=== PATIENT | male | born 1940 | race Caucasian/White ===

== ENCOUNTER 2016-05-12 16:08 | Inpatient (IN) | payer MEDICARE ==
[2016-05-12] MEDS ORDERED: NS 0.9% 1000 ML* 1,000 ML IV ONE (16:30)
--- NOTE | 2016-05-12 17:03 | RAD ---
INDICATION: Head injury. COMPARISON: Comparison is made with a prior CT of the brain from August 29, 2015. TECHNIQUE: Contiguous axial sections of the brain were obtained from the skull base to the vertex without contrast. FINDINGS: The ventricles, cisterns and sulci are enlarged consistent with age-related atrophy. No significant focal abnormality or mass effect is seen. There is no evidence for hemorrhage. No fracture is seen. There is mild mucosal thickening within the left maxillary sinus. The visualized portion of the paranasal sinuses and mastoid air cells otherwise appear clear. IMPRESSION: NO EVIDENCE FOR ACUTE INTRACRANIAL ABNORMALITY.
--- NOTE | 2016-05-12 17:20 | RAD ---
INDICATION: Weakness. COMPARISON: Comparison is made with prior chest x-ray study from August 29, 2015. TECHNIQUE: AP and lateral views of the chest were obtained. FINDINGS: Cardiac and mediastinal contours appear to be within normal limits. The lungs are underinflated. There is a small infiltrate at the right lung base. The lungs are otherwise clear. There is flattening of the diaphragms consistent with chronic obstructive pulmonary disease. No pleural effusion is present. IMPRESSION: 1. EXPIRATORY EXAM, SMALL RIGHT BASILAR FILTRATE. 2. COPD.
[2016-05-12 17:31] LABS: Hematocrit 37 % (42-52); Hemoglobin 12.3 g/dl (14.0-18.0); Mean Corpuscular HGB Conc 33 g/dl (31-36); Mean Corpuscular Hemoglobin 29 pg (27-31); Mean Corpuscular Volume 88 fL (80-94); Mean Platelet Volume 7 um3 (7.4-10.4); Red Cell Distribution Width 14 % (10.5-15); White Blood Count 9.6 10^3/ul (3.5-10.8)
[2016-05-12] MEDS ORDERED: Levofloxacin 750 MG IVPREMIX(* 750 MG/150 ML BAG IVPB ONE (17:37)
[2016-05-12 17:46] LABS: Albumin 3.8 g/dL (3.2-5.2); BUN/Creatinine Ratio 12.5 (8-20); Calcium 9.5 mg/dL (8.6-10.3); EGFR African American 48.9 (>60); Globulin 2.6 g/dL (2-4); Magnesium 1.9 mg/dL (1.9-2.7); Potassium 4.6 mmol/L (3.5-5.0); Total Bilirubin 0.4 mg/dL (0.2-1.0); Total Protein 6.4 g/dL (6.4-8.9)
[2016-05-12 18:13] LABS: TSH (Thyroid Stimulating Horm) 1.35 mcIU/mL (0.34-5.60)
--- NOTE | 2016-05-12 18:24 | RAD ---
INDICATION: Bilateral ankle injury. TECHNIQUE: 3 views of both ankles were obtained. FINDINGS: Right ankle: There is mild lateral soft tissue swelling. The bones are in normal alignment. No fracture is seen. Left ankle: There is a nondisplaced fracture of the posterior malleolus. There is widening of the medial ankle mortise. IMPRESSION: THERE IS A NONDISPLACED FRACTURE OF THE POSTERIOR MALLEOLUS OF THE LEFT ANKLE. THERE IS ALSO WIDENING OF THE MEDIAL ANKLE MORTISE OF THE LEFT ANKLE.
[2016-05-12] MEDS ORDERED: oxyCODONE TAB* 5 MG TAB PO ONE (18:27)
--- NOTE | 2016-05-12 19:40 | RAD ---
INDICATION: Left hip pain. COMPARISON: Comparison is made with a prior x-ray study of the left hip from April 21, 2016. TECHNIQUE: An AP view of the pelvis and frontal and lateral views of the left hip were obtained. FINDINGS: The patient is status post total left hip replacement surgery. The bones and prostheses are in normal alignment. No fracture is seen. There is moderate osteoarthritic change in the right hip. IMPRESSION: STATUS POST TOTAL LEFT HIP REPLACEMENT SURGERY, NO EVIDENCE FOR ACUTE FINDING.
[2016-05-12] MEDS ORDERED: Tetan/Diph/Pertus SYR(Tdap)* 0.5 ML SYR(BOOSTRIX) use SYR IM ONE (19:46)
[2016-05-12] MEDS ORDERED: Cyclobenzaprine TAB* 10 MG PO PRN (19:49)
[2016-05-12] MEDS ORDERED: Acetaminophen TAB* 325 MG PO PRN (19:53)
[2016-05-12] MEDS ORDERED: Albuterol HFA INHALER* 8 gm MDI INH PRN (19:53)
[2016-05-12] MEDS ORDERED: Docusate CAP* 100 MG PO SCH (21:00)
--- NOTE | 2016-05-12 21:20 | ED ---
Ke Berry Billy, scribed for Sean Pineda MD on 05/12/16 at 1633 . Head Injury - HPI Summary HPI Summary: Patient is a 75 year-old male coming to [facility] with a head injury following a mechanical fall half an hour [employer]. He states that he was in Dr. Alejandra's office ( urology) for a follow-up appointment when he tried to stand and then had a sudden onset of LLE weakness. He states that he has had generalized weakness, unsteady gait, and an inability to ambulate well in the last several weeks. He denies any CP, SOB, abd pain, or fevers/chills. He recently saw Dr. Benjamin in the wound clinic for a chronic wound on the RLE. Positive anticoag use. - History Of Current Complaint Chief Complaint: EDHeadInjury Stated Complaint: FALL/HEAD INJURY Time Seen by Provider: 05/12/16 16:15 Hx Obtained From: Patient Onset/Duration: Started Minutes Ago Onset of Pain: Immediate Severity Currently: Moderate Severity Initially: Moderate Pain Intensity: 4 Pain Scale Used: 0-10 Numeric Aggravating Factor(s): Other: - none Alleviating Factor(s): Other: - none Associated Signs And Symptoms: Other: - weakness, unsteady gait, difficult ambulating - Allergies/Home Medications Allergies/Adverse Reactions: Allergies Allergy/AdvReac Type Severity Reaction Status Date / Time Cephalexin [From Keflex] Allergy Intermediate GI Upset Verified 05/12/16 16:29 BANANAS Allergy Mild See Comment Uncoded 05/12/16 16:29 WALNUTS Allergy Mild See Comment Uncoded 05/12/16 16:29 Home Medications: Home Medications Acetaminophen [Tylenol] 650 mg PO Q6H PRN 05/12/16 [History Confirmed 05/12/16] Aspirin Low Dose CHEW TAB* [Aspirin Low Dose TAB*] 81 mg PO BEDTIME 05/12/16 [ History Confirmed 05/12/16] Carboxymethylcellulose-Glyceri [Refresh Optive 0.5-0.9 %] 1 drop BOTH EYES DAILY PRN 05/12/16 [History Confirmed 05/12/16] Cyclobenzaprine TAB* [Flexeril TAB*] 10 mg PO TID PRN 05/12/16 [History Confirmed 05/12/16] Cyclosporine 0.05% OPHTH (NF) [Restasis 0.05% OPHTH] 1 drop BOTH EYES BID [History Confirmed 05/12/16] Ferrous Sulfate TAB* 325 mg PO BEDTIME 05/12/16 [History Confirmed 05/12/16] Mometasone Furoate 1 apply TOPICAL DAILY 05/12/16 [History Confirmed 05/12/16] Nystatin (Topical) [Nystatin] 1 apply TOPICAL TID 05/12/16 [History Confirmed ] Cmoee-2-Zrtv Ethyl Esters (NF) [Lovaza (NF)] 1 cap PO BID 05/12/16 [History Confirmed 05/12/16] Pentoxifylline CR TAB* [TRENtal CR TAB*] 400 mg PO TID 05/12/16 [History Confirmed 05/12/16] Sennosides-Docusate Sodium [Senna-S 8.6-50 mg] 2 tab PO BEDTIME 05/12/16 [ History Confirmed 05/12/16] Silodosin(NF) [Rapaflo(NF)] 8 mg PO BEDTIME 05/12/16 [History Confirmed 05/12/16 ] Sulfamethox/Trimethoprim DS* [Bactrim DS 800/160 TAB*] 1 tab PO BID 05/12/16 [ History Confirmed 05/12/16] PMH/Surg Hx/FS Hx/Imm Hx Endocrine/Hematology History: Reports: Hx Diabetes, Hx Thyroid Disease Cardiovascular History: Reports: Hx Angina, Hx Angioplasty, Hx Coronary Artery Disease, Hx Hypercholesterolemia, Hx Hypertension, Other Cardiovascular Problems /Disorders - HISTORY OF ATRIAL FIBRILLARION Denies: Hx Congestive Heart Failure, Hx Myocardial Infarction, Hx Valvular Heart Disease Respiratory History: Reports: Hx Chronic Obstructive Pulmonary Disease (COPD), Hx Sleep Apnea Denies: Hx Asthma GI History: Reports: Hx Gall Bladder Disease - removed, Hx Gastroesophageal Reflux Disease, Hx Hiatal Hernia, Hx Ulcer, Other GI Disorders - Barretts esophagus History: Denies: Hx Renal Disease Musculoskeletal History: Reports: Hx Arthritis - ARHTHRITIS, Hx Rheumatoid Arthritis, Hx Osteoporosis Sensory History: Reports: Hx Cataracts - RIGHT EYE, Hx Contacts or Glasses Denies: Hx Hearing Aid Opthamlomology History: Reports: Hx Cataracts - RIGHT EYE, Hx Contacts or Glasses Neurological History: Reports: Other Neuro Impairments/Disorders - diabetic neuropathy (feet) - Cancer History Cancer Type, 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 - Surgical History Surgery Procedure, Year, and Place: 10 CARDIAC STENTS, CHOLECYSTECTOMY, APPENDECTOMY, left hip replacement, ESOPHAGEAL CA TUMOR REMOVED 2015 Hx Anesthesia Reactions: No - Immunization History Date of Tetanus Vaccine: ukwn Infectious Disease History: Yes Infectious Disease History: Reports: Hx Hepatitis - CURED Denies: Hx Clostridium Difficile, Hx Human Immunodeficiency Virus (HIV), Hx of Known/Suspected MRSA, Hx Shingles, Hx Tuberculosis, Hx Known/Suspected VRE, Hx Known/Suspected VRSA, History Other Infectious Disease, Traveled Outside the [place] in Last 30 Days - Family History Known Family History: Positive: None - Social History Alcohol Use: Rare Substance Use Type: Reports: None Smoking Status (MU): Former Smoker Type: Cigarettes Amount Used/How Often: 1.5ppd Length of Time of Smoking/Using Tobacco: 50 years Have You Smoked in the Last Year: No Review of Systems Negative: Fever, Chills Negative: Chest Pain Negative: Shortness Of Breath Negative: Abdominal Pain Neurological: Other - unsteady gait, difficulty ambulating Positive: Weakness All Other Systems Reviewed And Are Negative: Yes Physical Exam - Summary Physical Exam Summary: VITAL SIGNS: Reviewed. GENERAL: Patient is a well developed and nourished pale male who is lying comfortable in the stretcher. Patient is not in any acute respiratory distress. HEAD AND FACE: Positive l cm superficial laceration in the occipital area. No ecchymosis, hematomas or skull depressions. EYES: PERRLA, EOMI x 2, No injected conjunctiva, no nystagmus. EARS: Hearing grossly intact. Ear canals and tympanic membranes are within normal limits. MOUTH: Oropharynx within normal limits. NECK: Supple, trachea is midline, no adenopathy, no JVD, no carotid bruit, no c- spine tenderness, neck with full ROM. CHEST: Symmetric, no tenderness at palpation LUNGS: Clear to auscultation bilaterally. No wheezing or crackles. CVS: Regular rate and rhythm, S1 and S2 present, no murmurs or gallops appreciated. ABDOMEN: Soft, non-tender. No rebound no guarding, and no masses palpated. Bowel sounds are normal. EXTREMITIES: right LE with a diabetic ulcer and its C/D/I. left ankle with decrease ROM secondary to pain. NEURO: Alert and oriented x 3. No acute neurological deficits. Speech is normal and follows commands. SKIN: Dry and warm Triage Information Reviewed: Yes Vital Signs On Initial Exam: Initial Vitals Temp Pulse Resp BP Pulse Ox 97.5 F 75 16 116/60 95 05/12/16 16:22 05/12/16 16:22 05/12/16 16:22 05/12/16 16:22 05/12/16 16:22 Vital Signs Reviewed: Yes Procedures - Procedure Summary Procedure Summary: Left ankle splint. After the splint, NV intact. Also: 4 jenn in the laceration in the skull. Diagnostics - Vital Signs Vital Signs Temp Pulse Resp BP Pulse Ox 05/12/16 16:22 97.5 F 75 16 116/60 95 - Laboratory Lab Results: Lab Results 05/12/16 05/12/16 05/12/16 Range/Units 17:15 17:15 17:15 WBC 9.6 (3.5-10.8) 10^3/ul RBC 4.20 (4.0-5.4) 10^6/ul Hgb 12.3 L (14.0-18.0) g/dl Hct 37 L (42-52) % MCV 88 (80-94) fL MCH 29 (27-31) pg MCHC 33 (31-36) g/dl RDW 14 (10.5-15) % Plt Count 233 (150-450) 10^3/ul MPV 7 L (7.4-10.4) um3 Neut % (Auto) 81.9 (38-83) % Lymph % (Auto) 9.4 L (25-47) % [place] % (Auto) 6.3 (1-9) % Eos % (Auto) 1.6 (0-6) % Baso % (Auto) 0.8 (0-2) % Absolute Neuts (auto) 7.9 H (1.5-7.7) 10^3/ul Absolute Lymphs (auto) 0.9 L (1.0-4.8) 10^3/ul Absolute Monos (auto) 0.6 (0-0.8) 10^3/ul Absolute Eos (auto) 0.2 (0-0.6) 10^3/ul Absolute Basos (auto) 0.1 (0-0.2) 10^3/ul Absolute Nucleated RBC 0.01 10^3/ul Nucleated RBC % 0.1 INR (Anticoag Therapy) (0.89-1.11) Sodium 132 L (133-145) mmol/L Potassium 4.6 (3.5-5.0) mmol/L Chloride 102 (101-111) mmol/L Carbon Dioxide 24 (22-32) mmol/L Anion Gap 6 (2-11) mmol/L BUN 22 (6-24) mg/dL Creatinine 1.76 H (0.67-1.17) mg/dL Est GFR ( Amer) 48.9 (>60) Est GFR (Non-Af Amer) 38.0 (>60) BUN/Creatinine Ratio 12.5 (8-20) Glucose 156 H (70-100) mg/dL Lactic Acid 1.5 (0.5-2.0) mmol/L Calcium 9.5 (8.6-10.3) mg/dL Magnesium 1.9 (1.9-2.7) mg/dL Total Bilirubin 0.40 (0.2-1.0) mg/dL AST 18 (13-39) U/L ALT 23 (7-52) U/L Alkaline Phosphatase 55 (34-104) U/L Troponin I 0.00 (<0.04) ng/mL B-Natriuretic Peptide ( - 100) pg/mL Total Protein 6.4 (6.4-8.9) g/dL Albumin 3.8 (3.2-5.2) g/dL Globulin 2.6 (2-4) g/dL Albumin/Globulin Ratio 1.5 (1-3) TSH 1.35 (0.34-5.60) mcIU/mL 05/12/16 05/12/16 Range/Units 17:15 17:15 WBC (3.5-10.8) 10^3/ul RBC (4.0-5.4) 10^6/ul Hgb (14.0-18.0) g/dl Hct (42-52) % MCV (80-94) fL MCH (27-31) pg MCHC (31-36) g/dl RDW (10.5-15) % Plt Count (150-450) 10^3/ul MPV (7.4-10.4) um3 Neut % (Auto) (38-83) % Lymph % (Auto) (25-47) % [place] % (Auto) (1-9) % Eos % (Auto) (0-6) % Baso % (Auto) (0-2) % Absolute Neuts (auto) (1.5-7.7) 10^3/ul Absolute Lymphs (auto) (1.0-4.8) 10^3/ul Absolute Monos (auto) (0-0.8) 10^3/ul Absolute Eos (auto) (0-0.6) 10^3/ul Absolute Basos (auto) (0-0.2) 10^3/ul Absolute Nucleated RBC 10^3/ul Nucleated RBC % INR (Anticoag Therapy) 2.49 H (0.89-1.11) Sodium (133-145) mmol/L Potassium (3.5-5.0) mmol/L Chloride (101-111) mmol/L Carbon Dioxide (22-32) mmol/L Anion Gap (2-11) mmol/L BUN (6-24) mg/dL Creatinine (0.67-1.17) mg/dL Est GFR ( Amer) (>60) Est GFR (Non-Af Amer) (>60) BUN/Creatinine Ratio (8-20) Glucose (70-100) mg/dL Lactic Acid (0.5-2.0) mmol/L Calcium (8.6-10.3) mg/dL Magnesium (1.9-2.7) mg/dL Total Bilirubin (0.2-1.0) mg/dL AST (13-39) U/L ALT (7-52) U/L Alkaline Phosphatase (34-104) U/L Troponin I (<0.04) ng/mL B-Natriuretic Peptide 45 ( - 100) pg/mL Total Protein (6.4-8.9) g/dL Albumin (3.2-5.2) g/dL Globulin (2-4) g/dL Albumin/Globulin Ratio (1-3) TSH (0.34-5.60) mcIU/mL Result Diagrams: 05/12/16 17:15 05/12/16 17:15 Lab Statement: Any lab studies that have been ordered have been reviewed, and results considered in the medical decision making process. - Radiology CXR Radiology Interpretation Completed By: Radiologist - 1. EXPIRATORY EXAM, SMALL RIGHT BASILAR FILTRATE. 2. COPD. ankle xray Radiology Interpretation Completed By: Radiologist - THERE IS A NONDISPLACED FRACTURE OF THE POSTERIOR MALLEOLUS OF THE LEFT ANKLE. THERE IS ALSO WIDENING OF THE MEDIAL ANKLE MORTISE OF THE LEFT ANKLE. hip xray Radiology Interpretation Completed By: Radiologist - STATUS POST TOTAL LEFT HIP REPLACEMENT SURGERY, NO EVIDENCE FOR ACUTE FINDING. - CT brain CT Interpretation: No Acute Changes CT Interpretation Completed By: Radiologist - EKG 1655 EKG Interpretation: NSR 71 bpm, no ST elevation, diffuse ST abnormalities. Re-Evaluation - Re-Evaluation First Eval Re-Evaluation Time: 18:48 Comment: See procedure note for more details. Patient is now c/o left hip/ pelvic pain. Head Injury Course/Dx Assessment/Plan: Patient is a 75 year-old male coming to [facility] with a head injury following a mechanical fall half an hour [employer]. He states that he was in Dr. Alejandra's office (urology) for a follow-up appointment when he tried to stand and then had a sudden onset of LLE weakness. He states that he has had generalized weakness, unsteady gait, and an inability to ambulate well in the last several weeks. He denies any CP, SOB, abd pain, or fevers/chills. He recently saw Dr. Benjamin in the wound clinic for a chronic wound on the RLE. Positive anticoag use. Bloodwork WNL except for decresaed H&H of 12.3/37. INR is 2.49. Sodium of 132, creatinine 1.76, glucose 156. CT brain shows no acute intracranial pathology. CXR shows right lower lobe infiltrate consistent with pneumonia. Ankle x-ray shows nondisplaced fx of the posterior malleolus with a widening mortise. Pelvic/hip x-ray shows no acute findings. In the ER course, the patient was given IV fluids, the patient was given oxycodone for pain. I placed 4x jenn in the laceration of approximately 1cm in the occipital area. I placed a posterior splint in the LLE since the patient had an ankle fracture. After the splint, I checked the extremity, which was NV intact. The patient has a basleine decreased capillary fill, secondary to peripheral vascular disease. The patient was also complaining of left hip and pelvis pain afterwards, therefore I ordered an x-ray of the hip and pelvis, which showed no acute fractures or dislocations. The patient was also given levaquin for pneumonia. He was also given boostrix for tetanus booster. At this point, I discussed the case with Dr. Mullins (hospitalist) who accepted the patient for admission and further workup and management. He is hemodynamically stable, A&Ox3. - Diagnoses Differential Diagnosis/HQI/PQRI: Cerebral Contusion, Contusion, Hematoma, Intracranial Bleed, Laceration Provider Diagnoses: Accidental fall, Pneumonia, Ankle fracture, Weakness - Physician Notifications Discussed Care Of Patient With: Dr. Mullins (hospitalist) @ 1830: accepts admission. Dr. Hua (orthopedics) @ 195: informed of the patient's presentation, agrees to consult. Discharge - Discharge Plan Condition: Stable Disposition: ADMITTED TO [facility] The documentation as recorded by the Ke candelario Billy accurately reflects the service I personally performed and the decisions made by me, Sean Pineda MD.
[2016-05-12] MEDS: Amiodarone TAB* 200 MG PO SCH (21:33)
[2016-05-12] MEDS: Sulfamethox/Trimethoprim DS 800/160* TAB PO SCH (21:33)
[2016-05-12] MEDS: Finasteride TAB* 5 MG PO SCH (21:33)
[2016-05-12] MEDS: Furosemide TAB* 20 MG PO SCH (21:33)
[2016-05-12] MEDS: Omeprazole CAP* 20 MG PO SCH (21:34)
[2016-05-12] MEDS: LORazepam TAB(*) 1 MG PO SCH (21:34)
[2016-05-12] MEDS: Senna TAB PO SCH (21:34)
[2016-05-12] MEDS: Aspirin Low Dose CHEW TAB* 81 MG PO SCH (21:34)
[2016-05-12] MEDS: Ferrous Sulfate TAB* 325 MG PO SCH (21:34)
[2016-05-12] MEDS: Potassium Chloride LIQUID* 20 MEQ PACKET PO SCH (21:35)
[2016-05-12] MEDS: oxyCODONE TAB* 5 MG TAB PO PRN (21:38)
[2016-05-12] MEDS: Insulin GLARGINE(*) 1 UNITS UNIT SUBCUT SCH (21:57)
[2016-05-12] MEDS: Gemfibrozil TAB* 600 MG PO SCH (21:58)
[2016-05-12] MEDS: Nystatin TOP POWDER* 15 GM BTL TOPICAL SCH (22:00)
[2016-05-12] MEDS: Pentoxifylline CR TAB* 400 MG PO SCH (22:07)
--- NOTE | 2016-05-12 22:32 | HP ---
HISTORY AND PHYSICAL: DATE OF ADMISSION: 05/12/16 PCP: Dr. Cha. CHIEF COMPLAINT: Fall. HISTORY OF PRESENT ILLNESS: Mr. Bryant is a 75-year-old man with a past medical history of AFib, on Coumadin, CAD, status post multiple stents, IBS, esophageal cancer, diabetes, anxiety, COPD, chronic pain, who presents to the hospital after a fall at Dr. Alejandra's clinic. The patient was at a routine followup with Dr. Alejandra today. He stated he was walking across the room to go to sit down when he felt his left leg go out from underneath him. He fell down to the ground striking his head on a cabin on the way down and sustaining a scalp laceration. The patient denied any preceding lightheadedness, dizziness, chest pain, shortness of breath, or palpitations. He had no loss of consciousness. He states he did not have any significant pain initially; however, when EMS was called and they tried to get him into the ambulance, he had significant bilateral lower extremity pain and subsequently more localized to the left ankle and left hip. The patient reports that he was hospitalized in [facility] earlier this year after he had what he calls a left femur fracture as well as subsequently torn his right quadriceps. Since then, he has been mostly house bound and has had fairly significant difficulties ambulating. He has been using a walker, although he states he is still able to get up and down the stairs at home. He reports a mild cough over the last 3 days that has been mostly dry, although he feels like it could be productive if he was able to bring up the phlegm. He has had no recent fever, chills, nausea, vomiting, abdominal pain and has been reporting good p.o. intake. No dysuria. No bright red blood per rectum or melena. In the emergency department, he was found to have a posterior malleolus fracture of the ankle. Remainder of the imaging was negative. PAST MEDICAL HISTORY: CAD, status post multiple stents; AFib, on Coumadin; IBS ; esophageal cancer; diabetes; anxiety; COPD; chronic pain. PAST SURGICAL HISTORY: Left total hip arthroplasty, appendectomy, tonsillectomy , TURP. HOME MEDICATIONS: 1. Aspirin 81 mg by mouth at bedtime. 2. Tylenol 650 mg by mouth every 6 hours as needed for pain. 3. Ferrous sulfate 325 mg by mouth at bedtime. 4. Refresh 1 drop in both eyes daily as needed for dry eyes. 5. Senna 2 tablets by mouth at bedtime. 6. Mometasone 1 application topical daily. 7. Oxycodone 5 to 10 mg by mouth every 4 to 6 hours as needed for pain. 8. Potassium chloride 20 mEq by mouth 2 times daily. 9. Ativan 1 mg by mouth 3 times daily. 10. Pentoxifylline 400 mg by mouth 3 times daily. 11. Flexeril 10 mg by mouth 3 times daily. 12. Restasis 1 drop in both eyes 2 times daily. 13. Nystatin 1 application topical daily. 14. Bactrim 1 tablet by mouth 2 times daily. 15. Lovaza 1 capsule by mouth 2 times daily. 16. Combivent 1 puff inhaled every 6 hours as needed for shortness of breath or wheezing. 17. Finasteride 5 mg by mouth daily. 18. Amiodarone 200 mg by mouth 2 times daily. 19. Lasix 20 mg by mouth 2 times daily. 20. Folate 1 mg by mouth daily. 21. Fluorometholone 0.1% one drop in the left eye 2 times daily. 22. Gemfibrozil 600 mg by mouth 2 times daily. 23. Synthroid 187.5 mcg by mouth daily. 24. Afrin 1 spray nasal as needed for congestion. 25. Nitroglycerin 0.4 mg sublingual as needed for chest pain. 26. Crestor 40 mg by mouth nightly. 27. Protonix 40 mg by mouth 3 times daily. 28. Rapaflo 8 mg by mouth at bedtime. 29. Glipizide 5 mg by mouth 2 times daily. 30. Celecoxib 200 mg by mouth daily. 31. Warfarin, 3-day sequence of 2.5 mg followed by 1.25 mg, then another 1.25 mg. 32. Metanx 25 mg by mouth nightly. 33. Lantus 34 units subcutaneous nightly. ALLERGIES: The patient reports allergy to KEFLEX, causes nausea and vomiting. FAMILY HISTORY: Significant for mother with diabetes and Alzheimer's who at 90. Father with colon cancer. SOCIAL HISTORY: He was a smoker for 40 years about a pack and half per day. Denies any alcohol or illicit drug use. REVIEW OF SYSTEMS: Twelve point review of systems is negative except for that as noted in the HPI. PHYSICAL EXAMINATION GENERAL: The patient is an elderly man, lying in bed, in no apparent distress. VITAL SIGNS: On admission temperature 97.5, heart rate 75, respiratory rate 16 , O2 saturation 95% on room air, blood pressure 116/60. HEENT: Pupils are constricted, slightly reactive to light. Anicteric sclerae. Dry mucous membranes. No cervical adenopathy. LUNGS: Some mild rales in the left base, otherwise clear. CARDIOVASCULAR: Regular rate and rhythm. S1, S2 present. No murmurs, gallops , or rubs. ABDOMEN: Soft, nontender, nondistended. Bowel sounds positive. EXTREMITIES: Bilateral lower extremity edema. Right lower extremity is in a compression stocking. Left lower extremity with Christian wrap and splint in place. SKIN: Warm, dry, well perfused. Did not assess right lower extremity wound. The patient has a scalp laceration, which has been stapled with a small amount of blood oozing. NEUROLOGIC: The patient is alert and oriented x3. No focal neurological deficits. DIAGNOSTIC STUDIES/LAB DATA: White blood cell count of 9.6, hematocrit of 37, platelets of 233. INR of 2.49. Sodium 132, potassium 4.6, chloride 102, carbon dioxide 24, BUN 22, creatinine 1.76, glucose 156. Lactic acid 1.5. Troponin 0.00. LFTs within normal limits. B-natriuretic peptide 45. TSH 1.35. EKG shows normal sinus rhythm with first-degree AV block, no ST changes. CT of the head shows no acute changes. Chest x-ray personally reviewed shows possible right basilar infiltrate. Ankle x-ray shows posterior malleolus nondisplaced fracture. Hip x-ray shows no fracture. ASSESSMENT AND PLAN: Mechanical fall with posterior malleolus fracture and mild acute kidney injury and chronic kidney disease in a 75-year-old male with a past medical history of atrial fibrillation, on Coumadin, coronary artery disease, status post multiple stents, irritable bowel syndrome, esophageal cancer, diabetes, chronic obstructive pulmonary disease, anxiety, and recently diagnosed right lower extremity wound. 1. Ankle fracture. Dr. Pineda contacted Orthopedics. No surgical intervention is necessary at this time. Dr. Pineda splinted the patient in the emergency department, analgesia, PT evaluation. 2. Right lower extremity wound. We will try to obtain wound care dressing recommendations from the wound clinic. The patient was just placed on Bactrim for presumed cellulitis. We will continue this for now. This may be contributing to his elevated creatinine. 3. Questionable pneumonia. The patient's symptoms and labs seem not entirely consistent with pneumonia. He received 1 dose of Levaquin in the emergency department. We will hold on additional antibiotics for now. We will check a procalcitonin. 4. Atrial fibrillation. Continue home Coumadin and amiodarone. 5. History of coronary artery disease. Continue aspirin. We will place the patient on atorvastatin while hospitalized. 6. Benign prostatic hypertrophy. Continue finasteride and Rapaflo. 7. Diabetes. Continue glipizide and home Lantus 34 units subcu nightly. 8. Chronic obstructive pulmonary disease. Continue pentoxifylline and albuterol in place of home Combivent. 9. DVT prophylaxis, Coumadin. 10. Code status. The patient is a full code. Reports that his healthcare proxy is his , Shoaib Bryant, who cab be reached at [phone]. TIME SPENT: Total time spent on this admission was 55 minutes with over half the time spent [id number] with the patient counseling and coordinating care. CC: Dr. Cha * [id number]/CPS #: [id number] [facility]OSPITALAdam
[2016-05-12 23:33] LABS: Urine Bilirubin Negative (Negative); Urine Glucose Negative (Negative); Urine Nitrite Negative (Negative)
[2016-05-13] MEDS: Silodosin(NF) 8 MG CAP PO SCH ×2 (01:49→21:09)
[2016-05-13] MEDS: oxyCODONE TAB* 5 MG TAB PO PRN ×2 (04:51→21:00)
[2016-05-13] MEDS ORDERED: LORazepam TAB(*) 1 MG PO ONE (05:00)
[2016-05-13] MEDS: Levothyroxine TAB* 75 MCG TAB PO SCH (06:00)
[2016-05-13 06:36] LABS: BUN/Creatinine Ratio 10.6 (8-20); Calcium 9.1 mg/dL (8.6-10.3); EGFR African American 45.3 (>60); EGFR Non-African American 35.3 (>60); Potassium 4.2 mmol/L (3.5-5.0)
[2016-05-13] MEDS: Potassium Chloride LIQUID* 20 MEQ PACKET PO SCH ×2 (08:11→20:52)
[2016-05-13] MEDS: Pentoxifylline CR TAB* 400 MG PO SCH ×3 (08:11→21:10)
[2016-05-13] MEDS: celeCOXIB CAP* 200 MG PO SCH (08:12)
[2016-05-13] MEDS: LORazepam TAB(*) 1 MG PO SCH ×3 (08:12→20:48)
[2016-05-13] MEDS: Furosemide TAB* 20 MG PO SCH ×2 (08:12→20:47)
[2016-05-13] MEDS: Sulfamethox/Trimethoprim DS 800/160* TAB PO SCH ×2 (08:12→20:47)
[2016-05-13] MEDS: Omeprazole CAP* 20 MG PO SCH ×2 (08:12→20:47)
[2016-05-13] MEDS: Gemfibrozil TAB* 600 MG PO SCH ×2 (08:12→21:10)
[2016-05-13] MEDS: Folic Acid TAB* 1 MG PO SCH (08:12)
[2016-05-13] MEDS: glipiZIDE TAB.XL* 5 MG PO SCH ×2 (08:13→17:25)
[2016-05-13] MEDS: Amiodarone TAB* 200 MG PO SCH ×2 (08:14→20:47)
[2016-05-13] MEDS: Nystatin TOP POWDER* 15 GM BTL TOPICAL SCH ×3 (08:14→21:10)
--- NOTE | 2016-05-13 08:15 | RAD ---
HISTORY: Left fibular fracture COMPARISONS: Left ankle performed May 12, 2016 VIEWS: 4, Frontal and lateral views of the left ankle FINDINGS: BONE DENSITY: Normal. BONES: There is nondisplaced fracture of the medial malleolus. There is a nondisplaced fracture of the posterior tibia. There is a nondisplaced oblique fracture of the proximal fibula. The patient is status post internal fixation of the first metatarsal JOINTS: There is no arthropathy. ALIGNMENT: There is no dislocation. SOFT TISSUES: There is peripheral arterial calcification OTHER FINDINGS: None. IMPRESSION: NONDISPLACED FRACTURES OF THE PROXIMAL LEFT FIBULA AND THE DISTAL LEFT TIBIA
--- NOTE | 2016-05-13 10:28 | PN ---
Subjective Date of Service: 05/13/16 Interval History: Patient seen this morning. Did not sleep well but otherwise no complaints. No fever or chills. Understands he has additional fractures noted on this mornings imaging that may need surgical intervention but this needs to be clarified with Dr. Hua. Family History: Unchanged from Admission Social History: Unchanged from Admission Past Medical History: Unchanged from Admission Objective Active Medications: Acetaminophen (Tylenol Tab*) 650 mg PO Q6H PRN Albuterol (Ventolin Hfa Inhaler*) 2 puff INH Q4H PRN Amiodarone HCl (Cordarone Tab*) 200 mg PO BID MARK Aspirin (Aspirin Low Dose Tab*) 81 mg PO BEDTIME MARK Atorvastatin Calcium (Lipitor*) 80 mg PO QPM MARK Celecoxib (Celebrex Cap*) 200 mg PO QAM MARK Cyclobenzaprine HCl (Flexeril Tab*) 10 mg PO TID PRN Docusate Sodium (Colace Cap*) 109 mg PO BEDTIME MARK Ferrous Sulfate (Ferrous Sulfate Tab*) 325 mg PO BEDTIME MARK Finasteride (Proscar Tab*) 5 mg PO QPM MARK Folic Acid (Folvite Tab*) 1 mg PO QAM MARK Furosemide (Lasix Tab*) 20 mg PO BID MARK Gemfibrozil (Lopid Tab*) 600 mg PO BID MARK Glipizide (Glucotrol Xl*) 5 mg PO BID WITH MEALS MARK Insulin Glargine (Lantus(*)) 34 units SUBCUT 1700 MARK Levothyroxine Sodium (Synthroid Tab*) 187.5 mcg PO 0600 MARK Lorazepam (Ativan Tab(*)) 1 mg PO TID MARK Nystatin (Nystatin Top Powder*) 1 applic TOPICAL TID MARK Omeprazole (Prilosec Cap*) 20 mg PO BID MARK Oxycodone HCl (Roxycodone Tab*) 5 mg PO Q6H PRN Pentoxifylline (Trental Cr Tab*) 400 mg PO TID MARK Potassium Chloride (Klor-Con Liquid*) 20 meq PO BID MARK Senna (Senokot Tab*) 2 tab PO BEDTIME MARK Silodosin (Rapaflo(Nf)) 8 mg PO BEDTIME MARK Trimethoprim/Sulfamethoxazole (Bactrim Ds 800/160 Tab*) 1 tab PO BID MARK Warfarin Sodium (Coumadin Tab(*)) 1.25 mg PO DAILY MARK Vital Signs 05/12/16 05/12/16 05/12/16 18:49 19:00 20:00 Temperature Pulse Rate 72 71 68 Respiratory 21 22 24 Rate Blood Pressure 131/71 93/79 (mmHg) O2 Sat by Pulse 94 92 91 Oximetry 05/12/16 05/12/16 05/12/16 21:00 21:34 21:38 Temperature 97.6 F Pulse Rate 70 Respiratory 18 18 18 Rate Blood Pressure 127/71 (mmHg) O2 Sat by Pulse 96 Oximetry 05/12/16 05/12/16 05/13/16 23:23 23:34 00:12 Temperature 97.7 F Pulse Rate 68 Respiratory 20 20 20 Rate Blood Pressure 123/66 (mmHg) O2 Sat by Pulse 94 Oximetry Oxygen Devices in Use Now: None Appearance: Elderly, M, laying in bed in NAD Eyes: No Scleral Icterus Ears/Nose/Mouth/Throat: Mucous Membranes Moist Neck: NL Appearance and Movements; NL JVP Respiratory: Symmetrical Chest Expansion and Respiratory Effort, - - Mild LLL rales, otherwise clear Cardiovascular: NL Sounds; No Murmurs; No JVD, RRR Abdominal: - - Mild distension, non-tender, BS+ Lymphatic: No Cervical Adenopathy Extremities: - - Mild B/L LE edema, LLE in ALE wrap/sling, RLE in compression stocking Skin: - - Did not assess RLE wound Neurological: Alert and Oriented x 3 Result Diagrams: 05/12/16 17:15 05/13/16 06:07 Additional Lab and Data: Microbiology and Other Data: Microbiology 05/12/16 19:54 Nasal Screen MRSA (PCR)(VERONICA) - Final Nasal Mrsa Negative Assess/Plan/Problems-Billing Assessment: Mechanical fall with multiple LLE fractures (fibula, tibia, posterior malleolus ) in a 75 yo M with hx of AFib on coumadin, CAD s/p multiple stents, esophageal cancer, COPD, IBS, anxiety, CKD and recently diagnosed RLE wound - Patient Problems (1) Closed fracture of left lower extremity Current Visit: Yes Comment: Initial imaging showed posterior malleolus fracture, patient evaluated by Dr. Hua and LLE x-ray showed distal fibula and tibia fx as well. Will touch base with Dr. Hua to see if patient needs operative intervention. NWB for now. Continue analgesia. (2) Wound of right lower extremity Current Visit: Yes Comment: Dressing as per wound clinic, will evaluate at next dressing change. Continue outpatient Bactrim for now. (3) Atrial fibrillation Current Visit: No Comment: Continue Amiodarone. INR supratherapeutic, will hold Coumadin for now (4) CAD (coronary artery disease) Current Visit: No Comment: Continue ASA, statin (5) CKD (chronic kidney disease) Current Visit: Yes Comment: Suspect creatinine is elevated due to Bactrim. Continue to monitor (6) BPH (benign prostatic hyperplasia) Current Visit: Yes Comment: Continue finasteride and rapaflo (7) Diabetes mellitus Current Visit: No Comment: Continue Lantus and Glipizide (8) COPD (chronic obstructive pulmonary disease) Current Visit: Yes Comment: Continue albuterol, pentoxyfilline (9) DVT prophylaxis Current Visit: No Comment: Coumadin
[2016-05-13] MEDS ORDERED: Warfarin TAB(*) 2.5 MG PO SCH (17:00)
[2016-05-13] MEDS: Insulin GLARGINE(*) 1 UNITS UNIT SUBCUT SCH (17:24)
[2016-05-13] MEDS: Atorvastatin* 80 MG TAB PO SCH (17:25)
[2016-05-13] MEDS: Finasteride TAB* 5 MG PO SCH (17:25)
[2016-05-13] MEDS: Senna TAB PO SCH (20:46)
[2016-05-13] MEDS: Ferrous Sulfate TAB* 325 MG PO SCH (20:47)
[2016-05-13] MEDS: Docusate CAP* 100 MG PO SCH (20:47)
[2016-05-13] MEDS: Aspirin Low Dose CHEW TAB* 81 MG PO SCH (20:48)
[2016-05-14] MEDS: Levothyroxine TAB* 75 MCG TAB PO SCH (06:10)
[2016-05-14 06:45] LABS: BUN/Creatinine Ratio 10.1 (8-20); Calcium 9.5 mg/dL (8.6-10.3); EGFR African American 42.5 (>60)
[2016-05-14] MEDS: LORazepam TAB(*) 1 MG PO SCH ×4 (07:18→21:09)
[2016-05-14] MEDS: Potassium Chloride LIQUID* 20 MEQ PACKET PO SCH ×2 (08:45→21:10)
[2016-05-14] MEDS ORDERED: Polyethylene Glycol 3350* 17 GM PACKET PO PRN (08:45)
[2016-05-14] MEDS ORDERED: Magnesium Hydroxide LIQ* 30 ML UDC PO PRN (08:45)
[2016-05-14] MEDS: Furosemide TAB* 20 MG PO SCH (08:46)
[2016-05-14] MEDS: Gemfibrozil TAB* 600 MG PO SCH ×2 (08:46→21:08)
[2016-05-14] MEDS: Amiodarone TAB* 200 MG PO SCH ×2 (08:46→21:08)
[2016-05-14] MEDS: glipiZIDE TAB.XL* 5 MG PO SCH ×2 (08:46→17:10)
[2016-05-14] MEDS: celeCOXIB CAP* 200 MG PO SCH (08:46)
[2016-05-14] MEDS: Omeprazole CAP* 20 MG PO SCH ×2 (08:46→21:08)
[2016-05-14] MEDS: Sulfamethox/Trimethoprim DS 800/160* TAB PO SCH (08:47)
[2016-05-14] MEDS: Pentoxifylline CR TAB* 400 MG PO SCH ×3 (08:47→21:09)
[2016-05-14] MEDS: Folic Acid TAB* 1 MG PO SCH (08:47)
[2016-05-14] MEDS: Nystatin TOP POWDER* 15 GM BTL TOPICAL SCH ×3 (08:47→21:10)
--- NOTE | 2016-05-14 10:52 | RAD ---
Indication: Evaluate for hydronephrosis, renal failure. Real-time sonography of the kidneys was performed. The right kidney measures 12.0 x 5.5 x 5.3 cm. There is a inferior medial cyst in the right kidney measuring up to 23 mm. No hydronephrosis is noted. Left kidney measures 11.6 x 5.8 x 6.2 cm with no hydronephrosis. The urinary bladder demonstrates a prevoid volume of 1019 mL. Of post void residual could not be obtained as the patient could not void. Bladder wall measures 4 mm. Diverticula is noted in the left urinary bladder measuring 2.8 x 3.0 x 2.2 cm. Patient has a history of TURP. IMPRESSION: Patient could not void and there is urinary retention with 1019 mL of fluid in the urinary bladder. No hydronephrosis of either kidney is noted.
[2016-05-14 12:21] LABS: Renal Sodium Excretion 1.75 %
[2016-05-14] MEDS ORDERED: Bisacodyl EC TAB* 5 MG PO ONE (12:32)
[2016-05-14] MEDS: Tamsulosin CAP* 0.4 MG PO SCH (13:13)
--- NOTE | 2016-05-14 14:23 | PN ---
Subjective Date of Service: 05/14/16 Interval History: Patient seen this afternoon with present. He is concerned that he has not moved his bowels in a few days now and is feeling constipated. Otherwise denies SOB, chest pain. Ankle is not bothering him. Was retaining urine on US this AM and again when bladder scanned. Has not been getting Rapaflo here. Family History: Unchanged from Admission Social History: Unchanged from Admission Past Medical History: Unchanged from Admission Objective Active Medications: Acetaminophen (Tylenol Tab*) 650 mg PO Q6H PRN Albuterol (Ventolin Hfa Inhaler*) 2 puff INH Q4H PRN Amiodarone HCl (Cordarone Tab*) 200 mg PO BID MARK Aspirin (Aspirin Low Dose Tab*) 81 mg PO BEDTIME MARK Atorvastatin Calcium (Lipitor*) 80 mg PO QPM MARK Celecoxib (Celebrex Cap*) 200 mg PO QAM MARK Cyclobenzaprine HCl (Flexeril Tab*) 10 mg PO TID PRN Docusate Sodium (Colace Cap*) 100 mg PO BEDTIME MARK Doxycycline Hyclate (Vibramycin Cap(*)) 100 mg PO BID MARK Ferrous Sulfate (Ferrous Sulfate Tab*) 325 mg PO BEDTIME MARK Finasteride (Proscar Tab*) 5 mg PO QPM MARK Folic Acid (Folvite Tab*) 1 mg PO QAM MARK Furosemide (Lasix Tab*) 20 mg PO BID MARK Gemfibrozil (Lopid Tab*) 600 mg PO BID MARK Glipizide (Glucotrol Xl*) 5 mg PO BID WITH MEALS MARK Insulin Glargine (Lantus(*)) 34 units SUBCUT 1700 MARK Levothyroxine Sodium (Synthroid Tab*) 187.5 mcg PO 0600 MARK Lorazepam (Ativan Tab(*)) 1 mg PO QID MARK Magnesium Hydroxide (Milk Of Magnesia Liq*) 30 ml PO Q6H PRN Nystatin (Nystatin Top Powder*) 1 applic TOPICAL TID MARK Omeprazole (Prilosec Cap*) 20 mg PO BID MARK Oxycodone HCl (Roxycodone Tab*) 5 mg PO Q6H PRN Pentoxifylline (Trental Cr Tab*) 400 mg PO TID MARK Polyethylene Glycol/Electrolytes (Miralax*) 17 gm PO DAILY PRN Potassium Chloride (Klor-Con Liquid*) 20 meq PO BID MARK Senna (Senokot Tab*) 2 tab PO BEDTIME MARK Tamsulosin HCl (Flomax Cap*) 0.4 mg PO DAILY [facility] Vital Signs 05/13/16 05/13/16 05/13/16 15:01 16:46 20:00 Temperature Pulse Rate 68 Respiratory 18 18 Rate Blood Pressure 119/57 (mmHg) O2 Sat by Pulse 93 Oximetry 05/13/16 05/13/16 05/13/16 20:48 21:00 22:48 Temperature Pulse Rate Respiratory 17 18 18 Rate Blood Pressure (mmHg) O2 Sat by Pulse Oximetry 05/13/16 05/14/16 05/14/16 23:00 03:57 07:18 Temperature 97.3 F Pulse Rate 72 Respiratory 18 18 18 Rate Blood Pressure 141/66 (mmHg) O2 Sat by Pulse 94 Oximetry 05/14/16 05/14/16 05/14/16 08:00 09:18 09:27 Temperature Pulse Rate 70 Respiratory 18 18 14 Rate Blood Pressure (mmHg) O2 Sat by Pulse 92 Oximetry 05/14/16 13:04 Temperature Pulse Rate Respiratory 20 Rate Blood Pressure (mmHg) O2 Sat by Pulse Oximetry Oxygen Devices in Use Now: None Appearance: Elderly, M, laying in bed in NAD Eyes: No Scleral Icterus Ears/Nose/Mouth/Throat: Mucous Membranes Moist Neck: NL Appearance and Movements; NL JVP Respiratory: Symmetrical Chest Expansion and Respiratory Effort, Clear to Auscultation Cardiovascular: NL Sounds; No Murmurs; No JVD, RRR Abdominal: - - Soft, distended, non-tender, BS+ Lymphatic: No Cervical Adenopathy Extremities: - - Minimal LE edema Skin: - - RLE with 2-3 shallow ulcerations over lateral and posterior calf, some mild purulence, minimal erythema Neurological: Alert and Oriented x 3 Result Diagrams: 05/12/16 17:15 05/14/16 08:43 Additional Lab and Data: Microbiology and Other Data: Assess/Plan/Problems-Billing Assessment: Mechanical fall with multiple LLE fractures (fibula, tibia, posterior malleolus ) in a 75 yo M with hx of AFib on coumadin, CAD s/p multiple stents, esophageal cancer, COPD, IBS, anxiety, CKD and recently diagnosed RLE wound - Patient Problems (1) Closed fracture of left lower extremity Current Visit: Yes Comment: Initial imaging showed posterior malleolus fracture, patient evaluated by Dr. Hua and LLE x-ray showed distal fibula and tibia fx as well. Spoke with Dr. Hua who states patient does not need surgery, continue splint/NWB for now and Dr. Hua will cast the patient prior to discharge. Continue analgesia. PT recommending leno for now, will need rehab. (2) CKD (chronic kidney disease) Current Visit: Yes Comment: Creatinine elevated. ?due to Bactrim, urinary retention. Will change Bactrim to Doxy. Hold Lasix. FeNa >1% in setting of Lasix so not neccesarily reliable. Will straight cath now and check bladder scan q8h (3) Wound of right lower extremity Current Visit: Yes Comment: Still with some signs of possible infection, spoke with Dr. Benjamin who is agreeable to change to Doxy in setting of elevated creatinine. Dressing as per wound clinic (4) Atrial fibrillation Current Visit: No Comment: Continue Amiodarone. INR supratherapeutic, will hold Coumadin for now (5) CAD (coronary artery disease) Current Visit: No Comment: Continue ASA, statin (6) BPH (benign prostatic hyperplasia) Current Visit: Yes Comment: Continue finasteride and tamsulosin (7) Diabetes mellitus Current Visit: No Comment: Continue Lantus and Glipizide (8) COPD (chronic obstructive pulmonary disease) Current Visit: Yes Comment: Continue albuterol, pentoxyfilline (9) DVT prophylaxis Current Visit: No Comment: Coumadin Status and Disposition: Will need rehab
[2016-05-14] MEDS: oxyCODONE TAB* 5 MG TAB PO PRN (15:45)
[2016-05-14] MEDS: Atorvastatin* 80 MG TAB PO SCH (17:09)
[2016-05-14] MEDS: Insulin GLARGINE(*) 1 UNITS UNIT SUBCUT SCH (17:10)
[2016-05-14] MEDS: Finasteride TAB* 5 MG PO SCH (17:10)
[2016-05-14] MEDS: Docusate CAP* 100 MG PO SCH (21:08)
[2016-05-14] MEDS: Ferrous Sulfate TAB* 325 MG PO SCH (21:08)
[2016-05-14] MEDS: Aspirin Low Dose CHEW TAB* 81 MG PO SCH (21:08)
[2016-05-14] MEDS: Senna TAB PO SCH (21:09)
[2016-05-14] MEDS: DOXYcycline CAP(*) 100 MG PO SCH (21:09)
[2016-05-15] MEDS: oxyCODONE TAB* 5 MG TAB PO PRN (00:23)
[2016-05-15] MEDS ORDERED: LORazepam TAB(*) 1 MG PO ONE (02:00)
[2016-05-15] MEDS: Levothyroxine TAB* 75 MCG TAB PO SCH (05:49)
[2016-05-15 06:14] LABS: BUN/Creatinine Ratio 10.7 (8-20); Calcium 9.3 mg/dL (8.6-10.3); EGFR African American 43.2 (>60); EGFR Non-African American 33.6 (>60); Potassium 4.2 mmol/L (3.5-5.0)
[2016-05-15] MEDS: DOXYcycline CAP(*) 100 MG PO SCH ×2 (08:40→20:39)
[2016-05-15] MEDS: Potassium Chloride LIQUID* 20 MEQ PACKET PO SCH ×2 (08:40→20:38)
[2016-05-15] MEDS: Tamsulosin CAP* 0.4 MG PO SCH (08:41)
[2016-05-15] MEDS: Folic Acid TAB* 1 MG PO SCH (08:41)
[2016-05-15] MEDS: Gemfibrozil TAB* 600 MG PO SCH ×2 (08:41→20:38)
[2016-05-15] MEDS: Pentoxifylline CR TAB* 400 MG PO SCH ×3 (08:41→20:38)
[2016-05-15] MEDS: Omeprazole CAP* 20 MG PO SCH ×2 (08:41→20:38)
[2016-05-15] MEDS: celeCOXIB CAP* 200 MG PO SCH (08:41)
[2016-05-15] MEDS: Amiodarone TAB* 200 MG PO SCH ×2 (08:41→20:38)
[2016-05-15] MEDS: LORazepam TAB(*) 1 MG PO SCH ×4 (08:41→20:39)
[2016-05-15] MEDS: glipiZIDE TAB.XL* 5 MG PO SCH ×2 (08:42→17:38)
[2016-05-15] MEDS: Nystatin TOP POWDER* 15 GM BTL TOPICAL SCH ×3 (08:42→20:43)
--- NOTE | 2016-05-15 11:26 | PN ---
Subjective Date of Service: 05/15/16 Interval History: Ate breakfast, no pain, no N/V, CP/SOB Says he feels "like people are out to get me, rather it's strange I don't feel like people are out to get me." Has difficulty clarifying what this means but I think he is referring to the series of falls and set backs he has had over the last 7 months. No other complaints Family History: Unchanged from Admission Social History: Unchanged from Admission Past Medical History: Unchanged from Admission Objective Active Medications: Acetaminophen (Tylenol Tab*) 650 mg PO Q6H PRN PRN Reason: PAIN Albuterol (Ventolin Hfa Inhaler*) 2 puff INH Q4H PRN PRN Reason: SOB/WHEEZING Amiodarone HCl (Cordarone Tab*) 200 mg PO BID [facility] Last Admin: 05/15/16 08:41 Dose: 200 mg Aspirin (Aspirin Low Dose Tab*) 81 mg PO BEDTIME [facility] Last Admin: 05/14/16 21:08 Dose: 81 mg Atorvastatin Calcium (Lipitor*) 80 mg PO QPM [facility] Last Admin: 05/14/16 17:09 Dose: 80 mg Celecoxib (Celebrex Cap*) 200 mg PO QAM [facility] Last Admin: 05/15/16 08:41 Dose: 200 mg Cyclobenzaprine HCl (Flexeril Tab*) 10 mg PO TID PRN PRN Reason: SPASMS Docusate Sodium (Colace Cap*) 100 mg PO BEDTIME [facility] Last Admin: 05/14/16 21:08 Dose: 100 mg Doxycycline Hyclate (Vibramycin Cap(*)) 100 mg PO BID [facility] Last Admin: 05/15/16 08:40 Dose: 100 mg Ferrous Sulfate (Ferrous Sulfate Tab*) 325 mg PO BEDTIME [facility] Last Admin: 05/14/16 21:08 Dose: 325 mg Finasteride (Proscar Tab*) 5 mg PO QPM [facility] Last Admin: 05/14/16 17:10 Dose: 5 mg Folic Acid (Folvite Tab*) 1 mg PO QAM [facility] Last Admin: 05/15/16 08:41 Dose: 1 mg Gemfibrozil (Lopid Tab*) 600 mg PO BID [facility] Last Admin: 05/15/16 08:41 Dose: 600 mg Glipizide (Glucotrol Xl*) 5 mg PO BID WITH MEALS [facility] Last Admin: 05/15/16 08:42 Dose: 5 mg Insulin Glargine (Lantus(*)) 34 units SUBCUT 1700 [facility] Last Admin: 05/14/16 17:10 Dose: 34 units Levothyroxine Sodium (Synthroid Tab*) 187.5 mcg PO 0600 [facility] Last Admin: 05/15/16 05:49 Dose: 187.5 mcg Lorazepam (Ativan Tab(*)) 1 mg PO QID [facility] Last Admin: 05/15/16 08:41 Dose: 1 mg Magnesium Hydroxide (Milk Of Magnesia Liq*) 30 ml PO Q6H PRN PRN Reason: CONSTIPATION Last Admin: 05/14/16 10:34 Dose: 30 ml Nystatin (Nystatin Top Powder*) 1 applic TOPICAL TID [facility] Last Admin: 05/15/16 08:42 Dose: 1 applic Omeprazole (Prilosec Cap*) 20 mg PO BID [facility] Last Admin: 05/15/16 08:41 Dose: 20 mg Oxycodone HCl (Roxycodone Tab*) 5 mg PO Q6H PRN PRN Reason: PAIN Last Admin: 05/15/16 00:23 Dose: 5 mg Pentoxifylline (Trental Cr Tab*) 400 mg PO TID [facility] Last Admin: 05/15/16 08:41 Dose: 400 mg Polyethylene Glycol/Electrolytes (Miralax*) 17 gm PO DAILY PRN PRN Reason: CONSTIPATION Potassium Chloride (Klor-Con Liquid*) 20 meq PO BID [facility] Last Admin: 05/15/16 08:40 Dose: 20 meq Senna (Senokot Tab*) 2 tab PO BEDTIME [facility] Last Admin: 05/14/16 21:09 Dose: 2 tab Tamsulosin HCl (Flomax Cap*) 0.4 mg PO DAILY [facility] Last Admin: 05/15/16 08:41 Dose: 0.4 mg Warfarin Sodium (Coumadin Tab(*)) 1 mg PO DAILY@1700 [facility] PRN Reason: Protocol Vital Signs 05/14/16 05/14/16 05/14/16 12:42 13:04 15:04 Temperature 97.7 F Pulse Rate 75 Respiratory 16 20 18 Rate Blood Pressure 155/61 (mmHg) O2 Sat by Pulse 93 Oximetry 05/14/16 05/14/16 05/14/16 15:45 16:07 17:10 Temperature 98.0 F Pulse Rate 75 Respiratory 16 20 18 Rate Blood Pressure 122/58 (mmHg) O2 Sat by Pulse 91 Oximetry 05/14/16 05/14/16 05/14/16 17:43 19:10 20:00 Temperature Pulse Rate 71 Respiratory 18 18 20 Rate Blood Pressure (mmHg) O2 Sat by Pulse 95 Oximetry 05/14/16 05/14/16 05/14/16 21:09 23:09 23:36 Temperature 97.6 F Pulse Rate 71 Respiratory 20 20 16 Rate Blood Pressure 133/60 (mmHg) O2 Sat by Pulse 95 Oximetry 05/15/16 05/15/16 05/15/16 00:23 01:23 02:23 Temperature Pulse Rate Respiratory 20 18 20 Rate Blood Pressure (mmHg) O2 Sat by Pulse Oximetry 05/15/16 05/15/16 05/15/16 03:23 08:20 08:41 Temperature Pulse Rate Respiratory 20 16 16 Rate Blood Pressure (mmHg) O2 Sat by Pulse Oximetry 05/15/16 10:09 Temperature 98.1 F Pulse Rate 76 Respiratory 16 Rate Blood Pressure 126/52 (mmHg) O2 Sat by Pulse 93 Oximetry Oxygen Devices in Use Now: None Appearance: sitting up in bed, NAD Eyes: No Scleral Icterus, PERRLA Ears/Nose/Mouth/Throat: Clear Oropharnyx, Mucous Membranes Moist Neck: NL Appearance and Movements; NL JVP, Trachea Midline Respiratory: Symmetrical Chest Expansion and Respiratory Effort, - - rales left base Cardiovascular: NL Sounds; No Murmurs; No JVD, RRR Abdominal: NL Sounds; No Tenderness; No Distention, No Hepatosplenomegaly Lymphatic: No Cervical Adenopathy Extremities: - - left leg wrapped, nv intact Skin: - - two small 1cm ulcers on right lateral tibia, no associated erythema Neurological: Alert and Oriented x 3 Result Diagrams: 05/12/16 17:15 05/15/16 05:40 Additional Lab and Data: Microbiology and Other Data: Assess/Plan/Problems-Billing Assessment: Mechanical fall with multiple LLE fractures (fibula, tibia, posterior malleolus ) in a 75 yo M with hx of AFib on coumadin, CAD s/p multiple stents, esophageal cancer, COPD, IBS, anxiety, CKD and recently diagnosed RLE wound - Patient Problems (1) Closed fracture of left lower extremity Comment: Initial imaging showed posterior malleolus fracture, patient evaluated by Dr. Hua and LLE x-ray showed distal fibula and tibia fx as well. per Dr. Hua patient does not need surgery Continue splint/NWB Dr. Hua will cast the patient prior to discharge. Continue analgesia. PT recommending leno for now, will need rehab. (2) CKD (chronic kidney disease) Comment: Creatinine elevated. Possibly due to Bactrim or urinary retention. bactrim discontinued and now on Doxy for LE ulcers Holding Lasix. Was retaining urine 2/3 s/p straight cath without retention on follow up bladder scans. Creatinine unimproved so far (3) Wound of right lower extremity Comment: c.w doxycycline Dressing as per wound clinic. Change daily (4) Atrial fibrillation Comment: Continue Amiodarone. restart coumadin and check INR (5) CAD (coronary artery disease) Comment: Continue ASA, statin (6) BPH (benign prostatic hyperplasia) Current Visit: Yes Comment: Continue finasteride and tamsulosin (7) Diabetes mellitus Comment: Continue Lantus and Glipizide (8) COPD (chronic obstructive pulmonary disease) Comment: Continue albuterol, pentoxyfilline (9) DVT prophylaxis Comment: Coumadin Status and Disposition: Will need rehab
[2016-05-15] MEDS ORDERED: Warfarin TAB(*) 1 MG PO SCH (17:00)
[2016-05-15] MEDS: Insulin GLARGINE(*) 1 UNITS UNIT SUBCUT SCH (17:38)
[2016-05-15] MEDS: Atorvastatin* 80 MG TAB PO SCH (17:38)
[2016-05-15] MEDS: Finasteride TAB* 5 MG PO SCH (17:38)
[2016-05-15] MEDS: Senna TAB PO SCH (20:38)
[2016-05-15] MEDS: Docusate CAP* 100 MG PO SCH (20:38)
[2016-05-15] MEDS: Ferrous Sulfate TAB* 325 MG PO SCH (20:38)
[2016-05-15] MEDS: Aspirin Low Dose CHEW TAB* 81 MG PO SCH (20:39)
[2016-05-16] MEDS: LORazepam TAB(*) 1 MG PO SCH ×5 (04:45→20:56)
[2016-05-16] MEDS: Levothyroxine TAB* 75 MCG TAB PO SCH (05:04)
[2016-05-16 06:21] LABS: BUN/Creatinine Ratio 13.1 (8-20); Calcium 9.1 mg/dL (8.6-10.3); EGFR African American 48.9 (>60); Potassium 4.4 mmol/L (3.5-5.0)
[2016-05-16] MEDS: Potassium Chloride LIQUID* 20 MEQ PACKET PO SCH ×2 (07:53→23:47)
[2016-05-16] MEDS: Omeprazole CAP* 20 MG PO SCH ×2 (07:54→23:41)
[2016-05-16] MEDS: Tamsulosin CAP* 0.4 MG PO SCH (07:55)
[2016-05-16] MEDS: Amiodarone TAB* 200 MG PO SCH ×2 (07:55→20:58)
[2016-05-16] MEDS: glipiZIDE TAB.XL* 5 MG PO SCH ×2 (07:55→17:52)
[2016-05-16] MEDS: oxyCODONE TAB* 5 MG TAB PO PRN ×3 (07:55→20:54)
[2016-05-16] MEDS: Folic Acid TAB* 1 MG PO SCH (07:55)
[2016-05-16] MEDS: DOXYcycline CAP(*) 100 MG PO SCH ×2 (07:55→20:57)
[2016-05-16] MEDS: celeCOXIB CAP* 200 MG PO SCH (09:34)
[2016-05-16] MEDS: Pentoxifylline CR TAB* 400 MG PO SCH ×3 (09:34→23:45)
[2016-05-16] MEDS: Gemfibrozil TAB* 600 MG PO SCH ×2 (09:35→23:44)
[2016-05-16] MEDS: Nystatin TOP POWDER* 15 GM BTL TOPICAL SCH ×3 (09:36→23:41)
--- NOTE | 2016-05-16 16:22 | PN ---
Subjective Date of Service: 05/16/16 Interval History: No complaints Pain well controlled Anxious for discharge disposition Family History: Unchanged from Admission Social History: Unchanged from Admission Past Medical History: Unchanged from Admission Objective Active Medications: Acetaminophen (Tylenol Tab*) 650 mg PO Q6H PRN PRN Reason: PAIN Albuterol (Ventolin Hfa Inhaler*) 2 puff INH Q4H PRN PRN Reason: SOB/WHEEZING Amiodarone HCl (Cordarone Tab*) 200 mg PO BID [facility] Last Admin: 05/16/16 07:55 Dose: 200 mg Aspirin (Aspirin Low Dose Tab*) 81 mg PO BEDTIME [facility] Last Admin: 05/15/16 20:39 Dose: 81 mg Atorvastatin Calcium (Lipitor*) 80 mg PO QPM [facility] Last Admin: 05/15/16 17:38 Dose: 80 mg Celecoxib (Celebrex Cap*) 200 mg PO QAM [facility] Last Admin: 05/16/16 09:34 Dose: 200 mg Cyclobenzaprine HCl (Flexeril Tab*) 10 mg PO TID PRN PRN Reason: SPASMS Docusate Sodium (Colace Cap*) 100 mg PO BEDTIME [facility] Last Admin: 05/15/16 20:38 Dose: 100 mg Doxycycline Hyclate (Vibramycin Cap(*)) 100 mg PO BID [facility] Last Admin: 05/16/16 07:55 Dose: 100 mg Ferrous Sulfate (Ferrous Sulfate Tab*) 325 mg PO BEDTIME [facility] Last Admin: 05/15/16 20:38 Dose: 325 mg Finasteride (Proscar Tab*) 5 mg PO QPM [facility] Last Admin: 05/15/16 17:38 Dose: 5 mg Folic Acid (Folvite Tab*) 1 mg PO QAM [facility] Last Admin: 05/16/16 07:55 Dose: 1 mg Gemfibrozil (Lopid Tab*) 600 mg PO BID [facility] Last Admin: 05/16/16 09:35 Dose: 600 mg Glipizide (Glucotrol Xl*) 5 mg PO BID WITH MEALS [facility] Last Admin: 05/16/16 07:55 Dose: 5 mg Insulin Glargine (Lantus(*)) 34 units SUBCUT 1700 [facility] Last Admin: 05/15/16 17:38 Dose: 34 units Levothyroxine Sodium (Synthroid Tab*) 187.5 mcg PO 0600 [facility] Last Admin: 05/16/16 05:04 Dose: 187.5 mcg Lorazepam (Ativan Tab(*)) 1 mg PO Q4H [facility] Last Admin: 05/16/16 13:32 Dose: 1 mg Magnesium Hydroxide (Milk Of Magnesia Liq*) 30 ml PO Q6H PRN PRN Reason: CONSTIPATION Last Admin: 05/14/16 10:34 Dose: 30 ml Nystatin (Nystatin Top Powder*) 1 applic TOPICAL TID [facility] Last Admin: 05/16/16 13:32 Dose: Not Given Omeprazole (Prilosec Cap*) 20 mg PO BID [facility] Last Admin: 05/16/16 07:54 Dose: 20 mg Oxycodone HCl (Roxycodone Tab*) 5 mg PO Q6H PRN PRN Reason: PAIN Last Admin: 05/16/16 14:46 Dose: 5 mg Pentoxifylline (Trental Cr Tab*) 400 mg PO TID [facility] Last Admin: 05/16/16 13:32 Dose: 400 mg Polyethylene Glycol/Electrolytes (Miralax*) 17 gm PO DAILY PRN PRN Reason: CONSTIPATION Potassium Chloride (Klor-Con Liquid*) 20 meq PO BID [facility] Last Admin: 05/16/16 07:53 Dose: 20 meq Senna (Senokot Tab*) 2 tab PO BEDTIME [facility] Last Admin: 05/15/16 20:38 Dose: 2 tab Tamsulosin HCl (Flomax Cap*) 0.4 mg PO DAILY [facility] Last Admin: 05/16/16 07:55 Dose: 0.4 mg Warfarin Sodium (Coumadin Tab(*)) 1 mg PO DAILY@1700 [facility] PRN Reason: Protocol Last Admin: 05/15/16 17:38 Dose: 1 mg Vital Signs 05/15/16 05/15/16 05/15/16 17:38 19:38 20:00 Temperature Pulse Rate 75 Respiratory 18 18 17 Rate Blood Pressure (mmHg) O2 Sat by Pulse 92 Oximetry 05/15/16 05/15/16 05/15/16 20:39 22:39 23:23 Temperature 97.3 F Pulse Rate 68 Respiratory 18 17 16 Rate Blood Pressure 134/47 (mmHg) O2 Sat by Pulse 99 Oximetry 05/16/16 05/16/16 05/16/16 04:45 06:45 07:55 Temperature Pulse Rate Respiratory 17 20 20 Rate Blood Pressure (mmHg) O2 Sat by Pulse Oximetry 05/16/16 05/16/16 05/16/16 08:00 09:34 09:55 Temperature Pulse Rate Respiratory 20 18 18 Rate Blood Pressure (mmHg) O2 Sat by Pulse Oximetry 05/16/16 05/16/16 05/16/16 11:32 13:32 14:46 Temperature Pulse Rate Respiratory 18 20 18 Rate Blood Pressure (mmHg) O2 Sat by Pulse Oximetry 05/16/16 05/16/16 15:32 15:46 Temperature 97.9 F Pulse Rate 72 Respiratory 18 20 Rate Blood Pressure 122/43 (mmHg) O2 Sat by Pulse 92 Oximetry Oxygen Devices in Use Now: None Appearance: NAD Eyes: No Scleral Icterus, PERRLA Ears/Nose/Mouth/Throat: NL Teeth, Lips, Gums, Clear Oropharnyx Neck: NL Appearance and Movements; NL JVP, Trachea Midline Respiratory: Symmetrical Chest Expansion and Respiratory Effort, Clear to Auscultation Cardiovascular: RRR Abdominal: NL Sounds; No Tenderness; No Distention, No Hepatosplenomegaly Lymphatic: No Cervical Adenopathy Extremities: No Edema, - - n/v intact LE Skin: - - 2 small ulcers on right leg Neurological: Alert and Oriented x 3 Result Diagrams: 05/12/16 17:15 05/16/16 05:54 Additional Lab and Data: Microbiology and Other Data: Assess/Plan/Problems-Billing Assessment: Mechanical fall with multiple LLE fractures (fibula, tibia, posterior malleolus ) in a 75 yo M with hx of AFib on coumadin, CAD s/p multiple stents, esophageal cancer, COPD, IBS, anxiety, CKD and recently diagnosed RLE wound - Patient Problems (1) Closed fracture of left lower extremity Comment: Initial imaging showed posterior malleolus fracture, patient evaluated by Dr. Hua and LLE x-ray showed distal fibula and tibia fx as well. per Dr. Hua patient does not need surgery Continue splint/NWB Dr. Hua will cast the patient prior to discharge. Continue analgesia. PT recommending leno for now, will need rehab. (2) CKD (chronic kidney disease) Comment: Creatinine elevated. Slight improvement over last 48 hrs Possibly due to Bactrim or urinary retention. bactrim discontinued and now on Doxy for LE ulcers Holding Lasix. Was retaining urine 2/3 s/p straight cath without retention on follow up bladder scans. (3) Wound of right lower extremity Comment: c/w doxycycline Dressing as per wound clinic. Change daily (4) Atrial fibrillation Comment: Continue Amiodarone. INR subtherapeutic increase coumadin from 1 to 1.25mg (5) CAD (coronary artery disease) Comment: Continue ASA, statin (6) BPH (benign prostatic hyperplasia) Current Visit: Yes Comment: Continue finasteride and tamsulosin (7) Diabetes mellitus Comment: Continue Lantus and Glipizide (8) COPD (chronic obstructive pulmonary disease) Comment: Continue albuterol, pentoxyfilline (9) DVT prophylaxis Comment: Coumadin Status and Disposition: Will need rehab
[2016-05-16] MEDS ORDERED: Warfarin TAB(*) 2.5 MG PO SCH (17:00)
[2016-05-16] MEDS: Insulin GLARGINE(*) 1 UNITS UNIT SUBCUT SCH (17:50)
[2016-05-16] MEDS: Finasteride TAB* 5 MG PO SCH (17:51)
[2016-05-16] MEDS: Atorvastatin* 80 MG TAB PO SCH (17:52)
[2016-05-16] MEDS: Docusate CAP* 100 MG PO SCH (20:57)
[2016-05-16] MEDS: Aspirin Low Dose CHEW TAB* 81 MG PO SCH (20:57)
[2016-05-16] MEDS: Ferrous Sulfate TAB* 325 MG PO SCH (20:58)
[2016-05-16] MEDS ORDERED: oxyCODONE TAB* 5 MG TAB PO ONE (21:33)
[2016-05-16] MEDS: Senna TAB PO SCH (23:45)
[2016-05-17] MEDS: LORazepam TAB(*) 1 MG PO SCH ×4 (04:03→14:31)
[2016-05-17] MEDS: oxyCODONE TAB* 5 MG TAB PO PRN ×2 (04:37→14:32)
[2016-05-17] MEDS: Levothyroxine TAB* 75 MCG TAB PO SCH (05:08)
[2016-05-17 09:03] VITALS: BP 122/65
[2016-05-17] MEDS: Pentoxifylline CR TAB* 400 MG PO SCH ×2 (10:26→14:32)
[2016-05-17] MEDS: Omeprazole CAP* 20 MG PO SCH (10:26)
[2016-05-17] MEDS: Tamsulosin CAP* 0.4 MG PO SCH (10:26)
[2016-05-17] MEDS: Gemfibrozil TAB* 600 MG PO SCH (10:26)
[2016-05-17] MEDS: Folic Acid TAB* 1 MG PO SCH (10:26)
[2016-05-17] MEDS: DOXYcycline CAP(*) 100 MG PO SCH (10:26)
[2016-05-17] MEDS: celeCOXIB CAP* 200 MG PO SCH (10:26)
[2016-05-17] MEDS: glipiZIDE TAB.XL* 5 MG PO SCH (10:27)
[2016-05-17] MEDS: Potassium Chloride LIQUID* 20 MEQ PACKET PO SCH (10:29)
[2016-05-17] MEDS: Amiodarone TAB* 200 MG PO SCH (10:30)
[2016-05-17] MEDS: Nystatin TOP POWDER* 15 GM BTL TOPICAL SCH ×2 (10:30→14:32)
--- NOTE | 2016-05-17 14:55 | DS ---
DATE OF ADMISSION: 05/12/2016. DATE OF DISCHARGE: 05/17/2016. PRIMARY CARE PHYSICIAN: Dr. Cha. ORTHOPEDIC SURGEON: Dr. Karan Hua. PRIMARY DIAGNOSIS: Closed fractures of the left lower extremity, including posterior malleolus, fibula, and tibia. SECONDARY DIAGNOSES: Acute on chronic kidney injury, chronic right lower extremity wounds, atrial fibrillation, coronary artery disease, benign prostatic hypertrophy, urinary retention, type 2 diabetes, COPD. MEDICATIONS ON DISCHARGE: 1. Aspirin 81 mg at bedtime. 2. Acetaminophen 650 mg every 6 hours as needed for pain. 3. Ferrous sulfate 325 mg at bedtime. 4. Refresh eye drops one drop both eyes daily as needed. 5. Senna/Docusate two tabs at bedtime. 6. Mometasone Furoate one application topically daily. 7. Oxycodone 5 to 10 mg every 6 hours as needed for pain. 8. Potassium chloride 20 mEq twice daily. 9. Lorazepam 1 mg three times a day as needed for anxiety. 10. Pentoxifylline 400 mg three times daily. 11. Flexeril 10 mg three times a day as needed for pain for spasm. 12. Restasis ophthalmic drops one drop both eyes twice daily. 13. Nystatin one application 3 times a day. 14. Lovaza one cap twice daily. 15. Combivent one puff every 4 hours as needed. 16. Finasteride 5 mg in evening. 17. Amiodarone 200 mg twice daily. 18. Folic acid one cap daily. 19. Fluorometholone one percent ophthalmic solution one drop left eye twice daily. 20. Gemfibrozil 600 mg twice daily. 21. Synthroid 187.5 mcg daily. 22. Afrin one spray nasally as needed for nasal congestion. 23. Nitroglycerin 0.4 mg sublingual for chest pain and every 5 minutes up to 3 times. 24. Crestor 40 mg in the evening. 25. Protonix 40 mg twice daily. 26. Glipizide 5 mg twice daily. 27. Coumadin 1.25 mg please now receive 2.5 mg day of discharge. 28. Metanx 25 mg in the evening. 29. Insulin Lantus 34 units in the evening. 30. Flomax 0.4 mg daily. 31. Doxycycline 100 mg twice daily. PERTINENT LABORATORY DATA: 1. INR is supratherapeutic at 3.1 on 05/13/2016, decreased to 1.48 on the day of discharge, received bolus dose 2.5 mg of Coumadin on the day of discharge, repeat in two days after discharge. 2. Creatinine peaked during hospital stay at 1.99, decreased to 1.76 on discharge. HISTORY OF PRESENT ILLNESS AND HOSPITAL COURSE: This is a pleasant, 75-year- old man with a past medical history as outlined in the history of present illness on the day of admission presented to the hospital after a mechanical fall, found with several left lower extremity fractures, including posterior malleolus, tibia and fibula. He was admitted to the Hospitalist service. Pain was managed as well as treated with fluid for acute on chronic renal failure. It was thought that his renal failure was possibly in the setting of Lasix and/ or his continued Bactrim use for his right lower extremity wounds. He was seen by Wound Care with care for wound to be continued with Silver collagen applied onto the wound with layers of Medigrip covered for stability or compression stocking and then rolling gauze over collagen and Medigrip if it was used. His Bactrim was changed to Doxycycline. He was noted to have an episode of urinary retention, required straight catheterization and had no additional episodes of retention after that. He was started on Flomax and Finasteride. His left leg was placed in a cast by Dr. Hua on the day of discharge with instructions of partial weightbearing as tolerated on the left leg. He will be discharged to [facility] to continue physical therapy. There were no other complications during the patient's hospital stay. In addition to the INR that needs to be followed in two days from now, there are no other additional labs or vitals that need following. On the day of discharge, the patient was interactive, pleasant, in no apparent distress, has no complaints. He is neurovascularly intact in the lower extremity. He has two open wounds of his right lower extremity, which are currently covered. No surrounding erythema or evidence of infection. AT FOLLOW-UP, PLEASE: 1. Ensure INR follow-up as indicated above. 2. Follow-up with Dr. Hua as indicated above. 3. Ensure follow-up with Dr. Cha as indicated above. REASONS TO RETURN TO THE HOSPITAL: Including, but not limited to worsening of symptoms, chest pain, shortness of breath, nausea, vomiting, lightheadedness, loss of consciousness, bleeding from any source, and inability to obtain or tolerate medications were discussed with the patient. He acknowledged understanding. Greater than 45 minutes were spent on the discharge of this patient with greater than half spent [id number] with the patient. CC: Dr. Cha; Dr. Karan Hua * [id number]/CPS #: [id number] MTDD
[2016-05-17] MEDS ORDERED: Warfarin TAB(*) 2.5 MG PO ONE (17:00)
== END 2016-05-17 15:45 | DRG 501 ==
LOC: ED 16:08 → MED 18:40
PROVIDERS: ADMIT Hospitalist; ATTEND Internal Medicine
PROC: 0JQ03ZZ Repair Scalp Subcutaneous Tissue and Fascia, Percutaneous Approach (ICD-10-PCS; principal; 2016-05-12)
PROC: 2W3MX2Z Immobilization of Left Lower Extremity using Cast (ICD-10-PCS; 2016-05-17)
DX: S82.55XA Nondisplaced fracture of medial malleolus of left tibia, initial encounter for closed fracture (principal); N17.9 Acute kidney failure, unspecified; C15.9 Malignant neoplasm of esophagus, unspecified; E11.22 Type 2 diabetes mellitus with diabetic chronic kidney disease; L03.115 Cellulitis of right lower limb; S82.832A Other fracture of upper and lower end of left fibula, initial encounter for closed fracture; W18.30XA Fall on same level, unspecified, initial encounter; I13.10 Hypertensive heart and chronic kidney disease without heart failure, with stage 1 through stage 4 chronic kidney disease, or unspecified chronic kidney disease; I25.10 Atherosclerotic heart disease of native coronary artery without angina pectoris; I48.91 Unspecified atrial fibrillation; K58.9 Irritable bowel syndrome, unspecified; F17.210 Nicotine dependence, cigarettes, uncomplicated; I44.0 Atrioventricular block, first degree; N18.9 Chronic kidney disease, unspecified; S01.01XA Laceration without foreign body of scalp, initial encounter; J44.9 Chronic obstructive pulmonary disease, unspecified; G89.29 Other chronic pain; F41.9 Anxiety disorder, unspecified; Z96.642 Presence of left artificial hip joint; Z95.5 Presence of coronary angioplasty implant and graft; Z79.01 Long term (current) use of anticoagulants; Y92.59 Other trade areas as the place of occurrence of the external cause; Z79.82 Long term (current) use of aspirin; Z79.1 Long term (current) use of non-steroidal anti-inflammatories (NSAID); Z79.84 Long term (current) use of oral hypoglycemic drugs; Z79.891 Long term (current) use of opiate analgesic; Z79.899 Other long term (current) drug therapy; Z88.1 Allergy status to other antibiotic agents; Z83.3 Family history of diabetes mellitus; Z80.0 Family history of malignant neoplasm of digestive organs; Z84.89 Family history of other specified conditions
CPT/HCPCS: 36415; 70450; 71020; 76770; 80048; 80053; 81003; 82570; 83605; 83735; 83880; 84145; 84300; 84443; 84484; 85025; 85610; 87040; 87641; 90715; 93005; 97597; 99213; A9270-GY; G0463

== ENCOUNTER 2016-09-21 12:24 | Emergency (ER) | payer MEDICARE ==
--- NOTE | 2016-09-21 13:33 | RAD ---
INDICATION: Left knee injury. TECHNIQUE: 4 views of the left knee were obtained. FINDINGS: There is a moderate joint effusion present. There is irregularity of the articular surface of the medial tibial Plateau possibly representing a fracture. No other fractures are seen. There is mild osteoarthritic change in all 3 compartments. IMPRESSION: LARGE JOINT EFFUSION, PROBABLE MEDIAL TIBIAL PLATEAU FRACTURE. RECOMMEND A CT OF THE KNEE FOR FURTHER EVALUATION.
--- NOTE | 2016-09-21 14:28 | ED ---
Lower Extremity - HPI Summary HPI Summary: 76 male presents with complaints of left knee pain after sustaining a fall 2 days ago. Patient states he missed the last step while walking down the stairs and bumped it into the wall, slid down and it was hyper-flexed. Patient states the pain and swelling has worsened over the past couple of days. He can only bear weight when his left lower extremity is completely straight. States pain is sharp and mostly in the back of his knee. 7/10. Pain increases with movement and walking. Has been taking oxycotten for previous surgical injuries with last one this morning. He is currently comfortable with minimal pain while laying in stretcher. He applied ice at time of incident but has not since. Is currently on Xarelto. Denies numbness/tingling. No open wounds or signs of infection. Patient does have diabetes and cardiac issues. Did not hit head, no LOC and no other injuries or complaints at this time. - History of Current Complaint Chief Complaint: EDExtremityLower Stated Complaint: KNEE PAIN Time Seen by Provider: 09/21/16 13:18 Hx Obtained From: Patient Mechanism Of Injury: Blunt Trauma, Twisted Onset of Pain: Immediate Onset/Duration: Days - 2 Severity Initially: Moderate Severity Currently: Severe Pain Intensity: 7 Pain Scale Used: 0-10 Numeric Timing: Intermittent - with movement/ certain position Location: Is Discrete @ - left anterior and posterior knee Character Of Pain: Sharp, Aching Associated Signs And Symptoms: Positive: Knee Pain - left Aggravating Factor(s): Standing, Ambulation, Weight Bearing, Stairs Alleviating Factor(s): Rest Able to Bear Weight: Yes - with pain and only with leg completely straight - Allergies/Home Medications Allergies/Adverse Reactions: Allergies Allergy/AdvReac Type Severity Reaction Status Date / Time Cephalexin [From Keflex] Allergy Intermediate GI Upset Verified 05/12/16 16:29 BANANAS Allergy Mild See Comment Uncoded 05/12/16 16:29 WALNUTS Allergy Mild See Comment Uncoded 05/12/16 16:29 PMH/Surg Hx/FS Hx/Imm Hx Endocrine/Hematology History: Reports: Hx Diabetes, Hx Thyroid Disease Cardiovascular History: Reports: Hx Angina, Hx Angioplasty, Hx Coronary Artery Disease, Hx Hypercholesterolemia, Hx Hypertension, Other Cardiovascular Problems /Disorders - HISTORY OF ATRIAL FIBRILLARION Denies: Hx Congestive Heart Failure, Hx Myocardial Infarction, Hx Valvular Heart Disease Respiratory History: Reports: Hx Chronic Obstructive Pulmonary Disease (COPD), Hx Sleep Apnea Denies: Hx Asthma GI History: Reports: Hx Gall Bladder Disease - removed, Hx Gastroesophageal Reflux Disease, Hx Hiatal Hernia, Hx Ulcer, Other GI Disorders - Barretts esophagus History: Denies: Hx Renal Disease Musculoskeletal History: Reports: Hx Arthritis - ARTHRITIS, Hx Rheumatoid Arthritis, Hx Osteoporosis Sensory History: Reports: Hx Cataracts - RIGHT EYE, Hx Contacts or Glasses - does not have them now Denies: Hx Hearing Aid Opthamlomology History: Reports: Hx Cataracts - RIGHT EYE, Hx Contacts or Glasses - does not have them now Neurological History: Reports: Other Neuro Impairments/Disorders - diabetic neuropathy (feet) Psychiatric History: Reports: Hx Anxiety - Cancer History Cancer Type, 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 - Surgical History Surgery Procedure, Year, and Place: 10 CARDIAC STENTS, CHOLECYSTECTOMY, APPENDECTOMY, left hip replacement, ESOPHAGEAL CA TUMOR REMOVED 2014 Hx Anesthesia Reactions: No - Immunization History Date of Tetanus Vaccine: Infectious Disease History: No Infectious Disease History: Reports: Hx Hepatitis - CURED Denies: Hx Clostridium Difficile, Hx Human Immunodeficiency Virus (HIV), Hx of Known/Suspected MRSA, Hx Shingles, Hx Tuberculosis, Hx Known/Suspected VRE, Hx Known/Suspected VRSA, History Other Infectious Disease, Traveled Outside the [place] in Last 30 Days - Family History Known Family History: Positive: None - Social History Alcohol Use: Rare Substance Use Type: Reports: None Smoking Status (MU): Former Smoker Type: Cigarettes Amount Used/How Often: 1.5ppd Length of Time of Smoking/Using Tobacco: 50 years Have You Smoked in the Last Year: No Review of Systems Constitutional: Negative Cardiovascular: Negative Respiratory: Negative Positive: Arthralgia, Myalgia, Decreased ROM, Edema - left knee Skin: Negative Neurological: Negative All Other Systems Reviewed And Are Negative: Yes Physical Exam Triage Information Reviewed: Yes Vital Signs On Initial Exam: Initial Vitals Temp Pulse Resp BP Pulse Ox 97.4 F 65 18 134/68 97 09/21/16 12:29 09/21/16 12:29 09/21/16 12:29 09/21/16 12:29 09/21/16 12:29 Vital Signs Reviewed: Yes Appearance: Positive: Well-Appearing, Well-Nourished, Pain Distress - mild holding left abdomen and wincing Skin: Positive: Warm, Skin Color Reflects Adequate Perfusion, Dry, Other - discolored skin of lower legs b/l , chronic. Negative: Cold, Numb Head/Face: Positive: Normal Head/Face Inspection Eyes: Positive: Normal, Conjunctiva Clear ENT: Positive: Normal ENT inspection, Hearing grossly normal, Pharynx normal, TMs normal Dental: Negative: Cervical Lymphadenopathy Neck: Positive: Supple, Nontender, No Lymphadenopathy Respiratory/Lung Sounds: Positive: Clear to Auscultation, Breath Sounds Present. Negative: Decreased Breath Sounds, Rales, Rhonchi, Stridor, Wheezes Cardiovascular: Positive: Normal, RRR, Pulses are Symmetrical in both Upper and Lower Extremities - 2+ pedal b/l. Negative: Murmur, Rub Abdomen Description: Positive: No Organomegaly, Soft Bowel Sounds: Positive: Present Musculoskeletal: Positive: Normal, Limited @ - left knee with flexion. strength limited left knee due to pain, Pain @ - on palpation of anterior left knee and proximal tibia, also on palpation of posterior left knee, Edema Left - significant effusion of left knee 48.5cm compared to right knee of 46cm however patient has chronic edema of right knee due to previous surgery., Other - no ecchymosis noted, no crepitus or step off noted. platella appears intact. difficult to examine due to edema. no obvious deformity appeciated. Negative: Interruption @ Neurological: Positive: Normal, Sensory/Motor Intact, Alert, Oriented to Person Place, Time, CN Intact II-III, Reflexes Intact - not assess on left platella, NV Bundle Intact Distally - sensation intact, Unable to Assess Gait Psychiatric: Positive: Normal AVPU Assessment: Alert Diagnostics - Vital Signs Vital Signs Temp Pulse Resp BP Pulse Ox 09/21/16 12:29 97.4 F 65 18 134/68 97 - Laboratory Lab Statement: Any lab studies that have been ordered have been reviewed, and results considered in the medical decision making process. - Radiology left knee Xray Interpretation: Positive (See Comments) - LARGE JOINT EFFUSION, PROBABLE MEDIAL TIBIAL PLATEAU FRACTURE. RECOMMEND A CT OF THE KNEE FOR FURTHER EVALUATION. Radiology Interpretation Completed By: Radiologist - CT left knee CT Interpretation: Positive (See Comments) - 1. NO FRACTURE IS SEEN. 2. JOINT EFFUSION. CT Interpretation Completed By: Radiologist Lower Extremity Course/Dx - Course Course Of Treatment: patient denies pain medication at this time as he already took some this morning and is comfortable. on xarelto, effusion may be caused by injury and bleeding. x-ray obtained and showed probable tibial plateau fracture. CT ordered for better visualization and negative for fracture. Ice applied. neno bandage applied. ran by Dr Mullins who will follow up in office. Patient is aware of worsening signs and symptoms to watch out for as this may worsen. Told to use immoibilizer that he has at home for extra support. Follow up Dr Mullins. - Diagnoses Differential Diagnosis/HQI/PQRI: Positive: Contusion, Dislocation, Fracture ( Closed), Sprain, Strain, Other Provider Diagnoses: Effusion of knee joint, left - Physician Notifications Discussed Care Of Patient With: Dr Mullins Time Discussed With Above Provider: 15:55 Instructed by Provider To: Have Pt Call For Appt. Discharge - Discharge Plan Condition: Stable Disposition: HOME Patient Education Materials: Swollen Knee Joint (ED) Referrals: Jamie Cha MD [Primary Care Provider] - Additional Instructions: Ice multiple times daily to help decrease swelling. Keep neno bandage applied for extra compression. Elevate and rest. Continue pain medication as prescribed to you. Use knee immobilizer for support with walking. If symptoms worsen please return promptly. Make an appointment with orthopedics within the next 3 days.
--- NOTE | 2016-09-21 14:49 | RAD ---
INDICATION: Left knee trauma. COMPARISON: Correlation is made with a prior x-ray study of the left knee of the same day. TECHNIQUE: Contiguous axial sections were obtained of the left knee. Images were reconstructed in the sagittal and coronal planes. FINDINGS: There is a moderate joint effusion present. The bones appear osteoporotic and are normal alignment. No fracture is seen. There is mild osteoarthritic change in the patellofemoral, medial and lateral compartments. IMPRESSION: 1. NO FRACTURE IS SEEN. 2. JOINT EFFUSION.
[2016-09-21 16:59] VITALS: BP 131/67
== END 2016-09-21 16:58 | disposition home or self-care (01) ==
LOC: ED 12:24
DX: M25.462 Effusion, left knee (principal); M25.562 Pain in left knee; Z87.891 Personal history of nicotine dependence
CPT/HCPCS: 99282

== ENCOUNTER 2016-10-01 13:04 | Inpatient (IN) | payer MEDICARE ==
--- NOTE | 2016-10-01 14:01 | RAD ---
Indication: LEFT knee pain. Rheumatoid arthritis. Osteoporosis. Comparison: September 21, 2016 CT and radiographs. Technique: LEFT knee: AP, tunnel, crosstable lateral, sunrise views. Report: Bone density appears decreased throughout. Negative for fracture or malalignment. Only minimal osteophytosis. Mild medial joint compartment space narrowing. Small suprapatellar effusion similar to the prior exam. Extensive femoral popliteal calcifications. Unremarkable soft tissue contours. IMPRESSION: The constellation of findings given the provided history is consistent with rheumatoid arthritis. Small joint effusion. Negative for fracture or malalignment.
[2016-10-01 14:33] LABS: Hematocrit 41 % (42-52); Mean Corpuscular HGB Conc 32 g/dl (31-36); Mean Corpuscular Hemoglobin 28 pg (27-31); Mean Corpuscular Volume 86 fL (80-94); Mean Platelet Volume 8 um3 (7.4-10.4); Red Blood Count 4.71 10^6/ul (4.0-5.4); Red Cell Distribution Width 15 % (10.5-15); White Blood Count 9.7 10^3/ul (3.5-10.8)
[2016-10-01 14:47] LABS: ALT 23 U/L (7-52); Albumin 3.9 g/dL (3.2-5.2); Alkaline Phosphatase 60 U/L (34-104); BUN/Creatinine Ratio 17.8 (8-20); Blood Urea Nitrogen 32 mg/dL (6-24); C Reactive Protein 255.89 mg/L (< 5.00); CO2 Carbon Dioxide 23 mmol/L (22-32); Calcium 9.9 mg/dL (8.6-10.3); Chloride 98 mmol/L (101-111); EGFR African American 47.5 (>60); Globulin 3.3 g/dL (2-4); Glucose 240 mg/dL (70-100); Sodium 130 mmol/L (133-145); Total Protein 7.2 g/dL (6.4-8.9)
[2016-10-01 15:19] LABS: Anion Gap 9 mmol/L (2-11)
[2016-10-01] MEDS ORDERED: NS 0.9% 1000 ML* 1,000 ML IV ONE (15:41)
[2016-10-01] MEDS ORDERED: oxyCODONE/Acetamin 5/325 MG* TAB PO ONE (16:03)
--- NOTE | 2016-10-01 20:28 | HP ---
H&P (Free Text) History and Physical: PCP: Leoncio Cha MD Date/Time of Evaluation: 10/01/20162014 CC: diarrhea HPI: Mr Bryant is a 76YO male HX C-diff colitis ~6 weeks ago who began having diarrhea again ~2days ago progressing to more frequent and with fecal incontinence. He denies F/C, N/V, decreased appetite, sweats, black/bloody stool , chest pain, SOB, palpitations, or other issues. He was tested for C-diff which was negative. He uses a walker 2nd chronic LE pain from torn quadriceps & fracture and is unable to get to the restroom on time resulting in fecal incontinence. PMedHx CAD/stents AFIB on warfarin IBS esophageal CA DM2 HLD, mixed rheumatoid arthritis COPD hypothyroidism GERD BPH chronic pain anxiety Ambulatory Orders Nursing to reconcile. Allergies Cephalexin [From Keflex] Adverse Reaction (Mild, Verified 10/01/16 19:53) GI Upset BANANAS Allergy (Mild, Uncoded 05/12/16 16:29) See Comment Mouth Tingling WALNUTS Allergy (Mild, Uncoded 05/12/16 16:29) See Comment Mouth Tingling PSurgHx tonsillectomy appendectomy TURP L PATRICIA SocHx: former smoker w/ >50 PYHX, no alcohol or recreational drugs; lives with his ; full code status FamHx: positive for DM2, HTN, Alzheimer's, HLD, CAD, & colon CA ROS: as above, otherwise reviewed and all were negative Constitutional: NAD, normally developed, obese elderly white male vitals: Vital Signs Temp 37.6 C 10/01/16 13:15 Pulse 67 10/01/16 19:30 Resp 16 10/01/16 19:30 BP 128/69 10/01/16 19:30 Pulse Ox 98 10/01/16 19:30 Intake & Output 09/30/16 10/01/16 10/01/16 23:59 11:59 23:59 Weight 112.037 kg HEENM: atraumatic; sclera/conjunctiva: non-icteric/clear; hearing: clinically intact; oropharynx: clear, mucosa dry, voice hoarse Neck: soft tissue: non-tender; thyroid: normal Pulmonary: clear to auscultation bilaterally, good to fair aeration, no accessory muscle use CV: RR/RR, normal S1S2, no carotid bruit, no jugular venous distention, 2+ B DP/ PT, no edema Abdominal: soft, non-distended, non-tender, no rebound/guarding/rigidity, normoactive bowel sounds, no hepatosplenomegaly or masses, no costovertebral angle tenderness Integumental: dry, crusted lips Psychiatric orientation: AA&O to PPS affect: calm mood: cooperative eye contact: good to fair content: reliable responses: timely insight: fair Testing: Lab Results 10/01/16 10/01/16 10/01/16 Range/Units 14:20 14:20 15:32 WBC 9.7 (3.5-10.8) 10^3/ul RBC 4.71 (4.0-5.4) 10^6/ul Hgb 13.0 L (14.0-18.0) g/dl Hct 41 L (42-52) % MCV 86 (80-94) fL MCH 28 (27-31) pg MCHC 32 (31-36) g/dl RDW 15 (10.5-15) % Plt Count 228 (150-450) 10^3/ul MPV 8 (7.4-10.4) um3 Neut % (Auto) 81.4 (38-83) % Lymph % (Auto) 8.1 L (25-47) % Boyd % (Auto) 9.0 (1-9) % Eos % (Auto) 1.0 (0-6) % Baso % (Auto) 0.5 (0-2) % Absolute Neuts (auto) 7.9 H (1.5-7.7) 10^3/ul Absolute Lymphs (auto) 0.8 L (1.0-4.8) 10^3/ul Absolute Monos (auto) 0.9 H (0-0.8) 10^3/ul Absolute Eos (auto) 0.1 (0-0.6) 10^3/ul Absolute Basos (auto) 0.1 (0-0.2) 10^3/ul Absolute Nucleated RBC 0 10^3/ul Nucleated RBC % 0 Sodium 130 L (133-145) mmol/L Potassium TNP 4.2 Chloride 98 L (101-111) mmol/L Carbon Dioxide 23 (22-32) mmol/L Anion Gap 9 (2-11) mmol/L BUN 32 H (6-24) mg/dL Creatinine 1.80 H (0.67-1.17) mg/dL Est GFR ( Amer) 47.5 (>60) Est GFR (Non-Af Amer) 37.0 (>60) BUN/Creatinine Ratio 17.8 (8-20) Glucose 240 H (70-100) mg/dL Calcium 9.9 (8.6-10.3) mg/dL Total Bilirubin 0.90 (0.2-1.0) mg/dL AST TNP 25 ALT 23 (7-52) U/L Alkaline Phosphatase 60 (34-104) U/L C-Reactive Protein 255.89 H (< 5.00) mg/L Total Protein 7.2 (6.4-8.9) g/dL Albumin 3.9 (3.2-5.2) g/dL Globulin 3.3 (2-4) g/dL Albumin/Globulin Ratio 1.2 (1-3) XRY knee, personally reviewed: IMPRESSION: The constellation of findings given the provided history is consistent with rheumatoid arthritis. Small joint effusion. Negative for fracture or malalignment. Impression: 76M presenting with 3 days of diarrhea, treatment for C-diff ~ 6weeks ago but a negative C-diff test 09/30/2016, & HX IBS clinically appearing dehydrated with generalized weakness DIAGNOSIS & PLAN Primary dehydration 2nd diarrhea 2nd suspect viral gastroenteritis vs flare of IBS : no indication for ABX at this time : negative C-diff test dated 09/30/2016, recheck : IVFs : anti-diarrheals : supportive care generalized weakness 2nd above : IVF rehydration : PT/OT evaluations Secondary CAD/stents : review meds once reconciled AFIB : review meds once reconciled esophageal CA : no acute issues DM2 : review meds once reconciled HLD, mixed : review meds once reconciled COPD, no in exacerbation : albuterol nebs PRN : mometasone/formoterol : tiotropium hypothyroidism : review meds once reconciled rheumatoid arthritis : pain control GERD : omeprazole BPH : review meds once reconciled chronic pain : review meds once reconciled anxiety : review meds once reconciled Admission Rational: observation for dehydration 2nd gastroenteritis vs IBS DVTp: warfarin once reconciled Code Status: full HCP:
[2016-10-01] MEDS ORDERED: Melatonin (NF) 3 MG TAB PO PRN (20:59)
[2016-10-01] MEDS ORDERED: traMADol TAB* 50 MG PO PRN (20:59)
[2016-10-01] MEDS ORDERED: Acetaminophen TAB* 325 MG PO PRN (20:59)
[2016-10-01] MEDS ORDERED: Albuterol 2.5 MG/3 ML NEB.SOL* (0.083%) INH PRN (20:59)
[2016-10-01] MEDS ORDERED: Ondansetron INJ* 2 MG/ML VIAL IV PRN (20:59)
[2016-10-01] MEDS ORDERED: Diphenoxylat/Atrop 2.5-0.025M* 1 TAB PO PRN (21:00)
[2016-10-01] MEDS ORDERED: NS 0.9% 1000 ML* 1,000 ML IV SCH (21:00)
[2016-10-01] MEDS ORDERED: Diphenoxylat/Atrop 2.5-0.025M* 1 TAB PO ONE (21:00)
[2016-10-01] MEDS: Mometasone/Formoter 200/5 MDI INH SCH (22:48)
[2016-10-02] MEDS ORDERED: LORazepam TAB(*) 1 MG PO PRN (01:53)
[2016-10-02] MEDS: oxyCODONE TAB* 5 MG TAB PO PRN ×4 (03:08→22:23)
[2016-10-02] MEDS ORDERED: Omeprazole CAP* 20 MG PO SCH (06:00)
[2016-10-02] MEDS: Levothyroxine TAB* 125 MCG TAB PO SCH (06:12)
[2016-10-02 06:48] LABS: BUN/Creatinine Ratio 16.9 (8-20); Calcium 8.9 mg/dL (8.6-10.3); EGFR African American 56.9 (>60); EGFR Non-African American 44.3 (>60); Potassium 3.7 mmol/L (3.5-5.0)
[2016-10-02] MEDS: Mometasone/Formoter 200/5 MDI INH SCH ×2 (07:34→20:13)
[2016-10-02] MEDS: Tiotropium CAP.INH* CAP.INH/18 MCG INH SCH (07:34)
[2016-10-02] MEDS: Omeprazole CAP* 20 MG PO SCH ×2 (08:06→22:27)
[2016-10-02] MEDS: Gabapentin CAP(*) 400 MG PO SCH ×3 (08:06→22:25)
[2016-10-02] MEDS: glipiZIDE TAB.XL* 5 MG PO SCH ×2 (08:06→22:36)
--- NOTE | 2016-10-02 08:06 | DCNOTE ---
Subjective Date of Service: 10/02/16 Interval History: No BM since admission. Good appetite. L knee painful. He fell and stressed his L knee about a month ago. He saw Dr. Contreras who said he had arthritis. His L knee got worse when he had to run to the BR many times in the lst 2-3 days due to his diarrhea. The pain is relieved by oxycodone which he has at home. Objective Active Medications: Acetaminophen (Tylenol Tab*) 650 mg PO Q6H PRN PRN Reason: FEVER/PAIN Albuterol (Ventolin 2.5 Mg/3 Ml Neb.[place]islinn*) 2.5 mg INH Q2H PRN PRN Reason: SOB/WHEEZING Amiodarone HCl (Cordarone Tab*) 200 mg PO BID [facility] Aspirin (Aspirin Low Dose Tab*) 81 mg PO BEDTIME MARK Atorvastatin Calcium (Lipitor*) 80 mg PO QPM [facility] Cyclobenzaprine HCl (Flexeril Tab*) 10 mg PO QPM [facility] Device (Tiotropium Inhaler Device*) 1 each INH 0900 ONE Stop: 10/02/16 09:01 Last Admin: 10/02/16 07:33 Dose: 1 each Diphenoxylate HCl/Atropine (Lomotil Tab*) 1 tab PO BID PRN PRN Reason: DIARRHEA Fenofibrate (Tricor(Nf)) 145 mg PO QAM [facility] PRN Reason: Protocol Finasteride (Proscar Tab*) 5 mg PO QPM [facility] Gabapentin (Neurontin Cap(*)) 400 mg PO TID [facility] Gabapentin (Neurontin Cap(*)) 100 mg PO TID [facility] Glipizide (Glucotrol Xl*) 5 mg PO BID [facility] Glipizide (Glucotrol Tab*) 5 mg PO 0800,1700 [facility] Sodium Chloride (Ns 0.9% 1000 Ml*) 1,000 mls @ 125 mls/hr IV PER RATE [facility] Last Admin: 10/01/16 22:47 Dose: 125 mls/hr Insulin Glargine (Lantus(*)) 38 units SUBCUT 1700 [facility] Levothyroxine Sodium (Synthroid Tab*) 187.5 mcg PO 0600 [facility] Last Admin: 10/02/16 06:12 Dose: 187.5 mcg Lorazepam (Ativan Tab(*)) 1 mg PO TID PRN PRN Reason: ANXIETY Melatonin (Melatonin (Nf)) 3 mg PO BEDTIME PRN; Protocol PRN Reason: Sleep Mometasone Furoate/Formoterol Fumar (Dulera 200/5 Mdi*) 2 puff INH BID [facility] Last Admin: 10/02/16 07:34 Dose: 2 puff Morphine Sulfate (Ms Contin(*)) 15 mg PO 0700,1900 [facility] Omeprazole (Prilosec Cap*) 20 mg PO BID [facility] Ondansetron HCl (Zofran Inj*) 4 mg IV Q6H PRN PRN Reason: NAUSEA Oxycodone HCl (Roxycodone Tab*) 10 mg PO Q6H PRN PRN Reason: PAIN Last Admin: 10/02/16 03:08 Dose: 10 mg Pentoxifylline (Trental Cr Tab*) 400 mg PO TID [facility] Rivaroxaban (Xarelto (*)) 20 mg PO QPM [facility] Silodosin (Rapaflo(Nf)) 8 mg PO QPM [facility] Tiotropium [place] (Spiriva Cap.Inh*) 1 cap INH DAILY [facility] Last Admin: 10/02/16 07:34 Dose: 1 cap Tramadol HCl (Ultram*) 50 mg PO Q6H PRN PRN Reason: PAIN Last Admin: 10/01/16 21:52 Dose: 50 mg Vital Signs 10/01/16 10/01/16 10/01/16 22:00 22:35 23:15 Temperature 97.7 F Pulse Rate 67 67 Respiratory 16 16 Rate Blood Pressure 91/62 126/55 (mmHg) O2 Sat by Pulse 98 95 Oximetry 10/02/16 10/02/16 10/02/16 03:08 03:35 07:30 Temperature 97.6 F Pulse Rate 66 66 Respiratory 16 16 17 Rate Blood Pressure 126/56 (mmHg) O2 Sat by Pulse 90 90 Oximetry 10/02/16 07:38 Temperature Pulse Rate 66 Respiratory 18 Rate Blood Pressure (mmHg) O2 Sat by Pulse 93 Oximetry Oxygen Devices in Use Now: None Appearance: Alert, partly up in bed. In air spirits. Looks comfortable. Eyes: No Scleral Icterus Neck: NL Appearance and Movements; NL JVP, No Thyroid Enlargement, Masses Respiratory: Symmetrical Chest Expansion and Respiratory Effort, Clear to Auscultation, Clear to Percussion Cardiovascular: NL Sounds; No Murmurs; No JVD, RRR, No Edema, - Extremities: No Clubbing, Cyanosis, - - L knee mild-mod swelling. warmer than R. Skin: No Rash or Ulcers, No Nodules or Sclerosis, - Neurological: Alert and Oriented x 3, NL Sensation Result Diagrams: 10/01/16 14:20 10/02/16 06:11 Assess/Plan/Problems-Billing Assessment: - Patient Problems (1) Gastroenteritis Current Visit: Yes Status: Acute Code(s): K52.9 - NONINFECTIVE GASTROENTERITIS AND COLITIS, UNSPECIFIED SNOMED Code(s): 46978290 Comment: Resolved. Stop IV fluids, (2) CKD (chronic kidney disease) Current Visit: No Status: Acute Code(s): N18.9 - CHRONIC KIDNEY DISEASE, UNSPECIFIED SNOMED Code(s): 652619685 Comment: Now at his baseline. (3) Atrial fibrillation Current Visit: No Status: Chronic Code(s): I48.91 - UNSPECIFIED ATRIAL FIBRILLATION SNOMED Code(s): 89392741 Comment: Continue Amiodarone, rivaroxaban. (4) Arthritis Current Visit: Yes Status: Acute Code(s): M19.90 - UNSPECIFIED OSTEOARTHRITIS, UNSPECIFIED SITE SNOMED Code(s): 3077228 Comment: Fup with Dr. Contreras. PRN oxycodone give. Pt to see how well he ambulates with a walker before discharge. (5) Diabetes mellitus Current Visit: No Status: Chronic Code(s): E11.9 - TYPE 2 DIABETES MELLITUS WITHOUT COMPLICATIONS SNOMED Code(s): 51039616 Comment: Resume Lantus and Glipizide at home doses. (6) COPD (chronic obstructive pulmonary disease) Current Visit: No Status: Acute Code(s): J44.9 - CHRONIC OBSTRUCTIVE PULMONARY DISEASE, UNSPECIFIED SNOMED Code(s): 26672436 Comment: Continue albuterol, tiotropium. (7) Barretts esophagus Current Visit: No Status: Chronic Code(s): K22.70 - ESPINOZA'S ESOPHAGUS WITHOUT DYSPLASIA SNOMED Code(s): 216365656 Comment: Continue omeprazole. Status and Disposition: Discharge now. Fup Ben De Luna
[2016-10-02] MEDS: Gabapentin CAP(*) 100 MG PO SCH ×3 (08:07→22:26)
[2016-10-02] MEDS: Pentoxifylline CR TAB* 400 MG PO SCH ×3 (08:09→22:36)
[2016-10-02] MEDS: Amiodarone TAB* 200 MG PO SCH ×2 (08:09→22:27)
[2016-10-02] MEDS: Morphine TAB Extended Release (*) 15 MG TAB.ER PO SCH ×2 (08:09→19:45)
[2016-10-02] MEDS: glipiZIDE TAB* 5 MG PO SCH ×2 (08:18→18:33)
[2016-10-02] MEDS: FENOFIBRATE 145 MG PO SCH (08:29)
[2016-10-02] MEDS ORDERED: GABAPENTIN 500 MG PO SCH (09:00)
[2016-10-02] MEDS ORDERED: Spiriva Inhaler DEVICE* 1 EACH DEVICE INH ONE (09:00)
[2016-10-02 11:47] LABS: Hematocrit 36 % (42-52); Hemoglobin 11.5 g/dl (14.0-18.0); Mean Corpuscular HGB Conc 32 g/dl (31-36); Mean Corpuscular Hemoglobin 28 pg (27-31); Mean Corpuscular Volume 86 fL (80-94); Mean Platelet Volume 8 um3 (7.4-10.4); Red Blood Count 4.17 10^6/ul (4.0-5.4); Red Cell Distribution Width 15 % (10.5-15); White Blood Count 7.5 10^3/ul (3.5-10.8)
[2016-10-02 12:37] LABS: Body Fluid WBC 70146 /mcL
--- NOTE | 2016-10-02 12:41 | PN ---
Progress Note - Progress Note Date of Service: 10/02/16 Note: [phone] Morena (daughter)
[2016-10-02 12:50] LABS: Body Fluid Appearance Bloody; Body Fluid Total Cells Counted 100
--- NOTE | 2016-10-02 12:55 | RAD ---
INDICATION: Left hip pain. COMPARISON: Comparison is made with a prior x-ray study of the left hip from May 12, 2016. TECHNIQUE: An AP view of the pelvis and frontal and lateral views of the left hip were obtained. FINDINGS: The patient is status post total left hip replacement surgery. The bones and prostheses are in normal alignment. There is a small focal area of decreased density in the bone just inferior to the acetabular prostheses. Incidental note is made of mild to moderate osteoarthritic change in the right hip. IMPRESSION: STATUS POST TOTAL LEFT HIP REPLACEMENT SURGERY. THERE IS A MILD AREA OF DECREASED DENSITY PRESENT IN THE BONE ALONG THE INFERIOR ASPECT OF THE ACETABULAR PROSTHESES. CONSIDER CT IMAGING OF THE LEFT HIP WITHOUT CONTRAST FOR FURTHER EVALUATION.
[2016-10-02 13:31] LABS: Erythrocyte Sed Rate 78 mm/Hr (0-40)
--- NOTE | 2016-10-02 13:58 | PN ---
Progress Note - Progress Note Date of Service: 10/02/16 Note: Results from gram stain and fluid demonstrate no organism but 4+ neutrophils with 70k+ WBC in fluid. Pt also has increased hip pain over the last 24-36 hours in the setting of a previous hip replacement. Concerned about possible infection in both joints. Discussed with patient and Dr Lopez that because the patient has hip replacement and increased pain would consider aspiration if effusion is present. In the meantime, we will order STAT imaging studies and if an effusion is present aspirate. We will not start any antibiotics at this time. With regards to the knee, discussed with the patient that no organism is present although his fluid results and elevated CRP and ESR are concerning. He is recovering from c-diff however. Pt did report some relief of the knee pain after the aspiration. PE: NAD. left knee still warm, no erythema, effusion improved. ROM 4-110 degrees. calf soft and nontender. examination of left hip demonstrates skin intact. no erythema and difficult to discern warmth. no pain on log roll. discomfort with flexion to 90 and internal/ext rotation but mild pain. A/P left knee possible septic joint. will await cultures. please do not start abx left hip discussed with Dr Kruse about imaging. will order stat CT to look for effusion and if suspicious he will do usg guided aspiration. also discussed case with Dr Contreras with whom the patient has established care. Will continue to follow.
--- NOTE | 2016-10-02 15:02 | RAD ---
INDICATION: Left hip pain. COMPARISON: Comparison is made with a prior x-ray study of the left hip from October 02, 2016. TECHNIQUE: Contiguous axial sections were obtained of the pelvis and left hip. Images were reconstructed in the sagittal and coronal planes. FINDINGS: The patient is status post total left hip replacement surgery. The bones and prostheses are in normal alignment. There is no gross evidence for loosening. No focal abnormality is seen to correspond with the area of decreased density adjacent to the acetabular prostheses on the prior x-ray study and therefore that finding is likely artifactual. The exam is slightly limited due to metallic artifact. No joint effusion is seen. There is mild to moderate osteoarthritic change in the right hip. The visualized small large bowel appear nondistended. No enlarged pelvic or inguinal lymph nodes are seen. There is a fluid collection along the anterior left lateral aspect of the urinary bladder measuring 2.8 x 2.0 cm in size most consistent with a bladder diverticulum. IMPRESSION: STATUS POST TOTAL LEFT HIP REPLACEMENT. NO GROSS EVIDENCE FOR LOOSENING OR SIGNIFICANT FOCAL OSSEOUS ABNORMALITY.
--- NOTE | 2016-10-02 15:12 | RAD ---
INDICATION: Left hip pain evaluate for effusion. COMPARISON: Correlation is made with a prior x-ray and CT of the left hip of the same date. TECHNIQUE: Multiple real-time images of the left hip were obtained. FINDINGS: The patient is status post total left hip replacement surgery. There is a small amount of fluid present along the anterior aspect of the hip prosthesis most consistent with a small joint effusion. IMPRESSION: SMALL LEFT HIP JOINT EFFUSION.
--- NOTE | 2016-10-02 16:15 | CONS ---
CONSULTATION REPORT: DATE OF CONSULTATION: 10/02/16 ATTENDING PHYSICIAN: Crystal Cardenas MD CHIEF COMPLAINT: Left knee pain. HISTORY OF PRESENT ILLNESS: Briefly, Mr. Bryant is a 76-year-old male with C. diff colitis that has been diagnosed 6 weeks ago. He was re-admitted last evening for recent 2 to 3-day history of more fecal incontinence. He was denying any fevers or chills, nausea, vomiting, or decreased appetite. He did in the last month notice an increase in his left knee pain. He does have a history about a year ago, where he had a traumatic injury while he was in [place] and sustained an injury to his left hip as well as a quad tendon rupture on the right side. He said his knee on the left side never quite recovered, but in the last month, he has noticed more pain and swelling. He saw my partner, Dr. Contreras, reportedly who gave him an injection within the last few weeks, the injection did not help him very much. Lately, in the last day or so, he has noticed increased pain, swelling, this has gradually been increasing in the last week. He has lost range of motion. Again, no fevers or chills, but he has some pain with weightbearing. I was consulted to rule out a septic joint. PAST MEDICAL HISTORY: Significant for coronary artery disease, AFib, IBS, esophageal cancer, diabetes, hyperlipidemia, rheumatoid arthritis, COPD, hypothyroidism, GERD, BPH, chronic pain, anxiety. SURGICAL HISTORY: Significant for stent, tonsillectomy, appendectomy, TURP, left total hip arthroplasty, right quadrant tendon repair a year ago. MEDICATIONS: 1. Tylenol. 2. Albuterol. 3. Amiodarone. 4. Aspirin. 5. Atorvastatin. 6. Cyclobenzaprine. 7. Atropine. 8. Fenofibrate. 9. Finasteride. 10. Gabapentin. 11. Glipizide. 12. Insulin. 13. Levothyroxine. 14. Lorazepam. 15. Melatonin. 16. Mometasone. 17. Morphine. 18. Omeprazole. 19. Ondansetron. 20. Oxycodone. 21. Pentoxifylline. 22. Xarelto. 23. Silodosin. 24. Tiotropium bromide. 25. Tramadol. FAMILY HISTORY: Significant for diabetes, hypertension, Alzheimer's, hyperlipidemia, coronary artery disease, and colon cancer. SOCIAL HISTORY: He is a former smoker with a greater than 28-[id number] history. No alcohol or recreational drugs. He lives with his . REVIEW OF SYSTEMS: Significant for fecal incontinence, malaise, left knee pain and swelling, difficulty weightbearing on the left knee, irritation in his buttocks. Otherwise, remainder of systems is negative. PHYSICAL EXAM: He is in no acute distress. He is well developed, well nourished. He is alert and oriented x3. He has pleasant mood and normal affect. EOMI. Chest: Clear to auscultation. Heart: Regular rate and rhythm. Abdomen: Soft and nondistended. Examination of the left knee demonstrates the skin is intact. He does have a marked effusion. There is some warmth too, but there is no obvious redness. He does have an evidence of a small hematoma where an injection was given with a small amount of a hematoma. Range of motion is about 7 degrees to about 70 degrees with a decent amount of pain. His calf is soft and nontender. He is densely neuropathic distally in the first dorsal webspace; medial, lateral, dorsal and plantar foot. He has a 2+ PT pulse. He has pain with range of motion of his hip as well. DIAGNOSTIC STUDIES/LAB DATA: X-rays of the left knee were reviewed that were nonweightbearing films that demonstrated osteoarthritis, but no fractures. Labs: Recent white count on 10/01/16 was 9.7, hematocrit 41. INR 1.06. CRP of 255.89. ESR is pending. Chemistry dated 10/02/16 demonstrate sodium of 133 , potassium 3.7, chloride 103, carbon dioxide 23, BUN 26, creatinine 1.54, glucose 162. ASSESSMENT AND PLAN: He has left knee swelling with increased pain. He has difficulty with weightbearing, he says it is potentially because he has been running back and forth to the bathroom. He did have a recent steroid injection , which he attained no relief. I think at this point, it is appropriate to proceed with aspiration of the knee to check to see if there is any potential infection. The aspiration itself may bring him some relief. He is on Xarelto, so the fluid may reaccumulate, otherwise, I will do ice compression. We will follow up on the Gram stain after that. I also ordered a new CBC and ESR. After a discussion with the patient, he has elected to proceed with the aspiration. The left knee was prepped and draped in the usual sterile fashion with ChloraPrep. The 18-gauge needle was used to aspirate from the superolateral portal, approximately 40 cc of bloody fluid, 30 cc were then given by hand to the labs for stat labs. We will await the labs and follow up. I will order x- rays of his left hip as well because he is describing some left hip pain and we will keep him n.p.o. until we know for sure if it is infected or not. [id number]/CPS #: [id number] KIMBERLY
[2016-10-02] MEDS ORDERED: Insulin GLARGINE(*) 1 UNITS UNIT SUBCUT SCH (17:00)
[2016-10-02] MEDS ORDERED: Rivaroxaban TAB(*) 20 MG TAB PO SCH (18:00)
--- NOTE | 2016-10-02 18:21 | ED ---
Shaji Berry Auryana, scribed for Dawson Samaniego MD on 10/01/16 at 1337 . GI/ HPI - HPI Summary HPI Summary: 76 year old male presents with diarrhea starting 2 days ago. Patient reports 1 episode this morning and is characterized as watery diarrhea. He denies any abdominal pain or nausea. [facility] and tested negative for C. Diff. He also complains of left knee pain with bending or weight bearing - reports that he twisted his knee. Dr. Contreras is his orthopedic doctor. He denies any pain otherwise. PMHx is significant for C. Diff and fractures of both LE. His PCP is Dr. Cha - currently out of town. - History of Current Complaint Chief Complaint: EDAbdPain Time Seen by Provider: 10/01/16 13:16 Stated Complaint: DIARRHEA FOR 3 DAYS Hx Obtained From: Patient Onset/Duration: Started Days Ago - 3, Still Present Timing: Constant Severity: Mild Current Severity: Mild Pain Intensity: 0 - no pain other then left knee Associated Signs and Symptoms: Positive: Diarrhea, Other: - left knee pain. Negative: Nausea, Vomiting Aggravating Factor(s): Walking/Exertion - weight bearing and bending of left knee - Additional Pertinent History Primary Care Physician: [id number] - Allergy/Home Medications Allergies/Adverse Reactions: Allergies Allergy/AdvReac Type Severity Reaction Status Date / Time Cephalexin [From Keflex] AdvReac Mild GI Upset Verified 10/01/16 19:53 BANANAS Allergy Mild See Comment Uncoded 05/12/16 16:29 WALNUTS Allergy Mild See Comment Uncoded 05/12/16 16:29 PMH/Surg Hx/FS Hx/Imm Hx Endocrine/Hematology History: Reports: Hx Diabetes, Hx Thyroid Disease Cardiovascular History: Reports: Hx Angina, Hx Angioplasty, Hx Coronary Artery Disease, Hx Hypercholesterolemia, Hx Hypertension, Other Cardiovascular Problems /Disorders - HISTORY OF ATRIAL FIBRILLARION Denies: Hx Congestive Heart Failure, Hx Myocardial Infarction, Hx Valvular Heart Disease Respiratory History: Reports: Hx Chronic Obstructive Pulmonary Disease (COPD), Hx Sleep Apnea Denies: Hx Asthma GI History: Reports: Hx Gall Bladder Disease - removed, Hx Gastroesophageal Reflux Disease, Hx Hiatal Hernia, Hx Ulcer, Other GI Disorders - Barretts esophagus History: Denies: Hx Renal Disease Musculoskeletal History: Reports: Hx Arthritis - ARTHRITIS, Hx Rheumatoid Arthritis, Hx Osteoporosis Sensory History: Reports: Hx Cataracts - RIGHT EYE, Hx Contacts or Glasses - does not have them now Denies: Hx Hearing Aid Opthamlomology History: Reports: Hx Cataracts - RIGHT EYE, Hx Contacts or Glasses - does not have them now Neurological History: Reports: Other Neuro Impairments/Disorders - diabetic neuropathy (feet) Psychiatric History: Reports: Hx Anxiety - Cancer History Cancer Type, 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 - Surgical History Surgery Procedure, Year, and Place: 10 CARDIAC STENTS, CHOLECYSTECTOMY, APPENDECTOMY, left hip replacement, ESOPHAGEAL CA TUMOR REMOVED 2015 Hx Anesthesia Reactions: No - Immunization History Date of Tetanus Vaccine: [facility] Infectious Disease History: Reports: Hx Hepatitis - CURED Denies: Hx Clostridium Difficile, Hx Human Immunodeficiency Virus (HIV), Hx of Known/Suspected MRSA, Hx Shingles, Hx Tuberculosis, Hx Known/Suspected VRE, Hx Known/Suspected VRSA, History Other Infectious Disease, Traveled Outside the [place] in Last 30 Days - Family History Known Family History: Positive: Diabetes, Other - alzheimer's and colon CA - Social History Occupation: Employed Full-time Lives: With Family Alcohol Use: Rare Hx Substance Use: No Substance Use Type: Reports: None Hx Tobacco Use: No Smoking Status (MU): Former Smoker Type: Cigarettes Amount Used/How Often: 1.5ppd Length of Time of Smoking/Using Tobacco: 50 years Have You Smoked in the Last Year: No Review of Systems Constitutional: Negative Negative: Fever Eyes: Negative ENT: Negative Cardiovascular: Negative Respiratory: Negative Positive: Diarrhea. Negative: Abdominal Pain, Nausea Genitourinary: Negative Positive: Arthralgia - left knee pain Skin: Negative Neurological: Negative Psychological: Normal All Other Systems Reviewed And Are Negative: Yes Physical Exam Triage Information Reviewed: Yes Vital Signs On Initial Exam: Initial Vitals Temp Pulse Resp BP Pulse Ox 99.6 F 69 20 120/63 94 10/01/16 13:15 10/01/16 13:15 10/01/16 13:15 10/01/16 13:15 10/01/16 13:15 Vital Signs Reviewed: Yes Appearance: Positive: Well-Appearing, No Pain Distress, Well-Nourished Skin: Positive: Warm, Skin Color Reflects Adequate Perfusion, Dry, Other - left knee mildly warm to touch Head/Face: Positive: Normal Head/Face Inspection Eyes: Positive: Normal ENT: Positive: Normal ENT inspection Neck: Positive: Supple, Nontender Respiratory/Lung Sounds: Positive: Clear to Auscultation, Breath Sounds Present Cardiovascular: Positive: Normal, RRR, Pulses are Symmetrical in both Upper and Lower Extremities Abdomen Description: Positive: Nontender, Soft Bowel Sounds: Positive: Present Musculoskeletal: Positive: Normal, Strength/ROM Intact, Edema Left - left knee Neurological: Positive: Normal, Sensory/Motor Intact Psychiatric: Positive: Normal, Affect/Mood Appropriate - Manson Coma Scale Coma Scale Total: 15 Diagnostics - Vital Signs Vital Signs Temp Pulse Resp BP Pulse Ox 10/01/16 13:15 99.6 F 69 20 120/63 94 - Laboratory Lab Results: Lab Results 10/01/16 10/01/16 10/01/16 Range/Units 14:20 14:20 15:32 WBC 9.7 (3.5-10.8) 10^3/ul RBC 4.71 (4.0-5.4) 10^6/ul Hgb 13.0 L (14.0-18.0) g/dl Hct 41 L (42-52) % MCV 86 (80-94) fL MCH 28 (27-31) pg MCHC 32 (31-36) g/dl RDW 15 (10.5-15) % Plt Count 228 (150-450) 10^3/ul MPV 8 (7.4-10.4) um3 Neut % (Auto) 81.4 (38-83) % Lymph % (Auto) 8.1 L (25-47) % [place] % (Auto) 9.0 (1-9) % Eos % (Auto) 1.0 (0-6) % Baso % (Auto) 0.5 (0-2) % Absolute Neuts (auto) 7.9 H (1.5-7.7) 10^3/ul Absolute Lymphs (auto) 0.8 L (1.0-4.8) 10^3/ul Absolute Monos (auto) 0.9 H (0-0.8) 10^3/ul Absolute Eos (auto) 0.1 (0-0.6) 10^3/ul Absolute Basos (auto) 0.1 (0-0.2) 10^3/ul Absolute Nucleated RBC 0 10^3/ul Nucleated RBC % 0 INR (Anticoag Therapy) (0.89-1.11) Sodium 130 L (133-145) mmol/L Potassium TNP 4.2 Chloride 98 L (101-111) mmol/L Carbon Dioxide 23 (22-32) mmol/L Anion Gap 9 (2-11) mmol/L BUN 32 H (6-24) mg/dL Creatinine 1.80 H (0.67-1.17) mg/dL Est GFR ( Amer) 47.5 (>60) Est GFR (Non-Af Amer) 37.0 (>60) BUN/Creatinine Ratio 17.8 (8-20) Glucose 240 H (70-100) mg/dL POC Glucose (mg/dL) (74-106) mg/dL Calcium 9.9 (8.6-10.3) mg/dL Total Bilirubin 0.90 (0.2-1.0) mg/dL AST TNP 25 ALT 23 (7-52) U/L Alkaline Phosphatase 60 (34-104) U/L C-Reactive Protein 255.89 H (< 5.00) mg/L Total Protein 7.2 (6.4-8.9) g/dL Albumin 3.9 (3.2-5.2) g/dL Globulin 3.3 (2-4) g/dL Albumin/Globulin Ratio 1.2 (1-3) 10/02/16 10/02/16 10/02/16 Range/Units 06:11 06:11 08:02 WBC (3.5-10.8) 10^3/ul RBC (4.0-5.4) 10^6/ul Hgb (14.0-18.0) g/dl Hct (42-52) % MCV (80-94) fL MCH (27-31) pg MCHC (31-36) g/dl RDW (10.5-15) % Plt Count (150-450) 10^3/ul MPV (7.4-10.4) um3 Neut % (Auto) (38-83) % Lymph % (Auto) (25-47) % [place] % (Auto) (1-9) % Eos % (Auto) (0-6) % Baso % (Auto) (0-2) % Absolute Neuts (auto) (1.5-7.7) 10^3/ul Absolute Lymphs (auto) (1.0-4.8) 10^3/ul Absolute Monos (auto) (0-0.8) 10^3/ul Absolute Eos (auto) (0-0.6) 10^3/ul Absolute Basos (auto) (0-0.2) 10^3/ul Absolute Nucleated RBC 10^3/ul Nucleated RBC % INR (Anticoag Therapy) 1.06 (0.89-1.11) Sodium 133 (133-145) mmol/L Potassium 3.7 Chloride 103 (101-111) mmol/L Carbon Dioxide 23 (22-32) mmol/L Anion Gap 7 (2-11) mmol/L BUN 26 H (6-24) mg/dL Creatinine 1.54 H (0.67-1.17) mg/dL Est GFR ( Amer) 56.9 (>60) Est GFR (Non-Af Amer) 44.3 (>60) BUN/Creatinine Ratio 16.9 (8-20) Glucose 162 H (70-100) mg/dL POC Glucose (mg/dL) 160 H (74-106) mg/dL Calcium 8.9 (8.6-10.3) mg/dL Total Bilirubin (0.2-1.0) mg/dL AST ALT (7-52) U/L Alkaline Phosphatase (34-104) U/L C-Reactive Protein (< 5.00) mg/L Total Protein (6.4-8.9) g/dL Albumin (3.2-5.2) g/dL Globulin (2-4) g/dL Albumin/Globulin Ratio (1-3) Result Diagrams: 10/02/16 11:34 10/02/16 06:11 Lab Statement: Any lab studies that have been ordered have been reviewed, and results considered in the medical decision making process. - Radiology LEFT KNEE XR Xray Interpretation: Positive (See Comments) - IMPRESSION: The constellation of findings given the provided history is consistent with rheumatoid arthritis. Small joint effusion. Negative for fracture or malalignment. Radiology Interpretation Completed By: Radiologist JARON Course/Dx - Course Course Of Treatment: Mr. Bryant has had a recurrence of his diarrhea and is weak. He is unable to take care of himself currently and I asked the hospitalist to evaluate him. - Diagnoses Provider Diagnoses: Inflammation of joint of knee Discharge - Discharge Plan Condition: Improved Disposition: ADMITTED TO [facility] documentation as recorded by the Shaji candelario Auryana accurately reflects the service I personally performed and the decisions made by me, Dawson Samaniego MD.
--- NOTE | 2016-10-02 18:29 | RAD ---
INDICATION: Left hip pain. COMPARISON: There are no prior studies available for comparison. TECHNIQUE: The benefits and risks of the procedure were explained to the patient. The patient consented to the exam. A timeout was performed before beginning the procedure. 1 minute 11 seconds of intermittent fluoroscopic guidance were used during the procedure. The patient was prepped and draped in the usual sterile fashion. The patient's anterior thigh was anesthetized with 1% lidocaine. Using fluoroscopic guidance a 22-gauge needle was placed within the left hip joint. The patient is status post total left hip replacement surgery. Several attempts were made to aspirate fluid without success. Normal saline then was infused into the joint although only approximately 1 mL of a clear aspirate was returned. A repeat ultrasound was then performed and only minimal joint fluid was noted. The aspirate was sent to the lab for further evaluation. The patient tolerated the procedure well without incident. IMPRESSION: LEFT HIP ASPIRATION NOTED. CPT II Codes: 6045F
--- NOTE | 2016-10-02 19:27 | DS ---
CC: Dr. Cha; Dr. Contreras DISCHARGE SUMMARY: DATE OF ADMISSION: 10/01/16 DATE OF DISCHARGE: 10/02/16 HISTORY: This 76-year-old man presented with diarrhea for 2 or 3 days, had some fecal incontinence. He had no nausea or vomiting. There was no pain. His fecal incontinence was actually due to the fact that his left knee has had chronic problems, which were exacerbated while running to the bathroom and he could not make it to the bathroom in time. The rest of the history is detailed in the admission note. The patient was admitted and given intravenous fluids. He had [id number] kidney disease. His creatinine returned to his baseline after hydration in the emergency room and overnight on the floor. He had no bowel movements from the time of admission to the time of discharge. His appetite was good. He felt well enough to go home with the proviso that he could ambulate despite his left knee pain. On the morning of discharge, he got his usual dose of morphine extended release and a p.r.n. dose of oxycodone 10 mg p.o. He will make sure he can ambulate adequately with a walker before going home. He will have a walker to use at home as well. He has an adequate supply of all his medications including the oxycodone. I note he has been treated and examined by Dr. Contreras for his left knee pain and swelling. I told him that he make another appointment to see Dr. Contreras in 1 to 2 weeks or sooner if his left knee was very painful. FINAL DIAGNOSES: 1. Gastroenteritis. 2. Chronic kidney disease with acute on chronic exacerbation. 3. Atrial fibrillation. 4. Arthritis. 5. Diabetes. 6. Chronic obstructive pulmonary disease. 7. Batista's esophagus. DISCHARGE MEDICATIONS: 1. Methylfolate vitamin B6 daily. 2. Finasteride 5 mg h.s. 3. Pantoprazole 40 mg b.i.d. 4. Oxycodone 10 mg every 6 hours p.r.n. 5. Amiodarone 200 mg b.i.d. 6. Nitroglycerin 0.4 mg p.r.n. 7. Glipizide XL 5 mg b.i.d. 8. Rosuvastatin 40 mg h.s. 9. Folic acid 1 mg daily. 10. Albuterol 1 puff 4 times a day p.r.n. 11. Levothyroxine 0.175 mg daily. 12. Glargine insulin as prescribed. 13. Lovaza 1 capsule b.i.d. 14. Pentoxifylline 400 mg t.i.d. 15. Cyclosporine 0.05% 1 drop both eyes b.i.d. 16. Nystatin apply topically t.i.d. p.r.n. 17. Cyclobenzaprine 10 mg h.s. 18. Mometasone apply daily p.r.n. 19. Senna 2 tabs daily. 20. Ferrous sulfate 65 mg h.s. 21. Refresh Optive 1 drop both eyes p.r.n. 22. Aspirin 81 mg h.s. 23. Lorazepam 1 mg t.i.d. p.r.n. 24. Fenofibrate 1 tablet daily. 25. Silodosin 8 mg h.s. 26. Morphine extended release 15 mg b.i.d. 27. Methenamine hippurate 1 g b.i.d. 28. Furosemide 20 mg b.i.d. 29. Gabapentin 500 mg t.i.d. 30. Rivaroxaban 20 mg h.s. 31. Testosterone 200 mg intramuscular every 10 days. 32. Ascorbic acid 1 tablet h.s. 33. Afrin nasal spray 1 spray bilaterally every 12 hours. 34. Ammonium lactate apply topically every 12 hours on feet. 35. Biotene oral rinse 15 mg h.s. p.r.n. 36. OCuSOFT lid scrub plus 1 pad both eyes every 12 hours. [id number]/[facility] #: [id number] [facility] CENTERAdam
[2016-10-02] MEDS: Finasteride TAB* 5 MG PO SCH (19:46)
[2016-10-02] MEDS: Atorvastatin* 80 MG TAB PO SCH (19:46)
[2016-10-02] MEDS: Cyclobenzaprine TAB* 10 MG PO SCH (19:48)
[2016-10-02] MEDS: Silodosin(NF) 8 MG CAP PO SCH (20:36)
[2016-10-02] MEDS: Aspirin Low Dose CHEW TAB* 81 MG PO SCH (22:24)
[2016-10-02 22:41] LABS: Hematocrit 35 % (42-52); Hemoglobin 11.4 g/dl (14.0-18.0); Mean Corpuscular HGB Conc 33 g/dl (31-36); Mean Corpuscular Hemoglobin 28 pg (27-31); Mean Corpuscular Volume 85 fL (80-94); Mean Platelet Volume 7 um3 (7.4-10.4); Red Blood Count 4.11 10^6/ul (4.0-5.4); Red Cell Distribution Width 15 % (10.5-15); White Blood Count 7.2 10^3/ul (3.5-10.8)
[2016-10-02 22:52] LABS: EGFR African American 65.7 (>60); EGFR Non-African American 51.1 (>60)
[2016-10-02] MEDS: Heparin DRIP 25,000 UNITS(*) 25,000 UNITS/500 ML BAG IVPB SCH (23:23)
[2016-10-02] MEDS: Heparin VIAL(*) 5000 UNITS/ML VIAL (FIVE THOUSAND) IV PRN (23:29)
[2016-10-03] MEDS: Levothyroxine TAB* 125 MCG TAB PO SCH (06:10)
[2016-10-03] MEDS: Morphine TAB Extended Release (*) 15 MG TAB.ER PO SCH ×2 (06:13→18:09)
[2016-10-03 06:56] LABS: Hematocrit 35 % (42-52); Hemoglobin 11.3 g/dl (14.0-18.0); Mean Corpuscular HGB Conc 33 g/dl (31-36); Mean Corpuscular Hemoglobin 28 pg (27-31); Mean Corpuscular Volume 87 fL (80-94); Mean Platelet Volume 8 um3 (7.4-10.4); Red Blood Count 4.01 10^6/ul (4.0-5.4); Red Cell Distribution Width 15 % (10.5-15); White Blood Count 6.1 10^3/ul (3.5-10.8)
[2016-10-03] MEDS: oxyCODONE TAB* 5 MG TAB PO PRN ×3 (07:45→23:25)
[2016-10-03] MEDS: Heparin VIAL(*) 5000 UNITS/ML VIAL (FIVE THOUSAND) IV PRN (07:47)
[2016-10-03] MEDS: Tiotropium CAP.INH* CAP.INH/18 MCG INH SCH (08:09)
[2016-10-03] MEDS: Mometasone/Formoter 200/5 MDI INH SCH ×2 (08:10→19:40)
[2016-10-03] MEDS: glipiZIDE TAB* 5 MG PO SCH (08:16)
[2016-10-03] MEDS: FENOFIBRATE 145 MG PO SCH (08:20)
[2016-10-03] MEDS: Gabapentin CAP(*) 400 MG PO SCH ×3 (08:23→22:03)
[2016-10-03] MEDS: glipiZIDE TAB.XL* 5 MG PO SCH ×2 (08:23→22:05)
[2016-10-03] MEDS: Gabapentin CAP(*) 100 MG PO SCH ×3 (08:25→22:04)
[2016-10-03] MEDS: Omeprazole CAP* 20 MG PO SCH ×2 (08:25→22:02)
[2016-10-03] MEDS: Amiodarone TAB* 200 MG PO SCH ×2 (08:25→22:04)
[2016-10-03] MEDS: Pentoxifylline CR TAB* 400 MG PO SCH ×3 (08:25→22:03)
--- NOTE | 2016-10-03 09:03 | PN ---
Progress Note - Progress Note Date of Service: 10/03/16 SOAP: Subjective: pt with left hip and knee pain. knee pain improved. states that his buttock/hip hurts severely. he has been laying in bed and not mobilizing. remains afebrile. underwent left hip aspiration but little fluid. cultures pending for both knee and hip Objective: Temp Pulse Resp BP Pulse Ox 98.3 F 65 18 130/60 93 10/03/16 07:34 10/03/16 08:12 10/03/16 08:25 10/03/16 07:34 10/03/16 08:12 NAD. left hip skin intact. no erythema or warmth, more pain in buttocks with ROM but not specific to hip. left knee: skin intact. no erythema or warmth. able to flex/ext more comfortably 3-100 degrees. nontender. calf soft and nontender, densely neuropathic. brisk cap refill rolled patient to side and visualized mild erythema about buttock Microbiology 10/02/16 17:45 Wound Gram Stain - Final 10/02/16 10:47 Body Fluid - Knee Left Gram Stain - Final 10/02/16 10:47 Body Fluid - Knee Left Skin and Soft Tissue MRSA/MSSA (PCR - Final Mrsa Negative S.aureus Negative 10/02/16 10:47 Body Fluid - Knee Left Acid Fast Bacilli Smear - Final Laboratory Results - last 24 hr 10/02/16 10/02/16 10/02/16 10:47 11:34 11:55 WBC 7.5 RBC 4.17 Hgb 11.5 L Hct 36 L MCV 86 MCH 28 MCHC 32 RDW 15 Plt Count 189 MPV 8 Neut % (Auto) 79.2 Lymph % (Auto) 8.9 L [place] % (Auto) 9.9 H Eos % (Auto) 1.5 Baso % (Auto) 0.5 Absolute Neuts (auto) 5.9 Absolute Lymphs (auto) 0.7 L Absolute Monos (auto) 0.7 Absolute Eos (auto) 0.1 Absolute Basos (auto) 0 Absolute Nucleated RBC 0 Nucleated RBC % 0 ESR 78 H APTT BUN Creatinine Est GFR ( Amer) Est GFR (Non-Af Amer) POC Glucose (mg/dL) 234 H Fluid Source Synovial fluid Fluid Volume 4.0 Fluid Color Red Fluid Appearance Bloody Fluid WBC 22606 Fluid RBC 543294 Fluid Tot Cell Count 100 Fluid Neutrophils 93 Fluid Band Neutrophils Fluid Lymphocytes 5 Fluid Reactive Lymphs Fluid Monocytes 2 Fluid Eosinophils Fluid Basophils Fluid Promyelocytes Fluid Myelocytes Fluid Metamyelocytes Fluid Blast Cells Fluid Nucleated RBCs Fluid Other Cells Fluid Cell Count Rvw By Fluid Comment 10/02/16 10/02/16 10/02/16 17:45 19:55 22:32 WBC RBC Hgb Hct MCV MCH MCHC RDW Plt Count MPV Neut % (Auto) Lymph % (Auto) [place] % (Auto) Eos % (Auto) Baso % (Auto) Absolute Neuts (auto) Absolute Lymphs (auto) Absolute Monos (auto) Absolute Eos (auto) Absolute Basos (auto) Absolute Nucleated RBC Nucleated RBC % ESR APTT BUN 19 Creatinine 1.36 H Est GFR ( Amer) 65.7 Est GFR (Non-Af Amer) 51.1 POC Glucose (mg/dL) 180 H Fluid Source Cancelled Fluid Volume Cancelled Fluid Color Cancelled Fluid Appearance Cancelled Fluid WBC Cancelled Fluid RBC Cancelled Fluid Tot Cell Count Cancelled Fluid Neutrophils Cancelled Fluid Band Neutrophils Cancelled Fluid Lymphocytes Cancelled Fluid Reactive Lymphs Cancelled Fluid Monocytes Cancelled Fluid Eosinophils Cancelled Fluid Basophils Cancelled Fluid Promyelocytes Cancelled Fluid Myelocytes Cancelled Fluid Metamyelocytes Cancelled Fluid Blast Cells Cancelled Fluid Nucleated RBCs Cancelled Fluid Other Cells Cancelled Fluid Cell Count Rvw By Cancelled Fluid Comment Cancelled 10/02/16 10/02/16 10/03/16 22:32 22:32 06:36 WBC 7.2 RBC 4.11 Hgb 11.4 L Hct 35 L MCV 85 MCH 28 MCHC 33 RDW 15 Plt Count 210 MPV 7 L Neut % (Auto) 80.0 Lymph % (Auto) 9.4 L [place] % (Auto) 9.1 H Eos % (Auto) 1.2 Baso % (Auto) 0.3 Absolute Neuts (auto) 5.8 Absolute Lymphs (auto) 0.7 L Absolute Monos (auto) 0.7 Absolute Eos (auto) 0.1 Absolute Basos (auto) 0 Absolute Nucleated RBC 0 Nucleated RBC % 0 ESR APTT 29.4 43.5 H BUN Creatinine Est GFR ( Amer) Est GFR (Non-Af Amer) POC Glucose (mg/dL) Fluid Source Fluid Volume Fluid Color Fluid Appearance Fluid WBC Fluid RBC Fluid Tot Cell Count Fluid Neutrophils Fluid Band Neutrophils Fluid Lymphocytes Fluid Reactive Lymphs Fluid Monocytes Fluid Eosinophils Fluid Basophils Fluid Promyelocytes Fluid Myelocytes Fluid Metamyelocytes Fluid Blast Cells Fluid Nucleated RBCs Fluid Other Cells Fluid Cell Count Rvw By Fluid Comment 10/03/16 10/03/16 06:36 07:57 WBC 6.1 RBC 4.01 Hgb 11.3 L Hct 35 L MCV 87 MCH 28 MCHC 33 RDW 15 Plt Count 226 MPV 8 Neut % (Auto) 71.5 Lymph % (Auto) 15.4 L [place] % (Auto) 10.7 H Eos % (Auto) 1.9 Baso % (Auto) 0.5 Absolute Neuts (auto) 4.4 Absolute Lymphs (auto) 0.9 L Absolute Monos (auto) 0.7 Absolute Eos (auto) 0.1 Absolute Basos (auto) 0 Absolute Nucleated RBC 0 Nucleated RBC % 0 ESR APTT BUN Creatinine Est GFR ( Amer) Est GFR (Non-Af Amer) POC Glucose (mg/dL) 133 H Fluid Source Fluid Volume Fluid Color Fluid Appearance Fluid WBC Fluid RBC Fluid Tot Cell Count Fluid Neutrophils Fluid Band Neutrophils Fluid Lymphocytes Fluid Reactive Lymphs Fluid Monocytes Fluid Eosinophils Fluid Basophils Fluid Promyelocytes Fluid Myelocytes Fluid Metamyelocytes Fluid Blast Cells Fluid Nucleated RBCs Fluid Other Cells Fluid Cell Count Rvw By Fluid Comment Assessment: concern for left knee and hip infection Plan: awaiting cultures. would mobilize patient change mattress to softer mattress, q2 turns. PT/OT-wbat eval skin on buttock for any maceration spoke with Dr Lopez no antibiotics at this time.
--- NOTE | 2016-10-03 12:31 | PN ---
Subjective Date of Service: 10/03/16 Interval History: Both L hip pain and L knee pain somewhat better today. Pt walked with walker to but feels he will need STR before going home. Objective Active Medications: Acetaminophen (Tylenol Tab*) 650 mg PO Q6H PRN PRN Reason: FEVER/PAIN Albuterol (Ventolin 2.5 Mg/3 Ml Neb.Aislinn*) 2.5 mg INH Q2H PRN PRN Reason: SOB/WHEEZING Amiodarone HCl (Cordarone Tab*) 200 mg PO BID [facility] Last Admin: 10/03/16 08:25 Dose: 200 mg Aspirin (Aspirin Low Dose Tab*) 81 mg PO BEDTIME [facility] Last Admin: 10/02/16 22:24 Dose: 81 mg Atorvastatin Calcium (Lipitor*) 80 mg PO QPM [facility] Last Admin: 10/02/16 19:46 Dose: 80 mg Cyclobenzaprine HCl (Flexeril Tab*) 10 mg PO QPM [facility] Last Admin: 10/02/16 19:48 Dose: 10 mg Diphenoxylate HCl/Atropine (Lomotil Tab*) 1 tab PO BID PRN PRN Reason: DIARRHEA Fenofibrate (Tricor(Nf)) 145 mg PO QAM [facility] PRN Reason: Protocol Last Admin: 10/03/16 08:20 Dose: Not Given Finasteride (Proscar Tab*) 5 mg PO QPM [facility] Last Admin: 10/02/16 19:46 Dose: 5 mg Gabapentin (Neurontin Cap(*)) 400 mg PO TID [facility] Last Admin: 10/03/16 08:23 Dose: 400 mg Gabapentin (Neurontin Cap(*)) 100 mg PO TID [facility] Last Admin: 10/03/16 08:25 Dose: 100 mg Glipizide (Glucotrol Xl*) 5 mg PO BID [facility] Last Admin: 10/03/16 08:23 Dose: 5 mg Heparin Sodium (Porcine) (Heparin Vial(*)) 0 units IV .FOR BOLUSES PRN PRN Reason: HEPARIN DRIP BOLUSES Last Admin: 10/03/16 07:47 Dose: 4,500 units Heparin Sodium/Dextrose (Heparin Drip 25,000 Units(*)) 25,000 units in 500 mls @ 0 mls/hr IVPB .(INITIAL RATE) [facility]; Per Protocol PRN Reason: Protocol Last Admin: 10/02/16 23:23 Dose: 31 mls/hr Insulin Glargine (Lantus(*)) 38 units SUBCUT 1700 [facility] Last Admin: 10/02/16 19:58 Dose: 38 units Levothyroxine Sodium (Synthroid Tab*) 187.5 mcg PO 0600 [facility] Last Admin: 10/03/16 06:10 Dose: 187.5 mcg Lorazepam (Ativan Tab(*)) 1 mg PO TID PRN PRN Reason: ANXIETY Melatonin (Melatonin (Nf)) 3 mg PO BEDTIME PRN; Protocol PRN Reason: Sleep Mometasone Furoate/Formoterol Fumar (Dulera 200/5 Mdi*) 2 puff INH BID [facility] Last Admin: 10/03/16 08:10 Dose: 2 puff Morphine Sulfate (Ms Contin(*)) 15 mg PO 0700,1900 [facility] Last Admin: 10/03/16 06:13 Dose: 15 mg Omeprazole (Prilosec Cap*) 20 mg PO BID [facility] Last Admin: 10/03/16 08:25 Dose: 20 mg Ondansetron HCl (Zofran Inj*) 4 mg IV Q6H PRN PRN Reason: NAUSEA Oxycodone HCl (Roxycodone Tab*) 10 mg PO Q6H PRN PRN Reason: PAIN Last Admin: 10/03/16 07:45 Dose: 10 mg Pentoxifylline (Trental Cr Tab*) 400 mg PO TID [facility] Last Admin: 10/03/16 08:25 Dose: 400 mg Silodosin (Rapaflo(Nf)) 8 mg PO QPM [facility] Last Admin: 10/02/16 20:36 Dose: Not Given Tiotropium [place] (Spiriva Cap.Inh*) 1 cap INH DAILY [facility] Last Admin: 10/03/16 08:09 Dose: 1 cap Tramadol HCl (Ultram*) 50 mg PO Q6H PRN PRN Reason: PAIN Last Admin: 10/01/16 21:52 Dose: 50 mg Vital Signs 10/02/16 10/02/16 10/02/16 13:33 13:34 16:02 Temperature Pulse Rate Respiratory 16 16 20 Rate Blood Pressure (mmHg) O2 Sat by Pulse Oximetry 10/02/16 10/02/16 10/02/16 16:11 19:29 19:45 Temperature 98.1 F 97.5 F Pulse Rate 68 65 Respiratory 16 20 18 Rate Blood Pressure 106/86 131/62 (mmHg) O2 Sat by Pulse 95 95 Oximetry 10/02/16 10/02/16 10/02/16 19:48 20:00 20:15 Temperature Pulse Rate 67 Respiratory 18 18 16 Rate Blood Pressure (mmHg) O2 Sat by Pulse 94 Oximetry 10/02/16 10/02/16 10/02/16 22:23 22:25 22:26 Temperature Pulse Rate Respiratory 18 18 18 Rate Blood Pressure (mmHg) O2 Sat by Pulse Oximetry 10/02/16 10/03/16 10/03/16 23:27 00:23 03:15 Temperature 98.5 F 98.5 F Pulse Rate 69 66 Respiratory 16 18 16 Rate Blood Pressure 135/55 140/58 (mmHg) O2 Sat by Pulse 92 93 Oximetry 10/03/16 10/03/16 10/03/16 06:13 07:34 07:45 Temperature 98.3 F Pulse Rate 64 Respiratory 16 16 16 Rate Blood Pressure 130/60 (mmHg) O2 Sat by Pulse 94 Oximetry 10/03/16 10/03/16 10/03/16 08:11 08:12 08:23 Temperature Pulse Rate 65 Respiratory 17 18 Rate Blood Pressure (mmHg) O2 Sat by Pulse 93 93 Oximetry 10/03/16 08:25 Temperature Pulse Rate Respiratory 18 Rate Blood Pressure (mmHg) O2 Sat by Pulse Oximetry Oxygen Devices in Use Now: None Appearance: Alert, partly up in bed. In good spirits. Looks comfortable. Eyes: No Scleral Icterus Extremities: No Edema, No Clubbing, Cyanosis, - - L knee swollen but smaller than yesterday. Also sl less warm. Skin: No Rash or Ulcers, No Nodules or Sclerosis, - Neurological: Alert and Oriented x 3, NL Sensation Result Diagrams: 10/03/16 06:36 10/02/16 22:32 Additional Lab and Data: Lab Results 10/01/16 10/01/16 10/01/16 Range/Units 14:20 14:20 15:32 WBC 9.7 (3.5-10.8) 10^3/ul RBC 4.71 (4.0-5.4) 10^6/ul Hgb 13.0 L (14.0-18.0) g/dl Hct 41 L (42-52) % MCV 86 (80-94) fL MCH 28 (27-31) pg MCHC 32 (31-36) g/dl RDW 15 (10.5-15) % Plt Count 228 (150-450) 10^3/ul MPV 8 (7.4-10.4) um3 Neut % (Auto) 81.4 (38-83) % Lymph % (Auto) 8.1 L (25-47) % [place] % (Auto) 9.0 (1-9) % Eos % (Auto) 1.0 (0-6) % Baso % (Auto) 0.5 (0-2) % Absolute Neuts (auto) 7.9 H (1.5-7.7) 10^3/ul Absolute Lymphs (auto) 0.8 L (1.0-4.8) 10^3/ul Absolute Monos (auto) 0.9 H (0-0.8) 10^3/ul Absolute Eos (auto) 0.1 (0-0.6) 10^3/ul Absolute Basos (auto) 0.1 (0-0.2) 10^3/ul Absolute Nucleated RBC 0 10^3/ul Nucleated RBC % 0 INR (Anticoag Therapy) (0.89-1.11) Sodium 130 L (133-145) mmol/L Potassium TNP 4.2 Chloride 98 L (101-111) mmol/L Carbon Dioxide 23 (22-32) mmol/L Anion Gap 9 (2-11) mmol/L BUN 32 H (6-24) mg/dL Creatinine 1.80 H (0.67-1.17) mg/dL Est GFR ( Amer) 47.5 (>60) Est GFR (Non-Af Amer) 37.0 (>60) BUN/Creatinine Ratio 17.8 (8-20) Glucose 240 H (70-100) mg/dL POC Glucose (mg/dL) (74-106) mg/dL Calcium 9.9 (8.6-10.3) mg/dL Total Bilirubin 0.90 (0.2-1.0) mg/dL AST TNP 25 ALT 23 (7-52) U/L Alkaline Phosphatase 60 (34-104) U/L C-Reactive Protein 255.89 H (< 5.00) mg/L Total Protein 7.2 (6.4-8.9) g/dL Albumin 3.9 (3.2-5.2) g/dL Globulin 3.3 (2-4) g/dL Albumin/Globulin Ratio 1.2 (1-3) 10/02/16 10/02/16 10/02/16 Range/Units 06:11 06:11 08:02 WBC (3.5-10.8) 10^3/ul RBC (4.0-5.4) 10^6/ul Hgb (14.0-18.0) g/dl Hct (42-52) % MCV (80-94) fL MCH (27-31) pg MCHC (31-36) g/dl RDW (10.5-15) % Plt Count (150-450) 10^3/ul MPV (7.4-10.4) um3 Neut % (Auto) (38-83) % Lymph % (Auto) (25-47) % [place] % (Auto) (1-9) % Eos % (Auto) (0-6) % Baso % (Auto) (0-2) % Absolute Neuts (auto) (1.5-7.7) 10^3/ul Absolute Lymphs (auto) (1.0-4.8) 10^3/ul Absolute Monos (auto) (0-0.8) 10^3/ul Absolute Eos (auto) (0-0.6) 10^3/ul Absolute Basos (auto) (0-0.2) 10^3/ul Absolute Nucleated RBC 10^3/ul Nucleated RBC % INR (Anticoag Therapy) 1.06 (0.89-1.11) Sodium 133 (133-145) mmol/L Potassium 3.7 Chloride 103 (101-111) mmol/L Carbon Dioxide 23 (22-32) mmol/L Anion Gap 7 (2-11) mmol/L BUN 26 H (6-24) mg/dL Creatinine 1.54 H (0.67-1.17) mg/dL Est GFR ( Amer) 56.9 (>60) Est GFR (Non-Af Amer) 44.3 (>60) BUN/Creatinine Ratio 16.9 (8-20) Glucose 162 H (70-100) mg/dL POC Glucose (mg/dL) 160 H (74-106) mg/dL Calcium 8.9 (8.6-10.3) mg/dL Total Bilirubin (0.2-1.0) mg/dL AST ALT (7-52) U/L Alkaline Phosphatase (34-104) U/L C-Reactive Protein (< 5.00) mg/L Total Protein (6.4-8.9) g/dL Albumin (3.2-5.2) g/dL Globulin (2-4) g/dL Albumin/Globulin Ratio (1-3) Microbiology and Other Data: Microbiology 10/02/16 17:45 Gram Stain - Final Wound Wound Culture - Preliminary No Growth Day 1 10/02/16 10:47 Gram Stain - Final Body Fluid - Knee Left Body Fluid Culture - Preliminary No Growth Day 1 Anaerobic Culture - Preliminary No Growth Day 1 Skin and Soft Tissue MRSA/MSSA (PCR - Final Mrsa Negative S.aureus Negative 10/02/16 10:47 Acid Fast Bacilli Smear - Final Body Fluid - Knee Left Assess/Plan/Problems-Billing Assessment: - Patient Problems (1) Gastroenteritis Current Visit: Yes Status: Acute Code(s): K52.9 - NONINFECTIVE GASTROENTERITIS AND COLITIS, UNSPECIFIED SNOMED Code(s): 35969747 Comment: Resolved. (2) CKD (chronic kidney disease) Current Visit: No Status: Acute Code(s): N18.9 - CHRONIC KIDNEY DISEASE, UNSPECIFIED SNOMED Code(s): 955748779 Comment: Now at his baseline. (3) Atrial fibrillation Current Visit: No Status: Chronic Code(s): I48.91 - UNSPECIFIED ATRIAL FIBRILLATION SNOMED Code(s): 37850166 Comment: Continue Amiodarone. Rivaroxaban on hold pending question of joint washout, now on IV heparin. (4) Arthritis Current Visit: Yes Status: Acute Code(s): M19.90 - UNSPECIFIED OSTEOARTHRITIS, UNSPECIFIED SITE SNOMED Code(s): 7671333 Comment: Discussed with Dr. Cardenas. Both L hip and L knee aspirated, C&S pending. (5) Diabetes mellitus Current Visit: No Status: Chronic Code(s): E11.9 - TYPE 2 DIABETES MELLITUS WITHOUT COMPLICATIONS SNOMED Code(s): 48492805 Comment: Increase Lantus to 42 U q 1700 hrs, continue glipizide XL 5 mg bid. (6) COPD (chronic obstructive pulmonary disease) Current Visit: No Status: Acute Code(s): J44.9 - CHRONIC OBSTRUCTIVE PULMONARY DISEASE, UNSPECIFIED SNOMED Code(s): 99809074 Comment: Continue albuterol, tiotropium. (7) Barretts esophagus Current Visit: No Status: Chronic Code(s): K22.70 - ESPINOZA'S ESOPHAGUS WITHOUT DYSPLASIA SNOMED Code(s): 582892132 Comment: Continue omeprazole. Status and Disposition: Discharge now. [place]up [place]
[2016-10-03] MEDS ORDERED: Benzocaine/Menthol LOZ* 1 LOZENGE PO PRN (12:46)
[2016-10-03] MEDS: Heparin DRIP 25,000 UNITS(*) 25,000 UNITS/500 ML BAG IVPB SCH (14:23)
[2016-10-03] MEDS: Cyclobenzaprine TAB* 10 MG PO SCH (17:28)
[2016-10-03] MEDS: Finasteride TAB* 5 MG PO SCH (17:28)
[2016-10-03] MEDS: Atorvastatin* 80 MG TAB PO SCH (17:29)
[2016-10-03] MEDS: Insulin GLARGINE(*) 1 UNITS UNIT SUBCUT SCH (17:30)
[2016-10-03] MEDS: Aspirin Low Dose CHEW TAB* 81 MG PO SCH (22:04)
[2016-10-03] MEDS: Silodosin(NF) 8 MG CAP PO SCH ×2 (22:05→22:58)
[2016-10-03] MEDS: SILODOSIN 8 MG PO SCH (22:06)
[2016-10-03] MEDS ORDERED: Senna/Docusate (NF) TAB PO SCH (22:21)
[2016-10-03] MEDS: Magnesium Hydroxide LIQ* 30 ML UDC PO SCH (23:21)
[2016-10-03] MEDS: Docusate CAP* 100 MG PO SCH (23:52)
[2016-10-03] MEDS: Senna TAB PO SCH (23:52)
[2016-10-04] MEDS: Magnesium Hydroxide LIQ* 30 ML UDC PO SCH (03:32)
[2016-10-04] MEDS: Heparin DRIP 25,000 UNITS(*) 25,000 UNITS/500 ML BAG IVPB SCH (05:20)
[2016-10-04] MEDS: Levothyroxine TAB* 125 MCG TAB PO SCH (06:03)
[2016-10-04] MEDS: Morphine TAB Extended Release (*) 15 MG TAB.ER PO SCH (06:03)
[2016-10-04 06:40] LABS: Hematocrit 34 % (42-52); Hemoglobin 11.1 g/dl (14.0-18.0); Mean Corpuscular HGB Conc 33 g/dl (31-36); Mean Corpuscular Hemoglobin 29 pg (27-31); Mean Corpuscular Volume 87 fL (80-94); Mean Platelet Volume 8 um3 (7.4-10.4); Red Blood Count 3.91 10^6/ul (4.0-5.4); Red Cell Distribution Width 15 % (10.5-15); White Blood Count 6.3 10^3/ul (3.5-10.8)
[2016-10-04 06:49] LABS: EGFR African American 65.1 (>60); EGFR Non-African American 50.7 (>60)
[2016-10-04] MEDS: Mometasone/Formoter 200/5 MDI INH SCH ×2 (07:55→19:47)
[2016-10-04] MEDS: Tiotropium CAP.INH* CAP.INH/18 MCG INH SCH (07:55)
[2016-10-04] MEDS: FENOFIBRATE 145 MG PO SCH (08:09)
[2016-10-04] MEDS: Gabapentin CAP(*) 100 MG PO SCH ×3 (08:11→21:25)
[2016-10-04] MEDS: Gabapentin CAP(*) 400 MG PO SCH ×3 (08:12→21:26)
[2016-10-04] MEDS: glipiZIDE TAB.XL* 5 MG PO SCH ×2 (08:13→21:25)
[2016-10-04] MEDS: Amiodarone TAB* 200 MG PO SCH (08:13)
[2016-10-04] MEDS: Omeprazole CAP* 20 MG PO SCH ×2 (08:13→21:23)
[2016-10-04] MEDS: Pentoxifylline CR TAB* 400 MG PO SCH ×3 (08:13→21:24)
[2016-10-04] MEDS: Heparin VIAL(*) 5000 UNITS/ML VIAL (FIVE THOUSAND) IV PRN (08:16)
[2016-10-04] MEDS: oxyCODONE TAB* 5 MG TAB PO PRN ×2 (09:57→16:34)
--- NOTE | 2016-10-04 11:16 | PN ---
Progress Note - Progress Note Date of Service: 10/04/16 SOAP: Subjective: []Patient seen at bedside, lying supine. He complains of Left gluteal pain, but it was minimal overnight as he was lying in a better position. He reports his left knee pain is minimal. Objective: [] Vital Signs Temp 97.2 F 10/04/16 04:53 Pulse 66 10/04/16 09:39 Resp 24 10/04/16 09:57 BP 130/54 10/04/16 08:15 Pulse Ox 92 10/04/16 09:39 Intake & Output 10/03/16 10/04/16 10/04/16 18:59 06:59 18:59 Intake Total 1482 1037 360 Output Total 1100 1100 300 Balance 382 -63 60 Weight 247 lb 6.4 oz Intake: Medicated IV 232 heparin 232 Heparin 260 517 Oral 990 520 360 Output: Urine 1100 1100 300 Other: Estimated Void Large Medium Date of Last Bowel 0 Movement # Bowel Movements 0 0 # Voids 1 1 Laboratory Results - last 24 hr 10/02/16 10/03/16 10/03/16 10:47 11:53 14:37 WBC RBC Hgb Hct MCV MCH MCHC RDW Plt Count MPV Neut % (Auto) Lymph % (Auto) [place] % (Auto) Eos % (Auto) Baso % (Auto) Absolute Neuts (auto) Absolute Lymphs (auto) Absolute Monos (auto) Absolute Eos (auto) Absolute Basos (auto) Absolute Nucleated RBC Nucleated RBC % APTT 55.7 H BUN Creatinine Est GFR ( Amer) Est GFR (Non-Af Amer) POC Glucose (mg/dL) 228 H Fluid Cell Count Rvw By 10/03/16 10/03/16 10/04/16 16:53 22:30 05:57 WBC RBC Hgb Hct MCV MCH MCHC RDW Plt Count MPV Neut % (Auto) Lymph % (Auto) [place] % (Auto) Eos % (Auto) Baso % (Auto) Absolute Neuts (auto) Absolute Lymphs (auto) Absolute Monos (auto) Absolute Eos (auto) Absolute Basos (auto) Absolute Nucleated RBC Nucleated RBC % APTT 52.3 H BUN 15 Creatinine 1.37 H Est GFR ( Amer) 65.1 Est GFR (Non-Af Amer) 50.7 POC Glucose (mg/dL) 163 H Fluid Cell Count Rvw By 10/04/16 10/04/16 10/04/16 05:57 05:57 07:42 WBC 6.3 RBC 3.91 L Hgb 11.1 L Hct 34 L MCV 87 MCH 29 MCHC 33 RDW 15 Plt Count 242 MPV 8 Neut % (Auto) 74.3 Lymph % (Auto) 12.4 L [place] % (Auto) 10.2 H Eos % (Auto) 2.4 Baso % (Auto) 0.7 Absolute Neuts (auto) 4.6 Absolute Lymphs (auto) 0.8 L Absolute Monos (auto) 0.6 Absolute Eos (auto) 0.1 Absolute Basos (auto) 0 Absolute Nucleated RBC 0 Nucleated RBC % 0 APTT 42.8 H BUN Creatinine Est GFR ( Amer) Est GFR (Non-Af Amer) POC Glucose (mg/dL) 115 H Fluid Cell Count Rvw By Left knee with diffuse swelling, mild warmth, no erythema. Active ROM 0-85 degrees, calf nontender and soft, +DF/PF without pain, no focal weakness. + tenderness left gluteal muscles, no obvious swelling or erythema, no masses palpated, no tenderness over old hip incision or trochanteric region Assessment: []Left knee pain- improving final cultures pending, NGTD Left gluteal pain, s/p remote LTH replacement Plan: []PT/OT WBAT LLE Heat Left buttock prn comfort
[2016-10-04] MEDS ORDERED: Morphine TAB Extended Release (*) 15 MG TAB.ER PO SCH (13:24)
[2016-10-04] MEDS ORDERED: Morphine TAB Extended Release (*) 15 MG TAB.ER PO ONE (13:24)
--- NOTE | 2016-10-04 13:35 | PN ---
Subjective Date of Service: 10/04/16 Interval History: C/PO pain in "tail bone" Hard for him to sit up. L knee and L hip much better today. Objective Active Medications: Acetaminophen (Tylenol Tab*) 650 mg PO Q6H PRN PRN Reason: FEVER/PAIN Albuterol (Ventolin 2.5 Mg/3 Ml Neb.[place]islinn*) 2.5 mg INH Q2H PRN PRN Reason: SOB/WHEEZING Amiodarone HCl (Cordarone Tab*) 200 mg PO BID [facility] Last Admin: 10/04/16 08:13 Dose: 200 mg Aspirin (Aspirin Low Dose Tab*) 81 mg PO BEDTIME [facility] Last Admin: 10/03/16 22:04 Dose: 81 mg Atorvastatin Calcium (Lipitor*) 80 mg PO QPM [facility] Last Admin: 10/03/16 17:29 Dose: 80 mg Cyclobenzaprine HCl (Flexeril Tab*) 10 mg PO QPM [facility] Last Admin: 10/03/16 17:28 Dose: 10 mg Diphenoxylate HCl/Atropine (Lomotil Tab*) 1 tab PO BID PRN PRN Reason: DIARRHEA Docusate Sodium (Colace Cap*) 200 mg PO BEDTIME [facility] Last Admin: 10/03/16 23:52 Dose: 200 mg Fenofibrate (Tricor(Nf)) 145 mg PO QAM [facility] PRN Reason: Protocol Last Admin: 10/04/16 08:09 Dose: 145 mg Finasteride (Proscar Tab*) 5 mg PO QPM [facility] Last Admin: 10/03/16 17:28 Dose: 5 mg Gabapentin (Neurontin Cap(*)) 400 mg PO TID [facility] Last Admin: 10/04/16 08:12 Dose: 400 mg Gabapentin (Neurontin Cap(*)) 100 mg PO TID [facility] Last Admin: 10/04/16 08:11 Dose: 100 mg Glipizide (Glucotrol Xl*) 5 mg PO BID [facility] Last Admin: 10/04/16 08:13 Dose: 5 mg Heparin Sodium (Porcine) (Heparin Vial(*)) 0 units IV .FOR BOLUSES PRN PRN Reason: HEPARIN DRIP BOLUSES Last Admin: 10/04/16 08:16 Dose: 4,500 units Heparin Sodium/Dextrose (Heparin Drip 25,000 Units(*)) 25,000 units in 500 mls @ 0 mls/hr IVPB .(INITIAL RATE) [facility]; Per Protocol PRN Reason: Protocol Last Admin: 10/04/16 05:20 Dose: 35 mls/hr Insulin Glargine (Lantus(*)) 42 units SUBCUT 1700 [facility] Last Admin: 10/03/16 17:30 Dose: 42 units Levothyroxine Sodium (Synthroid Tab*) 187.5 mcg PO 0600 [facility] Last Admin: 10/04/16 06:03 Dose: 187.5 mcg Lorazepam (Ativan Tab(*)) 1 mg PO TID PRN PRN Reason: ANXIETY Mometasone Furoate/Formoterol Fumar (Dulera 200/5 Mdi*) 2 puff INH BID [facility] Last Admin: 10/04/16 07:55 Dose: 2 puff Morphine Sulfate (Ms Contin(*)) 30 mg PO Q12H [facility] Morphine Sulfate (Ms Contin(*)) 15 mg PO ONCE ONE Stop: 10/04/16 13:25 Morphine Sulfate (Ms Contin(*)) 30 mg PO 0700,1900 [facility] Omeprazole (Prilosec Cap*) 20 mg PO BID [facility] Last Admin: 10/04/16 08:13 Dose: 20 mg Ondansetron HCl (Zofran Inj*) 4 mg IV Q6H PRN PRN Reason: NAUSEA Oxycodone HCl (Roxycodone Tab*) 10 mg PO Q6H PRN PRN Reason: PAIN Last Admin: 10/04/16 09:57 Dose: 10 mg Pentoxifylline (Trental Cr Tab*) 400 mg PO TID [facility] Last Admin: 10/04/16 08:13 Dose: 400 mg Senna (Senokot Tab*) 2 tab PO BEDTIME [facility] Last Admin: 10/03/16 23:52 Dose: 2 tab Silodosin (Rapaflo(Nf)) 8 mg PO 1800 [facility] Last Admin: 10/03/16 22:06 Dose: 8 mg Throat Lozenges (Chloraseptic [place]*) 1 morelia PO Q6H PRN PRN Reason: SORE THROAT Tiotropium [place] (Spiriva Cap.Inh*) 1 cap INH DAILY [facility] Last Admin: 10/04/16 07:55 Dose: 1 cap Tramadol HCl (Ultram*) 50 mg PO Q6H PRN PRN Reason: PAIN Last Admin: 10/01/16 21:52 Dose: 50 mg Vital Signs 10/03/16 10/03/16 10/03/16 14:15 14:16 14:19 Temperature Pulse Rate Respiratory 18 18 8 Rate Blood Pressure (mmHg) O2 Sat by Pulse Oximetry 10/03/16 10/03/16 10/03/16 15:19 16:15 17:28 Temperature 98.4 F Pulse Rate 66 Respiratory 20 16 18 Rate Blood Pressure 127/82 (mmHg) O2 Sat by Pulse 92 Oximetry 10/03/16 10/03/16 10/03/16 18:09 19:14 19:28 Temperature 98.6 F Pulse Rate 69 Respiratory 18 20 18 Rate Blood Pressure 137/71 (mmHg) O2 Sat by Pulse 93 Oximetry 10/03/16 10/03/16 10/03/16 20:00 20:09 22:03 Temperature Pulse Rate 65 Respiratory 16 18 16 Rate Blood Pressure (mmHg) O2 Sat by Pulse 92 Oximetry 10/03/16 10/03/16 10/03/16 22:04 23:25 23:30 Temperature 98.7 F Pulse Rate 64 Respiratory 18 18 16 Rate Blood Pressure 139/61 (mmHg) O2 Sat by Pulse 94 Oximetry 10/04/16 10/04/16 10/04/16 00:03 01:25 04:53 Temperature 97.2 F Pulse Rate 64 Respiratory 18 18 16 Rate Blood Pressure 130/57 (mmHg) O2 Sat by Pulse 90 Oximetry 10/04/16 10/04/16 10/04/16 06:03 07:58 08:00 Temperature Pulse Rate 66 Respiratory 18 18 24 Rate Blood Pressure (mmHg) O2 Sat by Pulse 92 Oximetry 10/04/16 10/04/16 10/04/16 08:11 08:12 08:15 Temperature Pulse Rate Respiratory 14 14 Rate Blood Pressure 130/54 (mmHg) O2 Sat by Pulse Oximetry 10/04/16 10/04/16 09:39 09:57 Temperature Pulse Rate 66 Respiratory 18 24 Rate Blood Pressure (mmHg) O2 Sat by Pulse 92 Oximetry Oxygen Devices in Use Now: None Appearance: Alert, partly up in bed. Unhappy. Some difficulty turning in bed. Eyes: No Scleral Icterus Respiratory: Symmetrical Chest Expansion and Respiratory Effort, Clear to Auscultation, Clear to Percussion Cardiovascular: NL Sounds; No Murmurs; No JVD, RRR, No Edema, - Extremities: No Edema, No Clubbing, Cyanosis, - - L knee even smaller today, barely warm. No erythema. Skin: No Rash or Ulcers, No Nodules or Sclerosis, - Neurological: Alert and Oriented x 3, NL Sensation Result Diagrams: 10/04/16 05:57 10/04/16 05:57 Additional Lab and Data: Lab Results 10/01/16 10/01/16 10/01/16 Range/Units 14:20 14:20 15:32 WBC 9.7 (3.5-10.8) 10^3/ul RBC 4.71 (4.0-5.4) 10^6/ul Hgb 13.0 L (14.0-18.0) g/dl Hct 41 L (42-52) % MCV 86 (80-94) fL MCH 28 (27-31) pg MCHC 32 (31-36) g/dl RDW 15 (10.5-15) % Plt Count 228 (150-450) 10^3/ul MPV 8 (7.4-10.4) um3 Neut % (Auto) 81.4 (38-83) % Lymph % (Auto) 8.1 L (25-47) % [place] % (Auto) 9.0 (1-9) % Eos % (Auto) 1.0 (0-6) % Baso % (Auto) 0.5 (0-2) % Absolute Neuts (auto) 7.9 H (1.5-7.7) 10^3/ul Absolute Lymphs (auto) 0.8 L (1.0-4.8) 10^3/ul Absolute Monos (auto) 0.9 H (0-0.8) 10^3/ul Absolute Eos (auto) 0.1 (0-0.6) 10^3/ul Absolute Basos (auto) 0.1 (0-0.2) 10^3/ul Absolute Nucleated RBC 0 10^3/ul Nucleated RBC % 0 INR (Anticoag Therapy) (0.89-1.11) Sodium 130 L (133-145) mmol/L Potassium TNP 4.2 Chloride 98 L (101-111) mmol/L Carbon Dioxide 23 (22-32) mmol/L Anion Gap 9 (2-11) mmol/L BUN 32 H (6-24) mg/dL Creatinine 1.80 H (0.67-1.17) mg/dL Est GFR ( Amer) 47.5 (>60) Est GFR (Non-Af Amer) 37.0 (>60) BUN/Creatinine Ratio 17.8 (8-20) Glucose 240 H (70-100) mg/dL POC Glucose (mg/dL) (74-106) mg/dL Calcium 9.9 (8.6-10.3) mg/dL Total Bilirubin 0.90 (0.2-1.0) mg/dL AST TNP 25 ALT 23 (7-52) U/L Alkaline Phosphatase 60 (34-104) U/L C-Reactive Protein 255.89 H (< 5.00) mg/L Total Protein 7.2 (6.4-8.9) g/dL Albumin 3.9 (3.2-5.2) g/dL Globulin 3.3 (2-4) g/dL Albumin/Globulin Ratio 1.2 (1-3) 10/02/16 10/02/16 10/02/16 Range/Units 06:11 06:11 08:02 WBC (3.5-10.8) 10^3/ul RBC (4.0-5.4) 10^6/ul Hgb (14.0-18.0) g/dl Hct (42-52) % MCV (80-94) fL MCH (27-31) pg MCHC (31-36) g/dl RDW (10.5-15) % Plt Count (150-450) 10^3/ul MPV (7.4-10.4) um3 Neut % (Auto) (38-83) % Lymph % (Auto) (25-47) % [place] % (Auto) (1-9) % Eos % (Auto) (0-6) % Baso % (Auto) (0-2) % Absolute Neuts (auto) (1.5-7.7) 10^3/ul Absolute Lymphs (auto) (1.0-4.8) 10^3/ul Absolute Monos (auto) (0-0.8) 10^3/ul Absolute Eos (auto) (0-0.6) 10^3/ul Absolute Basos (auto) (0-0.2) 10^3/ul Absolute Nucleated RBC 10^3/ul Nucleated RBC % INR (Anticoag Therapy) 1.06 (0.89-1.11) Sodium 133 (133-145) mmol/L Potassium 3.7 Chloride 103 (101-111) mmol/L Carbon Dioxide 23 (22-32) mmol/L Anion Gap 7 (2-11) mmol/L BUN 26 H (6-24) mg/dL Creatinine 1.54 H (0.67-1.17) mg/dL Est GFR ( Amer) 56.9 (>60) Est GFR (Non-Af Amer) 44.3 (>60) BUN/Creatinine Ratio 16.9 (8-20) Glucose 162 H (70-100) mg/dL POC Glucose (mg/dL) 160 H (74-106) mg/dL Calcium 8.9 (8.6-10.3) mg/dL Total Bilirubin (0.2-1.0) mg/dL AST ALT (7-52) U/L Alkaline Phosphatase (34-104) U/L C-Reactive Protein (< 5.00) mg/L Total Protein (6.4-8.9) g/dL Albumin (3.2-5.2) g/dL Globulin (2-4) g/dL Albumin/Globulin Ratio (1-3) Microbiology and Other Data: Microbiology 10/02/16 17:45 Gram Stain - Final Wound Wound Culture - Preliminary No Growth Day 1 10/02/16 10:47 Gram Stain - Final Body Fluid - Knee Left Body Fluid Culture - Preliminary No Growth Day 1 Anaerobic Culture - Preliminary No Growth Day 1 Skin and Soft Tissue MRSA/MSSA (PCR - Final Mrsa Negative S.aureus Negative 10/02/16 10:47 Acid Fast Bacilli Smear - Final Body Fluid - Knee Left Assess/Plan/Problems-Billing Assessment: - Patient Problems (1) Gastroenteritis Current Visit: Yes Status: Acute Code(s): K52.9 - NONINFECTIVE GASTROENTERITIS AND COLITIS, UNSPECIFIED SNOMED Code(s): 71405816 Comment: Resolved. (2) CKD (chronic kidney disease) Current Visit: No Status: Acute Code(s): N18.9 - CHRONIC KIDNEY DISEASE, UNSPECIFIED SNOMED Code(s): 340918494 Comment: Now at his baseline. (3) Atrial fibrillation Current Visit: No Status: Chronic Code(s): I48.91 - UNSPECIFIED ATRIAL FIBRILLATION SNOMED Code(s): 66348943 Comment: Reduce amiodarone tp 200 mg daily. Restart rivaroxaban. (4) Arthritis Current Visit: Yes Status: Acute Code(s): M19.90 - UNSPECIFIED OSTEOARTHRITIS, UNSPECIFIED SITE SNOMED Code(s): 7601644 Comment: Discussed with Dr. Cardenas. Both L hip and L knee aspirated, C&S neg at 2 days. (5) Diabetes mellitus Current Visit: No Status: Chronic Code(s): E11.9 - TYPE 2 DIABETES MELLITUS WITHOUT COMPLICATIONS SNOMED Code(s): 55028067 Comment: Increase Lantus to 42 U q 1700 hrs, continue glipizide XL 5 mg bid. Adequate glycemic control as of 10/04. (6) COPD (chronic obstructive pulmonary disease) Current Visit: No Status: Acute Code(s): J44.9 - CHRONIC OBSTRUCTIVE PULMONARY DISEASE, UNSPECIFIED SNOMED Code(s): 33233284 Comment: Continue albuterol, tiotropium. (7) Barretts esophagus Current Visit: No Status: Chronic Code(s): K22.70 - ESPINOZA'S ESOPHAGUS WITHOUT DYSPLASIA SNOMED Code(s): 599262565 Comment: Continue omeprazole. (8) Sacral pain Current Visit: Yes Status: Acute Code(s): M53.3 - SACROCOCCYGEAL DISORDERS, NOT ELSEWHERE CLASSIFIED SNOMED Code(s): 06745180 Comment: Total body bone scan ordered. Status and Disposition: Discharge now. Fup [facility] De [place]
[2016-10-04] MEDS: Atorvastatin* 80 MG TAB PO SCH (16:33)
[2016-10-04] MEDS: Cyclobenzaprine TAB* 10 MG PO SCH (16:33)
[2016-10-04] MEDS: SILODOSIN 8 MG PO SCH (16:33)
[2016-10-04] MEDS: Insulin GLARGINE(*) 1 UNITS UNIT SUBCUT SCH (16:34)
[2016-10-04] MEDS: Rivaroxaban TAB(*) 20 MG TAB PO SCH (16:34)
[2016-10-04] MEDS: Finasteride TAB* 5 MG PO SCH (16:34)
[2016-10-04] MEDS ORDERED: Senna/Docusate (NF) TAB PO SCH (21:00)
[2016-10-04] MEDS: Senna TAB PO SCH (21:21)
[2016-10-04] MEDS: Docusate CAP* 100 MG PO SCH (21:22)
[2016-10-04] MEDS: Morphine TAB Extended Release (*) 30 MG TAB.ER PO SCH (21:23)
[2016-10-04] MEDS: Aspirin Low Dose CHEW TAB* 81 MG PO SCH (21:25)
[2016-10-05] MEDS: Levothyroxine TAB* 125 MCG TAB PO SCH (05:41)
[2016-10-05] MEDS: oxyCODONE TAB* 5 MG TAB PO PRN ×2 (05:42→14:06)
[2016-10-05] MEDS: FENOFIBRATE 145 MG PO SCH (08:33)
[2016-10-05] MEDS: Gabapentin CAP(*) 100 MG PO SCH ×3 (08:33→22:05)
[2016-10-05] MEDS: Amiodarone TAB* 200 MG PO SCH (08:33)
[2016-10-05] MEDS: Gabapentin CAP(*) 400 MG PO SCH ×3 (08:34→22:06)
[2016-10-05] MEDS: glipiZIDE TAB.XL* 5 MG PO SCH ×2 (08:34→22:04)
[2016-10-05] MEDS: Morphine TAB Extended Release (*) 30 MG TAB.ER PO SCH ×2 (08:35→22:03)
[2016-10-05] MEDS: Pentoxifylline CR TAB* 400 MG PO SCH ×3 (08:35→22:05)
[2016-10-05] MEDS: Omeprazole CAP* 20 MG PO SCH ×2 (08:35→22:05)
[2016-10-05] MEDS: Mometasone/Formoter 200/5 MDI INH SCH ×2 (08:55→19:29)
[2016-10-05] MEDS: Tiotropium CAP.INH* CAP.INH/18 MCG INH SCH (08:55)
[2016-10-05] MEDS ORDERED: Magnesium CITRATE* 300 ML BTL PO ONE (11:00)
--- NOTE | 2016-10-05 11:17 | PN ---
Progress Note - Progress Note Date of Service: 10/05/16 SOAP: Subjective: [Pt con'ts to c/o L buttock pain. Points to area of sciatic notch. No radiating pain. Reports discomfort as positional - hurts most when pressure is placed on L buttock. L knee pain is minimal.] Objective: [A an O x 3. NAD TTP L gluteal muscles, sciatic notch. No visible swelling, erythema, ecchymosis. No TTP at healed surgical scar. L knee with diffuse swelling. Minimal warmth, no erythema. ROM 0-90 degrees actively. Calf soft, NT. NV function intact] Vital Signs: Temp Pulse Resp BP Pulse Ox 97.2 F 70 16 127/57 90 10/05/16 07:44 10/05/16 07:44 10/05/16 08:35 10/05/16 07:44 10/05/16 07:44 Laboratory Results - last 24 hr 10/04/16 10/04/16 10/05/16 11:48 16:23 07:33 POC Glucose (mg/dL) 160 H 134 H 179 H Assessment: [Left knee pain - improving. Final cultures pending. NGTD L buttock pain - unclear etiology] Plan: [Con't to monitor L knee - await final cultures PT/OT WBAT LLE Bone scan total body ordered by medicine.]
--- NOTE | 2016-10-05 13:54 | RAD ---
CPT II Codes: 3570F INDICATION: Low back and left-sided sacral pain x4 days without known trauma. Relevant history includes esophageal cancer and remote left hip arthroplasty. COMPARISON: CT of the pelvis dated October 02, 2016 at did not demonstrate any acute abnormality. TECHNIQUE: 20 mCi of Tc-99m HDP were injected IV. The whole body was scanned in anterior and posterior projections approximately 2 hours after the injection. FINDINGS: Evaluation of the pelvis and sacroiliac joints is limited by contrast uptake in the urinary bladder. The patient was asked to urinate but could not empty his bladder completely. There is asymmetric increased uptake at the medial left tibial plateau. There is also increased uptake overlying the left ankle joint asymmetric to the contralateral side. Uptake elsewhere is seen at the shoulders and acromioclavicular joints consistent with degenerative change. There is no asymmetric or excessive uptake at either sacroiliac joint. There is no suspicious or elevated uptake surrounding the hip prosthesis. The kidneys are normal in size and position and without evidence for obstructive uropathy. IMPRESSION: 1. There is no elevated or asymmetric uptake at either sacroiliac joint, the pelvis or surrounding the patient's left hip prosthesis. 2. Asymmetric elevated uptake is noted at the left medial tibial plateau and left ankle. Please correlate to physical examination at these joints.
--- NOTE | 2016-10-05 14:45 | DCNOTE ---
Subjective Date of Service: 10/05/16 Interval History: C/O sacral pain, started about 2 days after admission. No radiation of pain, no leg weakness or numbess. Constipated. Objective Active Medications: Acetaminophen (Tylenol Tab*) 650 mg PO Q6H PRN PRN Reason: FEVER/PAIN Albuterol (Ventolin 2.5 Mg/3 Ml Neb.[place]*) 2.5 mg INH Q2H PRN PRN Reason: SOB/WHEEZING Amiodarone HCl (Cordarone Tab*) 200 mg PO DAILY [facility] Last Admin: 10/05/16 08:33 Dose: 200 mg Aspirin (Aspirin Low Dose Tab*) 81 mg PO BEDTIME [facility] Last Admin: 10/04/16 21:25 Dose: 81 mg Atorvastatin Calcium (Lipitor*) 80 mg PO QPM [facility] Last Admin: 10/04/16 16:33 Dose: 80 mg Cyclobenzaprine HCl (Flexeril Tab*) 10 mg PO QPM [facility] Last Admin: 10/04/16 16:33 Dose: 10 mg Diphenoxylate HCl/Atropine (Lomotil Tab*) 1 tab PO BID PRN PRN Reason: DIARRHEA Docusate Sodium (Colace Cap*) 200 mg PO BEDTIME [facility] Last Admin: 10/04/16 21:22 Dose: 200 mg Fenofibrate (Tricor(Nf)) 145 mg PO QAM [facility] PRN Reason: Protocol Last Admin: 10/05/16 08:33 Dose: 145 mg Finasteride (Proscar Tab*) 5 mg PO QPM [facility] Last Admin: 10/04/16 16:34 Dose: 5 mg Gabapentin (Neurontin Cap(*)) 400 mg PO TID [facility] Last Admin: 10/05/16 14:07 Dose: 400 mg Gabapentin (Neurontin Cap(*)) 100 mg PO TID [facility] Last Admin: 10/05/16 14:07 Dose: 100 mg Glipizide (Glucotrol Xl*) 5 mg PO BID [facility] Last Admin: 10/05/16 08:34 Dose: 5 mg Insulin Glargine (Lantus(*)) 42 units SUBCUT 1700 [facility] Last Admin: 10/04/16 16:34 Dose: 42 units Levothyroxine Sodium (Synthroid Tab*) 187.5 mcg PO 0600 [facility] Last Admin: 10/05/16 05:41 Dose: 187.5 mcg Lorazepam (Ativan Tab(*)) 1 mg PO TID PRN PRN Reason: ANXIETY Mometasone Furoate/Formoterol Fumar (Dulera 200/5 Mdi*) 2 puff INH BID [facility] Last Admin: 10/05/16 08:55 Dose: Not Given Morphine Sulfate (Ms Contin(*)) 30 mg PO Q12H [facility] Last Admin: 10/05/16 08:35 Dose: 30 mg Omeprazole (Prilosec Cap*) 20 mg PO BID [facility] Last Admin: 10/05/16 08:35 Dose: 20 mg Ondansetron HCl (Zofran Inj*) 4 mg IV Q6H PRN PRN Reason: NAUSEA Oxycodone HCl (Roxycodone Tab*) 10 mg PO Q6H PRN PRN Reason: PAIN Last Admin: 10/05/16 14:06 Dose: 10 mg Pentoxifylline (Trental Cr Tab*) 400 mg PO TID [facility] Last Admin: 10/05/16 14:07 Dose: 400 mg Rivaroxaban (Xarelto (*)) 20 mg PO QPM [facility] Last Admin: 10/04/16 16:34 Dose: 20 mg Senna (Senokot Tab*) 2 tab PO BEDTIME [facility] Last Admin: 10/04/16 21:21 Dose: 2 tab Silodosin (Rapaflo(Nf)) 8 mg PO 1800 [facility] Last Admin: 10/04/16 16:33 Dose: 8 mg Throat Lozenges (Chloraseptic Christine*) 1 christine PO Q6H PRN PRN Reason: SORE THROAT Tiotropium [place] (Spiriva Cap.Inh*) 1 cap INH DAILY [facility] Last Admin: 10/05/16 08:55 Dose: Not Given Tramadol HCl (Ultram*) 50 mg PO Q6H PRN PRN Reason: PAIN Last Admin: 10/01/16 21:52 Dose: 50 mg Vital Signs 10/04/16 10/04/16 10/04/16 15:29 16:33 16:34 Temperature 97.8 F Pulse Rate 64 Respiratory 16 16 18 Rate Blood Pressure 131/55 (mmHg) O2 Sat by Pulse 93 Oximetry 10/04/16 10/04/16 10/04/16 18:33 19:19 21:23 Temperature 98.0 F Pulse Rate 69 Respiratory 18 16 18 Rate Blood Pressure 128/67 (mmHg) O2 Sat by Pulse 92 Oximetry 10/04/16 10/04/16 10/04/16 21:25 21:26 21:35 Temperature Pulse Rate Respiratory 18 18 18 Rate Blood Pressure (mmHg) O2 Sat by Pulse Oximetry 10/04/16 10/04/16 10/04/16 21:36 23:23 23:25 Temperature Pulse Rate Respiratory 18 16 16 Rate Blood Pressure (mmHg) O2 Sat by Pulse Oximetry 10/04/16 10/05/16 10/05/16 23:26 03:20 05:42 Temperature 98.3 F Pulse Rate 63 69 Respiratory 16 20 18 Rate Blood Pressure 122/45 121/51 (mmHg) O2 Sat by Pulse 93 92 Oximetry 10/05/16 10/05/16 10/05/16 07:44 08:00 08:33 Temperature 97.2 F Pulse Rate 70 Respiratory 16 16 16 Rate Blood Pressure 127/57 (mmHg) O2 Sat by Pulse 90 Oximetry 10/05/16 10/05/16 10/05/16 08:34 08:35 14:06 Temperature Pulse Rate Respiratory 16 16 14 Rate Blood Pressure (mmHg) O2 Sat by Pulse Oximetry 10/05/16 14:07 Temperature Pulse Rate Respiratory 14 Rate Blood Pressure (mmHg) O2 Sat by Pulse Oximetry Oxygen Devices in Use Now: None Appearance: Alert, partly up in bed. In fair spirits. Looks comfortable at rest. Extremities: No Edema, No Clubbing, Cyanosis, - Skin: No Rash or Ulcers, No Nodules or Sclerosis, - Neurological: Alert and Oriented x 3, NL Sensation, - - Foot flexion and dorsiflexion strong BL, can raise each leg off the bed. Result Diagrams: 10/04/16 05:57 10/04/16 05:57 Additional Lab and Data: Lab Results 10/01/16 10/01/16 10/01/16 Range/Units 14:20 14:20 15:32 WBC 9.7 (3.5-10.8) 10^3/ul RBC 4.71 (4.0-5.4) 10^6/ul Hgb 13.0 L (14.0-18.0) g/dl Hct 41 L (42-52) % MCV 86 (80-94) fL MCH 28 (27-31) pg MCHC 32 (31-36) g/dl RDW 15 (10.5-15) % Plt Count 228 (150-450) 10^3/ul MPV 8 (7.4-10.4) um3 Neut % (Auto) 81.4 (38-83) % Lymph % (Auto) 8.1 L (25-47) % [place] % (Auto) 9.0 (1-9) % Eos % (Auto) 1.0 (0-6) % Baso % (Auto) 0.5 (0-2) % Absolute Neuts (auto) 7.9 H (1.5-7.7) 10^3/ul Absolute Lymphs (auto) 0.8 L (1.0-4.8) 10^3/ul Absolute Monos (auto) 0.9 H (0-0.8) 10^3/ul Absolute Eos (auto) 0.1 (0-0.6) 10^3/ul Absolute Basos (auto) 0.1 (0-0.2) 10^3/ul Absolute Nucleated RBC 0 10^3/ul Nucleated RBC % 0 INR (Anticoag Therapy) (0.89-1.11) Sodium 130 L (133-145) mmol/L Potassium TNP 4.2 Chloride 98 L (101-111) mmol/L Carbon Dioxide 23 (22-32) mmol/L Anion Gap 9 (2-11) mmol/L BUN 32 H (6-24) mg/dL Creatinine 1.80 H (0.67-1.17) mg/dL Est GFR ( Amer) 47.5 (>60) Est GFR (Non-Af Amer) 37.0 (>60) BUN/Creatinine Ratio 17.8 (8-20) Glucose 240 H (70-100) mg/dL POC Glucose (mg/dL) (74-106) mg/dL Calcium 9.9 (8.6-10.3) mg/dL Total Bilirubin 0.90 (0.2-1.0) mg/dL AST TNP 25 ALT 23 (7-52) U/L Alkaline Phosphatase 60 (34-104) U/L C-Reactive Protein 255.89 H (< 5.00) mg/L Total Protein 7.2 (6.4-8.9) g/dL Albumin 3.9 (3.2-5.2) g/dL Globulin 3.3 (2-4) g/dL Albumin/Globulin Ratio 1.2 (1-3) 10/02/16 10/02/16 10/02/16 Range/Units 06:11 06:11 08:02 WBC (3.5-10.8) 10^3/ul RBC (4.0-5.4) 10^6/ul Hgb (14.0-18.0) g/dl Hct (42-52) % MCV (80-94) fL MCH (27-31) pg MCHC (31-36) g/dl RDW (10.5-15) % Plt Count (150-450) 10^3/ul MPV (7.4-10.4) um3 Neut % (Auto) (38-83) % Lymph % (Auto) (25-47) % [place] % (Auto) (1-9) % Eos % (Auto) (0-6) % Baso % (Auto) (0-2) % Absolute Neuts (auto) (1.5-7.7) 10^3/ul Absolute Lymphs (auto) (1.0-4.8) 10^3/ul Absolute Monos (auto) (0-0.8) 10^3/ul Absolute Eos (auto) (0-0.6) 10^3/ul Absolute Basos (auto) (0-0.2) 10^3/ul Absolute Nucleated RBC 10^3/ul Nucleated RBC % INR (Anticoag Therapy) 1.06 (0.89-1.11) Sodium 133 (133-145) mmol/L Potassium 3.7 Chloride 103 (101-111) mmol/L Carbon Dioxide 23 (22-32) mmol/L Anion Gap 7 (2-11) mmol/L BUN 26 H (6-24) mg/dL Creatinine 1.54 H (0.67-1.17) mg/dL Est GFR ( Amer) 56.9 (>60) Est GFR (Non-Af Amer) 44.3 (>60) BUN/Creatinine Ratio 16.9 (8-20) Glucose 162 H (70-100) mg/dL POC Glucose (mg/dL) 160 H (74-106) mg/dL Calcium 8.9 (8.6-10.3) mg/dL Total Bilirubin (0.2-1.0) mg/dL AST ALT (7-52) U/L Alkaline Phosphatase (34-104) U/L C-Reactive Protein (< 5.00) mg/L Total Protein (6.4-8.9) g/dL Albumin (3.2-5.2) g/dL Globulin (2-4) g/dL Albumin/Globulin Ratio (1-3) Microbiology and Other Data: Microbiology 10/02/16 17:45 Gram Stain - Final Wound Wound Culture - Preliminary No Growth Day 1 10/02/16 10:47 Gram Stain - Final Body Fluid - Knee Left Body Fluid Culture - Preliminary No Growth Day 1 Anaerobic Culture - Preliminary No Growth Day 1 Skin and Soft Tissue MRSA/MSSA (PCR - Final Mrsa Negative S.aureus Negative 10/02/16 10:47 Acid Fast Bacilli Smear - Final Body Fluid - Knee Left Assess/Plan/Problems-Billing Assessment: - Patient Problems (1) Gastroenteritis Current Visit: Yes Status: Acute Code(s): K52.9 - NONINFECTIVE GASTROENTERITIS AND COLITIS, UNSPECIFIED SNOMED Code(s): 53519953 Comment: Resolved. (2) CKD (chronic kidney disease) Current Visit: No Status: Acute Code(s): N18.9 - CHRONIC KIDNEY DISEASE, UNSPECIFIED SNOMED Code(s): 683135822 Comment: Now at his baseline. (3) Atrial fibrillation Current Visit: No Status: Chronic Code(s): I48.91 - UNSPECIFIED ATRIAL FIBRILLATION SNOMED Code(s): 75221324 Comment: Reduce amiodarone tp 200 mg daily. Restart rivaroxaban. (4) Arthritis Current Visit: Yes Status: Acute Code(s): M19.90 - UNSPECIFIED OSTEOARTHRITIS, UNSPECIFIED SITE SNOMED Code(s): 9085654 Comment: Discussed with Dr. Cardenas. Both L hip and L knee aspirated, C&S neg at 2 days. (5) Diabetes mellitus Current Visit: No Status: Chronic Code(s): E11.9 - TYPE 2 DIABETES MELLITUS WITHOUT COMPLICATIONS SNOMED Code(s): 98618903 Comment: Increase Lantus to 42 U q 1700 hrs, continue glipizide XL 5 mg bid. Adequate glycemic control as of 10/04. (6) COPD (chronic obstructive pulmonary disease) Current Visit: No Status: Acute Code(s): J44.9 - CHRONIC OBSTRUCTIVE PULMONARY DISEASE, UNSPECIFIED SNOMED Code(s): 02293345 Comment: Continue albuterol, tiotropium. (7) Barretts esophagus Current Visit: No Status: Chronic Code(s): K22.70 - ESPINOZA'S ESOPHAGUS WITHOUT DYSPLASIA SNOMED Code(s): 924992388 Comment: Continue omeprazole. (8) Sacral pain Current Visit: Yes Status: Acute Code(s): M53.3 - SACROCOCCYGEAL DISORDERS, NOT ELSEWHERE CLASSIFIED SNOMED Code(s): 79577640 Comment: Total body bone scan did not show any suspicious focus. Increased uptake L tibial plateau and L ankle does not correlate with any signs or symptoms. Likely pain due to degerative disc disease and or facet arthropathy. (9) Constipation Current Visit: Yes Status: Acute Code(s): K59.00 - CONSTIPATION, UNSPECIFIED SNOMED Code(s): 66286221 Comment: 300 ml mag citrate ordered 10/05. to start PEG 17 gm bid also. Will need some laxative every day while on opiates. Status and Disposition: Discharge to [facility] 10/06 AM.
--- NOTE | 2016-10-05 15:10 | PN ---
Progress Note - Progress Note Date of Service: 10/05/16 Note: Time spent on discharge 50 minutes.
--- NOTE | 2016-10-05 16:48 | DS ---
CC: Dr. Cha * DATE OF ADMISSION: 10/02/2016. DATE OF DISCHARGE: 10/05/2016. HISTORY OF PRESENT ILLNESS: This 76-year-old man presented with diarrhea. He had been treated for C. diff colitis about six weeks before admission. This time the diarrhea started two days before admission; however, his test for C. difficile was negative. The diarrhea resolved without any special treatment. He actually became constipated before the end of his hospital stay. He began having pain in his left knee at home because he was running back and forth so much to the bathroom with his diarrhea. Dr. Cardenas saw the patient. She aspirated his left knee and arranged for Radiology, Dr. Pedraza, to aspirate his left hip. The cultures were negative. The pain in his hip and knee both subsided. He complained then of pain in his sacral area. There was no visible skin breakdown or redness. I ordered a bone scan which showed a little bit of extra uptake in the left tibial plateau and left ankle, which did not correlate with any signs or symptoms. There was no radiation of his sacral pain. Strength in both lower extremities seemed well-preserved. I suspect his pain is due to either degenerative joint disease or facet arthropathy. The patient was constipated and on October 05 received magnesium citrate 300 ml. I am going to start him on Polyethylene Glycol b.i.d. as well as he is taking more opiates with his increased pain. FINAL DIAGNOSES: 1. Gastroenteritis resolved. 2. Low back pain. 3. Chronic kidney disease, stable. 4. Atrial fibrillation. 5. Arthritis. 6. Diabetes. 7. COPD. 8. Batista's esophagus. 9. Sacral pain. 10. Constipation. DISCHARGE MEDICATIONS: 1. Chloraseptic lozenge every 6 hours prn. 2. Morphine extended release 30 mg every 12 hours daily. 3. Polyethylene Glycol 17 gm b.i.d. 4. L-Methylfolate with vitamin B6 25 mg at bedtime. 5. Finasteride 5 mg daily. 6. Pantoprazole 40 mg b.i.d. 7. Oxycodone 10 mg every 6 hours prn. 8. Amiodarone 200 mg daily. 9. Nitroglycerin 0.4 mg sublingual prn. 10. Glipizide XL 5 mg b.i.d. 11. Rosuvastatin 40 mg at bedtime. 12. Folic acid 1 mg daily. 13. Albuterol Ipratropium inhaler one puff q.i.d. prn. 14. Levothyroxine 0.1875 mg daily. 15. Glargine insulin 38 units daily at 5:00 p.m. 16. [place]-3 Ethyl Esters one cap b.i.d. 17. Pentoxifylline CR 400 mg t.i.d. 18. Cyclosporine 0.05% b.i.d. both eyes. 19. Nystatin topical powder t.i.d. prn. 20. Cyclobenzaprine 10 mg at bedtime. 21. Mometasone cream apply topically prn daily. 22. Ferrous Sulfate 65 mg at bedtime. 23. Refresh Optive one drop both eyes prn. 24. Aspirin 81 mg daily. 25. Lorazepam 1 mg t.i.d. prn. 26. Fenofibrate one tablet daily. 27. Silodosin 8 mg at bedtime. 28. Furosemide 20 mg b.i.d. 29. Gabapentin 500 mg t.i.d. 30. Rivaroxaban 20 mg daily. 31. Testosterone 200 mg IM every 10 days. 32. Ascorbic acid one tablet at bedtime. 33. Afrin nasal spray one spray both nares every 12 hours. 34. Ammonium Lactate apply topically every 12 hours to feet. 35. Biotene mouth rinse 15 ml at bedtime. 36. OCuSOFT Lid Scrub Plus one pad both eyes b.i.d.. [id number]/[facility] #: [id number] MTDD
[2016-10-05] MEDS: Rivaroxaban TAB(*) 20 MG TAB PO SCH (17:51)
[2016-10-05] MEDS: Cyclobenzaprine TAB* 10 MG PO SCH (17:51)
[2016-10-05] MEDS: Atorvastatin* 80 MG TAB PO SCH (17:51)
[2016-10-05] MEDS: Insulin GLARGINE(*) 1 UNITS UNIT SUBCUT SCH (17:52)
[2016-10-05] MEDS: SILODOSIN 8 MG PO SCH (17:52)
[2016-10-05] MEDS: Finasteride TAB* 5 MG PO SCH (17:52)
[2016-10-05] MEDS: Polyethylene Glycol 3350* 17 GM PACKET PO SCH (22:03)
[2016-10-05] MEDS: Docusate CAP* 100 MG PO SCH (22:03)
[2016-10-05] MEDS: Aspirin Low Dose CHEW TAB* 81 MG PO SCH (22:07)
[2016-10-05] MEDS: Senna TAB PO SCH (22:07)
[2016-10-06] MEDS: Levothyroxine TAB* 125 MCG TAB PO SCH (05:48)
[2016-10-06 07:42] VITALS: BP 111/55
[2016-10-06] MEDS: Pentoxifylline CR TAB* 400 MG PO SCH (08:08)
[2016-10-06] MEDS: Omeprazole CAP* 20 MG PO SCH (08:08)
[2016-10-06] MEDS: Morphine TAB Extended Release (*) 30 MG TAB.ER PO SCH (08:08)
[2016-10-06] MEDS: Gabapentin CAP(*) 100 MG PO SCH (08:09)
[2016-10-06] MEDS: Tiotropium CAP.INH* CAP.INH/18 MCG INH SCH (08:09)
[2016-10-06] MEDS: Amiodarone TAB* 200 MG PO SCH (08:09)
[2016-10-06] MEDS: Mometasone/Formoter 200/5 MDI INH SCH (08:09)
[2016-10-06] MEDS: Gabapentin CAP(*) 400 MG PO SCH (08:09)
[2016-10-06] MEDS: glipiZIDE TAB.XL* 5 MG PO SCH (08:10)
[2016-10-06] MEDS: Polyethylene Glycol 3350* 17 GM PACKET PO SCH (08:10)
[2016-10-06] MEDS: FENOFIBRATE 145 MG PO SCH (08:10)
== END 2016-10-06 11:20 | DRG 392 ==
LOC: ED 13:04 → MED 21:58 → OBSVTOIN 10-02 10:18
PROVIDERS: ADMIT Hospitalist; ATTEND Internal Medicine
PROC: 0S9B3ZX Drainage of Left Hip Joint, Percutaneous Approach, Diagnostic (ICD-10-PCS; principal; 2016-10-02)
PROC: 0S9D3ZX Drainage of Left Knee Joint, Percutaneous Approach, Diagnostic (ICD-10-PCS; 2016-10-02)
DX: K52.9 Noninfective gastroenteritis and colitis, unspecified (principal); N17.9 Acute kidney failure, unspecified; E11.22 Type 2 diabetes mellitus with diabetic chronic kidney disease; I48.91 Unspecified atrial fibrillation; J44.9 Chronic obstructive pulmonary disease, unspecified; E86.0 Dehydration; K22.70 Barrett's esophagus without dysplasia; E03.9 Hypothyroidism, unspecified; E66.9 Obesity, unspecified; N18.9 Chronic kidney disease, unspecified; M54.40 Lumbago with sciatica, unspecified side; K59.00 Constipation, unspecified; I25.10 Atherosclerotic heart disease of native coronary artery without angina pectoris; K58.9 Irritable bowel syndrome, unspecified; M06.9 Rheumatoid arthritis, unspecified; K21.9 Gastro-esophageal reflux disease without esophagitis; N40.0 Benign prostatic hyperplasia without lower urinary tract symptoms; M17.12 Unilateral primary osteoarthritis, left knee; F41.9 Anxiety disorder, unspecified; Z85.01 Personal history of malignant neoplasm of esophagus; Z95.5 Presence of coronary angioplasty implant and graft; Z88.8 Allergy status to other drugs, medicaments and biological substances; Z91.018 Allergy to other foods; Z87.891 Personal history of nicotine dependence; Z83.3 Family history of diabetes mellitus; Z82.49 Family history of ischemic heart disease and other diseases of the circulatory system; Z80.0 Family history of malignant neoplasm of digestive organs; Z68.31 Body mass index [BMI] 31.0-31.9, adult; Z96.642 Presence of left artificial hip joint; Z79.01 Long term (current) use of anticoagulants; Z79.84 Long term (current) use of oral hypoglycemic drugs; Z79.1 Long term (current) use of non-steroidal anti-inflammatories (NSAID); Z79.82 Long term (current) use of aspirin; Z79.4 Long term (current) use of insulin; Z79.891 Long term (current) use of opiate analgesic; Z79.899 Other long term (current) drug therapy
CPT/HCPCS: 20610; 36415; 77002; 78306; 80048; 80053; 82565; 84520; 85025; 85610; 85652; 85730; 86140; 87070; 87073; 87116; 87205; 87206; 87493; 87640; 87641; 89051; 94640; 94760; 99284; A9270-GY; A9503; J1644

== ENCOUNTER 2016-11-29 10:53 | Inpatient (IN) | payer MEDICARE ==
[2016-11-29] MEDS ORDERED: NS 0.9% 1000 ML* 1,000 ML IV ONE ×2 (11:17→12:55)
[2016-11-29 11:47] LABS: Hematocrit 41 % (42-52); Hemoglobin 13.3 g/dl (14.0-18.0); Mean Corpuscular HGB Conc 32 g/dl (31-36); Mean Corpuscular Hemoglobin 29 pg (27-31); Mean Corpuscular Volume 89 fL (80-94); Mean Platelet Volume 7 um3 (7.4-10.4); Red Blood Count 4.64 10^6/ul (4.0-5.4); Red Cell Distribution Width 17 % (10.5-15); White Blood Count 11.5 10^3/ul (3.5-10.8)
[2016-11-29 12:02] LABS: ALT 10 U/L (7-52); AST 10 U/L (13-39); Albumin 4.3 g/dL (3.2-5.2); Alkaline Phosphatase 77 U/L (34-104); Anion Gap 6 mmol/L (2-11); BUN/Creatinine Ratio 19.2 (8-20); Blood Urea Nitrogen 24 mg/dL (6-24); CO2 Carbon Dioxide 27 mmol/L (22-32); Calcium 9.7 mg/dL (8.6-10.3); Chloride 98 mmol/L (101-111); EGFR African American 72.4 (>60); EGFR Non-African American 56.3 (>60); Globulin 2.6 g/dL (2-4); Glucose 179 mg/dL (70-100); Lipase < 10 U/L (11.0-82.0); Magnesium 1.8 mg/dL (1.9-2.7); Potassium 3.5 mmol/L (3.5-5.0); Sodium 131 mmol/L (133-145); Total Protein 6.9 g/dL (6.4-8.9)
[2016-11-29] MEDS ORDERED: Iodixanol* (CONTRAST) 320 MG/ML 100 ML SDV IV ONE (13:38)
--- NOTE | 2016-11-29 16:12 | RAD ---
INDICATION: Abdominal pain and distention. COMPARISON: Comparison is made with a prior CT angiogram from February 06, [address] of the abdomen and pelvis from November 02, 2016. TECHNIQUE: A CT scan of the abdomen and pelvis was performed with intravenous and oral contrast following intravenous injection of 138 ml of Visipaque 320 nonionic contrast. Contiguous axial sections were obtained from the lung bases through the symphysis pubis. Images were reconstructed in the coronal and sagittal planes. FINDINGS: There are mild dependent bilateral lower lobe infiltrates suggestive of atelectasis. No pleural effusion is present. The liver and spleen are normal in size. There are several hypodense hepatic lesions. The largest measures 4.2 x 3.0 cm in size which are unchanged from prior exams and most consistent with cysts. The patient is status post cholecystectomy. There is mild prominence of the extrahepatic ducts which are unchanged most consistent with postcholecystectomy changes. The pancreas appears to be within normal limits. The adrenal glands appear to be within normal limits. There is bilateral renal cortical thinning and scarring which is more prominent in the left kidney which is unchanged from the prior study. There is a 2 cm cyst in the lower pole of the right kidney. No hydronephrosis is seen. There is a 2.5 cm diverticulum arising from the left lateral aspect of the urinary bladder. No bladder wall thickening is seen. The prostate gland is mildly enlarged. The aorta is normal in caliber with moderate calcific plaque present. No significant enlarged retroperitoneal lymph nodes are seen. The stomach, small and large bowel appear nondistended. The patient is status post appendectomy by history. There are scattered diverticuli within the colon which are [id number] in degree. There is no evidence for diverticulitis or colitis. No free intraperitoneal air or fluid is seen. There is a severe compression fracture of the L1 vertebral body, a mild compression fracture of the inferior endplate of the L2 vertebral body and moderate compression fractures of the L3 and L4 vertebral bodies which are unchanged from the prior study. The patient is status post total left hip replacement surgery. IMPRESSION: 1. NO EVIDENCE FOR ACUTE FINDING OR CAUSE FOR THE PATIENT'S ABDOMINAL PAIN IS SEEN. 2. BILATERAL RENAL CORTICAL SCARRING, UNCHANGED. 3. STATUS POST CHOLECYSTECTOMY. 4. MULTIPLE HEPATIC CYSTS, UNCHANGED. 5. URINARY BLADDER DIVERTICULUM, UNCHANGED. 6. COMPRESSION FRACTURES OF THE L1-L4 LUMBAR VERTEBRA, UNCHANGED.
--- NOTE | 2016-11-29 16:26 | ADMNOTE ---
Subjective Date of Service: 11/29/16 Interval History: ADMISSION HISTORY AND PHYSICAL EXAM: Allergies Allergy/AdvReac Type Severity Reaction Status Date / Time Cephalexin [From Keflex] AdvReac Mild GI Upset Verified 11/08/16 10:02 BANANAS Allergy Mild See Comment Uncoded 11/08/16 10:02 WALNUTS Allergy Mild See Comment Uncoded 11/08/16 10:02 Home Medications Medication Instructions Recorded Confirmed Type Aspirin Low Dose CHEW TAB* 81 mg PO BEDTIME 05/12/16 11/29/16 History [Aspirin Low Dose TAB*] Ferrous Sulfate TAB* 325 mg PO BEDTIME 05/12/16 11/29/16 History LORazepam TAB(*) [Ativan 1 MG TAB 1 mg PO TID PRN #0 05/17/16 11/29/16 Rx (*)] Amiodarone TAB* [Cordarone Tab*] 200 mg PO DAILY tab 10/05/16 11/29/16 Rx Morphine TAB Extended Rel(*) [Ms 30 mg PO Q12H tab.er MDD 2 10/05/16 11/29/16 Rx Contin(*)] Albuterol/Ipratropium RESP(NF) 1 puff INH QID PRN 11/29/16 11/29/16 History [Combivent Respimat(NF)] Ascorbic Acid TAB* [Vitamin C 500 mg PO BEDTIME 11/29/16 11/29/16 History TAB*] Atorvastatin* [Lipitor*] 20 mg PO BEDTIME 11/29/16 11/29/16 History Carboxymethylcellulose-Glyceri 1 lamar BOTH EYES DAILY PRN 11/29/16 11/29/16 History [Optive] Control Gel Formula Dressing 1 mis TOPICAL FR 11/29/16 11/29/16 History [Duoderm Cgf] Cyclosporine 0.05% OPHTH (NF) 1 drop BOTH EYES Q12HR PRN 11/29/16 11/29/16 History [Restasis 0.05% OPHTH] Eyelid Cleansers [Ocusoft Baby 1 pad TOPICAL Q12HR PRN 11/29/16 11/29/16 History Eyelid & Eye] Furosemide TAB* [Lasix TAB*] 20 mg PO DAILY 11/29/16 11/29/16 History Gabapentin CAP(*) [Neurontin 300 500 mg PO TID 11/29/16 11/29/16 History CAP(*)] Insulin GLARGINE(*) [Lantus(*)] 34 units SUBCUT BEDTIME 11/29/16 11/29/16 History Lactic Acid (Ammonium Lactate) 12 % TOPICAL BID PRN 11/29/16 11/29/16 History [Ammonium Lactate] Levothyroxine TAB* [Synthroid TAB*] 0.1875 mg PO QAM 11/29/16 11/29/16 History Methenamine Hippurate TAB* [Hiprex 1 gm PO BID 11/29/16 11/29/16 History TAB*] Nystatin CREAM* [Nystatin Cream*] 1 applic TOPICAL BID 11/29/16 11/29/16 History Omeprazole CAP* [Prilosec CAP* 20 20 mg PO QAM 11/29/16 11/29/16 History MG] Oxycodone TAB(NF) [Oxycodone HCl 10 mg PO Q6H PRN 11/29/16 11/29/16 History 10 MG] Oxymetazoline 0.05% NASAL SPR* 1 spray BOTH NARES Q12H PRN 11/29/16 11/29/16 History [Afrin 0.05% NASAL SPRAY*] Pentoxifylline CR TAB* [TRENtal CR 400 mg PO TID 11/29/16 11/29/16 History TAB*] Polyethylene Glycol 3350* 17 gm PO DAILY 11/29/16 11/29/16 History [Miralax*] Rivaroxaban TAB(*) [Xarelto 20 mg] 20 mg PO BEDTIME 11/29/16 11/29/16 History Sennosides-Docusate Sodium 2 tab PO BEDTIME PRN 11/29/16 11/29/16 History [Senokot S] Silodosin(NF) [Rapaflo(NF)] 8 mg PO BEDTIME 11/29/16 11/29/16 History Testosterone Cypionate 200 mg IM Q10D 11/29/16 11/29/16 History [Depo-Testosterone] HPI: Patient developed diarrhea yesterday, had very frequent BM's during last night. No pain. Nausea, ate little yesterday and nothing today. Family History: Findings - DM, HTN, Alzheimer's, colon ca, CAD Social History: Findings - Lives with his who is his SDM. Former smoker. No alcohol abuse. Currently at [facility] x 1 [facility] for re[facility], planned d/ c home 12/04. Past Medical History: Findings - CAD, atrial fib, esophageal ca, IBS, DM, COPD, RA, GERD, BPH, L PATRICIA, tonsillectomy, appy, TURP Review of Systems - Measurements Intake and Output: Intake and Output Last 24 Hours 11/27/16 11/28/16 11/29/16 11/30/16 06:59 06:59 06:59 06:59 Intake Total 1000 Balance 1000 Weight 242 lb Intake: IV Fluids 1000 Other: Date of Last Bowel 11/30 Movement - Review of Systems Constitutional Symptoms: Negative: Weight Gain, Weight Loss, Weakness, Fatigue, Fever, Night Sweats, Unexplained Falls, Other Dermatology: Positive: Normal HEENT: Positive: Normal Eyes: Positive: Normal Thyroid: Positive: Normal Pulmonary: Positive: COPD Cardiology: Positive: Other - atrial fib Gastroenterology: Positive: Nausea, Diarrhea Genital - Urinary: Positive: Normal Musculoskeletal: Positive: Joint Pain Endocrinology: Positive: Obesity, Diabetes Mellitus Hematologic/Lymphatic: Negative: Anemia, Easy Brusing, Hx Leukemia, Hx Lymphoma, Use of Anticoagulant, Use of Antiplatelet Drugs, Other Neurology: Positive: Normal Psychiatry: Positive: Normal Allergic/Immunologic: Negative: Hx Anaphylaxis, Hx Angioedema, Hx Environmental, Hx Seasonal, Athsma, Hx HIV, Immunocompromise, Swollen Glands LymphNodes, Other Objective Vital Signs 11/29/16 11/29/16 11/29/16 11:06 11:08 11:28 Temperature 98.4 F Pulse Rate 71 73 Respiratory 16 Rate Blood Pressure 137/78 137/78 (mmHg) O2 Sat by Pulse 95 97 Oximetry 11/29/16 11/29/16 11/29/16 11:30 12:00 12:05 Temperature Pulse Rate 63 84 Respiratory Rate Blood Pressure 113/68 123/92 (mmHg) O2 Sat by Pulse 93 98 Oximetry 11/29/16 11/29/16 11/29/16 12:18 12:30 13:00 Temperature Pulse Rate 66 62 Respiratory Rate Blood Pressure 144/82 136/66 121/62 (mmHg) O2 Sat by Pulse 95 94 Oximetry 11/29/16 11/29/16 14:00 14:30 Temperature Pulse Rate 69 61 Respiratory Rate Blood Pressure 134/76 120/77 (mmHg) O2 Sat by Pulse 97 96 Oximetry Oxygen Devices in Use Now: None Appearance: Alert, partly up on ED stretcher. In good spirits. Looks comfortable. Eyes: No Scleral Icterus Neck: NL Appearance and Movements; NL JVP, No Thyroid Enlargement, Masses Respiratory: Symmetrical Chest Expansion and Respiratory Effort, Clear to Auscultation, Clear to Percussion Cardiovascular: NL Sounds; No Murmurs; No JVD, RRR, No Edema, - Abdominal: NL Sounds; No Tenderness; No Distention, No Hepatosplenomegaly, - Extremities: No Edema, No Clubbing, Cyanosis, - - L forefoot bandaged Skin: No Rash or Ulcers, No Nodules or Sclerosis, - Neurological: Alert and Oriented x 3, NL Sensation Result Diagrams: 11/30/16 04:28 11/30/16 04:28 Microbiology and Other Data: Microbiology 11/29/16 11:15 Stool Occult Blood (VERONICA) - Final Stool Assess/Plan/Problems-Billing Assessment: - Patient Problems (1) Diarrhea Current Visit: Yes Status: Acute Code(s): R19.7 - DIARRHEA, UNSPECIFIED SNOMED Code(s): 04487645 Comment: Likely viral gastroenteritis. Note nl CRP. Stool C. diff requested. CBC 11/30. (2) Dehydration Current Visit: Yes Status: Acute Code(s): E86.0 - DEHYDRATION SNOMED Code( s): 71057526 Comment: IV fluids with KCL. BMP 11/30. (3) Atrial fibrillation Current Visit: No Status: Chronic Code(s): I48.91 - UNSPECIFIED ATRIAL FIBRILLATION SNOMED Code(s): 56380030 Comment: Continue amiodarone, rivaroxaban. (4) COPD (chronic obstructive pulmonary disease) Current Visit: No Status: Acute Code(s): J44.9 - CHRONIC OBSTRUCTIVE PULMONARY DISEASE, UNSPECIFIED SNOMED Code(s): 61708787 Comment: PRN Clemencia. (5) BPH (benign prostatic hyperplasia) Current Visit: No Status: Acute Code(s): N40.0 - BENIGN PROSTATIC HYPERPLASIA WITHOUT LOWER URINRY TRACT SYMP SNOMED Code(s): 410278341 Comment: Substitute tamsulosin for silodosin while in the hospital. (6) Diabetes mellitus Current Visit: No Status: Chronic Code(s): E11.9 - TYPE 2 DIABETES MELLITUS WITHOUT COMPLICATIONS SNOMED Code(s): 10929969 Comment: Continue Lantus and SSI. (7) Toe ulcer Current Visit: Yes Status: Acute Code(s): L97.509 - NON-PRESSURE CHRONIC ULCER OTH PRT UNSP FOOT W UNSP SEVERITY SNOMED Code(s): 604858703 Comment: I will examine L foot ulcer with nurse 11/30.
[2016-11-29] MEDS ORDERED: GLYCERIN BOTH EYES PRN (16:32)
[2016-11-29] MEDS ORDERED: Oxymetazoline 0.05% NASAL SPR* 15 ML BTL BOTH NARES PRN (16:32)
[2016-11-29] MEDS ORDERED: CARBOXYMETHYLCELLULOSE BOTH EYES PRN (16:32)
[2016-11-29] MEDS ORDERED: Dextrose 50% Syringe 50 ML* 25 GM/50 ML SYRINGE IV PUSH PRN (16:41)
[2016-11-29 16:44] LABS: C Reactive Protein 2.96 mg/L (< 5.00)
[2016-11-29] MEDS ORDERED: NS 0.45% KCl 20 Meq 1000 ML* 1,000 ML IV SCH (17:00)
[2016-11-29] MEDS ORDERED: Albuterol/Ipratropium NEB.SOL* Albuterol 2.5 MG/Ipratropium 0.5 MG 3 ML INH PRN (17:09)
[2016-11-29] MEDS ORDERED: Artificial Tears* 15 ML BTL BOTH EYES PRN (17:32)
--- NOTE | 2016-11-29 18:32 | ED ---
Toma Berry Edward, scribed for Sean Bobo MD on 11/29/16 at 1113 . Complex/Multi-Sys Presentation - HPI Summary HPI Summary: 76 y/o male presents to ED c/o constipation for 4-5 days and diarrhea starting yesterday. Yesterday the patient had 4 normal bowel movements followed by 2 episodes of loose stool. Today he has had multiple episodes of diarrhea. Pt also vomited and found blood in his vomit this morning. Associated sx: chronic blood in his stool (melena), ABD bloating, discomfort in his buttocks. Pt had 3- 4 days of diarrhea around 1 month ago and was seen in the ED. PMHx polyps below his esophagus. - History Of Current Complaint Time Seen by Provider: 11/29/16 11:07 Hx Obtained From: Patient Onset/Duration: Lasting Days Timing: Intermittent, Lasting: Associated Signs And Symptoms: Positive: Nausea, Vomiting, Diarrhea, Melena, Other - Constipation, ABD bloating, chronic blood in stool - Allergies/Home Medications Allergies/Adverse Reactions: Allergies Allergy/AdvReac Type Severity Reaction Status Date / Time Cephalexin [From Keflex] AdvReac Mild GI Upset Verified 11/08/16 10:02 BANANAS Allergy Mild See Comment Uncoded 11/08/16 10:02 WALNUTS Allergy Mild See Comment Uncoded 11/08/16 10:02 Home Medications: Home Medications Albuterol/Ipratropium RESP(NF) [Combivent Respimat(NF)] 1 puff INH QID PRN 11/29 [History Confirmed 11/29/16] Ascorbic Acid TAB* [Vitamin C TAB*] 500 mg PO BEDTIME 11/29/16 [History Confirmed 11/29/16] Atorvastatin* [Lipitor*] 20 mg PO BEDTIME 11/29/16 [History Confirmed 11/29/16] Carboxymethylcellulose-Glyceri [Optive] 1 lamar BOTH EYES DAILY PRN 11/29/16 [ History Confirmed 11/29/16] Control Gel Formula Dressing [Duoderm Cgf] 1 mis TOPICAL FR 11/29/16 [History Confirmed 11/29/16] Cyclosporine 0.05% OPHTH (NF) [Restasis 0.05% OPHTH] 1 drop BOTH EYES Q12HR PRN 11/29/16 [History Confirmed 11/29/16] Eyelid Cleansers [Ocusoft Baby Eyelid & Eye] 1 pad TOPICAL Q12HR PRN 11/29/16 [ History Confirmed 11/29/16] Furosemide TAB* [Lasix TAB*] 20 mg PO DAILY 11/29/16 [History Confirmed 11/29/16 ] Gabapentin CAP(*) [Neurontin 300 CAP(*)] 500 mg PO TID 11/29/16 [History Confirmed 11/29/16] Insulin GLARGINE(*) [Lantus(*)] 34 units SUBCUT BEDTIME 11/29/16 [History Confirmed 11/29/16] Lactic Acid (Ammonium Lactate) [Ammonium Lactate] 12 % TOPICAL BID PRN 11/29/16 [History Confirmed 11/29/16] Levothyroxine TAB* [Synthroid TAB*] 0.1875 mg PO QAM 11/29/16 [History Confirmed 11/29/16] Methenamine Hippurate TAB* [Hiprex TAB*] 1 gm PO BID 11/29/16 [History Confirmed 11/29/16] Nystatin CREAM* [Nystatin Cream*] 1 applic TOPICAL BID 11/29/16 [History Confirmed 11/29/16] Omeprazole CAP* [Prilosec CAP* 20 MG] 20 mg PO QAM 11/29/16 [History Confirmed 11/29/16] Oxycodone TAB(NF) [Oxycodone HCl 10 MG] 10 mg PO Q6H PRN 11/29/16 [History Confirmed 11/29/16] Oxymetazoline 0.05% NASAL SPR* [Afrin 0.05% NASAL SPRAY*] 1 spray BOTH NARES Q12H PRN 11/29/16 [History Confirmed 11/29/16] Pentoxifylline CR TAB* [TRENtal CR TAB*] 400 mg PO TID 11/29/16 [History Confirmed 11/29/16] Polyethylene Glycol 3350* [Miralax*] 17 gm PO DAILY 11/29/16 [History Confirmed 11/29/16] Rivaroxaban TAB(*) [Xarelto 20 mg] 20 mg PO BEDTIME 11/29/16 [History Confirmed 11/29/16] Sennosides-Docusate Sodium [Senokot S] 2 tab PO BEDTIME PRN 11/29/16 [History Confirmed 11/29/16] Silodosin(NF) [Rapaflo(NF)] 8 mg PO BEDTIME 11/29/16 [History Confirmed 11/29/16 ] Testosterone Cypionate [Depo-Testosterone] 200 mg IM Q10D 11/29/16 [History Confirmed 11/29/16] PMH/Surg Hx/FS Hx/Imm Hx Previously Healthy: No Endocrine/Hematology History: Reports: Hx Diabetes, Hx Thyroid Disease Cardiovascular History: Reports: Hx Angina, Hx Angioplasty, Hx Coronary Artery Disease, Hx Hypercholesterolemia, Hx Hypertension, Other Cardiovascular Problems /Disorders - HISTORY OF ATRIAL FIBRILLARION Denies: Hx Congestive Heart Failure, Hx Myocardial Infarction, Hx Pacemaker/ ICD, Hx Valvular Heart Disease Respiratory History: Reports: Hx Chronic Obstructive Pulmonary Disease (COPD), Hx Sleep Apnea Denies: Hx Asthma GI History: Reports: Hx Gall Bladder Disease - removed, Hx Gastroesophageal Reflux Disease, Hx Hiatal Hernia, Hx Ulcer, Other GI Disorders - Barretts esophagus History: Denies: Hx Renal Disease Musculoskeletal History: Reports: Hx Arthritis - ARTHRITIS, Hx Rheumatoid Arthritis, Hx Back Problems, Hx Osteoporosis Sensory History: Reports: Hx Cataracts - RIGHT EYE, Hx Contacts or Glasses - does not have them now Denies: Hx Hearing Aid Opthamlomology History: Reports: Hx Cataracts - RIGHT EYE, Hx Contacts or Glasses - does not have them now Neurological History: Reports: Other Neuro Impairments/Disorders - diabetic neuropathy (feet) Psychiatric History: Reports: Hx Anxiety Denies: Hx Panic Disorder - Cancer History Cancer Type, 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 FEET - [place]. NASAL - CLEAR THE PASSAGE Hx Anesthesia Reactions: No - Immunization History Date of Tetanus Vaccine: uknown Infectious Disease History: Reports: Hx Hepatitis - CURED Denies: Hx Clostridium Difficile, Hx Human Immunodeficiency Virus (HIV), Hx of Known/Suspected MRSA, Hx Shingles, Hx Tuberculosis, Hx Known/Suspected VRE, Hx Known/Suspected VRSA, History Other Infectious Disease, Traveled Outside the [place] in Last 30 Days - Family History Known Family History: Positive: Diabetes, Other - alzheimer's and colon CA - Social History Alcohol Use: Rare Hx Substance Use: No Substance Use Type: Reports: None Hx Tobacco Use: Yes Smoking Status (MU): Former Smoker Type: Cigarettes Amount Used/How Often: 1.5ppd Length of Time of Smoking/Using Tobacco: 50 years Have You Smoked in the Last Year: No Review of Systems Constitutional: Negative Eyes: Negative ENT: Negative Cardiovascular: Negative Respiratory: Negative Positive: Vomiting, Diarrhea, Nausea, Other - Constipation, chronic melena and blood in stool, discomfort in his buttocks Genitourinary: Negative Musculoskeletal: Negative Skin: Negative Neurological: Negative Psychological: Normal All Other Systems Reviewed And Are Negative: Yes Physical Exam Triage Information Reviewed: Yes Vital Signs On Initial Exam: Initial Vitals BP 137/78 11/29/16 11:06 Vital Signs Reviewed: Yes Appearance: Positive: Well-Appearing, No Pain Distress Skin: Positive: Warm Head/Face: Positive: Normal Head/Face Inspection Eyes: Positive: EOMI, KELLY ENT: Positive: Pharynx normal Neck: Positive: Supple, Nontender Respiratory/Lung Sounds: Positive: Clear to Auscultation, Breath Sounds Present Cardiovascular: Positive: Normal, RRR. Negative: Murmur Abdomen Description: Positive: Nontender, Other: - rectal exam with normal tone , and no gross blood. Musculoskeletal: Positive: Strength/ROM Intact. Negative: Edema Left, Edema Right Neurological: Positive: Sensory/Motor Intact, Alert, Oriented to Person Place, Time, CN Intact II-III Diagnostics - Vital Signs Vital Signs Temp Pulse Resp BP Pulse Ox 11/29/16 11:08 98.4 F 71 16 137/78 95 11/29/16 11:06 137/78 - Laboratory Result Diagrams: 11/29/16 11:30 11/29/16 11:30 Lab Statement: Any lab studies that have been ordered have been reviewed, and results considered in the medical decision making process. - CT ABD/PEL CT CT Interpretation: No Acute Changes - 1. NO EVIDENCE FOR ACUTE FINDING OR CAUSE FOR THE PATIENT'S ABDOMINAL PAIN IS SEEN. 2. BILATERAL RENAL CORTICAL SCARRING, UNCHANGED. 3. STATUS POST CHOLECYSTECTOMY. 4. MULTIPLE HEPATIC CYSTS, UNCHANGED. 5. URINARY BLADDER DIVERTICULUM, UNCHANGED. 6. COMPRESSION FRACTURES OF THE L1-L4 LUMBAR VERTEBRA, UNCHANGED. CT Interpretation Completed By: Radiologist - EKG 1 EKG Rhythm: Sinus Rhythm - @ 69 BPM EKG Interpretation: 11:37 - NO STEMI, flat T waves in I, aVL, III and V2 Re-Evaluation - Re-Evaluation 1 Re-Evaluation Time: 13:45 Change: Improved Complex Multi-Symp Course/Dx Course Of Treatment: 76 yr old with guiac positive stools, black color, abd distention. Admitted to the hospitalist for further eval. - Diagnoses Provider Diagnoses: Abdominal pain, Heme positive stool Discharge - Discharge Plan Condition: Stable Disposition: ADMITTED TO [facility] documentation as recorded by the Toma candelario Edward accurately reflects the service I personally performed and the decisions made by Jeramie reinoso Walter, MD.
[2016-11-29] MEDS: Morphine TAB Extended Release (*) 30 MG TAB.ER PO SCH ×2 (20:26→20:38)
[2016-11-29] MEDS: Aspirin Low Dose CHEW TAB* 81 MG PO SCH (20:28)
[2016-11-29] MEDS: Atorvastatin* 20 MG TAB PO SCH (20:28)
[2016-11-29] MEDS: Ascorbic Acid TAB* 500 MG PO SCH (20:28)
[2016-11-29] MEDS: Gabapentin CAP(*) 100 MG PO SCH (20:29)
[2016-11-29] MEDS: Ferrous Sulfate TAB* 325 MG PO SCH (20:29)
[2016-11-29] MEDS: Pentoxifylline CR TAB* 400 MG PO SCH (20:30)
[2016-11-29] MEDS: Tamsulosin CAP* 0.4 MG PO SCH (20:30)
[2016-11-29] MEDS: Enoxaparin(*) 40 MG/0.4 ML SYR SUBCUT SCH (20:34)
[2016-11-29] MEDS: Methenamine Hippurate TAB* 1 GM TAB PO SCH (20:40)
[2016-11-29] MEDS ORDERED: Rivaroxaban TAB(*) 20 MG TAB PO SCH (21:00)
[2016-11-29] MEDS: Nystatin CREAM* 15 GM TUBE TOPICAL SCH (21:08)
[2016-11-29] MEDS ORDERED: Insulin GLARGINE(*) 1 UNITS UNIT SUBCUT ONE (21:10)
[2016-11-29 21:11] LABS: Urine Bilirubin Negative (Negative); Urine Glucose Negative (Negative); Urine Nitrite Negative (Negative)
[2016-11-29] MEDS: Insulin LISPRO* 1 UNITS UNIT SUBCUT SCH (21:12)
[2016-11-29] MEDS: Insulin GLARGINE(*) 1 UNITS UNIT SUBCUT SCH (21:46)
[2016-11-30 05:13] LABS: Hematocrit 38 % (42-52); Hemoglobin 12.2 g/dl (14.0-18.0); Mean Corpuscular HGB Conc 32 g/dl (31-36); Mean Corpuscular Hemoglobin 29 pg (27-31); Mean Corpuscular Volume 90 fL (80-94); Mean Platelet Volume 7 um3 (7.4-10.4); Red Blood Count 4.22 10^6/ul (4.0-5.4); Red Cell Distribution Width 17 % (10.5-15); White Blood Count 7.9 10^3/ul (3.5-10.8)
[2016-11-30 05:34] LABS: BUN/Creatinine Ratio 13.3 (8-20); Calcium 8.8 mg/dL (8.6-10.3); EGFR African American 75.9 (>60); Potassium 3.5 mmol/L (3.5-5.0)
[2016-11-30] MEDS: Levothyroxine TAB* 75 MCG TAB PO SCH (05:48)
[2016-11-30] MEDS: Morphine TAB Extended Release (*) 30 MG TAB.ER PO SCH ×2 (05:49→17:55)
[2016-11-30] MEDS: Amiodarone TAB* 200 MG PO SCH (08:25)
[2016-11-30] MEDS: Methenamine Hippurate TAB* 1 GM TAB PO SCH ×2 (08:25→21:16)
[2016-11-30] MEDS: Omeprazole CAP* 20 MG PO SCH (08:26)
[2016-11-30] MEDS: Gabapentin CAP(*) 100 MG PO SCH ×3 (08:27→21:18)
[2016-11-30] MEDS: metroNIDAZOLE TAB* 250 MG PO SCH ×3 (09:39→21:18)
[2016-11-30] MEDS: Pentoxifylline CR TAB* 400 MG PO SCH ×3 (09:39→21:16)
[2016-11-30] MEDS: Insulin LISPRO* 1 UNITS UNIT SUBCUT SCH ×4 (09:40→21:15)
[2016-11-30] MEDS: Nystatin CREAM* 15 GM TUBE TOPICAL SCH ×2 (09:44→22:42)
[2016-11-30] MEDS: Ondansetron ODT TAB* 4 MG SL PRN ×2 (09:56→16:30)
--- NOTE | 2016-11-30 14:59 | PN ---
Subjective Date of Service: 11/30/16 Interval History: Still having diarrhea. Poor appetite, tolerating liquids OK. Weaker than before this illness. Family History: Findings - DM, HTN, Alzheimer's, colon ca, CAD Social History: Findings - Lives with his who is his SDM. Former smoker. No alcohol abuse. Currently at [facility] x 1 [facility] re[facility], planned d/ c home 12/04. Past Medical History: Findings - CAD, atrial fib, esophageal ca, IBS, DM, COPD, RA, GERD, BPH, L PATRICIA, tonsillectomy, appy, TURP Objective Active Medications: Albuterol/Ipratropium (Duoneb (Albuterol 2.5 Mg/Ipratropium 0.5 Mg)) 1 neb INH Q4H PRN PRN Reason: SOB/WHEEZING Amiodarone HCl (Cordarone Tab*) 200 mg PO DAILY [facility] Last Admin: 11/30/16 08:25 Dose: 200 mg Ascorbic Acid (Vitamin C Tab*) 500 mg PO BEDTIME [facility] Last Admin: 11/29/16 20:28 Dose: 500 mg Aspirin (Aspirin Low Dose Tab*) 81 mg PO BEDTIME [facility] Last Admin: 11/29/16 20:28 Dose: 81 mg Atorvastatin Calcium (Lipitor*) 20 mg PO BEDTIME [facility] Last Admin: 11/29/16 20:28 Dose: 20 mg Dextrose (D50w Syringe 50 Ml*) 12.5 gm IV PUSH .FOR FS < 60 - SS PRN PRN Reason: FS < 60 Enoxaparin Sodium (Lovenox(*)) 40 mg SUBCUT Q24H [facility] Last Admin: 11/29/16 20:34 Dose: 40 mg Ferrous Sulfate (Ferrous Sulfate Tab*) 325 mg PO BEDTIME [facility] Last Admin: 11/29/16 20:29 Dose: 325 mg Gabapentin (Neurontin Cap(*)) 500 mg PO TID [facility] Last Admin: 11/30/16 08:27 Dose: 500 mg Potassium Chloride/Sodium Chloride (Ns 0.9% W/ 20 Meq Kcl 1000 Ml*) 1,000 mls @ 75 mls/hr IV PER RATE [facility] Insulin Glargine (Lantus(*)) 24 units SUBCUT BEDTIME [facility] Last Admin: 11/29/16 21:46 Dose: Not Given Insulin Human Lispro (Humalog*) 0 units SUBCUT ACHS [facility] PRN Reason: Protocol Last Admin: 11/30/16 13:25 Dose: 2 units Levothyroxine Sodium (Synthroid Tab*) 187.5 mcg PO QAM@0600 [facility] Last Admin: 11/30/16 05:48 Dose: 187.5 mcg Lorazepam (Ativan Tab(*)) 1 mg PO TID PRN PRN Reason: ANXIETY Methenamine Hippurate (Hiprex Tab*) 1 gm PO BID [facility] Last Admin: 11/30/16 08:25 Dose: 1 gm Metronidazole (Flagyl Tab*) 500 mg PO TID [facility] Last Admin: 11/30/16 09:39 Dose: 500 mg Morphine Sulfate (Ms Contin(*)) 30 mg PO Q12H [facility] Last Admin: 11/30/16 05:49 Dose: 30 mg Nystatin (Nystatin Cream*) 1 applic TOPICAL BID [facility] Last Admin: 11/30/16 09:44 Dose: Not Given Omeprazole (Prilosec Cap*) 20 mg PO QAM@0730 [facility] Last Admin: 11/30/16 08:26 Dose: 20 mg Ondansetron HCl (Zofran Odt Tab*) 4 mg SL Q6H PRN PRN Reason: NAUSEA/VOMITING Last Admin: 11/30/16 09:56 Dose: 4 mg Oxycodone HCl (Roxycodone Tab*) 10 mg PO Q6H PRN PRN Reason: PAIN Oxymetazoline HCl (Afrin 0.05% Nasal [place]*) 1 spray BOTH NARES Q12H PRN PRN Reason: CONGESTION Pentoxifylline (Trental Cr Tab*) 400 mg PO TID [facility] Last Admin: 11/30/16 09:39 Dose: 400 mg Polyvinyl Alcohol (Polyvinyl Alcohol 1.4% Opth*) 1 drop BOTH EYES DAILY PRN PRN Reason: DRY EYE Tamsulosin HCl (Flomax Cap*) 0.4 mg PO BEDTIME [facility] Last Admin: 11/29/16 20:30 Dose: 0.4 mg Vital Signs 11/29/16 11/29/16 11/29/16 17:25 18:13 20:29 Temperature 98.1 F Pulse Rate 68 Respiratory 18 24 18 Rate Blood Pressure 155/74 (mmHg) O2 Sat by Pulse 95 Oximetry 11/29/16 11/29/16 11/29/16 20:30 20:38 22:29 Temperature 98.5 F Pulse Rate 64 Respiratory 20 18 18 Rate Blood Pressure 139/68 (mmHg) O2 Sat by Pulse 97 Oximetry 11/29/16 11/30/16 11/30/16 22:38 00:13 03:56 Temperature 98.1 F 97.9 F Pulse Rate 74 75 Respiratory 18 20 22 Rate Blood Pressure 117/44 141/70 (mmHg) O2 Sat by Pulse 94 96 Oximetry 11/30/16 11/30/16 11/30/16 05:49 07:49 08:00 Temperature Pulse Rate Respiratory 18 22 20 Rate Blood Pressure (mmHg) O2 Sat by Pulse Oximetry 11/30/16 11/30/16 11/30/16 08:05 08:27 11:15 Temperature 98.3 F 98.5 F Pulse Rate 71 62 Respiratory 18 22 18 Rate Blood Pressure 113/77 117/60 (mmHg) O2 Sat by Pulse 94 96 Oximetry Oxygen Devices in Use Now: None Appearance: Alert, on his side in bed. In fair spirits. Looks comfortable. Eyes: No Scleral Icterus Abdominal: NL Sounds; No Tenderness; No Distention, No Hepatosplenomegaly, - Extremities: No Edema, No Clubbing, Cyanosis, - - 3 mm x 3 mm ulcer medial surface L 5th toe, clean base. Skin: No Rash or Ulcers, No Nodules or Sclerosis, - Neurological: Alert and Oriented x 3, NL Sensation Result Diagrams: 11/30/16 04:28 11/30/16 04:28 Microbiology and Other Data: Microbiology 11/29/16 11:15 Stool Occult Blood (VERONICA) - Final Stool Assess/Plan/Problems-Billing Assessment: - Patient Problems (1) Dehydration Current Visit: Yes Status: Acute Code(s): E86.0 - DEHYDRATION SNOMED Code( s): 64191608 Comment: IV fluids with KCL. [facility] 11/30. (2) Atrial fibrillation Current Visit: No Status: Chronic Code(s): I48.91 - UNSPECIFIED ATRIAL FIBRILLATION SNOMED Code(s): 30153727 Comment: Continue amiodarone, rivaroxaban. (3) COPD (chronic obstructive pulmonary disease) Current Visit: No Status: Acute Code(s): J44.9 - CHRONIC OBSTRUCTIVE PULMONARY DISEASE, UNSPECIFIED SNOMED Code(s): 42823443 Comment: PRN Duoneb. (4) BPH (benign prostatic hyperplasia) Current Visit: No Status: Acute Code(s): N40.0 - BENIGN PROSTATIC HYPERPLASIA WITHOUT LOWER URINRY TRACT SYMP SNOMED Code(s): 380034980 Comment: Substitute tamsulosin for silodosin while in the hospital. (5) C. difficile colitis Current Visit: Yes Status: Acute Comment: Continue oral metronidazole, IVF. (6) Diabetes mellitus Current Visit: No Status: Chronic Code(s): E11.9 - TYPE 2 DIABETES MELLITUS WITHOUT COMPLICATIONS SNOMED Code(s): 28913873 Comment: Continue Lantus and SSI. (7) Toe ulcer Current Visit: Yes Status: Acute Code(s): L97.509 - NON-PRESSURE CHRONIC ULCER OTH PRT UNSP FOOT W UNSP SEVERITY SNOMED Code(s): 177133565 Comment: Ulcer L fifth toe healing well. Bacitracin and gauze to be applied by nurse.
[2016-11-30] MEDS: NS 0.9% w/ 20 Meq KCL 1000 ML* 1,000 ML IV SCH (15:18)
[2016-11-30] MEDS: Enoxaparin(*) 40 MG/0.4 ML SYR SUBCUT SCH (16:30)
[2016-11-30] MEDS: Insulin GLARGINE(*) 1 UNITS UNIT SUBCUT SCH (21:15)
[2016-11-30] MEDS: LORazepam TAB(*) 1 MG PO PRN (21:16)
[2016-11-30] MEDS: Atorvastatin* 20 MG TAB PO SCH (21:17)
[2016-11-30] MEDS: Ferrous Sulfate TAB* 325 MG PO SCH (21:17)
[2016-11-30] MEDS: oxyCODONE TAB* 5 MG TAB PO PRN (21:17)
[2016-11-30] MEDS: Tamsulosin CAP* 0.4 MG PO SCH (21:17)
[2016-11-30] MEDS: Ascorbic Acid TAB* 500 MG PO SCH (21:17)
[2016-11-30] MEDS: Aspirin Low Dose CHEW TAB* 81 MG PO SCH (21:18)
[2016-12-01] MEDS: LORazepam TAB(*) 1 MG PO PRN ×3 (04:23→23:50)
[2016-12-01] MEDS: Morphine TAB Extended Release (*) 30 MG TAB.ER PO SCH ×2 (04:23→17:08)
[2016-12-01] MEDS: NS 0.9% w/ 20 Meq KCL 1000 ML* 1,000 ML IV SCH (04:23)
[2016-12-01] MEDS: oxyCODONE TAB* 5 MG TAB PO PRN ×3 (04:28→23:52)
[2016-12-01] MEDS: Levothyroxine TAB* 75 MCG TAB PO SCH (06:14)
[2016-12-01] MEDS: Insulin LISPRO* 1 UNITS UNIT SUBCUT SCH ×4 (08:01→21:08)
[2016-12-01] MEDS: Pentoxifylline CR TAB* 400 MG PO SCH ×3 (08:13→21:05)
[2016-12-01] MEDS: Omeprazole CAP* 20 MG PO SCH (08:13)
[2016-12-01] MEDS: metroNIDAZOLE TAB* 250 MG PO SCH (08:14)
[2016-12-01] MEDS: Gabapentin CAP(*) 100 MG PO SCH ×3 (08:14→21:06)
[2016-12-01] MEDS: Nystatin CREAM* 15 GM TUBE TOPICAL SCH ×2 (08:15→21:07)
[2016-12-01] MEDS: Amiodarone TAB* 200 MG PO SCH (08:20)
[2016-12-01] MEDS: Methenamine Hippurate TAB* 1 GM TAB PO SCH ×2 (08:20→21:04)
--- NOTE | 2016-12-01 10:20 | PN ---
Subjective Date of Service: 12/01/16 Interval History: C/O nausea, had emesis yesterday. Ate some breakfast. Fair on liquids. No BM since last evening. Family History: Findings - DM, HTN, Alzheimer's, colon ca, CAD Social History: Findings - Lives with his who is his SDM. Former smoker. No alcohol abuse. Currently at [facility] x 1 [facility] for rehab, planned d/ c home 12/04. Past Medical History: Findings - CAD, atrial fib, esophageal ca, IBS, DM, COPD, RA, GERD, BPH, L PATRICIA, tonsillectomy, appy, TURP Objective Active Medications: Albuterol/Ipratropium (Duoneb (Albuterol 2.5 Mg/Ipratropium 0.5 Mg)) 1 neb INH Q4H PRN PRN Reason: SOB/WHEEZING Amiodarone HCl (Cordarone Tab*) 200 mg PO DAILY [facility] Last Admin: 12/01/16 08:20 Dose: 200 mg Ascorbic Acid (Vitamin C Tab*) 500 mg PO BEDTIME [facility] Last Admin: 11/30/16 21:17 Dose: 500 mg Aspirin (Aspirin Low Dose Tab*) 81 mg PO BEDTIME [facility] Last Admin: 11/30/16 21:18 Dose: 81 mg Atorvastatin Calcium (Lipitor*) 20 mg PO BEDTIME [facility] Last Admin: 11/30/16 21:17 Dose: 20 mg Dextrose (D50w Syringe 50 Ml*) 12.5 gm IV PUSH .FOR FS < 60 - SS PRN PRN Reason: FS < 60 Enoxaparin Sodium (Lovenox(*)) 40 mg SUBCUT Q24H [facility] Last Admin: 11/30/16 16:30 Dose: 40 mg Ferrous Sulfate (Ferrous Sulfate Tab*) 325 mg PO BEDTIME [facility] Last Admin: 11/30/16 21:17 Dose: 325 mg Gabapentin (Neurontin Cap(*)) 500 mg PO TID [facility] Last Admin: 12/01/16 08:14 Dose: 500 mg Insulin Glargine (Lantus(*)) 24 units SUBCUT BEDTIME [facility] Last Admin: 11/30/16 21:15 Dose: 24 units Insulin Human Lispro (Humalog*) 0 units SUBCUT ACHS [facility] PRN Reason: Protocol Last Admin: 12/01/16 08:01 Dose: Not Given Levothyroxine Sodium (Synthroid Tab*) 187.5 mcg PO QAM@0600 [facility] Last Admin: 12/01/16 06:14 Dose: 187.5 mcg Lorazepam (Ativan Tab(*)) 1 mg PO TID PRN PRN Reason: ANXIETY Last Admin: 12/01/16 04:23 Dose: 1 mg Methenamine Hippurate (Hiprex Tab*) 1 gm PO BID [facility] Last Admin: 12/01/16 08:20 Dose: 1 gm Metronidazole (Flagyl Tab*) 500 mg PO TID [facility] Last Admin: 12/01/16 08:14 Dose: 500 mg Morphine Sulfate (Ms Contin(*)) 30 mg PO Q12H [facility] Last Admin: 12/01/16 04:23 Dose: 30 mg Nystatin (Nystatin Cream*) 1 applic TOPICAL BID [facility] Last Admin: 12/01/16 08:15 Dose: Not Given Omeprazole (Prilosec Cap*) 20 mg PO QAM@0730 [facility] Last Admin: 12/01/16 08:13 Dose: 20 mg Ondansetron HCl (Zofran Odt Tab*) 4 mg SL Q6H PRN PRN Reason: NAUSEA/VOMITING Last Admin: 11/30/16 16:30 Dose: 4 mg Oxycodone HCl (Roxycodone Tab*) 10 mg PO Q6H PRN PRN Reason: PAIN Last Admin: 12/01/16 04:28 Dose: 10 mg Oxymetazoline HCl (Afrin 0.05% Nasal [place]*) 1 spray BOTH NARES Q12H PRN PRN Reason: CONGESTION Pentoxifylline (Trental Cr Tab*) 400 mg PO TID [facility] Last Admin: 12/01/16 08:13 Dose: 400 mg Polyvinyl Alcohol (Polyvinyl Alcohol 1.4% Opth*) 1 drop BOTH EYES DAILY PRN PRN Reason: DRY EYE Tamsulosin HCl (Flomax Cap*) 0.4 mg PO BEDTIME [facility] Last Admin: 11/30/16 21:17 Dose: 0.4 mg Vital Signs 11/30/16 11/30/16 11/30/16 10:27 11:15 15:09 Temperature 98.5 F Pulse Rate 62 Respiratory 18 18 18 Rate Blood Pressure 117/60 (mmHg) O2 Sat by Pulse 96 Oximetry 11/30/16 11/30/16 11/30/16 16:07 17:09 17:55 Temperature 97.9 F Pulse Rate 65 Respiratory 22 16 16 Rate Blood Pressure 127/60 (mmHg) O2 Sat by Pulse 96 Oximetry 11/30/16 11/30/16 11/30/16 19:44 19:50 20:00 Temperature 98.3 F Pulse Rate 64 Respiratory 17 16 18 Rate Blood Pressure 115/51 (mmHg) O2 Sat by Pulse 93 Oximetry 11/30/16 11/30/16 11/30/16 21:16 21:17 21:18 Temperature Pulse Rate Respiratory 20 20 20 Rate Blood Pressure (mmHg) O2 Sat by Pulse Oximetry 11/30/16 11/30/16 11/30/16 23:16 23:17 23:18 Temperature Pulse Rate Respiratory 18 16 18 Rate Blood Pressure (mmHg) O2 Sat by Pulse Oximetry 12/01/16 12/01/16 12/01/16 00:07 04:11 04:23 Temperature 98.8 F 98.3 F Pulse Rate 65 75 Respiratory 20 20 16 Rate Blood Pressure 96/49 107/50 (mmHg) O2 Sat by Pulse 96 96 Oximetry 12/01/16 12/01/16 12/01/16 04:28 06:23 07:40 Temperature Pulse Rate Respiratory 16 15 15 Rate Blood Pressure (mmHg) O2 Sat by Pulse Oximetry 12/01/16 12/01/16 07:50 08:14 Temperature 98.0 F Pulse Rate 69 Respiratory 16 16 Rate Blood Pressure 98/44 (mmHg) O2 Sat by Pulse 92 Oximetry Oxygen Devices in Use Now: None Appearance: Alert, on L side in bed. Looks weak and discouraged. Eyes: No Scleral Icterus Neck: NL Appearance and Movements; NL JVP, No Thyroid Enlargement, Masses Respiratory: Symmetrical Chest Expansion and Respiratory Effort, Clear to Auscultation, Clear to Percussion Cardiovascular: NL Sounds; No Murmurs; No JVD, RRR, No Edema, - Abdominal: NL Sounds; No Tenderness; No Distention, No Hepatosplenomegaly, - Extremities: No Edema, No Clubbing, Cyanosis, - Skin: No Rash or Ulcers, No Nodules or Sclerosis, - Neurological: NL Sensation Result Diagrams: 11/30/16 04:28 11/30/16 04:28 Microbiology and Other Data: Microbiology 11/29/16 11:15 Stool Occult Blood (VERONICA) - Final Stool Assess/Plan/Problems-Billing Assessment: - Patient Problems (1) Dehydration Current Visit: Yes Status: Acute Code(s): E86.0 - DEHYDRATION SNOMED Code( s): 05551082 Comment: Stop IVF. BMP 12/02. (2) Atrial fibrillation Current Visit: No Status: Chronic Code(s): I48.91 - UNSPECIFIED ATRIAL FIBRILLATION SNOMED Code(s): 97683349 Comment: Continue amiodarone, rivaroxaban. (3) COPD (chronic obstructive pulmonary disease) Current Visit: No Status: Acute Code(s): J44.9 - CHRONIC OBSTRUCTIVE PULMONARY DISEASE, UNSPECIFIED SNOMED Code(s): 83231613 Comment: PRN Duoneb. (4) BPH (benign prostatic hyperplasia) Current Visit: No Status: Acute Code(s): N40.0 - BENIGN PROSTATIC HYPERPLASIA WITHOUT LOWER URINRY TRACT SYMP SNOMED Code(s): 498048185 Comment: Substitute tamsulosin for silodosin while in the hospital. (5) Diabetes mellitus Current Visit: No Status: Chronic Code(s): E11.9 - TYPE 2 DIABETES MELLITUS WITHOUT COMPLICATIONS SNOMED Code(s): 30012398 Comment: Continue Lantus and SSI. (6) Toe ulcer Current Visit: Yes Status: Acute Code(s): L97.509 - NON-PRESSURE CHRONIC ULCER OTH PRT UNSP FOOT W UNSP SEVERITY SNOMED Code(s): 820186265 Comment: See note from 11/30. (7) C. difficile colitis Current Visit: Yes Status: Acute Comment: Change to oral vancomycin as metro may be causing N&V.
[2016-12-01] MEDS: Vancomycin CAP* 125 MG CAP PO SCH ×3 (13:14→21:06)
[2016-12-01] MEDS: Enoxaparin(*) 40 MG/0.4 ML SYR SUBCUT SCH (17:09)
[2016-12-01] MEDS: Atorvastatin* 20 MG TAB PO SCH (21:04)
[2016-12-01] MEDS: Tamsulosin CAP* 0.4 MG PO SCH (21:04)
[2016-12-01] MEDS: Ferrous Sulfate TAB* 325 MG PO SCH (21:05)
[2016-12-01] MEDS: Ascorbic Acid TAB* 500 MG PO SCH (21:05)
[2016-12-01] MEDS: Aspirin Low Dose CHEW TAB* 81 MG PO SCH (21:05)
[2016-12-01] MEDS: Insulin GLARGINE(*) 1 UNITS UNIT SUBCUT SCH (21:08)
[2016-12-02 05:00] LABS: Hematocrit 30 % (42-52); Hemoglobin 9.7 g/dl (14.0-18.0); Mean Corpuscular HGB Conc 33 g/dl (31-36); Mean Corpuscular Hemoglobin 30 pg (27-31); Mean Corpuscular Volume 91 fL (80-94); Mean Platelet Volume 7 um3 (7.4-10.4); Red Blood Count 3.28 10^6/ul (4.0-5.4); Red Cell Distribution Width 16 % (10.5-15); White Blood Count 6.7 10^3/ul (3.5-10.8)
[2016-12-02 05:29] LABS: BUN/Creatinine Ratio 8.2 (8-20); Calcium 8.5 mg/dL (8.6-10.3); EGFR African American 60.5 (>60); EGFR Non-African American 47.1 (>60); Potassium 3.9 mmol/L (3.5-5.0)
[2016-12-02] MEDS: Morphine TAB Extended Release (*) 30 MG TAB.ER PO SCH ×2 (06:05→17:46)
[2016-12-02] MEDS: Levothyroxine TAB* 75 MCG TAB PO SCH (06:05)
[2016-12-02] MEDS: Insulin LISPRO* 1 UNITS UNIT SUBCUT SCH ×4 (08:47→20:34)
[2016-12-02] MEDS: Pentoxifylline CR TAB* 400 MG PO SCH ×3 (09:24→20:37)
[2016-12-02] MEDS: Gabapentin CAP(*) 100 MG PO SCH ×3 (09:24→20:34)
[2016-12-02] MEDS: Methenamine Hippurate TAB* 1 GM TAB PO SCH ×2 (09:25→20:36)
[2016-12-02] MEDS: Vancomycin CAP* 125 MG CAP PO SCH ×4 (09:25→20:37)
[2016-12-02] MEDS: Nystatin CREAM* 15 GM TUBE TOPICAL SCH ×2 (09:25→20:36)
[2016-12-02] MEDS: Amiodarone TAB* 200 MG PO SCH (09:25)
[2016-12-02] MEDS: Omeprazole CAP* 20 MG PO SCH (09:29)
[2016-12-02] MEDS: LORazepam TAB(*) 1 MG PO PRN ×2 (09:29→17:45)
[2016-12-02] MEDS: D5W 1/2 NS KCl 20 Meq 1000 ML* 1,000 ML IV SCH ×2 (09:36→17:45)
--- NOTE | 2016-12-02 14:21 | PN ---
Subjective Date of Service: 12/02/16 Interval History: No more N&V, ate OK today. No BM so far today. Family History: Findings - DM, HTN, Alzheimer's, colon ca, CAD Social History: Findings - Lives with his who is his SDM. Former smoker. No alcohol abuse. Currently at [facility] x 1 [facility] for rehab, planned d/ c home 12/04. Past Medical History: Findings - CAD, atrial fib, esophageal ca, IBS, DM, COPD, RA, GERD, BPH, L PATRICIA, tonsillectomy, appy, TURP Objective Active Medications: Albuterol/Ipratropium (Duoneb (Albuterol 2.5 Mg/Ipratropium 0.5 Mg)) 1 neb INH Q4H PRN PRN Reason: SOB/WHEEZING Amiodarone HCl (Cordarone Tab*) 200 mg PO DAILY [facility] Last Admin: 12/02/16 09:25 Dose: 200 mg Ascorbic Acid (Vitamin C Tab*) 500 mg PO BEDTIME [facility] Last Admin: 12/01/16 21:05 Dose: 500 mg Aspirin (Aspirin Low Dose Tab*) 81 mg PO BEDTIME [facility] Last Admin: 12/01/16 21:05 Dose: 81 mg Atorvastatin Calcium (Lipitor*) 20 mg PO BEDTIME [facility] Last Admin: 12/01/16 21:04 Dose: 20 mg Dextrose (D50w Syringe 50 Ml*) 12.5 gm IV PUSH .FOR FS < 60 - SS PRN PRN Reason: FS < 60 Enoxaparin Sodium (Lovenox(*)) 40 mg SUBCUT Q24H [facility] Last Admin: 12/01/16 17:09 Dose: 40 mg Ferrous Sulfate (Ferrous Sulfate Tab*) 325 mg PO BEDTIME [facility] Last Admin: 12/01/16 21:05 Dose: 325 mg Gabapentin (Neurontin Cap(*)) 500 mg PO TID [facility] Last Admin: 12/02/16 09:24 Dose: 500 mg Potassium Chloride/Dextrose (D5w 1/2 Ns Kcl 20 Meq 1000 Ml*) 1,000 mls @ 125 mls/hr IV PER RATE [facility] Last Admin: 12/02/16 09:36 Dose: 125 mls/hr Insulin Glargine (Lantus(*)) 24 units SUBCUT BEDTIME [facility] Last Admin: 08/23/17 21:08 Dose: 24 units Insulin Human Lispro (Humalog*) 0 units SUBCUT ACHS [facility] PRN Reason: Protocol Last Admin: 12/02/16 12:48 Dose: 2 units Levothyroxine Sodium (Synthroid Tab*) 225 mcg PO QAM@0600 [facility] Last Admin: 12/02/16 06:05 Dose: 225 mcg Lorazepam (Ativan Tab(*)) 1 mg PO TID PRN PRN Reason: ANXIETY Last Admin: 12/02/16 09:29 Dose: 1 mg Methenamine Hippurate (Hiprex Tab*) 1 gm PO BID [facility] Last Admin: 12/02/16 09:25 Dose: 1 gm Morphine Sulfate (Ms Contin(*)) 30 mg PO Q12H [facility] Last Admin: 12/02/16 06:05 Dose: 30 mg Nystatin (Nystatin Cream*) 1 applic TOPICAL BID [facility] Last Admin: 12/02/16 09:25 Dose: Not Given Omeprazole (Prilosec Cap*) 20 mg PO QAM@0730 [facility] Last Admin: 12/02/16 09:29 Dose: 20 mg Ondansetron HCl (Zofran Odt Tab*) 4 mg SL Q6H PRN PRN Reason: NAUSEA/VOMITING Last Admin: 11/30/16 16:30 Dose: 4 mg Oxycodone HCl (Roxycodone Tab*) 10 mg PO Q6H PRN PRN Reason: PAIN Last Admin: 12/01/16 23:52 Dose: 10 mg Oxymetazoline HCl (Afrin 0.05% Nasal [place]*) 1 spray BOTH NARES Q12H PRN PRN Reason: CONGESTION Pentoxifylline (Trental Cr Tab*) 400 mg PO TID [facility] Last Admin: 12/02/16 09:24 Dose: 400 mg Polyvinyl Alcohol (Polyvinyl Alcohol 1.4% Opth*) 1 drop BOTH EYES DAILY PRN PRN Reason: DRY EYE Tamsulosin HCl (Flomax Cap*) 0.4 mg PO BEDTIME [facility] Last Admin: 12/01/16 21:04 Dose: 0.4 mg Vancomycin HCl (Vancomycin Cap*) 125 mg PO QID [facility] Last Admin: 12/02/16 12:49 Dose: 125 mg Vital Signs 12/01/16 12/01/16 12/01/16 15:15 16:24 17:08 Temperature 98.1 F Pulse Rate 64 Respiratory 16 20 17 Rate Blood Pressure 127/52 (mmHg) O2 Sat by Pulse 93 Oximetry 12/01/16 12/01/16 12/01/16 19:08 19:25 20:00 Temperature 97.6 F Pulse Rate 62 Respiratory 18 16 16 Rate Blood Pressure 108/52 (mmHg) O2 Sat by Pulse 97 Oximetry 12/01/16 12/01/16 12/01/16 21:06 23:22 23:50 Temperature 97.6 F Pulse Rate 66 Respiratory 18 16 15 Rate Blood Pressure 112/55 (mmHg) O2 Sat by Pulse 96 Oximetry 12/01/16 12/02/16 12/02/16 23:52 01:50 01:52 Temperature Pulse Rate Respiratory 15 16 16 Rate Blood Pressure (mmHg) O2 Sat by Pulse Oximetry 12/02/16 12/02/16 12/02/16 03:27 06:05 08:05 Temperature 98.2 F Pulse Rate 66 Respiratory 16 16 18 Rate Blood Pressure 106/42 (mmHg) O2 Sat by Pulse 93 Oximetry 12/02/16 12/02/16 12/02/16 09:24 09:29 09:46 Temperature 98.5 F Pulse Rate 68 Respiratory 18 18 16 Rate Blood Pressure 102/49 (mmHg) O2 Sat by Pulse 92 Oximetry 12/02/16 12/02/16 11:24 11:29 Temperature Pulse Rate Respiratory 16 16 Rate Blood Pressure (mmHg) O2 Sat by Pulse Oximetry Oxygen Devices in Use Now: None Appearance: Alert, partly up in bed. In fair spirits. Looks weak but comfortable. Eyes: No Scleral Icterus Neck: NL Appearance and Movements; NL JVP Respiratory: Symmetrical Chest Expansion and Respiratory Effort, Clear to Auscultation, Clear to Percussion Cardiovascular: NL Sounds; No Murmurs; No JVD, RRR, No Edema, - Extremities: No Edema, No Clubbing, Cyanosis, - - L forefoot bandaged Skin: No Rash or Ulcers, No Nodules or Sclerosis, - Neurological: Alert and Oriented x 3, NL Sensation Result Diagrams: 12/02/16 04:49 12/02/16 04:49 Microbiology and Other Data: Microbiology 11/29/16 11:15 Stool Occult Blood (VERONICA) - Final Stool Assess/Plan/Problems-Billing Assessment: - Patient Problems (1) Dehydration Current Visit: Yes Status: Acute Code(s): E86.0 - DEHYDRATION SNOMED Code( s): 07994540 Comment: More IVF. BMP 12/03. (2) Atrial fibrillation Current Visit: No Status: Chronic Code(s): I48.91 - UNSPECIFIED ATRIAL FIBRILLATION SNOMED Code(s): 85518721 Comment: Continue amiodarone. Consider re-starting rivaroxaban if H&H stable. (3) COPD (chronic obstructive pulmonary disease) Current Visit: No Status: Acute Code(s): J44.9 - CHRONIC OBSTRUCTIVE PULMONARY DISEASE, UNSPECIFIED SNOMED Code(s): 46427211 Comment: PRN Duoneb. (4) BPH (benign prostatic hyperplasia) Current Visit: No Status: Acute Code(s): N40.0 - BENIGN PROSTATIC HYPERPLASIA WITHOUT LOWER URINRY TRACT SYMP SNOMED Code(s): 779989956 Comment: Substitute tamsulosin for silodosin while in the hospital. (5) Diabetes mellitus Current Visit: No Status: Chronic Code(s): E11.9 - TYPE 2 DIABETES MELLITUS WITHOUT COMPLICATIONS SNOMED Code(s): 67466115 Comment: Continue Lantus and SSI. (6) Toe ulcer Current Visit: Yes Status: Acute Code(s): L97.509 - NON-PRESSURE CHRONIC ULCER OTH PRT UNSP FOOT W UNSP SEVERITY SNOMED Code(s): 818193521 Comment: See note from 11/30. (7) C. difficile colitis Current Visit: Yes Status: Acute Comment: Tolerating oral vancomycin, likely metro caused N&V. Complete 14 days vancomycin as this is not his first episode. (8) Debility Current Visit: Yes Status: Acute Code(s): R53.81 - OTHER MALAISE SNOMED Code(s): 42155904 Comment: Likely will need at least 1 more week than planned at [facility].
[2016-12-02] MEDS: Enoxaparin(*) 40 MG/0.4 ML SYR SUBCUT SCH (17:46)
[2016-12-02] MEDS: Insulin GLARGINE(*) 1 UNITS UNIT SUBCUT SCH (20:33)
[2016-12-02] MEDS: Atorvastatin* 20 MG TAB PO SCH (20:34)
[2016-12-02] MEDS: Tamsulosin CAP* 0.4 MG PO SCH (20:35)
[2016-12-02] MEDS: Ferrous Sulfate TAB* 325 MG PO SCH (20:35)
[2016-12-02] MEDS: Aspirin Low Dose CHEW TAB* 81 MG PO SCH (20:35)
[2016-12-02] MEDS: Ascorbic Acid TAB* 500 MG PO SCH (20:35)
[2016-12-03] MEDS: LORazepam TAB(*) 1 MG PO PRN ×3 (01:25→17:37)
[2016-12-03] MEDS: D5W 1/2 NS KCl 20 Meq 1000 ML* 1,000 ML IV SCH ×3 (01:30→17:36)
[2016-12-03] MEDS: Levothyroxine TAB* 75 MCG TAB PO SCH (05:23)
[2016-12-03] MEDS: Morphine TAB Extended Release (*) 30 MG TAB.ER PO SCH ×2 (05:24→17:36)
[2016-12-03 06:02] LABS: Hematocrit 30 % (42-52); Hemoglobin 9.7 g/dl (14.0-18.0); Mean Corpuscular HGB Conc 32 g/dl (31-36); Mean Corpuscular Hemoglobin 30 pg (27-31); Mean Corpuscular Volume 92 fL (80-94); Mean Platelet Volume 7 um3 (7.4-10.4); Red Blood Count 3.27 10^6/ul (4.0-5.4); Red Cell Distribution Width 17 % (10.5-15); White Blood Count 5.5 10^3/ul (3.5-10.8)
[2016-12-03 06:17] LABS: BUN/Creatinine Ratio 6.4 (8-20); Calcium 8.5 mg/dL (8.6-10.3); EGFR African American 72.4 (>60); EGFR Non-African American 56.3 (>60); Potassium 4.1 mmol/L (3.5-5.0)
[2016-12-03] MEDS: Pentoxifylline CR TAB* 400 MG PO SCH ×3 (09:22→21:24)
[2016-12-03] MEDS: Vancomycin CAP* 125 MG CAP PO SCH ×4 (09:22→21:24)
[2016-12-03] MEDS: Amiodarone TAB* 200 MG PO SCH (09:22)
[2016-12-03] MEDS: Gabapentin CAP(*) 100 MG PO SCH ×3 (09:22→21:22)
[2016-12-03] MEDS: Methenamine Hippurate TAB* 1 GM TAB PO SCH ×2 (09:23→21:24)
[2016-12-03] MEDS: Nystatin CREAM* 15 GM TUBE TOPICAL SCH ×2 (09:23→21:25)
[2016-12-03] MEDS: Insulin LISPRO* 1 UNITS UNIT SUBCUT SCH ×4 (09:24→21:24)
[2016-12-03] MEDS: Omeprazole CAP* 20 MG PO SCH (09:29)
--- NOTE | 2016-12-03 16:03 | PN ---
Subjective Date of Service: 12/03/16 Interval History: Patient feeling a little nauseated but no vomiting. Had loose bm yesterday but none today. Family History: Findings - DM, HTN, Alzheimer's, colon ca, CAD Social History: Findings - Lives with his who is his SDM. Former smoker. No alcohol abuse. Currently at [facility] x 1 [facility] for rehab, planned d/ c home 12/04. Past Medical History: Findings - CAD, atrial fib, esophageal ca, IBS, DM, COPD, RA, GERD, BPH, L PATRICIA, tonsillectomy, appy, TURP Objective Active Medications: Albuterol/Ipratropium (Duoneb (Albuterol 2.5 Mg/Ipratropium 0.5 Mg)) 1 neb INH Q4H PRN PRN Reason: SOB/WHEEZING Amiodarone HCl (Cordarone Tab*) 200 mg PO DAILY [facility] Last Admin: 12/03/16 09:22 Dose: 200 mg Ascorbic Acid (Vitamin C Tab*) 500 mg PO BEDTIME [facility] Last Admin: 12/02/16 20:35 Dose: 500 mg Aspirin (Aspirin Low Dose Tab*) 81 mg PO BEDTIME [facility] Last Admin: 12/02/16 20:35 Dose: 81 mg Atorvastatin Calcium (Lipitor*) 20 mg PO BEDTIME [facility] Last Admin: 12/02/16 20:34 Dose: 20 mg Dextrose (D50w Syringe 50 Ml*) 12.5 gm IV PUSH .FOR FS < 60 - SS PRN PRN Reason: FS < 60 Enoxaparin Sodium (Lovenox(*)) 40 mg SUBCUT Q24H [facility] Last Admin: 12/02/16 17:46 Dose: 40 mg Ferrous Sulfate (Ferrous Sulfate Tab*) 325 mg PO BEDTIME [facility] Last Admin: 12/02/16 20:35 Dose: 325 mg Gabapentin (Neurontin Cap(*)) 500 mg PO TID [facility] Last Admin: 12/03/16 13:04 Dose: 500 mg Potassium Chloride/Dextrose (D5w 1/2 Ns Kcl 20 Meq 1000 Ml*) 1,000 mls @ 125 mls/hr IV PER RATE [facility] Last Admin: 12/03/16 09:21 Dose: 125 mls/hr Insulin Glargine (Lantus(*)) 24 units SUBCUT BEDTIME [facility] Last Admin: 12/02/16 20:33 Dose: 24 units Insulin Human Lispro (Humalog*) 0 units SUBCUT ACHS [facility] PRN Reason: Protocol Last Admin: 12/03/16 13:04 Dose: 2 units Levothyroxine Sodium (Synthroid Tab*) 225 mcg PO QAM@0600 [facility] Last Admin: 12/03/16 05:23 Dose: 225 mcg Lorazepam (Ativan Tab(*)) 1 mg PO TID PRN PRN Reason: ANXIETY Last Admin: 12/03/16 09:23 Dose: 1 mg Methenamine Hippurate (Hiprex Tab*) 1 gm PO BID [facility] Last Admin: 12/03/16 09:23 Dose: 1 gm Morphine Sulfate (Ms Contin(*)) 30 mg PO Q12H [facility] Last Admin: 12/03/16 05:24 Dose: 30 mg Nystatin (Nystatin Cream*) 1 applic TOPICAL BID [facility] Last Admin: 12/03/16 09:23 Dose: Not Given Omeprazole (Prilosec Cap*) 20 mg PO QAM@0730 [facility] Last Admin: 12/03/16 09:29 Dose: 20 mg Ondansetron HCl (Zofran Odt Tab*) 4 mg SL Q6H PRN PRN Reason: NAUSEA/VOMITING Last Admin: 11/30/16 16:30 Dose: 4 mg Oxycodone HCl (Roxycodone Tab*) 10 mg PO Q6H PRN PRN Reason: PAIN Last Admin: 12/01/16 23:52 Dose: 10 mg Oxymetazoline HCl (Afrin 0.05% Nasal [place]*) 1 spray BOTH NARES Q12H PRN PRN Reason: CONGESTION Pentoxifylline (Trental Cr Tab*) 400 mg PO TID [facility] Last Admin: 12/03/16 13:05 Dose: 400 mg Polyvinyl Alcohol (Polyvinyl Alcohol 1.4% Opth*) 1 drop BOTH EYES DAILY PRN PRN Reason: DRY EYE Silver Sulfadiazine (Silvadine 1%*) 1 applic TOPICAL DAILY [facility] Tamsulosin HCl (Flomax Cap*) 0.4 mg PO BEDTIME [facility] Last Admin: 12/02/16 20:35 Dose: 0.4 mg Vancomycin HCl (Vancomycin Cap*) 125 mg PO QID [facility] Last Admin: 12/03/16 13:05 Dose: 125 mg Vital Signs 0812/02/16 12/02/16 16:19 16:34 17:00 Temperature 98.0 F Pulse Rate 66 66 Respiratory 20 16 Rate Blood Pressure 129/53 141/67 (mmHg) O2 Sat by Pulse 98 95 Oximetry 12/02/16 12/02/16 12/02/16 17:45 17:46 19:45 Temperature Pulse Rate Respiratory 16 16 18 Rate Blood Pressure (mmHg) O2 Sat by Pulse Oximetry 12/02/16 12/02/16 12/02/16 19:46 20:00 20:34 Temperature Pulse Rate Respiratory 16 18 18 Rate Blood Pressure (mmHg) O2 Sat by Pulse Oximetry 12/02/16 12/03/16 12/03/16 22:34 00:10 01:25 Temperature 97.8 F Pulse Rate 80 Respiratory 16 16 14 Rate Blood Pressure 139/65 (mmHg) O2 Sat by Pulse 95 Oximetry 12/03/16 12/03/16 12/03/16 03:11 04:19 04:32 Temperature 97.6 F Pulse Rate 69 Respiratory 16 21 Rate Blood Pressure 111/39 122/68 (mmHg) O2 Sat by Pulse 94 Oximetry 12/03/16 12/03/16 12/03/16 05:24 07:24 07:28 Temperature 98.3 F Pulse Rate 71 Respiratory 16 20 20 Rate Blood Pressure 130/58 (mmHg) O2 Sat by Pulse 93 Oximetry 12/03/16 12/03/16 12/03/16 08:00 09:22 09:23 Temperature Pulse Rate Respiratory 20 18 18 Rate Blood Pressure (mmHg) O2 Sat by Pulse Oximetry 12/03/16 12/03/16 12/03/16 11:22 11:23 13:04 Temperature Pulse Rate Respiratory 18 18 18 Rate Blood Pressure (mmHg) O2 Sat by Pulse Oximetry Oxygen Devices in Use Now: None Appearance: Elderly gentleman sitting up in his chair in NAD Eyes: No Scleral Icterus Ears/Nose/Mouth/Throat: Mucous Membranes Moist Neck: NL Appearance and Movements; NL JVP, No Thyroid Enlargement, Masses Respiratory: Clear to Auscultation Cardiovascular: - - S1S2 ayanna Abdominal: NL Sounds; No Tenderness; No Distention, No Hepatosplenomegaly Lymphatic: No Cervical Adenopathy Extremities: No Edema Skin: No Rash or Ulcers Neurological: Alert and Oriented x 3 Result Diagrams: 12/03/16 05:37 12/03/16 05:37 Microbiology and Other Data: Microbiology 11/29/16 11:15 Stool Occult Blood (VERONICA) - Final Stool Assess/Plan/Problems-Billing - Patient Problems (1) Dehydration Current Visit: Yes Status: Acute Code(s): E86.0 - DEHYDRATION SNOMED Code( s): 83531303 Comment: Continue D5 1/2 NS. Appears improved. Encouraged po intake (2) C. difficile colitis Current Visit: Yes Status: Acute Comment: Tolerating oral vancomycin. Complete 14 days vancomycin as this is not his first episode. (3) Toe ulcer Current Visit: Yes Status: Acute Code(s): L97.509 - NON-PRESSURE CHRONIC ULCER OTH PRT UNSP FOOT W UNSP SEVERITY SNOMED Code(s): 360182076 Comment: Patient complaining again. Silvadene for now. Consider wound consult. (4) BPH (benign prostatic hyperplasia) Current Visit: No Status: Acute Code(s): N40.0 - BENIGN PROSTATIC HYPERPLASIA WITHOUT LOWER URINRY TRACT SYMP SNOMED Code(s): 998397446 Comment: On tamsulosin as substitute for silodosin while in the hospital. (5) COPD (chronic obstructive pulmonary disease) Current Visit: No Status: Acute Code(s): J44.9 - CHRONIC OBSTRUCTIVE PULMONARY DISEASE, UNSPECIFIED SNOMED Code(s): 86629966 Comment: Continue PRN Duoneb.Stable. (6) Atrial fibrillation Current Visit: No Status: Chronic Code(s): I48.91 - UNSPECIFIED ATRIAL FIBRILLATION SNOMED Code(s): 74796326 Comment: Continue amiodarone. Check CBC again in AM. If H/H stable will restart Xarelto . (7) Diabetes mellitus Current Visit: No Status: Chronic Code(s): E11.9 - TYPE 2 DIABETES MELLITUS WITHOUT COMPLICATIONS SNOMED Code(s): 66086629 Comment: Continue Lantus and SSI.FSD around 180 but getting D5 (8) DECONDITIONED Current Visit: Yes Status: Acute Comment: Will need STR when Dcd
[2016-12-03] MEDS ORDERED: [UNRECOGNIZED DRUG - OTHER] TOPICAL SCH (16:32)
[2016-12-03] MEDS: Enoxaparin(*) 40 MG/0.4 ML SYR SUBCUT SCH (17:37)
[2016-12-03] MEDS: Silver Sulfadiazine 1%* 20 GM TOPICAL SCH (17:43)
[2016-12-03] MEDS: Tamsulosin CAP* 0.4 MG PO SCH (21:22)
[2016-12-03] MEDS: Atorvastatin* 20 MG TAB PO SCH (21:22)
[2016-12-03] MEDS: Ascorbic Acid TAB* 500 MG PO SCH (21:22)
[2016-12-03] MEDS: Ferrous Sulfate TAB* 325 MG PO SCH (21:23)
[2016-12-03] MEDS: Insulin GLARGINE(*) 1 UNITS UNIT SUBCUT SCH (21:24)
[2016-12-03] MEDS: Aspirin Low Dose CHEW TAB* 81 MG PO SCH (21:25)
[2016-12-04] MEDS: D5W 1/2 NS KCl 20 Meq 1000 ML* 1,000 ML IV SCH ×3 (02:08→20:50)
[2016-12-04] MEDS: Levothyroxine TAB* 75 MCG TAB PO SCH (05:35)
[2016-12-04] MEDS: Morphine TAB Extended Release (*) 30 MG TAB.ER PO SCH ×2 (05:35→17:29)
[2016-12-04 06:30] LABS: Hematocrit 31 % (42-52); Hemoglobin 10.3 g/dl (14.0-18.0); Mean Corpuscular HGB Conc 33 g/dl (31-36); Mean Corpuscular Hemoglobin 30 pg (27-31); Mean Corpuscular Volume 91 fL (80-94); Mean Platelet Volume 7 um3 (7.4-10.4); Red Blood Count 3.42 10^6/ul (4.0-5.4); Red Cell Distribution Width 17 % (10.5-15); White Blood Count 5.9 10^3/ul (3.5-10.8)
[2016-12-04] MEDS: Insulin LISPRO* 1 UNITS UNIT SUBCUT SCH ×4 (08:50→20:43)
[2016-12-04] MEDS: Amiodarone TAB* 200 MG PO SCH (08:51)
[2016-12-04] MEDS: Gabapentin CAP(*) 100 MG PO SCH ×3 (08:51→20:42)
[2016-12-04] MEDS: Pentoxifylline CR TAB* 400 MG PO SCH ×3 (08:52→20:42)
[2016-12-04] MEDS: Methenamine Hippurate TAB* 1 GM TAB PO SCH ×2 (08:52→20:41)
[2016-12-04] MEDS: Vancomycin CAP* 125 MG CAP PO SCH ×4 (08:52→20:42)
[2016-12-04] MEDS: Nystatin CREAM* 15 GM TUBE TOPICAL SCH ×2 (08:53→20:44)
[2016-12-04] MEDS: Silver Sulfadiazine 1%* 20 GM TOPICAL SCH (08:54)
[2016-12-04] MEDS: Omeprazole CAP* 20 MG PO SCH (09:00)
--- NOTE | 2016-12-04 14:33 | PN ---
Subjective Date of Service: 12/04/16 Interval History: Patient still without BM last 2 days. Admits he feels better but feels not well enough to leave. Family History: Findings - DM, HTN, Alzheimer's, colon ca, CAD Social History: Findings - Lives with his who is his SDM. Former smoker. No alcohol abuse. Currently at [facility] x 1 [facility] for rehab, planned d/ c home 12/04. Past Medical History: Findings - CAD, atrial fib, esophageal ca, IBS, DM, COPD, RA, GERD, BPH, L PATRICIA, tonsillectomy, appy, TURP Objective Active Medications: Albuterol/Ipratropium (Duoneb (Albuterol 2.5 Mg/Ipratropium 0.5 Mg)) 1 neb INH Q4H PRN PRN Reason: SOB/WHEEZING Amiodarone HCl (Cordarone Tab*) 200 mg PO DAILY [facility] Last Admin: 12/04/16 08:51 Dose: 200 mg Ascorbic Acid (Vitamin C Tab*) 500 mg PO BEDTIME [facility] Last Admin: 12/03/16 21:22 Dose: 500 mg Aspirin (Aspirin Low Dose Tab*) 81 mg PO BEDTIME [facility] Last Admin: 12/03/16 21:25 Dose: 81 mg Atorvastatin Calcium (Lipitor*) 20 mg PO BEDTIME [facility] Last Admin: 12/03/16 21:22 Dose: 20 mg Dextrose (D50w Syringe 50 Ml*) 12.5 gm IV PUSH .FOR FS < 60 - SS PRN PRN Reason: FS < 60 Ferrous Sulfate (Ferrous Sulfate Tab*) 325 mg PO BEDTIME [facility] Last Admin: 12/03/16 21:23 Dose: 325 mg Gabapentin (Neurontin Cap(*)) 500 mg PO TID [facility] Last Admin: 12/04/16 13:03 Dose: 500 mg Potassium Chloride/Dextrose (D5w 1/2 Ns Kcl 20 Meq 1000 Ml*) 1,000 mls @ 125 mls/hr IV PER RATE [facility] Last Admin: 12/04/16 10:20 Dose: 125 mls/hr Insulin Glargine (Lantus(*)) 24 units SUBCUT BEDTIME [facility] Last Admin: 12/03/16 21:24 Dose: 24 units Insulin Human Lispro (Humalog*) 0 units SUBCUT ACHS [facility] PRN Reason: Protocol Last Admin: 12/04/16 13:03 Dose: 6 units Levothyroxine Sodium (Synthroid Tab*) 225 mcg PO QAM@0600 [facility] Last Admin: 12/04/16 05:35 Dose: 225 mcg Lorazepam (Ativan Tab(*)) 1 mg PO TID PRN PRN Reason: ANXIETY Last Admin: 12/03/16 17:37 Dose: 1 mg Methenamine Hippurate (Hiprex Tab*) 1 gm PO BID [facility] Last Admin: 12/04/16 08:52 Dose: 1 gm Morphine Sulfate (Ms Contin(*)) 30 mg PO Q12H [facility] Last Admin: 12/04/16 05:35 Dose: 30 mg Nystatin (Nystatin Cream*) 1 applic TOPICAL BID [facility] Last Admin: 12/04/16 08:53 Dose: Not Given Omeprazole (Prilosec Cap*) 20 mg PO QAM@0730 [facility] Last Admin: 12/04/16 09:00 Dose: 20 mg Ondansetron HCl (Zofran Odt Tab*) 4 mg SL Q6H PRN PRN Reason: NAUSEA/VOMITING Last Admin: 11/30/16 16:30 Dose: 4 mg Oxycodone HCl (Roxycodone Tab*) 10 mg PO Q6H PRN PRN Reason: PAIN Last Admin: 12/01/16 23:52 Dose: 10 mg Oxymetazoline HCl (Afrin 0.05% Nasal [place]*) 1 spray BOTH NARES Q12H PRN PRN Reason: CONGESTION Pentoxifylline (Trental Cr Tab*) 400 mg PO TID [facility] Last Admin: 12/04/16 13:03 Dose: 400 mg Polyvinyl Alcohol (Polyvinyl Alcohol 1.4% Opth*) 1 drop BOTH EYES DAILY PRN PRN Reason: DRY EYE Rivaroxaban (Xarelto(*)) 20 mg PO 2100 [facility] Silver Sulfadiazine (Silvadine 1%*) 1 applic TOPICAL DAILY [facility] Last Admin: 12/04/16 08:54 Dose: 1 applic Tamsulosin HCl (Flomax Cap*) 0.4 mg PO BEDTIME [facility] Last Admin: 12/03/16 21:22 Dose: 0.4 mg Vancomycin HCl (Vancomycin Cap*) 125 mg PO QID [facility] Last Admin: 12/04/16 13:03 Dose: 125 mg Vital Signs 12/03/16 12/03/1612/03/17 15:04 15:42 17:36 Temperature 97.5 F Pulse Rate 63 Respiratory 16 17 16 Rate Blood Pressure 145/65 (mmHg) O2 Sat by Pulse 96 Oximetry 12/03/16 12/03/16 12/03/16 17:37 19:36 20:00 Temperature Pulse Rate Respiratory 16 18 18 Rate Blood Pressure (mmHg) O2 Sat by Pulse Oximetry 12/03/16 12/03/16 12/03/16 20:57 21:22 23:18 Temperature 97.4 F 98.2 F Pulse Rate 66 63 Respiratory 18 18 16 Rate Blood Pressure 152/64 143/50 (mmHg) O2 Sat by Pulse 94 94 Oximetry 12/03/16 12/04/16 12/04/16 23:22 03:59 05:35 Temperature 98.4 F Pulse Rate 59 Respiratory 18 16 18 Rate Blood Pressure 133/63 (mmHg) O2 Sat by Pulse 96 Oximetry 12/04/16 12/04/16 12/04/16 07:35 08:51 10:51 Temperature Pulse Rate Respiratory 18 18 16 Rate Blood Pressure (mmHg) O2 Sat by Pulse Oximetry 12/04/16 12/04/16 12/04/16 11:21 11:53 13:03 Temperature 98.0 F Pulse Rate 61 62 Respiratory 22 16 16 Rate Blood Pressure 138/59 (mmHg) O2 Sat by Pulse 95 96 Oximetry Oxygen Devices in Use Now: None Appearance: Elderly gentleman sitting up in his chair in NAD Eyes: No Scleral Icterus Ears/Nose/Mouth/Throat: Mucous Membranes Moist Neck: No Thyroid Enlargement, Masses Respiratory: Clear to Auscultation Cardiovascular: - - S1S2 ayanna Abdominal: NL Sounds; No Tenderness; No Distention, No Hepatosplenomegaly Lymphatic: No Cervical Adenopathy Extremities: No Clubbing, Cyanosis, - - area on left foot between left 4th and fifth digit with some erythema, slight excoriated. No discharge Skin: No Rash or Ulcers Neurological: Alert and Oriented x 3 Result Diagrams: 12/04/16 05:48 12/03/16 05:37 Microbiology and Other Data: Microbiology 11/29/16 11:15 Stool Occult Blood (VERONICA) - Final Stool Assess/Plan/Problems-Billing Assessment: - Patient Problems (1) Dehydration Current Visit: Yes Status: Acute Code(s): E86.0 - DEHYDRATION SNOMED Code( s): 59932840 Comment: Doing better with po intake. DC IVF (2) C. difficile colitis Current Visit: Yes Status: Acute Comment: Tolerating oral vancomycin. Complete 14 days vancomycin as this is not his first episode. (3) Toe ulcer Current Visit: Yes Status: Acute Code(s): L97.509 - NON-PRESSURE CHRONIC ULCER OTH PRT UNSP FOOT W UNSP SEVERITY SNOMED Code(s): 011197579 Comment: Silvadene for now. Wound consult unnecessary (4) BPH (benign prostatic hyperplasia) Current Visit: No Status: Acute Code(s): N40.0 - BENIGN PROSTATIC HYPERPLASIA WITHOUT LOWER URINRY TRACT SYMP SNOMED Code(s): 685741426 Comment: On tamsulosin as substitute for silodosin while in the hospital. (5) COPD (chronic obstructive pulmonary disease) Current Visit: No Status: Acute Code(s): J44.9 - CHRONIC OBSTRUCTIVE PULMONARY DISEASE, UNSPECIFIED SNOMED Code(s): 88110194 Comment: Continue PRN Duoneb.Stable. (6) Atrial fibrillation Current Visit: No Status: Chronic Code(s): I48.91 - UNSPECIFIED ATRIAL FIBRILLATION SNOMED Code(s): 76980747 Comment: Continue amiodarone. H/H higher. Restart xarelto (7) Diabetes mellitus Current Visit: No Status: Chronic Code(s): E11.9 - TYPE 2 DIABETES MELLITUS WITHOUT COMPLICATIONS SNOMED Code(s): 84663212 Comment: Continue Lantus and SSI. (8) DECONDITIONED Current Visit: Yes Status: Acute Comment: Will need STR when Dcd within 24 - 48 hours
[2016-12-04] MEDS: LORazepam TAB(*) 1 MG PO PRN (16:26)
[2016-12-04] MEDS: Aspirin Low Dose CHEW TAB* 81 MG PO SCH (20:39)
[2016-12-04] MEDS: Tamsulosin CAP* 0.4 MG PO SCH (20:40)
[2016-12-04] MEDS: Ascorbic Acid TAB* 500 MG PO SCH (20:40)
[2016-12-04] MEDS: Atorvastatin* 20 MG TAB PO SCH (20:40)
[2016-12-04] MEDS: Ferrous Sulfate TAB* 325 MG PO SCH (20:41)
[2016-12-04] MEDS: Insulin GLARGINE(*) 1 UNITS UNIT SUBCUT SCH (20:43)
[2016-12-04] MEDS ORDERED: Rivaroxaban TAB(*) 10 MG PO SCH (21:00)
[2016-12-04] MEDS: Nystatin TOP POWDER* 15 GM BTL TOPICAL SCH (23:35)
[2016-12-05] MEDS: LORazepam TAB(*) 1 MG PO PRN ×2 (03:08→08:52)
[2016-12-05] MEDS: D5W 1/2 NS KCl 20 Meq 1000 ML* 1,000 ML IV SCH (04:33)
[2016-12-05] MEDS: Levothyroxine TAB* 75 MCG TAB PO SCH (05:58)
[2016-12-05] MEDS: Morphine TAB Extended Release (*) 30 MG TAB.ER PO SCH ×2 (05:59→17:40)
[2016-12-05] MEDS: Gabapentin CAP(*) 100 MG PO SCH ×3 (08:13→22:19)
[2016-12-05] MEDS: Omeprazole CAP* 20 MG PO SCH (08:13)
[2016-12-05] MEDS: Pentoxifylline CR TAB* 400 MG PO SCH ×3 (08:14→22:21)
[2016-12-05] MEDS: Vancomycin CAP* 125 MG CAP PO SCH ×4 (08:14→22:28)
[2016-12-05] MEDS: Methenamine Hippurate TAB* 1 GM TAB PO SCH ×2 (08:14→22:21)
[2016-12-05] MEDS: Amiodarone TAB* 200 MG PO SCH (08:15)
[2016-12-05] MEDS: Insulin LISPRO* 1 UNITS UNIT SUBCUT SCH ×4 (08:53→22:00)
[2016-12-05] MEDS: Silver Sulfadiazine 1%* 20 GM TOPICAL SCH (08:54)
[2016-12-05] MEDS: Nystatin TOP POWDER* 15 GM BTL TOPICAL SCH ×2 (08:54→22:31)
--- NOTE | 2016-12-05 15:02 | PN ---
Subjective Date of Service: 12/05/16 Interval History: Feeling weak but better says he will be ready to go tomorrow. Family History: Findings - DM, HTN, Alzheimer's, colon ca, CAD Social History: Findings - Lives with his who is his SDM. Former smoker. No alcohol abuse. Currently at [facility] x 1 [facility] for rehab, planned d/ c home 12/04. Past Medical History: Findings - CAD, atrial fib, esophageal ca, IBS, DM, COPD, RA, GERD, BPH, L PATRICIA, tonsillectomy, appy, TURP Objective Active Medications: Albuterol/Ipratropium (Duoneb (Albuterol 2.5 Mg/Ipratropium 0.5 Mg)) 1 neb INH Q4H PRN PRN Reason: SOB/WHEEZING Amiodarone HCl (Cordarone Tab*) 200 mg PO DAILY [facility] Last Admin: 12/05/16 08:15 Dose: 200 mg Ascorbic Acid (Vitamin C Tab*) 500 mg PO BEDTIME [facility] Last Admin: 12/04/16 20:40 Dose: 500 mg Aspirin (Aspirin Low Dose Tab*) 81 mg PO BEDTIME [facility] Last Admin: 12/04/16 20:39 Dose: 81 mg Atorvastatin Calcium (Lipitor*) 20 mg PO BEDTIME [facility] Last Admin: 12/04/16 20:40 Dose: 20 mg Dextrose (D50w Syringe 50 Ml*) 12.5 gm IV PUSH .FOR FS < 60 - SS PRN PRN Reason: FS < 60 Ferrous Sulfate (Ferrous Sulfate Tab*) 325 mg PO BEDTIME [facility] Last Admin: 12/04/16 20:41 Dose: 325 mg Gabapentin (Neurontin Cap(*)) 500 mg PO TID [facility] Last Admin: 12/05/16 12:48 Dose: 500 mg Insulin Glargine (Lantus(*)) 24 units SUBCUT BEDTIME [facility] Last Admin: 12/04/16 20:43 Dose: 24 units Insulin Human Lispro (Humalog*) 0 units SUBCUT ACHS [facility] PRN Reason: Protocol Last Admin: 12/05/16 12:47 Dose: 4 units Levothyroxine Sodium (Synthroid Tab*) 225 mcg PO QAM@0600 [facility] Last Admin: 12/05/16 05:58 Dose: 225 mcg Lorazepam (Ativan Tab(*)) 1 mg PO TID PRN PRN Reason: ANXIETY Last Admin: 12/05/16 08:52 Dose: 1 mg Methenamine Hippurate (Hiprex Tab*) 1 gm PO BID [facility] Last Admin: 12/05/16 08:14 Dose: 1 gm Morphine Sulfate (Ms Contin(*)) 30 mg PO Q12H [facility] Last Admin: 12/05/16 05:59 Dose: 30 mg Nystatin (Nystatin Top Powder*) 1 applic TOPICAL BID [facility] Last Admin: 12/05/16 08:54 Dose: 1 applic Omeprazole (Prilosec Cap*) 20 mg PO QAM@0730 [facility] Last Admin: 12/05/16 08:13 Dose: 20 mg Ondansetron HCl (Zofran Odt Tab*) 4 mg SL Q6H PRN PRN Reason: NAUSEA/VOMITING Last Admin: 11/30/16 16:30 Dose: 4 mg Oxycodone HCl (Roxycodone Tab*) 10 mg PO Q6H PRN PRN Reason: PAIN Last Admin: 12/01/16 23:52 Dose: 10 mg Oxymetazoline HCl (Afrin 0.05% Nasal [place]*) 1 spray BOTH NARES Q12H PRN PRN Reason: CONGESTION Pentoxifylline (Trental Cr Tab*) 400 mg PO TID ON [facility] Last Admin: 12/05/16 12:48 Dose: 400 mg Polyvinyl Alcohol (Polyvinyl Alcohol 1.4% Opth*) 1 drop BOTH EYES DAILY PRN PRN Reason: DRY EYE Rivaroxaban (Xarelto (*)) 20 mg PO 2100 [facility] Silver Sulfadiazine (Silvadine 1%*) 1 applic TOPICAL DAILY [facility] Last Admin: 12/05/16 08:54 Dose: 1 applic Tamsulosin HCl (Flomax Cap*) 0.4 mg PO BEDTIME ON [facility] Last Admin: 12/04/16 20:40 Dose: 0.4 mg Vancomycin HCl (Vancomycin Cap*) 125 mg PO QID ON [facility] Last Admin: 12/05/16 12:49 Dose: 125 mg Vital Signs 12/04/16 12/04/16 12/04/16 15:03 16:26 16:29 Temperature 97.8 F Pulse Rate 61 Respiratory 18 18 16 Rate Blood Pressure 146/61 (mmHg) O2 Sat by Pulse 97 Oximetry 12/04/16 12/04/16 12/04/16 17:29 18:26 20:00 Temperature Pulse Rate Respiratory 16 20 20 Rate Blood Pressure (mmHg) O2 Sat by Pulse Oximetry 12/04/16 12/04/16 12/04/16 20:15 20:42 22:42 Temperature 98.0 F Pulse Rate 62 Respiratory 20 20 18 Rate Blood Pressure 149/68 (mmHg) O2 Sat by Pulse 96 Oximetry 12/05/16 12/05/16 12/05/16 00:03 03:08 04:10 Temperature 97.6 F Pulse Rate 58 54 Respiratory 18 18 18 Rate Blood Pressure 130/71 133/42 (mmHg) O2 Sat by Pulse 95 97 Oximetry 12/05/16 12/05/16 12/05/16 04:11 05:08 05:59 Temperature 98.1 F Pulse Rate Respiratory 18 18 Rate Blood Pressure (mmHg) O2 Sat by Pulse Oximetry 12/05/16 12/05/16 12/05/16 07:49 08:13 08:52 Temperature 97.6 F Pulse Rate 57 Respiratory 16 16 18 Rate Blood Pressure 146/61 (mmHg) O2 Sat by Pulse 96 Oximetry 12/05/16 12:48 Temperature Pulse Rate Respiratory 18 Rate Blood Pressure (mmHg) O2 Sat by Pulse Oximetry Oxygen Devices in Use Now: None Appearance: Elderly man sitting up in bed in NAD Eyes: No Scleral Icterus Ears/Nose/Mouth/Throat: Mucous Membranes Moist Neck: No Thyroid Enlargement, Masses Respiratory: Clear to Auscultation Cardiovascular: - - S1S2 ayanna Abdominal: NL Sounds; No Tenderness; No Distention, No Hepatosplenomegaly Lymphatic: No Cervical Adenopathy Extremities: No Clubbing, Cyanosis Skin: No Rash or Ulcers Neurological: Alert and Oriented x 3 Result Diagrams: 12/04/16 05:48 12/03/16 05:37 Microbiology and Other Data: Microbiology 11/29/16 11:15 Stool Occult Blood (VERONICA) - Final Stool Assess/Plan/Problems-Billing Assessment: - Patient Problems (1) Dehydration Current Visit: Yes Status: Acute Code(s): E86.0 - DEHYDRATION SNOMED Code( s): 60499966 Comment: Eating all of his meals and off IVF. (2) C. difficile colitis Current Visit: Yes Status: Acute Comment: Tolerating oral vancomycin. He will need to complete 14 days of vancomycin as this is not his first episode. (3) Toe ulcer Current Visit: Yes Status: Acute Code(s): L97.509 - NON-PRESSURE CHRONIC ULCER OTH PRT UNSP FOOT W UNSP SEVERITY SNOMED Code(s): 028333802 Comment: [facility] for now. Wound consult unnecessary (4) BPH (benign prostatic hyperplasia) Current Visit: No Status: Acute Code(s): N40.0 - BENIGN PROSTATIC HYPERPLASIA WITHOUT LOWER URINRY TRACT SYMP SNOMED Code(s): 467292048 Comment: On tamsulosin as substitute for silodosin while in the hospital. (5) COPD (chronic obstructive pulmonary disease) Current Visit: No Status: Acute Code(s): J44.9 - CHRONIC OBSTRUCTIVE PULMONARY DISEASE, UNSPECIFIED SNOMED Code(s): 36391457 Comment: Continue PRN Duoneb.Stable. (6) Atrial fibrillation Current Visit: No Status: Chronic Code(s): I48.91 - UNSPECIFIED ATRIAL FIBRILLATION SNOMED Code(s): 98544625 Comment: Continue amiodarone and xarelto (7) Diabetes mellitus Current Visit: No Status: Chronic Code(s): E11.9 - TYPE 2 DIABETES MELLITUS WITHOUT COMPLICATIONS SNOMED Code(s): 36779119 Comment: Continue Lantus and SSI. (8) DECONDITIONED Current Visit: Yes Status: Acute Comment: Will need STR when Dcd within 24 - 48 hours
[2016-12-05] MEDS ORDERED: Rivaroxaban TAB(*) 20 MG TAB PO SCH (21:00)
[2016-12-05] MEDS ORDERED: Polyethylene Glycol 3350* 17 GM PACKET PO ONE (21:25)
[2016-12-05] MEDS ORDERED: Polyethylene Glycol 3350* 17 GM PACKET ONE (21:55)
[2016-12-05] MEDS: Ferrous Sulfate TAB* 325 MG PO SCH (22:21)
[2016-12-05] MEDS: Tamsulosin CAP* 0.4 MG PO SCH (22:21)
[2016-12-05] MEDS: Atorvastatin* 20 MG TAB PO SCH (22:21)
[2016-12-05] MEDS: Ascorbic Acid TAB* 500 MG PO SCH (22:21)
[2016-12-05] MEDS: Insulin GLARGINE(*) 1 UNITS UNIT SUBCUT SCH (22:22)
[2016-12-05] MEDS: Aspirin Low Dose CHEW TAB* 81 MG PO SCH (22:22)
[2016-12-06] MEDS: Morphine TAB Extended Release (*) 30 MG TAB.ER PO SCH (06:14)
[2016-12-06] MEDS: Levothyroxine TAB* 75 MCG TAB PO SCH (06:15)
[2016-12-06] MEDS: Insulin LISPRO* 1 UNITS UNIT SUBCUT SCH ×2 (08:58→12:52)
[2016-12-06] MEDS: Gabapentin CAP(*) 100 MG PO SCH ×2 (09:13→14:02)
[2016-12-06] MEDS: LORazepam TAB(*) 1 MG PO PRN (09:14)
[2016-12-06] MEDS: Methenamine Hippurate TAB* 1 GM TAB PO SCH (09:14)
[2016-12-06] MEDS: Pentoxifylline CR TAB* 400 MG PO SCH ×2 (09:14→14:02)
[2016-12-06] MEDS: Silver Sulfadiazine 1%* 20 GM TOPICAL SCH (09:14)
[2016-12-06] MEDS: Vancomycin CAP* 125 MG CAP PO SCH ×2 (09:14→12:52)
[2016-12-06] MEDS: Amiodarone TAB* 200 MG PO SCH (09:14)
[2016-12-06] MEDS: Nystatin TOP POWDER* 15 GM BTL TOPICAL SCH (09:14)
[2016-12-06] MEDS: Omeprazole CAP* 20 MG PO SCH (09:23)
--- NOTE | 2016-12-06 16:18 | DS ---
CC: Dr. Cha * DISCHARGE SUMMARY: DATE OF ADMISSION: 11/29/16 DATE OF DISCHARGE: 12/06/16 ADMISSION DIAGNOSES: 1. Dehydration. 2. Clostridium difficile colitis infection. SECONDARY DIAGNOSES: 1. Atrial fibrillation. 2. Chronic obstructive pulmonary disease. 3. Benign prostatic hyperplasia. 4. Diabetes mellitus. DISCHARGE DIAGNOSES: 1. Dehydration. 2. Clostridium difficile colitis infection. 3. Atrial fibrillation. 4. Chronic obstructive pulmonary disease. 5. Benign prostatic hypertrophy. 6. Diabetes mellitus. HOSPITAL COURSE: The patient is a 76-year-old gentleman, who presented to the [facility] with a chief complaint of diarrhea, frequent bowel movements and likely dehydration. Please see H and P for further details. The patient was admitted and rehydrated and he was found to be positive for C. difficile. It was recurrent, so he was started on vancomycin and responded well. By the date of discharge, he had actually been somewhat constipated and not had a bowel movement for 3 days. He will be on the vancomycin 125 every 6 hours for at least 14 days. The patient also complained of weakness, was eating well, did not appear dehydrated by the date of discharge. He also complained of some foot ulcers and he did have some minor ones on his toes and he was treated with Silvadene. He would like a wound care consult, but apparently there was somebody who comes around at [facility] to take care of this and he is looking forward to see them. PHYSICAL EXAMINATION: On the date of discharge, well-developed, well-nourished , gentleman sitting up in bed in no acute distress. Vital Signs: Respiratory 18 breaths per minute, heart rate 60 beats per minute, pulse oxygen 95%, blood pressure is 147/70. HEENT: Normocephalic, atraumatic. Pupils equal, round, and reactive to light. Moist mucous membranes. Neck: Supple. No JVD, bruits , palpable thyroid, or lymphadenopathy. Chest: Clear to auscultation and percussion bilaterally. Cardiovascular Exam: S1 and S2 appreciated. Abdominal Exam: Positive bowel sounds in all 4 quadrants. Soft, nontender, and nondistended. Extremities: No cyanosis, clubbing, or edema. He does have some tiny cracks in his skin between the third and fourth, and fourth and fifth digits. Between the fourth and fifth digit, underneath the fifth digit there is an ulcer, but there is no discharge, no erythema, no tenderness. Neuro: He is alert and oriented x3. He moves all extremities. STUDIES DONE WHILE IN THE HOSPITAL: Abdominal and pelvic CT on 11/29/16, impression: No evidence for acute findings as a cause of the patient's abdominal pain seen, bilateral renal cortical scarring unchanged, status post cholecystectomy, multiple hepatic cysts unchanged, urinary bladder diverticulum unchanged, compression fracture at L1-L4 vertebra unchanged. DISCHARGE MEDICATIONS: Are as follows: 1. Nystatin cream applied topically twice daily. 2. Lactic acid 12% topical b.i.d. as needed. 3. DuoDERM topical on Fridays. 4. Cyclosporin ophthalmologic 1 drop both eyes every 12 hours. 5. Refresh Optive 1 drop both eyes daily as needed. 6. MiraLAX 17 g daily as needed. 7. Lorazepam 1 mg 3 times a day as needed. 8. Combivent 1 puff inhaled 4 times a day as needed. 9. Afrin nasal spray one spray both nares every 12 hours as needed. 10. Trental 400 mg 3 times a day. 11. Gabapentin 500 mg 3 times a day. 12. OCuSOFT eyelid sack cleaner one pad topically every 12 hours as needed. 13. MS Contin 30 mg p.o. q.12 hours. 14. Hiprex 1 g twice daily. 15. Xarelto 20 mg at bedtime. 16. Amiodarone 200 mg daily. 17. Ascorbic acid 500 mg at bedtime. 18. Testosterone cypionate 200 mg IM every 10 days. 19. Senokot 2 tabs at bedtime as needed. 20. Rapaflo 8 mg at bedtime. 21. Omeprazole 20 mg in the morning. 22. Lipitor 20 mg at bedtime. 23. Synthroid 0.1875 mg in the morning. 24. Lantus insulin 34 units subcu at bedtime. 25. Furosemide 20 mg daily. 26. Ferrous sulfate 325 mg at bedtime. 27. Aspirin 81 mg daily. 28. Vancomycin 125 mg 4 times a day for the next 7 days. 29. Silvadene 1 application topically daily between third and fourth, and fourth and fifth digits of the left foot. 30. Oxycodone 10 mg every 6 hours as needed. 31. Ondansetron 4 mg sublingual q.6 hours as needed for nausea. DISCHARGE PLAN: The patient discharged to [facility] to complete his rehab. The patient will return to the ED if symptoms recur. TIME SPENT: Over 45 minutes was spent on this discharge, more than 40 minutes of which was spent in direct [id number] contact with the patient in evaluation , physical exam, counseling, and coordination of care. [id number]/[facility] #: [id number] MTDD
[2016-12-06 16:55] VITALS: BP 130/62
== END 2016-12-06 17:00 | disposition home or self-care (01) | DRG 373 ==
LOC: ED 10:53 → MEDTELE 16:11 → OBSVTOIN 11-30 09:00 → MED 12-02 07:06
PROVIDERS: ADMIT Internal Medicine; ATTEND Internal Medicine
DX: A04.7 Enterocolitis due to Clostridium difficile (principal); E11.621 Type 2 diabetes mellitus with foot ulcer; E86.0 Dehydration; I48.91 Unspecified atrial fibrillation; J44.9 Chronic obstructive pulmonary disease, unspecified; L97.509 Non-pressure chronic ulcer of other part of unspecified foot with unspecified severity; I25.10 Atherosclerotic heart disease of native coronary artery without angina pectoris; K21.9 Gastro-esophageal reflux disease without esophagitis; N40.0 Benign prostatic hyperplasia without lower urinary tract symptoms; Z87.891 Personal history of nicotine dependence; K58.9 Irritable bowel syndrome, unspecified; M06.9 Rheumatoid arthritis, unspecified; Z96.642 Presence of left artificial hip joint; Z91.018 Allergy to other foods; Z88.8 Allergy status to other drugs, medicaments and biological substances; Z79.82 Long term (current) use of aspirin; Z79.4 Long term (current) use of insulin; Z79.891 Long term (current) use of opiate analgesic; Z79.899 Other long term (current) drug therapy
CPT/HCPCS: 36415; 74177; 80048; 80053; 81003; 82272; 83605; 83690; 83735; 84443; 85025; 85610; 85730; 86140; 86850; 86900; 86901; 87493; 93005; A9270-GY; G0378; G8978-GP-CK; G8979-GP-CI; J1650; Q9967

== ENCOUNTER 2017-01-18 05:41 | Inpatient (IN) | payer MEDICARE ==
[2017-01-18] MEDS ORDERED: Tetanus-Diptheria Toxoids* 0.5 ML SYRINGE IM ONE (06:14)
[2017-01-18 07:45] LABS: Hematocrit 36 % (42-52); Hemoglobin 11.4 g/dl (14.0-18.0); Mean Corpuscular HGB Conc 32 g/dl (31-36); Mean Corpuscular Hemoglobin 27 pg (27-31); Mean Corpuscular Volume 85 fL (80-94); Mean Platelet Volume 7 um3 (7.4-10.4); Red Blood Count 4.23 10^6/ul (4.0-5.4); Red Cell Distribution Width 16 % (10.5-15); White Blood Count 12.3 10^3/ul (3.5-10.8)
[2017-01-18 08:01] LABS: Albumin 3.9 g/dL (3.2-5.2); BUN/Creatinine Ratio 13.5 (8-20); Calcium 9.1 mg/dL (8.6-10.3); EGFR African American 53.3 (>60); EGFR Non-African American 41.5 (>60); Globulin 2.7 g/dL (2-4); Total Bilirubin 0.3 mg/dL (0.2-1.0); Total Protein 6.6 g/dL (6.4-8.9)
[2017-01-18 08:04] LABS: Troponin I 0.01 ng/mL (<0.04)
--- NOTE | 2017-01-18 08:14 | RAD ---
Indication: Fall, head injury. CT of the brain was performed without IV contrast. Ventricular structures are midline. No midline shift is noted. The extra-axial spaces are unremarkable. There is no evidence of intracranial mass or hemorrhage. No other high or low density lesions are identified. Scalp hematoma is noted over the right frontal area. No evidence of underlying skull fracture is noted. There is a fracture of the right inferior orbital floor better delineated on the CT orbits and facial bones. IMPRESSION: No intracranial mass or hemorrhage is noted. Scalp hematoma. Fracture floor of the right orbit.
--- NOTE | 2017-01-18 08:31 | RAD ---
indication: Pain at the right side of the face and neck after a fall from a seated height. COMPARISON: None A CT scan of the maxillofacial bones and c-spine was performed without intravenous contrast enhancement. Contiguous axial sections were obtained from the lung apices through the vertex of the skull. FACIAL BONES: Bones: Depicted best in the coronal plane view (image 33) there is fracture along the lateral inferior orbital wall with herniation of orbital fat into the maxillary sinus. No other acute fracture or dislocation is identified in the facial bones. Depicted best on the sagittal plane images, there is degenerative change of the bilateral temporomandibular joints including sclerotic remodeling of the mandibular condyles. Orbits: There is soft tissue swelling surrounding the right orbit. There is no infiltration of the post septal orbital fat. The globes are round. The optic nerves are symmetric. The muscles adjacent to the orbital floor fracture, the right inferior rectus and inferior oblique muscles, appear to be appropriately positioned and not herniating through the fracture. Paranasal Sinuses: The paranasal sinuses are clear. C-SPINE: On the sagittal view images there is reversal of the normal cervical lordosis. Multilevel degenerative changes include loss of intervertebral disc height and marginal osteophyte formation. The degenerative changes are most severe at C4-C6 where there is a more severe degree of uncovertebral hypertrophy. The vertebral bodies and facet joints appear to be appropriately aligned. There is no definite acute fracture or dislocation. There is degenerative change at the atlantodental joint, but the interval is not pathologically widened and the dens is intact. There is no prevertebral soft tissue swelling. There is no hyperdense material in the cervical canal to indicate hemorrhage. The visualized musculature and soft tissues are normal. There is coarse calcification at the bilateral carotid bulbs. There is no gross lymphadenopathy visualized. The visualized portion of the lung apices are clear. IMPRESSION: 1. Fracture of the right inferior orbital wall with herniation of fat and hematoma. The globe and ocular muscles appear to be appropriately positioned. If physical examination indicates entrapment of either extraocular muscles or nerves than more specific characterization could be made with MRI of the orbits. 2. Degenerative changes of the cervical spine as described above without evidence of acute fracture or dislocation.
--- NOTE | 2017-01-18 09:43 | RAD ---
HISTORY: Fall, right rib pain COMPARISONS: None VIEWS: 3, Frontal and oblique views of the right hemithorax. FINDINGS: There is no displaced rib fracture or pneumothorax. The visualized lungs are clear. IMPRESSION: NO DISPLACED RIB FRACTURE OR PNEUMOTHORAX.
--- NOTE | 2017-01-18 09:43 | RAD ---
HISTORY: Fall COMPARISONS: January 11, 2017 VIEWS: 1: frontal AP view of the chest at 9:17 AM FINDINGS: LINES AND TUBES: None. CARDIOMEDIASTINAL SILHOUETTE: The cardiomediastinal silhouette is stable. PLEURA: The costophrenic angles are sharp. No pleural abnormalities are noted. LUNG PARENCHYMA: There is stable pleuroparenchymal scarring of the left lung base ABDOMEN: The upper abdomen is clear. There is no subphrenic gas. BONES AND SOFT TISSUES: No bone or soft tissue abnormalities are noted. IMPRESSION: NO ACTIVE CARDIOPULMONARY DISEASE.
--- NOTE | 2017-01-18 09:54 | RAD ---
INDICATION: Trauma. TECHNIQUE: An AP view of the pelvis was obtained. FINDINGS: The left hip prosthesis is anatomically aligned in the AP projection. The visualized bones are otherwise intact and appropriately aligned. IMPRESSION: Anatomic alignment of a left hip prosthesis in the AP projection without radiographically apparent fracture or dislocation.
[2017-01-18] MEDS ORDERED: HYDROcodone/ACETAMIN 5-325 MG* 1 TAB PO ONE (10:34)
[2017-01-18] MEDS ORDERED: Tetan/Diph/Pertus SYR(Tdap)* 0.5 ML SYR(BOOSTRIX) use SYR IM ONE (10:35)
[2017-01-18] MEDS ORDERED: Ondansetron ODT TAB* 4 MG SL PRN (11:48)
[2017-01-18] MEDS ORDERED: Oxymetazoline 0.05% NASAL SPR* 15 ML BTL BOTH NARES PRN (11:48)
[2017-01-18] MEDS ORDERED: Dextrose 50% Syringe 50 ML* 25 GM/50 ML SYRINGE IV PUSH PRN (12:02)
[2017-01-18] MEDS ORDERED: Albuterol HFA INHALER* 8 gm MDI INH PRN (12:06)
[2017-01-18] MEDS: Gabapentin CAP(*) 400 MG PO SCH ×2 (13:27→20:45)
[2017-01-18] MEDS: Gabapentin CAP(*) 100 MG PO SCH ×2 (13:28→21:16)
[2017-01-18] MEDS: Pentoxifylline CR TAB* 400 MG PO SCH ×2 (13:29→21:18)
[2017-01-18] MEDS: Morphine TAB Extended Release (*) 30 MG TAB.ER PO SCH (13:29)
[2017-01-18] MEDS: oxyCODONE TAB* 5 MG TAB PO PRN ×2 (13:39→22:34)
--- NOTE | 2017-01-18 14:28 | HP ---
CC: Dr. Cha * [facility] MEDICINE HISTORY AND PHYSICAL: DATE OF ADMISSION: 01/18/17 PRIMARY CARE PHYSICIAN: Dr. Cha. ATTENDING PHYSICIAN: Dr. Delmi Kemp * (dictation provided by Rahul Schulz NP ) CHIEF COMPLAINT: Fall. HISTORY OF PRESENT ILLNESS: Mr. Bryant is a 76-year-old male with a complicated past medical history including atrial fibrillation, on chronic Xarelto therapy; COPD; type 2 diabetes; coronary artery disease, with stent; chronic pain, who presents today to the hospital with concern for fall at home. Mr. Bryant states that he was discharged from [facility] approximately 2 weeks ago. He had been there for rehabilitation after recurrent bouts of C. difficile and deconditioning. He reports that his diarrhea has completely resolved and he was feeling well yesterday. This morning, he was sitting on the edge of the bed when he fell asleep sitting up. He, while asleep, fell off the bed and hit his head on bedside table. Mr. Bryant states that he frequently falls asleep sitting up and he does not think that there is any connection between this and his narcotic usage. The patient hit the right side of his face near the orbit of his right eye. EMS was called. The patient states again that he was feeling well prior to all of this. He has had no fevers , no chills, no cough, no shortness of breath. No nausea, vomiting, diarrhea, or abdominal pain. In the emergency room, Mr. Bryant had multiple imaging studies including a brain CT, cervical spine CT, chest x-ray, maxillofacial CT, pelvis x-ray, and rib x-ray, which failed to demonstrate any fracture other than a right orbital fracture with associated hematoma. His labs were unremarkable demonstrating a persistent chronic kidney disease that was at baseline and a very mild leukocytosis with a white blood cell count of 12.3. PAST MEDICAL HISTORY: 1. Atrial fibrillation, on chronic warfarin therapy and amiodarone. 2. COPD. 3. BPH. 4. Type 2 diabetes, non-insulin dependent. 5. Recurrent C. diff, now resolved. 6. Coronary artery disease, with stent placement. 7. Irritable bowel syndrome. 8. History of esophageal cancer. 9. Hyperlipidemia. 10. Anxiety. 11. Chronic back and knee pain for which he is on chronic narcotic therapy. 12. Rheumatoid arthritis. 13. Hypothyroidism. MEDICATIONS: 1. Levothyroxine 0.1875 mcg p.o. daily. 2. Rapaflo 8 mg p.o. bedtime. 3. Omeprazole 20 mg p.o. q.a.m. 4. Testosterone 200 mg IM q.10 days. 5. Senna with docusate 2 tabs p.o. bedtime p.r.n. 6. Rivaroxaban 20 mg p.o. bedtime. 7. Ascorbic acid 500 mg p.o. bedtime. 8. Hiprex 1 g p.o. b.i.d. 9. Eyelid cleanser topically q.12 hours p.r.n. 10. Gabapentin 500 mg p.o. t.i.d. 11. Trental CR 400 mg p.o. t.i.d. 12. Afrin 0.05% nasal spray, 1 spray both nares q.12 hours p.r.n. 13. Carboxymethylcellulose 1 drop both eyes daily p.r.n. 14. Albuterol with ipratropium 1 puff inhaled four times a day p.r.n. 15. Cyclosporin 1 drop both eyes q.12 hours p.r.n. 16. DuoDERM patch on Fridays. 17. Nystatin cream topically b.i.d. 18. Lactic acid 12% topically b.i.d. p.r.n. 19. Amiodarone 200 mg p.o. daily. 20. Silver sulfadiazine 1% one application topically daily. 21. Ondansetron orally dissolving tabs 4 mg sublingual q.6 hours p.r.n. 22. Morphine ER 30 mg p.o. q.12 hours. 23. Lorazepam 1 mg p.o. t.i.d. p.r.n. 24. Ferrous sulfate 325 mg p.o. bedtime. 25. Aspirin 81 mg p.o. bedtime. 26. Atorvastatin 20 mg p.o. bedtime. 27. Insulin Lantus 38 units subcutaneously bedtime. 28. Furosemide 20 mg p.o. daily. 29. Polyethylene glycol 17 g p.o. daily. 30. Oxycodone immediate release 10 mg p.o. q.6 hours p.r.n. 31. Glipizide 2.5mg p.o. daily. ALLERGIES: To METRONIDAZOLE and CEPHALEXIN. FAMILY HISTORY: Significant for mother with diabetes and Alzheimer's, who at age 90 and father had colon cancer. SOCIAL HISTORY: The patient with at least [id number] smoking history, quit 10 years ago. No report of alcohol or drug use. Lives with his , who is the healthcare proxy. REVIEW OF SYSTEMS: A 14-point review of systems was completed with Mr. Bryant and all those not mentioned above were negative. PHYSICAL EXAMINATION GENERAL: Mr. Bryant is sitting up in bed. He is in no acute distress. VITAL SIGNS: Temperature 98.8, heart rate 60, respiratory rate 16, O2 saturation 95% on room air, blood pressure 144/87. LUNGS: Clear to auscultation bilaterally, with no accessory muscle use and good aeration. HEART: S1 and S2. No murmur, rub, gallop, and regular. ABDOMEN: Soft, nontender with bowel sounds positive x4. EXTREMITIES: No cyanosis or edema. NEURO: He is alert, he is oriented x3. He moves all extremities equally. There is no facial asymmetry or focal weakness. The patient's extraocular movements are intact. He denies diplopia or blurry vision. SKIN: The patient has a large ecchymosis to his right inferior orbit. Eyelid is swollen, but again, he has no double vision, blurry vision, or impairment in his extraocular movements. LABORATORY DATA: INR 1.44. WBC 12.3, hemoglobin 11.4, hematocrit 36, platelet count 269. Sodium 135, potassium 4.0, chloride 102, serum bicarbonate 28, BUN 22, creatinine 1.63, glucose 146, lactic acid 1.4. ASSESSMENT AND PLAN: Mr. Bryant is a 76-year-old male with a past medical history of atrial fibrillation, chronic obstructive pulmonary disease, diabetes , coronary artery disease with stents, and chronic pain, on chronic narcotic therapy, who presents today to the hospital after a mechanical fall at home. Our plans are for inpatient admission as expected length of stay will be greater than 2 days for the followin. Fall: The patient is on Xarelto therapy and does have a hematoma to his right inferior orbit. At this time, he has no impairment in ocular movement to warrant any further imaging beyond the CT scan that was done today. Plan to hold Xarelto tonight and reconsider resuming that tomorrow or in the coming days based on clinical course. 2. Chronic pain: The patient is on morphine SR 30 mg p.o. b.i.d. as well as a short-acting oxycodone. Plan to continue that for now but will be monitoring him closely for signs of oversedation and titrating that down if possible or if needed. 3. Atrial fibrillation: Continue amiodarone. The patient is currently in sinus rhythm with a heart rate in the 60s. Plan to hold Xarelto as noted above based on fall with hematoma. 4. Chronic obstructive pulmonary disease: No evidence of acute exacerbation. The patient will have albuterol p.r.n. 5. Type 2 diabetes: Plan to continue home Lantus. He will have blood glucoses q.a.c. Plan to hold glipizide. 6. Coronary artery disease, with stents: No current chest pain or shortness of breath. Plan to continue atorvastatin, hold aspirin. 7. Anxiety: Continue lorazepam. 8. Gastroesophageal reflux disease: Continue omeprazole. 9. DVT prophylaxis. With SCDs. The patient had Xarelto today. We will consider resuming that tomorrow or adding heparin subcu. 10. Code status is full code. TIME SPENT: Approximately 60 minutes was spent on the admission of this patient , more than half that time spent with the patient at bedside reviewing the events leading up to this hospitalization, performing the physical examination , and reviewing the plan of care. RAHUL SCHULZ NP [id number]/CPS #: [id number] KIMBERLY
[2017-01-18] MEDS ORDERED: Senna/Docusate (NF) TAB PO PRN (16:29)
[2017-01-18] MEDS: Insulin LISPRO* 1 UNITS UNIT SUBCUT SCH (17:31)
[2017-01-18] MEDS: Acetaminophen TAB* 325 MG PO PRN (18:03)
--- NOTE | 2017-01-18 18:20 | PN ---
Minal Berry SooYoung, scribed for Sean Pineda MD on 01/18/17 at 0848 . Progress Note - Progress Note Date of Service: 01/18/17 Note: SO from Dr. Mcdonald at shift change pending imaging results. 0852: Provider at bedside A 76 y/o M presents at ED with c/o neck pain, R-sided rib pain. Brief PE shows pt does not have eye entrapment. There is ecchymosis on R side of eye, especially on R inferior orbit, slight swelling. There is R rib cage pain. Soft , distended, obese, nontender. No pedal edema. A&Ox3. DIAGNOSTICS CXR as read by radiologist: IMPRESSION: No active cardiopulmonary dz. ED physician has reviewed this radiology report and agrees. Ribs XR as read by radiologist: IMPRESSION: No displaced rib fx or PTX. ED physician has reviewed this radiology report and agrees. Pelvis XR as read by radiologist: IMPRESSION: Anatomic alignment of a left hip prosthesis in the AP projection without radiographically apparent fracture or dislocation. ED physician has reviewed this radiology report and agrees. Brain CT as read by radiology: IMPRESSION: No intracranial mass or hemorrhage is noted. Scalp hematoma. Fracture floor of the right orbit. ED physician has reviewed this radiology report and agrees. C-SPINE CT and MAXILLOFACIAL CT as read by radiology: IMPRESSION: 1. Fracture of the right inferior orbital wall with herniation of fat and hematoma. The globe and ocular muscles appear to be appropriately positioned. If physical examination indicates entrapment of either extraocular muscles or nerves than more specific characterization could be made with MRI of the orbits. 2. Degenerative changes of the cervical spine as described above without evidence of acute fracture or dislocation. ED physician has reviewed this radiology report and agrees. COT: This pt was signed out by Dr. Mcdonald who requested f/u with CT head, face , neck. Pt has R inferior orbital fracture, however, pt does not have eye entrapment. He does not have eye pain, and EOMI. I discussed this case with Dr. Read who recommend f/u as out-patient. However, when I tried to ambulate pt, and pt was unable to sit up due to pain. Therefore, discussed case with Dr. Kemp , hospitalist, who accepted pt for admission. He is hemodynamically stable; alert & oriented x 3. CONSULT 0940: With Dr. Read, Oral and Facial Surgery If pt's visual acuity is OK and there is no eye entrapment, pt can f/u in office. 1102: With Dr. Kemp, hospitalist Will admit pt. DX: Orbital fx. Accidental fall. Unsteady gait. Unable to care for himself DISPO: Stable, admit. The documentation as recorded by the Mnial candelario SooYoung accurately reflects the service I personally performed and the decisions made by me, Sean Pineda MD.
[2017-01-18] MEDS: Atorvastatin* 20 MG TAB PO SCH (20:45)
[2017-01-18] MEDS: Ferrous Sulfate TAB* 325 MG PO SCH (20:45)
[2017-01-18] MEDS: Ascorbic Acid TAB* 500 MG PO SCH (20:45)
[2017-01-18] MEDS: Insulin GLARGINE(*) 1 UNITS UNIT SUBCUT SCH (20:46)
[2017-01-18] MEDS ORDERED: Aspirin Low Dose CHEW TAB* 81 MG PO SCH (21:00)
[2017-01-18] MEDS: Methenamine Hippurate TAB* 1 GM TAB PO SCH (21:18)
[2017-01-18] MEDS: LORazepam TAB(*) 1 MG PO PRN (22:34)
[2017-01-19] MEDS: Morphine TAB Extended Release (*) 30 MG TAB.ER PO SCH ×3 (02:04→12:16)
[2017-01-19] MEDS: Acetaminophen TAB* 325 MG PO PRN ×3 (03:24→18:02)
[2017-01-19] MEDS: Levothyroxine TAB* 100 MCG TAB PO SCH (05:59)
[2017-01-19] MEDS: oxyCODONE TAB* 5 MG TAB PO PRN ×3 (05:59→20:53)
[2017-01-19] MEDS: Levothyroxine TAB* 88 MCG TAB PO SCH (05:59)
[2017-01-19 06:04] LABS: Hematocrit 34 % (42-52); Hemoglobin 10.7 g/dl (14.0-18.0); Mean Corpuscular HGB Conc 32 g/dl (31-36); Mean Corpuscular Hemoglobin 27 pg (27-31); Mean Corpuscular Volume 84 fL (80-94); Mean Platelet Volume 7 um3 (7.4-10.4); Red Blood Count 3.98 10^6/ul (4.0-5.4); Red Cell Distribution Width 16 % (10.5-15); White Blood Count 8.2 10^3/ul (3.5-10.8)
[2017-01-19 06:21] LABS: BUN/Creatinine Ratio 13.2 (8-20); Calcium 8.8 mg/dL (8.6-10.3); EGFR African American 61.5 (>60); EGFR Non-African American 47.8 (>60); Potassium 3.7 mmol/L (3.5-5.0)
[2017-01-19] MEDS: Gabapentin CAP(*) 100 MG PO SCH ×3 (08:56→20:52)
[2017-01-19] MEDS: Gabapentin CAP(*) 400 MG PO SCH ×3 (08:57→20:51)
[2017-01-19] MEDS: Amiodarone TAB* 200 MG PO SCH (08:58)
[2017-01-19] MEDS: Furosemide TAB* 20 MG PO SCH (08:58)
[2017-01-19] MEDS: Polyethylene Glycol 3350* 17 GM PACKET PO SCH (08:58)
[2017-01-19] MEDS: Omeprazole CAP* 20 MG PO SCH (08:58)
[2017-01-19] MEDS: Insulin LISPRO* 1 UNITS UNIT SUBCUT SCH ×3 (08:58→18:03)
[2017-01-19] MEDS: Methenamine Hippurate TAB* 1 GM TAB PO SCH ×2 (09:00→20:52)
[2017-01-19] MEDS ORDERED: Levothyroxine TAB* 25 MCG TAB PO SCH (09:00)
[2017-01-19] MEDS: Pentoxifylline CR TAB* 400 MG PO SCH ×3 (09:01→20:54)
--- NOTE | 2017-01-19 10:56 | PN ---
Subjective Date of Service: 01/19/17 Interval History: This is a 76 yo male with afib on Xarelto who [facility] an admission for [facility]. Patient sustained a R orbital fx after hitting his head on a side table when he fell asleep in his chair. This am, patient reports most of his pain is in his neck. No fx on CT of the CS at admission. He has little to no pain in his face or eye. No double vision , slightly blurred. No abd pain, n/v. No CP or SOB. Objective Active Medications: Acetaminophen (Tylenol Tab*) 650 mg PO Q6H PRN PRN Reason: PAIN Last Admin: 01/19/17 09:14 Dose: 650 mg Albuterol (Ventolin Hfa Inhaler*) 2 puff INH Q4H PRN PRN Reason: SOB/WHEEZING Amiodarone HCl (Cordarone Tab*) 200 mg PO DAILY [facility] Last Admin: 01/19/17 08:58 Dose: 200 mg Ascorbic Acid (Vitamin C Tab*) 500 mg PO BEDTIME MARK Last Admin: 01/18/17 20:45 Dose: 500 mg Atorvastatin Calcium (Lipitor*) 20 mg PO BEDTIME MARK Last Admin: 01/18/17 20:45 Dose: 20 mg Dextrose (D50w Syringe 50 Ml*) 12.5 gm IV PUSH .FOR FS < 60 - SS PRN PRN Reason: FS < 60 Docusate Sodium (Colace Cap*) 100 mg PO BEDTIME PRN PRN Reason: CONSTIPATION Ferrous Sulfate (Ferrous Sulfate Tab*) 325 mg PO BEDTIME [facility] Last Admin: 01/18/17 20:45 Dose: 325 mg Furosemide (Lasix Tab*) 20 mg PO DAILY MARK Last Admin: 01/19/17 08:58 Dose: 20 mg Gabapentin (Neurontin Cap(*)) 400 mg PO TID [facility] Last Admin: 01/19/17 08:57 Dose: 400 mg Gabapentin (Neurontin Cap(*)) 100 mg PO TID [facility] Last Admin: 01/19/17 08:56 Dose: 100 mg Insulin Glargine (Lantus(*)) 38 units SUBCUT BEDTIME [facility] Last Admin: 01/18/17 20:46 Dose: 38 units Insulin Human Lispro (Humalog*) 0 units SUBCUT AC MARK PRN Reason: Protocol Last Admin: 01/19/17 08:58 Dose: 2 units Levothyroxine Sodium (Synthroid Tab*) 100 mcg PO QAM@0600 [facility] Last Admin: 01/19/17 05:59 Dose: 100 mcg Levothyroxine Sodium (Synthroid Tab*) 88 mcg PO DAILY@0600 [facility] Last Admin: 01/19/17 05:59 Dose: 88 mcg Lorazepam (Ativan Tab(*)) 1 mg PO TID PRN PRN Reason: ANXIETY Last Admin: 01/18/17 22:34 Dose: 1 mg Methenamine Hippurate (Hiprex Tab*) 1 gm PO BID [facility] Last Admin: 01/19/17 09:00 Dose: 1 gm Morphine Sulfate (Ms Contin(*)) 30 mg PO Q12H [facility] Last Admin: 01/19/17 03:24 Dose: 30 mg Omeprazole (Prilosec Cap*) 20 mg PO DAILY@0730 [facility] Last Admin: 01/19/17 08:58 Dose: 20 mg Ondansetron HCl (Zofran Odt Tab*) 4 mg SL Q6H PRN PRN Reason: NAUSEA/VOMITING Oxycodone HCl (Roxycodone Tab*) 10 mg PO Q6H PRN PRN Reason: PAIN Last Admin: 01/19/17 05:59 Dose: 10 mg Oxymetazoline HCl (Afrin 0.05% Nasal [place]*) 1 spray BOTH NARES Q12H PRN PRN Reason: CONGESTION Pentoxifylline (Trental Cr Tab*) 400 mg PO TID [facility] Last Admin: 01/19/17 09:01 Dose: 400 mg Polyethylene Glycol/Electrolytes (Miralax*) 17 gm PO DAILY [facility] Last Admin: 01/19/17 08:58 Dose: 17 gm Senna (Senokot Tab*) 2 tab PO BEDTIME PRN PRN Reason: CONSTIPATION Silver Sulfadiazine (Silvadine 1%*) 1 applic TOPICAL DAILY [facility] Vital Signs: Temp Pulse Resp BP Pulse Ox 98.1 F 70 16 126/59 91 01/19/17 07:38 01/19/17 08:21 01/19/17 08:57 01/19/17 07:38 01/19/17 08:21 Oxygen Devices in Use Now: None Appearance: Uncomfortable appearing elderly gentleman. Slightly sedated Ears/Nose/Mouth/Throat: - - extensive ecchymosis of both eyes and forehead. EOMs intact. Respiratory: Symmetrical Chest Expansion and Respiratory Effort, Clear to Auscultation Cardiovascular: NL Sounds; No Murmurs; No JVD, RRR Abdominal: NL Sounds; No Tenderness; No Distention Extremities: No Edema Skin: - - extensive facial ecchymosis Neurological: Alert and Oriented x 3 Result Diagrams: 01/19/17 05:44 01/19/17 05:44 Assess/Plan/Problems-Billing Assessment: This is a 76 yo male with afib, COPD, IDDM, CAD, chronic pain and recurrent Cdiff (currently asx) who sustained a fall at home resulting in a R orbital fracture. - Patient Problems (1) Orbit fracture, right Comment: Images reviewed by Dr Read from the ER No intervention indicated No compromised vision, EOMs intact (2) Cervical strain, acute Comment: Whiplash injury Hesitant to add additional sedating medications given the circumstances of his injury Recommend application of heat Will request PT/OT consult to help decide if he can continue to function at home or whether he needs to return to rehab (3) Chronic pain Comment: Cont home analgesics at this time (4) CKD (chronic kidney disease) Comment: Stable, Cr at baseline (5) COPD (chronic obstructive pulmonary disease) Comment: No acute exacerbation (6) Diabetes mellitus Comment: Continue Lantus and SSI. 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 Waiting for PT/OT consult to help with dispo planning
[2017-01-19] MEDS: Silver Sulfadiazine 1%* 20 GM TOPICAL SCH (11:09)
--- NOTE | 2017-01-19 12:20 | ED ---
Johnie Berry Benjamin, scribed for Dat Mcdonald MD on 01/18/17 at 0617 . Head Injury - HPI Summary HPI Summary: 76yo male c/o a mechanical fall about 1 hour ago. Pt fell from his bed while attemting to get up, hitting the right side of his head and face. Pt reports pain in his neck and right sided face, head, and ribs. Pt denies LOC. Pt is on Xarelto. - History Of Current Complaint Stated Complaint: FALL Hx Obtained From: Patient Mechanism Of Injury: Fall From A Standing Position Onset/Duration: Started Hours Ago - 1 hr ago, Traumatic, Still Present Onset of Pain: Immediate Severity Currently: Moderate Severity Initially: Moderate Location of Head Injury: Frontal - right, Temporal - right Associated Signs And Symptoms: Neck Pain, Bruising - right eye and right forehead - Allergies/Home Medications Allergies/Adverse Reactions: Allergies Allergy/AdvReac Type Severity Reaction Status Date / Time Metronidazole AdvReac Intermediate Nausea And Verified 12/02/16 14:14 Vomiting Cephalexin [From Keflex] AdvReac Mild GI Upset Verified 11/08/16 10:02 BANANAS Allergy Mild See Comment Uncoded 11/08/16 10:02 WALNUTS Allergy Mild See Comment Uncoded 11/08/16 10:02 Home Medications: Home Medications Gabapentin CAP(*) [Neurontin 100 mg CAP(*)] 500 mg PO TID 01/18/17 [History Confirmed 01/18/17] Levothyroxine TAB* [Synthroid TAB*] 0.1875 mg PO QAM 01/18/17 [History Confirmed 01/18/17] glipiZIDE TAB* [Glucotrol TAB*] 2.5 mg PO DAILY 01/18/17 [History Confirmed 01/25] PMH/Surg Hx/FS Hx/Imm Hx Endocrine/Hematology History: Reports: Hx Diabetes, Hx Thyroid Disease Cardiovascular History: Reports: Hx Angina, Hx Angioplasty, Hx Coronary Artery Disease, Hx Hypercholesterolemia, Hx Hypertension, Other Cardiovascular Problems /Disorders - HISTORY OF ATRIAL FIBRILLARION Denies: Hx Congestive Heart Failure, Hx Myocardial Infarction, Hx Pacemaker/ ICD, Hx Valvular Heart Disease Respiratory History: Reports: Hx Chronic Obstructive Pulmonary Disease (COPD), Hx Sleep Apnea Denies: Hx Asthma GI History: Reports: Hx Gall Bladder Disease - removed, Hx Gastroesophageal Reflux Disease, Hx Hiatal Hernia, Hx Ulcer, Other GI Disorders - Barretts esophagus History: Denies: Hx Renal Disease Musculoskeletal History: Reports: Hx Arthritis - ARTHRITIS, Hx Rheumatoid Arthritis, Hx Back Problems, Hx Osteoporosis Sensory History: Reports: Hx Cataracts - RIGHT EYE, Hx Contacts or Glasses - does not have them now Denies: Hx Hearing Aid Opthamlomology History: Reports: Hx Cataracts - RIGHT EYE, Hx Contacts or Glasses - does not have them now Neurological History: Reports: Other Neuro Impairments/Disorders - diabetic neuropathy (feet) Psychiatric History: Reports: Hx Anxiety Denies: Hx Panic Disorder - Cancer History Cancer Type, 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 FEET - [place]. NASAL - CLEAR THE PASSAGE Hx Anesthesia Reactions: No - Immunization History Date of Tetanus Vaccine: [facility] Infectious Disease History: Reports: Hx Hepatitis - CURED Denies: Hx Clostridium Difficile, Hx Human Immunodeficiency Virus (HIV), Hx of Known/Suspected MRSA, Hx Shingles, Hx Tuberculosis, Hx Known/Suspected VRE, Hx Known/Suspected VRSA, History Other Infectious Disease - Family History Known Family History: Positive: Diabetes, Other - alzheimer's and colon CA - Social History Alcohol Use: Rare Hx Substance Use: No Substance Use Type: Reports: None Hx Tobacco Use: Yes Smoking Status (MU): Former Smoker Type: Cigarettes Amount Used/How Often: 1.5ppd Length of Time of Smoking/Using Tobacco: 50 years Have You Smoked in the Last Year: No Review of Systems Constitutional: Negative Eyes: Negative ENT: Negative Cardiovascular: Negative Respiratory: Negative Gastrointestinal: Negative Genitourinary: Negative Positive: Arthralgia - neck pain, right rib pain Positive: Bruising - right eye, and right forehead Neurological: Negative Psychological: Normal All Other Systems Reviewed And Are Negative: Yes Physical Exam - Summary Physical Exam Summary: Appearance: Non-toxic well-Appearing, no pain distress, well nourished Skin: warm, skin color reflects adequate perfusion, dry, no acute skin lesions. Ecchymosis on infraorbital right eye with abrasion on right forehead. Head Exam: Normal Eye Exam: EOMI, PERRL, conjunctiva clear ENT: pharynx nml, TM nml. No hemotympanum. Neck exam: Supple, nontender Respiratory Exam: CTA, breath sounds present, no rales, no rhonchi, no wheezes Cardiovascular Exam: RRR, S1, S2, No Murmur, No rub, No gallops, pulses symmetrical Abdomen Description: +BS, nontender, Soft, no guarding, no rebound, nondistended , no organomegaly Musculoskeletal: Normal, Strength/ROM Intact. Motor intact in all 4 extremities. Neurological Exam: nml, sens/motor intact, A&Ox3, no cerebellar dysfunction. CN intact. Psychological Exam: affect/mood appropriate Triage Information Reviewed: Yes Vital Signs On Initial Exam: Initial Vitals Temp Pulse Resp BP Pulse Ox 98.8 F 67 18 140/73 94 01/18/17 06:02 01/18/17 06:02 01/18/17 06:02 01/18/17 06:02 01/18/17 06:02 Vital Signs Reviewed: Yes Diagnostics - Vital Signs Vital Signs Temp Pulse Resp BP Pulse Ox 01/18/17 06:02 98.8 F 67 18 140/73 94 - Laboratory Result Diagrams: 01/19/17 05:44 01/19/17 05:44 Lab Statement: Any lab studies that have been ordered have been reviewed, and results considered in the medical decision making process. - EKG 0641. Cardiac Rate: NL - 60bpm EKG Rhythm: Sinus Rhythm EKG Interpretation: low voltage in all leads. Head Injury Course/Dx Course Of Treatment: Reviewed pts medication and allergy lists. High blood pressure noted. C-collar was placed. - Diagnoses Provider Diagnoses: Fall, Closed head injury Discharge - Discharge Plan Condition: Fair Disposition: ADMITTED TO [facility] documentation as recorded by the Johnie candelario Benjamin accurately reflects the service I personally performed and the decisions made by Harry reinoso Afoma Frances, MD.
[2017-01-19] MEDS: Senna TAB PO PRN (20:50)
[2017-01-19] MEDS: Docusate CAP* 100 MG PO PRN (20:51)
[2017-01-19] MEDS: Atorvastatin* 20 MG TAB PO SCH (20:51)
[2017-01-19] MEDS: Ascorbic Acid TAB* 500 MG PO SCH (20:52)
[2017-01-19] MEDS: Ferrous Sulfate TAB* 325 MG PO SCH (20:53)
[2017-01-19] MEDS: Insulin GLARGINE(*) 1 UNITS UNIT SUBCUT SCH (20:54)
[2017-01-20] MEDS: Morphine TAB Extended Release (*) 30 MG TAB.ER PO SCH ×3 (02:11→22:48)
[2017-01-20] MEDS: Acetaminophen TAB* 325 MG PO PRN ×2 (02:11→09:34)
[2017-01-20] MEDS: Levothyroxine TAB* 88 MCG TAB PO SCH (05:05)
[2017-01-20] MEDS: Levothyroxine TAB* 100 MCG TAB PO SCH (05:05)
[2017-01-20] MEDS: oxyCODONE TAB* 5 MG TAB PO PRN ×2 (07:36→18:36)
[2017-01-20] MEDS: Omeprazole CAP* 20 MG PO SCH (07:36)
[2017-01-20] MEDS: Methenamine Hippurate TAB* 1 GM TAB PO SCH ×2 (08:38→22:47)
[2017-01-20] MEDS: Gabapentin CAP(*) 400 MG PO SCH ×3 (08:38→22:47)
[2017-01-20] MEDS: Polyethylene Glycol 3350* 17 GM PACKET PO SCH (08:38)
[2017-01-20] MEDS: Pentoxifylline CR TAB* 400 MG PO SCH ×3 (08:39→22:48)
[2017-01-20] MEDS: Gabapentin CAP(*) 100 MG PO SCH ×3 (08:39→22:47)
[2017-01-20] MEDS: Amiodarone TAB* 200 MG PO SCH (08:40)
[2017-01-20] MEDS: Insulin LISPRO* 1 UNITS UNIT SUBCUT SCH ×3 (08:40→18:13)
[2017-01-20] MEDS: Furosemide TAB* 20 MG PO SCH (08:40)
[2017-01-20] MEDS: Silver Sulfadiazine 1%* 20 GM TOPICAL SCH (09:35)
--- NOTE | 2017-01-20 09:37 | PN ---
Subjective Date of Service: 01/20/17 Interval History: This is a 76 yo male admitted after a minor trauma at home resulting in a R orbit fx. He has little facial pain, but sig orbital swelling. Some double vision. C/o neck pain and stiffness. No CP, SOB, abd pain, n/v. Objective Active Medications: Acetaminophen (Tylenol Tab*) 650 mg PO Q6H PRN PRN Reason: PAIN Last Admin: 01/20/17 02:11 Dose: 650 mg Albuterol (Ventolin Hfa Inhaler*) 2 puff INH Q4H PRN PRN Reason: SOB/WHEEZING Amiodarone HCl (Cordarone Tab*) 200 mg PO DAILY [facility] Last Admin: 01/20/17 08:40 Dose: 200 mg Ascorbic Acid (Vitamin C Tab*) 500 mg PO BEDTIME [facility] Last Admin: 01/19/17 20:52 Dose: 500 mg Atorvastatin Calcium (Lipitor*) 20 mg PO BEDTIME [facility] Last Admin: 01/19/17 20:51 Dose: 20 mg Dextrose (D50w Syringe 50 Ml*) 12.5 gm IV PUSH .FOR FS < 60 - SS PRN PRN Reason: FS < 60 Docusate Sodium (Colace Cap*) 100 mg PO BEDTIME PRN PRN Reason: CONSTIPATION Last Admin: 01/19/17 20:51 Dose: 100 mg Ferrous Sulfate (Ferrous Sulfate Tab*) 325 mg PO BEDTIME [facility] Last Admin: 01/19/17 20:53 Dose: 325 mg Furosemide (Lasix Tab*) 20 mg PO DAILY [facility] Last Admin: 01/20/17 08:40 Dose: 20 mg Gabapentin (Neurontin Cap(*)) 400 mg PO TID [facility] Last Admin: 01/20/17 08:38 Dose: 400 mg Gabapentin (Neurontin Cap(*)) 100 mg PO TID [facility] Last Admin: 01/20/17 08:39 Dose: 100 mg Insulin Glargine (Lantus(*)) 38 units SUBCUT BEDTIME [facility] Last Admin: 01/19/17 20:54 Dose: 38 units Insulin Human Lispro (Humalog*) 0 units SUBCUT AC MARK PRN Reason: Protocol Last Admin: 01/20/17 08:40 Dose: 2 units Levothyroxine Sodium (Synthroid Tab*) 100 mcg PO QAM@0600 [facility] Last Admin: 01/20/17 05:05 Dose: 100 mcg Levothyroxine Sodium (Synthroid Tab*) 88 mcg PO DAILY@0600 [facility] Last Admin: 01/20/17 05:05 Dose: 88 mcg Lorazepam (Ativan Tab(*)) 1 mg PO TID PRN PRN Reason: ANXIETY Last Admin: 01/18/17 22:34 Dose: 1 mg Methenamine Hippurate (Hiprex Tab*) 1 gm PO BID [facility] Last Admin: 01/20/17 08:38 Dose: 1 gm Morphine Sulfate (Ms Contin(*)) 30 mg PO Q12H [facility] Last Admin: 01/20/17 02:11 Dose: 30 mg Omeprazole (Prilosec Cap*) 20 mg PO DAILY@0730 [facility] Last Admin: 01/20/17 07:36 Dose: 20 mg Ondansetron HCl (Zofran Odt Tab*) 4 mg SL Q6H PRN PRN Reason: NAUSEA/VOMITING Oxycodone HCl (Roxycodone Tab*) 10 mg PO Q6H PRN PRN Reason: PAIN Last Admin: 01/20/17 07:36 Dose: 10 mg Oxymetazoline HCl (Afrin 0.05% Nasal [place]*) 1 spray BOTH NARES Q12H PRN PRN Reason: CONGESTION Pentoxifylline (Trental Cr Tab*) 400 mg PO TID [facility] Last Admin: 01/20/17 08:39 Dose: 400 mg Polyethylene Glycol/Electrolytes (Miralax*) 17 gm PO DAILY [facility] Last Admin: 01/20/17 08:38 Dose: 17 gm Senna (Senokot Tab*) 2 tab PO BEDTIME PRN PRN Reason: CONSTIPATION Last Admin: 01/19/17 20:50 Dose: 2 tab Silver Sulfadiazine (Silvadine 1%*) 1 applic TOPICAL DAILY [facility] Last Admin: 01/19/17 11:09 Dose: 1 % Vital Signs: Temp Pulse Resp BP Pulse Ox 98.2 F 65 17 112/57 96 01/20/17 07:20 01/20/17 07:20 01/20/17 08:39 01/20/17 07:20 01/20/17 07:20 Oxygen Devices in Use Now: None Appearance: Elderly male in NAD Ears/Nose/Mouth/Throat: - - EOMs intact, significant orbit swelling, L>R Respiratory: Symmetrical Chest Expansion and Respiratory Effort, Clear to Auscultation Cardiovascular: NL Sounds; No Murmurs; No JVD, RRR Abdominal: NL Sounds; No Tenderness; No Distention Extremities: No Edema Skin: - - significant orbit and prefrontal swelling Neurological: Alert and Oriented x 3 Result Diagrams: 01/19/17 05:44 01/19/17 05:44 Assess/Plan/Problems-Billing Assessment: This is a 76 yo male with afib, COPD, IDDM, CAD, chronic pain and recurrent Cdiff (currently asx) who sustained a fall at home resulting in a R orbital fracture. - Patient Problems (1) Orbit fracture, right Comment: Images reviewed by Dr Read from the ER No intervention indicated No compromised vision, EOMs intact (2) Cervical strain, acute Comment: Whiplash injury Hesitant to add additional sedating medications given the circumstances of his injury Recommend application of heat (3) Chronic pain Comment: Cont home analgesics at this time (4) CKD (chronic kidney disease) Comment: Stable, Cr at baseline (5) COPD (chronic obstructive pulmonary disease) Comment: No acute exacerbation (6) Diabetes mellitus Comment: Continue Lantus and SSI. 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 PT/OT recommend MARIA G, patient is unable to safely navigate at home. SW/CM involved to help with dc planning
[2017-01-20] MEDS: Ascorbic Acid TAB* 500 MG PO SCH (22:46)
[2017-01-20] MEDS: Atorvastatin* 20 MG TAB PO SCH (22:46)
[2017-01-20] MEDS: Ferrous Sulfate TAB* 325 MG PO SCH (22:48)
[2017-01-20] MEDS: Insulin GLARGINE(*) 1 UNITS UNIT SUBCUT SCH (22:49)
[2017-01-21] MEDS: Senna TAB PO PRN (00:14)
[2017-01-21] MEDS: Docusate CAP* 100 MG PO PRN (00:14)
[2017-01-21] MEDS: oxyCODONE TAB* 5 MG TAB PO PRN (00:15)
[2017-01-21] MEDS: LORazepam TAB(*) 1 MG PO PRN (00:15)
[2017-01-21] MEDS ORDERED: Morphine INJ* 4 MG/ML 1 ML CARPUJECT IV ONE (01:17)
[2017-01-21] MEDS: Levothyroxine TAB* 100 MCG TAB PO SCH (05:57)
[2017-01-21] MEDS: Levothyroxine TAB* 88 MCG TAB PO SCH (05:57)
[2017-01-21] MEDS: Insulin LISPRO* 1 UNITS UNIT SUBCUT SCH ×2 (07:35→12:08)
[2017-01-21] MEDS: Omeprazole CAP* 20 MG PO SCH (07:51)
[2017-01-21] MEDS: Polyethylene Glycol 3350* 17 GM PACKET PO SCH (07:51)
[2017-01-21] MEDS: Gabapentin CAP(*) 400 MG PO SCH (07:51)
[2017-01-21] MEDS: Methenamine Hippurate TAB* 1 GM TAB PO SCH (07:52)
[2017-01-21] MEDS: Pentoxifylline CR TAB* 400 MG PO SCH (07:52)
[2017-01-21] MEDS: Amiodarone TAB* 200 MG PO SCH (07:52)
[2017-01-21] MEDS: Furosemide TAB* 20 MG PO SCH (07:52)
[2017-01-21] MEDS: Gabapentin CAP(*) 100 MG PO SCH (07:52)
--- NOTE | 2017-01-21 11:21 | DS ---
CC: Dr. Cha * DISCHARGE SUMMARY: DATE OF ADMISSION: 01/18/17 DATE OF DISCHARGE: 01/21/17 PRIMARY CARE PROVIDER: Dr. Jamie Cha. DISCHARGING PROVIDER: RACQUEL Banuelos. SUPERVISING PHYSICIAN: Dr. Ish Lopez * (DICTATED BY RACQUEL BANUELOS) PRIMARY DISCHARGE DIAGNOSES: 1. Right orbit fracture with extensive facial edema and ecchymosis. 2. Mild concussion. 3. Cervical strain secondary to whiplash type mechanism. SECONDARY DISCHARGE DIAGNOSES: 1. Chronic pain. 2. Chronic kidney disease. 3. Chronic obstructive pulmonary disease without acute exacerbation. 4. Insulin dependent diabetes. 5. Atrial fibrillation, rate controlled and anticoagulated, on Xarelto. 6. Coronary artery disease without evidence of acute coronary syndrome. 7. History of recurrent Clostridium difficile colitis without complaints of diarrhea. DISCHARGE MEDICATIONS: 1. Combivent Respimat one puff inhale 4 times daily as needed for shortness of breath. 2. Amiodarone 200 mg p.o. daily. 3. Vitamin C 500 mg p.o. at bedtime. 4. Aspirin 81 mg p.o. at bedtime. 5. Atorvastatin 20 mg p.o. at bedtime. 6. Refresh eye drops, one drop in both eyes daily as needed. 7. DuoDERM apply topically one patch daily. 8. Cyclosporine ophthalmic drop 0.05% solution one drop in both eyes twice daily as needed. 9. Eyelid cleanser one pad use topically twice daily as needed. 10. Ferrous sulfate 325 mg p.o. at bedtime. 11. Lasix 20 mg p.o. daily. 12. Gabapentin 500 mg p.o. 3 times daily. 13. Lantus 38 units subcu daily. 14. Ativan 1 mg p.o. 3 times daily as needed for severe anxiety. 15. Lactic acid 12% solution apply topically twice daily as needed. 16. Levothyroxine 0.1875 mg p.o. daily. 17. Hiprex 1 g p.o. twice daily. 18. Morphine tablet extended release 30 mg p.o. twice daily. 19. Nystatin cream apply topically twice daily. 20. Omeprazole 20 mg p.o. daily. 21. Zofran 4 mg sublingual q.4 hours as needed for nausea. 22. Oxycodone 10 mg p.o. q.6 hours as needed for pain. 23. Oxymetazoline 0.05% nasal spray one spray in both nares twice daily as needed. 24. Trental controlled release tablet 400 mg p.o. 3 times daily. 25. MiraLAX 17 g p.o. daily. 26. Xarelto 20 mg p.o. at bedtime. 27. Senna docusate 2 tablets p.o. at bedtime. 28. Rapaflo 8 mg p.o. at bedtime. 29. Silvadene apply topically daily. 30. Testosterone cypionate 200 mg IM every 10 days. 31. Glipizide 2.5 mg p.o. daily. Medication Changes: None. HOSPITAL IMAGIN. CT brain shows no intracranial mass or hemorrhage. There is a scalp hematoma noted in the fracture of the floor of the right orbit. 2. Cervical spine CT shows fracture of the right inferior orbital wall with herniation of fat and hematoma. The globe and ocular muscles appear to be appropriately positioned. Degenerative changes of the cervical spine are noted without evidence of acute fracture or dislocation. 3. Chest x-ray shows no acute disease. 4. Maxillofacial CT shows fracture of the right inferior orbital wall with herniation of fat and hematoma. The globe and ocular muscles appear to be appropriately positioned. 5. Pelvic x-ray shows anatomic alignment of the left hip prosthesis without apparent fracture or dislocation. 6. X-ray of the wrist shows no displaced fracture or pneumothorax. HOSPITAL COURSE: This is a 76-year-old gentleman with fairly extensive medical history including insulin-dependent diabetes, atrial fibrillation for which he is anticoagulated with Xarelto as well as coronary artery disease and COPD with chronic pain, who fell asleep in an upright position, falling forward and hitting his face on corner table. Imaging in the emergency department demonstrated a nondisplaced fracture of the floor of the right orbit. Images were reviewed with Dr. Read by the emergency department provider, who suggested that no intervention was necessary. The patient is chronically anticoagulated with Xarelto and as a result of this had significant amount of ecchymosis and associated edema and was unable to return home. The patient was subsequently admitted for pain management and physical therapy evaluation. The majority of patient's pain is actually in his neck and seems to be associated with a cervical strain likely due to whiplash type mechanism. He was evaluated by Physical Therapy and Occupational Therapy and has significant deficits in both. His Xarelto was held during his hospital stay and the swelling around both eyes improved somewhat, although he does still have significant ecchymosis and some complaints of blurred vision, nothing double and extraocular movements on serial exams remain intact. Of note, the patient was discharged from [facility] just about 2 weeks ago after being hospitalized in November for recurrent C. diff infection. The patient felt that he was doing quite well and independent in all ADLs prior to this acute injury. DISPOSITION AND FOLLOWUP PLAN: The patient is being discharged to [facility] for additional rehab following this acute facial trauma. No specific intervention or followup is necessary for his fracture. Patient requires additional supportive care measures. RACQUEL BANUELOS [id number]/CPS #: [id number] KIMBERLY
[2017-01-21] MEDS: Morphine TAB Extended Release (*) 30 MG TAB.ER PO SCH (12:08)
[2017-01-21] MEDS: Silver Sulfadiazine 1%* 20 GM TOPICAL SCH (12:09)
[2017-01-21 12:38] VITALS: BP 117/68
== END 2017-01-21 13:30 | DRG 90 ==
LOC: ED 05:41 → MED 11:22
PROVIDERS: ADMIT Internal Medicine; ATTEND Internal Medicine
DX: S06.0X0A Concussion without loss of consciousness, initial encounter (principal); E11.22 Type 2 diabetes mellitus with diabetic chronic kidney disease; E11.40 Type 2 diabetes mellitus with diabetic neuropathy, unspecified; E11.36 Type 2 diabetes mellitus with diabetic cataract; S02.81XA Fracture of other specified skull and facial bones, right side, initial encounter for closed fracture; S00.03XA Contusion of scalp, initial encounter; S13.4XXA Sprain of ligaments of cervical spine, initial encounter; J44.9 Chronic obstructive pulmonary disease, unspecified; I11.0 Hypertensive heart disease with heart failure; I48.91 Unspecified atrial fibrillation; E03.9 Hypothyroidism, unspecified; E78.5 Hyperlipidemia, unspecified; I25.10 Atherosclerotic heart disease of native coronary artery without angina pectoris; K58.9 Irritable bowel syndrome, unspecified; G89.29 Other chronic pain; F41.9 Anxiety disorder, unspecified; M54.9 Dorsalgia, unspecified; M06.9 Rheumatoid arthritis, unspecified; M25.569 Pain in unspecified knee; G47.30 Sleep apnea, unspecified; K21.0 Gastro-esophageal reflux disease with esophagitis; K44.9 Diaphragmatic hernia without obstruction or gangrene; N18.9 Chronic kidney disease, unspecified; W18.30XA Fall on same level, unspecified, initial encounter; M47.9 Spondylosis, unspecified; Z96.642 Presence of left artificial hip joint; K22.70 Barrett's esophagus without dysplasia; M81.0 Age-related osteoporosis without current pathological fracture; Z90.49 Acquired absence of other specified parts of digestive tract; Z88.8 Allergy status to other drugs, medicaments and biological substances; Z91.018 Allergy to other foods; Z85.01 Personal history of malignant neoplasm of esophagus; Z95.5 Presence of coronary angioplasty implant and graft; Z87.891 Personal history of nicotine dependence; Z83.3 Family history of diabetes mellitus; Z80.0 Family history of malignant neoplasm of digestive organs; Y92.003 Bedroom of unspecified non-institutional (private) residence as the place of occurrence of the external cause; Z79.82 Long term (current) use of aspirin; Z79.4 Long term (current) use of insulin; Z79.01 Long term (current) use of anticoagulants
CPT/HCPCS: 36415; 70450; 70486; 71010; 72125; 72170; 80048; 80053; 82550; 82553; 83605; 84484; 85025; 85027; 85610; 90715; 93005; A9270-GY; J2270

== ENCOUNTER → 2017-01-22 10:31 | Emergency (ER) | payer MEDICARE ==
[~2017-01-22 10:31] MED LIST: HYDROcodone/ACETAMIN 5-325 MG* 1 TAB PO ONE; NS 0.9% 1000 ML* 500 ML IV ONE
[2017-01-22 11:52] LABS: Hematocrit 32 % (42-52); Hemoglobin 10.1 g/dl (14.0-18.0); Mean Corpuscular HGB Conc 32 g/dl (31-36); Mean Corpuscular Hemoglobin 27 pg (27-31); Mean Corpuscular Volume 84 fL (80-94); Mean Platelet Volume 7 um3 (7.4-10.4); Red Blood Count 3.77 10^6/ul (4.0-5.4); Red Cell Distribution Width 16 % (10.5-15); White Blood Count 10.6 10^3/ul (3.5-10.8)
--- NOTE | 2017-01-22 11:55 | RAD ---
INDICATION: Left shoulder injury. TECHNIQUE: 2 views of the left shoulder were obtained. FINDINGS: The bones appear osteopenic. There is a comminuted slightly impacted fracture of the surgical neck of the humerus. There is distraction of some fracture fragments. IMPRESSION: COMMINUTED SLIGHTLY DISPLACED FRACTURE OF THE SURGICAL NECK OF THE HUMERUS.
[2017-01-22 12:07] LABS: BUN/Creatinine Ratio 13.3 (8-20); C Reactive Protein 44.51 mg/L (< 5.00); Calcium 9.3 mg/dL (8.6-10.3); EGFR African American 58.7 (>60); EGFR Non-African American 45.6 (>60); Globulin 2.9 g/dL (2-4); Magnesium 2.2 mg/dL (1.9-2.7); Potassium 3.5 mmol/L (3.5-5.0); Total Bilirubin 0.5 mg/dL (0.2-1.0); Total Protein 6.9 g/dL (6.4-8.9)
[2017-01-22 12:08] LABS: Troponin I 0.01 ng/mL (<0.04)
[2017-01-22 13:50] LABS: Urine Bilirubin Negative (Negative); Urine Glucose Negative (Negative); Urine Nitrite Negative (Negative)
[2017-01-22 15:46] VITALS: BP 129/72
--- NOTE | 2017-01-25 13:27 | ED ---
Toma Berry Edward, scribed for Sean Pineda MD on 01/22/17 at 1108 . Adult Trauma - HPI Summary HPI Summary: 76 y/o male BIBA c/o L shoulder pain rated 7/10 in severity s/p fall 2x earlier today at [facility]. The symptoms are not aggravated or alleviated by anything. Pt has lots of bruising over his face s/p fall with head injury 4 days ago. Pt was seen in the ED for that fall. - History of Current Complaint Chief Complaint: EDExtremityUpper Stated Complaint: FALL, SHOULDER INJURY Time Seen by Provider: 01/22/17 11:06 Hx Obtained From: Patient Mechanism of Injury: Fall Current Severity: Moderate Pain Intensity: 6 Pain Scale Used: 0-10 Numeric Location: Extremities - L shoulder Aggravating Factor(s): Nothing Alleviating Factor(s): Nothing Associated Signs & Symptoms: Positive: Ecchymosis - Face - Additional Pertinent History Primary Care Physician: [id number] - Allergy/Home Medications Allergies/Adverse Reactions: Allergies Allergy/AdvReac Type Severity Reaction Status Date / Time Metronidazole AdvReac Intermediate Nausea And Verified 12/02/16 14:14 Vomiting Cephalexin [From Keflex] AdvReac Mild GI Upset Verified 11/08/16 10:02 BANANAS Allergy Mild See Comment Uncoded 11/08/16 10:02 WALNUTS Allergy Mild See Comment Uncoded 11/08/16 10:02 PMH/Surg Hx/FS Hx/Imm Hx Previously Healthy: No Endocrine/Hematology History: Reports: Hx Diabetes - NIDDM, Hx Thyroid Disease Denies: Hx Anticoagulant Therapy, Hx Blood Disorders, Hx Blood Transfusions, Hx Bone Marrow Disease, Hx Sickle Cell Disease Cardiovascular History: Reports: Hx Angina, Hx Angioplasty, Hx Coronary Artery Disease, Hx Hypercholesterolemia, Hx Hypertension, Other Cardiovascular Problems /Disorders - HISTORY OF ATRIAL FIBRILLARION Denies: Hx Congestive Heart Failure, Hx Myocardial Infarction, Hx Pacemaker/ ICD, Hx Valvular Heart Disease Respiratory History: Reports: Hx Chronic Obstructive Pulmonary Disease (COPD), Hx Sleep Apnea Denies: Hx Asthma GI History: Reports: Hx Gall Bladder Disease - removed, Hx Gastroesophageal Reflux Disease, Hx Hiatal Hernia, Hx Ulcer, Other GI Disorders - Barretts esophagus History: Denies: Hx Renal Disease Musculoskeletal History: Reports: Hx Arthritis - ARTHRITIS, Hx Rheumatoid Arthritis, Hx Back Problems, Hx Osteoporosis Sensory History: Reports: Hx Cataracts - RIGHT EYE, Hx Contacts or Glasses - does not have them now, Hx Eye Injury, Hx Vision Problem Denies: Hx Eye Prosthesis, Hx Glaucoma, Hx Legally Blind, Hx Macular Degeneration, Hx Deafness, Hx Hearing Aid, Hx Hearing Problem, Other Sensory Impairments Opthamlomology History: Reports: Hx Cataracts - RIGHT EYE, Hx Contacts or Glasses - does not have them now, Hx Eye Injury, Hx Vision Problem Denies: Hx Eye Prosthesis, Hx Glaucoma, Hx Legally Blind, Hx Macular Degeneration, Other Sensory Impairments Neurological History: Reports: Other Neuro Impairments/Disorders - diabetic neuropathy (feet) Denies: Hx Dementia, Hx Developmental Delay, Hx Headaches, Hx Migraine, Hx Nerve Disease, Hx Seizures, Hx Spinal Cord Injury, Hx Transient Ischemic Attacks (TIA) Psychiatric History: Reports: Hx Anxiety Denies: Hx Panic Disorder - Cancer History Cancer Type, 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 - REMOVED- INCLUDING MARGINS NO NEED FOR CHEMO OR RADIATION Hx Chemotherapy: No Hx Radiation Therapy: No - Surgical History Surgery Procedure, Year, and Place: 10 CARDIAC STENTS ( [place]), CHOLECYSTECTOMY, APPENDECTOMY, LEFT TOTAL HIP, ESOPHAGEAL CA TUMOR REMOVED 2014. FEET - [place]. NASAL - CLEAR THE PASSAGE Hx Anesthesia Reactions: No - Immunization History Date of Tetanus Vaccine: Infectious Disease History: No Infectious Disease History: Reports: Hx Hepatitis - CURED Denies: Hx Clostridium Difficile, Hx Human Immunodeficiency Virus (HIV), Hx of Known/Suspected MRSA, Hx Shingles, Hx Tuberculosis, Hx Known/Suspected VRE, Hx Known/Suspected VRSA, History Other Infectious Disease, Traveled Outside the [place] in Last 30 Days - Family History Known Family History: Positive: Diabetes, Other - alzheimer's and colon CA - Social History Alcohol Use: Rare Hx Substance Use: No Substance Use Type: Reports: None Hx Tobacco Use: Yes Smoking Status (MU): Former Smoker Type: Cigarettes Amount Used/How Often: 1.5ppd Length of Time of Smoking/Using Tobacco: 50 years Have You Smoked in the Last Year: No Review of Systems Constitutional: Negative Eyes: Negative ENT: Negative Cardiovascular: Negative Respiratory: Negative Gastrointestinal: Negative Genitourinary: Negative Positive: Arthralgia - L shoulder pain Positive: Bruising - over face Neurological: Negative Psychological: Normal All Other Systems Reviewed And Are Negative: Yes Physical Exam - Summary Physical Exam Summary: VITAL SIGNS: Reviewed. GENERAL: Patient is a well-developed and nourished male who is lying comfortable in the stretcher. Patient is not in any acute respiratory distress. HEAD AND FACE: No signs of trauma. Ecchymosis over eyes and at the forehead. EYES: PERRLA, EOMI x 2, No injected conjunctiva, no nystagmus. EARS: Hearing grossly intact. Ear canals and tympanic membranes are within normal limits. MOUTH: Oropharynx within normal limits. NECK: Supple, trachea is midline, no adenopathy, no JVD, no carotid bruit, no c- spine tenderness, neck with full ROM. CHEST: Symmetric, no tenderness at palpation LUNGS: Clear to auscultation bilaterally. No wheezing or crackles. CVS: Regular rate and rhythm, S1 and S2 present, no murmurs or gallops appreciated. ABDOMEN: Soft, non-tender. No signs of distention. No rebound no guarding, and no masses palpated. Bowel sounds are normal. EXTREMITIES: L shoulder tenderness NEURO: Alert and oriented x 3. No acute neurological deficits. Speech is normal and follows commands. SKIN: Dry and warm ecchymosis aorund both eyes and forehead, tenderness at L shoulder. dehydrated, uncomfortable. sick. Triage Information Reviewed: Yes Vital Signs On Initial Exam: Initial Vitals Temp Pulse Resp BP Pulse Ox 97.7 F 66 20 151/79 98 01/22/17 10:37 01/22/17 10:37 01/22/17 10:37 01/22/17 10:37 01/22/17 10:37 Vital Signs Reviewed: Yes - Taras Coma Scale Coma Scale Total: 15 Diagnostics - Vital Signs Vital Signs Temp Pulse Resp BP Pulse Ox 01/22/17 11:00 58 129/82 97 01/22/17 10:50 59 95 01/22/17 10:48 110/86 01/22/17 10:37 97.7 F 66 20 151/79 98 - Laboratory Result Diagrams: 01/22/17 11:35 01/22/17 11:35 Lab Statement: Any lab studies that have been ordered have been reviewed, and results considered in the medical decision making process. - Radiology SHOULDER XR Xray Interpretation: Positive (See Comments) - COMMINUTED SLIGHTLY DISPLACED FRACTURE OF THE SURGICAL NECK OF THE HUMERUS. Radiology Interpretation Completed By: Radiologist - EKG 1 EKG Interpretation: 12:22 - SR @ [address] Elevations. Diffuse T wave abnormalities. Adult Trauma Course/Dx - Course Assessment/Plan: 76 y/o male BIBA c/o L shoulder pain rated 7/10 in severity s/ p fall 2x earlier today at [facility]. The symptoms are not aggravated or alleviated by anything. Pt has lots of bruising over his face s/p fall with head injury 4 days ago. Pt was seen in the ED for that fall. SHOULDER XR SHOWS COMMINUTED SLIGHTLY DISPLACED FRACTURE OF THE SURGICAL NECK OF THE HUMERUS. EKG SHOWS 12:22 - SR @ [address] Elevations. Diffuse T wave abnormalities. Test results are without significant abnormalities except normochromic anemia, CRP 44.5. UA negative. Pt was given [place] for pain. Therefore I discussed with Dr. Mullins who recommends the pt be d/c back to the correction since he has only been in the correction for 1 day. Therefore the pt will be d/c home with f/u with PCP. The pt is hemodynamically stable, A&Ox3. - Diagnoses Provider Diagnoses: mechanical fall, Shoulder fracture, left Discharge - Discharge Plan Condition: Stable Disposition: HOME Patient Education Materials: Fall Prevention for Older Adults (ED) Referrals: Cha Rodgers MD [Primary Care Provider] - 3 Days (PLEASE F/U IN 2-3 DAYS) The documentation as recorded by the Toma candelario Edward accurately reflects the service I personally performed and the decisions made by me, Sean Pineda MD.
== END | disposition home or self-care (01) ==
LOC: ED 10:31
DX: S42.92XA Fracture of left shoulder girdle, part unspecified, initial encounter for closed fracture (principal); M25.512 Pain in left shoulder; R58 Hemorrhage, not elsewhere classified; Z87.891 Personal history of nicotine dependence; W19.XXXA Unspecified fall, initial encounter; Y93.9 Activity, unspecified; Y92.129 Unspecified place in nursing home as the place of occurrence of the external cause
CPT/HCPCS: 36415; 80053; 81003; 83735; 84484; 85025; 86140; 93005; 99283

== ENCOUNTER 2017-05-25 17:14 | Inpatient (IN) | payer MEDICARE ==
[2017-05-25 18:03] LABS: INR 1.12 (0.77-1.02)
--- NOTE | 2017-05-25 18:03 | RAD ---
Indication: Shortness of breath. Single frontal view of the chest performed at 1740 hours was reviewed. Comparison is made with previous exam dated January 18, 2017. Cardiomegaly is noted. Bibasilar atelectasis is noted. No evidence of alveolar consolidation is noted. IMPRESSION: BIBASILAR ATELECTASIS. NO PNEUMONIA IS IDENTIFIED.
[2017-05-25 18:05] LABS: EGFR Non-African American 49.4 (>60)
[2017-05-25] MEDS ORDERED: Albuterol/Ipratropium NEB.SOL* Albuterol 2.5 MG/Ipratropium 0.5 MG 3 ML INH ONE (18:28)
[2017-05-25 18:52] LABS: Hematocrit 29 % (42-52); Hemoglobin 8.3 g/dl (14.0-18.0); Mean Corpuscular HGB Conc 29 g/dl (31-36); Mean Corpuscular Hemoglobin 20 pg (27-31); Mean Corpuscular Volume 70 fL (80-94); Mean Platelet Volume 7 um3 (7.4-10.4); Platelet Count 359 10^3/ul (150-450); Red Cell Distribution Width 20 % (10.5-15); White Blood Count 4.9 10^3/ul (3.5-10.8)
[2017-05-25 18:55] LABS: ABS Basophils 0 10^3/ul (0-0.2); ABS Eosinophils 0.2 10^3/ul (0-0.6); ABS Lymphocytes 0.6 10^3/ul (1.0-4.8); ABS Monocytes 0.5 10^3/ul (0-0.8); ABS Neutrophils 3.5 10^3/ul (1.5-7.7); ABS Nucleated RBC 0 10^3/ul; Lymphocyte % 13.1 % (25-47); Nucleated Red Blood Cells % 0.1
[2017-05-25] MEDS ORDERED: Acetaminophen TAB* 325 MG PO PRN (21:16)
[2017-05-25] MEDS ORDERED: Polyethylene Glycol 3350* 17 GM PACKET PO PRN (21:16)
[2017-05-25] MEDS ORDERED: Artificial Tears* 15 ML BTL BOTH EYES PRN (21:16)
[2017-05-25] MEDS: DOXYcycline IV* 100 MG in NS 0.9% 250 ML* 250 ML IVPB SCH (22:47)
[2017-05-26 00:50] LABS: Hematocrit 25 % (42-52); Hemoglobin 7.3 g/dl (14.0-18.0)
[2017-05-26] MEDS: Albuterol/Ipratropium NEB.SOL* Albuterol 2.5 MG/Ipratropium 0.5 MG 3 ML INH SCH ×4 (01:07→19:55)
[2017-05-26] MEDS: Levothyroxine TAB* 100 MCG TAB PO SCH (05:46)
[2017-05-26 06:30] LABS: ABS Basophils 0 10^3/ul (0-0.2); ABS Eosinophils 0.1 10^3/ul (0-0.6); ABS Lymphocytes 0.7 10^3/ul (1.0-4.8); ABS Monocytes 0.6 10^3/ul (0-0.8); ABS Neutrophils 3.5 10^3/ul (1.5-7.7); ABS Nucleated RBC 0 10^3/ul; Eosinophil % 2.8 % (0-6); Hematocrit 26 % (42-52); Hemoglobin 7.6 g/dl (14.0-18.0); Lymphocyte % 13.6 % (25-47); Mean Corpuscular HGB Conc 30 g/dl (31-36); Mean Corpuscular Hemoglobin 21 pg (27-31); Mean Corpuscular Volume 69 fL (80-94); Mean Platelet Volume 7 um3 (7.4-10.4); Nucleated Red Blood Cells % 0; Platelet Count 349 10^3/ul (150-450); Red Cell Distribution Width 20 % (10.5-15); White Blood Count 4.9 10^3/ul (3.5-10.8)
[2017-05-26 06:32] LABS: EGFR Non-African American 43.3 (>60)
[2017-05-26] MEDS: Mometasone/Formoter 100/5 MDI INH SCH ×2 (07:33→19:55)
[2017-05-26] MEDS: Gabapentin CAP(*) 100 MG PO SCH ×3 (08:01→20:58)
[2017-05-26] MEDS: Furosemide TAB* 20 MG PO SCH ×2 (08:02→17:29)
[2017-05-26] MEDS: Amiodarone TAB* 200 MG PO SCH ×2 (08:03→20:58)
[2017-05-26] MEDS: CMCS: Pantoprazole TAB (NF) 40 MG TAB PO SCH ×2 (08:03→20:58)
[2017-05-26] MEDS: Ascorbic Acid TAB* 500 MG PO SCH (08:03)
[2017-05-26] MEDS: Folic Acid TAB* 1 MG PO SCH (08:03)
[2017-05-26] MEDS: Pentoxifylline CR TAB* 400 MG PO SCH ×3 (08:04→20:59)
[2017-05-26] MEDS: CMCS: Fenofibrate(NF) 145 MG TAB PO SCH (08:05)
[2017-05-26] MEDS: Methenamine Hippurate TAB* 1 GM TAB PO SCH ×2 (08:05→20:58)
[2017-05-26] MEDS: Morphine TAB Extended Release (*) 30 MG TAB.ER PO SCH (08:06)
[2017-05-26] MEDS: Cyclobenzaprine TAB* 10 MG PO SCH (08:06)
--- NOTE | 2017-05-26 09:33 | HP ---
CC: Dr. Jamie Cha * HISTORY AND PHYSICAL: DATE OF ADMISSION: 05/25/17 PRIMARY CARE PROVIDER: Dr. Jamie Cha. ATTENDING PHYSICIAN: Dr. Alisa Adams * (dictated by Susu Weller NP). CHIEF COMPLAINT: Wheezing and shortness of breath. HISTORY OF PRESENT ILLNESS: Mr. Bryant is a 76-year-old male with past medical history significant for paroxysmal atrial fibrillation, COPD, BPH, type 2 diabetes mellitus, hypertension, anxiety, chronic pain, recurrent C. diff, Batista's esophagus, coronary artery disease, IBS, esophageal carcinoma and hypothyroidism, who states that a few months ago, he developed shortness of breath and was diagnosed with pleurisy or pneumonia. He completed two courses of antibiotics and has since had shortness of breath and wheezing. The patient states that for the last few weeks, he has had a significant amount of wheezing but over the last couple of days, he has noticed increased shortness of breath with exertion, so significant he was unable to ambulate to the bathroom without significant shortness of breath. He reports an occasional moist cough that is mostly nonproductive but occasionally produces a small amount of phlegm. He denies any fever, chills, chest pain, nausea, vomiting, diarrhea, abdominal pain , although he does report some discomfort in his chest when he is coughing. He denies lightheadedness and urinary symptoms such as dysuria, increased frequency or urgency. The patient denies any signs of bleeding. He denies any bright red blood per rectum. The patient states that at baseline, he has had dark colored stools since he had taken iron supplements. When he stopped taking that, his stools continued to be dark colored. He states this has been ongoing and is not new. He denies tarry stools. The patient states he does not have a bridge expert. He has been using Combivent 4 times daily as prescribed, but feels that it is no longer helping with his shortness of breath. He also states that several years ago, he had EGD showing what the patient described as some nodules in his lower esophagus, but these were not biopsied due to the registered dental assistant rda's fear of him having a bleed. Due to his shortness of breath, he presented to the emergency room for further evaluation of his symptoms. While in the emergency room, the patient received a DuoNeb with minimal improvement in his breathing. He was requiring oxygen supplementation. He had an EKG without any significant findings. A chest x-ray showing bibasilar atelectasis and no pneumonia. No leukocytosis, was afebrile. His CRP was not elevated. Due to the patient's acute hypoxic respiratory failure and shortness of breath, the Hospitalist was asked to evaluate the patient. PAST MEDICAL HISTORY: 1. Paroxysmal atrial fibrillation. 2. COPD. 3. BPH. 4. Type 2 diabetes mellitus. 5. Hyperlipidemia. 6. Anxiety. 7. Chronic pain. 8. Rheumatoid arthritis. 9. Recurrent C. diff. 10. Coronary artery disease. 11. Irritable bowel syndrome. 12. Esophageal cancer. 13. Batista's esophagus. 14. Hypothyroidism. PAST SURGICAL HISTORY: 1. Status post cardiac stents x3. 2. Status post excision of esophageal carcinoma. 3. Status post appendectomy. 4. Status post cataract extractions. HOME MEDICATIONS: Include: 1. MiraLAX 17 g oral daily as needed for constipation. 2. Afrin 0.05% nasal spray one spray to both nares daily. 3. Vitamin C 500 mg oral daily. 4. Acetaminophen 325 mg oral every 4 hours as needed for fever or pain. 5. Aspirin 81 mg oral daily at bedtime. 6. Biotene dry mouthwash 3 mL oral daily. 7. Refresh Optive apply gel to both eyes daily as needed for dry eyes. 8. Trental CR 400 mg oral 3 times daily. 9. Medex one capsule oral every evening. 10. Restasis 0.05% ophthalmic one drop to both eyes twice daily. 11. Gabapentin 500 mg oral 3 times daily. 12. Nystatin apply topical twice daily as needed for rash. 13. Depo testosterone 200 mg IM every 10 days. 14. Levothyroxine 200 mcg oral every morning. 15. Mesalamine 1 g oral twice daily. 16. Furosemide 20 mg oral twice daily. 17. MS Contin 30 mg oral daily. 18. Silodosin 8 mg oral every evening. 19. Ammonium 12% topical twice daily as needed for rash. 20. Mometasone furoate 0.1% topical daily as needed for rash. 21. Fluocinolone acetone 0.01% topical daily as needed. 22. Finasteride 5 mg oral every evening. 23. TriCor 145 mg oral every morning. 24. Oxycodone 15 mg oral every 6 hours as needed for pain. 25. Protonix 40 mg oral twice daily. 26. Flexeril 10 mg oral daily. 27. Amiodarone 200 mg oral twice daily. 28. Nitroglycerin 0.4 mg sublingual every 5 minutes as needed for chest pain. 29. Lantus insulin 32 units subcutaneous daily at bedtime. 30. Glipizide 5 mg oral twice daily. 31. Xarelto 20 mg oral every evening. 32. Billingsley-3 1 g oral twice daily. 33. Crestor 40 mg oral every evening. 34. Folic acid 1 mg oral every morning. 35. Combivent 1 puff inhalation 4 times daily. 36. Lorazepam 1 mg oral 3 times daily. ALLERGIES: Include FLAGYL, CEPHALEXIN, BANANAS, and WALNUTS. FAMILY HISTORY: He denies any family history of coronary artery disease. The patient's mother had a history of diabetes mellitus, passed at age 90s. The patient's father had a history of colon cancer and Alzheimer's disease. SOCIAL HISTORY: The patient has at least a [id number] smoking history. He quit approximately 10 years ago. He denies alcohol or recreational drug use. Lives with his , Eric Bryant, will be his surrogate decision maker in the event he is unable to make decisions for himself. REVIEW OF SYSTEMS: I performed an 11-point review of systems. All the pertinent positives and negatives are mentioned in the history of present illness. The remaining review of systems are negative. PHYSICAL EXAMINATION GENERAL APPEARANCE: The patient is alert, pleasant and appears to be in no acute distress. VITAL SIGNS: Temperature 98.9, heart rate 60, respiratory rate 20, O2 sat 95% on 2 L via nasal cannula, blood pressure 135/62. HEENT: Normocephalic, atraumatic. Pupils are equal and reactive to light. Extraocular movements are intact. RESPIRATORY: There is no accessory muscle use. The lungs have scattered rhonchi throughout and some expiratory wheezing. CARDIOVASCULAR: Regular rate and rhythm. S1 and S2 present. There are no murmurs, rubs, or gallops heard. ABDOMEN: Soft, nontender, nondistended. Bowel sounds present x4. EXTREMITIES: There is no lower extremity edema. DP and PT pulses are 2+ and symmetric. MUSCULOSKELETAL: There is no clubbing or cyanosis noted. The patient exhibits good strength in all extremities. NEUROLOGIC: The patient is alert and oriented x4. Cranial nerves II through XII are grossly intact. PSYCHOLOGICAL: The patient is calm and cooperative. SKIN: There are no rashes or abnormalities seen. DIAGNOSTIC STUDIES/LABORATORY DATA: Sodium 138, potassium 4.5, chloride 105, CO2 28, BUN 24, creatinine 1.40, glucose 203. CRP 14.76, BNP 133. White blood cell count 4.9, hemoglobin 8.3, hematocrit 29, platelet count 359. EKG shows a sinus rhythm with a rate of 62. There is a flat T-wave in lead V1. This EKG is similar to previous EKG from 01/22/17. Chest x-ray from today. Radiologist's impression: Basilar atelectasis. No pneumonia identified. IMPRESSION: Mr. Bryant is a 76-year-old male with past medical history significant for paroxysmal atrial fibrillation, chronic obstructive pulmonary disease, benign prostatic hypertrophy, type 2 diabetes mellitus, hypertension, anxiety, chronic pain, rheumatoid arthritis, coronary artery disease, irritable bowel syndrome, esophageal cancer, Batista's esophagus, and hypothyroidism, who presented to the emergency room with complaints of wheezing and shortness of breath. He will be admitted as an observation for chronic obstructive pulmonary disease exacerbation. ASSESSMENT/PLAN: 1. Chronic obstructive pulmonary disease exacerbation. The patient does have wheezing and rhonchi with auscultation, we have placed him on doxycycline due to the fact that his QTC is slightly prolonged and he is already on amiodarone. He is afebrile. He does not want steroids as he said he has not liked it when he has been on prednisone in the past. I am going to start him on Dulera in addition to standing nebs while awake q.6 hours with supplemental oxygen as he has mild hypoxia without it. 2. Anemia. The patient appears to be anemic at baseline, but is lower than he was 4 months ago. In January, his hemoglobin was 10. It is now 8.3 and his hematocrit is now down to 29 from 32. The patient states that he chronically has dark colored stools but denies any tarry stools. He denies any bright red blood per rectum. He is already on twice daily PPI. I am going to continue his PPI and hold his Xarelto. I will check a stool for guaiac. He may benefit from an endoscopy procedure if he show signs of bleeding, although his BUN is not elevated. 3. Paroxysmal atrial fibrillation. The patient is currently is in sinus rhythm. I am going to hold his Xarelto per above. Continue his amiodarone. 4. BPH. The patient will be continued on his home medications. 5. Diabetes mellitus. Get fingersticks a.c. and h.s. We will place the patient on lispro sliding scale in addition to his home Lantus. I am going to hold his home glipizide for now. 6. Chronic pain. The patient will be continued on his home MS Contin and have oxycodone as needed for breakthrough pain. 7. Coronary artery disease. The patient denies chest pain at this time. He will be continued on his home medications. I am going to hold his aspirin to rule out a GI bleed. 8. Hypothyroidism. The patient will be continued on his home levothyroxine. 9. Fluids, electrolytes, and nutrition: The patient will be on a consistent carbohydrate diet. 10. Code status: Full code. 11. DVT prophylaxis: The patient is at highest risk due to the possibility of a GI bleed. I will hold on anticoagulation. He will have SCDs only. 12. Disposition: Observation. TIME SPENT: The time for this admission was approximately 60 minutes, greater than half of that was spent face to face with the patient discussing medications , past medical history, and events leading up to his arrival today and performing a physical examination. The case has been reviewed with the attending, Dr. Adams, who agrees with the plan of care. Reviewed by LEANNA COLEY 05/30/17 1844 [id number] #: [id number] KIMBERLY
[2017-05-26] MEDS: CMC: Cyclosporine 0.05% OPHTH (NF) 0.4 ML VIAL BOTH EYES SCH ×2 (11:23→20:59)
[2017-05-26] MEDS: DOXYcycline IV* 100 MG in NS 0.9% 250 ML* 250 ML IVPB SCH ×2 (11:55→23:55)
--- NOTE | 2017-05-26 13:56 | PN ---
Subjective Date of Service: 05/26/17 Interval History: Patient seen and examined at bedside. Denies fever, chills, N/V/D. Pt states that his shortness of breath is worse then his baseline and is worse with exertion. Pt reports chest discomfort with cough. He feels that his wheezing has improved. Family History: Unchanged from Admission Social History: Unchanged from Admission Past Medical History: Unchanged from Admission Objective Active Medications: Acetaminophen (Tylenol Tab*) 650 mg PO Q4H PRN Reason: FEVER/PAIN Albuterol/Ipratropium (Duoneb (Albuterol 2.5 Mg/Ipratropium 0.5 Mg)) 1 neb INH [id number] AWAKE MARK Amiodarone HCl (Cordarone Tab*) 200 mg PO BID MARK Ascorbic Acid (Vitamin C Tab*) 500 mg PO DAILY MARK Cyclobenzaprine HCl (Flexeril Tab*) 10 mg PO DAILY MARK Cyclosporine (Restasis 0.05% Ophth) 1 drop BOTH EYES BID MARK Fenofibrate (Tricor(Nf)) 145 mg PO QAM MARK Finasteride (Proscar Tab*) 5 mg PO QPM MARK Folic Acid (Folvite Tab*) 1 mg PO QAM MARK Furosemide (Lasix Tab*) 20 mg PO 0800,1600 MARK Gabapentin (Neurontin Cap(*)) 500 mg PO TID MARK Doxycycline Hyclate 100 mg/ (Sodium Chloride) 250 mls @ 250 mls/hr IVPB Q12H MARK Insulin Glargine (Lantus(*)) 32 units SUBCUT BEDTIME MARK Levothyroxine Sodium (Synthroid Tab*) 200 mcg PO DAILY@0600 MARK Lorazepam (Ativan Tab(*)) 1 mg PO TID PRN Reason: ANXIETY Methenamine Hippurate (Hiprex Tab*) 1 gm PO BID MARK Mometasone Furoate/Formoterol Fumar (Dulera 100/5 Mdi*) 2 puff INH BID MARK Morphine Sulfate (Ms Contin(*)) 30 mg PO DAILY MARK Oxycodone HCl (Roxycodone Tab*) 15 mg PO Q6H PRN Reason: PAIN - UNCONTROLLED Pantoprazole Sodium (Protonix Tab (Nf)) 40 mg PO BID MARK Pentoxifylline (Trental Cr Tab*) 400 mg PO TID MARK Polyethylene Glycol/Electrolytes (Miralax*) 17 gm PO DAILY PRN Reason: CONSTIPATION Polyvinyl Alcohol (Polyvinyl Alcohol 1.4% Opth*) 1 drop BOTH EYES DAILY PRN Reason: DRY EYE Rosuvastatin Calcium (Crestor (Nf)) 40 mg PO QPM MARK Silodosin (Rapaflo(Nf)) 8 mg PO QPM MARK Vital Signs - 8 hr 05/26/17 05/26/17 05/26/17 07:22 07:40 08:01 Temperature 98.1 F Pulse Rate 58 70 Respiratory 22 18 Rate Blood Pressure 141/50 (mmHg) O2 Sat by Pulse 95 97 Oximetry 05/26/17 05/26/17 05/26/17 08:06 09:48 10:13 Temperature Pulse Rate Respiratory 18 18 16 Rate Blood Pressure (mmHg) O2 Sat by Pulse Oximetry 05/26/17 11:44 Temperature 98.2 F Pulse Rate 66 Respiratory 18 Rate Blood Pressure 118/50 (mmHg) O2 Sat by Pulse 97 Oximetry Oxygen Devices in Use Now: None Appearance: NAD, sitting up in a chair Respiratory: Symmetrical Chest Expansion and Respiratory Effort, - - Mild expiratory wheezing Cardiovascular: NL Sounds; No Murmurs; No JVD, RRR Abdominal: NL Sounds; No Tenderness; No Distention Extremities: No Edema Skin: No Rash or Ulcers Neurological: Alert and Oriented x 3, NL Muscle Strength and Tone Lines/Tubes/Other Access: Clean, Dry and Intact Peripheral IV - site benign Nutrition: Taking PO's Result Diagrams: 05/26/17 05:48 05/26/17 05:48 Microbiology and Other Data: Microbiology 05/26/17 10:24 Stool Occult Blood (VERONICA) - Final Stool Assess/Plan/Problems-Billing Assessment: Mr. Bryant is a 76 yo male with PMH significant for paroxysmal afib, COPD, BPH , DM, HTN, anxiety, chronic pain, RA, CAD, IBS, esophageal CA, Barett's esophagus, and hypothyroidism, who presented to the emergency room with complaints of wheezing and shortness of breath. - Patient Problems (1) COPD exacerbation Code(s): J44.1 - CHRONIC OBSTRUCTIVE PULMONARY DISEASE W (ACUTE) EXACERBATION SNOMED Code(s): 173084923 Comment: - Shortness of breath improving - Afebrile and no leukocytosis - Declined steroids - Continue routine nebs, doxycycline and dulera (2) Anemia Code(s): D64.9 - ANEMIA, UNSPECIFIED SNOMED Code(s): 469647218 Comment: - Baseline appears to be around 10 - Suspect upper GI bleed, reports dark colored stools (3) GI bleed Code(s): K92.2 - GASTROINTESTINAL HEMORRHAGE, UNSPECIFIED SNOMED Code(s): 87997006 Comment: - Suspect upper GI bleed, Pt reports history of dark stools - Holding Xarelto - Guaiac negative - HH down some today - GI consult, pending - Continue PPI, trend HH (4) CKD (chronic kidney disease) Code(s): N18.9 - CHRONIC KIDNEY DISEASE, UNSPECIFIED SNOMED Code(s): 026321266 Comment: - Acute on chronic - Stage 3 at baseline - Pt's creatinine is slightly above baseline - Hold Lasix while NPO and resume after possible endo (5) Atrial fibrillation Code(s): I48.91 - UNSPECIFIED ATRIAL FIBRILLATION SNOMED Code(s): 02383167 Comment: - Regular rate at this time, HR controlled - Xarelto held in the setting of possible GI bleed - Continue amiodarone (6) Diabetes mellitus Code(s): E11.9 - TYPE 2 DIABETES MELLITUS WITHOUT COMPLICATIONS SNOMED Code(s) : 81494404 Comment: - Glucose 110-200's - Continue Lantus and SSI - Hold home glipizide (7) BPH (benign prostatic hyperplasia) Code(s): N40.0 - BENIGN PROSTATIC HYPERPLASIA WITHOUT LOWER URINRY TRACT SYMP SNOMED Code(s): 902024398 Comment: - On tamsulosin as substitute for silodosin while in the hospital and finasteride (8) Chronic pain Code(s): G89.29 - OTHER CHRONIC PAIN SNOMED Code(s): 77419693 Comment: - Continue home analgesics at this time (9) Anxiety Code(s): F41.9 - ANXIETY DISORDER, UNSPECIFIED SNOMED Code(s): 03284738 (10) Barretts esophagus Code(s): K22.70 - ESPINOZA'S ESOPHAGUS WITHOUT DYSPLASIA SNOMED Code(s): 691530223 Comment: - Continue omeprazole. (11) CAD (coronary artery disease) Code(s): I25.10 - ATHSCL HEART DISEASE OF [place] CORONARY ARTERY W/O ANG PCTRS SNOMED Code(s): 26841226 Comment: - Asymptomatic - Continue ASA and statin (12) Esophageal cancer Comment: - HX (13) IBS (irritable bowel syndrome) Current Visit: No Status: Chronic (14) PVD (peripheral vascular disease) Code(s): I73.9 - PERIPHERAL VASCULAR DISEASE, UNSPECIFIED SNOMED Code(s): 903698826 (15) DVT prophylaxis Code(s): DKU1574 - SNOMED Code(s): 652798729 Comment: - SCDs only in the setting of a possible GI bleed (16) Full code status Code(s): Z78.9 - OTHER SPECIFIED HEALTH STATUS SNOMED Code(s): 437950115 Status and Disposition: OBV to Inpatient. Discharge to home when medically stable, possibly in 1-2 days.
--- NOTE | 2017-05-26 16:59 | ED ---
Radames Berry Gabriel, scribed for Dawson Samaniego MD on 05/25/17 at 1730 . Shortness of Breath - HPI Summary HPI Summary: This patient is a 76 year old M BIBA to [facility] with a chief complaint of SOB since 05-18-17. The patient rates the pain 0/10 in severity. Symptoms aggravated by movement. Symptoms alleviated by O2. Patient reports it feels like his chest is full, a non-productive cough, and wheezing. Patient denies fever. He is not on O2 at home. He used to get panic attacks and thats what he believes been happening the last few days. Patient has had 5 prior stents, COPD, and is a former smoker. - History of Current Complaint Chief Complaint: EDShortnessOfBreath Time Seen by Provider: 05/25/17 17:17 Hx Obtained From: Patient Onset/Duration: Lasting Weeks, Still Present Timing: Constant Current Severity: Severe Dyspnea At: Exertion Associated Signs & Symptoms: Cough (Nonproductive), Wheezing - Allergy/Home Medications Allergies/Adverse Reactions: Allergies Allergy/AdvReac Type Severity Reaction Status Date / Time cephalexin [From Keflex] Allergy GI Upset Verified 05/25/17 22:02 metronidazole Allergy Nausea And Verified 05/25/17 22:02 Vomiting BANANAS Allergy Mild See Comment Uncoded 05/25/17 22:02 WALNUTS Allergy Mild See Comment Uncoded 05/25/17 22:02 Home Medications: Home Medications Acetaminophen TAB* [Tylenol TAB*] 325 mg PO Q4H PRN 05/25/17 [History Confirmed 05/25/17] Albuterol/Ipratropium RESP(NF) [Combivent Respimat(NF)] 1 puff IN QID 05/25/17 [ History Confirmed 05/25/17] Amiodarone TAB* [Cordarone Tab*] 200 mg PO BID 05/25/17 [History Confirmed 05/25] Ascorbic Acid TAB* [Vitamin C TAB*] 500 mg PO DAILY 05/25/17 [History Confirmed 05/25/17] Carboxymethylcellulos/Glycerin [Refresh Optive 1-0.9 %] 1 gel BOTH EYES DAILY PRN 05/25/17 [History Confirmed 05/25/17] Cyclobenzaprine TAB* [Flexeril 10 MG TAB*] 10 mg PO DAILY 05/25/17 [History Confirmed 05/25/17] Cyclosporine 0.05% OPHTH (NF) [Restasis 0.05% OPHTH] 1 drop BOTH EYES BID [History Confirmed 05/25/17] Fenofibrate(NF) [Tricor(NF)] 145 mg PO QAM 05/25/17 [History Confirmed 05/25/17] Finasteride TAB* [Proscar TAB*] 5 mg PO QPM 05/25/17 [History Confirmed 05/25/17 ] Fluocinolone Acetonide [Iluvien] 0.01 % TOPICAL DAILY PRN 05/25/17 [History Confirmed 05/25/17] Folic Acid TAB* [Folvite TAB*] 1 mg PO QAM 05/25/17 [History Confirmed 05/25/17] Levomefolate/B6/B12/Algal Oil [Metanx] 1 cap PO QPM 05/25/17 [History Confirmed 05/25/17] Mometasone Furoate 0.1 % TOPICAL DAILY PRN 05/25/17 [History Confirmed 05/25/17] Morphine TAB Extended Rel(*) [Ms Contin(*)] 30 mg PO DAILY MDD 2 05/25/17 [ History Confirmed 05/25/17] Nitroglycerin TAB 0.4 MG* 0.4 mg SL Q5M PRN 05/25/17 [History Confirmed 05/25/17 ] Leeqk-2-Wurd Ethyl Esters (NF) [Lovaza (NF)] 1 gm PO BID 05/25/17 [History Confirmed 05/25/17] Oxycodone TAB(NF) [Oxycodone HCl 10 MG] 15 mg PO Q6H PRN MDD 3 05/25/17 [ History Confirmed 05/25/17] Oxymetazoline 0.05% NASAL SPR* [Afrin 0.05% NASAL SPRAY*] 1 spray BOTH NARES DAILY 05/25/17 [History Confirmed 05/25/17] Pantoprazole TAB (NF) [Protonix TAB (NF)] 40 mg PO BID 05/25/17 [History Confirmed 05/25/17] Polyethylene Glycol 3350* [Miralax*] 17 gm PO DAILY PRN 05/25/17 [History Confirmed 05/25/17] Rosuvastatin (NF) [Crestor (NF)] 40 mg PO QPM 05/25/17 [History Confirmed ] Saliva Substitute Combo No.9 [Biotene Dry Mouth Mouthwa] 3 ml PO DAILY 05/25/17 [History Confirmed 05/25/17] Silodosin(NF) [Rapaflo(NF)] 8 mg PO QPM 05/25/17 [History Confirmed 05/25/17] PMH/Surg Hx/FS Hx/Imm Hx Endocrine/Hematology History: Reports: Hx Diabetes - NIDDM, Hx Thyroid Disease Denies: Hx Anticoagulant Therapy, Hx Blood Disorders, Hx Blood Transfusions, Hx Bone Marrow Disease, Hx Sickle Cell Disease Cardiovascular History: Reports: Hx Angina, Hx Angioplasty, Hx Coronary Artery Disease, Hx Hypercholesterolemia, Hx Hypertension, Other Cardiovascular Problems /Disorders - HISTORY OF ATRIAL FIBRILLARION Denies: Hx Congestive Heart Failure, Hx Myocardial Infarction, Hx Pacemaker/ ICD, Hx Valvular Heart Disease Respiratory History: Reports: Hx Chronic Obstructive Pulmonary Disease (COPD), Hx Sleep Apnea Denies: Hx Asthma GI History: Reports: Hx Gall Bladder Disease - removed, Hx Gastroesophageal Reflux Disease, Hx Hiatal Hernia, Hx Ulcer, Other GI Disorders - Barretts esophagus History: Denies: Hx Renal Disease Musculoskeletal History: Reports: Hx Arthritis - ARTHRITIS, Hx Rheumatoid Arthritis, Hx Back Problems, Hx Osteoporosis Sensory History: Reports: Hx Cataracts - RIGHT EYE, Hx Contacts or Glasses - does not have them now, Hx Eye Injury, Hx Vision Problem Denies: Hx Eye Prosthesis, Hx Glaucoma, Hx Legally Blind, Hx Macular Degeneration, Hx Deafness, Hx Hearing Aid, Hx Hearing Problem, Other Sensory Impairments Opthamlomology History: Reports: Hx Cataracts - RIGHT EYE, Hx Contacts or Glasses - does not have them now, Hx Eye Injury, Hx Vision Problem Denies: Hx Eye Prosthesis, Hx Glaucoma, Hx Legally Blind, Hx Macular Degeneration, Other Sensory Impairments Neurological History: Reports: Other Neuro Impairments/Disorders - diabetic neuropathy (feet) Denies: Hx Dementia, Hx Developmental Delay, Hx Headaches, Hx Migraine, Hx Nerve Disease, Hx Seizures, Hx Spinal Cord Injury, Hx Transient Ischemic Attacks (TIA) Psychiatric History: Reports: Hx Anxiety Denies: Hx Panic Disorder - Cancer History Cancer Type, 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 - REMOVED- INCLUDING MARGINS NO NEED FOR CHEMO OR RADIATION Hx Chemotherapy: No Hx Radiation Therapy: No - Surgical History Surgery Procedure, Year, and Place: 10 CARDIAC STENTS ( [place]), CHOLECYSTECTOMY, APPENDECTOMY, LEFT TOTAL HIP, ESOPHAGEAL CA TUMOR REMOVED 2014. FEET - [place]. NASAL - CLEAR THE PASSAGE Hx Anesthesia Reactions: No - Immunization History Date of Tetanus Vaccine: uknown Infectious Disease History: Unable to Obtain/Confirm Infectious Disease History: Reports: Hx Hepatitis - CURED Denies: Hx Clostridium Difficile, Hx Human Immunodeficiency Virus (HIV), Hx of Known/Suspected MRSA, Hx Shingles, Hx Tuberculosis, Hx Known/Suspected VRE, Hx Known/Suspected VRSA, History Other Infectious Disease, Traveled Outside the [place] in Last 30 Days - Family History Known Family History: Positive: Diabetes, Other - alzheimer's and colon CA - Social History Occupation: Retired Lives: Alone Alcohol Use: Rare Hx Substance Use: No Substance Use Type: Reports: None Hx Tobacco Use: Yes Smoking Status (MU): Former Smoker Type: Cigarettes Amount Used/How Often: 1.5ppd Length of Time of Smoking/Using Tobacco: 50 years Have You Smoked in the Last Year: No Review of Systems Negative: Fever Positive: Shortness Of Breath, Cough, Other - wheezing All Other Systems Reviewed And Are Negative: Yes Physical Exam - Summary Physical Exam Summary: Appearance: The patient is well-nourished in no acute distress and in no acute pain. Skin: The skin is warm and dry and skin color reflects adequate perfusion. HEENT: The head is normocephalic and atraumatic. The pupils are equal and reactive. The conjunctivae are clear and without drainage. Nares are patent and without drainage. Mouth reveals moist mucous membranes and the throat is without erythema and exudate. The external ears are intact. The ear canals are patent and without drainage. The tympanic membranes are intact. Neck: the neck is supple with full range of motion and non-tender. There are no carotid bruits. There is no neck vein distension. Respiratory: Chest is non-tender. Decreased lung sounds Cardiovascular: Heart is regular rate and rhythm. There is no murmur or rub auscultated. There is no peripheral edema and pulses are symmetrical and equal. Abdomen: The abdomen is soft and non-tender. There are normal bowel sounds heard in all four quadrants and there is no organomegaly palpated. Musculoskeletal: There is no back tenderness noted. Extremities are non-tender with full range of motion. There is good capillary refill. There is no peripheral edema or calf tenderness elicited. Neurological: Patient is alert and oriented to person, place and time. The patient has symmetrical motor strength in all four extremities. Cranial nerves are grossly intact. Deep tendon reflexes are symmetrical and equal in all four extremities. Psychiatric: The patient has an appropriate affect and does not exhibit any anxiety or depression. Decreased lung sounds Triage Information Reviewed: Yes Vital Signs On Initial Exam: Initial Vitals Temp Pulse Resp BP Pulse Ox 98.9 F 68 21 169/76 100 05/25/17 17:19 05/25/17 17:19 05/25/17 17:19 05/25/17 17:19 05/25/17 17:19 Vital Signs Reviewed: Yes Diagnostics - Vital Signs Vital Signs Temp Pulse Resp BP Pulse Ox 05/25/17 17:19 98.9 F 68 21 169/76 100 - Laboratory Lab Results: Lab Results 05/25/17 05/25/17 05/25/17 Range/Units 17:40 17:40 17:40 WBC 4.9 (3.5-10.8) 10^3/ul RBC 4.10 (4.0-5.4) 10^6/ul Hgb 8.3 L (14.0-18.0) g/dl Hct 29 L (42-52) % MCV 70 L (80-94) fL MCH 20 L (27-31) pg MCHC 29 L (31-36) g/dl RDW 20 H (10.5-15) % Plt Count 359 (150-450) 10^3/ul MPV 7 L (7.4-10.4) um3 Neut % (Auto) 72.9 (38-83) % Lymph % (Auto) 13.1 L (25-47) % [place] % (Auto) 9.5 H (1-9) % Eos % (Auto) 4.0 (0-6) % Baso % (Auto) 0.5 (0-2) % Absolute Neuts (auto) 3.5 (1.5-7.7) 10^3/ul Absolute Lymphs (auto) 0.6 L (1.0-4.8) 10^3/ul Absolute Monos (auto) 0.5 (0-0.8) 10^3/ul Absolute Eos (auto) 0.2 (0-0.6) 10^3/ul Absolute Basos (auto) 0 (0-0.2) 10^3/ul Absolute Nucleated RBC 0 10^3/ul Nucleated RBC % 0.1 INR (Anticoag Therapy) (0.77-1.02) D-Dimer, Quantitative (Less Than 230) ng/mL Sodium 138 (133-145) mmol/L Potassium 4.5 (3.5-5.0) mmol/L Chloride 105 (101-111) mmol/L Carbon Dioxide 28 (22-32) mmol/L Anion Gap 5 (2-11) mmol/L BUN 24 (6-24) mg/dL Creatinine 1.40 H (0.67-1.17) mg/dL Est GFR ( Amer) 63.5 (>60) Est GFR (Non-Af Amer) 49.4 (>60) BUN/Creatinine Ratio 17.1 (8-20) Glucose 203 H (70-100) mg/dL POC Glucose (mg/dL) (70-100) mg/dL Lactic Acid (0.5-2.0) mmol/L Calcium 9.1 (8.6-10.3) mg/dL Total Bilirubin 0.40 (0.2-1.0) mg/dL AST 13 (13-39) U/L ALT 15 (7-52) U/L Alkaline Phosphatase 60 (34-104) U/L Troponin I 0.00 (<0.04) ng/mL C-Reactive Protein 14.76 H (< 5.00) mg/L B-Natriuretic Peptide 133 H ( - 100) pg/mL Total Protein 6.6 (6.4-8.9) g/dL Albumin 3.6 (3.2-5.2) g/dL Globulin 3.0 (2-4) g/dL Albumin/Globulin Ratio 1.2 (1-3) 05/25/17 05/25/17 05/25/17 Range/Units 17:40 17:40 21:57 WBC (3.5-10.8) 10^3/ul RBC (4.0-5.4) 10^6/ul Hgb (14.0-18.0) g/dl Hct (42-52) % MCV (80-94) fL MCH (27-31) pg MCHC (31-36) g/dl RDW (10.5-15) % Plt Count (150-450) 10^3/ul MPV (7.4-10.4) um3 Neut % (Auto) (38-83) % Lymph % (Auto) (25-47) % [place] % (Auto) (1-9) % Eos % (Auto) (0-6) % Baso % (Auto) (0-2) % Absolute Neuts (auto) (1.5-7.7) 10^3/ul Absolute Lymphs (auto) (1.0-4.8) 10^3/ul Absolute Monos (auto) (0-0.8) 10^3/ul Absolute Eos (auto) (0-0.6) 10^3/ul Absolute Basos (auto) (0-0.2) 10^3/ul Absolute Nucleated RBC 10^3/ul Nucleated RBC % INR (Anticoag Therapy) 1.12 H (0.77-1.02) D-Dimer, Quantitative < 200 (Less Than 230) ng/mL Sodium (133-145) mmol/L Potassium (3.5-5.0) mmol/L Chloride (101-111) mmol/L Carbon Dioxide (22-32) mmol/L Anion Gap (2-11) mmol/L BUN (6-24) mg/dL Creatinine (0.67-1.17) mg/dL Est GFR ( Amer) (>60) Est GFR (Non-Af Amer) (>60) BUN/Creatinine Ratio (8-20) Glucose (70-100) mg/dL POC Glucose (mg/dL) 128 H (70-100) mg/dL Lactic Acid 1.2 (0.5-2.0) mmol/L Calcium (8.6-10.3) mg/dL Total Bilirubin (0.2-1.0) mg/dL AST (13-39) U/L ALT (7-52) U/L Alkaline Phosphatase (34-104) U/L Troponin I (<0.04) ng/mL C-Reactive Protein (< 5.00) mg/L B-Natriuretic Peptide ( - 100) pg/mL Total Protein (6.4-8.9) g/dL Albumin (3.2-5.2) g/dL Globulin (2-4) g/dL Albumin/Globulin Ratio (1-3) 05/26/17 05/26/17 05/26/17 Range/Units 00:32 05:48 05:48 WBC 4.9 (3.5-10.8) 10^3/ul RBC 3.70 L (4.0-5.4) 10^6/ul Hgb 7.3 L 7.6 L (14.0-18.0) g/dl Hct 25 L 26 L (42-52) % MCV 69 L (80-94) fL MCH 21 L (27-31) pg MCHC 30 L (31-36) g/dl RDW 20 H (10.5-15) % Plt Count 349 (150-450) 10^3/ul MPV 7 L (7.4-10.4) um3 Neut % (Auto) 71.1 (38-83) % Lymph % (Auto) 13.6 L (25-47) % [place] % (Auto) 11.9 H (1-9) % Eos % (Auto) 2.8 (0-6) % Baso % (Auto) 0.6 (0-2) % Absolute Neuts (auto) 3.5 (1.5-7.7) 10^3/ul Absolute Lymphs (auto) 0.7 L (1.0-4.8) 10^3/ul Absolute Monos (auto) 0.6 (0-0.8) 10^3/ul Absolute Eos (auto) 0.1 (0-0.6) 10^3/ul Absolute Basos (auto) 0 (0-0.2) 10^3/ul Absolute Nucleated RBC 0 10^3/ul Nucleated RBC % 0 INR (Anticoag Therapy) (0.77-1.02) D-Dimer, Quantitative (Less Than 230) ng/mL Sodium 139 (133-145) mmol/L Potassium 4.0 (3.5-5.0) mmol/L Chloride 106 (101-111) mmol/L Carbon Dioxide 27 (22-32) mmol/L Anion Gap 6 (2-11) mmol/L BUN 25 H (6-24) mg/dL Creatinine 1.57 H (0.67-1.17) mg/dL Est GFR ( Amer) 55.7 (>60) Est GFR (Non-Af Amer) 43.3 (>60) BUN/Creatinine Ratio 15.9 (8-20) Glucose 116 H (70-100) mg/dL POC Glucose (mg/dL) (70-100) mg/dL Lactic Acid (0.5-2.0) mmol/L Calcium 8.8 (8.6-10.3) mg/dL Total Bilirubin (0.2-1.0) mg/dL AST (13-39) U/L ALT (7-52) U/L Alkaline Phosphatase (34-104) U/L Troponin I (<0.04) ng/mL C-Reactive Protein (< 5.00) mg/L B-Natriuretic Peptide ( - 100) pg/mL Total Protein (6.4-8.9) g/dL Albumin (3.2-5.2) g/dL Globulin (2-4) g/dL Albumin/Globulin Ratio (1-3) 05/26/17 05/26/17 Range/Units 08:00 12:15 WBC (3.5-10.8) 10^3/ul RBC (4.0-5.4) 10^6/ul Hgb (14.0-18.0) g/dl Hct (42-52) % MCV (80-94) fL MCH (27-31) pg MCHC (31-36) g/dl RDW (10.5-15) % Plt Count (150-450) 10^3/ul MPV (7.4-10.4) um3 Neut % (Auto) (38-83) % Lymph % (Auto) (25-47) % [place] % (Auto) (1-9) % Eos % (Auto) (0-6) % Baso % (Auto) (0-2) % Absolute Neuts (auto) (1.5-7.7) 10^3/ul Absolute Lymphs (auto) (1.0-4.8) 10^3/ul Absolute Monos (auto) (0-0.8) 10^3/ul Absolute Eos (auto) (0-0.6) 10^3/ul Absolute Basos (auto) (0-0.2) 10^3/ul Absolute Nucleated RBC 10^3/ul Nucleated RBC % INR (Anticoag Therapy) (0.77-1.02) D-Dimer, Quantitative (Less Than 230) ng/mL Sodium (133-145) mmol/L Potassium (3.5-5.0) mmol/L Chloride (101-111) mmol/L Carbon Dioxide (22-32) mmol/L Anion Gap (2-11) mmol/L BUN (6-24) mg/dL Creatinine (0.67-1.17) mg/dL Est GFR ( Amer) (>60) Est GFR (Non-Af Amer) (>60) BUN/Creatinine Ratio (8-20) Glucose (70-100) mg/dL POC Glucose (mg/dL) 111 H 186 H (70-100) mg/dL Lactic Acid (0.5-2.0) mmol/L Calcium (8.6-10.3) mg/dL Total Bilirubin (0.2-1.0) mg/dL AST (13-39) U/L ALT (7-52) U/L Alkaline Phosphatase (34-104) U/L Troponin I (<0.04) ng/mL C-Reactive Protein (< 5.00) mg/L B-Natriuretic Peptide ( - 100) pg/mL Total Protein (6.4-8.9) g/dL Albumin (3.2-5.2) g/dL Globulin (2-4) g/dL Albumin/Globulin Ratio (1-3) Result Diagrams: 05/26/17 05:48 05/26/17 05:48 Lab Statement: Any lab studies that have been ordered have been reviewed, and results considered in the medical decision making process. - Radiology CXR Radiology Interpretation Completed By: Radiologist - BIBASILAR ATELECTASIS. NO PNEUMONIA IS IDENTIFIED. ED physician has reviewed this radiology report. - EKG 1724 Cardiac Rate: NL EKG Rhythm: Sinus Rhythm - at 62 BPM EKG Interpretation: first degree AV block Course/Dx - Course Course Of Treatment: Mr. Bryant was recently admitted to the hospital for a COPD exacerbation and presents with increased SOB. He has some mild COPD exacerbation which is compounded by a worsening anemia. He is being admitted to the hospitalist service. - Diagnoses Provider Diagnoses: Anemia, COPD (chronic obstructive pulmonary disease), Respiratory insufficiency - Physician Notifications Discussed Care of Patient With: Alisa Adams Time Discussed With Above Provider: 20:30 Instructed by Provider To: Admit As Observation Discharge - Discharge Plan Condition: Fair Disposition: ADMITTED TO [facility] The documentation as recorded by the Radames candelario Gabriel accurately reflects the service I personally performed and the decisions made by me, Dawson Samaniego MD.
[2017-05-26] MEDS ORDERED: Rivaroxaban TAB(*) 20 MG TAB PO SCH (17:00)
[2017-05-26] MEDS: Finasteride TAB* 5 MG PO SCH (17:29)
[2017-05-26] MEDS: CMCS: Rosuvastatin (NF) 20 MG TAB PO SCH (17:29)
[2017-05-26] MEDS ORDERED: SILODOSIN 8 MG PO SCH (18:00)
[2017-05-26 20:22] LABS: Hematocrit 26 % (42-52); Hemoglobin 7.9 g/dl (14.0-18.0)
[2017-05-26] MEDS: Tamsulosin CAP* 0.4 MG PO SCH (20:59)
[2017-05-26] MEDS ORDERED: Aspirin Low Dose CHEW TAB* 81 MG PO SCH (21:00)
[2017-05-26] MEDS: Insulin GLARGINE(*) 1 UNITS UNIT SUBCUT SCH (21:00)
[2017-05-26] MEDS: oxyCODONE TAB* 5 MG TAB PO PRN (23:54)
[2017-05-27] MEDS: Albuterol/Ipratropium NEB.SOL* Albuterol 2.5 MG/Ipratropium 0.5 MG 3 ML INH SCH ×4 (01:20→20:19)
[2017-05-27] MEDS: Levothyroxine TAB* 100 MCG TAB PO SCH (05:12)
[2017-05-27 06:59] LABS: ABS Basophils 0.1 10^3/ul (0-0.2); ABS Eosinophils 0.1 10^3/ul (0-0.6); ABS Monocytes 0.9 10^3/ul (0-0.8); ABS Neutrophils 7.2 10^3/ul (1.5-7.7); ABS Nucleated RBC 0 10^3/ul; Eosinophil % 0.7 % (0-6); Hematocrit 25 % (42-52); Hemoglobin 7.5 g/dl (14.0-18.0); Lymphocyte % 10.5 % (25-47); Mean Corpuscular HGB Conc 30 g/dl (31-36); Mean Corpuscular Hemoglobin 21 pg (27-31); Mean Corpuscular Volume 68 fL (80-94); Mean Platelet Volume 6 um3 (7.4-10.4); Nucleated Red Blood Cells % 0.1; Platelet Count 327 10^3/ul (150-450); Red Blood Count 3.62 10^6/ul (4.0-5.4); Red Cell Distribution Width 20 % (10.5-15); White Blood Count 9.2 10^3/ul (3.5-10.8)
[2017-05-27] MEDS: Mometasone/Formoter 100/5 MDI INH SCH ×2 (07:25→20:18)
--- NOTE | 2017-05-27 09:09 | PN ---
Subjective Date of Service: 05/27/17 Interval History: Patient seen and examined at bedside. Denies fever, chills, shortness of breath at rest (he hasn't ambulated this AM yet), chest discomfort, N/V/D. Pt reports chest congestion and frequent productive cough. States that he doesn't use oxygen at home and his O2 sat is usually 94% on room air. Family History: Unchanged from Admission Social History: Unchanged from Admission Past Medical History: Unchanged from Admission Objective Active Medications: Acetaminophen (Tylenol Tab*) 650 mg PO Q4H PRN Reason: FEVER/PAIN Albuterol/Ipratropium (Duoneb (Albuterol 2.5 Mg/Ipratropium 0.5 Mg)) 1 neb INH [id number] AWAKE MARK Amiodarone HCl (Cordarone Tab*) 200 mg PO BID MARK Ascorbic Acid (Vitamin C Tab*) 500 mg PO DAILY MARK Cyclobenzaprine HCl (Flexeril Tab*) 10 mg PO DAILY MARK Cyclosporine (Restasis 0.05% Ophth) 1 drop BOTH EYES BID MARK Fenofibrate (Tricor(Nf)) 145 mg PO QAM MARK Finasteride (Proscar Tab*) 5 mg PO QPM MARK Folic Acid (Folvite Tab*) 1 mg PO QAM MARK Gabapentin (Neurontin Cap(*)) 500 mg PO TID MARK Guaifenesin (Mucinex*) 600 mg PO BID MARK Doxycycline Hyclate 100 mg/ (Sodium Chloride) 250 mls @ 250 mls/hr IVPB Q12H [facility] Lactated Ringer's (Lactated Ringers 1000 Ml Bag*) 1,000 mls @ 75 mls/hr IV PER RATE [facility] Insulin Glargine (Lantus(*)) 32 units SUBCUT BEDTIME MARK Levothyroxine Sodium (Synthroid Tab*) 200 mcg PO DAILY@0600 MARK Lorazepam (Ativan Tab(*)) 1 mg PO TID PRN Reason: ANXIETY Methenamine Hippurate (Hiprex Tab*) 1 gm PO BID MARK Mometasone Furoate/Formoterol Fumar (Dulera 100/5 Mdi*) 2 puff INH BID MARK Morphine Sulfate (Ms Contin(*)) 30 mg PO DAILY MARK Oxycodone HCl (Roxycodone Tab*) 15 mg PO Q6H PRN Reason: PAIN - UNCONTROLLED Pantoprazole Sodium (Protonix Tab (Nf)) 40 mg PO BID MARK Pentoxifylline (Trental Cr Tab*) 400 mg PO TID MARK Polyethylene Glycol/Electrolytes (Miralax*) 17 gm PO DAILY PRN Reason: CONSTIPATION Polyvinyl Alcohol (Polyvinyl Alcohol 1.4% Opth*) 1 drop BOTH EYES DAILY PRN Reason: DRY EYE Rosuvastatin Calcium (Crestor (Nf)) 40 mg PO QPM MARK Tamsulosin HCl (Flomax Cap*) 0.4 mg PO BEDTIME MARK Vital Signs - 8 hr 05/27/17 05/27/17 05/27/17 01:20 01:59 03:51 Pulse Rate 82 71 Respiratory 18 26 17 Rate Blood Pressure 118/47 (mmHg) O2 Sat by Pulse 96 92 Oximetry 05/27/17 05/27/17 05:40 07:29 Pulse Rate 66 78 Respiratory 16 18 Rate Blood Pressure 124/56 (mmHg) O2 Sat by Pulse 97 95 Oximetry Oxygen Devices in Use Now: None, OxyMask Appearance: NAD, sitting up on the side of the bed Ears/Nose/Mouth/Throat: Mucous Membranes Moist Respiratory: Symmetrical Chest Expansion and Respiratory Effort, Clear to Auscultation - , diminished Cardiovascular: NL Sounds; No Murmurs; No JVD, RRR Abdominal: NL Sounds; No Tenderness; No Distention Extremities: - - Mild bilateral LE edema Skin: No Rash or Ulcers Neurological: Alert and Oriented x 3, NL Muscle Strength and Tone Lines/Tubes/Other Access: Clean, Dry and Intact Peripheral IV - site benign Nutrition: Taking PO's Result Diagrams: 05/27/17 06:50 05/27/17 06:50 Additional Lab and Data: Microbiology and Other Data: Microbiology 05/26/17 10:24 Stool Occult Blood (VERONICA) - Final Stool Assess/Plan/Problems-Billing Assessment: Mr. Bryant is a 76 yo male with PMH significant for paroxysmal afib, COPD, BPH , DM, HTN, anxiety, chronic pain, RA, CAD, IBS, esophageal CA, Barett's esophagus, and hypothyroidism, who presented to the emergency room with complaints of wheezing and shortness of breath. - Patient Problems (1) COPD exacerbation Code(s): J44.1 - CHRONIC OBSTRUCTIVE PULMONARY DISEASE W (ACUTE) EXACERBATION SNOMED Code(s): 781335858 Comment: - Shortness of breath improving - Mild hypoxic respiratory failure, continue supplemental O2 as needed - Afebrile and no leukocytosis - Declined steroids - Continue routine nebs, doxycycline and dulera - Will start mucinex (2) Anemia Code(s): D64.9 - ANEMIA, UNSPECIFIED SNOMED Code(s): 128783734 Comment: - Baseline appears to be around 10 - Suspect upper GI bleed, reports dark colored stools - Appreciate GI input - Plan for EDG tuesday once respiratory status has improved (3) GI bleed Code(s): K92.2 - GASTROINTESTINAL HEMORRHAGE, UNSPECIFIED SNOMED Code(s): 49254771 Comment: - Suspect upper GI bleed, Pt reports history of dark stools - Guaiac negative - HH stable - GI consult, input appreciated - Continue PPI, trend HH - Holding Xarelto - Plan for EDG tuesday once respiratory status has improved (4) CKD (chronic kidney disease) Code(s): N18.9 - CHRONIC KIDNEY DISEASE, UNSPECIFIED SNOMED Code(s): 884364192 Comment: - Acute on chronic - Stage 3 at baseline - Pt's creatinine is slightly above baseline - Hold Lasix while NPO and resume when able - Continue gentle IVFs overnight (5) Atrial fibrillation Code(s): I48.91 - UNSPECIFIED ATRIAL FIBRILLATION SNOMED Code(s): 81206320 Comment: - Regular rate at this time, HR controlled - Xarelto held in the setting of possible GI bleed - Continue amiodarone (6) Diabetes mellitus Code(s): E11.9 - TYPE 2 DIABETES MELLITUS WITHOUT COMPLICATIONS SNOMED Code(s) : 93278439 Comment: - Glucose 100-170's - Continue Lantus and SSI - Hold home glipizide (7) BPH (benign prostatic hyperplasia) Code(s): N40.0 - BENIGN PROSTATIC HYPERPLASIA WITHOUT LOWER URINRY TRACT SYMP SNOMED Code(s): 218360682 Comment: - Continue tamsulosin (as substitute for silodosin while in the hospital) and finasteride (8) Chronic pain Code(s): G89.29 - OTHER CHRONIC PAIN SNOMED Code(s): 39485175 Comment: - Continue home analgesics at this time (9) Anxiety Code(s): F41.9 - ANXIETY DISORDER, UNSPECIFIED SNOMED Code(s): 27169614 (10) Barretts esophagus Code(s): K22.70 - ESPINOZA'S ESOPHAGUS WITHOUT DYSPLASIA SNOMED Code(s): 406168705 Comment: - Continue omeprazole. (11) CAD (coronary artery disease) Code(s): I25.10 - ATHSCL HEART DISEASE OF [place] CORONARY ARTERY W/O ANG PCTRS SNOMED Code(s): 97725462 Comment: - Asymptomatic - Hold ASA in setting of posisble GI bleed - Continue statin (12) Esophageal cancer Comment: - HX (13) IBS (irritable bowel syndrome) Current Visit: No Status: Chronic (14) PVD (peripheral vascular disease) Code(s): I73.9 - PERIPHERAL VASCULAR DISEASE, UNSPECIFIED SNOMED Code(s): 894962935 Comment: - Hold ASA and plavix in setting of possible GI bleed and resume when able (15) DVT prophylaxis Code(s): HKE2075 - SNOMED Code(s): 586835934 Comment: - SCDs only in the setting of a possible GI bleed (16) Full code status Code(s): Z78.9 - OTHER SPECIFIED HEALTH STATUS SNOMED Code(s): 447353381 Status and Disposition: Inpatient. Discharge to home when medically stable, possibly Tuesday after EGD.
[2017-05-27] MEDS: Gabapentin CAP(*) 100 MG PO SCH ×3 (09:43→20:58)
[2017-05-27] MEDS: Folic Acid TAB* 1 MG PO SCH (09:44)
[2017-05-27] MEDS: Cyclobenzaprine TAB* 10 MG PO SCH (09:44)
[2017-05-27] MEDS: guaiFENesin ER TAB 600 MG PO SCH ×2 (09:44→20:58)
[2017-05-27] MEDS: Amiodarone TAB* 200 MG PO SCH ×2 (09:44→20:59)
[2017-05-27] MEDS: Morphine TAB Extended Release (*) 30 MG TAB.ER PO SCH ×2 (09:44→21:52)
[2017-05-27] MEDS: Ascorbic Acid TAB* 500 MG PO SCH (09:44)
[2017-05-27] MEDS: CMCS: Pantoprazole TAB (NF) 40 MG TAB PO SCH ×2 (09:45→20:56)
[2017-05-27] MEDS: Methenamine Hippurate TAB* 1 GM TAB PO SCH ×2 (09:45→20:56)
[2017-05-27] MEDS: CMC: Cyclosporine 0.05% OPHTH (NF) 0.4 ML VIAL BOTH EYES SCH ×2 (09:45→21:04)
[2017-05-27] MEDS: Pentoxifylline CR TAB* 400 MG PO SCH ×3 (09:45→20:59)
[2017-05-27] MEDS: CMCS: Fenofibrate(NF) 145 MG TAB PO SCH (09:45)
[2017-05-27] MEDS: DOXYcycline IV* 100 MG in NS 0.9% 250 ML* 250 ML IVPB SCH ×2 (11:18→23:32)
[2017-05-27] MEDS: Finasteride TAB* 5 MG PO SCH (18:01)
[2017-05-27] MEDS: CMCS: Rosuvastatin (NF) 20 MG TAB PO SCH (18:01)
[2017-05-27] MEDS: Tamsulosin CAP* 0.4 MG PO SCH (20:58)
[2017-05-27] MEDS: Insulin GLARGINE(*) 1 UNITS UNIT SUBCUT SCH (21:14)
[2017-05-27] MEDS ORDERED: Benzocaine/Menthol LOZ* 1 LOZENGE PO PRN (21:35)
[2017-05-27] MEDS: Senna TAB PO PRN (21:52)
[2017-05-28] MEDS: LORazepam TAB(*) 1 MG PO PRN (00:34)
[2017-05-28] MEDS: Albuterol/Ipratropium NEB.SOL* Albuterol 2.5 MG/Ipratropium 0.5 MG 3 ML INH SCH ×4 (01:24→20:20)
[2017-05-28] MEDS: Levothyroxine TAB* 100 MCG TAB PO SCH (05:48)
[2017-05-28 06:04] LABS: ABS Basophils 0 10^3/ul (0-0.2); ABS Eosinophils 0.3 10^3/ul (0-0.6); ABS Lymphocytes 1.1 10^3/ul (1.0-4.8); ABS Monocytes 0.6 10^3/ul (0-0.8); ABS Neutrophils 2.8 10^3/ul (1.5-7.7); ABS Nucleated RBC 0 10^3/ul; Eosinophil % 6.4 % (0-6); Hematocrit 26 % (42-52); Hemoglobin 7.5 g/dl (14.0-18.0); Lymphocyte % 22.4 % (25-47); Mean Corpuscular HGB Conc 30 g/dl (31-36); Mean Corpuscular Hemoglobin 20 pg (27-31); Mean Corpuscular Volume 69 fL (80-94); Mean Platelet Volume 7 um3 (7.4-10.4); Nucleated Red Blood Cells % 0.1; Platelet Count 315 10^3/ul (150-450); Red Blood Count 3.69 10^6/ul (4.0-5.4); Red Cell Distribution Width 20 % (10.5-15); White Blood Count 4.9 10^3/ul (3.5-10.8)
[2017-05-28 06:24] LABS: EGFR Non-African American 47.8 (>60)
[2017-05-28] MEDS: Mometasone/Formoter 100/5 MDI INH SCH ×2 (07:49→20:20)
[2017-05-28] MEDS ORDERED: Dextrose 50% Syringe 50 ML* 25 GM/50 ML SYRINGE IV PUSH PRN (08:16)
[2017-05-28] MEDS: CMC: Cyclosporine 0.05% OPHTH (NF) 0.4 ML VIAL BOTH EYES SCH ×2 (08:16→21:55)
[2017-05-28] MEDS: CMCS: Fenofibrate(NF) 145 MG TAB PO SCH (08:16)
[2017-05-28] MEDS: Gabapentin CAP(*) 100 MG PO SCH ×3 (08:17→21:49)
[2017-05-28] MEDS: guaiFENesin ER TAB 600 MG PO SCH ×2 (08:17→21:49)
[2017-05-28] MEDS: Amiodarone TAB* 200 MG PO SCH ×2 (08:17→21:49)
[2017-05-28] MEDS: Folic Acid TAB* 1 MG PO SCH (08:17)
[2017-05-28] MEDS: Pentoxifylline CR TAB* 400 MG PO SCH ×3 (08:17→21:50)
[2017-05-28] MEDS: CMCS: Pantoprazole TAB (NF) 40 MG TAB PO SCH ×2 (08:17→21:50)
[2017-05-28] MEDS: Ascorbic Acid TAB* 500 MG PO SCH (08:17)
[2017-05-28] MEDS: Morphine TAB Extended Release (*) 30 MG TAB.ER PO SCH ×2 (08:17→21:49)
[2017-05-28] MEDS: Cyclobenzaprine TAB* 10 MG PO SCH (08:18)
[2017-05-28] MEDS: Methenamine Hippurate TAB* 1 GM TAB PO SCH ×2 (08:18→21:50)
--- NOTE | 2017-05-28 10:42 | PN ---
GASTROENTEROLOGY FOLLOWUP NOTE: DATE OF FOLLOWUP: 05/27/17. SUBJECTIVE: Mr. Bryant has ongoing issues with his COPD exacerbation. His oxygenation is somewhat improved today, but he still is experiencing fairly tight wheezing and shortness of breath. His oxy genation on O2 air this morning according to the hospitalist was 90. He normally runs around 94. Th e patient has a history of esophageal cancer and had been on Xarelto for atrial fibrillation. He was undergoing upper endoscopies every year, but has not had one in the last 4 years. He was admitted wi th anemia with a hemoglobin in the range of 7. His Xarelto has been held for 2 days. OBJECTIVE: Temperature is 97.6, heart rate is 65, blood pressure 114/42, O2 sat of 95% on 5 liters. HEENT Exam: There is no scleral icterus. Heart is regular rate and rhythm. Lungs have significant expiratory wheezing throughout. Abdomen is soft. There is no tenderness. Bowel sounds are present . PERTINENT LABORATORY STUDIES: Include a white blood count of 9.2, hemoglobin of 7.5, down from 7.9 l ast night and hematocrit of 25 down from 26. His MCV is very low at 68. IMPRESSION: The patient has had no signs of active bleeding. RECOMMENDATIONS: I did discuss the case with the patient's hospitalist this morning. Given his ongo ing exacerbation of COPD, it is felt that it is best to monitor his blood count over the weekend and tune up his COPD exacerbation with hopeful significant improvement in his respiratory status and plan for upper endoscopy on Tuesday. The patient should be made n.p.o. after midnight on Tuesday night. [id number]/[facility] #: [id number]
[2017-05-28] MEDS: DOXYcycline IV* 100 MG in NS 0.9% 250 ML* 250 ML IVPB SCH ×2 (11:05→22:47)
[2017-05-28] MEDS: Insulin LISPRO* 1 UNITS UNIT SUBCUT SCH ×3 (12:56→21:56)
--- NOTE | 2017-05-28 15:53 | PN ---
Subjective Date of Service: 05/28/17 Interval History: Pt is feeling ok. He denies SOB but states he continues to have frequent cough. He has not been able to bring up any sputum recently but earlier today he states he was bringing up quite a bit. Family History: Unchanged from Admission Social History: Unchanged from Admission Past Medical History: Unchanged from Admission Objective Active Medications: Acetaminophen (Tylenol Tab*) 650 mg PO Q4H PRN PRN Reason: FEVER/PAIN Albuterol/Ipratropium (Duoneb (Albuterol 2.5 Mg/Ipratropium 0.5 Mg)) 1 neb INH [id number] AWAKE [facility] Last Admin: 05/28/17 13:46 Dose: 1 neb Amiodarone HCl (Cordarone Tab*) 200 mg PO BID [facility] Last Admin: 05/28/17 08:17 Dose: 200 mg Ascorbic Acid (Vitamin C Tab*) 500 mg PO DAILY [facility] Last Admin: 05/28/17 08:17 Dose: 500 mg Cyclobenzaprine HCl (Flexeril Tab*) 10 mg PO DAILY [facility] Last Admin: 05/28/17 08:18 Dose: 10 mg Cyclosporine (Restasis 0.05% Oph) 1 drop BOTH EYES BID [facility] PRN Reason: Protocol Last Admin: 05/28/17 08:16 Dose: 1 drop Dextrose (D50w Syringe 50 Ml*) 12.5 gm IV PUSH .FOR FS < 60 - SS PRN PRN Reason: FS < 60 Docusate Sodium (Colace Cap*) 200 mg PO DAILY PRN PRN Reason: CONSTIPATION Fenofibrate (Tricor(Nf)) 145 mg PO QAM [facility] PRN Reason: Protocol Last Admin: 05/28/17 08:16 Dose: 145 mg Finasteride (Proscar Tab*) 5 mg PO QPM [facility] Last Admin: 05/27/17 18:01 Dose: 5 mg Folic Acid (Folvite Tab*) 1 mg PO QAM [facility] Last Admin: 05/28/17 08:17 Dose: 1 mg Gabapentin (Neurontin Cap(*)) 500 mg PO TID [facility] Last Admin: 05/28/17 12:56 Dose: 500 mg Guaifenesin (Mucinex*) 600 mg PO BID [facility] Last Admin: 05/28/17 08:17 Dose: 600 mg Doxycycline Hyclate 100 mg/ (Sodium Chloride) 250 mls @ 250 mls/hr IVPB Q12H [facility] Last Admin: 05/28/17 11:05 Dose: 250 mls/hr Lactated Ringer's (Lactated Ringers 1000 Ml Bag*) 1,000 mls @ 75 mls/hr IV PER RATE [facility] Last Admin: 05/28/17 14:34 Dose: 75 mls/hr Insulin Glargine (Lantus(*)) 32 units SUBCUT BEDTIME [facility] Last Admin: 05/27/17 21:14 Dose: 32 units Insulin Human Lispro (Humalog*) 0 units SUBCUT ACHS [facility] PRN Reason: Protocol Last Admin: 05/28/17 12:56 Dose: 6 units Levothyroxine Sodium (Synthroid Tab*) 250 mcg PO DAILY@0600 [facility] Lorazepam (Ativan Tab(*)) 1 mg PO TID PRN PRN Reason: ANXIETY Last Admin: 05/28/17 00:34 Dose: 1 mg Methenamine Hippurate (Hiprex Tab*) 1 gm PO BID [facility] Last Admin: 05/28/17 08:18 Dose: 1 gm Mometasone Furoate/Formoterol Fumar (Dulera 100/5 Mdi*) 2 puff INH BID [facility] Last Admin: 05/28/17 07:49 Dose: 2 puff Morphine Sulfate (Ms Contin(*)) 30 mg PO Q12H [facility] Last Admin: 05/28/17 08:17 Dose: 30 mg Oxycodone HCl (Roxycodone Tab*) 15 mg PO Q6H PRN PRN Reason: PAIN - UNCONTROLLED Last Admin: 05/26/17 23:54 Dose: 15 mg Pantoprazole Sodium (Protonix Tab (Nf)) 40 mg PO BID [facility] Last Admin: 05/28/17 08:17 Dose: 40 mg Pentoxifylline (Trental Cr Tab*) 400 mg PO TID [facility] Last Admin: 05/28/17 12:56 Dose: 400 mg Polyethylene Glycol/Electrolytes (Miralax*) 17 gm PO DAILY PRN PRN Reason: CONSTIPATION Polyvinyl Alcohol (Polyvinyl Alcohol 1.4% Opth*) 1 drop BOTH EYES DAILY PRN PRN Reason: DRY EYE Last Admin: 05/27/17 21:04 Dose: 1 drop Rosuvastatin Calcium (Crestor (Nf)) 40 mg PO QPM [facility] Last Admin: 05/27/17 18:01 Dose: 40 mg Senna (Senokot Tab*) 2 tab PO BEDTIME PRN PRN Reason: CONSTIPATION Last Admin: 05/27/17 21:52 Dose: 2 tab Tamsulosin HCl (Flomax Cap*) 0.4 mg PO BEDTIME [facility] Last Admin: 05/27/17 20:58 Dose: 0.4 mg Throat Lozenges (Chloraseptic Morelia*) 1 morelia PO Q6H PRN PRN Reason: SORE THROAT Last Admin: 05/27/17 21:53 Dose: 1 morelia Vital Signs - 8 hr 05/28/17 05/28/17 05/28/17 07:53 08:17 08:18 Temperature Pulse Rate 64 Respiratory 16 24 24 Rate Blood Pressure (mmHg) O2 Sat by Pulse 92 Oximetry 05/28/17 05/28/17 05/28/17 10:58 11:09 12:56 Temperature 97.7 F Pulse Rate 67 Respiratory 22 16 20 Rate Blood Pressure 130/50 (mmHg) O2 Sat by Pulse 95 Oximetry 05/28/17 05/28/17 13:48 14:35 Temperature Pulse Rate 62 Respiratory 16 20 Rate Blood Pressure (mmHg) O2 Sat by Pulse 99 Oximetry Oxygen Devices in Use Now: None Appearance: Elderly male sitting up in a chair, NAD Eyes: No Scleral Icterus Ears/Nose/Mouth/Throat: Mucous Membranes Moist Respiratory: Symmetrical Chest Expansion and Respiratory Effort, - - bibasilar crackles Cardiovascular: NL Sounds; No Murmurs; No JVD, RRR, - - trace-1+ LE edema Abdominal: NL Sounds; No Tenderness; No Distention Extremities: No Clubbing, Cyanosis Skin: No Rash or Ulcers, No Nodules or Sclerosis Neurological: Alert and Oriented x 3 Result Diagrams: 05/28/17 05:19 05/28/17 05:19 Additional Lab and Data: Microbiology and Other Data: Microbiology 05/26/17 10:24 Stool Occult Blood (VERONICA) - Final Stool Assess/Plan/Problems-Billing Mr. Bryant is a 76 yo male with PMH significant for paroxysmal afib, COPD, BPH , DM, HTN, anxiety, chronic pain, RA, CAD, IBS, esophageal CA, Barett's esophagus, and hypothyroidism, who presented to the emergency room with complaints of wheezing and shortness of breath. - Patient Problems (1) COPD exacerbation Current Visit: Yes Status: Acute Code(s): J44.1 - CHRONIC OBSTRUCTIVE PULMONARY DISEASE W (ACUTE) EXACERBATION SNOMED Code(s): 409641711 Comment: No significant SOB but he continues to c/o cough. Will continue doxycycline for now. Continue nebs, dulera and mucinex. Overall he appears to be improving. He is not needing supplemental O2 any longer. (2) Anemia Current Visit: Yes Status: Acute Code(s): D64.9 - ANEMIA, UNSPECIFIED SNOMED Code(s): 772815025 Comment: Hb around 10 but now stable around 7.5. It is thought that the patient may be having/had an upper GI bleed given his reported dark colored stools. Plan is for EGD Tuesday. (3) CKD (chronic kidney disease) Current Visit: Yes Status: Chronic Code(s): N18.9 - CHRONIC KIDNEY DISEASE, UNSPECIFIED SNOMED Code(s): 694041976 Comment: Pt's creatinine is at baseline. Will continue to monitor. (4) Diabetes mellitus Current Visit: Yes Status: Chronic Code(s): E11.9 - TYPE 2 DIABETES MELLITUS WITHOUT COMPLICATIONS SNOMED Code(s): 45028192 Comment: Sugars are moderately elevated off glipizide. After EGD can resume glipizide. Continue lantus and sliding scale. (5) Atrial fibrillation Current Visit: Yes Status: Chronic Code(s): I48.91 - UNSPECIFIED ATRIAL FIBRILLATION SNOMED Code(s): 08734105 Comment: HR is controlled. Continue amiodarone. Continue to hold xarelto while being worked up for GI bleed. (6) BPH (benign prostatic hyperplasia) Current Visit: Yes Status: Chronic Code(s): N40.0 - BENIGN PROSTATIC HYPERPLASIA WITHOUT LOWER URINRY TRACT SYMP SNOMED Code(s): 374921443 Comment: Continue tamsulosin (as substitute for silodosin while in the hospital) and finasteride (7) DVT prophylaxis Current Visit: Yes Status: Acute Code(s): LRR1593 - SNOMED Code(s): 608060579 Comment: On hold while working up possible GI bleed (8) Full code status Current Visit: Yes Status: Acute Onset Date: 05/21/14 Code(s): Z78.9 - OTHER SPECIFIED HEALTH STATUS SNOMED Code(s): 784406141 Status and Disposition: .
[2017-05-28] MEDS: Finasteride TAB* 5 MG PO SCH (17:55)
[2017-05-28] MEDS: CMCS: Rosuvastatin (NF) 20 MG TAB PO SCH (17:55)
[2017-05-28] MEDS: Docusate CAP* 100 MG PO PRN (18:03)
[2017-05-28] MEDS: Senna TAB PO PRN (18:03)
[2017-05-28] MEDS: Silver Sulfadiazine 1%* 20 GM TOPICAL SCH (19:50)
[2017-05-28] MEDS: Tamsulosin CAP* 0.4 MG PO SCH (21:49)
[2017-05-28] MEDS: Insulin GLARGINE(*) 1 UNITS UNIT SUBCUT SCH (21:57)
[2017-05-29] MEDS: Albuterol/Ipratropium NEB.SOL* Albuterol 2.5 MG/Ipratropium 0.5 MG 3 ML INH SCH ×5 (01:55→19:29)
[2017-05-29] MEDS: Levothyroxine TAB* 100 MCG TAB PO SCH (05:40)
[2017-05-29 06:00] LABS: EGFR Non-African American 50.7 (>60)
[2017-05-29 06:02] LABS: Hematocrit 25 % (42-52); Hemoglobin 7.7 g/dl (14.0-18.0); Mean Corpuscular HGB Conc 31 g/dl (31-36); Mean Corpuscular Hemoglobin 21 pg (27-31); Mean Corpuscular Volume 69 fL (80-94); Mean Platelet Volume 6 um3 (7.4-10.4); Platelet Count 352 10^3/ul (150-450); Red Blood Count 3.68 10^6/ul (4.0-5.4); Red Cell Distribution Width 19 % (10.5-15); White Blood Count 8.3 10^3/ul (3.5-10.8)
[2017-05-29] MEDS: Mometasone/Formoter 100/5 MDI INH SCH ×2 (07:28→19:29)
[2017-05-29] MEDS: Insulin LISPRO* 1 UNITS UNIT SUBCUT SCH ×4 (08:03→20:55)
[2017-05-29] MEDS: Silver Sulfadiazine 1%* 20 GM TOPICAL SCH (09:48)
[2017-05-29] MEDS: Gabapentin CAP(*) 100 MG PO SCH ×3 (09:49→20:49)
[2017-05-29] MEDS: Docusate CAP* 100 MG PO PRN (09:49)
[2017-05-29] MEDS: guaiFENesin ER TAB 600 MG PO SCH ×2 (09:50→20:51)
[2017-05-29] MEDS: Methenamine Hippurate TAB* 1 GM TAB PO SCH ×2 (09:50→20:52)
[2017-05-29] MEDS: Morphine TAB Extended Release (*) 30 MG TAB.ER PO SCH ×2 (09:50→20:51)
[2017-05-29] MEDS: Ascorbic Acid TAB* 500 MG PO SCH (09:50)
[2017-05-29] MEDS: Cyclobenzaprine TAB* 10 MG PO SCH (09:50)
[2017-05-29] MEDS: Amiodarone TAB* 200 MG PO SCH ×2 (09:50→20:51)
[2017-05-29] MEDS: Pentoxifylline CR TAB* 400 MG PO SCH ×3 (09:50→20:52)
[2017-05-29] MEDS: Folic Acid TAB* 1 MG PO SCH (09:50)
[2017-05-29] MEDS: CMCS: Pantoprazole TAB (NF) 40 MG TAB PO SCH ×2 (09:50→20:49)
[2017-05-29] MEDS: CMC: Cyclosporine 0.05% OPHTH (NF) 0.4 ML VIAL BOTH EYES SCH ×2 (09:52→20:51)
[2017-05-29] MEDS: CMCS: Fenofibrate(NF) 145 MG TAB PO SCH (09:53)
[2017-05-29] MEDS: DOXYcycline IV* 100 MG in NS 0.9% 250 ML* 250 ML IVPB SCH ×2 (10:45→23:20)
--- NOTE | 2017-05-29 15:30 | PN ---
Subjective Date of Service: 05/29/17 Interval History: Patient feeling much better today. Able to get up to BR with minimal SOB. Has epigastric pain when coughing. No CP, N/V, F/C, dysuria, DAVISON, or other pain. Patient unable to have a BM today, but otherwise states that his most recent stool was black which is his baseline. Patient excited for EGD in AM due to delayed surveillance for esophagus. Family History: Unchanged from Admission Social History: Unchanged from Admission Past Medical History: Unchanged from Admission Objective Active Medications: Acetaminophen (Tylenol Tab*) 650 mg PO Q4H PRN PRN Reason: FEVER/PAIN Albuterol/Ipratropium (Duoneb (Albuterol 2.5 Mg/Ipratropium 0.5 Mg)) 1 neb INH [id number] AWAKE [facility] Last Admin: 05/29/17 13:21 Dose: 1 neb Amiodarone HCl (Cordarone Tab*) 200 mg PO BID [facility] Last Admin: 05/29/17 09:50 Dose: 200 mg Ascorbic Acid (Vitamin C Tab*) 500 mg PO DAILY [facility] Last Admin: 05/29/17 09:50 Dose: 500 mg Cyclobenzaprine HCl (Flexeril Tab*) 10 mg PO DAILY [facility] Last Admin: 05/29/17 09:50 Dose: 10 mg Cyclosporine (Restasis 0.05% [facility]) 1 drop BOTH EYES BID [facility] PRN Reason: Protocol Last Admin: 05/29/17 09:52 Dose: 1 drop Dextrose (D50w Syringe 50 Ml*) 12.5 gm IV PUSH .FOR FS < 60 - SS PRN PRN Reason: FS < 60 Docusate Sodium (Colace Cap*) 200 mg PO DAILY PRN PRN Reason: CONSTIPATION Last Admin: 05/29/17 09:49 Dose: 200 mg Fenofibrate (Tricor(Nf)) 145 mg PO QAM [facility] PRN Reason: Protocol Last Admin: 05/29/17 09:53 Dose: 145 mg Finasteride (Proscar Tab*) 5 mg PO QPM [facility] Last Admin: 05/28/17 17:55 Dose: 5 mg Folic Acid (Folvite Tab*) 1 mg PO QAM [facility] Last Admin: 05/29/17 09:50 Dose: 1 mg Gabapentin (Neurontin Cap(*)) 500 mg PO TID [facility] Last Admin: 05/29/17 14:22 Dose: 500 mg Guaifenesin (Mucinex*) 600 mg PO BID [facility] Last Admin: 05/29/17 09:50 Dose: 600 mg Doxycycline Hyclate 100 mg/ (Sodium Chloride) 250 mls @ 250 mls/hr IVPB Q12H [facility] Last Admin: 05/29/17 10:45 Dose: 250 mls/hr Lactated Ringer's (Lactated Ringers 1000 Ml Bag*) 1,000 mls @ 75 mls/hr IV PER RATE [facility] Last Admin: 05/29/17 10:50 Dose: 75 mls/hr Insulin Glargine (Lantus(*)) 32 units SUBCUT BEDTIME [facility] Last Admin: 05/28/17 21:57 Dose: 32 units Insulin Human Lispro (Humalog*) 0 units SUBCUT ACHS [facility] PRN Reason: Protocol Last Admin: 05/29/17 12:12 Dose: 3 units Levothyroxine Sodium (Synthroid Tab*) 250 mcg PO DAILY@0600 [facility] Last Admin: 05/29/17 05:40 Dose: 250 mcg Lorazepam (Ativan Tab(*)) 1 mg PO TID PRN PRN Reason: ANXIETY Last Admin: 05/28/17 00:34 Dose: 1 mg Methenamine Hippurate (Hiprex Tab*) 1 gm PO BID [facility] Last Admin: 05/29/17 09:50 Dose: 1 gm Mometasone Furoate/Formoterol Fumar (Dulera 100/5 Mdi*) 2 puff INH BID [facility] Last Admin: 05/29/17 07:28 Dose: 2 puff Morphine Sulfate (Ms Contin(*)) 30 mg PO Q12H [facility] Last Admin: 05/29/17 09:50 Dose: 30 mg Oxycodone HCl (Roxycodone Tab*) 15 mg PO Q6H PRN PRN Reason: PAIN - UNCONTROLLED Last Admin: 05/26/17 23:54 Dose: 15 mg Pantoprazole Sodium (Protonix Tab (Nf)) 40 mg PO BID [facility] Last Admin: 05/29/17 09:50 Dose: 40 mg Pentoxifylline (Trental Cr Tab*) 400 mg PO TID [facility] Last Admin: 05/29/17 14:22 Dose: 400 mg Polyethylene Glycol/Electrolytes (Miralax*) 17 gm PO DAILY PRN PRN Reason: CONSTIPATION Last Admin: 05/29/17 09:49 Dose: 17 gm Polyvinyl Alcohol (Polyvinyl Alcohol 1.4% Opth*) 1 drop BOTH EYES DAILY PRN PRN Reason: DRY EYE Last Admin: 05/27/17 21:04 Dose: 1 drop Rosuvastatin Calcium (Crestor (Nf)) 40 mg PO QPM [facility] Last Admin: 05/28/17 17:55 Dose: 40 mg Senna (Senokot Tab*) 2 tab PO BEDTIME PRN PRN Reason: CONSTIPATION Last Admin: 05/28/17 18:03 Dose: 2 tab Silver Sulfadiazine (Silvadine 1%*) 1 applic TOPICAL DAILY [facility] Last Admin: 05/29/17 09:48 Dose: Not Given Tamsulosin HCl (Flomax Cap*) 0.4 mg PO BEDTIME [facility] Last Admin: 05/28/17 21:49 Dose: 0.4 mg Throat Lozenges (Chloraseptic Morelia*) 1 morelia PO Q6H PRN PRN Reason: SORE THROAT Last Admin: 05/27/17 21:53 Dose: 1 morelia Vital Signs - 8 hr 05/29/17 05/29/17 05/29/17 07:55 08:00 09:49 Temperature 97.7 F Pulse Rate 60 Respiratory 16 18 22 Rate Blood Pressure 143/48 (mmHg) O2 Sat by Pulse 94 Oximetry 05/29/17 05/29/17 05/29/17 09:50 11:56 12:09 Temperature 98.4 F Pulse Rate 62 Respiratory 22 16 20 Rate Blood Pressure 141/58 (mmHg) O2 Sat by Pulse 97 Oximetry 05/29/17 05/29/17 13:25 14:22 Temperature Pulse Rate 88 Respiratory 20 Rate Blood Pressure (mmHg) O2 Sat by Pulse Oximetry Oxygen Devices in Use Now: None Appearance: Patient is a 76yo male who appears stated age sitting in the chair in NAD. Eyes: No Scleral Icterus, PERRLA Ears/Nose/Mouth/Throat: NL Teeth, Lips, Gums, Clear Oropharnyx, Mucous Membranes Moist Neck: NL Appearance and Movements; NL JVP, Trachea Midline Respiratory: Symmetrical Chest Expansion and Respiratory Effort, Clear to Auscultation, - - Diminished throughout. Cardiovascular: NL Sounds; No Murmurs; No JVD, RRR, No Edema Abdominal: NL Sounds; No Tenderness; No Distention, No Hepatosplenomegaly Lymphatic: No Cervical Adenopathy Extremities: No Edema, No Clubbing, Cyanosis Skin: No Rash or Ulcers, No Nodules or Sclerosis Neurological: Alert and Oriented x 3, NL Sensation, NL Muscle Strength and Tone , - - CN II-XII intact. Result Diagrams: 05/29/17 05:34 05/29/17 05:34 Additional Lab and Data: Microbiology and Other Data: Microbiology 05/26/17 10:24 Stool Occult Blood (VERONICA) - Final Stool Assess/Plan/Problems-Billing Mr. Bryant is a 76 yo male with PMH significant for paroxysmal afib, COPD, BPH , DM, HTN, anxiety, chronic pain, RA, CAD, IBS, esophageal CA, Barett's esophagus, and hypothyroidism, who presented to the emergency room with complaints of wheezing and shortness of breath. Much improved on ABX, Nebs. Complaints of jail black stools. Plan with GI for EGD in AM. - Patient Problems (1) Anemia Current Visit: Yes Status: Acute Code(s): D64.9 - ANEMIA, UNSPECIFIED SNOMED Code(s): 729568507 Comment: Hb around 10 but now stable around 7.5. It is thought that the patient may be having/had an upper GI bleed given his reported dark colored stools. Plan is for EGD Tuesday. Patient's respiratory status much improved. Medically optimized. Moderate risk for low risk procedure. Iron deficient. Off iron for 6 months. Will resume iron after EGD to avoid causing black stools before a possible source is found. (2) COPD exacerbation Current Visit: Yes Status: Acute Code(s): J44.1 - CHRONIC OBSTRUCTIVE PULMONARY DISEASE W (ACUTE) EXACERBATION SNOMED Code(s): 652332390 Comment: No significant SOB but he continues to c/o non-productive cough. Will continue doxycycline for now for anti-inflammatory properties. Continue nebs, dulera and mucinex. Improving, off oxygen for 1.5 days now. (3) Atrial fibrillation Current Visit: Yes Status: Chronic Code(s): I48.91 - UNSPECIFIED ATRIAL FIBRILLATION SNOMED Code(s): 91074836 Comment: HR is controlled. Continue amiodarone. Continue to hold xarelto while being worked up for GI bleed. (4) BPH (benign prostatic hyperplasia) Current Visit: Yes Status: Chronic Code(s): N40.0 - BENIGN PROSTATIC HYPERPLASIA WITHOUT LOWER URINRY TRACT SYMP SNOMED Code(s): 128759249 Comment: Continue tamsulosin (as substitute for silodosin while in the hospital) and finasteride (5) CKD (chronic kidney disease) Current Visit: Yes Status: Chronic Code(s): N18.9 - CHRONIC KIDNEY DISEASE, UNSPECIFIED SNOMED Code(s): 724821694 Comment: Pt's creatinine is at baseline. Will continue to monitor. (6) Diabetes mellitus Current Visit: Yes Status: Chronic Code(s): E11.9 - TYPE 2 DIABETES MELLITUS WITHOUT COMPLICATIONS SNOMED Code(s): 81660226 Comment: Sugars are moderately elevated off glipizide. After EGD can resume glipizide. Continue lantus and sliding scale. (7) DVT prophylaxis Current Visit: Yes Status: Acute Code(s): WBK0736 - SNOMED Code(s): 930018846 Comment: On hold while working up possible GI bleed (8) Full code status Current Visit: Yes Status: Acute Onset Date: 05/21/14 Code(s): Z78.9 - OTHER SPECIFIED HEALTH STATUS SNOMED Code(s): 543727841 Status and Disposition: Inpatient. Pending EGD in AM.
[2017-05-29] MEDS: CMCS: Rosuvastatin (NF) 20 MG TAB PO SCH (17:43)
[2017-05-29] MEDS: Finasteride TAB* 5 MG PO SCH (17:43)
[2017-05-29] MEDS: Insulin GLARGINE(*) 1 UNITS UNIT SUBCUT SCH (20:54)
[2017-05-29] MEDS: Tamsulosin CAP* 0.4 MG PO SCH (21:03)
[2017-05-29] MEDS: oxyCODONE TAB* 5 MG TAB PO PRN (23:52)
[2017-05-29] MEDS: Senna TAB PO PRN (23:52)
[2017-05-30] MEDS: Albuterol/Ipratropium NEB.SOL* Albuterol 2.5 MG/Ipratropium 0.5 MG 3 ML INH SCH ×4 (01:05→19:29)
[2017-05-30] MEDS: Levothyroxine TAB* 100 MCG TAB PO SCH (05:23)
[2017-05-30 06:47] LABS: EGFR Non-African American 47.4 (>60)
[2017-05-30 07:01] LABS: ABS Basophils 0.1 10^3/ul (0-0.2); ABS Eosinophils 0.4 10^3/ul (0-0.6); ABS Lymphocytes 1.1 10^3/ul (1.0-4.8); ABS Monocytes 0.6 10^3/ul (0-0.8); ABS Neutrophils 4.3 10^3/ul (1.5-7.7); ABS Nucleated RBC 0 10^3/ul; Eosinophil % 5.5 % (0-6); Hematocrit 26 % (42-52); Hemoglobin 7.5 g/dl (14.0-18.0); Lymphocyte % 17.8 % (25-47); Mean Corpuscular HGB Conc 29 g/dl (31-36); Mean Corpuscular Hemoglobin 21 pg (27-31); Mean Corpuscular Volume 71 fL (80-94); Mean Platelet Volume 7 um3 (7.4-10.4); Nucleated Red Blood Cells % 0.1; Platelet Count 320 10^3/ul (150-450); Red Blood Count 3.62 10^6/ul (4.0-5.4); Red Cell Distribution Width 20 % (10.5-15); White Blood Count 6.4 10^3/ul (3.5-10.8)
[2017-05-30] MEDS: Mometasone/Formoter 100/5 MDI INH SCH ×2 (07:32→19:29)
--- NOTE | 2017-05-30 08:05 | CONS ---
AMENDED REPORT - LOCKED ON COMPUTER, UNABLE TO RECALL OPEN GASTROENTEROLOGY CONSULTATION REPORT: DATE OF CONSULT: 05/26/17 HOSPITAL PROVIDER: Susu Lomeli NP PRIMARY CARE PHYSICIAN: Dr. Jamie Cha. REASON FOR CONSULT: Anemia, dark stools, and history of esophageal carcinoma. HISTORY OF PRESENT ILLNESS: Mr. Bryant is a pleasant 76-year-old gentleman with multiple comorbidities including paroxysmal atrial fibrillation, on Xarelto , COPD, diabetes mellitus, type 2, hypertension, anxiety, chronic pain, recurrent C. diff, coronary artery disease, Batista's esophagus with esophageal carcinoma, status post resection, who presented to the emergency room with shortness of breath and fatigue. He was admitted for further workup of these symptoms. Overnight, it was noted that he became slightly anemic from a hemoglobin of 8.3 to a hemoglobin of 7.3. Gastroenterology was consulted for further evaluation. He personally denies melena and admits to chronic dark stools for several years. Denies any hematochezia. He had a colonoscopy by Dr. Barragan on 08/27/15 revealing 2 small polyps. He follows a press setter in [place] for his surveillance endoscopies from his previous history of esophageal carcinoma. He denies dysphagia and admits to a good appetite. No recent weight changes. Denies hematemesis. He is currently on Xarelto therapy as an outpatient for his atrial fibrillation and coronary artery disease. PAST MEDICAL HISTORY: 1. Paroxysmal atrial fibrillation. 2. COPD. 3. BPH. 4. Diabetes mellitus, type 2. 5. Hyperlipidemia. 6. Anxiety. 7. Chronic pain. 8. Rheumatoid arthritis. 9. Recurrent C. diff. 10. Coronary artery disease. 11. Irritable bowel syndrome. 12. Esophageal cancer. 13. Batista's esophagus. 14. Hypothyroidism. PAST SURGICAL HISTORY: 1. Cardiac stent placement x3. 2. Excision of esophageal carcinoma. 3. Appendectomy. 4. Cataract extractions. 5. Colonoscopy in 2016. 6. Several upper endoscopies. MEDICATIONS: 1. Tylenol as needed. 2. Amiodarone. 3. DuoNebs. 4. Vitamin C. 5. Flexeril. 6. Restasis. 7. TriCor. 8. Proscar. 9. Folvite. 10. Lasix. 11. Neurontin. 12. Lantus. 13. Synthroid. 14. Ativan. 15. Hiprex. 16. Dulera. 17. MS Contin. 18. Roxicodone. 19. Protonix. 20. Trental. 21. MiraLAX. 22. Crestor. 23. Flomax. ALLERGIES: Allergies are to FLAGYL, CEPHALEXIN, BANANAS, and WALNUTS. FAMILY HISTORY: Significant for diabetes mellitus. He does have history of colon cancer on his father's side and Alzheimer's disease. SOCIAL HISTORY: Lives with his . Has at least a 51-endt-kolo smoking history, he quit approximately 10 years ago. Denies illicit or recreational drug use. REVIEW OF SYSTEMS: A 14-point scale has been reviewed, all pertinent positives and negatives have been noted above in the HPI. PHYSICAL EXAM: Current vital signs: Temperature 98.3, pulse 66, respirations 24, oxygenation 99% on 2 L oxygen, blood pressure 128/52. Generally, the patient is alert and oriented x3, in no acute distress, well-nourished. HEENT: Normocephalic, atraumatic. Moist mucous membranes. Cardiovascular Exam: Regular rate and rhythm. Pulmonary Exam: Coarse breath sounds throughout bilaterally. No wheezing. Abdominal Exam: Obese, positive bowel sounds, soft , nontender, nondistended. No rebound, guarding, or rigidity. No hepatosplenomegaly. Extremities: No clubbing, cyanosis, or edema. Neurological Exam: No gross focal deficits are appreciated. LABORATORY DATA: WBC 4.9, hemoglobin 7.6, hematocrit 26, platelets 349. Sodium 139, potassium 4.0, chloride 106, CO2 27, anion gap 6, BUN 25, creatinine 1.57, calcium 8.8. ASSESSMENT AND PLAN: Mr. Bryant is a pleasant 76-year-old gentleman with multiple comorbidities including chronic obstructive pulmonary disease, paroxysmal atrial fibrillation, coronary artery disease, on Xarelto, history of esophageal carcinoma with resection and Batista's esophagus, anxiety, chronic pain, who presented to [facility] with fatigue and shortness of breath. He is currently being treated for chronic obstructive pulmonary disease exacerbation. Gastroenterology was consulted today for anemia, need for anticoagulation and prior history of esophageal carcinoma. The patient has unfortunately been very ill over the last few months and has missed his endoscopic surveillance appointments in [place]. There is a concern due to his prior history of esophageal cancer, anemia and history of dark stool in the setting of Xarelto therapy that Gastroenterology was consulted for further endoscopy. I had an extensive discussion with the patient at bedside. He would like to discuss with his but is 80% sure he would like to proceed forward with an endoscopy due to his fear of again not being able to make it to his followup appointment for his surveillance endoscopy in [place]. His pulmonary exam today did not appear to be optimal in order to proceed forward with moderate sedation. I discussed with Susu Lomeli NP, that we would need to optimize his pulmonary status before giving him anesthesia. We will follow up and examine the patient tomorrow morning and see if it will be safe to proceed forward with an endoscopy. Currently, the Xarelto therapy has been on hold for 2 days now. We will make him n.p.o. after midnight in case we are able to perform the upper endoscopy. We will continue to monitor the patient's hemoglobin. If any concerns arise, please feel free to give us a call. [id number]/[facility] #: [id number] KIMBER[place]
[2017-05-30] MEDS: Insulin LISPRO* 1 UNITS UNIT SUBCUT SCH ×4 (08:23→21:25)
[2017-05-30] MEDS: Gabapentin CAP(*) 100 MG PO SCH ×3 (08:52→21:19)
[2017-05-30] MEDS ORDERED: Nystatin CREAM* 15 GM TUBE TOPICAL SCH (09:00)
[2017-05-30] MEDS: Nystatin TOP POWDER* 15 GM BTL TOPICAL SCH ×2 (09:18→21:29)
[2017-05-30] MEDS: CMC: Cyclosporine 0.05% OPHTH (NF) 0.4 ML VIAL BOTH EYES SCH ×2 (09:18→21:29)
[2017-05-30] MEDS: Amiodarone TAB* 200 MG PO SCH ×2 (09:18→21:23)
[2017-05-30] MEDS: Pentoxifylline CR TAB* 400 MG PO SCH ×3 (09:21→21:22)
[2017-05-30] MEDS ORDERED: Midazolam* 1 MG/ML 10 ML VIAL (10 MG) ONE (11:05)
[2017-05-30] MEDS ORDERED: fentaNYL* 50 MCG/ML 2 ML VIAL (100 MCG VIAL) ONE (11:05)
[2017-05-30] MEDS: CMCS: Fenofibrate(NF) 145 MG TAB PO SCH (13:00)
[2017-05-30] MEDS: Silver Sulfadiazine 1%* 20 GM TOPICAL SCH (13:00)
[2017-05-30] MEDS: Folic Acid TAB* 1 MG PO SCH (13:01)
[2017-05-30] MEDS: Methenamine Hippurate TAB* 1 GM TAB PO SCH ×2 (13:02→21:20)
[2017-05-30] MEDS: Cyclobenzaprine TAB* 10 MG PO SCH (13:02)
[2017-05-30] MEDS: CMCS: Pantoprazole TAB (NF) 40 MG TAB PO SCH ×2 (13:02→21:22)
[2017-05-30] MEDS: guaiFENesin ER TAB 600 MG PO SCH ×2 (13:02→21:22)
[2017-05-30] MEDS: Ascorbic Acid TAB* 500 MG PO SCH (13:02)
[2017-05-30] MEDS: DOXYcycline IV* 100 MG in NS 0.9% 250 ML* 250 ML IVPB SCH ×2 (13:03→23:19)
[2017-05-30] MEDS: Morphine TAB Extended Release (*) 30 MG TAB.ER PO SCH ×2 (13:03→21:21)
--- NOTE | 2017-05-30 14:02 | PN ---
Subjective Date of Service: 05/30/17 Interval History: Patient examined upon return from EGD which was performed without complication. Patient alert and oriented without pain. Patient denies SOB, dizziness, palpitations, chest pain or other signs of symptomatic anemia. Patient is able to ambulate around unit. Patient has not had a BM in 2 days and feels constipated. Patient has pain in his epigastric region only when he coughs. Patient has a persistent moderately productive cough. Patient denies F/C, N/V, abdominal pain, diarrhea. Family History: Unchanged from Admission Social History: Unchanged from Admission Past Medical History: Unchanged from Admission Objective Active Medications: Acetaminophen (Tylenol Tab*) 650 mg PO Q4H PRN PRN Reason: FEVER/PAIN Albuterol/Ipratropium (Duoneb (Albuterol 2.5 Mg/Ipratropium 0.5 Mg)) 1 neb INH [id number] AWAKE [facility] Last Admin: 05/30/17 12:58 Dose: Not Given Amiodarone HCl (Cordarone Tab*) 200 mg PO BID [facility] Last Admin: 05/30/17 09:18 Dose: 200 mg Ascorbic Acid (Vitamin C Tab*) 500 mg PO DAILY [facility] Last Admin: 05/30/17 13:02 Dose: 500 mg Cyclobenzaprine HCl (Flexeril Tab*) 10 mg PO DAILY [facility] Last Admin: 05/30/17 13:02 Dose: 10 mg Cyclosporine (Restasis 0.05% Ophth) 1 drop BOTH EYES BID [facility] PRN Reason: Protocol Last Admin: 05/30/17 09:18 Dose: 1 drop Dextrose (D50w Syringe 50 Ml*) 12.5 gm IV PUSH .FOR FS < 60 - SS PRN PRN Reason: FS < 60 Docusate Sodium (Colace Cap*) 200 mg PO DAILY PRN PRN Reason: CONSTIPATION Last Admin: 05/29/17 09:49 Dose: 200 mg Fenofibrate (Tricor(Nf)) 145 mg PO QAM [facility] PRN Reason: Protocol Last Admin: 05/30/17 13:00 Dose: 145 mg Ferrous Sulfate (Ferrous Sulfate Tab*) 325 mg PO DAILY [facility] Finasteride (Proscar Tab*) 5 mg PO QPM [facility] Last Admin: 05/29/17 17:43 Dose: 5 mg Folic Acid (Folvite Tab*) 1 mg PO QAM [facility] Last Admin: 05/30/17 13:01 Dose: 1 mg Gabapentin (Neurontin Cap(*)) 500 mg PO TID [facility] Last Admin: 05/30/17 13:01 Dose: 500 mg Guaifenesin (Mucinex*) 600 mg PO BID [facility] Last Admin: 05/30/17 13:02 Dose: 600 mg Doxycycline Hyclate 100 mg/ (Sodium Chloride) 250 mls @ 250 mls/hr IVPB Q12H [facility] Last Admin: 05/30/17 13:03 Dose: 250 mls/hr Insulin Glargine (Lantus(*)) 32 units SUBCUT BEDTIME [facility] Last Admin: 05/29/17 20:54 Dose: 32 units Insulin Human Lispro (Humalog*) 0 units SUBCUT ACHS [facility] PRN Reason: Protocol Last Admin: 05/30/17 13:27 Dose: Not Given Levothyroxine Sodium (Synthroid Tab*) 250 mcg PO DAILY@0600 [facility] Last Admin: 05/30/17 05:23 Dose: Not Given Lorazepam (Ativan Tab(*)) 1 mg PO TID PRN PRN Reason: ANXIETY Last Admin: 05/28/17 00:34 Dose: 1 mg Methenamine Hippurate (Hiprex Tab*) 1 gm PO BID [facility] Last Admin: 05/30/17 13:02 Dose: 1 gm Mometasone Furoate/Formoterol Fumar (Dulera 100/5 Mdi*) 2 puff INH BID [facility] Last Admin: 05/30/17 07:32 Dose: 2 puff Morphine Sulfate (Ms Contin(*)) 30 mg PO Q12H [facility] Last Admin: 05/30/17 13:03 Dose: 30 mg Nystatin (Nystatin Top Powder*) 1 applic TOPICAL BID [facility] Last Admin: 05/30/17 09:18 Dose: 1 applic Oxycodone HCl (Roxycodone Tab*) 15 mg PO Q6H PRN PRN Reason: PAIN - UNCONTROLLED Last Admin: 05/29/17 23:52 Dose: 15 mg Pantoprazole Sodium (Protonix Tab (Nf)) 40 mg PO BID [facility] Last Admin: 05/30/17 13:02 Dose: 40 mg Pentoxifylline (Trental Cr Tab*) 400 mg PO TID [facility] Last Admin: 05/30/17 13:02 Dose: 400 mg Polyethylene Glycol/Electrolytes (Miralax*) 17 gm PO DAILY PRN PRN Reason: CONSTIPATION Last Admin: 05/29/17 09:49 Dose: 17 gm Polyvinyl Alcohol (Polyvinyl Alcohol 1.4% Opth*) 1 drop BOTH EYES DAILY PRN PRN Reason: DRY EYE Last Admin: 05/27/17 21:04 Dose: 1 drop Rivaroxaban (Xarelto(*)) 20 mg PO BEDTIME [facility] Rosuvastatin Calcium (Crestor (Nf)) 40 mg PO QPM [facility] Last Admin: 05/29/17 17:43 Dose: 40 mg Senna (Senokot Tab*) 2 tab PO BEDTIME PRN PRN Reason: CONSTIPATION Last Admin: 05/29/17 23:52 Dose: 2 tab Silver Sulfadiazine (Silvadine 1%*) 1 applic TOPICAL DAILY [facility] Last Admin: 05/30/17 13:00 Dose: 1 applic Sucralfate (Sucralfate Susp) 1 gm PO 0900,1700 [facility] Tamsulosin HCl (Flomax Cap*) 0.4 mg PO BEDTIME [facility] Last Admin: 05/29/17 21:03 Dose: 0.4 mg Throat Lozenges (Chloraseptic Morelia*) 1 morelia PO Q6H PRN PRN Reason: SORE THROAT Last Admin: 05/27/17 21:53 Dose: 1 morelia Vital Signs - 8 hr 05/30/17 05/30/17 05/30/17 06:22 07:33 08:00 Temperature Pulse Rate 62 Respiratory 14 18 20 Rate Blood Pressure (mmHg) O2 Sat by Pulse 92 Oximetry 05/30/17 05/30/17 05/30/17 08:12 13:01 13:02 Temperature 98.1 F Pulse Rate 67 Respiratory 20 16 18 Rate Blood Pressure 130/63 (mmHg) O2 Sat by Pulse 94 Oximetry 05/30/17 13:03 Temperature Pulse Rate Respiratory 18 Rate Blood Pressure (mmHg) O2 Sat by Pulse Oximetry Oxygen Devices in Use Now: None Appearance: Patient is a 76yo male who appears stated age and is sitting in the bed in NAD. Eyes: No Scleral Icterus, PERRLA Ears/Nose/Mouth/Throat: NL Teeth, Lips, Gums, Clear Oropharnyx, Mucous Membranes Moist Neck: NL Appearance and Movements; NL JVP, Trachea Midline Respiratory: Symmetrical Chest Expansion and Respiratory Effort, Clear to Auscultation Cardiovascular: RRR, No Edema, - - Grade 2/6 holosystolic murmur heard best at the apex. Pulses 1+ in B/L LE. Abdominal: NL Sounds; No Tenderness; No Distention, No Hepatosplenomegaly Lymphatic: No Cervical Adenopathy Extremities: No Edema, No Clubbing, Cyanosis Skin: No Rash or Ulcers, No Nodules or Sclerosis Neurological: Alert and Oriented x 3, NL Sensation, NL Muscle Strength and Tone , - - CN II-XII Result Diagrams: 05/30/17 05:52 05/30/17 05:52 Additional Lab and Data: Microbiology and Other Data: Microbiology 05/26/17 10:24 Stool Occult Blood (VERONICA) - Final Stool Assess/Plan/Problems-Billing Mr. Bryant is a 76 yo male with PMH significant for paroxysmal afib, COPD, BPH , DM, HTN, anxiety, chronic pain, RA, CAD, IBS, esophageal CA, Barett's esophagus, and hypothyroidism, who presented to the emergency room with complaints of wheezing and shortness of breath. Much improved on ABX, Nebs. Complaints of correction black stools. EGD shows polyps which are not actively bleeding. - Patient Problems (1) Anemia Current Visit: Yes Status: Acute Code(s): D64.9 - ANEMIA, UNSPECIFIED SNOMED Code(s): 528237224 Comment: Appreciate GI consult. Hb around 10 but now stable around 7.5. It is thought that the patient may be having/had an upper GI bleed given his reported dark colored stools. EGD shows probable fundic gland polyps which were not actively bleeding but are a probable source. Biopsy pending. History of esophageal cancer. Should be followed outpatient with primary GI doctor. Iron deficient. Off iron for 6 months. Resumed today. Sucralfate added BID. (2) COPD exacerbation Current Visit: Yes Status: Acute Code(s): J44.1 - CHRONIC OBSTRUCTIVE PULMONARY DISEASE W (ACUTE) EXACERBATION SNOMED Code(s): 859413511 Comment: No significant SOB but he continues to c/o non-productive cough. Will continue doxycycline for now for anti-inflammatory properties. Continue nebs, dulera and mucinex. Improving, off oxygen for 2.5 days now. No SOB with ambulation. (3) Atrial fibrillation Current Visit: Yes Status: Chronic Code(s): I48.91 - UNSPECIFIED ATRIAL FIBRILLATION SNOMED Code(s): 51817855 Comment: HR is controlled. Continue amiodarone. Resume Xarelto okayed per GI. (4) BPH (benign prostatic hyperplasia) Current Visit: Yes Status: Chronic Code(s): N40.0 - BENIGN PROSTATIC HYPERPLASIA WITHOUT LOWER URINRY TRACT SYMP SNOMED Code(s): 546219921 Comment: Continue tamsulosin (as substitute for silodosin while in the hospital) and finasteride (5) CKD (chronic kidney disease) Current Visit: Yes Status: Chronic Code(s): N18.9 - CHRONIC KIDNEY DISEASE, UNSPECIFIED SNOMED Code(s): 964453104 Comment: Pt's creatinine is at baseline. Will continue to monitor. (6) Diabetes mellitus Current Visit: Yes Status: Chronic Code(s): E11.9 - TYPE 2 DIABETES MELLITUS WITHOUT COMPLICATIONS SNOMED Code(s): 62967370 Comment: Sugars are moderately elevated off glipizide. Continue lantus and sliding scale. Resume glipizide at discharge. (7) DVT prophylaxis Current Visit: Yes Status: Acute Code(s): VYU6743 - SNOMED Code(s): 284327913 Comment: Martina (8) Full code status Current Visit: Yes Status: Acute Onset Date: 05/21/14 Code(s): Z78.9 - OTHER SPECIFIED HEALTH STATUS SNOMED Code(s): 568701192 Status and Disposition: Inpatient. Hopeful discharge in AM.
[2017-05-30] MEDS: CMCS: Rosuvastatin (NF) 20 MG TAB PO SCH (17:43)
[2017-05-30] MEDS: Finasteride TAB* 5 MG PO SCH (17:43)
[2017-05-30] MEDS: Sucralfate SUSP 1 GM/10 ml 10 ML UDC PO SCH (17:43)
[2017-05-30] MEDS ORDERED: Rivaroxaban TAB(*) 20 MG TAB PO SCH (21:00)
[2017-05-30] MEDS: Tamsulosin CAP* 0.4 MG PO SCH (21:23)
[2017-05-30] MEDS: LORazepam TAB(*) 1 MG PO PRN (21:23)
[2017-05-30] MEDS: Insulin GLARGINE(*) 1 UNITS UNIT SUBCUT SCH (21:25)
[2017-05-30] MEDS: Senna TAB PO PRN (21:28)
[2017-05-31] MEDS: Albuterol/Ipratropium NEB.SOL* Albuterol 2.5 MG/Ipratropium 0.5 MG 3 ML INH SCH ×2 (03:02→09:03)
[2017-05-31] MEDS: Levothyroxine TAB* 100 MCG TAB PO SCH (06:26)
[2017-05-31 07:43] LABS: ABS Basophils 0.1 10^3/ul (0-0.2); ABS Eosinophils 0.3 10^3/ul (0-0.6); ABS Lymphocytes 0.9 10^3/ul (1.0-4.8); ABS Monocytes 0.6 10^3/ul (0-0.8); ABS Neutrophils 4.8 10^3/ul (1.5-7.7); ABS Nucleated RBC 0 10^3/ul; Eosinophil % 4.2 % (0-6); Hematocrit 25 % (42-52); Hemoglobin 7.5 g/dl (14.0-18.0); Lymphocyte % 14.1 % (25-47); Mean Corpuscular HGB Conc 30 g/dl (31-36); Mean Corpuscular Hemoglobin 21 pg (27-31); Mean Corpuscular Volume 69 fL (80-94); Mean Platelet Volume 7 um3 (7.4-10.4); Nucleated Red Blood Cells % 0; Platelet Count 400 10^3/ul (150-450); Red Blood Count 3.57 10^6/ul (4.0-5.4); Red Cell Distribution Width 20 % (10.5-15); White Blood Count 6.7 10^3/ul (3.5-10.8)
[2017-05-31] MEDS: Insulin LISPRO* 1 UNITS UNIT SUBCUT SCH ×2 (07:48→12:04)
[2017-05-31 07:52] VITALS: BP 118/49
[2017-05-31 07:57] LABS: EGFR Non-African American 50.7 (>60)
[2017-05-31] MEDS ORDERED: Ferrous Sulfate TAB* 325 MG PO SCH (09:00)
--- NOTE | 2017-05-31 09:02 | PRO ---
DATE OF PROCEDURE: 05/30/17 - ROOM #410 PROCEDURE: EGD. INDICATION: Anemia. REFERRING PHYSICIAN: None. MEDICATIONS GIVEN: 4 mg IV Versed and no fentanyl. DESCRIPTION OF PROCEDURE: After the EGD procedure, including the risks, benefits, and alternatives, not limited to perforation, surgery and/or were explained to Mr. Bryant. Written consent was then obtained. IV medication was given. After explanation of the procedure, bite-block was placed between the patient's teeth. An Olympus gastroscope was then inserted into the patient's mouth, advanced down the esophagus, into the stomach, and into the distal duodenum. The upper esophageal sphincter was somewhat difficult to intubate as it appears that there had been surgical changes in this area. The patient does have a history of esophageal cancer. I did use the pediatric gastroscope. Scope was advanced fairly easily down the esophagus to the GE junction. No abnormalities were seen at the GE junction. Biopsies were obtained. Scope was advanced through a widely patent GE junction into the body of the stomach. Retroflex view was unremarkable. Forward views did reveal at least 6-10 polyps. All of the polyps did contain varying degrees of ulcers and ulceration. No active bleeding was seen. I did take biopsies of three of the polyps to determine whether or not they could be fundic gland polyps related to his Protonix use. Scope was advanced through widely patent pylorus and duodenal bulb. No other abnormalities were seen. The scope was withdrawn from the patient. He tolerated the procedure well, was returned to the recovery room in stable condition. IMPRESSION: 1. Complete upper endoscopy into the distal duodenum with biopsies using the pediatric gastroscope. 2. Numerous 6-10 gastric polyps potentially fundic gland polyps with ulcerations is likely the cause for his bleeding; however, no bleeding was seen today. I did take biopsies to confirm the presence of fundic gland polyps. The patient does need to restart his Xarelto. We will need to see what happens to his hemoglobin. We will need to follow his blood count very closely. 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 We will continue to follow along. [id number]/[facility] #: [id number] [facility] CENTERAdam
[2017-05-31] MEDS: Mometasone/Formoter 100/5 MDI INH SCH (09:03)
[2017-05-31] MEDS: Pentoxifylline CR TAB* 400 MG PO SCH (09:17)
[2017-05-31] MEDS: CMCS: Pantoprazole TAB (NF) 40 MG TAB PO SCH (09:17)
[2017-05-31] MEDS: Sucralfate SUSP 1 GM/10 ml 10 ML UDC PO SCH (09:17)
[2017-05-31] MEDS: Cyclobenzaprine TAB* 10 MG PO SCH (09:17)
[2017-05-31] MEDS: Methenamine Hippurate TAB* 1 GM TAB PO SCH (09:17)
[2017-05-31] MEDS: guaiFENesin ER TAB 600 MG PO SCH (09:17)
[2017-05-31] MEDS: Ascorbic Acid TAB* 500 MG PO SCH (09:17)
[2017-05-31] MEDS: Folic Acid TAB* 1 MG PO SCH (09:17)
[2017-05-31] MEDS: Amiodarone TAB* 200 MG PO SCH (09:18)
[2017-05-31] MEDS: Silver Sulfadiazine 1%* 20 GM TOPICAL SCH (09:18)
[2017-05-31] MEDS: Morphine TAB Extended Release (*) 30 MG TAB.ER PO SCH (09:18)
[2017-05-31] MEDS: Gabapentin CAP(*) 100 MG PO SCH (09:18)
[2017-05-31] MEDS: CMCS: Fenofibrate(NF) 145 MG TAB PO SCH (09:18)
[2017-05-31] MEDS: CMC: Cyclosporine 0.05% OPHTH (NF) 0.4 ML VIAL BOTH EYES SCH (09:22)
[2017-05-31] MEDS: Nystatin TOP POWDER* 15 GM BTL TOPICAL SCH (09:23)
[2017-05-31] MEDS ORDERED: Saline NASAL DROPS 0.65%* 1 DROP BTL BOTH NARES PRN (10:10)
--- NOTE | 2017-06-02 15:44 | DS ---
CC: Dr. Jamie Cha; Dr. Chavarria of [facility]. * DISCHARGE SUMMARY: DATE OF ADMISSION: 05/25/17 DATE OF DISCHARGE: 05/31/17 PRIMARY CARE PROVIDER: Dr. Jamie Cha. ATTENDING PHYSICIAN WHILE IN THE HOSPITAL: Dr. Ish Lopez.* (DICTATED BY RACQUEL HERNÁNDEZ) PRIMARY DISCHARGE DIAGNOSES: 1. Chronic obstructive pulmonary disease exacerbation. 2. GI bleed related to fundic gland polyps. SECONDARY DISCHARGE DIAGNOSES: 1. Paroxysmal atrial fibrillation. 2. Benign prostatic hyperplasia. 3. Type 2 diabetes mellitus. 4. Hyperlipidemia. 5. Anxiety. 6. Chronic pain. 7. Rheumatoid arthritis. 8. Recurrent Clostridium difficile. 9. Coronary artery disease. 10. Irritable bowel syndrome. 11. History of esophageal cancer. 12. Batista's esophagus. 13. Hypothyroidism. 14. History of cardiac stents. 15. Excision of esophageal carcinoma. 16. History of appendectomy. 17. History of cataract extraction. STUDIES DONE WHILE IN THE HOSPITAL: EKG from 05/25/17 read as normal sinus rhythm, no ST-segment abnormalities, normal axis, QTc at 453, no signs of hypertrophy or enlargement. No other abnormalities. Chest x-ray from 05/25/17 read as bibasilar atelectasis. No pneumonia identified. MEDICATIONS AT DISCHARGE: 1. Lorazepam 1 mg p.o. t.i.d. as needed. 2. Nystatin cream 1 application topically b.i.d. as needed. 3. Ammonium lactate lotion 12% topical b.i.d. as needed. 4. Trental 400 mg p.o. t.i.d. 5. Hiprex 1 g p.o. b.i.d. 6. Xarelto 20 mg p.o. at bedtime. 7. Testosterone 200 mg IM q. 10 days. 8. Insulin glargine 30 units subcutaneous at bedtime. 9. Levothyroxine 250 mcg p.o. q.a.m. 10. Gabapentin 500 mg p.o. t.i.d. 11. Glipizide 500 mg p.o. b.i.d. 12. MiraLAX 17 g p.o. daily as needed. 13. Afrin 1 spray both nares daily as needed. 14. Ascorbic acid 500 mg p.o. daily. 15. Tylenol 325 mg p.o. q. 4 hours as needed. 17. Carboxymethylcellulose/glycerin Optive 0.9% one gel both eyes daily as needed. 18. Levomefolate B6, B12 one cap p.o. q. p.m. 19. Mometasone furoate 0.1% topical daily as needed. 20. Fluocinolone implant 0.1% topical daily as needed. 21. Cyclosporin Restasis drops 0.5% one drop both eyes b.i.d. 22. Silodosin 8 mg p.o. q. p.m. 23. Finasteride 5 mg p.o. q. p.m. 24. Fenofibrate 145 p.o. q. p.m. 25. Pantoprazole 40 mg p.o. b.i.d. 26. Cyclosporin 10 mg p.o. daily. 27. Nitroglycerin 0.4 mg sublingual q.5 minutes as needed for chest pain. 28. [place]-3 fatty acids 1 g p.o. b.i.d. 29. Rosuvastatin 40 mg p.o. q. p.m. 30. Folic acid 1 mg p.o. q. a.m. 31. Combivent Respimat 1 puff inhalation 4 times a day. 32. Morphine extended release 30 mg p.o. b.i.d. 33. Oxycodone 50 mg p.o. q. 6 hours as needed. 34. Amiodarone 200 mg p.o. b.i.d. 35. Silvadene 1 application topical daily. 36. Docusate 200 mg p.o. daily as needed. 37. Ferrous sulfate 325 mg p.o. daily. 38. Sucralfate 1 g p.o. at 0900 and 1700. 3 39. Furosemide 20 mg p.o. daily. New Medications at discharge: 1. Docusate. 2. Ferrous sulfate. 3. Sucralfate. 4. Furosemide. Medications continued at discharge: 1. Furosemide 20 mg p.o. b.i.d. 2. Aspirin 81 mg p.o. at bedtime. HOSPITAL COURSE: This is a brief summary of the patient's presentation. For more details please see history and physical from Susu Lomeli on 05/25/17. In brief, the patient is a 76-year-old male with a past medical history significant for the above who presented to the emergency department with wheezing and shortness of breath treated with 2 outpatient courses of antibiotics for pneumonia and that he has had significant wheezing over the past couple of weeks but it has increased over the past couple of days and he has also had shortness of breath with exertion, worse on the last couple of days , as well as a cough, mostly dry with occasional production of small amounts of phlegm without hemoptysis. The patient also had dark colored stools, is not new or not tarry. Does not have a foam rubber fabricator. The patient uses Combivent 4 times daily but does not have a long-acting inhaler. The patient also had an EGD which showed fundic gland polyps which were not removed at that time. The patient was admitted to the hospital for a COPD exacerbation without pneumonia. The patient was started on doxycycline IV for antiinflammatory properties. The patient declined steroids which were also not a big idea due to his possible GI bleed. The patient had anemia as well. His hemoglobin appears to be at baseline at 8.3 on admission. The patient had a negative stool guaiac. The patient was seen in consultation by Dr. Dulce Garcias of gastroenterology who determined that endoscopy would be indicated when his respiratory status was improved to the point he could tolerate it. The patient's respiratory status improved slowly while he was in the hospital on scheduled DuoNebs, doxycycline, and Dulera. The patient continued to have a cough. The patient was able to be weaned off of his oxygen on 05/27/17. The patient was still not deemed to be medically stable for EGD. The patient's hemoglobin decreased from 8.3 on admission down to 7.3 on his first day and then stayed approximately at that level while he was in the hospital. The patient's anemia was microcytic with elevated RDW and a decreased MCH. The patient's respiratory status continued to improve. The patient was off of oxygen and was able to ambulate without hypoxia on 05/29/17. The patient was prepped, planned for an endoscopy on 05/30/17 which was performed and showed erosions on his known fundic gland polyps. No Batista's esophagus and no other obvious source of bleeding. The patient was restarted on his Xarelto on that day. The patient's hemoglobin stayed stable and he had a bowel movement which was dark, but not his usual shade of black. On the next day the patient was anxious to go home and was discharged to follow up closely with his primary care provider and his glycerin operator in [place] for continued surveillance endoscopies for his history of esophageal cancer and for consideration of removal of his fundic gland polyps. The patient was also started on iron. The patient had iron studies drawn which showed low iron of 21, percent saturation of 5, TIBC of 456 , and a ferritin of 18.6. PHYSICAL EXAMINATION: On the day of discharge, general: The patient is a 76- year-old male who appears the stated age and sitting comfortably in bed, in no acute distress. Vital Signs: At the time of discharge; temperature 97.6, pulse rate 63, respiratory rate 17, oxygen saturation 93% on room air, and blood pressure 118/49. HEENT: Head atraumatic and normocephalic. Sclerae anicteric. No conjunctival injection. Nasal mucosa moist. Oral mucosa moist. No oropharyngeal erythema, discharge, or exudate. Neck: Supple and nontender. No lymphadenopathy. No carotid bruits auscultated. Cardiac: Regular, rate, and rhythm. No clicks, murmurs, gallops, or rubs. Pulses are 2 + in bilateral dorsalis pedis, posterior tibialis, and radial areas with no edema in the bilateral lower extremities. Respiratory: Clear to auscultation bilaterally. Diminished throughout. No wheezes, rales, or rhonchi. Good air exchange. Abdomen: Soft, nontender, and nondistended. Bowel sounds present and normoactive in all 4 quadrants. No epigastric tenderness. No hepatosplenomegaly. No abdominal bruits auscultated. Genitourinary: No suprapubic tenderness or CVA tenderness. Skin: Clean, dry, and intact. No rash. Neuro: Cranial nerves II through XII intact. No focal deficits. Normal gait. Psychiatric: Pleasant and cooperative. LABORATORY DATA: On the day of discharge: White blood count 6.7, hemoglobin 7.5, hematocrit 25, MCV 69, MCH 21, MCHC 30, RDW 20, and platelet count of 400. Sodium 136, potassium 3.7, chloride 106, carbon-dioxide 24, anion gap 6, BUN 17, creatinine 1.37, glucose 80 (point of care). Calcium 9.0. DISCHARGE PLAN: The patient will be discharged to home. The patient should have close followup including a repeat CBC and BMP within 3 days which have been ordered. He should follow up with his primary care provider within 1 week to discuss these results and to discuss his general medical management including management of his COPD including consideration of adding long-acting inhalers to his home regimen. The patient should have consideration of a long- acting beta agonist along with his muscarinic agonist added in addition to his sort-acting beta agonist therapy. The patient should follow up with glycerin operator in [place] for consideration of removal of his fundic gland polyps which were shown not to be cancerous by biopsy. The patient should also continue with surveillance endoscopies for his history of esophageal cancer. The patient should return to the hospital for any alarming symptoms such as hunter red blood per rectum, hematemesis, or coffee-ground emesis, severe abdominal pain, shortness of breath, chest pain, or other alarming symptoms. The patient should engage in activities as tolerated and have a heart-healthy diet without caffeine. TIME SPENT: Approximately 60 minutes was spent on the discharge, 30 of which was spent [id number] with the patient obtaining history and physical and discussing treatment plan. RACQUEL HERNÁNDEZ [id number]/[facility] #: [id number] [facility]
== END 2017-05-31 12:00 | disposition home or self-care (01) | DRG 377 ==
LOC: ED 17:14 → MED 22:03 → OBSVTOIN 05-26 16:00
PROVIDERS: ADMIT Pediatrics; ATTEND Hospitalist
PROC: 0DB68ZX Excision of Stomach, Via Natural or Artificial Opening Endoscopic, Diagnostic (ICD-10-PCS; principal; 2017-05-30)
DX: K25.0 Acute gastric ulcer with hemorrhage (principal); J96.01 Acute respiratory failure with hypoxia; E11.22 Type 2 diabetes mellitus with diabetic chronic kidney disease; E11.51 Type 2 diabetes mellitus with diabetic peripheral angiopathy without gangrene; D50.0 Iron deficiency anemia secondary to blood loss (chronic); E11.9 Type 2 diabetes mellitus without complications; J44.1 Chronic obstructive pulmonary disease with (acute) exacerbation; J98.11 Atelectasis; I48.0 Paroxysmal atrial fibrillation; K31.7 Polyp of stomach and duodenum; N40.0 Benign prostatic hyperplasia without lower urinary tract symptoms; E78.5 Hyperlipidemia, unspecified; I13.10 Hypertensive heart and chronic kidney disease without heart failure, with stage 1 through stage 4 chronic kidney disease, or unspecified chronic kidney disease; N18.3 Chronic kidney disease, stage 3 (moderate); F41.9 Anxiety disorder, unspecified; G89.29 Other chronic pain; M06.9 Rheumatoid arthritis, unspecified; I25.10 Atherosclerotic heart disease of native coronary artery without angina pectoris; K58.9 Irritable bowel syndrome, unspecified; K22.70 Barrett's esophagus without dysplasia; E03.9 Hypothyroidism, unspecified; Z79.01 Long term (current) use of anticoagulants; Z85.01 Personal history of malignant neoplasm of esophagus; Z95.5 Presence of coronary angioplasty implant and graft; Z87.891 Personal history of nicotine dependence; Z79.1 Long term (current) use of non-steroidal anti-inflammatories (NSAID); Z79.82 Long term (current) use of aspirin; Z79.4 Long term (current) use of insulin; Z79.891 Long term (current) use of opiate analgesic; Z79.899 Other long term (current) drug therapy; Z88.1 Allergy status to other antibiotic agents; Z91.018 Allergy to other foods; Z88.8 Allergy status to other drugs, medicaments and biological substances; Z82.49 Family history of ischemic heart disease and other diseases of the circulatory system; Z83.3 Family history of diabetes mellitus; Z80.0 Family history of malignant neoplasm of digestive organs
CPT/HCPCS: 36415; 71045; 80048; 80053; 82272; 82607; 82728; 83540; 83550; 83605; 83735; 83880; 84484; 85014; 85018; 85025; 85027; 85379; 85610; 86140; 88305; 93005; 94640; 94760; 99156; 99157; 99284; A9270-GY; J2250; J3010

== ENCOUNTER 2018-03-30 12:29 | Inpatient (IN) | payer MEDICARE ==
--- NOTE | 2018-03-30 13:08 | ED ---
Complex/Multi-Sys Presentation - HPI Summary HPI Summary: A 77 y/o male brought in by ambulance presents to the ED c/o confusion, generalized weakness, constipation, and abdominal discomfort. In the ED room, the patient has a pulse of 77 BPM, O2 saturation of 93%, and blood pressure of 147/66. As per triage, "Pt c/o fever/chills, generalized weakness, abdominal discomfort and constipation. Woke up disoriented". According to the patient, when he woke up this AM, he initially was confused, but when he got his phone, he started to come to his baseline. He also stated that he had trouble sitting up and figuring thigs out. He noted that he has tremors, constipation, abdominal discomfort, denies any abdominal pain. He had no food this morning. Patient is on a walker due to his loss of balance. Patient had a chronic Schuster catheter that was changed a week ago. Patient is on several narcotics. Patient lives with . - History Of Current Complaint Chief Complaint: EDGeneral Time Seen by Provider: 03/30/18 12:31 Onset/Duration: Sudden Onset, Lasting Hours, Still Present Timing: Constant Severity Currently: None Location: Negative Character: Unable To Describe Aggravating Factor(s): NOTHING Alleviating Factor(s): NOTHING Associated Signs And Symptoms: Positive: Confusion, Weakness - Generalized - Allergies/Home Medications Allergies/Adverse Reactions: Allergies Allergy/AdvReac Type Severity Reaction Status Date / Time cephalexin [From Keflex] Allergy GI Upset Verified 03/30/18 12:38 ciprofloxacin Allergy GI Upset Verified 03/30/18 12:38 metronidazole Allergy Nausea And Verified 03/30/18 12:38 Vomiting BANANAS Allergy Mild See Comment Uncoded 03/30/18 12:38 WALNUTS Allergy Mild See Comment Uncoded 03/30/18 12:38 Home Medications: Home Medications Aspirin EC TAB* [Ecotrin EC Low Dose 81 MG*] 81 mg PO BEDTIME 03/30/18 [History Confirmed 03/30/18] Gabapentin CAP(*) [Neurontin 100 mg CAP(*)] 100 mg PO TID 03/30/18 [History Confirmed 03/30/18] Gabapentin CAP(*) [Neurontin 400 mg CAP(*)] 400 mg PO TID 03/30/18 [History Confirmed 03/30/18] Hydrocortisone 0.5% CM(NF) [Hydrocortisone 0.5% CREAM(NF)] 1 applic TOPICAL BID PRN 03/30/18 [History Confirmed 03/30/18] Insulin Detemir [Levemir Flextouch] 28 units SUBCUT DAILY 03/30/18 [History Confirmed 03/30/18] LORazepam TAB(*) [Ativan 1 MG TAB (*)] 1 mg PO TID PRN 03/30/18 [History Confirmed 03/30/18] Levomefolate/B6/B12/Algal Oil [Metanx] 1 cap PO QPM 03/30/18 [History Confirmed 03/30/18] Levothyroxine TAB* [Synthroid TAB*] 250 mcg PO DAILY 03/30/18 [History Confirmed 03/30/18] Nystatin TOP POWDER* 1 applic TOPICAL BID PRN 03/30/18 [History Confirmed ] Nystatin/Triamcinolone CR(NF) [Mycolog CREAM(NF)] 1 applic TOPICAL BID PRN 03/30 [History Confirmed 03/30/18] Ondansetron TAB* [Zofran 4 MG Tab*] 4 mg PO Q6H PRN 03/30/18 [History Confirmed 03/30/18] Oxymetazoline 0.05% NASAL SPR* [Afrin 0.05% NASAL SPRAY*] 1 spray BOTH NARES BID PRN 03/30/18 [History Confirmed 03/30/18] Silodosin(NF) [Rapaflo(NF)] 8 mg PO QPM 03/30/18 [History Confirmed 03/30/18] Sucralfate TAB* [Carafate*] 1 gm PO ACHS 03/30/18 [History Confirmed 03/30/18] PMH/Surg Hx/FS Hx/Imm Hx Endocrine/Hematology History: Reports: Hx Diabetes - NIDDM, Hx Thyroid Disease Denies: Hx Anticoagulant Therapy, Hx Blood Disorders, Hx Blood Transfusions, Hx Bone Marrow Disease, Hx Sickle Cell Disease Cardiovascular History: Reports: Hx Angina, Hx Angioplasty, Hx Coronary Artery Disease, Hx Hypercholesterolemia, Hx Hypertension, Other Cardiovascular Problems /Disorders - HISTORY OF ATRIAL FIBRILLARION Denies: Hx Congestive Heart Failure, Hx Myocardial Infarction, Hx Pacemaker/ ICD, Hx Valvular Heart Disease Respiratory History: Reports: Hx Chronic Obstructive Pulmonary Disease (COPD), Hx Sleep Apnea Denies: Hx Asthma GI History: Reports: Hx Gall Bladder Disease - removed, Hx Gastroesophageal Reflux Disease, Hx Hiatal Hernia, Hx Ulcer, Other GI Disorders - Barretts esophagus History: Denies: Hx Renal Disease Musculoskeletal History: Reports: Hx Arthritis - ARTHRITIS, Hx Rheumatoid Arthritis, Hx Back Problems, Hx Osteoporosis Sensory History: Reports: Hx Cataracts - RIGHT EYE, Hx Contacts or Glasses - does not have them now, Hx Eye Injury, Hx Vision Problem Denies: Hx Eye Prosthesis, Hx Glaucoma, Hx Legally Blind, Hx Macular Degeneration, Hx Deafness, Hx Hearing Aid, Hx Hearing Problem, Other Sensory Impairments Opthamlomology History: Reports: Hx Cataracts - RIGHT EYE, Hx Contacts or Glasses - does not have them now, Hx Eye Injury, Hx Vision Problem Denies: Hx Eye Prosthesis, Hx Glaucoma, Hx Legally Blind, Hx Macular Degeneration, Other Sensory Impairments Neurological History: Reports: Other Neuro Impairments/Disorders - diabetic neuropathy (feet) Denies: Hx Dementia, Hx Developmental Delay, Hx Headaches, Hx Migraine, Hx Nerve Disease, Hx Seizures, Hx Spinal Cord Injury, Hx Transient Ischemic Attacks (TIA) Psychiatric History: Reports: Hx Anxiety Denies: Hx Panic Disorder - Cancer History Cancer Type, 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 - REMOVED- INCLUDING MARGINS NO NEED FOR CHEMO OR RADIATION Hx Chemotherapy: No Hx Radiation Therapy: No - Surgical History Surgery Procedure, Year, and Place: 10 CARDIAC STENTS ( [place]), CHOLECYSTECTOMY, APPENDECTOMY, LEFT TOTAL HIP, ESOPHAGEAL CA TUMOR REMOVED 2014. FEET - [place]. NASAL - CLEAR THE PASSAGE Hx Anesthesia Reactions: No - Immunization History Date of Tetanus Vaccine: Infectious Disease History: No Infectious Disease History: Reports: Hx Hepatitis - CURED Denies: Hx Clostridium Difficile, Hx Human Immunodeficiency Virus (HIV), Hx of Known/Suspected MRSA, Hx Shingles, Hx Tuberculosis, Hx Known/Suspected VRE, Hx Known/Suspected VRSA, History Other Infectious Disease, Traveled Outside the [place] in Last 30 Days - Family History Known Family History: Positive: Diabetes, Other - alzheimer's and colon CA - Social History Alcohol Use: None Hx Substance Use: No Substance Use Type: Reports: None Hx Tobacco Use: Yes Smoking Status (MU): Former Smoker Type: Cigarettes Amount Used/How Often: 1.5ppd Length of Time of Smoking/Using Tobacco: 50 years Have You Smoked in the Last Year: No Review of Systems Negative: Fever Positive: Other - POSITIVE: CONSTIPATION, ABDOMINAL DISCOMFORT. Negative: Abdominal Pain Positive: Other - POSITIVE: TREMORS Neurological: Other - POSITIVE: CONFUSION Positive: Weakness - GENERALIZED All Other Systems Reviewed And Are Negative: Yes Physical Exam - Summary Physical Exam Summary: Appearance: Well appearing, no pain distress Skin: warm, dry, reflects adequate perfusion, chronic ulcer on lateral aspect of foot, left Head/face: normal Eyes: EOMI, KELLY ENT: normal, dry mmm Neck: supple, non-tender Respiratory: CTA, breath sounds present Cardiovascular: RRR, pulses symmetrical Abdomen: non-tender, soft Musculoskeletal: b/l pulses present. Neuro: A&Ox3 GCS: 15 Triage Information Reviewed: Yes Vital Signs On Initial Exam: Initial Vitals Temp Pulse Resp BP Pulse Ox 98.7 F 77 20 147/66 92 03/30/18 12:33 03/30/18 12:33 03/30/18 12:33 03/30/18 12:33 03/30/18 12:33 Vital Signs Reviewed: Yes - Taras Coma Scale Best Eye Response: 4 - Spontaneous Best Motor Response: 6 - Obeys Commands Best Verbal Response: 5 - Oriented Coma Scale Total: 15 Diagnostics - Vital Signs Vital Signs Temp Pulse Resp BP Pulse Ox 03/30/18 12:33 98.7 F 77 20 147/66 92 - Laboratory Result Diagrams: 03/30/18 13:02 03/30/18 13:17 Lab Statement: Any lab studies that have been ordered have been reviewed, and results considered in the medical decision making process. - Radiology CXR Radiology Interpretation Completed By: Radiologist Summary of Radiographic Findings: No radiographic evidence for acute cardiopulmonary abnormality on this. portable chest x-ray. ED PHYSICIAN REVIEWED THIS RADIOLOGY REPORT. FOOT XR Radiology Interpretation Completed By: Radiologist Summary of Radiographic Findings: SOFT TISSUE SWELLING, NO SPECIFIC EVIDENCE FOR OSTEOMYELITIS. IF THERE IS A HIGH CLINICAL INDEX OF SUSPICION FOR OSTEOMYELITIS CONSIDER AN MRI STUDY WITHOUT CONTRAST OR A THREE-PHASE BONE SCAN. ED PHYSICIAN REVIEWED THIS RADIOLOGY REPORT. - CT BRAIN CT CT Interpretation Completed By: Radiologist Summary of CT Findings: NO ACUTE INTRACRANIAL PATHOLOGY. ED PHYSICIAN REVIEWED THIS RADIOLOGY REPORT. - EKG 1256 Cardiac Rate: NL - 74 BPM EKG Rhythm: Sinus Rhythm - 74 BPM Summary of EKG Findings: No acute changes. Complex Multi-Symp Course/Dx Course Of Treatment: A 77 y/o male brought in by ambulance presents to the ED c/ o confusion, generalized weakness, constipation, and abdominal discomfort. In the ED room, the patient has a pulse of 77 BPM, O2 saturation of 93%, and blood pressure of 147/66. According to the patient, when he woke up this AM, he initially was confused, but when he got his phone, he started to come to his baseline. He also stated that he had trouble sitting up and figuring thigs out. He noted that he has tremors, constipation, abdominal discomfort, denies any abdominal pain. He had no food this morning. Patient is on a walker due to his loss of balance. Patient had a chronic Schuster catheter that was changed a week ago. Patient is on several narcotics. Patient lives with . Physical examination findings significant for chronic ulcer on lateral aspect of left foot and dry mucous membranes. A CXR revealed no radiographic evidence for acute cardiopulmonary abnormality on this portable chest x-ray. A Foot XR revealed soft tissue swelling, no specific evidence for osteomyelitis. If there is a high clinical index of suspicion for osteomyelitis consider an MRI study without contrast or a three-phase bone scan. A Brain CT revealed no acute intracranial pathology.GCS: 15. An EKG revealed a NSR of 74 BPM, no acute changes. Hematology and urinalysis screens were done. No significant laboratory abnormalities were found. In the ED course, the patient received Piperacillin. Patient care was discussed with hospitalist, Dr. Conrad, who accepts patient for admission. Patient will be admitted with a diagnosis of sepsis and UTI. Patient is agreeable with this plan. - Diagnoses Differential Diagnoses/HQI/PQRI: Cardiac Ischemia, Metabolic Abnormality, Sepsis , Urinary Tract Infection Provider Diagnoses: Sepsis, UTI (urinary tract infection) - Physician Notifications Discussed Care Of Patient With: Maria C Conrad Time Discussed With Above Provider: 15:20 Instructed by Provider To: Other - Accepts patient for admission. Discharge - Sign-Out/Discharge Documenting (check all that apply): Patient Departure - ADMIT, Sign-Out Patient - HOLLIS Signing out patient TO: Maria C Conrad Receiving patient FROM: Emmett Armendariz - Discharge Plan Condition: Stable Disposition: ADMITTED TO [facility] Referrals: Jamie Cha MD [Primary Care Provider] - - Billing Disposition and Condition Condition: STABLE Disposition: Admitted to [facility] - Attestation Statements Document Initiated by Julita: Yes Documenting Scribe: Brian Bermudez Provider For Whom Julita is Documenting (Include Credential): Emmett Armendariz MD Scribe Attestation: Brian Berry, scribed for Emmett Amrendariz MD on 03/30/18 at 1708. Scribe Documentation Reviewed: Yes Provider Attestation: The documentation as recorded by the Brian candelario accurately reflects the service I personally performed and the decisions made by Emmett reinoso MD Status of Scribe Document: Viewed
[2018-03-30 13:19] LABS: ABS Basophils 0.1 10^3/ul (0-0.2); ABS Eosinophils 0 10^3/ul (0-0.6); ABS Lymphocytes 0.3 10^3/ul (1.0-4.8); ABS Monocytes 0.7 10^3/ul (0-0.8); ABS Neutrophils 17.6 10^3/ul (1.5-7.7); ABS Nucleated RBC 0 10^3/ul; Eosinophil % 0.1 %; Hematocrit 40 % (42-52); Hemoglobin 12.9 g/dl (14.0-18.0); Lymphocyte % 1.8 %; Mean Corpuscular HGB Conc 32 g/dl (31-36); Mean Corpuscular Hemoglobin 28 pg (27-31); Mean Corpuscular Volume 87 fL (80-94); Mean Platelet Volume 7.6 fL (7.4-10.4); Nucleated Red Blood Cells % 0; Platelet Count 200 10^3/ul (150-450); Red Blood Count 4.62 10^6/ul (4.00-5.40); Red Cell Distribution Width 15 % (10.5-15); White Blood Count 18.8 10^3/ul (3.5-10.8)
[2018-03-30 13:52] LABS: Albumin/Globulin Ratio 1.4 (1-3); BUN/Creatinine Ratio 17.2 (8-20); Calcium 9.4 mg/dL (8.6-10.3); EGFR Non-African American 43.2 (>60); Globulin 2.8 g/dL (2-4); Potassium 4.4 mmol/L (3.5-5.0); Total Bilirubin 0.5 mg/dL (0.2-1.0); Total Protein 6.8 g/dL (6.4-8.9)
[2018-03-30 13:57] LABS: Activated Partial Thrombo Time 36.4 seconds (26.0-36.3); INR 1.53 (0.77-1.02)
[2018-03-30 15:05] LABS: Urine Appearance Cloudy; Urine Bacteria Absent (Absent); Urine Bilirubin Negative (Negative); Urine Blood 2+ (Negative); Urine Color Yellow; Urine Glucose 2+(150 mg/dL) (Negative); Urine Ketones Negative (Negative); Urine Nitrite Positive (Negative); Urine Protein 1+(30 mg/dL) (Negative); Urine Red Blood Cell 3+(>10/hpf) (Absent); Urine Specific Gravity 1.023 (1.010-1.030); Urine Urobilinogen Negative (Negative); Urine White Blood Cell 3+(>20/hpf) (Absent)
[2018-03-30] MEDS ORDERED: Piperacillin/Tazobac ADVAN(*) 3.375 GM in NS 0.9% 100 ML* 100 ML IVPB ONE (15:21)
[2018-03-30] MEDS ORDERED: Docusate CAP* 100 MG PO PRN (16:46)
[2018-03-30] MEDS ORDERED: Albuterol/Ipratropium RESP(NF) MDI (Combivent Respimat) INH PRN (16:46)
[2018-03-30] MEDS ORDERED: LORazepam TAB(*) 1 MG PO PRN (16:46)
[2018-03-30] MEDS ORDERED: Polyethylene Glycol 3350* 17 GM PACKET PO PRN (16:46)
[2018-03-30] MEDS ORDERED: Albuterol/Ipratropium NEB.SOL* Albuterol 2.5 MG/Ipratropium 0.5 MG 3 ML INH PRN (18:00)
[2018-03-30] MEDS: oxyCODONE TAB* 5 MG TAB PO PRN (18:17)
[2018-03-30] MEDS: Cyclobenzaprine TAB* 10 MG PO SCH (18:18)
[2018-03-30] MEDS: Finasteride TAB* 5 MG PO SCH (18:18)
[2018-03-30] MEDS: Atorvastatin* 80 MG TAB PO SCH (18:18)
[2018-03-30] MEDS: SILODOSIN 8 MG PO SCH (18:19)
[2018-03-30] MEDS ORDERED: Dextrose 50% Syringe 50 ML* 25 GM/50 ML SYRINGE IV PUSH PRN (18:26)
[2018-03-30] MEDS ORDERED: Vancomycin(*) 1,500 MG in NS 0.9% 250 ML* 250 ML IVPB ONE (18:41)
[2018-03-30] MEDS ORDERED: Vancomycin(*) 0 MG in NS 0.9% 250 ML* 250 ML IVPB SCH (19:00)
[2018-03-30] MEDS ORDERED: Vancomycin per Pharmacy* NOTE FOLLOW UP PRN (19:09)
[2018-03-30] MEDS: NS 0.9% 1000 ML* 1,000 ML IV SCH (19:25)
[2018-03-30 19:41] LABS: C Reactive Protein 68.3 mg/L (<8.01)
[2018-03-30] MEDS: Morphine TAB Extended Release (*) 30 MG TAB.ER PO SCH (20:39)
[2018-03-30] MEDS: Methenamine Hippurate TAB* 1 GM TAB PO SCH (20:39)
[2018-03-30] MEDS: Omeprazole CAP* 20 MG PO SCH (20:43)
[2018-03-30] MEDS: Pentoxifylline CR TAB* 400 MG PO SCH (20:44)
[2018-03-30] MEDS: Gabapentin CAP(*) 400 MG PO SCH (20:45)
[2018-03-30] MEDS: Gabapentin CAP(*) 100 MG PO SCH (20:46)
[2018-03-30] MEDS: Sucralfate TAB* 1 GM PO SCH (20:47)
[2018-03-30] MEDS: Carboxymethylcellulose/Glyceri 10 ML OPHTH.GEL lubricant eye gel BOTH EYES PRN (20:49)
[2018-03-30] MEDS ORDERED: Rivaroxaban TAB(*) 20 MG TAB PO SCH (21:00)
[2018-03-30] MEDS: Cefepime 1 GM in Dextrose(*) 1 GM/50 ML BAG IV SCH (23:18)
[2018-03-31] MEDS: CMC:Cyclosporine 0.05% OPHTH (NF) 0.4 ML VIAL BOTH EYES SCH ×3 (00:46→23:07)
--- NOTE | 2018-03-31 02:07 | HP ---
CC: Dr. Cha * HISTORY AND PHYSICAL: DATE OF ADMISSION: 03/30/18 PROVIDER: Gerald Simmons NP. PRIMARY CARE PROVIDER: Dr. Cha. ATTENDING PHYSICIAN WHILE IN THE HOSPITAL: Dr. Maria C Conrad * (dictated by Gerald Simmons NP). CHIEF COMPLAINT: Shaking and weakness. HISTORY OF PRESENT ILLNESS: Mr. Bryant is a 77-year-old male with past medical history significant for paroxysmal atrial fibrillation, COPD, BPH, diabetes type 2, hyperlipidemia, coronary artery disease, hypertension, and tremors, who presented to the emergency room with complaints of weakness and increased shaking. The patient reports that approximately 6 weeks ago, he saw Dr. Alejandra and at that time, he had a Schuster catheter placed due to being unable to fully empty his bladder. The patient reports that he followed up with Dr. Alejandra's office approximately 2 weeks ago and at that time, he had his catheter changed. He has had no issues with the catheter but reports that over the past couple of days he has developed some feeling urgency, generalized weakness. This morning, he awoke, he felt weak and had increased shaking and fevers at home. Due to the symptoms, Mr. Bryant presented to the emergency room for further evaluation. The patient reports fevers and mild suprapubic tenderness, urgency, weakness, and increased shaking. He denies any loss of appetite, chest pain, edema, cough, hemoptysis, or shortness of breath. Denies any nausea or vomiting or diarrhea. Denies any gross hematuria. Denies any focal weakness or sensory loss. Denies any visual complaints. Denies any dysphagia, arthralgias or myalgias. He does report an open wound to the left lateral foot and the right lateral ankle. He states that there is some redness and swelling and tenderness to the left foot. He denies any psychosis or anxiety. While in the emergency room, the patient had routine lab work drawn. He was found to have a white count of 18.8 and a urine that was positive for nitrites, blood, protein, urine wbc's, urine rbc's, squamous epithelial cells, and leukocyte esterase. Due to the concern of urinary tract infection, we were asked to see and evaluate the patient for admission. PAST MEDICAL HISTORY: 1. Paroxysmal atrial fibrillation. 2. COPD. 3. BPH. 4. Type 2 diabetes. 5. Hyperlipidemia. 6. Coronary artery disease. 7. Hypertension. 8. Tremors. PAST SURGICAL HISTORY: 1. Left hip arthroplasty. 2. Gallbladder. 3. Cataracts bilaterally. 4. Appendectomy. 5. Cardiac stents. 6. Bilateral foot surgery. 7. Left fifth toe amputation. HOME MEDICATIONS: 1. Amiodarone 200 mg p.o. b.i.d. 2. Gabapentin 500 mg p.o. b.i.d. and 400 mg at lunch. 3. MiraLax 17 g p.o. daily p.r.n. 4. Acetaminophen 325 mg p.o. q.4 hours as needed. 5. Refresh eye gel 1 gel both eyes daily p.r.n. 6. Kenalog topically p.r.n. b.i.d. 7. Zofran 4 mg p.o. q.6 hours as needed. 8. Carafate 1 g q.a.c. and h.s. 9. Trental 400 mg p.o. t.i.d. 10. Fluocinolone acetonide (Iluvien) 0.01 topically daily p.r.n. 11. Restasis 1 drop to both eyes b.i.d. 12. Nystatin powder topically b.i.d. 13. Levemir 28 units subcu daily. 14. Testosterone 200 mg IM q.10 days. 15. Levothyroxine 250 mcg p.o. daily. 16. Colace 200 mg p.o. daily p.r.n. 17. Hiprex tab 1 g p.o. b.i.d. 18. Furosemide 20 mg p.o. daily. 19. Finasteride 5 mg p.o. q.p.m. 20. Rapaflo 8 mg p.o. q.p.m. 21. Morphine 30 mg p.o. b.i.d. 22. Pantoprazole 40 mg p.o. b.i.d. 23. Oxycodone 15 mg p.o. q.6 hours. 24. Fenofibrate 145 mg p.o. daily. 25. Flexeril 10 mg p.o. q.p.m. 26. Glipizide 5 mg p.o. b.i.d. 27. Nitroglycerin 0.4 mg sublingual q.5 minutes as needed for chest pain. 28. Xarelto 20 mg p.o. at bedtime. 29. Cook-3 (Lovaza) 1 g p.o. b.i.d. 30. Crestor 40 mg p.o. q.p.m. 31. Folic acid 1 g p.o. q.a.m. 32. Ferrous sulfate 325 mg p.o. daily. 33. Albuterol 1 puff. 34. Combivent 1 puff inhaled q.i.d. p.r.n. 35. Lorazepam 1 mg p.o. t.i.d. p.r.n. ALLERGIES TO MEDICATIONS: Allergy to KEFLEX, causes GI upset; CIPRO, GI upset; METRONIDAZOLE, causing nausea and vomiting; BANANAS and WALNUTS, mouth tingling. FAMILY HISTORY: No reported history of coronary artery disease. Mother with a history of diabetes. Father with a history of colon cancer. SOCIAL HISTORY: The patient reports that he quit smoking 11 to 12 years ago. Prior to that, he smoked [id number] packs per day for 50 years. He denies any alcohol or recreational drug use. He lives with his . Surrogate decision maker in the event he is unable to make his own decisions is his . He is a full code. REVIEW OF SYSTEMS: He does report fevers. Denies any unintended weight loss. Denies chest pain or edema. Denies cough, hemoptysis, or shortness of breath. No nausea, vomiting, or diarrhea. Does report suprapubic tenderness with palpation. Denies gross hematuria. He does report urinary urgency. He denies any focal weakness or sensory loss. He does have generalized weakness and shaking, jerking motions that are more frequent. Denies any visual complaints. Denies dysphagia, arthralgias or myalgias. He does report wounds to the bilateral feet. He has a open wound to the left lateral foot and the right lateral ankle. Denies any psychosis or anxiety. PHYSICAL EXAMINATION GENERAL: At this time, Mr. Bryant is a 77-year-old male. He appears in no acute distress, sitting on the stretcher in the emergency room. He is well nourished and well developed. VITAL SIGNS: Blood pressure 133/74, heart rate 74, respirations 24, O2 saturation 94%, temperature was 98.7. HEENT: Head is atraumatic, normocephalic. Eyes: EOMs are intact. Sclerae anicteric and not pale. Oral mucosa appears to be moist. No oropharyngeal erythema. NECK: Supple. LUNGS: Clear to auscultation bilaterally. No wheezes, rales, or rhonchi. CARDIAC: S1, S2. Regular rate and rhythm. No murmurs, rubs, or gallops. ABDOMEN: Soft and nontender. He does have mild suprapubic tenderness with palpation. Bowel sounds are present x4. EXTREMITIES: Left lateral foot with 2 cm open wound with scab center, erythema noted around the wound, warm to touch, mild swelling. Increased tenderness with palpation around ulceration. He does have an ulceration to the top of the left foot that is healing without redness or drainage. Right lateral ankle with small 1 cm open area with a small amount of purulent drainage noted. He is able to move all 4 extremities. 4/5 strength. NEUROLOGIC: He is awake, alert, oriented x3. His speech is clear. Thought process is intact. There are no gross focal deficits. He does have bilateral upper extremity jerking. SKIN: He has an open area noted to the left lateral foot and scabbed area to the top of the foot. Right lateral ankle with small open area as well. DIAGNOSTIC STUDIES AND LABORATORY DATA: WBCs were 18.8, RBCs 4.62, hemoglobin 12.9, hematocrit was 40, platelet count was 200. Absolute neutrophils were 17.6. INR 1.53 and aPTT was 36.4. Sodium 134, potassium 4.4, chloride 102, carbon dioxide was 23. Anion gap was 9. BUN was 27, creatinine 1.57. Glucose was 300. Lactic acid was 1.7. C-reactive protein 68.30. BNP was 112. Urine; color was yellow, cloudy, pH was 5, specific gravity 1.023, urine protein 1+, urine ketones were negative, urine blood was 2+, urine nitrites were positive, urine bilirubin negative, urobilinogen was negative, urine leukocyte esterase was 2+, wbc's were 3+, rbc's 3+, urine squamous epithelial cells were present, urine bacteria was absent, urine glucose was 2+. He had a chest x-ray, radiologist's impression; no acute cardiopulmonary abnormality on the portable chest x-ray. He had an electrocardiogram which showed sinus rhythm at a rate of 74. He had an x-ray of the foot which showed soft tissue swelling. No evidence for osteomyelitis. If there is high clinical index suspicion for osteomyelitis, consider MRI study without contrast. He had a CT of the brain, radiologist's impression; no acute intracranial pathology. ASSESSMENT AND PLAN: Mr. Bryant is a 77-year-old male who presented to the emergency room with complaints of increased weakness and shaking, fevers, who was found to have diabetic ulcer with mild erythema to the left foot and possible urinary tract infection. We were asked to see and evaluate him due to his increased weakness and fever. He will be admitted inpatient for: 1. Weakness. I suspect that this weakness is related to possible underlying urinary tract infection as well as possible cellulitis to the left lower foot with diabetic foot ulcer. At this time, we will place him on vancomycin as per pharmacy and cefepime 1 g q.12 hours. He does have a reported allergy to keflex which he reports is nausea but no other reported reaction. Given that this is an adverse reaction to keflex, i feel that it is safe to place him on cefepime. He does have leukocytosis with a white blood cell count of 18.8. I suspect this is associated to his underlying infection, possibly related to urinary tract infection or diabetic foot ulcer infection. I will get an MRI of his left lower extremity to evaluate for osteomyelitis that is currently pending. 2. Leukocytosis. I suspect his leukocytosis is related to underlying urinary tract infection and/or diabetic foot ulcer and cellulitis to his left foot. We will continue with vancomycin and cefepime at this time and normal saline at 100 cc per hour. 3. Diabetic foot ulcer. He does have swelling and mild redness noted to the left lateral foot and some redness to the left lower leg. I will get an MRI of his left foot to rule out osteomyelitis of the foot as he has had the ulceration to his left foot for approximately 2 months. 4. Diabetes. We will continue Accu-Cheks a.c. and h.s. I will hold his glipizide and place him on Lispro sliding scale and Lantus 28 units subcu daily. 5. History of coronary artery disease. The patient is without chest pain at this time. We will continue him on his Crestor, amiodarone. I am going to hold his Lasix 20 mg p.o. daily at this time as he does have an underlying infection. 6. Gastroesophageal reflux disease. We will continue on Protonix and Carafate as previously prescribed. 7. Paroxysmal atrial fibrillation. He will continue on amiodarone as previously prescribed. 8. Hypothyroid. I will continue his Synthroid 250 mcg p.o. daily. 9. Tremors. The patient will continue on gabapentin. He takes 500 mg in the morning and at bedtime and 400 mg at noon. 10. Benign prostatic hypertrophy . He will continue Proscar 5 mg p.o. daily. 11. DVT prophylaxis. He will continue on Xarelto 20 mg p.o. daily. 12. Fluids, electrolytes and nutrition. He can have a heart-healthy diet, caffeine okay. 13. Code status. He is a full code. TIME SPENT: Time spent on this admission was 60 minutes, greater than half that time was spent [id number] with the patient obtaining my history and physical, the other half the time was spent going over my plan of care and implementing my plan of care. I have discussed this with my attending, Dr. Maria C Conrad, she is in agreement with my plan. GERALD SIMMONS, MARCELLA [id number]/[facility] #: [id number] MTDD
[2018-03-31] MEDS: Levothyroxine TAB* 125 MCG TAB PO SCH (06:02)
[2018-03-31 06:25] LABS: ABS Basophils 0 10^3/ul (0-0.2); ABS Eosinophils 0.1 10^3/ul (0-0.6); ABS Lymphocytes 0.9 10^3/ul (1.0-4.8); ABS Monocytes 0.7 10^3/ul (0-0.8); ABS Neutrophils 8.6 10^3/ul (1.5-7.7); ABS Nucleated RBC 0 10^3/ul; Eosinophil % 0.9 %; Hematocrit 33 % (42-52); Lymphocyte % 8.9 %; Mean Corpuscular HGB Conc 33 g/dl (31-36); Mean Corpuscular Hemoglobin 28 pg (27-31); Mean Corpuscular Volume 86 fL (80-94); Mean Platelet Volume 7.1 fL (7.4-10.4); Nucleated Red Blood Cells % 0; Platelet Count 184 10^3/ul (150-450); Red Cell Distribution Width 16 % (10.5-15); White Blood Count 10.3 10^3/ul (3.5-10.8)
[2018-03-31 06:46] LABS: BUN/Creatinine Ratio 16.4 (8-20); Calcium 8.9 mg/dL (8.6-10.3); EGFR Non-African American 44.8 (>60); Potassium 3.6 mmol/L (3.5-5.0)
[2018-03-31] MEDS: Insulin LISPRO* 1 UNITS UNIT SUBCUT SCH ×3 (07:55→17:52)
[2018-03-31] MEDS: Sucralfate TAB* 1 GM PO SCH ×4 (08:35→21:16)
[2018-03-31] MEDS: Folic Acid TAB* 1 MG PO SCH (08:35)
[2018-03-31] MEDS: Gabapentin CAP(*) 100 MG PO SCH ×2 (08:35→21:17)
[2018-03-31] MEDS: Omeprazole CAP* 20 MG PO SCH ×2 (08:35→21:17)
[2018-03-31] MEDS: Amiodarone TAB* 200 MG PO SCH ×2 (08:35→21:18)
[2018-03-31] MEDS: CMC:Fenofibrate(NF) 145 MG TAB PO SCH (08:36)
[2018-03-31] MEDS: Pentoxifylline CR TAB* 400 MG PO SCH ×3 (08:36→21:18)
[2018-03-31] MEDS: Morphine TAB Extended Release (*) 30 MG TAB.ER PO SCH ×2 (08:36→21:17)
[2018-03-31] MEDS: Gabapentin CAP(*) 400 MG PO SCH ×3 (08:36→21:17)
[2018-03-31] MEDS: Methenamine Hippurate TAB* 1 GM TAB PO SCH ×2 (08:36→21:16)
[2018-03-31] MEDS: Vancomycin(*) 750 MG in NS 0.9% 250 ML* 250 ML IVPB SCH ×2 (08:38→20:02)
[2018-03-31] MEDS: NS 0.9% 1000 ML* 1,000 ML IV SCH (08:39)
[2018-03-31] MEDS: Insulin GLARGINE(*) 1 UNITS UNIT SUBCUT SCH (10:48)
[2018-03-31] MEDS: Acetaminophen TAB* 325 MG PO PRN (10:48)
[2018-03-31] MEDS: Cefepime 1 GM in Dextrose(*) 1 GM/50 ML BAG IV SCH ×2 (10:51→23:08)
[2018-03-31] MEDS ORDERED: Gabapentin CAP(*) 100 MG PO SCH (12:00)
--- NOTE | 2018-03-31 16:27 | CONS ---
AMENDED REPORT NOW INCLUDES DATE OF CONSULT ORTHOPEDIC CONSULTATION: DATE OF CONSULT: 03/31/18 ATTENDING PHYSICIAN: Dr. Ramirez. ATTENDING ORTHOPEDIC PHYSICIAN: Dr. Zia Aceves. CHIEF COMPLAINT: History of slowly healing ulcer left lateral foot, wound care recommendations. HISTORY OF PRESENT ILLNESS: Mr. Bryant is a 77-year-old male with past medical history of COPD, BPH, diabetes type 2, high cholesterol, coronary artery disease, hypertension, paroxysmal atrial fibrillation, who presented to the emergency department 03/30/18 with shaking and weakness. He has been worked up by the medical team and found to have a urinary tract infection, for which he was recently started on IV and oral antibiotics. He since has felt much improved since starting the antibiotics. He has a history of neuropathy in both feet from his longstanding type 2 diabetes mellitus and underwent what appears to be a fifth ray amputation on the left lower extremity and underwent revascularization surgery on the left lower extremity, done by Dr Rader in [place], who is a vascular surgeon. The patient has had some difficulties with slowly healing incision and ulcer on the lateral aspect of his foot, which has been managed by a director consumer affairs Dr. Benitez and by wound care nurse coming to his home 3 times weekly. The patient states that he has had daily dressing changes with Opticell on the left foot and feels that there has been slow improvement. He does not feel that there is any significant worsening of his ulcer. He has had some mild soreness in this region, which has also not worsened. He is also being followed for 2 smaller wounds on the right foot and has had daily dressing changes there as well. He does not feel that these wounds have worsened either. PAST MEDICAL HISTORY: As above, paroxysmal atrial fibrillation, COPD, BPH, type 2 diabetes, hyperlipidemia, coronary artery disease, hypertension, history of tremors. PAST SURGICAL HISTORY: Left hip arthroplasty, cholecystectomy, bilateral cataract surgery, appendectomy, cardiac stent placement, bilateral foot surgery , left fifth ray amputation. MEDICATIONS: Please see history and physical examination for list of medications. He is currently receiving vancomycin and cefepime. He states that he receives the daily dressing changes of Opticell on the left foot ulcer and Optifoam Gentle on the 2 small wounds on the right foot. ALLERGIES: KEFLEX causes GI upset; CIPRO, GI upset; METRONIDAZOLE, nausea and vomiting; BANANAS and WALNUTS, mouth tingling. FAMILY HISTORY: Mother with a history of diabetes. Father with a history of colon cancer. SOCIAL HISTORY: The patient reports that he quit smoking roughly 12 years ago. He denies alcohol or recreational drug use. Lives with his . REVIEW OF SYSTEMS: The patient denies recent loss of consciousness, lightheadedness, or dizziness. He denies fever, chills since being placed on IV antibiotics yesterday. Denies gastrointestinal or genitourinary discomfort. PHYSICAL EXAM: The patient is alert and oriented x3, pleasant and cooperative, lying in hospital bed. Vital Signs: He is afebrile 98.3, pulse 64, respiratory rate 16, O2 sats 93% on room air, BP 130/59. Examination of the left lower extremity reveals left lateral wound roughly quarter sized with no significant erythema or warmth. No foul odor is identified. There is some mild tenderness to palpation around the ulceration. His incision along the foot laterally has yellowish eschar without evidence of infectious process. He is insensate over the dorsum and plantar aspect of the foot roughly to the mid arch region. Examination of the right lower extremity reveals a nickel sized hard scab over the lateral malleolus, which is minimally tender. There is no drainage, fluctuance, erythema, or evidence of gross infectious process. He has a very shallow stage 1 dime sized region to the Achilles area on the right foot as well, which is mildly tender to palpation. He is also insensate over the plantar aspect and dorsal aspect of the foot to the ankle region on the right. Noted venous stasis changes are evident in both lower extremities. DIAGNOSTIC STUDIES/LAB DATA: His white count is normal today at 10.3, hemoglobin 11, hematocrit 33. His C-reactive protein dated 03/30/18 was elevated at 68.30. MRI of the left foot was obtained and fails to show evidence of osteomyelitis/ fluid consolidation abscess. IMPRESSION: 1. Slowly healing ulcer, left lateral foot, status post partial amputation, no evidence of surgical intervention needed. 2. Two small ulcers, right lateral ankle and Achilles region. No evidence for surgical intervention. PLAN: I have ordered wound care for the ulcer. We will use a similar product as the Opticell for daily dressing changes. I am recommending a padded boot for the right lower extremity while in bed to prevent further skin breakdown of the heel region. A light dressing may be applied to these areas as well. I will discuss the case with Dr. Zia Aceves, orthopedic attending. RACQUEL SHIELDS [id number]/[facility] #: [id number] KIMBERLY
--- NOTE | 2018-03-31 16:42 | PN ---
Subjective Date of Service: 03/31/18 Interval History: Pt seen and examined. Meds and labs reviewed. Pt inquired of when Dr. Lew can replace villarreal. Called Dr. Lew and mentioned his villarreal was replaced by one of his Pas in the office last week and pt has been rescheduled for PVR and possible villarreal placement as outpt. CC: N/A ROS: Denied DAVISON/dizziness, F/C, N/V, CP, SOB, increased cough, sputum production , abd pain, diarrhea, constipation, dysuria, myalgias, arthralgias, throat pain , and new skin lesions. The rest of the 14 point ROS are unremarkable. PHYSICAL EXAM: GEN APPEARANCE: Awake, not in acute distress, obese HEENT: NC/AT, PERRLA, moist oral mucosa, (-) throat erythema NECK: Soft, supple, (-) cervical LAD, (-)JVD HEART: S1S2 WNL, RRR, No MRG CHEST: CTA, BL, GAE, No W/R/R ABD: Soft, ND/NT, NABS 4x Q EXT: No C/C/L foot w/yellowish scab SKIN: Warm to touch PSYCH: No active psychosis, hallucinations, depression, SI/HI Objective Active Medications: Acetaminophen (Tylenol Tab*) 650 mg PO Q4H PRN PRN Reason: FEVER/PAIN Last Admin: 03/31/18 10:48 Dose: 650 mg Albuterol/Ipratropium (Duoneb (Albuterol 2.5 Mg/Ipratropium 0.5 Mg)) 1 neb INH QID PRN; Protocol PRN Reason: SHORTNESS OF BREATH Amiodarone HCl (Cordarone Tab*) 200 mg PO BID [facility] Last Admin: 03/31/18 08:35 Dose: 200 mg Atorvastatin Calcium (Lipitor*) 80 mg PO QPM [facility] Last Admin: 03/30/18 18:18 Dose: 80 mg Carboxymethylcellulose/Glycerin (Refresh Optive Gel Eye Gel) 1 applic BOTH EYES DAILY PRN PRN Reason: DRY EYE Last Admin: 03/30/18 20:49 Dose: 1 applic Cyclobenzaprine HCl (Flexeril Tab*) 10 mg PO QPM [facility] Last Admin: 03/30/18 18:18 Dose: 10 mg Cyclosporine (Restasis 0.05% Oph) 1 drop BOTH EYES BID [facility]; Protocol Last Admin: 03/31/18 08:38 Dose: 1 drop Dextrose (D50w Syringe 50 Ml*) 12.5 gm IV PUSH .FOR FS < 60 - SS PRN PRN Reason: FS < 60 Docusate Sodium (Colace Cap*) 200 mg PO DAILY PRN PRN Reason: CONSTIPATION Fenofibrate (Tricor(Nf)) 145 mg PO QAM [facility]; Protocol Last Admin: 03/31/18 08:36 Dose: 145 mg Finasteride (Proscar Tab*) 5 mg PO QPM [facility] Last Admin: 03/30/18 18:18 Dose: 5 mg Folic Acid (Folvite Tab*) 1 mg PO QAM [facility] Last Admin: 03/31/18 08:35 Dose: 1 mg Gabapentin (Neurontin Cap(*)) 400 mg PO BID [facility] Last Admin: 03/31/18 08:36 Dose: 400 mg Gabapentin (Neurontin Cap(*)) 100 mg PO BID [facility] Last Admin: 03/31/18 08:35 Dose: 100 mg Gabapentin (Neurontin Cap(*)) 400 mg PO 1200 [facility] Last Admin: 03/31/18 13:02 Dose: 400 mg Sodium Chloride (Ns 0.9% 1000 Ml*) 1,000 mls @ 100 mls/hr IV PER RATE [facility] Last Admin: 03/31/18 08:39 Dose: 100 mls/hr Cefepime HCl (Maxipime 1 Gm In Dextrose Duplex (*)) 1 gm in 50 mls @ 100 mls/ hr IV Q12H [facility] Last Admin: 03/31/18 10:51 Dose: 100 mls/hr Vancomycin HCl 750 mg/ Sodium (Chloride) 250 mls @ 166.667 mls/hr IVPB Q12H [facility] Last Admin: 03/31/18 08:38 Dose: 166.667 mls/hr Insulin Glargine (Lantus(*)) 28 units SUBCUT DAILY [facility] Last Admin: 03/31/18 10:48 Dose: 28 units Insulin Human Lispro (Humalog*) 0 units SUBCUT AC [facility]; Protocol Last Admin: 03/31/18 13:03 Dose: 6 units Levothyroxine Sodium (Synthroid Tab*) 250 mcg PO 0600 [facility] Last Admin: 03/31/18 06:02 Dose: 250 mcg Lorazepam (Ativan Tab(*)) 1 mg PO TID PRN PRN Reason: ANXIETY Methenamine Hippurate (Hiprex Tab*) 1 gm PO BID [facility] Last Admin: 03/31/18 08:36 Dose: 1 gm Morphine Sulfate (Ms Contin(*)) 30 mg PO BID [facility] Last Admin: 03/31/18 08:36 Dose: 30 mg Omeprazole (Prilosec Cap*) 20 mg PO BID [facility] Last Admin: 03/31/18 08:35 Dose: 20 mg Oxycodone HCl (Roxycodone Tab*) 15 mg PO Q6H PRN PRN Reason: PAIN Last Admin: 03/30/18 18:17 Dose: 15 mg Pentoxifylline (Trental Cr Tab*) 400 mg PO TID [facility] Last Admin: 03/31/18 13:03 Dose: 400 mg Pharmacy Consult (Vancomycin Per Pharmacy*) 1 note FOLLOW UP . PRN PRN Reason: PER PROTOCOL Pharmacy Profile Note (Vancomycin Trough Check) 1 note FOLLOW UP 0800 ONE Stop: 04/01/18 08:01 Polyethylene Glycol/Electrolytes (Miralax*) 17 gm PO DAILY PRN PRN Reason: CONSTIPATION Rivaroxaban (Xarelto(*)) 20 mg PO QPM [facility] Silodosin (Rapaflo(Nf)) 8 mg PO QPM [facility] Last Admin: 03/30/18 18:19 Dose: Not Given Sucralfate (Carafate*) 1 gm PO ACHS [facility] Last Admin: 03/31/18 13:02 Dose: 1 gm Vital Signs - 8 hr 03/31/18 03/31/18 03/31/18 10:20 10:51 11:55 Temperature 98.3 F Pulse Rate 64 Respiratory 22 16 16 Rate Blood Pressure 130/59 (mmHg) O2 Sat by Pulse 93 Oximetry 03/31/18 03/31/18 13:02 16:39 Temperature Pulse Rate Respiratory 16 16 Rate Blood Pressure (mmHg) O2 Sat by Pulse Oximetry Oxygen Devices in Use Now: None Result Diagrams: 03/31/18 06:07 03/31/18 06:07 Microbiology and Other Data: Microbiology 03/30/18 14:49 Urine Culture - Preliminary Urine Staphylococcus Epidermidis 03/30/18 13:17 Blood Culture - Preliminary Blood Venous No Growth Day 1 03/30/18 13:02 Aerobic Blood Culture - Preliminary Blood Venous No Growth Day 1 Anaerobic Blood Culture - Preliminary No Growth Day 1 Assess/Plan/Problems-Billing Assessment: - Patient Problems (1) Weakness Current Visit: Yes Status: Acute Code(s): R53.1 - WEAKNESS SNOMED Code(s) : 86029421 Comment: -Likely due to UTI +/- Cellulitis of left foot---although S. epidermidis growing in Urine Cx -Agree w/Cefepime and Vanco -Continue to follow cultures---blood Cx (-) x 1 day -D/W Ms. Horner who recommended continued wound care of left foot -Will check TSH (2) UTI (urinary tract infection) Current Visit: Yes Status: Acute Comment: -As above (3) Cellulitis Current Visit: Yes Status: Acute Code(s): L03.90 - CELLULITIS, UNSPECIFIED SNOMED Code(s): 732004441 Comment: -As above (4) Diabetes 1.5, managed as type 2 Current Visit: Yes Status: Acute Code(s): E13.9 - OTHER SPECIFIED DIABETES MELLITUS WITHOUT COMPLICATIONS SNOMED Code(s): 892027096 Comment: -Continue Lantus and ISS -Continue to monitor FS -Will add consistent carb diet to current heart healthy diet (5) Hypothyroidism Current Visit: Yes Status: Acute Code(s): E03.9 - HYPOTHYROIDISM, UNSPECIFIED SNOMED Code(s): 43661744 Comment: -Continue Levothyroxine -Will check TSH in AM (6) Paroxysmal A-fib Current Visit: Yes Status: Acute Code(s): I48.0 - PAROXYSMAL ATRIAL FIBRILLATION SNOMED Code(s): 566491914 Comment: -On Amiodarone and Xarelto (7) DVT prophylaxis Current Visit: No Status: Acute Priority: Medium Onset Date: 05/21/14 Code(s): KWA8537 - SNOMED Code(s): 142244310 Comment: -On Xarelto Status and Disposition: -For PT eval
[2018-03-31] MEDS: Rivaroxaban TAB(*) 20 MG TAB PO SCH (17:51)
[2018-03-31] MEDS: Cyclobenzaprine TAB* 10 MG PO SCH (17:51)
[2018-03-31] MEDS: Atorvastatin* 80 MG TAB PO SCH (17:51)
[2018-03-31] MEDS: Finasteride TAB* 5 MG PO SCH (17:51)
[2018-03-31] MEDS: SILODOSIN 8 MG PO SCH (17:52)
[2018-03-31] MEDS: Carboxymethylcellulose/Glyceri 10 ML OPHTH.GEL lubricant eye gel BOTH EYES PRN ×2 (21:18→23:04)
[2018-04-01] MEDS: NS 0.9% 1000 ML* 1,000 ML IV SCH ×2 (00:55→15:40)
[2018-04-01] MEDS: Levothyroxine TAB* 125 MCG TAB PO SCH (06:59)
[2018-04-01 07:29] LABS: ABS Basophils 0.1 10^3/ul (0-0.2); ABS Eosinophils 0.3 10^3/ul (0-0.6); ABS Lymphocytes 0.9 10^3/ul (1.0-4.8); ABS Monocytes 0.6 10^3/ul (0-0.8); ABS Neutrophils 3.9 10^3/ul (1.5-7.7); ABS Nucleated RBC 0 10^3/ul; Eosinophil % 5.5 %; Hematocrit 29 % (42-52); Hemoglobin 9.5 g/dl (14.0-18.0); Lymphocyte % 15.1 %; Mean Corpuscular HGB Conc 33 g/dl (31-36); Mean Corpuscular Hemoglobin 28 pg (27-31); Mean Corpuscular Volume 85 fL (80-94); Mean Platelet Volume 7.3 fL (7.4-10.4); Nucleated Red Blood Cells % 0; Platelet Count 174 10^3/ul (150-450); Red Cell Distribution Width 15 % (10.5-15); White Blood Count 5.7 10^3/ul (3.5-10.8)
[2018-04-01 07:44] LABS: Albumin 2.9 g/dL (3.2-5.2); Albumin/Globulin Ratio 1.2 (1-3); BUN/Creatinine Ratio 19.5 (8-20); Calcium 8.5 mg/dL (8.6-10.3); EGFR Non-African American 54.6 (>60); Globulin 2.4 g/dL (2-4); Magnesium 1.9 mg/dL (1.9-2.7); Phosphorus 2.3 mg/dL (2.5-5.0); Potassium 3.7 mmol/L (3.5-5.0); Total Bilirubin 0.3 mg/dL (0.2-1.0); Total Protein 5.3 g/dL (6.4-8.9)
[2018-04-01] MEDS ORDERED: Vancomycin Trough Check NOTE FOLLOW UP ONE (08:00)
[2018-04-01 08:06] LABS: TSH (Thyroid Stimulating Horm) 2.01 mcIU/mL (0.34-5.60)
[2018-04-01] MEDS: Pentoxifylline CR TAB* 400 MG PO SCH ×3 (08:51→20:45)
[2018-04-01] MEDS: Gabapentin CAP(*) 400 MG PO SCH ×3 (08:52→20:46)
[2018-04-01] MEDS: Morphine TAB Extended Release (*) 30 MG TAB.ER PO SCH ×2 (08:52→20:46)
[2018-04-01] MEDS: Omeprazole CAP* 20 MG PO SCH ×2 (08:52→20:45)
[2018-04-01] MEDS: Folic Acid TAB* 1 MG PO SCH (08:52)
[2018-04-01] MEDS: Methenamine Hippurate TAB* 1 GM TAB PO SCH ×2 (08:52→20:45)
[2018-04-01] MEDS: Amiodarone TAB* 200 MG PO SCH ×2 (08:52→20:46)
[2018-04-01] MEDS: Sucralfate TAB* 1 GM PO SCH ×4 (08:52→20:46)
[2018-04-01] MEDS: CMC:Fenofibrate(NF) 145 MG TAB PO SCH (08:53)
[2018-04-01] MEDS: CMC:Cyclosporine 0.05% OPHTH (NF) 0.4 ML VIAL BOTH EYES SCH ×2 (08:53→20:45)
[2018-04-01] MEDS: Gabapentin CAP(*) 100 MG PO SCH ×2 (08:53→20:47)
[2018-04-01] MEDS: Insulin GLARGINE(*) 1 UNITS UNIT SUBCUT SCH (08:54)
[2018-04-01] MEDS: Insulin LISPRO* 1 UNITS UNIT SUBCUT SCH ×4 (08:54→18:05)
[2018-04-01 09:15] LABS: Vancomycin Trough 10.3 mcg/mL
[2018-04-01] MEDS: Vancomycin(*) 750 MG in NS 0.9% 250 ML* 250 ML IVPB SCH ×2 (09:15→20:42)
[2018-04-01] MEDS ORDERED: Potassium Phosphate IV* 10 MMOLE in NS 0.9% 250 ML* 250 ML IVPB ONE (09:20)
[2018-04-01] MEDS: Cefepime 1 GM in Dextrose(*) 1 GM/50 ML BAG IV SCH ×2 (11:12→22:45)
[2018-04-01] MEDS: Acetaminophen TAB* 325 MG PO PRN (13:16)
--- NOTE | 2018-04-01 15:24 | PN ---
Subjective Date of Service: 04/01/18 Interval History: Pt seen and examined. Meds and labs reviewed. CC: N/A ROS: Denied DAVISON/dizziness, F/C, N/V, CP, SOB, increased cough, sputum production , abd pain, diarrhea, constipation, dysuria, myalgias, arthralgias, throat pain , and new skin lesions. The rest of the 14 point ROS are unremarkable. PHYSICAL EXAM: GEN APPEARANCE: Awake, not in acute distress, obese HEENT: NC/AT, PERRLA, moist oral mucosa, (-) throat erythema NECK: Soft, supple, (-) cervical LAD, (-)JVD HEART: S1S2 WNL, RRR, No MRG CHEST: CTA, BL, GAE, No W/R/R ABD: Soft, ND/NT, NABS 4x Q EXT: No C/C/L foot w/yellowish scab SKIN: Warm to touch PSYCH: No active psychosis, hallucinations, depression, SI/HI Objective Active Medications: Acetaminophen (Tylenol Tab*) 650 mg PO Q4H PRN PRN Reason: FEVER/PAIN Last Admin: 04/01/18 13:16 Dose: 650 mg Albuterol/Ipratropium (Duoneb (Albuterol 2.5 Mg/Ipratropium 0.5 Mg)) 1 neb INH QID PRN; Protocol PRN Reason: SHORTNESS OF BREATH Amiodarone HCl (Cordarone Tab*) 200 mg PO BID [facility] Last Admin: 04/01/18 08:52 Dose: 200 mg Atorvastatin Calcium (Lipitor*) 80 mg PO QPM [facility] Last Admin: 03/31/18 17:51 Dose: 80 mg Carboxymethylcellulose/Glycerin (Refresh Optive Gel Eye Gel) 1 applic BOTH EYES DAILY PRN PRN Reason: DRY EYE Last Admin: 03/31/18 21:18 Dose: 1 applic Cyclobenzaprine HCl (Flexeril Tab*) 10 mg PO QPM [facility] Last Admin: 03/31/18 17:51 Dose: 10 mg Cyclosporine (Restasis 0.05% Ophth) 1 drop BOTH EYES BID [facility]; Protocol Last Admin: 04/01/18 08:53 Dose: 1 drop Dextrose (D50w Syringe 50 Ml*) 12.5 gm IV PUSH .FOR FS < 60 - SS PRN PRN Reason: FS < 60 Docusate Sodium (Colace Cap*) 200 mg PO DAILY PRN PRN Reason: CONSTIPATION Fenofibrate (Tricor(Nf)) 145 mg PO QAM [facility]; Protocol Last Admin: 04/01/18 08:53 Dose: 145 mg Finasteride (Proscar Tab*) 5 mg PO QPM [facility] Last Admin: 03/31/18 17:51 Dose: 5 mg Folic Acid (Folvite Tab*) 1 mg PO QAM [facility] Last Admin: 04/01/18 08:52 Dose: 1 mg Gabapentin (Neurontin Cap(*)) 400 mg PO BID [facility] Last Admin: 04/01/18 08:52 Dose: 400 mg Gabapentin (Neurontin Cap(*)) 100 mg PO BID [facility] Last Admin: 04/01/18 08:53 Dose: 100 mg Gabapentin (Neurontin Cap(*)) 400 mg PO 1200 [facility] Last Admin: 04/01/18 12:40 Dose: 400 mg Sodium Chloride (Ns 0.9% 1000 Ml*) 1,000 mls @ 100 mls/hr IV PER RATE [facility] Last Admin: 04/01/18 00:55 Dose: 100 mls/hr Cefepime HCl (Maxipime 1 Gm In Dextrose Duplex (*)) 1 gm in 50 mls @ 100 mls/ hr IV Q12H [facility] Last Admin: 04/01/18 11:12 Dose: 100 mls/hr Vancomycin HCl 750 mg/ Sodium (Chloride) 250 mls @ 166.667 mls/hr IVPB Q12H [facility] Last Admin: 04/01/18 09:15 Dose: 166.667 mls/hr Insulin Glargine (Lantus(*)) 28 units SUBCUT DAILY [facility] Last Admin: 04/01/18 08:54 Dose: 28 units Insulin Human Lispro (Humalog*) 0 units SUBCUT AC [facility]; Protocol Last Admin: 04/01/18 12:41 Dose: 10 units Insulin Human Lispro (Humalog*) 6 units SUBCUT AC [facility] Levothyroxine Sodium (Synthroid Tab*) 250 mcg PO 0600 [facility] Last Admin: 04/01/18 06:59 Dose: 250 mcg Lorazepam (Ativan Tab(*)) 1 mg PO TID PRN PRN Reason: ANXIETY Methenamine Hippurate (Hiprex Tab*) 1 gm PO BID [facility] Last Admin: 04/01/18 08:52 Dose: 1 gm Morphine Sulfate (Ms Contin(*)) 30 mg PO BID [facility] Last Admin: 04/01/18 08:52 Dose: 30 mg Omeprazole (Prilosec Cap*) 20 mg PO BID [facility] Last Admin: 04/01/18 08:52 Dose: 20 mg Oxycodone HCl (Roxycodone Tab*) 15 mg PO Q6H PRN PRN Reason: PAIN Last Admin: 03/30/18 18:17 Dose: 15 mg Pentoxifylline (Trental Cr Tab*) 400 mg PO TID [facility] Last Admin: 04/01/18 12:42 Dose: 400 mg Pharmacy Consult (Vancomycin Per Pharmacy*) 1 note FOLLOW UP . PRN PRN Reason: PER PROTOCOL Polyethylene Glycol/Electrolytes (Miralax*) 17 gm PO DAILY PRN PRN Reason: CONSTIPATION Rivaroxaban (Xarelto(*)) 20 mg PO QPM [facility] Last Admin: 03/31/18 17:51 Dose: 20 mg Silodosin (Rapaflo(Nf)) 8 mg PO QPM [facility] Last Admin: 03/31/18 17:52 Dose: Not Given Sucralfate (Carafate*) 1 gm PO ACHS [facility] Last Admin: 04/01/18 12:40 Dose: 1 gm Vital Signs - 8 hr 04/01/18 04/01/18 04/01/18 07:33 08:52 08:53 Temperature 98.2 F Pulse Rate 53 Respiratory 16 16 16 Rate Blood Pressure 127/61 (mmHg) O2 Sat by Pulse 94 Oximetry 04/01/18 04/01/18 04/01/18 11:12 11:13 12:40 Temperature Pulse Rate Respiratory 20 20 16 Rate Blood Pressure (mmHg) O2 Sat by Pulse Oximetry Oxygen Devices in Use Now: None Result Diagrams: 04/01/18 07:04 04/01/18 07:04 Microbiology and Other Data: Microbiology 03/30/18 14:49 Urine Culture - Preliminary Urine Staphylococcus Epidermidis 03/30/18 13:17 Blood Culture - Preliminary Blood Venous No Growth Day 1 03/30/18 13:02 Aerobic Blood Culture - Preliminary Blood Venous No Growth Day 1 Anaerobic Blood Culture - Preliminary No Growth Day 1 Assess/Plan/Problems-Billing Assessment: - Patient Problems (1) Weakness Current Visit: Yes Status: Acute Code(s): R53.1 - WEAKNESS SNOMED Code(s) : 31093901 Comment: -Likely due to UTI +/- Cellulitis of left foot---although S. epidermidis and Aerococcus urinae growing in Urine Cx -Agree w/Cefepime and Vanco -Continue to follow cultures---blood Cx (-) x 2 days -Continue wound care as recommended by Ms. Salvador -TSH WNL (2) UTI (urinary tract infection) Current Visit: Yes Status: Acute Comment: -As above (3) Cellulitis Current Visit: Yes Status: Acute Code(s): L03.90 - CELLULITIS, UNSPECIFIED SNOMED Code(s): 578334204 Comment: -As above (4) Diabetes 1.5, managed as type 2 Current Visit: Yes Status: Acute Code(s): E13.9 - OTHER SPECIFIED DIABETES MELLITUS WITHOUT COMPLICATIONS SNOMED Code(s): 196897787 Comment: -Continue Lantus and ISS -Will add Insulin lispro 6 units qAC as base pre-meals -Continue to monitor FS -Continue consistent carb diet to current heart healthy diet (5) Hypothyroidism Current Visit: Yes Status: Acute Code(s): E03.9 - HYPOTHYROIDISM, UNSPECIFIED SNOMED Code(s): 86810725 Comment: -Continue Levothyroxine -TSH WNL (6) Paroxysmal A-fib Current Visit: Yes Status: Acute Code(s): I48.0 - PAROXYSMAL ATRIAL FIBRILLATION SNOMED Code(s): 732684171 Comment: -On Amiodarone and Xarelto (7) DVT prophylaxis Current Visit: No Status: Acute Priority: Medium Onset Date: 05/21/14 Code(s): QDU0346 - SNOMED Code(s): 116401848 Comment: -On Xarelto Status and Disposition: -Continue PT and will await any further reccs
[2018-04-01] MEDS: Finasteride TAB* 5 MG PO SCH (18:06)
[2018-04-01] MEDS: Rivaroxaban TAB(*) 20 MG TAB PO SCH (18:06)
[2018-04-01] MEDS: Cyclobenzaprine TAB* 10 MG PO SCH (18:06)
[2018-04-01] MEDS: Atorvastatin* 80 MG TAB PO SCH (18:06)
[2018-04-01] MEDS: SILODOSIN 8 MG PO SCH (18:07)
[2018-04-01] MEDS: oxyCODONE TAB* 5 MG TAB PO PRN (22:55)
[2018-04-02] MEDS: Levothyroxine TAB* 125 MCG TAB PO SCH (05:09)
[2018-04-02] MEDS: NS 0.9% 1000 ML* 1,000 ML IV SCH (05:09)
[2018-04-02 06:13] LABS: ABS Basophils 0 10^3/ul (0-0.2); ABS Eosinophils 0.4 10^3/ul (0-0.6); ABS Lymphocytes 1.3 10^3/ul (1.0-4.8); ABS Monocytes 0.4 10^3/ul (0-0.8); ABS Neutrophils 2.7 10^3/ul (1.5-7.7); ABS Nucleated RBC 0 10^3/ul; Eosinophil % 7.4 %; Hematocrit 30 % (42-52); Hemoglobin 9.8 g/dl (14.0-18.0); Mean Corpuscular HGB Conc 33 g/dl (31-36); Mean Corpuscular Hemoglobin 28 pg (27-31); Mean Corpuscular Volume 85 fL (80-94); Mean Platelet Volume 7.1 fL (7.4-10.4); Nucleated Red Blood Cells % 0; Platelet Count 215 10^3/ul (150-450); Red Blood Count 3.52 10^6/ul (4.00-5.40); Red Cell Distribution Width 15 % (10.5-15); White Blood Count 4.8 10^3/ul (3.5-10.8)
[2018-04-02 06:31] LABS: Albumin 3.1 g/dL (3.2-5.2); Albumin/Globulin Ratio 1.2 (1-3); BUN/Creatinine Ratio 16.7 (8-20); Calcium 8.7 mg/dL (8.6-10.3); EGFR Non-African American 58.9 (>60); Globulin 2.5 g/dL (2-4); Magnesium 1.9 mg/dL (1.9-2.7); Phosphorus 2.5 mg/dL (2.5-5.0); Total Bilirubin 0.3 mg/dL (0.2-1.0); Total Protein 5.6 g/dL (6.4-8.9)
[2018-04-02] MEDS: Insulin LISPRO* 1 UNITS UNIT SUBCUT SCH ×6 (08:03→17:21)
[2018-04-02] MEDS: Omeprazole CAP* 20 MG PO SCH ×2 (08:28→20:02)
[2018-04-02] MEDS: Morphine TAB Extended Release (*) 30 MG TAB.ER PO SCH ×2 (08:30→22:11)
[2018-04-02] MEDS: Pentoxifylline CR TAB* 400 MG PO SCH ×3 (08:31→20:02)
[2018-04-02] MEDS: CMC:Fenofibrate(NF) 145 MG TAB PO SCH (08:31)
[2018-04-02] MEDS: Methenamine Hippurate TAB* 1 GM TAB PO SCH ×2 (08:32→20:01)
[2018-04-02] MEDS: CMC:Cyclosporine 0.05% OPHTH (NF) 0.4 ML VIAL BOTH EYES SCH ×2 (08:33→20:02)
[2018-04-02] MEDS: Folic Acid TAB* 1 MG PO SCH (08:34)
[2018-04-02] MEDS: Gabapentin CAP(*) 400 MG PO SCH ×3 (08:34→20:01)
[2018-04-02] MEDS: Sucralfate TAB* 1 GM PO SCH ×4 (08:34→20:00)
[2018-04-02] MEDS: Gabapentin CAP(*) 100 MG PO SCH ×2 (08:34→20:00)
[2018-04-02] MEDS: Amiodarone TAB* 200 MG PO SCH ×2 (08:39→20:01)
[2018-04-02] MEDS: Vancomycin(*) 750 MG in NS 0.9% 250 ML* 250 ML IVPB SCH ×2 (08:44→19:55)
[2018-04-02] MEDS: Insulin GLARGINE(*) 1 UNITS UNIT SUBCUT SCH (08:45)
[2018-04-02] MEDS: Cefepime 1 GM in Dextrose(*) 1 GM/50 ML BAG IV SCH ×2 (10:41→22:14)
--- NOTE | 2018-04-02 15:43 | PN ---
Subjective Date of Service: 04/02/18 Interval History: Pt seen and examined. Meds and labs reviewed. CC: N/A ROS: Denied DAVISON/dizziness, F/C, N/V, CP, SOB, increased cough, sputum production , abd pain, diarrhea, constipation, dysuria, myalgias, arthralgias, throat pain , and new skin lesions. The rest of the 14 point ROS are unremarkable. PHYSICAL EXAM: GEN APPEARANCE: Awake, not in acute distress, obese HEENT: NC/AT, PERRLA, moist oral mucosa, (-) throat erythema NECK: Soft, supple, (-) cervical LAD, (-)JVD HEART: S1S2 WNL, RRR, No MRG CHEST: CTA, BL, GAE, No W/R/R ABD: Soft, ND/NT, NABS 4x Q EXT: No C/C/LLE cdi dressing SKIN: Warm to touch PSYCH: No active psychosis, hallucinations, depression, SI/HI Objective Active Medications: Acetaminophen (Tylenol Tab*) 650 mg PO Q4H PRN PRN Reason: FEVER/PAIN Last Admin: 04/01/18 13:16 Dose: 650 mg Albuterol/Ipratropium (Duoneb (Albuterol 2.5 Mg/Ipratropium 0.5 Mg)) 1 neb INH QID PRN; Protocol PRN Reason: SHORTNESS OF BREATH Amiodarone HCl (Cordarone Tab*) 200 mg PO BID [facility] Last Admin: 04/02/18 08:39 Dose: 200 mg Atorvastatin Calcium (Lipitor*) 80 mg PO QPM [facility] Last Admin: 04/01/18 18:06 Dose: 80 mg Carboxymethylcellulose/Glycerin (Refresh Optive Gel Eye Gel) 1 applic BOTH EYES DAILY PRN PRN Reason: DRY EYE Last Admin: 03/31/18 21:18 Dose: 1 applic Cyclobenzaprine HCl (Flexeril Tab*) 10 mg PO QPM [facility] Last Admin: 04/01/18 18:06 Dose: 10 mg Cyclosporine (Restasis 0.05% Ophth) 1 drop BOTH EYES BID [facility]; Protocol Last Admin: 04/02/18 08:33 Dose: 1 drop Dextrose (D50w Syringe 50 Ml*) 12.5 gm IV PUSH .FOR FS < 60 - SS PRN PRN Reason: FS < 60 Docusate Sodium (Colace Cap*) 200 mg PO DAILY PRN PRN Reason: CONSTIPATION Last Admin: 04/02/18 00:01 Dose: 200 mg Fenofibrate (Tricor(Nf)) 145 mg PO QAM [facility]; Protocol Last Admin: 04/02/18 08:31 Dose: 145 mg Finasteride (Proscar Tab*) 5 mg PO QPM [facility] Last Admin: 04/01/18 18:06 Dose: 5 mg Folic Acid (Folvite Tab*) 1 mg PO QAM [facility] Last Admin: 04/02/18 08:34 Dose: 1 mg Gabapentin (Neurontin Cap(*)) 400 mg PO BID [facility] Last Admin: 04/02/18 08:34 Dose: 400 mg Gabapentin (Neurontin Cap(*)) 100 mg PO BID [facility] Last Admin: 04/02/18 08:34 Dose: 100 mg Gabapentin (Neurontin Cap(*)) 400 mg PO 1200 [facility] Last Admin: 04/02/18 12:13 Dose: 400 mg Sodium Chloride (Ns 0.9% 1000 Ml*) 1,000 mls @ 100 mls/hr IV PER RATE [facility] Last Admin: 04/02/18 05:09 Dose: 100 mls/hr Cefepime HCl (Maxipime 1 Gm In Dextrose Duplex (*)) 1 gm in 50 mls @ 100 mls/ hr IV Q12H [facility] Last Admin: 04/02/18 10:41 Dose: 100 mls/hr Vancomycin HCl 750 mg/ Sodium (Chloride) 250 mls @ 166.667 mls/hr IVPB Q12H [facility] Last Admin: 04/02/18 08:44 Dose: 166.667 mls/hr Insulin Glargine (Lantus(*)) 28 units SUBCUT DAILY [facility] Last Admin: 04/02/18 08:45 Dose: 28 units Insulin Human Lispro (Humalog*) 0 units SUBCUT AC [facility]; Protocol Last Admin: 04/02/18 12:20 Dose: 2 units Insulin Human Lispro (Humalog*) 6 units SUBCUT AC [facility] Last Admin: 04/02/18 12:20 Dose: 6 units Levothyroxine Sodium (Synthroid Tab*) 250 mcg PO 0600 [facility] Last Admin: 04/02/18 05:09 Dose: 250 mcg Lorazepam (Ativan Tab(*)) 1 mg PO TID PRN PRN Reason: ANXIETY Methenamine Hippurate (Hiprex Tab*) 1 gm PO BID [facility] Last Admin: 04/02/18 08:32 Dose: 1 gm Morphine Sulfate (Ms Contin(*)) 30 mg PO BID [facility] Last Admin: 04/02/18 08:30 Dose: 30 mg Omeprazole (Prilosec Cap*) 20 mg PO BID [facility] Last Admin: 04/02/18 08:28 Dose: 20 mg Oxycodone HCl (Roxycodone Tab*) 15 mg PO Q6H PRN PRN Reason: PAIN Last Admin: 04/01/18 22:55 Dose: 15 mg Pentoxifylline (Trental Cr Tab*) 400 mg PO TID [facility] Last Admin: 04/02/18 13:34 Dose: 400 mg Pharmacy Consult (Vancomycin Per Pharmacy*) 1 note FOLLOW UP . PRN PRN Reason: PER PROTOCOL Polyethylene Glycol/Electrolytes (Miralax*) 17 gm PO DAILY PRN PRN Reason: CONSTIPATION Last Admin: 04/02/18 00:01 Dose: 17 gm Rivaroxaban (Xarelto(*)) 20 mg PO QPM [facility] Last Admin: 04/01/18 18:06 Dose: 20 mg Silodosin (Rapaflo(Nf)) 8 mg PO QPM [facility] Last Admin: 04/01/18 18:07 Dose: Not Given Sucralfate (Carafate*) 1 gm PO ACHS [facility] Last Admin: 04/02/18 12:14 Dose: 1 gm Vital Signs - 8 hr 04/02/18 04/02/18 04/02/18 08:20 08:30 08:34 Temperature Pulse Rate Respiratory 18 18 18 Rate Blood Pressure (mmHg) O2 Sat by Pulse Oximetry 04/02/18 04/02/18 11:25 12:13 Temperature 97.6 F Pulse Rate 55 Respiratory 16 16 Rate Blood Pressure 140/53 (mmHg) O2 Sat by Pulse 94 Oximetry Oxygen Devices in Use Now: None Result Diagrams: 04/02/18 05:55 04/02/18 05:55 Microbiology and Other Data: Microbiology 03/30/18 14:49 Urine Culture - Preliminary Urine Staphylococcus Epidermidis 03/30/18 13:17 Blood Culture - Preliminary Blood Venous No Growth Day 1 03/30/18 13:02 Aerobic Blood Culture - Preliminary Blood Venous No Growth Day 1 Anaerobic Blood Culture - Preliminary No Growth Day 1 Assess/Plan/Problems-Billing Assessment: - Patient Problems (1) Weakness Current Visit: Yes Status: Acute Code(s): R53.1 - WEAKNESS SNOMED Code(s) : 82801375 Comment: -Likely due to UTI +/- Cellulitis of left foot---although S. epidermidis and Aerococcus urinae growing in Urine Cx -Agree w/Cefepime and Vanco -Continue to follow cultures---blood Cx (-) x 2 days -Continue wound care as recommended by Ms. Salvador -TSH WNL (2) UTI (urinary tract infection) Current Visit: Yes Status: Acute Comment: -As above (3) Cellulitis Current Visit: Yes Status: Acute Code(s): L03.90 - CELLULITIS, UNSPECIFIED SNOMED Code(s): 583279387 Comment: -As above (4) Diabetes 1.5, managed as type 2 Current Visit: Yes Status: Acute Code(s): E13.9 - OTHER SPECIFIED DIABETES MELLITUS WITHOUT COMPLICATIONS SNOMED Code(s): 376867114 Comment: -Improved control -Continue Lantus and ISS -Continue pre-meal insulin w/ISS for titration -Continue to monitor FS -Continue consistent carb diet to current heart healthy diet (5) Hypothyroidism Current Visit: Yes Status: Acute Code(s): E03.9 - HYPOTHYROIDISM, UNSPECIFIED SNOMED Code(s): 47881601 Comment: -Continue Levothyroxine -TSH WN (6) Paroxysmal A-fib Current Visit: Yes Status: Acute Code(s): I48.0 - PAROXYSMAL ATRIAL FIBRILLATION SNOMED Code(s): 242288235 Comment: -On Amiodarone and Xarelto (7) DVT prophylaxis Current Visit: No Status: Acute Priority: Medium Onset Date: 05/21/14 Code(s): BIL0087 - SNOMED Code(s): 679659126 Comment: -On Xarelto Status and Disposition: -Continue PT and will await any further reccs
[2018-04-02] MEDS: Rivaroxaban TAB(*) 20 MG TAB PO SCH (17:16)
[2018-04-02] MEDS: Atorvastatin* 80 MG TAB PO SCH (17:16)
[2018-04-02] MEDS: SILODOSIN 8 MG PO SCH (17:16)
[2018-04-02] MEDS: Finasteride TAB* 5 MG PO SCH (17:17)
[2018-04-02] MEDS: Cyclobenzaprine TAB* 10 MG PO SCH (17:20)
[2018-04-03] MEDS: oxyCODONE TAB* 5 MG TAB PO PRN ×2 (00:07→14:50)
[2018-04-03] MEDS: Levothyroxine TAB* 125 MCG TAB PO SCH (04:51)
[2018-04-03] MEDS: Acetaminophen TAB* 325 MG PO PRN (06:45)
[2018-04-03] MEDS: NS 0.9% 1000 ML* 1,000 ML IV SCH (07:34)
[2018-04-03] MEDS: Insulin GLARGINE(*) 1 UNITS UNIT SUBCUT SCH (08:46)
[2018-04-03] MEDS: Insulin LISPRO* 1 UNITS UNIT SUBCUT SCH ×6 (08:46→15:06)
[2018-04-03] MEDS: CMC:Fenofibrate(NF) 145 MG TAB PO SCH (08:47)
[2018-04-03] MEDS: Pentoxifylline CR TAB* 400 MG PO SCH ×2 (08:47→12:35)
[2018-04-03] MEDS: Methenamine Hippurate TAB* 1 GM TAB PO SCH (08:47)
[2018-04-03] MEDS: Amiodarone TAB* 200 MG PO SCH (08:48)
[2018-04-03] MEDS: Omeprazole CAP* 20 MG PO SCH (08:48)
[2018-04-03] MEDS: Sucralfate TAB* 1 GM PO SCH ×2 (08:48→12:35)
[2018-04-03] MEDS: Morphine TAB Extended Release (*) 30 MG TAB.ER PO SCH (08:48)
[2018-04-03] MEDS: Gabapentin CAP(*) 100 MG PO SCH (08:48)
[2018-04-03] MEDS: CMC:Cyclosporine 0.05% OPHTH (NF) 0.4 ML VIAL BOTH EYES SCH ×2 (08:49→10:19)
[2018-04-03] MEDS: Gabapentin CAP(*) 400 MG PO SCH ×2 (08:49→12:34)
[2018-04-03] MEDS: Folic Acid TAB* 1 MG PO SCH (08:49)
[2018-04-03] MEDS: Vancomycin(*) 750 MG in NS 0.9% 250 ML* 250 ML IVPB SCH (08:56)
[2018-04-03] MEDS: Cefepime 1 GM in Dextrose(*) 1 GM/50 ML BAG IV SCH (11:14)
[2018-04-03] MEDS ORDERED: cefTRIAXone(*) 1 GM in NS 0.9% 50 ML* 50 ML IVPB ONE (14:41)
--- NOTE | 2018-04-03 15:21 | PN ---
Progress Note - Progress Note Date of Service: 04/03/18 Note: Time spent on discharge including exam of patient, discussion with pt, nurse, CM , pharmacists, review of EMR and preparation of discharge documents is 45 minutes.
[2018-04-03 16:30] VITALS: BP 152/70
--- NOTE | 2018-04-03 20:34 | DS ---
CC: Dr. Cha DISCHARGE SUMMARY: DATE OF ADMISSION: DATE OF DISCHARGE: 04/03/18 HOSPITAL COURSE: This 77-year-old man presented with shaking, weakness, and some suprapubic pain. Rossy butler has had a Schuster catheter for about a month and a half. He has been followed by Dr. Alejandra. He had his catheter changed approximately a week and a half to 2 weeks before admission. The rest of the hi story is detailed in the admission note. The patient was treated with cefepime and vancomycin. He has a chronic wound on his left foot and th ere was some concern about that. The patient felt that his wound shrank more than he would have expe cted, perhaps he would not have expected to shrink at all. He attributed this to the antibiotics he was getting. He had an MRI of the left lower extremity, which did not show any evidence of osteomyelitis or joint infection. He was seen in consultation by the orthopedic PA, who did not feel any surgical intervent ion was needed. There were also 2 small ulcers on the right lateral ankle and Achilles region withou t need for surgical intervention. I note the patient has padded boots for both feet. The patient's Schuster catheter was changed on the day of discharge. He received 1 g of ceftriaxone and about the same time, he will take 7 days of cefuroxime 500 mg b.i.d. starting the morning after disc harge. FINAL DIAGNOSES: 1. Urinary tract infection with aerococcus and Staphylococcus epidermidis. 2. Diabetes. 3. Chronic left foot ulcer. 4. Chronic Schuster catheter. 5. Hypothyroidism with normal TSH on 04/01/18. 6. Paroxysmal atrial fibrillation. DISCHARGE MEDICATIONS: 1. Cefuroxime 500 mg b.i.d. for 7 days. 2. Pentoxifylline 400 mg t.i.d. 3. Methenamine hippurate 1 g b.i.d. 4. Rivaroxaban 20 mg h.s. 5. Testosterone 200 mg IM every 10 days. 6. Glipizide 5 mg b.i.d. 7. Polyethylene glycol 17 g daily p.r.n. 8. Acetaminophen 325 mg every 4 hours p.r.n. 9. Refresh gel both eyes daily p.r.n. 10. Mometasone 0.1% topical every day p.r.n. 11. Fluocinolone 0.01% topical daily p.r.n. 12. Cyclosporine 0.05% one drop both eyes b.i.d. 13. Finasteride 5 mg daily. 14. Fenofibrate 145 mg daily. 15. Pantoprazole 40 mg b.i.d. 16. Cyclobenzaprine 10 mg daily. 17. Nitroglycerin 0.4 mg every 5 minutes p.r.n. 18. Lovaza 1 g b.i.d. 19. Rosuvastatin 40 mg h.s. 20. Folic acid 1 g daily. 21. Combivent Respimat 1 puff four times a day p.r.n. 22. Morphine extended release 30 mg b.i.d. 23. Oxycodone 15 mg every 6 hours p.r.n. 24. Docusate 200 mg daily p.r.n. 25. Ferrous sulfate 325 mg daily. 26. Furosemide 20 mg daily. 27. Nystatin and triamcinolone b.i.d. p.r.n. 28. Ondansetron 4 mg every 6 hours p.r.n. 29. Sucralfate 1 g before meals and at bedtime. 30. Nystatin topical powder b.i.d. p.r.n. 31. Gabapentin 400 mg as prescribed. 32. Detemir insulin 28 units daily. 33. Levothyroxine 250 mcg daily. 34. Silodosin 8 mg h.s. 35. Lorazepam 1 mg t.i.d . p.r.n. 36. Gabapentin 500 mg b.i.d. 37. Amiodarone 200 mg b.i.d. CONDITION ON DISCHARGE: Improved. DISPOSITION ON DISCHARGE: Discharged home. [id number]/[facility] #: [id number]
[2018-04-04] MEDS ORDERED: ceFUROXime TAB(*) 250 MG PO SCH (09:00)
== END 2018-04-03 16:35 | disposition home or self-care (01) | DRG 690 ==
LOC: ED 12:29 → MED 16:43
PROVIDERS: ADMIT Internal Medicine; ATTEND Internal Medicine
DX: N39.0 Urinary tract infection, site not specified (principal); L03.116 Cellulitis of left lower limb; L97.319 Non-pressure chronic ulcer of right ankle with unspecified severity; K59.00 Constipation, unspecified; J44.9 Chronic obstructive pulmonary disease, unspecified; G47.30 Sleep apnea, unspecified; K21.9 Gastro-esophageal reflux disease without esophagitis; K22.70 Barrett's esophagus without dysplasia; I25.10 Atherosclerotic heart disease of native coronary artery without angina pectoris; E78.00 Pure hypercholesterolemia, unspecified; I10 Essential (primary) hypertension; M81.0 Age-related osteoporosis without current pathological fracture; Z96.642 Presence of left artificial hip joint; R40.2412 Glasgow coma scale score 13-15, at arrival to emergency department; I48.0 Paroxysmal atrial fibrillation; N40.0 Benign prostatic hyperplasia without lower urinary tract symptoms; E78.5 Hyperlipidemia, unspecified; B95.7 Other staphylococcus as the cause of diseases classified elsewhere; E11.621 Type 2 diabetes mellitus with foot ulcer; L97.529 Non-pressure chronic ulcer of other part of left foot with unspecified severity; R25.1 Tremor, unspecified; F41.9 Anxiety disorder, unspecified; E03.9 Hypothyroidism, unspecified; M19.90 Unspecified osteoarthritis, unspecified site; M06.9 Rheumatoid arthritis, unspecified; E11.40 Type 2 diabetes mellitus with diabetic neuropathy, unspecified; Z98.42 Cataract extraction status, left eye; Z98.41 Cataract extraction status, right eye; Z90.49 Acquired absence of other specified parts of digestive tract; Z88.1 Allergy status to other antibiotic agents; Z91.018 Allergy to other foods; Z95.1 Presence of aortocoronary bypass graft; Z95.5 Presence of coronary angioplasty implant and graft; Z89.422 Acquired absence of other left toe(s); Z85.01 Personal history of malignant neoplasm of esophagus; Z83.3 Family history of diabetes mellitus; Z80.0 Family history of malignant neoplasm of digestive organs; Z82.0 Family history of epilepsy and other diseases of the nervous system; Z86.19 Personal history of other infectious and parasitic diseases; Z87.891 Personal history of nicotine dependence; Z79.84 Long term (current) use of oral hypoglycemic drugs
CPT/HCPCS: 36415; 70450; 71045; 80048; 80053; 80202; 81003; 81015; 83605; 83735; 83880; 84100; 84443; 84484; 85025; 85610; 85730; 86140; 87040; 87077; 87086; 87186; 93005; 99283; A9270-GY; G8978-GP-CJ; G8979-GP-CI; J0692; J0696; J2543; J3370

== ENCOUNTER 2018-07-31 22:21 | Inpatient (IN) | payer MEDICARE ==
[2018-07-31] MEDS ORDERED: NS 0.9% 1000 ML** 1,000 ML IV.FLUID IV ONE (22:30)
--- NOTE | 2018-07-31 22:30 | ED ---
HPI Febrile Illness - HPI Summary HPI Summary: A 77 y/o M brought in by ambulance presents to ED with c/o sudden-onset fever ( 100.6 F) this evening. He was home most of the day and at baseline. Associated sx: chills, tremulous, dysuria. Denies DAVISON, CP, cold-like sx. He has had UTIs previously. His last UTI was about 4-5 months ago, which he was hospitalized for. He denies recent tick bites. Former smoker. - History of Current Complaint Chief Complaint: EDFever Time Seen by Provider: 07/31/18 22:26 Hx Obtained From: Patient Onset/Duration: Still Present Timing: Constant Temperature: 38.5 C - in ED Initial Severity: Mild Current Severity: Mild Pain Intensity: 2 Pain Scale Used: 0-10 Numeric Associated Signs and Symptoms: Chills, Dysuria, Other: - pos: tremulous. neg: DAVISON , CP, cold-like sx - Additional Pertinent History Primary Care Physician: MARILY - Allergy/Home Medications Allergies/Adverse Reactions: Allergies Allergy/AdvReac Type Severity Reaction Status Date / Time cephalexin [From Keflex] Allergy GI Upset Verified 07/31/18 22:28 ciprofloxacin Allergy GI Upset Verified 07/31/18 22:28 metronidazole Allergy Nausea And Verified 07/31/18 22:28 Vomiting BANANAS Allergy Mild See Comment Uncoded 07/31/18 22:28 WALNUTS Allergy Mild See Comment Uncoded 07/31/18 22:28 PMH/Surg Hx/FS Hx/Imm Hx Previously Healthy: No Endocrine/Hematology History: Reports: Hx Diabetes - NIDDM, Hx Thyroid Disease Denies: Hx Anticoagulant Therapy, Hx Blood Disorders, Hx Blood Transfusions, Hx Bone Marrow Disease, Hx Sickle Cell Disease Cardiovascular History: Reports: Hx Angina, Hx Angioplasty, Hx Coronary Artery Disease, Hx Hypercholesterolemia, Hx Hypertension, Other Cardiovascular Problems /Disorders - HISTORY OF ATRIAL FIBRILLARION Denies: Hx Congestive Heart Failure, Hx Myocardial Infarction, Hx Pacemaker/ ICD, Hx Valvular Heart Disease Respiratory History: Reports: Hx Chronic Obstructive Pulmonary Disease (COPD), Hx Sleep Apnea Denies: Hx Asthma GI History: Reports: Hx Gall Bladder Disease - removed, Hx Gastroesophageal Reflux Disease, Hx Hiatal Hernia, Hx Ulcer, Other GI Disorders - Barretts esophagus History: Denies: Hx Renal Disease Musculoskeletal History: Reports: Hx Arthritis - ARTHRITIS, Hx Rheumatoid Arthritis, Hx Back Problems, Hx Osteoporosis Sensory History: Reports: Hx Cataracts - RIGHT EYE, Hx Contacts or Glasses, Hx Eye Injury, Hx Vision Problem Denies: Hx Eye Prosthesis, Hx Glaucoma, Hx Legally Blind, Hx Macular Degeneration, Hx Deafness, Hx Hearing Aid, Hx Hearing Problem, Other Sensory Impairments Opthamlomology History: Reports: Hx Cataracts - RIGHT EYE, Hx Contacts or Glasses, Hx Eye Injury, Hx Vision Problem Denies: Hx Eye Prosthesis, Hx Glaucoma, Hx Legally Blind, Hx Macular Degeneration, Other Sensory Impairments Neurological History: Reports: Other Neuro Impairments/Disorders - diabetic neuropathy (feet) Denies: Hx Dementia, Hx Developmental Delay, Hx Headaches, Hx Migraine, Hx Nerve Disease, Hx Seizures, Hx Spinal Cord Injury, Hx Transient Ischemic Attacks (TIA) Psychiatric History: Reports: Hx Anxiety Denies: Hx Panic Disorder - Cancer History Cancer Type, 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 FEET - [place]. NASAL - CLEAR THE PASSAGE. LEFT 5TH TOE AMPUTATION Hx Anesthesia Reactions: No - Immunization History Date of Tetanus Vaccine: Infectious Disease History: No Infectious Disease History: Reports: Hx Clostridium Difficile - 2017, Hx Hepatitis - CURED Denies: Hx Human Immunodeficiency Virus (HIV), Hx of Known/Suspected MRSA, Hx Shingles, Hx Tuberculosis, Hx Known/Suspected VRE, Hx Known/Suspected VRSA, History Other Infectious Disease, Traveled Outside the [place] in Last 30 Days - Family History Known Family History: Positive: Diabetes, Other - alzheimer's and colon CA - Social History Occupation: Retired Lives: With Family Alcohol Use: None Hx Substance Use: No Substance Use Type: Reports: None Hx Tobacco Use: Yes Smoking Status (MU): Former Smoker Type: Cigarettes Amount Used/How Often: 1.5ppd Length of Time of Smoking/Using Tobacco: 50 years Have You Smoked in the Last Year: No Review of Systems Positive: Fever, Chills, Other - pos: tremulous Negative: Sore Throat, Ear Ache, Nasal Discharge Negative: Chest Pain Negative: Cough Positive: dysuria Negative: Headache All Other Systems Reviewed And Are Negative: Yes Physical Exam - Summary Physical Exam Summary: Appearance: Well-appearing, Well-nourished, elderly M lying in bed with shaking chills, does not appear toxic Skin: Warm, dry, no obvious rash Eyes: sclera anicteric, no conjunctival pallor ENT: mucous membranes moist, pharynx appears normal Neck: Supple, nontender Respiratory: Clear to auscultation, no signs of respiratory distress Cardiovascular: Normal S1, S2. No murmurs. Normal distal pulses in tibial and radial bilaterally. Abdomen: Soft, nontender, normal active bowel sounds present Musculoskeletal: Normal, Strength/ROM Intact Neurological: A&Ox3, awake and alert, mentation is normal, speech is fluent and appropriate Psychiatric: affect is normal, does not appear anxious or depressed Triage Information Reviewed: Yes Vital Signs On Initial Exam: Initial Vitals Temp Pulse Resp BP Pulse Ox 101.3 F 82 20 173/69 91 07/31/18 22:25 07/31/18 22:25 07/31/18 22:25 07/31/18 22:25 07/31/18 22:25 Vital Signs Reviewed: Yes Diagnostics - Vital Signs Vital Signs Temp Pulse Resp BP Pulse Ox 07/31/18 22:25 101.3 F 82 20 173/69 91 - Laboratory Result Diagrams: 07/31/18 23:01 07/31/18 23:01 Lab Statement: Any lab studies that have been ordered have been reviewed, and results considered in the medical decision making process. - Radiology CXR Radiology Interpretation Completed By: ED Physician Summary of Radiographic Findings: No acute process. Re-Evaluation - Re-Evaluation 1 Re-Evaluation Time: 01:04 Comment: Discussing results with pt. Course/Dx - Course Course Of Treatment: Pt is a 77 y/o M presenting with sudden-onset fever (100.6 F) and chills this evening. Associated sx: dysuria. PMHx: UTIs that required hospitalization. Lab work shows WBC: 13.9, creatinine: 1.95, glucose: 332. UA shows 3+ glucose. Rapid flu A and B are negative. CXR shows no acute process. Consulted with Dr. Adams, hospitalist, who will admit patient. - Diagnoses Provider Diagnoses: Fever, Shaking chills - Provider Notifications Discussed Care Of Patient With: Alisa Adams - hospitalist Time Discussed With Above Provider: 01:06 Instructed by Provider To: Admit As Inpatient Discharge - Sign-Out/Discharge Documenting (check all that apply): Patient Departure - ADMIT Patient Received Moderate/Deep Sedation with Procedure: No - Discharge Plan Condition: Fair Disposition: ADMITTED TO [facility] - Billing Disposition and Condition Condition: FAIR Disposition: Admitted to [facility] - Attestation Statements Document Initiated by Scribe: Yes Documenting Scribe: Sanjana Fontaine Provider For Whom Julita is Documenting (Include Credential): Dr. Dawson Puckett MD Scribe Attestation: I, Sanjana Fontiane, scribed for Dr. Dawson Puckett MD on 08/01/18 at 0436. Scribe Documentation Reviewed: Yes Provider Attestation: The documentation as recorded by the nateibSanjana butler accurately reflects the service I personally performed and the decisions made by me, Dr. Dawson Puckett MD Status of Scribe Document: Viewed
[2018-07-31] MEDS ORDERED: Acetaminophen TAB* 325 MG PO ONE (22:58)
[2018-07-31 23:09] LABS: Urine Appearance Clear; Urine Bilirubin Negative (Negative); Urine Blood Negative (Negative); Urine Color Yellow; Urine Glucose 3+(>=500 mg/dL) (Negative); Urine Ketones Negative (Negative); Urine Nitrite Negative (Negative); Urine Protein Negative (Negative); Urine Specific Gravity 1.014 (1.010-1.030); Urine Urobilinogen Negative (Negative)
[2018-07-31 23:11] LABS: Hematocrit 43 % (36-46); Hemoglobin 13.9 g/dL (14.0-18.0); Mean Corpuscular HGB Conc 33 g/dL (31-36); Mean Corpuscular Hemoglobin 29 pg (27-31); Mean Corpuscular Volume 88 fL (80-94); Mean Platelet Volume 7.2 fL (7.4-10.4); Platelet Count 182 10^3/uL (150-450); Red Blood Count 4.83 10^6 /uL (4.18-5.48); Red Cell Distribution Width 14 % (10.5-15); White Blood Count 13.9 10^3/uL (3.5-10.8)
[2018-07-31 23:15] LABS: ABS Basophils 0 10^3/ul (0-0.2); ABS Eosinophils 0.1 10^3/ul (0-0.6); ABS Lymphocytes 0.3 10^3/ul (1.0-4.8); ABS Monocytes 0.6 10^3/ul (0-0.8); ABS Nucleated RBC 0 10^3/ul; Eosinophil % 0.4 %; Lymphocyte % 2.2 %; Nucleated Red Blood Cells % 0.1
[2018-07-31 23:21] LABS: Activated Partial Thrombo Time 31.4 seconds (26.0-36.3); INR 1.1 (0.82-1.09)
[2018-07-31 23:25] LABS: Influenza A Molecular NEGATIVE (Negative); Influenza B Molecular NEGATIVE (Negative)
[2018-07-31 23:29] LABS: Albumin 4.2 g/dL (3.2-5.2); Albumin/Globulin Ratio 1.5 (1-3); BUN/Creatinine Ratio 13.3 (8-20); Calcium 9.5 mg/dL (8.6-10.3); EGFR African American 40.7 (>60); EGFR Non-African American 33.6 (>60); Globulin 2.8 g/dL (2-4); Potassium 4.5 mmol/L (3.5-5.0); Total Bilirubin 0.5 mg/dL (0.2-1.0)
[2018-07-31 23:31] LABS: Troponin I 0.01 ng/mL (<0.04)
[2018-08-01] MEDS ORDERED: Acetaminophen TAB* 325 MG PO PRN (01:46)
[2018-08-01] MEDS ORDERED: Ondansetron INJ* 2 MG/ML VIAL IV PRN (01:46)
[2018-08-01] MEDS ORDERED: Al Hydrox/Mg Hydrox/Simet LIQ* 30 ML UDC PO PRN (01:46)
[2018-08-01] MEDS ORDERED: Azithromycin 500 mg/250 ml NS 500 MG/250 ML BAG IVPB ONE (01:49)
[2018-08-01] MEDS ORDERED: cefTRIAXone(*) 1 GM in NS 0.9% 50 ML* 50 ML IVPB ONE (01:49)
[2018-08-01] MEDS ORDERED: [UNRECOGNIZED DRUG - OTHER] TOPICAL PRN (01:50)
[2018-08-01] MEDS ORDERED: Docusate CAP* 100 MG PO PRN (01:50)
[2018-08-01] MEDS ORDERED: Nystatin TOP POWDER* 15 GM BTL TOPICAL PRN (01:50)
[2018-08-01] MEDS ORDERED: LORazepam TAB(*) 1 MG PO PRN (01:50)
[2018-08-01] MEDS ORDERED: Albuterol/Ipratropium NEB.SOL* Albuterol 2.5 MG/Ipratropium 0.5 MG 3 ML INH PRN (01:50)
[2018-08-01] MEDS ORDERED: Cyclobenzaprine TAB* 10 MG PO PRN (01:50)
[2018-08-01] MEDS ORDERED: Dextrose 50% Syringe 50 ML* 25 GM/50 ML SYRINGE IV PUSH PRN ×2 (01:56→09:01)
[2018-08-01] MEDS: Lactated Ringers 1000 ML Bag* 1,000 ML IV SCH ×2 (03:39→17:42)
[2018-08-01] MEDS: oxyCODONE TAB* 5 MG TAB PO PRN ×2 (03:49→11:29)
--- NOTE | 2018-08-01 04:08 | HP ---
CC: Jamie Cha MD * HISTORY AND PHYSICAL: DATE OF ADMISSION: 08/01/18 TIME OF EVALUATION: 0200 PRIMARY CARE PHYSICIAN: Jamie Cha MD. CHIEF COMPLAINT: Fever and urinary frequency. HISTORY OF PRESENT ILLNESS: This is a 77-year-old male with a past medical history of COPD, BPH, and a history of UTI, who presents to the emergency room with acute onset of fever and urinary frequency. The patient states he was in his usual state of health, and around 6 p.m., he had acute onset of shaking, chills, and fever of 101.7. He was also noted to have urinary frequency. He denied any URI symptoms. No cough, no shortness of breath, no congestion, no chest pain. No nausea, vomiting, or diarrhea. No abdominal pain. No rash. No rectal pain. He states he celebrated the passover the night before last and stated that the wine tasted terrible. He denies any neck tenderness. No headache, no vision changes. No recent changes in his medications. He has had decreased appetite since 6 p.m. this evening. Otherwise, remaining review of systems is negative. In the emergency room, the patient had labs and imaging, and he was referred to the hospitalist service for further evaluation. PAST MEDICAL HISTORY: 1. History of diabetes with neuropathy. 2. History of chronic wounds. 3. History of a central tremor. 4. History of hypothyroidism. 5. History of constipation. 6. BPH. 7. Hyperlipidemia. 8. GERD. 9. Paroxysmal atrial fibrillation, on anticoagulation. 10. Diabetes. 12. COPD, on room air. 13. Anxiety. 14. Coronary artery disease, status post PCI. PAST SURGICAL HISTORY: 1. Left hip arthroplasty. 2. Cholecystectomy. 3. Cataracts bilaterally. 4. History of appendectomy. 5. History of coronary artery disease, status post stents. 6. Bilateral foot surgery. 7. Left fifth toe amputation. MEDICATIONS: 1. Lorazepam 1 mg t.i.d. as needed for anxiety. 2. Combivent every 4 hours as needed. 3. Folic acid 1 mg daily. 4. Crestor 40 mg daily. 5. Ferrous sulfate 325 mg daily. 6. Lovaza 1 g b.i.d. 7. Xarelto 20 mg daily. 8. Glipizide XL 5 mg p.o. b.i.d. 9. Nitroglycerin sublingual as needed for chest pain. 10. Levemir 28 units in the evening. 11. Amiodarone 200 mg p.o. b.i.d. 12. Cyclobenzaprine 10 mg in the evening as needed. 13. Pantoprazole 40 mg p.o. b.i.d. 14. Oxycodone 15 mg every 6 hours as needed. 15. Fenofibrate 145 mg daily. 16. Morphine sulfate 30 mg p.o. b.i.d. 17. Finasteride 5 mg p.o. daily. 18. Hiprex 1 g p.o. b.i.d. 19. Lasix 20 mg daily in the morning. 20. Colace 200 mg in the evening. 21. Synthroid 250 mcg daily. 22. Testosterone. 23. Nystatin topical as needed. 24. Gabapentin 500 mg p.o. t.i.d. 25. Restasis 1 drop to both eyes b.i.d. 26. Fluocinolone 0.01% as needed. 27. Carafate 1 g a.c. and q.h.s. 28. Pentoxifylline 400 mg p.o. t.i.d. 29. Zofran 4 mg as needed. ALLERGIES: KEFLEX, CIPROFLOXACIN, METRONIDAZOLE, bananas, walnuts. FAMILY HISTORY: Reviewed and noncontributory. SOCIAL HISTORY: The patient lives at home with his who is his healthcare proxy. He ambulates with a walker. He quit smoking 12 years ago. At that time , he was a pack and a half a day for 50 years. No alcohol or illicit drug use. No recent falls. CODE STATUS: Full code. REVIEW OF SYSTEMS: A 14-point review of systems as mentioned in the HPI, otherwise negative. PHYSICAL EXAMINATION GENERAL: Mildly ill-appearing, tachypneic, no acute distress. VITAL SIGNS: T-max is 101.3, pulse rate 89, respiratory rate 23, oxygen saturation 93% on 2 L, blood pressure 173/96. HEENT: Head: Normocephalic. Pupils equal, reactive, anicteric. Oropharynx: Mucous membranes are moist. Lips are dry. Adnexa full. No nuchal rigidity. RESPIRATORY: Diminished breath sounds. No wheezes, rhonchi, or rales. CARDIAC: Regular rate and rhythm. Soft systolic murmur heard throughout. ABDOMEN: Soft, nontender, and nondistended. EXTREMITIES: No clubbing, cyanosis or edema. +1 DPs. NEUROLOGIC: Alert and oriented x3. No gross focal neurologic deficits. DIAGNOSTIC STUDIES/LAB DATA: hemoglobin 13.9, hematocrit 43, platelets 182. INR is 1.10. Sodium 137, potassium 4.5, chloride 102, bicarb 27, BUN 26, creatinine 1.95, glucose 332. Lactic acid 1.8, troponin 0.01. Urine is negative except for +3 glucose. Flu is negative. Radiographic data: Question of increased opacity in the right lower lobe. ASSESSMENT: A 77-year-old male with past medical history of chronic obstructive pulmonary disease with a recent admission back in March for a urinary tract infection, who presents to the emergency room with acute onset of fever and urinary frequency. 1. Fever. Assessment: The patient's urinalysis is unremarkable essentially ruling out a urinary tract infection. He does appear tachypneic requiring oxygen and there is a question of an infiltrate on the chest x-ray on my read. Plan: I am going to treat him as if he has community acquired pneumonia. At this point, we will start him on ceftriaxone and azithromycin. Recommend followup on the chest x-ray official read. Consider further imaging if no clinical improvement. Follow up on the blood cultures and start him on IV fluids. 2. Acute kidney injury. The patient with a bump in his BUN and creatinine, likely in the setting of infection and hypovolemia. Plan: Continue lactated Ringer at 100 cc/hr and follow up labs in the morning. Renally dose his medications. We will hold his Lasix for now. 3. Chronic medical problems. Diabetes: Hold his oral agents. Please continue him on Lantus and placed on Levemir and Lispro sliding scale. Hypertension. Continue his agents. We will hold his Lasix, and at this time getting IV fluids and appearing dry. Otherwise, we will resume his home medications as prescribed with the exception of lowering his gabapentin to help with his worsening renal failure and the dose of 500 t.i.d. is concerning for his age. 5. FEN: Placed the patient on diabetic diet with IV fluids. 6. DVT prophylaxis: The patient scores moderate risk. The patient is already on rivaroxaban. 7. Code status: Full code. PATIENT TIME: Greater than 40 minutes was spent doing the history and physical , more than half the time spent in direct patient contact. [id number]/CPS #: [id number] KIMBERLY
[2018-08-01] MEDS: Levothyroxine TAB* 125 MCG TAB PO SCH (06:07)
[2018-08-01 06:48] LABS: ABS Basophils 0 10^3/ul (0-0.2); ABS Eosinophils 0 10^3/ul (0-0.6); ABS Lymphocytes 0.2 10^3/ul (1.0-4.8); ABS Monocytes 0.6 10^3/ul (0-0.8); ABS Neutrophils 16.4 10^3/ul (1.5-7.7); ABS Nucleated RBC 0 10^3/ul; Eosinophil % 0 %; Hematocrit 38 % (36-46); Hemoglobin 12.4 g/dL (14.0-18.0); Lymphocyte % 1.3 %; Mean Corpuscular HGB Conc 33 g/dL (31-36); Mean Corpuscular Hemoglobin 29 pg (27-31); Mean Corpuscular Volume 87 fL (80-94); Mean Platelet Volume 7.2 fL (7.4-10.4); Nucleated Red Blood Cells % 0; Platelet Count 152 10^3/uL (150-450); Red Blood Count 4.34 10^6 /uL (4.18-5.48); Red Cell Distribution Width 14 % (10.5-15); White Blood Count 17.2 10^3/uL (3.5-10.8)
[2018-08-01 07:06] LABS: BUN/Creatinine Ratio 13.2 (8-20); Calcium 8.8 mg/dL (8.6-10.3); EGFR African American 48.6 (>60); EGFR Non-African American 40.2 (>60); Potassium 4.2 mmol/L (3.5-5.0)
[2018-08-01] MEDS ORDERED: Insulin LISPRO* 1 UNITS UNIT SUBCUT SCH (07:30)
[2018-08-01] MEDS ORDERED: Gabapentin CAP(*) 400 MG PO SCH (09:00)
[2018-08-01] MEDS: CMCS:Cyclosporine 0.05% OPHTH (NF) 0.4 ML VIAL BOTH EYES SCH ×2 (09:05→22:01)
[2018-08-01] MEDS: Pentoxifylline CR TAB* 400 MG PO SCH ×2 (09:10→21:58)
[2018-08-01] MEDS: Pantoprazole TAB * 40 MG TAB PO SCH ×2 (09:11→21:58)
[2018-08-01] MEDS: Gabapentin CAP(*) 300 MG PO SCH ×3 (09:11→21:57)
[2018-08-01] MEDS: Amiodarone TAB* 200 MG PO SCH ×2 (09:11→21:58)
[2018-08-01] MEDS: Folic Acid TAB* 1 MG PO SCH (09:12)
[2018-08-01] MEDS: Ferrous Sulfate TAB* 325 MG PO SCH (09:12)
[2018-08-01] MEDS: Morphine TAB Extended Release (*) 30 MG TAB.ER PO SCH ×2 (09:12→21:57)
[2018-08-01] MEDS: Sucralfate TAB* 1 GM PO SCH ×4 (09:12→21:57)
[2018-08-01] MEDS: Insulin LISPRO* 1 UNITS UNIT SUBCUT SCH ×4 (09:28→21:59)
[2018-08-01] MEDS ORDERED: Iodixanol* (CONTRAST) 320 MG/ML 100 ML SDV IV ONE (09:43)
[2018-08-01] MEDS: Acetylcysteine CAP (RENAL)* 600 MG PO SCH ×2 (11:28→21:58)
[2018-08-01] MEDS: Atorvastatin* 80 MG TAB PO SCH (17:29)
[2018-08-01] MEDS: Finasteride TAB* 5 MG PO SCH (17:29)
--- NOTE | 2018-08-01 17:57 | PN ---
Subjective Date of Service: 08/01/18 Interval History: Pt seen and examined. Meds and labs reviewed. CC: Fever ROS: Denied DAVISON/dizziness, F/C, N/V, CP, SOB, increased cough, sputum production , abd pain, diarrhea, constipation, dysuria, myalgias, arthralgias, throat pain , and new skin lesions. The rest of the 14 point ROS are unremarkable. PHYSICAL EXAM: GEN APPEARANCE: Awake, not in acute distress HEENT: NC/AT, PERRLA, moist oral mucosa, (-) throat erythema NECK: Soft, supple, (-) cervical LAD, (-)JVD HEART: S1S2 WNL, RRR, No MRG CHEST: CTA, BL, GAE, No W/R/R ABD: Soft, ND/NT, NABS 4x Q EXT: No C/C/E SKIN: Warm to touch PSYCH: No active psychosis, hallucinations, depression, SI/HI Objective Active Medications: Acetaminophen (Tylenol Tab*) 650 mg PO Q4H PRN PRN Reason: FEVER/PAIN Last Admin: 08/01/18 17:29 Dose: 650 mg Acetylcysteine (Acetylcysteine Cap (Renal)*) 1,200 mg PO BID [facility] Stop: 08/02/18 21:01 Last Admin: 08/01/18 11:28 Dose: 1,200 mg Al Hydrox/Mg Hydrox/Simethicone (Maalox Plus*) 30 ml PO Q6H PRN PRN Reason: INDIGESTION Albuterol/Ipratropium (Duoneb (Albuterol 2.5 Mg/Ipratropium 0.5 Mg)) 1 neb INH QID PRN; Protocol PRN Reason: SHORTNESS OF BREATH Amiodarone HCl (Cordarone Tab*) 200 mg PO BID [facility] Last Admin: 08/01/18 09:11 Dose: 200 mg Atorvastatin Calcium (Lipitor*) 80 mg PO QPM [facility] Last Admin: 08/01/18 17:29 Dose: 80 mg Carboxymethylcellulose/Glycerin (Refresh Optive Gel Eye Gel) 1 applic BOTH EYES DAILY PRN PRN Reason: DRY EYE Cyclobenzaprine HCl (Flexeril Tab*) 10 mg PO QPM PRN PRN Reason: SPASMS Cyclosporine (Restasis 0.05% Oph) 1 drop BOTH EYES BID [facility]; Protocol Last Admin: 08/01/18 09:05 Dose: Not Given Dextrose (D50w Syringe 50 Ml*) 12.5 gm IV PUSH .FOR FS < 60 - SS PRN PRN Reason: FS < 60 Docusate Sodium (Colace Cap*) 100 mg PO BID PRN PRN Reason: CONSTIPATION Ferrous Sulfate (Ferrous Sulfate Tab*) 325 mg PO DAILY [facility] Last Admin: 08/01/18 09:12 Dose: 325 mg Finasteride (Proscar Tab*) 5 mg PO QPM [facility] Last Admin: 08/01/18 17:29 Dose: 5 mg Folic Acid (Folvite Tab*) 1 mg PO QAM [facility] Last Admin: 08/01/18 09:12 Dose: 1 mg Gabapentin (Neurontin Cap(*)) 300 mg PO TID [facility] Gabapentin (Neurontin Cap(*)) 200 mg PO TID [facility] Lactated Ringer's (Lactated Ringers 1000 Ml Bag*) 1,000 mls @ 125 mls/hr IV PER RATE [facility] Last Admin: 08/01/18 17:42 Dose: 125 mls/hr Azithromycin 250 mg/ Sodium (Chloride) 250 mls @ 250 mls/hr IVPB Q24H [facility] Stop: 08/06/18 01:59 Ceftriaxone Sodium 1 gm/ (Sodium Chloride) 50 mls @ 200 mls/hr IVPB Q24H [facility] Insulin Glargine (Lantus(*)) 28 units SUBCUT Q24H [facility] Insulin Human Lispro (Humalog*) 0 units SUBCUT ACHS [facility]; Protocol Last Admin: 08/01/18 17:30 Dose: 3 units Levothyroxine Sodium (Synthroid Tab*) 250 mcg PO DAILY@0600 [facility] Last Admin: 08/01/18 06:07 Dose: 250 mcg Lorazepam (Ativan Tab(*)) 1 mg PO TID PRN PRN Reason: ANXIETY Morphine Sulfate (Ms Contin(*)) 30 mg PO BID [facility] Last Admin: 08/01/18 09:12 Dose: 30 mg Nfm* (Fluocinolone Acetonide [Iluvien] 0.01 %) 0.01 % TOPICAL DAILY PRN PRN Reason: RASH Nystatin (Nystatin Top Powder*) 1 applic TOPICAL BID PRN PRN Reason: RASH Ondansetron HCl (Zofran Inj*) 4 mg IV Q4H PRN PRN Reason: NAUSEA/VOMITING Oxycodone HCl (Roxycodone Tab*) 15 mg PO Q6H PRN PRN Reason: PAIN Last Admin: 08/01/18 11:29 Dose: 15 mg Pantoprazole Sodium (Protonix Tab*) 40 mg PO BID [facility] Last Admin: 08/01/18 09:11 Dose: 40 mg Pentoxifylline (Trental Cr Tab*) 400 mg PO BID [facility] Last Admin: 08/01/18 09:10 Dose: 400 mg Rivaroxaban (Xarelto(*)) 15 mg PO QPM [facility] Last Admin: 08/01/18 17:29 Dose: 15 mg Senna (Senokot Tab*) 1 tab PO BID PRN PRN Reason: CONSTIPATION Sucralfate (Carafate*) 1 gm PO 0700,1100,1600,2100 [facility] Last Admin: 08/01/18 17:29 Dose: 1 gm Vital Signs - 8 hr 08/01/18 08/01/18 08/01/18 11:29 11:35 11:42 Temperature 99.1 F Pulse Rate 67 Respiratory 16 17 18 Rate Blood Pressure 136/62 (mmHg) O2 Sat by Pulse 97 Oximetry 08/01/18 08/01/18 08/01/18 14:09 16:14 16:49 Temperature 100.2 F Pulse Rate 55 Respiratory 16 18 18 Rate Blood Pressure 134/45 (mmHg) O2 Sat by Pulse 92 Oximetry 08/01/18 08/01/18 16:50 17:40 Temperature 99.9 F Pulse Rate Respiratory 18 Rate Blood Pressure (mmHg) O2 Sat by Pulse Oximetry Oxygen Devices in Use Now: Nasal Cannula Result Diagrams: 08/01/18 06:21 08/01/18 06:21 Assess/Plan/Problems-Billing Assessment: - Patient Problems (1) Fever Current Visit: Yes Status: Acute Code(s): R50.9 - FEVER, UNSPECIFIED SNOMED Code(s): 623019712 Comment: -Unclear source given U/A and CXR unremarkable, however, clinical impression on admission was still PNA and was placed on Rocephin and Azithromycin---despite this leukocytosis has increased -Given SOB on presentation, CTA of chest was ordered to better eval lung parenchyma, however, no consolidation was found other than possibly scarring of LLL. In addition, no PE was found -Continue to follow Cx -Continue Abx for now -If W/U continues to be unrevealing, consider ID and/or Heme/Onc consult (2) JEAN (acute kidney injury) Current Visit: Yes Status: Acute Code(s): N17.9 - ACUTE KIDNEY FAILURE, UNSPECIFIED SNOMED Code(s): 47306936 Comment: -Improved -Continue IVF (3) Diabetes 1.5, managed as type 2 Current Visit: No Status: Acute Code(s): E13.9 - OTHER SPECIFIED DIABETES MELLITUS WITHOUT COMPLICATIONS SNOMED Code(s): 765829546 Comment: -Continue Lantus and ISS (4) Atrial fibrillation Current Visit: No Status: Chronic Code(s): I48.91 - UNSPECIFIED ATRIAL FIBRILLATION SNOMED Code(s): 35777035 Comment: -Continue Amiodarone and Rivaroxaban (5) DVT prophylaxis Current Visit: No Status: Acute Code(s): OYQ1953 - SNOMED Code(s): 263419982 Comment: -Continue Rivaroxaban Status and Disposition: -For PT eval
[2018-08-01] MEDS ORDERED: Rivaroxaban TAB(*) 15 MG PO SCH (18:00)
[2018-08-01] MEDS: Gabapentin CAP(*) 100 MG PO SCH (21:56)
[2018-08-01] MEDS: Insulin GLARGINE(*) 1 UNITS UNIT SUBCUT SCH (21:59)
[2018-08-01] MEDS: Carboxymethylcellulose/Glyceri 10 ML OPHTH.GEL lubricant eye gel BOTH EYES PRN (22:00)
[2018-08-01] MEDS: Docusate CAP* 100 MG PO PRN (22:08)
[2018-08-01] MEDS: Senna TAB PO PRN (22:08)
[2018-08-02] MEDS ORDERED: Azithromycin IV(*) 250 MG in NS 0.9% 250 ML* 250 ML IVPB SCH (02:00)
[2018-08-02] MEDS: cefTRIAXone(*) 1 GM in NS 0.9% 50 ML* 50 ML IVPB SCH (02:43)
[2018-08-02] MEDS: Lactated Ringers 1000 ML Bag* 1,000 ML IV SCH ×3 (02:47→20:55)
[2018-08-02] MEDS: Sucralfate TAB* 1 GM PO SCH ×4 (06:21→20:54)
[2018-08-02] MEDS: Levothyroxine TAB* 125 MCG TAB PO SCH (06:21)
[2018-08-02] MEDS: Insulin LISPRO* 1 UNITS UNIT SUBCUT SCH ×4 (07:48→20:56)
[2018-08-02 08:52] LABS: CRP High Sensitivity 144.8 mg/L (<2.00)
[2018-08-02] MEDS: Morphine TAB Extended Release (*) 30 MG TAB.ER PO SCH ×2 (10:23→20:53)
[2018-08-02] MEDS: Ferrous Sulfate TAB* 325 MG PO SCH (10:24)
[2018-08-02] MEDS: Gabapentin CAP(*) 100 MG PO SCH ×3 (10:25→20:52)
[2018-08-02] MEDS: Gabapentin CAP(*) 300 MG PO SCH ×3 (10:26→20:54)
[2018-08-02] MEDS: Amiodarone TAB* 200 MG PO SCH ×2 (10:27→20:53)
[2018-08-02] MEDS: Folic Acid TAB* 1 MG PO SCH (10:27)
[2018-08-02] MEDS: CMCS:Cyclosporine 0.05% OPHTH (NF) 0.4 ML VIAL BOTH EYES SCH ×2 (10:27→21:00)
[2018-08-02] MEDS: Pentoxifylline CR TAB* 400 MG PO SCH ×2 (10:27→20:52)
[2018-08-02] MEDS: Acetylcysteine CAP (RENAL)* 600 MG PO SCH ×2 (10:27→20:52)
[2018-08-02] MEDS: Pantoprazole TAB * 40 MG TAB PO SCH ×2 (10:28→20:53)
[2018-08-02 10:38] LABS: ABS Basophils 0 10^3/ul (0-0.2); ABS Eosinophils 0.1 10^3/ul (0-0.6); ABS Lymphocytes 0.9 10^3/ul (1.0-4.8); ABS Monocytes 0.7 10^3/ul (0-0.8); ABS Neutrophils 9.4 10^3/ul (1.5-7.7); ABS Nucleated RBC 0 10^3/ul; Hematocrit 35 % (36-46); Hemoglobin 11.5 g/dL (14.0-18.0); Lymphocyte % 7.7 %; Mean Corpuscular HGB Conc 33 g/dL (31-36); Mean Corpuscular Hemoglobin 29 pg (27-31); Mean Corpuscular Volume 88 fL (80-94); Mean Platelet Volume 7.4 fL (7.4-10.4); Nucleated Red Blood Cells % 0.1; Platelet Count 144 10^3/uL (150-450); Red Cell Distribution Width 14 % (10.5-15)
[2018-08-02 10:44] LABS: Albumin 3.1 g/dL (3.2-5.2); Albumin/Globulin Ratio 1.3 (1-3); BUN/Creatinine Ratio 14.6 (8-20); Calcium 9.1 mg/dL (8.6-10.3); EGFR African American 57.7 (>60); EGFR Non-African American 47.7 (>60); Globulin 2.4 g/dL (2-4); Magnesium 1.9 mg/dL (1.9-2.7); Phosphorus 3.1 mg/dL (2.5-5.0); Potassium 3.8 mmol/L (3.5-5.0); Total Bilirubin 0.3 mg/dL (0.2-1.0); Total Protein 5.5 g/dL (6.4-8.9)
[2018-08-02 11:53] LABS: Erythrocyte Sed Rate 56 mm/Hr (0-19)
--- NOTE | 2018-08-02 14:40 | PN ---
Subjective Date of Service: 08/02/18 Interval History: Pt seen and examined. Meds and labs reviewed. No fevers o/n. Last bout of fever was yesterday afternoon. CC: N/A ROS: Denied DAVISON/dizziness, F/C, N/V, CP, SOB, increased cough, sputum production , abd pain, diarrhea, constipation, dysuria, myalgias, arthralgias, throat pain , and new skin lesions. The rest of the 14 point ROS are unremarkable. PHYSICAL EXAM: GEN APPEARANCE: Awake, not in acute distress HEENT: NC/AT, PERRLA, moist oral mucosa, (-) throat erythema NECK: Soft, supple, (-) cervical LAD, (-)JVD HEART: S1S2 WNL, RRR, No MRG CHEST: CTA, BL, GAE, No W/R/R ABD: Soft, ND/NT, NABS 4x Q EXT: No C/C/(+)LLE edema, tender and warm to touch; BL foot wound, lateral SKIN: Warm to touch PSYCH: No active psychosis, hallucinations, depression, SI/HI Objective Active Medications: Acetaminophen (Tylenol Tab*) 650 mg PO Q4H PRN PRN Reason: FEVER/PAIN Last Admin: 08/01/18 17:29 Dose: 650 mg Acetylcysteine (Acetylcysteine Cap (Renal)*) 1,200 mg PO BID [facility] Stop: 08/02/18 21:01 Last Admin: 08/02/18 10:27 Dose: 600 mg Al Hydrox/Mg Hydrox/Simethicone (Maalox Plus*) 30 ml PO Q6H PRN PRN Reason: INDIGESTION Albuterol/Ipratropium (Duoneb (Albuterol 2.5 Mg/Ipratropium 0.5 Mg)) 1 neb INH QID PRN; Protocol PRN Reason: SHORTNESS OF BREATH Amiodarone HCl (Cordarone Tab*) 200 mg PO BID [facility] Last Admin: 08/02/18 10:27 Dose: 200 mg Atorvastatin Calcium (Lipitor*) 80 mg PO QPM [facility] Last Admin: 08/01/18 17:29 Dose: 80 mg Carboxymethylcellulose/Glycerin (Refresh Optive Gel Eye Gel) 1 applic BOTH EYES DAILY PRN PRN Reason: DRY EYE Cyclobenzaprine HCl (Flexeril Tab*) 10 mg PO QPM PRN PRN Reason: SPASMS Cyclosporine (Restasis 0.05% Ophth) 1 drop BOTH EYES BID [facility]; Protocol Last Admin: 08/02/18 10:27 Dose: 1 drop Dextrose (D50w Syringe 50 Ml*) 12.5 gm IV PUSH .FOR FS < 60 - SS PRN PRN Reason: FS < 60 Docusate Sodium (Colace Cap*) 100 mg PO BID PRN PRN Reason: CONSTIPATION Last Admin: 08/01/18 22:08 Dose: 100 mg Ferrous Sulfate (Ferrous Sulfate Tab*) 325 mg PO DAILY [facility] Last Admin: 08/02/18 10:24 Dose: 325 mg Finasteride (Proscar Tab*) 5 mg PO QPM [facility] Last Admin: 08/01/18 17:29 Dose: 5 mg Folic Acid (Folvite Tab*) 1 mg PO QAM [facility] Last Admin: 08/02/18 10:27 Dose: 1 mg Gabapentin (Neurontin Cap(*)) 300 mg PO TID [facility] Last Admin: 08/02/18 14:08 Dose: 300 mg Gabapentin (Neurontin Cap(*)) 200 mg PO TID [facility] Last Admin: 08/02/18 14:06 Dose: 200 mg Heparin Sodium (Porcine) (Heparin Vial(*)) 0 units IV .PER PROTOCOL [facility] Lactated Ringer's (Lactated Ringers 1000 Ml Bag*) 1,000 mls @ 125 mls/hr IV PER RATE [facility] Last Admin: 08/02/18 11:33 Dose: 125 mls/hr Ceftriaxone Sodium 1 gm/ (Sodium Chloride) 50 mls @ 200 mls/hr IVPB Q24H [facility] Last Admin: 08/02/18 02:43 Dose: 200 mls/hr Heparin Sodium/Dextrose (Heparin Drip 25,000 Units(*)) 25,000 units in 500 mls @ 0 mls/hr IV PER RATE [facility]; Protocol Insulin Glargine (Lantus(*)) 28 units SUBCUT Q24H [facility] Last Admin: 08/01/18 21:59 Dose: 28 units Insulin Human Lispro (Humalog*) 0 units SUBCUT ACHS [facility]; Protocol Last Admin: 08/02/18 12:43 Dose: 6 units Lactobacillus Rhamnosus (Lactobacillus Acidophilus*) 2 tab PO DAILY [facility] Stop: 08/05/18 14:59 Levothyroxine Sodium (Synthroid Tab*) 250 mcg PO DAILY@0600 [facility] Last Admin: 08/02/18 06:21 Dose: 250 mcg Lorazepam (Ativan Tab(*)) 1 mg PO TID PRN PRN Reason: ANXIETY Morphine Sulfate (Ms Contin(*)) 30 mg PO BID [facility] Last Admin: 08/02/18 10:23 Dose: 30 mg Nfm* (Fluocinolone Acetonide [Iluvien] 0.01 %) 0.01 % TOPICAL DAILY PRN PRN Reason: RASH Nystatin (Nystatin Top Powder*) 1 applic TOPICAL BID PRN PRN Reason: RASH Ondansetron HCl (Zofran Inj*) 4 mg IV Q4H PRN PRN Reason: NAUSEA/VOMITING Oxycodone HCl (Roxycodone Tab*) 15 mg PO Q6H PRN PRN Reason: PAIN Last Admin: 08/01/18 11:29 Dose: 15 mg Pantoprazole Sodium (Protonix Tab*) 40 mg PO BID [facility] Last Admin: 08/02/18 10:28 Dose: 40 mg Pentoxifylline (Trental Cr Tab*) 400 mg PO BID [facility] Last Admin: 08/02/18 10:27 Dose: 400 mg Senna (Senokot Tab*) 1 tab PO BID PRN PRN Reason: CONSTIPATION Last Admin: 08/01/18 22:08 Dose: 1 tab Sucralfate (Carafate*) 1 gm PO 0700,1100,1600,2100 [facility] Last Admin: 08/02/18 11:26 Dose: 1 gm Warfarin Sodium (Coumadin Tab(*)) 7.5 mg PO DAILY@1700 [facility]; Protocol Stop: 08/05/18 08:59 Vital Signs - 8 hr 08/02/18 08/02/18 08/02/18 07:48 08:00 09:47 Temperature 98.3 F 98.3 F Respiratory 20 Rate O2 Sat by Pulse 98 Oximetry 08/02/18 08/02/18 08/02/18 10:23 10:25 10:26 Temperature Respiratory 18 18 18 Rate O2 Sat by Pulse Oximetry 08/02/18 08/02/18 08/02/18 13:57 13:58 14:06 Temperature Respiratory 18 18 16 Rate O2 Sat by Pulse Oximetry 08/02/18 14:08 Temperature Respiratory 16 Rate O2 Sat by Pulse Oximetry Oxygen Devices in Use Now: Nasal Cannula Result Diagrams: 08/02/18 06:55 08/02/18 07:04 Microbiology and Other Data: Microbiology 07/31/18 22:48 Aerobic Blood Culture - Preliminary Blood Venous No Growth Day 1 Anaerobic Blood Culture - Preliminary No Growth Day 1 07/31/18 23:00 Aerobic Blood Culture - Preliminary Blood Venous No Growth Day 1 Anaerobic Blood Culture - Preliminary No Growth Day 1 Assess/Plan/Problems-Billing Assessment: - Patient Problems (1) DVT (deep venous thrombosis) Current Visit: Yes Status: Acute Code(s): I82.409 - ACUTE EMBOLISM AND THOMBOS UNSP DEEP VN UNSP LOWER EXTREMITY SNOMED Code(s): 586763215 Comment: -LLE -Likely source of fever -Given SOB on presentation, CTA of chest was ordered to better eval lung parenchyma, however, no consolidation was found other than possibly scarring of LLL. In addition, no PE was found -Blood Cx (-)x 1 -D/C Abx -D/C Xarelto given pt still hypercoagulable while with it and start Heparin gtt today -Start Coumadin in AM and daily INRs (2) JEAN (acute kidney injury) Current Visit: Yes Status: Acute Code(s): N17.9 - ACUTE KIDNEY FAILURE, UNSPECIFIED SNOMED Code(s): 27121736 Comment: -Resolved now back to baseline -Continue watchful waiting (3) Diabetes 1.5, managed as type 2 Current Visit: No Status: Acute Code(s): E13.9 - OTHER SPECIFIED DIABETES MELLITUS WITHOUT COMPLICATIONS SNOMED Code(s): 298925707 Comment: -Continue Lantus and ISS (4) Atrial fibrillation Current Visit: No Status: Chronic Code(s): I48.91 - UNSPECIFIED ATRIAL FIBRILLATION SNOMED Code(s): 29294895 Comment: -Continue Amiodarone -Please see above discussion regarding change of AC (5) DVT prophylaxis Current Visit: No Status: Acute Code(s): [id number] - SNOMED Code(s): 696226672 Comment: -Now on heparin gtt Status and Disposition: -Awaiting PT reccs prior to D/C -Bilateral wounds on the lateral area appear clean; will consult wound care and touch base
[2018-08-02 15:55] LABS: ABS Basophils 0 10^3/ul (0-0.2); ABS Eosinophils 0.1 10^3/ul (0-0.6); ABS Lymphocytes 0.6 10^3/ul (1.0-4.8); ABS Monocytes 0.5 10^3/ul (0-0.8); ABS Neutrophils 7.4 10^3/ul (1.5-7.7); ABS Nucleated RBC 0 10^3/ul; Hematocrit 34 % (36-46); Hemoglobin 11.5 g/dL (14.0-18.0); Mean Corpuscular HGB Conc 34 g/dL (31-36); Mean Corpuscular Hemoglobin 30 pg (27-31); Mean Corpuscular Volume 87 fL (80-94); Mean Platelet Volume 7.4 fL (7.4-10.4); Nucleated Red Blood Cells % 0; Platelet Count 140 10^3/uL (150-450); Red Cell Distribution Width 14 % (10.5-15); White Blood Count 8.7 10^3/uL (3.5-10.8)
[2018-08-02 16:08] LABS: EGFR African American 60.6 (>60); EGFR Non-African American 50.1 (>60)
[2018-08-02] MEDS: Heparin DRIP 25,000 UNITS(*) 25,000 UNITS/500 ML BAG IV SCH (16:35)
[2018-08-02] MEDS: Lactobacillus Acidophilus* 1 TAB PO SCH (16:38)
[2018-08-02] MEDS: Heparin VIAL(*) 5000 UNITS/ML VIAL (FIVE THOUSAND) IV SCH (16:48)
[2018-08-02] MEDS: Atorvastatin* 80 MG TAB PO SCH (17:52)
[2018-08-02] MEDS: Finasteride TAB* 5 MG PO SCH (17:52)
[2018-08-02] MEDS: Insulin GLARGINE(*) 1 UNITS UNIT SUBCUT SCH (20:56)
[2018-08-03] MEDS: cefTRIAXone(*) 1 GM in NS 0.9% 50 ML* 50 ML IVPB SCH (02:43)
[2018-08-03 05:17] LABS: Activated Partial Thrombo Time 25.6 seconds (26.0-36.3); INR 1.01 (0.82-1.09)
[2018-08-03 05:18] LABS: ABS Basophils 0 10^3/ul (0-0.2); ABS Eosinophils 0.2 10^3/ul (0-0.6); ABS Lymphocytes 0.8 10^3/ul (1.0-4.8); ABS Monocytes 0.4 10^3/ul (0-0.8); ABS Neutrophils 3.6 10^3/ul (1.5-7.7); ABS Nucleated RBC 0 10^3/ul; Eosinophil % 3.8 %; Hematocrit 36 % (36-46); Hemoglobin 11.5 g/dL (14.0-18.0); Lymphocyte % 16.5 %; Mean Corpuscular HGB Conc 32 g/dL (31-36); Mean Corpuscular Hemoglobin 29 pg (27-31); Mean Corpuscular Volume 90 fL (80-94); Mean Platelet Volume 7.5 fL (7.4-10.4); Nucleated Red Blood Cells % 0; Platelet Count 123 10^3/uL (150-450); Red Cell Distribution Width 14 % (10.5-15)
[2018-08-03 05:32] LABS: Albumin 3.1 g/dL (3.2-5.2); CO2 Carbon Dioxide 22 mmol/L (22-32); Calcium 8.8 mg/dL (8.6-10.3); Chloride 105 mmol/L (101-111); Sodium 136 mmol/L (135-145)
[2018-08-03 05:33] LABS: Anion Gap 9 mmol/L (2-11)
[2018-08-03 05:38] LABS: ALT 21 U/L (7-52); Albumin/Globulin Ratio 1.3 (1-3); Alkaline Phosphatase 44 U/L (34-104); BUN/Creatinine Ratio 14.8 (8-20); Blood Urea Nitrogen 19 mg/dL (6-24); EGFR African American 66.1 (>60); EGFR Non-African American 54.6 (>60); Globulin 2.4 g/dL (2-4); Glucose 182 mg/dL (70-100); Phosphorus 2.9 mg/dL (2.5-5.0); Total Protein 5.5 g/dL (6.4-8.9)
[2018-08-03] MEDS: Levothyroxine TAB* 125 MCG TAB PO SCH (06:09)
[2018-08-03] MEDS: Sucralfate TAB* 1 GM PO SCH ×4 (06:09→23:02)
[2018-08-03] MEDS: Lactated Ringers 1000 ML Bag* 1,000 ML IV SCH ×4 (06:12→23:12)
[2018-08-03] MEDS: Heparin VIAL(*) 5000 UNITS/ML VIAL (FIVE THOUSAND) IV SCH (08:01)
[2018-08-03] MEDS: Heparin DRIP 25,000 UNITS(*) 25,000 UNITS/500 ML BAG IV SCH (08:01)
[2018-08-03 08:27] LABS: Potassium Redraw 3.9 mmol/L (3.5-5.0)
[2018-08-03] MEDS: Insulin LISPRO* 1 UNITS UNIT SUBCUT SCH ×4 (09:52→20:42)
[2018-08-03] MEDS: Morphine TAB Extended Release (*) 30 MG TAB.ER PO SCH ×2 (09:54→20:42)
[2018-08-03] MEDS: Lactobacillus Acidophilus* 1 TAB PO SCH (09:55)
[2018-08-03] MEDS: Pantoprazole TAB * 40 MG TAB PO SCH ×2 (09:55→20:41)
[2018-08-03] MEDS: Pentoxifylline CR TAB* 400 MG PO SCH ×2 (09:56→20:41)
[2018-08-03] MEDS: CMCS:Cyclosporine 0.05% OPHTH (NF) 0.4 ML VIAL BOTH EYES SCH ×2 (09:56→20:44)
[2018-08-03] MEDS: Gabapentin CAP(*) 100 MG PO SCH ×3 (09:56→20:40)
[2018-08-03] MEDS: Gabapentin CAP(*) 300 MG PO SCH ×3 (09:57→20:41)
[2018-08-03] MEDS: Amiodarone TAB* 200 MG PO SCH ×2 (09:57→20:41)
[2018-08-03] MEDS: Warfarin TAB(*) 7.5 MG PO SCH ×2 (09:58→17:20)
[2018-08-03] MEDS: Folic Acid TAB* 1 MG PO SCH (09:58)
[2018-08-03] MEDS: Ferrous Sulfate TAB* 325 MG PO SCH (09:58)
[2018-08-03] MEDS ORDERED: [UNRECOGNIZED DRUG - OTHER] PRN (14:00)
[2018-08-03] MEDS: Enoxaparin(*) 150 MG/ML 1 ML SYRINGE SUBCUT SCH (17:20)
[2018-08-03] MEDS: Atorvastatin* 80 MG TAB PO SCH (17:20)
[2018-08-03] MEDS: Finasteride TAB* 5 MG PO SCH (17:20)
--- NOTE | 2018-08-03 19:00 | PN ---
Subjective Date of Service: 08/03/18 Interval History: S/P LLE vascular surgery about 7 months ago. Currently being tx for dvt. Reports mild increase in swelling in LLE. Denies pain in LLE. Denies cp, sob, palpitations, fever, chills Objective Active Medications: Acetaminophen (Tylenol Tab*) 650 mg PO Q4H PRN PRN Reason: FEVER/PAIN Last Admin: 08/01/18 17:29 Dose: 650 mg Al Hydrox/Mg Hydrox/Simethicone (Maalox Plus*) 30 ml PO Q6H PRN PRN Reason: INDIGESTION Albuterol/Ipratropium (Duoneb (Albuterol 2.5 Mg/Ipratropium 0.5 Mg)) 1 neb INH QID PRN; Protocol PRN Reason: SHORTNESS OF BREATH Amiodarone HCl (Cordarone Tab*) 200 mg PO BID [facility] Last Admin: 08/03/18 09:57 Dose: 200 mg Atorvastatin Calcium (Lipitor*) 80 mg PO QPM [facility] Last Admin: 08/03/18 17:20 Dose: 80 mg Carboxymethylcellulose/Glycerin (Refresh Optive Gel Eye Gel) 1 applic BOTH EYES DAILY PRN PRN Reason: DRY EYE Cyclobenzaprine HCl (Flexeril Tab*) 10 mg PO QPM PRN PRN Reason: SPASMS Cyclosporine (Restasis 0.05% O[facility]) 1 drop BOTH EYES BID [facility]; Protocol Last Admin: 08/03/18 09:56 Dose: 1 drop Dextrose (D50w Syringe 50 Ml*) 12.5 gm IV PUSH .FOR FS < 60 - SS PRN PRN Reason: FS < 60 Docusate Sodium (Colace Cap*) 100 mg PO BID PRN PRN Reason: CONSTIPATION Last Admin: 08/01/18 22:08 Dose: 100 mg Enoxaparin Sodium (Lovenox(*)) 115 mg SUBCUT Q12H [facility] Last Admin: 08/03/18 17:20 Dose: 115 mg Ferrous Sulfate (Ferrous Sulfate Tab*) 325 mg PO DAILY [facility] Last Admin: 08/03/18 09:58 Dose: 325 mg Finasteride (Proscar Tab*) 5 mg PO QPM [facility] Last Admin: 08/03/18 17:20 Dose: 5 mg Fluocinolone Acetonide (Iluvien) 0.19 mg .SEE ORDER DAILY PRN PRN Reason: RASH Folic Acid (Folvite Tab*) 1 mg PO QAM [facility] Last Admin: 08/03/18 09:58 Dose: 1 mg Gabapentin (Neurontin Cap(*)) 300 mg PO TID [facility] Last Admin: 08/03/18 14:56 Dose: 300 mg Gabapentin (Neurontin Cap(*)) 200 mg PO TID [facility] Last Admin: 08/03/18 14:58 Dose: 200 mg Lactated Ringer's (Lactated Ringers 1000 Ml Bag*) 1,000 mls @ 75 mls/hr IV PER RATE [facility] Last Admin: 08/03/18 16:17 Dose: 75 mls/hr Insulin Glargine (Lantus(*)) 28 units SUBCUT Q24H [facility] Last Admin: 08/02/18 20:56 Dose: 28 units Insulin Human Lispro (Humalog*) 0 units SUBCUT ACHS [facility]; Protocol Last Admin: 08/03/18 17:19 Dose: 6 units Lactobacillus Rhamnosus (Lactobacillus Acidophilus*) 2 tab PO DAILY [facility] Stop: 08/05/18 14:59 Last Admin: 08/03/18 09:55 Dose: 2 tab Levothyroxine Sodium (Synthroid Tab*) 250 mcg PO DAILY@0600 [facility] Last Admin: 08/03/18 06:09 Dose: 250 mcg Lorazepam (Ativan Tab(*)) 1 mg PO TID PRN PRN Reason: ANXIETY Morphine Sulfate (Ms Contin(*)) 30 mg PO BID [facility] Last Admin: 08/03/18 09:54 Dose: 30 mg Nystatin (Nystatin Top Powder*) 1 applic TOPICAL BID PRN PRN Reason: RASH Last Admin: 08/02/18 20:59 Dose: 1 applic Ondansetron HCl (Zofran Inj*) 4 mg IV Q4H PRN PRN Reason: NAUSEA/VOMITING Oxycodone HCl (Roxycodone Tab*) 15 mg PO Q6H PRN PRN Reason: PAIN Last Admin: 08/01/18 11:29 Dose: 15 mg Pantoprazole Sodium (Protonix Tab*) 40 mg PO BID [facility] Last Admin: 08/03/18 09:55 Dose: 40 mg Pentoxifylline (Trental Cr Tab*) 400 mg PO BID [facility] Last Admin: 08/03/18 09:56 Dose: 400 mg Senna (Senokot Tab*) 1 tab PO BID PRN PRN Reason: CONSTIPATION Last Admin: 08/01/18 22:08 Dose: 1 tab Sucralfate (Carafate*) 1 gm PO 0700,1100,1600,2100 [facility] Last Admin: 08/03/18 16:19 Dose: 1 gm Warfarin Sodium (Coumadin Tab(*)) 7.5 mg PO DAILY@1700 [facility]; Protocol Stop: 08/05/18 08:59 Last Admin: 08/03/18 17:20 Dose: 7.5 mg Vital Signs - 8 hr 08/03/18 08/03/18 08/03/18 11:39 12:15 14:03 Temperature 97.8 F Pulse Rate 63 63 Respiratory 16 16 Rate Blood Pressure 131/81 136/60 (mmHg) O2 Sat by Pulse 94 95 Oximetry 08/03/18 08/03/18 14:56 14:58 Temperature Pulse Rate Respiratory 16 16 Rate Blood Pressure (mmHg) O2 Sat by Pulse Oximetry Oxygen Devices in Use Now: None Appearance: Comfortable Eyes: No Scleral Icterus Ears/Nose/Mouth/Throat: Clear Oropharnyx, Mucous Membranes Moist Neck: NL Appearance and Movements; NL JVP Respiratory: Symmetrical Chest Expansion and Respiratory Effort, Clear to Auscultation Cardiovascular: NL Sounds; No Murmurs; No JVD, RRR, No Edema Abdominal: NL Sounds; No Tenderness; No Distention Lymphatic: No Cervical Adenopathy Extremities: - - No notable difference in bilateral le. Chronic discoloratoin of bilateral le Neurological: Alert and Oriented x 3 Nutrition: Taking PO's Result Diagrams: 08/03/18 04:59 08/03/18 08:05 Additional Lab and Data: Laboratory Results - last 24 hr 08/02/18 08/02/18 08/03/18 20:03 20:40 04:59 WBC 5.0 RBC 4.00 L Hgb 11.5 L Hct 36 MCV 90 MCH 29 MCHC 32 RDW 14 Plt Count 123 L MPV 7.5 Neut % (Auto) 71.0 Lymph % (Auto) 16.5 [place] % (Auto) 8.2 Eos % (Auto) 3.8 Baso % (Auto) 0.5 Absolute Neuts (auto) 3.6 Absolute Lymphs (auto) 0.8 L Absolute Monos (auto) 0.4 Absolute Eos (auto) 0.2 Absolute Basos (auto) 0 Absolute Nucleated RBC 0 Nucleated RBC % 0 INR (Anticoag Therapy) APTT 109.8 H* Sodium Potassium Chloride Carbon Dioxide Anion Gap BUN Creatinine Est GFR ( Amer) Est GFR (Non-Af Amer) BUN/Creatinine Ratio Glucose POC Glucose (mg/dL) 173 H Calcium Phosphorus Magnesium Total Bilirubin AST ALT Alkaline Phosphatase Total Protein Albumin Globulin Albumin/Globulin Ratio 08/03/18 08/03/18 08/03/18 04:59 05:00 08:05 WBC RBC Hgb Hct MCV MCH MCHC RDW Plt Count MPV Neut % (Auto) Lymph % (Auto) [place] % (Auto) Eos % (Auto) Baso % (Auto) Absolute Neuts (auto) Absolute Lymphs (auto) Absolute Monos (auto) Absolute Eos (auto) Absolute Basos (auto) Absolute Nucleated RBC Nucleated RBC % INR (Anticoag Therapy) 1.01 APTT 25.6 L Sodium 136 Potassium TNP 3.9 Chloride 105 Carbon Dioxide 22 Anion Gap 9 BUN 19 Creatinine 1.28 H Est GFR ( Amer) 66.1 Est GFR (Non-Af Amer) 54.6 BUN/Creatinine Ratio 14.8 Glucose 182 H POC Glucose (mg/dL) Calcium 8.8 Phosphorus 2.9 Magnesium 2.0 Total Bilirubin 0.40 AST TNP 14 ALT 21 Alkaline Phosphatase 44 Total Protein 5.5 L Albumin 3.1 L Globulin 2.4 Albumin/Globulin Ratio 1.3 08/03/18 08/03/18 08/03/18 08:11 11:57 14:02 WBC RBC Hgb Hct MCV MCH MCHC RDW Plt Count MPV Neut % (Auto) Lymph % (Auto) [place] % (Auto) Eos % (Auto) Baso % (Auto) Absolute Neuts (auto) Absolute Lymphs (auto) Absolute Monos (auto) Absolute Eos (auto) Absolute Basos (auto) Absolute Nucleated RBC Nucleated RBC % INR (Anticoag Therapy) APTT 109.3 H* Sodium Potassium Chloride Carbon Dioxide Anion Gap BUN Creatinine Est GFR ( Amer) Est GFR (Non-Af Amer) BUN/Creatinine Ratio Glucose POC Glucose (mg/dL) 145 H 249 H Calcium Phosphorus Magnesium Total Bilirubin AST ALT Alkaline Phosphatase Total Protein Albumin Globulin Albumin/Globulin Ratio 08/03/18 16:29 WBC RBC Hgb Hct MCV MCH MCHC RDW Plt Count MPV Neut % (Auto) Lymph % (Auto) [place] % (Auto) Eos % (Auto) Baso % (Auto) Absolute Neuts (auto) Absolute Lymphs (auto) Absolute Monos (auto) Absolute Eos (auto) Absolute Basos (auto) Absolute Nucleated RBC Nucleated RBC % INR (Anticoag Therapy) APTT Sodium Potassium Chloride Carbon Dioxide Anion Gap BUN Creatinine Est GFR ( Amer) Est GFR (Non-Af Amer) BUN/Creatinine Ratio Glucose POC Glucose (mg/dL) 204 H Calcium Phosphorus Magnesium Total Bilirubin AST ALT Alkaline Phosphatase Total Protein Albumin Globulin Albumin/Globulin Ratio Microbiology and Other Data: Microbiology 07/31/18 23:00 Blood Venous Aerobic Blood Culture - Preliminary No Growth Day 2 07/31/18 23:00 Blood Venous Anaerobic Blood Culture - Preliminary No Growth Day 2 07/31/18 22:48 Blood Venous Aerobic Blood Culture - Preliminary No Growth Day 2 07/31/18 22:48 Blood Venous Anaerobic Blood Culture - Preliminary No Growth Day 2 Assess/Plan/Problems-Billing Assessment: 77 yr old male pmh of diabetes, chronic wounds,hypothyroid, afib, cad; presented to ED with fever and chills - Patient Problems (1) DVT (deep venous thrombosis) Comment: - Doppler of LLE revealed left common femoral vein, greater saphenous vein, and small saphenous are incompletely compressible suggestive of nonocclusive thrombus. Findings maybe due to recent surgery? - Due to findings and the fact that patient was on Xarelto, Xarelto was stopped , Heparin Drip initiated, and Coumadin started. It was suspected patient had a possible Xarelto failure. -Likely source of fever -Given SOB on presentation, CTA of chest was ordered to better eval lung parenchyma, however, no consolidation was found other than possibly scarring of LLL. In addition, no PE was found -Blood Cx (-)x 1 -D/C Abx - Requested consult from hematology and discussed case with Dr Enciso who recommended stopping Heparin drip, starting Lovenox 1 mg/kg BID, and continuing Coumadin. Can be discharged home when medically stable with follow up INR with PCP and she will see patient outpatient. - Stopped Heparin drip and initiated 1st dose Lovenox tonight. (2) Chronic wound of extremity Comment: - Patient has small wounds on bilateral feet which he is following with wound/ tongue lining stitcher. No s/s of infection at these sites. Will follow patient's outpatient wound care. (3) JEAN (acute kidney injury) Comment: - Resolved now back to baseline (4) Diabetes 1.5, managed as type 2 Comment: -Continue Lantus and ISS (5) Atrial fibrillation Comment: -Continue Amiodarone -Please see above discussion regarding change of AC (6) Full code status Status and Disposition: Requested records from vascular surg. Discharge when medically stable Attending: Delmi Kemp
[2018-08-03] MEDS: Insulin GLARGINE(*) 1 UNITS UNIT SUBCUT SCH (20:43)
[2018-08-04] MEDS: Lactated Ringers 1000 ML Bag* 1,000 ML IV SCH (04:09)
[2018-08-04] MEDS: Enoxaparin(*) 150 MG/ML 1 ML SYRINGE SUBCUT SCH ×2 (04:16→17:21)
[2018-08-04] MEDS: Sucralfate TAB* 1 GM PO SCH ×4 (05:27→23:16)
[2018-08-04] MEDS: Levothyroxine TAB* 125 MCG TAB PO SCH (05:27)
[2018-08-04 06:35] LABS: INR 1.47 (0.82-1.09)
[2018-08-04] MEDS: Pantoprazole TAB * 40 MG TAB PO SCH ×2 (08:40→21:29)
[2018-08-04] MEDS: Ferrous Sulfate TAB* 325 MG PO SCH (08:40)
[2018-08-04] MEDS: Lactobacillus Acidophilus* 1 TAB PO SCH (08:40)
[2018-08-04] MEDS: Amiodarone TAB* 200 MG PO SCH ×2 (08:40→21:29)
[2018-08-04] MEDS: Folic Acid TAB* 1 MG PO SCH (08:41)
[2018-08-04] MEDS: Gabapentin CAP(*) 100 MG PO SCH ×3 (08:41→21:29)
[2018-08-04] MEDS: Morphine TAB Extended Release (*) 30 MG TAB.ER PO SCH ×2 (08:41→21:28)
[2018-08-04] MEDS: Pentoxifylline CR TAB* 400 MG PO SCH ×2 (08:42→21:30)
[2018-08-04] MEDS: Gabapentin CAP(*) 300 MG PO SCH ×3 (08:42→21:29)
[2018-08-04] MEDS: Insulin LISPRO* 1 UNITS UNIT SUBCUT SCH ×4 (08:43→21:27)
[2018-08-04] MEDS: Carboxymethylcellulose/Glyceri 10 ML OPHTH.GEL lubricant eye gel BOTH EYES PRN (08:43)
[2018-08-04] MEDS: CMCS:Cyclosporine 0.05% OPHTH (NF) 0.4 ML VIAL BOTH EYES SCH ×2 (08:44→21:30)
--- NOTE | 2018-08-04 15:03 | PN ---
Subjective Date of Service: 08/04/18 Interval History: Patient is feeling very weak still. Patient has significantly decreased exercise tolerance from baseline. Patient complains of persistent LLE pain and swelling. Patient denies F/C, N/V, CP, SOB, Palpiations, abdominal pain, diarrhea, dysuria, dizziness on standing, or other pain. Family History: Unchanged from Admission Social History: Unchanged from Admission Past Medical History: Unchanged from Admission Objective Active Medications: Acetaminophen (Tylenol Tab*) 650 mg PO Q4H PRN PRN Reason: FEVER/PAIN Last Admin: 08/01/18 17:29 Dose: 650 mg Al Hydrox/Mg Hydrox/Simethicone (Maalox Plus*) 30 ml PO Q6H PRN PRN Reason: INDIGESTION Albuterol/Ipratropium (Duoneb (Albuterol 2.5 Mg/Ipratropium 0.5 Mg)) 1 neb INH QID PRN; Protocol PRN Reason: SHORTNESS OF BREATH Last Admin: 08/04/18 08:12 Dose: 1 neb Amiodarone HCl (Cordarone Tab*) 200 mg PO BID [facility] Last Admin: 08/04/18 08:40 Dose: 200 mg Atorvastatin Calcium (Lipitor*) 80 mg PO QPM [facility] Last Admin: 08/03/18 17:20 Dose: 80 mg Carboxymethylcellulose/Glycerin (Refresh Optive Gel Eye Gel) 1 applic BOTH EYES DAILY PRN PRN Reason: DRY EYE Last Admin: 08/04/18 08:43 Dose: 1 applic Cyclobenzaprine HCl (Flexeril Tab*) 10 mg PO QPM PRN PRN Reason: SPASMS Cyclosporine (Restasis 0.05% [facility]) 1 drop BOTH EYES BID [facility]; Protocol Last Admin: 08/04/18 08:44 Dose: 1 drop Dextrose (D50w Syringe 50 Ml*) 12.5 gm IV PUSH .FOR FS < 60 - SS PRN PRN Reason: FS < 60 Docusate Sodium (Colace Cap*) 100 mg PO BID PRN PRN Reason: CONSTIPATION Last Admin: 08/01/18 22:08 Dose: 100 mg Enoxaparin Sodium (Lovenox(*)) 115 mg SUBCUT Q12H [facility] Last Admin: 08/04/18 04:16 Dose: 115 mg Ferrous Sulfate (Ferrous Sulfate Tab*) 325 mg PO DAILY [facility] Last Admin: 08/04/18 08:40 Dose: 325 mg Finasteride (Proscar Tab*) 5 mg PO QPM [facility] Last Admin: 08/03/18 17:20 Dose: 5 mg Fluocinolone Acetonide (Iluvien) 0.19 mg .SEE ORDER DAILY PRN PRN Reason: RASH Folic Acid (Folvite Tab*) 1 mg PO QAM [facility] Last Admin: 08/04/18 08:41 Dose: 1 mg Gabapentin (Neurontin Cap(*)) 300 mg PO TID [facility] Last Admin: 08/04/18 12:15 Dose: 300 mg Gabapentin (Neurontin Cap(*)) 200 mg PO TID [facility] Last Admin: 08/04/18 12:15 Dose: 200 mg Heparin Sodium (Porcine) (Heparin Vial(*)) 0 units IV .PER PROTOCOL [facility] Last Admin: 08/03/18 08:01 Dose: 8,650 units Insulin Glargine (Lantus(*)) 28 units SUBCUT Q24H [facility] Last Admin: 08/03/18 20:43 Dose: 28 units Insulin Human Lispro (Humalog*) 0 units SUBCUT [facility]; Protocol Last Admin: 08/04/18 12:16 Dose: 12 units Lactobacillus Rhamnosus (Lactobacillus Acidophilus*) 2 tab PO DAILY [facility] Stop: 08/05/18 14:59 Last Admin: 08/04/18 08:40 Dose: 2 tab Levothyroxine Sodium (Synthroid Tab*) 250 mcg PO DAILY@0600 [facility] Last Admin: 08/04/18 05:27 Dose: 250 mcg Lorazepam (Ativan Tab(*)) 1 mg PO TID PRN PRN Reason: ANXIETY Morphine Sulfate (Ms Contin(*)) 30 mg PO BID [facility] Last Admin: 08/04/18 08:41 Dose: 30 mg Nystatin (Nystatin Top Powder*) 1 applic TOPICAL BID PRN PRN Reason: RASH Last Admin: 08/02/18 20:59 Dose: 1 applic Ondansetron HCl (Zofran Inj*) 4 mg IV Q4H PRN PRN Reason: NAUSEA/VOMITING Oxycodone HCl (Roxycodone Tab*) 15 mg PO Q6H PRN PRN Reason: PAIN Last Admin: 08/01/18 11:29 Dose: 15 mg Pantoprazole Sodium (Protonix Tab*) 40 mg PO BID [facility] Last Admin: 08/04/18 08:40 Dose: 40 mg Pentoxifylline (Trental Cr Tab*) 400 mg PO BID [facility] Last Admin: 08/04/18 08:42 Dose: 400 mg Senna (Senokot Tab*) 1 tab PO BID PRN PRN Reason: CONSTIPATION Last Admin: 08/01/18 22:08 Dose: 1 tab Sucralfate (Carafate*) 1 gm PO 0700,1100,1600,2100 [facility] Last Admin: 08/04/18 12:16 Dose: 1 gm Warfarin Sodium (Coumadin Tab(*)) 7.5 mg PO DAILY@1700 [facility]; Protocol Stop: 08/05/18 08:59 Last Admin: 08/03/18 17:20 Dose: 7.5 mg Vital Signs - 8 hr 08/04/18 08/04/18 08/04/18 07:31 08:12 08:41 Temperature 97.5 F Pulse Rate 54 67 Respiratory 14 18 18 Rate Blood Pressure 155/59 (mmHg) O2 Sat by Pulse 95 96 Oximetry 08/04/18 08/04/18 08/04/18 08:42 11:59 12:15 Temperature Pulse Rate Respiratory 18 18 18 Rate Blood Pressure (mmHg) O2 Sat by Pulse Oximetry Oxygen Devices in Use Now: None Appearance: Patient is a 77yo male who appears stated age and is sitting in the bed in [facility]. Eyes: No Scleral Icterus, PERRLA Ears/Nose/Mouth/Throat: NL Teeth, Lips, Gums, Clear Oropharnyx, Mucous Membranes Moist Neck: NL Appearance and Movements; NL JVP, Trachea Midline Respiratory: Symmetrical Chest Expansion and Respiratory Effort, Clear to Auscultation Cardiovascular: NL Sounds; No Murmurs; No JVD, RRR, - - 1+ edema in LLE. Abdominal: NL Sounds; No Tenderness; No Distention, No Hepatosplenomegaly Lymphatic: No Cervical Adenopathy Extremities: No Clubbing, Cyanosis Skin: No Nodules or Sclerosis, - - Venous stasis changes in B/L LE. Incisions in left leg well healed. Neurological: Alert and Oriented x 3, NL Sensation, NL Muscle Strength and Tone , - - CN II-XII Intact. Diffusely weak. Result Diagrams: 08/03/18 04:59 08/03/18 08:05 Additional Lab and Data: Laboratory Results - last 24 hr 08/02/18 08/02/18 08/03/18 20:03 20:40 04:59 WBC 5.0 RBC 4.00 L Hgb 11.5 L Hct 36 MCV 90 MCH 29 MCHC 32 RDW 14 Plt Count 123 L MPV 7.5 Neut % (Auto) 71.0 Lymph % (Auto) 16.5 [place] % (Auto) 8.2 Eos % (Auto) 3.8 Baso % (Auto) 0.5 Absolute Neuts (auto) 3.6 Absolute Lymphs (auto) 0.8 L Absolute Monos (auto) 0.4 Absolute Eos (auto) 0.2 Absolute Basos (auto) 0 Absolute Nucleated RBC 0 Nucleated RBC % 0 INR (Anticoag Therapy) APTT 109.8 H* Sodium Potassium Chloride Carbon Dioxide Anion Gap BUN Creatinine Est GFR ( Amer) Est GFR (Non-Af Amer) BUN/Creatinine Ratio Glucose POC Glucose (mg/dL) 173 H Calcium Phosphorus Magnesium Total Bilirubin AST ALT Alkaline Phosphatase Total Protein Albumin Globulin Albumin/Globulin Ratio 08/03/18 08/03/18 08/03/18 04:59 05:00 08:05 WBC RBC Hgb Hct MCV MCH MCHC RDW Plt Count MPV Neut % (Auto) Lymph % (Auto) [place] % (Auto) Eos % (Auto) Baso % (Auto) Absolute Neuts (auto) Absolute Lymphs (auto) Absolute Monos (auto) Absolute Eos (auto) Absolute Basos (auto) Absolute Nucleated RBC Nucleated RBC % INR (Anticoag Therapy) 1.01 APTT 25.6 L Sodium 136 Potassium TNP 3.9 Chloride 105 Carbon Dioxide 22 Anion Gap 9 BUN 19 Creatinine 1.28 H Est GFR ( Amer) 66.1 Est GFR (Non-Af Amer) 54.6 BUN/Creatinine Ratio 14.8 Glucose 182 H POC Glucose (mg/dL) Calcium 8.8 Phosphorus 2.9 Magnesium 2.0 Total Bilirubin 0.40 AST TNP 14 ALT 21 Alkaline Phosphatase 44 Total Protein 5.5 L Albumin 3.1 L Globulin 2.4 Albumin/Globulin Ratio 1.3 08/03/18 08/03/18 08/03/18 08:11 11:57 14:02 WBC RBC Hgb Hct MCV MCH MCHC RDW Plt Count MPV Neut % (Auto) Lymph % (Auto) [place] % (Auto) Eos % (Auto) Baso % (Auto) Absolute Neuts (auto) Absolute Lymphs (auto) Absolute Monos (auto) Absolute Eos (auto) Absolute Basos (auto) Absolute Nucleated RBC Nucleated RBC % INR (Anticoag Therapy) APTT 109.3 H* Sodium Potassium Chloride Carbon Dioxide Anion Gap BUN Creatinine Est GFR ( Amer) Est GFR (Non-Af Amer) BUN/Creatinine Ratio Glucose POC Glucose (mg/dL) 145 H 249 H Calcium Phosphorus Magnesium Total Bilirubin AST ALT Alkaline Phosphatase Total Protein Albumin Globulin Albumin/Globulin Ratio 08/03/18 16:29 WBC RBC Hgb Hct MCV MCH MCHC RDW Plt Count MPV Neut % (Auto) Lymph % (Auto) [place] % (Auto) Eos % (Auto) Baso % (Auto) Absolute Neuts (auto) Absolute Lymphs (auto) Absolute Monos (auto) Absolute Eos (auto) Absolute Basos (auto) Absolute Nucleated RBC Nucleated RBC % INR (Anticoag Therapy) APTT Sodium Potassium Chloride Carbon Dioxide Anion Gap BUN Creatinine Est GFR ( Amer) Est GFR (Non-Af Amer) BUN/Creatinine Ratio Glucose POC Glucose (mg/dL) 204 H Calcium Phosphorus Magnesium Total Bilirubin AST ALT Alkaline Phosphatase Total Protein Albumin Globulin Albumin/Globulin Ratio Microbiology and Other Data: Microbiology 07/31/18 23:00 Blood Venous Aerobic Blood Culture - Preliminary No Growth Day 2 07/31/18 23:00 Blood Venous Anaerobic Blood Culture - Preliminary No Growth Day 2 07/31/18 22:48 Blood Venous Aerobic Blood Culture - Preliminary No Growth Day 2 07/31/18 22:48 Blood Venous Anaerobic Blood Culture - Preliminary No Growth Day 2 Assess/Plan/Problems-Billing Assessment: 77 yr old male pmh of diabetes, chronic wounds,hypothyroid, afib, cad; presented to ED with fever and chills and was found to have no identifiable infection but was found to have the possibility of a blood clot in the left leg despite being on Xarelto. - Patient Problems (1) DVT (deep venous thrombosis) Current Visit: Yes Status: Acute Code(s): I82.409 - ACUTE EMBOLISM AND THOMBOS UNSP DEEP VN UNSP LOWER EXTREMITY SNOMED Code(s): 655413284 Comment: - Doppler of LLE revealed left common femoral vein, greater saphenous vein, and small saphenous are incompletely compressible suggestive of nonocclusive thrombus. Findings maybe due to recent surgery? - Due to findings and the fact that patient was on Xarelto, Xarelto was stopped , Heparin Drip initiated, and Coumadin started. It was suspected patient had a possible Xarelto failure. -Likely source of fever -Given SOB on presentation, CTA of chest was ordered to better eval lung parenchyma, however, no consolidation was found other than possibly scarring of LLL. In addition, no PE was found -Blood Cx (-)x1, D/C Abx - Requested consult from hematology and discussed case with Dr Enciso who recommended stopping Heparin drip, starting Lovenox 1 mg/kg BID, and continuing Coumadin. Can be discharged home when medically stable with follow up INR with PCP and she will see patient outpatient. - Continue Lovenox, D/C when warfarin therapeutic. Due to concerns about follow up, will keep patient inpatient until this accomplished to avoid double full anticoagulation with a history of GI bleed. - Patient does not feel confident in his ability to make close PCP follow up because he does not have transportation until early next week. (2) Chronic wound of extremity Current Visit: Yes Status: Acute Code(s): [id number] - SNOMED Code(s): 983578444 Comment: - Patient has small wounds on bilateral feet which he is following with wound/ instructional technologist. No s/s of infection at these sites. Will follow patient's outpatient wound care of dressing changes every 3 days. (3) Fever Current Visit: Yes Status: Acute Code(s): R50.9 - FEVER, UNSPECIFIED SNOMED Code(s): 367665909 Comment: -Unclear source given U/A and CXR unremarkable, however, clinical impression on admission was still PNA. - DVT most likely cause of fever, monitor closely for recurrence and additional imaging and antibiotics as appropriate. (4) COPD (chronic obstructive pulmonary disease) Current Visit: No Status: Acute Code(s): J44.9 - CHRONIC OBSTRUCTIVE PULMONARY DISEASE, UNSPECIFIED SNOMED Code(s): 07653079 Comment: - No acute exacerbation (5) Debility Current Visit: No Status: Acute Code(s): R53.81 - OTHER MALAISE SNOMED Code(s): 07776101 Comment: - Weak and unable to function at home without help, may need rehab at D/C. - Continue PT/OT through weekend. (6) Dehydration Current Visit: No Status: Acute Code(s): E86.0 - DEHYDRATION SNOMED Code(s ): 35967995 Comment: - Likely cause of initial weakness and JEAN, now resolved with fluids. (7) Hypothyroidism Current Visit: No Status: Acute Code(s): E03.9 - HYPOTHYROIDISM, UNSPECIFIED SNOMED Code(s): 08799963 Comment: -Continue Levothyroxine (8) Paroxysmal A-fib Current Visit: No Status: Acute Code(s): I48.0 - PAROXYSMAL ATRIAL FIBRILLATION SNOMED Code(s): 374616179 Comment: -On Amiodarone and Coumadin (9) CAD (coronary artery disease) Current Visit: No Status: Chronic Code(s): I25.10 - ATHSCL HEART DISEASE OF [place] CORONARY ARTERY W/O ANG PCTRS SNOMED Code(s): 78164490 Comment: - Asymptomatic - Continue statin and aspirin. (10) CKD (chronic kidney disease) Current Visit: No Status: Chronic Code(s): N18.9 - CHRONIC KIDNEY DISEASE, UNSPECIFIED SNOMED Code(s): 090967442 Comment: - Resolved JEAN, Now at baseline. (11) Diabetes mellitus Current Visit: No Status: Chronic Code(s): E11.9 - TYPE 2 DIABETES MELLITUS WITHOUT COMPLICATIONS SNOMED Code(s): 05215084 Comment: - SSI and Lantus inpatient. Fluctuating FSBG (12) HLD (hyperlipidemia) Current Visit: No Status: Chronic Code(s): E78.5 - HYPERLIPIDEMIA, UNSPECIFIED SNOMED Code(s): 79957740 Comment: - Continue Lipitor. (13) PVD (peripheral vascular disease) Current Visit: No Status: Chronic Code(s): I73.9 - PERIPHERAL VASCULAR DISEASE, UNSPECIFIED SNOMED Code(s): 747038207 Comment: - Recent vascular surgery, records pending. - Strong pulses. (14) Full code status Current Visit: No Status: Acute Onset Date: 05/21/14 Code(s): Z78.9 - OTHER SPECIFIED HEALTH STATUS SNOMED Code(s): 115886471 (15) DVT prophylaxis Current Visit: No Status: Acute Code(s): VUL1599 - SNOMED Code(s): 181040113 Comment: - Coumadin and Lovenox Status and Disposition: Requested records from vascular surg. Discharge when medically stable
[2018-08-04] MEDS: Atorvastatin* 80 MG TAB PO SCH (17:19)
[2018-08-04] MEDS: Finasteride TAB* 5 MG PO SCH (17:20)
[2018-08-04] MEDS: Warfarin TAB(*) 7.5 MG PO SCH (17:20)
[2018-08-04] MEDS: PTO: Albuterol/Ipratropium RESP(NF) MDI (Combivent Respimat) INH PRN (19:18)
[2018-08-04] MEDS: Insulin GLARGINE(*) 1 UNITS UNIT SUBCUT SCH (21:27)
[2018-08-05] MEDS: PTO: Albuterol/Ipratropium RESP(NF) MDI (Combivent Respimat) INH PRN ×2 (04:05→20:34)
[2018-08-05] MEDS: Enoxaparin(*) 150 MG/ML 1 ML SYRINGE SUBCUT SCH ×2 (05:21→17:09)
[2018-08-05] MEDS: Levothyroxine TAB* 125 MCG TAB PO SCH (05:22)
[2018-08-05] MEDS: Sucralfate TAB* 1 GM PO SCH ×4 (05:22→20:24)
[2018-08-05 07:33] LABS: INR 3.4 (0.82-1.09)
[2018-08-05] MEDS: Insulin LISPRO* 1 UNITS UNIT SUBCUT SCH ×4 (07:42→20:26)
[2018-08-05] MEDS: Lactobacillus Acidophilus* 1 TAB PO SCH (08:02)
[2018-08-05] MEDS: Pantoprazole TAB * 40 MG TAB PO SCH ×2 (08:03→20:25)
[2018-08-05] MEDS: Folic Acid TAB* 1 MG PO SCH (08:03)
[2018-08-05] MEDS: Amiodarone TAB* 200 MG PO SCH ×2 (08:04→20:25)
[2018-08-05] MEDS: Ferrous Sulfate TAB* 325 MG PO SCH (08:04)
[2018-08-05] MEDS: Gabapentin CAP(*) 300 MG PO SCH ×3 (08:05→20:24)
[2018-08-05] MEDS: Gabapentin CAP(*) 100 MG PO SCH ×3 (08:05→20:24)
[2018-08-05] MEDS: Morphine TAB Extended Release (*) 30 MG TAB.ER PO SCH ×2 (08:05→20:25)
[2018-08-05] MEDS: Pentoxifylline CR TAB* 400 MG PO SCH ×2 (08:06→20:27)
[2018-08-05] MEDS: CMCS:Cyclosporine 0.05% OPHTH (NF) 0.4 ML VIAL BOTH EYES SCH ×2 (08:06→20:31)
[2018-08-05 08:26] LABS: BUN/Creatinine Ratio 9.4 (8-20); Calcium 9.1 mg/dL (8.6-10.3); EGFR African American 66.1 (>60); EGFR Non-African American 54.6 (>60); Potassium 3.9 mmol/L (3.5-5.0)
[2018-08-05] MEDS ORDERED: Insulin GLARGINE(*) 1 UNITS UNIT SUBCUT SCH (14:40)
--- NOTE | 2018-08-05 14:48 | PN ---
Subjective Date of Service: 08/05/18 Interval History: Pt feels well, wants to go home tomorrow. C/o left LE edema-worsening of chronic Family History: Unchanged from Admission Social History: Unchanged from Admission Past Medical History: Unchanged from Admission Objective Active Medications: Acetaminophen (Tylenol Tab*) 650 mg PO Q4H PRN PRN Reason: FEVER/PAIN Last Admin: 08/01/18 17:29 Dose: 650 mg Al Hydrox/Mg Hydrox/Simethicone (Maalox Plus*) 30 ml PO Q6H PRN PRN Reason: INDIGESTION Albuterol/Ipratropium (Combivent Respimat(Nf)) 1 puff INH Q6H PRN; Protocol PRN Reason: SHORTNESS OF BREATH Last Admin: 08/05/18 04:05 Dose: 1 puff Amiodarone HCl (Cordarone Tab*) 200 mg PO BID [facility] Last Admin: 08/05/18 08:04 Dose: 200 mg Atorvastatin Calcium (Lipitor*) 80 mg PO QPM [facility] Last Admin: 08/04/18 17:19 Dose: 80 mg Carboxymethylcellulose/Glycerin (Refresh Optive Gel Eye Gel) 1 applic BOTH EYES DAILY PRN PRN Reason: DRY EYE Last Admin: 08/04/18 08:43 Dose: 1 applic Cyclobenzaprine HCl (Flexeril Tab*) 10 mg PO QPM PRN PRN Reason: SPASMS Cyclosporine (Restasis 0.05% Ophth) 1 drop BOTH EYES BID [facility]; Protocol Last Admin: 08/05/18 08:06 Dose: 1 drop Dextrose (D50w Syringe 50 Ml*) 12.5 gm IV PUSH .FOR FS < 60 - SS PRN PRN Reason: FS < 60 Docusate Sodium (Colace Cap*) 100 mg PO BID PRN PRN Reason: CONSTIPATION Last Admin: 08/01/18 22:08 Dose: 100 mg Enoxaparin Sodium (Lovenox(*)) 115 mg SUBCUT Q12H [facility] Last Admin: 08/05/18 05:21 Dose: 115 mg Ferrous Sulfate (Ferrous Sulfate Tab*) 325 mg PO DAILY [facility] Last Admin: 08/05/18 08:04 Dose: 325 mg Finasteride (Proscar Tab*) 5 mg PO QPM [facility] Last Admin: 08/04/18 17:20 Dose: 5 mg Fluocinolone Acetonide (Iluvien) 0.19 mg .SEE ORDER DAILY PRN PRN Reason: RASH Folic Acid (Folvite Tab*) 1 mg PO QAM [facility] Last Admin: 08/05/18 08:03 Dose: 1 mg Gabapentin (Neurontin Cap(*)) 300 mg PO TID [facility] Last Admin: 08/05/18 08:05 Dose: 300 mg Gabapentin (Neurontin Cap(*)) 200 mg PO TID [facility] Last Admin: 08/05/18 08:05 Dose: 200 mg Glipizide (Glucotrol Tab*) 5 mg PO BID [facility] Heparin Sodium (Porcine) (Heparin Vial(*)) 0 units IV .PER PROTOCOL [facility] Last Admin: 08/03/18 08:01 Dose: 8,650 units Insulin Glargine (Lantus(*)) 30 units SUBCUT Q24H [facility] Insulin Human Lispro (Humalog*) 0 units SUBCUT ACHS [facility]; Protocol Last Admin: 08/05/18 12:09 Dose: 15 units Lactobacillus Rhamnosus (Lactobacillus Acidophilus*) 2 tab PO DAILY [facility] Stop: 08/05/18 14:59 Last Admin: 08/05/18 08:02 Dose: 2 tab Levothyroxine Sodium (Synthroid Tab*) 250 mcg PO DAILY@0600 [facility] Last Admin: 08/05/18 05:22 Dose: 250 mcg Lorazepam (Ativan Tab(*)) 1 mg PO TID PRN PRN Reason: ANXIETY Morphine Sulfate (Ms Contin(*)) 30 mg PO BID [facility] Last Admin: 08/05/18 08:05 Dose: 30 mg Nystatin (Nystatin Top Powder*) 1 applic TOPICAL BID PRN PRN Reason: RASH Last Admin: 08/02/18 20:59 Dose: 1 applic Ondansetron HCl (Zofran Inj*) 4 mg IV Q4H PRN PRN Reason: NAUSEA/VOMITING Oxycodone HCl (Roxycodone Tab*) 15 mg PO Q6H PRN PRN Reason: PAIN Last Admin: 08/01/18 11:29 Dose: 15 mg Pantoprazole Sodium (Protonix Tab*) 40 mg PO BID [facility] Last Admin: 08/05/18 08:03 Dose: 40 mg Pentoxifylline (Trental Cr Tab*) 400 mg PO BID [facility] Last Admin: 08/05/18 08:06 Dose: 400 mg Senna (Senokot Tab*) 1 tab PO BID PRN PRN Reason: CONSTIPATION Last Admin: 08/01/18 22:08 Dose: 1 tab Sucralfate (Carafate*) 1 gm PO 0700,1100,1600,2100 [facility] Last Admin: 08/05/18 12:09 Dose: 1 gm Warfarin Sodium (Coumadin Tab(*)) 1 mg PO ONCE@1700 [facility]; Protocol Stop: 08/05/18 17:01 Vital Signs - 8 hr 08/05/18 08/05/18 08/05/18 07:40 07:41 08:00 Temperature 98.1 F Pulse Rate 48 62 Respiratory 16 16 Rate Blood Pressure 153/67 (mmHg) O2 Sat by Pulse 94 94 Oximetry 08/05/18 08/05/18 08/05/18 08:05 11:48 11:53 Temperature 98.0 F Pulse Rate 54 Respiratory 16 18 16 Rate Blood Pressure (mmHg) O2 Sat by Pulse 94 Oximetry Oxygen Devices in Use Now: None Appearance: 77 yo M in nAD, aAOx3 Eyes: No Scleral Icterus, PERRLA Ears/Nose/Mouth/Throat: NL Teeth, Lips, Gums, Mucous Membranes Moist Neck: NL Appearance and Movements; NL JVP, Trachea Midline Respiratory: Symmetrical Chest Expansion and Respiratory Effort, Clear to Auscultation Cardiovascular: NL Sounds; No Murmurs; No JVD Abdominal: NL Sounds; No Tenderness; No Distention, No Hepatosplenomegaly Lymphatic: No Cervical Adenopathy Extremities: No Clubbing, Cyanosis, - - left leg +2 pitting edema Skin: No Nodules or Sclerosis Neurological: Alert and Oriented x 3, NL Muscle Strength and Tone Result Diagrams: 08/03/18 04:59 08/05/18 06:54 Additional Lab and Data: Laboratory Results - last 24 hr 08/02/18 08/02/18 08/03/18 20:03 20:40 04:59 WBC 5.0 RBC 4.00 L Hgb 11.5 L Hct 36 MCV 90 MCH 29 MCHC 32 RDW 14 Plt Count 123 L MPV 7.5 Neut % (Auto) 71.0 Lymph % (Auto) 16.5 Sac % (Auto) 8.2 Eos % (Auto) 3.8 Baso % (Auto) 0.5 Absolute Neuts (auto) 3.6 Absolute Lymphs (auto) 0.8 L Absolute Monos (auto) 0.4 Absolute Eos (auto) 0.2 Absolute Basos (auto) 0 Absolute Nucleated RBC 0 Nucleated RBC % 0 INR (Anticoag Therapy) APTT 109.8 H* Sodium Potassium Chloride Carbon Dioxide Anion Gap BUN Creatinine Est GFR ( Amer) Est GFR (Non-Af Amer) BUN/Creatinine Ratio Glucose POC Glucose (mg/dL) 173 H Calcium Phosphorus Magnesium Total Bilirubin AST ALT Alkaline Phosphatase Total Protein Albumin Globulin Albumin/Globulin Ratio 08/03/18 08/03/18 08/03/18 04:59 05:00 08:05 WBC RBC Hgb Hct MCV MCH MCHC RDW Plt Count MPV Neut % (Auto) Lymph % (Auto) Sac % (Auto) Eos % (Auto) Baso % (Auto) Absolute Neuts (auto) Absolute Lymphs (auto) Absolute Monos (auto) Absolute Eos (auto) Absolute Basos (auto) Absolute Nucleated RBC Nucleated RBC % INR (Anticoag Therapy) 1.01 APTT 25.6 L Sodium 136 Potassium TNP 3.9 Chloride 105 Carbon Dioxide 22 Anion Gap 9 BUN 19 Creatinine 1.28 H Est GFR ( Amer) 66.1 Est GFR (Non-Af Amer) 54.6 BUN/Creatinine Ratio 14.8 Glucose 182 H POC Glucose (mg/dL) Calcium 8.8 Phosphorus 2.9 Magnesium 2.0 Total Bilirubin 0.40 AST TNP 14 ALT 21 Alkaline Phosphatase 44 Total Protein 5.5 L Albumin 3.1 L Globulin 2.4 Albumin/Globulin Ratio 1.3 08/03/18 08/03/18 08/03/18 08:11 11:57 14:02 WBC RBC Hgb Hct MCV MCH MCHC RDW Plt Count MPV Neut % (Auto) Lymph % (Auto) Sac % (Auto) Eos % (Auto) Baso % (Auto) Absolute Neuts (auto) Absolute Lymphs (auto) Absolute Monos (auto) Absolute Eos (auto) Absolute Basos (auto) Absolute Nucleated RBC Nucleated RBC % INR (Anticoag Therapy) APTT 109.3 H* Sodium Potassium Chloride Carbon Dioxide Anion Gap BUN Creatinine Est GFR ( Amer) Est GFR (Non-Af Amer) BUN/Creatinine Ratio Glucose POC Glucose (mg/dL) 145 H 249 H Calcium Phosphorus Magnesium Total Bilirubin AST ALT Alkaline Phosphatase Total Protein Albumin Globulin Albumin/Globulin Ratio 08/03/18 16:29 WBC RBC Hgb Hct MCV MCH MCHC RDW Plt Count MPV Neut % (Auto) Lymph % (Auto) Sac % (Auto) Eos % (Auto) Baso % (Auto) Absolute Neuts (auto) Absolute Lymphs (auto) Absolute Monos (auto) Absolute Eos (auto) Absolute Basos (auto) Absolute Nucleated RBC Nucleated RBC % INR (Anticoag Therapy) APTT Sodium Potassium Chloride Carbon Dioxide Anion Gap BUN Creatinine Est GFR ( Amer) Est GFR (Non-Af Amer) BUN/Creatinine Ratio Glucose POC Glucose (mg/dL) 204 H Calcium Phosphorus Magnesium Total Bilirubin AST ALT Alkaline Phosphatase Total Protein Albumin Globulin Albumin/Globulin Ratio Microbiology and Other Data: Microbiology 07/31/18 23:00 Blood Venous Aerobic Blood Culture - Preliminary No Growth Day 2 07/31/18 23:00 Blood Venous Anaerobic Blood Culture - Preliminary No Growth Day 2 07/31/18 22:48 Blood Venous Aerobic Blood Culture - Preliminary No Growth Day 2 07/31/18 22:48 Blood Venous Anaerobic Blood Culture - Preliminary No Growth Day 2 Assess/Plan/Problems-Billing Assessment: 77 yr old male pmh of diabetes, chronic wounds,hypothyroid, afib, cad; presented to ED with fever and chills and was found to have no identifiable infection but was found to have the possibility of a blood clot in the left leg despite being on Xarelto. - Patient Problems (1) DVT (deep venous thrombosis) Comment: - Doppler of LLE revealed left common femoral vein, greater saphenous vein, and small saphenous are incompletely compressible suggestive of nonocclusive thrombus. Findings maybe due to recent surgery? - Due to findings and the fact that patient was on Xarelto, Xarelto was stopped , Heparin Drip initiated, and Coumadin started.Then pt waas switched to lovenox bridging to Coumadin. Today INR>3, cont Lovenox overlap x 24H. It was suspected patient had a possible Xarelto failure. -Likely source of fever -Given SOB on presentation, CTA of chest was ordered to better eval lung parenchyma, however, no consolidation was found other than possibly scarring of LLL. In addition, no PE was found -Blood Cx neg (2) JEAN (acute kidney injury) Comment: - Resolved now back to baseline (3) Fever Comment: -Unclear source given U/A and CXR unremarkable, however, clinical impression on admission was still PNA. - DVT most likely cause of fever, monitor closely for recurrence and additional imaging and antibiotics as appropriate. (4) COPD (chronic obstructive pulmonary disease) Comment: - No acute exacerbation (5) Debility Comment: - Initially weak, but now improved with PT. Likely home with VNS tomorrow - Continue PT/OT through weekend. (6) Diabetes mellitus Comment: Uncontrolled. Restarting Glipizide, increasing Lantus, Cont ISS (7) DVT prophylaxis Comment: - Coumadin and Lovenox Status and Disposition: inpatient
[2018-08-05] MEDS: oxyCODONE TAB* 5 MG TAB PO PRN ×2 (15:21→23:19)
[2018-08-05] MEDS ORDERED: Warfarin TAB(*) 1 MG PO ONE (17:00)
[2018-08-05] MEDS: Finasteride TAB* 5 MG PO SCH (17:09)
[2018-08-05] MEDS: Atorvastatin* 80 MG TAB PO SCH (17:09)
[2018-08-05] MEDS: glipiZIDE TAB* 5 MG PO SCH (20:25)
[2018-08-06] MEDS: Enoxaparin(*) 150 MG/ML 1 ML SYRINGE SUBCUT SCH (05:49)
[2018-08-06] MEDS: Docusate CAP* 100 MG PO PRN (05:50)
[2018-08-06] MEDS: Levothyroxine TAB* 125 MCG TAB PO SCH (05:50)
[2018-08-06] MEDS: Senna TAB PO PRN (05:51)
[2018-08-06] MEDS: Sucralfate TAB* 1 GM PO SCH (05:51)
[2018-08-06 08:11] LABS: INR 4.07 (0.82-1.09)
[2018-08-06] MEDS: Insulin LISPRO* 1 UNITS UNIT SUBCUT SCH (08:40)
[2018-08-06] MEDS: glipiZIDE TAB* 5 MG PO SCH (08:43)
[2018-08-06] MEDS: Folic Acid TAB* 1 MG PO SCH (08:44)
[2018-08-06] MEDS: Amiodarone TAB* 200 MG PO SCH (08:44)
[2018-08-06] MEDS: Pentoxifylline CR TAB* 400 MG PO SCH (08:44)
[2018-08-06] MEDS: Pantoprazole TAB * 40 MG TAB PO SCH (08:44)
[2018-08-06] MEDS: Ferrous Sulfate TAB* 325 MG PO SCH (08:44)
[2018-08-06] MEDS: Gabapentin CAP(*) 300 MG PO SCH (08:45)
[2018-08-06] MEDS: Morphine TAB Extended Release (*) 30 MG TAB.ER PO SCH (08:45)
[2018-08-06] MEDS: Gabapentin CAP(*) 100 MG PO SCH (08:45)
[2018-08-06] MEDS: CMCS:Cyclosporine 0.05% OPHTH (NF) 0.4 ML VIAL BOTH EYES SCH (08:46)
[2018-08-06 08:48] VITALS: BP 145/71
--- NOTE | 2018-08-06 13:30 | DS ---
CC: Dr. Cha; Dr. Enciso DISCHARGE SUMMARY: DATE OF ADMISSION: 08/01/18 DATE OF DISCHARGE: Discharged to home on 08/06/18 PRIMARY CARE PROVIDER: Dr. Cha. CONDITION ON DISCHARGE: Stable. DISCHARGE DIAGNOSIS: An episode of fever, likely related to partially occluded DVT of the left leg. SECONDARY DIAGNOSES: 1. History of diabetes with diabetes neuropathy. 2. 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 3. History of central tremor. 4. Hypothyroidism. 5. Chronic constipation. 6. Benign prostatic hyperplasia 7. Hyperlipidemia. 8. Gastroesophageal reflux disease. 9. Paroxysmal atrial fibrillation, not on anticoagulation. 10. Chronic obstructive pulmonary disease, on room air. 11. Anxiety. 12. History of coronary artery disease, status post PCI in the past. 13. History of left hip arthroplasty. 14. History of cholecystectomy. 15. Cataract surgery bilaterally. 16. Appendectomy remotely. 17. Bilateral foot surgery in the past. 18. Left fifth toe amputation in the past. MEDICATIONS AT DISCHARGE: Include: 1. Coumadin to be restarted for INR below 2.5. The patient's INR level today is 4.07. 2. The patient's Xarelto was stopped. Remaining medications that are unchanged include: 1. Acetaminophen on a p.r.n. basis. 2. Combivent Respimat 1 puff 4 times a day p.r.n. 3. Amiodarone 200 mg b.i.d. 4. Refresh eye drops 1 drop both eyes daily. 5. Flexeril 10 mg q.p.m. 6. Restasis eye drops 0.05% 1 drop both eyes b.i.d. 7. TriCor 145 mg q.a.m. 8. Proscar 5 mg daily. 9. Fluocinolone topically on a p.r.n. basis. 10. Folic acid 1 mg daily. 11. Gabapentin 500 mg 3 times a day. 12. Glipizide 5 mg b.i.d. 13. Insulin detemir 28 units subcutaneously daily. 14. Levothyroxine 250 mcg daily. 15. Lorazepam 1 mg t.i.d. p.r.n. 16. Hiprex 1 g b.i.d. 17. Mometasone cream on a p.r.n. basis topical. 18. Nystatin powder topical b.i.d. p.r.n. 19. Zofran on a p.r.n. basis. 20. Oxycodone 15 mg every 6 p.r.n. 21. Protonix 40 mg b.i.d. 22. Trental CR 400 mg 3 times a day. 23. Crestor 40 mg daily. 24. Carafate 1 g p.o. q.h.s. with each meals. 25. Testosterone IM 200 mg every 10 days. 26. Colace 200 mg daily. 27. Ferrous sulfate 325 mg daily. 28. Furosemide 20 mg daily. Patient is being discharged with 3 tablets of Coumadin as he stated that he will not be able to get t o his pharmacy before Tuesday. LABORATORY DATA AND STUDIES PERFORMED DURING THE HOSPITAL STAY: Included: The patient's INR on 08/05 was 1.47, on 08/05/18 was 3.4, and on 08/06/18 was 4.07. Last CBC on 08/03/18 showed white blood cell count of 5.0, hemoglobin 11.5, hematocrit 36 and platele ts of 123. On 08/05/18, sodium of 136, potassium is 3.9, chloride 105, carbon dioxide 25, BUN was 12 and creatin ine 1.28. The patient's TSH at admission was 0.43. Highly sensitive C-reactive protein at admission was 74.6, phospholipid IgM was below 9.4. Influenza testing was negative. Venous Doppler study of the left lower extremity, impression: "Left common femoral vein, greater sap henous vein and small saphenous vein are incompletely compressible suggestive of nonocclusive thrombu s. Edema. Mildly enlarged left inguinal lymph node." CT angiogram of the chest obtained on 08/01/18, impression: "No pulmonary arterial filling defect wi th risk of pulmonary embolism. Atherosclerosis." Microbiology test show negative urine culture at admission. Urinalysis was unremarkable apart from g lucose in it. HOSPITALIZATION COURSE: Antwon Bryant is a 77-year-old male who presented with an episode of fever and urinary frequency. He also had generalized weakness and leukocytosis on evaluation at admission . He had acute kidney injury with increased creatinine on admission also. There was a question of p neumonia and the patient initially was placed on antibiotics. CT angiogram of the chest was obtained a day after admission and showed no abnormalities. At this point, his antibiotics was stopped. The patient improved with intravenous fluids. It was baseline chronic kidney disease with creatinine of 1.28 at the time of discharge. Further investigation showed partially occlusive DVT as mentioned abo ve. The patient had been on Xarelto for his proximal DVT at that point. The case was discussed betw marion physician assistant teaching professor, Nereyda Curtis and Dr. Enciso. Xarelto failure has to be evaluated. At this point, it was recommended by the boat pilot for the patient to be bridged on Lovenox to Couma din, which the patient used to take in the past. Dr. Enciso was planning to evaluate the patient in the near future for that. The patient unfortunately felt that he is unable to go home with Lovenox injections. Therefore, he s tayed in the hospital. We are checking his INRs on a daily basis and Lovenox bridging. By the time of discharge, his INR was above 3 for 2 days. His Lovenox is going to be stopped and he in fact is n ot going to get Coumadin until his INR falls below 2.5. The patient is on chronic amiodarone, which may increase his INR levels. It is recommended for the visiting nurse association to follow up with patient. As per my discussion with case consultant at [facility], [place], it should be occurr ing on Tuesday, which is tomorrow on 08/07/18. If the patient's INR continues to be above 2.5 tomorro w, his next INR should be checked every other day. The INR report should be sent to Dr. Cha and Dr. Enciso. The patient is asked to call Dr. Enciso's office and schedule an appointment in [facility] [address] to [address] Dr. Cha for followup in approximately 4 to 7 days. PHYSICAL EXAM AT THE TIME OF DISCHARGE: Blood pressure 145/71, heart rate of 64 and regular, respira tory rate of 20, oxygen saturation 94% on room air, temperature 97.6. General: The patient is a azul y pleasant 77-year-old male who is in no acute distress. Alert, awake and oriented x3. HEENT: Head atraumatic and normocephalic. Eyes: Pupils are equal reactive to light and accommodation. Orophary nx is clear. Mucosa is moist. Neck: Supple. No JVD. No bruits bilaterally. Cardiovascular: Reg ular rate and rhythm. No murmur. Respiratory: Clear to auscultation bilaterally. Abdomen: Soft an d nontender. Bowel sounds are present in all quadrants. Extremities: There is entire left leg carole a and pitting at +1. Pulses are +2 bilaterally. There is no clubbing or cyanosis. On evaluation of the left foot, the patient has a dry scabbed ulceration overlying the left first metatarsal joint in patient status post remote amputation of the left fifth toe. The area is approximately 2 cm in diam eter, scabbed over. No evidence of cellulitis. The skin overlying the entire left foot is dry and f laky. Neuro Evaluation: Speech clear. Cranial nerves II through XII grossly intact. Motor strengt h is 5/5 bilaterally. Please note that this is a short summary of the patient's hospitalization. Please refer to further m edical records for details. TIME SPENT: Approximately 45 minutes was spent on the patient's discharge. [id number]/[facility] #: [id number]
[2018-08-08 14:10] LABS: Factor V Leiden Mutation Negative (Negative); Prothrombin 20210 Mutation Negative (Negative)
== END 2018-08-06 13:20 | disposition home or self-care (01) | DRG 300 ==
LOC: ED 22:21 → MED 08-01 01:46 → OBSVTOIN 08-01 14:00
PROVIDERS: ADMIT Pediatrics; ATTEND Internal Medicine
DX: I82.412 Acute embolism and thrombosis of left femoral vein (principal); N17.9 Acute kidney failure, unspecified; I82.890 Acute embolism and thrombosis of other specified veins; J44.9 Chronic obstructive pulmonary disease, unspecified; E86.1 Hypovolemia; E11.40 Type 2 diabetes mellitus with diabetic neuropathy, unspecified; E11.22 Type 2 diabetes mellitus with diabetic chronic kidney disease; L97.529 Non-pressure chronic ulcer of other part of left foot with unspecified severity; L97.519 Non-pressure chronic ulcer of other part of right foot with unspecified severity; E86.0 Dehydration; R50.9 Fever, unspecified; I48.0 Paroxysmal atrial fibrillation; E03.9 Hypothyroidism, unspecified; E78.5 Hyperlipidemia, unspecified; N18.9 Chronic kidney disease, unspecified; I25.10 Atherosclerotic heart disease of native coronary artery without angina pectoris; N40.0 Benign prostatic hyperplasia without lower urinary tract symptoms; G25.2 Other specified forms of tremor; K21.9 Gastro-esophageal reflux disease without esophagitis; K59.09 Other constipation; F41.9 Anxiety disorder, unspecified; Z96.642 Presence of left artificial hip joint; Z95.5 Presence of coronary angioplasty implant and graft; Z79.01 Long term (current) use of anticoagulants; Z79.84 Long term (current) use of oral hypoglycemic drugs; Z79.890 Hormone replacement therapy; Z79.891 Long term (current) use of opiate analgesic; Z79.899 Other long term (current) drug therapy; Z88.1 Allergy status to other antibiotic agents; Z91.018 Allergy to other foods; Z88.8 Allergy status to other drugs, medicaments and biological substances; Z87.891 Personal history of nicotine dependence
CPT/HCPCS: 36415; 71045; 71275; 80048; 80053; 81003; 81240; 81241; 82565; 83605; 83735; 84100; 84443; 84484; 84520; 85025; 85610; 85652; 85730; 86141; 86147; 87040; 94640; 99284; A9270-GY; G8978-GP-CK; G8979-GP-CI; J0456; J0696; J1644; J1650; Q9967

== ENCOUNTER 2018-08-09 10:21 | Inpatient (IN) | payer MEDICARE ==
--- NOTE | 2018-08-09 10:41 | ED ---
Lower Extremity - HPI Summary HPI Summary: Pt is a 78 y/o M presenting to the ED with a chief complaint of LLE issues. He was here recently with a fever and shakes, but they later found out he had a DVT in his LLE. The pt was on Xarelto, they changed this to Heparin, and then when he was d/miguel he was placed on Coumadin with Lovonox. He stopped the Lovonox approximately 4 days ago. Last night, he took his tab of Coumadin, and about an hour after that, the affected area turned a deeper color of red, the skin was warm, edematous, and tender to the touch. He denies any current fevers or shakes. - History of Current Complaint Chief Complaint: EDExtremityLower Stated Complaint: BLOOD CLOT IN LEFT LEG PER PT Time Seen by Provider: 08/09/18 10:27 Hx Obtained From: Patient Mechanism Of Injury: Unknown Onset/Duration: Still Present Severity Initially: Mild Severity Currently: Moderate Pain Intensity: 4 Pain Scale Used: 0-10 Numeric Timing: Constant, Lasting Hours Location: Is Discrete @ - LLE Associated Signs And Symptoms: Positive: Swelling, Redness. Negative: Fever Aggravating Factor(s): Nothing Alleviating Factor(s): Nothing Able to Bear Weight: Yes - Allergies/Home Medications Allergies/Adverse Reactions: Allergies Allergy/AdvReac Type Severity Reaction Status Date / Time banana Allergy See Comment Verified 08/09/18 10:26 walnut Allergy See Comment Verified 08/09/18 10:26 ciprofloxacin AdvReac GI Upset Verified 08/09/18 10:26 Home Medications: Home Medications Ammonium Lactate 12% [Lac-Hydrin 12 %] 12 % TOPICAL DAILY PRN 08/09/18 [History Confirmed 08/09/18] Eyelid Cleanser Combination 3 [Ocusoft Lid Scrub Plus] 1 each TOPICAL DAILY PRN 08/09/18 [History Confirmed 08/09/18] Gabapentin CAP(*) [Neurontin 100 mg CAP(*)] 100 mg PO TID 08/09/18 [History Confirmed 08/09/18] Hydrocortisone 1% CREAM* [Hytone Cream 1%*] 1 applic TOPICAL BID PRN 08/09/18 [ History Confirmed 08/09/18] Atqzc-6-Msbs Ethyl Esters (NF) [Lovaza (NF)] 1 gm PO BID 08/09/18 [History Confirmed 08/09/18] Oral Rinse (Biotene)(NF) [Biotene Dry Mouth Oral Rinse(NF)] 1 liq PO QPM PRN 04/29 [History Confirmed 08/09/18] Oxymetazoline 0.05% NASAL SPR* [Afrin 0.05% NASAL SPRAY*] 1 spray NASAL Q12H PRN 08/09/18 [History Confirmed 08/09/18] Polyethylene Glycol 3350* [Miralax*] 17 gm PO DAILY PRN 08/09/18 [History Confirmed 08/09/18] Testosterone Cypionate (NF) 200 mg IM Q10D 08/09/18 [History Confirmed 08/09/18] PMH/Surg Hx/FS Hx/Imm Hx Previously Healthy: No Endocrine/Hematology History: Reports: Hx Anticoagulant Therapy, Hx Diabetes - NIDDM, Hx Thyroid Disease Denies: Hx Blood Disorders, Hx Blood Transfusions, Hx Bone Marrow Disease, Hx Sickle Cell Disease Cardiovascular History: Reports: Hx Angina, Hx Angioplasty, Hx Coronary Artery Disease, Hx Hypercholesterolemia, Hx Hypertension, Other Cardiovascular Problems /Disorders - HISTORY OF ATRIAL FIBRILLARION Denies: Hx Congestive Heart Failure, Hx Myocardial Infarction, Hx Pacemaker/ ICD, Hx Valvular Heart Disease Respiratory History: Reports: Hx Chronic Obstructive Pulmonary Disease (COPD), Hx Sleep Apnea Denies: Hx Asthma GI History: Reports: Hx Gall Bladder Disease - removed, Hx Gastroesophageal Reflux Disease, Hx Hiatal Hernia, Hx Ulcer, Other GI Disorders - Barretts esophagus History: Denies: Hx Renal Disease Musculoskeletal History: Reports: Hx Arthritis - ARTHRITIS, Hx Rheumatoid Arthritis, Hx Back Problems, Hx Osteoporosis Sensory History: Reports: Hx Cataracts - RIGHT EYE, Hx Contacts or Glasses, Hx Eye Injury, Hx Vision Problem Denies: Hx Eye Prosthesis, Hx Glaucoma, Hx Legally Blind, Hx Macular Degeneration, Hx Deafness, Hx Hearing Aid, Hx Hearing Problem, Other Sensory Impairments Opthamlomology History: Reports: Hx Cataracts - RIGHT EYE, Hx Contacts or Glasses, Hx Eye Injury, Hx Vision Problem Denies: Hx Eye Prosthesis, Hx Glaucoma, Hx Legally Blind, Hx Macular Degeneration, Other Sensory Impairments Neurological History: Reports: Other Neuro Impairments/Disorders - diabetic neuropathy (feet) Denies: Hx Dementia, Hx Developmental Delay, Hx Headaches, Hx Migraine, Hx Nerve Disease, Hx Seizures, Hx Spinal Cord Injury, Hx Transient Ischemic Attacks (TIA) Psychiatric History: Reports: Hx Anxiety Denies: Hx Panic Disorder - Cancer History Cancer Type, 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 FEET - [place]. NASAL - CLEAR THE PASSAGE. LEFT 5TH TOE AMPUTATION Hx Anesthesia Reactions: No - Immunization History Date of Tetanus Vaccine: [facility] [place] Infectious Disease History: No Infectious Disease History: Reports: Hx Clostridium Difficile - 2016, Hx Hepatitis - CURED Denies: Hx Human Immunodeficiency Virus (HIV), Hx of Known/Suspected MRSA, Hx Shingles, Hx Tuberculosis, Hx Known/Suspected VRE, Hx Known/Suspected VRSA, History Other Infectious Disease, Traveled Outside the in Last 30 Days - Family History Known Family History: Positive: Diabetes, Other - alzheimer's and colon CA - Social History Alcohol Use: None Hx Substance Use: No Substance Use Type: Reports: None Hx Tobacco Use: Yes Smoking Status (MU): Former Smoker Type: Cigarettes Amount Used/How Often: 1.5ppd Length of Time of Smoking/Using Tobacco: 50 years Have You Smoked in the Last Year: No Review of Systems Negative: Fever, Other - shakes Positive: Edema Positive: Rash, Other - erythema, warmth of LLE All Other Systems Reviewed And Are Negative: Yes Physical Exam - Summary Physical Exam Summary: Constitutional: Well-developed, Well-nourished, Alert. (-) Distressed Skin: Warm, Dry HENT: Normocephalic; Atraumatic Eyes: Conjunctiva normal Neck: Musculoskeletal ROM normal neck. (-) JVD, (-) Stridor, (-) Tracheal deviation Cardio: Rhythm regular, rate normal, Heart sounds normal; Intact distal pulses; The pedal pulses are 2+ and symmetric. Radial pulses are 2+ and symmetric. (-) Murmur Pulmonary/Chest wall: Effort normal. (-) Respiratory distress, (-) Wheezes, (-) Rales Abd: Soft, (-) tenderness, (-) Distension, (-) Guarding, (-) Rebound Musculoskeletal: Deep erythema of LLE with 1-2+ pitting edema. L foot has ulcer on heel, and there is severe fungal infection with areas of flaky skin diffusely on foot. Lymph: (-) Cervical adenopathy Neuro: Alert, Oriented x3 Psych: Mood and affect Normal Triage Information Reviewed: Yes Vital Signs On Initial Exam: Initial Vitals Temp Pulse Resp BP Pulse Ox 98.7 F 75 22 167/98 95 08/09/18 10:22 08/09/18 10:22 08/09/18 10:22 08/09/18 10:22 08/09/18 10:22 Vital Signs Reviewed: Yes Diagnostics - Vital Signs Vital Signs Temp Pulse Resp BP Pulse Ox 08/09/18 10:22 98.7 F 75 22 167/98 95 - Laboratory Result Diagrams: 08/09/18 10:48 08/09/18 10:48 Lab Statement: Any lab studies that have been ordered have been reviewed, and results considered in the medical decision making process. - Ultrasound No standard instances Ultrasound Interpretation Completed By: Radiologist Summary of Ultrasound Findings: Venous Doppler Study shows. 1. NONOCCLUSIVE THROMBUS NOTED WITHIN THE LEFT COMMON FEMORAL VEIN AND FEMORAL VEIN AND SMALL SAPHENOUS VEIN. 2. SUBCUTANEOUS EDEMA. ED physician has reviewed this report. Re-Evaluation - Re-Evaluation 1st re-eval Re-Evaluation Time: 13:28 Change: Unchanged Comment: I discussed the results with the pt and his . Lower Extremity Course/Dx - Course Course Of Treatment: Pt is a 78 y/o M presenting to the ED with a chief complaint of LLE issues. He recently had medication changes to his blood thinner d/t recent dx of DVT. Last night, he took his 1/2 tab of Coumadin and noticed deepening erythema with some tenderness and warmth to his LLE, only about 1 hour after taking his medication. Upon physical exam, the pt has deep LLE erythema, 1-2+ pitting edema, as well as a diffuse L foot fungal infection with areas of flaky skin diffusely over the foot. The pt's INR is 2.38, and his APTT is 51.7. His creatinine is 1.30, glucose is 231, and CRP is 13.66. His bloodwork shows Hgb of 12.8, Hct of 38, and MPV of 6.7. Venous Doppler Study shows. 1. NONOCCLUSIVE THROMBUS NOTED WITHIN THE LEFT COMMON FEMORAL VEIN AND FEMORAL VEIN AND SMALL SAPHENOUS VEIN. 2. SUBCUTANEOUS EDEMA. Findings indicative of Warfarin-induced necrosis. - Diagnoses Provider Diagnoses: Skin necrosis, Warfarin anticoagulation Discharge - Sign-Out/Discharge Documenting (check all that apply): Patient Departure - Discharge Plan Condition: Stable Disposition: ADMITTED TO [facility] - Billing Disposition and Condition Condition: STABLE Disposition: Admitted to [facility] - Attestation Statements Document Initiated by Scribe: Yes Documenting Scribe: Alisa Webster Provider For Whom Julita is Documenting (Include Credential): Alberta Sherwood Scribe Attestation: IAlisa, scribed for Alberta Fuentes on 08/09/18 at 2236. Scribe Documentation Reviewed: Yes Provider Attestation: The documentation as recorded by the nateibe, Alisa Webster accurately reflects the service I personally performed and the decisions made by Alberta reinoso Status of Scribe Document: Viewed
[2018-08-09 11:07] LABS: Activated Partial Thrombo Time 51.7 seconds (26.0-36.3); INR 2.38 (0.82-1.09)
[2018-08-09 11:17] LABS: Albumin/Globulin Ratio 1.3 (1-3); BUN/Creatinine Ratio 12.3 (8-20); C Reactive Protein 13.66 mg/L (<8.01); Calcium 9.2 mg/dL (8.6-10.3); EGFR African American 64.8 (>60); EGFR Non-African American 53.5 (>60); Potassium 4.2 mmol/L (3.5-5.0); Total Bilirubin 0.5 mg/dL (0.2-1.0)
[2018-08-09 11:48] LABS: Hematocrit 38 % (42-52); Hemoglobin 12.8 g/dL (14.0-18.0); Mean Corpuscular HGB Conc 33 g/dL (31-36); Mean Corpuscular Hemoglobin 29 pg (27-31); Mean Corpuscular Volume 87 fL (80-94); Mean Platelet Volume 6.7 fL (7.4-10.4); Platelet Count 332 10^3/uL (150-450); Red Blood Count 4.42 10^6 /uL (4.18-5.48); Red Cell Distribution Width 14 % (10.5-15); White Blood Count 5.4 10^3/uL (3.5-10.8)
[2018-08-09 12:10] LABS: ABS Basophils 0.1 10^3/ul (0-0.2); ABS Eosinophils 0.1 10^3/ul (0-0.6); ABS Lymphocytes 0.7 10^3/ul (1.0-4.8); ABS Monocytes 0.4 10^3/ul (0-0.8); ABS Neutrophils 4.1 10^3/ul (1.5-7.7); ABS Nucleated RBC 0 10^3/ul; Eosinophil % 2.7 %; Lymphocyte % 13.5 %; Nucleated Red Blood Cells % 0.2
[2018-08-09] MEDS ORDERED: oxyCODONE TAB* 5 MG TAB PO ONE (15:44)
[2018-08-09] MEDS ORDERED: Enoxaparin(*) 40 MG/0.4 ML SYR SUBCUT SCH (17:00)
[2018-08-09] MEDS ORDERED: Vancomycin(*) 1,000 MG in NS 0.9% 250 ML* 250 ML IVPB ONE (17:06)
[2018-08-09] MEDS ORDERED: Vancomycin(*) 1,500 MG in NS 0.9% 250 ML* 250 ML IVPB ONE (17:19)
[2018-08-09] MEDS ORDERED: Dextrose 50% Syringe 50 ML* 25 GM/50 ML SYRINGE IV PUSH PRN (17:37)
[2018-08-09] MEDS ORDERED: LORazepam TAB(*) 1 MG PO PRN (17:38)
[2018-08-09] MEDS ORDERED: Docusate CAP* 100 MG PO PRN (17:38)
[2018-08-09] MEDS ORDERED: Acetaminophen TAB* 325 MG PO PRN (17:38)
[2018-08-09] MEDS ORDERED: NFT: Albuterol/Ipratropium RESP(NF) MDI (Combivent Respimat) INH PRN (17:38)
[2018-08-09] MEDS ORDERED: Cyclobenzaprine TAB* 10 MG PO SCH (18:00)
[2018-08-09] MEDS ORDERED: oxyCODONE TAB* 5 MG TAB PO PRN (18:17)
[2018-08-09] MEDS ORDERED: Nystatin TOP POWDER* 15 GM BTL TOPICAL PRN (18:17)
[2018-08-09] MEDS ORDERED: Nitroglycerin TAB 0.4 MG* 0.4 MG TAB SL PRN (18:17)
[2018-08-09] MEDS ORDERED: Polyethylene Glycol 3350* 17 GM PACKET PO PRN (18:17)
[2018-08-09] MEDS ORDERED: NYSTATIN TOPICAL PRN (18:17)
[2018-08-09] MEDS ORDERED: TRIAMCINOLONE TOPICAL PRN (18:17)
[2018-08-09] MEDS ORDERED: Cyclobenzaprine TAB* 10 MG PO PRN (18:29)
[2018-08-09] MEDS: Gabapentin CAP(*) 400 MG PO SCH (20:41)
[2018-08-09] MEDS: Gabapentin CAP(*) 100 MG PO SCH (20:42)
[2018-08-09] MEDS: Amiodarone TAB* 200 MG PO SCH (20:42)
[2018-08-09] MEDS: Pentoxifylline CR TAB* 400 MG PO SCH (20:42)
[2018-08-09] MEDS: Sucralfate TAB* 1 GM PO SCH (20:42)
[2018-08-09] MEDS: Finasteride TAB* 5 MG PO SCH (20:43)
[2018-08-09] MEDS: Pantoprazole TAB * 40 MG TAB PO SCH (20:43)
[2018-08-09] MEDS: Morphine TAB Extended Release (*) 30 MG TAB.ER PO SCH (20:43)
[2018-08-09] MEDS: OMEGA ACID ETHYL ESTERS PO SCH (20:44)
[2018-08-09] MEDS: Methenamine Hippurate TAB* 1 GM TAB PO SCH (20:44)
[2018-08-09] MEDS: Insulin LISPRO* 1 UNITS UNIT SUBCUT SCH (20:45)
[2018-08-09] MEDS: CMCS: Cyclosporine 0.05% OPHTH (NF) 0.4 ML VIAL BOTH EYES SCH (20:46)
--- NOTE | 2018-08-09 21:13 | HP ---
HISTORY AND PHYSICAL: DATE OF ADMISSION: 08/09/18 PRIMARY CARE PROVIDER: Dr. Cha. ATTENDING PHYSICIAN: Dr. Lorene Winters * (dictated by RACQUEL Spear) CHIEF COMPLAINT: Left lower extremity erythema and edema. HISTORY OF PRESENT ILLNESS: Antwon Bryant is a 78-year-old white male with past medical history significant for paroxysmal atrial fibrillation, on anticoagulation; history of diabetes mellitus, type 2 with neuropathy; chronic lower extremity wounds; coronary artery disease, status post PCI; peripheral arterial disease, status post femoral bypass; and recent diagnosis of DVT, who presents to the emergency department with left lower extremity erythema and edema that started yesterday evening per direction of his visiting nurse. Of note, the patient was recently discharged from [facility] [place] on 08/06/18. During his hospital stay from 07/31/18 to 08/06/18, he was diagnosed with left DVT. He was already taking Xarelto at that time and therefore this was considered failure of the Xarelto and he was started on Coumadin. He was bridged with Lovenox. He felt that he would not be able to go home on Lovenox and therefore he was continued in the hospital until he reached a therapeutic INR. On day of discharge on 08/06/18, he had an INR over 3 and was advised to wait until his INR fell below 2.5 and then take oral Coumadin. He has been followed by visiting nursing services and his INR yesterday was found to be 2.3, so he took a half a tab of his Coumadin, which was a total of 2.5 mg. Later in the evening , he noticed that his left leg felt swollen with ambulation and he looked at his left lower extremity and noticed erythema. He states that the edema and erythema have not worsened since yesterday evening or spread. He does not feel that the area of swelling is particularly painful. He does note some left- sided groin pain that he does normally have intermittently when moving his leg, but it did start today to occur at rest. At the time of evaluation, it was feeling improved, but was elicited with movement of his right leg. The patient denies fever or chills, purulent drainage from his chronic lower extremity wounds, chest pain, shortness of breath, tachycardia and palpitations, headache and visual changes. PAST MEDICAL HISTORY: 1. Diabetes mellitus complicated by neuropathy. 2. Chronic wounds to lower extremities. 3. Central tremor. 4. Hypothyroidism. 5. Chronic constipation. 6. BPH. 7. Hyperlipidemia. 8. GERD. 9. Paroxysmal atrial fibrillation, on anticoagulation. 10. COPD, on room air at home. 11. Anxiety. 12. Coronary artery disease, status post PCI 13. Peripheral arterial disease, status post femoral bypass. 14. Chronic back pain PAST SURGICAL HISTORY: 1. Left-sided femoral bypass surgery in 2018. 2. Left hip arthroplasty. 3. Cholecystectomy. 4. Cataracts bilaterally. 5. Appendectomy. 6. Left 5th toe amputation. 7. Bilateral foot surgeries. HOME MEDICATIONS: 1. Coumadin 5 mg daily (started taking yesterday at 2.5 mg). 2. Lorazepam 1 mg t.i.d. p.r.n. anxiety. 3. Combivent q.4 hours as needed, shortness of breath or wheezing. 4. Folic acid 1 mg daily. 5. Crestor 40 mg daily. 6. Ferrous sulfate 325 mg daily. 7. Lovaza 1 g b.i.d. 8. Glipizide 5 mg p.o. b.i.d. 9. Nitroglycerin sublingual 0.4 mg p.r.n. chest pain. 10. Levemir 28 units q.h.s. 11. Amiodarone 200 mg p.o. b.i.d. 12. Flexeril 10 mg in the evening as needed for pain. 13. Pantoprazole 40 mg p.o. b.i.d. 14. Oxycodone 15 mg q.6 hours as needed for pain. 15. Fenofibrate 145 mg daily. 16. Morphine sulfate 30 mg p.o. b.i.d. 17. Finasteride 10 mg p.o. daily. 18. Hiprex 1 g p.o. b.i.d. 19. Lasix 20 mg p.o. q.a.m. 20. Colace 200 mg p.o. q.h.s. p.r.n. constipation. 21. Synthroid 250 mcg daily. 22. Testosterone. 23. Nystatin topically as needed. 24. Gabapentin 500 mg p.o. t.i.d. 25. Restasis 1 drop to both eyes b.i.d. 26. Fluocinolone 0.01% as needed. 25. Carafate 1 g a.c. and q.h.s. 26. Pentoxifylline 400 mg p.o. t.i.d. 27. Zofran 4 mg p.o. p.r.n. nausea, vomiting. ALLERGIES: CIPROFLOXACIN (note this is not a true allergy as he reports GI upset), BANANAS, and WALNUTS. FAMILY HISTORY: No family history of VTE. Father in his 60s of Alzheimer's. Mother at age 90 of unknown cause to the patient. SOCIAL HISTORY: The patient quit smoking approximately 10 years ago. He was smoking about a pack and a half a day for 50 years prior to that. He denies alcohol or illicit drug use. 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 His , Mandi Bryant is his healthcare proxy and her phone number is [phone]. He has one daughter. REVIEW OF SYSTEMS: An 11-point review of systems was completed and all pertinent positives and negatives are above in HPI. All other systems are negative. PHYSICAL EXAMINATION GENERAL: Obese, white elderly male, who appears stated age. He is lying upright in hospital stretcher, appearing in no acute distress. HEENT: Head normocephalic, atraumatic. Eyes: Sclerae anicteric. PERRL. EOMI. ENT: Mucous membranes moist. NECK: Supple without JVD. LUNGS: Lungs are clear to auscultation. Chest expansion is symmetrical with respirations. CARDIO: Regular rate and rhythm without murmurs, rubs or gallops. ABDOMEN: Soft, nontender, nondistended. EXTREMITIES: Left lower extremity erythema throughout from the ankle to approximately mid calf, which is warm to touch. +2 pitting edema throughout the region of erythema, otherwise there is +1 pitting edema to the left lower extremity from the region of erythema up to the knee. The patient has chronic wound on lateral aspect of left foot and right lateral malleolus. These wounds are nonpurulent. Otherwise, no clubbing or cyanosis. NEURO: The patient is alert and oriented x3. Range of motion within normal limits for all extremities and strength is 5/5 in all extremities. SKIN: No additional regions of erythema noted throughout. There is ecchymosis to bilateral upper extremities approximately 3 cm distal from antecubital fossa , which is consistent with previous hospitalization blood draws while anticoagulated. No evidence of necrosis. DIAGNOSTIC STUDIES/LAB DATA: White blood cell count 5.4, hemoglobin 12.8, hematocrit 38, and platelet count 332. Sodium 138, potassium 4.2, chloride 103, carbon dioxide 26, anion gap 9, BUN 16 , creatinine 1.30, lactic acid 1.1, CRP 13.66. Glucose 231. INR 2.38. Diagnostic studies: On 08/09/18, venous Doppler study of left lower extremity, impression: 1. Nonocclusive thrombus noted within the left common femoral vein and femoral vein and small saphenous vein. 2. Subcutaneous edema. ASSESSMENT AND PLAN: Antwon Bryant is a 78-year-old white male with past medical history significant for diabetes mellitus, type 2 with neuropathy; chronic wounds bilateral lower extremities; recent deep vein thrombosis; paroxysmal atrial fibrillation, on Coumadin; and coronary artery disease, status post PCI; and peripheral artery disease, status post femoral bypass, who presented to the emergency department with left lower extremity edema and erythema. The patient will be admitted on observation for: 1. Left lower extremity edema. This is likely due to cellulitis. The symptomatology is most consistent with that, although the patient has been recently started on Coumadin and you must consider the possibility of warfarin necrosis, however, the location is not most likely for this condition and the patient notes that he has taken Coumadin in the past for at least 5 years without complications. Given the sudden onset and that the patient has been recent hospitalized, he is at risk for MRSA, so IV vancomycin has been started. Ifhe experiences quick improvement, then oral antibiotics will be utilized. Given the very slim possibility of warfarin induced necrosis, I will continue to hold his warfarin and 40 mg lovenox will be used in the interim as INR is therapeutic at this time. If there is rapid progression of this erythema to necrosis, then Hematology will be consulted and treatment with vitamin K will be necessary. Protein C antigen and antibody and protein S antigen and antibody have been ordered, but these tests are sent out. Lactic acid has been ordered and it is less than 2. ESR has been ordered. Blood cultures have also been ordered. The patient does not have signs of sepsis and is without leukocytosis. Nursing to evaluate left lower extremity every 4 hours to look out for rapid progression of possible necrosis, although again this is low on the differential. 2. Deep vein thrombosis. As previously mentioned, the patient developed the deep vein thrombosis despite being treated for atrial fibrillation on Xarelto and this is why he was switched to Coumadin. We are holding in the setting of possible warfarin necrosis, though this is unlikely. He has taken warfarin without complications in the past and this can likely be restarted when there is evidence of no progression to necrosis. INR is therapeutic at this time and will continue to be monitored. 3. Diabetes mellitus, type 2. The patient takes 28 of the Levemir at home and we will give 20 units of glargine plus sliding scale lispro and hold his home glipizide. Carb consistent diet ordered. 4. Hypothyroidism. Continue home Synthroid at 250 mcg. 5. Coronary artery disease. Continue home Crestor, fibrate and Lasix. It does not appear the patient is on beta-artur or ALE. 6. Peripheral artery disease. Continue home pentoxifylline. 7. Paroxysmal atrial fibrillation. The patient is asymptomatic and not tachycardiac. Rate is regular at time of evaluation. Continue home amiodarone. Holding Coumadin as previously mentioned. 8. Chronic pain. Continue home gabapentin, oxycodone, Flexeril and morphine. Pain to his left hip is chronic as well, but will continue to monitor. 9. Anxiety. Continue home Ativan. 10. Chronic obstructive pulmonary disease. The patient takes Combivent at home. We will continue formulary equivalent of Combivent. 11. Chronic kidney disease. The patient is admitted with creatinine of 1.3, which appears to be right around his baseline. As previously mentioned, the patient is not on ALE and there may be a benefit to consider this at discharge. 12. Chronic constipation. Continue home p.r.n. Colace and MiraLAX. Likely related to chronic opiate use. 13. FEN. Heart healthy and carb consistent diet ordered. Electrolytes are within normal limits. 14. The patient is full code. 15. DVT prophylaxis. Lovenox 40 mg daily. TIME SPENT: Approximately 60 minutes was spent on this admission, approximately half that time was spent at bedside. This case has been interviewed by my attending, Dr. Lorene Winters, and she agrees this assessment and plan of care. ZAIRA O'[place], [place] [id number]/[facility] #: [id number] KIMBERLY
[2018-08-10] MEDS: Levothyroxine TAB* 125 MCG TAB PO SCH (05:33)
[2018-08-10] MEDS: Vancomycin(*) 1,500 MG in NS 0.9% 250 ML* 250 ML IVPB SCH ×2 (05:33→17:15)
[2018-08-10 07:12] LABS: INR 2.39 (0.82-1.09)
[2018-08-10 07:18] LABS: BUN/Creatinine Ratio 12.4 (8-20); Calcium 8.8 mg/dL (8.6-10.3); EGFR African American 65.3 (>60); Potassium 4.1 mmol/L (3.5-5.0)
[2018-08-10] MEDS ORDERED: Triamcinolone 0.025% OINT * 15 GM TUBE TOPICAL PRN (07:19)
[2018-08-10] MEDS ORDERED: Nystatin CREAM* 15 GM TUBE TOPICAL PRN (08:00)
[2018-08-10 08:07] LABS: Hematocrit 35 % (42-52); Hemoglobin 11.8 g/dL (14.0-18.0); Mean Corpuscular HGB Conc 34 g/dL (31-36); Mean Corpuscular Hemoglobin 29 pg (27-31); Mean Corpuscular Volume 87 fL (80-94); Mean Platelet Volume 6.6 fL (7.4-10.4); Platelet Count 304 10^3/uL (150-450); Red Blood Count 4.06 10^6 /uL (4.18-5.48); Red Cell Distribution Width 14 % (10.5-15); White Blood Count 4.7 10^3/uL (3.5-10.8)
[2018-08-10 09:08] LABS: ABS Basophils 0 10^3/ul (0-0.2); ABS Eosinophils 0.1 10^3/ul (0-0.6); ABS Lymphocytes 0.9 10^3/ul (1.0-4.8); ABS Monocytes 0.4 10^3/ul (0-0.8); ABS Neutrophils 3.1 10^3/ul (1.5-7.7); ABS Nucleated RBC 0 10^3/ul; Eosinophil % 3.1 %; Lymphocyte % 19.8 %; Nucleated Red Blood Cells % 0.1
[2018-08-10] MEDS: Ferrous Sulfate TAB* 325 MG PO SCH (09:37)
[2018-08-10] MEDS: Folic Acid TAB* 1 MG PO SCH (09:37)
[2018-08-10] MEDS: Gabapentin CAP(*) 400 MG PO SCH ×3 (09:37→21:33)
[2018-08-10] MEDS: Morphine TAB Extended Release (*) 30 MG TAB.ER PO SCH ×2 (09:37→21:33)
[2018-08-10] MEDS: Insulin LISPRO* 1 UNITS UNIT SUBCUT SCH ×4 (09:38→21:47)
[2018-08-10] MEDS: Pantoprazole TAB * 40 MG TAB PO SCH ×2 (09:38→21:34)
[2018-08-10] MEDS: Furosemide TAB* 20 MG PO SCH (09:38)
[2018-08-10] MEDS: Gabapentin CAP(*) 100 MG PO SCH ×3 (09:38→21:34)
[2018-08-10] MEDS: Insulin GLARGINE(*) 1 UNITS UNIT SUBCUT SCH (09:38)
[2018-08-10] MEDS: Amiodarone TAB* 200 MG PO SCH ×2 (09:38→21:34)
[2018-08-10] MEDS: Methenamine Hippurate TAB* 1 GM TAB PO SCH ×2 (09:39→21:35)
[2018-08-10] MEDS: OMEGA ACID ETHYL ESTERS PO SCH ×2 (09:39→21:34)
[2018-08-10] MEDS: CMCS: Cyclosporine 0.05% OPHTH (NF) 0.4 ML VIAL BOTH EYES SCH ×2 (09:40→21:36)
[2018-08-10] MEDS: Pentoxifylline CR TAB* 400 MG PO SCH ×3 (09:40→21:33)
[2018-08-10] MEDS: CMCS: Fenofibrate(NF) 145 MG TAB PO SCH (09:40)
[2018-08-10] MEDS: Sucralfate TAB* 1 GM PO SCH ×4 (09:53→21:47)
--- NOTE | 2018-08-10 11:06 | PN ---
Subjective Date of Service: 08/10/18 Interval History: Patient is feeling well. He agrees that it does not appear that the erythema and edema to his left LE has neither improved nor worsened. He denies fever/ chills, chest pain, dyspnea, tachycardia, palpitations, leg pain. Objective Active Medications: Acetaminophen (Tylenol Tab*) 325 mg PO Q4H PRN PRN Reason: FEVER/PAIN Albuterol/Ipratropium (Combivent Respimat(Nf)) 1 puff INH QID PRN; Protocol PRN Reason: SHORTNESS OF BREATH Amiodarone HCl (Cordarone Tab*) 200 mg PO BID [facility] Last Admin: 08/10/18 09:38 Dose: 200 mg Atorvastatin Calcium (Lipitor*) 80 mg PO QPM [facility] Cyclobenzaprine HCl (Flexeril Tab*) 10 mg PO QPM PRN PRN Reason: PAIN - MODERATE Cyclosporine (Restasis 0.05% Ophth) 1 drop BOTH EYES BID [facility]; Protocol Last Admin: 08/10/18 09:40 Dose: 1 drop Dextrose (D50w Syringe 50 Ml*) 12.5 gm IV PUSH .FOR FS < 60 - SS PRN PRN Reason: FS < 60 Docusate Sodium (Colace Cap*) 200 mg PO DAILY PRN PRN Reason: CONSTIPATION Enoxaparin Sodium (Lovenox(*)) 40 mg SUBCUT Q24H [facility] Last Admin: 08/09/18 17:15 Dose: 40 mg Fenofibrate (Tricor(Nf)) 145 mg PO QAM [facility]; Protocol Last Admin: 08/10/18 09:40 Dose: 145 mg Ferrous Sulfate (Ferrous Sulfate Tab*) 325 mg PO DAILY [facility] Last Admin: 08/10/18 09:37 Dose: 325 mg Finasteride (Proscar Tab*) 5 mg PO QPM [facility] Last Admin: 08/09/18 20:43 Dose: 5 mg Folic Acid (Folvite Tab*) 1 mg PO QAM [facility] Last Admin: 08/10/18 09:37 Dose: 1 mg Furosemide (Lasix Tab*) 20 mg PO DAILY [facility] Last Admin: 08/10/18 09:38 Dose: 20 mg Gabapentin (Neurontin Cap(*)) 100 mg PO TID [facility] Last Admin: 08/10/18 09:38 Dose: 100 mg Gabapentin (Neurontin Cap(*)) 400 mg PO TID [facility] Last Admin: 08/10/18 09:37 Dose: 400 mg Vancomycin HCl 1,500 mg/ (Sodium Chloride) 250 mls @ 166.667 mls/hr IVPB Q12H [facility]; Protocol Last Admin: 08/10/18 05:33 Dose: 166.667 mls/hr Insulin Glargine (Lantus(*)) 20 units SUBCUT Q24H [facility] Last Admin: 08/10/18 09:38 Dose: 20 unit Insulin Human Lispro (Humalog*) 0 units SUBCUT ACHS [facility]; Protocol Last Admin: 08/10/18 09:38 Dose: 2 units Levothyroxine Sodium (Synthroid Tab*) 250 mcg PO DAILY@0600 [facility] Last Admin: 08/10/18 05:33 Dose: 250 mcg Lorazepam (Ativan Tab(*)) 1 mg PO TID PRN PRN Reason: ANXIETY Methenamine Hippurate (Hiprex Tab*) 1 gm PO BID [facility] Last Admin: 08/10/18 09:39 Dose: 1 gm Morphine Sulfate (Ms Contin(*)) 30 mg PO BID [facility] Last Admin: 08/10/18 09:37 Dose: 30 mg Nitroglycerin (Nitroglycerin Tab 0.4 Mg*) 0.4 mg SL Q5M PRN PRN Reason: PAIN - CHEST Nystatin (Nystatin Top Powder*) 1 applic TOPICAL BID PRN PRN Reason: RASH Nystatin (Nystatin Cream*) 1 applic TOPICAL BID PRN PRN Reason: RASH [id number] Ethyl Esters (Lovaza (Nf)) 1 gm PO BID [facility]; Protocol Last Admin: 08/10/18 09:39 Dose: 1 gm Oxycodone HCl (Roxycodone Tab*) 15 mg PO Q6H PRN PRN Reason: PAIN Pantoprazole Sodium (Protonix Tab*) 40 mg PO BID [facility] Last Admin: 08/10/18 09:38 Dose: 40 mg Pentoxifylline (Trental Cr Tab*) 400 mg PO TID [facility] Last Admin: 08/10/18 09:40 Dose: 400 mg Pharmacy Profile Note (Vancomycin Trough Check) 1 note FOLLOW UP ONCE ONE Stop: 08/11/18 05:31 Polyethylene Glycol/Electrolytes (Miralax*) 17 gm PO DAILY PRN PRN Reason: CONSTIPATION Sucralfate (Carafate*) 1 gm PO ACHS [facility] Last Admin: 08/10/18 09:53 Dose: 1 gm Triamcinolone Acetonide (Triamcinolone 0.025% Oint *) 1 applic TOPICAL BID PRN PRN Reason: RASH Vital Signs - 8 hr 08/10/18 08/10/18 08/10/18 03:46 07:15 09:37 Temperature 98.0 F 97.1 F Pulse Rate 53 56 Respiratory 20 18 18 Rate Blood Pressure 135/65 115/58 (mmHg) O2 Sat by Pulse 93 93 Oximetry 08/10/18 09:38 Temperature Pulse Rate Respiratory 18 Rate Blood Pressure (mmHg) O2 Sat by Pulse Oximetry Oxygen Devices in Use Now: None Appearance: Elderly, white, obese male laying upright in hospital bed, appearing comfortable and in NAD Eyes: No Scleral Icterus, PERRLA Ears/Nose/Mouth/Throat: Mucous Membranes Moist Neck: NL Appearance and Movements; NL JVP Respiratory: Symmetrical Chest Expansion and Respiratory Effort, Clear to Auscultation Cardiovascular: NL Sounds; No Murmurs; No JVD, RRR Abdominal: - - Abdomen soft, nontender, nondistended Extremities: No Clubbing, Cyanosis, - - Region of erythema to left LE unchanged from admission yesterday, still dark red and reaches to approx mid tibia; +2 pitting edema within region of erythema, otherwise no edema; erythematous region is warm and without purulence or tenderness; chronic wounds to right lateral malleolus and left foot are stable and without purulence Skin: - - Skin is warm and dry throughout Neurological: Alert and Oriented x 3, NL Muscle Strength and Tone Result Diagrams: 08/10/18 06:50 08/10/18 06:50 Microbiology and Other Data: Microbiology 08/09/18 10:48 Aerobic Blood Culture - Preliminary Blood Venous No Growth Day 1 Anaerobic Blood Culture - Preliminary No Growth Day 1 Assess/Plan/Problems-Billing Assessment: 78 yo white male with PMHx significant for recent DVT on warfarin, paroxysmal A fib on AC, CAD s/p PCI, PAD s/p femoral bypass, DMT2, and COPD presents to the ED on recommendation of his visiting nurse c/o left LE erythema and edema. Recently discharged from [facility] on 08/06/18 for DVT with failure of xarelto, switched to warfarin. Admitted to [facility] for treatment of left lower extremity erythema and edema. - Patient Problems (1) Cellulitis of lower extremity Comment: -erythema and edema to left LE in setting of DVT, hx PAD, hx DMT2 with chronic wounds -blood culture without growth x 1 day -started on IV vancomycin for MRSA coverage given recent hospitalization, will continue for an additional day and monitor -there is likely an additional contributing factor of post thrombotic syndrome given current DVT in LLE (2) DVT (deep venous thrombosis) Code(s): I82.409 - ACUTE EMBOLISM AND THOMBOS UNSP DEEP VN UNSP LOWER EXTREMITY SNOMED Code(s): 977758042 Comment: -confirmed during last admission via doppler on 08/02/18 -Doppler at admission on 08/09/18 unchanged, with subcutaneous edema -discharged on 08/06/18 with coumadin; held at admission for very minimal chance of coumadin necrosis -patient's skin is unchanged and therefore will restart 5 mg coumadin and continue to monitor INR daily as this is a new dose for patient and he takes amiodarone which interferes with coumadin; d/c lovenox -INR today 2.39 -likely contributing to erythema and edema of LLE (3) Peripheral arterial disease Code(s): I73.9 - PERIPHERAL VASCULAR DISEASE, UNSPECIFIED SNOMED Code(s): 291351558 Comment: -s/p left femoral artery bypass -continue home pentoxifylline and statin (takes crestor at home which is NF, atorvastatin here) (4) COPD (chronic obstructive pulmonary disease) Code(s): J44.9 - CHRONIC OBSTRUCTIVE PULMONARY DISEASE, UNSPECIFIED SNOMED Code(s): 28014266 Comment: -continue home prn combivent (5) Hypothyroidism Code(s): E03.9 - HYPOTHYROIDISM, UNSPECIFIED SNOMED Code(s): 77612596 Comment: -continue home levothyroxine (6) Paroxysmal A-fib Code(s): I48.0 - PAROXYSMAL ATRIAL FIBRILLATION SNOMED Code(s): 202826440 Comment: -continue home amiodarone, regular rate etoday -previously on xarelto, switched to coumadin in last admission due to DVT, restarting coumadin as previously mentioned above (7) CAD (coronary artery disease) Code(s): I25.10 - ATHSCL HEART DISEASE OF [place] CORONARY ARTERY W/O ANG PCTRS SNOMED Code(s): 34595273 Comment: -continue home statin, fibrate, lasix -pt not taking aspirin, ALE, or BB (8) CKD (chronic kidney disease) Code(s): N18.9 - CHRONIC KIDNEY DISEASE, UNSPECIFIED SNOMED Code(s): 167223809 Comment: -at baseline, Cr 1.29 today -patient may benefit from lisinopril, does not take at home, though normotensive today (9) Diabetes mellitus Code(s): E11.9 - TYPE 2 DIABETES MELLITUS WITHOUT COMPLICATIONS SNOMED Code(s) : 62352122 Comment: -holding home glipizide -uses detemir 28 U at home, continue glargine 20 U daily inpatient with lispro SS (10) DVT prophylaxis Code(s): ITW6437 - SNOMED Code(s): 203572870 Comment: -therapeutic INR on warfarin for treatment of DVT as described above (11) Full code status Onset Date: 05/21/14 Code(s): Z78.9 - OTHER SPECIFIED HEALTH STATUS SNOMED Code(s): 434168873
[2018-08-10 11:25] LABS: C Reactive Protein 12.8 mg/L (<8.01)
[2018-08-10] MEDS: Warfarin TAB(*) 5 MG PO SCH (16:33)
[2018-08-10] MEDS: Atorvastatin* 80 MG TAB PO SCH (17:15)
[2018-08-10] MEDS: Finasteride TAB* 5 MG PO SCH (17:15)
[2018-08-11] MEDS ORDERED: Vancomycin Trough Check NOTE FOLLOW UP ONE (05:30)
[2018-08-11] MEDS: Levothyroxine TAB* 125 MCG TAB PO SCH (06:11)
[2018-08-11 06:33] LABS: ABS Eosinophils 0.2 10^3/ul (0-0.6); ABS Lymphocytes 1.2 10^3/ul (1.0-4.8); ABS Monocytes 0.5 10^3/ul (0-0.8); Eosinophil % 3.6 %; Hematocrit 36 % (42-52); Hemoglobin 11.8 g/dL (14.0-18.0); Lymphocyte % 23.8 %; Mean Corpuscular HGB Conc 33 g/dL (31-36); Mean Corpuscular Hemoglobin 28 pg (27-31); Mean Corpuscular Volume 87 fL (80-94); Mean Platelet Volume 6.5 fL (7.4-10.4); Nucleated Red Blood Cells % 0.1; Platelet Count 320 10^3/uL (150-450); Red Blood Count 4.17 10^6 /uL (4.18-5.48); Red Cell Distribution Width 14 % (10.5-15); White Blood Count 4.8 10^3/uL (3.5-10.8)
[2018-08-11 06:37] LABS: INR 2.55 (0.82-1.09)
[2018-08-11 07:06] LABS: BUN/Creatinine Ratio 13.2 (8-20); C Reactive Protein 8.85 mg/L (<8.01); EGFR African American 61.5 (>60); EGFR Non-African American 50.8 (>60); Potassium 3.9 mmol/L (3.5-5.0)
[2018-08-11] MEDS: Vancomycin(*) 1,500 MG in NS 0.9% 250 ML* 250 ML IVPB SCH ×2 (07:23→17:56)
[2018-08-11] MEDS: Insulin LISPRO* 1 UNITS UNIT SUBCUT SCH ×4 (08:11→21:57)
[2018-08-11] MEDS: Sucralfate TAB* 1 GM PO SCH ×4 (09:03→20:39)
[2018-08-11] MEDS: OMEGA ACID ETHYL ESTERS PO SCH ×2 (09:24→20:39)
[2018-08-11] MEDS: Methenamine Hippurate TAB* 1 GM TAB PO SCH ×2 (09:24→20:39)
[2018-08-11] MEDS: Pentoxifylline CR TAB* 400 MG PO SCH ×3 (09:25→20:39)
[2018-08-11] MEDS: Morphine TAB Extended Release (*) 30 MG TAB.ER PO SCH ×2 (09:25→20:38)
[2018-08-11] MEDS: Pantoprazole TAB * 40 MG TAB PO SCH ×2 (09:25→20:39)
[2018-08-11] MEDS: Gabapentin CAP(*) 100 MG PO SCH ×3 (09:26→20:39)
[2018-08-11] MEDS: Furosemide TAB* 20 MG PO SCH (09:26)
[2018-08-11] MEDS: Amiodarone TAB* 200 MG PO SCH ×2 (09:26→20:39)
[2018-08-11] MEDS: Folic Acid TAB* 1 MG PO SCH (09:26)
[2018-08-11] MEDS: Ferrous Sulfate TAB* 325 MG PO SCH (09:26)
[2018-08-11] MEDS: CMCS: Fenofibrate(NF) 145 MG TAB PO SCH (09:26)
[2018-08-11] MEDS: Insulin GLARGINE(*) 1 UNITS UNIT SUBCUT SCH (09:27)
[2018-08-11] MEDS: Gabapentin CAP(*) 400 MG PO SCH ×3 (09:33→20:38)
[2018-08-11] MEDS: CMCS: Cyclosporine 0.05% OPHTH (NF) 0.4 ML VIAL BOTH EYES SCH ×2 (09:34→20:39)
[2018-08-11 13:31] LABS: Protein S Antigen 103 % (80 - 160)
[2018-08-11] MEDS ORDERED: Vancomycin per Pharmacy* NOTE FOLLOW UP PRN (14:49)
[2018-08-11 16:11] LABS: Protein S Antigen 100 % (80 - 160)
[2018-08-11] MEDS: Finasteride TAB* 5 MG PO SCH (17:56)
[2018-08-11] MEDS: Warfarin TAB(*) 5 MG PO SCH (17:56)
[2018-08-11] MEDS: Atorvastatin* 80 MG TAB PO SCH (17:56)
--- NOTE | 2018-08-11 19:57 | PN ---
Subjective Date of Service: 08/11/18 Interval History: Patient without complaints. Patient does not feel comfortable going home today. Denies pain to LE, fever/chills, tachycardia, chest pain, dyspnea. Objective Active Medications: Acetaminophen (Tylenol Tab*) 325 mg PO Q4H PRN PRN Reason: FEVER/PAIN Albuterol/Ipratropium (Combivent Respimat(Nf)) 1 puff INH QID PRN; Protocol PRN Reason: SHORTNESS OF BREATH Amiodarone HCl (Cordarone Tab*) 200 mg PO BID [facility] Last Admin: 08/11/18 09:26 Dose: 200 mg Atorvastatin Calcium (Lipitor*) 80 mg PO QPM [facility] Last Admin: 08/11/18 17:56 Dose: 80 mg Cyclobenzaprine HCl (Flexeril Tab*) 10 mg PO QPM PRN PRN Reason: PAIN - MODERATE Cyclosporine (Restasis 0.05% Oph) 1 drop BOTH EYES BID [facility]; Protocol Last Admin: 08/11/18 09:34 Dose: 1 drop Dextrose (D50w Syringe 50 Ml*) 12.5 gm IV PUSH .FOR FS < 60 - SS PRN PRN Reason: FS < 60 Docusate Sodium (Colace Cap*) 200 mg PO DAILY PRN PRN Reason: CONSTIPATION Fenofibrate (Tricor(Nf)) 145 mg PO QAM [facility]; Protocol Last Admin: 08/11/18 09:26 Dose: 145 mg Ferrous Sulfate (Ferrous Sulfate Tab*) 325 mg PO DAILY [facility] Last Admin: 08/11/18 09:26 Dose: 325 mg Finasteride (Proscar Tab*) 5 mg PO QPM [facility] Last Admin: 08/11/18 17:56 Dose: 5 mg Folic Acid (Folvite Tab*) 1 mg PO QAM [facility] Last Admin: 08/11/18 09:26 Dose: 1 mg Furosemide (Lasix Tab*) 20 mg PO DAILY [facility] Last Admin: 08/11/18 09:26 Dose: 20 mg Gabapentin (Neurontin Cap(*)) 100 mg PO TID [facility] Last Admin: 08/11/18 12:39 Dose: 100 mg Gabapentin (Neurontin Cap(*)) 400 mg PO TID [facility] Last Admin: 08/11/18 12:39 Dose: 400 mg Vancomycin HCl 1,500 mg/ (Sodium Chloride) 250 mls @ 166.667 mls/hr IVPB Q12H [facility]; Protocol Last Admin: 08/11/18 17:56 Dose: 166.667 mls/hr Insulin Glargine (Lantus(*)) 20 units SUBCUT Q24H [facility] Last Admin: 08/11/18 09:27 Dose: 20 unit Insulin Human Lispro (Humalog*) 0 units SUBCUT [facility]; Protocol Last Admin: 08/11/18 17:27 Dose: Not Given Levothyroxine Sodium (Synthroid Tab*) 250 mcg PO DAILY@0600 [facility] Last Admin: 08/11/18 06:11 Dose: 250 mcg Lorazepam (Ativan Tab(*)) 1 mg PO TID PRN PRN Reason: ANXIETY Methenamine Hippurate (Hiprex Tab*) 1 gm PO BID [facility] Last Admin: 08/11/18 09:24 Dose: 1 gm Morphine Sulfate (Ms Contin(*)) 30 mg PO BID [facility] Last Admin: 08/11/18 09:25 Dose: 30 mg Nitroglycerin (Nitroglycerin Tab 0.4 Mg*) 0.4 mg SL Q5M PRN PRN Reason: PAIN - CHEST Nystatin (Nystatin Top Powder*) 1 applic TOPICAL BID PRN PRN Reason: RASH Nystatin (Nystatin Cream*) 1 applic TOPICAL BID PRN PRN Reason: RASH [id number] Ethyl Esters (Lovaza (Nf)) 1 gm PO BID [facility]; Protocol Last Admin: 08/11/18 09:24 Dose: 1 gm Oxycodone HCl (Roxycodone Tab*) 15 mg PO Q6H PRN PRN Reason: PAIN Pantoprazole Sodium (Protonix Tab*) 40 mg PO BID [facility] Last Admin: 08/11/18 09:25 Dose: 40 mg Pentoxifylline (Trental Cr Tab*) 400 mg PO TID [facility] Last Admin: 08/11/18 12:39 Dose: 400 mg Pharmacy Consult (Vancomycin Per Pharmacy*) 1 note FOLLOW UP . PRN PRN Reason: PER PROTOCOL Pharmacy Profile Note (Coumadin Daily Reminder*) 0 note FOLLOW UP 1700 [facility] Last Admin: 08/11/18 17:26 Dose: 1 note Polyethylene Glycol/Electrolytes (Miralax*) 17 gm PO DAILY PRN PRN Reason: CONSTIPATION Sucralfate (Carafate*) 1 gm PO [facility] Last Admin: 08/11/18 17:10 Dose: 1 gm Triamcinolone Acetonide (Triamcinolone 0.025% Oint *) 1 applic TOPICAL BID PRN PRN Reason: RASH Warfarin Sodium (Coumadin Tab(*)) 5 mg PO DAILY@1700 [facility]; Protocol Last Admin: 08/11/18 17:56 Dose: 5 mg Vital Signs - 8 hr 08/11/18 08/11/18 08/11/18 12:39 14:45 16:00 Temperature 98 F Pulse Rate 57 Respiratory 16 16 24 Rate Blood Pressure 122/60 (mmHg) O2 Sat by Pulse 97 Oximetry 08/11/18 19:06 Temperature 98.4 F Pulse Rate 56 Respiratory 22 Rate Blood Pressure 123/60 (mmHg) O2 Sat by Pulse 94 Oximetry Oxygen Devices in Use Now: None Appearance: Elderly, white male laying upright in hospital bed, appearing in NAD Eyes: No Scleral Icterus, PERRLA Ears/Nose/Mouth/Throat: Mucous Membranes Moist Neck: NL Appearance and Movements; NL JVP Respiratory: Symmetrical Chest Expansion and Respiratory Effort, Clear to Auscultation Cardiovascular: NL Sounds; No Murmurs; No JVD, RRR Abdominal: - - Abdomen soft, nontender, nondistended Extremities: - - +1 pitting edema to region of erythema; region of erythema has minimal improvement at borders and is very minimally reduced in terms of severity of erythema Skin: - - skin is warm, dry, intact; chronic wound to right malleolus appears unchanged from admission and is without purulence, stable ; chronic wound to left foot appears unchanged and stable Neurological: Alert and Oriented x 3, NL Muscle Strength and Tone Result Diagrams: 08/11/18 05:26 08/11/18 05:26 Microbiology and Other Data: Microbiology 08/09/18 10:48 Aerobic Blood Culture - Preliminary Blood Venous No Growth Day 1 Anaerobic Blood Culture - Preliminary No Growth Day 1 Assess/Plan/Problems-Billing Assessment: 78 yo white male with PMHx significant for recent DVT on warfarin, paroxysmal A fib on AC, CAD s/p PCI, PAD s/p femoral bypass, DMT2, and COPD presents to the ED on recommendation of his visiting nurse c/o left LE erythema and edema. Recently discharged from [facility] on 08/06/18 for DVT with failure of xarelto, switched to warfarin. Admitted to [facility] for treatment of left lower extremity erythema and edema. - Patient Problems (1) Post-thrombotic syndrome of left lower extremity Code(s): I87.002 - POSTTHROMBOTIC SYNDROME W/O COMPLICATIONS OF L LOW EXTREM SNOMED Code(s): 91223604 Comment: -as previously mentioned, it is likely that pt's LLE DVT is contributing to his LLE erythema and edema -given very minimal improvement with IV vancomycin x 2 days, this is likely the largest contributing factor -continuing to treat DVT as discussed below (2) Cellulitis of lower extremity Comment: -patient has been afebrile and without leukocytosis throughout this admission -blood culture without growth -it is possible that, given the patient's risk factors of chronic wounds, PAD, and DMT2, that there is a component of cellulitis, however there has been minimal improvement with IV vancomycin. Given the risk, will continue antibiotic therapy -changing IV vancomycin to IV doxyclycline and po amoxicillin for continued MRSA coverage (3) DVT (deep venous thrombosis) Code(s): I82.409 - ACUTE EMBOLISM AND THOMBOS UNSP DEEP VN UNSP LOWER EXTREMITY SNOMED Code(s): 109785428 Comment: -confirmed during last admission via doppler on 08/02/18 -Doppler at admission on 08/09/18 unchanged, with subcutaneous edema -discharged on 08/06/18 with coumadin; held at admission for very minimal chance of coumadin necrosis -INR today 2.55, continuing warfarin -likely contributing to erythema and edema of LLE (4) Peripheral arterial disease Code(s): I73.9 - PERIPHERAL VASCULAR DISEASE, UNSPECIFIED SNOMED Code(s): 237577694 Comment: -s/p left femoral artery bypass -continue home pentoxifylline and statin (takes crestor at home which is NF, atorvastatin here) (5) COPD (chronic obstructive pulmonary disease) Code(s): J44.9 - CHRONIC OBSTRUCTIVE PULMONARY DISEASE, UNSPECIFIED SNOMED Code(s): 89325025 Comment: -continue home prn combivent (6) Hypothyroidism Code(s): E03.9 - HYPOTHYROIDISM, UNSPECIFIED SNOMED Code(s): 55429543 Comment: -continue home levothyroxine (7) Paroxysmal A-fib Code(s): I48.0 - PAROXYSMAL ATRIAL FIBRILLATION SNOMED Code(s): 122451512 Comment: -continue home amiodarone, regular rate etoday -previously on xarelto, switched to coumadin in last admission due to DVT, restarting coumadin as previously mentioned above (8) CAD (coronary artery disease) Code(s): I25.10 - ATHSCL HEART DISEASE OF [place] CORONARY ARTERY W/O ANG PCTRS SNOMED Code(s): 41762076 Comment: -continue home statin, fibrate, lasix -pt not taking aspirin, ALE, or BB (9) CKD (chronic kidney disease) Code(s): N18.9 - CHRONIC KIDNEY DISEASE, UNSPECIFIED SNOMED Code(s): 320629306 Comment: -at baseline, Cr 1.29 today -patient may benefit from lisinopril, does not take at home, though normotensive today (10) Diabetes mellitus Code(s): E11.9 - TYPE 2 DIABETES MELLITUS WITHOUT COMPLICATIONS SNOMED Code(s) : 74608412 Comment: -holding home glipizide -uses detemir 28 U at home, continue glargine 20 U daily inpatient with lispro SS (11) DVT prophylaxis Code(s): FXF2539 - SNOMED Code(s): 633541839 Comment: -therapeutic INR on warfarin for treatment of DVT as described above (12) Full code status Onset Date: 05/21/14 Code(s): Z78.9 - OTHER SPECIFIED HEALTH STATUS SNOMED Code(s): 353061262 Status and Disposition: Given minimal improvement with IV Vanc, will downgrade antibiotics as discussed and continue to monitor. Patient and his uncomfortable with discharge today. Discharge tomorrow likely.
[2018-08-11] MEDS ORDERED: Amoxicillin PO (*) 875 MG TAB PO SCH (21:00)
[2018-08-11] MEDS ORDERED: DOXYcycline IV* 100 MG in NS 0.9% 250 ML* 250 ML IVPB SCH (21:00)
[2018-08-11] MEDS: ceFAZolin 1 GM* Q8H (AddVan) IVPB SCH ×2 (21:57)
[2018-08-11] MEDS: DOXYcycline CAP(*) 100 MG PO SCH (21:57)
[2018-08-12] MEDS: Levothyroxine TAB* 125 MCG TAB PO SCH (05:20)
[2018-08-12] MEDS: ceFAZolin 1 GM* Q8H (AddVan) IVPB SCH ×2 (05:20)
[2018-08-12 06:47] LABS: ABS Basophils 0.1 10^3/ul (0-0.2); ABS Eosinophils 0.2 10^3/ul (0-0.6); ABS Lymphocytes 1.2 10^3/ul (1.0-4.8); ABS Monocytes 0.5 10^3/ul (0-0.8); ABS Neutrophils 3.9 10^3/ul (1.5-7.7); Eosinophil % 3.1 %; Hematocrit 37 % (42-52); Lymphocyte % 20.5 %; Mean Corpuscular HGB Conc 33 g/dL (31-36); Mean Corpuscular Hemoglobin 28 pg (27-31); Mean Corpuscular Volume 87 fL (80-94); Mean Platelet Volume 6.3 fL (7.4-10.4); Platelet Count 328 10^3/uL (150-450); Red Blood Count 4.22 10^6 /uL (4.18-5.48); Red Cell Distribution Width 14 % (10.5-15); White Blood Count 5.8 10^3/uL (3.5-10.8)
[2018-08-12 06:52] LABS: INR 3.56 (0.82-1.09)
[2018-08-12 07:06] LABS: BUN/Creatinine Ratio 14.2 (8-20); Calcium 9.1 mg/dL (8.6-10.3); EGFR Non-African American 48.7 (>60); Potassium 4.2 mmol/L (3.5-5.0)
[2018-08-12] MEDS ORDERED: Sucralfate TAB* 1 GM PO SCH (07:30)
[2018-08-12 07:52] VITALS: BP 129/55
[2018-08-12] MEDS: Insulin LISPRO* 1 UNITS UNIT SUBCUT SCH (09:21)
[2018-08-12] MEDS: Insulin GLARGINE(*) 1 UNITS UNIT SUBCUT SCH (09:21)
[2018-08-12] MEDS: CMCS: Fenofibrate(NF) 145 MG TAB PO SCH (09:22)
[2018-08-12] MEDS: OMEGA ACID ETHYL ESTERS PO SCH (09:22)
[2018-08-12] MEDS: Methenamine Hippurate TAB* 1 GM TAB PO SCH (09:22)
[2018-08-12] MEDS: DOXYcycline CAP(*) 100 MG PO SCH (09:23)
[2018-08-12] MEDS: Amiodarone TAB* 200 MG PO SCH (09:23)
[2018-08-12] MEDS: Furosemide TAB* 20 MG PO SCH (09:23)
[2018-08-12] MEDS: Gabapentin CAP(*) 100 MG PO SCH (09:23)
[2018-08-12] MEDS: Morphine TAB Extended Release (*) 30 MG TAB.ER PO SCH (09:23)
[2018-08-12] MEDS: Folic Acid TAB* 1 MG PO SCH (09:23)
[2018-08-12] MEDS: Pentoxifylline CR TAB* 400 MG PO SCH (09:23)
[2018-08-12] MEDS: CMCS: Cyclosporine 0.05% OPHTH (NF) 0.4 ML VIAL BOTH EYES SCH (09:24)
[2018-08-12] MEDS: Pantoprazole TAB * 40 MG TAB PO SCH (09:24)
[2018-08-12] MEDS: Gabapentin CAP(*) 400 MG PO SCH (09:24)
--- NOTE | 2018-08-12 20:51 | DS ---
CC: Dr. Jamie Cha * DISCHARGE SUMMARY: DATE OF ADMISSION: 08/09/18 DATE OF DISCHARGE: 08/12/18 PRIMARY CARE PROVIDER: Dr. Jamie Cha. ATTENDING PHYSICIAN: Delmi Kemp MD * (dictated by Amie Israel NP). PRIMARY DIAGNOSES: 1. Postthrombotic syndrome of left leg. 2. Cellulitis of the left leg. SECONDARY DIAGNOSES: 1. Recent deep vein thrombosis. 2. Peripheral arterial disease. 3. Chronic obstructive pulmonary disease. 4. Hypothyroidism. 5. Paroxysmal atrial fibrillation. 6. Coronary artery disease. 7. Chronic kidney disease. 8. Diabetes mellitus type 2. STUDIES WHILE IN THE HOSPITAL: Left lower extremity venous Doppler study on 04/29, reads as nonocclusive thrombus noted within the left common femoral vein and femoral vein and small saphenous vein. Subcutaneous edema. HISTORY OF PRESENT ILLNESS AND HOSPITAL COURSE: Mr. Bryant is a 78-year-old male with past medical history of recent DVT in July 2018, diabetes, AFib, COPD , CAD, PAD, and chronic lower extremity wounds, who presented to the emergency room on 08/09/18 with complaints of lower extremity edema and redness. Please see the history and physical by RACQUEL Spear for a complete summary of the events leading up to this hospitalization. In short, the patient was hospitalized at this facility from 07/31/18 to 08/06/18, at which point he was diagnosed with a left- sided DVT. He had been on Xarelto at that point and subsequently was taken off the Xarelto and placed on Coumadin after bridging with Lovenox. The patient had been taking his Coumadin as prescribed, though he ultimately noted left leg edema and redness and so presented to the emergency room. In the emergency room, he was noted to have a therapeutic INR at 2.38. Labs were essentially otherwise unremarkable. Because of the concern for cellulitis, he was admitted by the hospitalist service. The patient does have a chronic wound on his left foot and so cellulitis was felt to be high on the differential, although because of the recent DVT in this leg, postthrombotic syndrome was also high on the differential. The patient was treated with vancomycin, and as of yesterday, 08/11/18, it was changed to doxycycline and ceftriaxone. I will note that there was little improvement in the erythema with the vancomycin. Blood cultures were noted to be negative. He did not meet sepsis criteria. It was felt as though the patient was stable for discharge yesterday, though the patient and his did not feel comfortable with him going home. On my exam this morning, the patient reports feeling well and he does wish to go home today. There is still erythema to the left lower leg, although this has slightly receded from the demarcated line on admission. There is associated +2 pitting edema to the left lower extremity, though the patient notes that there is typically some degree of edema in that lower extremity. As I noted above, there is a wound to the left foot without having a sign of infection in the wound bed. Heart has a regular rate and rhythm. No murmurs, rubs, or gallops. Lung sounds are clear on room air. No focal neurological deficits. Physical exam is otherwise benign. At this point , it is felt that his symptoms very likely represent a postthrombotic syndrome, though the patient is a very high risk of cellulitis due to the chronic wound on his left foot and diabetes, though at this point, given the risk, it was felt necessary to continue antibiotic therapy. Mr. Bryant is stable for discharge today. Vital signs are as follows: Temp 97.7, heart rate 53, respiratory rate 18, oxygen saturation 96% on room air, blood pressure 129/55. DISCHARGE MEDICATIONS: New medications: 1. Amoxicillin 500 mg p.o. t.i.d. x4 days. 2. Doxycycline 100 mg p.o. b.i.d. x4 days. Continued medications: 1. Acetaminophen 325 mg p.o. q.4 hours p.r.n. fever, pain. 2. Combivent Respimat 1 puff q.i.d. p.r.n. shortness of breath. 3. Amiodarone 200 mg p.o. b.i.d. 4. Ammonium lactate 12% one application topically daily p.r.n. dry skin in neck. 5. Cyclobenzaprine 10 mg p.o. at bedtime. 6. Cyclosporine 0.05% one drop both eyes b.i.d. 7. Docusate 200 mg p.o. daily p.r.n. constipation. 8. Fenofibrate 145 mg p.o. daily. 9. Ferrous sulfate 325 mg p.o. daily. 10. Finasteride 5 mg p.o. at bedtime. 11. Folic acid 1 mg p.o. daily. 12. Furosemide 20 mg p.o. daily. 13. Gabapentin 500 mg p.o. t.i.d. 14. Glipizide 5 mg p.o. b.i.d. 15. Levemir 28 units subcu daily. 16. Levothyroxine 250 mcg p.o. daily. 17. Lorazepam 1 mg p.o. t.i.d. p.r.n. anxiety. 18. Hiprex 1 g p.o. b.i.d. 19. Morphine extended release 30 mg p.o. b.i.d. 20. Nitro 0.4 mg sublingual q.5 minutes p.r.n. chest pain. 21. Lovaza 1 g p.o. b.i.d. 22. Ondansetron 4 mg p.o. q.6 hours p.r.n. nausea, vomiting. 23. Oxycodone 15 mg p.o. q.6 hours p.r.n. pain. 24. Pantoprazole 40 mg p.o. b.i.d. 25. Trental 400 mg p.o. t.i.d. 26. MiraLAX 17 g p.o. daily p.r.n. constipation. 27. Rosuvastatin 40 mg p.o. at bedtime. 28. Sucralfate 1 g p.o. a.c. h.s. 29. Testosterone 200 mg IM every 10 days. Discontinued medications: Warfarin. DISCHARGE PLAN: Mr. Bryant will be discharged home. Activity will be as tolerated. Diet will be diabetic. Medications are noted above. I have prescribed 4 days of amoxicillin and doxycycline to complete a total of 7 days of antibiotic therapy for the possible cellulitis of the left lower extremity. This will provide MRSA coverage. The patient can continue his other usual medications except for his Coumadin. His INR today was 3.56. I have advised the patient to not take any Coumadin today or tomorrow and to have his INR checked on 08/14/18. I have provided him with an order form for this and he states that he has a visiting nurse that comes in on Mondays that he will have her draw this lab. Results will go to Dr. Cha and further dosing instructions will be deferred to the patient's PCP. The patient can continue his usual wound care for his chronic lower extremity wound. He should follow up with his PCP in 4 to 7 days. He has been advised to return to the emergency room or nearest hospital for any worsening of symptoms, shortness of breath, lightheadedness, dizziness, chest discomfort, high fevers, chills, night sweats, loss of consciousness, or any worrisome signs or symptoms. DISCHARGE CONDITION: Stable. DISCHARGE DISPOSITION: Home. This is a summarized report of a complex medical history and hospital stay. For further details, please see the entire medical record. TIME SPENT: Approximately 40 minutes were spent on this discharge. AMIE ISRAEL, [employer] FORENS[employer] SPECIALIST [id number]/CPS #: [id number] KIMBERLY
== END 2018-08-12 11:08 | disposition home health service (06) | DRG 300 ==
LOC: ED 10:21 → MED 18:59 → OBSVTOIN 08-11 19:00
PROVIDERS: ADMIT Internal Medicine; ATTEND Internal Medicine
DX: I87.002 Postthrombotic syndrome without complications of left lower extremity (principal); L03.116 Cellulitis of left lower limb; I82.412 Acute embolism and thrombosis of left femoral vein; I82.492 Acute embolism and thrombosis of other specified deep vein of left lower extremity; J44.9 Chronic obstructive pulmonary disease, unspecified; E03.9 Hypothyroidism, unspecified; I48.0 Paroxysmal atrial fibrillation; I25.10 Atherosclerotic heart disease of native coronary artery without angina pectoris; E11.22 Type 2 diabetes mellitus with diabetic chronic kidney disease; E11.51 Type 2 diabetes mellitus with diabetic peripheral angiopathy without gangrene; N18.9 Chronic kidney disease, unspecified; X58.XXXA Exposure to other specified factors, initial encounter; S80.922A Unspecified superficial injury of left lower leg, initial encounter; E11.40 Type 2 diabetes mellitus with diabetic neuropathy, unspecified; N40.0 Benign prostatic hyperplasia without lower urinary tract symptoms; E78.5 Hyperlipidemia, unspecified; K59.09 Other constipation; F41.9 Anxiety disorder, unspecified; M54.9 Dorsalgia, unspecified; G89.29 Other chronic pain; Z96.642 Presence of left artificial hip joint; E66.9 Obesity, unspecified; E78.00 Pure hypercholesterolemia, unspecified; I12.9 Hypertensive chronic kidney disease with stage 1 through stage 4 chronic kidney disease, or unspecified chronic kidney disease; G47.30 Sleep apnea, unspecified; M19.90 Unspecified osteoarthritis, unspecified site; M81.0 Age-related osteoporosis without current pathological fracture; M06.9 Rheumatoid arthritis, unspecified; K44.9 Diaphragmatic hernia without obstruction or gangrene; K21.0 Gastro-esophageal reflux disease with esophagitis; K22.70 Barrett's esophagus without dysplasia; Z79.84 Long term (current) use of oral hypoglycemic drugs; Y92.9 Unspecified place or not applicable; Z89.422 Acquired absence of other left toe(s); Z90.89 Acquired absence of other organs; Z86.718 Personal history of other venous thrombosis and embolism; Z88.1 Allergy status to other antibiotic agents; Z91.018 Allergy to other foods; Z90.49 Acquired absence of other specified parts of digestive tract; Z98.42 Cataract extraction status, left eye; Z98.41 Cataract extraction status, right eye; Z81.8 Family history of other mental and behavioral disorders; Z87.891 Personal history of nicotine dependence; Z95.5 Presence of coronary angioplasty implant and graft; Z85.01 Personal history of malignant neoplasm of esophagus; Z83.3 Family history of diabetes mellitus; Z80.0 Family history of malignant neoplasm of digestive organs; Z68.32 Body mass index [BMI] 32.0-32.9, adult
CPT/HCPCS: 36415; 80048; 80053; 80202; 83605; 85025; 85302; 85303; 85306; 85610; 85652; 85730; 86140; 87040; 99285; A9270-GY; G0378; J0690; J1650; J3370

== ENCOUNTER 2018-12-20 20:55 | Inpatient (IN) | payer MEDICARE ==
[2018-12-20 21:29] LABS: ABS Basophils 0.1 10^3/ul (0-0.2); ABS Eosinophils 0.1 10^3/ul (0-0.6); ABS Lymphocytes 0.7 10^3/ul (1.0-4.8); ABS Monocytes 0.9 10^3/ul (0-0.8); ABS Neutrophils 8.6 10^3/ul (1.5-7.7); Eosinophil % 0.6 %; Hematocrit 44 % (42-52); Hemoglobin 14.4 g/dL (14.0-18.0); Lymphocyte % 6.8 %; Mean Corpuscular HGB Conc 33 g/dL (31-36); Mean Corpuscular Hemoglobin 29 pg (27-31); Mean Corpuscular Volume 87 fL (80-94); Platelet Count 247 10^3/uL (150-450); Red Blood Count 4.99 10^6 /uL (4.18-5.48); Red Cell Distribution Width 15 % (10-15); White Blood Count 10.4 10^3/uL (3.5-10.8)
[2018-12-20 21:47] LABS: ALT 13 U/L (7-52); AST 12 U/L (13-39); Albumin 3.9 g/dL (3.2-5.2); Albumin/Globulin Ratio 1.3 (1-3); Alkaline Phosphatase 50 U/L (34-104); Anion Gap 8 mmol/L (2-11); BUN/Creatinine Ratio 14.4 (8-20); Blood Urea Nitrogen 19 mg/dL (6-24); CO2 Carbon Dioxide 21 mmol/L (22-32); Chloride 107 mmol/L (101-111); EGFR African American 63.6 (>60); EGFR Non-African American 52.6 (>60); Globulin 2.9 g/dL (2-4); Glucose 177 mg/dL (70-100); Potassium 4.3 mmol/L (3.5-5.0); Sodium 136 mmol/L (135-145); Total Protein 6.8 g/dL (6.4-8.9)
[2018-12-20] MEDS ORDERED: Iodixanol* (CONTRAST) 320 MG/ML 100 ML SDV IV ONE (22:10)
[2018-12-20 22:18] LABS: C Reactive Protein 112.15 mg/L (<8.01)
[2018-12-20] MEDS ORDERED: NS 0.9% 1000 ML** 1,000 ML IV ONE (22:40)
--- NOTE | 2018-12-21 01:43 | ED ---
Abdominal Pain/Male - HPI Summary HPI Summary: This patient is a 78 year old M arriving via ambulance presenting to [facility] with a complaints of abdominal pain since 12/13/18 and fall prior to arrival on in PM. Patient states no history similar episodes of abdominal pain. The patient rates the pain 3/10 in severity. Pain is located in the LLQ. Pain is characterized as aching and is constant without any radiation. Patient states that he has been constipated since 12/13/18. Patient states that he fell to his left side while standing last night, 12/20/18 secondary to tremors. Patient has a baseline tremor but states has been worse over the past 1-2 days. Patient did not injure head or have LOC. Patient denies n/v/d, dysuria, syncope, trauma to head, fever. Patient has a PSHx of appendectomy. - History of Current Complaint Chief Complaint: EDFall Stated Complaint: EVALUATION AFTER FALL PER EMS Time Seen by Provider: 12/20/18 21:00 Hx Obtained From: Patient Onset/Duration: Lasting Days Timing: Constant Severity Currently: Mild Pain Intensity: 3 Pain Scale Used: 0-10 Numeric Location: Discrete At: RLQ Radiates: No Character: Other: - Aching Associated Signs And Symptoms: Positive: Constipation, Other - Postitive- Constipation, Negative-dysuria, trauma to head, syncope. Negative: Fever, Nausea, Vomiting, Diarrhea - Allergies/Home Medications Allergies/Adverse Reactions: Allergies Allergy/AdvReac Type Severity Reaction Status Date / Time banana Allergy See Comment Verified 08/09/18 10:26 walnut Allergy See Comment Verified 08/09/18 10:26 ciprofloxacin AdvReac GI Upset Verified 08/09/18 10:26 Home Medications: Home Medications Apixaban* [Eliquis*] 5 mg PO BID 12/20/18 [History Confirmed 12/20/18] Gabapentin TAB(NF) [Neurontin 600 mg TAB(NF)] 600 mg PO TID 12/20/18 [History Confirmed 12/20/18] LORazepam TAB(*) [Ativan 1 MG TAB (*)] 1 mg PO TID PRN 12/20/18 [History Confirmed 12/20/18] Levothyroxine TAB* [Synthroid TAB*] 250 mcg PO DAILY 12/20/18 [History Confirmed 12/20/18] celeCOXIB CAP* [CeleBREX CAP*] 200 mg PO QAM 12/20/18 [History Confirmed ] glipiZIDE TAB.XL* [Glucotrol XL*] 5 mg PO BID 12/20/18 [History Confirmed ] PMH/Surg Hx/FS Hx/Imm Hx Endocrine/Hematology History: Reports: Hx Anticoagulant Therapy, Hx Diabetes - NIDDM, Hx Thyroid Disease Denies: Hx Blood Disorders, Hx Blood Transfusions, Hx Bone Marrow Disease, Hx Sickle Cell Disease Cardiovascular History: Reports: Hx Angina, Hx Angioplasty, Hx Coronary Artery Disease, Hx Hypercholesterolemia, Hx Hypertension, Other Cardiovascular Problems /Disorders - HISTORY OF ATRIAL FIBRILLARION Denies: Hx Congestive Heart Failure, Hx Myocardial Infarction, Hx Pacemaker/ ICD, Hx Valvular Heart Disease Respiratory History: Reports: Hx Chronic Obstructive Pulmonary Disease (COPD), Hx Sleep Apnea Denies: Hx Asthma GI History: Reports: Hx Gall Bladder Disease - removed, Hx Gastroesophageal Reflux Disease, Hx Hiatal Hernia, Hx Ulcer, Other GI Disorders - Barretts esophagus History: Denies: Hx Renal Disease Musculoskeletal History: Reports: Hx Arthritis - ARTHRITIS, Hx Rheumatoid Arthritis, Hx Back Problems, Hx Osteoporosis Sensory History: Reports: Hx Cataracts - RIGHT EYE, Hx Contacts or Glasses, Hx Eye Injury, Hx Vision Problem Denies: Hx Eye Prosthesis, Hx Glaucoma, Hx Legally Blind, Hx Macular Degeneration, Hx Deafness, Hx Hearing Aid, Hx Hearing Problem, Other Sensory Impairments Opthamlomology History: Reports: Hx Cataracts - RIGHT EYE, Hx Contacts or Glasses, Hx Eye Injury, Hx Vision Problem Denies: Hx Eye Prosthesis, Hx Glaucoma, Hx Legally Blind, Hx Macular Degeneration, Other Sensory Impairments Neurological History: Reports: Other Neuro Impairments/Disorders - diabetic neuropathy (feet) Denies: Hx Dementia, Hx Developmental Delay, Hx Headaches, Hx Migraine, Hx Nerve Disease, Hx Seizures, Hx Spinal Cord Injury, Hx Transient Ischemic Attacks (TIA) Psychiatric History: Reports: Hx Anxiety Denies: Hx Panic Disorder - Cancer History Cancer Type, 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 - REMOVED- INCLUDING MARGINS NO NEED FOR CHEMO OR RADIATION Hx Chemotherapy: No Hx Radiation Therapy: No - Surgical History Surgery Procedure, Year, and Place: 10 CARDIAC STENTS ( [place]), CHOLECYSTECTOMY, APPENDECTOMY, LEFT TOTAL HIP, ESOPHAGEAL CA TUMOR REMOVED 2014. FEET - [place]. NASAL - CLEAR THE PASSAGE. LEFT 5TH TOE AMPUTATION Hx Anesthesia Reactions: No - Immunization History Date of Tetanus Vaccine: [facility] Infectious Disease History: No Infectious Disease History: Reports: Hx Clostridium Difficile - 2017, Hx Hepatitis - CURED Denies: Hx Human Immunodeficiency Virus (HIV), Hx of Known/Suspected MRSA, Hx Shingles, Hx Tuberculosis, Hx Known/Suspected VRE, Hx Known/Suspected VRSA, History Other Infectious Disease, Traveled Outside the [place] in Last 30 Days - Family History Known Family History: Positive: Diabetes, Other - alzheimer's and colon CA - Social History Alcohol Use: None Hx Substance Use: No Substance Use Type: Reports: None Hx Tobacco Use: Yes Smoking Status (MU): Former Smoker Type: Cigarettes Amount Used/How Often: 1.5ppd Length of Time of Smoking/Using Tobacco: 50 years Have You Smoked in the Last Year: No Review of Systems Negative: Fever Positive: Abdominal Pain, Other - Constipation . Negative: Vomiting, Diarrhea, Nausea Negative: dysuria Musculoskeletal: Other - positive - fall Neurological: Other - negative - head trauma Negative: Syncope All Other Systems Reviewed And Are Negative: Yes Physical Exam - Summary Physical Exam Summary: Constitutional: Well-developed, Well-nourished, Alert. (-) Distressed Skin: Warm, Dry, right sided incision HENT: Normocephalic; Atraumatic Eyes: Conjunctiva normal Neck: Musculoskeletal ROM normal neck. (-) JVD, (-) Stridor, (-) Nuchal rigidity Cardio: Rhythm regular, rate normal, Heart sounds normal; Intact distal pulses; Radial pulses are 2+ and symmetric. (-) Murmur Pulmonary/Chest wall: Effort normal. (-) Respiratory distress, (-) Wheezes, (-) Rales Abd: Soft, Obese, (-) tenderness, (-) Distension, (-) Guarding, (-) Rebound, LLQ tenderness Musculoskeletal: (-) Edema, Left fifth toe amputation due to DM foot ulcer to left lateral, Lateral Distal ulcer on right warren, right ankle, right heal dressed CDI Lymph: (-) Cervical adenopathy Neuro: Alert, Oriented x3, upper extremity tremors Psych: Mood and affect Normal Triage Information Reviewed: Yes Vital Signs On Initial Exam: Initial Vitals Temp Pulse Resp BP Pulse Ox 97.9 F 70 23 137/71 94 12/20/18 20:55 12/20/18 20:55 12/20/18 20:55 12/20/18 20:55 12/20/18 20:55 Vital Signs Reviewed: Yes Diagnostics - Vital Signs Vital Signs Temp Pulse Resp BP Pulse Ox 12/21/18 01:23 62 21 148/80 96 12/21/18 01:00 62 22 94 12/21/18 00:53 62 24 147/70 96 12/21/18 00:25 21 12/21/18 00:23 22 154/92 12/21/18 00:00 62 21 96 12/20/18 23:53 61 21 146/72 95 12/20/18 23:00 18 12/20/18 22:00 14 12/20/18 21:28 67 19 147/77 95 12/20/18 21:00 71 23 93 12/20/18 20:58 75 24 137/71 90 12/20/18 20:57 72 29 95 12/20/18 20:55 97.9 F 70 23 137/71 94 - Laboratory Lab Results: Lab Results 12/20/18 12/20/18 Range/Units 21:21 21:21 WBC 10.4 (3.5-10.8) 10^3/uL RBC 4.99 (4.18-5.48) 10^6 /uL Hgb 14.4 (14.0-18.0) g/dL Hct 44 (42-52) % MCV 87 (80-94) fL MCH 29 (27-31) pg MCHC 33 (31-36) g/dL RDW 15 (10-15) % Plt Count 247 (150-450) 10^3/uL MPV 7.0 L (7.4-10.4) fL Neut % (Auto) 83.1 % Lymph % (Auto) 6.8 % [place] % (Auto) 9.0 % Eos % (Auto) 0.6 % Baso % (Auto) 0.5 % Absolute Neuts (auto) 8.6 H (1.5-7.7) 10^3/ul Absolute Lymphs (auto) 0.7 L (1.0-4.8) 10^3/ul Absolute Monos (auto) 0.9 H (0-0.8) 10^3/ul Absolute Eos (auto) 0.1 (0-0.6) 10^3/ul Absolute Basos (auto) 0.1 (0-0.2) 10^3/ul Absolute Nucleated RBC 0.0 10^3/ul Nucleated RBC % 0.0 Sodium 136 (135-145) mmol/L Potassium 4.3 (3.5-5.0) mmol/L Chloride 107 (101-111) mmol/L Carbon Dioxide 21 L (22-32) mmol/L Anion Gap 8 (2-11) mmol/L BUN 19 (6-24) mg/dL Creatinine 1.32 H (0.67-1.17) mg/dL Est GFR ( Amer) 63.6 (>60) Est GFR (Non-Af Amer) 52.6 (>60) BUN/Creatinine Ratio 14.4 (8-20) Glucose 177 H (70-100) mg/dL Calcium 8.0 L (8.6-10.3) mg/dL Total Bilirubin 0.60 (0.2-1.0) mg/dL AST 12 L (13-39) U/L ALT 13 (7-52) U/L Alkaline Phosphatase 50 (34-104) U/L Troponin I 0.00 (<0.04) ng/mL C-Reactive Protein 112.15 H (<8.01) mg/L C-React Prot High Sens Cancelled Total Protein 6.8 (6.4-8.9) g/dL Albumin 3.9 (3.2-5.2) g/dL Globulin 2.9 (2-4) g/dL Albumin/Globulin Ratio 1.3 (1-3) Lipase < 10 L (11.0-82.0) U/L Result Diagrams: 12/20/18 21:21 12/20/18 21:21 Lab Statement: Any lab studies that have been ordered have been reviewed, and results considered in the medical decision making process. - Radiology Chest Xray Radiology Interpretation Completed By: ED Physician Summary of Radiographic Findings: CXR reveals, per ED Physician, no acute process. Pending official report - CT Abd/Pel CT CT Interpretation Completed By: Radiologist Summary of CT Findings: Abd/Pel CT reveals, per radiologist, IMPRESSION: 1. The patient has a history of esophageal cancer. No surgical changes to the. distal esophagus. 2. Moderate distention of the descending colon with stool. Mesenteric inflammatory changes next to the descending colon. No colonic wall thickening. No evidence of perforation. No free fluid. No evidence of an obstruction. This may represent a developing colitis. 3. Osteoporotic spine with multiple compression fractures which are unchanged since previous study of 11/29/2016. ED Physician has reviewed this report. - EKG 2104 Cardiac Rate: Other Rate - 67 bpm EKG Rhythm: Sinus Rhythm Summary of EKG Findings: SR with 67 bpm with prolonged LA interval. No significant changes compared to 03/30/19. Re-Evaluation - Re-Evaluation First Eval Change: Improved - CT scan notable for large stool burden, early colitis. Given elevated CRP, and symptomatic left lower quadrant pain, will treat with antibiotics and admission for observation. Abdominal Pain Male Course/Dx - Course Course Of Treatment: 78 y/o male w hx diabetes presents with left lower quadrant pain, constipation, and fall. Physical exam with left lower quadrant tenderness, will check a CT (concern for diverticulitis, mass, obstruction). Also has small ecchymosis to the left chest wall denies head trauma or LOC. - Diagnoses Provider Diagnoses: Acute colitis - Provider Notifications Discussed Care Of Patient With: Lorene Winters - Hospitalist Time Discussed With Above Provider: 01:10 Instructed by Provider To: Other - Dr. Lorene Winters agrees to admit patient. Discharge ED - Sign-Out/Discharge Documenting (check all that apply): Patient Departure - admitted All imaging exams completed and their final reports reviewed: Yes Patient Received Moderate/Deep Sedation with Procedure: No - Discharge Plan Condition: Stable Disposition: ADMITTED TO [facility] - Billing Disposition and Condition Condition: STABLE Disposition: Admitted to [facility] - Attestation Statements Document Initiated by Scribe: Yes Documenting Scribe: Julieta Boyd Provider For Whom Kathleenibe is Documenting (Include Credential): Jack Page MD Scribe Attestation: Julieta Berry, scribed for Jack Page MD on 12/21 at 0557. Scribe Documentation Reviewed: Yes Provider Attestation: The documentation as recorded by the scribe, Julieta Boyd accurately reflects the service I personally performed and the decisions made by me, Jack Page MD Status of Scribe Document: Viewed
[2018-12-21] MEDS ORDERED: Amoxicillin/Clavulanate TAB* 875 MG PO ONE (01:51)
[2018-12-21] MEDS ORDERED: metroNIDAZOLE IV 500 MG/100ML* 500 MG/100 ML BAG IVPB ONE (01:52)
[2018-12-21] MEDS ORDERED: cefTRIAXone(*) 1 GM in NS 0.9% 50 ML* 50 ML IVPB ONE (01:52)
[2018-12-21] MEDS ORDERED: cefTRIAXone(*) 1 GM ADVAN/BAG ONE (01:57)
[2018-12-21] MEDS ORDERED: Senna TAB 8.6 mg* TAB PO PRN (02:44)
[2018-12-21] MEDS ORDERED: Acetaminophen TAB* 325 MG PO PRN (02:44)
[2018-12-21] MEDS ORDERED: Magnesium Hydroxide LIQ* 30 ML UDC PO PRN (02:44)
[2018-12-21] MEDS ORDERED: Albuterol/Ipratropium NEB.SOL* Albuterol 2.5 MG/Ipratropium 0.5 MG 3 ML INH PRN (02:49)
[2018-12-21] MEDS ORDERED: LORazepam TAB(*) 1 MG PO PRN (02:49)
[2018-12-21] MEDS ORDERED: Dextrose 50% VIAL 50 ml IV PUSH PRN (02:54)
[2018-12-21 04:54] LABS: TSH (Thyroid Stimulating Horm) 0.21 mcIU/mL (0.34-5.60)
[2018-12-21] MEDS: oxyCODONE TAB* 5 MG TAB PO PRN (05:07)
[2018-12-21] MEDS ORDERED: Levothyroxine TAB* 125 MCG TAB PO SCH ×2 (06:00)
[2018-12-21] MEDS: Levothyroxine TAB* 100 MCG TAB PO SCH (06:14)
[2018-12-21] MEDS: Insulin LISPRO* 1 UNITS UNIT SUBCUT SCH ×3 (09:13→16:56)
[2018-12-21] MEDS: CMCS:Fenofibrate(NF) 145 MG TAB PO SCH (09:13)
[2018-12-21] MEDS: Insulin GLARGINE(*) 1 UNITS UNIT SUBCUT SCH (09:14)
[2018-12-21] MEDS: Morphine TAB Extended Release (*) 30 MG TAB.ER PO SCH ×2 (09:14→21:53)
[2018-12-21] MEDS: Sucralfate TAB* 1 GM PO SCH ×4 (09:14→21:53)
[2018-12-21] MEDS: Amiodarone TAB* 200 MG PO SCH ×2 (09:14→21:52)
[2018-12-21] MEDS: Gabapentin CAP(*) 300 MG PO SCH ×3 (09:15→21:52)
[2018-12-21] MEDS: Apixaban* 5 MG TAB PO SCH ×2 (09:15→21:53)
[2018-12-21] MEDS: Ferrous Sulfate TAB* 325 MG PO SCH (09:15)
[2018-12-21] MEDS: Furosemide TAB* 20 MG PO SCH (09:15)
[2018-12-21] MEDS: Pantoprazole TAB * 40 MG TAB PO SCH ×2 (09:16→21:53)
[2018-12-21] MEDS: CMCS:Cyclosporine 0.05% OPHTH (NF) 0.4 ML VIAL BOTH EYES SCH ×2 (09:16→21:58)
[2018-12-21] MEDS: metroNIDAZOLE IV 500 MG/100ML* 500 MG/100 ML BAG IVPB SCH ×2 (09:16→16:58)
[2018-12-21] MEDS: Pentoxifylline CR TAB* 400 MG PO SCH ×3 (09:16→16:56)
[2018-12-21 09:41] LABS: Hematocrit 38 % (42-52); Hemoglobin 12.7 g/dL (14.0-18.0); Mean Corpuscular HGB Conc 33 g/dL (31-36); Mean Corpuscular Hemoglobin 29 pg (27-31); Mean Corpuscular Volume 86 fL (80-94); Platelet Count 220 10^3/uL (150-450); Red Blood Count 4.39 10^6 /uL (4.18-5.48); Red Cell Distribution Width 15 % (10-15); White Blood Count 8.2 10^3/uL (3.5-10.8)
[2018-12-21 09:59] LABS: BUN/Creatinine Ratio 13.9 (8-20); C Reactive Protein 141.26 mg/L (<8.01); Calcium 7.2 mg/dL (8.6-10.3); EGFR African American 69.7 (>60); EGFR Non-African American 57.6 (>60); Potassium 3.9 mmol/L (3.5-5.0)
--- NOTE | 2018-12-21 09:59 | HP ---
HISTORY AND PHYSICAL: DATE OF ADMISSION: 12/21/18 HEALTHCARE PROXY: His , Mandi Bryant. CODE STATUS: Full. CHIEF COMPLAINT: Constipation for 7 days and recent falls. HISTORY OF PRESENT ILLNESS: Mr. Bryant is a 78-year-old man with diabetes complicated by neuropathy, chronic lower extremity wounds, essential tremor, hypothyroidism, chronic constipation, paroxysmal atrial fibrillation, on anticoagulation, coronary artery disease, anxiety, who is presenting with 7 days of constipation and 1 day of falls. He reports being in his usual state of health until 7 days ago when he began to experience left lower quadrant pain. The pain has gotten better over the last 7 days. However, since the pain started, he has not been able to have a bowel movement. He denies associated fevers, chills, nausea, or vomiting. He states he experiences constipation chronically, but never for this long. He is on morphine 30 mg twice a day with oxycodone as needed, but states that he also takes a bowel regimen and has been taking MiraLAX daily over the last week without effect. He reports that he has also been getting progressively weaker since his constipation started and states that today his weakness associated with his baseline essential tremor have been so bad that he fell twice with his walker, once this morning and once prior to coming to the emergency room. He was alert during these falls. He denies loss of consciousness, head strike, or associated lightheadedness or chest pain. He denies injuring himself after falling and was able to get up from the floor. He states that he is normally very "zippy" with his walker, but has just got progressively weak over the last 7 days. A complete 10-point review systems was performed and all pertinent positives and negatives are listed in the HPI. In the emergency room, the patient had an abdominal CT scan, which was significant for moderate distension of the descending colon with stool with associated mesenteric inflammatory changes without colonic wall thickening, which may represent a developing colitis. He was initiated on ceftriaxone and Flagyl and asked to be admitted to the medical service for physical therapy evaluation. PAST MEDICAL HISTORY: 1. Diabetes mellitus, complicated by neuropathy. 2. Chronic wounds to lower extremities. 3. Essential tremor. 4. Hypothyroidism. 5. Chronic constipation on opioids. 6. BPH. 7. GERD. 8. Atrial fibrillation, on anticoagulation. 9. COPD. 10. Anxiety. 11. Coronary artery disease, status post PCI. 12. Peripheral arterial disease, status post femoral bypass. 13. Chronic back pain. PAST SURGICAL HISTORY: 1. Left-sided femoral bypass in 2018. 2. Left hip arthroplasty. 3. Cholecystectomy. 4. Cataract surgery bilaterally. 5. Appendectomy. 6. Left fifth toe amputation. 7. Bilateral foot surgeries. HOME MEDICATIONS: 1. Combivent 1 puff up to 4 times a day as needed for shortness of breath. 2. Lorazepam 1 mg 3 times a day as needed for anxiety. 3. Rosuvastatin 40 mg daily. 4. Apixaban 5 mg twice a day. 5. Amiodarone 200 mg twice a day. 6. Fenofibrate 145 mg daily. 7. Levothyroxine 250 mcg daily. 8. Nitroglycerin 0.4 mg sublingual as needed. 9. Cyclobenzaprine 10 mg nightly. 10. Insulin detemir 28 units daily. 11. Glipizide 5 mg twice a day. 12. Finasteride 5 mg nightly. 13. Pantoprazole 40 mg twice a day. 14. Morphine extended release 30 mg twice a day. 15. Oxycodone 10 mg every 6 hours as needed for pain. 16. Furosemide 20 mg daily. 17. Levothyroxine 250 mcg daily. 18. Testosterone 200 mg IM every 10 days. 19. Gabapentin 600 three times a day. 20. Sucralfate 1 g 4 times a day. 21. Pentoxifylline 400 mg 3 times a day. 22. Celecoxib 200 mg daily. 23. Tylenol 325 mg every 4 hours as needed for pain. 24. MiraLAX 17 g daily as needed for constipation. 25. Docusate 200 mg daily. 26. Folic acid 1 mg daily. 27. Grant-3. ALLERGIES: BANANAS and WALNUTS cause tingling. CIPROFLOXACIN does not result in allergy, but the patient is scared to take it because he thinks his tendons are already weak. FAMILY HISTORY: Father had Alzheimer's and from complications in his 60s. Mother lived to her 90s, of unknown causes. SOCIAL HISTORY: The patient lives at home with his Mandi who is his healthcare proxy. He previously worked in [employer], but stopped due to health issues in 2016. He quit smoking in 2008 and has approximately 75- pack-a- year history. Denies alcohol or illicit drug use. REVIEW OF SYSTEMS: A complete 10-point review systems was performed and all pertinent positives and negatives are listed in the HPI. PHYSICAL EXAMINATION GENERAL: He is a chronically ill-appearing man, in no acute distress. He is alert and interactive and answers questions appropriately. VITAL SIGNS: Afebrile. Heart rate 60s, blood pressure 138/70, respiratory rate 22, oxygen saturation 95% on room air. HEENT: Head atraumatic. Pupils equal, round, and reactive to light. OP moist. NECK: Supple. No JVD. LUNGS: Clear to auscultation bilaterally. Chest expansion symmetric. CARDIAC: With regular rate and rhythm. No murmurs, gallops, or rubs. ABDOMEN: Obese, possibly distended, tenderness to palpation in left lower quadrant. No guarding or rebound. Well-healed old surgical scar in right lower quadrant. EXTREMITIES: Lower extremities are warm, but significant signs of peripheral vascular disease. No edema. Left fifth toe amputation. Foot ulcer at lateral aspect of left foot and right lateral malleolus ulcers. Hyperpigmentation of lower extremities. No evidence of infection. No malodor, nonpurulent. Scab over left first toe. NEUROLOGIC: Bilateral upper extremity tremor noted. Hip flexion 5/5 bilaterally. DIAGNOSTIC STUDIES/LAB DATA: CBC unremarkable. BMP with creatinine 1.32, which is slightly improved from baseline. CRP 112, TSH 0.21. Abdomen and pelvis CT with moderate distention of the descending colon with stool. Mesenteric inflammatory changes next to the descending colon. No colonic wall thickening. No evidence of perforation. No free fluid. This may represent developing colitis. ASSESSMENT AND PLAN: Mr. Bryant is a 78-year-old man with diabetes complicated by neuropathy, chronic lower extremity wounds, paroxysmal atrial fibrillation, on Coumadin, coronary artery disease, status post PCI, peripheral arterial disease, status post femoral bypass, who presented to the emergency room with 7 days without a bowel movement and recent mechanical falls and weakness. His CT was found with possible colitis while he had no fever or leukocytosis. His CRP is elevated. 1. Constipation: This is possibly from chronic opioid use. We will order a bowel regimen and enema. Monitor serial abdominal exams. 2. Colitis: The patient has left lower quadrant pain with possible colitis on CT. He is afebrile without leukocytosis; however, he has an elevated CRP. For now, we will continue IV antibiotics started in the emergency room, ceftriaxone and Flagyl. 3. Recent mechanical falls and weakness: It is unclear why patient would suddenly develop weakness. He has no focal neuro deficits. If indeed the patient does have colitis, this could be evidence of the patient's infection. We will order physical therapy evaluation. Continue to follow neurologic exam. 4. Diabetes: Continue the patient's home insulin 22 units glargine daily with insulin sliding scale and follow fingersticks. Likely, the patient should not be discharged on sulfonylurea which he has been taking at home as he is on insulin and there are preferred alternative oral medications. 5. Coronary artery disease: Continue the patient's home atorvastatin. 6. Atrial fibrillation: Continue apixaban 5 mg twice a day and amiodarone 200 mg twice a day. 7. Iron deficiency anemia: Continue ferrous sulfate 325 daily on an empty stomach. 8. Hypothyroidism: The patient's TSH was mildly decreased. So, we will decrease his home Synthroid from 250 to 200 and have him follow up his TSH as an outpatient. 9. Peripheral vascular disease: Continue home pentoxifylline. 10. Chronic pain: I will continue the patient's home morphine 30 mg twice a day with oxycodone 50 mg every 6 hours as needed. 11. Anxiety: Continue the patient's home Ativan. 12. Chronic kidney disease: The patient's creatinine is slightly better than his baseline. Continue to monitor renally dosed meds. 13. DVT prophylaxis: The patient is on apixaban. 14. Code status: The patient is full code. TIME SPENT: Approximately 60 minutes were spent on the admission of this patient, more than half of which was spent at bedside for interview and exam. [id number]/[facility] #: [id number] KIMBERLY
[2018-12-21] MEDS ORDERED: Influenza VAC *QUAD* 2019-20* 0.5 ML SYRINGE IM ONE (12:00)
--- NOTE | 2018-12-21 12:53 | PN ---
Subjective Date of Service: 12/21/18 Interval History: Mr. Bryant is not feeling well this morning. Abdominal pain is persistent in the LLQ and he feels very constipated, slightly bloated. Denies N/V and was able to eat breakfast today. No CP or SOB. No concerns from nursing. Family History: Unchanged from Admission Social History: Unchanged from Admission Past Medical History: Unchanged from Admission Objective Active Medications: Acetaminophen (Tylenol Tab*) 975 mg PO Q8H PRN Pain - Mild to Moderate Albuterol/Ipratropium (Duoneb (Albuterol 2.5 Mg/Ipratropium 0.5 Mg)) 1 neb INH QID PRN; Protocol SHORTNESS OF BREATH Amiodarone HCl (Cordarone Tab*) 200 mg PO BID MARK Apixaban (Eliquis*) 5 mg PO BID MARK Atorvastatin Calcium (Lipitor*) 80 mg PO QPM MARK Cyclosporine (Restasis 0.05% Ophth) 1 drop BOTH EYES BID MARK; Protocol Dextrose (Dextrose 50% Vial 50 Ml*) 25 ml IV PUSH .FOR FS < 60 - SS PRN FS < 60 Fenofibrate (Tricor(Nf)) 145 mg PO QAM MARK; Protocol Ferrous Sulfate (Ferrous Sulfate Tab*) 325 mg PO DAILY MARK Finasteride (Proscar Tab*) 5 mg PO QPM MARK Furosemide (Lasix Tab*) 20 mg PO DAILY MARK Gabapentin (Neurontin Cap(*)) 600 mg PO TID MARK Metronidazole/Sodium Chloride (Flagyl 500 Mg Ivpb*) 500 mg in 100 mls @ 100 mls /hr IVPB Q8H MARK Ceftriaxone Sodium 1 gm/ (Sodium Chloride) 50 mls @ 100 mls/hr IVPB Q24HR@2100 [facility] Insulin Glargine (Lantus(*)) 22 units SUBCUT DAILY MARK Insulin Human Lispro (Humalog*) 0 units SUBCUT AC MARK; Protocol Levothyroxine Sodium (Synthroid Tab*) 200 mcg PO DAILY@0600 MARK Lorazepam (Ativan Tab(*)) 1 mg PO TID PRN ANXIETY Magnesium Hydroxide (Milk Of Magnesia Liq*) 30 ml PO Q4H PRN CONSTIPATION Morphine Sulfate (Ms Contin(*)) 30 mg PO BID MARK Oxycodone HCl (Roxycodone Tab*) 15 mg PO Q6H PRN PAIN - SEVERE Pantoprazole Sodium (Protonix Tab*) 40 mg PO BID MARK Pentoxifylline (Trental Cr Tab*) 400 mg PO TID WITH MEALS MARK Senna (Senokot 8.6 Mg Tab*) 1 tab PO BID PRN CONSTIPATION Sucralfate (Carafate*) 1 gm PO ACHS MARK Vital Signs - 8 hr 12/21/18 12/21/18 12/21/18 05:07 07:15 08:00 Temperature 97.5 F Pulse Rate 56 Respiratory 18 18 18 Rate Blood Pressure 114/42 (mmHg) O2 Sat by Pulse 97 Oximetry 12/21/18 12/21/18 12/21/18 09:14 09:15 09:16 Temperature Pulse Rate Respiratory 18 18 18 Rate Blood Pressure (mmHg) O2 Sat by Pulse Oximetry Oxygen Devices in Use Now: None Appearance: Elderly male laying in bed in NAD Eyes: No Scleral Icterus Ears/Nose/Mouth/Throat: Mucous Membranes Moist Neck: NL Appearance and Movements; NL JVP, Trachea Midline Respiratory: Symmetrical Chest Expansion and Respiratory Effort, Clear to Auscultation Cardiovascular: NL Sounds; No Murmurs; No JVD Abdominal: - - Large, round, normoactive BS, LLQ tender Neurological: Alert and Oriented x 3 Lines/Tubes/Other Access: Clean, Dry and Intact Peripheral IV Nutrition: Taking PO's Result Diagrams: 12/21/18 09:27 12/21/18 09:27 Assess/Plan/Problems-Billing Assessment: Mr. Bryant is a 78 yo M with PMH of DM2, chronic constipation r/t opioid use, afib, COPD, CAD, and GERD; who presented to the ED with c/o constipation and recent falls and was found to have colitis. - Patient Problems (1) Colitis Code(s): K52.9 - NONINFECTIVE GASTROENTERITIS AND COLITIS, UNSPECIFIED Comment : - LLQ pain - CT shows findings consistent with early colitis - Continue ceftriaxone, Flagyl (2) Constipation Code(s): K59.00 - CONSTIPATION, UNSPECIFIED Comment: - Chronic, but patient reports no BM x7 days - Continue milk of mag, senna (3) Weakness Code(s): R53.1 - WEAKNESS Comment: - Unclear etiology, though possibly r/t colitis; may also just be deconditioning - PT/OT evals pending (4) Diabetes mellitus Code(s): E11.9 - TYPE 2 DIABETES MELLITUS WITHOUT COMPLICATIONS Comment: - Hold glipizide - Continue Lantus, Lispro SS (5) Hypothyroidism Code(s): E03.9 - HYPOTHYROIDISM, UNSPECIFIED Comment: - Low TSH on admission - Continue levothyroxine at decreased dose (250mcg to 200mcg) (6) Atrial fibrillation Code(s): I48.91 - UNSPECIFIED ATRIAL FIBRILLATION Comment: - EKG on admission shows NSR - Continue amiodarone, Eliquis (7) Peripheral arterial disease Code(s): I73.9 - PERIPHERAL VASCULAR DISEASE, UNSPECIFIED Comment: - S/p left femoral artery bypass - Continue pentoxifylline, atorvastatin (8) CAD (coronary artery disease) Code(s): I25.10 - ATHSCL HEART DISEASE OF [place] CORONARY ARTERY W/O ANG PCTRS Comment: - Continue atorvastatin, fenofibrate (9) Chronic pain Code(s): G89.29 - OTHER CHRONIC PAIN Comment: - Continue morphine, oxycodone (10) CKD (chronic kidney disease) Code(s): N18.9 - CHRONIC KIDNEY DISEASE, UNSPECIFIED Comment: - Creatinine at baseline (11) Anemia Code(s): D64.9 - ANEMIA, UNSPECIFIED Comment: - Chronic, Hgb at baseline - Continue ferrous sulfate (12) DVT prophylaxis Comment: - Eliquis (13) Full code status Code(s): Z78.9 - OTHER SPECIFIED HEALTH STATUS Comment: Status and Disposition: Inpatient. Anticipate d/c home when medically stable. Attending: Kev Sethi
[2018-12-21] MEDS: Atorvastatin* 80 MG TAB PO SCH (16:56)
[2018-12-21] MEDS: Finasteride TAB* 5 MG PO SCH (16:57)
[2018-12-21] MEDS: cefTRIAXone(*) 1 GM in NS 0.9% 50 ML* 50 ML IVPB SCH (21:53)
[2018-12-22] MEDS: metroNIDAZOLE IV 500 MG/100ML* 500 MG/100 ML BAG IVPB SCH ×3 (02:27→16:36)
[2018-12-22] MEDS: Levothyroxine TAB* 100 MCG TAB PO SCH (05:31)
[2018-12-22 06:34] LABS: ABS Eosinophils 0.2 10^3/ul (0-0.6); ABS Monocytes 0.5 10^3/ul (0-0.8); ABS Neutrophils 4.2 10^3/ul (1.5-7.7); Eosinophil % 3.5 %; Hematocrit 34 % (42-52); Hemoglobin 11.3 g/dL (14.0-18.0); Lymphocyte % 16.4 %; Mean Corpuscular HGB Conc 33 g/dL (31-36); Mean Corpuscular Hemoglobin 29 pg (27-31); Mean Corpuscular Volume 86 fL (80-94); Platelet Count 215 10^3/uL (150-450); Red Blood Count 3.96 10^6 /uL (4.18-5.48); Red Cell Distribution Width 15 % (10-15)
[2018-12-22] MEDS: Insulin LISPRO* 1 UNITS UNIT SUBCUT SCH ×4 (07:41→16:36)
[2018-12-22] MEDS: Sucralfate TAB* 1 GM PO SCH ×5 (07:44→22:38)
[2018-12-22] MEDS: Pentoxifylline CR TAB* 400 MG PO SCH ×4 (07:44→16:36)
[2018-12-22] MEDS: Gabapentin CAP(*) 300 MG PO SCH ×3 (09:46→22:38)
[2018-12-22] MEDS: CMCS:Fenofibrate(NF) 145 MG TAB PO SCH (09:46)
[2018-12-22] MEDS: Apixaban* 5 MG TAB PO SCH ×2 (09:47→22:48)
[2018-12-22] MEDS: Furosemide TAB* 20 MG PO SCH (09:47)
[2018-12-22] MEDS: Pantoprazole TAB * 40 MG TAB PO SCH ×2 (09:47→22:37)
[2018-12-22] MEDS: Amiodarone TAB* 200 MG PO SCH ×2 (09:47→22:38)
[2018-12-22] MEDS: Ferrous Sulfate TAB* 325 MG PO SCH (09:48)
[2018-12-22] MEDS: Morphine TAB Extended Release (*) 30 MG TAB.ER PO SCH ×2 (09:48→22:37)
[2018-12-22] MEDS: Insulin GLARGINE(*) 1 UNITS UNIT SUBCUT SCH (09:48)
[2018-12-22] MEDS: CMCS:Cyclosporine 0.05% OPHTH (NF) 0.4 ML VIAL BOTH EYES SCH ×2 (09:52→22:43)
--- NOTE | 2018-12-22 10:26 | PN ---
Subjective Date of Service: 12/22/18 Interval History: Mr. Bryant is feeling better this morning. Abdominal pain has improved, but still present. Has been eating without difficult. Denies N/V/D. Had a BM last night and had some relief at that time. Denies CP or SOB. Agreeable to [facility], but thinks he still may be able to go home. No concerns from nursing. Family History: Unchanged from Admission Social History: Unchanged from Admission Past Medical History: Unchanged from Admission Objective Active Medications: Acetaminophen (Tylenol Tab*) 975 mg PO Q8H PRN Pain - Mild to Moderate Albuterol/Ipratropium (Duoneb (Albuterol 2.5 Mg/Ipratropium 0.5 Mg)) 1 neb INH QID PRN; Protocol SHORTNESS OF BREATH Amiodarone HCl (Cordarone Tab*) 200 mg PO BID MARK Apixaban (Eliquis*) 5 mg PO BID MARK Atorvastatin Calcium (Lipitor*) 80 mg PO QPM MARK Cyclosporine (Restasis 0.05% Oph) 1 drop BOTH EYES BID MARK; Protocol Dextrose (Dextrose 50% Vial 50 Ml*) 25 ml IV PUSH .FOR FS < 60 - SS PRN FS < 60 Fenofibrate (Tricor(Nf)) 145 mg PO QAM MARK; Protocol Ferrous Sulfate (Ferrous Sulfate Tab*) 325 mg PO DAILY MARK Finasteride (Proscar Tab*) 5 mg PO QPM MARK Furosemide (Lasix Tab*) 20 mg PO DAILY MARK Gabapentin (Neurontin Cap(*)) 600 mg PO TID MARK Metronidazole/Sodium Chloride (Flagyl 500 Mg Ivpb*) 500 mg in 100 mls @ 100 mls /hr IVPB Q8H MARK Ceftriaxone Sodium 1 gm/ (Sodium Chloride) 50 mls @ 100 mls/hr IVPB Q24HR@2100 MARK Insulin Glargine (Lantus(*)) 22 units SUBCUT DAILY MARK Insulin Human Lispro (Humalog*) 0 units SUBCUT AC MARK; Protocol Levothyroxine Sodium (Synthroid Tab*) 200 mcg PO DAILY@0600 MARK Lorazepam (Ativan Tab(*)) 1 mg PO TID PRN ANXIETY Magnesium Hydroxide (Milk Of Magnesia Liq*) 30 ml PO Q4H PRN CONSTIPATION Morphine Sulfate (Ms Contin(*)) 30 mg PO BID MARK Oxycodone HCl (Roxycodone Tab*) 15 mg PO Q6H PRN PAIN - SEVERE Pantoprazole Sodium (Protonix Tab*) 40 mg PO BID MARK Pentoxifylline (Trental Cr Tab*) 400 mg PO TID WITH MEALS MARK Senna (Senokot 8.6 Mg Tab*) 1 tab PO BID PRN CONSTIPATION Sucralfate (Carafate*) 1 gm PO ACHS MARK Vital Signs - 8 hr 12/22/18 12/22/18 12/22/18 07:15 09:46 09:48 Temperature 97.5 F Pulse Rate 53 Respiratory 19 19 16 Rate Blood Pressure 106/42 (mmHg) O2 Sat by Pulse 95 Oximetry Oxygen Devices in Use Now: None Appearance: Elderly male sitting in bed in NAD Eyes: No Scleral Icterus Ears/Nose/Mouth/Throat: Mucous Membranes Moist Neck: NL Appearance and Movements; NL JVP, Trachea Midline Respiratory: Symmetrical Chest Expansion and Respiratory Effort, Clear to Auscultation Cardiovascular: NL Sounds; No Murmurs; No JVD, RRR Abdominal: - - Mild tenderness to LLQ, normoactive BS Extremities: No Edema Neurological: Alert and Oriented x 3 Lines/Tubes/Other Access: Clean, Dry and Intact Peripheral IV Nutrition: Taking PO's Result Diagrams: 12/22/18 05:27 12/21/18 09:27 Assess/Plan/Problems-Billing Assessment: Mr. Bryant is a 78 yo M with PMH of DM2, chronic constipation r/t opioid use, afib, COPD, CAD, and GERD; who presented to the ED with c/o constipation and recent falls and was found to have colitis. - Patient Problems (1) Colitis Code(s): K52.9 - NONINFECTIVE GASTROENTERITIS AND COLITIS, UNSPECIFIED Comment : - LLQ pain improving - CT shows findings consistent with early colitis - Continue ceftriaxone, Flagyl (2) Constipation Code(s): K59.00 - CONSTIPATION, UNSPECIFIED Comment: - Resolved, BM 12/21/18 - Chronic, but patient reports no BM x7 days prior to admission - Continue milk of mag, senna PRN (3) Weakness Code(s): R53.1 - WEAKNESS Comment: - Unclear etiology, though possibly r/t colitis; may also just be deconditioning - PT/OT recommends rehab (4) Diabetes mellitus Code(s): E11.9 - TYPE 2 DIABETES MELLITUS WITHOUT COMPLICATIONS Comment: - Continue Lantus, Lispro SS; resume glipizide (5) Hypothyroidism Code(s): E03.9 - HYPOTHYROIDISM, UNSPECIFIED Comment: - Low TSH on admission - Continue levothyroxine at decreased dose (250mcg to 200mcg) (6) Atrial fibrillation Code(s): I48.91 - UNSPECIFIED ATRIAL FIBRILLATION Comment: - EKG on admission shows NSR - Continue amiodarone, Eliquis (7) Peripheral arterial disease Code(s): I73.9 - PERIPHERAL VASCULAR DISEASE, UNSPECIFIED Comment: - S/p left femoral artery bypass - Continue pentoxifylline, atorvastatin (8) CAD (coronary artery disease) Code(s): I25.10 - ATHSCL HEART DISEASE OF [place] CORONARY ARTERY W/O ANG PCTRS Comment: - Continue atorvastatin, fenofibrate (9) Chronic pain Code(s): G89.29 - OTHER CHRONIC PAIN Comment: - Continue morphine, oxycodone (10) CKD (chronic kidney disease) Code(s): N18.9 - CHRONIC KIDNEY DISEASE, UNSPECIFIED Comment: - Creatinine at baseline (11) Anemia Code(s): D64.9 - ANEMIA, UNSPECIFIED Comment: - Chronic, Hgb at baseline - Continue ferrous sulfate (12) DVT prophylaxis Comment: - Eliquis (13) Full code status Code(s): Z78.9 - OTHER SPECIFIED HEALTH STATUS Comment: Status and Disposition: Inpatient. Likely d/c to [facility] on Tuesday. Attending: Alisa Gayle
[2018-12-22] MEDS: Finasteride TAB* 5 MG PO SCH (16:36)
[2018-12-22] MEDS: Atorvastatin* 80 MG TAB PO SCH (16:36)
[2018-12-22] MEDS: glipiZIDE TAB.XL* 5 MG PO SCH (22:37)
[2018-12-22] MEDS: cefTRIAXone(*) 1 GM in NS 0.9% 50 ML* 50 ML IVPB SCH (22:47)
[2018-12-23] MEDS: metroNIDAZOLE IV 500 MG/100ML* 500 MG/100 ML BAG IVPB SCH ×3 (02:22→17:42)
[2018-12-23] MEDS: Levothyroxine TAB* 100 MCG TAB PO SCH (05:37)
[2018-12-23] MEDS: Insulin LISPRO* 1 UNITS UNIT SUBCUT SCH ×3 (08:47→17:42)
[2018-12-23] MEDS: Morphine TAB Extended Release (*) 30 MG TAB.ER PO SCH ×2 (08:48→22:22)
[2018-12-23] MEDS: Pantoprazole TAB * 40 MG TAB PO SCH ×2 (08:48→22:22)
[2018-12-23] MEDS: Amiodarone TAB* 200 MG PO SCH ×2 (08:48→22:21)
[2018-12-23] MEDS: Insulin GLARGINE(*) 1 UNITS UNIT SUBCUT SCH (08:48)
[2018-12-23] MEDS: Apixaban* 5 MG TAB PO SCH ×2 (08:48→22:21)
[2018-12-23] MEDS: CMCS:Fenofibrate(NF) 145 MG TAB PO SCH (08:49)
[2018-12-23] MEDS: Furosemide TAB* 20 MG PO SCH (08:49)
[2018-12-23] MEDS: Sucralfate TAB* 1 GM PO SCH ×4 (08:49→22:22)
[2018-12-23] MEDS: Gabapentin CAP(*) 300 MG PO SCH ×3 (08:49→22:21)
[2018-12-23] MEDS: Pentoxifylline CR TAB* 400 MG PO SCH ×3 (08:49→17:42)
[2018-12-23] MEDS: glipiZIDE TAB.XL* 5 MG PO SCH ×2 (08:49→22:21)
[2018-12-23] MEDS: Ferrous Sulfate TAB* 325 MG PO SCH (08:49)
[2018-12-23] MEDS: CMCS:Cyclosporine 0.05% OPHTH (NF) 0.4 ML VIAL BOTH EYES SCH ×3 (08:50→22:29)
--- NOTE | 2018-12-23 11:30 | PN ---
Subjective Date of Service: 12/23/18 Interval History: Mr. Bryant is feeling slightly better today. He is still having some mild LLQ pain and it is distressing to him that this is not completely resolved, though it has been steadily improving over the last 2 days. Had a coughing episode last night, but this is normal for him. Denies CP, SOB, N/V. Good appetite. No concerns from nursing. Family History: Unchanged from Admission Social History: Unchanged from Admission Past Medical History: Unchanged from Admission Objective Active Medications: Acetaminophen (Tylenol Tab*) 975 mg PO Q8H PRN Pain - Mild to Moderate Albuterol/Ipratropium (Duoneb (Albuterol 2.5 Mg/Ipratropium 0.5 Mg)) 1 neb INH QID PRN; Protocol SHORTNESS OF BREATH Amiodarone HCl (Cordarone Tab*) 200 mg PO BID MARK Apixaban (Eliquis*) 5 mg PO BID MARK Atorvastatin Calcium (Lipitor*) 80 mg PO QPM MARK Cyclosporine (Restasis 0.05% Oph) 1 drop BOTH EYES BID MARK; Protocol Dextrose (Dextrose 50% Vial 50 Ml*) 25 ml IV PUSH .FOR FS < 60 - SS PRN FS < 60 Fenofibrate (Tricor(Nf)) 145 mg PO QAM MARK; Protocol Ferrous Sulfate (Ferrous Sulfate Tab*) 325 mg PO DAILY MARK Finasteride (Proscar Tab*) 5 mg PO QPM MARK Furosemide (Lasix Tab*) 20 mg PO DAILY MARK Gabapentin (Neurontin Cap(*)) 600 mg PO TID MARK Glipizide (Glucotrol Xl*) 5 mg PO BID MARK Metronidazole/Sodium Chloride (Flagyl 500 Mg Ivpb*) 500 mg in 100 mls @ 100 mls /hr IVPB Q8H MARK Ceftriaxone Sodium 1 gm/ (Sodium Chloride) 50 mls @ 100 mls/hr IVPB Q24HR@2100 MARK Insulin Glargine (Lantus(*)) 22 units SUBCUT DAILY MARK Insulin Human Lispro (Humalog*) 0 units SUBCUT AC MARK; Protocol Levothyroxine Sodium (Synthroid Tab*) 200 mcg PO DAILY@0600 MARK Lorazepam (Ativan Tab(*)) 1 mg PO TID PRN ANXIETY Magnesium Hydroxide (Milk Of Magnesia Liq*) 30 ml PO Q4H PRN CONSTIPATION Morphine Sulfate (Ms Contin(*)) 30 mg PO BID MARK Oxycodone HCl (Roxycodone Tab*) 15 mg PO Q6H PRN PAIN - SEVERE Pantoprazole Sodium (Protonix Tab*) 40 mg PO BID MARK Pentoxifylline (Trental Cr Tab*) 400 mg PO TID WITH MEALS MARK Senna (Senokot 8.6 Mg Tab*) 1 tab PO BID PRN CONSTIPATION Sucralfate (Carafate*) 1 gm PO ACHS [facility] Vital Signs - 8 hr 12/23/18 12/23/18 12/23/18 03:42 04:20 08:48 Temperature 97.1 F Pulse Rate 51 52 Respiratory 19 15 18 Rate Blood Pressure 123/51 (mmHg) O2 Sat by Pulse 96 94 Oximetry Oxygen Devices in Use Now: None Appearance: Elderly male sitting in bed in NAD Eyes: No Scleral Icterus Ears/Nose/Mouth/Throat: Mucous Membranes Moist Neck: NL Appearance and Movements; NL JVP, Trachea Midline Respiratory: Symmetrical Chest Expansion and Respiratory Effort, Clear to Auscultation Cardiovascular: NL Sounds; No Murmurs; No JVD Abdominal: - - Normoactive BS, LLQ slightly tender Neurological: Alert and Oriented x 3 Lines/Tubes/Other Access: Clean, Dry and Intact Peripheral IV Nutrition: Taking PO's Result Diagrams: 12/22/18 05:27 12/21/18 09:27 Assess/Plan/Problems-Billing Assessment: Mr. Bryant is a 78 yo M with PMH of DM2, chronic constipation r/t opioid use, afib, COPD, CAD, and GERD; who presented to the ED with c/o constipation and recent falls and was found to have colitis. - Patient Problems (1) Colitis Code(s): K52.9 - NONINFECTIVE GASTROENTERITIS AND COLITIS, UNSPECIFIED Comment : - LLQ pain improving - CT shows findings consistent with early colitis, likely infectious as it is improving with abx - Continue ceftriaxone, Flagyl (2) Constipation Code(s): K59.00 - CONSTIPATION, UNSPECIFIED Comment: - Acutely resolved, though this is a crhonic issue - Continue milk of mag, senna PRN (3) Weakness Code(s): R53.1 - WEAKNESS Comment: - Unclear etiology, though possibly r/t colitis; may also just be deconditioning - PT/OT recommends rehab (4) Diabetes mellitus Code(s): E11.9 - TYPE 2 DIABETES MELLITUS WITHOUT COMPLICATIONS Comment: - Continue Lantus, Lispro SS, glipizide (5) Hypothyroidism Code(s): E03.9 - HYPOTHYROIDISM, UNSPECIFIED Comment: - Low TSH on admission - Continue levothyroxine at decreased dose (250mcg to 200mcg) (6) Atrial fibrillation Code(s): I48.91 - UNSPECIFIED ATRIAL FIBRILLATION Comment: - EKG on admission shows NSR - Continue amiodarone, Eliquis (7) Peripheral arterial disease Code(s): I73.9 - PERIPHERAL VASCULAR DISEASE, UNSPECIFIED Comment: - S/p left femoral artery bypass - Continue pentoxifylline, atorvastatin (8) CAD (coronary artery disease) Code(s): I25.10 - ATHSCL HEART DISEASE OF [place] CORONARY ARTERY W/O ANG PCTRS Comment: - Continue atorvastatin, fenofibrate (9) Chronic pain Code(s): G89.29 - OTHER CHRONIC PAIN Comment: - Continue morphine, oxycodone (10) CKD (chronic kidney disease) Code(s): N18.9 - CHRONIC KIDNEY DISEASE, UNSPECIFIED Comment: - Creatinine at baseline (11) Anemia Code(s): D64.9 - ANEMIA, UNSPECIFIED Comment: - Chronic, Hgb at baseline - Continue ferrous sulfate (12) DVT prophylaxis Comment: - Eliquis (13) Full code status Code(s): Z78.9 - OTHER SPECIFIED HEALTH STATUS Comment: Status and Disposition: Inpatient. Likely d/c to [facility] on Tuesday. Attending: Alisa Gayle
[2018-12-23] MEDS: Finasteride TAB* 5 MG PO SCH (17:42)
[2018-12-23] MEDS: Atorvastatin* 80 MG TAB PO SCH (17:42)
[2018-12-23] MEDS: cefTRIAXone(*) 1 GM in NS 0.9% 50 ML* 50 ML IVPB SCH (22:20)
[2018-12-24] MEDS: oxyCODONE TAB* 5 MG TAB PO PRN (00:23)
[2018-12-24] MEDS: metroNIDAZOLE IV 500 MG/100ML* 500 MG/100 ML BAG IVPB SCH ×3 (02:36→17:48)
[2018-12-24] MEDS ORDERED: Simethicone TAB* 80 MG TAB.CHEW PO ONE (03:59)
[2018-12-24] MEDS: Levothyroxine TAB* 100 MCG TAB PO SCH (04:37)
[2018-12-24] MEDS: Insulin LISPRO* 1 UNITS UNIT SUBCUT SCH ×3 (08:08→17:48)
[2018-12-24] MEDS: glipiZIDE TAB.XL* 5 MG PO SCH ×2 (08:22→21:52)
[2018-12-24] MEDS: Ferrous Sulfate TAB* 325 MG PO SCH (08:22)
[2018-12-24] MEDS: Apixaban* 5 MG TAB PO SCH ×2 (08:22→21:52)
[2018-12-24] MEDS: Morphine TAB Extended Release (*) 30 MG TAB.ER PO SCH ×2 (08:22→21:51)
[2018-12-24] MEDS: Sucralfate TAB* 1 GM PO SCH ×4 (08:22→21:53)
[2018-12-24] MEDS: Amiodarone TAB* 200 MG PO SCH ×2 (08:22→21:51)
[2018-12-24] MEDS: Pentoxifylline CR TAB* 400 MG PO SCH ×3 (08:22→17:48)
[2018-12-24] MEDS: Gabapentin CAP(*) 300 MG PO SCH ×3 (08:22→21:53)
[2018-12-24] MEDS: Furosemide TAB* 20 MG PO SCH (08:22)
[2018-12-24] MEDS: Pantoprazole TAB * 40 MG TAB PO SCH ×2 (08:22→21:52)
[2018-12-24] MEDS: Insulin GLARGINE(*) 1 UNITS UNIT SUBCUT SCH (08:23)
[2018-12-24] MEDS: CMCS:Cyclosporine 0.05% OPHTH (NF) 0.4 ML VIAL BOTH EYES SCH ×2 (08:23→22:01)
[2018-12-24] MEDS: CMCS:Fenofibrate(NF) 145 MG TAB PO SCH (08:23)
--- NOTE | 2018-12-24 12:29 | PN ---
Subjective Date of Service: 12/24/18 Interval History: Patient seen and examined. No complaints of abdominal pain today. Denies n/v/d. States he had gas pains yesterday, but improved today. No fevers or chills. Wants to go home with VNS and PT as opposed to rehab. Family History: Unchanged from Admission Social History: Unchanged from Admission Past Medical History: Unchanged from Admission Objective Active Medications: Acetaminophen (Tylenol Tab*) 975 mg PO Q8H PRN PRN Reason: Pain - Mild to Moderate Albuterol/Ipratropium (Duoneb (Albuterol 2.5 Mg/Ipratropium 0.5 Mg)) 1 neb INH QID PRN; Protocol PRN Reason: SHORTNESS OF BREATH Last Admin: 12/23/18 04:11 Dose: 1 neb Amiodarone HCl (Cordarone Tab*) 200 mg PO BID [facility] Last Admin: 12/24/18 08:22 Dose: 200 mg Apixaban (Eliquis*) 5 mg PO BID [facility] Last Admin: 12/24/18 08:22 Dose: 5 mg Atorvastatin Calcium (Lipitor*) 80 mg PO QPM [facility] Last Admin: 12/23/18 17:42 Dose: 80 mg Cyclosporine (Restasis 0.05% Oph) 1 drop BOTH EYES BID [facility]; Protocol Last Admin: 12/24/18 08:23 Dose: Not Given Dextrose (Dextrose 50% Vial 50 Ml*) 25 ml IV PUSH .FOR FS < 60 - SS PRN PRN Reason: FS < 60 Fenofibrate (Tricor(Nf)) 145 mg PO QAM [facility]; Protocol Last Admin: 12/24/18 08:23 Dose: 145 mg Ferrous Sulfate (Ferrous Sulfate Tab*) 325 mg PO DAILY [facility] Last Admin: 12/24/18 08:22 Dose: 325 mg Finasteride (Proscar Tab*) 5 mg PO QPM [facility] Last Admin: 12/23/18 17:42 Dose: 5 mg Furosemide (Lasix Tab*) 20 mg PO DAILY [facility] Last Admin: 12/24/18 08:22 Dose: 20 mg Gabapentin (Neurontin Cap(*)) 600 mg PO TID [facility] Last Admin: 12/24/18 08:22 Dose: 600 mg Glipizide (Glucotrol Xl*) 5 mg PO BID [facility] Last Admin: 12/24/18 08:22 Dose: 5 mg Metronidazole/Sodium Chloride (Flagyl 500 Mg Ivpb*) 500 mg in 100 mls @ 100 mls /hr IVPB Q8H [facility] Last Admin: 12/24/18 10:39 Dose: 100 mls/hr Ceftriaxone Sodium 1 gm/ (Sodium Chloride) 50 mls @ 100 mls/hr IVPB Q24HR@2100 [facility] Last Admin: 12/23/18 22:20 Dose: 100 mls/hr Insulin Glargine (Lantus(*)) 22 units SUBCUT DAILY [facility] Last Admin: 12/24/18 08:23 Dose: 22 units Insulin Human Lispro (Humalog*) 0 units SUBCUT AC [facility]; Protocol Last Admin: 12/24/18 08:08 Dose: Not Given Levothyroxine Sodium (Synthroid Tab*) 200 mcg PO DAILY@0600 [facility] Last Admin: 12/24/18 04:37 Dose: 200 mcg Lorazepam (Ativan Tab(*)) 1 mg PO TID PRN PRN Reason: ANXIETY Magnesium Hydroxide (Milk Of Magnjoss Liq*) 30 ml PO Q4H PRN PRN Reason: CONSTIPATION Last Admin: 12/21/18 12:34 Dose: 30 ml Morphine Sulfate (Ms Contin(*)) 30 mg PO BID [facility] Last Admin: 12/24/18 08:22 Dose: 30 mg Oxycodone HCl (Roxycodone Tab*) 15 mg PO Q6H PRN PRN Reason: PAIN - SEVERE Last Admin: 12/24/18 00:23 Dose: 15 mg Pantoprazole Sodium (Protonix Tab*) 40 mg PO BID [facility] Last Admin: 12/24/18 08:22 Dose: 40 mg Pentoxifylline (Trental Cr Tab*) 400 mg PO TID WITH MEALS [facility] Last Admin: 12/24/18 08:22 Dose: 400 mg Senna (Senokot 8.6 Mg Tab*) 1 tab PO BID PRN PRN Reason: CONSTIPATION Sucralfate (Carafate*) 1 gm PO ACHS [facility] Last Admin: 12/24/18 08:22 Dose: 1 gm Vital Signs - 8 hr 12/24/18 12/24/18 12/24/18 07:15 08:00 08:22 Temperature 97.8 F Pulse Rate 51 Respiratory 18 18 18 Rate Blood Pressure 130/54 (mmHg) O2 Sat by Pulse 96 Oximetry 12/24/18 10:36 Temperature Pulse Rate Respiratory 18 Rate Blood Pressure (mmHg) O2 Sat by Pulse Oximetry Oxygen Devices in Use Now: None Appearance: alert, NAD Eyes: PERRLA Ears/Nose/Mouth/Throat: Mucous Membranes Moist Neck: NL Appearance and Movements; NL JVP, Trachea Midline Respiratory: Symmetrical Chest Expansion and Respiratory Effort, Clear to Auscultation Cardiovascular: NL Sounds; No Murmurs; No JVD, RRR Abdominal: NL Sounds; No Tenderness; No Distention Extremities: No Edema, - - discolored lower extremities bilaterally Skin: No Rash or Ulcers Neurological: Alert and Oriented x 3 Nutrition: Taking PO's Result Diagrams: 12/22/18 05:27 12/21/18 09:27 Additional Lab and Data: Lab Results 12/20/18 12/20/18 Range/Units 21:21 21:21 WBC 10.4 (3.5-10.8) 10^3/uL RBC 4.99 (4.18-5.48) 10^6 /uL Hgb 14.4 (14.0-18.0) g/dL Hct 44 (42-52) % MCV 87 (80-94) fL MCH 29 (27-31) pg MCHC 33 (31-36) g/dL RDW 15 (10-15) % Plt Count 247 (150-450) 10^3/uL MPV 7.0 L (7.4-10.4) fL Neut % (Auto) 83.1 % Lymph % (Auto) 6.8 % Cameron % (Auto) 9.0 % Eos % (Auto) 0.6 % Baso % (Auto) 0.5 % Absolute Neuts (auto) 8.6 H (1.5-7.7) 10^3/ul Absolute Lymphs (auto) 0.7 L (1.0-4.8) 10^3/ul Absolute Monos (auto) 0.9 H (0-0.8) 10^3/ul Absolute Eos (auto) 0.1 (0-0.6) 10^3/ul Absolute Basos (auto) 0.1 (0-0.2) 10^3/ul Absolute Nucleated RBC 0.0 10^3/ul Nucleated RBC % 0.0 Sodium 136 (135-145) mmol/L Potassium 4.3 (3.5-5.0) mmol/L Chloride 107 (101-111) mmol/L Carbon Dioxide 21 L (22-32) mmol/L Anion Gap 8 (2-11) mmol/L BUN 19 (6-24) mg/dL Creatinine 1.32 H (0.67-1.17) mg/dL Est GFR ( Amer) 63.6 (>60) Est GFR (Non-Af Amer) 52.6 (>60) BUN/Creatinine Ratio 14.4 (8-20) Glucose 177 H (70-100) mg/dL Calcium 8.0 L (8.6-10.3) mg/dL Total Bilirubin 0.60 (0.2-1.0) mg/dL AST 12 L (13-39) U/L ALT 13 (7-52) U/L Alkaline Phosphatase 50 (34-104) U/L Troponin I 0.00 (<0.04) ng/mL C-Reactive Protein 112.15 H (<8.01) mg/L C-React Prot High Sens Cancelled Total Protein 6.8 (6.4-8.9) g/dL Albumin 3.9 (3.2-5.2) g/dL Globulin 2.9 (2-4) g/dL Albumin/Globulin Ratio 1.3 (1-3) Lipase < 10 L (11.0-82.0) U/L Assess/Plan/Problems-Billing Assessment: Mr. Bryant is a 78 yo M with PMH of DM2, chronic constipation r/t opioid use, afib, COPD, CAD, and GERD; who presented to the ED with c/o constipation and recent falls and was found to have colitis. - Patient Problems (1) Colitis Code(s): K52.9 - NONINFECTIVE GASTROENTERITIS AND COLITIS, UNSPECIFIED SNOMED Code(s): 43323728 Comment: - LLQ pain improving/resolving - CT shows findings consistent with early colitis, likely infectious as it is improving with abx - Continue ceftriaxone, Flagyl (2) Debility Code(s): R53.81 - OTHER MALAISE SNOMED Code(s): 45470030 Comment: - Initially weak, but now improved with PT. Likely home with VNS tomorrow - Continue PT/OT through weekend. (3) Constipation Code(s): K59.00 - CONSTIPATION, UNSPECIFIED SNOMED Code(s): 24883780 Comment: - Acutely resolved, though this is a crhonic issue, may be 2/2 opioid use - Continue milk of mag, senna PRN (4) Anemia Code(s): D64.9 - ANEMIA, UNSPECIFIED SNOMED Code(s): 601926822 Comment: - Chronic, Hgb at baseline - Continue ferrous sulfate (5) Hypothyroidism Code(s): E03.9 - HYPOTHYROIDISM, UNSPECIFIED SNOMED Code(s): 10948279 Comment: - Low TSH on admission - Continue levothyroxine at decreased dose (250mcg to 200mcg) (6) COPD (chronic obstructive pulmonary disease) Code(s): J44.9 - CHRONIC OBSTRUCTIVE PULMONARY DISEASE, UNSPECIFIED SNOMED Code(s): 05710691 Comment: - Continue home prn combivent, not in exacerbation (7) Chronic wound of extremity Code(s): APJ4349 - SNOMED Code(s): 781212904 Comment: - Continue heel protector on right (8) Atrial fibrillation Code(s): I48.91 - UNSPECIFIED ATRIAL FIBRILLATION SNOMED Code(s): 31214596 Comment: - EKG on admission shows NSR - Continue amiodarone, Eliquis (9) BPH (benign prostatic hyperplasia) Code(s): N40.0 - BENIGN PROSTATIC HYPERPLASIA WITHOUT LOWER URINRY TRACT SYMP SNOMED Code(s): 192306662 Comment: - Continue finasteride (10) Barretts esophagus Code(s): K22.70 - ESPINOZA'S ESOPHAGUS WITHOUT DYSPLASIA SNOMED Code(s): 179536927 Comment: - Protonix BID (11) CAD (coronary artery disease) Code(s): I25.10 - ATHSCL HEART DISEASE OF [place] CORONARY ARTERY W/O ANG PCTRS SNOMED Code(s): 44392716 Comment: - Continue atorvastatin, fenofibrate (12) CKD (chronic kidney disease) Code(s): N18.9 - CHRONIC KIDNEY DISEASE, UNSPECIFIED SNOMED Code(s): 529567298 Comment: - Creatinine at baseline (13) Chronic pain Code(s): G89.29 - OTHER CHRONIC PAIN SNOMED Code(s): 95521471 Comment: - Continue morphine, oxycodone (14) Diabetes mellitus Code(s): E11.9 - TYPE 2 DIABETES MELLITUS WITHOUT COMPLICATIONS SNOMED Code(s) : 98216318 Comment: - Continue Lantus, Lispro SS, glipizide (15) DVT prophylaxis Code(s): BTW7079 - SNOMED Code(s): 088795542 Comment: - Elirobin (16) Full code status Code(s): Z78.9 - OTHER SPECIFIED HEALTH STATUS SNOMED Code(s): 269383725 Comment: Status and Disposition: Inpatient. Likely d/c to [facility] on Tuesday.
[2018-12-24] MEDS: Atorvastatin* 80 MG TAB PO SCH (17:48)
[2018-12-24] MEDS: Finasteride TAB* 5 MG PO SCH (17:48)
[2018-12-24] MEDS: cefTRIAXone(*) 1 GM in NS 0.9% 50 ML* 50 ML IVPB SCH (22:01)
[2018-12-25] MEDS: metroNIDAZOLE IV 500 MG/100ML* 500 MG/100 ML BAG IVPB SCH ×2 (02:55→10:44)
[2018-12-25] MEDS: Levothyroxine TAB* 100 MCG TAB PO SCH (06:51)
[2018-12-25] MEDS: Insulin LISPRO* 1 UNITS UNIT SUBCUT SCH ×2 (08:49→12:00)
[2018-12-25] MEDS: Insulin GLARGINE(*) 1 UNITS UNIT SUBCUT SCH (08:49)
[2018-12-25] MEDS: glipiZIDE TAB.XL* 5 MG PO SCH (08:50)
[2018-12-25] MEDS: Gabapentin CAP(*) 300 MG PO SCH ×2 (08:50→14:31)
[2018-12-25] MEDS: Morphine TAB Extended Release (*) 30 MG TAB.ER PO SCH (08:50)
[2018-12-25] MEDS: Ferrous Sulfate TAB* 325 MG PO SCH (08:51)
[2018-12-25] MEDS: Pantoprazole TAB * 40 MG TAB PO SCH (08:51)
[2018-12-25] MEDS: Furosemide TAB* 20 MG PO SCH (08:51)
[2018-12-25] MEDS: Amiodarone TAB* 200 MG PO SCH (08:51)
[2018-12-25] MEDS: Apixaban* 5 MG TAB PO SCH (08:51)
[2018-12-25] MEDS: CMCS:Fenofibrate(NF) 145 MG TAB PO SCH (08:53)
[2018-12-25] MEDS: CMCS:Cyclosporine 0.05% OPHTH (NF) 0.4 ML VIAL BOTH EYES SCH (08:54)
[2018-12-25] MEDS: Pentoxifylline CR TAB* 400 MG PO SCH ×2 (08:54→12:01)
[2018-12-25] MEDS: Sucralfate TAB* 1 GM PO SCH ×2 (08:57→12:01)
[2018-12-25 11:29] VITALS: BP 129/61
--- NOTE | 2018-12-26 00:33 | DS ---
CC: Dr. Jamie Cha * DISCHARGE SUMMARY: DATE OF ADMISSION: 12/21/18 DATE OF DISCHARGE: 12/25/18 PRIMARY CARE PROVIDER: Dr. Jamie Cha. MY ATTENDING FOR TODAY: Dr. Lorene Winters.* (DICTATED BY DEEPTHI YOO NP) HOSPITAL COURSE: Please refer to the admitting H and P on 12/21/18. In short, Mr. Bryant is a 78-year-old male with a complex medical history including diabetes, diabetic neuropathy, chronic lower extremity wounds, tremor, hypothyroidism, chronic constipation, chronic opioid use, coronary artery disease, anxiety, and paroxysmal atrial fibrillation, on chronic anticoagulation , who presents to the emergency department with complaints of constipation, falls, and weakness. The patient states he was experiencing some left lower quadrant pain and then began feeling weak and having falls. It should be noted the patient is on chronic opioids, which was likely contributing to his constipation and also he has some general deconditioning, which normally he can walk with his walker; however, he was beyond his baseline and was not being able to get up off the floor. This progressed over the last 7 days. He came into the emergency department for evaluation. CT scan of the abdomen showed some distention in the descending colon with what appeared to be an early developing colitis. He did not have a fever. He did not have a white count. He did have a mildly elevated CRP and for these reasons, he was admitted to medical service. He was placed on ceftriaxone and Flagyl empirically. His constipation did resolve. The patient was having normal bowel movements. He was continued on all of his home medications for his comorbid conditions. He did respond well to his Cipro and Flagyl. His abdominal pain subsided and then he was seen by Physical Therapy and Occupational Therapy. Initially, his evaluations by PT and OT recommended short-term rehab; however, as he progressed over the last couple of days with his antibiotic therapy, he did become stronger and was ambulating at his baseline with his walker unassisted. On morning of 12/25/18, the patient was ambulating with his walker down the length of the knox very steady on his feet with no complaints. He denied any pain or any weakness or unsteadiness today. It should also be noted that after his constipation resolved, so did his abdominal pain, he complained today only of some gassiness; however, he did not have any loose stools or any other GI complaints. He also did not note any fevers or any other GI distress. So, today , on 12/25/18, the patient's GI symptoms have completely resolved. His weakness has improved. He is back to his baseline and he now is ready for discharge to home as opposed to rehab. The patient did request VNS services in house for which he is already open; however, he is also requesting some additional physical therapy services in house as well. The patient was medically cleared for discharge today. He will be discharged home in the care of his . He is in stable condition and he is very happy to be going home. REVIEW OF SYSTEMS: Today, the patient denies any fever, fatigue, or chills. No dizziness, no headache, no blurry vision. No chest pain, no shortness of breath. No abdominal pain, no nausea, no vomiting, no diarrhea or constipation. No urinary complaints. He has his baseline chronic pain and neuropathy which is very well controlled and no further constitutional complaints. PHYSICAL EXAMINATION: Today reveals a very well-appearing older gentleman in no acute distress. His vital signs are blood pressure 129/61, heart rate 58, respiratory rate 20, O2 saturation 95% on room air with a temperature of 98.1. HEENT: The patient is atraumatic, normocephalic. PERRLA. Nonicteric sclerae. Oral mucosa is moist. Tongue is midline. Neck is supple, nontender. No JVD noted. No carotid bruits auscultated. Cardiovascular: S1, S2 present. Rate and rhythm are currently regular. He has regular sinus rhythm on telemetry. No murmurs, gallops, or rubs noted. Lungs are clear bilaterally to auscultation with no wheezing, rhonchi or rales. Abdomen is protuberant, somewhat obese. His bowel sounds are hypoactive and positive in all 4 quadrants and it is otherwise nontender and benign. : Deferred. Musculoskeletal: There is no clubbing, no cyanosis, no edema. He does have a chronic wound on the right heel. He has a heel protective boot in place. No further skin breakdown is noted. He has +2 distal pulses palpable. Full range of motion. He has some diminished sensation in lower extremities but otherwise gross motor is intact. He has a steady gait with his walker. Neurologic: Grossly intact with no focal deficits. Psychiatric: He is cooperative and appropriate. DIAGNOSTIC STUDIES/LAB DATA: WBC 6.0, RBC 3.96, hemoglobin 11.3, hematocrit 34 , platelets 215. Sodium 136, potassium 3.9, chloride 109, CO2 20, BUN 17, creatinine 1.22, GFR 57.6, glucose 112, calcium 7.2, magnesium 2.0. Imaging: CT abdomen and pelvis, dated 12/20/18, shows the patient with noted history of esophageal cancer but no surgical changes to the distal esophagus. There is moderate distention of the descending colon stool, mesenteric inflammatory changes next to the descending colon, no colonic wall thickening. No evidence of perforation. No free fluid. No evidence of obstruction. This may represent a developing colitis and osteoporotic spine with multiple compression fractures, which are unchanged since the previous study. Chest x-ray, dated 12/20/18, shows low lung volumes and right basilar atelectasis. DISCHARGE DIAGNOSES: 1. Abdominal pain and constipation. 2. Early colitis, now resolved, likely infectious in nature. 3. Debility. 4. Chronic anemia. 5. History of hypothyroidism. 6. History of chronic obstructive pulmonary disease, stable. 7. History of chronic wounds of the extremities, stable. 8. Paroxysmal atrial fibrillation. 9. History of benign prostatic hyperplasia. 10. History of Batista's esophagus. 11. History of coronary artery disease. 12. History of chronic kidney disease. 13. History of chronic pain at baseline. 14. History of diabetes mellitus. MEDICATIONS FOR DISCHARGE: Include: 1. MiraLAX 17 g p.o. daily. 2. Hydrocortisone cream topical 2 times a day as needed. 3. Afrin nasal spray q.12 hours as needed. 4. Ammonium lactate 12% topical daily as needed. 5. Tylenol 325 mg p.o. q.4 hours as needed. 6. Biotene rinse as needed. 7. OCuSOFT lid scrub plus topically to each eye as needed. 8. Refresh eye gel 1 drop each eye daily as needed. 9. Zofran 4 mg p.o. q.6 hours as needed. 10. Celebrex 200 mg p.o. daily in the morning. 11. Trental 400 mg p.o. 3 times a day. 12. Carafate 1 g p.o. a.c. h.s. 13. Mometasone furoate 0.1% topical daily as needed. 14. 0.1% topical daily as needed. 15. Neurontin 600 mg p.o. t.i.d. 16. Restasis 1 drop both eyes p.o. b.i.d. 17. Testosterone 200 mg IM every 10 days. 18. Nystatin topical as needed. 19. Levothyroxine 250 mcg p.o. daily. 20. Lasix 20 mg p.o. daily. 21. Docusate 200 mg p.o. daily. 22. Morphine extended release 30 mg p.o. b.i.d. 23. Hiprex 1 g tab p.o. b.i.d. 24. Finasteride 5 mg p.o. in the evening. 25. Protonix 40 mg p.o. 2 times a day. 26. Oxycodone 15 mg q.6 hours p.r.n. 27. Fenofibrate 140 mg p.o. daily. 28. Levemir FlexTouch 28 units subcu daily. 29. Cyclobenzaprine 10 mg p.o. in the evening. 30. Amiodarone 200 mg p.o. b.i.d. 31. Glipizide 5 mg p.o. b.i.d. 32. Nitroglycerin 0.4 mg sublingual q.5 minutes as needed. 33. Apixaban 5 mg p.o. b.i.d. 34. Lovaza 1 g p.o. b.i.d. 35. Crestor 40 mg p.o. daily in the evening. 36. Ferrous sulfate 325 mg p.o. daily. 37. Lorazepam 1 mg p.o. 3 times a day as needed. 38. Folic acid 1 mg p.o. in the morning. 39. Combivent Respimat 1 puff inhaled four times a day as needed. 40. Senna 1 tab p.o. 2 times a day as needed. 41. Milk of magnesia 30 mL p.o. q.4 hours as needed for constipation. DISPOSITION: The patient has been discharged to home in stable condition with VNS services in care of his . FOLLOWUP: The patient is instructed to follow up with Dr. Jamie Cha in the next 1 to 2 weeks and [facility] [place] [facility] in the next 48 hours. Again, the patient was discharged in stable condition. All questions were answered. The patient stated his understanding of his discharge instructions. The patient did complete his course of IV antibiotics while hospitalized, he was not sent home on any new medications or any antibiotics. He was told to follow with Dr. Cha. If he does have any further abdominal pain or constipation, which is likely narcotic induced, this should be addressed with his primary care provider. DEEPTHI YOO NP [id number]/[facility] #: [id number] [place]
== END 2018-12-25 16:20 | disposition home health service (06) | DRG 392 ==
LOC: ED 20:55 → MED 12-21 02:44
PROVIDERS: ADMIT Internal Medicine; ATTEND Internal Medicine
DX: A09 Infectious gastroenteritis and colitis, unspecified (principal); M80.88XA Other osteoporosis with current pathological fracture, vertebra(e), initial encounter for fracture; K59.03 Drug induced constipation; T40.2X5A Adverse effect of other opioids, initial encounter; I25.10 Atherosclerotic heart disease of native coronary artery without angina pectoris; E78.00 Pure hypercholesterolemia, unspecified; I10 Essential (primary) hypertension; J44.9 Chronic obstructive pulmonary disease, unspecified; G47.30 Sleep apnea, unspecified; K21.9 Gastro-esophageal reflux disease without esophagitis; K22.70 Barrett's esophagus without dysplasia; E11.42 Type 2 diabetes mellitus with diabetic polyneuropathy; M19.90 Unspecified osteoarthritis, unspecified site; M06.9 Rheumatoid arthritis, unspecified; E03.9 Hypothyroidism, unspecified; G25.0 Essential tremor; N40.0 Benign prostatic hyperplasia without lower urinary tract symptoms; G89.29 Other chronic pain; M54.9 Dorsalgia, unspecified; F41.9 Anxiety disorder, unspecified; E11.51 Type 2 diabetes mellitus with diabetic peripheral angiopathy without gangrene; E11.621 Type 2 diabetes mellitus with foot ulcer; L97.529 Non-pressure chronic ulcer of other part of left foot with unspecified severity; E11.22 Type 2 diabetes mellitus with diabetic chronic kidney disease; N18.9 Chronic kidney disease, unspecified; D50.9 Iron deficiency anemia, unspecified; I48.0 Paroxysmal atrial fibrillation; Z96.642 Presence of left artificial hip joint; F11.90 Opioid use, unspecified, uncomplicated; Z88.1 Allergy status to other antibiotic agents; Z91.018 Allergy to other foods; Z90.49 Acquired absence of other specified parts of digestive tract; Z85.01 Personal history of malignant neoplasm of esophagus; Z95.5 Presence of coronary angioplasty implant and graft; Z83.3 Family history of diabetes mellitus; Z80.0 Family history of malignant neoplasm of digestive organs; Z82.0 Family history of epilepsy and other diseases of the nervous system; Z98.42 Cataract extraction status, left eye; Z98.41 Cataract extraction status, right eye; Z89.422 Acquired absence of other left toe(s); Y92.9 Unspecified place or not applicable; Z79.84 Long term (current) use of oral hypoglycemic drugs; Z79.01 Long term (current) use of anticoagulants
CPT/HCPCS: 36415; 71045; 74177; 80048; 80053; 83690; 83735; 84443; 84484; 85025; 85027; 86140; 90686; 93005; 94640; 99285; A9270-GY; G8978-GP-CJ; G8978-GP-CK; G8979-GP-CI; G8987-GO-CK; G8988-GO-CJ; J0696; Q9967

== ENCOUNTER 2019-01-18 19:20 | Emergency (ER) | payer MEDICARE ==
[2019-01-18] MEDS ORDERED: oxyCODONE/Acetamin 5/325 MG* TAB PO ONE ×2 (19:30→21:15)
--- NOTE | 2019-01-18 20:02 | ED ---
Upper Extremity Pain - HPI Summary HPI Summary: Pt is a 78 y/o M presenting to the ED via EMS for right shoulder pain after a fall. Pt was cleaning a coffee stain when he leaned on a table for support and slipped on his right side. Pt admits right shoulder pain that radiates to the right arm. Pt rates the shoulder pain as 3/10 at rest which worsens to 7/10 with ambulation of the right UE. Pt states he has back pain at baseline that he rates as a 3/10. Pt also has left-sided neck discomfort, but denies neck pain. Pt denies CP, abdominal pain, or right elbow/ hand pain. Pt denies a head injury or LOC. Pt has had several falls in the past. Pt reports that previous falls were from weakness or illness, but states that the fall on 01/18/19 was mechanical. Pt walks with a walker at home. Pt takes Eliquis and takes oxycodone for pain. - History of Current Complaint Chief Complaint: EDFall Stated Complaint: FALL PER EMS Hx Obtained From: Patient Mechanism Of Injury: Fall From A Standing Position Onset/Duration: Started Minutes Ago, Traumatic, Still Present Timing: Lasting Minutes Severity Initially: Moderate Severity Currently: Moderate Pain Location: Shoulder - Right, Arm - Right Aggravating Factor(s): Movement - 7/10 Alleviating Factor(s): Rest - 3/10 Associated Signs & Symptoms: Positive: Back Pain - At baseline, 3/10, Other - Positive left-sided neck discomfort.. Negative: Chest Pain, Neck Pain - Allergies/Home Medications Allergies/Adverse Reactions: Allergies Allergy/AdvReac Type Severity Reaction Status Date / Time banana Allergy See Comment Verified 08/09/18 10:26 cephalexin [From Keflex] Allergy GI Upset Verified 01/18/19 19:29 walnut Allergy See Comment Verified 08/09/18 10:26 ciprofloxacin AdvReac GI Upset Verified 08/09/18 10:26 Home Medications: Home Medications Ferrous Sulfate TAB* 325 mg PO DAILY WITH MEAL 01/18/19 [History Confirmed 01/18] Gabapentin TAB(NF) [Neurontin 600 mg TAB(NF)] 600 mg PO TID 01/18/19 [History Confirmed 01/18/19] Nystatin/Triamcinolone CR(NF) [Mycolog CREAM(NF)] 1 applic TOPICAL BID PRN 01/18 [History Confirmed 01/18/19] Rivaroxaban TAB(*) [Xarelto 20 mg] 20 mg PO QPM 01/18/19 [History Confirmed 01/27] Sucralfate TAB* [Carafate*] 1 gm PO ACHS 01/18/19 [History Confirmed 01/18/19] PMH/Surg Hx/FS Hx/Imm Hx Previously Healthy: Yes Endocrine/Hematology History: Reports: Hx Anticoagulant Therapy, Hx Diabetes - NIDDM, Hx Thyroid Disease Denies: Hx Blood Disorders, Hx Blood Transfusions, Hx Bone Marrow Disease, Hx Sickle Cell Disease Cardiovascular History: Reports: Hx Angina, Hx Angioplasty, Hx Coronary Artery Disease, Hx Hypercholesterolemia, Hx Hypertension, Other Cardiovascular Problems /Disorders - HISTORY OF ATRIAL FIBRILLARION Denies: Hx Congestive Heart Failure, Hx Myocardial Infarction, Hx Pacemaker/ ICD, Hx Valvular Heart Disease Respiratory History: Reports: Hx Chronic Obstructive Pulmonary Disease (COPD), Hx Sleep Apnea Denies: Hx Asthma GI History: Reports: Hx Gall Bladder Disease - removed, Hx Gastroesophageal Reflux Disease, Hx Hiatal Hernia, Hx Ulcer, Other GI Disorders - Barretts esophagus History: Denies: Hx Renal Disease Musculoskeletal History: Reports: Hx Arthritis - ARTHRITIS, Hx Rheumatoid Arthritis, Hx Back Problems, Hx Osteoporosis Sensory History: Reports: Hx Cataracts - RIGHT EYE, Hx Contacts or Glasses, Hx Eye Injury, Hx Vision Problem Denies: Hx Eye Prosthesis, Hx Glaucoma, Hx Legally Blind, Hx Macular Degeneration, Hx Deafness, Hx Hearing Aid, Hx Hearing Problem, Other Sensory Impairments Opthamlomology History: Reports: Hx Cataracts - RIGHT EYE, Hx Contacts or Glasses, Hx Eye Injury, Hx Vision Problem Denies: Hx Eye Prosthesis, Hx Glaucoma, Hx Legally Blind, Hx Macular Degeneration, Other Sensory Impairments Neurological History: Reports: Other Neuro Impairments/Disorders - diabetic neuropathy (feet) Denies: Hx Dementia, Hx Developmental Delay, Hx Headaches, Hx Migraine, Hx Nerve Disease, Hx Seizures, Hx Spinal Cord Injury, Hx Transient Ischemic Attacks (TIA) Psychiatric History: Reports: Hx Anxiety Denies: Hx Panic Disorder - Cancer History Cancer Type, 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 - REMOVED- INCLUDING MARGINS NO NEED FOR CHEMO OR RADIATION Hx Chemotherapy: No Hx Radiation Therapy: No - Surgical History Surgical History: Yes Surgery Procedure, Year, and Place: 10 CARDIAC STENTS ( [place]), CHOLECYSTECTOMY, APPENDECTOMY, LEFT TOTAL HIP, ESOPHAGEAL CA TUMOR REMOVED 2014. FEET - [place]. NASAL - CLEAR THE PASSAGE. LEFT 5TH TOE AMPUTATION Hx Anesthesia Reactions: No - Immunization History Date of Tetanus Vaccine: Unknown Infectious Disease History: No Infectious Disease History: Reports: Hx Clostridium Difficile - 2017, Hx Hepatitis - CURED Denies: Hx Human Immunodeficiency Virus (HIV), Hx of Known/Suspected MRSA, Hx Shingles, Hx Tuberculosis, Hx Known/Suspected VRE, Hx Known/Suspected VRSA, History Other Infectious Disease, Traveled Outside the [place] in Last 30 Days - Family History Known Family History: Positive: Diabetes, Other - alzheimer's and colon CA - Social History Alcohol Use: Rare Hx Substance Use: No Substance Use Type: Reports: None Hx Tobacco Use: Yes Smoking Status (MU): Former Smoker Type: Cigarettes Amount Used/How Often: 1.5ppd Length of Time of Smoking/Using Tobacco: 50 years Have You Smoked in the Last Year: No Review of Systems Negative: Chest Pain Negative: Abdominal Pain Positive: Arthralgia - Right shoulder that radiates to right arm, neck discomfort; negative neck pain, Myalgia - Right arm, radiates from right shoulder; negative right hand pain Positive: Other - Abrasion to upper abdomen All Other Systems Reviewed And Are Negative: Yes Physical Exam - Summary Physical Exam Summary: Constitutional: Well-developed, Well-nourished, Alert, Well-appearing, Elderly. HENT: Normocephalic. Atraumatic, No abrasions/contusions, Midface stable, No dental trauma, No trismus Eyes: EOM normal, PERRL Neck: Trachea midline, No stridor, No cervical step off, No posterior cervical spine tenderness Cardio: Rhythm regular, rate normal, Heart sounds normal, Radial pulses are 2+ and symmetric. Pulmonary/Chest wall: Effort normal, Breath sounds normal, (-) Stridor, Equal chest rise, No rib tenderness Abd: Soft, Appearance normal. (-) Distension, (-) Tenderness. Musculoskeletal: No TL midline tenderness. Right foot in a pressure bootie; tenderness of the posterior right shoulder and AC joint. No elbow/hand/wrist tenderness Neuro: Alert,GCS 15. Strength 5/5 all extremities. Ambulates w steady gait w walker Skin: Warm, Dry, Superficial abrasion to abdomen. Triage Information Reviewed: Yes Vital Signs On Initial Exam: Initial Vitals Temp Pulse Resp BP Pulse Ox 98.3 F 66 18 148/66 95 01/18/19 19:25 01/18/19 19:25 01/18/19 19:25 01/18/19 19:25 01/18/19 19:25 Vital Signs Reviewed: Yes Procedures - Sedation Patient Received Moderate/Deep Sedation with Procedure: No Diagnostics - Vital Signs Vital Signs Temp Pulse Resp BP Pulse Ox 01/18/19 19:32 63 92 01/18/19 19:25 98.3 F 66 18 148/66 95 - Laboratory Lab Statement: Any lab studies that have been ordered have been reviewed, and results considered in the medical decision making process. - Radiology Chest X-ray Radiology Interpretation Completed By: ED Physician Summary of Radiographic Findings: Chest X-ray IMPRESSION: no acute process. Reviewed and interpreted by ED physician; pending official radiology report. Shoulder X-ray Radiology Interpretation Completed By: ED Physician Summary of Radiographic Findings: Shoulder X-ray IMPRESSION: concerning for distal clavicle fracture versus separation. Reviewed and interpreted by ED physician; pending official radiology report. Re-Evaluation - Re-Evaluation 1st re-eval Re-Evaluation Time: 21:36 Change: Improved Comment: At 21:36, pt is ambulating with a walker. NAD. Pt will be discharged with a diagnosis of fall and shoulder pain. Course/Dx - Course Course Of Treatment: 78-year-old male presents after mechanical fall with right shoulder pain. Physical exam with tenderness to the right posterior shoulder, pain with range of motion. No pain to the elbow, forearm, hand, chest wall, neck. Well check plain films including chest x-ray and shoulder x-ray. Patient has superficial abrasion to abdomen where he scraped it on the table, no abdominal tenderness. - Diagnoses Provider Diagnoses: Fall, Shoulder pain Discharge ED - Sign-Out/Discharge Documenting (check all that apply): Patient Departure - Discharge - Discharge Plan Condition: Stable Disposition: HOME Patient Education Materials: Fall Prevention for Older Adults (ED), Shoulder Pain (ED) Referrals: Jamie Cha MD [Primary Care Provider] - Additional Instructions: You were seen in the emergency department for a fall. Your x-ray showed possibly a small fracture of your clavicle. You'll be called tomorrow by radiology if this is a fracture when they look at the film. If any studies were not completed at the time of discharge you will be called with the relevant results. Please follow up with your primary care doctor in next 2-3 days and return to emergency department for worsening pain, chest pain, falls, passing out, numbness or tingling, or concerning symptoms. It was a pleasure taking care of you today. - Billing Disposition and Condition Condition: STABLE Disposition: Home - Attestation Statements Document Initiated by Julita: Yes Documenting Scribe: Roxane Cortes Provider For Whom Julita is Documenting (Include Credential): Jack Page MD Scribe Attestation: I, Roxane Cortes, scribed for Jack Page MD on 01/18/19 at 2325. Scribe Documentation Reviewed: Yes Provider Attestation: The documentation as recorded by the Roxane candelario accurately reflects the service I personally performed and the decisions made by me, Jack Page MD Status of Scribe Document: Viewed
[2019-01-18 21:50] VITALS: BP 156/61
[2019-01-19] MEDS ORDERED: Lidocaine PATCH 5%* 1 PATCH TRANSDERM SCH (09:00)
[2019-01-19] MEDS ORDERED: Lidocaine Patch REMOVE* 1 NOTE MISC SCH (21:00)
== END 2019-01-18 21:50 | disposition home or self-care (01) ==
LOC: ED 19:20
DX: M25.511 Pain in right shoulder (principal); M54.9 Dorsalgia, unspecified; Z91.81 History of falling; Z87.891 Personal history of nicotine dependence; Z85.01 Personal history of malignant neoplasm of esophagus; Z79.01 Long term (current) use of anticoagulants; E11.9 Type 2 diabetes mellitus without complications; E03.9 Hypothyroidism, unspecified; I25.10 Atherosclerotic heart disease of native coronary artery without angina pectoris; E78.00 Pure hypercholesterolemia, unspecified; I10 Essential (primary) hypertension; J44.9 Chronic obstructive pulmonary disease, unspecified; F41.9 Anxiety disorder, unspecified
CPT/HCPCS: 71046; 99282; A9270-GY

== ENCOUNTER 2019-01-22 12:37 | Emergency (ER) | payer MEDICARE ==
--- OUTSIDE RECORDS SUMMARY | 2019-01-22 12:53 | XMS REPORT | Continuity of Care Document ---
:1940 External Reference #:[id number] Author Name Tristan Vicente Care Team Providers Name Role Phone Jamie Cha MD - Family Medicine Care Team Information Bedspread Cutter [phone] Higinio Blum MD - Family Medicine Care Team Information Bedspread Cutter Problems Active Problems Provider Date Coronary arteriosclerosis Darren Sinclair M.D. Onset: 12/02/2010 Benign essential hypertension Darren Sinclair M.D. Onset: 12/02/2010 Atrial fibrillation Darren Sinclair M.D. Onset: 12/02/2010 Acute posthemorrhagic anemia Darren Sinclair M.D. Onset: 12/02/2010 Electrocardiogram abnormal Darren Sinclair M.D. Onset: 06/29/2011 Patient post percutaneous transluminal Darren Sinclair M.D. Onset: coronary angioplasty Arteriosclerosis of autologous vein Darren Sinclair M.D. 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 Onset: Hyperlipidemia Darren Sinclair M.D. Onset: 01/31/2012 Dyspnea Darren Sinclair M.D. Onset: 09/01/2012 Essential hypertension Darren Sinclair M.D. Onset: 05/06/2015 Late effect of injury Abdirahman Mullins M.D. Onset: 04/21/2016 Closed fracture of femur, greater Abdirahman Mullins M.D. Onset: 04/21/2016 trochanter Localized, primary osteoarthritis Jessica Contreras M.D. Onset: 09/24/2016 Social History Type Date Description Comments Sex Unknown ETOH Use Denies alcohol use Tobacco Use Start: Unknown End: Patient is a former smoker Unknown Recreational Drug Use Denies Drug Use Smoking Status Reviewed: 09/22/18 Patient is a former smoker Exercise Type/Frequency Exercises sporadically Allergies, Adverse Reactions, Alerts Active Allergies Reaction Severity Comments Date Banana Concentrate 01/23/2007 Nuts walnuts 01/23/2007 Cipro Severe 06/27/2018 Inactive Allergies Keflex stomach pain 06/29/2011 Medications Active Medications SIG Qnty Indications Ordering Date Provider Gabapentin 2 po tid 540caps Landry SSujey 09/22/2018 300mg Capsules Franco Crespo Levemir Flextouch inject 30 units 20units Other Ordering 06/26/2018 in in the Provider 100Unit/ML Solution morning and 32 Pen-Inject in at night Cyclobenzaprine HCL take one tablet 90tabs Abdirahman Mullins, 01/03/2017 10mg by mouth three M.DSujey Tablets times a day as needed for spasms Amiodarone HCL 1 po bid 60tabs Darren SSujey 03/03/2009 200mg Franco Sinclair Tablets Nitrostat one sl q5min up 25tabs Navdeep Burnham 02/21/2007 0.4mg Tablets Sub to 3 doses as Franco Brownlee needed Combivent 2 Puffs PO prn Darren SSujey 01/19/2007 Aerosol Franco Sinclair Oxycodone HCL 1 by mouth every Unknown 15mg Tablets 6 hours as needed pain Folic Acid 1 by mouth every Unknown 1mg Tablets day Crestor 1 by mouth every Unknown 40mg Tablets day Ferrous Sulfate take 1 tablet Unknown 325(65Fe) once daily. mg Tablets DR Don take one capsule Unknown 1gm Capsules by mouth twice a day Glipizide 1 by mouth twice Unknown 5mg Tablets a day Potassium Chloride Lexus 1 by mouth every Unknown ER day - on hold 20Meq Tablets ER Fenofibrate 1 by mouth every Unknown 145mg Tablets day Finasteride 1 by mouth every Unknown 5mg Tablets day Metanx 1 by mouth every Unknown 3-90.314-2-35mg day as needed Capsules Tylenol take 1-2 as Unknown 325mg Tablets needed every 4 hours Keflex take 1 tab by Unknown Capsules mouth four times a day Afrin Nasal [place] 1 spray twice Unknown 0.05% daily as needed Solution Vascepa 1 by mouth twice Unknown 1gm Capsules a day Ondansetron dissolve one Unknown 4mg Tablets tablet orally Dispers every 8 hours as needed for nausea. Celecoxib 1 by mouth every Unknown 200mg Capsules day Eliquis 1 by mouth twice Unknown 5mg Tablets a day Ativan 1 po tid prn 30tabs Unknown 1mg Tablets Protonix 1 po bid 90tabs Unknown 40mg Tablets DR Testosterone q 10 days Im- On Unknown 1000mg Powder Hold Lasix 1 by mouth every 60tabs Qutaybeh S. 20mg Tablets day Franco Sinclair Aspirin Adult Low 1 po qd- On Hold 30units Unknown Strength 81mg Chewtabs Restasis one gtts ou bid 2units Unknown 0.05% Emulsion Trental 1 po tid Unknown 400mg Tablets ER Blink Tears Lubricating once a day Unknown Eye Drops 0.25% Gel Miralax 17 gm every day Unknown 3350NF Powder mixed w/ 8 oz water/juice prn Senna 2 po hs on hold Unknown Ammonium Lactate apply to Unknown 12% Lotion dry/itchy skin Methenamine Mandelate 1 tab po bid Unknown 1gm Tablets Morphine Sulfate ER 1 by mouth every Unknown 30mg 12 hours Caps ER 24HR Vitamin C 1 by mouth every Unknown 500mg Capsules day Levothyroxine Sodium 1 by mouth every Unknown 250mcg day Tablets Dok take two tablets Unknown 100mg Tablets by mouth at bedtime Carafate 1 gram 2x daily Unknown 1gm Tablets Medications Administered in Office Medication SIG Qnty Indications Ordering Provider Date Depomedrol 40MG Jessica Contreras M.D. 09/24/2016 Injection Immunizations Description No Information Available Vital Signs Date Vital Result Comment 09/22/2018 4:02pm Height 74 inches 6'2" Weight 246.00 lb Heart Rate 69 /min BP Systolic Sitting 102 mmHg reg adult cuff left arm BP Diastolic Sitting 70 mmHg reg adult cuff left arm O2 % BldC Oximetry 95 % BMI (Body Mass Index) 31.6 kg/m2 06/27/2018 3:43pm Height 74 inches 6'2" Weight 247.50 lb with shoes Heart Rate 96 /min BP Systolic Sitting 130 mmHg right arm BP Diastolic Sitting 70 mmHg right arm BP Systolic Standing 134 mmHg right arm BP Diastolic Standing 68 mmHg right arm BMI (Body Mass Index) 31.8 kg/m2 Ejection Fraction 55-60% 09/29/2016 Echocardiogram Results Description No Information Available Procedures Date Code Description Status 07/20/2018 94774 ECHO Transthoracic, Real-Time 2D With Doppler And Color Completed Flow 07/20/2018 22985 ECHO Transthoracic, Real-Time 2D With Doppler And Color Completed Flow Medical Devices Description No Information Available Encounters Type Date Location Provider Dx Diagnosis Office Visit 09/22/2018 [facility] [place] G25.0 Essential tremor 3:45p Franco Crespo G62.9 Polyneuropathy, unspecified Office Visit 08/12/2018 [facility] Amie 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,pc Jhonatan, FINISH MENDER syndrome w/o Hospitalists complications of l low extrem L03.116 Cellulitis of left lower limb Office Visit 08/11/2018 [facility] Jazmin 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,jocelin Ortiz PA-C syndrome w/o Hospitalists complications of l low extrem L03.116 Cellulitis of left lower limb I82.402 Acute embolism and thombos unsp deep veins of l low extrem I73.9 Peripheral vascular disease, unspecified E11.628 Type 2 diabetes mellitus with other skin complications Office Visit 2018 [facility] Jazmin R60.0 Localized edema 11:20a Assoc,RACQUEL Corrales-C Hospitalists [facility] I82.402 Acute embolism 9:09a [facility]oc[facility]ocelin [facility] unsp deep veins of l low extrem R50.9 Fever, unspecified [facility] I82.402 Acute embolism Assoc,jocelin [facility] Hospitalists unsp deep veins of l low extrem R50.9 Fever, unspecified E11.69 Type 2 diabetes mellitus with other specified complication Office Visit 08/04/2018 9:09a [facility] Phu I82.402 Acute embolism Assoc,RACQUEL [facility] Hospitalists unsp deep veins of l low extrem E11.628 Type 2 diabetes mellitus with other skin complications I73.9 Peripheral vascular disease, unspecified R53.81 Other malaise [facility]ism [facility]oc,[facility]ocelin Curtis [facility] Hospital[facility] unsp deep veins of l low extrem E11.628 Type 2 diabetes mellitus with other skin complications Office Visit 08/02/2018 9:08a [facility] Grayson Ryan I82.402 Acute embolism Assoc,jocelin Ramirez [facility] Hospital[facility] unsp deep veins of l low extrem E11.9 Type 2 diabetes mellitus without complications I48.91 Unspecified atrial fibrillation Office Visit 08/01/2018 9:07a [facility] Alisa N17.9 Acute kidney Assoc,jocelin Adams, DO failure, Hospitalists unspecified R50.9 Fever, unspecified E11.9 Type 2 diabetes mellitus without complications Assessments Date Code Description Provider 12/25/2018 K59.00 Constipation, unspecified Vicki Ludwig NP 12/25/2018 K52.9 Noninfective gastroenteritis and Vicki Ludwig NP colitis, unspecified 12/25/2018 R53.1 Weakness Vicki Ludwig NP 12/25/2018 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, 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) 12/24/2018 K52.9 Noninfective gastroenteritis and Vicki Landin Doto, FINISH M[employer]ER colitis, unspecified 12/24/2018 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 Vicki Landin Doto, 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) 12/24/2018 E11.22 Type 2 diabetes mellitus with diabetic Vicki Landin Doto, FINISH M[employer]ER chronic kidney disease 12/24/2018 N18.9 Chronic kidney disease, unspecified Vicki Lanidn Doto, FINISH MENDER 12/23/2018 K52.9 Noninfective gastroenteritis and Amie Jhonatan, FINISH MENDER colitis, unspecified 12/23/2018 R53.1 Weakness Amie Jhonatan, FINISH MENDER 12/23/2018 E11.22 Type 2 diabetes mellitus with diabetic Amie Jhonatan, FINISH MENDER chronic kidney disease 12/23/2018 N18.9 Chronic kidney disease, unspecified Amie Jhonatan, FINISH MENDER 12/23/2018 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 Amie Jhonatan, 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) 12/22/2018 K59.00 Constipation, unspecified Amie Jhonatan, FINISH MENDER 12/22/2018 K52.9 Noninfective gastroenteritis and Amie Jhonatan, FINISH MENDER colitis, unspecified 12/22/2018 R53.1 Weakness Amie Jhonatan, FINISH MENDER 12/22/2018 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 Amie Jhonatan, 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) 12/21/2018 K59.00 Constipation, unspecified Lorene Winters MD 12/21/2018 K52.9 Noninfective gastroenteritis and Lorene Winters MD colitis, unspecified 12/21/2018 R53.1 Weakness Lorene Winters MD 12/21/2018 R29.6 Repeated falls Lorene Winters MD 09/22/2018 G25.0 Essential tremor Landry Crespo M.D. 09/22/2018 G62.9 Polyneuropathy, unspecified Landry Crespo M.D. 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 Jazmin O'sp, PA-C complications of l low extrem 08/11/2018 L03.116 Cellulitis of left lower limb Jazmin O'sp, PA-C 08/11/2018 I82.402 Acute embolism and thrombosis of Jamzin O'sp, PA-C unspecified deep veins of l 08/11/2018 I73.9 ower extremity Jazmin O'sp, PA-C 08/11/2018 E11.628 Type 2 diabetes mellitus with other Jazmin O'sp, PA-C skin complications 08/10/2018 L03.116 Cellulitis of left lower limb Jazmin O'sp, PA-C 08/10/2018 I82.402 Acute embolism and thrombosis of Jazmin O'sp, PA-C unspecified deep veins of left lower extremity 08/10/2018 I73.9 Peripheral vascular disease, Jazmin O'sp, PA-C unspecified 08/10/2018 E11.9 Type 2 diabetes mellitus without Jazmin O'sp, PA-C complications 2018 R60.0 Localized edema Jazmin O'sp, PA-C 08/06/2018 I82.402 Acute embolism and thrombosis of Delmi Kemp M.D. unspecified deep veins of l 08/06/2018 R50.9 Fever, unspecified Delmi Kemp M.D. 08/05/2018 I82.402 Acute embolism and thrombosis of Delmi Kemp M.D. unspecified deep veins of l 08/05/2018 R50.9 Fever, unspecified Delmi Kemp M.D. 08/05/2018 E11.69 Type 2 diabetes mellitus with other Delmi Kemp M.D. specified complication 08/04/2018 I82.402 Acute embolism and thrombosis of RACQUEL Whittaker unspecified deep veins of l 08/04/2018 E11.628 Type 2 diabetes mellitus with other RACQUEL Whittaker skin complications 08/04/2018 I73.9 Peripheral vascular disease, RACQUEL Whittaker unspecified 08/04/2018 R53.81 Other RACQUEL Joshi 08/03/2018 I82.402 Acute embolism and thrombosis of Nereyda Crowellarchie, FINISH MENDER unspecified deep veins of l 08/03/2018 E11.628 Type 2 diabetes mellitus with other Nereyda Curtis, FINISH M[employer]ER skin complications 08/02/2018 I82.402 Acute embolism and thrombosis of Grayson Ramirez MD unspecified deep veins of l 08/02/2018 E11.9 Type 2 diabetes mellitus without Grayson Ramirez MD complications 08/02/2018 I48.91 Unspecified atrial fibrillation Grayson Ramirez MD 08/01/2018 N17.9 Acute kidney failure, unspecified Alisa Rooth, DO 08/01/2018 R50.9 Fever, unspecified Alisa Rooth, DO 08/01/2018 E11.9 Type 2 diabetes mellitus without Alisa Rooth, DO complications 07/20/2018 I35.0 Nonrheumatic aortic (valve) stenosis Darren Sinclair M.D. 07/20/2018 I35.0 Nonrheumatic aortic (valve) stenosis Traveling ECHO 1 07/20/2018 I25.10 Atherosclerotic heart disease of Traveling ECHO 1 [place] coronary artery with 07/20/2018 I10 Essential (primary) hypertension Traveling ECHO 1 07/20/2018 I48.0 Paroxysmal atrial fibrillation Traveling ECHO 1 Plan of Treatment Future Appointment(s):09/26/2019 3:45 pm - Landry Crespo M.D. at [facility]09/22/2018 - Landry Crespo M.D.G25.0 Essential buwbnoR74.9 Polyneuropathy, unspecified Functional Status Description No Information Available Mental Status Description No Information Available Referrals Description No Information Available
--- OUTSIDE RECORDS SUMMARY | 2019-01-22 12:53 | XMS REPORT | Continuity of Care Document ---
:1940 External Reference #:[id number] Author Name Jamie Cha M.D. Address [address] [place] [address] Care Team Providers Name Role Phone [facility] - Care Team Information Wet [employer] Helper [phone] Gastroenterology Landry Crespo MD - Neurology Care Team Information [employer]per [phone] Problems Active Problems Provider Date Hyperlipidemia Jamie Cha M.D. Onset: 10/17/2006 Sleep apnea Jamie Cha M.D. Onset: 10/17/2006 Batista's esophagus Jamie Cha M.D. Onset: 10/17/2006 Type 2 diabetes mellitus Jamie Cha M.D. Onset: 09/11/2007 Coronary arteriosclerosis Jamie Cha M.D. Onset: 09/11/2007 Peripheral vascular disease Jamie Cha M.D. Onset: 09/11/2007 Hypothyroidism Jamie Cha M.D. Onset: 09/28/2010 Benign prostatic hypertrophy without outflow Jamie Cha M.D. Onset: obstruction Allergic rhinitis Jamei Cha M.D. Onset: 05/12/2012 Essential tremor Jamie Cha M.D. Onset: 07/30/2013 Gastroesophageal reflux disease Jamie Cha M.D. Onset: 08/05/2015 Long-term current use of anticoagulant Jamie Cha M.D. Onset: 2015 Paroxysmal atrial fibrillation Jamie Cha M.D. Onset: 01/04/2017 Benign prostatic hypertrophy with outflow Jamie Cha M.D. Onset: 10/22 /2018 obstruction Symptom of skin and integumentary tissue Jamie Cha M.D. Onset: 2017 Aortic valve disorder Jamie Cha M.D. Onset: 01/30/2018 Neuropathy due to type 2 diabetes mellitus Jamie Cha M.D. Onset: Osteoporosis Jamie Cha M.D. Onset: 11/07/2018 Constipation - functional Jamie Cha M.D. Onset: 01/05/2019 Inactive Problems Mixed hyperlipidemia Jamie Cha M.D. Onset: 09/05/2018 Inactive: 11/08/2018 Thrombophlebitis of the femoral vein Jamie Cha M.D. Onset: 11/07/2018 Inactive: 01/05/2019 Phlebitis and thrombophlebitis Jamie Cha M.D. Onset: 11/07/2018 Inactive: 01/05/2019 Social History Type Date Description Comments Sex Unknown Tobacco Use Start: Unknown End: Unknown Former Cigarette Smoker quit 2005 ETOH Use Some Allergies, Adverse Reactions, Alerts Active Allergies Reaction Severity Comments Date Walnuts 05/25/2010 bananas 05/25/2010 Seasonal 09/22/2015 Environmental 09/22/2015 Cipro 01/05/2019 Keflex 01/05/2019 Inactive Allergies Keflex 07/17/1997 NKDA 10/06/2017 Medications Active Medications SIG Qnty Indications Ordering Date Provider Prolia 60 mg every 6 1ml Jamie FSujey 60mg/ml Soln months Franco Cha 9 Prefill Syringe Eliquis take one tablet by 180tabs Jamie FSujey 5mg Tablets mouth twice a day Franco Cha 9 Finasteride Take One Tablet By 90tabs Jamie FSujey 5mg Tablets Mouth Once Daily Franco Cha 9 Mdgkl-2-Otns Ethyl Take One Capsule 60caps Jamie Burnham Esters By Mouth Twice A Franco Cha 9 1gm Capsules Day as Directed Pantoprazole Sodium Take One Tablet By 180tabs Jamie FSujey Mouth Twice A Day Franco Cha [address] Ondansetron dissolve 1 tab 15tabs Jamie FSujey 4mg Tablets under tongue four Franco Cha 9 Dispers times a day hours as needed nausea Ferrous Sulfate Take One Tablet By 100tabs Jamie F. Mouth Once Daily Franco Cha 9 325(65Fe) mg Tablets as Directed Nystatin use as directed 30gm Jamie F. [id number]/GM twice a day as Franco Cha 9 Cream needed Mometasone Furoate apply three times 45gm Jamie F. 0.1% a day as needed Franco Cha 9 Cream Levothyroxine Sodium 1 by mouth every 90tabs Jamie F. day Franco Cha 8 50mcg Tablets BD Pen use with insulin 100units Jamie F. Needle/Mini/Ultrafine Franco Cha 8 /31G X 3/16" 31G X 5 mm [facility] Miralax mix 1 capful in 2295units [facility]. [id number] Powder glass of water and Franco Cha 8 drink everyday Anoro Ellipta inhale 1 puff by 60units Jamie . mouth daily for Franco Cha 8 62.5-25mcg/Inh chronic Aerosol obstructive lung disease Levemir Flextouch inject 46 units at 45ml [facility]. bedtime Franco Cha 8 100Unit/ML Solution Pen-Inject Onetouch Ultrasoft check blood sugar 200units Jamie F. Lancets twice a day Franco Cha 8 Misc 10/06/17 e11.9 Sucralfate Take 10 ml by 500ml Jamie F. 1GM/10ML mouth 4 times per Franco Cha 8 Suspension day 1 hour before meals and at bedtime on an empty stomach for duodenal ulcer Levothyroxine Sodium 1 by mouth every 90tabs Jamie F. day with 50mcg Franco Cha 7 200mcg Tablets Methenamine Hippurate Take One Tablet By 60tabs Jamie F. Mouth Twice A Day Franco Cha 7 1gm Tablets Morphine Sulfate 1 tab PO bid Jamie FSujey 30mg Franco Cha 7 Tablets Fluocinolone Apply 1 118.28unit Jamie F. Acetonide Scalp Application To s Franco Cha 7 0.01% Affected Area(S) Oil Three Times A Day For Eczema Cyclobenzaprine HCL Take One Tablet By 60tabs Jamie FSujey Mouth AT Bedtime Franco Cha 7 10mg Tablets Onetouch Ultra Blue test two times a 100units Jamie F. day dx e11.42 last Franco Cha 6 Strips office visit 02/13/18 Fenofibrate Take One Tablet By 90tabs Jamie F. 145mg Mouth Once Daily Franco Cha 6 Tablets Senexon-S Take Two Tablets 60tabs Jamie F. 8.6-50mg By Mouth Every Franco Cha 6 Tablets Evening as Needed For Constipation Rosuvastatin Calcium Take One Tablet By 90tabs Jamie F. Mouth Once Daily Franco Cha 6 40mg Tablets as Directed Celecoxib Take One Capsule 30caps Jamie F. 200mg By Mouth Once Franco Cha 5 Capsules Daily Combivent Respimat Inhale One puff By 4units Jamie FSujey Mouth Four Times A Franco Cha 3 20-100mcg/Act Aerosol Day Glipizide Take One-Half 90tabs Jamie F. 10mg Tablets Tablet By Mouth Franco Cha 0 Twice A Day Amiodarone HCL Take One Tablet By 180tabs Jamie F. 200mg Mouth Twice A Day Franco Cha 0 Tablets Folic Acid Take One Tablet By 30tabs Jamie F. 1mg Tablets Mouth Once Daily Franco Cha 9 Potassium Chloride take one tablet by 60tabs Jamie F. Lexus ER mouth twice a day Franco Cha 8 20Meq Tablets ER Nitroglycerin One Tablet Under 30tabs [facility] 0.4mg Tongue, Every 5 [facility] 7 Tablets Minutes, Up To Apex Three Lorazepam Take One Tablet By 90tabs Jamie F. 1mg Tablets Mouth Three Times Ashok ChaDSujey 0 A Day as Needed, Maximum 3 Per Day Gabapentin Take 1 Capsule 90caps Jamie F. 100mg With 400MG (500MG Semaj M.DSujey 0 Capsules Total) By Mouth Three Times A Day For Pain as Directed Gabapentin take one capsule Jamie F. 400mg with 100mg (500mg Semaj M.D. 0 Capsules total) by mouth three times a day Oxycodone HCL 1 tab q4-6 h as Jamie F. 10mg needed pain Franco Cha 0 Tablets Vitamin D3 qd Jamie F. 2000Unit Franco Cha 0 Chewtabs Refresh Optive prn Jamie F. 0.5-0.9% Franco Cha 0 Solution Pentoxifylline ER 1 by mouth three Jamie F. 400mg times a day Franco Cha 0 Tablets ER Nystop apply to affected Jamie F. [id number]/GM area three times a Franco Cha 0 Powder day as needed Aspirin 1 po qday Jamie F. 81mg Tablets DR Semaj M.D. 0 Restasis 1 gtts bid both 1bottle Jamie F. 0.05% Emulsion eyes Franco Cha 0 Lasix 1 po bid Jamie F. 20mg Tablets Franco Cha 0 History Medications Warfarin Sodium 1 by mouth every 90tabs Jamie Cha, 08/25/2018 - day or as directed Franco 10/20/2018 2.5mg Tablets by Medications Administered in Office Medication SIG Qnty Indications Ordering Provider Date H1N1 MDCR vaccine any route Jamie Cha M.D. 03/25/2009 Injection Immunizations CPT Code Status Date Vaccine Lot # [id number] Given 02/09/2018 High-Dose, Influenza Virus Vacccine-fluzone 65 and older 18066 Given 01/04/2017 High-Dose, Influenza Virus Vacccine-fluzone 65 [id number] and older 22024 Given 02/03/2015 High-Dose, Influenza Virus Vacccine-fluzone 65 and older 87664 Given 08/02/2014 Pneumococcal Conjugate Vacc-13 [id number] 09960 Given 12/11/2013 DO Not Use Split Influenza Virus Vaccine 77188 Given 01/09/2013 High-Dose, Influenza Virus Vacccine-fluzone 65 and older 47951 Given 11/01/2012 Zostivax 96175 Given 01/28/2012 Tdap Tetanus, W Pertussis [id number] 80189 Given 01/18/2012 High-Dose, Influenza Virus Vacccine-fluzone 65 [id number] and older 27976 Given 12/18/2010 DO Not Use Split Influenza Virus Vaccine [id number] 79478 Given 12/05/2009 Tetanus And Diptheria Adult Preservative Free [id number] >7Yrs 05536 Given 01/19/2008 DO Not Use Split Influenza Virus Vaccine [id number] 98538 Given 01/17/2007 DO Not Use Split Influenza Virus Vaccine [id number] 86057 Given 01/17/2007 Hep A Adlt Immunization [id number] 78881 Given 03/14/2006 Pneumococcal Immunization [id number] 02521 Given 03/14/2006 DO Not Use Split Influenza Virus Vaccine [id number] 18779 Given 02/18/2005 DO Not Use Split Influenza Virus Vaccine 69756 Given 03/27/2001 Influenza Immunization 83006 Given 03/27/2001 DO Not Use Split Influenza Virus Vaccine Vital Signs Date Vital Result Comment 01/05/2019 4:21pm BP Systolic 130 mmHg BP Diastolic 70 mmHg Heart Rate 62 /min Body Temperature 97.7 F Respiratory Rate 17 /min Height 68.5 inches 5'8.50" Weight 236.00 lb BMI (Body Mass Index) 35.4 kg/m2 11/07/2018 4:14pm BP Systolic 120 mmHg BP Diastolic 64 mmHg Heart Rate 60 /min Body Temperature 97.9 F Respiratory Rate 17 /min Height 68.5 inches 5'8.50" Weight 242.00 lb BMI (Body Mass Index) 36.3 kg/m2 Results Test Date Facility Test Result H/L Range Note CBC Auto Diff 12/20/2018 [facility] White Blood Count 10.4 10^3/uL Normal 3.5- 10.8 Red Blood Count 4.99 10^6/uL Normal 4.18-5.48 Hemoglobin 14.4 g/dL Normal 14.0-18.0 Hematocrit 44 % Normal 42-52 Mean Corpuscular Volume 87 fL Normal 80-94 Mean Corpuscular Hemoglobin 29 pg Normal 27-31 Mean Corpuscular HGB Conc 33 g/dL Normal 31-36 Red Cell Distribution Width 15 % Normal 10-15 Platelet Count 247 10^3/uL Normal 150-450 Mean Platelet Volume 7.0 fL Low 7.4-10.4 Abs Neutrophils 8.6 10^3/uL High 1.5-7.7 Abs Lymphocytes 0.7 10^3/uL Low 1.0-4.8 Abs Monocytes 0.9 10^3/uL High 0-0.8 Abs Eosinophils 0.1 10^3/uL Normal 0-0.6 Abs Basophils 0.1 10^3/uL Normal 0-0.2 Abs Nucleated RBC 0.0 10^3/uL Granulocyte % 83.1 % Lymphocyte % 6.8 % Monocyte % 9.0 % Eosinophil % 0.6 % Basophil % 0.5 % Nucleated Red Blood Cells % 0.0 Comp Metabolic Panel 12/20/2018 [facility] Sodium 136 mmol/L Normal 135-145 Potassium 4.3 mmol/L Normal 3.5-5.0 Chloride 107 mmol/L Normal 101-111 Co2 Carbon Dioxide 21 mmol/L Low 22-32 Anion Gap 8 mmol/L Normal 2-11 Glucose 177 mg/dL High 70-100 Blood Urea Nitrogen 19 mg/dL Normal 6-24 Creatinine 1.32 mg/dL High 0.67-1.17 BUN/Creatinine Ratio 14.4 Normal 8-20 Calcium 8.0 mg/dL Low 8.6-10.3 Total Protein 6.8 g/dL Normal 6.4-8.9 Albumin 3.9 g/dL Normal 3.2-5.2 Globulin 2.9 g/dL Normal 2-4 Albumin/Globulin Ratio 1.3 Normal 1-3 Total Bilirubin 0.60 mg/dL Normal 0.2-1.0 Alkaline Phosphatase 50 U/L Normal 34-104 Alt 13 U/L Normal 7-52 Ast 12 U/L Low 13-39 Egfr Non- 52.6 >60 Egfr 63.6 >60 1 Laboratory test finding 12/20/2018 [facility] Lipase < 10 U/L Low 11.0-82.0 Troponin I 0.00 ng/mL <0.04 2 C Reactive Protein 112.15 mg/L High <8.01 TSH (Thyroid Stim Horm) 0.21 mcIU/mL Low 0.34-5.60 Laboratory test 11/17/2018 [facility] D Dimer < 200 Normal Less Than 3 finding Quantitative ng/mL 230 Lipid Profile 09/05/2018 Teddy Nguyen(fma) Cholesterol 220 mg/dL High 120-200 Triglycerides 226 mg/dL High 30-200 HDL Cholesterol 58 mg/dL 30-70 LDL (Calculated) 117 CALC 0-129 VLDL Cholesterol 45 mg/dL 0-50 HDL Risk Factor 3.8 CALC 0.0-4.4 Comprehensive Metabolic 09/05/2018 Teddy Nguyen(fma) Sodium 141 mEq/L 134-149 Prof Potassium 5.0 mEq/L 3.6-5.5 Chloride 101 mEq/L 94-112 Carbon Dioxide 28 mEq/L 21-32 Glucose 230 mg/dL High 70-105 BUN 35 mg/dL High 6-26 Creatinine 1.6 mg/dL High 0.6-1.4 BUN/Creat Ratio 21.9 CALC 8.0-36.0 Calcium 10.0 mg/dL 8.6-10.2 Total Protein 7.3 g/dL 6.4-8.3 Albumin 4.6 g/dL 3.8-5.5 Globulin 2.7 g/dL 2.0-4.8 A/G Ratio 1.7 CALC 0.6-2.3 Alk. Phosphatase 62 U/L 22-95 Alt (SGPT) 23 U/L 7-35 Ast (Sgot) 30 U/L 5-34 Total Bilirubin 0.5 mg/dL 0.2-1.3 GFR Non- 45 ml/min/1.73m^ Low >=60 GFR 54 ml/min/1.73m^ Low >=60 Laboratory test finding 09/05/2018 Teddy Nguyen(fma) TSH 0.62 mIU/L 0.50-6.00 CK 40 U/L 38-174 Laboratory test 09/05/2018 [facility] Hemoglobin A1c 9.1 % High 4.1- 5.7 finding (607)- - (a) CBC Electronic 09/05/2018 [facility] WBC 6.99 4.0-10.0 (Fma New) (607)- - RBC 4.68 3.93-6.0 Hemoglobin (Fma/CMC/CTX) 13.2 g/dL 12.0-17.0 Hematocrit (Fma/CMC/CTX) 42.0 % 35.0-50.0 Mean Corpuscular Vol 89.7 fL 80-95 Mean Corpuscular Hemoglobin 28.2 pg 25.6-32.2 Mean Corpuscular Hemo Concen 31.4 g/dL Low 32.2-36.0 Platelets 224 10^3/ul 163-400 RDW-CV 13.1 11.6-14.4 Mean Platelet Volume 8.7 fL 8.0-12.4 Absolute Neutrophils BLD 5.12 1.56-6.13 Absolute Lymphocytes 1.08 Low 1.18-3.74 Absolute Monocytes BLD Auto 0.52 0.24-0.82 Absolute Eos Blood 0.17 0.04-0.54 Absolute Basophils 0.05 0.01-0.08 Neutrophil % 73.3 % High 34.0-70.0 Lymph% 15.5 % Low 20.0-52.0 Monocytes % 7.4 % 5.0-12.0 Eos % 2.4 % 0.7-7.0 Basophil% 0.7 % 0-1.2 Laboratory test 08/25/2018 [facility] D Dimer < 200 ng/mL Normal Less Than 4 finding Quantitative 230 Laboratory test 2018 [facility] Blood Culture SEE RESULT 5 finding BELOW CBC Auto Diff 2018 [facility] White Blood Count 5.4 10^3/uL Normal 3.5- 10.8 Red Blood Count 4.42 10^6/uL Normal 4.18-5.48 Hemoglobin 12.8 g/dL Low 14.0-18.0 Hematocrit 38 % Low 42-52 Mean Corpuscular Volume 87 fL Normal 80-94 Mean Corpuscular Hemoglobin 29 pg Normal 27-31 Mean Corpuscular HGB Conc 33 g/dL Normal 31-36 Red Cell Distribution Width 14 % Normal 10.5-15 Platelet Count 332 10^3/uL Normal 150-450 Mean Platelet Volume 6.7 fL Low 7.4-10.4 Abs Neutrophils 4.1 10^3/uL Normal 1.5-7.7 Abs Lymphocytes 0.7 10^3/uL Low 1.0-4.8 Abs Monocytes 0.4 10^3/uL Normal 0-0.8 Abs Eosinophils 0.1 10^3/uL Normal 0-0.6 Abs Basophils 0.1 10^3/uL Normal 0-0.2 Abs Nucleated RBC 0 10^3/uL Granulocyte % 75.2 % Lymphocyte % 13.5 % Monocyte % 7.7 % Eosinophil % 2.7 % Basophil % 0.9 % Nucleated Red Blood Cells % 0.2 Laboratory test finding 2018 [facility] C Reactive Protein 13.66 mg/L High <8.01 Comp Metabolic Panel 2018 [facility] Sodium 138 mmol/L Normal 135-145 Potassium 4.2 mmol/L Normal 3.5-5.0 Chloride 103 mmol/L Normal 101-111 Co2 Carbon Dioxide 26 mmol/L Normal 22-32 Anion Gap 9 mmol/L Normal 2-11 Glucose 231 mg/dL High 70-100 Blood Urea Nitrogen 16 mg/dL Normal 6-24 Creatinine 1.30 mg/dL High 0.67-1.17 BUN/Creatinine Ratio 12.3 Normal 8-20 Calcium 9.2 mg/dL Normal 8.6-10.3 Total Protein 7.0 g/dL Normal 6.4-8.9 Albumin 4.0 g/dL Normal 3.2-5.2 Globulin 3.0 g/dL Normal 2-4 Albumin/Globulin Ratio 1.3 Normal 1-3 Total Bilirubin 0.50 mg/dL Normal 0.2-1.0 Alkaline Phosphatase 62 U/L Normal 34-104 Alt 33 U/L Normal 7-52 Ast 34 U/L Normal 13-39 Egfr Non- 53.5 >60 Egfr 64.8 >60 6 Laboratory test 2018 [facility] Partial 51.7 seconds High 26.0-36.3 finding Thrombo Time PTT Inr/Protime 2018 [facility] Inr 2.38 High 0.82-1.09 7 Laboratory test 2018 [facility] Lactic Acid 1.1 mmol/L Normal 0.5-2.0 8 finding Laboratory test 08/08/2018 [facility] ([facility] Lab SEE ATTACHED finding Test Urinalysis 07/31/2018 [facility] Urine Color Yellow Profile Urine Appearance Clear Urine Specific [place] 1.014 Normal 1.010-1.030 Urine pH 6.0 Normal 5-9 Urine Urobilinogen Negative Negative Urine Ketones Negative Negative Urine Protein Negative Negative Urine Leukocytes Negative Negative Urine Blood Negative Negative Urine Nitrite Negative Negative Urine Bilirubin Negative Negative Urine Glucose 3+(>=500 mg/dL) Abnormal Negative Comp Metabolic Panel 07/31/2018 [facility] Sodium 137 mmol/L Normal 135-145 Potassium 4.5 mmol/L Normal 3.5-5.0 Chloride 102 mmol/L Normal 101-111 Co2 Carbon Dioxide 27 mmol/L Normal 22-32 Anion Gap 8 mmol/L Normal 2-11 Glucose 332 mg/dL High 70-100 Blood Urea Nitrogen 26 mg/dL High 6-24 Creatinine 1.95 mg/dL High 0.67-1.17 BUN/Creatinine Ratio 13.3 Normal 8-20 Calcium 9.5 mg/dL Normal 8.6-10.3 Total Protein 7.0 g/dL Normal 6.4-8.9 Albumin 4.2 g/dL Normal 3.2-5.2 Globulin 2.8 g/dL Normal 2-4 Albumin/Globulin Ratio 1.5 Normal 1-3 Total Bilirubin 0.50 mg/dL Normal 0.2-1.0 Alkaline Phosphatase 53 U/L Normal 34-104 Alt 32 U/L Normal 7-52 Ast 26 U/L Normal 13-39 Egfr Non- 33.6 >60 Egfr 40.7 >60 9 Laboratory test finding 07/31/2018 [facility] Troponin I 0.01 ng/mL <0.04 10 Blood Culture SEE RESULT BELOW 11 1 Because ethnic data is not always readily available, this report includes an eGFR for both -Americans and non- Americans. The National Kidney Disease Education Program (NKDEP) does not endorse the use of the MDRD equation for patients that are not between the ages of 18 and 70, are , have extremes of body size, muscle mass, or nutritional status, or are non- or non-. According to the National Kidney Foundation, irrespective of diagnosis, the stage of the disease is based on the level of kidney function: Stage Description GFR(mL/min/1.73 m(2)) 1 Kidney damage with normal or decreased GFR 90 2 Kidney damage with mild decrease in GFR 60-89 3 Moderate decrease in GFR 30-59 4 Severe decrease in GFR 15-29 5 Kidney failure <15 (or dialysis) 2 Troponin-I testing on Plasma Separator Tubes (PST) has a known false positive rate of 0.20-0.40%. All positive troponins reflex immediately to secondary confirmatory testing. Using the re3D DxI 800 Access Immunoassay systems, the 99th percentile upper reference limit was demonstrated to be < 0.03 ng/mL. 3 Please note: The following may produce a false positive D Dimer test: - Rheumatoid factor greater than 60 IU/ml - Plasma hemoglobin greater than 0.05 gm/dl - Bilirubin greater than 50 mg/dl - Lipids greater than 1000 mg/dl - FDP greater than 20 ug/ml 4 Please note: The following may produce a false positive D Dimer test: - Rheumatoid factor greater than 60 IU/ml - Plasma hemoglobin greater than 0.05 gm/dl - Bilirubin greater than 50 mg/dl - Lipids greater than 1000 mg/dl - FDP greater than 20 ug/ml 5 SEE RESULT BELOW Name: ZELDA BRYANT : [address]: Lorene Winters MD Acct: [id number] Unit: [id number] AGE: 78 Location: [place] [address]- Re08/11/18 Dis: 08/12/18 SEX: M Status: DIS IN SPEC: [id number] ELADIA: 08/09/[address] [facility] [address]: Alberta Fuentes MD REQ: [id number] RECD: 08/09/18 STATUS: ALYSSA CABRERA DR: Jamie Cha MD _ SOURCE: BLOOD,VENO [facility]: ORDERED: Blood Cult Procedure Result Reported Site Aerobic Culture Bottle Final 08/14/18- 1052 ML No Growth Day 5 Anaerobic Culture Bottle Final 08/14/18- 1052 ML No Growth Day 5 * ML - Main Lab . END OF REPORT DEPARTMENT OF PATHOLOGY, [address] [place] [address] Trino Corrales M.D. Director [facility] # [id number] 6 Because ethnic data is not always readily available, this report includes an eGFR for both -Americans and non- Americans. The National Kidney Disease Education Program (NKDEP) does not endorse the use of the MDRD equation for patients that are not between the ages of 18 and 70, are , have extremes of body size, muscle mass, or nutritional status, or are non- or non-. According to the National Kidney Foundation, irrespective of diagnosis, the stage of the disease is based on the level of kidney function: Stage Description GFR(mL/min/1.73 m(2)) 1 Kidney damage with normal or decreased GFR 90 2 Kidney damage with mild decrease in GFR 60-89 3 Moderate decrease in GFR 30-59 4 Severe decrease in GFR 15-29 5 Kidney failure <15 (or dialysis) 7 Standard intensity warfarin therapeutic range: 2.0-3.0 High intensity warfarin therapeutic range: 2.5-3.5 8 [facility] Severe Sepsis and Septic Shock Management Bundle Measure requires all lactic acids initially measuring >2.0 mmol/L be repeated. 9 Because ethnic data is not always readily available, this report includes an eGFR for both -Americans and non- Americans. The National Kidney Disease Education Program (NKDEP) does not endorse the use of the MDRD equation for patients that are not between the ages of 18 and 70, are , have extremes of body size, muscle mass, or nutritional status, or are non- or non-. According to the National Kidney Foundation, irrespective of diagnosis, the stage of the disease is based on the level of kidney function: Stage Description GFR(mL/min/1.73 m(2)) 1 Kidney damage with normal or decreased GFR 90 2 Kidney damage with mild decrease in GFR 60-89 3 Moderate decrease in GFR 30-59 4 Severe decrease in GFR 15-29 5 Kidney failure <15 (or dialysis) 10 Troponin-I testing on Plasma Separator Tubes (PST) has a known false positive rate of 0.20-0.40%. All positive troponins reflex immediately to secondary confirmatory testing. Using the MiniVax 800 Access Immunoassay systems, the 99th percentile upper reference limit was demonstrated to be < 0.03 ng/mL. 11 SEE RESULT BELOW Name: ZELDA BRYANT : [address]: Delmi Kemp MD Acct: [id number] Unit: [id number] AGE: 77 Location: [place] [address] Re08/01/18 SEX: M Status: ADM IN SPEC: [id number] ELADIA: 07/31/[address] [facility] [address]: Dawson Puckett MD REQ: [id number] RECD: 07/31/18 STATUS: ALYSSA CABRERA DR: Jamie Cha MD _ SOURCE: BLOOD,VENO [facility]ES[facility]: ORDERED: Blood Cult COMMENTS: R HAND Procedure Result Reported Site Aerobic Culture Bottle Final 08/05/18- 8 ML No Growth Day 5 Anaerobic Culture Bottle Final 08/05/18- 2308 ML No Growth Day 5 * ML - Main Lab . END OF REPORT DEPARTMENT OF PATHOLOGY, [address] [place] [address] Trino Corrales M.D. Director [facility] # [id number] Procedures Date Code Description Status 11/04/2018 38689 Dxa Bone Density Study One Or More Sites Axial Skeleton Completed 08/27/2015 62924394 Colonoscopy Completed 08/27/2010 [id number] Colonoscopy Completed 12/02/2005 [id number] Colonoscopy Completed Medical Devices Description No Information Available Encounters Type Date Location Provider Dx Diagnosis Office Visit 01/05/2019 [facility] Office Jamie Burnham E11.42 Type 2 diabetes 3:40p Franco Cha mellitus with diabetic polyneuropathy K21.9 Gastro-esophageal reflux disease without esophagitis I25.10 Athscl heart disease of [place] coronary artery w/o ang pctrs K59.09 Other constipation Office Visit 11/07/2018 3:00p Main Office Jamie Cha M81.0 Age- related M.D. osteoporosis w/o current pathological fracture E11.42 Type 2 diabetes mellitus with diabetic polyneuropathy I48.0 Paroxysmal atrial fibrillation I25.10 Athscl heart disease of [place] coronary artery w/o ang pctrs I80.202 Phlbts and thombophlb of unsp deep vessels of l low extrem Office Visit 09/05/2018 3:00p Main Office Jamie Burnham E11.42 Type 2 glenn Cha M.D. mellitus with diabetic polyneuropathy I48.0 Paroxysmal atrial fibrillation I73.89 Other specified peripheral vascular diseases K21.9 Gastro-esophageal reflux disease without esophagitis N40.0 Benign prostatic hyperplasia without lower urinry tract symp E78.49 Other hyperlipidemia Assessments Date Code Description Provider 01/05/2019 E11.42 Type 2 diabetes mellitus with diabetic Jamie Cha M.D. polyneuropathy 01/05/2019 K21.9 Gastro-esophageal reflux disease without Jamie Cha M.D. esophagitis 01/05/2019 I25.10 Atherosclerotic heart disease of [place] Jamie Cha M.D. coronary artery without angina pectoris 01/05/2019 K59.09 Other constipation Jamie Cha M.D. 11/07/2018 M81.0 Age-related osteoporosis without current Jamie Cha M.D. pathological fractu 11/07/2018 E11.42 Type 2 diabetes mellitus with diabetic Jamie Cha M.D. polyneuropathy 11/07/2018 I48.0 Paroxysmal atrial fibrillation Jamie Cha M.D. 11/07/2018 I25.10 Atherosclerotic heart disease of [place] Jamie Cha M.D. coronary artery with 11/07/2018 I80.202 Phlebitis and thrombophlebitis of Jamie Cha M.D. unspecified deep vessels o 11/04/2018 M81.0 Age-related osteoporosis without current Jamie Cha M.D. pathological fracture 11/04/2018 K21.9 Gastro-esophageal reflux disease without Jamie Cha M.D. esophagitis 09/05/2018 E11.42 Type 2 diabetes mellitus with diabetic Jamie Cha M.D. polyneuropathy 09/05/2018 I48.0 Paroxysmal atrial fibrillation Jamie Cha M.D. 09/05/2018 I73.89 Other specified peripheral vascular Jamie Cha M.D. diseases 09/05/2018 K21.9 Gastro-esophageal reflux disease without Jamie Cha M.D. esophagitis 09/05/2018 N40.0 Benign prostatic hyperplasia without lower Jamie Cha M.D. urinary tract sym 09/05/2018 E78.49 Other hyperlipidemia Jamie Cha M.D. Plan of Treatment 01/05/2019 - Jamie Cha M.D.E11.42 Type 2 diabetes mellitus with diabetic polyneuropathyComments:to continue present dose of Levemir and glipizide, and gabapentin, morphine, ifxemeyqhF11.9 Gastro-esophageal reflux disease without esophagitisComments:needs follow up with Dr Carlisle in near mdqwnbG15.10 Atherosclerotic heart disease of [place] coronary artery without angina pectorisComments:continue present medication,no new symptoms of angina , to continue care with Dr SinclairK59.09 Other constipationComments:says constipation is controlled on current medicationAllComments:Medication Management Patient Understands medications he's taking? Yes No Are there Barriersto Adherence? Yes No Has the patient been asked about herbal supplements and therapies, and OTC meds? Yes NoFollow up:2 months Functional Status Description No Information Available Mental Status Description No Information Available Referrals Description No Information Available
--- OUTSIDE RECORDS SUMMARY | 2019-01-22 12:53 | XMS REPORT | Continuity of Care Document ---
:1940 External Reference #:[id number] Author Name Darren Sinclair M.D. (transmitted by agent of provider Regina Pugh) Address [address] [address] Care Team Providers Name Role Phone Jamie Cha MD - Family Medicine Care Team Information Wind Turbine Design Engineer [phone] Higinio Blum MD - Family Medicine Care Team Information Wind Turbine Design Engineer [phone] Problems Active Problems Provider Date Coronary arteriosclerosis [...] Start: Unknown End: Patient is a former Quit smoking 2008 Unknown smoker Recreational Drug Use Denies Drug Use Tobacco Use Start: Unknown Heavy tobacco smoker (more than 10 cigarettes/day) Smoking Status Reviewed: 01/10/19 Heavy tobacco smoker (more than 10 cigarettes/day) Exercise Type/Frequency Exercises sporadically Allergies, Adverse Reactions, Alerts Active Allergies Reaction Severity Comments Date Banana Concentrate 01/23/2007 Nuts walnuts 01/23/2007 Cipro Severe 06/27/2018 Inactive Allergies Keflex stomach pain 06/29/2011 Medications Active Medications SIG Qnty Indications Ordering Date Provider Gabapentin 2 po tid 540caps Landry Richmond 09/22/2018 300mg Capsules Franco Crespo Levemir Flextouch inject 30 units 20units Other Ordering 06/26/2018 in in the Provider 100Unit/ML Solution morning and 32 Pen-Inject in at night Cyclobenzaprine HCL take one tablet 90tabs Abdirahman Mullins, 01/03/2017 10mg by mouth three M.DSujey Tablets times a day as needed for spasms Amiodarone HCL 1 po bid 60tabs Darren Richmond 03/03/2009 200mg Franco Sinclair Tablets Nitrostat one sl q5min up 25tabs Navdeep Burnham 02/21/2007 0.4mg Tablets Sub to 3 doses as Franco Brownlee needed Combivent 2 Puffs PO prn Darren Richmond 01/19/2007 Aerosol Franco Sinclair Oxycodone HCL 1 [...] mouth twice Unknown 5mg Tablets a day Fenofibrate 1 by mouth every Unknown 145mg Tablets day Finasteride 1 by mouth every Unknown 5mg Tablets day Tylenol take 1-2 as Unknown 325mg Tablets needed every 4 hours Afrin Nasal [place] 1 spray twice Unknown 0.05% daily as needed Solution Ondansetron dissolve one Unknown 4mg Tablets tablet orally Dispers every 8 hours as needed for nausea. Celecoxib 1 by mouth every Unknown 200mg Capsules day Eliquis 1 by mouth twice Unknown 5mg Tablets a day Carafate 1 gram 2x daily Unknown 1gm Tablets Dok take two tablets Unknown 100mg Tablets by mouth at bedtime Levothyroxine Sodium 1 by mouth every Unknown 250mcg day Tablets Morphine Sulfate ER 1 by mouth every Unknown 30mg 12 hours Caps ER 24HR Methenamine Mandelate 1 tab po bid Unknown 1gm Tablets Ammonium Lactate apply to Unknown 12% Lotion dry/itchy skin as needed Miralax 17 gm every day Unknown 3350NF Powder mixed w/ 8 oz water/juice prn Blink Tears Lubricating once a day as Unknown Eye Drops needed 0.25% Gel Trental 1 tablet by Unknown 400mg Tablets ER mouth twice daily Restasis one gtts ou bid 2units Unknown 0.05% Emulsion Lasix 1 by mouth every 60tabs Qutaybeh SSujey 20mg Tablets day Franco Sinclair Protonix 1 po bid 90tabs Unknown 40mg Tablets DR Brenner 1 po tid prn 30tabs Unknown 1mg Tablets Medications Administered in Office Medication SIG Qnty Indications Ordering Provider Date Depomedrol 40MG Jessica Contreras M.D. 09/24/2016 Injection Immunizations Description No Information Available Vital Signs Date Vital Result Comment 01/10/2019 4:09pm Height 74 inches 6'2" Weight 237.38 lb with shoes Heart Rate 72 /min BP Systolic 144 mmHg Rue (regular cuff) BP Diastolic 64 mmHg Rue (regular cuff) BP Systolic Sitting 148 mmHg BP Diastolic Sitting 70 mmHg BMI (Body Mass Index) 30.5 kg/m2 Ejection Fraction 60-65% Echocardiogram 07/20/18 09/22/2018 4:02pm Height 74 inches 6'2" Weight 246.00 lb Heart Rate 69 /min BP Systolic Sitting 102 mmHg reg adult cuff left arm BP Diastolic Sitting 70 mmHg reg adult cuff left arm O2 % BldC Oximetry 95 % BMI (Body Mass Index) 31.6 kg/m2 Results Description No Information Available Procedures Date Code Description Status 07/20/2018 75568 ECHO Transthoracic, Real-Time 2D With Doppler And Color Completed Flow 07/20/2018 62518 ECHO Transthoracic, Real-Time 2D With Doppler And Color Completed Flow Medical Devices Description No Information Available Encounters Type Date Location Provider Dx Diagnosis Office Visit 12/25/2018 [facility] K59.00 Constipation, 9:56a Assoc[facility] [place], unspecified Hospitalists ROOM DESIGNER K52.9 Noninfective gastroenteritis and colitis, unspecified R53.1 Weakness 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 blood loss (chronic) Office Visit 12/24/2018 [facility] Vicki K52.9 Noninfective 9:55a Assoc[facility] gastroenteritis and Hospitalists [place], ROOM DESIGNER colitis, unspecified 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 N18.9 Chronic kidney disease, unspecified Office Visit 12/23/2018 [facility] Amie Jhonatan, K52.9 Noninfective 9:55a Assoc, ROOM DESIGNER gastroenteritis and Hospitalists colitis, unspecified R53.1 Weakness E11.22 Type 2 diabetes mellitus w diabetic chronic kidney disease N18.9 Chronic kidney disease, unspecified 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 blood loss (chronic) Office Visit 12/22/2018 [facility] Amie Jhonatan, K59.00 Constipation, 9:54a Assoc, ROOM DESIGNER unspecified Hospitalists K52.9 Noninfective gastroenteritis and colitis, unspecified R53.1 Weakness 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 blood loss (chronic) Office Visit 12/21/2018 [facility] Lorene K59.00 Constipation, 9:54a jocelin Reynoso MD unspecified Hospitalists K52.9 Noninfective gastroenteritis and colitis, unspecified R53.1 Weakness R29.6 Repeated falls Office Visit 09/22/2018 [facility] Landry Richmond G25.0 Essential 3:45p Clinic Franco Crespo tremor G62.9 Polyneuropathy, unspecified Office Visit 08/12/2018 [facility] Amie 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, MARCELLA syndrome w/o Hospitalists complications of l low extrem L03.116 Cellulitis of left lower limb Office Visit 08/11/2018 [facility] Jazmin 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 and thombos Hospitalists unsp deep veins of l low extrem R50.9 Fever, unspecified Office Visit 08/05/2018 9:09a [facility] Delmi Kemp, I82.402 Acute embolism jocelin Reynoso M.D. and thomb[place] Hospitalists unsp deep veins of l low extrem R50.9 Fever, unspecified E11.69 Type 2 diabetes mellitus with other specified complication Office Visit 08/04/2018 9:09a [facility] Phu I82.402 Acute embolism Assjocelin woods PA and [facility] Hospitalists unsp deep veins of l low extrem E11.628 Type 2 diabetes mellitus with other skin complications I73.9 Peripheral vascular disease, unspecified R53.81 Other malaise Office Visit 08/03/2018 9:08a [facility] Nereyda I82.402 Acute embolism Assoc,jocelin Curtis NP and [facility] Hospitalists unsp deep veins of l low extrem E11.628 Type 2 diabetes mellitus with other skin complications Office Visit 08/02/2018 9:08a [facility] Grayson Blanc I82.402 Acute embolism Assoc,jocelin Ramirez MD and [facility] Hospitalists unsp deep veins of l low extrem E11.9 Type 2 diabetes mellitus without complications I48.91 Unspecified atrial fibrillation Office Visit 08/01/2018 9:07a [facility] Alisa N17.9 Acute kidney Assoc,pc Root, DO failure, Hospitalists unspecified R50.9 Fever, unspecified E11.9 Type 2 diabetes mellitus without complications Assessments Date Code Description Provider 01/10/2019 I10 Essential (primary) hypertension Darren Sinclair M.D. 01/10/2019 I48.0 Paroxysmal atrial fibrillation Darren Sinclair M.D. 01/10/2019 E66.9 Obesity, unspecified Darren Sinclair M.D. 01/10/2019 G47.33 Obstructive sleep apnea (adult) Darren Sinclair M.D. (pediatric) 01/10/2019 Z98.61 Coronary angioplasty status Darren Sinclair M.D. 01/10/2019 I25.10 Atherosclerotic heart disease of Darren Sinclair M.D. [place] coronary artery without angina pectoris 01/10/2019 I77.819 Aortic ectasia, unspecified site Darren Sinclair M.D. 12/25/2018 K59.00 Constipation, unspecified Vicki Ludwig NP 12/25/2018 K52.9 Noninfective gastroenteritis and Vicki Ludwig NP colitis, unspecified 12/25/2018 R53.1 Weakness Vicki Ludwig NP 12/25/2018 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 Vicki Ludwig NP blood loss (chronic) 12/24/2018 K52.9 Noninfective gastroenteritis and Vicki Landin Doto, ROOM DESIGNER colitis, unspecified 12/24/2018 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 Vicki Landin Doto, ROOM DESIGNER blood loss (chronic) 12/24/2018 E11.22 Type 2 diabetes mellitus with diabetic Vicki Landin Doto, ROOM DESIGNER chronic kidney disease 12/24/2018 N18.9 Chronic kidney disease, unspecified Vicki Landin Doto, ROOM DESIGNER 12/23/2018 K52.9 Noninfective gastroenteritis and Amie Jhonatan, ROOM DESIGNER colitis, unspecified 12/23/2018 R53.1 Weakness Amie Jhonatan, ROOM DESIGNER 12/23/2018 E11.22 Type 2 diabetes mellitus with diabetic Amie Jhonatan, ROOM DESIGNER chronic kidney disease 12/23/2018 N18.9 Chronic kidney disease, unspecified Amie Jhonatan, ROOM DESIGNER 12/23/2018 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 Amei Jhonatan, ROOM DESIGNER blood loss (chronic) 12/22/2018 K59.00 Constipation, unspecified Amie Jhonatan, ROOM DESIGNER 12/22/2018 K52.9 Noninfective gastroenteritis and Amie Jhonatan, ROOM DESIGNER colitis, unspecified 12/22/2018 R53.1 Weakness Amie Jhonatan, ROOM DESIGNER 12/22/2018 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 Amie Jhonatan, ROOM DESIGNER blood loss (chronic) 12/21/2018 K59.00 Constipation, unspecified Lorene Winters MD 12/21/2018 K52.9 Noninfective gastroenteritis and Lorene Winters MD colitis, unspecified 12/21/2018 R53.1 Weakness Lorene Winters MD 12/21/2018 R29.6 Repeated falls Lorene Winters MD 09/22/2018 G25.0 Essential tremor Landry Crespo M.D. 09/22/2018 G62.9 Polyneuropathy, unspecified Landry Crespo M.D. 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 Jazmin O'sp, PA-C complications of l low extrem 08/11/2018 L03.116 Cellulitis of left lower limb Jazmin O'sp, PA-C 08/11/2018 I82.402 Acute embolism and thrombosis of Jazmin O'sp, PA-C unspecified deep veins of l [...] disease, RACQUEL Whittaker unspecified 08/04/2018 R53.81 Other malaise RACQUEL Whittaker 08/03/2018 I82.402 Acute embolism and thrombosis of Nereyda Curtis MARCELLA unspecified deep veins of l 08/03/2018 E11.628 Type 2 diabetes mellitus with other Nereyda Ever, ROOM DESIGNER skin complications 08/02/2018 I82.402 Acute embolism and thrombosis of Grayson Ramirze MD unspecified deep veins of l 08/02/2018 [...] Atherosclerotic heart disease of Traveling ECHO 1 [place] coronary artery with 07/20/2018 I10 Essential (primary) hypertension Traveling ECHO 1 07/20/2018 I48.0 Paroxysmal atrial fibrillation Traveling ECHO 1 Plan of Treatment Future Appointment(s):09/26/2019 3:45 pm - Landry Crespo M.D. at [facility]01/10/2019 - Darren Sinclair M.D.I10 Essential (primary) teacppbkxareU80.0 Paroxysmal atrial kdbbfgxqrkkpY56.9 Obesity, wiengtcliagL89.33 Obstructive sleep apnea (adult) (pediatric)Z98.61 Coronary angioplasty dyehnyR97.10 Atherosclerotic heart disease of [place] coronary artery without angina pectorisFollow up:9 months ovI77.819 Aortic ectasia, unspecified siteNew Orders:Echocardiogram, Ordered: 01/10/19 Functional Status Description No Information Available Mental Status Description No Information Available Referrals Description No Information Available
[2019-01-22] MEDS ORDERED: Clindamycin CAP* 150 MG PO ONE (14:57)
--- NOTE | 2019-01-22 15:17 | ED ---
Skin Complaint - HPI Summary HPI Summary: Pt is a 78 y/o M presenting to the ED With a chief complaint of worsening wounds on his bilateral LE. He has a visiting nurse that comes multiple times a week, and today she thought that the wounds looked worse, and he was advised to come to the ED. The pt is on Eliquis, and notes he recently fell and broke his shoulder. He denies fever or chills. He has wound care MWF and a physician who sees him every other week. - History of Current Complaint Chief Complaint: EDExtremityLower Time Seen by Provider: 01/22/19 14:20 Stated Complaint: INFECTED WOUNDS ON BOTH FEET AND SHOULDER PAIN Hx Obtained From: Patient Onset/Duration: Started Days Ago, Still Present Skin Exposure Onset/Duration: Days Ago Timing: Constant, Lasting Days Onset Severity: Moderate Current Severity: Moderate Pain Intensity: 5 Pain Scale Used: 0-10 Numeric Skin Location: Other: - bilateral LE Character: Pain, Redness Aggravating Symptom(s): Nothing Alleviating Symptom(s): Nothing Associated Signs & Symptoms: Negative - Additional Pertinent History Primary Care Physician: [id number] - Allergy/Home Medications Allergies/Adverse Reactions: Allergies Allergy/AdvReac Type Severity Reaction Status Date / Time banana Allergy See Comment Verified 01/22/19 12:46 cephalexin [From Keflex] Allergy GI Upset Verified 01/22/19 12:46 walnut Allergy See Comment Verified 01/22/19 12:46 ciprofloxacin AdvReac GI Upset Verified 01/22/19 12:46 PMH/Surg Hx/FS Hx/Imm Hx Previously Healthy: Yes Endocrine/Hematology History: Reports: Hx Anticoagulant Therapy, Hx Diabetes - NIDDM, Hx Thyroid Disease Denies: Hx Blood Disorders, Hx Blood Transfusions, Hx Bone Marrow Disease, Hx Sickle Cell Disease Cardiovascular History: Reports: Hx Angina, Hx Angioplasty, Hx Coronary Artery Disease, Hx Hypercholesterolemia, Hx Hypertension, Other Cardiovascular Problems /Disorders - HISTORY OF ATRIAL FIBRILLARION Denies: Hx Congestive Heart Failure, Hx Myocardial Infarction, Hx Pacemaker/ ICD, Hx Valvular Heart Disease Respiratory History: Reports: Hx Chronic Obstructive Pulmonary Disease (COPD), Hx Sleep Apnea Denies: Hx Asthma GI History: Reports: Hx Gall Bladder Disease - removed, Hx Gastroesophageal Reflux Disease, Hx Hiatal Hernia, Hx Ulcer, Other GI Disorders - Barretts esophagus History: Denies: Hx Renal Disease Musculoskeletal History: Reports: Hx Arthritis - ARTHRITIS, Hx Rheumatoid Arthritis, Hx Back Problems, Hx Osteoporosis Sensory History: Reports: Hx Cataracts - RIGHT EYE, Hx Contacts or Glasses, Hx Eye Injury, Hx Vision Problem Denies: Hx Eye Prosthesis, Hx Glaucoma, Hx Legally Blind, Hx Macular Degeneration, Hx Deafness, Hx Hearing Aid, Hx Hearing Problem, Other Sensory Impairments Opthamlomology History: Reports: Hx Cataracts - RIGHT EYE, Hx Contacts or Glasses, Hx Eye Injury, Hx Vision Problem Denies: Hx Eye Prosthesis, Hx Glaucoma, Hx Legally Blind, Hx Macular Degeneration, Other Sensory Impairments Neurological History: Reports: Other Neuro Impairments/Disorders - diabetic neuropathy (feet) Denies: Hx Dementia, Hx Developmental Delay, Hx Headaches, Hx Migraine, Hx Nerve Disease, Hx Seizures, Hx Spinal Cord Injury, Hx Transient Ischemic Attacks (TIA) Psychiatric History: Reports: Hx Anxiety Denies: Hx Panic Disorder - Cancer History Cancer Type, 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 FEET - [place]. NASAL - CLEAR THE PASSAGE. LEFT 5TH TOE AMPUTATION Hx Anesthesia Reactions: No - Immunization History Date of Tetanus Vaccine: Unknown Infectious Disease History: No Infectious Disease History: Reports: Hx Clostridium Difficile - 2017, Hx Hepatitis - CURED Denies: Hx Human Immunodeficiency Virus (HIV), Hx of Known/Suspected MRSA, Hx Shingles, Hx Tuberculosis, Hx Known/Suspected VRE, Hx Known/Suspected VRSA, History Other Infectious Disease, Traveled Outside the [place] in Last 30 Days - Family History Known Family History: Positive: Diabetes, Other - alzheimer's and colon CA - Social History Alcohol Use: Rare Hx Substance Use: No Substance Use Type: Reports: None Hx Tobacco Use: Yes Smoking Status (MU): Former Smoker Type: Cigarettes Amount Used/How Often: 1.5ppd Length of Time of Smoking/Using Tobacco: 50 years Have You Smoked in the Last Year: No Review of Systems Negative: Fever, Chills Positive: Other - chronic wounds to bilateral LE All Other Systems Reviewed And Are Negative: Yes Physical Exam - Summary Physical Exam Summary: Constitutional: Well-developed, Well-nourished, Alert. (-) Distressed Skin: Warm, Dry. Severe distal vascular insufficiency on the bilateral LE. There is hyperpigmentation with diffuse chronic wounds, namely on the lateral aspect of the L side of the L foot which has a central area of granulation tissue. It is hyperemic and warm, but non-tender. Ulcer on L foot is not proximal to toe amputation. 10cm proximal to the lateral malleolus on the R foot , there is a 6cm oval-shaped ulceration with central scab formation. There is some erythema. No active bleeding or discharge. Granulation tissue around the edge of the wounds that looks healthy. It is somewhat warm and somewhat tender. There is also a 4cm oval shaped chronic wound with granulation tissue overlying the R lateral malleolus. It is warm. There is no discharge or bleeding. There is also a continuous wound that goes from the lateral aspect of the R foot, wraps underneath the foot, encompasses R heel, and is more tender and warmer. There is healing ecchymosis to the upper R chest wall, R shoulder, and R bicep that look like old contusions. HENT: Normocephalic; Atraumatic Eyes: Conjunctiva normal Neck: Musculoskeletal ROM normal neck. (-) JVD, (-) Stridor, (-) Tracheal deviation Cardio: Rhythm regular, rate normal, Heart sounds normal; Intact distal pulses; The pedal pulses are 2+ and symmetric. Radial pulses are 2+ and symmetric. Pulmonary/Chest wall: Effort normal. (-) Respiratory distress, (-) Wheezes, (-) Rales Abd: Soft, (-) tenderness, (-) Distension, (-) Guarding, (-) Rebound Musculoskeletal: (-) Edema. Healed amputation to L toe. Neuro: Alert, Oriented x3 Psych: Mood and affect Normal Triage Information Reviewed: Yes Vital Signs On Initial Exam: Initial Vitals Temp Pulse Resp BP Pulse Ox 97.3 F 66 18 148/80 97 01/22/19 12:42 01/22/19 12:42 01/22/19 12:42 01/22/19 12:42 01/22/19 12:42 Vital Signs Reviewed: Yes Procedures - Sedation Patient Received Moderate/Deep Sedation with Procedure: No Diagnostics - Vital Signs Vital Signs Temp Pulse Resp BP Pulse Ox 01/22/19 12:42 97.3 F 66 18 148/80 97 - Laboratory Lab Statement: Any lab studies that have been ordered have been reviewed, and results considered in the medical decision making process. Course/Dx - Course Course Of Treatment: Pt is a 78 y/o M presenting to the ED With a chief complaint of worsening wounds on his bilateral LE. He has a visiting nurse that comes multiple times a week, and today she thought that the wounds looked worse , and he was advised to come to the ED. The pt is on Eliquis, and notes he recently fell and broke his shoulder. He denies fever or chills. He has wound care MWF and a physician who sees him every other week. On exam, pt has severe distal vascular insufficiency on the bilateral LE. There is hyperpigmentation with diffuse chronic wounds, namely on the lateral aspect of the L side of the L foot which has a central area of granulation tissue. It is hyperemic and warm , but non-tender. Ulcer on L foot is not proximal to toe amputation. 10cm proximal to the lateral malleolus on the R foot, there is a 6cm oval-shaped ulceration with central scab formation. There is some erythema. No active bleeding or discharge. Granulation tissue around the edge of the wounds that looks healthy. It is somewhat warm and somewhat tender. There is also a 4cm oval shaped chronic wound with granulation tissue overlying the R lateral malleolus. It is warm. There is no discharge or bleeding. There is also a continuous wound that goes from the lateral aspect of the R foot, wraps underneath the foot, encompasses R heel, and is more tender and warmer. There is healing ecchymosis to the upper R chest wall, R shoulder, and R bicep that look like old contusions. He will be d/c'ed on Clindamycin with dx of chronic wound and mild cellulitis. - Diagnoses Provider Diagnoses: Chronic wound of extremity, Cellulitis Discharge ED - Sign-Out/Discharge Documenting (check all that apply): Patient Departure - Discharge Plan Condition: Good Disposition: HOME Prescriptions: Clindamycin Cap(NF) [Clindamycin Cap 300 mg Cap(NF)] 300 mg PO QID 7 Days #27 cap Patient Education Materials: Chronic Wounds (ED) Referrals: Jamie Cha MD [Primary Care Provider] - - Billing Disposition and Condition Condition: GOOD Disposition: Home - Attestation Statements Document Initiated by Scribe: Yes Documenting Scribe: Alisa Webster Provider For Whom Scribe is Documenting (Include Credential): Billy Birch MD. Scribe Attestation: Alisa Berry, scribed for Billy Birch MD. on 01/22/19 at 1852. Scribe Documentation Reviewed: Yes Provider Attestation: The documentation as recorded by the scribe, Alisa Webster accurately reflects the service I personally performed and the decisions made by me, Billy Birch MD. Status of Scribe Document: Viewed
[2019-01-22 16:20] VITALS: BP 132/63
== END 2019-01-22 15:40 | disposition home or self-care (01) ==
LOC: ED 12:37
DX: L03.116 Cellulitis of left lower limb (principal); L03.115 Cellulitis of right lower limb; E11.9 Type 2 diabetes mellitus without complications; E07.9 Disorder of thyroid, unspecified; I25.10 Atherosclerotic heart disease of native coronary artery without angina pectoris; E78.00 Pure hypercholesterolemia, unspecified; I10 Essential (primary) hypertension; I48.91 Unspecified atrial fibrillation; J44.9 Chronic obstructive pulmonary disease, unspecified; K21.9 Gastro-esophageal reflux disease without esophagitis; F41.9 Anxiety disorder, unspecified; Z87.891 Personal history of nicotine dependence; Z85.01 Personal history of malignant neoplasm of esophagus; Z95.5 Presence of coronary angioplasty implant and graft; Z90.49 Acquired absence of other specified parts of digestive tract; Z96.642 Presence of left artificial hip joint; Z79.01 Long term (current) use of anticoagulants; Z79.4 Long term (current) use of insulin; Z79.899 Other long term (current) drug therapy
CPT/HCPCS: 99284; A9270-GY

== ENCOUNTER 2019-04-11 12:51 | Emergency (ER) | payer MEDICARE ==
[2019-04-11] MEDS ORDERED: Clindamycin 600 MG/D5W BAG(*) 600 MG/50 ML BAG IV ONE (13:33)
[2019-04-11] MEDS ORDERED: NS 0.9% 1000 ML** 1,000 ML IV ONE (13:33)
[2019-04-11 13:55] LABS: ABS Basophils 0.1 10^3/ul (0-0.2); ABS Eosinophils 0.1 10^3/ul (0-0.6); ABS Lymphocytes 0.6 10^3/ul (1.0-4.8); ABS Monocytes 0.4 10^3/ul (0-0.8); ABS Neutrophils 4.7 10^3/ul (1.5-7.7); Eosinophil % 1.6 %; Hematocrit 36 % (42-52); Hemoglobin 11.7 g/dL (14.0-18.0); Lymphocyte % 9.5 %; Mean Corpuscular HGB Conc 33 g/dL (31-36); Mean Corpuscular Hemoglobin 28 pg (27-31); Mean Corpuscular Volume 87 fL (80-94); Mean Platelet Volume 6.9 fL (7.4-10.4); Platelet Count 259 10^3/uL (150-450); Red Blood Count 4.12 10^6 /uL (4.18-5.48); Red Cell Distribution Width 15 % (10-15); White Blood Count 5.8 10^3/uL (3.5-10.8)
[2019-04-11 14:11] LABS: Albumin 3.6 g/dL (3.2-5.2); Albumin/Globulin Ratio 1.2 (1-3); BUN/Creatinine Ratio 19.2 (8-20); CRP High Sensitivity 16.03 mg/L (<2.00); Calcium 9.1 mg/dL (8.6-10.3); EGFR African American 64.8 (>60); EGFR Non-African American 53.5 (>60); Potassium 3.9 mmol/L (3.5-5.0); Total Bilirubin 0.4 mg/dL (0.2-1.0); Total Protein 6.6 g/dL (6.4-8.9)
--- NOTE | 2019-04-11 14:22 | ED ---
Skin Complaint - HPI Summary HPI Summary: This patient is a 78-year-old male with a history of chronic wounds/ulcers being taken care of by the wound care clinic presenting to the ED with concern for worsening infection. Patient states his visiting nurse was concerned for worsening infection to his right leg. Patient was recently diagnosed with MRSA and was given a prescription for doxycycline. He has been taking this 2 days. He states these wounds are chronic, however are intermittent in terms of coming and going in severity. Right heel has a 3 x 2 cm ulceration, right lateral warren 5 x 3 with erythema and eschar noted. R lateral malleolus 3x2 cm. Pt denies any fevers, sweats or chills. Continues to eat and drink okay. Denies any nausea, vomiting, diarrhea. Patient has a follow-up to wound care clinic on Tuesday, 2 days from now. He has visiting nurse service every other day as well. - History of Current Complaint Chief Complaint: EDExtremityLower Time Seen by Provider: 04/11/19 13:05 Stated Complaint: POSS MRSA PER PT Hx Obtained From: Patient Onset/Duration: Started Days Ago Skin Exposure Onset/Duration: Days Ago Timing: Constant Onset Severity: Mild Current Severity: Mild Pain Intensity: 5 Pain Scale Used: 0-10 Numeric Skin Location: Leg, Foot Aggravating Symptom(s): Nothing Alleviating Symptom(s): Nothing Associated Signs & Symptoms: Negative - Additional Pertinent History Primary Care Physician: [id number] - Allergy/Home Medications Allergies/Adverse Reactions: Allergies Allergy/AdvReac Type Severity Reaction Status Date / Time banana Allergy See Comment Verified 04/11/19 13:04 cephalexin [From Keflex] Allergy GI Upset Verified 04/11/19 13:04 walnut Allergy See Comment Verified 04/11/19 13:04 ciprofloxacin AdvReac GI Upset Verified 04/11/19 13:04 PMH/Surg Hx/FS Hx/Imm Hx Previously Healthy: Yes Endocrine/Hematology History: Reports: Hx Anticoagulant Therapy, Hx Diabetes - NIDDM, Hx Thyroid Disease Denies: Hx Blood Disorders, Hx Blood Transfusions, Hx Bone Marrow Disease, Hx Sickle Cell Disease Cardiovascular History: Reports: Hx Angina, Hx Angioplasty, Hx Coronary Artery Disease, Hx Hypercholesterolemia, Hx Hypertension, Other Cardiovascular Problems /Disorders - HISTORY OF ATRIAL FIBRILLARION Denies: Hx Congestive Heart Failure, Hx Myocardial Infarction, Hx Pacemaker/ ICD, Hx Valvular Heart Disease Respiratory History: Reports: Hx Chronic Obstructive Pulmonary Disease (COPD), Hx Sleep Apnea Denies: Hx Asthma GI History: Reports: Hx Gall Bladder Disease - removed, Hx Gastroesophageal Reflux Disease, Hx Hiatal Hernia, Hx Ulcer, Other GI Disorders - Barretts esophagus History: Denies: Hx Renal Disease Musculoskeletal History: Reports: Hx Arthritis - ARTHRITIS, Hx Rheumatoid Arthritis, Hx Back Problems, Hx Osteoporosis Sensory History: Reports: Hx Cataracts - RIGHT EYE, Hx Contacts or Glasses, Hx Eye Injury, Hx Vision Problem Denies: Hx Eye Prosthesis, Hx Glaucoma, Hx Legally Blind, Hx Macular Degeneration, Hx Deafness, Hx Hearing Aid, Hx Hearing Problem, Other Sensory Impairments Opthamlomology History: Reports: Hx Cataracts - RIGHT EYE, Hx Contacts or Glasses, Hx Eye Injury, Hx Vision Problem Denies: Hx Eye Prosthesis, Hx Glaucoma, Hx Legally Blind, Hx Macular Degeneration, Other Sensory Impairments Neurological History: Reports: Other Neuro Impairments/Disorders - diabetic neuropathy (feet) Denies: Hx Dementia, Hx Developmental Delay, Hx Headaches, Hx Migraine, Hx Nerve Disease, Hx Seizures, Hx Spinal Cord Injury, Hx Transient Ischemic Attacks (TIA) Psychiatric History: Reports: Hx Anxiety Denies: Hx Panic Disorder - Cancer History Cancer Type, 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 FEET - [place]. NASAL - CLEAR THE PASSAGE. LEFT 5TH TOE AMPUTATION Hx Anesthesia Reactions: No - Immunization History Date of Tetanus Vaccine: Unknown Hx Pertussis Vaccination: No Immunizations Up to Date: Yes Infectious Disease History: Yes Infectious Disease History: Reports: Hx Clostridium Difficile - 2017, Hx Hepatitis - CURED Denies: Hx Human Immunodeficiency Virus (HIV), Hx of Known/Suspected MRSA, Hx Shingles, Hx Tuberculosis, Hx Known/Suspected VRE, Hx Known/Suspected VRSA, History Other Infectious Disease, Traveled Outside the [place] in Last 30 Days - Family History Known Family History: Positive: Diabetes, Other - alzheimer's and colon CA - Social History Occupation: Unemployed Lives: Alone Alcohol Use: Rare Hx Substance Use: No Substance Use Type: Reports: None Hx Tobacco Use: Yes Smoking Status (MU): Former Smoker Type: Cigarettes Amount Used/How Often: 1.5ppd Length of Time of Smoking/Using Tobacco: 50 years Have You Smoked in the Last Year: No Review of Systems Negative: Fever, Chills, Fatigue, Skin Diaphoresis Negative: Palpitations, Chest Pain Negative: Shortness Of Breath, Cough Genitourinary: Negative Positive: no symptoms reported, see HPI Musculoskeletal: Negative Skin: Negative All Other Systems Reviewed And Are Negative: Yes Physical Exam Triage Information Reviewed: Yes Vital Signs On Initial Exam: Initial Vitals Temp Pulse Resp BP Pulse Ox 97.6 F 68 16 154/59 95 04/11/19 12:58 04/11/19 12:58 04/11/19 12:58 04/11/19 12:58 04/11/19 12:58 Vital Signs Reviewed: Yes Appearance: Positive: Well-Appearing, Well-Nourished Skin: Positive: Warm, Skin Color Reflects Adequate Perfusion, Other - ulcer to the R heel, R lateral leg and R lateral malleoli with eschar and slight area surrounding erythema measuring .5cm Head/Face: Positive: Normal Head/Face Inspection Eyes: Positive: EOMI, KELLY, Conjunctiva Clear Neck: Positive: Supple, No Lymphadenopathy Respiratory/Lung Sounds: Positive: Clear to Auscultation, Breath Sounds Present Cardiovascular: Positive: RRR Musculoskeletal: Positive: Strength/ROM Intact Neurological: Positive: Speech Normal Psychiatric: Positive: Affect/Mood Appropriate AVPU Assessment: Alert Procedures - Sedation Patient Received Moderate/Deep Sedation with Procedure: No Diagnostics - Vital Signs Vital Signs Temp Pulse Resp BP Pulse Ox 04/11/19 12:58 97.6 F 68 16 154/59 95 - Laboratory Lab Results: Lab Results 04/11/19 04/11/19 Range/Units 13:45 13:45 WBC 5.8 (3.5-10.8) 10^3/uL RBC 4.12 L (4.18-5.48) 10^6 /uL Hgb 11.7 L (14.0-18.0) g/dL Hct 36 L (42-52) % MCV 87 (80-94) fL MCH 28 (27-31) pg MCHC 33 (31-36) g/dL RDW 15 (10-15) % Plt Count 259 (150-450) 10^3/uL MPV 6.9 L (7.4-10.4) fL Neut % (Auto) 80.6 % Lymph % (Auto) 9.5 % [place] % (Auto) 6.8 % Eos % (Auto) 1.6 % Baso % (Auto) 1.5 % Absolute Neuts (auto) 4.7 (1.5-7.7) 10^3/ul Absolute Lymphs (auto) 0.6 L (1.0-4.8) 10^3/ul Absolute Monos (auto) 0.4 (0-0.8) 10^3/ul Absolute Eos (auto) 0.1 (0-0.6) 10^3/ul Absolute Basos (auto) 0.1 (0-0.2) 10^3/ul Absolute Nucleated RBC 0.0 10^3/ul Nucleated RBC % 0.0 Sodium 137 (135-145) mmol/L Potassium 3.9 (3.5-5.0) mmol/L Chloride 104 (101-111) mmol/L Carbon Dioxide 26 (22-32) mmol/L Anion Gap 7 (2-11) mmol/L BUN 25 H (6-24) mg/dL Creatinine 1.30 H (0.67-1.17) mg/dL Est GFR ( Amer) 64.8 (>60) Est GFR (Non-Af Amer) 53.5 (>60) BUN/Creatinine Ratio 19.2 (8-20) Glucose 235 H (70-100) mg/dL Calcium 9.1 (8.6-10.3) mg/dL Total Bilirubin 0.40 (0.2-1.0) mg/dL AST 32 (13-39) U/L ALT 22 (7-52) U/L Alkaline Phosphatase 72 (34-104) U/L C-React Prot High Sens 16.03 H (<2.00) mg/L Total Protein 6.6 (6.4-8.9) g/dL Albumin 3.6 (3.2-5.2) g/dL Globulin 3.0 (2-4) g/dL Albumin/Globulin Ratio 1.2 (1-3) Result Diagrams: 04/11/19 13:45 04/11/19 13:45 Lab Statement: Any lab studies that have been ordered have been reviewed, and results considered in the medical decision making process. Course/Dx - Course Course Of Treatment: Multiple chronic wounds to the right lateral lower extremity, right lateral malleolus, and heel. Pt concerned for worsening symptoms as he now has some erythema around the area. This extends to baout .5cm out from the wound. He has been on doxycycline x 2 days. Labs obtained and are unremarkable. CRP slightly elevated at 17. Afebrile, vital signs are stable. Wounds are redressed he is given clindamycin 600 mg IV with fluids. Patient will follow-up with wound clinic in 2 days. - Diagnoses Provider Diagnoses: Chronic ulcer of ankle, Chronic ulcer of leg, Chronic ulcer of heel, MRSA ( methicillin resistant staph aureus) culture positive Discharge ED - Sign-Out/Discharge Documenting (check all that apply): Patient Departure - Discharge Plan Condition: Stable Disposition: HOME Referrals: Jamie Cha MD [Primary Care Provider] - Additional Instructions: Continue on the Doxycycline Keep the areas covered Follow up as scheduled - Billing Disposition and Condition Condition: STABLE Disposition: Home
--- OUTSIDE RECORDS SUMMARY | 2019-04-11 14:35 | XMS REPORT ---
:1940 Author Organization [facility] Care Team Providers Name Role Phone Unavailable Unavailable Unavailable Problems Condition Condition Condition Status Onset Resolution Last Treating Comments Name Details Category Date Date Treatment Clinician Date 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- [place] mellitus mellitus [id number] with foot with foot ulcer ulcer Non-pressur Non-pressur Diagnosis Active Laura e chronic e chronic 1- [place]Cla[place] ulcer of ulcer of [id number] other part other part of right of right foot with foot with fat layer fat layer exposed exposed Non-pressur Non-pressur Diagnosis Active Laura e chronic e chronic 1- [place] ulcer of ulcer of [id number] other part other part of left of left foot with foot with fat layer fat layer exposed exposed Type 2 Type 2 Diagnosis Active 2018-04 Laura diabetes diabetes 0-10 [place] mellitus mellitus [id number] with other with other skin ulcer skin ulcer Non-pressur Non-pressur Diagnosis Active 2018-04 Laura e chronic e chronic 0-10 [place] ulcer of ulcer of [id number] other part other part of right of right lower leg lower leg with fat with fat layer layer exposed exposed 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- [place] mellitus mellitus [id number] with with diabetic diabetic peripheral peripheral angiopathy angiopathy without without gangrene gangrene 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 [id number] (chronic) (chronic) (peripheral (peripheral ) ) 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 disease disease [id number] with heart with heart failure failure Heart Heart Diagnosis Active Laura failure, failure, [place] unspecified unspecified 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 pectoris Chronic 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 pulmonary [id number] disease, disease, unspecified unspecified Paroxysmal Paroxysmal Diagnosis Active Laura atrial atrial [place] fibrillatio fibrillatio [id number] n n Anxiety Anxiety Diagnosis Active Laura disorder, disorder, [place] unspecified unspecified [id number] Unspecified Unspecified Diagnosis Active Laura osteoarthri osteoarthri [place] tis, tis, [id number] unspecified unspecified site site Irritable Irritable Diagnosis Active Laura bowel 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 [id number] without without diarrhea diarrhea Benign Benign Diagnosis Active Laura prostatic prostatic [place] hyperplasia hyperplasia [id number] without without lower lower urinary urinary tract tract symptoms symptoms Sleep Sleep Diagnosis Active Laura apnea, apnea, [place] unspecified unspecified [id number] Tremor, Tremor, Diagnosis Active Laura unspecified unspecified [place] [id number] Hypothyroid Hypothyroid Diagnosis Active Laura ism, ism, [place] unspecified unspecified [id number] Hyperlipide Hyperlipide Diagnosis Active Laura clemente, clemente, [place] unspecified unspecified [id number] FDC meterman Diagnosis Active Laura (current) (current) [place] use of use of [id number] insulin insulin meterman FDC Diagnosis Active Laura (current) (current) [place] use of use of [id number] anticoagula anticoagula nts nts FDC meterman Diagnosis Active Laura (current) (current) [place] use of use of [id number] opiate opiate analgesic analgesic Presence of Presence of Diagnosis Active Laura coronary coronary [place] angioplasty angioplasty [id number] implant and implant and graft graft Personal Personal Diagnosis Active Laura history of history of [place] nicotine 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 Pain frequent Pain Mgmt Resolve 2017-042018-05-08 Roselyn pain d 0-10 08:50:00 (Radha) 11:15: [place] 00 [id number] Cardio edema Cardiovasc Resolve 2017-042018-02-20 Roselyn ular d 0-10 09:50:00 (Radha) 11:15: [place] [id number] Respiratory dyspnea Respirator Resolve 2017-042018-02-15 Roselyn present y d 0-10 10:20:00 (Radha) 11:15: Well[facility] [id number] Endo/Edgard glucose Endo/Edgard Resolve 2017-042018-03-20 Roselyn testing d 0-10 12:30:00 (Radha) dependence 11:15: [place] 00 [id number] Endo/Edgard knowledge/s Endo/Edgard Resolve 2017-042018-03-06 Roselyn kill d 0-10 09:30:00 (Radha) deficit: pt 11:15: [place] 00 [id number] Endo/Edgard anti-coagul Endo/Edgard Resolve 2017-042018-03-20 Roselyn ation d 0-10 12:30:00 (Radha) therapy 11:15: [place] 00 [id number] Endo/Edgard diabetic Endo/Edgard Resolve 2017-042018-03-06 Roselyn foot care d 0-10 09:30:00 (Radha) 11:15: [place] [id number] Sensory impaired Sensory Resolve 2017-042018-03-22 Roselyn hearing d 0-10 09:55:00 (Radha) 11:15: [place] [id number] Integument pressure Integument Resolve 2017-042018-08-21 Roselyn ulcer d 0-10 12:45:00 (Radha) present 11:15: [place] [id number] Integument skin Integument Resolve 2017-042018-03-03 Roselyn integrity d 0-10 09:19:00 (Radha) risk 11:15: [place] [id number] Integument surgical Integument Resolve 2017-042018-03-03 Quality wound d 0-10 09:19:00 Realtime7 present 11:15: 00 Integument other wound Integument Resolve 2017-042018-03-03 Quality present d 0-10 09:19:00 Realtime7 11:15: 00 Elimination urinary Eliminatio Resolve 2017-042018-03-20 Roselyn incontinenc n d 0-10 12:30:00 (Radha) e 11:15: [place] [id number] Neuro confusion Neuro/Emot Resolve 2017-042018-03-22 Roselyn present ion d 0-10 09:55:00 (Radha) 11:15: [place] [id number] Neuro anxiety Neuro/Emot Resolve 2017-042018-03-22 Roselyn present ion d 0-10 09:55:00 (Radha) 11:15: [place] [id number] Neuro impaired Neuro/Emot Resolve 2017-042018-03-22 Roselyn decision-ma ion d 0-10 09:55:00 (Radha) pj 11:15: [place] [id number] Activity ADL Activity Resolve 2017-042018-03-22 Roselyn assistance d 0-10 09:55:00 (Radha) required 11:15: [place] [id number] Safety structural Safety Resolve 2017-042018-03-22 Roselyn barriers d 0-10 09:55:00 (Radha) present 11:15: [place] 00 [id number] Safety fall risk Safety Resolve 2017-042018-03-22 Roselyn factor d 0-10 09:55:00 (Radha) present 11:15: [place] 00 [id number] Safety risk for Safety Resolve 2017-042018-03-22 Roselyn hospitaliza d 0-10 09:55:00 (Radha) tion 11:15: [facility] [id number] Safety can be left Safety Resolve 2017-042018-03-22 Roselyn alone for d 0-10 09:55:00 (Radha) only short 11:15: Weller periods 00 [id number] Medication oral med Meds Resolve 2017-042018-02-06 Roselyn assistance d 0-10 09:15:00 (Radha) required 11:15: [place] [id number] Medication injectable Meds Resolve 2017-042018-02-06 Roselyn med d 0-10 09:15:00 (Radha) assistance 11:15: [place] required 00 [id number] Medication knowledge/s Meds Resolve 2017-042018-02-15 Roselyn kill d 0-10 10:20:00 (Radha) deficit: pt 11:15: [facility] [id number] Medication potential Meds Resolve 2017-042018-02-15 Roselyn clinically d 0-10 10:20:00 (Radha) significant 11:15: Weller medication 00 [id number] issue Musculoskel transfer Musculoske Resolve 2017-042018-03-20 Roselyn etal assistance letal d 0-10 12:30:00 (Radha) required 11:15: [place] 00 [id number] Musculoskel requires Musculoske Resolve 2017-042018-03-20 Roselyn etal human letal d 0-10 12:30:00 (Radha) assist to 11:15: [place]er leave home 00 [id number] Safety knowledge/s Safety Resolve 2017-042018-03-22 Laura kill d 0-12 09:55:00 Jean[place]Cla[place] deficit: pt 10:00: [id number] 00 Respiratory knowledge/s Respirator Resolve 2017-042018-02-06 Laura kill y d 0-15 09:15:00 [place] deficit: cg 10:00: [id number] 00 Respiratory lung sounds Respirator Resolve 2017-042018-02-06 Laura deficit y d 0-15 09:15:00 [place] 10:00: [id number] 00 Sensory impaired Sensory Resolve 2017-042018-03-22 Quality verbal d 0-17 09:55:00 Realtime7 communicati 18:36: on 42 Musculoskel knowledge/s Musculoske Resolve 2017-042018-03-03 Laura etal kill letal d 0-24 09:19:00 [place] deficit: cg 09:45: [id number] 00 Nutrition knowledge/s Nutrition Resolve 2017-042018-03-03 Laura kill d 0-26 09:19:00 [place] deficit: pt 09:15: [id number] 00 Nutrition nutritional Nutrition Resolve 2017-042018-03-03 Laura restriction d 0-26 09:19:00 [place]Cla[place] s 09:15: [id number] 00 Elimination catheter Eliminatio Resolve 2017-042018-03-20 Laura present n d 0-26 12:30:00 [place] 09:15: [id number] 00 Elimination constipatio Eliminatio Resolve 2017-042018-03-20 Laura n n d 0-26 12:30:00 [place] 09:15: [id number] 00 Infection s/s of Infection Resolve 2017-042018-03-22 Laura infection d 0-31 09:55:00 [place]Cla[place] 09:30: [id number] 00 Endo/Edgard insulin Endo/Edgard Resolve 2017-042018-03-20 Laura admn d 04-22 12:30:00 [place] dependence 09:50: [id number] 00 Respiratory dyspnea Respirator Resolve 2017-042018-03-08 Laura present y d 04-24 09:20:00 [place] 10:07: [id number] 00 Safety cannot be Safety Resolve 2017-042018-03-22 Laura left alone d 04-24 09:55:00 [place] 10:07: [id number] 00 Cardio edema Cardiovasc Resolve 2017-042018-03-03 Laura ular d 04-26 09:19:00 [place]Claude 09:51: [id number] 00 Respiratory Incentive Respirator Resolve 2017-042018-03-03 Laura Spirometer y d 04-26 09:19:00 [place] /Acapella 09:51: [id number] Device 00 treatments in home Endo/Edgard knowledge/s Endo/Edgard Resolve 2017-042018-03-20 Laura kill d 05-08 12:30:00 [place] deficit: pt 09:20: [id number] 00 Nutrition knowledge/s Nutrition Resolve 2017-042018-04-19 Laura kill d 05-08 09:45:00 [place] deficit: pt 09:20: [id number] 00 Nutrition nutritional Nutrition Resolve 2017-042018-04-19 Laura restriction d 05-08 09:45:00 Jean[place]Claude roe 09:20: [id number] 00 Endo/Edgard diabetic Endo/Edgard Resolve 2017-042018-03-20 Laura foot care d 05-14 12:30:00 [place] 09:20: [id number] 00 Pain frequent Pain Mgmt Unknown 2017-04 Laura pain 05-18 [place] 12:45: [id number] 00 Respiratory dyspnea Respirator Resolve 2017-042018-03-20 Laura present y d 05-18 12:30:00 [place] 12:45: [id number] 00 Integument pressure Integument Unknown 2017-04 Laura ulcer 05-18 [place] present 12:45: [id number] 00 Integument surgical Integument Resolve 2017-042018-03-24 Laura wound d 05-18 11:23:00 [place] present 12:45: [id number] 00 Endo/Edgard diabetic Endo/Edgard Resolve 2017-042018-03-24 Laura foot care d 05-23 11:23:00 [place] 09:55: [id number] 00 Elimination catheter Eliminatio Resolve 2017-042018-04-19 Laura present n d 05-23 09:45:00 [place] 09:55: [id number] 00 Safety risk for Safety Resolve 2017-042018-04-19 Laura hospitaliza d 05-25 09:45:00 Jean[place]Claude tion 11:23: [id number] 00 Safety can be left Safety Resolve 2017-042018-04-19 Laura alone for d 05-25 09:45:00 [place]Cla[place] only short 11:23: [id number] periods 00 Musculoskel knowledge/s Musculoske Resolve 2017-042018-03-29 Laura etal kill letal d 05-28 09:30:00 [place] deficit: cg 10:20: [id number] 00 Musculoskel requires Musculoske Resolve 2017-042018-04-12 Laura etal human letal d 05-28 09:45:00 Jean[place]Claude assist to 10:20: [id number] leave home 00 Endo/Edgard diabetic Endo/Edgard Resolve 2017-042018-04-19 Laura foot care d 05-30 09:45:00 [place] 09:30: [id number] 00 Elimination constipatio Eliminatio Resolve 2017-042018-04-12 Laura n n d 05-30 09:45:00 [place] 09:30: [id number] 00 Pain frequent Pain Mgmt Unknown 2017-04 Laura pain 06-06 Jean[place]ude 09:45: [id number] 00 Endo/Edgard insulin Endo/Edgard Resolve 2017-042018-04-19 Laura admn d 06-06 09:45:00 [place] dependence 09:45: [id number] 00 Endo/Edgard anti-coagul Endo/Edgard Resolve 2017-042018-04-19 Laura ation d 06-06 09:45:00 [place] therapy 09:45: [id number] 00 Integument surgical Integument Resolve 2017-042018-04-05 Laura wound d 06-06 09:45:00 [place] present 09:45: [id number] 00 Integument skin Integument Resolve 2017-042018-04-05 Laura integrity d 06-06 09:45:00 [place] risk 09:45: [id number] 00 Integument pressure Integument Unknown 2017-04 Laura ulcer 06-06 [place] present 09:45: [id number] 00 Elimination UTI within Eliminatio Resolve 2017-042018-04-12 Laura past 14 n d 06-06 09:45:00 Jean-Claude days 09:45: [id number] 00 Activity ADL Activity Resolve 2017-042018-09-15 Laura assistance d 2- 10:35:00 [place] required 09:45: [id number] 00 Safety fall risk Safety Resolve 2017-042018-04-19 Luara factor d 2 09:45:00 Jean[place]Claude present 09:45: [id number] 00 Medication potential Meds Resolve 2017-042018-04-19 Laura clinically d 2 09:45:00 [place] significant 09:45: [id number] medication 00 issue Medication oral med Meds Resolve 2017-042018-04-05 Shari assistance d 06-06 09:45:00 Regeczi required 09:45: [id number] 00 Medication injectable Meds Resolve 2017-042018-08-09 Shari med d 06-06 09:20:00 Regeczi assistance 09:45: [id number] required 00 Musculoskel transfer Musculoske Resolve 2017-042018-04-12 Shari etal assistance letal d 06-06 09:45:00 Regeczi required 09:45: [id number] 00 Medication oral med Meds Resolve 2017-042018-04-19 Laura assistance d 2 09:45:00 [place] required 10:00: [id number] 00 Medication injectable Meds Unknown 2017-04 Laura med 06-08 [place]Cla[place] assistance 10:00: [id number] required 00 Sensory impaired Sensory Resolve 2017-042018-04-19 Nima verbal d 2- 09:45:00 Graves communicati 15:20: [id number] on 00 Sensory impaired Sensory Resolve 2017-042018-04-19 Nima hearing d 2 09:45:00 Graves 15:20: [id number] 00 Medication injectable Meds Unknown 2017-04 Nhung med - Pérez assistance 14:56: [id number] required 00 Medication injectable Meds Unknown Nima med 04-13 Graves assistance 13:50: [id number] required 00 Elimination constipatio Eliminatio Resolve 2018-04-19 Laura jarvis n d 04-14 09:45:00 [place]ude 09:28: [id number] 00 Medication injectable Meds Unknown Laura med 04-17 Jean[place]Claude assistance 10:00: [id number] required 00 Medication injectable Meds Resolve 2018-04-19 Laura med d -09 09:45:00 [place] assistance 09:45: [id number] required 00 Endo/Edgard anti-coagul Endo/Edgard Resolve 2018-04-26 Laura ation d -11 10:15:00 Jean[place]Claude therapy 09:45: [id number] 00 Nutrition knowledge/s Nutrition Resolve 2018-04-26 Laura kill d 04-21 10:15:00 [place]Cla[place] deficit: pt 09:45: [id number] 00 Nutrition nutritional Nutrition Resolve 2018-04-26 Laura restriction d 04-21 10:15:00 [place]Cla[place] s 09:45: [id number] 00 Elimination catheter Eliminatio Resolve 2018-04-26 Laura present n d 04-21 10:15:00 [place] 09:45: [id number] 00 Elimination constipatio Eliminatio Resolve 2018-04-26 Laura n n d 04-21 10:15:00 [place] 09:45: [id number] 00 Safety risk for Safety Resolve 2018-04-26 Laura hospitaliza d 04-21 10:15:00 [place]Claude tion 09:45: [id number] 00 Safety can be left Safety Resolve 2018-04-26 Laura alone for d 04-21 10:15:00 [place]Cla[place] only short 09:45: [id number] periods 00 Sensory impaired Sensory Resolve 2018-04-26 Nima verbal d 1-11 10:15:00 Graves communicati 14:30: [id number] on 00 Sensory impaired Sensory Resolve 2018-04-26 Nima hearing d 1-11 10:15:00 Graves 14:30: [id number] 00 Sensory impaired Sensory Resolve 2018-04-28 Nima verbal d 1-17 10:20:00 Graves communicati 12:45: [id number] on 00 Sensory impaired Sensory Resolve 2018-04-28 Nima hearing d 1-17 10:20:00 Graves 12:45: [id number] 00 Endo/Edgard anti-coagul Endo/Edgard Resolve 2018-05-24 Laura ation d 18 12:30:00 [place] therapy 10:20: [id number] 00 Safety risk for Safety Active Laura hospitaliza 1-18 Jean-Claude tion 10:20: [id number] 00 Safety can be left Safety Resolve 2018-05-10 Laura alone for d 1- 13:45:00 [place] only short 10:10: [id number] periods 00 Sensory impaired Sensory Resolve 2018-05-10 Jia hearing d 05-05 13:45:00 Hillebrand 13:30: t 00 [id number] Sensory impaired Sensory Resolve 2018-05-10 Jia verbal d 05-05 13:45:00 Hillebrand communicati 13:30: t on [id number] Elimination catheter Eliminatio Resolve 2018-05-08 Wandy present n d 05-08 08:50:00 ,Kaylee 08:50: 00 Elimination constipatio Eliminatio Resolve 2018-06-28 Wandy n n d 05-08 09:45:00 ,Kaylee 08:50: 00 Safety cannot be Safety Resolve 2018-05-10 Laura left alone d 05-08 13:45:00 Jean[place]Claude 08:50: [id number] 00 Elimination catheter Eliminatio Resolve 2018-05-12 Shari present n d 2 09:30:00 Regeczi 09:30: [id number] 00 Safety can be left Safety Resolve 2018-05-17 Laura alone for d 2- 10:00:00 [place] only short 09:30: [id number] Elimination urinary Eliminatio Resolve 2018-05-15 Laura incontinenc n d 2- 08:45:00 [place] e 08:45: [id number] 00 Pain frequent Pain Mgmt Resolve 2018-05-17 Laura pain d 2-06 10:00:00 [place] 10:00: [id number] 00 Respiratory lung sounds Respirator Resolve 2018-05-22 Laura deficit y d 2-06 10:44:00 [place] 10:00: [id number] 00 Integument pressure Integument Unknown Laura ulcer 2- [place] present 10:00: [id number] 00 Integument skin Integument Resolve 2018-05-17 Laura integrity d 2-06 10:00:00 [place] risk 10:00: [id number] 00 Integument surgical Integument Resolve 2018-05-17 Laura wound d 2-06 10:00:00 [place] present 10:00: [id number] 00 Activity ADL Activity Unknown Laura assistance 2- [place]Cla[place] required 10:00: [id number] 00 Activity self-care Activity Resolve 2018-05-19 Laura deficit d 2-06 11:15:00 [place] 10:00: [id number] 00 Safety fall risk Safety Resolve 2018-05-19 Laura factor d 2- 11:15:00 [place] present 10:00: [id number] 00 Elimination urinary Eliminatio Resolve 2018-05-24 [place] incontinenc n d 2-08 12:30:00 ,Kaylee e 11:15: 00 Safety can be left Safety Resolve 2018-05-24 Larua alone for d 2- 12:30:00 [place] only short 11:15: [id number] 00 Safety fall risk Safety Resolve 2018-05-24 Sonia White factor d 2-12 12:30:00 present 09:48: 41 Endo/Edgard glucose Endo/Edgard Resolve 2018-05-24 Laura tolerance d 2-13 12:30:00 [place] problem 12:30: [id number] 00 Respiratory Incentive Respirator Resolve 2018-06-07 Laura Spirometer y d 2-15 12:00:00 [place] /Acapella 13:40: [id number] Device 00 treatments in home Endo/Edgard anti-coagul Endo/Edgard Resolve 2018-06-12 Laura ation d 2-15 09:30:00 [place] therapy 13:40: [id number] 00 Elimination urinary Eliminatio Resolve 2018-05-26 Laura incontinenc n d 2-15 13:40:00 [place] e 13:40: [id number] 00 Safety can be left Safety Resolve 2018-06-07 Laura alone for d 2-15 12:00:00 [place] only short 13:40: [id number] periods 00 Endo/Edgard glucose Endo/Edgard Resolve 2018-06-07 Cherrise tolerance d 06-02 12:00:00 Trixie problem 10:15: [id number] 00 Endo/Edgard insulin Endo/Edgard Resolve 2018-06-12 Cherrise admn d 06-02 09:30:00 [place] dependence 10:15: [id number] 00 Endo/Edgard glucose Endo/Edgard Resolve 2018-06-12 Cherrise testing d 06-02 09:30:00 [place] dependence 10:15: [id number] 00 Safety fall risk Safety Resolve 2018-06-07 Cherrise factor d 06-02 12:00:00 [place] present 10:15: [id number] 00 Musculoskel transfer Musculoske Active Cherrise etal assistance letal 06-02 Trixie required 10:15: [id number] 00 Musculoskel requires Musculoske Active Cherrise etal human letal 06-02 Trixie assist to 10:15: [id number] leave home 00 Elimination urinary Eliminatio Resolve 2018-06-07 Laura incontinenc n d 06-05 12:00:00 [place]Cla[place] e 12:30: [id number] 00 Activity self-care Activity Resolve 2018-08-14 Laura deficit d 06-05 12:10:00 [place] 12:30: [id number] 00 Elimination urinary Eliminatio Resolve 2018-06-12 Laura incontinenc n d 06-09 09:30:00 [place] e 09:13: [id number] 00 Safety can be left Safety Resolve 2018-06-12 Larua alone for d 06-09 09:30:00 [place] only short 09:13: [id number] periods 00 Respiratory Incentive Respirator Resolve 2018-06-14 Laura Spirometer y d 06-12 09:30:00 [place] /Acapella 09:30: [id number] Device 00 treatments in home Endo/Edgard anti-coagul Endo/Edgard Resolve 2018-06-30 Laura ation d 06-14 09:19:00 [place]Cla[place] therapy 09:30: [id number] 00 Safety can be left Safety Resolve 2018-06-30 Laura alone for d 3- 09:19:00 [place] only short 09:30: [id number] periods 00 Elimination urinary Eliminatio Resolve 2018-06-19 Laura incontinenc n d 3-08 13:45:00 [place] e 09:45: [id number] 00 Elimination urinary Eliminatio Resolve 2018-06-28 Laura incontinenc n d 3- 09:45:00 [place] e 13:15: [id number] 00 Elimination constipatio Eliminatio Resolve 2018-07-14 Laura n n d 3 09:20:00 [place] 09:19: [id number] 00 Endo/Edgard anti-coagul Endo/Edgard Resolve 2018-07-14 Laura ation d 3 09:20:00 [place] therapy 12:49: [id number] 00 Elimination urinary Eliminatio Resolve 2018-07-14 Laura incontinenc n d 07-03 09:20:00 [place] e 12:49: [id number] 00 Safety can be left Safety Resolve 2018-08-18 Laura alone for d 3- 12:05:00 [place] only short 12:50: [id number] periods 00 Endo/Edgard glucose Endo/Edgard Resolve 2018-07-14 Shi testing d 07-10 09:20:00 Sorin, dependence 12:30: [id number] 00 Pain frequent Pain Mgmt Resolve 2018-07-14 Laura pain d 4 09:20:00 [place] 09:20: [id number] 00 Integument surgical Integument Resolve 2018-08-13 Laura wound d 4-05 12:50:00 [place] present 09:20: [id number] 00 Integument skin Integument Resolve 2018-08-13 Laura integrity d 4-05 12:50:00 [place] risk 09:20: [id number] 00 Safety fall risk Safety Resolve 2018-08-18 Laura factor d 4-05 12:05:00 [place] present 09:20: [id number] 00 Endo/Edgard anti-coagul Endo/Edgard Resolve 2018-08-14 Laura ation d 07-17 12:10:00 [place] therapy 13:00: [id number] 00 Elimination urinary Eliminatio Resolve 2018-07-21 Laura incontinenc n d 07-17 09:25:00 [place] e 13:00: [id number] 00 Activity ADL Activity Unknown Laura assistance 07-17 [place] required 13:00: [id number] 00 Elimination urinary Eliminatio Resolve 2018-08-14 Laura incontinenc n d 07-24 12:10:00 [place] e 09:27: [id number] 00 Pain frequent Pain Mgmt Resolve 2018 Laura pain d 08-07 09:20:00 [place] 12:45: [id number] 00 Cardio edema Cardiovasc Resolve 2018 Laura ular d 08-07 09:20:00 [place] 12:45: [id number] 00 Respiratory dyspnea Respirator Resolve 2018 Laura present y d 08-07 09:20:00 [place] 12:45: [id number] 00 Endo/Edgard diabetic Endo/Edgard Resolve 2018-08-14 Laura foot care d 08-07 12:10:00 [place] 12:45: [id number] 00 Nutrition knowledge/s Nutrition Active Laura kill 08-07 Jean[place] deficit: pt 12:45: [id number] 00 Nutrition nutritional Nutrition Active Laura restriction 08-07 Jean[place]Cla[place] s 12:45: [id number] 00 Neuro confusion Neuro/Emot Resolve 2018-08-14 Laura present ion d 08-07 12:10:00 [place] 12:45: [id number] 00 Medication oral med Meds Resolve 2018 Laura assistance d 08-07 09:20:00 [place] required 12:45: [id number] 00 Medication injectable Meds Resolve 2018 Jia med d 08-07 09:20:00 Jerardo assistance 12:45: [id number] required 00 Cardio edema Cardiovasc Resolve 2018-08-23 Laura ular d 08-13 11:15:00 [place] 12:50: [id number] 00 Respiratory dyspnea Respirator Resolve 2018-08-14 Laura present y d 08-13 12:10:00 [place] 12:50: [id number] 00 Endo/Edgard anti-coagul Endo/Edgard Resolve 2018-08-28 Laura ation d 08-16 12:00:00 [place] therapy 12:15: [id number] 00 Elimination urinary Eliminatio Resolve 2018-08-21 Laura incontinenc n d 08-16 12:45:00 [place] e 12:15: [id number] 00 Sensory impaired Sensory Resolve 2018-08-21 Krystyna verbal d 08-17 12:45:00 [place] communicati 14:30: [id number] on 00 Sensory impaired Sensory Resolve 2018-08-21 Krystyna hearing d 08-17 12:45:00 [place] 14:30: [id number] 00 Social financial LILLIAN: Resolve 2019-02-16 Krystyna Services resource Social d 08-17 13:45:00 [place] deficit Services 14:30: [id number] 00 Social knowledge/s LILLIAN: Resolve 2018-08-17 Krystyna Services kill Social d 08-17 14:30:00 [place] deficit - Services 14:30: [id number] pt 00 Social knowledge/s LILLIAN: Resolve 2018-08-17 Krystyna Services kill Social d 08-17 14:30:00 [place] deficit - Services 14:30: [id number] cg 00 Safety can be left Safety Resolve 2018-09-07 Laura alone for d 08-23 10:00:00 Jean[place] only short 11:15: [id number] periods 00 Social knowledge/s LILLIAN: Active Laura Services kill Social 08-23 [place] deficit - Services 11:15: [id number] pt 00 Elimination urinary Eliminatio Resolve 2018-09-07 Laura incontinenc n d 08-25 10:00:00 [place] e 11:45: [id number] 00 Sensory impaired Sensory Resolve 2018-09-07 Krystyna verbal d 09-01 10:00:00 [place] communicati 14:45: [id number] on 00 Sensory impaired Sensory Resolve 2018-09-07 Krystyna hearing d 09-01 [facility] [id number] 00 Social knowledge/s LILLIAN: Active Krystyna Services kill Social 09-01 [facility] deficit - Services 14:45: [id number] cg 00 Respiratory dyspnea Respirator Resolve 2018-09-15 Laura present y d 09-07 10:35:00 [place] 10:00: [id number] 00 Pain frequent Pain Mgmt Resolve 2018-09-11 Laura pain d 09-11 11:50:00 [place]ude 11:50: [id number] 00 Cardio hypertensio Cardiovasc Resolve 2018-09-11 Laura n ular d 09-11 11:50:00 [place]Claude 11:50: [id number] 00 Integument pressure Integument Resolve 2018-09-15 Laura ulcer d 09-11 10:35:00 Jean[place]Claude present 11:50: [id number] 00 Integument surgical Integument Resolve 2018-09-15 Laura wound d 09-11 10:35:00 [place] present 11:50: [id number] 00 Integument skin Integument Resolve 2018-09-15 Laura integrity d 09-11 10:35:00 Jean[place]Claude risk 11:50: [id number] 00 Elimination urinary Eliminatio Resolve 2018-09-11 Laura incontinenc n d 09-11 11:50:00 [place] e 11:50: [id number] 00 Activity ADL Activity Unknown Laura assistance 09-11 Jean[place]Claude required 11:50: [id number] 00 Activity self-care Activity Resolve 2018-09-15 Laura deficit d 09-11 10:35:00 [place] 11:50: [id number] 00 Safety fall risk Safety Resolve 2018-09-15 Laura factor d 09-11 10:35:00 [place] present 11:50: [id number] 00 Safety can be left Safety Resolve 2018-09-15 Laura alone for d 09-11 10:35:00 [place] only short 11:50: [id number] periods 00 Endo/Edgard anti-coagul Endo/Edgard Resolve 2018-09-18 Laura ation d 6-07 12:20:00 [place] therapy 10:35: [id number] 00 Elimination urinary Eliminatio Resolve 2018-09-18 Laura incontinenc n d 09-15 12:20:00 [place] e 10:35: [id number] 00 Elimination constipatio Eliminatio Resolve 2018-09-18 Laura n n d 09-15 12:20:00 [place] 10:35: [id number] 00 Safety can be left Safety Resolve 2018-09-25 Laura alone for d 09-18 11:45:00 [place] only short 12:20: [id number] periods 00 Cardio hypertensio Cardiovasc Resolve 2018-09-21 Laura n ular d 09-21 11:45:00 [place] 11:45: [id number] 00 Endo/Edgard anti-coagul Endo/Edgard Resolve 2018-09-25 Laura ation d 09-21 11:45:00 [place] therapy 11:45: [id number] 00 Cardio hypertensio Cardiovasc Resolve 2018-10-02 Laura n ular d 09-25 12:05:00 [place] 11:45: [id number] 00 Elimination urinary Eliminatio Resolve 2018-10-02 Laura incontinenc n d 09-25 12:05:00 [place] e 11:45: [id number] 00 Endo/Edgard anti-coagul Endo/Edgard Resolve 2018-10-02 Laura ation d 09-29 12:05:00 [place] therapy 09:45: [id number] 00 Safety can be left Safety Resolve 2018-10-02 Laura alone for d 09-29 12:05:00 [place] only short 09:45: [id number] periods 00 Endo/Edgard anti-coagul Endo/Edgard Resolve 2018-10-27 Laura ation d 10-04 11:30:00 [place] therapy 10:10: [id number] 00 Elimination urinary Eliminatio Resolve 2018-10-06 Laura incontinenc n d 10-04 09:10:00 [place] e 10:10: [id number] 00 Elimination constipatio Eliminatio Resolve 2018-10-06 Laura n n d 10-04 09:10:00 [place] 10:10: [id number] 00 Safety can be left Safety Resolve 2018-10-06 Laura alone for d 10-04 09:10:00 [place] only short 10:10: [id number] periods 00 Sensory impaired Sensory Resolve 2018-10-23 Krystyna verbal d 6 11:56:00 [place] communicati 15:00: [id number] on 00 Sensory impaired Sensory Resolve 2018-10-23 Krystyna hearing d 10-05 11:56:00 [place] 15:00: [id number] 00 Elimination urinary Eliminatio Resolve 2018-10-27 Laura incontinenc n d 10-09 11:30:00 [place] e 12:15: [id number] 00 Elimination bloody Eliminatio Resolve 2018-10-27 Laura urine n d 10-09 11:30:00 [place] 12:15: [id number] 00 Safety can be left Safety Resolve 2018-10-23 Laura alone for d 10-09 11:56:00 [place] only short 12:15: [id number] Elimination constipatio Eliminatio Resolve 2018-12-08 Laura n n d 10-16 14:00:00 [place]Claude 12:35: [id number] 00 Cardio edema Cardiovasc Resolve 2018-10-27 Laura ular d 10-20 11:30:00 [place] 11:35: [id number] 00 Endo/Edgard knowledge/s Endo/Edgard Resolve 2018-10-27 Laura kill d 10-20 11:30:00 [place] deficit: pt 11:35: [id number] 00 Sensory impaired Sensory Unknown Jonaatn verbal 7-15 Demarco, communicati 13:30: PT on [id number] Sensory impaired Sensory Unknown Jonatan hearing 7-15 Demarco, 13:30: PT 00 [id number] Safety can be left Safety Resolve 2018-10-27 Laura alone for d 7- 11:30:00 Jean[place]Claude only short 10:35: [id number] periods 00 Endo/Edgard glucose Endo/Edgard Resolve 2018-12-11 Cherrise tolerance d 10-30 09:30:00 Trixie problem 11:55: [id number] 00 Endo/Edgard insulin Endo/Edgard Resolve 2018-12-13 Cherrise admn d 10-30 11:10:00 [place] dependence 11:55: [id number] 00 Endo/Edgard glucose Endo/Edgard Resolve 2018-12-13 Cherrise testing d 10-30 11:10:00 [place] dependence 11:55: [id number] 00 Endo/Edgard knowledge/s Endo/Edgard Resolve 2018-12-08 Cherrise kill d 10-30 14:00:00 [place] deficit: pt 11:55: [id number] 00 Elimination urinary Eliminatio Resolve 2018-12-08 [place] urgency n d 10-30 14:00:00 Trixie 11:55: [id number] 00 Neuro depressive Neuro/Emot Resolve 2018-12-08 [place] feelings ion d 10-30 14:00:00 [place] present 11:55: [id number] 00 Neuro impaired Neuro/Emot Resolve 2018-12-08 Cher[place] decision-ma ion d 10-30 14:00:00 [place] pj 11:55: [id number] 00 Safety fall risk Safety Resolve 2018-12-06 Cherrise factor d 10-30 13:05:00 [place] present 11:55: [id number] 00 Endo/Edgard anti-coagul Endo/Edgard Resolve 2018-12-13 Shi ation d 11-01 11:10:00 Sorin, therapy 12:30: [id number] 00 Respiratory Incentive Respirator Resolve 2018-11-29 [place] Spirometer y d 11-03 10:15:00 Trixie /Acapella 10:25: [id number] Device 00 treatments in home Elimination urinary Eliminatio Resolve 2018-12-08 Cherrise frequency n d 11-03 14:00:00 [place] 10:25: [id number] 00 Respiratory lung sounds Respirator Resolve 2018-11-29 [place] deficit y d 11-06 10:15:00 Trixie 12:05: [id number] 00 Neuro memory Neuro/Emot Resolve 2018-12-08 [place] deficit ion d 7-31 14:00:00 [place] needing 10:30: [id number] supervision 00 Pain frequent Pain Mgmt Resolve 2018-12-06 Shi pain d 11-10 13:05:00 Sorin, 11:00: [id number] 00 Integument pressure Integument Active Shi ulcer 11-10 Sorin, present 11:00: [id number] 00 Integument surgical Integument Active Shi wound 11-10 Sorin, present 11:00: [id number] 00 Integument skin Integument Active Shi integrity 11-10 Sorin, risk 11:00: [id number] 00 Elimination urinary Eliminatio Resolve 2018-12-08 Shi incontinenc n d 11-10 14:00:00 Sorin, e 11:00: [id number] 00 Activity self-care Activity Resolve 2018-11-29 Shi deficit d 11-10 10:15:00 Sorin, 11:00: [id number] 00 Activity ADL Activity Resolve 2018-12-08 Shi assistance d 11-10 14:00:00 Sorin, required 11:00: [id number] 00 Pain knowledge/s Pain Mgmt Resolve 2018-12-06 Krystyna kill d 11-16 13:05:00 [place] deficit: cg 15:15: [id number] 00 Respiratory knowledge/s Respirator Resolve 2018-11-29 Krystyna kill y d 11-16 10:15:00 [place] deficit: cg 15:15: [id number] 00 Integument knowledge/s Integument Active 2018- Krystyna kill 11-16 [place] deficit: cg 15:15: [id number] 00 Elimination knowledge/s Eliminatio Resolve 2018-12-08 Krystyna kill n d 11-16 14:00:00 [place] deficit: cg 15:15: [id number] 00 Safety knowledge/s Safety Resolve 2018-12-06 Krystyna kill d 11-16 13:05:00 [place] deficit: cg 15:15: [id number] 00 Cardio hypertensio Cardiovasc Resolve 2018-11-29 Lenny ruiz d 11-17 10:15:00 Trixie 10:45: [id number] 00 Safety can be left Safety Resolve 2018-12-08 Shi alone for d 11-22 14:00:00 nancy Rowell 11:00: [id number] periods 00 Sensory impaired Sensory Resolve 2018-12-08 Laura verbal d 11-24 14:00:00 Jean[place]Claude communicati 09:30: [id number] on Sensory impaired Sensory Resolve 2018-12-08 Laura hearing d 11-24 14:00:00 [place] 09:30: [id number] 00 Respiratory knowledge/s Respirator Resolve 2018-12-08 Laura kill y d 12-01 14:00:00 [place] deficit: cg 09:30: [id number] 00 Sensory impaired Sensory Unknown Krystyna verbal 12-08 [place] communicati 15:00: [id number] on Sensory impaired Sensory Unknown Krystyna hearing 12-08 [place] 15:00: [id number] 00 Respiratory knowledge/s Respirator Resolve 2018-12-13 Laura kill y d 12-11 11:10:00 [place] deficit: cg 09:30: [id number] 00 Endo/Edgard knowledge/s Endo/Edgard Resolve 2018-12-13 Laura kill d 12-11 11:10:00 [place] deficit: pt 09:30: [id number] 00 Elimination urinary Eliminatio Resolve 2018-12-15 Laura incontinenc n d 12-11 13:10:00 [place] e 09:30: [id number] 00 Safety can be left Safety Resolve 2018-12-15 Laura alone for d 12-11 13:10:00 [place] only short 09:30: [id number] 00 Endo/Edgard knowledge/s Endo/Edgard Resolve 2019-01-05 Laura kill d 12-15 11:00:00 [place] deficit: pt 13:10: [id number] 00 Endo/Edgard anti-coagul Endo/Edgard Resolve 2019-01-05 Laura ation d 12-15 11:00:00 [place] therapy 13:10: [id number] 00 Elimination urinary Eliminatio Resolve 2018-12-27 Laura incontinenc n d 12-18 09:20:00 [place] e 12:10: [id number] 00 Safety can be left Safety Resolve 2019-01-05 Laura alone for d 12-18 11:00:00 [place] only short 12:10: [id number] periods 00 Elimination constipatio Eliminatio Resolve 2019-01-05 Laura n n d 12-20 11:00:00 [place] 12:15: [id number] 00 Pain frequent Pain Mgmt Resolve 2019-01-15 Laura pain d 12-27 12:30:00 Jean[place] 09:20: [id number] 00 Respiratory dyspnea Respirator Resolve 2019-01-05 Laura present y d 12-27 11:00:00 [place] 09:20: [id number] 00 Endo/Edgard diabetic Endo/Edgard Resolve 2019-01-05 Laura foot care d 12-27 11:00:00 Jean[place]Cla[place] 09:20: [id number] 00 Elimination diarrhea Eliminatio Resolve 2019-01-05 Laura n d 12-27 11:00:00 [place] 09:20: [id number] 00 Neuro confusion Neuro/Emot Resolve 2019-01-05 Laura present ion d 12-27 11:00:00 [place] 09:20: [id number] 00 Neuro anxiety Neuro/Emot Resolve 2019-01-05 Laura present ion d 12-27 11:00:00 [place] 09:20: [id number] 00 Activity ADL Activity Resolve 2019-01-05 Laura assistance d 12-27 11:00:00 [place] required 09:20: [id number] 00 Activity self-care Activity Resolve 2019-01-05 Laura deficit d 12-27 11:00:00 [place] 09:20: [id number] 00 Safety fall risk Safety Resolve 2019-01-05 Laura factor d 9-18 11:00:00 [place] present 09:20: [id number] 00 Medication potential Meds Resolve 2019-01-05 Laura clinically d 9-18 11:00:00 [place] significant 09:20: [id number] medication 00 issue Elimination urinary Eliminatio Resolve 2019-01-05 Laura incontinenc n d 920 11:00:00 [place] e 11:20: [id number] 00 Endo/Edgard knowledge/s Endo/Edgard Resolve 2019-01-10 Laura kill d 01-08 10:00:00 [place] deficit: pt 11:30: [id number] 00 Endo/Edgard anti-coagul Endo/Edgard Resolve 2019-01-10 Laura ation d 01-08 10:00:00 [place] therapy 11:30: [id number] 00 Elimination urinary Eliminatio Resolve 2019-01-15 Laura incontinenc n d 01-08 12:30:00 [place] e 11:30: [id number] 00 Safety can be left Safety Resolve 2019-02-16 Laura alone for d 01-08 12:00:00 [place] only short 11:30: [id number] periods 00 Respiratory dyspnea Respirator Resolve 2018-042019-01-26 Laura present y d 0-02 10:00:00 [place] 10:00: [id number] 00 Activity ADL Activity Resolve 2018-042019-01-12 Laura assistance d 0-02 11:30:00 [place] required 10:00: [id number] 00 Activity self-care Activity Resolve 2018-042019-01-12 Laura deficit d 0-02 11:30:00 [place] 10:00: [id number] 00 Safety fall risk Safety Resolve 2018-042019-01-12 Laura factor d 0-02 11:30:00 [place] present 10:00: [id number] 00 Medication injectable Meds Resolve 2018-042019-01-17 Laura med d 0-02 09:45:00 [place] assistance 10:00: [id number] required 00 Endo/Edgard knowledge/s Endo/Edgard Resolve 2018-042019-01-15 Laura kill d 0-04 12:30:00 [place] deficit: pt 11:30: [id number] 00 Endo/Edgard anti-coagul Endo/Edgard Resolve 2018-042019-01-15 Laura ation d 0-04 12:30:00 [place] therapy 11:30: [id number] 00 Elimination constipatio Eliminatio Resolve 2018-042019-01-15 Laura n n d 0-04 12:30:00 [place] 11:30: [id number] 00 Sensory impaired Sensory Resolve 2018-042019-01-15 Krystyna verbal d 0-04 12:30:00 [place] communicati 15:30: [id number] on 00 Sensory impaired Sensory Resolve 2018-042019-01-15 Krystyna hearing d 0-04 12:30:00 [place] 15:30: [id number] 00 Infection s/s of Infection Resolve 2018-042019-03-09 Laura infection d 0-07 11:00:00 [place] 12:30: [id number] 00 Sensory impaired Sensory Resolve 2018-042019-01-22 Jonatan verbal d 0-08 11:00:00 ambrosio Pal 13:00: PT on [id number] Sensory impaired Sensory Resolve 2018-042019-01-22 Jonatan hearing d 0-08 11:00:00 Demarco, 13:00: PT 00 [id number] Endo/Edgard knowledge/s Endo/Edgard Resolve 2018-042019-02-07 Laura kill d 0-09 11:20:00 [place] deficit: pt 09:45: [id number] 00 Endo/Edgard anti-coagul Endo/Edgard Resolve 2018-042019-02-07 Laura ation d 0-09 11:20:00 [place] therapy 09:45: [id number] 00 Elimination urinary Eliminatio Resolve 2018-042019-02-02 Laura incontinenc n d 0-09 11:30:00 [place] e 09:45: [id number] 00 Elimination constipatio Eliminatio Resolve 2018-042019-02-02 Laura n n d 0-16 11:30:00 [place] 10:00: [id number] 00 Sensory impaired Sensory Resolve 2018-042019-01-31 Jonatan verbal d 0-17 11:10:00 ambrosio Pal 15:00: PT on [id number] Sensory impaired Sensory Resolve 2019-1 2019-01-31 Jonatan hearing d 0-17 11:10:00 Demarco, 15:00: PT 00 [id number] Pain frequent Pain Mgmt Resolve 2018-042019-02-16 Jonatan pain d 0-23 12:00:00 Demarco, 13:00: PT 00 [id number] Sensory impaired Sensory Unknown 2018-04 Jonatan verbal 0-23 Demarco, communicati 13:00: PT on 00 [id number] Sensory impaired Sensory Unknown 2018-04 Jonatan hearing 0-23 Demarco, 13:00: PT 00 [id number] Respiratory dyspnea Respirator Resolve 2018-042019-02-07 Laura present y d 0-25 11:20:00 [place] 11:30: [id number] 00 Elimination urinary Eliminatio Resolve 2018-042019-02-07 Laura incontinenc n d 0-28 11:20:00 [place] e 12:40: [id number] 00 Endo/Edgard knowledge/s Endo/Edgard Resolve 2018-042019-02-19 Laura kill d 04-11 12:40:00 [place] deficit: pt 12:30: [id number] 00 Endo/Edgard anti-coagul Endo/Edgard Resolve 2018-042019-02-19 Laura ation d 04-11 12:40:00 [place] therapy 12:30: [id number] 00 Elimination urinary Eliminatio Resolve 2018-042019-02-16 Laura incontinenc n d 04-11 12:00:00 [place] e 12:30: [id number] 00 Medication potential Meds Resolve 2018-042019-02-24 Laura clinically d 1 09:45:00 Jean[place] significant 12:20: [id number] medication 00 issue Elimination constipatio Eliminatio Resolve 2018-042019-02-16 Laura n n d 04-16 12:00:00 [place] 11:20: [id number] 00 Elimination urinary Eliminatio Resolve 2018-042019-02-24 Laura incontinenc n d 04-21 09:45:00 [place] e 12:40: [id number] 00 Safety can be left Safety Resolve 2018-042019-02-24 Laura alone for d 04-21 09:45:00 Jean-Cla[place] only short 12:40: [id number] periods 00 Endo/Edgard knowledge/s Endo/Edgard Resolve 2018-042019-02-24 Laura kill d 1-13 09:45:00 [place] deficit: pt 12:05: [id number] 00 Endo/Edgard anti-coagul Endo/Edgard Resolve 2018-042019-02-24 Laura ation d 1- 09:45:00 [place] therapy 12:05: [id number] 00 Sensory impaired Sensory Resolve 2018-042019-02-26 Laura verbal d 04-26 13:20:00 Jean-Cla[place] communicati 09:45: [id number] on 00 Sensory impaired Sensory Resolve 2018-042019-02-26 Laura hearing d 16 13:20:00 Jean[place] 09:45: [id number] 00 Endo/Edgard knowledge/s Endo/Edgard Resolve 2018-042019-02-28 Laura kill d 04-28 11:15:00 [place] deficit: pt 13:20: [id number] 00 Endo/Edgard anti-coagul Endo/Edgard Resolve 2018-042019-02-28 Laura ation d 04-28 11:15:00 [place] therapy 13:20: [id number] 00 Elimination urinary Eliminatio Resolve 2018-042019-03-09 Laura incontinenc n d 04-28 11:00:00 [place] e 13:20: [id number] 00 Safety can be left Safety Resolve 2018-042019-03-05 Laura alone for d 04-28 12:45:00 [place] only short 13:20: [id number] periods 00 Endo/Edgard knowledge/s Endo/Edgard Resolve 2018-042019-03-09 Laura kill d 05-05 11:00:00 [place] deficit: pt 12:45: [id number] 00 Endo/Edgard anti-coagul Endo/Edgard Resolve 2018-042019-03-09 Laura ation d 05-05 11:00:00 [place] therapy 12:45: [id number] 00 Safety can be left Safety Resolve 2018-042019-03-09 Laura alone for d 05-07 11:00:00 [place] only short 11:25: [id number] periods 00 Sensory impaired Sensory Resolve 2018-042019-03-12 Krystyna verbal d 05-09 11:15:00 [place]rick[place] communicati 12:00: [id number] on 00 Sensory impaired Sensory Resolve 2018-042019-03-12 Krystyna hearing d 05-09 11:15:00 [facility] 12:00: [id number] 00 Social financial LILLIAN: Active 2018-04 Krystyna Services resource Social 05-09 [facility] deficit Services 12:00: [id number] 00 Respiratory dyspnea Respirator Resolve 2018-042019-03-14 Laura present y d 05-13 10:30:00 [place] 11:15: [id number] 00 Endo/Edgard knowledge/s Endo/Edgard Resolve 2018-042019-04-02 Laura kill d 05-13 11:45:00 [place] deficit: pt 11:15: [id number] 00 Endo/Edgard anti-coagul Endo/Edgard Resolve 2018-042019-04-02 Laura ation d 05-13 11:45:00 [place] therapy 11:15: [id number] 00 Elimination urinary Eliminatio Resolve 2018-042019-03-14 Laura incontinenc n d 05-13 10:30:00 [place] e 11:15: [id number] 00 Activity ADL Activity Resolve 2018-042019-03-14 Laura assistance d 05-13 10:30:00 [place] required 11:15: [id number] 00 Activity self-care Activity Resolve 2018-042019-03-14 Laura deficit d 05-13 10:30:00 [place] 11:15: [id number] 00 Safety fall risk Safety Resolve 2018-042019-03-14 Laura factor d 05-13 10:30:00 Jean[place] present 11:15: [id number] 00 Safety can be left Safety Resolve 2018-042019-03-14 Laura alone for d 05-13 10:30:00 [place] only short 11:15: [id number] periods 00 Medication injectable Meds Resolve 2018-042019-03-12 Laura med d 05-13 11:15:00 [place] assistance 11:15: [id number] required 00 Safety can be left Safety Resolve 2018-042019-03-19 Laura alone for d 05-17 11:40:00 [place] only short 09:15: [id number] periods 00 Elimination urinary Eliminatio Resolve 2018-042019-03-30 Laura incontinenc n d 05-20 10:45:00 [place] e 11:40: [id number] 00 Safety can be left Safety Resolve 2018-042019-03-26 Laura alone for d 2-11 11:00:00 [place] only short 11:30: [id number] Safety can be left Safety Resolve 2018-042019-03-30 Laura alone for d 2-18 10:45:00 [place] only short 10:30: [id number] 00 Elimination urinary Eliminatio Active 2018-04 Laura incontinenc n 2- [place] e 11:45: Safety can be left Safety Active 2018-04 Laura alone for - [place] only short 11:45: [id number] 00 Endo/Edgard knowledge/s Endo/Edgard Active 2018-04 Laura kill 06-05 [place] deficit: pt 14:48: Endo/Edgard anti-coagul Endo/Edgard Active 2018-04 Laura ation 06-05 Jean-Claude therapy 14:48: Allergies, Adverse Reactions, Alerts Allergy Name Allergy Status Severity Reaction(s) Onset Inactive Treating Comments Type Date Date Clinician bananas Unknown Active Unknown Reaction 2017-04 Roselyn Unknown 0-10 (Radha) Nithin [id number] keflex Unknown Active Unknown Reaction 2017-04 Roselyn Unknown 0-10 (Radha) Nithin [id number] nuts Unknown Active Unknown Reaction 2017-04 Roselyn Unknown 0-10 (Radha) Nithin [id number] Cipro Medication Active Unknown Reaction 2017-04 Sonia White Name ID Unknown 0-10 metronidazol Base Active Unknown Nausea and 2017-04 Roselyn e Ingredient vomiting 2-20 Guidesylvain [id number] Medications Ordered Filled Start Stop Current Ordering Indication Dosage Frequency Signature Comments Components Medication Medication Date Date Medication? Clinician (SIG) Name Name folic acid folic acid 2017-04 No Shallish Unknown Unknown 1 mg tablet 1 mg tablet 0-10 MD,Jamie nystatin nystatin 2017-04 No Shallish Unknown Unknown (bulk) 100 (bulk) 100 0-10 MD,Jamie million million unit powder unit powder levothyroxi levothyroxi No Shallish 1 tab Unknown ne 175 mcg ne 175 mcg MD,Jamie tablet tablet levothyroxi levothyroxi No Shallish 0.5 tab Unknown ne 25 mcg ne 25 mcg MD,Jamie tablet tablet LORazepam 1 LORazepam 1 2017-04 No Shallish Unknown Unknown mg tablet mg tablet 0-10 MD,Jamie methenamine methenamine 2017-04 No Shallish Unknown Unknown hippurate 1 hippurate 1 0-10 MD,Jamie gram tablet gram tablet Nitrostat Nitrostat 2017-04 No Shallish Unknown Unknown 0.4 mg 0.4 mg 0-10 MD,Jamie sublingual sublingual tablet tablet pantoprazol pantoprazol 2017-04 No Shallish Unknown Unknown e 40 mg e 40 mg 0-10 MD,Jamie tablet,tim tablet,tim yed release yed release pentoxifyll pentoxifyll 2017-04 No Shallish Unknown Unknown ine ER 400 ine ER 400 0-10 MD,Jamie mg mg tablet,exte tablet,exte nded nded release release polyethylen polyethylen No Shallish 17 Unknown e glycol e glycol MD,Jamie grams 3350 17 3350 17 (1 cap) gram/dose gram/dose in 8 oz oral powder oral powder liquid Senna Plus Senna Plus No Shallish 2 tabs Unknown 8.6 mg-50 8.6 mg-50 MD,Jamie mg tablet mg tablet Metanx Metanx No Shallish 1 Unknown (algal oil) (algal oil) ,Jamie capsule 3 mg-35 3 mg-35 mg-2 mg-2 mg-90.314 mg-90.314 mg capsule mg capsule ipratropium ipratropium No Shallish 1 puff Unknown 20 20 MDJmaie mcg-albuter mcg-albuter ol 100 ol 100 mcg/actuati mcg/actuati on mist for on mist for inhalation inhalation Lantus Lantus No Shallish 38 Unknown Jamie Wright MD units U-100 U-100 Insulin 100 Insulin 100 unit/mL (3 unit/mL (3 mL) mL) subcutaneou subcutaneou s pen s pen acetaminoph acetaminoph No Shallish 2 tabs Unknown en 325 mg en 325 mg ,Jamie tablet tablet Rapaflo 8 Rapaflo 8 2017-04 2019- No Shallish Unknown Unknown mg capsule mg capsule 0-10 06-28 ,Jamie Klor-Con Klor-Con No Shallish 1 Unknown M20 mEq M20 mEq MD,Jamie tablet tablet,exte tablet,exte nded nded release release gabapentin gabapentin No Shallish 1 Unknown 300 mg 300 mg MD,Jamie capsule capsule capsule furosemide furosemide 2017-04 No Shallish Unknown Unknown 20 mg 20 mg 0-10 ,Jamie tablet tablet finasteride finasteride No Shallish 1 Unknown 5 mg tablet 5 mg tablet ,Jamie tablet ferrous ferrous No Shallish 1 Unknown sulfate 325 sulfate 325 ,Jamie tablet mg (65 mg mg (65 mg iron) iron) tablet tablet fenofibrate fenofibrate No Shallish 1 Unknown nanocrystal nanocrystal Jamie DAVID tablet lized 145 lized 145 mg tablet mg tablet ascorbic ascorbic No Shallish 1 tab Unknown acid acid Jamie DAVID (vitamin C) (vitamin C) 500 mg 500 mg tablet tablet amiodarone amiodarone No Shallish 1 tab Unknown 200 mg 200 mg Jamie DAVID tablet tablet cyclobenzap cyclobenzap No Shallish 1 Unknown rine 10 mg rine 10 mg Jamie DAVID tablet tablet tablet Refresh Refresh No Shallish 1 drop Unknown Liquigel 1 Liquigel 1 Jamie DAVID % eye % eye liquid gel liquid gel drops drops Xarelto 20 Xarelto 20 No Shallish 1 tab Unknown mg tablet mg tablet Jamie DAVID Aspirin Aspirin No Shallish 1 tab Unknown [facility] Jamie DAVID 81 mg 81 mg chewable chewable tablet tablet Flonase Flonase No Shallish 1 spray Unknown Allergy Allergy aJmie DAVID Relief 50 Relief 50 mcg/actuati mcg/actuati on nasal on nasal spray,suspe spray,suspe nsion nsion glipiZIDE glipiZIDE No Shallish 0.5 tab Unknown 10 mg 10 mg Jamie DAVID tablet tablet Lovaza 1 Lovaza 1 No Shallish 1 cap Unknown gram gram Jamie DAVID capsule capsule oxyCODONE 5 oxyCODONE 5 No Garcia 2 tabs Unknown mg tablet mg tablet DO,Ponce (10 mg) morphine ER morphine ER No Garcia 1 tab Unknown 15 mg 15 mg DO,Ponce tablet,exte tablet,exte nded nded release release loperamide loperamide No [place] 1-2 Unknown 2 mg tablet 2 mg tablet Latanya DAVID tabs ( 2 tabs after 1st loose stool, then 1 tab up to 4 tabs/da y) clotrimazol clotrimazol No Shallish 1 tab Unknown e 10 mg e 10 mg Jamie DAVID dissolv dutch dutch e in mouth docusate docusate 2017-04 No Shallish Unknown Unknown sodium 100 sodium 100 0-10 MD,Jamie mg capsule mg capsule cyclobenzap cyclobenzap 2017-04 No Shallish Unknown Unknown rine 10 mg rine 10 mg 0-10 MD,Jamie tablet tablet oxyCODONE oxyCODONE 2017-04 No Shallish Unknown Unknown 10 mg 10 mg 0-10 MD,Jamie tablet tablet amiodarone amiodarone 2017-04 No Shallish Unknown Unknown 200 mg 200 mg 0-10 MD,Jamie tablet tablet sucralfate sucralfate 2017-04 No Shallish Unknown Unknown 100 mg/mL 100 mg/mL 0-10 MD,Jamie oral oral suspension suspension fenofibrate fenofibrate 2017-04 No Shallish Unknown Unknown nanocrystal nanocrystal 0-10 MD,Jamie lized 145 lized 145 mg tablet mg tablet ferrous ferrous 2017-04 No Shallish Unknown Unknown sulfate 325 sulfate 325 0-10 MD,Jamie mg (65 mg mg (65 mg iron) iron) tablet tablet gabapentin gabapentin 2017-04 No [place] Unknown Unknown 500 500 0-10 MD,Jamie glipiZIDE glipiZIDE 2017-04 No [place] Unknown Unknown 10 mg 10 mg 0-10 MD,Jamie tablet tablet Glucosamine Glucosamine 2017-04 No [place] Unknown Unknown Chondroitin Chondroitin 0-10 06-28 MD,Jamie PLUS 375 PLUS 375 mg-100 mg-100 mg-36 mg-54 mg-36 mg-54 mg capsule mg capsule levothyroxi levothyroxi 2017-04 No [place] Unknown Unknown ne 200 mcg ne 200 mcg 0-10 MD,Jamie tablet tablet levothyroxi levothyroxi 2017-04 No [place] Unknown Unknown ne 50 mcg ne 50 mcg 0-10 MD,Jamie tablet tablet Lovaza 1 Lovaza 1 2017-04 No [place] Unknown Unknown gram gram 0-10 MD,Jamie capsule capsule rosuvastati rosuvastati 2017-04 No [place] Unknown Unknown n 40 mg n 40 mg 0-10 MD,Jamie tablet tablet rivaroxaban rivaroxaban 2017-04 2019- No [place] Unknown Unknown 20 mg 20 mg 0-10 04-29 MD,Jamie tablet tablet MS Contin MS Contin 2017-04 No [place] Unknown Unknown 30 mg 30 mg 0-10 MD,Jamie tablet,exte tablet,exte nded nded release release Levemir Levemir 2017-04 2018- No [place] Unknown Unknown FlexTouch FlexTouch 0-01 20- ,Jamie U-100 U-100 Insulin 100 Insulin 100 unit/mL (3 unit/mL (3 mL) mL) subcutaneou subcutaneou s pen s pen ondansetron ondansetron 2017-04 No [place] Unknown Unknown 4 mg 4 mg 0- MD,Jamie disintegrat disintegrat ing tablet ing tablet celecoxib celecoxib 2017-04 No [place] Unknown Unknown 200 mg 200 mg 0- MD,Jamie capsule capsule Miralax 17 Miralax 17 2017-04 No [place] Unknown Unknown gram/dose gram/dose 0- MD,Jamie oral powder oral powder sulfamethox sulfamethox 2017-04- No [place] Unknown Unknown azole 400 azole 400 04-24 MD,Jamie mg-trimetho mg-trimetho prim 80 mg prim 80 mg tablet tablet cefUROXime cefUROXime 2017-04- No [place] Unknown Unknown axetil 250 axetil 250 06-05 MD,Jamie mg tablet mg tablet Refresh Refresh 2017-04 No [place] Unknown Unknown Optive 1 Optive 1 06-06 ,Jamie %-0.9 % eye %-0.9 % eye gel drops gel drops Restasis Restasis 2017-04 No [place] Unknown Unknown MultiDose MultiDose - MD,Jamie 0.05 % eye 0.05 % eye drops drops Combivent Combivent 2017-04 No [place] Unknown Unknown Respimat 20 Respimat 20 2- MD,Jamie mcg-100 mcg-100 mcg/actuati mcg/actuati on solution on solution for for inhalation inhalation Levemir Levemir 2017-04 2018- No [place] Unknown Unknown FlexTouch FlexTouch 06-06 ,Jamie U-100 U-100 Insulin 100 Insulin 100 unit/mL (3 unit/mL (3 mL) mL) subcutaneou subcutaneou s pen s pen testosteron testosteron 2017-04 No [place] Unknown Unknown e cypionate e cypionate - ,Latanya Woods 200 mg/mL 200 mg/mL intramuscul intramuscul ar kit ar kit mometasone mometasone 2017-04 No [place] Unknown Unknown 0.1 % 0.1 % 06-06 Latanya DAVID topical topical cream cream finasteride finasteride 2017-04 No [place] Unknown Unknown 5 mg tablet 5 mg tablet 06-06 Latanya DAVID Levemir Levemir 2017-04- No [place] Unknown Unknown FlexTouch FlexTouch 06-06 Latanya DAVID U-100 U-100 Insulin 100 Insulin 100 unit/mL (3 unit/mL (3 mL) mL) subcutaneou subcutaneou s pen s pen Levemir Levemir 2018- No [place] Unknown Unknown FlexTouch FlexTouch 05-01 ,Jamie U-100 U-100 Insulin 100 Insulin 100 unit/mL (3 unit/mL (3 mL) mL) subcutaneou subcutaneou s pen s pen warfarin 5 warfarin 5 2018- Shallish Unknown Unknown mg tablet mg tablet 08-07 ,Jamie warfarin 5 warfarin 5 2018- No [place] Unknown Unknown mg tablet mg tablet 08-09 MD,Jamie warfarin 5 warfarin 5 2018- No [place] Unknown Unknown mg tablet mg tablet 08-13 ,Jamie amoxicillin amoxicillin 2018- No [place] Unknown Unknown 500 mg 500 mg 08-11 MD,Jamie tablet tablet doxycycline doxycycline 2018- No [place] Unknown Unknown hyclate 100 hyclate 100 08-13 ,Jamie mg capsule mg capsule warfarin 5 warfarin 5 2018- No [place] Unknown Unknown mg tablet mg tablet 08-14 MD,Jamie warfarin 5 warfarin 5 2018- No [place] Unknown Unknown mg tablet mg tablet 08-16 MD,Jamie warfarin 5 warfarin 5 2018- No [place] Unknown Unknown mg tablet mg tablet 08-18 MD,Jamie warfarin 5 warfarin 5 2018- No [place] Unknown Unknown mg tablet mg tablet 08-21 MD,Jamie warfarin 5 warfarin 5 2018- No [place] Unknown Unknown mg tablet mg tablet 08-23 MD,Jamie Coumadin Coumadin 2018- No [place] Unknown Unknown 2.5 mg 2.5 mg -17 05-20 MD,Jamie tablet tablet Coumadin Coumadin 2018- No [place] Unknown Unknown 2.5 mg 2.5 mg 08-28-30 MD,Jamie tablet tablet Coumadin Coumadin 2018- No [place] Unknown Unknown 2.5 mg 2.5 mg 09-07 MD,Jamie tablet tablet Coumadin Coumadin 2018- No [place] Unknown Unknown 2.5 mg 2.5 mg 09-07 MD,Jamie tablet tablet Coumadin Coumadin 2018- No [place] Unknown Unknown 2.5 mg 2.5 mg 09-11 MD,Jamie tablet tablet Coumadin Coumadin 2018- No [place] Unknown Unknown 2.5 mg 2.5 mg 09-15- MD,Jamie tablet tablet Eliquis 5 Eliquis 5 No [place] Unknown Unknown mg tablet mg tablet 09-21 MD,Jamie Levemir Levemir No [place] Unknown Unknown FlexTouch FlexTouch 6- ,Jamie U-100 U-100 Insulin 100 Insulin 100 unit/mL (3 unit/mL (3 mL) mL) subcutaneou subcutaneou s pen s pen Prolia 60 Prolia 60 No [place] Unknown Unknown mg/mL mg/mL 11-17 ,Jamie subcutaneou subcutaneou s syringe s syringe cephALEXin cephALEXin 2018- No Benite[place] Unknown Unknown 500 mg 500 mg 12-08 DPM,Thony capsule capsule doxycycline doxycycline 2018-04- Yes [place] Unknown Unknown hyclate 100 hyclate 100 01-25 MD,Jamie mg capsule mg capsule clindamycin clindamycin 2018-04- Yes [place] Unknown Unknown HCl 300 mg HCl 300 mg 01-31 MD,Jamie capsule capsule Vital Signs Vital Name Observation Time Observation Value Comments SYSTOLIC mm[Hg] 2019-04-04 18:09:32 132 mm[Hg] mm[Hg] Method: Sit SYSTOLIC mm[Hg] 2018-01-23 18:02:16 122 mm[Hg] mm[Hg] Method: Stand DIASTOLIC mm[Hg] 2019-04-04 18:09:32 78 mm[Hg] mm[Hg] Method: Sit DIASTOLIC mm[Hg] 2018-01-23 18:02:16 60 mm[Hg] mm[Hg] Method: Stand PULSE 2019-04-04 18:09:32 78 /min /min RESP RATE 2019-04-04 18:09:32 16 /min /min TEMP 2019-04-04 18:09:32 98.2 [degF] Procedures This patient has no known procedures. Results This patient has no known results.
--- OUTSIDE RECORDS SUMMARY | 2019-04-11 14:35 | XMS REPORT ---
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- [place] mellitus mellitus [id number] with foot with foot ulcer ulcer Non-pressur Non-pressur Diagnosis Active Laura e chronic e chronic 1- Jean[place]Cla[place] ulcer of ulcer of [id number] other part other part of right of right foot with foot with fat layer fat layer exposed exposed Non-pressur Non-pressur Diagnosis Active Laura e chronic e chronic 1- [place] ulcer of ulcer of [id number] other part other part of left of left foot with foot with fat layer fat layer exposed exposed Type 2 Type 2 Diagnosis Active 2018-04 Laura diabetes diabetes 0-10 [place] mellitus mellitus [id number] with other with other skin ulcer skin ulcer Non-pressur Non-pressur Diagnosis Active 2018-04 Laura e chronic e chronic 0-10 [place] ulcer of ulcer of [id number] other part other part of right of right lower leg lower leg with fat with fat layer layer exposed exposed 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- [place] mellitus mellitus [id number] with with diabetic diabetic peripheral peripheral angiopathy angiopathy without without gangrene gangrene 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 [id number] (chronic) (chronic) (peripheral (peripheral ) ) 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 disease disease [id number] with heart with heart failure failure Heart Heart Diagnosis Active Laura failure, failure, [place] unspecified unspecified [id number] 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 pectoris pectoris Chronic 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 pulmonary [id number] disease, disease, unspecified unspecified Paroxysmal Paroxysmal Diagnosis Active Laura atrial atrial [place] fibrillatio fibrillatio [id number] n n Anxiety Anxiety Diagnosis Active Laura disorder, disorder, [place] unspecified unspecified [id number] Unspecified Unspecified Diagnosis Active Laura osteoarthri osteoarthri [place] tis, tis, [id number] unspecified unspecified site site Irritable Irritable Diagnosis Active Laura bowel 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 [id number] without without diarrhea diarrhea Benign Benign Diagnosis Active Laura prostatic prostatic [place] hyperplasia hyperplasia [id number] without without lower lower urinary urinary tract tract symptoms symptoms Sleep Sleep Diagnosis Active Laura apnea, apnea, [place] unspecified unspecified [id number] Tremor, Tremor, Diagnosis Active Laura unspecified unspecified [place] [id number] Hypothyroid Hypothyroid Diagnosis Active Laura ism, ism, [place] unspecified unspecified [id number] Hyperlipide Hyperlipide Diagnosis Active Laura clemente, clemente, [place] unspecified unspecified 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) (current) [place] use of use of [id number] insulin insulin scuba diving instructor intermediate Diagnosis Active Laura (current) (current) [place] use of use of [id number] anticoagula anticoagula nts nts 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 (current) (current) [place] use of use of [id number] opiate opiate analgesic analgesic Presence of Presence of Diagnosis Active Laura coronary coronary [place] angioplasty angioplasty [id number] implant and implant and graft graft Personal Personal Diagnosis Active Laura history of history of [place] nicotine 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 dependence dependence Pain frequent Pain Mgmt Resolve 2017-042018-05-08 Roselyn pain d 0-10 08:50:00 (Radha) 11:15: Weller 00 [id number] Cardio edema Cardiovasc Resolve 2017-042018-02-20 Roselyn ular d 0-10 09:50:00 (Radha) 11:15: Weller [id number] Respiratory dyspnea Respirator Resolve 2017-042018-02-15 Roselyn present y d 0-10 10:20:00 (Radha) 11:15: Weller [id number] Endo/Edgard glucose Endo/Edgard Resolve 2017-042018-03-20 Roselyn testing d 0-10 12:30:00 (Radha) dependence 11:15: Weller 00 [id number] Endo/Edgard knowledge/s Endo/Edgard Resolve 2017-042018-03-06 Roselyn kill d 0-10 09:30:00 (Radha) deficit: pt 11:15: Weller 00 [id number] Endo/Edgard anti-coagul Endo/Edgard Resolve 2017-042018-03-20 Roselyn ation d 0-10 12:30:00 (Radha) therapy 11:15: Weller 00 [id number] Endo/Edgard diabetic Endo/Edgard Resolve 2017-042018-03-06 Roselyn foot care d 0-10 09:30:00 (Radha) 11:15: Weller [id number] Sensory impaired Sensory Resolve 2017-042018-03-22 Roselyn hearing d 0-10 09:55:00 (Radha) 11:15: Weller [id number] Integument pressure Integument Resolve 2017-042018-08-21 Roselyn ulcer d 0-10 12:45:00 (Radha) present 11:15: Weller [id number] Integument skin Integument Resolve 2017-042018-03-03 Roselyn integrity d 0-10 09:19:00 (Radha) risk 11:15: Weller [id number] Integument surgical Integument Resolve 2017-042018-03-03 Quality wound d 0-10 09:19:00 Realtime7 present 11:15: 00 Integument other wound Integument Resolve 2017-042018-03-03 Quality present d 0-10 09:19:00 Realtime7 11:15: 00 Elimination urinary Eliminatio Resolve 2017-042018-03-20 Roselyn incontinenc n d 0-10 12:30:00 (Radha) e 11:15: Weller [id number] Neuro confusion Neuro/Emot Resolve 2017-042018-03-22 Roselyn present ion d 0-10 09:55:00 (Radha) 11:15: Weller [id number] Neuro anxiety Neuro/Emot Resolve 2017-042018-03-22 Roselyn present ion d 0-10 09:55:00 (Radha) 11:15: Weller [id number] Neuro impaired Neuro/Emot Resolve 2017-042018-03-22 Roselyn decision-ma ion d 0-10 09:55:00 (Radha) pj 11:15: Weller [id number] Activity ADL Activity Resolve 2017-042018-03-22 Roselyn assistance d 0-10 09:55:00 (Radha) required 11:15: Weller [id number] Safety structural Safety Resolve 2017-042018-03-22 Roselyn barriers d 0-10 09:55:00 (Radha) present 11:15: Weller 00 [id number] Safety fall risk Safety Resolve 2017-042018-03-22 Roselyn factor d 0-10 09:55:00 (Radha) present 11:15: Weller 00 [id number] Safety risk for Safety Resolve 2017-042018-03-22 Roselyn hospitaliza d 0-10 09:55:00 (Radha) tion 11:15: Weller [id number] Safety can be left Safety Resolve 2017-042018-03-22 Roselyn alone for d 0-10 09:55:00 (Radha) only short 11:15: Weller periods 00 [id number] Medication oral med Meds Resolve 2017-042018-02-06 Roselyn assistance d 0-10 09:15:00 (Radha) required 11:15: Weller [id number] Medication injectable Meds Resolve 2017-042018-02-06 Roselyn med d 0-10 09:15:00 (Radha) assistance 11:15: Weller required 00 [id number] Medication knowledge/s Meds Resolve 2017-042018-02-15 Roselyn kill d 0-10 10:20:00 (Radha) deficit: pt 11:15: Weller [id number] Medication potential Meds Resolve 2017-042018-02-15 Roselyn clinically d 0-10 10:20:00 (Radha) significant 11:15: Weller medication 00 [id number] issue Musculoskel transfer Musculoske Resolve 2017-042018-03-20 Roselyn etal assistance letal d 0-10 12:30:00 (Radha) required 11:15: Weller 00 [id number] Musculoskel requires Musculoske Resolve 2017-042018-03-20 Roselyn etal human letal d 0-10 12:30:00 (Radha) assist to 11:15: Weller leave home 00 [id number] Safety knowledge/s Safety Resolve 2017-042018-03-22 Laura kill d 0-12 09:55:00 Jean[place] deficit: pt 10:00: [id number] 00 Respiratory knowledge/s Respirator Resolve 2017-042018-02-06 Laura kill y d 0-15 09:15:00 [place] deficit: cg 10:00: [id number] 00 Respiratory lung sounds Respirator Resolve 2017-042018-02-06 Laura deficit y d 0-15 09:15:00 [place] 10:00: [id number] 00 Sensory impaired Sensory Resolve 2017-042018-03-22 Quality verbal d 0-17 09:55:00 Realtime7 communicati 18:36: on 42 Musculoskel knowledge/s Musculoske Resolve 2017-042018-03-03 Laura etal kill letal d 0-24 09:19:00 [place] deficit: cg 09:45: [id number] 00 Nutrition knowledge/s Nutrition Resolve 2017-042018-03-03 Laura kill d 0-26 09:19:00 [place] deficit: pt 09:15: [id number] 00 Nutrition nutritional Nutrition Resolve 2017-042018-03-03 Laura restriction d 0-26 09:19:00 [place] s 09:15: [id number] 00 Elimination catheter Eliminatio Resolve 2017-042018-03-20 Laura present n d 0-26 12:30:00 [place] 09:15: [id number] 00 Elimination constipatio Eliminatio Resolve 2017-042018-03-20 Laura n n d 0-26 12:30:00 [place] 09:15: [id number] 00 Infection s/s of Infection Resolve 2017-042018-03-22 Laura infection d 0-31 09:55:00 [place] 09:30: [id number] 00 Endo/Edgard insulin Endo/Edgard Resolve 2017-042018-03-20 Laura admn d 04-22 12:30:00 [place] dependence 09:50: [id number] 00 Respiratory dyspnea Respirator Resolve 2017-042018-03-08 Laura present y d 04-24 09:20:00 [place] 10:07: [id number] 00 Safety cannot be Safety Resolve 2017-042018-03-22 Laura left alone d 04-24 09:55:00 [place] 10:07: [id number] 00 Cardio edema Cardiovasc Resolve 2017-042018-03-03 Laura ular d 04-26 09:19:00 [place] 09:51: [id number] 00 Respiratory Incentive Respirator Resolve 2017-042018-03-03 Laura Spirometer y d 04-26 09:19:00 [place] /Acapella 09:51: [id number] Device 00 treatments in home Endo/Edgard knowledge/s Endo/Edgard Resolve 2017-042018-03-20 Laura kill d 05-08 12:30:00 [place] deficit: pt 09:20: [id number] 00 Nutrition knowledge/s Nutrition Resolve 2017-042018-04-19 Laura kill d 05-08 09:45:00 [place] deficit: pt 09:20: [id number] 00 Nutrition nutritional Nutrition Resolve 2017-042018-04-19 Laura restriction d 05-08 09:45:00 [place] roe 09:20: [id number] 00 Endo/Edgard diabetic Endo/Edgard Resolve 2017-042018-03-20 Laura foot care d 05-14 12:30:00 [place] 09:20: [id number] 00 Pain frequent Pain Mgmt Unknown 2017-04 Laura pain 05-18 [place] 12:45: [id number] 00 Respiratory dyspnea Respirator Resolve 2017-042018-03-20 Laura present y d 05-18 12:30:00 [place] 12:45: [id number] 00 Integument pressure Integument Unknown 2017-04 Laura ulcer 05-18 [place] present 12:45: [id number] 00 Integument surgical Integument Resolve 2017-042018-03-24 Laura wound d 05-18 11:23:00 [place] present 12:45: [id number] 00 Endo/Edgard diabetic Endo/Edgard Resolve 2017-042018-03-24 Laura foot care d 05-23 11:23:00 [place] 09:55: [id number] 00 Elimination catheter Eliminatio Resolve 2017-042018-04-19 Laura present n d 05-23 09:45:00 [place] 09:55: [id number] 00 Safety risk for Safety Resolve 2017-042018-04-19 Laura hospitaliza d 05-25 09:45:00 [place] tion 11:23: [id number] 00 Safety can be left Safety Resolve 2017-042018-04-19 Laura alone for d 05-25 09:45:00 [place] only short 11:23: [id number] periods 00 Musculoskel knowledge/s Musculoske Resolve 2017-042018-03-29 Laura etal kill letal d 05-28 09:30:00 [place] deficit: cg 10:20: [id number] 00 Musculoskel requires Musculoske Resolve 2017-042018-04-12 Laura etal human letal d 05-28 09:45:00 Jean[place]Cla[place] assist to 10:20: [id number] leave home 00 Endo/Edgard diabetic Endo/Edgard Resolve 2017-042018-04-19 Laura foot care d 05-30 09:45:00 [place] 09:30: [id number] 00 Elimination constipatio Eliminatio Resolve 2017-042018-04-12 Laura n n d 05-30 09:45:00 [place] 09:30: [id number] 00 Pain frequent Pain Mgmt Unknown 2017-04 Laura pain 06-06 [place] 09:45: [id number] 00 Endo/Edgard insulin Endo/Edgard Resolve 2017-042018-04-19 Laura admn d 06-06 09:45:00 [place] dependence 09:45: [id number] 00 Endo/Edgard anti-coagul Endo/Edgard Resolve 2017-042018-04-19 Laura ation d 06-06 09:45:00 [place] therapy 09:45: [id number] 00 Integument surgical Integument Resolve 2017-042018-04-05 Laura wound d 06-06 09:45:00 [place] present 09:45: [id number] 00 Integument skin Integument Resolve 2017-042018-04-05 Laura integrity d 06-06 09:45:00 [place] risk 09:45: [id number] 00 Integument pressure Integument Unknown 2017-04 Laura ulcer 06-06 [place] present 09:45: [id number] 00 Elimination UTI within Eliminatio Resolve 2017-042018-04-12 Laura past 14 n d 06-06 09:45:00 Jean[place]Cla[place] days 09:45: [id number] 00 Activity ADL Activity Resolve 2017-042018-09-15 Laura assistance d 2- 10:35:00 [place] required 09:45: [id number] 00 Safety fall risk Safety Resolve 2017-042018-04-19 Laura factor d 2 09:45:00 [place] present 09:45: [id number] 00 Medication potential Meds Resolve 2017-042018-04-19 Laura clinically d 2 09:45:00 [place] significant 09:45: [id number] medication 00 issue Medication oral med Meds Resolve 2017-042018-04-05 Shari assistance d 06-06 09:45:00 Regeczi required 09:45: [id number] 00 Medication injectable Meds Resolve 2017-042018-08-09 Shari med d 06-06 09:20:00 Regeczi assistance 09:45: [id number] required 00 Musculoskel transfer Musculoske Resolve 2017-042018-04-12 Shari etal assistance letal d 06-06 09:45:00 Regeczi required 09:45: [id number] 00 Medication oral med Meds Resolve 2017-042018-04-19 Laura assistance d 2 09:45:00 [place] required 10:00: [id number] 00 Medication injectable Meds Unknown 2017-04 Laura med 06-08 [place] assistance 10:00: [id number] required 00 Sensory impaired Sensory Resolve 2017-042018-04-19 Nima verbal d 2- 09:45:00 Graves communicati 15:20: [id number] on 00 Sensory impaired Sensory Resolve 2017-042018-04-19 Nima hearing d 2 09:45:00 Graves 15:20: [id number] 00 Medication injectable Meds Unknown 2017-04 Nhung med - Pérez assistance 14:56: [id number] required 00 Medication injectable Meds Unknown Nima med 04-13 Graves assistance 13:50: [id number] required 00 Elimination constipatio Eliminatio Resolve 2018-04-19 Laura jarvis n d 04-14 09:45:00 [place] 09:28: [id number] 00 Medication injectable Meds Unknown Laura med 04-17 [place] assistance 10:00: [id number] required 00 Medication injectable Meds Resolve 2018-04-19 Laura med d -09 09:45:00 [place] assistance 09:45: [id number] required 00 Endo/Edgard anti-coagul Endo/Edgard Resolve 2018-04-26 Laura ation d -11 10:15:00 [place] therapy 09:45: [id number] 00 Nutrition knowledge/s Nutrition Resolve 2018-04-26 Laura kill d 04-21 10:15:00 [place] deficit: pt 09:45: [id number] 00 Nutrition nutritional Nutrition Resolve 2018-04-26 Laura restriction d 04-21 10:15:00 [place] s 09:45: [id number] 00 Elimination catheter Eliminatio Resolve 2018-04-26 Laura present n d 04-21 10:15:00 [place] 09:45: [id number] 00 Elimination constipatio Eliminatio Resolve 2018-04-26 Laura n n d 04-21 10:15:00 [place] 09:45: [id number] 00 Safety risk for Safety Resolve 2018-04-26 Laura hospitaliza d 04-21 10:15:00 [place] tion 09:45: [id number] 00 Safety can be left Safety Resolve 2018-04-26 Laura alone for d 04-21 10:15:00 [place] only short 09:45: [id number] periods 00 Sensory impaired Sensory Resolve 2018-04-26 Nima verbal d 1-11 10:15:00 Graves communicati 14:30: [id number] on 00 Sensory impaired Sensory Resolve 2018-04-26 Nima hearing d 1-11 10:15:00 Graves 14:30: [id number] 00 Sensory impaired Sensory Resolve 2018-04-28 Nima verbal d 1-17 10:20:00 Graves communicati 12:45: [id number] on 00 Sensory impaired Sensory Resolve 2018-04-28 Nima hearing d 1-17 10:20:00 Graves 12:45: [id number] 00 Endo/Edgard anti-coagul Endo/Edgard Resolve 2018-05-24 Laura ation d 18 12:30:00 [place] therapy 10:20: [id number] 00 Safety risk for Safety Active Laura hospitaliza 1-18 [place] tion 10:20: [id number] 00 Safety can be left Safety Resolve 2018-05-10 Laura alone for d 1- 13:45:00 [place] only short 10:10: [id number] periods 00 Sensory impaired Sensory Resolve 2018-05-10 Jia hearing d 05-05 13:45:00 Hillebrand 13:30: t 00 [id number] Sensory impaired Sensory Resolve 2018-05-10 Jia verbal d 05-05 13:45:00 Hillebrand communicati 13:30: t on [id number] Elimination catheter Eliminatio Resolve 2018-05-08 Wandy present n d 05-08 08:50:00 ,Kaylee 08:50: 00 Elimination constipatio Eliminatio Resolve 2018-06-28 Wandy n n d 05-08 09:45:00 ,Kaylee 08:50: 00 Safety cannot be Safety Resolve 2018-05-10 Laura left alone d 05-08 13:45:00 [place] 08:50: [id number] 00 Elimination catheter Eliminatio Resolve 2018-05-12 Shari present n d 2 09:30:00 Regeczi 09:30: [id number] 00 Safety can be left Safety Resolve 2018-05-17 Laura alone for d 2- 10:00:00 [place] only short 09:30: [id number] Elimination urinary Eliminatio Resolve 2018-05-15 Laura incontinenc n d 2- 08:45:00 [place] e 08:45: [id number] 00 Pain frequent Pain Mgmt Resolve 2018-05-17 Laura pain d 2-06 10:00:00 [place] 10:00: [id number] 00 Respiratory lung sounds Respirator Resolve 2018-05-22 Laura deficit y d 2-06 10:44:00 [place] 10:00: [id number] 00 Integument pressure Integument Unknown Laura ulcer 2- [place] present 10:00: [id number] 00 Integument skin Integument Resolve 2018-05-17 Laura integrity d 2-06 10:00:00 [place] risk 10:00: [id number] 00 Integument surgical Integument Resolve 2018-05-17 Laura wound d 2-06 10:00:00 [place] present 10:00: [id number] 00 Activity ADL Activity Unknown Laura assistance 2- [place] required 10:00: [id number] 00 Activity self-care Activity Resolve 2018-05-19 Laura deficit d 2-06 11:15:00 [place] 10:00: [id number] 00 Safety fall risk Safety Resolve 2018-05-19 Laura factor d 2- 11:15:00 [place] present 10:00: [id number] 00 Elimination urinary Eliminatio Resolve 2018-05-24 [place]berry incontinenc n d 2-08 12:30:00 ,Kaylee e 11:15: 00 Safety can be left Safety Resolve 2018-05-24 Laura alone for d 2- 12:30:00 [place] only short 11:15: [id number] 00 Safety fall risk Safety Resolve 2018-05-24 Sonia White factor d 2-12 12:30:00 present 09:48: 41 Endo/Edgard glucose Endo/Edgard Resolve 2018-05-24 Laura tolerance d 2-13 12:30:00 [place] problem 12:30: [id number] 00 Respiratory Incentive Respirator Resolve 2018-06-07 Laura Spirometer y d 2-15 12:00:00 [place] /Acapella 13:40: [id number] Device 00 treatments in home Endo/Edgard anti-coagul Endo/Edgard Resolve 2018-06-12 Laura ation d 2-15 09:30:00 [place] therapy 13:40: [id number] 00 Elimination urinary Eliminatio Resolve 2018-05-26 Laura incontinenc n d 2-15 13:40:00 [place] e 13:40: [id number] 00 Safety can be left Safety Resolve 2018-06-07 Laura alone for d 2-15 12:00:00 [place] only short 13:40: [id number] periods 00 Endo/Edgard glucose Endo/Edgard Resolve 2018-06-07 Cherrise tolerance d 06-02 12:00:00 Trixie problem 10:15: [id number] 00 Endo/Edgard insulin Endo/Edgard Resolve 2018-06-12 Cherrise admn d 06-02 09:30:00 [place] dependence 10:15: [id number] 00 Endo/Edgard glucose Endo/Edgard Resolve 2018-06-12 Cherrise testing d 06-02 09:30:00 [place] dependence 10:15: [id number] 00 Safety fall risk Safety Resolve 2018-06-07 Cherrise factor d 06-02 12:00:00 [place] present 10:15: [id number] 00 Musculoskel transfer Musculoske Active Cherrise etal assistance letal 06-02 Trixie required 10:15: [id number] 00 Musculoskel requires Musculoske Active Cherrise etal human letal 06-02 Trixie assist to 10:15: [id number] leave home 00 Elimination urinary Eliminatio Resolve 2018-06-07 Laura incontinenc n d 06-05 12:00:00 [place] e 12:30: [id number] 00 Activity self-care Activity Resolve 2018-08-14 Laura deficit d 06-05 12:10:00 [place] 12:30: [id number] 00 Elimination urinary Eliminatio Resolve 2018-06-12 Laura incontinenc n d 06-09 09:30:00 [place] e 09:13: [id number] 00 Safety can be left Safety Resolve 2018-06-12 Laura alone for d 06-09 09:30:00 [place] only short 09:13: [id number] periods 00 Respiratory Incentive Respirator Resolve 2018-06-14 Laura Spirometer y d 06-12 09:30:00 [place] /Acapella 09:30: [id number] Device 00 treatments in home Endo/Edgard anti-coagul Endo/Edgard Resolve 2018-06-30 Laura ation d 06-14 09:19:00 [place] therapy 09:30: [id number] 00 Safety can be left Safety Resolve 2018-06-30 Laura alone for d 3- 09:19:00 [place] only short 09:30: [id number] periods 00 Elimination urinary Eliminatio Resolve 2018-06-19 Laura incontinenc n d 3-08 13:45:00 [place] e 09:45: [id number] 00 Elimination urinary Eliminatio Resolve 2018-06-28 Laura incontinenc n d 3- 09:45:00 [place] e 13:15: [id number] 00 Elimination constipatio Eliminatio Resolve 2018-07-14 Laura n n d 3 09:20:00 [place] 09:19: [id number] 00 Endo/Edgard anti-coagul Endo/Edgard Resolve 2018-07-14 Laura ation d 3 09:20:00 [place] therapy 12:49: [id number] 00 Elimination urinary Eliminatio Resolve 2018-07-14 Laura incontinenc n d 07-03 09:20:00 [place] e 12:49: [id number] 00 Safety can be left Safety Resolve 2018-08-18 Laura alone for d 3- 12:05:00 [place] only short 12:50: [id number] periods 00 Endo/Edgard glucose Endo/Edgard Resolve 2018-07-14 Shi testing d 07-10 09:20:00 Sorin, dependence 12:30: [id number] 00 Pain frequent Pain Mgmt Resolve 2018-07-14 Laura pain d 4 09:20:00 [place] 09:20: [id number] 00 Integument surgical Integument Resolve 2018-08-13 Laura wound d 4-05 12:50:00 [place] present 09:20: [id number] 00 Integument skin Integument Resolve 2018-08-13 Laura integrity d 4-05 12:50:00 [place] risk 09:20: [id number] 00 Safety fall risk Safety Resolve 2018-08-18 Laura factor d 4-05 12:05:00 [place] present 09:20: [id number] 00 Endo/Edgard anti-coagul Endo/Edgard Resolve 2018-08-14 Laura ation d 07-17 12:10:00 [place] therapy 13:00: [id number] 00 Elimination urinary Eliminatio Resolve 2018-07-21 Laura incontinenc n d 07-17 09:25:00 [place] e 13:00: [id number] 00 Activity ADL Activity Unknown Laura assistance 07-17 [place] required 13:00: [id number] 00 Elimination urinary Eliminatio Resolve 2018-08-14 Laura incontinenc n d 07-24 12:10:00 [place] e 09:27: [id number] 00 Pain frequent Pain Mgmt Resolve 2018 Laura pain d 08-07 09:20:00 [place] 12:45: [id number] 00 Cardio edema Cardiovasc Resolve 2018 Laura ular d 08-07 09:20:00 [place] 12:45: [id number] 00 Respiratory dyspnea Respirator Resolve 2018 Laura present y d 08-07 09:20:00 [place] 12:45: [id number] 00 Endo/Edgard diabetic Endo/Edgard Resolve 2018-08-14 Laura foot care d 08-07 12:10:00 [place] 12:45: [id number] 00 Nutrition knowledge/s Nutrition Active Laura kill 08-07 [place] deficit: pt 12:45: [id number] 00 Nutrition nutritional Nutrition Active Laura restriction 08-07 Jean-Cla[place] s 12:45: [id number] 00 Neuro confusion Neuro/Emot Resolve 2018-08-14 Laura present ion d 08-07 12:10:00 [place] 12:45: [id number] 00 Medication oral med Meds Resolve 2018 Laura assistance d 08-07 09:20:00 [place] required 12:45: [id number] 00 Medication injectable Meds Resolve 2018 Jia med d 08-07 09:20:00 Jerardo assistance 12:45: [id number] required 00 Cardio edema Cardiovasc Resolve 2018-08-23 Laura ular d 08-13 11:15:00 [place] 12:50: [id number] 00 Respiratory dyspnea Respirator Resolve 2018-08-14 Laura present y d 08-13 12:10:00 [place] 12:50: [id number] 00 Endo/Edgard anti-coagul Endo/Edgard Resolve 2018-08-28 Laura ation d 08-16 12:00:00 [place] therapy 12:15: [id number] 00 Elimination urinary Eliminatio Resolve 2018-08-21 Laura incontinenc n d 08-16 12:45:00 [place] e 12:15: [id number] 00 Sensory impaired Sensory Resolve 2018-08-21 Krystyna verbal d 08-17 12:45:00 [place] communicati 14:30: [id number] on 00 Sensory impaired Sensory Resolve 2018-08-21 Krystyna hearing d 08-17 12:45:00 [place] 14:30: [id number] 00 Social financial LILLIAN: Resolve 2019-02-16 Krystyna Services resource Social d 08-17 13:45:00 [place] deficit Services 14:30: [id number] 00 Social knowledge/s LILLIAN: Resolve 2018-08-17 Krystyna Services kill Social d 08-17 14:30:00 [place] deficit - Services 14:30: [id number] pt 00 Social knowledge/s LILLIAN: Resolve 2018-08-17 Krystyna Services kill Social d 08-17 14:30:00 [place] deficit - Services 14:30: [id number] cg 00 Safety can be left Safety Resolve 2018-09-07 Laura alone for d 08-23 10:00:00 Jean[place]Cla[place] only short 11:15: [id number] periods 00 Social knowledge/s LILLIAN: Active Laura Services kill Social 08-23 [place] deficit - Services 11:15: [id number] pt 00 Elimination urinary Eliminatio Resolve 2018-09-07 Laura incontinenc n d 08-25 10:00:00 [place] e 11:45: [id number] 00 Sensory impaired Sensory Resolve 2018-09-07 Krystyna verbal d 09-01 10:00:00 [place] communicati 14:45: [id number] on 00 Sensory impaired Sensory Resolve 2018-09-07 [facility]yna hearing d 09[facility]01 [facility] [id number] 00 Social knowledge/s LILLIAN: Active Krystyna Services kill Social 09-01 [facility] 14:45: [id number] cg 00 Respiratory dyspnea Respirator Resolve 2018-09-15 Laura present y d 09-07 10:35:00 Jean-Claude 10:00: [id number] 00 Pain frequent Pain Mgmt Resolve 2018-09-11 Laura pain d 09-11 11:50:00 Jean-Claude 11:50: [id number] 00 Cardio hypertensio Cardiovasc Resolve 2018-09-11 Laura n ular d 09-11 11:50:00 Jean-Claude 11:50: [id number] 00 Integument pressure Integument Resolve 2018-09-15 Laura ulcer d 09-11 10:35:00 Jean-Claude present 11:50: [id number] 00 Integument surgical Integument Resolve 2018-09-15 Laura wound d 09-11 10:35:00 [place] present 11:50: [id number] 00 Integument skin Integument Resolve 2018-09-15 Laura integrity d 09-11 10:35:00 Jean-Claude risk 11:50: [id number] 00 Elimination urinary Eliminatio Resolve 2018-09-11 Laura incontinenc n d 09-11 11:50:00 [place] e 11:50: [id number] 00 Activity ADL Activity Unknown Laura assistance 09-11 Jean-Claude required 11:50: [id number] 00 Activity self-care Activity Resolve 2018-09-15 Laura deficit d 09-11 10:35:00 Jean[place]Cla[place] 11:50: [id number] 00 Safety fall risk Safety Resolve 2018-09-15 Laura factor d 09-11 10:35:00 Jean-Claude present 11:50: [id number] 00 Safety can be left Safety Resolve 2018-09-15 Laura alone for d 09-11 10:35:00 Jean-Claude only short 11:50: [id number] periods 00 Endo/Edgard anti-coagul Endo/Edgard Resolve 2018-09-18 Laura ation d 6-07 12:20:00 [place] therapy 10:35: [id number] 00 Elimination urinary Eliminatio Resolve 2018-09-18 Laura incontinenc n d 09-15 12:20:00 Jean[place]Cla[place] e 10:35: [id number] 00 Elimination constipatio Eliminatio Resolve 2018-09-18 Laura n n d 09-15 12:20:00 Jean[place] 10:35: [id number] 00 Safety can be left Safety Resolve 2018-09-25 Laura alone for d 09-18 11:45:00 Jean[place]Cla[place] only short 12:20: [id number] periods 00 Cardio hypertensio Cardiovasc Resolve 2018-09-21 Laura n ular d 09-21 11:45:00 [place] 11:45: [id number] 00 Endo/Edgard anti-coagul Endo/Edgard Resolve 2018-09-25 Laura ation d 09-21 11:45:00 Jean[place]Cla[place] therapy 11:45: [id number] 00 Cardio hypertensio Cardiovasc Resolve 2018-10-02 Laura n ular d 09-25 12:05:00 Jean-Claude 11:45: [id number] 00 Elimination urinary Eliminatio Resolve 2018-10-02 Laura incontinenc n d 09-25 12:05:00 Jean-Cla[place] e 11:45: [id number] 00 Endo/Edgard anti-coagul Endo/Edgard Resolve 2018-10-02 Laura ation d 09-29 12:05:00 Jean-Cla[place] therapy 09:45: [id number] 00 Safety can be left Safety Resolve 2018-10-02 Laura alone for d 09-29 12:05:00 Jean-Cla[place] only short 09:45: [id number] periods 00 Endo/Edgard anti-coagul Endo/Edgard Resolve 2018-10-27 Laura ation d 10-04 11:30:00 Jean-Claude therapy 10:10: [id number] 00 Elimination urinary Eliminatio Resolve 2018-10-06 Laura incontinenc n d 10-04 09:10:00 [place]Cla[place] e 10:10: [id number] 00 Elimination constipatio Eliminatio Resolve 2018-10-06 Laura n n d 10-04 09:10:00 Jean[place] 10:10: [id number] 00 Safety can be left Safety Resolve 2018-10-06 Laura alone for d 10-04 09:10:00 Jean-Cla[place] only short 10:10: [id number] periods 00 Sensory impaired Sensory Resolve 2018-10-23 Krystyna verbal d 6 11:56:00 [place] communicati 15:00: [id number] on 00 Sensory impaired Sensory Resolve 2018-10-23 Krystyna hearing d 10-05 11:56:00 [place] 15:00: [id number] 00 Elimination urinary Eliminatio Resolve 2018-10-27 Laura incontinenc n d 10-09 11:30:00 Jean-Claude e 12:15: [id number] 00 Elimination bloody Eliminatio Resolve 2018-10-27 Laura urine n d 10-09 11:30:00 Jean-Claude 12:15: [id number] 00 Safety can be left Safety Resolve 2018-10-23 Laura alone for d 10-09 11:56:00 Jean-Cla[place] only short 12:15: [id number] Elimination constipatio Eliminatio Resolve 2018-12-08 Laura n n d 10-16 14:00:00 Jean-Claude 12:35: [id number] 00 Cardio edema Cardiovasc Resolve 2018-10-27 Laura ular d 10-20 11:30:00 Jean-Claude 11:35: [id number] 00 Endo/Edgard knowledge/s Endo/Edgard Resolve 2018-10-27 Laura kill d 10-20 11:30:00 Jean[place]Cla[place] deficit: pt 11:35: [id number] 00 Sensory impaired Sensory Unknown Jonatan verbal 7-15 Demarco, communicati 13:30: PT on [id number] Sensory impaired Sensory Unknown Jonatan hearing 7-15 Demarco, 13:30: PT 00 [id number] Safety can be left Safety Resolve 2018-10-27 Laura alone for d 7- 11:30:00 Jean-Claude only short 10:35: [id number] periods 00 Endo/Edgard glucose Endo/Edgard Resolve 2018-12-11 Cherrise tolerance d 10-30 09:30:00 Trixie problem 11:55: [id number] 00 Endo/Edgard insulin Endo/Edgard Resolve 2018-12-13 Cherrise admn d 10-30 11:10:00 [place] dependence 11:55: [id number] 00 Endo/Edgard glucose Endo/Edgard Resolve 2018-12-13 Cherrise testing d 10-30 11:10:00 [place] dependence 11:55: [id number] 00 Endo/Edgard knowledge/s Endo/Edgard Resolve 2018-12-08 Cherrise kill d 10-30 14:00:00 [place] deficit: pt 11:55: [id number] 00 Elimination urinary Eliminatio Resolve 2018-12-08 Cherrise urgency n d 10-30 14:00:00 Trixie 11:55: [id number] 00 Neuro depressive Neuro/Emot Resolve 2018-12-08 Cherrise feelings ion d 10-30 14:00:00 [place] present 11:55: [id number] 00 Neuro impaired Neuro/Emot Resolve 2018-12-08 Cherrise decision-ma ion d 10-30 14:00:00 [place] pj 11:55: [id number] 00 Safety fall risk Safety Resolve 2018-12-06 Cherrise factor d 10-30 13:05:00 [place] present 11:55: [id number] 00 Endo/Edgard anti-coagul Endo/Edgard Resolve 2018-12-13 Shi ation d 11-01 11:10:00 Sorin, therapy 12:30: [id number] 00 Respiratory Incentive Respirator Resolve 2018-11-29 Cherrise Spirometer y d 11-03 10:15:00 Trixie /Acapella 10:25: [id number] Device 00 treatments in home Elimination urinary Eliminatio Resolve 2018-12-08 Cherrise frequency n d 11-03 14:00:00 [place] 10:25: [id number] 00 Respiratory lung sounds Respirator Resolve 2018-11-29 Cherrise deficit y d 11-06 10:15:00 Trixie 12:05: [id number] 00 Neuro memory Neuro/Emot Resolve 2018-12-08 Cherrise deficit ion d 7-31 14:00:00 [place] needing 10:30: [id number] supervision 00 Pain frequent Pain Mgmt Resolve 2018-12-06 Shi pain d 11-10 13:05:00 Sorin, 11:00: [id number] 00 Integument pressure Integument Active Shi ulcer 11-10 Sorin, present 11:00: [id number] 00 Integument surgical Integument Active Shi wound 11-10 Sorin, present 11:00: [id number] 00 Integument skin Integument Active Shi integrity 11-10 Sorin, risk 11:00: [id number] 00 Elimination urinary Eliminatio Resolve 2018-12-08 Shi incontinenc n d 11-10 14:00:00 Sorin, e 11:00: [id number] 00 Activity self-care Activity Resolve 2018-11-29 Shi deficit d 11-10 10:15:00 Sorin, 11:00: [id number] 00 Activity ADL Activity Resolve 2018-12-08 Shi assistance d 11-10 14:00:00 Sorin, required 11:00: [id number] 00 Pain knowledge/s Pain Mgmt Resolve 2018-12-06 Krystyna kill d 11-16 13:05:00 [place] deficit: cg 15:15: [id number] 00 Respiratory knowledge/s Respirator Resolve 2018-11-29 Krystyna kill y d 11-16 10:15:00 [place] deficit: cg 15:15: [id number] 00 Integument knowledge/s Integument Active 2018- Krystyna kill 11-16 [place] deficit: cg 15:15: [id number] 00 Elimination knowledge/s Eliminatio Resolve 2018-12-08 Krystyna kill n d 11-16 14:00:00 [place] deficit: cg 15:15: [id number] 00 Safety knowledge/s Safety Resolve 2018-12-06 Krystyna kill d 11-16 13:05:00 [place] deficit: cg 15:15: [id number] 00 Cardio hypertensio Cardiovasc Resolve 2018-11-29 Lenny ruiz d 11-17 10:15:00 Trixie 10:45: [id number] 00 Safety can be left Safety Resolve 2018-12-08 Shi alone for d 11-22 14:00:00 nancy Rowell 11:00: [id number] periods 00 Sensory impaired Sensory Resolve 2018-12-08 Laura verbal d 11-24 14:00:00 Jean-Claude communicati 09:30: [id number] on Sensory impaired Sensory Resolve 2018-12-08 Laura hearing d 11-24 14:00:00 [place] 09:30: [id number] 00 Respiratory knowledge/s Respirator Resolve 2018-12-08 Laura kill y d 12-01 14:00:00 [place] deficit: cg 09:30: [id number] 00 Sensory impaired Sensory Unknown Krystyna verbal 12-08 [place] communicati 15:00: [id number] on Sensory impaired Sensory Unknown Krystyna hearing 12-08 [place] 15:00: [id number] 00 Respiratory knowledge/s Respirator Resolve 2018-12-13 Laura kill y d 12-11 11:10:00 [place] deficit: cg 09:30: [id number] 00 Endo/Edgard knowledge/s Endo/Edgard Resolve 2018-12-13 Laura kill d 12-11 11:10:00 [place] deficit: pt 09:30: [id number] 00 Elimination urinary Eliminatio Resolve 2018-12-15 Laura incontinenc n d 12-11 13:10:00 Jean-Cla[place] e 09:30: [id number] 00 Safety can be left Safety Resolve 2018-12-15 Laura alone for d 12-11 13:10:00 Jean-Cla[place] only short 09:30: [id number] 00 Endo/Edgard knowledge/s Endo/Edgard Resolve 2019-01-05 Laura kill d 12-15 11:00:00 [place] deficit: pt 13:10: [id number] 00 Endo/Edgard anti-coagul Endo/Edgard Resolve 2019-01-05 Laura ation d 12-15 11:00:00 Jean-Cla[place] therapy 13:10: [id number] 00 Elimination urinary Eliminatio Resolve 2018-12-27 Laura incontinenc n d 12-18 09:20:00 [place] e 12:10: [id number] 00 Safety can be left Safety Resolve 2019-01-05 Laura alone for d 12-18 11:00:00 Jean-Cla[place] only short 12:10: [id number] periods 00 Elimination constipatio Eliminatio Resolve 2019-01-05 Laura n n d 12-20 11:00:00 Jean-Claude 12:15: [id number] 00 Pain frequent Pain Mgmt Resolve 2019-01-15 Laura pain d 12-27 12:30:00 Jean-Claude 09:20: [id number] 00 Respiratory dyspnea Respirator Resolve 2019-01-05 Laura present y d 12-27 11:00:00 Jean-Claude 09:20: [id number] 00 Endo/Edgard diabetic Endo/Edgard Resolve 2019-01-05 Laura foot care d 12-27 11:00:00 Jean-Claude 09:20: [id number] 00 Elimination diarrhea Eliminatio Resolve 2019-01-05 Laura n d 12-27 11:00:00 Jean-Claude 09:20: [id number] 00 Neuro confusion Neuro/Emot Resolve 2019-01-05 Laura present ion d 12-27 11:00:00 Jean-Claude 09:20: [id number] 00 Neuro anxiety Neuro/Emot Resolve 2019-01-05 Laura present ion d 12-27 11:00:00 Jean-Claude 09:20: [id number] 00 Activity ADL Activity Resolve 2019-01-05 Laura assistance d 12-27 11:00:00 Jean-[place] required 09:20: [id number] 00 Activity self-care Activity Resolve 2019-01-05 Laura deficit d 12-27 11:00:00 Jean-Claude 09:20: [id number] 00 Safety fall risk Safety Resolve 2019-01-05 Laura factor d 9-18 11:00:00 [place] present 09:20: [id number] 00 Medication potential Meds Resolve 2019-01-05 Laura clinically d 9-18 11:00:00 [place] significant 09:20: [id number] medication 00 issue Elimination urinary Eliminatio Resolve 2019-01-05 Laura incontinenc n d 920 11:00:00 [place] e 11:20: [id number] 00 Endo/Edgard knowledge/s Endo/Edgard Resolve 2019-01-10 Laura kill d 01-08 10:00:00 Jean-[place] deficit: pt 11:30: [id number] 00 Endo/Edgard anti-coagul Endo/Edgard Resolve 2019-01-10 Laura ation d 01-08 10:00:00 Jean-Claude therapy 11:30: [id number] 00 Elimination urinary Eliminatio Resolve 2019-01-15 Laura incontinenc n d 01-08 12:30:00 Jean-[place] e 11:30: [id number] 00 Safety can be left Safety Resolve 2019-02-16 Laura alone for d 01-08 12:00:00 Jean-[place] only short 11:30: [id number] periods 00 Respiratory dyspnea Respirator Resolve 2018-042019-01-26 Laura present y d 0-02 10:00:00 Jean-Claude 10:00: [id number] 00 Activity ADL Activity Resolve 2018-042019-01-12 Laura assistance d 0-02 11:30:00 [place] required 10:00: [id number] 00 Activity self-care Activity Resolve 2018-042019-01-12 Laura deficit d 0-02 11:30:00 Jean-[place]ude 10:00: [id number] 00 Safety fall risk Safety Resolve 2018-042019-01-12 Laura factor d 0-02 11:30:00 Jean-Cla[place] present 10:00: [id number] 00 Medication injectable Meds Resolve 2018-042019-01-17 Laura med d 0-02 09:45:00 [place] assistance 10:00: [id number] required 00 Endo/Edgard knowledge/s Endo/Edgard Resolve 2018-042019-01-15 Laura kill d 0-04 12:30:00 Jean[place] deficit: pt 11:30: [id number] 00 Endo/Edgard anti-coagul Endo/Edgard Resolve 2018-042019-01-15 Laura ation d 0-04 12:30:00 [place] therapy 11:30: [id number] 00 Elimination constipatio Eliminatio Resolve 2018-042019-01-15 Laura n n d 0-04 12:30:00 [place] 11:30: [id number] 00 Sensory impaired Sensory Resolve 2018-042019-01-15 Krystyna verbal d 0-04 12:30:00 [place] communicati 15:30: [id number] on 00 Sensory impaired Sensory Resolve 2018-042019-01-15 Krystyna hearing d 0-04 12:30:00 [place] 15:30: [id number] 00 Infection s/s of Infection Resolve 2018-042019-03-09 Laura infection d 0-07 11:00:00 [place] 12:30: [id number] 00 Sensory impaired Sensory Resolve 2018-042019-01-22 Jonatan verbal d 0-08 11:00:00 ambrosio Pal 13:00: PT on [id number] Sensory impaired Sensory Resolve 2018-042019-01-22 Jonatan hearing d 0-08 11:00:00 Demarco, 13:00: PT 00 [id number] Endo/Edgard knowledge/s Endo/Edgard Resolve 2018-042019-02-07 Laura kill d 0-09 11:20:00 [place] deficit: pt 09:45: [id number] 00 Endo/Edgard anti-coagul Endo/Edgard Resolve 2018-042019-02-07 Laura ation d 0-09 11:20:00 [place] therapy 09:45: [id number] 00 Elimination urinary Eliminatio Resolve 2018-042019-02-02 Laura incontinenc n d 0-09 11:30:00 [place] e 09:45: [id number] 00 Elimination constipatio Eliminatio Resolve 2018-042019-02-02 Laura n n d 0-16 11:30:00 [place] 10:00: [id number] 00 Sensory impaired Sensory Resolve 2018-042019-01-31 Jonatan verbal d 0-17 11:10:00 ambrosio Pal 15:00: PT on 192269-3 Sensory impaired Sensory Resolve 2019-1 2019-01-31 Jonatan hearing d 0-17 11:10:00 Demarco, 15:00: PT 00 [id number] Pain frequent Pain Mgmt Resolve 2018-042019-02-16 Jonatan pain d 0-23 12:00:00 Demarco, 13:00: PT 00 [id number] Sensory impaired Sensory Unknown 2018-04 Jonatan verbal 0-23 Demarco, communicati 13:00: PT on 00 [id number] Sensory impaired Sensory Unknown 2018-04 Jonatan hearing 0-23 Demarco, 13:00: PT 00 411684-0 Respiratory dyspnea Respirator Resolve 2018-042019-02-07 Laura present y d 0-25 11:20:00 [place] 11:30: [id number] 00 Elimination urinary Eliminatio Resolve 2018-042019-02-07 Laura incontinenc n d 0-28 11:20:00 [place] e 12:40: [id number] 00 Endo/Edgard knowledge/s Endo/Edgard Resolve 2018-042019-02-19 Laura kill d 04-11 12:40:00 [place] deficit: pt 12:30: [id number] 00 Endo/Edgard anti-coagul Endo/Edgard Resolve 2018-042019-02-19 Laura ation d 04-11 12:40:00 [place] therapy 12:30: [id number] 00 Elimination urinary Eliminatio Resolve 2018-042019-02-16 Laura incontinenc n d 04-11 12:00:00 [place] e 12:30: [id number] 00 Medication potential Meds Resolve 2018-042019-02-24 Laura clinically d 1 09:45:00 Jean-Cla[place] significant 12:20: [id number] medication 00 issue Elimination constipatio Eliminatio Resolve 2018-042019-02-16 Laura n n d 04-16 12:00:00 [place] 11:20: [id number] 00 Elimination urinary Eliminatio Resolve 2018-042019-02-24 Laura incontinenc n d 04-21 09:45:00 [place] e 12:40: [id number] 00 Safety can be left Safety Resolve 2018-042019-02-24 Laura alone for d 04-21 09:45:00 Jean-Claude only short 12:40: [id number] periods 00 Endo/Edgard knowledge/s Endo/Edgard Resolve 2018-042019-02-24 Laura kill d 1-13 09:45:00 [place] deficit: pt 12:05: [id number] 00 Endo/Edgard anti-coagul Endo/Edgard Resolve 2018-042019-02-24 Laura ation d 1- 09:45:00 Jean-[place] therapy 12:05: [id number] 00 Sensory impaired Sensory Resolve 2018-042019-02-26 Laura verbal d 04-26 13:20:00 Jean-Claude communicati 09:45: [id number] on 00 Sensory impaired Sensory Resolve 2018-042019-02-26 Laura hearing d 16 13:20:00 Jean-Claude 09:45: [id number] 00 Endo/Edgard knowledge/s Endo/Edgard Resolve 2018-042019-02-28 Laura kill d 04-28 11:15:00 [place] deficit: pt 13:20: [id number] 00 Endo/Edgard anti-coagul Endo/Edgard Resolve 2018-042019-02-28 Laura ation d 04-28 11:15:00 [place] therapy 13:20: [id number] 00 Elimination urinary Eliminatio Resolve 2018-042019-03-09 Laura incontinenc n d 04-28 11:00:00 Jean-[place] e 13:20: [id number] 00 Safety can be left Safety Resolve 2018-042019-03-05 Laura alone for d 04-28 12:45:00 [place] only short 13:20: [id number] periods 00 Endo/Edgard knowledge/s Endo/Edgard Resolve 2018-042019-03-09 Laura kill d 05-05 11:00:00 [place] deficit: pt 12:45: [id number] 00 Endo/Edgard anti-coagul Endo/Edgard Resolve 2018-042019-03-09 Laura ation d 05-05 11:00:00 [place] therapy 12:45: [id number] 00 Safety can be left Safety Resolve 2018-042019-03-09 Laura alone for d 05-07 11:00:00 Jean-[place] only short 11:25: [id number] periods 00 Sensory impaired Sensory Resolve 2018-042019-03-12 Krystyna verbal d 05-09 11:15:00 Kendrickunstein communicati 12:00: [id number] on 00 Sensory impaired Sensory Resolve 2018-042019-03-12 Krystyna hearing d 05-09 11:15:00 [facility] 12[facility]: [id number] 00 Social financial LILLIAN: Active 2018-04 Krystyna Services resource Social 05-09 [facility] 12:00: [id number] 00 Respiratory dyspnea Respirator Resolve 2018-042019-03-14 Laura present y d 05-13 10:30:00 Jean-Claude 11:15: [id number] 00 Endo/Edgard knowledge/s Endo/Edgard Resolve 2018-042019-04-02 Laura kill d 05-13 11:45:00 [place] deficit: pt 11:15: [id number] 00 Endo/Edgard anti-coagul Endo/Edgard Resolve 2018-042019-04-02 Laura ation d 05-13 11:45:00 [place] therapy 11:15: [id number] 00 Elimination urinary Eliminatio Resolve 2018-042019-03-14 Laura incontinenc n d 05-13 10:30:00 Jean-Claude e 11:15: [id number] 00 Activity ADL Activity Resolve 2018-042019-03-14 Laura assistance d 05-13 10:30:00 [place] required 11:15: [id number] 00 Activity self-care Activity Resolve 2018-042019-03-14 Laura deficit d 05-13 10:30:00 Jean-Claude 11:15: [id number] 00 Safety fall risk Safety Resolve 2018-042019-03-14 Laura factor d 05-13 10:30:00 Jean-Cla[place] present 11:15: [id number] 00 Safety can be left Safety Resolve 2018-042019-03-14 Laura alone for d 05-13 10:30:00 Jean-Cla[place] only short 11:15: [id number] periods 00 Medication injectable Meds Resolve 2018-042019-03-12 Laura med d 05-13 11:15:00 [place] assistance 11:15: [id number] required 00 Safety can be left Safety Resolve 2018-042019-03-19 Laura alone for d 05-17 11:40:00 Jean-Cla[place] only short 09:15: [id number] periods 00 Elimination urinary Eliminatio Resolve 2018-042019-03-30 Laura incontinenc n d 05-20 10:45:00 [place] e 11:40: [id number] 00 Safety can be left Safety Resolve 2018-042019-03-26 Laura alone for d 2-11 11:00:00 [place] only short 11:30: [id number] 00 Safety can be left Safety Resolve 2018-042019-03-30 Laura alone for d 2-18 10:45:00 Jean[place] only short 10:30: [id number] 00 Elimination urinary Eliminatio Active 2018-04 Laura incontinenc n 2- [place] e 11:45: [id number] 00 Safety can be left Safety Resolve 2018-042019-04-06 Laura alone for d 2- 10:50:00 [place] only short 11:45: [id number] 00 Endo/Edgard knowledge/s Endo/Edgard Resolve 2018-042019-04-06 Laura kill d 06-05 10:50:00 [place] deficit: pt 14:48: [id number] 00 Endo/Edgard anti-coagul Endo/Edgard Resolve 2018-042019-04-06 Laura ation d 06-05 10:50:00 [place] therapy 14:48: [id number] 00 Endo/Edgard knowledge/s Endo/Edgard Active 2018-04 Laura kill Jean-Cla[place] deficit: pt 12:15: [id number] 00 Endo/Edgard anti-coagul Endo/Edgard Active 2018-04 Laura ation [place] therapy 12:15: [id number] 00 Elimination constipatio Eliminatio Active 2018-04 Laura n n Jean-Claude 12:15: [id number] 00 Safety can be left Safety Active 2018-04 Laura alone for 2 [place] only short 12:15: [id number] 00 Allergies, Adverse Reactions, Alerts Allergy Name Allergy Status Severity Reaction(s) Onset Inactive Treating Comments Type Date Date Clinician bananas Unknown Active Unknown Reaction 2017-04 Roselyn Unknown 0-10 (Radha) Nithin [id number] keflex Unknown Active Unknown Reaction 2017-04 Roselyn Unknown 0-10 (Radha) Nithin [id number] nuts Unknown Active Unknown Reaction 2017-04 Roselyn Unknown 0-10 (Radha) Nithin [id number] Cipro Medication Active Unknown Reaction 2017-04 Sonia White Name ID Unknown 0-10 metronidazol Base Active Unknown Nausea and 2017-04 Roselyn e Ingredient vomiting 2-20 Jordan [id number] Medications Ordered Filled Start Stop Current Ordering [...] Shallish 17 Unknown e glycol e glycol ,Jamie grams 3350 17 3350 17 (1 cap) [...] No Shallish 1 puff Unknown 20 20 MD,Jamie mcg-albuter mcg-albuter ol 100 ol 100 mcg/actuati mcg/actuati on mist for on mist for inhalation inhalation Lantus Iainus No Shallish 38 Unknown Jamie Wright MD units U-100 U-100 Insulin 100 Insulin 100 unit/mL (3 unit/mL (3 mL) mL) subcutaneou subcutaneou s pen s pen acetaminoph acetaminoph No Shallish 2 tabs Unknown en 325 mg en 325 mg ,Jamie tablet tablet Rapaflo 8 Rapaflo 8 2017-04 2019- No Shallish Unknown Unknown mg capsule mg capsule 0-10-06 Jamie DAVID Klor-Con Klor-Con No Shallish 1 Unknown M20 mEq M20 mEq Jamie DAVID tablet tablet,exte tablet,exte nded nded release release gabapentin gabapentin No Shallish 1 Unknown 300 mg 300 mg Jamie DAVID capsule capsule capsule furosemide furosemide 2017-04 No [...] 1 tab Unknown 200 mg 200 mg MDJamie tablet tablet cyclobenzap cyclobenzap No Shallish 1 [...] No Shallish 1 spray Unknown Allergy Allergy Jamie DAVID Relief 50 Relief 50 mcg/actuati mcg/actuati on nasal on nasal spray,suspe spray,suspe nsion nsion glipiZIDE glipiZIDE No Shallish 0.5 tab Unknown 10 mg 10 mg MD,Jamie tablet tablet Lovaza 1 Lovaza 1 No Shallish 1 cap Unknown gram gram MD,Jamie capsule capsule oxyCODONE 5 oxyCODONE 5 No Garcia 2 tabs Unknown mg tablet mg tablet DO,Ponce (10 mg) morphine ER morphine ER No Garcia 1 tab Unknown 15 mg 15 mg DO,Ponce tablet,exte tablet,exte nded nded release release loperamide loperamide No [place] 1-2 Unknown 2 mg tablet 2 mg tablet Latanya DAVID T tabs ( 2 tabs after 1st loose stool, then 1 tab up to 4 tabs/da y) clotrimazol clotrimazol No Shallish 1 tab Unknown e 10 mg e 10 mg MD,Jamie dissolv dutch dutch e in mouth docusate [...] 0-10 MD,Jamie tablet tablet Glucosamine Glucosamine 2017-04 2019- No Shallish Unknown Unknown Chondroitin Chondroitin 0-10 [...] mg 0-10 MD,Jamie tablet tablet rivaroxaban rivaroxaban 2017-04- No Shallish Unknown Unknown 20 mg 20 mg 0-10 04-29 MD,Jamie tablet tablet MS Contin MS Contin 2017-04 No Shallish Unknown Unknown 30 mg 30 mg 0-10 MD,Jamie tablet,exte tablet,exte nded nded release release Levemir Levemir 2017-04- No Shallish Unknown Unknown FlexTouch FlexTouch 0-10 12- MD,Jamie U-100 U-100 Insulin 100 Insulin 100 unit/mL (3 unit/mL (3 mL) mL) subcutaneou subcutaneou s pen s pen ondansetron ondansetron 2017-04 No Shallish Unknown Unknown 4 mg 4 mg 0-10 MD,Jamie disintegrat disintegrat ing tablet ing tablet celecoxib celecoxib 2017-04 No Shallish Unknown Unknown 200 mg 200 mg 0-10 MD,Jamie capsule capsule Miralax 17 Miralax 17 2017-04 No Shallish Unknown Unknown gram/dose gram/dose 0-29 MD,Jamie oral powder oral powder sulfamethox sulfamethox 2017-04- No Shallish Unknown Unknown azole 400 azole 400 04-24- MD,Jamie mg-trimetho mg-trimetho prim 80 mg prim 80 mg tablet tablet cefUROXime cefUROXime 2017-04- No Shallish Unknown Unknown axetil 250 axetil 250 06-05- MD,Jamie mg tablet mg tablet Refresh Refresh 2017-04 No Shallish Unknown Unknown Optive 1 Optive 1 2- MD,Jamie %-0.9 % eye %-0.9 % eye gel drops gel drops Restasis Restasis 2017-04 No Shallish Unknown Unknown MultiDose MultiDose 2- MD,Jamie 0.05 % eye 0.05 % eye drops drops Combivent Combivent 2017-04 No Shallish Unknown Unknown Respimat 20 Respimat 20 06-06 ,Jamie mcg-100 mcg-100 mcg/actuati mcg/actuati on solution on solution for for inhalation inhalation Levemir Levemir 2017-04- Shallish Unknown Unknown FlexTouch FlexTouch 06-06 Jamie DAVID U-100 U-100 Insulin 100 Insulin 100 unit/mL (3 unit/mL (3 mL) mL) subcutaneou subcutaneou s pen s pen testosteron testosteron 2017-04 No [place] Unknown Unknown e cypionate e cypionate 06-06 Latanya DAVID 200 mg/mL 200 mg/mL intramuscul intramuscul ar kit ar kit mometasone mometasone 2017-04 No [place] Unknown Unknown 0.1 % 0.1 % 06-06 Latanya DAVID topical topical cream cream finasteride finasteride 2017-04 No [place] Unknown Unknown 5 mg tablet 5 mg tablet 06-06 Latanya DAVID Levemir Levemir 2017-04 2019- No [place] Unknown Unknown FlexTouch FlexTouch 06-06 Latanya DAVID U-100 U-100 Insulin 100 Insulin 100 unit/mL (3 unit/mL (3 mL) mL) subcutaneou subcutaneou s pen s pen Levemir Levemir 2018- No Shallish Unknown Unknown FlexTouch FlexTouch 05-01 06-10 Jamie DAVID U-100 U-100 Insulin 100 Insulin 100 unit/mL (3 unit/mL (3 mL) mL) subcutaneou subcutaneou s pen s pen warfarin 5 warfarin 5 2018- No Shallish Unknown Unknown mg tablet mg tablet 08-07 MD,Jamie warfarin 5 warfarin 5 2018- No Shallish Unknown Unknown mg tablet mg tablet 08-09 MD,Jamie warfarin 5 warfarin 5 2018- No Shallish Unknown Unknown mg tablet mg tablet 08-13 MD,Jamie amoxicillin amoxicillin 2018- No Shallish Unknown Unknown 500 mg 500 mg 08-11 MD,Jamie tablet tablet doxycycline doxycycline 2018- No Shallish Unknown Unknown hyclate 100 hyclate 100 08-13 MD,Jamie mg capsule mg capsule warfarin 5 warfarin 5 2018- Shallish Unknown Unknown mg tablet mg tablet 08-14- MD,Jamie warfarin 5 warfarin 5 2018- Shallish Unknown Unknown mg tablet mg tablet 08-16 MD,Jamie warfarin 5 warfarin 5 2018- No Shallish Unknown Unknown mg tablet mg tablet 08-18 MD,Jamie warfarin 5 warfarin 5 2018- Shallish Unknown Unknown mg tablet mg tablet 08-21 MD,Jamie warfarin 5 warfarin 5 2018- No Shallish Unknown Unknown mg tablet mg tablet 08-23 MD,Jamie Coumadin Coumadin 2018- Shallish Unknown Unknown 2.5 mg 2.5 mg 08-25 MD,Jamie tablet tablet Coumadin Coumadin 2018- Shallish Unknown Unknown 2.5 mg 2.5 mg 08-28 MD,Jamie tablet tablet Coumadin Coumadin 2018- Shallish Unknown Unknown 2.5 mg 2.5 mg 09-0730 MD,Jamie tablet tablet Coumadin Coumadin 2018- No Shallish Unknown Unknown 2.5 mg 2.5 mg 09-07- MD,Jamie tablet tablet Coumadin Coumadin 2018- Shallish Unknown Unknown 2.5 mg 2.5 mg 09-11- MD,Jamie tablet tablet Coumadin Coumadin 2018- Shallish Unknown Unknown 2.5 mg 2.5 mg 09-15- MD,Jamie tablet tablet Eliquis 5 Eliquis 5 No Shallish Unknown Unknown mg tablet mg tablet 09-21 MD,Jamie Levemir Levemir No Shallish Unknown Unknown FlexTouch FlexTouch 6-10 MD,Jamie U-100 U-100 Insulin 100 Insulin 100 unit/mL (3 unit/mL (3 mL) mL) subcutaneou subcutaneou s pen s pen Prolia 60 Prolia 60 No Shallish Unknown Unknown mg/mL mg/mL 8- MD,Jamie subcutaneou subcutaneou s syringe s syringe cephALEXin cephALEXin 2019- No Benitez Unknown Unknown 500 mg 500 mg 8-30 09-01 DPM,Thony capsule capsule doxycycline doxycycline 2018-04- Yes Shallish Unknown Unknown hyclate 100 hyclate 100 001-25 MD,Jamie mg capsule mg capsule clindamycin clindamycin 2018-04- Yes Shallish Unknown Unknown HCl 300 mg HCl 300 mg 001-31 MD,Jamie capsule capsule Vital Signs Vital Name Observation Time Observation Value Comments SYSTOLIC mm[Hg] 2019-04-09 18:09:37 136 mm[Hg] mm[Hg] Method: Sit SYSTOLIC mm[Hg] 2018-01-23 18:02:16 122 mm[Hg] mm[Hg] Method: Stand DIASTOLIC mm[Hg] 2019-04-09 18:09:37 78 mm[Hg] mm[Hg] Method: Sit DIASTOLIC mm[Hg] 2018-01-23 18:02:16 60 mm[Hg] mm[Hg] Method: Stand PULSE 2019-04-09 18:09:37 78 /min /min RESP RATE 2019-04-09 18:09:37 16 /min /min TEMP 2019-04-09 18:09:37 98.3 [degF] Procedures This patient has no known procedures. Results This patient has no known results.
--- OUTSIDE RECORDS SUMMARY | 2019-04-11 14:35 | XMS REPORT ---
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- Franklin mellitus mellitus [id number] with foot with foot ulcer ulcer Non-pressur Non-pressur Diagnosis Active Laura e chronic e chronic 1- Jean-Claude ulcer of ulcer of [id number] other part other part of right of right foot with foot with fat layer fat layer exposed exposed Non-pressur Non-pressur Diagnosis Active Laura e chronic e chronic 1- Jean-Claude ulcer of ulcer of [id number] other part other part of left of left foot with foot with fat layer fat layer exposed exposed Type 2 Type 2 Diagnosis Active 2018-04 Laura diabetes diabetes 0-10 Franklin mellitus mellitus [id number] with other with other skin ulcer skin ulcer Non-pressur Non-pressur Diagnosis Active 2018-04 Laura e chronic e chronic 0-10 Franklin ulcer of ulcer of [id number] other part other part of right of right lower leg lower leg with fat with fat layer layer exposed exposed 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- Jean-Claude mellitus mellitus [id number] with with diabetic diabetic peripheral peripheral angiopathy angiopathy without without gangrene gangrene 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 [id number] (chronic) (chronic) (peripheral (peripheral ) ) 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, failure, Jean-Claude unspecified unspecified 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 angina pectoris pectoris Chronic 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 pulmonary [id number] disease, disease, unspecified unspecified Paroxysmal Paroxysmal Diagnosis Active Laura atrial atrial Jean-Calude fibrillatio fibrillatio [id number] n n Anxiety Anxiety Diagnosis Active Laura disorder, disorder, Franklin unspecified unspecified [id number] Unspecified Unspecified Diagnosis Active Laura osteoarthri osteoarthri Franklin tis, tis, [id number] unspecified unspecified site site Irritable Irritable Diagnosis Active Laura bowel 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 [id number] without without diarrhea diarrhea Benign Benign Diagnosis Active Laura prostatic prostatic Jean-Claude hyperplasia hyperplasia [id number] without without lower lower urinary urinary tract tract symptoms symptoms Sleep Sleep Diagnosis Active Laura apnea, apnea, Jean-Claude unspecified unspecified [id number] Tremor, Tremor, Diagnosis Active Laura unspecified unspecified [place] [id number] Hypothyroid Hypothyroid Diagnosis Active Laura ism, ism, Franklin unspecified unspecified [id number] Hyperlipide Hyperlipide Diagnosis Active Laura clemente, clemente, Jean-Claude unspecified unspecified [id number] 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 (current) (current) [place] use of use of [id number] insulin insulin moth exterminator group home Diagnosis Active Laura (current) (current) Franklin use of use of [id number] anticoagula anticoagula nts nts 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 (current) (current) Jean-Claude use of use of [id number] opiate opiate analgesic analgesic Presence of Presence of Diagnosis Active Laura coronary coronary Jean-Claude angioplasty angioplasty [id number] implant and implant and graft graft Personal Personal Diagnosis Active Laura history of history of Jean-Claude nicotine nicotine 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 dependence dependence Pain frequent Pain Mgmt Resolve 2017-042018-05-08 Roselyn pain d 0-10 08:50:00 (Radha) 11:15: Weller 00 [id number] Cardio edema Cardiovasc Resolve 2017-042018-02-20 Roselyn ular d 0-10 09:50:00 (Radha) 11:15: Weller [id number] Respiratory dyspnea Respirator Resolve 2017-042018-02-15 Roselyn present y d 0-10 10:20:00 (Radha) 11:15: Weller [id number] Endo/Edgard glucose Endo/Edgard Resolve 2017-042018-03-20 Roselyn testing d 0-10 12:30:00 (Radha) dependence 11:15: Weller 00 [id number] Endo/Edgard knowledge/s Endo/Edgard Resolve 2017-042018-03-06 Roselyn kill d 0-10 09:30:00 (Radha) deficit: pt 11:15: Weller 00 [id number] Endo/Edgard anti-coagul Endo/Edgard Resolve 2017-042018-03-20 Roselyn ation d 0-10 12:30:00 (Radha) therapy 11:15: Weller 00 [id number] Endo/Edgard diabetic Endo/Edgard Resolve 2017-042018-03-06 Roselyn foot care d 0-10 09:30:00 (Radha) 11:15: Weller [id number] Sensory impaired Sensory Resolve 2017-042018-03-22 Roselyn hearing d 0-10 09:55:00 (Radha) 11:15: Weller [id number] Integument pressure Integument Resolve 2017-042018-08-21 Roselyn ulcer d 0-10 12:45:00 (Radha) present 11:15: Weller [id number] Integument skin Integument Resolve 2017-042018-03-03 Roselyn integrity d 0-10 09:19:00 (Radha) risk 11:15: Weller [id number] Integument surgical Integument Resolve 2017-042018-03-03 Quality wound d 0-10 09:19:00 Realtime7 present 11:15: 00 Integument other wound Integument Resolve 2017-042018-03-03 Quality present d 0-10 09:19:00 Realtime7 11:15: 00 Elimination urinary Eliminatio Resolve 2017-042018-03-20 Roselyn incontinenc n d 0-10 12:30:00 (Radha) e 11:15: Weller [id number] Neuro confusion Neuro/Emot Resolve 2017-042018-03-22 Roselyn present ion d 0-10 09:55:00 (Radha) 11:15: Weller [id number] Neuro anxiety Neuro/Emot Resolve 2017-042018-03-22 Roselyn present ion d 0-10 09:55:00 (Radha) 11:15: Weller [id number] Neuro impaired Neuro/Emot Resolve 2017-042018-03-22 Roselyn decision-ma ion d 0-10 09:55:00 (Radha) pj 11:15: [place]er [id number] Activity ADL Activity Resolve 2017-042018-03-22 Roselyn assistance d 0-10 09:55:00 (Radha) required 11:15: Weller [id number] Safety structural Safety Resolve 2017-042018-03-22 Roselyn barriers d 0-10 09:55:00 (Radha) present 11:15: Weller 00 [id number] Safety fall risk Safety Resolve 2017-042018-03-22 Roselyn factor d 0-10 09:55:00 (Radha) present 11:15: Weller 00 [id number] Safety risk for Safety Resolve 2017-042018-03-22 Roselyn hospitaliza d 0-10 09:55:00 (Radha) tion 11:15: Weller [id number] Safety can be left Safety Resolve 2017-042018-03-22 Roselyn alone for d 0-10 09:55:00 (Radha) only short 11:15: Weller periods 00 [id number] Medication oral med Meds Resolve 2017-042018-02-06 Roselyn assistance d 0-10 09:15:00 (Radha) required 11:15: Weller [id number] Medication injectable Meds Resolve 2017-042018-02-06 Roselyn med d 0-10 09:15:00 (Radha) assistance 11:15: Weller required 00 [id number] Medication knowledge/s Meds Resolve 2017-042018-02-15 Roselyn kill d 0-10 10:20:00 (Radha) deficit: pt 11:15: Weller [id number] Medication potential Meds Resolve 2017-042018-02-15 Roselyn clinically d 0-10 10:20:00 (Radha) significant 11:15: Weller medication 00 [id number] issue Musculoskel transfer Musculoske Resolve 2017-042018-03-20 Roselyn etal assistance letal d 0-10 12:30:00 (Radha) required 11:15: Weller 00 [id number] Musculoskel requires Musculoske Resolve 2017-042018-03-20 Roselyn etal human letal d 0-10 12:30:00 (Radha) assist to 11:15: Weller leave home 00 [id number] Safety knowledge/s Safety Resolve 2017-042018-03-22 Laura kill d 0-12 09:55:00 Jean-Claude deficit: pt 10:00: [id number] 00 Respiratory knowledge/s Respirator Resolve 2017-042018-02-06 Laura kill y d 0-15 09:15:00 Jean-Claude deficit: cg 10:00: [id number] 00 Respiratory lung sounds Respirator Resolve 2017-042018-02-06 Laura deficit y d 0-15 09:15:00 Franklin 10:00: [id number] 00 Sensory impaired Sensory Resolve 2017-042018-03-22 Quality verbal d 0-17 09:55:00 Realtime7 communicati 18:36: on 42 Musculoskel knowledge/s Musculoske Resolve 2017-042018-03-03 Laura etal kill letal d 0-24 09:19:00 Jean-Claude deficit: cg 09:45: [id number] 00 Nutrition knowledge/s Nutrition Resolve 2017-042018-03-03 Laura kill d 0-26 09:19:00 Jean-Claude deficit: pt 09:15: [id number] 00 Nutrition nutritional Nutrition Resolve 2017-042018-03-03 Laura restriction d 0-26 09:19:00 Jean-Claude s 09:15: [id number] 00 Elimination catheter Eliminatio Resolve 2017-042018-03-20 Laura present n d 0-26 12:30:00 Jean-Claude 09:15: [id number] 00 Elimination constipatio Eliminatio Resolve 2017-042018-03-20 Laura n n d 0-26 12:30:00 Jean-Claude 09:15: [id number] 00 Infection s/s of Infection Resolve 2017-042018-03-22 Laura infection d 0-31 09:55:00 Jean-Claude 09:30: [id number] 00 Endo/Edgard insulin Endo/Edgard Resolve 2017-042018-03-20 Luara admn d 04-22 12:30:00 Franklin dependence 09:50: [id number] 00 Respiratory dyspnea Respirator Resolve 2017-042018-03-08 Lauar present y d 04-24 09:20:00 Jean-Claude 10:07: [id number] 00 Safety cannot be Safety Resolve 2017-042018-03-22 Laura left alone d 04-24 09:55:00 Jean-Claude 10:07: [id number] 00 Cardio edema Cardiovasc Resolve 2017-042018-03-03 Laura ular d 04-26 09:19:00 Jean-Claude 09:51: [id number] 00 Respiratory Incentive Respirator Resolve 2017-042018-03-03 Laura Spirometer y d 04-26 09:19:00 Franklin /Acapella 09:51: [id number] Device 00 treatments in home Endo/Edgard knowledge/s Endo/Edgard Resolve 2017-042018-03-20 Laura kill d 05-08 12:30:00 Jean-Claude deficit: pt 09:20: [id number] 00 Nutrition knowledge/s Nutrition Resolve 2017-042018-04-19 Laura kill d 05-08 09:45:00 Franklin deficit: pt 09:20: [id number] 00 Nutrition nutritional Nutrition Resolve 2017-042018-04-19 Laura restriction d 05-08 09:45:00 Jean-Claude roe 09:20: [id number] 00 Endo/Edgard diabetic Endo/Edgard Resolve 2017-042018-03-20 Laura foot care d 05-14 12:30:00 Jean-Claude 09:20: [id number] 00 Pain frequent Pain Mgmt Unknown 2017-04 Laura pain 05-18 Jean-Claude 12:45: [id number] 00 Respiratory dyspnea Respirator Resolve 2017-042018-03-20 Laura present y d 05-18 12:30:00 Jean-Claude 12:45: [id number] 00 Integument pressure Integument Unknown 2017-04 Laura ulcer 05-18 Franklin present 12:45: [id number] 00 Integument surgical Integument Resolve 2017-042018-03-24 Laura wound d 05-18 11:23:00 Jean-Claude present 12:45: [id number] 00 Endo/Edgard diabetic Endo/Edgard Resolve 2017-042018-03-24 Laura foot care d 05-23 11:23:00 Jean-Claude 09:55: [id number] 00 Elimination catheter Eliminatio Resolve 2017-042018-04-19 Laura present n d 05-23 09:45:00 Jean-Claude 09:55: [id number] 00 Safety risk for Safety Resolve 2017-042018-04-19 Laura hospitaliza d 05-25 09:45:00 Jean-Claude tion 11:23: [id number] 00 Safety can be left Safety Resolve 2017-042018-04-19 Laura alone for d 05-25 09:45:00 Jean-Claude only short 11:23: [id number] periods 00 Musculoskel knowledge/s Musculoske Resolve 2017-042018-03-29 Laura etal kill letal d 05-28 09:30:00 Jean-Claude deficit: cg 10:20: [id number] 00 Musculoskel requires Musculoske Resolve 2017-042018-04-12 Laura etal human letal d 05-28 09:45:00 Jean-Claude assist to 10:20: [id number] leave home 00 Endo/Edgard diabetic Endo/Edgard Resolve 2017-042018-04-19 Laura foot care d 05-30 09:45:00 Jean-Claude 09:30: [id number] 00 Elimination constipatio Eliminatio Resolve 2017-042018-04-12 Laura n n d 05-30 09:45:00 Jean-Claude 09:30: [id number] 00 Pain frequent Pain Mgmt Unknown 2017-04 Laura pain 06-06 Jean-Claude 09:45: [id number] 00 Endo/Edgard insulin Endo/Edgard Resolve 2017-042018-04-19 Laura admn d 06-06 09:45:00 Jean-Claude dependence 09:45: [id number] 00 Endo/Edgard anti-coagul Endo/Edgard Resolve 2017-042018-04-19 Laura ation d 06-06 09:45:00 Jean-Claude therapy 09:45: [id number] 00 Integument surgical Integument Resolve 2017-042018-04-05 Laura wound d 06-06 09:45:00 Jean-Claude present 09:45: [id number] 00 Integument skin Integument Resolve 2017-042018-04-05 Laura integrity d 06-06 09:45:00 Jean-Claude risk 09:45: [id number] 00 Integument pressure Integument Unknown 2017-04 Laura ulcer 06-06 Franklin present 09:45: [id number] 00 Elimination UTI within Eliminatio Resolve 2017-042018-04-12 Laura past 14 n d 06-06 09:45:00 Jean-Claude days 09:45: [id number] 00 Activity ADL Activity Resolve 2017-042018-09-15 Laura assistance d 2- 10:35:00 Franklin required 09:45: [id number] 00 Safety fall risk Safety Resolve 2017-042018-04-19 Laura factor d 2 09:45:00 Jean-Claude present 09:45: [id number] 00 Medication potential Meds Resolve 2017-042018-04-19 Laura clinically d 2 09:45:00 Franklin significant 09:45: [id number] medication 00 issue Medication oral med Meds Resolve 2017-042018-04-05 Shari assistance d 06-06 09:45:00 Regeczi required 09:45: [id number] 00 Medication injectable Meds Resolve 2017-042018-08-09 Shari med d 06-06 09:20:00 Regeczi assistance 09:45: [id number] required 00 Musculoskel transfer Musculoske Resolve 2017-042018-04-12 Shari etal assistance letal d 06-06 09:45:00 Regeczi required 09:45: [id number] 00 Medication oral med Meds Resolve 2017-042018-04-19 Laura assistance d 2 09:45:00 Jean-Claude required 10:00: [id number] 00 Medication injectable Meds Unknown 2017-04 Laura med 06-08 Jean-Claude assistance 10:00: [id number] required 00 Sensory impaired Sensory Resolve 2017-042018-04-19 Nima verbal d 2- 09:45:00 Graves communicati 15:20: [id number] on 00 Sensory impaired Sensory Resolve 2017-042018-04-19 Nima hearing d 2 09:45:00 Graves 15:20: [id number] 00 Medication injectable Meds Unknown 2017-04 Nhung med - Pérez assistance 14:56: [id number] required 00 Medication injectable Meds Unknown Nima med 04-13 Graves assistance 13:50: [id number] required 00 Elimination constipatio Eliminatio Resolve 2018-04-19 Laura jarvis n d 04-14 09:45:00 Jean-Claude 09:28: [id number] 00 Medication injectable Meds Unknown Laura med 04-17 Jean-Claude assistance 10:00: [id number] required 00 Medication injectable Meds Resolve 2018-04-19 Laura med d -09 09:45:00 [place] assistance 09:45: [id number] required 00 Endo/Edgard anti-coagul Endo/Edgard Resolve 2018-04-26 Laura ation d -11 10:15:00 Jean-Claude therapy 09:45: [id number] 00 Nutrition knowledge/s Nutrition Resolve 2018-04-26 Laura kill d 04-21 10:15:00 Jean-Claude deficit: pt 09:45: [id number] 00 Nutrition nutritional Nutrition Resolve 2018-04-26 Laura restriction d 04-21 10:15:00 Jean-Claude s 09:45: [id number] 00 Elimination catheter Eliminatio Resolve 2018-04-26 Laura present n d 04-21 10:15:00 Jean-Claude 09:45: [id number] 00 Elimination constipatio Eliminatio Resolve 2018-04-26 Laura n n d 04-21 10:15:00 Jean-Claude 09:45: [id number] 00 Safety risk for Safety Resolve 2018-04-26 Laura hospitaliza d 04-21 10:15:00 Jean-Claude tion 09:45: [id number] 00 Safety can be left Safety Resolve 2018-04-26 Laura alone for d 04-21 10:15:00 Jean-Claude only short 09:45: [id number] periods 00 Sensory impaired Sensory Resolve 2018-04-26 Nima verbal d 1-11 10:15:00 Graves communicati 14:30: [id number] on 00 Sensory impaired Sensory Resolve 2018-04-26 Nima hearing d 1-11 10:15:00 Graves 14:30: [id number] 00 Sensory impaired Sensory Resolve 2018-04-28 Nima verbal d 1-17 10:20:00 Graves communicati 12:45: [id number] on 00 Sensory impaired Sensory Resolve 2018-04-28 Nima hearing d 1-17 10:20:00 Graves 12:45: [id number] 00 Endo/Edgard anti-coagul Endo/Edgard Resolve 2018-05-24 Laura ation d 18 12:30:00 Franklin therapy 10:20: [id number] 00 Safety risk for Safety Active Laura hospitaliza 1-18 Jean-Claude tion 10:20: [id number] 00 Safety can be left Safety Resolve 2018-05-10 Laura alone for d 1- 13:45:00 Jean-Claude only short 10:10: [id number] periods 00 Sensory impaired Sensory Resolve 2018-05-10 Jia hearing d 05-05 13:45:00 Hillebrand 13:30: t 00 [id number] Sensory impaired Sensory Resolve 2018-05-10 Jia verbal d 05-05 13:45:00 Hillebrand communicati 13:30: t on [id number] Elimination catheter Eliminatio Resolve 2018-05-08 Wandy present n d 05-08 08:50:00 ,Kaylee 08:50: 00 Elimination constipatio Eliminatio Resolve 2018-06-28 Wandy n n d 05-08 09:45:00 ,Kaylee 08:50: 00 Safety cannot be Safety Resolve 2018-05-10 Laura left alone d 05-08 13:45:00 Jean-Claude 08:50: [id number] 00 Elimination catheter Eliminatio Resolve 2018-05-12 Shari present n d 2 09:30:00 Regeczi 09:30: [id number] 00 Safety can be left Safety Resolve 2018-05-17 Laura alone for d 2- 10:00:00 Jean-Claude only short 09:30: [id number] Elimination urinary Eliminatio Resolve 2018-05-15 Laura incontinenc n d 2- 08:45:00 Jean-Claude e 08:45: [id number] 00 Pain frequent Pain Mgmt Resolve 2018-05-17 Laura pain d 2-06 10:00:00 Jean-Claude 10:00: [id number] 00 Respiratory lung sounds Respirator Resolve 2018-05-22 Laura deficit y d 2-06 10:44:00 Jean-Claude 10:00: [id number] 00 Integument pressure Integument Unknown Laura ulcer 2- Franklin present 10:00: [id number] 00 Integument skin Integument Resolve 2018-05-17 Laura integrity d 2-06 10:00:00 Jean-Claude risk 10:00: [id number] 00 Integument surgical Integument Resolve 2018-05-17 Laura wound d 2-06 10:00:00 Franklin present 10:00: [id number] 00 Activity ADL Activity Unknown Laura assistance 2- Jean-Claude required 10:00: [id number] 00 Activity self-care Activity Resolve 2018-05-19 Laura deficit d 2-06 11:15:00 Jean-Claude 10:00: [id number] 00 Safety fall risk Safety Resolve 2018-05-19 Laura factor d 2- 11:15:00 Franklin present 10:00: [id number] 00 Elimination urinary Eliminatio Resolve 2018-05-24 [place]berry incontinenc n d 2-08 12:30:00 ,Kaylee e 11:15: 00 Safety can be left Safety Resolve 2018-05-24 Laura alone for d 2- 12:30:00 Jean-Claude only short 11:15: [id number] 00 Safety fall risk Safety Resolve 2018-05-24 Sonia White factor d 2-12 12:30:00 present 09:48: 41 Endo/Edgard glucose Endo/Edgard Resolve 2018-05-24 Laura tolerance d 2-13 12:30:00 Franklin problem 12:30: [id number] 00 Respiratory Incentive Respirator Resolve 2018-06-07 Laura Spirometer y d 2-15 12:00:00 Franklin /Acapella 13:40: [id number] Device 00 treatments in home Endo/Edgard anti-coagul Endo/Edgard Resolve 2018-06-12 Laura ation d 2-15 09:30:00 Franklin therapy 13:40: [id number] 00 Elimination urinary Eliminatio Resolve 2018-05-26 Laura incontinenc n d 2-15 13:40:00 Jean-Claude e 13:40: [id number] 00 Safety can be left Safety Resolve 2018-06-07 Laura alone for d 2-15 12:00:00 Jean-Claude only short 13:40: [id number] periods 00 Endo/Edgard glucose Endo/Edgard Resolve 2018-06-07 Cherrise tolerance d 06-02 12:00:00 Trixie problem 10:15: [id number] 00 Endo/Edgard insulin Endo/Edgard Resolve 2018-06-12 Cherrise admn d 06-02 09:30:00 [place] dependence 10:15: [id number] 00 Endo/Edgard glucose Endo/Edgard Resolve 2018-06-12 Cherrise testing d 06-02 09:30:00 [place] dependence 10:15: [id number] 00 Safety fall risk Safety Resolve 2018-06-07 Cherrise factor d 06-02 12:00:00 [place] present 10:15: [id number] 00 Musculoskel transfer Musculoske Active Cherrise etal assistance letal 06-02 Trixie required 10:15: [id number] 00 Musculoskel requires Musculoske Active Cherrise etal human letal 06-02 Trixie assist to 10:15: [id number] leave home 00 Elimination urinary Eliminatio Resolve 2018-06-07 Laura incontinenc n d 06-05 12:00:00 Jean-Claude e 12:30: [id number] 00 Activity self-care Activity Resolve 2018-08-14 Laura deficit d 06-05 12:10:00 Jean-Claude 12:30: [id number] 00 Elimination urinary Eliminatio Resolve 2018-06-12 Laura incontinenc n d 06-09 09:30:00 Jean-Claude e 09:13: [id number] 00 Safety can be left Safety Resolve 2018-06-12 Laura alone for d 06-09 09:30:00 Jean-Claude only short 09:13: [id number] periods 00 Respiratory Incentive Respirator Resolve 2018-06-14 Laura Spirometer y d 06-12 09:30:00 Jean-Claude /Acapella 09:30: [id number] Device 00 treatments in home Endo/Edgard anti-coagul Endo/Edgard Resolve 2018-06-30 Laura ation d 06-14 09:19:00 Jean-Claude therapy 09:30: [id number] 00 Safety can be left Safety Resolve 2018-06-30 Laura alone for d 3- 09:19:00 Jean-Claude only short 09:30: [id number] periods 00 Elimination urinary Eliminatio Resolve 2018-06-19 Laura incontinenc n d 3-08 13:45:00 Franklin e 09:45: [id number] 00 Elimination urinary Eliminatio Resolve 2018-06-28 Laura incontinenc n d 3- 09:45:00 Jean-Claude e 13:15: [id number] 00 Elimination constipatio Eliminatio Resolve 2018-07-14 Laura n n d 3 09:20:00 Jean-Claude 09:19: [id number] 00 Endo/Edgard anti-coagul Endo/Edgard Resolve 2018-07-14 Laura ation d 3 09:20:00 Jean-Claude therapy 12:49: [id number] 00 Elimination urinary Eliminatio Resolve 2018-07-14 Laura incontinenc n d 07-03 09:20:00 Jean-Claude e 12:49: [id number] 00 Safety can be left Safety Resolve 2018-08-18 Laura alone for d 3- 12:05:00 Jean-Claude only short 12:50: [id number] periods 00 Endo/Edgard glucose Endo/Edgard Resolve 2018-07-14 Shi testing d 07-10 09:20:00 Sorin, dependence 12:30: [id number] 00 Pain frequent Pain Mgmt Resolve 2018-07-14 Laura pain d 4 09:20:00 Jean-Claude 09:20: [id number] 00 Integument surgical Integument Resolve 2018-08-13 Laura wound d 4-05 12:50:00 [place] present 09:20: [id number] 00 Integument skin Integument Resolve 2018-08-13 Laura integrity d 4-05 12:50:00 Jean-Claude risk 09:20: [id number] 00 Safety fall risk Safety Resolve 2018-08-18 Laura factor d 4-05 12:05:00 [place] present 09:20: [id number] 00 Endo/Edgard anti-coagul Endo/Edgard Resolve 2018-08-14 Laura ation d 07-17 12:10:00 [place] therapy 13:00: [id number] 00 Elimination urinary Eliminatio Resolve 2018-07-21 Laura incontinenc n d 07-17 09:25:00 [place] e 13:00: [id number] 00 Activity ADL Activity Unknown Laura assistance 07-17 Jean-Claude required 13:00: [id number] 00 Elimination urinary Eliminatio Resolve 2018-08-14 Laura incontinenc n d 07-24 12:10:00 Jean-Claude e 09:27: [id number] 00 Pain frequent Pain Mgmt Resolve 2018 Laura pain d 08-07 09:20:00 Jean-Claude 12:45: [id number] 00 Cardio edema Cardiovasc Resolve 2018 Laura ular d 08-07 09:20:00 Jean-Claude 12:45: [id number] 00 Respiratory dyspnea Respirator Resolve 2018 Laura present y d 08-07 09:20:00 Jean-Claude 12:45: [id number] 00 Endo/Edgard diabetic Endo/Edgard Resolve 2018-08-14 Laura foot care d 08-07 12:10:00 Jean-Claude 12:45: [id number] 00 Nutrition knowledge/s Nutrition Active Laura kill 08-07 Jean-Claude deficit: pt 12:45: [id number] 00 Nutrition nutritional Nutrition Active Laura restriction 08-07 Jean-Claude s 12:45: [id number] 00 Neuro confusion Neuro/Emot Resolve 2018-08-14 Laura present ion d 08-07 12:10:00 Jean-Claude 12:45: [id number] 00 Medication oral med Meds Resolve 2018 Laura assistance d 08-07 09:20:00 Jean-Claude required 12:45: [id number] 00 Medication injectable Meds Resolve 2018 Jia med d 08-07 09:20:00 Jerardo assistance 12:45: [id number] required 00 Cardio edema Cardiovasc Resolve 2018-08-23 Laura ular d 08-13 11:15:00 [place] 12:50: [id number] 00 Respiratory dyspnea Respirator Resolve 2018-08-14 Laura present y d 08-13 12:10:00 Jean-Claude 12:50: [id number] 00 Endo/Edgard anti-coagul Endo/Edgard Resolve 2018-08-28 Laura ation d 08-16 12:00:00 [place] therapy 12:15: [id number] 00 Elimination urinary Eliminatio Resolve 2018-08-21 Laura incontinenc n d 08-16 12:45:00 [place] e 12:15: [id number] 00 Sensory impaired Sensory Resolve 2018-08-21 Krystyna verbal d 08-17 12:45:00 [place] communicati 14:30: [id number] on 00 Sensory impaired Sensory Resolve 2018-08-21 Krystyna hearing d 08-17 12:45:00 [place] 14:30: [id number] 00 Social financial LILLIAN: Resolve 2019-02-16 Krystyna Services resource Social d 08-17 13:45:00 [place] deficit Services 14:30: [id number] 00 Social knowledge/s LILLIAN: Resolve 2018-08-17 Krystyna Services kill Social d 08-17 14:30:00 [place] deficit - Services 14:30: [id number] pt 00 Social knowledge/s LILLIAN: Resolve 2018-08-17 Krystyna Services kill Social d 08-17 14:30:00 [place] deficit - Services 14:30: [id number] cg 00 Safety can be left Safety Resolve 2018-09-07 Laura alone for d 08-23 10:00:00 Jean-Claude only short 11:15: [id number] periods 00 Social knowledge/s LILLIAN: Active Laura Services kill Social 08-23 [place] deficit - Services 11:15: [id number] pt 00 Elimination urinary Eliminatio Resolve 2018-09-07 Laura incontinenc n d 08-25 10:00:00 Jean-Claude e 11:45: [id number] 00 Sensory impaired Sensory Resolve 2018-09-07 Krystyna verbal d 09-01 10:00:00 [place] communicati 14:45: [id number] on 00 Sensory impaired Sensory Resolve 2018-09-07 Krystyna hearing d 09-01 [facility]:00[facility] 14:45: [id number] 00 Social knowledge/s LILLIAN: Active Krystyna Services kill Social 09-01 [facility] deficit - Services 14:45: [id number] cg 00 Respiratory dyspnea Respirator Resolve 2018-09-15 Laura present y d 09-07 10:35:00 Jean-Claude 10:00: [id number] 00 Pain frequent Pain Mgmt Resolve 2018-09-11 Laura pain d 09-11 11:50:00 Jean-Claude 11:50: [id number] 00 Cardio hypertensio Cardiovasc Resolve 2018-09-11 Laura n ular d 09-11 11:50:00 Jean-Claude 11:50: [id number] 00 Integument pressure Integument Resolve 2018-09-15 Laura ulcer d 09-11 10:35:00 Jean-Claude present 11:50: [id number] 00 Integument surgical Integument Resolve 2018-09-15 Laura wound d 09-11 10:35:00 [place] present 11:50: [id number] 00 Integument skin Integument Resolve 2018-09-15 Laura integrity d 09-11 10:35:00 Jean-Claude risk 11:50: [id number] 00 Elimination urinary Eliminatio Resolve 2018-09-11 Laura incontinenc n d 09-11 11:50:00 Franklin e 11:50: [id number] 00 Activity ADL Activity Unknown Laura assistance 09-11 Jean-Claude required 11:50: [id number] 00 Activity self-care Activity Resolve 2018-09-15 Laura deficit d 09-11 10:35:00 Jean-Claude 11:50: [id number] 00 Safety fall risk Safety Resolve 2018-09-15 Laura factor d 09-11 10:35:00 Jean-Claude present 11:50: [id number] 00 Safety can be left Safety Resolve 2018-09-15 Laura alone for d 09-11 10:35:00 Jean-Claude only short 11:50: [id number] periods 00 Endo/Edgard anti-coagul Endo/Edgard Resolve 2018-09-18 Laura ation d 6-07 12:20:00 [place] therapy 10:35: [id number] 00 Elimination urinary Eliminatio Resolve 2018-09-18 Laura incontinenc n d 09-15 12:20:00 Jean-Claude e 10:35: [id number] 00 Elimination constipatio Eliminatio Resolve 2018-09-18 Laura n n d 09-15 12:20:00 Jean-Claude 10:35: [id number] 00 Safety can be left Safety Resolve 2018-09-25 Laura alone for d 09-18 11:45:00 Jean-Claude only short 12:20: [id number] periods 00 Cardio hypertensio Cardiovasc Resolve 2018-09-21 Laura n ular d 09-21 11:45:00 Jean-Claude 11:45: [id number] 00 Endo/Edgard anti-coagul Endo/Edgard Resolve 2018-09-25 Laura ation d 09-21 11:45:00 Jean-Claude therapy 11:45: [id number] 00 Cardio hypertensio Cardiovasc Resolve 2018-10-02 Laura n ular d 09-25 12:05:00 Jean-Claude 11:45: [id number] 00 Elimination urinary Eliminatio Resolve 2018-10-02 Laura incontinenc n d 09-25 12:05:00 Jean-Claude e 11:45: [id number] 00 Endo/Edgard anti-coagul Endo/Edgard Resolve 2018-10-02 Laura ation d 09-29 12:05:00 Jean-Claude therapy 09:45: [id number] 00 Safety can be left Safety Resolve 2018-10-02 Laura alone for d 09-29 12:05:00 Jean-Claude only short 09:45: [id number] periods 00 Endo/Edgard anti-coagul Endo/Edgard Resolve 2018-10-27 Laura ation d 10-04 11:30:00 Jean-Claude therapy 10:10: [id number] 00 Elimination urinary Eliminatio Resolve 2018-10-06 Laura incontinenc n d 10-04 09:10:00 Jean-Claude e 10:10: [id number] 00 Elimination constipatio Eliminatio Resolve 2018-10-06 Laura n n d 10-04 09:10:00 Jean-Claude 10:10: [id number] 00 Safety can be left Safety Resolve 2018-10-06 Laura alone for d 10-04 09:10:00 Jean-Claude only short 10:10: [id number] periods 00 Sensory impaired Sensory Resolve 2018-10-23 Krystyna verbal d 6 11:56:00 [place] communicati 15:00: [id number] on 00 Sensory impaired Sensory Resolve 2018-10-23 Krystyna hearing d 10-05 11:56:00 [place] 15:00: [id number] 00 Elimination urinary Eliminatio Resolve 2018-10-27 Laura incontinenc n d 10-09 11:30:00 Jean-Claude e 12:15: [id number] 00 Elimination bloody Eliminatio Resolve 2018-10-27 Laura urine n d 10-09 11:30:00 Jean-Claude 12:15: [id number] 00 Safety can be left Safety Resolve 2018-10-23 Laura alone for d 10-09 11:56:00 Jean-Claude only short 12:15: [id number] Elimination constipatio Eliminatio Resolve 2018-12-08 Laura n n d 10-16 14:00:00 Jean-Claude 12:35: [id number] 00 Cardio edema Cardiovasc Resolve 2018-10-27 Laura ular d 10-20 11:30:00 Jean-Claude 11:35: [id number] 00 Endo/Edgard knowledge/s Endo/Edgard Resolve 2018-10-27 Laura kill d 10-20 11:30:00 Jean-Claude deficit: pt 11:35: [id number] 00 Sensory impaired Sensory Unknown Jonatan verbal 7-15 Demarco, communicati 13:30: PT on [id number] Sensory impaired Sensory Unknown Jonatan hearing 7-15 Demarco, 13:30: PT 00 [id number] Safety can be left Safety Resolve 2018-10-27 Laura alone for d 7- 11:30:00 Jean-Claude only short 10:35: [id number] periods 00 Endo/Edgard glucose Endo/Edgard Resolve 2018-12-11 Cherrise tolerance d 10-30 09:30:00 Trixie problem 11:55: [id number] 00 Endo/Edgard insulin Endo/Edgard Resolve 2018-12-13 Cherrise admn d 10-30 11:10:00 [place] dependence 11:55: [id number] 00 Endo/Edgard glucose Endo/Edgard Resolve 2018-12-13 Cherrise testing d 10-30 11:10:00 [place] dependence 11:55: [id number] 00 Endo/Edgard knowledge/s Endo/Edgard Resolve 2018-12-08 Cherrise kill d 10-30 14:00:00 [place] deficit: pt 11:55: [id number] 00 Elimination urinary Eliminatio Resolve 2018-12-08 Cherrise urgency n d 10-30 14:00:00 Trixie 11:55: [id number] 00 Neuro depressive Neuro/Emot Resolve 2018-12-08 Cherrise feelings ion d 10-30 14:00:00 [place] present 11:55: [id number] 00 Neuro impaired Neuro/Emot Resolve 2018-12-08 Cherrise decision-ma ion d 10-30 14:00:00 [place] pj 11:55: [id number] 00 Safety fall risk Safety Resolve 2018-12-06 Cherrise factor d 10-30 13:05:00 [place] present 11:55: [id number] 00 Endo/Edgard anti-coagul Endo/Edgard Resolve 2018-12-13 Shi ation d 11-01 11:10:00 Sorin, therapy 12:30: [id number] 00 Respiratory Incentive Respirator Resolve 2018-11-29 Cherrise Spirometer y d 11-03 10:15:00 Trixie /Acapella 10:25: [id number] Device 00 treatments in home Elimination urinary Eliminatio Resolve 2018-12-08 Cherrise frequency n d 11-03 14:00:00 [place] 10:25: [id number] 00 Respiratory lung sounds Respirator Resolve 2018-11-29 Cherrise deficit y d 11-06 10:15:00 Trixie 12:05: [id number] 00 Neuro memory Neuro/Emot Resolve 2018-12-08 Cherrise deficit ion d 7-31 14:00:00 [place] needing 10:30: [id number] supervision 00 Pain frequent Pain Mgmt Resolve 2018-12-06 Shi pain d 11-10 13:05:00 Sorin, 11:00: [id number] 00 Integument pressure Integument Active Shi ulcer 11-10 Sorin, present 11:00: [id number] 00 Integument surgical Integument Active Shi wound 11-10 Sorin, present 11:00: [id number] 00 Integument skin Integument Active Shi integrity 11-10 Sorin, risk 11:00: [id number] 00 Elimination urinary Eliminatio Resolve 2018-12-08 Shi incontinenc n d 11-10 14:00:00 Sorin, e 11:00: [id number] 00 Activity self-care Activity Resolve 2018-11-29 Shi deficit d 11-10 10:15:00 Sorin, 11:00: [id number] 00 Activity ADL Activity Resolve 2018-12-08 Shi assistance d 11-10 14:00:00 Sorin, required 11:00: [id number] 00 Pain knowledge/s Pain Mgmt Resolve 2018-12-06 Krystyna kill d 11-16 13:05:00 [place] deficit: cg 15:15: [id number] 00 Respiratory knowledge/s Respirator Resolve 2018-11-29 Krystyna kill y d 11-16 10:15:00 [place] deficit: cg 15:15: [id number] 00 Integument knowledge/s Integument Active 2018- Krystyna kill 11-16 [place] deficit: cg 15:15: [id number] 00 Elimination knowledge/s Eliminatio Resolve 2018-12-08 Krystyna kill n d 11-16 14:00:00 [place] deficit: cg 15:15: [id number] 00 Safety knowledge/s Safety Resolve 2018-12-06 Krystyna kill d 11-16 13:05:00 [place] deficit: cg 15:15: [id number] 00 Cardio hypertensio Cardiovasc Resolve 2018-11-29 Lenny ruiz d 11-17 10:15:00 Trixie 10:45: [id number] 00 Safety can be left Safety Resolve 2018-12-08 Shi alone for d 11-22 14:00:00 nancy Rowell 11:00: [id number] periods 00 Sensory impaired Sensory Resolve 2018-12-08 Laura verbal d 11-24 14:00:00 Jean-Claude communicati 09:30: [id number] on Sensory impaired Sensory Resolve 2018-12-08 Laura hearing d 11-24 14:00:00 [place] 09:30: [id number] 00 Respiratory knowledge/s Respirator Resolve 2018-12-08 Laura kill y d 12-01 14:00:00 [place] deficit: cg 09:30: [id number] 00 Sensory impaired Sensory Unknown Krystyna verbal 12-08 [place] communicati 15:00: [id number] on Sensory impaired Sensory Unknown Krystyna hearing 12-08 [place] 15:00: [id number] 00 Respiratory knowledge/s Respirator Resolve 2018-12-13 Laura kill y d 12-11 11:10:00 [place] deficit: cg 09:30: [id number] 00 Endo/Edgard knowledge/s Endo/Edgard Resolve 2018-12-13 Laura kill d 12-11 11:10:00 [place] deficit: pt 09:30: [id number] 00 Elimination urinary Eliminatio Resolve 2018-12-15 Laura incontinenc n d 12-11 13:10:00 Jean-Claude e 09:30: [id number] 00 Safety can be left Safety Resolve 2018-12-15 Laura alone for d 12-11 13:10:00 Jean-Claude only short 09:30: [id number] 00 Endo/Edgard knowledge/s Endo/Edgard Resolve 2019-01-05 Laura kill d 12-15 11:00:00 [place] deficit: pt 13:10: [id number] 00 Endo/Edgard anti-coagul Endo/Edgard Resolve 2019-01-05 Laura ation d 12-15 11:00:00 Jean-Claude therapy 13:10: [id number] 00 Elimination urinary Eliminatio Resolve 2018-12-27 Laura incontinenc n d 12-18 09:20:00 Jean-Claude e 12:10: [id number] 00 Safety can be left Safety Resolve 2019-01-05 Laura alone for d 12-18 11:00:00 Jean-Claude only short 12:10: [id number] periods 00 Elimination constipatio Eliminatio Resolve 2019-01-05 Laura n n d 12-20 11:00:00 Jean-Claude 12:15: [id number] 00 Pain frequent Pain Mgmt Resolve 2019-01-15 Laura pain d 12-27 12:30:00 Jean-Claude 09:20: [id number] 00 Respiratory dyspnea Respirator Resolve 2019-01-05 Laura present y d 12-27 11:00:00 Jean-Claude 09:20: [id number] 00 Endo/Edgard diabetic Endo/Edgard Resolve 2019-01-05 Laura foot care d 12-27 11:00:00 Jean-Claude 09:20: [id number] 00 Elimination diarrhea Eliminatio Resolve 2019-01-05 Laura n d 12-27 11:00:00 Jean-Claude 09:20: [id number] 00 Neuro confusion Neuro/Emot Resolve 2019-01-05 Laura present ion d 12-27 11:00:00 Jean-Claude 09:20: [id number] 00 Neuro anxiety Neuro/Emot Resolve 2019-01-05 Laura present ion d 12-27 11:00:00 Jean-Claude 09:20: [id number] 00 Activity ADL Activity Resolve 2019-01-05 Laura assistance d 12-27 11:00:00 Jean-Claude required 09:20: [id number] 00 Activity self-care Activity Resolve 2019-01-05 Laura deficit d 12-27 11:00:00 Jean-Claude 09:20: [id number] 00 Safety fall risk Safety Resolve 2019-01-05 Laura factor d 9-18 11:00:00 [place] present 09:20: [id number] 00 Medication potential Meds Resolve 2019-01-05 Laura clinically d 9-18 11:00:00 [place] significant 09:20: [id number] medication 00 issue Elimination urinary Eliminatio Resolve 2019-01-05 Laura incontinenc n d 920 11:00:00 Franklin e 11:20: [id number] 00 Endo/Edgard knowledge/s Endo/Edgard Resolve 2019-01-10 Laura kill d 01-08 10:00:00 Jean-Claude deficit: pt 11:30: [id number] 00 Endo/Edgard anti-coagul Endo/Edgard Resolve 2019-01-10 Laura ation d 01-08 10:00:00 Jean-Claude therapy 11:30: [id number] 00 Elimination urinary Eliminatio Resolve 2019-01-15 Laura incontinenc n d 01-08 12:30:00 Jean-Claude e 11:30: [id number] 00 Safety can be left Safety Resolve 2019-02-16 Laura alone for d 01-08 12:00:00 Jean-Claude only short 11:30: [id number] periods 00 Respiratory dyspnea Respirator Resolve 2018-042019-01-26 Laura present y d 0-02 10:00:00 Jean-Claude 10:00: [id number] 00 Activity ADL Activity Resolve 2018-042019-01-12 Laura assistance d 0-02 11:30:00 [place] required 10:00: [id number] 00 Activity self-care Activity Resolve 2018-042019-01-12 Laura deficit d 0-02 11:30:00 Jean-Claude 10:00: [id number] 00 Safety fall risk Safety Resolve 2018-042019-01-12 Laura factor d 0-02 11:30:00 Jean-Claude present 10:00: [id number] 00 Medication injectable Meds Resolve 2018-042019-01-17 Laura med d 0-02 09:45:00 [place] assistance 10:00: [id number] required 00 Endo/Edgard knowledge/s Endo/Edgard Resolve 2018-042019-01-15 Laura kill d 0-04 12:30:00 Jean-Claude deficit: pt 11:30: [id number] 00 Endo/Edgard anti-coagul Endo/Edgard Resolve 2018-042019-01-15 Laura ation d 0-04 12:30:00 [place] therapy 11:30: [id number] 00 Elimination constipatio Eliminatio Resolve 2018-042019-01-15 Laura n n d 0-04 12:30:00 [place] 11:30: [id number] 00 Sensory impaired Sensory Resolve 2018-042019-01-15 Krystyna verbal d 0-04 12:30:00 [place] communicati 15:30: [id number] on 00 Sensory impaired Sensory Resolve 2018-042019-01-15 Krystyna hearing d 0-04 12:30:00 [place] 15:30: [id number] 00 Infection s/s of Infection Resolve 2018-042019-03-09 Laura infection d 0-07 11:00:00 [place] 12:30: [id number] 00 Sensory impaired Sensory Resolve 2018-042019-01-22 Jonatan verbal d 0-08 11:00:00 ambrosio Pal 13:00: PT on 301684-3 Sensory impaired Sensory Resolve 2018-042019-01-22 Jonatan hearing d 0-08 11:00:00 Demarco, 13:00: PT 00 [id number] Endo/Edgard knowledge/s Endo/Edgard Resolve 2018-042019-02-07 Laura kill d 0-09 11:20:00 [place] deficit: pt 09:45: [id number] 00 Endo/Edgard anti-coagul Endo/Edgard Resolve 2018-042019-02-07 Laura ation d 0-09 11:20:00 Jean-Claude therapy 09:45: [id number] 00 Elimination urinary Eliminatio Resolve 2018-042019-02-02 Laura incontinenc n d 0-09 11:30:00 Jean-Claude e 09:45: [id number] 00 Elimination constipatio Eliminatio Resolve 2018-042019-02-02 Laura n n d 0-16 11:30:00 [place] 10:00: [id number] 00 Sensory impaired Sensory Resolve 2018-042019-01-31 Jonatan verbal d 0-17 11:10:00 ambrosio Pal 15:00: PT on [id number] Sensory impaired Sensory Resolve 2019-1 2019-01-31 Jonatan hearing d 0-17 11:10:00 Demarco, 15:00: PT 00 [id number] Pain frequent Pain Mgmt Resolve 2018-042019-02-16 Jonatan pain d 0-23 12:00:00 Demarco, 13:00: PT 00 [id number] Sensory impaired Sensory Unknown 2018-04 Jonatan verbal 0-23 Demarco, communicati 13:00: PT on 00 365491-3 Sensory impaired Sensory Unknown 2018-04 Jonatan hearing 0-23 Demarco, 13:00: PT 00 [id number] Respiratory dyspnea Respirator Resolve 2018-042019-02-07 Laura present y d 0-25 11:20:00 [place] 11:30: [id number] 00 Elimination urinary Eliminatio Resolve 2018-042019-02-07 Laura incontinenc n d 0-28 11:20:00 [place] e 12:40: [id number] 00 Endo/Edgard knowledge/s Endo/Edgard Resolve 2018-042019-02-19 Laura kill d 04-11 12:40:00 Jean-Claude deficit: pt 12:30: [id number] 00 Endo/Edgard anti-coagul Endo/Edgard Resolve 2018-042019-02-19 Laura ation d 04-11 12:40:00 [place] therapy 12:30: [id number] 00 Elimination urinary Eliminatio Resolve 2018-042019-02-16 Laura incontinenc n d 04-11 12:00:00 Jean-Claude e 12:30: [id number] 00 Medication potential Meds Resolve 2018-042019-02-24 Laura clinically d 1 09:45:00 Jean-Claude significant 12:20: [id number] medication 00 issue Elimination constipatio Eliminatio Resolve 2018-042019-02-16 Laura n n d 04-16 12:00:00 [place] 11:20: [id number] 00 Elimination urinary Eliminatio Resolve 2018-042019-02-24 Laura incontinenc n d 04-21 09:45:00 [place] e 12:40: [id number] 00 Safety can be left Safety Resolve 2018-042019-02-24 Laura alone for d 04-21 09:45:00 Jean-Claude only short 12:40: [id number] periods 00 Endo/Edgard knowledge/s Endo/Edgard Resolve 2018-042019-02-24 Laura kill d 1-13 09:45:00 [place] deficit: pt 12:05: [id number] 00 Endo/Edgard anti-coagul Endo/Edgard Resolve 2018-042019-02-24 Laura ation d 1- 09:45:00 Jean-Claude therapy 12:05: [id number] 00 Sensory impaired Sensory Resolve 2018-042019-02-26 Laura verbal d 04-26 13:20:00 Jean-Claude communicati 09:45: [id number] on 00 Sensory impaired Sensory Resolve 2018-042019-02-26 Laura hearing d 16 13:20:00 Jean-Claude 09:45: [id number] 00 Endo/Edgard knowledge/s Endo/Edgard Resolve 2018-042019-02-28 Laura kill d 04-28 11:15:00 Jean-Claude deficit: pt 13:20: [id number] 00 Endo/Edgard anti-coagul Endo/Edgard Resolve 2018-042019-02-28 Laura ation d 04-28 11:15:00 [place] therapy 13:20: [id number] 00 Elimination urinary Eliminatio Resolve 2018-042019-03-09 Laura incontinenc n d 04-28 11:00:00 Jean-Claude e 13:20: [id number] 00 Safety can be left Safety Resolve 2018-042019-03-05 Laura alone for d 04-28 12:45:00 [place] only short 13:20: [id number] periods 00 Endo/Edgard knowledge/s Endo/Edgard Resolve 2018-042019-03-09 Laura kill d 05-05 11:00:00 [place] deficit: pt 12:45: [id number] 00 Endo/Edgard anti-coagul Endo/Edgard Resolve 2018-042019-03-09 Laura ation d 05-05 11:00:00 [place] therapy 12:45: [id number] 00 Safety can be left Safety Resolve 2018-042019-03-09 Laura alone for d 05-07 11:00:00 Jean-Claude only short 11:25: [id number] periods 00 Sensory impaired Sensory Resolve 2018-042019-03-12 Krystyna verbal d 05-09 11:15:00 Kendrickunstein communicati 12:00: [id number] on 00 Sensory impaired Sensory Resolve 2018-042019-03-12 Krystyna hearing d 05-09 11:15:00 [facility] 12:00: [id number] 00 Social financial LILLIAN: Active 2018-04 Krystyna Services resource Social 05-09 [facility] deficit Services 12:00: [id number] 00 Respiratory dyspnea Respirator Resolve 2018-042019-03-14 Laura present y d 05-13 10:30:00 Jean-Claude 11:15: [id number] 00 Endo/Edgard knowledge/s Endo/Edgard Resolve 2018-042019-04-02 Laura kill d 05-13 11:45:00 Jean-Claude deficit: pt 11:15: [id number] 00 Endo/Edgard anti-coagul Endo/Edgard Resolve 2018-042019-04-02 Laura ation d 05-13 11:45:00 [place] therapy 11:15: [id number] 00 Elimination urinary Eliminatio Resolve 2018-042019-03-14 Laura incontinenc n d 05-13 10:30:00 Jean-Claude e 11:15: [id number] 00 Activity ADL Activity Resolve 2018-042019-03-14 Laura assistance d 05-13 10:30:00 [place] required 11:15: [id number] 00 Activity self-care Activity Resolve 2018-042019-03-14 Laura deficit d 05-13 10:30:00 Jean-Claude 11:15: [id number] 00 Safety fall risk Safety Resolve 2018-042019-03-14 Laura factor d 05-13 10:30:00 Jean-Claude present 11:15: [id number] 00 Safety can be left Safety Resolve 2018-042019-03-14 Laura alone for d 05-13 10:30:00 Jean-Claude only short 11:15: [id number] periods 00 Medication injectable Meds Resolve 2018-042019-03-12 Laura med d 05-13 11:15:00 [place] assistance 11:15: [id number] required 00 Safety can be left Safety Resolve 2018-042019-03-19 Laura alone for d 05-17 11:40:00 Jean-Claude only short 09:15: [id number] periods 00 Elimination urinary Eliminatio Resolve 2018-042019-03-30 Laura incontinenc n d 05-20 10:45:00 [place] e 11:40: [id number] 00 Safety can be left Safety Resolve 2018-042019-03-26 Laura alone for d 2-11 11:00:00 [place] only short 11:30: [id number] 00 Safety can be left Safety Resolve 2018-042019-03-30 Laura alone for d 2-18 10:45:00 Jean-Claude only short 10:30: [id number] 00 Elimination urinary Eliminatio Active 2018-04 Laura incontinenc n 2- Franklin e 11:45: [id number] 00 Safety can be left Safety Resolve 2018-042019-04-06 Laura alone for d 2- 10:50:00 [place] only short 11:45: [id number] 00 Endo/Edgard knowledge/s Endo/Edgard Resolve 2018-042019-04-06 Laura kill d 06-05 10:50:00 [place] deficit: pt 14:48: [id number] Endo/Edgard anti-coagul Endo/Edgard Resolve 2018-042019-04-06 Laura ation d 06-05 10:50:00 Jean-Claude therapy 14:48: [id number] Allergies, Adverse Reactions, Alerts Allergy Name Allergy Status Severity Reaction(s) Onset Inactive Treating Comments Type Date Date Clinician bananas Unknown Active Unknown Reaction 2017-04 Roselyn Unknown 0-10 (Radha) Nithin [id number] keflex Unknown Active Unknown Reaction 2017-04 Rsoelyn Unknown 0-10 (Radha) Nithin [id number] nuts Unknown Active Unknown Reaction 2017-04 Roselyn Unknown 0-10 (Radha) Nithin [id number] Cipro Medication Active Unknown Reaction 2017-04 Sonia White Name ID Unknown 0-10 metronidazol Base Active Unknown Nausea and 2017-04 Roselyn e Ingredient vomiting -20 Guidelli [id number] Medications Ordered Filled Start Stop Current Ordering [...] inhalation Lantus Lantus No Shallish 38 Unknown Aislinnostvincenzo Michelle MD,Jamie units U-100 U-100 Insulin 100 Insulin 100 unit/mL (3 unit/mL (3 mL) mL) subcutaneou subcutaneou s pen s pen acetaminoph acetaminoph No Shallish 2 tabs Unknown en 325 mg en 325 mg MD,Jamie tablet tablet Rapaflo 8 Rapaflo 8 2017-04 2019- No Shallish Unknown Unknown mg capsule mg capsule 0-10 06-28 MD,Jamie Klor-Con Klor-Con No Shallish 1 Unknown M20 mEq M20 mEq ,Jamie tablet tablet,exte tablet,exte nded nded release release gabapentin gabapentin No Shallish 1 Unknown 300 mg 300 mg ,Jamie capsule capsule capsule furosemide furosemide 2017-04 No Shallish Unknown Unknown 20 mg 20 mg 0-10 ,Jamie tablet tablet finasteride finasteride No Shallish 1 Unknown 5 mg tablet 5 mg tablet ,Jamie tablet ferrous ferrous No Shallish 1 Unknown sulfate 325 sulfate 325 ,Jamie tablet mg (65 mg mg (65 mg iron) iron) tablet tablet fenofibrate fenofibrate No Shallish 1 Unknown nanocrystal nanocrystal ,Jamie tablet lized 145 lized 145 mg tablet mg tablet ascorbic ascorbic No Shallish 1 tab Unknown acid acid Jamie DAVID (vitamin C) (vitamin C) 500 mg 500 mg tablet tablet amiodarone amiodarone No Shallish 1 tab Unknown 200 mg 200 mg ,Jamie tablet tablet cyclobenzap cyclobenzap No Shallish 1 Unknown rine 10 mg rine 10 mg MDJamie tablet tablet tablet Refresh Refresh No Shallish [...] No Shallish 1 cap Unknown gram gram ,Jamie capsule capsule oxyCODONE 5 oxyCODONE 5 No Garcia 2 tabs Unknown mg tablet mg tablet DO,Ponce (10 mg) morphine ER morphine ER No Garcia 1 tab Unknown 15 mg 15 mg DO,Ponce tablet,exte tablet,exte nded nded release release loperamide loperamide No [place] 1-2 Unknown 2 mg tablet 2 mg [...] mg 0-10 MD,Jamie tablet tablet rivaroxaban rivaroxaban 2018-1 2019- No Shallish Unknown Unknown 20 mg 20 mg 0- 04- MD,Jamie tablet tablet MS Contin MS Contin 2017-04 No Shallish Unknown Unknown 30 mg 30 mg 0- MD,Jamie tablet,exte tablet,exte nded nded release release Levemir Levemir 2017-04- No Shallish Unknown Unknown FlexTouch FlexTouch 0-01 20- MD,Jamie U-100 U-100 Insulin 100 Insulin 100 [...] Shallish Unknown Unknown Optive 1 Optive 1 - MD,Jamie %-0.9 % eye %-0.9 % eye [...] 2018- No Shallish Unknown Unknown FlexTouch FlexTouch 06-06- MD,Jamie U-100 U-100 Insulin 100 Insulin 100 unit/mL (3 unit/mL (3 mL) mL) subcutaneou subcutaneou s pen s pen testosteron testosteron 2017-04 No [place] Unknown Unknown e cypionate e cypionate 06-06 Latanya DAVID 200 mg/mL 200 mg/mL intramuscul intramuscul ar kit ar kit mometasone mometasone 2017-04 No [place] Unknown Unknown 0.1 % 0.1 % 06-06 Latanya DAVID topical topical cream cream finasteride finasteride 2017-04 No [place] Unknown Unknown 5 mg tablet 5 mg tablet 06-06 Latanya DAVID Levemir Levemir 2017-04- [place] Unknown Unknown FlexTouch FlexTouch 06-06 Latanya DAVID U-100 U-100 Insulin 100 Insulin 100 unit/mL (3 unit/mL (3 mL) mL) subcutaneou subcutaneou s pen s pen Levemir Levemir 2018- Shallish Unknown Unknown FlexTouch FlexTouch 05-01 Jamie DAVID U-100 U-100 Insulin 100 Insulin 100 unit/mL (3 unit/mL (3 mL) mL) subcutaneou subcutaneou s pen s pen warfarin 5 warfarin 5 2018- Shallish Unknown Unknown mg tablet mg tablet 08-07 MD,Jamie warfarin 5 warfarin 5 2018- Shallish Unknown Unknown mg tablet mg tablet 08-09 MD,Jamie warfarin 5 warfarin 5 2018- No Shallish Unknown Unknown mg tablet mg tablet 08-13 MD,Jamie amoxicillin amoxicillin Shallish Unknown Unknown 500 mg 500 mg 08-11 MD,Jamie tablet tablet doxycycline doxycycline 2018- Shallish Unknown Unknown hyclate 100 hyclate 100 08-13 MD,Jamie mg capsule mg capsule warfarin 5 warfarin 5 2018- No Shallish Unknown Unknown mg tablet mg tablet 08-14 MD,Jamie warfarin 5 warfarin 5 2018- Shallish Unknown Unknown mg tablet mg tablet 08-16 MD,Jamie warfarin 5 warfarin 5 2018- No Shallish Unknown Unknown mg tablet mg tablet 08-18 MD,Jamie warfarin 5 warfarin 5 2018- No Shallish Unknown Unknown mg tablet mg tablet 08-21 MD,Jamie warfarin 5 warfarin 5 2019-0 2019- No Shallish Unknown Unknown mg tablet mg tablet 08-23- MD,Jamie Coumadin Coumadin 2018- No Shallish Unknown Unknown 2.5 mg 2.5 mg 08-25- MD,Jamie tablet tablet Coumadin Coumadin 2018- No Shallish Unknown Unknown 2.5 mg 2.5 mg 08-28- MD,Jamie tablet tablet Coumadin Coumadin 2018- No Shallish Unknown Unknown 2.5 mg 2.5 mg 09-07 MD,Jamie tablet tablet Coumadin Coumadin 2018- No Shallish Unknown Unknown 2.5 mg 2.5 mg 09-07 MD,Jamie tablet tablet Coumadin Coumadin 2018- No Shallish Unknown Unknown 2.5 mg 2.5 mg 09-11- MD,Jamie tablet tablet Coumadin Coumadin 2018- No Shallish Unknown Unknown 2.5 mg 2.5 mg 09-15- MD,Jamie tablet tablet Eliquis 5 Eliquis 5 No Shallish Unknown Unknown mg tablet mg tablet 09-21 MD,Jamie Levemir Levemir No Shallish Unknown Unknown FlexTouch FlexTouch 6- MD,Jamie U-100 U-100 Insulin 100 Insulin 100 unit/mL (3 unit/mL (3 mL) mL) subcutaneou subcutaneou s pen s pen Prolia 60 Prolia 60 No Shallish Unknown Unknown mg/mL mg/mL 11-17 MD,Jamie subcutaneou subcutaneou s syringe s syringe [...] Observation Time Observation Value Comments SYSTOLIC mm[Hg] 2019-04-06 18:09:34 136 mm[Hg] mm[Hg] Method: Sit SYSTOLIC mm[Hg] 2018-01-23 18:02:16 122 mm[Hg] mm[Hg] Method: Stand DIASTOLIC mm[Hg] 2019-04-06 18:09:34 78 mm[Hg] mm[Hg] Method: Sit DIASTOLIC mm[Hg] 2018-01-23 18:02:16 60 mm[Hg] mm[Hg] Method: Stand PULSE 2019-04-06 18:09:34 76 /min /min RESP RATE 2019-04-06 18:09:34 16 /min /min TEMP 2019-04-06 18:09:34 97.9 [degF] Procedures This patient has no known procedures. Results This patient has no known results.
--- OUTSIDE RECORDS SUMMARY | 2019-04-11 14:36 | XMS REPORT ---
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 1- Jean-Claude ulcer of ulcer of [id number] other part other part of right of right foot with foot with fat layer fat layer exposed exposed Non-pressur Non-pressur Diagnosis Active Laura e chronic e chronic 1- Jean-Claude ulcer of ulcer of [id number] other part other part of left of left foot with foot with fat layer fat layer exposed exposed Type 2 Type 2 Diagnosis Active 2018-04 Laura diabetes diabetes 0-10 [place] mellitus mellitus [id number] with other with other skin ulcer skin ulcer Non-pressur Non-pressur Diagnosis Active 2018-04 Laura e chronic e chronic 0-10 [place] ulcer of ulcer of [id number] other part other part of right of right lower leg lower leg with fat with fat layer layer exposed exposed 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- Jean[place]Cla[place] mellitus mellitus [id number] with with diabetic diabetic peripheral peripheral angiopathy angiopathy without without gangrene gangrene 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 [id number] (chronic) (chronic) (peripheral (peripheral ) ) 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-Claude 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 Heart Heart Diagnosis Active Laura failure, failure, Jean[place]Claude unspecified unspecified 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 angina angina pectoris pectoris Chronic 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 pulmonary [id number] disease, disease, unspecified unspecified Paroxysmal Paroxysmal Diagnosis Active Laura atrial atrial [place] fibrillatio fibrillatio [id number] n n Anxiety Anxiety Diagnosis Active Laura disorder, disorder, [place] unspecified unspecified [id number] Unspecified Unspecified Diagnosis Active Laura osteoarthri osteoarthri [place] tis, tis, [id number] unspecified unspecified site site Irritable Irritable Diagnosis Active Laura bowel 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 [id number] without without diarrhea diarrhea Benign Benign Diagnosis Active Laura prostatic prostatic [place]ude hyperplasia hyperplasia [id number] without without lower lower urinary urinary tract tract symptoms symptoms Sleep Sleep Diagnosis Active Laura apnea, apnea, [place] unspecified unspecified [id number] Tremor, Tremor, Diagnosis Active Laura unspecified unspecified [place] [id number] Hypothyroid Hypothyroid Diagnosis Active Laura ism, ism, [place] unspecified unspecified [id number] Hyperlipide Hyperlipide Diagnosis Active Laura clemente, clemente, [place]ude unspecified unspecified 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) (current) [place] use of use of [id number] insulin insulin ferry terminal supervisor longterm Diagnosis Active Laura (current) (current) [place] use of use of [id number] anticoagula anticoagula nts nts 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 Laura (current) (current) [place]Claude use of use of [id number] opiate opiate analgesic analgesic Presence of Presence of Diagnosis Active Laura coronary coronary [place]ude angioplasty angioplasty [id number] implant and implant and graft graft Personal Personal Diagnosis Active Laura history of history of Jean[place]Claude 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 Pain frequent Pain Mgmt Resolve 2017-042018-05-08 Roselyn pain d 0-10 08:50:00 (Radha) 11:15: Weller 00 [id number] Cardio edema Cardiovasc Resolve 2017-042018-02-20 Roselyn ular d 0-10 09:50:00 (Radha) 11:15: Weller [id number] Respiratory dyspnea Respirator Resolve 2017-042018-02-15 Roselyn present y d 0-10 10:20:00 (Radha) 11:15: Weller [id number] Endo/Edgard glucose Endo/Edgard Resolve 2017-042018-03-20 Roselyn testing d 0-10 12:30:00 (Radha) dependence 11:15: Weller 00 [id number] Endo/Edgard knowledge/s Endo/Edgard Resolve 2017-042018-03-06 Roselyn kill d 0-10 09:30:00 (Radha) deficit: pt 11:15: Weller 00 [id number] Endo/Edgard anti-coagul Endo/Edgard Resolve 2017-042018-03-20 Roselyn ation d 0-10 12:30:00 (Radha) therapy 11:15: Weller 00 [id number] Endo/Edgard diabetic Endo/Edgard Resolve 2017-042018-03-06 Roselyn foot care d 0-10 09:30:00 (Radha) 11:15: Weller [id number] Sensory impaired Sensory Resolve 2017-042018-03-22 Roselyn hearing d 0-10 09:55:00 (Radha) 11:15: Weller [id number] Integument pressure Integument Resolve 2017-042018-08-21 Roselyn ulcer d 0-10 12:45:00 (Radha) present 11:15: Weller [id number] Integument skin Integument Resolve 2017-042018-03-03 Roselyn integrity d 0-10 09:19:00 (Radha) risk 11:15: Weller [id number] Integument surgical Integument Resolve 2017-042018-03-03 Quality wound d 0-10 09:19:00 Realtime7 present 11:15: 00 Integument other wound Integument Resolve 2017-042018-03-03 Quality present d 0-10 09:19:00 Realtime7 11:15: 00 Elimination urinary Eliminatio Resolve 2017-042018-03-20 Roselyn incontinenc n d 0-10 12:30:00 (Radha) e 11:15: Weller [id number] Neuro confusion Neuro/Emot Resolve 2017-042018-03-22 Roselyn present ion d 0-10 09:55:00 (Radha) 11:15: Weller [id number] Neuro anxiety Neuro/Emot Resolve 2017-042018-03-22 Roselyn present ion d 0-10 09:55:00 (Radha) 11:15: Weller [id number] Neuro impaired Neuro/Emot Resolve 2017-042018-03-22 Roselyn decision-ma ion d 0-10 09:55:00 (Radha) pj 11:15: Weller [id number] Activity ADL Activity Resolve 2017-042018-03-22 Roselyn assistance d 0-10 09:55:00 (Radha) required 11:15: Weller [id number] Safety structural Safety Resolve 2017-042018-03-22 Roselyn barriers d 0-10 09:55:00 (Radha) present 11:15: Weller 00 [id number] Safety fall risk Safety Resolve 2017-042018-03-22 Roselyn factor d 0-10 09:55:00 (Radha) present 11:15: Weller 00 [id number] Safety risk for Safety Resolve 2017-042018-03-22 Roselyn hospitaliza d 0-10 09:55:00 (Radha) tion 11:15: Weller [id number] Safety can be left Safety Resolve 2017-042018-03-22 Roselyn alone for d 0-10 09:55:00 (Radha) only short 11:15: Weller periods 00 [id number] Medication oral med Meds Resolve 2017-042018-02-06 Roselyn assistance d 0-10 09:15:00 (Radha) required 11:15: Weller [id number] Medication injectable Meds Resolve 2017-042018-02-06 Roselyn med d 0-10 09:15:00 (Radha) assistance 11:15: Weller required 00 [id number] Medication knowledge/s Meds Resolve 2017-042018-02-15 Roselyn kill d 0-10 10:20:00 (Radha) deficit: pt 11:15: Weller [id number] Medication potential Meds Resolve 2017-042018-02-15 Roselyn clinically d 0-10 10:20:00 (Radha) significant 11:15: Weller medication 00 [id number] issue Musculoskel transfer Musculoske Resolve 2017-042018-03-20 Roselyn etal assistance letal d 0-10 12:30:00 (Radha) required 11:15: Weller 00 [id number] Musculoskel requires Musculoske Resolve 2017-042018-03-20 Roselyn etal human letal d 0-10 12:30:00 (Radha) assist to 11:15: Weller leave home 00 [id number] Safety knowledge/s Safety Resolve 2017-042018-03-22 Laura kill d 0-12 09:55:00 Jean-Claude deficit: pt 10:00: [id number] 00 Respiratory knowledge/s Respirator Resolve 2017-042018-02-06 Laura kill y d 0-15 09:15:00 Jean-Claude deficit: cg 10:00: [id number] 00 Respiratory lung sounds Respirator Resolve 2017-042018-02-06 Laura deficit y d 0-15 09:15:00 [place] 10:00: [id number] 00 Sensory impaired Sensory Resolve 2017-042018-03-22 Quality verbal d 0-17 09:55:00 Realtime7 communicati 18:36: on 42 Musculoskel knowledge/s Musculoske Resolve 2017-042018-03-03 Laura etal kill letal d 0-24 09:19:00 Jean-Claude deficit: cg 09:45: [id number] 00 Nutrition knowledge/s Nutrition Resolve 2017-042018-03-03 Laura kill d 0-26 09:19:00 Jean-Claude deficit: pt 09:15: [id number] 00 Nutrition nutritional Nutrition Resolve 2017-042018-03-03 Laura restriction d 0-26 09:19:00 Jean-Claude s 09:15: [id number] 00 Elimination catheter Eliminatio Resolve 2017-042018-03-20 Laura present n d 0-26 12:30:00 Jean-Claude 09:15: [id number] 00 Elimination constipatio Eliminatio Resolve 2017-042018-03-20 Laura n n d 0-26 12:30:00 Jean-Claude 09:15: [id number] 00 Infection s/s of Infection Resolve 2017-042018-03-22 Laura infection d 0-31 09:55:00 Jean-Claude 09:30: [id number] 00 Endo/Edgard insulin Endo/Edgard Resolve 2017-042018-03-20 Laura admn d 04-22 12:30:00 [place] dependence 09:50: [id number] 00 Respiratory dyspnea Respirator Resolve 2017-042018-03-08 Laura present y d 04-24 09:20:00 Jean-Claude 10:07: [id number] 00 Safety cannot be Safety Resolve 2017-042018-03-22 Laura left alone d 04-24 09:55:00 Jean-Claude 10:07: [id number] 00 Cardio edema Cardiovasc Resolve 2017-042018-03-03 Laura ular d 04-26 09:19:00 Jean-Claude 09:51: [id number] 00 Respiratory Incentive Respirator Resolve 2017-042018-03-03 Laura Spirometer y d 04-26 09:19:00 [place] /Acapella 09:51: [id number] Device 00 treatments in home Endo/Edgard knowledge/s Endo/Edgard Resolve 2017-042018-03-20 Laura kill d 05-08 12:30:00 Jean-Claude deficit: pt 09:20: [id number] 00 Nutrition knowledge/s Nutrition Resolve 2017-042018-04-19 Laura kill d 05-08 09:45:00 [place] deficit: pt 09:20: [id number] 00 Nutrition nutritional Nutrition Resolve 2017-042018-04-19 Laura restriction d 05-08 09:45:00 Jean-Claude roe 09:20: [id number] 00 Endo/Edgard diabetic Endo/Edgard Resolve 2017-042018-03-20 Laura foot care d 05-14 12:30:00 Jean-Claude 09:20: [id number] 00 Pain frequent Pain Mgmt Unknown 2017-04 Laura pain 05-18 Jean-Claude 12:45: [id number] 00 Respiratory dyspnea Respirator Resolve 2017-042018-03-20 Alura present y d 05-18 12:30:00 Jean-Claude 12:45: [id number] 00 Integument pressure Integument Unknown 2017-04 Laura ulcer 05-18 [place] present 12:45: [id number] 00 Integument surgical Integument Resolve 2017-042018-03-24 Laura wound d 05-18 11:23:00 Jean-Claude present 12:45: [id number] 00 Endo/Edgard diabetic Endo/Edgard Resolve 2017-042018-03-24 Laura foot care d 05-23 11:23:00 Jean-Claude 09:55: [id number] 00 Elimination catheter Eliminatio Resolve 2017-042018-04-19 Laura present n d 05-23 09:45:00 Jean-Claude 09:55: [id number] 00 Safety risk for Safety Resolve 2017-042018-04-19 Laura hospitaliza d 05-25 09:45:00 Jean-Claude tion 11:23: [id number] 00 Safety can be left Safety Resolve 2017-042018-04-19 Laura alone for d 05-25 09:45:00 Jean-Claude only short 11:23: [id number] periods 00 Musculoskel knowledge/s Musculoske Resolve 2017-042018-03-29 Laura etal kill letal d 05-28 09:30:00 Jean-Claude deficit: cg 10:20: [id number] 00 Musculoskel requires Musculoske Resolve 2017-042018-04-12 Laura etal human letal d 05-28 09:45:00 Jean-Claude assist to 10:20: [id number] leave home 00 Endo/Edgard diabetic Endo/Edgard Resolve 2017-042018-04-19 Laura foot care d 05-30 09:45:00 Jean[place]Claude 09:30: [id number] 00 Elimination constipatio Eliminatio Resolve 2017-042018-04-12 Laura n n d 05-30 09:45:00 Jean-Claude 09:30: [id number] 00 Pain frequent Pain Mgmt Unknown 2017-04 Laura pain 06-06 Jean-Claude 09:45: [id number] 00 Endo/Edgard insulin Endo/Edgard Resolve 2017-042018-04-19 Laura admn d 06-06 09:45:00 Jean-Claude dependence 09:45: [id number] 00 Endo/Edgard anti-coagul Endo/Edgard Resolve 2017-042018-04-19 Laura ation d 06-06 09:45:00 Jean-Claude therapy 09:45: [id number] 00 Integument surgical Integument Resolve 2017-042018-04-05 Laura wound d 06-06 09:45:00 Jean-Claude present 09:45: [id number] 00 Integument skin Integument Resolve 2017-042018-04-05 Laura integrity d 06-06 09:45:00 Jean-Claude risk 09:45: [id number] 00 Integument pressure Integument Unknown 2017-04 Luara ulcer 06-06 [place] present 09:45: [id number] 00 Elimination UTI within Eliminatio Resolve 2017-042018-04-12 Laura past 14 n d 06-06 09:45:00 Jean-Claude days 09:45: [id number] 00 Activity ADL Activity Resolve 2017-042018-09-15 Laura assistance d 2- 10:35:00 [place] required 09:45: [id number] 00 Safety fall risk Safety Resolve 2017-042018-04-19 Laura factor d 2 09:45:00 Jean-Claude present 09:45: [id number] 00 Medication potential Meds Resolve 2017-042018-04-19 Laura clinically d 2 09:45:00 [place] significant 09:45: [id number] medication 00 issue Medication oral med Meds Resolve 2017-042018-04-05 Shari assistance d 06-06 09:45:00 Regeczi required 09:45: [id number] 00 Medication injectable Meds Resolve 2017-042018-08-09 Shari med d 06-06 09:20:00 Regeczi assistance 09:45: [id number] required 00 Musculoskel transfer Musculoske Resolve 2017-042018-04-12 Shari etal assistance letal d 06-06 09:45:00 Regeczi required 09:45: [id number] 00 Medication oral med Meds Resolve 2017-042018-04-19 Laura assistance d 2 09:45:00 [place] required 10:00: [id number] 00 Medication injectable Meds Unknown 2017-04 Laura med 06-08 Jean-Claude assistance 10:00: [id number] required 00 Sensory impaired Sensory Resolve 2017-042018-04-19 Nima verbal d 2- 09:45:00 Graves communicati 15:20: [id number] on 00 Sensory impaired Sensory Resolve 2017-042018-04-19 Nima hearing d 2 09:45:00 Graves 15:20: [id number] 00 Medication injectable Meds Unknown 2017-04 Nhung med - Pérez assistance 14:56: [id number] required 00 Medication injectable Meds Unknown Nima med 04-13 Graves assistance 13:50: [id number] required 00 Elimination constipatio Eliminatio Resolve 2018-04-19 Laura jarvis n d 04-14 09:45:00 Jean-Claude 09:28: [id number] 00 Medication injectable Meds Unknown Laura med 04-17 Jean-Claude assistance 10:00: [id number] required 00 Medication injectable Meds Resolve 2018-04-19 Laura med d -09 09:45:00 [place] assistance 09:45: [id number] required 00 Endo/Edgard anti-coagul Endo/Edgard Resolve 2018-04-26 Laura ation d -11 10:15:00 Jean-Claude therapy 09:45: [id number] 00 Nutrition knowledge/s Nutrition Resolve 2018-04-26 Laura kill d 04-21 10:15:00 Jean-Claude deficit: pt 09:45: [id number] 00 Nutrition nutritional Nutrition Resolve 2018-04-26 Laura restriction d 04-21 10:15:00 Jean-Claude s 09:45: [id number] 00 Elimination catheter Eliminatio Resolve 2018-04-26 Laura present n d 04-21 10:15:00 Jean-Claude 09:45: [id number] 00 Elimination constipatio Eliminatio Resolve 2018-04-26 Laura n n d 04-21 10:15:00 Jean-Claude 09:45: [id number] 00 Safety risk for Safety Resolve 2018-04-26 Laura hospitaliza d 04-21 10:15:00 Jean-Claude tion 09:45: [id number] 00 Safety can be left Safety Resolve 2018-04-26 Laura alone for d 04-21 10:15:00 Jean-Claude only short 09:45: [id number] periods 00 Sensory impaired Sensory Resolve 2018-04-26 Nima verbal d 1-11 10:15:00 Graves communicati 14:30: [id number] on 00 Sensory impaired Sensory Resolve 2018-04-26 Nima hearing d 1-11 10:15:00 Graves 14:30: [id number] 00 Sensory impaired Sensory Resolve 2018-04-28 Nima verbal d 1-17 10:20:00 Graves communicati 12:45: [id number] on 00 Sensory impaired Sensory Resolve 2018-04-28 Nima hearing d 1-17 10:20:00 Graves 12:45: [id number] 00 Endo/Edgard anti-coagul Endo/Edgard Resolve 2018-05-24 Laura ation d 18 12:30:00 [place] therapy 10:20: [id number] 00 Safety risk for Safety Active Laura hospitaliza 1-18 Jean-Claude tion 10:20: [id number] 00 Safety can be left Safety Resolve 2018-05-10 Laura alone for d 1- 13:45:00 Jean[place]Claude only short 10:10: [id number] periods 00 Sensory impaired Sensory Resolve 2018-05-10 Jia hearing d 05-05 13:45:00 Hillebrand 13:30: t 00 [id number] Sensory impaired Sensory Resolve 2018-05-10 Jia verbal d 05-05 13:45:00 Hillebrand communicati 13:30: t on [id number] Elimination catheter Eliminatio Resolve 2018-05-08 Wandy present n d 05-08 08:50:00 ,Kaylee 08:50: 00 Elimination constipatio Eliminatio Resolve 2018-06-28 Wandy n n d 05-08 09:45:00 ,Kaylee 08:50: 00 Safety cannot be Safety Resolve 2018-05-10 Laura left alone d 05-08 13:45:00 Jean-Claude 08:50: [id number] 00 Elimination catheter Eliminatio Resolve 2018-05-12 Shari present n d 2 09:30:00 Regeczi 09:30: [id number] 00 Safety can be left Safety Resolve 2018-05-17 Laura alone for d 2- 10:00:00 Jean-Claude only short 09:30: [id number] Elimination urinary Eliminatio Resolve 2018-05-15 Laura incontinenc n d 2- 08:45:00 Jean-Claude e 08:45: [id number] 00 Pain frequent Pain Mgmt Resolve 2018-05-17 Laura pain d 2-06 10:00:00 Jean-Claude 10:00: [id number] 00 Respiratory lung sounds Respirator Resolve 2018-05-22 Laura deficit y d 2-06 10:44:00 Jean-Claude 10:00: [id number] 00 Integument pressure Integument Unknown Laura ulcer 2- [place] present 10:00: [id number] 00 Integument skin Integument Resolve 2018-05-17 Laura integrity d 2-06 10:00:00 Jean-Claude risk 10:00: [id number] 00 Integument surgical Integument Resolve 2018-05-17 Laura wound d 2-06 10:00:00 [place] present 10:00: [id number] 00 Activity ADL Activity Unknown Laura assistance 2- Jean-Claude required 10:00: [id number] 00 Activity self-care Activity Resolve 2018-05-19 Laura deficit d 2-06 11:15:00 Jean-Claude 10:00: [id number] 00 Safety fall risk Safety Resolve 2018-05-19 Laura factor d 2- 11:15:00 [place] present 10:00: [id number] 00 Elimination urinary Eliminatio Resolve 2018-05-24 [place]berry incontinenc n d 2-08 12:30:00 ,Kaylee e 11:15: 00 Safety can be left Safety Resolve 2018-05-24 Laura alone for d 2- 12:30:00 Jean-Claude only short 11:15: [id number] 00 Safety fall risk Safety Resolve 2018-05-24 Sonia White factor d 2-12 12:30:00 present 09:48: 41 Endo/Edgard glucose Endo/Edgard Resolve 2018-05-24 Laura tolerance d 2-13 12:30:00 [place] problem 12:30: [id number] 00 Respiratory Incentive Respirator Resolve 2018-06-07 Laura Spirometer y d 2-15 12:00:00 [place] /Acapella 13:40: [id number] Device 00 treatments in home Endo/Edgard anti-coagul Endo/Edgard Resolve 2018-06-12 Laura ation d 2-15 09:30:00 [place] therapy 13:40: [id number] 00 Elimination urinary Eliminatio Resolve 2018-05-26 Laura incontinenc n d 2-15 13:40:00 Jean-Claude e 13:40: [id number] 00 Safety can be left Safety Resolve 2018-06-07 Laura alone for d 2-15 12:00:00 Jean-Claude only short 13:40: [id number] periods 00 Endo/Edgard glucose Endo/Edgard Resolve 2018-06-07 Cherrise tolerance d 06-02 12:00:00 Trixie problem 10:15: [id number] 00 Endo/Edgard insulin Endo/Edgard Resolve 2018-06-12 Cherrise admn d 06-02 09:30:00 [place] dependence 10:15: [id number] 00 Endo/Edgard glucose Endo/Edgard Resolve 2018-06-12 Cherrise testing d 06-02 09:30:00 [place] dependence 10:15: [id number] 00 Safety fall risk Safety Resolve 2018-06-07 Cherrise factor d 06-02 12:00:00 [place] present 10:15: [id number] 00 Musculoskel transfer Musculoske Active Cherrise etal assistance letal 06-02 Trixie required 10:15: [id number] 00 Musculoskel requires Musculoske Active Cherrise etal human letal 06-02 Trixie assist to 10:15: [id number] leave home 00 Elimination urinary Eliminatio Resolve 2018-06-07 Laura incontinenc n d 06-05 12:00:00 Jean-Claude e 12:30: [id number] 00 Activity self-care Activity Resolve 2018-08-14 Laura deficit d 06-05 12:10:00 Jean-Claude 12:30: [id number] 00 Elimination urinary Eliminatio Resolve 2018-06-12 Laura incontinenc n d 06-09 09:30:00 Jean-Claude e 09:13: [id number] 00 Safety can be left Safety Resolve 2018-06-12 Laura alone for d 06-09 09:30:00 Jean-Claude only short 09:13: [id number] periods 00 Respiratory Incentive Respirator Resolve 2018-06-14 Laura Spirometer y d 06-12 09:30:00 Jean-Claude /Acapella 09:30: [id number] Device 00 treatments in home Endo/Edgard anti-coagul Endo/Edgard Resolve 2018-06-30 Laura ation d 06-14 09:19:00 Jean-Claude therapy 09:30: [id number] 00 Safety can be left Safety Resolve 2018-06-30 Laura alone for d 3- 09:19:00 Jean-Claude only short 09:30: [id number] periods 00 Elimination urinary Eliminatio Resolve 2018-06-19 Laura incontinenc n d 3-08 13:45:00 [place] e 09:45: [id number] 00 Elimination urinary Eliminatio Resolve 2018-06-28 Laura incontinenc n d 3- 09:45:00 Jean-Claude e 13:15: [id number] 00 Elimination constipatio Eliminatio Resolve 2018-07-14 Laura n n d 3 09:20:00 Jean-Claude 09:19: [id number] 00 Endo/Edgard anti-coagul Endo/Edgard Resolve 2018-07-14 Laura ation d 3 09:20:00 Jean-Claude therapy 12:49: [id number] 00 Elimination urinary Eliminatio Resolve 2018-07-14 Laura incontinenc n d 07-03 09:20:00 Jean-Cla[place] e 12:49: [id number] 00 Safety can be left Safety Resolve 2018-08-18 Laura alone for d 3- 12:05:00 Jean-Claude only short 12:50: [id number] periods 00 Endo/Edgard glucose Endo/Edgard Resolve 2018-07-14 Shi testing d 07-10 09:20:00 Sorin, dependence 12:30: [id number] 00 Pain frequent Pain Mgmt Resolve 2018-07-14 Laura pain d 4 09:20:00 Jean-Claude 09:20: [id number] 00 Integument surgical Integument Resolve 2018-08-13 Laura wound d 4-05 12:50:00 [place] present 09:20: [id number] 00 Integument skin Integument Resolve 2018-08-13 Laura integrity d 4-05 12:50:00 Jean[place]Cla[place] risk 09:20: [id number] 00 Safety fall risk Safety Resolve 2018-08-18 Laura factor d 4-05 12:05:00 [place] present 09:20: [id number] 00 Endo/Edgard anti-coagul Endo/Edgard Resolve 2018-08-14 Laura ation d 07-17 12:10:00 [place] therapy 13:00: [id number] 00 Elimination urinary Eliminatio Resolve 2018-07-21 Laura incontinenc n d 07-17 09:25:00 [place] e 13:00: [id number] 00 Activity ADL Activity Unknown Laura assistance 07-17 Jean-Claude required 13:00: [id number] 00 Elimination urinary Eliminatio Resolve 2018-08-14 Laura incontinenc n d 07-24 12:10:00 Jean-Claude e 09:27: [id number] 00 Pain frequent Pain Mgmt Resolve 2018 Laura pain d 08-07 09:20:00 Jean-[place]ude 12:45: [id number] 00 Cardio edema Cardiovasc Resolve 2018 Laura ular d 08-07 09:20:00 Jean-[place]ude 12:45: [id number] 00 Respiratory dyspnea Respirator Resolve 2018 Laura present y d 08-07 09:20:00 Jean-Claude 12:45: [id number] 00 Endo/Edgard diabetic Endo/Edgard Resolve 2018-08-14 Laura foot care d 08-07 12:10:00 Jean-Claude 12:45: [id number] 00 Nutrition knowledge/s Nutrition Active Laura kill 08-07 Jean-Claude deficit: pt 12:45: [id number] 00 Nutrition nutritional Nutrition Active Laura restriction 08-07 Jean-Claude s 12:45: [id number] 00 Neuro confusion Neuro/Emot Resolve 2018-08-14 Laura present ion d 08-07 12:10:00 Jean-Claude 12:45: [id number] 00 Medication oral med Meds Resolve 2018 Laura assistance d 08-07 09:20:00 Jean[place]Claude required 12:45: [id number] 00 Medication injectable Meds Resolve 2018 Jia med d 08-07 09:20:00 Jerardo assistance 12:45: [id number] required 00 Cardio edema Cardiovasc Resolve 2018-08-23 Laura ular d 08-13 11:15:00 [place] 12:50: [id number] 00 Respiratory dyspnea Respirator Resolve 2018-08-14 Laura present y d 08-13 12:10:00 Jean[place]ude 12:50: [id number] 00 Endo/Edgard anti-coagul Endo/Edgard Resolve 2018-08-28 Laura ation d 08-16 12:00:00 [place] therapy 12:15: [id number] 00 Elimination urinary Eliminatio Resolve 2018-08-21 Laura incontinenc n d 08-16 12:45:00 [place] e 12:15: [id number] 00 Sensory impaired Sensory Resolve 2018-08-21 Krystyna verbal d 08-17 12:45:00 [place] communicati 14:30: [id number] on 00 Sensory impaired Sensory Resolve 2018-08-21 Krystyna hearing d 08-17 12:45:00 [place] 14:30: [id number] 00 Social financial LILLIAN: Resolve 2019-02-16 Krystyna Services resource Social d 08-17 13:45:00 [place] deficit Services 14:30: [id number] 00 Social knowledge/s LILLIAN: Resolve 2018-08-17 Krystyna Services kill Social d 08-17 14:30:00 [place] deficit - Services 14:30: [id number] pt 00 Social knowledge/s LILLIAN: Resolve 2018-08-17 Krystyna Services kill Social d 08-17 14:30:00 [place] deficit - Services 14:30: [id number] cg 00 Safety can be left Safety Resolve 2018-09-07 Laura alone for d 08-23 10:00:00 Jean-Claude only short 11:15: [id number] periods 00 Social knowledge/s LILLIAN: Active Laura Services kill Social 08-23 [place] deficit - Services 11:15: [id number] pt 00 Elimination urinary Eliminatio Resolve 2018-09-07 Laura incontinenc n d 08-25 10:00:00 Jean-Claude e 11:45: [id number] 00 Sensory impaired Sensory Resolve 2018-09-07 Krystyna verbal d 09-01 10:00:00 [place] communicati 14:45: [id number] on 00 Sensory impaired Sensory Resolve 2018-09-07 Krystyna hearing [facility] 09[facility]01 [facility] 14:45: [id number] 00 Social knowledge/s LILLIAN: Active Krystyna Services kill Social 09-01 [facility] deficit - Services 14:45: [id number] cg 00 Respiratory dyspnea Respirator Resolve 2018-09-15 Laura present y d 09-07 10:35:00 Jean[place]Claude 10:00: [id number] 00 Pain frequent Pain Mgmt Resolve 2018-09-11 Laura pain d 09-11 11:50:00 Jean[place]Claude 11:50: [id number] 00 Cardio hypertensio Cardiovasc Resolve 2018-09-11 Laura n ular d 09-11 11:50:00 Jean[place]Claude 11:50: [id number] 00 Integument pressure Integument Resolve 2018-09-15 Laura ulcer d 09-11 10:35:00 Jean-Claude present 11:50: [id number] 00 Integument surgical Integument Resolve 2018-09-15 Alura wound d 09-11 10:35:00 [place] present 11:50: [id number] 00 Integument skin Integument Resolve 2018-09-15 Laura integrity d 09-11 10:35:00 Jean-Claude risk 11:50: [id number] 00 Elimination urinary Eliminatio Resolve 2018-09-11 Laura incontinenc n d 09-11 11:50:00 [place] e 11:50: [id number] 00 Activity ADL Activity Unknown Laura assistance 09-11 Jean-Claude required 11:50: [id number] 00 Activity self-care Activity Resolve 2018-09-15 Laura deficit d 09-11 10:35:00 [place] 11:50: [id number] 00 Safety fall risk Safety Resolve 2018-09-15 Laura factor d 09-11 10:35:00 [place] present 11:50: [id number] 00 Safety can be left Safety Resolve 2018-09-15 Laura alone for d 09-11 10:35:00 Jean[place]Claude only short 11:50: [id number] periods 00 Endo/Edgard anti-coagul Endo/Edgard Resolve 2018-09-18 Laura ation d 6-07 12:20:00 [place] therapy 10:35: [id number] 00 Elimination urinary Eliminatio Resolve 2018-09-18 Laura incontinenc n d 09-15 12:20:00 Jean[place]Cla[place] e 10:35: [id number] 00 Elimination constipatio Eliminatio Resolve 2018-09-18 Laura n n d 09-15 12:20:00 Jean[place] 10:35: [id number] 00 Safety can be left Safety Resolve 2018-09-25 Laura alone for d 09-18 11:45:00 [place] only short 12:20: [id number] periods 00 Cardio hypertensio Cardiovasc Resolve 2018-09-21 Laura n ular d 09-21 11:45:00 [place] 11:45: [id number] 00 Endo/Edgard anti-coagul Endo/Edgard Resolve 2018-09-25 Laura ation d 09-21 11:45:00 Jean[place]Cla[place] therapy 11:45: [id number] 00 Cardio hypertensio Cardiovasc Resolve 2018-10-02 Laura n ular d 09-25 12:05:00 Jean[place]Cla[place] 11:45: [id number] 00 Elimination urinary Eliminatio Resolve 2018-10-02 Laura incontinenc n d 09-25 12:05:00 [place]Cla[place] e 11:45: [id number] 00 Endo/Edgard anti-coagul Endo/Edgard Resolve 2018-10-02 Laura ation d 09-29 12:05:00 Jean[place]Claude therapy 09:45: [id number] 00 Safety can be left Safety Resolve 2018-10-02 Laura alone for d 09-29 12:05:00 Jean-Claude only short 09:45: [id number] periods 00 Endo/Edgard anti-coagul Endo/Edgard Resolve 2018-10-27 Laura ation d 10-04 11:30:00 Jean-Claude therapy 10:10: [id number] 00 Elimination urinary Eliminatio Resolve 2018-10-06 Laura incontinenc n d 10-04 09:10:00 Jean[place]Cla[place] e 10:10: [id number] 00 Elimination constipatio Eliminatio Resolve 2018-10-06 Laura n n d 10-04 09:10:00 Jean-Claude 10:10: [id number] 00 Safety can be left Safety Resolve 2018-10-06 Laura alone for d 10-04 09:10:00 Jean-Claude only short 10:10: [id number] periods 00 Sensory impaired Sensory Resolve 2018-10-23 Krystyna verbal d 6 11:56:00 [place] communicati 15:00: [id number] on 00 Sensory impaired Sensory Resolve 2018-10-23 Krystyna hearing d 10-05 11:56:00 [place] 15:00: [id number] 00 Elimination urinary Eliminatio Resolve 2018-10-27 Laura incontinenc n d 10-09 11:30:00 Jean-Claude e 12:15: [id number] 00 Elimination bloody Eliminatio Resolve 2018-10-27 Laura urine n d 10-09 11:30:00 Jean-Claude 12:15: [id number] 00 Safety can be left Safety Resolve 2018-10-23 Laura alone for d 10-09 11:56:00 Jean[place]Claude only short 12:15: [id number] Elimination constipatio Eliminatio Resolve 2018-12-08 Laura n n d 10-16 14:00:00 Jean-Claude 12:35: [id number] 00 Cardio edema Cardiovasc Resolve 2018-10-27 Laura ular d 10-20 11:30:00 Jean-Claude 11:35: [id number] 00 Endo/Edgard knowledge/s Endo/Edgard Resolve 2018-10-27 Laura kill d 10-20 11:30:00 Jean-Calude deficit: pt 11:35: [id number] 00 Sensory impaired Sensory Unknown Jonatan verbal 7-15 Demarco, communicati 13:30: PT on [id number] Sensory impaired Sensory Unknown Jonatan hearing 7-15 Demarco, 13:30: PT 00 [id number] Safety can be left Safety Resolve 2018-10-27 Laura alone for d 7- 11:30:00 Jean-Claude only short 10:35: [id number] periods 00 Endo/Edgard glucose Endo/Edgard Resolve 2018-12-11 Cherrise tolerance d 10-30 09:30:00 Trixie problem 11:55: [id number] 00 Endo/Edgard insulin Endo/Edgard Resolve 2018-12-13 Cherrise admn d 10-30 11:10:00 [place] dependence 11:55: [id number] 00 Endo/Edgard glucose Endo/Edgard Resolve 2018-12-13 Cherrise testing d 10-30 11:10:00 [place] dependence 11:55: [id number] 00 Endo/Edgard knowledge/s Endo/Edgard Resolve 2018-12-08 Cherrise kill d 10-30 14:00:00 [place] deficit: pt 11:55: [id number] 00 Elimination urinary Eliminatio Resolve 2018-12-08 Cherrise urgency n d 10-30 14:00:00 Trixie 11:55: [id number] 00 Neuro depressive Neuro/Emot Resolve 2018-12-08 Cherrise feelings ion d 10-30 14:00:00 [place] present 11:55: [id number] 00 Neuro impaired Neuro/Emot Resolve 2018-12-08 Cherrise decision-ma ion d 10-30 14:00:00 [place] pj 11:55: [id number] 00 Safety fall risk Safety Resolve 2018-12-06 Cherrise factor d 10-30 13:05:00 [place] present 11:55: [id number] 00 Endo/Edgard anti-coagul Endo/Edgard Resolve 2018-12-13 Shi ation d 11-01 11:10:00 Sorin, therapy 12:30: [id number] 00 Respiratory Incentive Respirator Resolve 2018-11-29 Cherrise Spirometer y d 11-03 10:15:00 Trixie /Acapella 10:25: [id number] Device 00 treatments in home Elimination urinary Eliminatio Resolve 2018-12-08 Cherrise frequency n d 11-03 14:00:00 [place] 10:25: [id number] 00 Respiratory lung sounds Respirator Resolve 2018-11-29 Cherrise deficit y d 11-06 10:15:00 Trixie 12:05: [id number] 00 Neuro memory Neuro/Emot Resolve 2018-12-08 Cherrise deficit ion d 7-31 14:00:00 [place] needing 10:30: [id number] supervision 00 Pain frequent Pain Mgmt Resolve 2018-12-06 Shi pain d 11-10 13:05:00 Sorin, 11:00: [id number] 00 Integument pressure Integument Active Shi ulcer 11-10 Sorin, present 11:00: [id number] 00 Integument surgical Integument Active Shi wound 11-10 Sorin, present 11:00: [id number] 00 Integument skin Integument Active Shi integrity 11-10 Sorin, risk 11:00: [id number] 00 Elimination urinary Eliminatio Resolve 2018-12-08 Shi incontinenc n d 11-10 14:00:00 Sorin, e 11:00: [id number] 00 Activity self-care Activity Resolve 2018-11-29 Shi deficit d 11-10 10:15:00 Sorin, 11:00: [id number] 00 Activity ADL Activity Resolve 2018-12-08 Shi assistance d 11-10 14:00:00 Sorin, required 11:00: [id number] 00 Pain knowledge/s Pain Mgmt Resolve 2018-12-06 Krystyna kill d 11-16 13:05:00 [place] deficit: cg 15:15: [id number] 00 Respiratory knowledge/s Respirator Resolve 2018-11-29 Krystyna kill y d 11-16 10:15:00 [place] deficit: cg 15:15: [id number] 00 Integument knowledge/s Integument Active 2018- Krystyna kill 11-16 [place] deficit: cg 15:15: [id number] 00 Elimination knowledge/s Eliminatio Resolve 2018-12-08 Krystyna kill n d 11-16 14:00:00 [place] deficit: cg 15:15: [id number] 00 Safety knowledge/s Safety Resolve 2018-12-06 Krystyna kill d 11-16 13:05:00 [place] deficit: cg 15:15: [id number] 00 Cardio hypertensio Cardiovasc Resolve 2018-11-29 Lenny ruiz d 11-17 10:15:00 Trixie 10:45: [id number] 00 Safety can be left Safety Resolve 2018-12-08 Shi alone for d 11-22 14:00:00 nancy Rowell 11:00: [id number] periods 00 Sensory impaired Sensory Resolve 2018-12-08 Laura verbal d 11-24 14:00:00 Jean-Claude communicati 09:30: [id number] on Sensory impaired Sensory Resolve 2018-12-08 Laura hearing d 11-24 14:00:00 [place] 09:30: [id number] 00 Respiratory knowledge/s Respirator Resolve 2018-12-08 Laura kill y d 12-01 14:00:00 [place] deficit: cg 09:30: [id number] 00 Sensory impaired Sensory Unknown Krystyna verbal 12-08 [place] communicati 15:00: [id number] on Sensory impaired Sensory Unknown Krystyna hearing 12-08 [place] 15:00: [id number] 00 Respiratory knowledge/s Respirator Resolve 2018-12-13 Laura kill y d 12-11 11:10:00 [place] deficit: cg 09:30: [id number] 00 Endo/Edgard knowledge/s Endo/Edgard Resolve 2018-12-13 Laura kill d 12-11 11:10:00 [place] deficit: pt 09:30: [id number] 00 Elimination urinary Eliminatio Resolve 2018-12-15 Laura incontinenc n d 12-11 13:10:00 Jean-Claude e 09:30: [id number] 00 Safety can be left Safety Resolve 2018-12-15 Laura alone for d 12-11 13:10:00 Jean-Claude only short 09:30: [id number] 00 Endo/Edgard knowledge/s Endo/Edgard Resolve 2019-01-05 Laura kill d 12-15 11:00:00 [place] deficit: pt 13:10: [id number] 00 Endo/Edgard anti-coagul Endo/Edgard Resolve 2019-01-05 Laura ation d 12-15 11:00:00 Jean-Claude therapy 13:10: [id number] 00 Elimination urinary Eliminatio Resolve 2018-12-27 Laura incontinenc n d 12-18 09:20:00 Jean-Claude e 12:10: [id number] 00 Safety can be left Safety Resolve 2019-01-05 Laura alone for d 12-18 11:00:00 Jean-Claude only short 12:10: [id number] periods 00 Elimination constipatio Eliminatio Resolve 2019-01-05 Laura n n d 12-20 11:00:00 Jean-Claude 12:15: [id number] 00 Pain frequent Pain Mgmt Resolve 2019-01-15 Laura pain d 12-27 12:30:00 Jean-Claude 09:20: [id number] 00 Respiratory dyspnea Respirator Resolve 2019-01-05 Laura present y d 12-27 11:00:00 Jean-Claude 09:20: [id number] 00 Endo/Edgard diabetic Endo/Edgard Resolve 2019-01-05 Laura foot care d 12-27 11:00:00 Jean-Claude 09:20: [id number] 00 Elimination diarrhea Eliminatio Resolve 2019-01-05 Laura n d 12-27 11:00:00 Jean-Claude 09:20: [id number] 00 Neuro confusion Neuro/Emot Resolve 2019-01-05 Laura present ion d 12-27 11:00:00 Jean-Claude 09:20: [id number] 00 Neuro anxiety Neuro/Emot Resolve 2019-01-05 Laura present ion d 12-27 11:00:00 Jean-Claude 09:20: [id number] 00 Activity ADL Activity Resolve 2019-01-05 Laura assistance d 12-27 11:00:00 Jean-Claude required 09:20: [id number] 00 Activity self-care Activity Resolve 2019-01-05 Laura deficit d 12-27 11:00:00 Jean-Claude 09:20: [id number] 00 Safety fall risk Safety Resolve 2019-01-05 Laura factor d 9-18 11:00:00 [place] present 09:20: [id number] 00 Medication potential Meds Resolve 2019-01-05 Laura clinically d 9-18 11:00:00 [place] significant 09:20: [id number] medication 00 issue Elimination urinary Eliminatio Resolve 2019-01-05 Laura incontinenc n d 920 11:00:00 [place] e 11:20: [id number] 00 Endo/Edgard knowledge/s Endo/Edgard Resolve 2019-01-10 Laura kill d 01-08 10:00:00 Jean-Claude deficit: pt 11:30: [id number] 00 Endo/Edgard anti-coagul Endo/Edgard Resolve 2019-01-10 Laura ation d 01-08 10:00:00 Jean-Claude therapy 11:30: [id number] 00 Elimination urinary Eliminatio Resolve 2019-01-15 Laura incontinenc n d 01-08 12:30:00 Jean-Claude e 11:30: [id number] 00 Safety can be left Safety Resolve 2019-02-16 Laura alone for d 01-08 12:00:00 Jean-[place] only short 11:30: [id number] periods 00 Respiratory dyspnea Respirator Resolve 2018-042019-01-26 Laura present y d 0-02 10:00:00 Jean-Claude 10:00: [id number] 00 Activity ADL Activity Resolve 2018-042019-01-12 Laura assistance d 0-02 11:30:00 [place] required 10:00: [id number] 00 Activity self-care Activity Resolve 2018-042019-01-12 Laura deficit d 0-02 11:30:00 Jean-Claude 10:00: [id number] 00 Safety fall risk Safety Resolve 2018-042019-01-12 Laura factor d 0-02 11:30:00 Jean-Claude present 10:00: [id number] 00 Medication injectable Meds Resolve 2018-042019-01-17 Laura med d 0-02 09:45:00 [place] assistance 10:00: [id number] required 00 Endo/Edgard knowledge/s Endo/Edgard Resolve 2018-042019-01-15 Laura kill d 0-04 12:30:00 Jean-Cla[place] deficit: pt 11:30: [id number] 00 Endo/Edgard anti-coagul Endo/Edgard Resolve 2018-042019-01-15 Laura ation d 0-04 12:30:00 [place] therapy 11:30: [id number] 00 Elimination constipatio Eliminatio Resolve 2018-042019-01-15 Laura n n d 0-04 12:30:00 [place] 11:30: [id number] 00 Sensory impaired Sensory Resolve 2018-042019-01-15 Krystyna verbal d 0-04 12:30:00 [place] communicati 15:30: [id number] on 00 Sensory impaired Sensory Resolve 2018-042019-01-15 Krystyna hearing d 0-04 12:30:00 [place] 15:30: [id number] 00 Infection s/s of Infection Resolve 2018-042019-03-09 Laura infection d 0-07 11:00:00 [place] 12:30: [id number] 00 Sensory impaired Sensory Resolve 2018-042019-01-22 Jonatan verbal d 0-08 11:00:00 ambrosio Pal 13:00: PT on [id number] Sensory impaired Sensory Resolve 2018-042019-01-22 Jonatan hearing d 0-08 11:00:00 Demarco, 13:00: PT 00 [id number] Endo/Edgard knowledge/s Endo/Edgard Resolve 2018-042019-02-07 Laura kill d 0-09 11:20:00 [place] deficit: pt 09:45: [id number] 00 Endo/Edgard anti-coagul Endo/Edgard Resolve 2018-042019-02-07 Laura ation d 0-09 11:20:00 Jean-Cla[place] therapy 09:45: [id number] 00 Elimination urinary Eliminatio Resolve 2018-042019-02-02 Laura incontinenc n d 0-09 11:30:00 Jean-[place] e 09:45: [id number] 00 Elimination constipatio Eliminatio Resolve 2018-042019-02-02 Laura n n d 0-16 11:30:00 [place] 10:00: [id number] 00 Sensory impaired Sensory Resolve 2018-042019-01-31 Jonatan verbal d 0-17 11:10:00 ambrosio Pal 15:00: PT on [id number] Sensory impaired Sensory Resolve 2019-1 2019-01-31 Jonatan hearing d 0-17 11:10:00 Demarco, 15:00: PT 00 [id number] Pain frequent Pain Mgmt Resolve 2018-042019-02-16 Jonatan pain d 0-23 12:00:00 Demarco, 13:00: PT 00 [id number] Sensory impaired Sensory Unknown 2018-04 Jonatan verbal 0-23 Demarco, communicati 13:00: PT on 00 [id number] Sensory impaired Sensory Unknown 2018-04 Jonatan hearing 0-23 Demarco, 13:00: PT 00 [id number] Respiratory dyspnea Respirator Resolve 2018-042019-02-07 Laura present y d 0-25 11:20:00 [place] 11:30: [id number] 00 Elimination urinary Eliminatio Resolve 2018-042019-02-07 Laura incontinenc n d 0-28 11:20:00 [place] e 12:40: [id number] 00 Endo/Edgard knowledge/s Endo/Edgard Resolve 2018-042019-02-19 Laura kill d 04-11 12:40:00 Jean-[place] deficit: pt 12:30: [id number] 00 Endo/Edgard anti-coagul Endo/Edgard Resolve 2018-042019-02-19 Laura ation d 04-11 12:40:00 [place] therapy 12:30: [id number] 00 Elimination urinary Eliminatio Resolve 2018-042019-02-16 Laura incontinenc n d 04-11 12:00:00 Jean-Claude e 12:30: [id number] 00 Medication potential Meds Resolve 2018-042019-02-24 Laura clinically d 1 09:45:00 Jean-Claude significant 12:20: [id number] medication 00 issue Elimination constipatio Eliminatio Resolve 2018-042019-02-16 Laura n n d 04-16 12:00:00 [place] 11:20: [id number] 00 Elimination urinary Eliminatio Resolve 2018-042019-02-24 Laura incontinenc n d 04-21 09:45:00 [place] e 12:40: [id number] 00 Safety can be left Safety Resolve 2018-042019-02-24 Laura alone for d 04-21 09:45:00 Jean-Claude only short 12:40: [id number] periods 00 Endo/Edgard knowledge/s Endo/Edgard Resolve 2018-042019-02-24 Laura kill d 1-13 09:45:00 [place] deficit: pt 12:05: [id number] 00 Endo/Edgard anti-coagul Endo/Edgard Resolve 2018-042019-02-24 Laura ation d 1- 09:45:00 Jean-Claude therapy 12:05: [id number] 00 Sensory impaired Sensory Resolve 2018-042019-02-26 Laura verbal d 04-26 13:20:00 Jean-Claude communicati 09:45: [id number] on 00 Sensory impaired Sensory Resolve 2018-042019-02-26 Laura hearing d 16 13:20:00 Jean-Claude 09:45: [id number] 00 Endo/Edgard knowledge/s Endo/Edgard Resolve 2018-042019-02-28 Laura kill d 04-28 11:15:00 Jean-[place] deficit: pt 13:20: [id number] 00 Endo/Edgard anti-coagul Endo/Edgard Resolve 2018-042019-02-28 Laura ation d 04-28 11:15:00 [place] therapy 13:20: [id number] 00 Elimination urinary Eliminatio Resolve 2018-042019-03-09 Laura incontinenc n d 04-28 11:00:00 Jean-Claude e 13:20: [id number] 00 Safety can be left Safety Resolve 2018-042019-03-05 Laura alone for d 04-28 12:45:00 [place] only short 13:20: [id number] periods 00 Endo/Edgard knowledge/s Endo/Edgard Resolve 2018-042019-03-09 Laura kill d 05-05 11:00:00 [place] deficit: pt 12:45: [id number] 00 Endo/Edgard anti-coagul Endo/Edgard Resolve 2018-042019-03-09 Laura ation d 05-05 11:00:00 [place] therapy 12:45: [id number] 00 Safety can be left Safety Resolve 2018-042019-03-09 Laura alone for d 05-07 11:00:00 Jean-Cla[place] only short 11:25: [id number] periods 00 Sensory impaired Sensory Resolve 2018-042019-03-12 Krystyna verbal d 05-09 11:15:00 Kendrickunstein communicati 12:00: [id number] on 00 Sensory impaired Sensory Resolve 2018-042019-03-12 Krystyna hearing d 05-09 11:15:00 [facility] 12:00: [id number] 00 Social financial LILLIAN: Active 2018-04 Krystyna Services resource Social 05-09 [facility] deficit Services 12:00: [id number] 00 Respiratory dyspnea Respirator Resolve 2018-042019-03-14 Laura present y d 05-13 10:30:00 Jean-Claude 11:15: [id number] 00 Endo/Edgard knowledge/s Endo/Edgard Active 2018-04 Laura kill 05-13 [place] deficit: pt 11:15: [id number] 00 Endo/Edgard anti-coagul Endo/Edgard Active 2018-04 Laura ation 05-13 Jean-Claude therapy 11:15: [id number] 00 Elimination urinary Eliminatio Resolve 2018-042019-03-14 Laura incontinenc n d 05-13 10:30:00 [place] e 11:15: [id number] 00 Activity ADL Activity Resolve 2018-042019-03-14 Laura assistance d 05-13 10:30:00 Jean-Cla[place] required 11:15: [id number] 00 Activity self-care Activity Resolve 2018-042019-03-14 Laura deficit d 05-13 10:30:00 Jean-Claude 11:15: [id number] 00 Safety fall risk Safety Resolve 2018-042019-03-14 Laura factor d 05-13 10:30:00 [place] present 11:15: [id number] 00 Safety can be left Safety Resolve 2018-042019-03-14 Laura alone for d 05-13 10:30:00 Jean-Cla[place] only short 11:15: [id number] periods 00 Medication injectable Meds Resolve 2018-042019-03-12 Laura med d 05-13 11:15:00 [place] assistance 11:15: [id number] required 00 Safety can be left Safety Resolve 2018-042019-03-19 Laura alone for d 05-17 11:40:00 Jean[place] only short 09:15: [id number] periods 00 Elimination urinary Eliminatio Resolve 2018-042019-03-30 Laura incontinenc n d 05-20 10:45:00 Jean-Cla[place] e 11:40: [id number] 00 Safety can be left Safety Resolve 2018-042019-03-26 Laura alone for d 2-11 11:00:00 [place] only short 11:30: [id number] periods 00 Safety can be left Safety Resolve 2018-2019-03-30 Laura alone for d 2-18 10:45:00 [place] only short 10:30: [id number] periods 00 Allergies, Adverse Reactions, Alerts Allergy Name Allergy Status Severity Reaction(s) Onset Inactive Treating Comments Type Date Date Clinician bananas Unknown Active Unknown Reaction 2017-04 Roselyn Unknown 0-10 (Radha) Nithin [id number] keflex Unknown Active Unknown Reaction 2017-04 Roselyn Unknown 0-10 (Rdaha) Nithin [id number] nuts Unknown Active Unknown Reaction 2017-04 Roselyn Unknown 0-10 (Radha) Nithin [id number] Cipro Medication Active Unknown Reaction 2017-04 Sonia Quinn Name ID Unknown 0-10 metronidazol Base Active Unknown Nausea and 2017-04 Roselyn e Ingredient vomiting 20 Guidelli [id number] Medications Ordered Filled Start Stop Current Ordering [...] inhalation Lantus Lantus No Shallish 38 Unknown Solostar Jamie Michelle MD units U-100 U-100 Insulin 100 Insulin 100 unit/mL (3 unit/mL (3 mL) mL) subcutaneou subcutaneou s pen s pen acetaminoph acetaminoph No Shallish 2 tabs Unknown en 325 mg en 325 mg ,Jamie tablet tablet Rapaflo 8 Rapaflo 8 2017-04 2019- No Shallish Unknown Unknown mg capsule mg capsule 0-10 -28 ,Jamie Klor-Con Klor-Con No Shallish 1 Unknown M20 mEq M20 mEq ,Jamie tablet tablet,exte tablet,exte nded nded release release gabapentin gabapentin No Shallish 1 Unknown 300 mg 300 mg ,Jamie capsule capsule capsule furosemide furosemide 2017-04 No Shallish Unknown Unknown 20 mg 20 mg 0-10 MD,Jamie tablet tablet finasteride finasteride No Shallish 1 Unknown 5 mg tablet 5 mg tablet MD,Jamie tablet ferrous ferrous No Shallish 1 Unknown sulfate 325 sulfate 325 MD,Jamie tablet mg (65 mg mg (65 mg iron) iron) tablet tablet fenofibrate fenofibrate No Shallish 1 Unknown nanocrystal nanocrystal ,Jamie tablet lized 145 lized 145 mg tablet mg tablet ascorbic ascorbic No Shallish 1 tab Unknown acid acid ,Jamie (vitamin C) (vitamin C) 500 mg 500 mg tablet tablet amiodarone amiodarone No Shallish 1 tab Unknown 200 mg 200 mg MD,Jamie tablet tablet cyclobenzap cyclobenzap No [place] 1 Unknown rine 10 mg rine 10 mg MD,Jamie tablet tablet tablet Refresh Refresh No Shallish 1 drop Unknown Liquigel 1 Liquigel 1 Jamie DAVID % eye % eye liquid gel liquid gel drops drops Xarelto 20 Xarelto 20 No Shallish 1 tab Unknown mg tablet mg tablet Jamie DAVID Aspirin Aspirin No Shallish 1 tab Unknown [facility] ,Jamie 81 mg 81 mg chewable chewable tablet [...] nded nded release release loperamide loperamide No [place] 1-2 Unknown 2 mg tablet 2 mg tablet Latanya DAVID T tabs ( 2 tabs after 1st loose stool, then 1 tab up to 4 tabs/da y) clotrimazol clotrimazol No Shallish 1 tab Unknown e 10 mg e 10 mg ,Jamie dissolv dutch dutch e in mouth docusate [...] 0-10 MD,Jamie tablet tablet rivaroxaban rivaroxaban 2017-04 No [place]ish Unknown Unknown 20 mg 20 mg 0-10 04-29 MD,Jamie tablet tablet MS Contin MS Contin 2017-04 No [place] Unknown Unknown 30 mg 30 mg 0-10 MD,Jamie tablet,exte tablet,exte nded nded release release Levemir Levemir 2017-04 2018- No Shallish Unknown Unknown FlexTouch FlexTouch 0-10 12-26 MD,Jamie U-100 U-100 Insulin 100 Insulin 100 [...] No [place]ish Unknown Unknown gram/dose gram/dose 0- ,Jamie oral powder oral powder sulfamethox sulfamethox 2017-04- No Shallish Unknown Unknown azole 400 azole 400 04-24 ,Jamie mg-trimetho mg-trimetho prim 80 mg prim 80 mg tablet tablet cefUROXime cefUROXime 2017-04- No Shallish Unknown Unknown axetil 250 axetil 250 06-05 ,Jamie mg tablet mg tablet Refresh Refresh 2017-04 No Shallish Unknown Unknown Optive 1 Optive 1 06-06 ,Jamie %-0.9 % eye %-0.9 % eye gel drops gel drops Restasis Restasis 2017-04 No Shallish Unknown Unknown MultiDose MultiDose 06-06 ,Jamie 0.05 % eye 0.05 % eye drops drops Combivent Combivent 2017-04 No Shallish Unknown Unknown Respimat 20 Respimat 20 06-06 ,Jamie mcg-100 mcg-100 mcg/actuati mcg/actuati on solution on solution for for inhalation inhalation Levemir Levemir 2017-04- No Shallish Unknown Unknown FlexTouch FlexTouch 06-06 Jamie DAVID U-100 U-100 Insulin 100 Insulin 100 unit/mL (3 unit/mL (3 mL) mL) subcutaneou subcutaneou s pen s pen testosteron testosteron 2017-04 No [place] Unknown Unknown e cypionate e cypionate 06-06 Latanya DAVID 200 mg/mL 200 mg/mL intramuscul intramuscul ar kit ar kit mometasone mometasone 2017-04 No [place] Unknown Unknown 0.1 % 0.1 % 06-06 Latanya DAVID topical topical cream cream finasteride finasteride 2017-04 No [place] Unknown Unknown 5 mg tablet 5 mg tablet 06-06 Latanya DAVID Levemir Levemir 2017-04- No [place] Unknown Unknown FlexTouch FlexTouch 06-06 Latanya DAVID U-100 U-100 Insulin 100 Insulin 100 unit/mL (3 unit/mL (3 mL) mL) subcutaneou subcutaneou s pen s pen Levemir Levemir 2018- No Shallish Unknown Unknown FlexTouch FlexTouch 05-01 0610 MD,Jamie U-100 U-100 Insulin 100 Insulin 100 unit/mL (3 unit/mL (3 mL) mL) subcutaneou subcutaneou s pen s pen warfarin 5 warfarin 5 Shallish Unknown Unknown mg tablet mg tablet 08-07 MD,Jamie warfarin 5 warfarin 5 Shallish Unknown Unknown mg tablet mg tablet 08-09 MD,Jamie warfarin 5 warfarin 5 [place]ish Unknown Unknown mg tablet mg tablet 08-13 MD,Jamie amoxicillin amoxicillin Shallish Unknown Unknown 500 mg 500 mg 08-11 MD,Jamie tablet tablet doxycycline doxycycline Shallish Unknown Unknown hyclate 100 hyclate 100 08-13 MD,Jamie mg capsule mg capsule warfarin 5 warfarin 5 Shallish Unknown Unknown mg tablet mg tablet 08-14 MD,Jamie warfarin 5 warfarin 5 [place]ish Unknown Unknown mg tablet mg tablet 08-16 MD,Jamie warfarin 5 warfarin 5 [place]ish Unknown Unknown mg tablet mg tablet 08-18 MD,Jamie warfarin 5 warfarin 5 Shallish Unknown Unknown mg tablet mg tablet 08-21 MD,Jamie warfarin 5 warfarin 5 Shallish Unknown Unknown mg tablet mg tablet 08-23 MD,Jamie Coumadin Coumadin Shallish Unknown Unknown 2.5 mg 2.5 mg 08-25 MD,Jamie tablet tablet Coumadin Coumadin Shallish Unknown Unknown 2.5 mg 2.5 mg 08-2830 MD,Jamie tablet tablet Coumadin Coumadin Shallish Unknown Unknown 2.5 mg 2.5 mg 09-07 MD,Jamie tablet tablet Coumadin Coumadin Shallish Unknown Unknown 2.5 mg 2.5 mg 09-07- MD,Jamie tablet tablet Coumadin Coumadin Shallish Unknown Unknown 2.5 mg 2.5 mg 09-11 MD,Jamie tablet tablet Coumadin Coumadin 2018- No Shallish Unknown Unknown 2.5 mg 2.5 mg 09-15 ,Jamie tablet tablet Eliquis 5 Eliquis 5 No Shallish Unknown Unknown mg tablet mg tablet 09-21 MD,Jamie Levemir Levemir No Shallish Unknown Unknown FlexTouch FlexTouch 6 MD,Jamie U-100 U-100 Insulin 100 Insulin 100 [...] Observation Time Observation Value Comments SYSTOLIC mm[Hg] 2019-03-30 18:09:27 136 mm[Hg] mm[Hg] Method: Sit SYSTOLIC mm[Hg] 2018-01-23 18:02:16 122 mm[Hg] mm[Hg] Method: Stand DIASTOLIC mm[Hg] 2019-03-30 18:09:27 78 mm[Hg] mm[Hg] Method: Sit DIASTOLIC mm[Hg] 2018-01-23 18:02:16 60 mm[Hg] mm[Hg] Method: Stand PULSE 2019-03-30 18:09:27 70 /min /min RESP RATE 2019-03-30 18:09:27 16 /min /min TEMP 2019-03-30 18:09:27 98.1 [degF] Procedures This patient has no known procedures. Results This patient has no known results.
--- OUTSIDE RECORDS SUMMARY | 2019-04-11 14:36 | XMS REPORT ---
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 1- Jean-Claude ulcer of ulcer of [id number] other part other part of right of right foot with foot with fat layer fat layer exposed exposed Non-pressur Non-pressur Diagnosis Active Laura e chronic e chronic 1- Jean[place] ulcer of ulcer of [id number] other part other part of left of left foot with foot with fat layer fat layer exposed exposed Type 2 Type 2 Diagnosis Active 2018-04 Laura diabetes diabetes 0-10 [place] mellitus mellitus [id number] with other with other skin ulcer skin ulcer Non-pressur Non-pressur Diagnosis Active 2018-04 Laura e chronic e chronic 0-10 [place] ulcer of ulcer of [id number] other part other part of right of right lower leg lower leg with fat with fat layer layer exposed exposed 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- Jean-Cla[place] mellitus mellitus [id number] with with diabetic diabetic peripheral peripheral angiopathy angiopathy without without gangrene gangrene 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 [place] cy cy [id number] (chronic) (chronic) (peripheral (peripheral ) ) 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-Claude 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 Heart Heart Diagnosis Active Laura failure, failure, [place]ude unspecified unspecified [id number] 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 pectoris pectoris Chronic 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 pulmonary [id number] disease, disease, unspecified unspecified Paroxysmal Paroxysmal Diagnosis Active Laura atrial atrial [place] fibrillatio fibrillatio [id number] n n Anxiety Anxiety Diagnosis Active Laura disorder, disorder, [place] unspecified unspecified [id number] Unspecified Unspecified Diagnosis Active Laura osteoarthri osteoarthri [place] tis, tis, [id number] unspecified unspecified site site Irritable Irritable Diagnosis Active Laura bowel 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 [id number] without without diarrhea diarrhea Benign Benign Diagnosis Active Laura prostatic prostatic [place] hyperplasia hyperplasia [id number] without without lower lower urinary urinary tract tract symptoms symptoms Sleep Sleep Diagnosis Active Laura apnea, apnea, [place] unspecified unspecified [id number] Tremor, Tremor, Diagnosis Active Laura unspecified unspecified [place] [id number] Hypothyroid Hypothyroid Diagnosis Active Laura ism, ism, [place] unspecified unspecified [id number] Hyperlipide Hyperlipide Diagnosis Active Laura clemente, clemente, Jean[place]Claude unspecified unspecified [id number] 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 Diagnosis Active Laura (current) (current) [place] use of use of [id number] insulin insulin 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 termite senior care Diagnosis Active Laura (current) (current) [place] use of use of [id number] anticoagula anticoagula nts nts 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 Diagnosis Active Laura (current) (current) [place] use of use of [id number] opiate opiate analgesic analgesic Presence of Presence of Diagnosis Active Laura coronary coronary [place]ude angioplasty angioplasty [id number] implant and implant and graft graft Personal Personal Diagnosis Active Laura history of history of [place] nicotine nicotine [id number] dependence dependence Pain frequent Pain Mgmt Resolve 2017-042018-05-08 Roselyn pain d 0-10 08:50:00 (Radha) 11:15: Weller 00 [id number] Cardio edema Cardiovasc Resolve 2017-042018-02-20 Roselyn ular d 0-10 09:50:00 (Radha) 11:15: [place] [id number] Respiratory dyspnea Respirator Resolve 2017-042018-02-15 Roselyn present y d 0-10 10:20:00 (Radha) 11:15: Weller [id number] Endo/Edgard glucose Endo/Edgard Resolve 2017-042018-03-20 Roselyn testing d 0-10 12:30:00 (Radha) dependence 11:15: [place] 00 [id number] Endo/Edgard knowledge/s Endo/Edgard Resolve 2017-042018-03-06 Roselyn kill d 0-10 09:30:00 (Radha) deficit: pt 11:15: [place] 00 [id number] Endo/Edgard anti-coagul Endo/Edgard Resolve 2017-042018-03-20 Roselyn ation d 0-10 12:30:00 (Radha) therapy 11:15: [place] 00 [id number] Endo/Edgard diabetic Endo/Edgard Resolve 2017-042018-03-06 Roselyn foot care d 0-10 09:30:00 (Radha) 11:15: [place] [id number] Sensory impaired Sensory Resolve 2017-042018-03-22 Roselyn hearing d 0-10 09:55:00 (Radha) 11:15: [place] [id number] Integument pressure Integument Resolve 2017-042018-08-21 Roselyn ulcer d 0-10 12:45:00 (Radha) present 11:15: [place] [id number] Integument skin Integument Resolve 2017-042018-03-03 Roselyn integrity d 0-10 09:19:00 (Radha) risk 11:15: [place] [id number] Integument surgical Integument Resolve 2017-042018-03-03 Quality wound d 0-10 09:19:00 Realtime7 present 11:15: 00 Integument other wound Integument Resolve 2017-042018-03-03 Quality present d 0-10 09:19:00 Realtime7 11:15: 00 Elimination urinary Eliminatio Resolve 2017-042018-03-20 Roselyn incontinenc n d 0-10 12:30:00 (Radha) e 11:15: [place] [id number] Neuro confusion Neuro/Emot Resolve 2017-042018-03-22 Roselyn present ion d 0-10 09:55:00 (Radha) 11:15: [place] [id number] Neuro anxiety Neuro/Emot Resolve 2017-042018-03-22 Roselyn present ion d 0-10 09:55:00 (Radha) 11:15: [facility] [id number] Neuro impaired Neuro/Emot Resolve 2017-042018-03-22 Roselyn decision-ma ion d 0-10 09:55:00 (Radah) pj 11:15: [place] [id number] Activity ADL Activity Resolve 2017-042018-03-22 Roselyn assistance d 0-10 09:55:00 (Radha) required 11:15: [place] [id number] Safety structural Safety Resolve 2017-042018-03-22 Roselyn barriers d 0-10 09:55:00 (Radha) present 11:15: [place] 00 [id number] Safety fall risk Safety Resolve 2017-042018-03-22 Roselyn factor d 0-10 09:55:00 (Radha) present 11:15: [place] 00 [id number] Safety risk for Safety Resolve 2017-042018-03-22 Roselyn hospitaliza d 0-10 09:55:00 (Radha) tion 11:15: [place] [id number] Safety can be left Safety Resolve 2017-042018-03-22 Roselyn alone for d 0-10 09:55:00 (Radha) only short 11:15: Weller periods 00 [id number] Medication oral med Meds Resolve 2017-042018-02-06 Roselyn assistance d 0-10 09:15:00 (Radha) required 11:15: [place] [id number] Medication injectable Meds Resolve 2017-042018-02-06 Roselyn med d 0-10 09:15:00 (Radha) assistance 11:15: [place] required 00 [id number] Medication knowledge/s Meds Resolve 2017-042018-02-15 Roselyn kill d 0-10 10:20:00 (Radha) deficit: pt 11:15: [facility] [id number] Medication potential Meds Resolve 2017-042018-02-15 Roselyn clinically d 0-10 10:20:00 (Radha) significant 11:15: Weller medication 00 [id number] issue Musculoskel transfer Musculoske Resolve 2017-042018-03-20 Roselyn etal assistance letal d 0-10 12:30:00 (Radha) required 11:15: [place] 00 [id number] Musculoskel requires Musculoske Resolve 2017-042018-03-20 Roselyn etal human letal d 0-10 12:30:00 (Radha) assist to 11:15: Weller leave home 00 [id number] Safety knowledge/s Safety Resolve 2017-042018-03-22 Laura kill d 0-12 09:55:00 Jean-Claude deficit: pt 10:00: [id number] 00 Respiratory knowledge/s Respirator Resolve 2017-042018-02-06 Laura kill y d 0-15 09:15:00 Jean[place]Cla[place] deficit: cg 10:00: [id number] 00 Respiratory lung sounds Respirator Resolve 2017-042018-02-06 Laura deficit y d 0-15 09:15:00 [place] 10:00: [id number] 00 Sensory impaired Sensory Resolve 2017-042018-03-22 Quality verbal d 0-17 09:55:00 Realtime7 communicati 18:36: on 42 Musculoskel knowledge/s Musculoske Resolve 2017-042018-03-03 Laura etal kill letal d 0-24 09:19:00 Jean[place]Claude deficit: cg 09:45: [id number] 00 Nutrition knowledge/s Nutrition Resolve 2017-042018-03-03 Laura kill d 0-26 09:19:00 Jean[place]Claude deficit: pt 09:15: [id number] 00 Nutrition nutritional Nutrition Resolve 2017-042018-03-03 Laura restriction d 0-26 09:19:00 Jean[place]Cla[place] s 09:15: [id number] 00 Elimination catheter Eliminatio Resolve 2017-042018-03-20 Laura present n d 0-26 12:30:00 Jean[place]Cla[place] 09:15: [id number] 00 Elimination constipatio Eliminatio Resolve 2017-042018-03-20 Laura n n d 0-26 12:30:00 Jean[place]Cla[place] 09:15: [id number] 00 Infection s/s of Infection Resolve 2017-042018-03-22 Laura infection d 0-31 09:55:00 Jean[place]Claude 09:30: [id number] 00 Endo/Edgard insulin Endo/Edgard Resolve 2017-042018-03-20 Laura admn d 04-22 12:30:00 [place] dependence 09:50: [id number] 00 Respiratory dyspnea Respirator Resolve 2017-042018-03-08 Laura present y d 04-24 09:20:00 Jean-Claude 10:07: [id number] 00 Safety cannot be Safety Resolve 2017-042018-03-22 Laura left alone d 04-24 09:55:00 Jean-Claude 10:07: [id number] 00 Cardio edema Cardiovasc Resolve 2017-042018-03-03 Laura ular d 04-26 09:19:00 Jean-Claude 09:51: [id number] 00 Respiratory Incentive Respirator Resolve 2017-042018-03-03 Laura Spirometer y d 04-26 09:19:00 [place] /Acapella 09:51: [id number] Device 00 treatments in home Endo/Edgard knowledge/s Endo/Edgard Resolve 2017-042018-03-20 Laura kill d 05-08 12:30:00 Jean[place]Claude deficit: pt 09:20: [id number] 00 Nutrition knowledge/s Nutrition Resolve 2017-042018-04-19 Laura kill d 05-08 09:45:00 [place] deficit: pt 09:20: [id number] 00 Nutrition nutritional Nutrition Resolve 2017-042018-04-19 Laura restriction d 05-08 09:45:00 Jean-Claude roe 09:20: [id number] 00 Endo/Edgard diabetic Endo/Edgard Resolve 2017-042018-03-20 Laura foot care d 05-14 12:30:00 Jean-Claude 09:20: [id number] 00 Pain frequent Pain Mgmt Unknown 2017-04 Laura pain 05-18 Jean-Claude 12:45: [id number] 00 Respiratory dyspnea Respirator Resolve 2017-042018-03-20 Laura present y d 05-18 12:30:00 [place]Claude 12:45: [id number] 00 Integument pressure Integument Unknown 2017-04 Laura ulcer 05-18 [place] present 12:45: [id number] 00 Integument surgical Integument Resolve 2017-042018-03-24 Laura wound d 05-18 11:23:00 Jean-Claude present 12:45: [id number] 00 Endo/Edgard diabetic Endo/Edgard Resolve 2017-042018-03-24 Laura foot care d 05-23 11:23:00 Jean-Claude 09:55: [id number] 00 Elimination catheter Eliminatio Resolve 2017-042018-04-19 Laura present n d 05-23 09:45:00 Jean-Claude 09:55: [id number] 00 Safety risk for Safety Resolve 2017-042018-04-19 Laura hospitaliza d 05-25 09:45:00 Jean-Claude tion 11:23: [id number] 00 Safety can be left Safety Resolve 2017-042018-04-19 Laura alone for d 05-25 09:45:00 Jean-Cluade only short 11:23: [id number] periods 00 Musculoskel knowledge/s Musculoske Resolve 2017-042018-03-29 Laura etal kill letal d 05-28 09:30:00 Jean-Claude deficit: cg 10:20: [id number] 00 Musculoskel requires Musculoske Resolve 2017-042018-04-12 Laura etal human letal d 05-28 09:45:00 Jean-Claude assist to 10:20: [id number] leave home 00 Endo/Edgard diabetic Endo/Edgard Resolve 2017-042018-04-19 Laura foot care d 05-30 09:45:00 Jean-Claude 09:30: [id number] 00 Elimination constipatio Eliminatio Resolve 2017-042018-04-12 Laura n n d 05-30 09:45:00 Jean-Claude 09:30: [id number] 00 Pain frequent Pain Mgmt Unknown 2017-04 Laura pain 06-06 Jean-Claude 09:45: [id number] 00 Endo/Edgard insulin Endo/Edgard Resolve 2017-042018-04-19 Laura admn d 06-06 09:45:00 Jean-Claude dependence 09:45: [id number] 00 Endo/Edgard anti-coagul Endo/Edgard Resolve 2017-042018-04-19 Laura ation d 06-06 09:45:00 Jean-Claude therapy 09:45: [id number] 00 Integument surgical Integument Resolve 2017-042018-04-05 Laura wound d 06-06 09:45:00 Jean-Claude present 09:45: [id number] 00 Integument skin Integument Resolve 2017-042018-04-05 Laura integrity d 06-06 09:45:00 Jean-Claude risk 09:45: [id number] 00 Integument pressure Integument Unknown 2017-04 Laura ulcer 06-06 [place] present 09:45: [id number] 00 Elimination UTI within Eliminatio Resolve 2017-042018-04-12 Laura past 14 n d 06-06 09:45:00 Jean-Claude days 09:45: [id number] 00 Activity ADL Activity Resolve 2017-042018-09-15 Laura assistance d 2- 10:35:00 [place] required 09:45: [id number] 00 Safety fall risk Safety Resolve 2017-042018-04-19 Laura factor d 2 09:45:00 Jean[place]Claude present 09:45: [id number] 00 Medication potential Meds Resolve 2017-042018-04-19 Laura clinically d 2 09:45:00 [place] significant 09:45: [id number] medication 00 issue Medication oral med Meds Resolve 2017-042018-04-05 Shari assistance d 06-06 09:45:00 Regeczi required 09:45: [id number] 00 Medication injectable Meds Resolve 2017-042018-08-09 Shari med d 06-06 09:20:00 Regeczi assistance 09:45: [id number] required 00 Musculoskel transfer Musculoske Resolve 2017-042018-04-12 Shari etal assistance letal d 06-06 09:45:00 Regeczi required 09:45: [id number] 00 Medication oral med Meds Resolve 2017-042018-04-19 Laura assistance d 2 09:45:00 Jean[place]Cla[place] required 10:00: [id number] 00 Medication injectable Meds Unknown 2017-04 Laura med 06-08 Jean[place]Claude assistance 10:00: [id number] required 00 Sensory impaired Sensory Resolve 2017-042018-04-19 Nima verbal d 2- 09:45:00 [place] communicati 15:20: [id number] on 00 Sensory impaired Sensory Resolve 2017-042018-04-19 Nima hearing d 2 09:45:00 [place] 15:20: [id number] 00 Medication injectable Meds Unknown 2017-04 Nhung med - Pérez assistance 14:56: [id number] required 00 Medication injectable Meds Unknown Nima med 04-13 [place] assistance 13:50: [id number] required 00 Elimination constipatio Eliminatio Resolve 2018-04-19 Laura jarvis n d 04-14 09:45:00 Jean-Claude 09:28: [id number] 00 Medication injectable Meds Unknown Laura med 04-17 Jean-Claude assistance 10:00: [id number] required 00 Medication injectable Meds Resolve 2018-04-19 Laura med d -09 09:45:00 [place] assistance 09:45: [id number] required 00 Endo/Edgard anti-coagul Endo/Edgard Resolve 2018-04-26 Laura ation d -11 10:15:00 Jean-Claude therapy 09:45: [id number] 00 Nutrition knowledge/s Nutrition Resolve 2018-04-26 Laura kill d 04-21 10:15:00 Jean-Claude deficit: pt 09:45: [id number] 00 Nutrition nutritional Nutrition Resolve 2018-04-26 Laura restriction d 04-21 10:15:00 Jean-Claude s 09:45: [id number] 00 Elimination catheter Eliminatio Resolve 2018-04-26 Laura present n d 04-21 10:15:00 Jean-Claude 09:45: [id number] 00 Elimination constipatio Eliminatio Resolve 2018-04-26 Laura n n d 04-21 10:15:00 Jean-Claude 09:45: [id number] 00 Safety risk for Safety Resolve 2018-04-26 Laura hospitaliza d 04-21 10:15:00 Jean-Claude tion 09:45: [id number] 00 Safety can be left Safety Resolve 2018-04-26 Laura alone for d 04-21 10:15:00 Jean-Claude only short 09:45: [id number] periods 00 Sensory impaired Sensory Resolve 2018-04-26 Nima verbal d 1-11 10:15:00 [place] communicati 14:30: [id number] on 00 Sensory impaired Sensory Resolve 2018-04-26 Nima hearing d 1-11 10:15:00 [place] 14:30: [id number] 00 Sensory impaired Sensory Resolve 2018-04-28 Nima verbal d 1-17 10:20:00 [place] communicati 12:45: [id number] on 00 Sensory impaired Sensory Resolve 2018-04-28 Nima hearing d 1-17 10:20:00 [place] 12:45: [id number] 00 Endo/Edgard anti-coagul Endo/Edgard Resolve 2018-05-24 Laura ation d 18 12:30:00 [place] therapy 10:20: [id number] 00 Safety risk for Safety Active Laura hospitaliza 1-18 Jean-Claude tion 10:20: [id number] 00 Safety can be left Safety Resolve 2018-05-10 Laura alone for d 1- 13:45:00 Jean-Claude only short 10:10: [id number] periods 00 Sensory impaired Sensory Resolve 2018-05-10 Jia hearing d 05-05 13:45:00 [place] 13:30: t 00 [id number] Sensory impaired Sensory Resolve 2018-05-10 Jia verbal d 05-05 13:45:00 Hillebrand communicati 13:30: t on [id number] Elimination catheter Eliminatio Resolve 2018-05-08 Wandy present n d 05-08 08:50:00 ,Kaylee 08:50: 00 Elimination constipatio Eliminatio Resolve 2018-06-28 Wandy n n d 05-08 09:45:00 ,Kaylee 08:50: 00 Safety cannot be Safety Resolve 2018-05-10 Laura left alone d 05-08 13:45:00 Jean-Claude 08:50: [id number] 00 Elimination catheter Eliminatio Resolve 2018-05-12 Shrai present n d 2 09:30:00 Regeczi 09:30: [id number] 00 Safety can be left Safety Resolve 2018-05-17 Laura alone for d 2- 10:00:00 Jean-Claude only short 09:30: [id number] Elimination urinary Eliminatio Resolve 2018-05-15 Laura incontinenc n d 2- 08:45:00 Jean-Claude e 08:45: [id number] 00 Pain frequent Pain Mgmt Resolve 2018-05-17 Laura pain d 2-06 10:00:00 Jean-Claude 10:00: [id number] 00 Respiratory lung sounds Respirator Resolve 2018-05-22 Laura deficit y d 2-06 10:44:00 Jean-Claude 10:00: [id number] 00 Integument pressure Integument Unknown Laura ulcer 2- [place] present 10:00: [id number] 00 Integument skin Integument Resolve 2018-05-17 Laura integrity d 2-06 10:00:00 Jean-Claude risk 10:00: [id number] 00 Integument surgical Integument Resolve 2018-05-17 Laura wound d 2-06 10:00:00 [place] present 10:00: [id number] 00 Activity ADL Activity Unknown Laura assistance 2- Jean-Claude required 10:00: [id number] 00 Activity self-care Activity Resolve 2018-05-19 Laura deficit d 2-06 11:15:00 Jean-Claude 10:00: [id number] 00 Safety fall risk Safety Resolve 2018-05-19 Laura factor d 2- 11:15:00 [place] present 10:00: [id number] 00 Elimination urinary Eliminatio Resolve 2018-05-24 [place] incontinenc n d 2-08 12:30:00 ,Kaylee e 11:15: 00 Safety can be left Safety Resolve 2018-05-24 Laura alone for d 2- 12:30:00 Jean-Claude only short 11:15: [id number] 00 Safety fall risk Safety Resolve 2018-05-24 Sonia White factor d 2-12 12:30:00 present 09:48: 41 Endo/Edgard glucose Endo/Edgard Resolve 2018-05-24 Laura tolerance d 2-13 12:30:00 [place] problem 12:30: [id number] 00 Respiratory Incentive Respirator Resolve 2018-06-07 Laura Spirometer y d 2-15 12:00:00 [place] /Acapella 13:40: [id number] Device 00 treatments in home Endo/Edgard anti-coagul Endo/Edgard Resolve 2018-06-12 Laura ation d 2-15 09:30:00 [place] therapy 13:40: [id number] 00 Elimination urinary Eliminatio Resolve 2018-05-26 Laura incontinenc n d 2-15 13:40:00 Jean[place]Cla[place] e 13:40: [id number] 00 Safety can be left Safety Resolve 2018-06-07 Laura alone for d 2-15 12:00:00 Jean-Claude only short 13:40: [id number] periods 00 Endo/Edgard glucose Endo/Edgard Resolve 2018-06-07 Cherrise tolerance d 06-02 12:00:00 Trixie problem 10:15: [id number] 00 Endo/Edgard insulin Endo/Edgard Resolve 2018-06-12 Cherrise admn d 06-02 09:30:00 [place] dependence 10:15: [id number] 00 Endo/Edgard glucose Endo/Edgard Resolve 2018-06-12 Cherrise testing d 06-02 09:30:00 [place] dependence 10:15: [id number] 00 Safety fall risk Safety Resolve 2018-06-07 Cherrise factor d 06-02 12:00:00 [place] present 10:15: [id number] 00 Musculoskel transfer Musculoske Active Cherrise etal assistance letal 06-02 Trixie required 10:15: [id number] 00 Musculoskel requires Musculoske Active Cherrise etal human letal 06-02 Trixie assist to 10:15: [id number] leave home 00 Elimination urinary Eliminatio Resolve 2018-06-07 Laura incontinenc n d 06-05 12:00:00 Jean-Claude e 12:30: [id number] 00 Activity self-care Activity Resolve 2018-08-14 Laura deficit d 06-05 12:10:00 Jean-Claude 12:30: [id number] 00 Elimination urinary Eliminatio Resolve 2018-06-12 Laura incontinenc n d 06-09 09:30:00 Jean-Cla[place] e 09:13: [id number] 00 Safety can be left Safety Resolve 2018-06-12 Laura alone for d 06-09 09:30:00 Jean-Claude only short 09:13: [id number] periods 00 Respiratory Incentive Respirator Resolve 2018-06-14 Laura Spirometer y d 06-12 09:30:00 Jean-Claude /Acapella 09:30: [id number] Device 00 treatments in home Endo/Edgard anti-coagul Endo/Edgard Resolve 2018-06-30 Laura ation d 06-14 09:19:00 Jean-Claude therapy 09:30: [id number] 00 Safety can be left Safety Resolve 2018-06-30 Laura alone for d 3- 09:19:00 Jean[place]Cla[place] only short 09:30: [id number] periods 00 Elimination urinary Eliminatio Resolve 2018-06-19 Laura incontinenc n d 3-08 13:45:00 [place] e 09:45: [id number] 00 Elimination urinary Eliminatio Resolve 2018-06-28 Laura incontinenc n d 3- 09:45:00 [place] e 13:15: [id number] 00 Elimination constipatio Eliminatio Resolve 2018-07-14 Laura n n d 3 09:20:00 Jean[place]Cla[place] 09:19: [id number] 00 Endo/Edgard anti-coagul Endo/Edgard Resolve 2018-07-14 Laura ation d 3 09:20:00 Jean[place]Cla[place] therapy 12:49: [id number] 00 Elimination urinary Eliminatio Resolve 2018-07-14 Laura incontinenc n d 07-03 09:20:00 Jean-Cla[place] e 12:49: [id number] 00 Safety can be left Safety Resolve 2018-08-18 Laura alone for d 3- 12:05:00 Jean-Claude only short 12:50: [id number] periods 00 Endo/Edgard glucose Endo/Edgard Resolve 2018-07-14 Shi testing d 07-10 09:20:00 Sorin, dependence 12:30: [id number] 00 Pain frequent Pain Mgmt Resolve 2018-07-14 Laura pain d 4 09:20:00 Jean-Claude 09:20: [id number] 00 Integument surgical Integument Resolve 2018-08-13 Laura wound d 4-05 12:50:00 [place] present 09:20: [id number] 00 Integument skin Integument Resolve 2018-08-13 Laura integrity d 4-05 12:50:00 Jean-Claude risk 09:20: [id number] 00 Safety fall risk Safety Resolve 2018-08-18 Laura factor d 4-05 12:05:00 [place] present 09:20: [id number] 00 Endo/Edgard anti-coagul Endo/Edgard Resolve 2018-08-14 Laura ation d 07-17 12:10:00 [place] therapy 13:00: [id number] 00 Elimination urinary Eliminatio Resolve 2018-07-21 Laura incontinenc n d 07-17 09:25:00 [place] e 13:00: [id number] 00 Activity ADL Activity Unknown Laura assistance 07-17 Jean-Claude required 13:00: [id number] 00 Elimination urinary Eliminatio Resolve 2018-08-14 Laura incontinenc n d 07-24 12:10:00 Jean-Claude e 09:27: [id number] 00 Pain frequent Pain Mgmt Resolve 2018 Laura pain d 08-07 09:20:00 Jean-Cla[place] 12:45: [id number] 00 Cardio edema Cardiovasc Resolve 2018 Laura ular d 08-07 09:20:00 Jean-Claude 12:45: [id number] 00 Respiratory dyspnea Respirator Resolve 2018 Laura present y d 08-07 09:20:00 Jean-Claude 12:45: [id number] 00 Endo/Edgard diabetic Endo/Edgard Resolve 2018-08-14 Laura foot care d 08-07 12:10:00 Jean-Claude 12:45: [id number] 00 Nutrition knowledge/s Nutrition Active Laura kill 08-07 Jean-Claude deficit: pt 12:45: [id number] 00 Nutrition nutritional Nutrition Active Laura restriction 08-07 Jean-Claude s 12:45: [id number] 00 Neuro confusion Neuro/Emot Resolve 2018-08-14 Laura present ion d 08-07 12:10:00 Jean-Claude 12:45: [id number] 00 Medication oral med Meds Resolve 2018 Laura assistance d 08-07 09:20:00 Jean[place]Claude required 12:45: [id number] 00 Medication injectable Meds Resolve 2018 Jia med d 08-07 09:20:00 Jerardo assistance 12:45: [id number] required 00 Cardio edema Cardiovasc Resolve 2018-08-23 Lauar ular d 08-13 11:15:00 [place] 12:50: [id number] 00 Respiratory dyspnea Respirator Resolve 2018-08-14 Laura present y d 08-13 12:10:00 Jean-Claude 12:50: [id number] 00 Endo/Edgard anti-coagul Endo/Edgard Resolve 2018-08-28 Laura ation d 08-16 12:00:00 [place] therapy 12:15: [id number] 00 Elimination urinary Eliminatio Resolve 2018-08-21 Laura incontinenc n d 08-16 12:45:00 [place] e 12:15: [id number] 00 Sensory impaired Sensory Resolve 2018-08-21 Krystyna verbal d 08-17 12:45:00 [place] communicati 14:30: [id number] on 00 Sensory impaired Sensory Resolve 2018-08-21 Krystyna hearing d 08-17 12:45:00 [place] 14:30: [id number] 00 Social financial LILLIAN: Resolve 2019-02-16 Krystyna Services resource Social d 08-17 13:45:00 [place] deficit Services 14:30: [id number] 00 Social knowledge/s LILLIAN: Resolve 2018-08-17 Krystyna Services kill Social d 08-17 14:30:00 [place] deficit - Services 14:30: [id number] pt 00 Social knowledge/s LILLIAN: Resolve 2018-08-17 Krystyna Services kill Social d 08-17 14:30:00 [place] deficit - Services 14:30: [id number] cg 00 Safety can be left Safety Resolve 2018-09-07 Laura alone for d 08-23 10:00:00 Jean-Claude only short 11:15: [id number] periods 00 Social knowledge/s LILLIAN: Active Laura Services kill Social 08-23 [place] deficit - Services 11:15: [id number] pt 00 Elimination urinary Eliminatio Resolve 2018-09-07 Laura incontinenc n d 08-25 10:00:00 Jean-Claude e 11:45: [id number] 00 Sensory impaired Sensory Resolve 2018-09-07 Krystyna verbal d 09-01 10:00:00 [place] communicati 14:45: [id number] on 00 Sensory impaired Sensory Resolve 2018-09-07 Krystyna hearing d 09-01 [facility] [id number] 00 Social knowledge/s LILLIAN: Active Krystyna Services kill Social 09-01 [facility] deficit - Services 14:45: [id number] cg 00 Respiratory dyspnea Respirator Resolve 2018-09-15 Laura present y d 09-07 10:35:00 Jean[place]Claude 10:00: [id number] 00 Pain frequent Pain Mgmt Resolve 2018-09-11 Laura pain d 09-11 11:50:00 Jean[place]Claude 11:50: [id number] 00 Cardio hypertensio Cardiovasc Resolve 2018-09-11 Laura n ular d 09-11 11:50:00 Jean[place]Claude 11:50: [id number] 00 Integument pressure Integument Resolve 2018-09-15 Laura ulcer d 09-11 10:35:00 Jean-Claude present 11:50: [id number] 00 Integument surgical Integument Resolve 2018-09-15 Laura wound d 09-11 10:35:00 [place] present 11:50: [id number] 00 Integument skin Integument Resolve 2018-09-15 Laura integrity d 09-11 10:35:00 Jean-Claude risk 11:50: [id number] 00 Elimination urinary Eliminatio Resolve 2018-09-11 Laura incontinenc n d 09-11 11:50:00 [place] e 11:50: [id number] 00 Activity ADL Activity Unknown Laura assistance 09-11 Jean-Claude required 11:50: [id number] 00 Activity self-care Activity Resolve 2018-09-15 Laura deficit d 09-11 10:35:00 [place] 11:50: [id number] 00 Safety fall risk Safety Resolve 2018-09-15 Laura factor d 09-11 10:35:00 Jean[place]Cla[place] present 11:50: [id number] 00 Safety can be left Safety Resolve 2018-09-15 Laura alone for d 09-11 10:35:00 Jean[place]Claude only short 11:50: [id number] periods 00 Endo/Edgard anti-coagul Endo/Edgard Resolve 2018-09-18 Laura ation d 6-07 12:20:00 [place] therapy 10:35: [id number] 00 Elimination urinary Eliminatio Resolve 2018-09-18 Laura incontinenc n d 09-15 12:20:00 Jean[place]Cla[place] e 10:35: [id number] 00 Elimination constipatio Eliminatio Resolve 2018-09-18 Laura n n d 09-15 12:20:00 Jean[place]Claude 10:35: [id number] 00 Safety can be left Safety Resolve 2018-09-25 Laura alone for d 09-18 11:45:00 Jean[place]Cla[place] only short 12:20: [id number] periods 00 Cardio hypertensio Cardiovasc Resolve 2018-09-21 Laura n ular d 09-21 11:45:00 Jean[place]Cla[place] 11:45: [id number] 00 Endo/Edgard anti-coagul Endo/Edgard Resolve 2018-09-25 Laura ation d 09-21 11:45:00 Jean[place]Cla[place] therapy 11:45: [id number] 00 Cardio hypertensio Cardiovasc Resolve 2018-10-02 Laura n ular d 09-25 12:05:00 Jean[place]Cla[place] 11:45: [id number] 00 Elimination urinary Eliminatio Resolve 2018-10-02 Laura incontinenc n d 09-25 12:05:00 Jean-Claude e 11:45: [id number] 00 Endo/Edgard anti-coagul Endo/Edgard Resolve 2018-10-02 Laura ation d 09-29 12:05:00 Jean[place]Cla[place] therapy 09:45: [id number] 00 Safety can be left Safety Resolve 2018-10-02 Laura alone for d 09-29 12:05:00 Jean[place]Cla[place] only short 09:45: [id number] periods 00 Endo/Edgard anti-coagul Endo/Edgard Resolve 2018-10-27 Laura ation d 10-04 11:30:00 Jean-Claude therapy 10:10: [id number] 00 Elimination urinary Eliminatio Resolve 2018-10-06 Laura incontinenc n d 10-04 09:10:00 Jean-Claude e 10:10: [id number] 00 Elimination constipatio Eliminatio Resolve 2018-10-06 Laura n n d 10-04 09:10:00 Jean-Claude 10:10: [id number] 00 Safety can be left Safety Resolve 2018-10-06 Laura alone for d 10-04 09:10:00 Jean[place]Claude only short 10:10: [id number] periods 00 Sensory impaired Sensory Resolve 2018-10-23 Krystyna verbal d 6 11:56:00 [place] communicati 15:00: [id number] on 00 Sensory impaired Sensory Resolve 2018-10-23 Krystyna hearing d 10-05 11:56:00 [place] 15:00: [id number] 00 Elimination urinary Eliminatio Resolve 2018-10-27 Laura incontinenc n d 10-09 11:30:00 Jean-Claude e 12:15: [id number] 00 Elimination bloody Eliminatio Resolve 2018-10-27 Laura urine n d 10-09 11:30:00 Jean-Claude 12:15: [id number] 00 Safety can be left Safety Resolve 2018-10-23 Laura alone for d 10-09 11:56:00 Jean[place]Claude only short 12:15: [id number] Elimination constipatio Eliminatio Resolve 2018-12-08 Laura n n d 10-16 14:00:00 Jean-Claude 12:35: [id number] 00 Cardio edema Cardiovasc Resolve 2018-10-27 Laura ular d 10-20 11:30:00 Jean-Claude 11:35: [id number] 00 Endo/Edgard knowledge/s Endo/Edgard Resolve 2018-10-27 Laura kill d 10-20 11:30:00 Jean-Claude deficit: pt 11:35: [id number] 00 Sensory impaired Sensory Unknown Jonatan verbal 7-15 Demarco, communicati 13:30: PT on [id number] Sensory impaired Sensory Unknown Jonatan hearing 7-15 Demarco, 13:30: PT 00 [id number] Safety can be left Safety Resolve 2018-10-27 Laura alone for d 7- 11:30:00 Jean-Claude only short 10:35: [id number] periods 00 Endo/Edgard glucose Endo/Edgard Resolve 2018-12-11 Cherrise tolerance d 10-30 09:30:00 Trixie problem 11:55: [id number] 00 Endo/Edgard insulin Endo/Edgard Resolve 2018-12-13 Cherrise admn d 10-30 11:10:00 [place] dependence 11:55: [id number] 00 Endo/Edgard glucose Endo/Edgard Resolve 2018-12-13 Cherrise testing d 10-30 11:10:00 [place] dependence 11:55: [id number] 00 Endo/Edgard knowledge/s Endo/Edgard Resolve 2018-12-08 Cherrise kill d 10-30 14:00:00 [place] deficit: pt 11:55: [id number] 00 Elimination urinary Eliminatio Resolve 2018-12-08 Cherrise urgency n d 10-30 14:00:00 Trixie 11:55: [id number] 00 Neuro depressive Neuro/Emot Resolve 2018-12-08 Cherrise feelings ion d 10-30 14:00:00 [place] present 11:55: [id number] 00 Neuro impaired Neuro/Emot Resolve 2018-12-08 Cherrise decision-ma ion d 10-30 14:00:00 [place] pj 11:55: [id number] 00 Safety fall risk Safety Resolve 2018-12-06 Cherrise factor d 10-30 13:05:00 [place] present 11:55: [id number] 00 Endo/Edgard anti-coagul Endo/Edgard Resolve 2018-12-13 Shi ation d 11-01 11:10:00 Sorin, therapy 12:30: [id number] 00 Respiratory Incentive Respirator Resolve 2018-11-29 Cherrise Spirometer y d 11-03 10:15:00 Trixie /Acapella 10:25: [id number] Device 00 treatments in home Elimination urinary Eliminatio Resolve 2018-12-08 Cherrise frequency n d 11-03 14:00:00 [place] 10:25: [id number] 00 Respiratory lung sounds Respirator Resolve 2018-11-29 Cherrise deficit y d 11-06 10:15:00 Trixie 12:05: [id number] 00 Neuro memory Neuro/Emot Resolve 2018-12-08 Cherrise deficit ion d 7-31 14:00:00 [place] needing 10:30: [id number] supervision 00 Pain frequent Pain Mgmt Resolve 2018-12-06 Shi pain d 11-10 13:05:00 Sorin, 11:00: [id number] 00 Integument pressure Integument Active Shi ulcer 11-10 Sorin, present 11:00: [id number] 00 Integument surgical Integument Active Shi wound 11-10 Sorin, present 11:00: [id number] 00 Integument skin Integument Active Shi integrity 11-10 Sorin, risk 11:00: [id number] 00 Elimination urinary Eliminatio Resolve 2018-12-08 Sih incontinenc n d 11-10 14:00:00 Sorin, e 11:00: [id number] 00 Activity self-care Activity Resolve 2018-11-29 Shi deficit d 11-10 10:15:00 Sorin, 11:00: [id number] 00 Activity ADL Activity Resolve 2018-12-08 Shi assistance d 11-10 14:00:00 Sorin, required 11:00: [id number] 00 Pain knowledge/s Pain Mgmt Resolve 2018-12-06 Krystyna kill d 11-16 13:05:00 [place] deficit: cg 15:15: [id number] 00 Respiratory knowledge/s Respirator Resolve 2018-11-29 Krystyna kill y d 11-16 10:15:00 [place] deficit: cg 15:15: [id number] 00 Integument knowledge/s Integument Active 2018- Krystyna kill 11-16 [place] deficit: cg 15:15: [id number] 00 Elimination knowledge/s Eliminatio Resolve 2018-12-08 Krystyna kill n d 11-16 14:00:00 [place] deficit: cg 15:15: [id number] 00 Safety knowledge/s Safety Resolve 2018-12-06 Krystyna kill d 11-16 13:05:00 [place] deficit: cg 15:15: [id number] 00 Cardio hypertensio Cardiovasc Resolve 2018-11-29 Lenny ruiz d 11-17 10:15:00 Trixie 10:45: [id number] 00 Safety can be left Safety Resolve 2018-12-08 Shi alone for d 11-22 14:00:00 nancy Rowell 11:00: [id number] periods 00 Sensory impaired Sensory Resolve 2018-12-08 Laura verbal d 11-24 14:00:00 Jean-Claude communicati 09:30: [id number] on Sensory impaired Sensory Resolve 2018-12-08 Laura hearing d 11-24 14:00:00 [place] 09:30: [id number] 00 Respiratory knowledge/s Respirator Resolve 2018-12-08 Laura kill y d 12-01 14:00:00 [place] deficit: cg 09:30: [id number] 00 Sensory impaired Sensory Unknown Krystyna verbal 12-08 [place] communicati 15:00: [id number] on Sensory impaired Sensory Unknown Krystyna hearing 12-08 [place] 15:00: [id number] 00 Respiratory knowledge/s Respirator Resolve 2018-12-13 Laura kill y d 12-11 11:10:00 [place] deficit: cg 09:30: [id number] 00 Endo/Edgard knowledge/s Endo/Edgard Resolve 2018-12-13 Laura kill d 12-11 11:10:00 [place] deficit: pt 09:30: [id number] 00 Elimination urinary Eliminatio Resolve 2018-12-15 Laura incontinenc n d 12-11 13:10:00 Jean-Claude e 09:30: [id number] 00 Safety can be left Safety Resolve 2018-12-15 Laura alone for d 12-11 13:10:00 Jean-Claude only short 09:30: [id number] 00 Endo/Edgard knowledge/s Endo/Edgard Resolve 2019-01-05 Laura kill d 12-15 11:00:00 [place] deficit: pt 13:10: [id number] 00 Endo/Edgard anti-coagul Endo/Edgard Resolve 2019-01-05 Laura ation d 12-15 11:00:00 Jean-Claude therapy 13:10: [id number] 00 Elimination urinary Eliminatio Resolve 2018-12-27 Laura incontinenc n d 12-18 09:20:00 Jean-Claude e 12:10: [id number] 00 Safety can be left Safety Resolve 2019-01-05 Laura alone for d 12-18 11:00:00 Jean-Claude only short 12:10: [id number] periods 00 Elimination constipatio Eliminatio Resolve 2019-01-05 Laura n n d 12-20 11:00:00 Jean-Claude 12:15: [id number] 00 Pain frequent Pain Mgmt Resolve 2019-01-15 Laura pain d 12-27 12:30:00 Jean-Claude 09:20: [id number] 00 Respiratory dyspnea Respirator Resolve 2019-01-05 Laura present y d 12-27 11:00:00 Jean-Claude 09:20: [id number] 00 Endo/Edgard diabetic Endo/Edgard Resolve 2019-01-05 Laura foot care d 12-27 11:00:00 Jean-Claude 09:20: [id number] 00 Elimination diarrhea Eliminatio Resolve 2019-01-05 Laura n d 12-27 11:00:00 Jean-Claude 09:20: [id number] 00 Neuro confusion Neuro/Emot Resolve 2019-01-05 Laura present ion d 12-27 11:00:00 Jean-Claude 09:20: [id number] 00 Neuro anxiety Neuro/Emot Resolve 2019-01-05 Laura present ion d 12-27 11:00:00 Jean-Claude 09:20: [id number] 00 Activity ADL Activity Resolve 2019-01-05 Laura assistance d 12-27 11:00:00 Jean-Claude required 09:20: [id number] 00 Activity self-care Activity Resolve 2019-01-05 Laura deficit d 12-27 11:00:00 Jean-Claude 09:20: [id number] 00 Safety fall risk Safety Resolve 2019-01-05 Laura factor d 9-18 11:00:00 [place] present 09:20: [id number] 00 Medication potential Meds Resolve 2019-01-05 Laura clinically d 9-18 11:00:00 [place] significant 09:20: [id number] medication 00 issue Elimination urinary Eliminatio Resolve 2019-01-05 Laura incontinenc n d 920 11:00:00 [place] e 11:20: [id number] 00 Endo/Edgard knowledge/s Endo/Edgard Resolve 2019-01-10 Laura kill d 01-08 10:00:00 Jean-Claude deficit: pt 11:30: [id number] 00 Endo/Edgard anti-coagul Endo/Edgard Resolve 2019-01-10 Laura ation d 01-08 10:00:00 Jean-Claude therapy 11:30: [id number] 00 Elimination urinary Eliminatio Resolve 2019-01-15 Laura incontinenc n d 01-08 12:30:00 Jean-Claude e 11:30: [id number] 00 Safety can be left Safety Resolve 2019-02-16 Laura alone for d 01-08 12:00:00 Jean-Claude only short 11:30: [id number] periods 00 Respiratory dyspnea Respirator Resolve 2018-042019-01-26 Laura present y d 0-02 10:00:00 Jean-Claude 10:00: [id number] 00 Activity ADL Activity Resolve 2018-042019-01-12 Laura assistance d 0-02 11:30:00 [place] required 10:00: [id number] 00 Activity self-care Activity Resolve 2018-042019-01-12 Laura deficit d 0-02 11:30:00 Jean-Claude 10:00: [id number] 00 Safety fall risk Safety Resolve 2018-042019-01-12 Laura factor d 0-02 11:30:00 Jean-Claude present 10:00: [id number] 00 Medication injectable Meds Resolve 2018-042019-01-17 Laura med d 0-02 09:45:00 [place] assistance 10:00: [id number] required 00 Endo/Edgard knowledge/s Endo/Edgard Resolve 2018-042019-01-15 Laura kill d 0-04 12:30:00 Jean-Claude deficit: pt 11:30: [id number] 00 Endo/Edgard anti-coagul Endo/Edgard Resolve 2018-042019-01-15 Laura ation d 0-04 12:30:00 [place] therapy 11:30: [id number] 00 Elimination constipatio Eliminatio Resolve 2018-042019-01-15 Laura n n d 0-04 12:30:00 [place] 11:30: [id number] 00 Sensory impaired Sensory Resolve 2018-042019-01-15 Krystyna verbal d 0-04 12:30:00 [place] communicati 15:30: [id number] on 00 Sensory impaired Sensory Resolve 2018-042019-01-15 Krystyna hearing d 0-04 12:30:00 [place] 15:30: [id number] 00 Infection s/s of Infection Resolve 2018-042019-03-09 Laura infection d 0-07 11:00:00 [place] 12:30: [id number] 00 Sensory impaired Sensory Resolve 2018-042019-01-22 Jonatan verbal d 0-08 11:00:00 ambrosio Pal 13:00: PT on [id number] Sensory impaired Sensory Resolve 2018-042019-01-22 Jonatan hearing d 0-08 11:00:00 Demarco, 13:00: PT 00 080571-6 Endo/Edgard knowledge/s Endo/Edgard Resolve 2018-042019-02-07 Laura kill d 0-09 11:20:00 [place] deficit: pt 09:45: [id number] 00 Endo/Edgard anti-coagul Endo/Edgard Resolve 2018-042019-02-07 Laura ation d 0-09 11:20:00 Jean-Claude therapy 09:45: [id number] 00 Elimination urinary Eliminatio Resolve 2018-042019-02-02 Laura incontinenc n d 0-09 11:30:00 Jean-Claude e 09:45: [id number] 00 Elimination constipatio Eliminatio Resolve 2018-042019-02-02 Laura n n d 0-16 11:30:00 [place] 10:00: [id number] 00 Sensory impaired Sensory Resolve 2018-042019-01-31 Jonatan verbal d 0-17 11:10:00 ambrosio Pal 15:00: PT on [id number] Sensory impaired Sensory Resolve 2019-1 2019-01-31 Jonatan hearing d 0-17 11:10:00 Demarco, 15:00: PT 00 [id number] Pain frequent Pain Mgmt Resolve 2018-042019-02-16 Jonatan pain d 0-23 12:00:00 Demarco, 13:00: PT 00 760509-2 Sensory impaired Sensory Unknown 2018-04 Jonatan verbal 0-23 Demarco, communicati 13:00: PT on 00 [id number] Sensory impaired Sensory Unknown 2018-04 Jonatan hearing 0-23 Demarco, 13:00: PT 00 [id number] Respiratory dyspnea Respirator Resolve 2018-042019-02-07 Laura present y d 0-25 11:20:00 [place] 11:30: [id number] 00 Elimination urinary Eliminatio Resolve 2018-042019-02-07 Laura incontinenc n d 0-28 11:20:00 [place] e 12:40: [id number] 00 Endo/Edgard knowledge/s Endo/Edgard Resolve 2018-042019-02-19 Laura kill d 04-11 12:40:00 Jean-Cla[place] deficit: pt 12:30: [id number] 00 Endo/Edgard anti-coagul Endo/Edgard Resolve 2018-042019-02-19 Laura ation d 04-11 12:40:00 [place] therapy 12:30: [id number] 00 Elimination urinary Eliminatio Resolve 2018-042019-02-16 Laura incontinenc n d 04-11 12:00:00 Jean-Claude e 12:30: [id number] 00 Medication potential Meds Resolve 2018-042019-02-24 Laura clinically d 1 09:45:00 Jean-Claude significant 12:20: [id number] medication 00 issue Elimination constipatio Eliminatio Resolve 2018-042019-02-16 Laura n n d 04-16 12:00:00 [place] 11:20: [id number] 00 Elimination urinary Eliminatio Resolve 2018-042019-02-24 Laura incontinenc n d 04-21 09:45:00 [place] e 12:40: [id number] 00 Safety can be left Safety Resolve 2018-042019-02-24 Laura alone for d 04-21 09:45:00 Jean-Claude only short 12:40: [id number] periods 00 Endo/Edgard knowledge/s Endo/Edgard Resolve 2018-042019-02-24 Laura kill d 1-13 09:45:00 [place] deficit: pt 12:05: [id number] 00 Endo/Edgard anti-coagul Endo/Edgard Resolve 2018-042019-02-24 Laura ation d 1- 09:45:00 Jean-Claude therapy 12:05: [id number] 00 Sensory impaired Sensory Resolve 2018-042019-02-26 Laura verbal d 04-26 13:20:00 Jean-Claude communicati 09:45: [id number] on 00 Sensory impaired Sensory Resolve 2018-042019-02-26 Laura hearing d 16 13:20:00 Jean-Claude 09:45: [id number] 00 Endo/Edgard knowledge/s Endo/Edgard Resolve 2018-042019-02-28 Laura kill d 04-28 11:15:00 Jean-Cla[place] deficit: pt 13:20: [id number] 00 Endo/Edgard anti-coagul Endo/Edgard Resolve 2018-042019-02-28 Laura ation d 04-28 11:15:00 [place] therapy 13:20: [id number] 00 Elimination urinary Eliminatio Resolve 2018-042019-03-09 Laura incontinenc n d 04-28 11:00:00 Jean-Claude e 13:20: [id number] 00 Safety can be left Safety Resolve 2018-042019-03-05 Laura alone for d 04-28 12:45:00 [place] only short 13:20: [id number] periods 00 Endo/Edgard knowledge/s Endo/Edgard Resolve 2018-042019-03-09 Laura kill d 05-05 11:00:00 [place] deficit: pt 12:45: [id number] 00 Endo/Edgard anti-coagul Endo/Edgard Resolve 2018-042019-03-09 Laura ation d 05-05 11:00:00 [place] therapy 12:45: [id number] 00 Safety can be left Safety Resolve 2018-042019-03-09 Laura alone for d 05-07 11:00:00 Jean-Claude only short 11:25: [id number] periods 00 Sensory impaired Sensory Resolve 2018-042019-03-12 Krystyna verbal d 05-09 11:15:00 Kendrickunstein communicati 12:00: [id number] on 00 Sensory impaired Sensory Resolve 2018-042019-03-12 Krystyna hearing d 05-09 11:15:00 [facility] 12:00: [id number] 00 Social financial LILLIAN: Active 2018-04 Krystyna Services resource Social 05-09 [facility] deficit Services 12:00: [id number] 00 Respiratory dyspnea Respirator Resolve 2018-042019-03-14 Laura present y d 05-13 10:30:00 Jean-Claude 11:15: [id number] 00 Endo/Edgard knowledge/s Endo/Edgard Resolve 2018-042019-04-02 Laura kill d 05-13 11:45:00 Jean-Cla[place] deficit: pt 11:15: [id number] 00 Endo/Edgard anti-coagul Endo/Edgard Resolve 2018-042019-04-02 Laura ation d 05-13 11:45:00 [place] therapy 11:15: [id number] 00 Elimination urinary Eliminatio Resolve 2018-042019-03-14 Laura incontinenc n d 05-13 10:30:00 Jean-Claude e 11:15: [id number] 00 Activity ADL Activity Resolve 2018-042019-03-14 Laura assistance d 05-13 10:30:00 [place] required 11:15: [id number] 00 Activity self-care Activity Resolve 2018-042019-03-14 Laura deficit d 05-13 10:30:00 Jean-Claude 11:15: [id number] 00 Safety fall risk Safety Resolve 2018-042019-03-14 Laura factor d 05-13 10:30:00 Jean-Claude present 11:15: [id number] 00 Safety can be left Safety Resolve 2018-042019-03-14 Laura alone for d 05-13 10:30:00 Jean-Cla[place] only short 11:15: [id number] periods 00 Medication injectable Meds Resolve 2018-042019-03-12 Laura med d 05-13 11:15:00 [place] assistance 11:15: [id number] required 00 Safety can be left Safety Resolve 2018-042019-03-19 Laura alone for d 05-17 11:40:00 Jean-Claude only short 09:15: [id number] periods 00 Elimination urinary Eliminatio Resolve 2018-042019-03-30 Laura incontinenc n d 05-20 10:45:00 [place] e 11:40: [id number] 00 Safety can be left Safety Resolve 2018-042019-03-26 Laura alone for d 2-11 11:00:00 [place] only short 11:30: [id number] Safety can be left Safety Resolve 2018-042019-03-30 Laura alone for d 2-18 10:45:00 Jean-Claude only short 10:30: 00 Elimination urinary Eliminatio Active 2018-04 Laura incontinenc n 2-23 [place] e 11:45: Safety can be left Safety Active 2018-04 Laura alone for 2-23 [place] only short 11:45: [id number] 00 Allergies, Adverse Reactions, Alerts Allergy Name Allergy Status Severity Reaction(s) Onset Inactive Treating Comments Type Date Date Clinician bananas Unknown Active Unknown Reaction 2017-04 Roselyn Unknown 0-10 (Radha) Nithin [id number] keflex Unknown Active Unknown Reaction 2017-04 Roselyn Unknown 0-10 (Radha) Nithin [id number] nuts Unknown Active Unknown Reaction 2017-04 Roselyn Unknown 0-10 (Radha) Nithin [id number] Cipro Medication Active Unknown Reaction 2017-04 Sonia White Name ID Unknown 0-10 metronidazol Base Active Unknown Nausea and 2017-04 Roselyn e Ingredient vomiting 2-20 Guidelli [id number] Medications Ordered Filled Start Stop Current Ordering [...] No Shallish 1 puff Unknown 20 20 ,Jamie mcg-albuter mcg-albuter ol 100 ol 100 mcg/actuati mcg/actuati on mist for on mist for inhalation inhalation Lantus Lantus No Shallish 38 Unknown Aislinnostar Jamie Michelle MD units U-100 U-100 Insulin 100 Insulin 100 unit/mL (3 unit/mL (3 mL) mL) subcutaneou subcutaneou s pen s pen acetaminoph acetaminoph No Shallish 2 tabs Unknown en 325 mg en 325 mg ,Jamie tablet tablet Rapaflo 8 Rapaflo 8 2017-04 2019- No Shallish Unknown Unknown mg capsule mg capsule 0-10 -28 MDJamie Klor-Con Klor-Con No Shallish 1 Unknown M20 [...] Unknown rine 10 mg rine 10 mg ,Jamie tablet tablet tablet Refresh Refresh No Shallish [...] nded nded release release loperamide loperamide No Dike 1-2 Unknown 2 mg tablet 2 mg tablet Latanya DAVID T tabs ( 2 tabs after 1st loose stool, then 1 tab up to 4 tabs/da y) clotrimazol clotrimazol No Shallish 1 tab Unknown e 10 mg e 10 mg Jamie DAVID dissolv dutch dutch e in mouth docusate docusate 2017-04 No Shallish Unknown Unknown sodium 100 sodium 100 0-10 ,Jamie mg capsule mg capsule cyclobenzap cyclobenzap 2017-04 No Shallish Unknown Unknown rine 10 mg rine 10 mg 0-10 ,Jamie tablet tablet oxyCODONE oxyCODONE 2017-04 No Shallish [...] mg 0-10 MD,Jamie tablet tablet Glucosamine Glucosamine 2017-04- No Shallish Unknown Unknown Chondroitin Chondroitin 0-10 [...] MD,Jamie oral powder oral powder sulfamethox sulfamethox 2017-04 2018- No Shallish Unknown Unknown azole 400 azole 400 04-24 MD,Jamie mg-trimetho mg-trimetho prim 80 mg prim 80 mg tablet tablet cefUROXime cefUROXime 2017-04 No Shallish Unknown Unknown axetil 250 axetil [...] pen s pen testosteron testosteron 2017-04 No Dike Unknown Unknown e cypionate e cypionate 06-06 Latanya DAVID 200 mg/mL 200 mg/mL intramuscul intramuscul ar kit ar kit mometasone mometasone 2017-04 No Dike Unknown Unknown 0.1 % 0.1 % 06-06 Latanya DAVID topical topical cream cream finasteride finasteride 2017-04 No Dike Unknown Unknown 5 mg tablet 5 mg tablet 06-06 Latanya DAVID Levemir Levemir 2017-04- No Dike Unknown Unknown FlexTouch FlexTouch 06-06 ,Latanya Woods U-100 U-100 Insulin 100 Insulin 100 unit/mL [...] 08-25 MD,Jamie tablet tablet Coumadin Coumadin 2018- No Shallish Unknown Unknown 2.5 mg 2.5 mg 08-2830 MD,Jamie tablet tablet Coumadin Coumadin 2018- No Shallish Unknown Unknown 2.5 mg 2.5 mg 09-07 MD,Jamie tablet tablet Coumadin Coumadin 2018- No Shallish Unknown Unknown 2.5 mg 2.5 mg 09-07 MD,Jamie tablet tablet Coumadin Coumadin 2018- No Shallish Unknown Unknown 2.5 mg 2.5 mg 09-11 MD,Jamie tablet tablet Coumadin Coumadin 2018- No Shallish Unknown Unknown 2.5 mg 2.5 mg 09-15 MD,Jamie tablet tablet Eliquis 5 Eliquis 5 No Shallish Unknown Unknown mg tablet mg tablet 09-21 MD,Jamie Levemir Levemir No Shallish Unknown Unknown FlexTouch FlexTouch 09-18 MD,Jamie U-100 U-100 Insulin 100 Insulin 100 [...] Observation Time Observation Value Comments SYSTOLIC mm[Hg] 2019-04-02 18:09:30 128 mm[Hg] mm[Hg] Method: Sit SYSTOLIC mm[Hg] 2018-01-23 18:02:16 122 mm[Hg] mm[Hg] Method: Stand DIASTOLIC mm[Hg] 2019-04-02 18:09:30 74 mm[Hg] mm[Hg] Method: Sit DIASTOLIC mm[Hg] 2018-01-23 18:02:16 60 mm[Hg] mm[Hg] Method: Stand PULSE 2019-04-02 18:09:30 64 /min /min RESP RATE 2019-04-02 18:09:30 16 /min /min TEMP 2019-04-02 18:09:30 98.1 [degF] Procedures This patient has no known procedures. Results This patient has no known results.
--- OUTSIDE RECORDS SUMMARY | 2019-04-11 14:36 | XMS REPORT ---
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 1- Jean-Claude ulcer of ulcer of [id number] other part other part of right of right foot with foot with fat layer fat layer exposed exposed Non-pressur Non-pressur Diagnosis Active Laura e chronic e chronic 1- Jean-Claude ulcer of ulcer of [id number] other part other part of left of left foot with foot with fat layer fat layer exposed exposed Type 2 Type 2 Diagnosis Active 2018-04 Laura diabetes diabetes 0-10 [place] mellitus mellitus [id number] with other with other skin ulcer skin ulcer Non-pressur Non-pressur Diagnosis Active 2018-04 Laura e chronic e chronic 0-10 [place] ulcer of ulcer of [id number] other part other part of right of right lower leg lower leg with fat with fat layer layer exposed exposed 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- Jean-Claude mellitus mellitus [id number] with with diabetic diabetic peripheral peripheral angiopathy angiopathy without without gangrene gangrene 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 [place] cy cy [id number] (chronic) (chronic) (peripheral (peripheral ) ) 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-Claude disease disease [id number] with heart with heart failure failure Heart Heart Diagnosis Active Laura failure, failure, Jean-Claude unspecified unspecified 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 angina angina pectoris pectoris Chronic 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 pulmonary [id number] disease, disease, unspecified unspecified Paroxysmal Paroxysmal Diagnosis Active Laura atrial atrial Jean[place]Claude fibrillatio fibrillatio [id number] n n Anxiety Anxiety Diagnosis Active Laura disorder, disorder, [place] unspecified unspecified [id number] Unspecified Unspecified Diagnosis Active Laura osteoarthri osteoarthri [place] tis, tis, [id number] unspecified unspecified site site Irritable Irritable Diagnosis Active Laura bowel 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 [id number] without without diarrhea diarrhea Benign Benign Diagnosis Active Laura prostatic prostatic Jean[place]Claude hyperplasia hyperplasia [id number] without without lower lower urinary urinary tract tract symptoms symptoms Sleep Sleep Diagnosis Active Laura apnea, apnea, Jean-Claude unspecified unspecified [id number] Tremor, Tremor, Diagnosis Active Laura unspecified unspecified [place] [id number] Hypothyroid Hypothyroid Diagnosis Active Laura ism, ism, [place] unspecified unspecified [id number] Hyperlipide Hyperlipide Diagnosis Active Laura clemente, clemente, Jean-Claude unspecified unspecified [id number] senior care bursar Diagnosis Active Laura (current) (current) [place] use of use of [id number] insulin insulin bursar senior care Diagnosis Active Laura (current) (current) [place] use of use of [id number] anticoagula anticoagula nts nts senior care bursar Diagnosis Active Laura (current) (current) Jean[place]Claude use of use of [id number] opiate opiate analgesic analgesic Presence of Presence of Diagnosis Active Laura coronary coronary Jean[place]Claude angioplasty angioplasty [id number] implant and implant and graft graft Personal Personal Diagnosis Active Laura history of history of Jean-Claude 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 Pain frequent Pain Mgmt Resolve 2017-042018-05-08 Roselyn pain d 0-10 08:50:00 (Radha) 11:15: Weller 00 [id number] Cardio edema Cardiovasc Resolve 2017-042018-02-20 Roselyn ular d 0-10 09:50:00 (Radha) 11:15: Weller [id number] Respiratory dyspnea Respirator Resolve 2017-042018-02-15 Roselyn present y d 0-10 10:20:00 (Radha) 11:15: Weller [id number] Endo/Edgard glucose Endo/Edgard Resolve 2017-042018-03-20 Roselyn testing d 0-10 12:30:00 (Radha) dependence 11:15: Weller 00 [id number] Endo/Edgard knowledge/s Endo/Edgard Resolve 2017-042018-03-06 Roselyn kill d 0-10 09:30:00 (Radha) deficit: pt 11:15: Weller 00 [id number] Endo/Edgard anti-coagul Endo/Edgard Resolve 2017-042018-03-20 Roselyn ation d 0-10 12:30:00 (Radha) therapy 11:15: Weller 00 [id number] Endo/Edgard diabetic Endo/Edgard Resolve 2017-042018-03-06 Roselyn foot care d 0-10 09:30:00 (Radha) 11:15: Weller [id number] Sensory impaired Sensory Resolve 2017-042018-03-22 Roselyn hearing d 0-10 09:55:00 (Radha) 11:15: Weller [id number] Integument pressure Integument Resolve 2017-042018-08-21 Roselyn ulcer d 0-10 12:45:00 (Radha) present 11:15: Weller [id number] Integument skin Integument Resolve 2017-042018-03-03 Roselyn integrity d 0-10 09:19:00 (Radha) risk 11:15: Weller [id number] Integument surgical Integument Resolve 2017-042018-03-03 Quality wound d 0-10 09:19:00 Realtime7 present 11:15: 00 Integument other wound Integument Resolve 2017-042018-03-03 Quality present d 0-10 09:19:00 Realtime7 11:15: 00 Elimination urinary Eliminatio Resolve 2017-042018-03-20 Roselyn incontinenc n d 0-10 12:30:00 (Radha) e 11:15: Weller [id number] Neuro confusion Neuro/Emot Resolve 2017-042018-03-22 Roselyn present ion d 0-10 09:55:00 (Radha) 11:15: Weller [id number] Neuro anxiety Neuro/Emot Resolve 2017-042018-03-22 Roselyn present ion d 0-10 09:55:00 (Radha) 11:15: Weller [id number] Neuro impaired Neuro/Emot Resolve 2017-042018-03-22 Roselyn decision-ma ion d 0-10 09:55:00 (Radha) pj 11:15: Weller [id number] Activity ADL Activity Resolve 2017-042018-03-22 Roselyn assistance d 0-10 09:55:00 (Radha) required 11:15: Weller [id number] Safety structural Safety Resolve 2017-042018-03-22 Roselyn barriers d 0-10 09:55:00 (Radha) present 11:15: Weller 00 [id number] Safety fall risk Safety Resolve 2017-042018-03-22 Roselyn factor d 0-10 09:55:00 (Radha) present 11:15: Weller 00 [id number] Safety risk for Safety Resolve 2017-042018-03-22 Roselyn hospitaliza d 0-10 09:55:00 (Radha) tion 11:15: Weller [id number] Safety can be left Safety Resolve 2017-042018-03-22 Roselyn alone for d 0-10 09:55:00 (Radha) only short 11:15: Weller periods 00 [id number] Medication oral med Meds Resolve 2017-042018-02-06 Roselyn assistance d 0-10 09:15:00 (Radha) required 11:15: Weller [id number] Medication injectable Meds Resolve 2017-042018-02-06 Roselyn med d 0-10 09:15:00 (Radha) assistance 11:15: Weller required 00 [id number] Medication knowledge/s Meds Resolve 2017-042018-02-15 Roselyn kill d 0-10 10:20:00 (Radha) deficit: pt 11:15: Weller [id number] Medication potential Meds Resolve 2017-042018-02-15 Roselyn clinically d 0-10 10:20:00 (Radha) significant 11:15: Weller medication 00 [id number] issue Musculoskel transfer Musculoske Resolve 2017-042018-03-20 Roselyn etal assistance letal d 0-10 12:30:00 (Radha) required 11:15: Weller 00 [id number] Musculoskel requires Musculoske Resolve 2017-042018-03-20 Roselyn etal human letal d 0-10 12:30:00 (Radha) assist to 11:15: Weller leave home 00 [id number] Safety knowledge/s Safety Resolve 2017-042018-03-22 Laura kill d 0-12 09:55:00 Jean-Claude deficit: pt 10:00: [id number] 00 Respiratory knowledge/s Respirator Resolve 2017-042018-02-06 Laura kill y d 0-15 09:15:00 Jean-Claude deficit: cg 10:00: [id number] 00 Respiratory lung sounds Respirator Resolve 2017-042018-02-06 Laura deficit y d 0-15 09:15:00 [place] 10:00: [id number] 00 Sensory impaired Sensory Resolve 2017-042018-03-22 Quality verbal d 0-17 09:55:00 Realtime7 communicati 18:36: on 42 Musculoskel knowledge/s Musculoske Resolve 2017-042018-03-03 Laura etal kill letal d 0-24 09:19:00 Jean-Claude deficit: cg 09:45: [id number] 00 Nutrition knowledge/s Nutrition Resolve 2017-042018-03-03 Laura kill d 0-26 09:19:00 Jean-Claude deficit: pt 09:15: [id number] 00 Nutrition nutritional Nutrition Resolve 2017-042018-03-03 Laura restriction d 0-26 09:19:00 Jean-Claude s 09:15: [id number] 00 Elimination catheter Eliminatio Resolve 2017-042018-03-20 Laura present n d 0-26 12:30:00 Jean-Claude 09:15: [id number] 00 Elimination constipatio Eliminatio Resolve 2017-042018-03-20 Laura n n d 0-26 12:30:00 Jean-Claude 09:15: [id number] 00 Infection s/s of Infection Resolve 2017-042018-03-22 Laura infection d 0-31 09:55:00 Jean-Claude 09:30: [id number] 00 Endo/Edgard insulin Endo/Edgard Resolve 2017-042018-03-20 Laura admn d 04-22 12:30:00 [place] dependence 09:50: [id number] 00 Respiratory dyspnea Respirator Resolve 2017-042018-03-08 Laura present y d 04-24 09:20:00 Jean-Claude 10:07: [id number] 00 Safety cannot be Safety Resolve 2017-042018-03-22 Laura left alone d 04-24 09:55:00 Jean-Claude 10:07: [id number] 00 Cardio edema Cardiovasc Resolve 2017-042018-03-03 Laura ular d 04-26 09:19:00 Jean-Claude 09:51: [id number] 00 Respiratory Incentive Respirator Resolve 2017-042018-03-03 Laura Spirometer y d 04-26 09:19:00 [place] /Acapella 09:51: [id number] Device 00 treatments in home Endo/Edgard knowledge/s Endo/Edgard Resolve 2017-042018-03-20 Laura kill d 05-08 12:30:00 Jean-Claude deficit: pt 09:20: [id number] 00 Nutrition knowledge/s Nutrition Resolve 2017-042018-04-19 Laura kill d 05-08 09:45:00 [place] deficit: pt 09:20: [id number] 00 Nutrition nutritional Nutrition Resolve 2017-042018-04-19 Laura restriction d 05-08 09:45:00 Jean-Claude roe 09:20: [id number] 00 Endo/Edgard diabetic Endo/Edgard Resolve 2017-042018-03-20 Laura foot care d 05-14 12:30:00 Jean-Claude 09:20: [id number] 00 Pain frequent Pain Mgmt Unknown 2017-04 Laura pain 05-18 Jean-Claude 12:45: [id number] 00 Respiratory dyspnea Respirator Resolve 2017-042018-03-20 Laura present y d 05-18 12:30:00 Jean[place]Claude 12:45: [id number] 00 Integument pressure Integument Unknown 2017-04 Laura ulcer 05-18 [place] present 12:45: [id number] 00 Integument surgical Integument Resolve 2017-042018-03-24 Laura wound d 05-18 11:23:00 Jean-Claude present 12:45: [id number] 00 Endo/Edgard diabetic Endo/Edgard Resolve 2017-042018-03-24 Laura foot care d 05-23 11:23:00 Jean-Claude 09:55: [id number] 00 Elimination catheter Eliminatio Resolve 2017-042018-04-19 Laura present n d 05-23 09:45:00 Jean-Claude 09:55: [id number] 00 Safety risk for Safety Resolve 2017-042018-04-19 Laura hospitaliza d 05-25 09:45:00 Jean-Claude tion 11:23: [id number] 00 Safety can be left Safety Resolve 2017-042018-04-19 Laura alone for d 05-25 09:45:00 Jean-Claude only short 11:23: [id number] periods 00 Musculoskel knowledge/s Musculoske Resolve 2017-042018-03-29 Laura etal kill letal d 05-28 09:30:00 Jean-Claude deficit: cg 10:20: [id number] 00 Musculoskel requires Musculoske Resolve 2017-042018-04-12 Laura etal human letal d 05-28 09:45:00 Jean-Claude assist to 10:20: [id number] leave home 00 Endo/Edgard diabetic Endo/Edgard Resolve 2017-042018-04-19 Laura foot care d 05-30 09:45:00 Jean-Claude 09:30: [id number] 00 Elimination constipatio Eliminatio Resolve 2017-042018-04-12 Laura n n d 05-30 09:45:00 Jean-Claude 09:30: [id number] 00 Pain frequent Pain Mgmt Unknown 2017-04 Laura pain 06-06 Jean-Claude 09:45: [id number] 00 Endo/Edgard insulin Endo/Edgard Resolve 2017-042018-04-19 Laura admn d 06-06 09:45:00 Jean-Claude dependence 09:45: [id number] 00 Endo/Edgard anti-coagul Endo/Edgard Resolve 2017-042018-04-19 Laura ation d 06-06 09:45:00 Jean-Claude therapy 09:45: [id number] 00 Integument surgical Integument Resolve 2017-042018-04-05 Laura wound d 06-06 09:45:00 Jean-Claude present 09:45: [id number] 00 Integument skin Integument Resolve 2017-042018-04-05 Laura integrity d 06-06 09:45:00 Jean-Claude risk 09:45: [id number] 00 Integument pressure Integument Unknown 2017-04 Laura ulcer 06-06 [place] present 09:45: [id number] 00 Elimination UTI within Eliminatio Resolve 2017-042018-04-12 Laura past 14 n d 06-06 09:45:00 Jean-Claude days 09:45: [id number] 00 Activity ADL Activity Resolve 2017-042018-09-15 Laura assistance d 2- 10:35:00 [place] required 09:45: [id number] 00 Safety fall risk Safety Resolve 2017-042018-04-19 Laura factor d 2 09:45:00 Jean-Claude present 09:45: [id number] 00 Medication potential Meds Resolve 2017-042018-04-19 Laura clinically d 2 09:45:00 [place] significant 09:45: [id number] medication 00 issue Medication oral med Meds Resolve 2017-042018-04-05 Shari assistance d 06-06 09:45:00 Regeczi required 09:45: [id number] 00 Medication injectable Meds Resolve 2017-042018-08-09 Shari med d 06-06 09:20:00 Regeczi assistance 09:45: [id number] required 00 Musculoskel transfer Musculoske Resolve 2017-042018-04-12 Shari etal assistance letal d 06-06 09:45:00 Regeczi required 09:45: [id number] 00 Medication oral med Meds Resolve 2017-042018-04-19 Laura assistance d 2 09:45:00 Jean-Claude required 10:00: [id number] 00 Medication injectable Meds Unknown 2017-04 Laura med 06-08 Jean-Claude assistance 10:00: [id number] required 00 Sensory impaired Sensory Resolve 2017-042018-04-19 Nima verbal d 2- 09:45:00 Graves communicati 15:20: [id number] on 00 Sensory impaired Sensory Resolve 2017-042018-04-19 Nima hearing d 2 09:45:00 Graves 15:20: [id number] 00 Medication injectable Meds Unknown 2017-04 Nhung med - Pérez assistance 14:56: [id number] required 00 Medication injectable Meds Unknown Nima med 04-13 Graves assistance 13:50: [id number] required 00 Elimination constipatio Eliminatio Resolve 2018-04-19 Laura jarvis n d 04-14 09:45:00 Jean-Claude 09:28: [id number] 00 Medication injectable Meds Unknown Laura med 04-17 Jean-Claude assistance 10:00: [id number] required 00 Medication injectable Meds Resolve 2018-04-19 Laura med d -09 09:45:00 [place] assistance 09:45: [id number] required 00 Endo/Edgard anti-coagul Endo/Edgard Resolve 2018-04-26 Laura ation d -11 10:15:00 Jean-Claude therapy 09:45: [id number] 00 Nutrition knowledge/s Nutrition Resolve 2018-04-26 Laura kill d 04-21 10:15:00 Jean-Claude deficit: pt 09:45: [id number] 00 Nutrition nutritional Nutrition Resolve 2018-04-26 Laura restriction d 04-21 10:15:00 Jean-Claude s 09:45: [id number] 00 Elimination catheter Eliminatio Resolve 2018-04-26 Laura present n d 04-21 10:15:00 Jean-Claude 09:45: [id number] 00 Elimination constipatio Eliminatio Resolve 2018-04-26 Laura n n d 04-21 10:15:00 Jean-Claude 09:45: [id number] 00 Safety risk for Safety Resolve 2018-04-26 Laura hospitaliza d 04-21 10:15:00 Jean-Claude tion 09:45: [id number] 00 Safety can be left Safety Resolve 2018-04-26 Laura alone for d 04-21 10:15:00 Jean-Claude only short 09:45: [id number] periods 00 Sensory impaired Sensory Resolve 2018-04-26 Nima verbal d 1-11 10:15:00 Graves communicati 14:30: [id number] on 00 Sensory impaired Sensory Resolve 2018-04-26 Nima hearing d 1-11 10:15:00 Graves 14:30: [id number] 00 Sensory impaired Sensory Resolve 2018-04-28 Nima verbal d 1-17 10:20:00 Graves communicati 12:45: [id number] on 00 Sensory impaired Sensory Resolve 2018-04-28 Nima hearing d 1-17 10:20:00 Graves 12:45: [id number] 00 Endo/Edgard anti-coagul Endo/Edgard Resolve 2018-05-24 Laura ation d 18 12:30:00 [place] therapy 10:20: [id number] 00 Safety risk for Safety Active Laura hospitaliza 1-18 Jean-Claude tion 10:20: [id number] 00 Safety can be left Safety Resolve 2018-05-10 Laura alone for d 1- 13:45:00 Jean-Claude only short 10:10: [id number] periods 00 Sensory impaired Sensory Resolve 2018-05-10 Jia hearing d 05-05 13:45:00 Hillebrand 13:30: t 00 [id number] Sensory impaired Sensory Resolve 2018-05-10 Jia verbal d 05-05 13:45:00 Hillebrand communicati 13:30: t on [id number] Elimination catheter Eliminatio Resolve 2018-05-08 Wandy present n d 05-08 08:50:00 ,Kaylee 08:50: 00 Elimination constipatio Eliminatio Resolve 2018-06-28 Wandy n n d 05-08 09:45:00 ,Kaylee 08:50: 00 Safety cannot be Safety Resolve 2018-05-10 Laura left alone d 05-08 13:45:00 Jean-Claude 08:50: [id number] 00 Elimination catheter Eliminatio Resolve 2018-05-12 Shari present n d 2 09:30:00 Regeczi 09:30: [id number] 00 Safety can be left Safety Resolve 2018-05-17 Laura alone for d 2- 10:00:00 Jean-Claude only short 09:30: [id number] Elimination urinary Eliminatio Resolve 2018-05-15 Laura incontinenc n d 2- 08:45:00 Jean-Claude e 08:45: [id number] 00 Pain frequent Pain Mgmt Resolve 2018-05-17 Laura pain d 2-06 10:00:00 Jean-Claude 10:00: [id number] 00 Respiratory lung sounds Respirator Resolve 2018-05-22 Laura deficit y d 2-06 10:44:00 Jean-Claude 10:00: [id number] 00 Integument pressure Integument Unknown Laura ulcer 2- [place] present 10:00: [id number] 00 Integument skin Integument Resolve 2018-05-17 Laura integrity d 2-06 10:00:00 Jean-Claude risk 10:00: [id number] 00 Integument surgical Integument Resolve 2018-05-17 Laura wound d 2-06 10:00:00 [place] present 10:00: [id number] 00 Activity ADL Activity Unknown Laura assistance 2- Jean-Claude required 10:00: [id number] 00 Activity self-care Activity Resolve 2018-05-19 Alura deficit d 2-06 11:15:00 Jean-Claude 10:00: [id number] 00 Safety fall risk Safety Resolve 2018-05-19 Laura factor d 2- 11:15:00 [place] present 10:00: [id number] 00 Elimination urinary Eliminatio Resolve 2018-05-24 Thornberry incontinenc n d 2-08 12:30:00 ,Kaylee e 11:15: 00 Safety can be left Safety Resolve 2018-05-24 Laura alone for d 2- 12:30:00 Jean-Claude only short 11:15: [id number] 00 Safety fall risk Safety Resolve 2018-05-24 Sonia White factor d 2-12 12:30:00 present 09:48: 41 Endo/Edgard glucose Endo/Edgard Resolve 2018-05-24 Laura tolerance d 2-13 12:30:00 [place] problem 12:30: [id number] 00 Respiratory Incentive Respirator Resolve 2018-06-07 Laura Spirometer y d 2-15 12:00:00 [place] /Acapella 13:40: [id number] Device 00 treatments in home Endo/Edgard anti-coagul Endo/Edgard Resolve 2018-06-12 Laura ation d 2-15 09:30:00 [place] therapy 13:40: [id number] 00 Elimination urinary Eliminatio Resolve 2018-05-26 Laura incontinenc n d 2-15 13:40:00 Jean-Claude e 13:40: [id number] 00 Safety can be left Safety Resolve 2018-06-07 Laura alone for d 2-15 12:00:00 Jean-Claude only short 13:40: [id number] periods 00 Endo/Edgard glucose Endo/Edgard Resolve 2018-06-07 Cherrise tolerance d 06-02 12:00:00 Trixie problem 10:15: [id number] 00 Endo/Edgard insulin Endo/Edgard Resolve 2018-06-12 Cherrise admn d 06-02 09:30:00 Sloan dependence 10:15: [id number] 00 Endo/Edgard glucose Endo/Edgard Resolve 2018-06-12 Cherrise testing d 06-02 09:30:00 Sloan dependence 10:15: [id number] 00 Safety fall risk Safety Resolve 2018-06-07 Cherrise factor d 06-02 12:00:00 Sloan present 10:15: [id number] 00 Musculoskel transfer Musculoske Active Cherrise etal assistance letal 06-02 Trixie required 10:15: [id number] 00 Musculoskel requires Musculoske Active Cherrise etal human letal 06-02 Trixie assist to 10:15: [id number] leave home 00 Elimination urinary Eliminatio Resolve 2018-06-07 Laura incontinenc n d 06-05 12:00:00 Jean-Claude e 12:30: [id number] 00 Activity self-care Activity Resolve 2018-08-14 Laura deficit d 06-05 12:10:00 Jean-Claude 12:30: [id number] 00 Elimination urinary Eliminatio Resolve 2018-06-12 Laura incontinenc n d 06-09 09:30:00 Jean-Claude e 09:13: [id number] 00 Safety can be left Safety Resolve 2018-06-12 Laura alone for d 06-09 09:30:00 Jean-Claude only short 09:13: [id number] periods 00 Respiratory Incentive Respirator Resolve 2018-06-14 Laura Spirometer y d 06-12 09:30:00 Jean-Claude /Acapella 09:30: [id number] Device 00 treatments in home Endo/Edgard anti-coagul Endo/Edgard Resolve 2018-06-30 Laura ation d 06-14 09:19:00 Jean-Claude therapy 09:30: [id number] 00 Safety can be left Safety Resolve 2018-06-30 Laura alone for d 3- 09:19:00 Jean-Claude only short 09:30: [id number] periods 00 Elimination urinary Eliminatio Resolve 2018-06-19 Laura incontinenc n d 3-08 13:45:00 [place] e 09:45: [id number] 00 Elimination urinary Eliminatio Resolve 2018-06-28 Laura incontinenc n d 3- 09:45:00 Jean-Claude e 13:15: [id number] 00 Elimination constipatio Eliminatio Resolve 2018-07-14 Laura n n d 3 09:20:00 Jean-Claude 09:19: [id number] 00 Endo/Edgard anti-coagul Endo/Edgard Resolve 2018-07-14 Laura ation d 3 09:20:00 Jean-Claude therapy 12:49: [id number] 00 Elimination urinary Eliminatio Resolve 2018-07-14 Laura incontinenc n d 07-03 09:20:00 Jean-Claude e 12:49: [id number] 00 Safety can be left Safety Resolve 2018-08-18 Laura alone for d 3- 12:05:00 Jean-Claude only short 12:50: [id number] periods 00 Endo/Edgard glucose Endo/Edgard Resolve 2018-07-14 Shi testing d 07-10 09:20:00 Sorin, dependence 12:30: [id number] 00 Pain frequent Pain Mgmt Resolve 2018-07-14 Laura pain d 4 09:20:00 Jean-Claude 09:20: [id number] 00 Integument surgical Integument Resolve 2018-08-13 Laura wound d 4-05 12:50:00 [place] present 09:20: [id number] 00 Integument skin Integument Resolve 2018-08-13 Laura integrity d 4-05 12:50:00 Jean-Claude risk 09:20: [id number] 00 Safety fall risk Safety Resolve 2018-08-18 Laura factor d 4-05 12:05:00 [place] present 09:20: [id number] 00 Endo/Edgard anti-coagul Endo/Edgard Resolve 2018-08-14 Laura ation d 07-17 12:10:00 [place] therapy 13:00: [id number] 00 Elimination urinary Eliminatio Resolve 2018-07-21 Laura incontinenc n d 07-17 09:25:00 [place] e 13:00: [id number] 00 Activity ADL Activity Unknown Laura assistance 07-17 Jean-Claude required 13:00: [id number] 00 Elimination urinary Eliminatio Resolve 2018-08-14 Laura incontinenc n d 07-24 12:10:00 Jean-Claude e 09:27: [id number] 00 Pain frequent Pain Mgmt Resolve 2018 Laura pain d 08-07 09:20:00 Jean-Claude 12:45: [id number] 00 Cardio edema Cardiovasc Resolve 2018 Laura ular d 08-07 09:20:00 Jean-Claude 12:45: [id number] 00 Respiratory dyspnea Respirator Resolve 2018 Laura present y d 08-07 09:20:00 Jean-Claude 12:45: [id number] 00 Endo/Edgard diabetic Endo/Edgard Resolve 2018-08-14 Laura foot care d 08-07 12:10:00 Jean-Claude 12:45: [id number] 00 Nutrition knowledge/s Nutrition Active Laura kill 08-07 Jean-Claude deficit: pt 12:45: [id number] 00 Nutrition nutritional Nutrition Active Laura restriction 08-07 Jean-Claude s 12:45: [id number] 00 Neuro confusion Neuro/Emot Resolve 2018-08-14 Laura present ion d 08-07 12:10:00 Jean-Claude 12:45: [id number] 00 Medication oral med Meds Resolve 2018 Laura assistance d 08-07 09:20:00 Jean-Claude required 12:45: [id number] 00 Medication injectable Meds Resolve 2018 Jia med d 08-07 09:20:00 Jerardo assistance 12:45: [id number] required 00 Cardio edema Cardiovasc Resolve 2018-08-23 Laura ular d 08-13 11:15:00 [place] 12:50: [id number] 00 Respiratory dyspnea Respirator Resolve 2018-08-14 Laura present y d 08-13 12:10:00 Jean-Claude 12:50: [id number] 00 Endo/Edgard anti-coagul Endo/Edgard Resolve 2018-08-28 Laura ation d 08-16 12:00:00 [place] therapy 12:15: [id number] 00 Elimination urinary Eliminatio Resolve 2018-08-21 Laura incontinenc n d 08-16 12:45:00 [place] e 12:15: [id number] 00 Sensory impaired Sensory Resolve 2018-08-21 Krystyna verbal d 08-17 12:45:00 [place] communicati 14:30: [id number] on 00 Sensory impaired Sensory Resolve 2018-08-21 Krystyna hearing d 08-17 12:45:00 [place] 14:30: [id number] 00 Social financial LILLIAN: Resolve 2019-02-16 Krystyna Services resource Social d 08-17 13:45:00 [place] deficit Services 14:30: [id number] 00 Social knowledge/s LILLIAN: Resolve 2018-08-17 Krystyna Services kill Social d 08-17 14:30:00 [place] deficit - Services 14:30: [id number] pt 00 Social knowledge/s LILLIAN: Resolve 2018-08-17 Krystyna Services kill Social d 08-17 14:30:00 [place] deficit - Services 14:30: [id number] cg 00 Safety can be left Safety Resolve 2018-09-07 Laura alone for d 08-23 10:00:00 Jean-Claude only short 11:15: [id number] periods 00 Social knowledge/s LILLIAN: Active Laura Services kill Social 08-23 [place] deficit - Services 11:15: [id number] pt 00 Elimination urinary Eliminatio Resolve 2018-09-07 Laura incontinenc n d 08-25 10:00:00 Jean-Claude e 11:45: [id number] 00 Sensory impaired Sensory Resolve 2018-09-07 Krystyna verbal d 09-01 10:00:00 [place] communicati 14:45: [id number] on 00 Sensory impaired Sensory Resolve 2018-09-07 [facility]yna hearing [facility] 09[facility]01 [facility] [id number] 00 Social knowledge/s LILLIAN: Active Krystyna Services kill Social 09-01 [facility] deficit - Services 14:45: [id number] cg 00 Respiratory dyspnea Respirator Resolve 2018-09-15 Laura present y d 09-07 10:35:00 Jean-Claude 10:00: [id number] 00 Pain frequent Pain Mgmt Resolve 2018-09-11 Laura pain d 09-11 11:50:00 Jean-Claude 11:50: [id number] 00 Cardio hypertensio Cardiovasc Resolve 2018-09-11 Laura n ular d 09-11 11:50:00 Jean-Claude 11:50: [id number] 00 Integument pressure Integument Resolve 2018-09-15 Laura ulcer d 09-11 10:35:00 Jean-Claude present 11:50: [id number] 00 Integument surgical Integument Resolve 2018-09-15 Laura wound d 09-11 10:35:00 [place] present 11:50: [id number] 00 Integument skin Integument Resolve 2018-09-15 Laura integrity d 09-11 10:35:00 Jean-Claude risk 11:50: [id number] 00 Elimination urinary Eliminatio Resolve 2018-09-11 Laura incontinenc n d 09-11 11:50:00 [place] e 11:50: [id number] 00 Activity ADL Activity Unknown Laura assistance 09-11 Jean-Claude required 11:50: [id number] 00 Activity self-care Activity Resolve 2018-09-15 Laura deficit d 09-11 10:35:00 Jean-Claude 11:50: [id number] 00 Safety fall risk Safety Resolve 2018-09-15 Laura factor d 09-11 10:35:00 Jean-Claude present 11:50: [id number] 00 Safety can be left Safety Resolve 2018-09-15 Laura alone for d 09-11 10:35:00 Jean-Claude only short 11:50: [id number] periods 00 Endo/Edgard anti-coagul Endo/Edgard Resolve 2018-09-18 Laura ation d 6-07 12:20:00 [place] therapy 10:35: [id number] 00 Elimination urinary Eliminatio Resolve 2018-09-18 Laura incontinenc n d 09-15 12:20:00 Jean-Claude e 10:35: [id number] 00 Elimination constipatio Eliminatio Resolve 2018-09-18 Laura n n d 09-15 12:20:00 Jean-Claude 10:35: [id number] 00 Safety can be left Safety Resolve 2018-09-25 Laura alone for d 09-18 11:45:00 Jean-Claude only short 12:20: [id number] periods 00 Cardio hypertensio Cardiovasc Resolve 2018-09-21 Laura n ular d 09-21 11:45:00 Jean-Claude 11:45: [id number] 00 Endo/Edgard anti-coagul Endo/Edgard Resolve 2018-09-25 Laura ation d 09-21 11:45:00 Jean-Claude therapy 11:45: [id number] 00 Cardio hypertensio Cardiovasc Resolve 2018-10-02 Laura n ular d 09-25 12:05:00 Jean-Claude 11:45: [id number] 00 Elimination urinary Eliminatio Resolve 2018-10-02 Laura incontinenc n d 09-25 12:05:00 Jean-Claude e 11:45: [id number] 00 Endo/Edgard anti-coagul Endo/Edgard Resolve 2018-10-02 Laura ation d 09-29 12:05:00 Jean-Claude therapy 09:45: [id number] 00 Safety can be left Safety Resolve 2018-10-02 Laura alone for d 09-29 12:05:00 Jean-Claude only short 09:45: [id number] periods 00 Endo/Edgard anti-coagul Endo/Edgard Resolve 2018-10-27 Laura ation d 10-04 11:30:00 Jean-Claude therapy 10:10: [id number] 00 Elimination urinary Eliminatio Resolve 2018-10-06 Laura incontinenc n d 10-04 09:10:00 Jean-Claude e 10:10: [id number] 00 Elimination constipatio Eliminatio Resolve 2018-10-06 Laura n n d 10-04 09:10:00 Jean-Claude 10:10: [id number] 00 Safety can be left Safety Resolve 2018-10-06 Laura alone for d 10-04 09:10:00 Jean-Claude only short 10:10: [id number] periods 00 Sensory impaired Sensory Resolve 2018-10-23 Krystyna verbal d 6 11:56:00 Traunstein communicati 15:00: [id number] on 00 Sensory impaired Sensory Resolve 2018-10-23 Krystyna hearing d 10-05 11:56:00 [place] 15:00: [id number] 00 Elimination urinary Eliminatio Resolve 2018-10-27 Laura incontinenc n d 10-09 11:30:00 Jean-Claude e 12:15: [id number] 00 Elimination bloody Eliminatio Resolve 2018-10-27 Laura urine n d 10-09 11:30:00 Jean-Claude 12:15: [id number] 00 Safety can be left Safety Resolve 2018-10-23 Laura alone for d 10-09 11:56:00 Jean-Claude only short 12:15: [id number] Elimination constipatio Eliminatio Resolve 2018-12-08 Laura n n d 10-16 14:00:00 Jean-Claude 12:35: [id number] 00 Cardio edema Cardiovasc Resolve 2018-10-27 Laura ular d 10-20 11:30:00 Jean-Claude 11:35: [id number] 00 Endo/Edgard knowledge/s Endo/Edgard Resolve 2018-10-27 Laura kill d 10-20 11:30:00 Jean-Claude deficit: pt 11:35: [id number] 00 Sensory impaired Sensory Unknown Jonatan verbal 7-15 Demarco, communicati 13:30: PT on [id number] Sensory impaired Sensory Unknown Jonatan hearing 7-15 Demarco, 13:30: PT 00 [id number] Safety can be left Safety Resolve 2018-10-27 Laura alone for d 7- 11:30:00 Jean-Claude only short 10:35: [id number] periods 00 Endo/Edgard glucose Endo/Edgard Resolve 2018-12-11 Cherrise tolerance d 10-30 09:30:00 Trixie problem 11:55: [id number] 00 Endo/Edgard insulin Endo/Edgard Resolve 2018-12-13 Cherrise admn d 10-30 11:10:00 Sloan dependence 11:55: [id number] 00 Endo/Edgard glucose Endo/Edgard Resolve 2018-12-13 Cherrise testing d 10-30 11:10:00 Sloan dependence 11:55: [id number] 00 Endo/Edgard knowledge/s Endo/Edgrad Resolve 2018-12-08 Cherrise kill d 10-30 14:00:00 Sloan deficit: pt 11:55: [id number] 00 Elimination urinary Eliminatio Resolve 2018-12-08 Cherrise urgency n d 10-30 14:00:00 Trixie 11:55: [id number] 00 Neuro depressive Neuro/Emot Resolve 2018-12-08 Cherrise feelings ion d 10-30 14:00:00 Sloan present 11:55: [id number] 00 Neuro impaired Neuro/Emot Resolve 2018-12-08 Cherrise decision-ma ion d 10-30 14:00:00 Sloan pj 11:55: [id number] 00 Safety fall risk Safety Resolve 2018-12-06 Cherrise factor d 10-30 13:05:00 Sloan present 11:55: [id number] 00 Endo/Edgard anti-coagul Endo/Edgard Resolve 2018-12-13 Shi ation d 11-01 11:10:00 Sorin, therapy 12:30: [id number] 00 Respiratory Incentive Respirator Resolve 2018-11-29 Cherrise Spirometer y d 11-03 10:15:00 Trixie /Acapella 10:25: [id number] Device 00 treatments in home Elimination urinary Eliminatio Resolve 2018-12-08 Cherrise frequency n d 11-03 14:00:00 Sloan 10:25: [id number] 00 Respiratory lung sounds Respirator Resolve 2018-11-29 Cherrise deficit y d 11-06 10:15:00 Trixie 12:05: [id number] 00 Neuro memory Neuro/Emot Resolve 2018-12-08 Cherrise deficit ion d 7-31 14:00:00 Sloan needing 10:30: [id number] supervision 00 Pain frequent Pain Mgmt Resolve 2018-12-06 Shi pain d 11-10 13:05:00 Sorin, 11:00: [id number] 00 Integument pressure Integument Active Shi ulcer 11-10 Sorin, present 11:00: [id number] 00 Integument surgical Integument Active Shi wound 11-10 Sorin, present 11:00: [id number] 00 Integument skin Integument Active Shi integrity 11-10 Sorin, risk 11:00: [id number] 00 Elimination urinary Eliminatio Resolve 2018-12-08 Shi incontinenc n d 11-10 14:00:00 Sorin, e 11:00: [id number] 00 Activity self-care Activity Resolve 2018-11-29 Shi deficit d 11-10 10:15:00 Sorin, 11:00: [id number] 00 Activity ADL Activity Resolve 2018-12-08 Shi assistance d 11-10 14:00:00 Sorin, required 11:00: [id number] 00 Pain knowledge/s Pain Mgmt Resolve 2018-12-06 Krystyna kill d 11-16 13:05:00 Traunstein deficit: cg 15:15: [id number] 00 Respiratory knowledge/s Respirator Resolve 2018-11-29 Krystyna kill y d 11-16 10:15:00 Traunstein deficit: cg 15:15: [id number] 00 Integument knowledge/s Integument Active 2018- Krystyna kill 11-16 Traunstein deficit: cg 15:15: [id number] 00 Elimination knowledge/s Eliminatio Resolve 2018-12-08 Krystyna kill n d 11-16 14:00:00 Traunstein deficit: cg 15:15: [id number] 00 Safety knowledge/s Safety Resolve 2018-12-06 Krystyna kill d 11-16 13:05:00 Traunstein deficit: cg 15:15: [id number] 00 Cardio hypertensio Cardiovasc Resolve 2018-11-29 Lenny ruiz d 11-17 10:15:00 Trixie 10:45: [id number] 00 Safety can be left Safety Resolve 2018-12-08 Shi alone for d 11-22 14:00:00 nancy Rowell 11:00: [id number] periods 00 Sensory impaired Sensory Resolve 2018-12-08 Laura verbal d 11-24 14:00:00 Jean-Claude communicati 09:30: [id number] on Sensory impaired Sensory Resolve 2018-12-08 Laura hearing d 11-24 14:00:00 [place] 09:30: [id number] 00 Respiratory knowledge/s Respirator Resolve 2018-12-08 Laura kill y d 12-01 14:00:00 [place] deficit: cg 09:30: [id number] 00 Sensory impaired Sensory Unknown Krystyna verbal 12-08 Traunstein communicati 15:00: [id number] on Sensory impaired Sensory Unknown Krystyna hearing 12-08 Traunstein 15:00: [id number] 00 Respiratory knowledge/s Respirator Resolve 2018-12-13 Laura kill y d 12-11 11:10:00 [place] deficit: cg 09:30: [id number] 00 Endo/Edgard knowledge/s Endo/Edgard Resolve 2018-12-13 Laura kill d 12-11 11:10:00 [place] deficit: pt 09:30: [id number] 00 Elimination urinary Eliminatio Resolve 2018-12-15 Laura incontinenc n d 12-11 13:10:00 Jean-Claude e 09:30: [id number] 00 Safety can be left Safety Resolve 2018-12-15 Laura alone for d 12-11 13:10:00 Jean-Claude only short 09:30: [id number] 00 Endo/Edgard knowledge/s Endo/Edgard Resolve 2019-01-05 Laura kill d 12-15 11:00:00 [place] deficit: pt 13:10: [id number] 00 Endo/Edgard anti-coagul Endo/Edgard Resolve 2019-01-05 Laura ation d 12-15 11:00:00 Jean-Claude therapy 13:10: [id number] 00 Elimination urinary Eliminatio Resolve 2018-12-27 Laura incontinenc n d 12-18 09:20:00 Jean-Claude e 12:10: [id number] 00 Safety can be left Safety Resolve 2019-01-05 Laura alone for d 12-18 11:00:00 Jean-Claude only short 12:10: [id number] periods 00 Elimination constipatio Eliminatio Resolve 2019-01-05 Laura n n d 12-20 11:00:00 Jean-Claude 12:15: [id number] 00 Pain frequent Pain Mgmt Resolve 2019-01-15 Laura pain d 12-27 12:30:00 Jean-Claude 09:20: [id number] 00 Respiratory dyspnea Respirator Resolve 2019-01-05 Laura present y d 12-27 11:00:00 Jean-Claude 09:20: [id number] 00 Endo/Edgard diabetic Endo/Edgard Resolve 2019-01-05 Laura foot care d 12-27 11:00:00 Jean-Claude 09:20: [id number] 00 Elimination diarrhea Eliminatio Resolve 2019-01-05 Laura n d 12-27 11:00:00 Jean-Claude 09:20: [id number] 00 Neuro confusion Neuro/Emot Resolve 2019-01-05 Laura present ion d 12-27 11:00:00 Jean-Claude 09:20: [id number] 00 Neuro anxiety Neuro/Emot Resolve 2019-01-05 Laura present ion d 12-27 11:00:00 Jean-Claude 09:20: [id number] 00 Activity ADL Activity Resolve 2019-01-05 Laura assistance d 12-27 11:00:00 Jean-Claude required 09:20: [id number] 00 Activity self-care Activity Resolve 2019-01-05 Laura deficit d 12-27 11:00:00 Jean-Claude 09:20: [id number] 00 Safety fall risk Safety Resolve 2019-01-05 Laura factor d 9-18 11:00:00 [place] present 09:20: [id number] 00 Medication potential Meds Resolve 2019-01-05 Laura clinically d 9-18 11:00:00 [place] significant 09:20: [id number] medication 00 issue Elimination urinary Eliminatio Resolve 2019-01-05 Laura incontinenc n d 920 11:00:00 [place] e 11:20: [id number] 00 Endo/Edgard knowledge/s Endo/Edgard Resolve 2019-01-10 Laura kill d 01-08 10:00:00 Jean-Claude deficit: pt 11:30: [id number] 00 Endo/Edgard anti-coagul Endo/Edgard Resolve 2019-01-10 Laura ation d 01-08 10:00:00 Jean-Claude therapy 11:30: [id number] 00 Elimination urinary Eliminatio Resolve 2019-01-15 Laura incontinenc n d 01-08 12:30:00 Jean-Claude e 11:30: [id number] 00 Safety can be left Safety Resolve 2019-02-16 Laura alone for d 01-08 12:00:00 Jean-Claude only short 11:30: [id number] periods 00 Respiratory dyspnea Respirator Resolve 2018-042019-01-26 Laura present y d 0-02 10:00:00 Jean-Claude 10:00: [id number] 00 Activity ADL Activity Resolve 2018-042019-01-12 Laura assistance d 0-02 11:30:00 [place] required 10:00: [id number] 00 Activity self-care Activity Resolve 2018-042019-01-12 Laura deficit d 0-02 11:30:00 Jean-Claude 10:00: [id number] 00 Safety fall risk Safety Resolve 2018-042019-01-12 Laura factor d 0-02 11:30:00 Jean-Claude present 10:00: [id number] 00 Medication injectable Meds Resolve 2018-042019-01-17 Laura med d 0-02 09:45:00 [place] assistance 10:00: [id number] required 00 Endo/Edgard knowledge/s Endo/Edgard Resolve 2018-042019-01-15 Laura kill d 0-04 12:30:00 Jean-Claude deficit: pt 11:30: [id number] 00 Endo/Edgard anti-coagul Endo/Edgard Resolve 2018-042019-01-15 Laura ation d 0-04 12:30:00 [place] therapy 11:30: [id number] 00 Elimination constipatio Eliminatio Resolve 2018-042019-01-15 Laura n n d 0-04 12:30:00 [place] 11:30: [id number] 00 Sensory impaired Sensory Resolve 2018-042019-01-15 Krystyna verbal d 0-04 12:30:00 [place] communicati 15:30: [id number] on 00 Sensory impaired Sensory Resolve 2018-042019-01-15 Krystyna hearing d 0-04 12:30:00 [place]stein 15:30: [id number] 00 Infection s/s of Infection Resolve 2018-042019-03-09 Laura infection d 0-07 11:00:00 [place] 12:30: [id number] 00 Sensory impaired Sensory Resolve 2018-042019-01-22 Jonatan verbal d 0-08 11:00:00 ambrosio Pal 13:00: PT on 121544-5 Sensory impaired Sensory Resolve 2018-042019-01-22 Jonatan hearing d 0-08 11:00:00 Demarco, 13:00: PT 00 [id number] Endo/Edgard knowledge/s Endo/Edgard Resolve 2018-042019-02-07 Laura kill d 0-09 11:20:00 [place] deficit: pt 09:45: [id number] 00 Endo/Edgard anti-coagul Endo/Edgard Resolve 2018-042019-02-07 Laura ation d 0-09 11:20:00 Jean-Claude therapy 09:45: [id number] 00 Elimination urinary Eliminatio Resolve 2018-042019-02-02 Laura incontinenc n d 0-09 11:30:00 Jean-Claude e 09:45: [id number] 00 Elimination constipatio Eliminatio Resolve 2018-042019-02-02 Laura n n d 0-16 11:30:00 [place] 10:00: [id number] 00 Sensory impaired Sensory Resolve 2018-042019-01-31 Jonatan verbal d 0-17 11:10:00 ambrosio Pal 15:00: PT on [id number] Sensory impaired Sensory Resolve 2019-1 2019-01-31 Jonatan hearing d 0-17 11:10:00 Demarco, 15:00: PT 00 [id number] Pain frequent Pain Mgmt Resolve 2018-042019-02-16 Jonatan pain d 0-23 12:00:00 Demarco, 13:00: PT 00 [id number] Sensory impaired Sensory Unknown 2018-04 Jonatan verbal 0-23 Demarco, communicati 13:00: PT on 00 [id number] Sensory impaired Sensory Unknown 2018-04 Jonatan hearing 0-23 Demarco, 13:00: PT 00 128964-0 Respiratory dyspnea Respirator Resolve 2018-042019-02-07 Laura present y d 0-25 11:20:00 [place] 11:30: [id number] 00 Elimination urinary Eliminatio Resolve 2018-042019-02-07 Laura incontinenc n d 0-28 11:20:00 [place] e 12:40: [id number] 00 Endo/Edgard knowledge/s Endo/Edgard Resolve 2018-042019-02-19 Laura kill d 04-11 12:40:00 Jean-Claude deficit: pt 12:30: [id number] 00 Endo/Edgard anti-coagul Endo/Edgard Resolve 2018-042019-02-19 Laura ation d 04-11 12:40:00 [place] therapy 12:30: [id number] 00 Elimination urinary Eliminatio Resolve 2018-042019-02-16 Laura incontinenc n d 04-11 12:00:00 Jean-Claude e 12:30: [id number] 00 Medication potential Meds Resolve 2018-042019-02-24 Laura clinically d 1 09:45:00 Jean-Claude significant 12:20: [id number] medication 00 issue Elimination constipatio Eliminatio Resolve 2018-042019-02-16 Laura n n d 04-16 12:00:00 [place] 11:20: [id number] 00 Elimination urinary Eliminatio Resolve 2018-042019-02-24 Laura incontinenc n d 04-21 09:45:00 [place] e 12:40: [id number] 00 Safety can be left Safety Resolve 2018-042019-02-24 Laura alone for d 04-21 09:45:00 Jean-Claude only short 12:40: [id number] periods 00 Endo/Edgard knowledge/s Endo/Edgard Resolve 2018-042019-02-24 Laura kill d 1-13 09:45:00 [place] deficit: pt 12:05: [id number] 00 Endo/Edgard anti-coagul Endo/Edgard Resolve 2018-042019-02-24 Laura ation d 1- 09:45:00 Jean-Claude therapy 12:05: [id number] 00 Sensory impaired Sensory Resolve 2018-042019-02-26 Laura verbal d 04-26 13:20:00 Jean-Claude communicati 09:45: [id number] on 00 Sensory impaired Sensory Resolve 2018-042019-02-26 Laura hearing d 16 13:20:00 Jean-Claude 09:45: [id number] 00 Endo/Edgard knowledge/s Endo/Edgard Resolve 2018-042019-02-28 Laura kill d 04-28 11:15:00 Jean-Claude deficit: pt 13:20: [id number] 00 Endo/Edgard anti-coagul Endo/Edgard Resolve 2018-042019-02-28 Laura ation d 04-28 11:15:00 [place] therapy 13:20: [id number] 00 Elimination urinary Eliminatio Resolve 2018-042019-03-09 Laura incontinenc n d 04-28 11:00:00 Jean-Claude e 13:20: [id number] 00 Safety can be left Safety Resolve 2018-042019-03-05 Laura alone for d 04-28 12:45:00 [place] only short 13:20: [id number] periods 00 Endo/Edgard knowledge/s Endo/Edgard Resolve 2018-042019-03-09 Laura kill d 05-05 11:00:00 [place] deficit: pt 12:45: [id number] 00 Endo/Edgard anti-coagul Endo/Edgard Resolve 2018-042019-03-09 Laura ation d 05-05 11:00:00 [place] therapy 12:45: [id number] 00 Safety can be left Safety Resolve 2018-042019-03-09 Laura alone for d 05-07 11:00:00 Jean-Claude only short 11:25: [id number] periods 00 Sensory impaired Sensory Resolve 2018-042019-03-12 Krystyna verbal d 05-09 11:15:00 Kendrickunstein communicati 12:00: [id number] on 00 Sensory impaired Sensory Resolve 2018-042019-03-12 Krystyna hearing d 05-09 11:15:00 [facility] 12:00: [id number] 00 Social financial LILLIAN: Active 2018-04 Krystyna Services resource Social 05-09 [facility] deficit Services 12:00: [id number] 00 Respiratory dyspnea Respirator Resolve 2018-042019-03-14 Laura present y d 05-13 10:30:00 Jean-Claude 11:15: [id number] 00 Endo/Edgard knowledge/s Endo/Edgard Resolve 2018-042019-04-02 Laura kill d 05-13 11:45:00 Jean-Claude deficit: pt 11:15: [id number] 00 Endo/Edgard anti-coagul Endo/Edgard Resolve 2018-042019-04-02 Laura ation d 05-13 11:45:00 [place] therapy 11:15: [id number] 00 Elimination urinary Eliminatio Resolve 2018-042019-03-14 Laura incontinenc n d 05-13 10:30:00 Jean-Claude e 11:15: [id number] 00 Activity ADL Activity Resolve 2018-042019-03-14 Laura assistance d 05-13 10:30:00 [place] required 11:15: [id number] 00 Activity self-care Activity Resolve 2018-042019-03-14 Laura deficit d 05-13 10:30:00 Jean-Claude 11:15: [id number] 00 Safety fall risk Safety Resolve 2018-042019-03-14 Laura factor d 05-13 10:30:00 Jean-Claude present 11:15: [id number] 00 Safety can be left Safety Resolve 2018-042019-03-14 Laura alone for d 05-13 10:30:00 Jean-Claude only short 11:15: [id number] periods 00 Medication injectable Meds Resolve 2018-042019-03-12 Laura med d 05-13 11:15:00 [place] assistance 11:15: [id number] required 00 Safety can be left Safety Resolve 2018-042019-03-19 Laura alone for d 05-17 11:40:00 Jean-Claude only short 09:15: [id number] periods 00 Elimination urinary Eliminatio Resolve 2018-042019-03-30 Laura incontinenc n d 05-20 10:45:00 [place] e 11:40: [id number] 00 Safety can be left Safety Resolve 2018-042019-03-26 Laura alone for d 2-11 11:00:00 [place] only short 11:30: [id number] Safety can be left Safety Resolve 2018-042019-03-30 Laura alone for d 2-18 10:45:00 Jean-Claude only short 10:30: 00 Elimination urinary Eliminatio Active 2018-04 Laura incontinenc n 2-23 [place] e 11:45: Safety can be left Safety Active 2018-04 Laura alone for 2-23 [place] only short 11:45: [id number] 00 Allergies, Adverse Reactions, Alerts Allergy Name Allergy Status Severity Reaction(s) Onset Inactive Treating Comments Type Date Date Clinician bananas Unknown Active Unknown Reaction 2017-04 Roselyn Unknown 0-10 (Ardha) Nithin [id number] keflex Unknown Active Unknown Reaction 2017-04 Roselyn Unknown 0-10 (Radha) Nithin [id number] nuts Unknown Active Unknown Reaction 2017-04 Roselyn Unknown 0-10 (Radha) Nithin [id number] Cipro Medication Active Unknown Reaction 2017-04 Sonia White Name ID Unknown 0-10 metronidazol Base Active Unknown Nausea and 2017-04 Roselyn e Ingredient vomiting 2-20 Guidelli [id number] Medications Ordered Filled Start Stop Current Ordering [...] nded nded release release loperamide loperamide No [place] 1-2 Unknown 2 mg tablet 2 mg [...] pen s pen testosteron testosteron 2017-04 No [place] Unknown Unknown e cypionate e cypionate 06-06 Latanya DAVID 200 mg/mL 200 mg/mL intramuscul intramuscul ar kit ar kit mometasone mometasone 2017-04 No [place] Unknown Unknown 0.1 % 0.1 % 06-06 Latanya DAVID topical topical cream cream finasteride finasteride 2017-04 No [place] Unknown Unknown 5 mg tablet 5 mg tablet 06-06 Latanya DAVID Levemir Levemir 2017-04- No [place] Unknown Unknown FlexTouch FlexTouch 06-06 ,Latanya Woods [...]
--- OUTSIDE RECORDS SUMMARY | 2019-04-11 14:37 | XMS REPORT ---
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 [id number] with foot with foot ulcer ulcer Non-pressur Non-pressur Diagnosis Active Laura e chronic e chronic 1- [place] ulcer of ulcer of [id number] other part other part of right of right foot with foot with fat layer fat layer exposed exposed Non-pressur Non-pressur Diagnosis Active Laura e chronic e chronic 1- [place] ulcer of ulcer of [id number] other part other part of left of left foot with foot with fat layer fat layer exposed exposed Type 2 Type 2 Diagnosis Active 2018-04 Laura diabetes diabetes 0-10 [place] mellitus mellitus [id number] with other with other skin ulcer skin ulcer Non-pressur Non-pressur Diagnosis Active 2018-04 Laura e chronic e chronic 0-10 [place] ulcer of ulcer of [id number] other part other part of right of right lower leg lower leg with fat with fat layer layer exposed exposed 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- [place] mellitus mellitus [id number] with with diabetic diabetic peripheral peripheral angiopathy angiopathy without without gangrene gangrene 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 [id number] (chronic) (chronic) (peripheral (peripheral ) ) 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 disease disease [id number] with heart with heart failure failure Heart Heart Diagnosis Active Laura failure, failure, [place] unspecified unspecified [id number] 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 pectoris Chronic 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 pulmonary [id number] disease, disease, unspecified unspecified Paroxysmal Paroxysmal Diagnosis Active Laura atrial atrial [place] fibrillatio fibrillatio [id number] n n Anxiety Anxiety Diagnosis Active Laura disorder, disorder, [place] unspecified unspecified [id number] Unspecified Unspecified Diagnosis Active Laura osteoarthri osteoarthri [place] tis, tis, [id number] unspecified unspecified site site Irritable Irritable Diagnosis Active Laura bowel 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 [id number] without without diarrhea diarrhea Benign Benign Diagnosis Active Laura prostatic prostatic [place] hyperplasia hyperplasia [id number] without without lower lower urinary urinary tract tract symptoms symptoms Sleep Sleep Diagnosis Active Laura apnea, apnea, [place] unspecified unspecified [id number] Tremor, Tremor, Diagnosis Active Laura unspecified unspecified [place] [id number] Hypothyroid Hypothyroid Diagnosis Active Laura ism, ism, [place] unspecified unspecified [id number] Hyperlipide Hyperlipide Diagnosis Active Laura clemente, clemente, [place] unspecified unspecified [id number] 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 Laura (current) (current) [place] use of use of [id number] insulin insulin keno terminal operator correction Diagnosis Active Laura (current) (current) [place] use of use of [id number] anticoagula anticoagula nts nts 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 Laura (current) (current) [place] use of use of [id number] opiate opiate analgesic analgesic Presence of Presence of Diagnosis Active Laura coronary coronary [place] angioplasty angioplasty [id number] implant and implant and graft graft Personal Personal Diagnosis Active Laura history of history of [place] nicotine 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 dependence dependence Pain frequent Pain Mgmt Resolve 2017-042018-05-08 Roselyn pain d 0-10 08:50:00 (Radha) 11:15: [place] 00 [id number] Cardio edema Cardiovasc Resolve 2017-042018-02-20 Roselyn ular d 0-10 09:50:00 (Radha) 11:15: [place] [id number] Respiratory dyspnea Respirator Resolve 2017-042018-02-15 Roselyn present y d 0-10 10:20:00 (Radha) 11:15: [place] [id number] Endo/Edgard glucose Endo/Edgard Resolve 2017-042018-03-20 Roselyn testing d 0-10 12:30:00 (Radha) dependence 11:15: [place] 00 [id number] Endo/Edgard knowledge/s Endo/Edgard Resolve 2017-042018-03-06 Roselyn kill d 0-10 09:30:00 (Radha) deficit: pt 11:15: [place] 00 [id number] Endo/Edgard anti-coagul Endo/Edgard Resolve 2017-042018-03-20 Roselyn ation d 0-10 12:30:00 (Radha) therapy 11:15: [place] 00 [id number] Endo/Edgard diabetic Endo/Edgard Resolve 2017-042018-03-06 Roselyn foot care d 0-10 09:30:00 (Radha) 11:15: [place] [id number] Sensory impaired Sensory Resolve 2017-042018-03-22 Roselyn hearing d 0-10 09:55:00 (Radha) 11:15: [place] [id number] Integument pressure Integument Resolve 2017-042018-08-21 Roselyn ulcer d 0-10 12:45:00 (Radha) present 11:15: [place] [id number] Integument skin Integument Resolve 2017-042018-03-03 Roselyn integrity d 0-10 09:19:00 (Radha) risk 11:15: [place] [id number] Integument surgical Integument Resolve 2017-042018-03-03 Quality wound d 0-10 09:19:00 Realtime7 present 11:15: 00 Integument other wound Integument Resolve 2017-042018-03-03 Quality present d 0-10 09:19:00 Realtime7 11:15: 00 Elimination urinary Eliminatio Resolve 2017-042018-03-20 Roselyn incontinenc n d 0-10 12:30:00 (Radha) e 11:15: [place] [id number] Neuro confusion Neuro/Emot Resolve 2017-042018-03-22 Roselyn present ion d 0-10 09:55:00 (Radha) 11:15: [place] [id number] Neuro anxiety Neuro/Emot Resolve 2017-042018-03-22 Roselyn present ion d 0-10 09:55:00 (Radha) 11:15: [place] [id number] Neuro impaired Neuro/Emot Resolve 2017-042018-03-22 Roselyn decision-ma ion d 0-10 09:55:00 (Radha) pj 11:15: [place] [id number] Activity ADL Activity Resolve 2017-042018-03-22 Roselyn assistance d 0-10 09:55:00 (Radha) required 11:15: [place] [id number] Safety structural Safety Resolve 2017-042018-03-22 Roselyn barriers d 0-10 09:55:00 (Radha) present 11:15: [place] 00 [id number] Safety fall risk Safety Resolve 2017-042018-03-22 Roselyn factor d 0-10 09:55:00 (Rahda) present 11:15: [place] 00 [id number] Safety risk for Safety Resolve 2017-042018-03-22 Roselyn hospitaliza d 0-10 09:55:00 (Radha) tion 11:15: [place] [id number] Safety can be left Safety Resolve 2017-042018-03-22 Roselyn alone for d 0-10 09:55:00 (Radha) only short 11:15: [place] periods 00 [id number] Medication oral med Meds Resolve 2017-042018-02-06 Roselyn assistance d 0-10 09:15:00 (Radha) required 11:15: [place] [id number] Medication injectable Meds Resolve 2017-042018-02-06 Roselyn med d 0-10 09:15:00 (Radha) assistance 11:15: [place] required 00 [id number] Medication knowledge/s Meds Resolve 2017-042018-02-15 Roselyn kill d 0-10 10:20:00 (Radha) deficit: pt 11:15: [place] [id number] Medication potential Meds Resolve 2017-042018-02-15 Roselyn clinically d 0-10 10:20:00 (Radha) significant 11:15: [place] medication 00 [id number] issue Musculoskel transfer Musculoske Resolve 2017-042018-03-20 Roselyn etal assistance letal d 0-10 12:30:00 (Radha) required 11:15: [place] 00 [id number] Musculoskel requires Musculoske Resolve 2017-042018-03-20 Roselyn etal human letal d 0-10 12:30:00 (Radha) assist to 11:15: [place] leave home 00 [id number] Safety knowledge/s Safety Resolve 2017-042018-03-22 Laura kill d 0-12 09:55:00 [place] deficit: pt 10:00: [id number] 00 Respiratory knowledge/s Respirator Resolve 2017-042018-02-06 Laura kill y d 0-15 09:15:00 [place] deficit: cg 10:00: [id number] 00 Respiratory lung sounds Respirator Resolve 2017-042018-02-06 Laura deficit y d 0-15 09:15:00 [place] 10:00: [id number] 00 Sensory impaired Sensory Resolve 2017-042018-03-22 Quality verbal d 0-17 09:55:00 Realtime7 communicati 18:36: on 42 Musculoskel knowledge/s Musculoske Resolve 2017-042018-03-03 Laura etal kill letal d 0-24 09:19:00 [place] deficit: cg 09:45: [id number] 00 Nutrition knowledge/s Nutrition Resolve 2017-042018-03-03 Laura kill d 0-26 09:19:00 [place] deficit: pt 09:15: [id number] 00 Nutrition nutritional Nutrition Resolve 2017-042018-03-03 Laura restriction d 0-26 09:19:00 [place] s 09:15: [id number] 00 Elimination catheter Eliminatio Resolve 2017-042018-03-20 Laura present n d 0-26 12:30:00 [place] 09:15: [id number] 00 Elimination constipatio Eliminatio Resolve 2017-042018-03-20 Laura n n d 0-26 12:30:00 [place] 09:15: [id number] 00 Infection s/s of Infection Resolve 2017-042018-03-22 Laura infection d 0-31 09:55:00 [place] 09:30: [id number] 00 Endo/Edgard insulin Endo/Edgard Resolve 2017-042018-03-20 Laura admn d 04-22 12:30:00 [place] dependence 09:50: [id number] 00 Respiratory dyspnea Respirator Resolve 2017-042018-03-08 Laura present y d 04-24 09:20:00 [place] 10:07: [id number] 00 Safety cannot be Safety Resolve 2017-042018-03-22 Laura left alone d 04-24 09:55:00 [place] 10:07: [id number] 00 Cardio edema Cardiovasc Resolve 2017-042018-03-03 Laura ular d 04-26 09:19:00 [place] 09:51: [id number] 00 Respiratory Incentive Respirator Resolve 2017-042018-03-03 Laura Spirometer y d 04-26 09:19:00 [place] /Acapella 09:51: [id number] Device 00 treatments in home Endo/Edgard knowledge/s Endo/Edgard Resolve 2017-042018-03-20 Laura kill d 05-08 12:30:00 [place] deficit: pt 09:20: [id number] 00 Nutrition knowledge/s Nutrition Resolve 2017-042018-04-19 Laura kill d 05-08 09:45:00 [place] deficit: pt 09:20: [id number] 00 Nutrition nutritional Nutrition Resolve 2017-042018-04-19 Laura restriction d 05-08 09:45:00 [place] roe 09:20: [id number] 00 Endo/Edgard diabetic Endo/Edgard Resolve 2017-042018-03-20 Laura foot care d 05-14 12:30:00 [place] 09:20: [id number] 00 Pain frequent Pain Mgmt Unknown 2017-04 Laura pain 05-18 [place] 12:45: [id number] 00 Respiratory dyspnea Respirator Resolve 2017-042018-03-20 Laura present y d 05-18 12:30:00 [place] 12:45: [id number] 00 Integument pressure Integument Unknown 2017-04 Laura ulcer 05-18 [place] present 12:45: [id number] 00 Integument surgical Integument Resolve 2017-042018-03-24 Laura wound d 05-18 11:23:00 [place] present 12:45: [id number] 00 Endo/Edgard diabetic Endo/Edgard Resolve 2017-042018-03-24 Laura foot care d 05-23 11:23:00 [place] 09:55: [id number] 00 Elimination catheter Eliminatio Resolve 2017-042018-04-19 Laura present n d 05-23 09:45:00 [place] 09:55: [id number] 00 Safety risk for Safety Resolve 2017-042018-04-19 Laura hospitaliza d 05-25 09:45:00 [place] tion 11:23: [id number] 00 Safety can be left Safety Resolve 2017-042018-04-19 Laura alone for d 05-25 09:45:00 [place] only short 11:23: [id number] periods 00 Musculoskel knowledge/s Musculoske Resolve 2017-042018-03-29 Laura etal kill letal d 05-28 09:30:00 [place] deficit: cg 10:20: [id number] 00 Musculoskel requires Musculoske Resolve 2017-042018-04-12 Laura etal human letal d 05-28 09:45:00 [place] assist to 10:20: [id number] leave home 00 Endo/Edgard diabetic Endo/Edgard Resolve 2017-042018-04-19 Laura foot care d 05-30 09:45:00 [place] 09:30: [id number] 00 Elimination constipatio Eliminatio Resolve 2017-042018-04-12 Laura n n d 05-30 09:45:00 [place] 09:30: [id number] 00 Pain frequent Pain Mgmt Unknown 2017-04 Laura pain 06-06 [place] 09:45: [id number] 00 Endo/Edgard insulin Endo/Edgard Resolve 2017-042018-04-19 Laura admn d 06-06 09:45:00 [place] dependence 09:45: [id number] 00 Endo/Edgard anti-coagul Endo/Edgard Resolve 2017-042018-04-19 Laura ation d 06-06 09:45:00 [place] therapy 09:45: [id number] 00 Integument surgical Integument Resolve 2017-042018-04-05 Laura wound d 06-06 09:45:00 [place] present 09:45: [id number] 00 Integument skin Integument Resolve 2017-042018-04-05 Laura integrity d 06-06 09:45:00 [place] risk 09:45: [id number] 00 Integument pressure Integument Unknown 2017-04 Laura ulcer 06-06 [place] present 09:45: [id number] 00 Elimination UTI within Eliminatio Resolve 2017-042018-04-12 Laura past 14 n d 06-06 09:45:00 [place] days 09:45: [id number] 00 Activity ADL Activity Resolve 2017-042018-09-15 Laura assistance d 2- 10:35:00 [place] required 09:45: [id number] 00 Safety fall risk Safety Resolve 2017-042018-04-19 Laura factor d 2 09:45:00 [place] present 09:45: [id number] 00 Medication potential Meds Resolve 2017-042018-04-19 Laura clinically d 2 09:45:00 [place] significant 09:45: [id number] medication 00 issue Medication oral med Meds Resolve 2017-042018-04-05 Shari assistance d 06-06 09:45:00 Regeczi required 09:45: [id number] 00 Medication injectable Meds Resolve 2017-042018-08-09 Shari med d 06-06 09:20:00 Regeczi assistance 09:45: [id number] required 00 Musculoskel transfer Musculoske Resolve 2017-042018-04-12 Shari etal assistance letal d 06-06 09:45:00 Regeczi required 09:45: [id number] 00 Medication oral med Meds Resolve 2017-042018-04-19 Laura assistance d 2 09:45:00 [place] required 10:00: [id number] 00 Medication injectable Meds Unknown 2017-04 Laura med 06-08 [place] assistance 10:00: [id number] required 00 Sensory impaired Sensory Resolve 2017-042018-04-19 Nima verbal d 2- 09:45:00 Graves communicati 15:20: [id number] on 00 Sensory impaired Sensory Resolve 2017-042018-04-19 Nima hearing d 2 09:45:00 Graves 15:20: [id number] 00 Medication injectable Meds Unknown 2017-04 Nhung med - Pérez assistance 14:56: [id number] required 00 Medication injectable Meds Unknown Nima med 04-13 Graves assistance 13:50: [id number] required 00 Elimination constipatio Eliminatio Resolve 2018-04-19 Laura jarvis n d 04-14 09:45:00 [place] 09:28: [id number] 00 Medication injectable Meds Unknown Laura med 04-17 [place] assistance 10:00: [id number] required 00 Medication injectable Meds Resolve 2018-04-19 Laura med d -09 09:45:00 [place] assistance 09:45: [id number] required 00 Endo/Edgard anti-coagul Endo/Edgard Resolve 2018-04-26 Laura ation d -11 10:15:00 [place] therapy 09:45: [id number] 00 Nutrition knowledge/s Nutrition Resolve 2018-04-26 Laura kill d 04-21 10:15:00 [place] deficit: pt 09:45: [id number] 00 Nutrition nutritional Nutrition Resolve 2018-04-26 Laura restriction d 04-21 10:15:00 [place] s 09:45: [id number] 00 Elimination catheter Eliminatio Resolve 2018-04-26 Laura present n d 04-21 10:15:00 [place] 09:45: [id number] 00 Elimination constipatio Eliminatio Resolve 2018-04-26 Laura n n d 04-21 10:15:00 [place] 09:45: [id number] 00 Safety risk for Safety Resolve 2018-04-26 Laura hospitaliza d 04-21 10:15:00 [place] tion 09:45: [id number] 00 Safety can be left Safety Resolve 2018-04-26 Laura alone for d 04-21 10:15:00 [place] only short 09:45: [id number] periods 00 Sensory impaired Sensory Resolve 2018-04-26 Nima verbal d 1-11 10:15:00 Graves communicati 14:30: [id number] on 00 Sensory impaired Sensory Resolve 2018-04-26 Nima hearing d 1-11 10:15:00 [place] 14:30: [id number] 00 Sensory impaired Sensory Resolve 2018-04-28 Nima verbal d 1-17 10:20:00 Graves communicati 12:45: [id number] on 00 Sensory impaired Sensory Resolve 2018-04-28 Nima hearing d 1-17 10:20:00 [place] 12:45: [id number] 00 Endo/Edgard anti-coagul Endo/Edgard Resolve 2018-05-24 Laura ation d 18 12:30:00 [place] therapy 10:20: [id number] 00 Safety risk for Safety Active Laura hospitaliza 1-18 [place] tion 10:20: [id number] 00 Safety can be left Safety Resolve 2018-05-10 Laura alone for d 1- 13:45:00 [place] only short 10:10: [id number] periods 00 Sensory impaired Sensory Resolve 2018-05-10 Jia hearing d 05-05 13:45:00 Hillebrand 13:30: t 00 [id number] Sensory impaired Sensory Resolve 2018-05-10 Jia verbal d 05-05 13:45:00 Hillebrand communicati 13:30: t on [id number] Elimination catheter Eliminatio Resolve 2018-05-08 Wandy present n d 05-08 08:50:00 ,Kaylee 08:50: 00 Elimination constipatio Eliminatio Resolve 2018-06-28 Wandy n n d 05-08 09:45:00 ,Kaylee 08:50: 00 Safety cannot be Safety Resolve 2018-05-10 Laura left alone d 05-08 13:45:00 [place] 08:50: [id number] 00 Elimination catheter Eliminatio Resolve 2018-05-12 Shari present n d 2 09:30:00 Regeczi 09:30: [id number] 00 Safety can be left Safety Resolve 2018-05-17 Laura alone for d 2- 10:00:00 [place] only short 09:30: [id number] Elimination urinary Eliminatio Resolve 2018-05-15 Laura incontinenc n d 2- 08:45:00 [place] e 08:45: [id number] 00 Pain frequent Pain Mgmt Resolve 2018-05-17 Laura pain d 2-06 10:00:00 [place] 10:00: [id number] 00 Respiratory lung sounds Respirator Resolve 2018-05-22 Laura deficit y d 2-06 10:44:00 [place] 10:00: [id number] 00 Integument pressure Integument Unknown Laura ulcer 2- [place] present 10:00: [id number] 00 Integument skin Integument Resolve 2018-05-17 Laura integrity d 2-06 10:00:00 [place] risk 10:00: [id number] 00 Integument surgical Integument Resolve 2018-05-17 Laura wound d 2-06 10:00:00 [place] present 10:00: [id number] 00 Activity ADL Activity Unknown Laura assistance 2- [place] required 10:00: [id number] 00 Activity self-care Activity Resolve 2018-05-19 Laura deficit d 2-06 11:15:00 [place] 10:00: [id number] 00 Safety fall risk Safety Resolve 2018-05-19 Laura factor d 2- 11:15:00 [place] present 10:00: [id number] 00 Elimination urinary Eliminatio Resolve 2018-05-24 [place] incontinenc n d 2-08 12:30:00 ,Kaylee e 11:15: 00 Safety can be left Safety Resolve 2018-05-24 Laura alone for d 2- 12:30:00 [place] only short 11:15: [id number] 00 Safety fall risk Safety Resolve 2018-05-24 Sonia White factor d 2-12 12:30:00 present 09:48: 41 Endo/Edgard glucose Endo/Edgard Resolve 2018-05-24 Laura tolerance d 2-13 12:30:00 [place] problem 12:30: [id number] 00 Respiratory Incentive Respirator Resolve 2018-06-07 Laura Spirometer y d 2-15 12:00:00 [place] /Acapella 13:40: [id number] Device 00 treatments in home Endo/Edgard anti-coagul Endo/Edgard Resolve 2018-06-12 Laura ation d 2-15 09:30:00 [place] therapy 13:40: [id number] 00 Elimination urinary Eliminatio Resolve 2018-05-26 Laura incontinenc n d 2-15 13:40:00 [place] e 13:40: [id number] 00 Safety can be left Safety Resolve 2018-06-07 Laura alone for d 2-15 12:00:00 [place] only short 13:40: [id number] periods 00 Endo/Edgard glucose Endo/Edgard Resolve 2018-06-07 Cherrise tolerance d 06-02 12:00:00 Trixie problem 10:15: [id number] 00 Endo/Edgard insulin Endo/Edgard Resolve 2018-06-12 Cherrise admn d 06-02 09:30:00 [place] dependence 10:15: [id number] 00 Endo/Edgard glucose Endo/Edgard Resolve 2018-06-12 Cherrise testing d 06-02 09:30:00 [place] dependence 10:15: [id number] 00 Safety fall risk Safety Resolve 2018-06-07 Cherrise factor d 06-02 12:00:00 [place] present 10:15: [id number] 00 Musculoskel transfer Musculoske Active Cherrise etal assistance letal 06-02 Trixie required 10:15: [id number] 00 Musculoskel requires Musculoske Active Cherrise etal human letal 06-02 Triixe assist to 10:15: [id number] leave home 00 Elimination urinary Eliminatio Resolve 2018-06-07 Laura incontinenc n d 06-05 12:00:00 [place] e 12:30: [id number] 00 Activity self-care Activity Resolve 2018-08-14 Laura deficit d 06-05 12:10:00 [place] 12:30: [id number] 00 Elimination urinary Eliminatio Resolve 2018-06-12 Laura incontinenc n d 06-09 09:30:00 [place] e 09:13: [id number] 00 Safety can be left Safety Resolve 2018-06-12 Laura alone for d 06-09 09:30:00 [place] only short 09:13: [id number] periods 00 Respiratory Incentive Respirator Resolve 2018-06-14 Laura Spirometer y d 06-12 09:30:00 [place] /Acapella 09:30: [id number] Device 00 treatments in home Endo/Edgard anti-coagul Endo/Edgard Resolve 2018-06-30 Laura ation d 06-14 09:19:00 [place] therapy 09:30: [id number] 00 Safety can be left Safety Resolve 2018-06-30 Laura alone for d 3- 09:19:00 [place] only short 09:30: [id number] periods 00 Elimination urinary Eliminatio Resolve 2018-06-19 Laura incontinenc n d 3-08 13:45:00 [place] e 09:45: [id number] 00 Elimination urinary Eliminatio Resolve 2018-06-28 Laura incontinenc n d 3- 09:45:00 [place] e 13:15: [id number] 00 Elimination constipatio Eliminatio Resolve 2018-07-14 Laura n n d 3 09:20:00 [place] 09:19: [id number] 00 Endo/Edgard anti-coagul Endo/Edgard Resolve 2018-07-14 Laura ation d 3 09:20:00 [place] therapy 12:49: [id number] 00 Elimination urinary Eliminatio Resolve 2018-07-14 Laura incontinenc n d 07-03 09:20:00 [place] e 12:49: [id number] 00 Safety can be left Safety Resolve 2018-08-18 Laura alone for d 3- 12:05:00 [place] only short 12:50: [id number] periods 00 Endo/Edgard glucose Endo/Edgard Resolve 2018-07-14 Shi testing d 07-10 09:20:00 Sorin, dependence 12:30: [id number] 00 Pain frequent Pain Mgmt Resolve 2018-07-14 Laura pain d 4 09:20:00 [place] 09:20: [id number] 00 Integument surgical Integument Resolve 2018-08-13 Laura wound d 4-05 12:50:00 [place] present 09:20: [id number] 00 Integument skin Integument Resolve 2018-08-13 Laura integrity d 4-05 12:50:00 [place] risk 09:20: [id number] 00 Safety fall risk Safety Resolve 2018-08-18 Laura factor d 4-05 12:05:00 [place] present 09:20: [id number] 00 Endo/Edgard anti-coagul Endo/Edgard Resolve 2018-08-14 Laura ation d 07-17 12:10:00 [place] therapy 13:00: [id number] 00 Elimination urinary Eliminatio Resolve 2018-07-21 Laura incontinenc n d 07-17 09:25:00 [place] e 13:00: [id number] 00 Activity ADL Activity Unknown Laura assistance 07-17 [place] required 13:00: [id number] 00 Elimination urinary Eliminatio Resolve 2018-08-14 Laura incontinenc n d 07-24 12:10:00 [place] e 09:27: [id number] 00 Pain frequent Pain Mgmt Resolve 2018 Laura pain d 08-07 09:20:00 [place] 12:45: [id number] 00 Cardio edema Cardiovasc Resolve 2018 Laura ular d 08-07 09:20:00 [place] 12:45: [id number] 00 Respiratory dyspnea Respirator Resolve 2018 Laura present y d 08-07 09:20:00 [place] 12:45: [id number] 00 Endo/Edgard diabetic Endo/Edgard Resolve 2018-08-14 Laura foot care d 08-07 12:10:00 [place] 12:45: [id number] 00 Nutrition knowledge/s Nutrition Active Laura kill 08-07 [place] deficit: pt 12:45: [id number] 00 Nutrition nutritional Nutrition Active Laura restriction 08-07 [place] s 12:45: [id number] 00 Neuro confusion Neuro/Emot Resolve 2018-08-14 Laura present ion d 08-07 12:10:00 [place] 12:45: [id number] 00 Medication oral med Meds Resolve 2018 Laura assistance d 08-07 09:20:00 [place] required 12:45: [id number] 00 Medication injectable Meds Resolve 2018 Jia med d 08-07 09:20:00 Jerardo assistance 12:45: [id number] required 00 Cardio edema Cardiovasc Resolve 2018-08-23 Laura ular d 08-13 11:15:00 [place] 12:50: [id number] 00 Respiratory dyspnea Respirator Resolve 2018-08-14 Laura present y d 08-13 12:10:00 [place] 12:50: [id number] 00 Endo/Edgard anti-coagul Endo/Edgard Resolve 2018-08-28 Laura ation d 08-16 12:00:00 [place] therapy 12:15: [id number] 00 Elimination urinary Eliminatio Resolve 2018-08-21 Laura incontinenc n d 08-16 12:45:00 [place] e 12:15: [id number] 00 Sensory impaired Sensory Resolve 2018-08-21 Krystyna verbal d 08-17 12:45:00 [place] communicati 14:30: [id number] on 00 Sensory impaired Sensory Resolve 2018-08-21 Krystyna hearing d 08-17 12:45:00 [place] 14:30: [id number] 00 Social financial LILLIAN: Resolve 2019-02-16 Krystyna Services resource Social d 08-17 13:45:00 [place] deficit Services 14:30: [id number] 00 Social knowledge/s LILLIAN: Resolve 2018-08-17 Krystyna Services kill Social d 08-17 14:30:00 [place] deficit - Services 14:30: [id number] pt 00 Social knowledge/s LILLIAN: Resolve 2018-08-17 Krystyna Services kill Social d 08-17 14:30:00 [place] deficit - Services 14:30: [id number] cg 00 Safety can be left Safety Resolve 2018-09-07 Laura alone for d 08-23 10:00:00 [place] only short 11:15: [id number] periods 00 Social knowledge/s LILLIAN: Active Laura Services kill Social 08-23 [place] deficit - Services 11:15: [id number] pt 00 Elimination urinary Eliminatio Resolve 2018-09-07 Laura incontinenc n d 08-25 10:00:00 [place] e 11:45: [id number] 00 Sensory impaired Sensory Resolve 2018-09-07 Krystyna verbal d 09-01 10:00:00 [place] communicati 14:45: [id number] on 00 Sensory impaired Sensory Resolve 2018-09-07 Krystyna hearing d 09-01 10:00:00 [facility] [id number] 00 Social knowledge/s LILLIAN: Active Krystyna Services kill Social 09-01 [facility] deficit - Services 14:45: [id number] cg 00 Respiratory dyspnea Respirator Resolve 2018-09-15 Laura present y d 09-07 10:35:00 [place] 10:00: [id number] 00 Pain frequent Pain Mgmt Resolve 2018-09-11 Laura pain d 09-11 11:50:00 [place] 11:50: [id number] 00 Cardio hypertensio Cardiovasc Resolve 2018-09-11 Laura n ular d 09-11 11:50:00 [place] 11:50: [id number] 00 Integument pressure Integument Resolve 2018-09-15 Laura ulcer d 09-11 10:35:00 Jean[place]Cla[place] present 11:50: [id number] 00 Integument surgical Integument Resolve 2018-09-15 Laura wound d 09-11 10:35:00 [place] present 11:50: [id number] 00 Integument skin Integument Resolve 2018-09-15 Laura integrity d 09-11 10:35:00 Jean[place]Claude risk 11:50: [id number] 00 Elimination urinary Eliminatio Resolve 2018-09-11 Laura incontinenc n d 09-11 11:50:00 [place] e 11:50: [id number] 00 Activity ADL Activity Unknown Laura assistance 09-11 Jean[place]Claude required 11:50: [id number] 00 Activity self-care Activity Resolve 2018-09-15 Laura deficit d 09-11 10:35:00 [place] 11:50: [id number] 00 Safety fall risk Safety Resolve 2018-09-15 Laura factor d 09-11 10:35:00 [place] present 11:50: [id number] 00 Safety can be left Safety Resolve 2018-09-15 Laura alone for d 09-11 10:35:00 [place] only short 11:50: [id number] periods 00 Endo/Edgard anti-coagul Endo/Edgard Resolve 2018-09-18 Laura ation d 6-07 12:20:00 [place] therapy 10:35: [id number] 00 Elimination urinary Eliminatio Resolve 2018-09-18 Laura incontinenc n d 09-15 12:20:00 [place] e 10:35: [id number] 00 Elimination constipatio Eliminatio Resolve 2018-09-18 Laura n n d 09-15 12:20:00 [place] 10:35: [id number] 00 Safety can be left Safety Resolve 2018-09-25 Laura alone for d 09-18 11:45:00 [place] only short 12:20: [id number] periods 00 Cardio hypertensio Cardiovasc Resolve 2018-09-21 Laura n ular d 09-21 11:45:00 [place] 11:45: [id number] 00 Endo/Edgard anti-coagul Endo/Edgard Resolve 2018-09-25 Laura ation d 09-21 11:45:00 [place] therapy 11:45: [id number] 00 Cardio hypertensio Cardiovasc Resolve 2018-10-02 Laura n ular d 09-25 12:05:00 [place] 11:45: [id number] 00 Elimination urinary Eliminatio Resolve 2018-10-02 Laura incontinenc n d 09-25 12:05:00 [place] e 11:45: [id number] 00 Endo/Edgard anti-coagul Endo/Egdard Resolve 2018-10-02 Laura ation d 09-29 12:05:00 [place] therapy 09:45: [id number] 00 Safety can be left Safety Resolve 2018-10-02 Laura alone for d 09-29 12:05:00 [place] only short 09:45: [id number] periods 00 Endo/Edgard anti-coagul Endo/Edgard Resolve 2018-10-27 Laura ation d 10-04 11:30:00 [place] therapy 10:10: [id number] 00 Elimination urinary Eliminatio Resolve 2018-10-06 Laura incontinenc n d 10-04 09:10:00 [place] e 10:10: [id number] 00 Elimination constipatio Eliminatio Resolve 2018-10-06 Laura n n d 10-04 09:10:00 [place] 10:10: [id number] 00 Safety can be left Safety Resolve 2018-10-06 Laura alone for d 10-04 09:10:00 [place] only short 10:10: [id number] periods 00 Sensory impaired Sensory Resolve 2018-10-23 Krystyna verbal d 6 11:56:00 [place] communicati 15:00: [id number] on 00 Sensory impaired Sensory Resolve 2018-10-23 Krystyna hearing d 10-05 11:56:00 [place] 15:00: [id number] 00 Elimination urinary Eliminatio Resolve 2018-10-27 Laura incontinenc n d 10-09 11:30:00 [place] e 12:15: [id number] 00 Elimination bloody Eliminatio Resolve 2018-10-27 Laura urine n d 10-09 11:30:00 [place] 12:15: [id number] 00 Safety can be left Safety Resolve 2018-10-23 Laura alone for d 10-09 11:56:00 [place] only short 12:15: [id number] Elimination constipatio Eliminatio Resolve 2018-12-08 Laura n n d 10-16 14:00:00 [place] 12:35: [id number] 00 Cardio edema Cardiovasc Resolve 2018-10-27 Laura ular d 10-20 11:30:00 [place] 11:35: [id number] 00 Endo/Edgard knowledge/s Endo/Edgard Resolve 2018-10-27 Laura kill d 10-20 11:30:00 [place] deficit: pt 11:35: [id number] 00 Sensory impaired Sensory Unknown Jonatan verbal 7-15 Demarco, communicati 13:30: PT on [id number] Sensory impaired Sensory Unknown Jonatan hearing 7-15 Demarco, 13:30: PT 00 [id number] Safety can be left Safety Resolve 2018-10-27 Laura alone for d 7- 11:30:00 [place]Cla[place] only short 10:35: [id number] periods 00 Endo/Edgard glucose Endo/Edgard Resolve 2018-12-11 Cherrise tolerance d 10-30 09:30:00 Trixie problem 11:55: [id number] 00 Endo/Edgard insulin Endo/Edgard Resolve 2018-12-13 Cherrise admn d 10-30 11:10:00 [place] dependence 11:55: [id number] 00 Endo/Edgard glucose Endo/Edgard Resolve 2018-12-13 Cherrise testing d 10-30 11:10:00 [place] dependence 11:55: [id number] 00 Endo/Edgard knowledge/s Endo/Edgard Resolve 2018-12-08 Cherrise kill d 10-30 14:00:00 [place] deficit: pt 11:55: [id number] 00 Elimination urinary Eliminatio Resolve 2018-12-08 Cherrise urgency n d 10-30 14:00:00 Trixie 11:55: [id number] 00 Neuro depressive Neuro/Emot Resolve 2018-12-08 Cherrise feelings ion d 10-30 14:00:00 [place] present 11:55: [id number] 00 Neuro impaired Neuro/Emot Resolve 2018-12-08 Cherrise decision-ma ion d 10-30 14:00:00 [place] pj 11:55: [id number] 00 Safety fall risk Safety Resolve 2018-12-06 Cherrise factor d 10-30 13:05:00 [place] present 11:55: [id number] 00 Endo/Edgard anti-coagul Endo/Edgard Resolve 2018-12-13 Shi ation d 11-01 11:10:00 Sorin, therapy 12:30: [id number] 00 Respiratory Incentive Respirator Resolve 2018-11-29 Cherrise Spirometer y d 11-03 10:15:00 Trixie /Acapella 10:25: [id number] Device 00 treatments in home Elimination urinary Eliminatio Resolve 2018-12-08 Cherrise frequency n d 11-03 14:00:00 [place] 10:25: [id number] 00 Respiratory lung sounds Respirator Resolve 2018-11-29 Cherrise deficit y d 11-06 10:15:00 Trixie 12:05: [id number] 00 Neuro memory Neuro/Emot Resolve 2018-12-08 Cherrise deficit ion d 7-31 14:00:00 [place] needing 10:30: [id number] supervision 00 Pain frequent Pain Mgmt Resolve 2018-12-06 Shi pain d 11-10 13:05:00 Sorin, 11:00: [id number] 00 Integument pressure Integument Active Shi ulcer 11-10 Sorin, present 11:00: [id number] 00 Integument surgical Integument Active Shi wound 11-10 Sorin, present 11:00: [id number] 00 Integument skin Integument Active Shi integrity 11-10 Sorin, risk 11:00: [id number] 00 Elimination urinary Eliminatio Resolve 2018-12-08 Shi incontinenc n d 11-10 14:00:00 Sorin, e 11:00: [id number] 00 Activity self-care Activity Resolve 2018-11-29 Shi deficit d 11-10 10:15:00 Sorin, 11:00: [id number] 00 Activity ADL Activity Resolve 2018-12-08 Shi assistance d 11-10 14:00:00 Sorin, required 11:00: [id number] 00 Pain knowledge/s Pain Mgmt Resolve 2018-12-06 Krystyna kill d 11-16 13:05:00 [place] deficit: cg 15:15: [id number] 00 Respiratory knowledge/s Respirator Resolve 2018-11-29 Krystyna kill y d 11-16 10:15:00 [place] deficit: cg 15:15: [id number] 00 Integument knowledge/s Integument Active 2018- Krystyna kill 11-16 [place] deficit: cg 15:15: [id number] 00 Elimination knowledge/s Eliminatio Resolve 2018-12-08 Krystyna kill n d 11-16 14:00:00 [place] deficit: cg 15:15: [id number] 00 Safety knowledge/s Safety Resolve 2018-12-06 Krystyna kill d 11-16 13:05:00 [place] deficit: cg 15:15: [id number] 00 Cardio hypertensio Cardiovasc Resolve 2018-11-29 Lenny ruiz d 11-17 10:15:00 Trixie 10:45: [id number] 00 Safety can be left Safety Resolve 2018-12-08 Shi alone for d 11-22 14:00:00 nancy Rowell 11:00: [id number] periods 00 Sensory impaired Sensory Resolve 2018-12-08 Laura verbal d 11-24 14:00:00 Jean[place]Claude communicati 09:30: [id number] on Sensory impaired Sensory Resolve 2018-12-08 Laura hearing d 11-24 14:00:00 [place] 09:30: [id number] 00 Respiratory knowledge/s Respirator Resolve 2018-12-08 Laura kill y d 12-01 14:00:00 [place] deficit: cg 09:30: [id number] 00 Sensory impaired Sensory Unknown Krystyna verbal 12-08 [place] communicati 15:00: [id number] on Sensory impaired Sensory Unknown Krystyna hearing 12-08 [place] 15:00: [id number] 00 Respiratory knowledge/s Respirator Resolve 2018-12-13 Laura kill y d 12-11 11:10:00 [place] deficit: cg 09:30: [id number] 00 Endo/Edgard knowledge/s Endo/Edgard Resolve 2018-12-13 Laura kill d 12-11 11:10:00 [place] deficit: pt 09:30: [id number] 00 Elimination urinary Eliminatio Resolve 2018-12-15 Laura incontinenc n d 12-11 13:10:00 [place] e 09:30: [id number] 00 Safety can be left Safety Resolve 2018-12-15 Laura alone for d 12-11 13:10:00 [place] only short 09:30: [id number] 00 Endo/Edgard knowledge/s Endo/Edgard Resolve 2019-01-05 Laura kill d 12-15 11:00:00 [place] deficit: pt 13:10: [id number] 00 Endo/Edgard anti-coagul Endo/Edgard Resolve 2019-01-05 Laura ation d 12-15 11:00:00 [place] therapy 13:10: [id number] 00 Elimination urinary Eliminatio Resolve 2018-12-27 Laura incontinenc n d 12-18 09:20:00 [place] e 12:10: [id number] 00 Safety can be left Safety Resolve 2019-01-05 Laura alone for d 12-18 11:00:00 [place] only short 12:10: [id number] periods 00 Elimination constipatio Eliminatio Resolve 2019-01-05 Laura n n d 12-20 11:00:00 [place] 12:15: [id number] 00 Pain frequent Pain Mgmt Resolve 2019-01-15 Laura pain d 12-27 12:30:00 [place] 09:20: [id number] 00 Respiratory dyspnea Respirator Resolve 2019-01-05 Laura present y d 12-27 11:00:00 [place] 09:20: [id number] 00 Endo/Edgard diabetic Endo/Edgard Resolve 2019-01-05 Laura foot care d 12-27 11:00:00 Jean[place] 09:20: [id number] 00 Elimination diarrhea Eliminatio Resolve 2019-01-05 Laura n d 12-27 11:00:00 Jean[place] 09:20: [id number] 00 Neuro confusion Neuro/Emot Resolve 2019-01-05 Laura present ion d 12-27 11:00:00 [place] 09:20: [id number] 00 Neuro anxiety Neuro/Emot Resolve 2019-01-05 Laura present ion d 12-27 11:00:00 [place] 09:20: [id number] 00 Activity ADL Activity Resolve 2019-01-05 Laura assistance d 12-27 11:00:00 Jean[place] required 09:20: [id number] 00 Activity self-care Activity Resolve 2019-01-05 Laura deficit d 12-27 11:00:00 Jean[place] 09:20: [id number] 00 Safety fall risk Safety Resolve 2019-01-05 Laura factor d 9-18 11:00:00 [place] present 09:20: [id number] 00 Medication potential Meds Resolve 2019-01-05 Laura clinically d 9-18 11:00:00 [place] significant 09:20: [id number] medication 00 issue Elimination urinary Eliminatio Resolve 2019-01-05 Laura incontinenc n d 920 11:00:00 [place] e 11:20: [id number] 00 Endo/Edgard knowledge/s Endo/Edgard Resolve 2019-01-10 Laura kill d 01-08 10:00:00 [place] deficit: pt 11:30: [id number] 00 Endo/Edgard anti-coagul Endo/Edgard Resolve 2019-01-10 Laura ation d 01-08 10:00:00 [place] therapy 11:30: [id number] 00 Elimination urinary Eliminatio Resolve 2019-01-15 Laura incontinenc n d 01-08 12:30:00 [place] e 11:30: [id number] 00 Safety can be left Safety Resolve 2019-02-16 Laura alone for d 01-08 12:00:00 [place] only short 11:30: [id number] periods 00 Respiratory dyspnea Respirator Resolve 2018-042019-01-26 Laura present y d 0-02 10:00:00 [place] 10:00: [id number] 00 Activity ADL Activity Resolve 2018-042019-01-12 Laura assistance d 0-02 11:30:00 [place] required 10:00: [id number] 00 Activity self-care Activity Resolve 2018-042019-01-12 Laura deficit d 0-02 11:30:00 [place] 10:00: [id number] 00 Safety fall risk Safety Resolve 2018-042019-01-12 Laura factor d 0-02 11:30:00 [place] present 10:00: [id number] 00 Medication injectable Meds Resolve 2018-042019-01-17 Laura med d 0-02 09:45:00 [place] assistance 10:00: [id number] required 00 Endo/Edgard knowledge/s Endo/Edgard Resolve 2018-042019-01-15 Laura kill d 0-04 12:30:00 [place] deficit: pt 11:30: [id number] 00 Endo/Edgard anti-coagul Endo/Edgard Resolve 2018-042019-01-15 Laura ation d 0-04 12:30:00 [place] therapy 11:30: [id number] 00 Elimination constipatio Eliminatio Resolve 2018-042019-01-15 Laura n n d 0-04 12:30:00 [place] 11:30: [id number] 00 Sensory impaired Sensory Resolve 2018-042019-01-15 Krystyna verbal d 0-04 12:30:00 [place] communicati 15:30: [id number] on 00 Sensory impaired Sensory Resolve 2018-042019-01-15 Krystyna hearing d 0-04 12:30:00 [place] 15:30: [id number] 00 Infection s/s of Infection Resolve 2018-042019-03-09 Laura infection d 0-07 11:00:00 [place] 12:30: [id number] 00 Sensory impaired Sensory Resolve 2018-042019-01-22 Jonatan verbal d 0-08 11:00:00 ambrosio Pal 13:00: PT on [id number] Sensory impaired Sensory Resolve 2018-042019-01-22 Jonatan hearing d 0-08 11:00:00 Demarco, 13:00: PT 00 [id number] Endo/Edgard knowledge/s Endo/Edgard Resolve 2018-042019-02-07 Laura kill d 0-09 11:20:00 [place] deficit: pt 09:45: [id number] 00 Endo/Edgard anti-coagul Endo/Edgard Resolve 2018-042019-02-07 Laura ation d 0-09 11:20:00 [place] therapy 09:45: [id number] 00 Elimination urinary Eliminatio Resolve 2018-042019-02-02 Laura incontinenc n d 0-09 11:30:00 [place] e 09:45: [id number] 00 Elimination constipatio Eliminatio Resolve 2018-042019-02-02 Laura n n d 0-16 11:30:00 [place] 10:00: [id number] 00 Sensory impaired Sensory Resolve 2018-042019-01-31 Jonatan verbal d 0-17 11:10:00 ambrosio Pal 15:00: PT on [id number] Sensory impaired Sensory Resolve 2019-1 2019-01-31 Jonatan hearing d 0-17 11:10:00 Demarco, 15:00: PT 00 [id number] Pain frequent Pain Mgmt Resolve 2018-042019-02-16 Jonatan pain d 0-23 12:00:00 Demarco, 13:00: PT 00 [id number] Sensory impaired Sensory Unknown 2018-04 Jonatan verbal 0-23 Demarco, communicati 13:00: PT on 00 [id number] Sensory impaired Sensory Unknown 2018-04 Jonatan hearing 0-23 Demarco, 13:00: PT 00 [id number] Respiratory dyspnea Respirator Resolve 2018-042019-02-07 Laura present y d 0-25 11:20:00 [place] 11:30: [id number] 00 Elimination urinary Eliminatio Resolve 2018-042019-02-07 Laura incontinenc n d 0-28 11:20:00 [place] e 12:40: [id number] 00 Endo/Edgard knowledge/s Endo/Edgard Resolve 2018-042019-02-19 Laura kill d 04-11 12:40:00 [place] deficit: pt 12:30: [id number] 00 Endo/Edgard anti-coagul Endo/Edgard Resolve 2018-042019-02-19 Laura ation d 04-11 12:40:00 [place] therapy 12:30: [id number] 00 Elimination urinary Eliminatio Resolve 2018-042019-02-16 Laura incontinenc n d 04-11 12:00:00 [place] e 12:30: [id number] 00 Medication potential Meds Resolve 2018-042019-02-24 Laura clinically d 1 09:45:00 [place] significant 12:20: [id number] medication 00 issue Elimination constipatio Eliminatio Resolve 2018-042019-02-16 Laura n n d 04-16 12:00:00 [place] 11:20: [id number] 00 Elimination urinary Eliminatio Resolve 2018-042019-02-24 Laura incontinenc n d 04-21 09:45:00 [place] e 12:40: [id number] 00 Safety can be left Safety Resolve 2018-042019-02-24 Laura alone for d 04-21 09:45:00 Jean[place]Cla[place] only short 12:40: [id number] periods 00 Endo/Edgard knowledge/s Endo/Edgard Resolve 2018-042019-02-24 Laura kill d 1-13 09:45:00 [place] deficit: pt 12:05: [id number] 00 Endo/Edgard anti-coagul Endo/Edgadr Resolve 2018-042019-02-24 Laura ation d 1- 09:45:00 Jean[place] therapy 12:05: [id number] 00 Sensory impaired Sensory Resolve 2018-042019-02-26 Laura verbal d 04-26 13:20:00 Jean[place]Cla[place] communicati 09:45: [id number] on 00 Sensory impaired Sensory Resolve 2018-042019-02-26 Laura hearing d 16 13:20:00 Jean[place] 09:45: [id number] 00 Endo/Edgard knowledge/s Endo/Edgard Resolve 2018-042019-02-28 Laura kill d 04-28 11:15:00 [place] deficit: pt 13:20: [id number] 00 Endo/Edgard anti-coagul Endo/Edgard Resolve 2018-042019-02-28 Laura ation d 04-28 11:15:00 [place] therapy 13:20: [id number] 00 Elimination urinary Eliminatio Resolve 2018-042019-03-09 Laura incontinenc n d 04-28 11:00:00 [place] e 13:20: [id number] 00 Safety can be left Safety Resolve 2018-042019-03-05 Laura alone for d 04-28 12:45:00 [place] only short 13:20: [id number] periods 00 Endo/Edgard knowledge/s Endo/Edgard Resolve 2018-042019-03-09 Laura kill d 05-05 11:00:00 [place] deficit: pt 12:45: [id number] 00 Endo/Edgard anti-coagul Endo/Edgard Resolve 2018-042019-03-09 Laura ation d 05-05 11:00:00 [place] therapy 12:45: [id number] 00 Safety can be left Safety Resolve 2018-042019-03-09 Laura alone for d 05-07 11:00:00 [place] only short 11:25: [id number] periods 00 Sensory impaired Sensory Resolve 2018-042019-03-12 Krystyna verbal d 05-09 11:15:00 [place] communicati 12:00: [id number] on 00 Sensory impaired Sensory Resolve 2018-042019-03-12 Krystyna hearing d 05-09 11:15:00 [facility] 12:00: [id number] 00 Social financial LILLIAN: Active 2018-04 Krystyna Services resource Social 05-09 [facility] deficit Services 12:00: [id number] 00 Respiratory dyspnea Respirator Resolve 2018-042019-03-14 Laura present y d 05-13 10:30:00 Jean[place]Claude 11:15: [id number] 00 Endo/Edgard knowledge/s Endo/Edgard Active 2018-04 Laura kill 05-13 [place] deficit: pt 11:15: [id number] 00 Endo/Edgard anti-coagul Endo/Edgard Active 2018-04 Laura ation 05-13 Jean-Claude therapy 11:15: [id number] 00 Elimination urinary Eliminatio Resolve 2018-042019-03-14 Laura incontinenc n d 05-13 10:30:00 [place] e 11:15: [id number] 00 Activity ADL Activity Resolve 2018-042019-03-14 Laura assistance d 05-13 10:30:00 Jean[place] required 11:15: [id number] 00 Activity self-care Activity Resolve 2018-042019-03-14 Laura deficit d 05-13 10:30:00 Jean[place] 11:15: [id number] 00 Safety fall risk Safety Resolve 2018-042019-03-14 Laura factor d 05-13 10:30:00 [place] present 11:15: [id number] 00 Safety can be left Safety Resolve 2018-042019-03-14 Laura alone for d - 10:30:00 Jean[place] only short 11:15: [id number] periods 00 Medication injectable Meds Resolve 2018-042019-03-12 Laura med d 2- 11:15:00 [place] assistance 11:15: [id number] required 00 Safety can be left Safety Resolve 2018-042019-03-19 Laura alone for d 05-17 11:40:00 Jean[place] only short 09:15: [id number] periods 00 Elimination urinary Eliminatio Active 2018-04 Laura incontinenc n - Jean-Claude e 11:40: [id number] 00 Safety can be left Safety Resolve 2018-042019-03-26 Laura alone for d 2- 11:00:00 [place] only short 11:30: [id number] periods 00 Safety can be left Safety Active 2018-04 Laura alone for 2-18 Jean-Claude only short 10:30: [id number] periods 00 Allergies, Adverse Reactions, Alerts Allergy Name Allergy Status Severity Reaction(s) Onset Inactive Treating Comments Type Date Date Clinician hienanajyothi Unknown Active Unknown Reaction 2017-04 Roselyn Unknown 0-10 (Radha) Nithin [id number] keflex Unknown Active Unknown Reaction 2017-04 Roselyn Unknown 0-10 (Radha) Nithin [id number] nuts Unknown Active Unknown Reaction 2017-04 Roselyn Unknown 0-10 (Radha) Nithin [id number] Cipro Medication Active Unknown Reaction 2017-04 Sonia White Name ID Unknown 0-10 metronidazol Base Active Unknown Nausea and 2017-04 Roselyn e Ingredient vomiting 2-20 Guidellcory [id number] Medications Ordered Filled Start Stop Current Ordering [...] 2 tabs Unknown 8.6 mg-50 8.6 mg-50 MDJamie mg tablet mg tablet Metanx Metanx No Shallish 1 Unknown (algal oil) (algal oil) ,Jamie capsule 3 mg-35 3 mg-35 mg-2 mg-2 mg-90.314 mg-90.314 mg capsule mg capsule ipratropium ipratropium No Shallish 1 puff Unknown 20 20 MDJamie mcg-albuter mcg-albuter ol 100 ol 100 mcg/actuati mcg/actuati on mist for on mist for inhalation inhalation Lantus Lantus No Shallish 38 Unknown AislinnostJamie Llanos MD units U-100 U-100 Insulin 100 Insulin 100 unit/mL (3 unit/mL (3 mL) mL) subcutaneou subcutaneou s pen s pen acetaminoph acetaminoph No Shallish 2 tabs Unknown en 325 mg en 325 mg ,Jamie tablet tablet Rapaflo 8 Rapaflo 8 2017-04 2019- No Shallish Unknown Unknown mg capsule mg capsule 0-10 - Jamie DAVID Klor-Con Klor-Con No Shallish 1 Unknown M20 mEq M20 mEq MDJamie tablet tablet,exte tablet,exte nded nded release release [...] No Shallish 1 tab Unknown [facility] Raysa DAVIDil 81 mg 81 mg chewable chewable tablet tablet Flonase Flonase No Shallish 1 spray Unknown Allergy Allergy Jamie DAVID Relief 50 Relief 50 mcg/actuati mcg/actuati on nasal on nasal spray,suspe spray,suspe nsion nsion glipiZIDE glipiZIDE No Shallish 0.5 tab Unknown 10 mg 10 mg ,Jamie tablet tablet Lovaza 1 Lovaza 1 No Shallish 1 cap Unknown gram gram ,Jamie capsule capsule oxyCODONE 5 oxyCODONE 5 No Garcia 2 tabs Unknown mg tablet mg tablet DO,Ponce (10 mg) morphine ER morphine ER No Garcia 1 tab Unknown 15 mg 15 mg DO,Ponce tablet,exte tablet,exte nded nded release release loperamide loperamide No [place] 1-2 Unknown 2 mg tablet 2 mg [...] Shallish Unknown Unknown FlexTouch FlexTouch 0-10 12-26 MD,Ajmie U-100 U-100 Insulin 100 Insulin 100 unit/mL [...] pen s pen testosteron testosteron 2017-04 No [place] Unknown Unknown e cypionate e cypionate 06-06 Latanya DAVID 200 mg/mL 200 mg/mL intramuscul intramuscul ar kit ar kit mometasone mometasone 2017-04 No [place] Unknown Unknown 0.1 % 0.1 % 06-06 Latanya DAVID topical topical cream cream finasteride finasteride 2017-04 No [place] Unknown Unknown 5 mg tablet 5 mg tablet 06-06 Latanya DAVID Levemir Levemir 2017-04- No [place] Unknown Unknown FlexTouch FlexTouch 06-06 Latanya DAVID U-100 U-100 Insulin 100 Insulin 100 unit/mL (3 unit/mL (3 mL) mL) subcutaneou subcutaneou s pen s pen Levemir Levemir 2018- No Shallish Unknown Unknown FlexTouch FlexTouch 05-01 06-10 MD,Jamie U-100 U-100 Insulin 100 Insulin 100 [...] mg 09-11 MD,Jamie tablet tablet Coumadin Coumadin 2019-0 2019- No Shallish Unknown Unknown 2.5 mg 2.5 mg 09-15 06- MD,Jamie tablet tablet Eliquis 5 Eliquis 5 [...] Observation Time Observation Value Comments SYSTOLIC mm[Hg] 2019-03-28 18:09:25 142 mm[Hg] mm[Hg] Method: Sit SYSTOLIC mm[Hg] 2018-01-23 18:02:16 122 mm[Hg] mm[Hg] Method: Stand DIASTOLIC mm[Hg] 2019-03-28 18:09:25 76 mm[Hg] mm[Hg] Method: Sit DIASTOLIC mm[Hg] 2018-01-23 18:02:16 60 mm[Hg] mm[Hg] Method: Stand PULSE 2019-03-28 18:09:25 70 /min /min RESP RATE 2019-03-28 18:09:25 16 /min /min TEMP 2019-03-28 18:09:25 97.9 [degF] Procedures This patient has no known procedures. Results This patient has no known results.
--- OUTSIDE RECORDS SUMMARY | 2019-04-11 14:37 | XMS REPORT ---
:1940 Author Organization [facility] Care Team Providers Name Role Phone Unavailable Unavailable Unavailable Problems Condition Condition Condition Status Onset Resolution Last Treating Comments Name Details Category Date Date Treatment Clinician Date Pain frequent Pain Mgmt Resolve 2017-042018-05-08 Roselyn pain d 0-10 08:50:00 (Radha) 11:15: Weller 00 [id number] Cardio edema Cardiovasc Resolve 2017-042018-02-20 Roselyn ular d 0-10 09:50:00 (Radha) 11:15: Weller 00 [id number] Respiratory dyspnea Respirator Resolve 2017-042018-02-15 Roselyn present y d 0-10 10:20:00 (Radha) 11:15: Weller 00 [id number] Endo/Edgard glucose Endo/Edgard Resolve 2017-042018-03-20 Roselyn testing d 0-10 12:30:00 (Radha) dependence 11:15: Weller 00 [id number] Endo/Edgard knowledge/s Endo/Edgard Resolve 2017-042018-03-06 Roselyn kill d 0-10 09:30:00 (Radha) deficit: pt 11:15: Weller 00 [id number] Endo/Edgard anti-coagul Endo/Edgard Resolve 2017-042018-03-20 Roselyn ation d 0-10 12:30:00 (Radha) therapy 11:15: Weller 00 [id number] Endo/Edgard diabetic Endo/Edgard Resolve 2017-042018-03-06 Roselyn foot care d 0-10 09:30:00 (Radha) 11:15: Weller 00 [id number] Sensory impaired Sensory Resolve 2017-042018-03-22 Roselyn hearing d 0-10 09:55:00 (Radha) 11:15: Weller 00 [id number] Integument pressure Integument Resolve 2017-042018-08-21 Roselyn ulcer d 0-10 12:45:00 (Radha) present 11:15: Weller [id number] Integument skin Integument Resolve 2017-042018-03-03 Roselyn integrity d 0-10 09:19:00 (Radha) risk 11:15: Weller [id number] Integument surgical Integument Resolve 2017-042018-03-03 Quality wound d 0-10 09:19:00 Realtime7 present 11:15: 00 Integument other wound Integument Resolve 2017-042018-03-03 Quality present d 0-10 09:19:00 Realtime7 11:15: 00 Elimination urinary Eliminatio Resolve 2017-042018-03-20 Roselyn incontinenc n d 0-10 12:30:00 (Radha) e 11:15: Weller [id number] Neuro confusion Neuro/Emot Resolve 2017-042018-03-22 Roselyn present ion d 0-10 09:55:00 (Radha) 11:15: Weller [id number] Neuro anxiety Neuro/Emot Resolve 2017-042018-03-22 Roselyn present ion d 0-10 09:55:00 (Radha) 11:15: Weller [id number] Neuro impaired Neuro/Emot Resolve 2017-042018-03-22 Roselyn decision-ma ion d 0-10 09:55:00 (Radha) pj 11:15: Weller [id number] Activity ADL Activity Resolve 2017-042018-03-22 Roselyn assistance d 0-10 09:55:00 (Radha) required 11:15: [id number] Safety structural Safety Resolve 2017-042018-03-22 Roselyn barriers d 0-10 09:55:00 (Radha) present 11:15: Weller [id number] Safety fall risk Safety Resolve 2017-042018-03-22 Roselyn factor d 0-10 09:55:00 (Radha) present 11:15: Weller [id number] Safety risk for Safety Resolve 2017-042018-03-22 Roselyn hospitaliza d 0-10 09:55:00 (Radha) tion 11:15: Weller [id number] Safety can be left Safety Resolve 2017-042018-03-22 Roselyn alone for d 0-10 09:55:00 (Radha) only short 11:15: Weller 00 [id number] Medication oral med Meds Resolve 2017-042018-02-06 Roselyn assistance d 0-10 09:15:00 (Radha) required 11:15: Weller [id number] Medication injectable Meds Resolve 2017-042018-02-06 Roselyn med d 0-10 09:15:00 (Radha) assistance 11:15: Weller required 00 [id number] Medication knowledge/s Meds Resolve 2017-042018-02-15 Roselyn kill d 0-10 10:20:00 (Radha) deficit: pt 11:15: Weller 00 [id number] Medication potential Meds Resolve 2017-042018-02-15 Roselyn clinically d 0-10 10:20:00 (Radha) significant 11:15: Weller medication 00 [id number] issue Musculoskel transfer Musculoske Resolve 2017-042018-03-20 Roselyn etal assistance letal d 0-10 12:30:00 (Radha) required 11:15: Weller [id number] Musculoskel requires Musculoske Resolve 2017-042018-03-20 Roselyn etal human letal d 0-10 12:30:00 (Radha) assist to 11:15: Weller leave home 00 [id number] Safety knowledge/s Safety Resolve 2017-042018-03-22 Laura kill d 0-12 09:55:00 Jean[place]Claude deficit: pt 10:00: [id number] 00 Respiratory knowledge/s Respirator Resolve 2017-042018-02-06 Laura kill y d 0-15 09:15:00 Jean[place]Cla[place] deficit: cg 10:00: [id number] 00 Respiratory lung sounds Respirator Resolve 2017-042018-02-06 Laura deficit y d 0-15 09:15:00 [place] 10:00: [id number] 00 Sensory impaired Sensory Resolve 2017-042018-03-22 Quality verbal d 0-17 09:55:00 Realtime7 communicati 18:36: on 42 Musculoskel knowledge/s Musculoske Resolve 2017-042018-03-03 Laura etal kill letal d 0-24 09:19:00 Jean[place]Cla[place] deficit: cg 09:45: [id number] 00 Nutrition knowledge/s Nutrition Resolve 2017-042018-03-03 Laura kill d 0-26 09:19:00 [place] deficit: pt 09:15: [id number] 00 Nutrition nutritional Nutrition Resolve 2017-042018-03-03 Laura restriction d 09:19:00 [place] s 09:15: [id number] 00 Elimination catheter Eliminatio Resolve 2017-042018-03-20 Laura present n d 0 12:30:00 Jean[place]Cla[place] 09:15: [id number] 00 Elimination constipatio Eliminatio Resolve 2017-042018-03-20 Laura n n d 0 12:30:00 [place] 09:15: [id number] 00 Infection s/s of Infection Resolve 2017-042018-03-22 Laura infection d 0 09:55:00 Jean[place]Claude 09:30: [id number] 00 Endo/Edgard insulin Endo/Edgard Resolve 2017-042018-03-20 Laura admn d 04-22 12:30:00 Jean[place]Cla[place] dependence 09:50: [id number] 00 Respiratory dyspnea Respirator Resolve 2017-042018-03-08 Laura present y d 04-24 09:20:00 [place] 10:07: [id number] 00 Safety cannot be Safety Resolve 2017-042018-03-22 Laura left alone d 04-24 09:55:00 [place] 10:07: [id number] 00 Cardio edema Cardiovasc Resolve 2017-042018-03-03 Laura ular d 04-26 09:19:00 [place] 09:51: [id number] 00 Respiratory Incentive Respirator Resolve 2017-042018-03-03 Laura Spirometer y d 04-26 09:19:00 Jean-Claude /Acapella 09:51: [id number] Device 00 treatments in home Endo/Edgard knowledge/s Endo/Edgard Resolve 2017-042018-03-20 Laura kill d 05-08 12:30:00 [place] deficit: pt 09:20: [id number] 00 Nutrition knowledge/s Nutrition Resolve 2017-042018-04-19 Laura kill d 05-08 09:45:00 [place] deficit: pt 09:20: [id number] 00 Nutrition nutritional Nutrition Resolve 2017-042018-04-19 Laura restriction d 05-08 09:45:00 Jean[place] s 09:20: [id number] 00 Endo/Edgard diabetic Endo/Edgard Resolve 2017-042018-03-20 Laura foot care d 2- 12:30:00 [place] 09:20: [id number] 00 Pain frequent Pain Mgmt Unknown 2017-04 Laura pain 2- [place] 12:45: [id number] 00 Respiratory dyspnea Respirator Resolve 2017-042018-03-20 Laura present y d 2 12:30:00 [place] 12:45: [id number] 00 Integument pressure Integument Unknown 2017-04 Laura ulcer 2- Jean-Claude present 12:45: [id number] 00 Integument surgical Integument Resolve 2017-042018-03-24 Laura wound d 2 11:23:00 Jean[place] present 12:45: [id number] 00 Endo/Edgard diabetic Endo/Edgard Resolve 2017-042018-03-24 Laura foot care d 05-23 11:23:00 [place] 09:55: [id number] 00 Elimination catheter Eliminatio Resolve 2017-042018-04-19 Laura present n d 05-23 09:45:00 [place] 09:55: [id number] 00 Safety risk for Safety Resolve 2017-042018-04-19 Laura hospitaliza d 2 09:45:00 Jean[place]Claude tion 11:23: [id number] 00 Safety can be left Safety Resolve 2017-042018-04-19 Laura alone for d 2- 09:45:00 Jean[place]Claude only short 11:23: [id number] periods 00 Musculoskel knowledge/s Musculoske Resolve 2017-042018-03-29 Laura etal kill letal d - 09:30:00 Jean[place] deficit: cg 10:20: [id number] 00 Musculoskel requires Musculoske Resolve 2017-042018-04-12 Laura etal human letal d 2- 09:45:00 Jean-Claude assist to 10:20: [id number] leave home 00 Endo/Edgard diabetic Endo/Edgard Resolve 2017-042018-04-19 Laura foot care d 2- 09:45:00 [place] 09:30: [id number] 00 Elimination constipatio Eliminatio Resolve 2017-042018-04-12 Laura n n d 05-30 09:45:00 [place] 09:30: [id number] 00 Pain frequent Pain Mgmt Unknown 2017-04 Laura pain 06-06 Jean-Claude 09:45: [id number] 00 Endo/Edgard insulin Endo/Edgard Resolve 2017-042018-04-19 Laura admn d 06-06 09:45:00 [place] dependence 09:45: [id number] 00 Endo/Edgard anti-coagul Endo/Edgard Resolve 2017-042018-04-19 Laura ation d 06-06 09:45:00 [place] therapy 09:45: [id number] 00 Integument surgical Integument Resolve 2017-042018-04-05 Laura wound d 06-06 09:45:00 [place] present 09:45: [id number] 00 Integument skin Integument Resolve 2017-042018-04-05 Laura integrity d 06-06 09:45:00 Jean[place] risk 09:45: [id number] 00 Integument pressure Integument Unknown 2017-04 Laura ulcer 06-06 Jean-Claude present 09:45: [id number] 00 Elimination UTI within Eliminatio Resolve 2017-042018-04-12 Laura past 14 n d 06-06 09:45:00 Jean-Claude days 09:45: [id number] 00 Activity ADL Activity Resolve 2017-042018-09-15 Laura assistance d 06-06 10:35:00 Jean[place] required 09:45: [id number] 00 Safety fall risk Safety Resolve 2017-042018-04-19 Laura factor d 06-06 09:45:00 Jean[place]Cla[place] present 09:45: [id number] 00 Medication potential Meds Resolve 2017-042018-04-19 Laura clinically d 06-06 09:45:00 Jean-Claude significant 09:45: [id number] medication 00 issue Medication oral med Meds Resolve 2017-042018-04-05 Shari assistance d 06-06 09:45:00 [place] required 09:45: [id number] 00 Medication injectable Meds Resolve 2017-042018-08-09 Shari med d 06-06 09:20:00 [place] assistance 09:45: [id number] required 00 Musculoskel transfer Musculoske Resolve 2017-042018-04-12 Shari etal assistance letal d 06-06 09:45:00 [place] required 09:45: [id number] 00 Medication oral med Meds Resolve 2017-042018-04-19 Laura assistance d 06-08 09:45:00 Jean[place] required 10:00: [id number] 00 Medication injectable Meds Unknown 2017-04 Laura med 06-08 [place] assistance 10:00: [id number] required 00 Sensory impaired Sensory Resolve 2017-042018-04-19 Nima verbal d 06-08 09:45:00 [place] communicati 15:20: [id number] on 00 Sensory impaired Sensory Resolve 2017-042018-04-19 Nima hearing d 06-08 09:45:00 [place] 15:20: [id number] 00 Medication injectable Meds Unknown 2017-04 Nhung med Pérez assistance 14:56: [id number] required 00 Medication injectable Meds Unknown Nima med 04-13 [place] assistance 13:50: [id number] required 00 Elimination constipatio Eliminatio Resolve 2018-04-19 Laura n n d 04-14 09:45:00 Jean[place]ude 09:28: [id number] 00 Medication injectable Meds Unknown Laura med 04-17 [place] assistance 10:00: [id number] required 00 Medication injectable Meds Resolve 2018-04-19 Laura med d 04-19 09:45:00 [place] assistance 09:45: [id number] required 00 Endo/Edgard anti-coagul Endo/Edgard Resolve 2018-04-26 Laura ation d 04-21 10:15:00 Jean[place]Claude therapy 09:45: [id number] 00 Nutrition knowledge/s Nutrition Resolve 2018-04-26 Laura kill d 04-21 10:15:00 [place] deficit: pt 09:45: [id number] 00 Nutrition nutritional Nutrition Resolve 2018-04-26 Laura restriction d 04-21 10:15:00 Jean[place] s 09:45: [id number] 00 Elimination catheter Eliminatio Resolve 2018-04-26 Laura present n d 04-21 10:15:00 Jean[place]ude 09:45: [id number] 00 Elimination constipatio Eliminatio Resolve 2018-04-26 Laura n n d 04-21 10:15:00 Jean[place] 09:45: [id number] 00 Safety risk for Safety Resolve 2018-04-26 Laura hospitaliza d 1-11 10:15:00 Jean-Claude tion 09:45: [id number] 00 Safety can be left Safety Resolve 2018-04-26 Laura alone for d 1-11 10:15:00 Jean-Claude only short 09:45: [id number] periods 00 Sensory impaired Sensory Resolve 2018-04-26 Nima verbal d 1-11 10:15:00 [place] communicati 14:30: [id number] on 00 Sensory impaired Sensory Resolve 2018-04-26 Nima hearing d 1-11 10:15:00 [place] 14:30: [id number] 00 Sensory impaired Sensory Resolve 2018-04-28 Nima verbal d 1-17 10:20:00 [place] communicati 12:45: [id number] on 00 Sensory impaired Sensory Resolve 2018-04-28 Nima hearing d 1-17 10:20:00 [place] 12:45: [id number] 00 Endo/Edgard anti-coagul Endo/Edgard Resolve 2018-05-24 Laura ation d 1-18 12:30:00 Jean-Claude therapy 10:20: [id number] 00 Safety risk for Safety Active Laura hospitaliza - [place] tion 10:20: [id number] 00 Safety can be left Safety Resolve 2018-05-10 Laura alone for d 1- 13:45:00 Jean-Claude only short 10:10: [id number] Sensory impaired Sensory Resolve 2018-05-10 Jia hearing d 05-05 13:45:00 [place] 13:30: t 00 [id number] Sensory impaired Sensory Resolve 2018-05-10 Jia verbal d 1 13:45:00 [place] communicati 13:30: t on 00 [id number] Elimination catheter Eliminatio Resolve 2018-05-08 Wandy present n d 05-08 08:50:00 ,Kaylee 08:50: 00 Elimination constipatio Eliminatio Resolve 2018-06-28 Wandy n n d 05-08 09:45:00 ,Kaylee 08:50: 00 Safety cannot be Safety Resolve 2018-05-10 Laura left alone d 1- 13:45:00 [place] 08:50: [id number] 00 Elimination catheter Eliminatio Resolve 2018-05-12 Shari present n d 2- 09:30:00 Re[place]zi 09:30: [id number] 00 Safety can be left Safety Resolve 2018-05-17 Laura alone for d - 10:00:00 Jean-Claude only short 09:30: [id number] periods 00 Elimination urinary Eliminatio Resolve 2018-05-15 Laura incontinenc n d 05-15 08:45:00 [place] e 08:45: [id number] 00 Pain frequent Pain Mgmt Resolve 2018-05-17 Laura pain d 2-06 10:00:00 [place] 10:00: [id number] 00 Respiratory lung sounds Respirator Resolve 2018-05-22 Laura deficit y d 2-06 10:44:00 Jean[place] 10:00: [id number] 00 Integument pressure Integument Unknown Laura ulcer 2-06 Jean-Claude present 10:00: [id number] 00 Integument skin Integument Resolve 2018-05-17 Laura integrity d 2-06 10:00:00 [place] risk 10:00: [id number] 00 Integument surgical Integument Resolve 2018-05-17 Laura wound d 2-06 10:00:00 Jean[place]Claude present 10:00: [id number] 00 Activity ADL Activity Unknown 2018- Laura assistance 2-06 [place] required 10:00: [id number] 00 Activity self-care Activity Resolve 2018-05-19 Laura deficit d 2-06 11:15:00 Jean[place] 10:00: [id number] 00 Safety fall risk Safety Resolve 2018-05-19 Laura factor d 2-06 11:15:00 [place] present 10:00: [id number] 00 Elimination urinary Eliminatio Resolve 2018-05-24 [place] incontinenc n d 2- 12:30:00 Kaylee 11:15: 00 Safety can be left Safety Resolve 2018-05-24 Laura alone for d 2-08 12:30:00 Jean-Claude only short 11:15: [id number] periods 00 Safety fall risk Safety Resolve 2018-05-24 Sonia White factor d 2-12 12:30:00 present 09:48: 41 Endo/Edgard glucose Endo/Edgard Resolve 2018-05-24 Laura tolerance d 2-13 12:30:00 [place] problem 12:30: [id number] 00 Respiratory Incentive Respirator Resolve 2018-06-07 Laura Spirometer y d 2-15 12:00:00 Jean-Claude /Acapella 13:40: [id number] Device 00 treatments in home Endo/Edgard anti-coagul Endo/Edgard Resolve 2018-06-12 Laura ation d 2-15 09:30:00 Jean[place]Cla[place] therapy 13:40: [id number] 00 Elimination urinary Eliminatio Resolve 2018-05-26 Laura incontinenc n d 2-15 13:40:00 Jean[place]Claude e 13:40: [id number] 00 Safety can be left Safety Resolve 2018-06-07 Laura alone for d 2-15 12:00:00 Jean-Claude only short 13:40: [id number] periods 00 Endo/Edgard glucose Endo/Edgard Resolve 2018-06-07 Cher[place] tolerance d 2-22 12:00:00 [place] problem 10:15: [id number] 00 Endo/Edgard insulin Endo/Edgard Resolve 2018-06-12 Cher[place] admn d 2-22 09:30:00 [place] dependence 10:15: [id number] 00 Endo/Edgard glucose Endo/Edgard Resolve 2018-06-12 Cher[place] testing d 2- 09:30:00 Trixie dependence 10:15: [id number] 00 Safety fall risk Safety Resolve 2018-06-07 Cher[place] factor d 2-22 12:00:00 [place] present 10:15: [id number] 00 Musculoskel transfer Musculoske Active Cherrise etal assistance letal 06-02 Trixie required 10:15: [id number] 00 Musculoskel requires Musculoske Active Cherrise etal human letal 2 [place] assist to 10:15: [id number] leave home 00 Elimination urinary Eliminatio Resolve 2018-06-07 Laura incontinenc n d 06-05 12:00:00 Jean[place]Claude e 12:30: [id number] 00 Activity self-care Activity Resolve 2018-08-14 Laura deficit d 06-05 12:10:00 [place] 12:30: [id number] 00 Elimination urinary Eliminatio Resolve 2018-06-12 Laura incontinenc n d 06-09 09:30:00 Jean[place] e 09:13: [id number] 00 Safety can be left Safety Resolve 2018-06-12 Laura alone for d 06-09 09:30:00 Jean[place]Claude only short 09:13: [id number] periods 00 Respiratory Incentive Respirator Resolve 2018-06-14 Laura Spirometer y d 06-12 09:30:00 Jean-Claude /Acapemiguel 09:30: [id number] Device 00 treatments in home Endo/Edgard anti-coagul Endo/Edgard Resolve 2018-06-30 Laura ation d 06-14 09:19:00 Jean[place]Cla[place] therapy 09:30: [id number] 00 Safety can be left Safety Resolve 2018-06-30 Laura alone for d 06-14 09:19:00 Jean-Claude alejo 09:30: [id number] periods 00 Elimination urinary Eliminatio Resolve 2018-06-19 Laura incontinenc n d 06-16 13:45:00 [place] e 09:45: [id number] 00 Elimination urinary Eliminatio Resolve 2018-06-28 Laura incontinenc n d 06-23 09:45:00 Jean[place] e 13:15: [id number] 00 Elimination constipatio Eliminatio Resolve 2018-07-14 Laura n n d 06-30 09:20:00 [place] 09:19: [id number] 00 Endo/Edgard anti-coagul Endo/Edgard Resolve 2018-07-14 Laura ation d 07-03 09:20:00 Jean[place] therapy 12:49: [id number] 00 Elimination urinary Eliminatio Resolve 2018-07-14 Laura incontinenc n d 07-03 09:20:00 [place] e 12:49: [id number] 00 Safety can be left Safety Resolve 2018-08-18 Laura alone for d 07-07 12:05:00 Jean-Claude only short 12:50: [id number] periods 00 Endo/Edgard glucose Endo/Edgard Resolve 2018-07-14 Shi testing d 07-10 09:20:00 Sorin, dependence 12:30: [id number] 00 Pain frequent Pain Mgmt Resolve 2018-07-14 Laura pain d 07-14 09:20:00 Jean[place]Claude 09:20: [id number] 00 Integument surgical Integument Resolve 2018-08-13 Laura wound d 07-14 12:50:00 Jean[place]Cla[place] present 09:20: [id number] 00 Integument skin Integument Resolve 2018-08-13 Laura integrity d 07-14 12:50:00 [place] risk 09:20: [id number] 00 Safety fall risk Safety Resolve 2018-08-18 Laura factor d 07-14 12:05:00 [place] present 09:20: [id number] 00 Endo/Edgard anti-coagul Endo/Edgard Resolve 2018-08-14 Laura ation d 07-17 12:10:00 Jean[place] therapy 13:00: [id number] 00 Elimination urinary Eliminatio Resolve 2018-07-21 Laura incontinenc n d 07-17 09:25:00 Jean[place]Cla[place] e 13:00: [id number] 00 Activity ADL Activity Unknown Laura assistance 07-17 [place] required 13:00: [id number] 00 Elimination urinary Eliminatio Resolve 2018-08-14 Laura incontinenc n d 07-24 12:10:00 [place] e 09:27: [id number] 00 Pain frequent Pain Mgmt Resolve 2018 Laura pain d 08-07 09:20:00 Jean[place]Claude 12:45: [id number] 00 Cardio edema Cardiovasc Resolve 2018 Laura ular d 08-07 09:20:00 Jean[place] 12:45: [id number] 00 Respiratory dyspnea Respirator Resolve 2018 Laura present y d 08-07 09:20:00 Jean[place] 12:45: [id number] 00 Endo/Edgard diabetic Endo/Edgard Resolve 2018-08-14 Laura foot care d 08-07 12:10:00 Jean[place] 12:45: [id number] 00 Nutrition knowledge/s Nutrition Active Laura kill 08-07 Jean-Claude deficit: pt 12:45: [id number] 00 Nutrition nutritional Nutrition Active Laura restriction 08-07 Jean-Claude s 12:45: [id number] 00 Neuro confusion Neuro/Emot Resolve 2018-08-14 Laura present ion d 08-07 12:10:00 Jean[place] 12:45: [id number] 00 Medication oral med Meds Resolve 2018 Laura assistance d 08-07 09:20:00 [place] required 12:45: [id number] 00 Medication injectable Meds Resolve 2018 Jia med d 08-07 09:20:00 Jerardo assistance 12:45: [id number] required 00 Cardio edema Cardiovasc Resolve 2018-08-23 Laura ular d 08-13 11:15:00 Jean[place] 12:50: [id number] 00 Respiratory dyspnea Respirator Resolve 2018-08-14 Laura present y d 08-13 12:10:00 [place] 12:50: [id number] 00 Endo/Edgard anti-coagul Endo/Edgard Resolve 2018-08-28 Laura ation d 08-16 12:00:00 Jean[place] therapy 12:15: [id number] 00 Elimination urinary Eliminatio Resolve 2018-08-21 Laura incontinenc n d 08-16 12:45:00 Jean[place] e 12:15: [id number] 00 Sensory impaired Sensory Resolve 2018-08-21 Krystyna verbal d 08-17 12:45:00 [place] communicati 14:30: [id number] on 00 Sensory impaired Sensory Resolve 2018-08-21 Krystyna hearing d 08-17 12:45:00 [place] 14:30: [id number] 00 Social financial LILLIAN: Resolve 2019-02-16 Krystyna Services resource Social d 08-17 13:45:00 [place] deficit Services 14:30: [id number] 00 Social knowledge/s LILLIAN: Resolve 2018-08-17 Krystyna Services kill Social d 08-17 14:30:00 [place] deficit - Services 14:30: [id number] pt 00 Social knowledge/s LILLIAN: Resolve 2018-08-17 Krystyna Services kill Social d 08-17 14:30:00 [place] deficit - Services 14:30: [id number] cg 00 Safety can be left Safety Resolve 2018-09-07 Laura alone for d 5-15 10:00:00 Jean-Claude cruz short 11:15: [id number] periods 00 Social knowledge/s LILLIAN: Active Laura Services kill Social 08-23 [place] deficit - Services 11:15: [id number] pt 00 Elimination urinary Eliminatio Resolve 2018-09-07 Laura incontinenc n d 08-25 10:00:00 Jean[place] e 11:45: [id number] 00 Sensory impaired Sensory Resolve 2018-09-07 Krystyna verbal d 09-01 10:00:[facility] 14[facility]45: [id number] on 00 Sensory impaired Sensory Resolve 2018-09-07 Krystyna hearing d 09-01 10:00:00 [place] 14:45: [id number] 00 Social knowledge/s LILLIAN: Active Krystyna Services kill Social 09-01 [place] deficit - Services 14:45: [id number] cg 00 Respiratory dyspnea Respirator Resolve 2018-09-15 Laura present y d 09-07 10:35:00 Jean[place] 10:00: [id number] 00 Pain frequent Pain Mgmt Resolve 2018-09-11 Laura pain d 09-11 11:50:00 Jean[place] 11:50: [id number] 00 Cardio hypertensio Cardiovasc Resolve 2018-09-11 Laura n ular d 09-11 11:50:00 Jean[place]Claude 11:50: [id number] 00 Integument pressure Integument Resolve 2018-09-15 Laura ulcer d 6 10:35:00 Jean[place]Cla[place] present 11:50: [id number] 00 Integument surgical Integument Resolve 2018-09-15 Laura wound d 6-03 10:35:00 [place] present 11:50: [id number] 00 Integument skin Integument Resolve 2018-09-15 Laura integrity d 09-11 10:35:00 [place] risk 11:50: [id number] 00 Elimination urinary Eliminatio Resolve 2018-09-11 Laura incontinenc n d 09-11 11:50:00 Jean[place] e 11:50: [id number] 00 Activity ADL Activity Unknown Laura assistance 09-11 [place] required 11:50: [id number] 00 Activity self-care Activity Resolve 2018-09-15 Laura deficit d 09-11 10:35:00 Jean[place] 11:50: [id number] 00 Safety fall risk Safety Resolve 2018-09-15 Laura factor d 09-11 10:35:00 [place] present 11:50: [id number] 00 Safety can be left Safety Resolve 2018-09-15 Laura alone for d 09-11 10:35:00 Jean[place]Cla[place] only short 11:50: [id number] periods 00 Endo/Edgard anti-coagul Endo/Edgard Resolve 2018-09-18 Laura ation d 09-15 12:20:00 [place] therapy 10:35: [id number] 00 Elimination urinary Eliminatio Resolve 2018-09-18 Laura incontinenc n d 09-15 12:20:00 [place] e 10:35: [id number] 00 Elimination constipatio Eliminatio Resolve 2018-09-18 Laura n n d 09-15 12:20:00 [place] 10:35: [id number] 00 Safety can be left Safety Resolve 2018-09-25 Laura alone for d 610 11:45:00 Jean[place] only short 12:20: [id number] periods 00 Cardio hypertensio Cardiovasc Resolve 2018-09-21 Laura n ular d 09-21 11:45:00 Jean[place] 11:45: [id number] 00 Endo/Edgard anti-coagul Endo/Edgard Resolve 2018-09-25 Laura ation d 09-21 11:45:00 Jean[place]Cla[place] therapy 11:45: [id number] 00 Cardio hypertensio Cardiovasc Resolve 2018-10-02 Laura n ular d 6- 12:05:00 Jean[place]Claude 11:45: [id number] 00 Elimination urinary Eliminatio Resolve 2018-10-02 Laura incontinenc n d 6 12:05:00 Jean[place] e 11:45: [id number] 00 Endo/Edgard anti-coagul Endo/Edgard Resolve 2018-10-02 Laura ation d 09-29 12:05:00 [place] therapy 09:45: [id number] 00 Safety can be left Safety Resolve 2018-10-02 Laura alone for d 09-29 12:05:00 Jean[place]Cla[place] only short 09:45: [id number] 00 Endo/Edgard anti-coagul Endo/Edgard Resolve 2018-10-27 Laura ation d 10-04 11:30:00 [place] therapy 10:10: [id number] 00 Elimination urinary Eliminatio Resolve 2018-10-06 Laura incontinenc n d 10-04 09:10:00 [place] e 10:10: [id number] 00 Elimination constipatio Eliminatio Resolve 2018-10-06 Laura n n d 10-04 09:10:00 Jean[place] 10:10: [id number] 00 Safety can be left Safety Resolve 2018-10-06 Laura alone for d 10-04 09:10:00 [place] only short 10:10: [id number] Sensory impaired Sensory Resolve 2018-10-23 Krystyna verbal d 10-05 11:56:00 [place] communicati 15:00: [id number] on 00 Sensory impaired Sensory Resolve 2018-10-23 Krystyna hearing d 10-05 11:56:00 [place] 15:00: [id number] 00 Elimination urinary Eliminatio Resolve 2018-10-27 Laura incontinenc n d 10-09 11:30:00 Jean-Claude butler 12:15: [id number] 00 Elimination bloody Eliminatio Resolve 2018-10-27 Laura urine n d 10-09 11:30:00 Jean[place]Cla[place] 12:15: [id number] 00 Safety can be left Safety Resolve 2018-10-23 Laura alone for d 10-09 11:56:00 Jean-Claude only short 12:15: [id number] periods Elimination constipatio Eliminatio Resolve 2018-12-08 Laura n n d 10-16 14:00:00 Jean-Claude 12:35: [id number] 00 Cardio edema Cardiovasc Resolve 2018-10-27 Laura ular d 10-20 11:30:00 Jean-Claude 11:35: [id number] 00 Endo/Edgard knowledge/s Endo/Edgard Resolve 2018-10-27 Laura kill d 10-20 11:30:00 Jean[place]Cla[place] deficit: pt 11:35: [id number] 00 Sensory impaired Sensory Unknown Jonatan verbal 7-15 Demarco, communicati 13:30: PT on [id number] Sensory impaired Sensory Unknown Jonatan hearing 15 Deamrco, 13:30: PT [id number] Safety can be left Safety Resolve 2018-10-27 Laura alone for d 10-25 11:30:00 Jean-Claude cruz short 10:35: [id number] 00 Endo/Edgard glucose Endo/Edgard Resolve 2018-12-11 Cherrise tolerance d 10-30 09:30:00 [place] problem 11:55: [id number] 00 Endo/Edgard insulin Endo/Edgard Resolve 2018-12-13 Cherrise admn d 10-30 11:10:00 Trixie dependence 11:55: [id number] 00 Endo/Edgard glucose Endo/Edgard Resolve 2018-12-13 Cherrise testing d 10-30 11:10:00 [place] dependence 11:55: [id number] 00 Endo/Edgard knowledge/s Endo/Edgard Resolve 2018-12-08 Cherrise kill d 10-30 14:00:00 Trixie deficit: pt 11:55: [id number] 00 Elimination urinary Eliminatio Resolve 2018-12-08 Cherrise urgency n d 10-30 14:00:00 [place] 11:55: [id number] 00 Neuro depressive Neuro/Emot Resolve 2018-12-08 Cherrise feelings ion d 10-30 14:00:00 Trixie present 11:55: [id number] 00 Neuro impaired Neuro/Emot Resolve 2018-12-08 Cherrise decision-ma ion d 10-30 14:00:00 [place] pj 11:55: [id number] 00 Safety fall risk Safety Resolve 2018-12-06 Cherrise factor d 10-30 13:05:00 [place] present 11:55: [id number] 00 Endo/Edgard anti-coagul Endo/Edgard Resolve 2018-12-13 Shi ation d 11-01 11:10:00 Sorin, therapy 12:30: [id number] 00 Respiratory Incentive Respirator Resolve 2018-11-29 Cherrise Spirometer y d 11-03 10:15:00 [place] /Acapella 10:25: [id number] Device 00 treatments in home Elimination urinary Eliminatio Resolve 2018-12-08 Cherrise frequency n d 11-03 14:00:00 [place] 10:25: [id number] 00 Respiratory lung sounds Respirator Resolve 2018-11-29 Cherrise deficit y d 11-06 10:15:00 Trixie 12:05: [id number] 00 Neuro memory Neuro/Emot Resolve 2018-12-08 Cherrise deficit ion d 11-08 14:00:00 Trixie needing 10:30: [id number] supervision 00 Pain frequent Pain Mgmt Resolve 2018-12-06 Shi pain d 11-10 13:05:00 Sorin, 11:00: [id number] 00 Integument pressure Integument Active Shi ulcer 11-10 Sorin, present 11:00: [id number] 00 Integument surgical Integument Active 2018- Shi wound 11-10 Sorin, present 11:00: [id number] 00 Integument skin Integument Active 2018- Shi integrity 11-10 Sorin, risk 11:00: [id number] 00 Elimination urinary Eliminatio Resolve 2018-12-08 Shi incontinenc n d 11-10 14:00:00 Sorin, e 11:00: [id number] 00 Activity self-care Activity Resolve 2018-11-29 Shi deficit d 11-10 10:15:00 Sorin, 11:00: [id number] 00 Activity ADL Activity Resolve 2018-12-08 Shi assistance d 11-10 14:00:00 Sorin, required 11:00: [id number] 00 Pain knowledge/s Pain Mgmt Resolve 2018-12-06 Krystyna kill d 11-16 13:05:00 [place] deficit: cg 15:15: [id number] 00 Respiratory knowledge/s Respirator Resolve 2018-11-29 Krystyna kill y d 11-16 10:15:00 [place] deficit: cg 15:15: [id number] 00 Integument knowledge/s Integument Active Krystyna kill 11-16 [place] deficit: cg 15:15: [id number] 00 Elimination knowledge/s Eliminatio Resolve 2018-12-08 Krystyna kill n d 11-16 14:00:00 [place] deficit: cg 15:15: [id number] 00 Safety knowledge/s Safety Resolve 2018-12-06 Krystyna kill d 11-16 13:05:00 [place] deficit: cg 15:15: [id number] 00 Cardio hypertensio Cardiovasc Resolve 2018-11-29 Lenny jarvis jospeh d 11-17 10:15:00 [place] 10:45: [id number] 00 Safety can be left Safety Resolve 2018-12-08 Shi alone for d 11-22 14:00:00 nancy Rowell short 11:00: [id number] periods 00 Sensory impaired Sensory Resolve 2018-12-08 Laura verbal d 11-24 14:00:00 Jean-Claude communicati 09:30: [id number] on 00 Sensory impaired Sensory Resolve 2018-12-08 Laura hearing d 11-24 14:00:00 Jean-Claude 09:30: [id number] 00 Respiratory knowledge/s Respirator Resolve 2018-12-08 Laura kill y d 12-01 14:00:00 [place] deficit: cg 09:30: [id number] 00 Sensory impaired Sensory Unknown Krystyna verbal 8 [place] communicati 15:00: [id number] on 00 Sensory impaired Sensory Unknown Krystyna hearing 12-08 [place] 15:00: [id number] 00 Respiratory knowledge/s Respirator Resolve 2018-12-13 Laura kill y d 12-11 11:10:00 Jean-Claude deficit: cg 09:30: [id number] 00 Endo/Edgard knowledge/s Endo/Edgard Resolve 2018-12-13 Laura kill d 12-11 11:10:00 [place] deficit: pt 09:30: [id number] 00 Elimination urinary Eliminatio Resolve 2018-12-15 Laura incontinenc n d 12-11 13:10:00 Jean-Claude e 09:30: [id number] 00 Safety can be left Safety Resolve 2018-12-15 Laura alone for d 12-11 13:10:00 Jean[place]Cla[place] only short 09:30: [id number] 00 Endo/Edgard knowledge/s Endo/Edgard Resolve 2019-01-05 Laura kill d 12-15 11:00:00 Jean-Cla[place] deficit: pt 13:10: [id number] 00 Endo/Edgard anti-coagul Endo/Edgard Resolve 2019-01-05 Laura ation d 12-15 11:00:00 Jean-Claude therapy 13:10: [id number] 00 Elimination urinary Eliminatio Resolve 2018-12-27 Laura incontinenc n d 12-18 09:20:00 Jean-Claude e 12:10: [id number] 00 Safety can be left Safety Resolve 2019-01-05 Laura alone for d 12-18 11:00:00 Jean-Cla[place] only short 12:10: [id number] periods 00 Elimination constipatio Eliminatio Resolve 2019-01-05 Laura n n d 12-20 11:00:00 Jean-Claude 12:15: [id number] 00 Pain frequent Pain Mgmt Resolve 2019-01-15 Laura pain d 12-27 12:30:00 Jean-Claude 09:20: [id number] 00 Respiratory dyspnea Respirator Resolve 2019-01-05 Laura present y d 12-27 11:00:00 Jean-Claude 09:20: [id number] 00 Endo/Edgard diabetic Endo/Edgard Resolve 2019-01-05 Laura foot care d 9 11:00:00 Jean-Claude 09:20: [id number] 00 Elimination diarrhea Eliminatio Resolve 2019-01-05 Laura n d 18 11:00:00 Jean-Claude 09:20: [id number] 00 Neuro confusion Neuro/Emot Resolve 2019-01-05 Laura present ion d 12-27 11:00:00 Jean-Claude 09:20: [id number] 00 Neuro anxiety Neuro/Emot Resolve 2019-01-05 Alura present ion d 12-27 11:00:00 Jean-Claude 09:20: [id number] 00 Activity ADL Activity Resolve 2019-01-05 Laura assistance d 12-27 11:00:00 [place] required 09:20: [id number] 00 Activity self-care Activity Resolve 2019-01-05 Laura deficit d 12-27 11:00:00 Jean-Claude 09:20: [id number] 00 Safety fall risk Safety Resolve 2019-01-05 Laura factor d 12-27 11:00:00 Jean-Claude present 09:20: [id number] 00 Medication potential Meds Resolve 2019-01-05 Laura clinically d 12-27 11:00:00 [place] significant 09:20: [id number] medication 00 issue Elimination urinary Eliminatio Resolve 2019-01-05 Laura incontinenc n d 12-29 11:00:00 Jean-Claude e 11:20: [id number] 00 Endo/Edgard knowledge/s Endo/Edgard Resolve 2019-01-10 Laura kill d 01-08 10:00:00 Jean-Cla[place] deficit: pt 11:30: [id number] 00 Endo/Edgard anti-coagul Endo/Edgard Resolve 2019-01-10 Laura ation d 01-08 10:00:00 Jean-Cla[place] therapy 11:30: [id number] 00 Elimination urinary Eliminatio Resolve 2019-01-15 Laura incontinenc n d 01-08 12:30:00 [place] e 11:30: [id number] 00 Safety can be left Safety Resolve 2019-02-16 Laura alone for d 9-30 12:00:00 Jean-Claude only short 11:30: [id number] periods 00 Respiratory dyspnea Respirator Resolve 2018-042019-01-26 Laura present y d 0-02 10:00:00 Jean-Claude 10:00: [id number] 00 Activity ADL Activity Resolve 2018-042019-01-12 Laura assistance d 0-02 11:30:00 [place] required 10:00: [id number] 00 Activity self-care Activity Resolve 2018-042019-01-12 Laura deficit d 0-02 11:30:00 [place] 10:00: [id number] 00 Safety fall risk Safety Resolve 2018-042019-01-12 Laura factor d 0-02 11:30:00 [place] present 10:00: [id number] 00 Medication injectable Meds Resolve 2018-042019-01-17 Laura med d 0-02 09:45:00 [place] assistance 10:00: [id number] required 00 Endo/Edgard knowledge/s Endo/Edgard Resolve 2018-042019-01-15 Laura kill d 0-04 12:30:00 Jean[place]Cla[place] deficit: pt 11:30: [id number] 00 Endo/Edgard anti-coagul Endo/Edgard Resolve 2018-042019-01-15 Laura ation d 0-04 12:30:00 [place] therapy 11:30: [id number] 00 Elimination constipatio Eliminatio Resolve 2018-042019-01-15 Laura n n d 0-04 12:30:00 [place] 11:30: [id number] 00 Sensory impaired Sensory Resolve 2018-042019-01-15 Krystyna verbal d 0-04 12:30:00 Kathy communicati 15:30: [id number] on 00 Sensory impaired Sensory Resolve 2018-042019-01-15 Krystyna hearing d 0-04 12:30:00 [place] 15:30: [id number] 00 Infection s/s of Infection Resolve 2018-042019-03-09 Laura infection d 0-07 11:00:00 Jean-Claude 12:30: [id number] 00 Sensory impaired Sensory Resolve 2018-042019-01-22 Jonatan verbal d 0-08 11:00:00 ambrosio Pal 13:00: PT on 00 [id number] Sensory impaired Sensory Resolve 2018-042019-01-22 Jonatan hearing d 0-08 11:00:00 Demarco, 13:00: PT 00 [id number] Endo/Edgard knowledge/s Endo/Edgard Resolve 2018-042019-02-07 Laura kill d 0-09 11:20:00 Jean[place]Cla[place] deficit: pt 09:45: [id number] 00 Endo/Edgard anti-coagul Endo/Edgard Resolve 2018-042019-02-07 Laura ation d 0-09 11:20:00 Jean-Cla[place] therapy 09:45: [id number] 00 Elimination urinary Eliminatio Resolve 2018-042019-02-02 Laura incontinenc n d 0-09 11:30:00 Jean-Claude e 09:45: [id number] 00 Elimination constipatio Eliminatio Resolve 2018-042019-02-02 Laura n n d 0-16 11:30:00 [place] 10:00: [id number] 00 Sensory impaired Sensory Resolve 2018-042019-01-31 Jonatan verbal d 0-17 11:10:00 Demarco, communicflorentino 15:00: PT on 00 [id number] Sensory impaired Sensory Resolve 2018-042019-01-31 Jonatan hearing d 0-17 11:10:00 Demarco, 15:00: PT 00 [id number] Pain frequent Pain Mgmt Resolve 2018-042019-02-16 Jonatan pain d 0-23 12:00:00 Demarco, 13:00: PT 00 [id number] Sensory impaired Sensory Unknown 2018-04 Jonatan verbal 0-23 Demarco, communicati 13:00: PT on 00 [id number] Sensory impaired Sensory Unknown 2018-04 Jonatan hearing 0-23 Demarco, 13:00: PT 00 [id number] Respiratory dyspnea Respirator Resolve 2018-042019-02-07 Laura present y d 0-25 11:20:00 Jean-Claude 11:30: [id number] 00 Elimination urinary Eliminatio Resolve 2018-042019-02-07 Laura incontinenc n d 0-28 11:20:00 Jean-Claude e 12:40: [id number] 00 Endo/Edgard knowledge/s Endo/Edgard Resolve 2018-042019-02-19 Laura kill d 1 12:40:00 Jean-Cla[place] deficit: pt 12:30: [id number] 00 Endo/Edgard anti-coagul Endo/Edgard Resolve 2018-042019-02-19 Laura ation d 04-11 12:40:00 Jean-Claude therapy 12:30: [id number] 00 Elimination urinary Eliminatio Resolve 2018-042019-02-16 Laura incontinenc n d 04-11 12:00:00 Jean-Claude e 12:30: [id number] 00 Medication potential Meds Resolve 2018-042019-02-24 Laura clinically d 04-14 09:45:00 [place] significant 12:20: [id number] medication 00 issue Elimination constipatio Eliminatio Resolve 2018-042019-02-16 Laura n n d 04-16 12:00:00 Jean-Claude 11:20: [id number] 00 Elimination urinary Eliminatio Resolve 2018-042019-02-24 Laura incontinenc n d 04-21 09:45:00 [place] e 12:40: [id number] 00 Safety can be left Safety Resolve 2018-042019-02-24 Laura alone for d 04-21 09:45:00 Jean-Claude only short 12:40: [id number] periods 00 Endo/Edgard knowledge/s Endo/Edgard Resolve 2018-042019-02-24 Laura kill d 04-23 09:45:00 Jean[place] deficit: pt 12:05: [id number] 00 Endo/Edgard anti-coagul Endo/Edgard Resolve 2018-042019-02-24 Laura ation d 04-23 09:45:00 Jean-Cla[place] therapy 12:05: [id number] 00 Sensory impaired Sensory Resolve 2018-042019-02-26 Laura verbal d 04-26 13:20:00 Jean-Claude communicati 09:45: [id number] on 00 Sensory impaired Sensory Resolve 2018-042019-02-26 Laura hearing d 04-26 13:20:00 Jean-Claude 09:45: [id number] 00 Endo/Edgard knowledge/s Endo/Edgard Resolve 2018-042019-02-28 Laura kill d 04-28 11:15:00 [place] deficit: pt 13:20: [id number] 00 Endo/Edgard anti-coagul Endo/Edgard Resolve 2018-042019-02-28 Laura ation d 04-28 11:15:00 Jean-Claude therapy 13:20: [id number] 00 Elimination urinary Eliminatio Resolve 2018-042019-03-09 Laura incontinenc n d 04-28 11:00:00 [place] e 13:20: [id number] 00 Safety can be left Safety Resolve 2018-042019-03-05 Laura alone for d 04-28 12:45:00 Jean-Claude only short 13:20: [id number] periods 00 Endo/Edgard knowledge/s Endo/Edgard Resolve 2018-042019-03-09 Laura kill d 05-05 11:00:00 [place] deficit: pt 12:45: [id number] 00 Endo/Edgard anti-coagul Endo/Edgard Resolve 2018-042019-03-09 Laura ation d 05-05 11:00:00 [place] therapy 12:45: [id number] 00 Safety can be left Safety Resolve 2018-042019-03-09 Laura alone for d 05-07 11:00:00 [place] only short 11:25: [id number] Sensory impaired Sensory Resolve 2018-042019-03-12 Krystyna verbal d 05-09 11:15:00 [place] communicati 12:00: [id number] on 00 Sensory impaired Sensory Resolve 2018-042019-03-12 Krystyna hearing d 05-09 11:15:00 [place] 12:00: [id number] 00 Social financial LILLIAN: Active 2018-04 Krystyna Services resource Social 05-09 [facility] deficit Services 12:00: [id number] 00 Respiratory dyspnea Respirator Resolve 2018-042019-03-14 Laura present y d 05-13 10:30:00 Jean-Claude 11:15: [id number] 00 Endo/Edgard knowledge/s Endo/Edgard Active 2018-04 Laura kill 05-13 [place] deficit: pt 11:15: [id number] 00 Endo/Edgard anti-coagul Endo/Edgard Active 2018-04 Laura ation 05-13 [place] therapy 11:15: [id number] 00 Elimination urinary Eliminatio Resolve 2018-042019-03-14 Laura incontinenc n d 05-13 10:30:00 [place] e 11:15: [id number] 00 Activity ADL Activity Resolve 2018-042019-03-14 Laura assistance d 05-13 10:30:00 [place] required 11:15: [id number] 00 Activity self-care Activity Resolve 2018-042019-03-14 Laura deficit d 2- 10:30:00 Jean-Claude 11:15: [id number] 00 Safety fall risk Safety Resolve 2018-042019-03-14 Laura factor d 2- 10:30:00 [place] present 11:15: [id number] 00 Safety can be left Safety Resolve 2018-042019-03-14 Laura alone for d 2 10:30:00 [place] only short 11:15: [id number] periods 00 Medication injectable Meds Resolve 2018-042019-03-12 Laura med d 05-13 11:15:00 [place] assistance 11:15: [id number] required 00 Safety can be left Safety Resolve 2018-042019-03-19 Laura alone for d 05-17 11:40:00 [place] only short 09:15: [id number] periods 00 Elimination urinary Eliminatio Active 2018-04 Laura incontinenc n 05-20 Jean-Claude e 11:40: [id number] 00 Safety can be left Safety Active 2018-04 Laura alone for 2 Jean-Claude only short 11:30: [id number] periods 00 Allergies, Adverse Reactions, Alerts Allergy Name Allergy Status Severity Reaction(s) Onset Inactive Treating Comments Type Date Date Clinician bananas Unknown Active Unknown Reaction 2017-04 Roselyn Unknown 0-10 (Radha) Nithin [id number] keflex Unknown Active Unknown Reaction 2017-04 Roselyn Unknown 0-10 (Radha) Nithin [id number] nuts Unknown Active Unknown Reaction 2017-04 Roselyn Unknown 0-10 (Radha) Nithin [id number] Cipro Medication Active Unknown Reaction 2017-04 Sonia White Name ID Unknown 0-10 metronidazol Base Active Unknown Nausea and 2017-04 Roselyn e Ingredient vomiting 2-20 Guidelli [id number] Medications Ordered Filled Start Stop Current Ordering [...] Shallish 1 Unknown (algal oil) (algal oil) MDJamie capsule 3 mg-35 3 mg-35 mg-2 mg-2 [...] 1 drop Unknown Liquigel 1 Liquigel 1 ,Jamie % eye % eye liquid gel liquid [...] nded nded release release loperamide loperamide No [place] 1-2 Unknown 2 mg tablet 2 mg tablet MD,Latanya T tabs ( 2 tabs after 1st [...] Shallish Unknown Unknown 20 mg 20 mg 0-01 12- MD,Jamie tablet tablet MS Contin MS Contin [...] Unknown Unknown Optive 1 Optive 1 06-06 MD,Jamie %-0.9 % eye %-0.9 % eye [...] pen s pen testosteron testosteron 2017-04 No [place] Unknown Unknown e cypionate e cypionate 06-06 Latanya DAVID 200 mg/mL 200 mg/mL intramuscul intramuscul ar kit ar kit mometasone mometasone 2017-04 No [place] Unknown Unknown 0.1 % 0.1 % 06-06 Latanya DAVID topical topical cream cream finasteride finasteride 2017-04 No [place] Unknown Unknown 5 mg tablet 5 mg tablet 06-06 Latanya DAVID Levemir Levemir 2017-04- No [place] Unknown Unknown FlexTouch FlexTouch 06-06 Latanya DAVID U-100 U-100 Insulin 100 Insulin 100 unit/mL (3 unit/mL (3 mL) mL) subcutaneou subcutaneou s pen s pen Levemir Levemir 2018- No Shallish Unknown Unknown FlexTouch FlexTouch 05-01 Jamie [...] 08-28 MD,Jamie tablet tablet Coumadin Coumadin 2018- No [...] Observation Time Observation Value Comments SYSTOLIC mm[Hg] 2019-03-23 18:09:20 140 mm[Hg] mm[Hg] Method: Sit SYSTOLIC mm[Hg] 2018-01-23 18:02:16 122 mm[Hg] mm[Hg] Method: Stand DIASTOLIC mm[Hg] 2019-03-23 18:09:20 74 mm[Hg] mm[Hg] Method: Sit DIASTOLIC mm[Hg] 2018-01-23 18:02:16 60 mm[Hg] mm[Hg] Method: Stand PULSE 2019-03-23 18:09:20 68 /min /min RESP RATE 2019-03-23 18:09:20 16 /min /min TEMP 2019-03-23 18:09:20 98.2 [degF] Procedures This patient has no known procedures. Results This patient has no known results.
--- OUTSIDE RECORDS SUMMARY | 2019-04-11 14:37 | XMS REPORT ---
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- [place] mellitus mellitus [id number] with foot with foot ulcer ulcer Non-pressur Non-pressur Diagnosis Active Laura e chronic e chronic 1- [place] ulcer of ulcer of [id number] other part other part of right of right foot with foot with fat layer fat layer exposed exposed Non-pressur Non-pressur Diagnosis Active Laura e chronic e chronic 1- [place] ulcer of ulcer of [id number] other part other part of left of left foot with foot with fat layer fat layer exposed exposed Type 2 Type 2 Diagnosis Active 2018-04 Laura diabetes diabetes 0-10 [place] mellitus mellitus [id number] with other with other skin ulcer skin ulcer Non-pressur Non-pressur Diagnosis Active 2018-04 Laura e chronic e chronic 0-10 [place] ulcer of ulcer of [id number] other part other part of right of right lower leg lower leg with fat with fat layer layer exposed exposed 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- [place] mellitus mellitus [id number] with with diabetic diabetic peripheral peripheral angiopathy angiopathy without without gangrene gangrene 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 [id number] (chronic) (chronic) (peripheral (peripheral ) ) 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 disease disease [id number] with heart with heart failure failure Heart Heart Diagnosis Active Laura failure, failure, [place] unspecified unspecified 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 pectoris pectoris Chronic 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 pulmonary [id number] disease, disease, unspecified unspecified Paroxysmal Paroxysmal Diagnosis Active Laura atrial atrial [place] fibrillatio fibrillatio [id number] n n Anxiety Anxiety Diagnosis Active Laura disorder, disorder, [place] unspecified unspecified [id number] Unspecified Unspecified Diagnosis Active Laura osteoarthri osteoarthri [place] tis, tis, [id number] unspecified unspecified site site Irritable Irritable Diagnosis Active Lauar bowel 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 [id number] without without diarrhea diarrhea Benign Benign Diagnosis Active Laura prostatic prostatic [place] hyperplasia hyperplasia [id number] without without lower lower urinary urinary tract tract symptoms symptoms Sleep Sleep Diagnosis Active Laura apnea, apnea, [place] unspecified unspecified [id number] Tremor, Tremor, Diagnosis Active Laura unspecified unspecified [place] [id number] Hypothyroid Hypothyroid Diagnosis Active Laura ism, ism, [place] unspecified unspecified [id number] Hyperlipide Hyperlipide Diagnosis Active Laura clemente, clemente, [place] unspecified unspecified [id number] senior living long term Diagnosis Active Laura (current) (current) [place] use of use of [id number] insulin insulin long term senior living Diagnosis Active Laura (current) (current) [place] use of use of [id number] anticoagula anticoagula nts nts senior living long term Diagnosis Active Laura (current) (current) [place] use of use of [id number] opiate opiate analgesic analgesic Presence of Presence of Diagnosis Active Laura coronary coronary [place] angioplasty angioplasty [id number] implant and implant and graft graft Personal Personal Diagnosis Active Laura history of history of [place] 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 Pain frequent Pain Mgmt Resolve 2017-042018-05-08 Roselyn pain d 0-10 08:50:00 (Radha) 11:15: [place] 00 [id number] Cardio edema Cardiovasc Resolve 2017-042018-02-20 Roselyn ular d 0-10 09:50:00 (Radha) 11:15: [place] [id number] Respiratory dyspnea Respirator Resolve 2017-042018-02-15 Roselyn present y d 0-10 10:20:00 (Radha) 11:15: [place] [id number] Endo/Edgard glucose Endo/Edgard Resolve 2017-042018-03-20 Roselyn testing d 0-10 12:30:00 (Radha) dependence 11:15: [place] 00 [id number] Endo/Edgard knowledge/s Endo/Edgard Resolve 2017-042018-03-06 Roselyn kill d 0-10 09:30:00 (Radha) deficit: pt 11:15: [place] 00 [id number] Endo/Edgard anti-coagul Endo/Edgard Resolve 2017-042018-03-20 Roselyn ation d 0-10 12:30:00 (Radha) therapy 11:15: [place] 00 [id number] Endo/Edgard diabetic Endo/Edgard Resolve 2017-042018-03-06 Roselyn foot care d 0-10 09:30:00 (Radha) 11:15: [place] [id number] Sensory impaired Sensory Resolve 2017-042018-03-22 Roselyn hearing d 0-10 09:55:00 (Radha) 11:15: [place] [id number] Integument pressure Integument Resolve 2017-042018-08-21 Roselyn ulcer d 0-10 12:45:00 (Radha) present 11:15: [place] [id number] Integument skin Integument Resolve 2017-042018-03-03 Roselyn integrity d 0-10 09:19:00 (Radha) risk 11:15: [place] [id number] Integument surgical Integument Resolve 2017-042018-03-03 Quality wound d 0-10 09:19:00 Realtime7 present 11:15: 00 Integument other wound Integument Resolve 2017-042018-03-03 Quality present d 0-10 09:19:00 Realtime7 11:15: 00 Elimination urinary Eliminatio Resolve 2017-042018-03-20 Roselyn incontinenc n d 0-10 12:30:00 (Radha) e 11:15: [place] [id number] Neuro confusion Neuro/Emot Resolve 2017-042018-03-22 Roselyn present ion d 0-10 09:55:00 (Radha) 11:15: [place] [id number] Neuro anxiety Neuro/Emot Resolve 2017-042018-03-22 Roselyn present ion d 0-10 09:55:00 (Radha) 11:15: [place] [id number] Neuro impaired Neuro/Emot Resolve 2017-042018-03-22 Roselyn decision-ma ion d 0-10 09:55:00 (Radha) pj 11:15: [place] [id number] Activity ADL Activity Resolve 2017-042018-03-22 Roselyn assistance d 0-10 09:55:00 (Radha) required 11:15: [place] [id number] Safety structural Safety Resolve 2017-042018-03-22 Roselyn barriers d 0-10 09:55:00 (Radha) present 11:15: [place] 00 [id number] Safety fall risk Safety Resolve 2017-042018-03-22 Roselyn factor d 0-10 09:55:00 (Radha) present 11:15: [place] 00 [id number] Safety risk for Safety Resolve 2017-042018-03-22 Roselyn hospitaliza d 0-10 09:55:00 (Radha) tion 11:15: [place] [id number] Safety can be left Safety Resolve 2017-042018-03-22 Roselyn alone for d 0-10 09:55:00 (Radha) only short 11:15: [place] periods 00 [id number] Medication oral med Meds Resolve 2017-042018-02-06 Roselyn assistance d 0-10 09:15:00 (Radha) required 11:15: [place] [id number] Medication injectable Meds Resolve 2017-042018-02-06 Roselyn med d 0-10 09:15:00 (Radha) assistance 11:15: [place] required 00 [id number] Medication knowledge/s Meds Resolve 2017-042018-02-15 Roselyn kill d 0-10 10:20:00 (Radha) deficit: pt 11:15: [place] [id number] Medication potential Meds Resolve 2017-042018-02-15 Roselyn clinically d 0-10 10:20:00 (Radha) significant 11:15: [place] medication 00 [id number] issue Musculoskel transfer Musculoske Resolve 2017-042018-03-20 Roselyn etal assistance letal d 0-10 12:30:00 (Radha) required 11:15: [place] 00 [id number] Musculoskel requires Musculoske Resolve 2017-042018-03-20 Roselyn etal human letal d 0-10 12:30:00 (Radha) assist to 11:15: [place] leave home 00 [id number] Safety knowledge/s Safety Resolve 2017-042018-03-22 Laura kill d 0-12 09:55:00 [place] deficit: pt 10:00: [id number] 00 Respiratory knowledge/s Respirator Resolve 2017-042018-02-06 Laura kill y d 0-15 09:15:00 [place] deficit: cg 10:00: [id number] 00 Respiratory lung sounds Respirator Resolve 2017-042018-02-06 Laura deficit y d 0-15 09:15:00 [place] 10:00: [id number] 00 Sensory impaired Sensory Resolve 2017-042018-03-22 Quality verbal d 0-17 09:55:00 Realtime7 communicati 18:36: on 42 Musculoskel knowledge/s Musculoske Resolve 2017-042018-03-03 Laura etal kill letal d 0-24 09:19:00 [place] deficit: cg 09:45: [id number] 00 Nutrition knowledge/s Nutrition Resolve 2017-042018-03-03 Laura kill d 0-26 09:19:00 [place] deficit: pt 09:15: [id number] 00 Nutrition nutritional Nutrition Resolve 2017-042018-03-03 Laura restriction d 0-26 09:19:00 [place] s 09:15: [id number] 00 Elimination catheter Eliminatio Resolve 2017-042018-03-20 Laura present n d 0-26 12:30:00 [place] 09:15: [id number] 00 Elimination constipatio Eliminatio Resolve 2017-042018-03-20 Laura n n d 0-26 12:30:00 [place] 09:15: [id number] 00 Infection s/s of Infection Resolve 2017-042018-03-22 Laura infection d 0-31 09:55:00 [place] 09:30: [id number] 00 Endo/Edgard insulin Endo/Edgard Resolve 2017-042018-03-20 Laura admn d 04-22 12:30:00 [place] dependence 09:50: [id number] 00 Respiratory dyspnea Respirator Resolve 2017-042018-03-08 Laura present y d 04-24 09:20:00 [place] 10:07: [id number] 00 Safety cannot be Safety Resolve 2017-042018-03-22 Laura left alone d 04-24 09:55:00 [place] 10:07: [id number] 00 Cardio edema Cardiovasc Resolve 2017-042018-03-03 Laura ular d 04-26 09:19:00 [place] 09:51: [id number] 00 Respiratory Incentive Respirator Resolve 2017-042018-03-03 Laura Spirometer y d 04-26 09:19:00 [place] /Acapella 09:51: [id number] Device 00 treatments in home Endo/Edgard knowledge/s Endo/Edgard Resolve 2017-042018-03-20 Laura kill d 05-08 12:30:00 [place] deficit: pt 09:20: [id number] 00 Nutrition knowledge/s Nutrition Resolve 2017-042018-04-19 Laura kill d 05-08 09:45:00 [place] deficit: pt 09:20: [id number] 00 Nutrition nutritional Nutrition Resolve 2017-042018-04-19 Laura restriction d 05-08 09:45:00 [place] roe 09:20: [id number] 00 Endo/Edgard diabetic Endo/Edgard Resolve 2017-042018-03-20 Laura foot care d 05-14 12:30:00 [place] 09:20: [id number] 00 Pain frequent Pain Mgmt Unknown 2017-04 Laura pain 05-18 [place] 12:45: [id number] 00 Respiratory dyspnea Respirator Resolve 2017-042018-03-20 Laura present y d 05-18 12:30:00 [place] 12:45: [id number] 00 Integument pressure Integument Unknown 2017-04 Laura ulcer 05-18 [place] present 12:45: [id number] 00 Integument surgical Integument Resolve 2017-042018-03-24 Laura wound d 05-18 11:23:00 [place] present 12:45: [id number] 00 Endo/Edgard diabetic Endo/Edgard Resolve 2017-042018-03-24 Laura foot care d 05-23 11:23:00 [place] 09:55: [id number] 00 Elimination catheter Eliminatio Resolve 2017-042018-04-19 Laura present n d 05-23 09:45:00 [place] 09:55: [id number] 00 Safety risk for Safety Resolve 2017-042018-04-19 Laura hospitaliza d 05-25 09:45:00 [place] tion 11:23: [id number] 00 Safety can be left Safety Resolve 2017-042018-04-19 Laura alone for d 05-25 09:45:00 [place] only short 11:23: [id number] periods 00 Musculoskel knowledge/s Musculoske Resolve 2017-042018-03-29 Laura etal kill letal d 05-28 09:30:00 [place] deficit: cg 10:20: [id number] 00 Musculoskel requires Musculoske Resolve 2017-042018-04-12 Laura etal human letal d 05-28 09:45:00 [place] assist to 10:20: [id number] leave home 00 Endo/Edgard diabetic Endo/Edgard Resolve 2017-042018-04-19 Laura foot care d 05-30 09:45:00 [place] 09:30: [id number] 00 Elimination constipatio Eliminatio Resolve 2017-042018-04-12 Laura n n d 05-30 09:45:00 [place] 09:30: [id number] 00 Pain frequent Pain Mgmt Unknown 2017-04 Laura pain 06-06 [place] 09:45: [id number] 00 Endo/Edgard insulin Endo/Edgard Resolve 2017-042018-04-19 Laura admn d 06-06 09:45:00 [place] dependence 09:45: [id number] 00 Endo/Edgard anti-coagul Endo/Edgard Resolve 2017-042018-04-19 Laura ation d 06-06 09:45:00 [place] therapy 09:45: [id number] 00 Integument surgical Integument Resolve 2017-042018-04-05 Laura wound d 06-06 09:45:00 [place] present 09:45: [id number] 00 Integument skin Integument Resolve 2017-042018-04-05 Laura integrity d 06-06 09:45:00 [place] risk 09:45: [id number] 00 Integument pressure Integument Unknown 2017-04 Laura ulcer 06-06 [place] present 09:45: [id number] 00 Elimination UTI within Eliminatio Resolve 2017-042018-04-12 Laura past 14 n d 06-06 09:45:00 [place] days 09:45: [id number] 00 Activity ADL Activity Resolve 2017-042018-09-15 Laura assistance d 2- 10:35:00 [place] required 09:45: [id number] 00 Safety fall risk Safety Resolve 2017-042018-04-19 Laura factor d 2 09:45:00 [place] present 09:45: [id number] 00 Medication potential Meds Resolve 2017-042018-04-19 Laura clinically d 2 09:45:00 [place] significant 09:45: [id number] medication 00 issue Medication oral med Meds Resolve 2017-042018-04-05 Shari assistance d 06-06 09:45:00 Rege[place] required 09:45: [id number] 00 Medication injectable Meds Resolve 2017-042018-08-09 Shari med d 06-06 09:20:00 Re[place]zi assistance 09:45: [id number] required 00 Musculoskel transfer Musculoske Resolve 2017-042018-04-12 Shari etal assistance letal d 06-06 09:45:00 [place] required 09:45: [id number] 00 Medication oral med Meds Resolve 2017-042018-04-19 Laura assistance d 2 09:45:00 [place] required 10:00: [id number] 00 Medication injectable Meds Unknown 2017-04 Laura med 06-08 [place] assistance 10:00: [id number] required 00 Sensory impaired Sensory Resolve 2017-042018-04-19 Nima verbal d 2- 09:45:00 [place] communicati 15:20: [id number] on 00 Sensory impaired Sensory Resolve 2017-042018-04-19 Nima hearing d 2 09:45:00 [place] 15:20: [id number] 00 Medication injectable Meds Unknown 2017-04 Nhung med - Pérez assistance 14:56: [id number] required 00 Medication injectable Meds Unknown Nima med 04-13 [place] assistance 13:50: [id number] required 00 Elimination constipatio Eliminatio Resolve 2018-04-19 Laura jarvis n d 04-14 09:45:00 [place] 09:28: [id number] 00 Medication injectable Meds Unknown Laura med 04-17 [place] assistance 10:00: [id number] required 00 Medication injectable Meds Resolve 2018-04-19 Laura med d -09 09:45:00 [place] assistance 09:45: [id number] required 00 Endo/Edgard anti-coagul Endo/Edgard Resolve 2018-04-26 Laura ation d -11 10:15:00 [place] therapy 09:45: [id number] 00 Nutrition knowledge/s Nutrition Resolve 2018-04-26 Laura kill d 04-21 10:15:00 [place] deficit: pt 09:45: [id number] 00 Nutrition nutritional Nutrition Resolve 2018-04-26 Laura restriction d 04-21 10:15:00 [place] s 09:45: [id number] 00 Elimination catheter Eliminatio Resolve 2018-04-26 Laura present n d 04-21 10:15:00 [place] 09:45: [id number] 00 Elimination constipatio Eliminatio Resolve 2018-04-26 Laura n n d 04-21 10:15:00 [place] 09:45: [id number] 00 Safety risk for Safety Resolve 2018-04-26 Laura hospitaliza d 04-21 10:15:00 [place] tion 09:45: [id number] 00 Safety can be left Safety Resolve 2018-04-26 Laura alone for d 04-21 10:15:00 [place] only short 09:45: [id number] periods 00 Sensory impaired Sensory Resolve 2018-04-26 Nima verbal d 1-11 10:15:00 [place] communicati 14:30: [id number] on 00 Sensory impaired Sensory Resolve 2018-04-26 Nima hearing d 1-11 10:15:00 [place] 14:30: [id number] 00 Sensory impaired Sensory Resolve 2018-04-28 Nima verbal d 1-17 10:20:00 [place] communicati 12:45: [id number] on 00 Sensory impaired Sensory Resolve 2018-04-28 Nima hearing d 1-17 10:20:00 [place] 12:45: [id number] 00 Endo/Edgard anti-coagul Endo/Edgard Resolve 2018-05-24 Laura ation d 18 12:30:00 [place] therapy 10:20: [id number] 00 Safety risk for Safety Active Laura hospitaliza 1-18 [place] tion 10:20: [id number] 00 Safety can be left Safety Resolve 2018-05-10 Laura alone for d 1- 13:45:00 [place] only short 10:10: [id number] periods 00 Sensory impaired Sensory Resolve 2018-05-10 Jia hearing d 05-05 13:45:00 [place] 13:30: t 00 [id number] Sensory impaired Sensory Resolve 2018-05-10 Jia verbal d 05-05 13:45:00 [place] communicati 13:30: t on [id number] Elimination catheter Eliminatio Resolve 2018-05-08 Wandy present n d 05-08 08:50:00 ,Kaylee 08:50: 00 Elimination constipatio Eliminatio Resolve 2018-06-28 Wandy n n d 05-08 09:45:00 ,Kaylee 08:50: 00 Safety cannot be Safety Resolve 2018-05-10 Laura left alone d 05-08 13:45:00 [place] 08:50: [id number] 00 Elimination catheter Eliminatio Resolve 2018-05-12 Shari present n d 2 09:30:00 Regeczi 09:30: [id number] 00 Safety can be left Safety Resolve 2018-05-17 Laura alone for d 2- 10:00:00 [place] only short 09:30: [id number] Elimination urinary Eliminatio Resolve 2018-05-15 Laura incontinenc n d 2- 08:45:00 [place] e 08:45: [id number] 00 Pain frequent Pain Mgmt Resolve 2018-05-17 Laura pain d 2-06 10:00:00 [place] 10:00: [id number] 00 Respiratory lung sounds Respirator Resolve 2018-05-22 Laura deficit y d 2-06 10:44:00 [place] 10:00: [id number] 00 Integument pressure Integument Unknown Laura ulcer 2- [place] present 10:00: [id number] 00 Integument skin Integument Resolve 2018-05-17 Laura integrity d 2-06 10:00:00 [place] risk 10:00: [id number] 00 Integument surgical Integument Resolve 2018-05-17 Laura wound d 2-06 10:00:00 [place] present 10:00: [id number] 00 Activity ADL Activity Unknown Laura assistance 2- [place] required 10:00: [id number] 00 Activity self-care Activity Resolve 2018-05-19 Laura deficit d 2-06 11:15:00 [place] 10:00: [id number] 00 Safety fall risk Safety Resolve 2018-05-19 Laura factor d 2- 11:15:00 [place] present 10:00: [id number] 00 Elimination urinary Eliminatio Resolve 2018-05-24 [place] incontinenc n d 2-08 12:30:00 ,Kaylee e 11:15: 00 Safety can be left Safety Resolve 2018-05-24 Laura alone for d 2- 12:30:00 [place] only short 11:15: [id number] 00 Safety fall risk Safety Resolve 2018-05-24 Sonia White factor d 2-12 12:30:00 present 09:48: 41 Endo/Edgard glucose Endo/Edgard Resolve 2018-05-24 Laura tolerance d 2-13 12:30:00 [place] problem 12:30: [id number] 00 Respiratory Incentive Respirator Resolve 2018-06-07 Laura Spirometer y d 2-15 12:00:00 [place] /[place]capella 13:40: [id number] Device 00 treatments in home Endo/Edgard anti-coagul Endo/Edgard Resolve 2018-06-12 Laura ation d 2-15 09:30:00 [place] therapy 13:40: [id number] 00 Elimination urinary Eliminatio Resolve 2018-05-26 Laura incontinenc n d 2-15 13:40:00 [place] e 13:40: [id number] 00 Safety can be left Safety Resolve 2018-06-07 Laura alone for d 2-15 12:00:00 [place] only short 13:40: [id number] periods 00 Endo/Edgard glucose Endo/Edgard Resolve 2018-06-07 Cherrise tolerance d 06-02 12:00:00 Trixie problem 10:15: [id number] 00 Endo/Edgard insulin Endo/Edgard Resolve 2018-06-12 Cherrise admn d 06-02 09:30:00 [place] dependence 10:15: [id number] 00 Endo/Edgard glucose Endo/Edgard Resolve 2018-06-12 Cherrise testing d 06-02 09:30:00 [place] dependence 10:15: [id number] 00 Safety fall risk Safety Resolve 2018-06-07 Cher[place] factor d 06-02 12:00:00 [place] present 10:15: [id number] 00 Musculoskel transfer Musculoske Active Cherrise etal assistance letal 06-02 Trixie required 10:15: [id number] 00 Musculoskel requires Musculoske Active Cherrise etal human letal 06-02 Trixie assist to 10:15: [id number] leave home 00 Elimination urinary Eliminatio Resolve 2018-06-07 Laura incontinenc n d 06-05 12:00:00 [place] e 12:30: [id number] 00 Activity self-care Activity Resolve 2018-08-14 Laura deficit d 06-05 12:10:00 [place] 12:30: [id number] 00 Elimination urinary Eliminatio Resolve 2018-06-12 Laura incontinenc n d 06-09 09:30:00 [place] e 09:13: [id number] 00 Safety can be left Safety Resolve 2018-06-12 Laura alone for d 06-09 09:30:00 [place] only short 09:13: [id number] periods 00 Respiratory Incentive Respirator Resolve 2018-06-14 Laura Spirometer y d 06-12 09:30:00 [place] /[place]ella 09:30: [id number] Device 00 treatments in home Endo/Edgard anti-coagul Endo/Edgard Resolve 2018-06-30 Laura ation d 06-14 09:19:00 [place] therapy 09:30: [id number] 00 Safety can be left Safety Resolve 2018-06-30 Laura alone for d 3- 09:19:00 [place] only short 09:30: [id number] periods 00 Elimination urinary Eliminatio Resolve 2018-06-19 Laura incontinenc n d 3-08 13:45:00 [place] e 09:45: [id number] 00 Elimination urinary Eliminatio Resolve 2018-06-28 Laura incontinenc n d 3- 09:45:00 [place] e 13:15: [id number] 00 Elimination constipatio Eliminatio Resolve 2018-07-14 Laura n n d 3 09:20:00 [place] 09:19: [id number] 00 Endo/Edgard anti-coagul Endo/Edgard Resolve 2018-07-14 Laura ation d 3 09:20:00 [place] therapy 12:49: [id number] 00 Elimination urinary Eliminatio Resolve 2018-07-14 Laura incontinenc n d 07-03 09:20:00 [place] e 12:49: [id number] 00 Safety can be left Safety Resolve 2018-08-18 Laura alone for d 3- 12:05:00 [place] only short 12:50: [id number] periods 00 Endo/Edgard glucose Endo/Edgard Resolve 2018-07-14 Shi testing d 07-10 09:20:00 Sorin, dependence 12:30: [id number] 00 Pain frequent Pain Mgmt Resolve 2018-07-14 Laura pain d 4 09:20:00 [place] 09:20: [id number] 00 Integument surgical Integument Resolve 2018-08-13 Laura wound d 4-05 12:50:00 [place] present 09:20: [id number] 00 Integument skin Integument Resolve 2018-08-13 Laura integrity d 4-05 12:50:00 [place] risk 09:20: [id number] 00 Safety fall risk Safety Resolve 2018-08-18 Laura factor d 4-05 12:05:00 [place] present 09:20: [id number] 00 Endo/Edgard anti-coagul Endo/Edgard Resolve 2018-08-14 Laura ation d 07-17 12:10:00 [place] therapy 13:00: [id number] 00 Elimination urinary Eliminatio Resolve 2018-07-21 Laura incontinenc n d 07-17 09:25:00 [place] e 13:00: [id number] 00 Activity ADL Activity Unknown Laura assistance 07-17 [place] required 13:00: [id number] 00 Elimination urinary Eliminatio Resolve 2018-08-14 Laura incontinenc n d 07-24 12:10:00 [place] e 09:27: [id number] 00 Pain frequent Pain Mgmt Resolve 2018 Laura pain d 08-07 09:20:00 [place] 12:45: [id number] 00 Cardio edema Cardiovasc Resolve 2018 Laura ular d 08-07 09:20:00 [place] 12:45: [id number] 00 Respiratory dyspnea Respirator Resolve 2018 Laura present y d 08-07 09:20:00 [place] 12:45: [id number] 00 Endo/Edgard diabetic Endo/Edgard Resolve 2018-08-14 Laura foot care d 08-07 12:10:00 [place] 12:45: [id number] 00 Nutrition knowledge/s Nutrition Active Laura kill 08-07 [place] deficit: pt 12:45: [id number] 00 Nutrition nutritional Nutrition Active Laura restriction 08-07 [place] s 12:45: [id number] 00 Neuro confusion Neuro/Emot Resolve 2018-08-14 Laura present ion d 08-07 12:10:00 [place] 12:45: [id number] 00 Medication oral med Meds Resolve 2018 Laura assistance d 08-07 09:20:00 [place] required 12:45: [id number] 00 Medication injectable Meds Resolve 2018 Jia med d 08-07 09:20:00 Jerardo assistance 12:45: [id number] required 00 Cardio edema Cardiovasc Resolve 2018-08-23 Laura ular d 08-13 11:15:00 [place] 12:50: [id number] 00 Respiratory dyspnea Respirator Resolve 2018-08-14 Laura present y d 08-13 12:10:00 [place] 12:50: [id number] 00 Endo/Edgard anti-coagul Endo/Edgard Resolve 2018-08-28 Laura ation d 08-16 12:00:00 [place] therapy 12:15: [id number] 00 Elimination urinary Eliminatio Resolve 2018-08-21 Laura incontinenc n d 08-16 12:45:00 [place] e 12:15: [id number] 00 Sensory impaired Sensory Resolve 2018-08-21 Krystyna verbal d 08-17 12:45:00 [place] communicati 14:30: [id number] on 00 Sensory impaired Sensory Resolve 2018-08-21 Krystyna hearing d 08-17 12:45:00 [place] 14:30: [id number] 00 Social financial LILLIAN: Resolve 2019-02-16 Krystyna Services resource Social d 08-17 13:45:00 [place] deficit Services 14:30: [id number] 00 Social knowledge/s LILLIAN: Resolve 2018-08-17 Krystyna Services kill Social d 08-17 14:30:00 [place] deficit - Services 14:30: [id number] pt 00 Social knowledge/s LILLIAN: Resolve 2018-08-17 Krystyna Services kill Social d 08-17 14:30:00 [place] deficit - Services 14:30: [id number] cg 00 Safety can be left Safety Resolve 2018-09-07 Laura alone for d 08-23 10:00:00 [place] only short 11:15: [id number] periods 00 Social knowledge/s LILLIAN: Active Laura Services kill Social 08-23 [place] deficit - Services 11:15: [id number] pt 00 Elimination urinary Eliminatio Resolve 2018-09-07 Laura incontinenc n d 08-25 10:00:00 [place] e 11:45: [id number] 00 Sensory impaired Sensory Resolve 2018-09-07 Krystyna verbal d 09-01 10:00:00 [place] communicati 14:45: [id number] on 00 Sensory impaired Sensory Resolve 2018-09-07 Krystyna hearing d 09-01 10:00:00 [facility] [id number] 00 Social knowledge/s LILLIAN: Active Krystyna Services kill Social 09-01 [facility] deficit - Services 14:45: [id number] cg 00 Respiratory dyspnea Respirator Resolve 2018-09-15 Laura present y d 09-07 10:35:00 [place] 10:00: [id number] 00 Pain frequent Pain Mgmt Resolve 2018-09-11 Laura pain d 09-11 11:50:00 [place] 11:50: [id number] 00 Cardio hypertensio Cardiovasc Resolve 2018-09-11 Laura n ular d 09-11 11:50:00 [place] 11:50: [id number] 00 Integument pressure Integument Resolve 2018-09-15 Laura ulcer d 09-11 10:35:00 [place] present 11:50: [id number] 00 Integument surgical Integument Resolve 2018-09-15 Laura wound d 09-11 10:35:00 [place] present 11:50: [id number] 00 Integument skin Integument Resolve 2018-09-15 Laura integrity d 09-11 10:35:00 [place] risk 11:50: [id number] 00 Elimination urinary Eliminatio Resolve 2018-09-11 Laura incontinenc n d 09-11 11:50:00 [place] e 11:50: [id number] 00 Activity ADL Activity Unknown Laura assistance 09-11 Jean[place]Cla[place] required 11:50: [id number] 00 Activity self-care Activity Resolve 2018-09-15 Laura deficit d 09-11 10:35:00 [place] 11:50: [id number] 00 Safety fall risk Safety Resolve 2018-09-15 Laura factor d 09-11 10:35:00 [place] present 11:50: [id number] 00 Safety can be left Safety Resolve 2018-09-15 Laura alone for d 09-11 10:35:00 [place] only short 11:50: [id number] periods 00 Endo/Edgard anti-coagul Endo/Edgard Resolve 2018-09-18 Laura ation d 6-07 12:20:00 [place] therapy 10:35: [id number] 00 Elimination urinary Eliminatio Resolve 2018-09-18 Laura incontinenc n d 09-15 12:20:00 [place] e 10:35: [id number] 00 Elimination constipatio Eliminatio Resolve 2018-09-18 Laura n n d 09-15 12:20:00 [place] 10:35: [id number] 00 Safety can be left Safety Resolve 2018-09-25 Lauar alone for d 09-18 11:45:00 [place] only short 12:20: [id number] periods 00 Cardio hypertensio Cardiovasc Resolve 2018-09-21 Laura n ular d 09-21 11:45:00 [place] 11:45: [id number] 00 Endo/Edgard anti-coagul Endo/Edgard Resolve 2018-09-25 Laura ation d 09-21 11:45:00 [place] therapy 11:45: [id number] 00 Cardio hypertensio Cardiovasc Resolve 2018-10-02 Laura n ular d 09-25 12:05:00 [place] 11:45: [id number] 00 Elimination urinary Eliminatio Resolve 2018-10-02 Laura incontinenc n d 09-25 12:05:00 [place] e 11:45: [id number] 00 Endo/Edgard anti-coagul Endo/Edgard Resolve 2018-10-02 Laura ation d 09-29 12:05:00 [place] therapy 09:45: [id number] 00 Safety can be left Safety Resolve 2018-10-02 Laura alone for d 09-29 12:05:00 [place] only short 09:45: [id number] periods 00 Endo/Edgard anti-coagul Endo/Edgard Resolve 2018-10-27 Laura ation d 10-04 11:30:00 [place] therapy 10:10: [id number] 00 Elimination urinary Eliminatio Resolve 2018-10-06 Laura incontinenc n d 10-04 09:10:00 [place] e 10:10: [id number] 00 Elimination constipatio Eliminatio Resolve 2018-10-06 Laura n n d 10-04 09:10:00 [place] 10:10: [id number] 00 Safety can be left Safety Resolve 2018-10-06 Laura alone for d 10-04 09:10:00 [place] only short 10:10: [id number] periods 00 Sensory impaired Sensory Resolve 2018-10-23 Krystyna verbal d 6 11:56:00 [place] communicati 15:00: [id number] on 00 Sensory impaired Sensory Resolve 2018-10-23 Krystyna hearing d 10-05 11:56:00 [place] 15:00: [id number] 00 Elimination urinary Eliminatio Resolve 2018-10-27 Laura incontinenc n d 10-09 11:30:00 [place] e 12:15: [id number] 00 Elimination bloody Eliminatio Resolve 2018-10-27 Laura urine n d 10-09 11:30:00 [place] 12:15: [id number] 00 Safety can be left Safety Resolve 2018-10-23 Laura alone for d 10-09 11:56:00 [place] only short 12:15: [id number] Elimination constipatio Eliminatio Resolve 2018-12-08 Laura n n d 10-16 14:00:00 [place] 12:35: [id number] 00 Cardio edema Cardiovasc Resolve 2018-10-27 Laura ular d 10-20 11:30:00 [place] 11:35: [id number] 00 Endo/Edgard knowledge/s Endo/Edgard Resolve 2018-10-27 Laura kill d 10-20 11:30:00 [place] deficit: pt 11:35: [id number] 00 Sensory impaired Sensory Unknown Jonatan verbal 7-15 Demarco, communicati 13:30: PT on [id number] Sensory impaired Sensory Unknown Jonatan hearing 7-15 Demarco, 13:30: PT 00 [id number] Safety can be left Safety Resolve 2018-10-27 Laura alone for d 7- 11:30:00 [place] only short 10:35: [id number] periods 00 Endo/Edgard glucose Endo/Edgard Resolve 2018-12-11 Cherrise tolerance d 10-30 09:30:00 Trixie problem 11:55: [id number] 00 Endo/Edgard insulin Endo/Edgard Resolve 2018-12-13 Cherrise admn d 10-30 11:10:00 [place] dependence 11:55: [id number] 00 Endo/Edgard glucose Endo/Edgard Resolve 2018-12-13 Cherrise testing d 10-30 11:10:00 [place] dependence 11:55: [id number] 00 Endo/Edgard knowledge/s Endo/Edgard Resolve 2018-12-08 Cherrise kill d 10-30 14:00:00 [place] deficit: pt 11:55: [id number] 00 Elimination urinary Eliminatio Resolve 2018-12-08 Cherrise urgency n d 10-30 14:00:00 Trixie 11:55: [id number] 00 Neuro depressive Neuro/Emot Resolve 2018-12-08 Cherrise feelings ion d 10-30 14:00:00 [place] present 11:55: [id number] 00 Neuro impaired Neuro/Emot Resolve 2018-12-08 Cherrise decision-ma ion d 10-30 14:00:00 [place] pj 11:55: [id number] 00 Safety fall risk Safety Resolve 2018-12-06 Cherrise factor d 10-30 13:05:00 [place] present 11:55: [id number] 00 Endo/Edgard anti-coagul Endo/Edgard Resolve 2018-12-13 Shi ation d 11-01 11:10:00 Sorin, therapy 12:30: [id number] 00 Respiratory Incentive Respirator Resolve 2018-11-29 Cherrise Spirometer y d 11-03 10:15:00 Trixie /Acapella 10:25: [id number] Device 00 treatments in home Elimination urinary Eliminatio Resolve 2018-12-08 Cherrise frequency n d 11-03 14:00:00 [place] 10:25: [id number] 00 Respiratory lung sounds Respirator Resolve 2018-11-29 [place] deficit y d 11-06 10:15:00 Trixie 12:05: [id number] 00 Neuro memory Neuro/Emot Resolve 2018-12-08 [place] deficit ion d 7-31 14:00:00 [place] needing 10:30: [id number] supervision 00 Pain frequent Pain Mgmt Resolve 2018-12-06 Shi pain d 11-10 13:05:00 Sorin, 11:00: [id number] 00 Integument pressure Integument Active Shi ulcer 11-10 Sorin, present 11:00: [id number] 00 Integument surgical Integument Active Shi wound 11-10 Sorin, present 11:00: [id number] 00 Integument skin Integument Active Shi integrity 11-10 Sorin, risk 11:00: [id number] 00 Elimination urinary Eliminatio Resolve 2018-12-08 Shi incontinenc n d 11-10 14:00:00 Sorin, e 11:00: [id number] 00 Activity self-care Activity Resolve 2018-11-29 Shi deficit d 11-10 10:15:00 Sorin, 11:00: [id number] 00 Activity ADL Activity Resolve 2018-12-08 Shi assistance d 11-10 14:00:00 [place]in, required 11:00: [id number] 00 Pain knowledge/s Pain Mgmt Resolve 2018-12-06 Krystyna kill d 11-16 13:05:00 [place] deficit: cg 15:15: [id number] 00 Respiratory knowledge/s Respirator Resolve 2018-11-29 Krystyna kill y d 11-16 10:15:00 [place] deficit: cg 15:15: [id number] 00 Integument knowledge/s Integument Active 2018- Krystyna kill 11-16 [place] deficit: cg 15:15: [id number] 00 Elimination knowledge/s Eliminatio Resolve 2018-12-08 Krystyna kill n d 11-16 14:00:00 [place] deficit: cg 15:15: [id number] 00 Safety knowledge/s Safety Resolve 2018-12-06 Krystyna kill d 11-16 13:05:00 [place] deficit: cg 15:15: [id number] 00 Cardio hypertensio Cardiovasc Resolve 2018-11-29 Lenny ruiz d 11-17 10:15:00 Trixie 10:45: [id number] 00 Safety can be left Safety Resolve 2018-12-08 Shi alone for d 11-22 14:00:00 nancy Rowell 11:00: [id number] periods 00 Sensory impaired Sensory Resolve 2018-12-08 Laura verbal d 11-24 14:00:00 [place] communicati 09:30: [id number] on Sensory impaired Sensory Resolve 2018-12-08 Laura hearing d 11-24 14:00:00 [place] 09:30: [id number] 00 Respiratory knowledge/s Respirator Resolve 2018-12-08 Laura kill y d 12-01 14:00:00 [place] deficit: cg 09:30: [id number] 00 Sensory impaired Sensory Unknown Krystyna verbal 12-08 [place] communicati 15:00: [id number] on Sensory impaired Sensory Unknown Krystyna hearing 12-08 [place] 15:00: [id number] 00 Respiratory knowledge/s Respirator Resolve 2018-12-13 Laura kill y d 12-11 11:10:00 [place] deficit: cg 09:30: [id number] 00 Endo/Edgard knowledge/s Endo/Edgard Resolve 2018-12-13 Laura kill d 12-11 11:10:00 [place] deficit: pt 09:30: [id number] 00 Elimination urinary Eliminatio Resolve 2018-12-15 Laura incontinenc n d 12-11 13:10:00 [place] e 09:30: [id number] 00 Safety can be left Safety Resolve 2018-12-15 Laura alone for d 12-11 13:10:00 [place] only short 09:30: [id number] 00 Endo/Edgard knowledge/s Endo/Edgard Resolve 2019-01-05 Laura kill d 12-15 11:00:00 [place] deficit: pt 13:10: [id number] 00 Endo/Edgard anti-coagul Endo/Edgard Resolve 2019-01-05 Laura ation d 12-15 11:00:00 [place] therapy 13:10: [id number] 00 Elimination urinary Eliminatio Resolve 2018-12-27 Laura incontinenc n d 12-18 09:20:00 [place] e 12:10: [id number] 00 Safety can be left Safety Resolve 2019-01-05 Laura alone for d 12-18 11:00:00 [place] only short 12:10: [id number] periods 00 Elimination constipatio Eliminatio Resolve 2019-01-05 Laura n n d 12-20 11:00:00 [place] 12:15: [id number] 00 Pain frequent Pain Mgmt Resolve 2019-01-15 Laura pain d 12-27 12:30:00 [place] 09:20: [id number] 00 Respiratory dyspnea Respirator Resolve 2019-01-05 Laura present y d 12-27 11:00:00 [place] 09:20: [id number] 00 Endo/Edgard diabetic Endo/Edgard Resolve 2019-01-05 Laura foot care d 12-27 11:00:00 [place] 09:20: [id number] 00 Elimination diarrhea Eliminatio Resolve 2019-01-05 Laura n d 12-27 11:00:00 [place] 09:20: [id number] 00 Neuro confusion Neuro/Emot Resolve 2019-01-05 Laura present ion d 12-27 11:00:00 [place] 09:20: [id number] 00 Neuro anxiety Neuro/Emot Resolve 2019-01-05 Laura present ion d 12-27 11:00:00 [place] 09:20: [id number] 00 Activity ADL Activity Resolve 2019-01-05 Laura assistance d 12-27 11:00:00 [place] required 09:20: [id number] 00 Activity self-care Activity Resolve 2019-01-05 Laura deficit d 12-27 11:00:00 [place] 09:20: [id number] 00 Safety fall risk Safety Resolve 2019-01-05 Laura factor d 9-18 11:00:00 [place] present 09:20: [id number] 00 Medication potential Meds Resolve 2019-01-05 Laura clinically d 9-18 11:00:00 [place] significant 09:20: [id number] medication 00 issue Elimination urinary Eliminatio Resolve 2019-01-05 Laura incontinenc n d 920 11:00:00 [place] e 11:20: [id number] 00 Endo/Edgard knowledge/s Endo/Edgard Resolve 2019-01-10 Laura kill d 01-08 10:00:00 [place] deficit: pt 11:30: [id number] 00 Endo/Edgard anti-coagul Endo/Edgard Resolve 2019-01-10 Laura ation d 01-08 10:00:00 [place] therapy 11:30: [id number] 00 Elimination urinary Eliminatio Resolve 2019-01-15 Laura incontinenc n d 01-08 12:30:00 [place] e 11:30: [id number] 00 Safety can be left Safety Resolve 2019-02-16 Laura alone for d 01-08 12:00:00 [place] only short 11:30: [id number] periods 00 Respiratory dyspnea Respirator Resolve 2018-042019-01-26 Laura present y d 0-02 10:00:00 [place] 10:00: [id number] 00 Activity ADL Activity Resolve 2018-042019-01-12 Laura assistance d 0-02 11:30:00 [place] required 10:00: [id number] 00 Activity self-care Activity Resolve 2018-042019-01-12 Laura deficit d 0-02 11:30:00 [place] 10:00: [id number] 00 Safety fall risk Safety Resolve 2018-042019-01-12 Laura factor d 0-02 11:30:00 [place] present 10:00: [id number] 00 Medication injectable Meds Resolve 2018-042019-01-17 Laura med d 0-02 09:45:00 [place] assistance 10:00: [id number] required 00 Endo/Edgard knowledge/s Endo/Edgard Resolve 2018-042019-01-15 Laura kill d 0-04 12:30:00 [place] deficit: pt 11:30: [id number] 00 Endo/Edgard anti-coagul Endo/Edgard Resolve 2018-042019-01-15 Laura ation d 0-04 12:30:00 [place] therapy 11:30: [id number] 00 Elimination constipatio Eliminatio Resolve 2018-042019-01-15 Laura n n d 0-04 12:30:00 [place] 11:30: [id number] 00 Sensory impaired Sensory Resolve 2018-042019-01-15 Krystyna verbal d 0-04 12:30:00 [place] communicati 15:30: [id number] on 00 Sensory impaired Sensory Resolve 2018-042019-01-15 Krystyna hearing d 0-04 12:30:00 [place] 15:30: [id number] 00 Infection s/s of Infection Resolve 2018-042019-03-09 Laura infection d 0-07 11:00:00 [place] 12:30: [id number] 00 Sensory impaired Sensory Resolve 2018-042019-01-22 Jonatan verbal d 0-08 11:00:00 ambrosio Pal 13:00: PT on [id number] Sensory impaired Sensory Resolve 2018-042019-01-22 Jonatan hearing d 0-08 11:00:00 Demarco, 13:00: PT 00 [id number] Endo/Edgard knowledge/s Endo/Edgard Resolve 2018-042019-02-07 Laura kill d 0-09 11:20:00 [place] deficit: pt 09:45: [id number] 00 Endo/Edgard anti-coagul Endo/Edgard Resolve 2018-042019-02-07 Laura ation d 0-09 11:20:00 [place] therapy 09:45: [id number] 00 Elimination urinary Eliminatio Resolve 2018-042019-02-02 Laura incontinenc n d 0-09 11:30:00 [place] e 09:45: [id number] 00 Elimination constipatio Eliminatio Resolve 2018-042019-02-02 Laura n n d 0-16 11:30:00 [place] 10:00: [id number] 00 Sensory impaired Sensory Resolve 2018-042019-01-31 Jonatan verbal d 0-17 11:10:00 ambrosio Pal 15:00: PT on [id number] Sensory impaired Sensory Resolve 2019-1 2019-01-31 Jonatan hearing d 0-17 11:10:00 Demarco, 15:00: PT 00 [id number] Pain frequent Pain Mgmt Resolve 2018-042019-02-16 Jonatan pain d 0-23 12:00:00 Demarco, 13:00: PT 00 [id number] Sensory impaired Sensory Unknown 2018-04 Jonatan verbal 0-23 Demarco, communicati 13:00: PT on 00 [id number] Sensory impaired Sensory Unknown 2018-04 Jonatan hearing 0-23 Demarco, 13:00: PT 00 [id number] Respiratory dyspnea Respirator Resolve 2018-042019-02-07 Laura present y d 0-25 11:20:00 [place] 11:30: [id number] 00 Elimination urinary Eliminatio Resolve 2018-042019-02-07 Laura incontinenc n d 0-28 11:20:00 [place] e 12:40: [id number] 00 Endo/Edgard knowledge/s Endo/Edgard Resolve 2018-042019-02-19 Laura kill d 04-11 12:40:00 [place] deficit: pt 12:30: [id number] 00 Endo/Edgard anti-coagul Endo/Edgard Resolve 2018-042019-02-19 Laura ation d 04-11 12:40:00 [place] therapy 12:30: [id number] 00 Elimination urinary Eliminatio Resolve 2018-042019-02-16 Laura incontinenc n d 04-11 12:00:00 [place] e 12:30: [id number] 00 Medication potential Meds Resolve 2018-042019-02-24 Laura clinically d 1 09:45:00 [place] significant 12:20: [id number] medication 00 issue Elimination constipatio Eliminatio Resolve 2018-042019-02-16 Laura n n d 04-16 12:00:00 [place] 11:20: [id number] 00 Elimination urinary Eliminatio Resolve 2018-042019-02-24 Laura incontinenc n d 04-21 09:45:00 [place] e 12:40: [id number] 00 Safety can be left Safety Resolve 2018-042019-02-24 Laura alone for d 04-21 09:45:00 Jean[place] only short 12:40: [id number] periods 00 Endo/Edgard knowledge/s Endo/Edgard Resolve 2018-042019-02-24 Laura kill d 1-13 09:45:00 [place] deficit: pt 12:05: [id number] 00 Endo/Edgard anti-coagul Endo/Edgard Resolve 2018-042019-02-24 Laura ation d 1- 09:45:00 [place] therapy 12:05: [id number] 00 Sensory impaired Sensory Resolve 2018-042019-02-26 Laura verbal d 04-26 13:20:00 [place] communicati 09:45: [id number] on 00 Sensory impaired Sensory Resolve 2018-042019-02-26 Laura hearing d 16 13:20:00 [place] 09:45: [id number] 00 Endo/Edgard knowledge/s Endo/Edgard Resolve 2018-042019-02-28 Laura kill d 04-28 11:15:00 [place] deficit: pt 13:20: [id number] 00 Endo/Edgard anti-coagul Endo/Edgard Resolve 2018-042019-02-28 Laura ation d 04-28 11:15:00 [place] therapy 13:20: [id number] 00 Elimination urinary Eliminatio Resolve 2018-042019-03-09 Laura incontinenc n d 04-28 11:00:00 [place] e 13:20: [id number] 00 Safety can be left Safety Resolve 2018-042019-03-05 Laura alone for d 04-28 12:45:00 [place] only short 13:20: [id number] periods 00 Endo/Edgard knowledge/s Endo/Edgard Resolve 2018-042019-03-09 Laura kill d 05-05 11:00:00 [place] deficit: pt 12:45: [id number] 00 Endo/Edgard anti-coagul Endo/Edgard Resolve 2018-042019-03-09 Laura ation d 05-05 11:00:00 [place] therapy 12:45: [id number] 00 Safety can be left Safety Resolve 2018-042019-03-09 Laura alone for d 05-07 11:00:00 [place] only short 11:25: [id number] periods 00 Sensory impaired Sensory Resolve 2018-042019-03-12 Krystyna verbal d 05-09 11:15:00 [place] communicati 12:00: [id number] on 00 Sensory impaired Sensory Resolve 2018-042019-03-12 Krystyna hearing d 05-09 11:15:00 [facility] 12:00: [id number] 00 Social financial LILLIAN: Active 2018-04 Krystyna Services resource Social 05-09 [facility] deficit Services 12:00: [id number] 00 Respiratory dyspnea Respirator Resolve 2018-042019-03-14 Laura present y d 05-13 10:30:00 [place] 11:15: [id number] 00 Endo/Edgard knowledge/s Endo/Edgard Active 2018-04 Laura kill 05-13 [place] deficit: pt 11:15: [id number] 00 Endo/Edgard anti-coagul Endo/Edgard Active 2018-04 Laura ation 05-13 Jean[place] therapy 11:15: [id number] 00 Elimination urinary Eliminatio Resolve 2018-042019-03-14 Laura incontinenc n d 05-13 10:30:00 [place] e 11:15: [id number] 00 Activity ADL Activity Resolve 2018-042019-03-14 Laura assistance d 05-13 10:30:00 [place] required 11:15: [id number] 00 Activity self-care Activity Resolve 2018-042019-03-14 Laura deficit d 05-13 10:30:00 [place] 11:15: [id number] 00 Safety fall risk Safety Resolve 2018-042019-03-14 Laura factor d 05-13 10:30:00 [place] present 11:15: [id number] 00 Safety can be left Safety Resolve 2018-042019-03-14 Laura alone for d - 10:30:00 [place] only short 11:15: [id number] periods 00 Medication injectable Meds Resolve 2018-042019-03-12 Laura med d 2- 11:15:00 [place] assistance 11:15: [id number] required 00 Safety can be left Safety Resolve 2018-042019-03-19 Laura alone for d 05-17 11:40:00 [place] only short 09:15: [id number] periods 00 Elimination urinary Eliminatio Active 2018-04 Laura incontinenc n - Jean-Claude e 11:40: [id number] 00 Safety can be left Safety Resolve 2018-042019-03-26 Laura alone for d 2- 11:00:00 [place] only short 11:30: [id number] periods 00 Allergies, Adverse Reactions, Alerts Allergy Name Allergy Status Severity Reaction(s) Onset Inactive Treating Comments Type Date Date Clinician bananas Unknown Active Unknown Reaction 2017-04 Roselyn Unknown 0-10 (Radha) Nithin [id number] keflex Unknown Active Unknown Reaction 2017-04 Roselyn Unknown 0-10 (Radha) Nithin [id number] nuts Unknown Active Unknown Reaction 2017-04 Roselyn Unknown 0-10 (Radha) Nithin [id number] Cipro Medication Active Unknown Reaction 2017-04 Sonia White Name ID Unknown 0-10 metronidazol Base Active Unknown Nausea and 2017-04 Roselyn e Ingredient vomiting 2-20 Guidelli [id number] Medications Ordered Filled Start Stop Current Ordering [...] 2 tabs Unknown 8.6 mg-50 8.6 mg-50 ,Jamie mg tablet mg tablet Metanx Metanx No [...] ,Jamie tablet tablet Rapaflo 8 Rapaflo 8 2017-04- No Shallish Unknown Unknown mg capsule mg [...] nded nded release release loperamide loperamide No Gaastra 1-2 Unknown 2 mg tablet 2 mg [...] pen s pen testosteron testosteron 2017-04 No Gaastra Unknown Unknown e cypionate e cypionate 06-06 Latanya DAVID 200 mg/mL 200 mg/mL intramuscul intramuscul ar kit ar kit mometasone mometasone 2017-04 No Gaastra Unknown Unknown 0.1 % 0.1 % 06-06 Latanya DAVID topical topical cream cream finasteride finasteride 2017-04 No Gaastra Unknown Unknown 5 mg tablet 5 mg tablet 06-06 Latanya DAVID Levemir Levemir 2017-04- No Gaastra Unknown Unknown FlexTouch FlexTouch 06-06 Latanya DAVID [...] tablet 08-09 MD,Jamie warfarin 5 warfarin 5 No Shallish Unknown Unknown mg tablet mg tablet 08-13 MD,Jamie amoxicillin amoxicillin Shallish Unknown Unknown 500 mg 500 mg 08-11 MD,Jamie tablet tablet doxycycline doxycycline No Shallish Unknown Unknown hyclate 100 hyclate 100 08-13 MD,Jamie mg capsule mg capsule warfarin 5 warfarin 5 Shallish Unknown Unknown mg tablet mg tablet 08-14 MD,Jamie warfarin 5 warfarin 5 No Shallish Unknown Unknown mg tablet mg tablet 08-16 MD,Jamie warfarin 5 warfarin 5 Shallish Unknown Unknown mg tablet mg tablet 08-18 MD,Jamie warfarin 5 warfarin 5 2018- No Shallish Unknown Unknown mg tablet mg tablet 08-21 MD,Jamie warfarin 5 warfarin 5 No Shallish Unknown Unknown mg tablet mg tablet 08-23 MD,Jamie Coumadin Coumadin Shallish Unknown Unknown 2.5 mg 2.5 mg 08-25 MD,Jamie tablet tablet Coumadin Coumadin Shallish Unknown Unknown 2.5 mg 2.5 mg 08-28 MD,Jamie tablet tablet Coumadin Coumadin No Shallish Unknown Unknown 2.5 mg 2.5 mg 09-0730 MD,Jamie tablet tablet Coumadin Coumadin No Shallish Unknown Unknown 2.5 mg 2.5 mg 09-07 MD,Jamie tablet tablet Coumadin Coumadin 2018- No Shallish Unknown Unknown 2.5 mg 2.5 mg 09-11 MD,Jamie tablet tablet Coumadin Coumadin 2018- No Shallish Unknown Unknown 2.5 mg 2.5 mg 09-15 MD,Jamie tablet tablet Eliquis 5 Eliquis 5 No Shallish Unknown Unknown mg tablet mg tablet 09-21 ,Jamie Levemir Levemir No Shallish Unknown Unknown FlexTouch [...] Observation Time Observation Value Comments SYSTOLIC mm[Hg] 2019-03-26 18:09:23 136 mm[Hg] mm[Hg] Method: Sit SYSTOLIC mm[Hg] 2018-01-23 18:02:16 122 mm[Hg] mm[Hg] Method: Stand DIASTOLIC mm[Hg] 2019-03-26 18:09:23 76 mm[Hg] mm[Hg] Method: Sit DIASTOLIC mm[Hg] 2018-01-23 18:02:16 60 mm[Hg] mm[Hg] Method: Stand PULSE 2019-03-26 18:09:23 78 /min /min RESP RATE 2019-03-26 18:09:23 16 /min /min TEMP 2019-03-26 18:09:23 98.2 [degF] Procedures This patient has no known procedures. Results This patient has no known results.
--- OUTSIDE RECORDS SUMMARY | 2019-04-11 14:38 | XMS REPORT ---
:1940 Author Organization [facility] Care Team Providers Name Role Phone Unavailable Unavailable Unavailable Problems Condition Condition Condition Status Onset Resolution Last Treating Comments Name Details Category Date Date Treatment Clinician Date Pain frequent Pain Mgmt Resolve 2017-042018-05-08 Roselyn pain d 0-10 08:50:00 (Radha) 11:15: Weller 00 [id number] Cardio edema Cardiovasc Resolve 2017-042018-02-20 Roselyn ular d 0-10 09:50:00 (Radha) 11:15: Weller 00 [id number] Respiratory dyspnea Respirator Resolve 2017-042018-02-15 Roselyn present y d 0-10 10:20:00 (Radha) 11:15: Weller 00 [id number] Endo/Edgard glucose Endo/Edgard Resolve 2017-042018-03-20 Roselyn testing d 0-10 12:30:00 (Radha) dependence 11:15: Weller 00 [id number] Endo/Edgard knowledge/s Endo/Edgard Resolve 2017-042018-03-06 Roselyn kill d 0-10 09:30:00 (Radha) deficit: pt 11:15: Weller 00 [id number] Endo/Edgard anti-coagul Endo/Edgard Resolve 2017-042018-03-20 Roselyn ation d 0-10 12:30:00 (Radha) therapy 11:15: Weller 00 [id number] Endo/Edgard diabetic Endo/Edgard Resolve 2017-042018-03-06 Roselyn foot care d 0-10 09:30:00 (Radha) 11:15: Weller 00 [id number] Sensory impaired Sensory Resolve 2017-042018-03-22 Roselyn hearing d 0-10 09:55:00 (Radha) 11:15: Weller 00 [id number] Integument pressure Integument Resolve 2017-042018-08-21 Roselyn ulcer d 0-10 12:45:00 (Radha) present 11:15: Weller [id number] Integument skin Integument Resolve 2017-042018-03-03 Roselyn integrity d 0-10 09:19:00 (Radha) risk 11:15: Weller [id number] Integument surgical Integument Resolve 2017-042018-03-03 Quality wound d 0-10 09:19:00 Realtime7 present 11:15: 00 Integument other wound Integument Resolve 2017-042018-03-03 Quality present d 0-10 09:19:00 Realtime7 11:15: 00 Elimination urinary Eliminatio Resolve 2017-042018-03-20 Roselyn incontinenc n d 0-10 12:30:00 (Radha) e 11:15: Weller [id number] Neuro confusion Neuro/Emot Resolve 2017-042018-03-22 Roselyn present ion d 0-10 09:55:00 (Radha) 11:15: Weller [id number] Neuro anxiety Neuro/Emot Resolve 2017-042018-03-22 Roselyn present ion d 0-10 09:55:00 (Radha) 11:15: Weller [id number] Neuro impaired Neuro/Emot Resolve 2017-042018-03-22 Roselyn decision-ma ion d 0-10 09:55:00 (Radha) pj 11:15: Weller [id number] Activity ADL Activity Resolve 2017-042018-03-22 Roselyn assistance d 0-10 09:55:00 (Radha) required 11:15: [id number] Safety structural Safety Resolve 2017-042018-03-22 Roselyn barriers d 0-10 09:55:00 (Radha) present 11:15: Weller [id number] Safety fall risk Safety Resolve 2017-042018-03-22 Roselyn factor d 0-10 09:55:00 (Radha) present 11:15: Weller [id number] Safety risk for Safety Resolve 2017-042018-03-22 Roselyn hospitaliza d 0-10 09:55:00 (Radha) tion 11:15: Weller [id number] Safety can be left Safety Resolve 2017-042018-03-22 Roselyn alone for d 0-10 09:55:00 (Radha) only short 11:15: Weller 00 [id number] Medication oral med Meds Resolve 2017-042018-02-06 Roselyn assistance d 0-10 09:15:00 (Radha) required 11:15: Weller [id number] Medication injectable Meds Resolve 2017-042018-02-06 Roselyn med d 0-10 09:15:00 (Radha) assistance 11:15: Weller required 00 [id number] Medication knowledge/s Meds Resolve 2017-042018-02-15 Roselyn kill d 0-10 10:20:00 (Radha) deficit: pt 11:15: Weller 00 [id number] Medication potential Meds Resolve 2017-042018-02-15 Roselyn clinically d 0-10 10:20:00 (Radha) significant 11:15: Weller medication 00 [id number] issue Musculoskel transfer Musculoske Resolve 2017-042018-03-20 Roselyn etal assistance letal d 0-10 12:30:00 (Radha) required 11:15: Weller [id number] Musculoskel requires Musculoske Resolve 2017-042018-03-20 Roselyn etal human letal d 0-10 12:30:00 (Radha) assist to 11:15: Weller leave home 00 [id number] Safety knowledge/s Safety Resolve 2017-042018-03-22 Laura kill d 0-12 09:55:00 Jean-Claude deficit: pt 10:00: [id number] 00 Respiratory knowledge/s Respirator Resolve 2017-042018-02-06 Laura kill y d 0-15 09:15:00 Jean-Claude deficit: cg 10:00: [id number] 00 Respiratory lung sounds Respirator Resolve 2017-042018-02-06 Laura deficit y d 0-15 09:15:00 [place] 10:00: [id number] 00 Sensory impaired Sensory Resolve 2017-042018-03-22 Quality verbal d 0-17 09:55:00 Realtime7 communicati 18:36: on 42 Musculoskel knowledge/s Musculoske Resolve 2017-042018-03-03 Laura etal kill letal d 0-24 09:19:00 Jean-Claude deficit: cg 09:45: [id number] 00 Nutrition knowledge/s Nutrition Resolve 2017-042018-03-03 Laura kill d 0-26 09:19:00 [place] deficit: pt 09:15: [id number] 00 Nutrition nutritional Nutrition Resolve 2017-042018-03-03 Laura restriction d 09:19:00 [place] s 09:15: [id number] 00 Elimination catheter Eliminatio Resolve 2017-042018-03-20 Laura present n d 0 12:30:00 Jean-Claude 09:15: [id number] 00 Elimination constipatio Eliminatio Resolve 2017-042018-03-20 Laura n n d 0 12:30:00 [place] 09:15: [id number] 00 Infection s/s of Infection Resolve 2017-042018-03-22 Laura infection d 0 09:55:00 Jean-Claude 09:30: [id number] 00 Endo/Edgard insulin Endo/Edgard Resolve 2017-042018-03-20 Laura admn d 04-22 12:30:00 Jean-Claude dependence 09:50: [id number] 00 Respiratory dyspnea Respirator Resolve 2017-042018-03-08 Laura present y d 04-24 09:20:00 Jean-Claude 10:07: [id number] 00 Safety cannot be Safety Resolve 2017-042018-03-22 Laura left alone d 04-24 09:55:00 Jean-Claude 10:07: [id number] 00 Cardio edema Cardiovasc Resolve 2017-042018-03-03 Laura ular d 04-26 09:19:00 Jean-Claude 09:51: [id number] 00 Respiratory Incentive Respirator Resolve 2017-042018-03-03 Laura Spirometer y d 04-26 09:19:00 Jean-Claude /Acapella 09:51: [id number] Device 00 treatments in home Endo/Edgard knowledge/s Endo/Edgard Resolve 2017-042018-03-20 Laura kill d 05-08 12:30:00 [place] deficit: pt 09:20: [id number] 00 Nutrition knowledge/s Nutrition Resolve 2017-042018-04-19 Laura kill d 05-08 09:45:00 Jean-Claude deficit: pt 09:20: [id number] 00 Nutrition nutritional Nutrition Resolve 2017-042018-04-19 Laura restriction d 05-08 09:45:00 Jean-Claude s 09:20: [id number] 00 Endo/Edgard diabetic Endo/Edgard Resolve 2017-042018-03-20 Laura foot care d 2- 12:30:00 Jean-Claude 09:20: [id number] 00 Pain frequent Pain Mgmt Unknown 2017-04 Laura pain 2- [place] 12:45: [id number] 00 Respiratory dyspnea Respirator Resolve 2017-042018-03-20 Laura present y d 2 12:30:00 [place] 12:45: [id number] 00 Integument pressure Integument Unknown 2017-04 Laura ulcer 2- Jean-Claude present 12:45: [id number] 00 Integument surgical Integument Resolve 2017-042018-03-24 Laura wound d 2 11:23:00 Jean-Claude present 12:45: [id number] 00 Endo/Edgard diabetic Endo/Edgard Resolve 2017-042018-03-24 Laura foot care d 05-23 11:23:00 Jean-Claude 09:55: [id number] 00 Elimination catheter Eliminatio Resolve 2017-042018-04-19 Laura present n d 05-23 09:45:00 Jean-Claude 09:55: [id number] 00 Safety risk for Safety Resolve 2017-042018-04-19 Laura hospitaliza d 2 09:45:00 Jean-Claude tion 11:23: [id number] 00 Safety can be left Safety Resolve 2017-042018-04-19 Laura alone for d 2- 09:45:00 Jean-Claude only short 11:23: [id number] periods 00 Musculoskel knowledge/s Musculoske Resolve 2017-042018-03-29 Laura etal kill letal d - 09:30:00 Jean-Claude deficit: cg 10:20: [id number] 00 Musculoskel requires Musculoske Resolve 2017-042018-04-12 Laura etal human letal d 2- 09:45:00 Jean-Claude assist to 10:20: [id number] leave home 00 Endo/Edgard diabetic Endo/Edgard Resolve 2017-042018-04-19 Laura foot care d 2- 09:45:00 Jean-Claude 09:30: [id number] 00 Elimination constipatio Eliminatio Resolve 2017-042018-04-12 Laura n n d 05-30 09:45:00 [place] 09:30: [id number] 00 Pain frequent Pain Mgmt Unknown 2017-04 Laura pain 06-06 Jean-Claude 09:45: [id number] 00 Endo/Edgard insulin Endo/Edgard Resolve 2017-042018-04-19 Laura admn d 06-06 09:45:00 [place] dependence 09:45: [id number] 00 Endo/Edgard anti-coagul Endo/Edgard Resolve 2017-042018-04-19 Laura ation d 06-06 09:45:00 [place] therapy 09:45: [id number] 00 Integument surgical Integument Resolve 2017-042018-04-05 Laura wound d 06-06 09:45:00 [place] present 09:45: [id number] 00 Integument skin Integument Resolve 2017-042018-04-05 Laura integrity d 06-06 09:45:00 Jean-Claude risk 09:45: [id number] 00 Integument pressure Integument Unknown 2017-04 Laura ulcer 06-06 Jean-Claude present 09:45: [id number] 00 Elimination UTI within Eliminatio Resolve 2017-042018-04-12 Laura past 14 n d 06-06 09:45:00 Jean-Claude days 09:45: [id number] 00 Activity ADL Activity Resolve 2017-042018-09-15 Laura assistance d 06-06 10:35:00 Jean-Claude required 09:45: [id number] 00 Safety fall risk Safety Resolve 2017-042018-04-19 Laura factor d 06-06 09:45:00 Jean-Claude present 09:45: [id number] 00 Medication potential Meds Resolve 2017-042018-04-19 Laura clinically d 06-06 09:45:00 Jean-Claude significant 09:45: [id number] medication 00 issue Medication oral med Meds Resolve 2017-042018-04-05 Shari assistance d 06-06 09:45:00 Regeczi required 09:45: [id number] 00 Medication injectable Meds Resolve 2017-042018-08-09 Shari med d 06-06 09:20:00 Regeczi assistance 09:45: [id number] required 00 Musculoskel transfer Musculoske Resolve 2017-042018-04-12 Shari etal assistance letal d 06-06 09:45:00 Regeczi required 09:45: [id number] 00 Medication oral med Meds Resolve 2017-042018-04-19 Laura assistance d 06-08 09:45:00 Jean-Claude required 10:00: [id number] 00 Medication injectable Meds Unknown 2017-04 Alura med 06-08 [place] assistance 10:00: [id number] required 00 Sensory impaired Sensory Resolve 2017-042018-04-19 Nima verbal d 06-08 09:45:00 Graves communicati 15:20: [id number] on 00 Sensory impaired Sensory Resolve 2017-042018-04-19 Nima hearing d 06-08 09:45:00 Graves 15:20: [id number] 00 Medication injectable Meds Unknown 2017-04 Nhung med Pérez assistance 14:56: [id number] required 00 Medication injectable Meds Unknown Nima med 04-13 Graves assistance 13:50: [id number] required 00 Elimination constipatio Eliminatio Resolve 2018-04-19 Laura n n d 04-14 09:45:00 Jean-Claude 09:28: [id number] 00 Medication injectable Meds Unknown Laura med 04-17 [place] assistance 10:00: [id number] required 00 Medication injectable Meds Resolve 2018-04-19 Laura med d 04-19 09:45:00 [place] assistance 09:45: [id number] required 00 Endo/Edgard anti-coagul Endo/Edgard Resolve 2018-04-26 Laura ation d 04-21 10:15:00 Jean-Claude therapy 09:45: [id number] 00 Nutrition knowledge/s Nutrition Resolve 2018-04-26 Laura kill d 04-21 10:15:00 [place] deficit: pt 09:45: [id number] 00 Nutrition nutritional Nutrition Resolve 2018-04-26 Laura restriction d 04-21 10:15:00 Jean-Claude s 09:45: [id number] 00 Elimination catheter Eliminatio Resolve 2018-04-26 Laura present n d 04-21 10:15:00 Jean-Claude 09:45: [id number] 00 Elimination constipatio Eliminatio Resolve 2018-04-26 Laura n n d 04-21 10:15:00 Jean-Claude 09:45: [id number] 00 Safety risk for Safety Resolve 2018-04-26 Laura hospitaliza d 1-11 10:15:00 Jean-Claude tion 09:45: [id number] 00 Safety can be left Safety Resolve 2018-04-26 Laura alone for d 1-11 10:15:00 Jean-Claude only short 09:45: [id number] periods 00 Sensory impaired Sensory Resolve 2018-04-26 Nima verbal d 1-11 10:15:00 Graves communicati 14:30: [id number] on 00 Sensory impaired Sensory Resolve 2018-04-26 Nima hearing d 1-11 10:15:00 Graves 14:30: [id number] 00 Sensory impaired Sensory Resolve 2018-04-28 Nima verbal d 1-17 10:20:00 Graves communicati 12:45: [id number] on 00 Sensory impaired Sensory Resolve 2018-04-28 Nima hearing d 1-17 10:20:00 Graves 12:45: [id number] 00 Endo/Edgard anti-coagul Endo/Edgard Resolve 2018-05-24 Laura ation d 1-18 12:30:00 Jean-Claude therapy 10:20: [id number] 00 Safety risk for Safety Active Laura hospitaliza - [place] tion 10:20: [id number] 00 Safety can be left Safety Resolve 2018-05-10 Laura alone for d 1- 13:45:00 Jean-Claude only short 10:10: [id number] Sensory impaired Sensory Resolve 2018-05-10 Jia hearing d 05-05 13:45:00 Hillebrand 13:30: t 00 [id number] Sensory impaired Sensory Resolve 2018-05-10 Jia verbal d 1 13:45:00 Hillebrand communicati 13:30: t on 00 [id number] Elimination catheter Eliminatio Resolve 2018-05-08 Wandy present n d 05-08 08:50:00 ,Kaylee 08:50: 00 Elimination constipatio Eliminatio Resolve 2018-06-28 Wandy n n d 05-08 09:45:00 ,Kaylee 08:50: 00 Safety cannot be Safety Resolve 2018-05-10 Laura left alone d 1- 13:45:00 [place] 08:50: [id number] 00 Elimination catheter Eliminatio Resolve 2018-05-12 Shari present n d 2- 09:30:00 Regeczi 09:30: [id number] 00 Safety can be left Safety Resolve 2018-05-17 Laura alone for d - 10:00:00 Jean-Claude only short 09:30: [id number] periods 00 Elimination urinary Eliminatio Resolve 2018-05-15 Laura incontinenc n d 05-15 08:45:00 [place] e 08:45: [id number] 00 Pain frequent Pain Mgmt Resolve 2018-05-17 Laura pain d 2-06 10:00:00 [place] 10:00: [id number] 00 Respiratory lung sounds Respirator Resolve 2018-05-22 Laura deficit y d 2-06 10:44:00 Jean-Claude 10:00: [id number] 00 Integument pressure Integument Unknown Laura ulcer 2-06 Jean-Claude present 10:00: [id number] 00 Integument skin Integument Resolve 2018-05-17 Laura integrity d 2-06 10:00:00 [place] risk 10:00: [id number] 00 Integument surgical Integument Resolve 2018-05-17 Laura wound d 2-06 10:00:00 Jean-Claude present 10:00: [id number] 00 Activity ADL Activity Unknown 2018- Laura assistance 2-06 [place] required 10:00: [id number] 00 Activity self-care Activity Resolve 2018-05-19 Laura deficit d 2-06 11:15:00 Jean-Claude 10:00: [id number] 00 Safety fall risk Safety Resolve 2018-05-19 Laura factor d 2-06 11:15:00 [place] present 10:00: [id number] 00 Elimination urinary Eliminatio Resolve 2018-05-24 Thornberry incontinenc n d 2- 12:30:00 Kaylee 11:15: 00 Safety can be left Safety Resolve 2018-05-24 Laura alone for d 2-08 12:30:00 Jean-Claude only short 11:15: [id number] periods 00 Safety fall risk Safety Resolve 2018-05-24 Sonia White factor d 2-12 12:30:00 present 09:48: 41 Endo/Edgard glucose Endo/Edgard Resolve 2018-05-24 Laura tolerance d 2-13 12:30:00 [place] problem 12:30: [id number] 00 Respiratory Incentive Respirator Resolve 2018-06-07 Laura Spirometer y d 2-15 12:00:00 Jean-Claude /[employer]capella 13:40: [id number] Device 00 treatments in home Endo/Edgard anti-coagul Endo/Edgard Resolve 2018-06-12 Laura ation d 2-15 09:30:00 Jean-Claude therapy 13:40: [id number] 00 Elimination urinary Eliminatio Resolve 2018-05-26 Laura incontinenc n d 2-15 13:40:00 Jean-Claude e 13:40: [id number] 00 Safety can be left Safety Resolve 2018-06-07 Laura alone for d 2-15 12:00:00 Jean-Claude only short 13:40: [id number] periods 00 Endo/Edgard glucose Endo/Edgard Resolve 2018-06-07 Cherrise tolerance d 2-22 12:00:00 [employer] problem 10:15: [id number] 00 Endo/Edgard insulin Endo/Edgard Resolve 2018-06-12 Cherrise admn d 2-22 09:30:00 [employer] dependence 10:15: [id number] 00 Endo/Edgard glucose Endo/Edgard Resolve 2018-06-12 Cherrise testing d 2- 09:30:00 Trixie dependence 10:15: [id number] 00 Safety fall risk Safety Resolve 2018-06-07 Cherrise factor d 2-22 12:00:00 [employer] present 10:15: [id number] 00 Musculoskel transfer Musculoske Active Cherrise etal assistance letal 06-02 Trixie required 10:15: [id number] 00 Musculoskel requires Musculoske Active Cherrise etal human letal 2 [employer] assist to 10:15: [id number] leave home 00 Elimination urinary Eliminatio Resolve 2018-06-07 Laura incontinenc n d 06-05 12:00:00 Jean-Claude e 12:30: [id number] 00 Activity self-care Activity Resolve 2018-08-14 Laura deficit d 06-05 12:10:00 [place] 12:30: [id number] 00 Elimination urinary Eliminatio Resolve 2018-06-12 Laura incontinenc n d 06-09 09:30:00 Jean-Claude e 09:13: [id number] 00 Safety can be left Safety Resolve 2018-06-12 Laura alone for d 06-09 09:30:00 Jean-Claude only short 09:13: [id number] periods 00 Respiratory Incentive Respirator Resolve 2018-06-14 Laura Spirometer y d 06-12 09:30:00 Jean-Claude /Acapemiguel 09:30: [id number] Device 00 treatments in home Endo/Edgard anti-coagul Endo/Edgard Resolve 2018-06-30 Laura ation d 06-14 09:19:00 Jean-Claude therapy 09:30: [id number] 00 Safety can be left Safety Resolve 2018-06-30 Laura alone for d 06-14 09:19:00 Jean-Claude alejo 09:30: [id number] periods 00 Elimination urinary Eliminatio Resolve 2018-06-19 Laura incontinenc n d 06-16 13:45:00 Jean-Claude e 09:45: [id number] 00 Elimination urinary Eliminatio Resolve 2018-06-28 Laura incontinenc n d 06-23 09:45:00 Jean-Claude e 13:15: [id number] 00 Elimination constipatio Eliminatio Resolve 2018-07-14 Laura n n d 06-30 09:20:00 [place] 09:19: [id number] 00 Endo/Edgard anti-coagul Endo/Edgard Resolve 2018-07-14 Laura ation d 07-03 09:20:00 Jean-Claude therapy 12:49: [id number] 00 Elimination urinary Eliminatio Resolve 2018-07-14 Laura incontinenc n d 07-03 09:20:00 [place] e 12:49: [id number] 00 Safety can be left Safety Resolve 2018-08-18 Laura alone for d 07-07 12:05:00 Jean-Claude only short 12:50: [id number] periods 00 Endo/Edgard glucose Endo/Edgard Resolve 2018-07-14 Shi testing d 07-10 09:20:00 Sorin, dependence 12:30: [id number] 00 Pain frequent Pain Mgmt Resolve 2018-07-14 Laura pain d 07-14 09:20:00 Jean-Claude 09:20: [id number] 00 Integument surgical Integument Resolve 2018-08-13 Laura wound d 07-14 12:50:00 Jean-Claude present 09:20: [id number] 00 Integument skin Integument Resolve 2018-08-13 Laura integrity d 07-14 12:50:00 [place] risk 09:20: [id number] 00 Safety fall risk Safety Resolve 2018-08-18 Laura factor d 07-14 12:05:00 [place] present 09:20: [id number] 00 Endo/Edgard anti-coagul Endo/Edgard Resolve 2018-08-14 Laura ation d 07-17 12:10:00 Jean-Claude therapy 13:00: [id number] 00 Elimination urinary Eliminatio Resolve 2018-07-21 Laura incontinenc n d 07-17 09:25:00 Jean-Claude e 13:00: [id number] 00 Activity ADL Activity Unknown Laura assistance 07-17 [place] required 13:00: [id number] 00 Elimination urinary Eliminatio Resolve 2018-08-14 Laura incontinenc n d 07-24 12:10:00 [place] e 09:27: [id number] 00 Pain frequent Pain Mgmt Resolve 2018 Laura pain d 08-07 09:20:00 Jean-Claude 12:45: [id number] 00 Cardio edema Cardiovasc Resolve 2018 Laura ular d 08-07 09:20:00 Jean-Claude 12:45: [id number] 00 Respiratory dyspnea Respirator Resolve 2018 Laura present y d 08-07 09:20:00 Jean-Claude 12:45: [id number] 00 Endo/Edgard diabetic Endo/Edgard Resolve 2018-08-14 Laura foot care d 08-07 12:10:00 Jean-Claude 12:45: [id number] 00 Nutrition knowledge/s Nutrition Active Laura kill 08-07 Jean-Claude deficit: pt 12:45: [id number] 00 Nutrition nutritional Nutrition Active Laura restriction 08-07 Jean-Claude s 12:45: [id number] 00 Neuro confusion Neuro/Emot Resolve 2018-08-14 Laura present ion d 08-07 12:10:00 Jean-Claude 12:45: [id number] 00 Medication oral med Meds Resolve 2018 Laura assistance d 08-07 09:20:00 [place] required 12:45: [id number] 00 Medication injectable Meds Resolve 2018 Jia med d 08-07 09:20:00 Jerardo assistance 12:45: [id number] required 00 Cardio edema Cardiovasc Resolve 2018-08-23 Laura ular d 08-13 11:15:00 Jean-Claude 12:50: [id number] 00 Respiratory dyspnea Respirator Resolve 2018-08-14 Laura present y d 08-13 12:10:00 Jean-Claude 12:50: [id number] 00 Endo/Edgard anti-coagul Endo/Edgard Resolve 2018-08-28 Laura ation d 08-16 12:00:00 Jean-Claude therapy 12:15: [id number] 00 Elimination urinary Eliminatio Resolve 2018-08-21 Laura incontinenc n d 08-16 12:45:00 Jean-Claude e 12:15: [id number] 00 Sensory impaired Sensory Resolve 2018-08-21 Krystyna verbal d 08-17 12:45:00 [place] communicati 14:30: [id number] on 00 Sensory impaired Sensory Resolve 2018-08-21 Krystyna hearing d 08-17 12:45:00 [place] 14:30: [id number] 00 Social financial LILLIAN: Resolve 2019-02-16 Krystyna Services resource Social d 08-17 13:45:00 [place] deficit Services 14:30: [id number] 00 Social knowledge/s LILLIAN: Resolve 2018-08-17 Krystyna Services kill Social d 08-17 14:30:00 [place] deficit - Services 14:30: [id number] pt 00 Social knowledge/s LILLIAN: Resolve 2018-08-17 Krystyna Services kill Social d 08-17 14:30:00 [place] deficit - Services 14:30: [id number] cg 00 Safety can be left Safety Resolve 2018-09-07 Laura alone for d 5-15 10:00:00 Jean-Claude cruz short 11:15: [id number] periods 00 Social knowledge/s LILLIAN: Active Laura Services kill Social 08-23 [place] deficit - Services 11:15: [id number] pt 00 Elimination urinary Eliminatio Resolve 2018-09-07 Laura incontinenc n d 08-25 10:00:00 Jean-Claude e 11:45: [id number] 00 Sensory impaired Sensory Resolve 2018-09-07 Krystyna verbal d 09-01 10:00:[facility] 14[facility]45: [id number] on 00 Sensory impaired Sensory Resolve 2018-09-07 Krystyna hearing d 09-01 10:00:00 [facility] 14:45: [id number] 00 Social knowledge/s LILLIAN: Active Krystyna Services kill Social 09-01 [place] deficit - Services 14:45: [id number] cg 00 Respiratory dyspnea Respirator Resolve 2018-09-15 Laura present y d 09-07 10:35:00 Jean-Claude 10:00: [id number] 00 Pain frequent Pain Mgmt Resolve 2018-09-11 Laura pain d 09-11 11:50:00 Jean-Claude 11:50: [id number] 00 Cardio hypertensio Cardiovasc Resolve 2018-09-11 Laura n ular d 09-11 11:50:00 Jean-Claude 11:50: [id number] 00 Integument pressure Integument Resolve 2018-09-15 Laura ulcer d 6 10:35:00 Jean-Claude present 11:50: [id number] 00 Integument surgical Integument Resolve 2018-09-15 Laura wound d 6-03 10:35:00 [place] present 11:50: [id number] 00 Integument skin Integument Resolve 2018-09-15 Laura integrity d 09-11 10:35:00 [place] risk 11:50: [id number] 00 Elimination urinary Eliminatio Resolve 2018-09-11 Laura incontinenc n d 09-11 11:50:00 Jean-Claude e 11:50: [id number] 00 Activity ADL Activity Unknown Laura assistance 09-11 [place] required 11:50: [id number] 00 Activity self-care Activity Resolve 2018-09-15 Laura deficit d 09-11 10:35:00 Jean-Claude 11:50: [id number] 00 Safety fall risk Safety Resolve 2018-09-15 Laura factor d 09-11 10:35:00 [place] present 11:50: [id number] 00 Safety can be left Safety Resolve 2018-09-15 Laura alone for d 09-11 10:35:00 Jean-Claude only short 11:50: [id number] periods 00 Endo/Edgard anti-coagul Endo/Edgard Resolve 2018-09-18 Laura ation d 09-15 12:20:00 [place] therapy 10:35: [id number] 00 Elimination urinary Eliminatio Resolve 2018-09-18 Laura incontinenc n d 09-15 12:20:00 Jean-Claude e 10:35: [id number] 00 Elimination constipatio Eliminatio Resolve 2018-09-18 Laura n n d 09-15 12:20:00 Jean-Claude 10:35: [id number] 00 Safety can be left Safety Resolve 2018-09-25 Laura alone for d 610 11:45:00 Jean-Claude only short 12:20: [id number] periods 00 Cardio hypertensio Cardiovasc Resolve 2018-09-21 Laura n ular d 09-21 11:45:00 Jean-Claude 11:45: [id number] 00 Endo/Edgard anti-coagul Endo/Edgard Resolve 2018-09-25 Laura ation d 09-21 11:45:00 Jean-Claude therapy 11:45: [id number] 00 Cardio hypertensio Cardiovasc Resolve 2018-10-02 Laura n ular d 6- 12:05:00 Jean-Claude 11:45: [id number] 00 Elimination urinary Eliminatio Resolve 2018-10-02 Laura incontinenc n d 6 12:05:00 Jean-Claude e 11:45: [id number] 00 Endo/Edgard anti-coagul Endo/Edgard Resolve 2018-10-02 Laura ation d 09-29 12:05:00 [place] therapy 09:45: [id number] 00 Safety can be left Safety Resolve 2018-10-02 Laura alone for d 09-29 12:05:00 Jean-Claude only short 09:45: [id number] 00 Endo/Edgard anti-coagul Endo/Edgard Resolve 2018-10-27 Laura ation d 10-04 11:30:00 [place] therapy 10:10: [id number] 00 Elimination urinary Eliminatio Resolve 2018-10-06 Laura incontinenc n d 10-04 09:10:00 Jean-Claude e 10:10: [id number] 00 Elimination constipatio Eliminatio Resolve 2018-10-06 Laura n n d 10-04 09:10:00 Jean-Claude 10:10: [id number] 00 Safety can be left Safety Resolve 2018-10-06 Laura alone for d 10-04 09:10:00 Jean-Claude only short 10:10: [id number] Sensory impaired Sensory Resolve 2018-10-23 Krystyna verbal d 10-05 11:56:00 [place] communicati 15:00: [id number] on 00 Sensory impaired Sensory Resolve 2018-10-23 Krystyna hearing d 10-05 11:56:00 [place] 15:00: [id number] 00 Elimination urinary Eliminatio Resolve 2018-10-27 Laura incontinenc n d 10-09 11:30:00 Jean-Claude butler 12:15: [id number] 00 Elimination bloody Eliminatio Resolve 2018-10-27 Laura urine n d 10-09 11:30:00 Jean-Claude 12:15: [id number] 00 Safety can be left Safety Resolve 2018-10-23 Laura alone for d 10-09 11:56:00 Jean-Claude only short 12:15: [id number] periods Elimination constipatio Eliminatio Resolve 2018-12-08 Laura n n d 10-16 14:00:00 Jean-Claude 12:35: [id number] 00 Cardio edema Cardiovasc Resolve 2018-10-27 Laura ular d 10-20 11:30:00 Jean-Claude 11:35: [id number] 00 Endo/Edgard knowledge/s Endo/Edgard Resolve 2018-10-27 Laura kill d 10-20 11:30:00 Jean-Claude deficit: pt 11:35: [id number] 00 Sensory impaired Sensory Unknown Jonatan verbal 7-15 Demarco, communicati 13:30: PT on [id number] Sensory impaired Sensory Unknown Jonatan hearing 15 Demarco, 13:30: PT [id number] Safety can be left Safety Resolve 2018-10-27 Laura alone for d 10-25 11:30:00 Jean-Claude cruz short 10:35: [id number] 00 Endo/Edgard glucose Endo/Edgard Resolve 2018-12-11 Cherrise tolerance d 10-30 09:30:00 [employer] problem 11:55: [id number] 00 Endo/Edgard insulin Endo/Edgard Resolve 2018-12-13 Cherrise admn d 10-30 11:10:00 Trixie dependence 11:55: [id number] 00 Endo/Edgard glucose Endo/Edgard Resolve 2018-12-13 Cherrise testing d 10-30 11:10:00 [employer] dependence 11:55: [id number] 00 Endo/Edgard knowledge/s Endo/Edgard Resolve 2018-12-08 Cherrise kill d 10-30 14:00:00 Trixie deficit: pt 11:55: [id number] 00 Elimination urinary Eliminatio Resolve 2018-12-08 Cherrise urgency n d 10-30 14:00:00 [employer] 11:55: [id number] 00 Neuro depressive Neuro/Emot Resolve 2018-12-08 Cherrise feelings ion d 10-30 14:00:00 Trixie present 11:55: [id number] 00 Neuro impaired Neuro/Emot Resolve 2018-12-08 Cherrise decision-ma ion d 10-30 14:00:00 [employer] pj 11:55: [id number] 00 Safety fall risk Safety Resolve 2018-12-06 Cherrise factor d 10-30 13:05:00 [employer] present 11:55: [id number] 00 Endo/Edgard anti-coagul Endo/Edgard Resolve 2018-12-13 Shi ation d 11-01 11:10:00 Sorin, therapy 12:30: [id number] 00 Respiratory Incentive Respirator Resolve 2018-11-29 Cherrise Spirometer y d 11-03 10:15:00 [employer] /[employer] 10:25: [id number] Device 00 treatments in home Elimination urinary Eliminatio Resolve 2018-12-08 Cherrise frequency n d 11-03 14:00:00 [employer] 10:25: [id number] 00 Respiratory lung sounds Respirator Resolve 2018-11-29 Cherrise deficit y d 11-06 10:15:00 Trixie 12:05: [id number] 00 Neuro memory Neuro/Emot Resolve 2018-12-08 Cherrise deficit ion d 11-08 14:00:00 Trixie needing 10:30: [id number] supervision 00 Pain frequent Pain Mgmt Resolve 2018-12-06 Shi pain d 11-10 13:05:00 Sorin, 11:00: [id number] 00 Integument pressure Integument Active Shi ulcer 11-10 Sorin, present 11:00: [id number] 00 Integument surgical Integument Active 2018- Shi wound 11-10 Sorin, present 11:00: [id number] 00 Integument skin Integument Active 2018- Shi integrity 11-10 Sorin, risk 11:00: [id number] 00 Elimination urinary Eliminatio Resolve 2018-12-08 Shi incontinenc n d 11-10 14:00:00 Sorin, e 11:00: [id number] 00 Activity self-care Activity Resolve 2018-11-29 Shi deficit d 11-10 10:15:00 Sorin, 11:00: [id number] 00 Activity ADL Activity Resolve 2018-12-08 Shi assistance d 11-10 14:00:00 Sorin, required 11:00: [id number] 00 Pain knowledge/s Pain Mgmt Resolve 2018-12-06 Krystyna kill d 11-16 13:05:00 [place] deficit: cg 15:15: [id number] 00 Respiratory knowledge/s Respirator Resolve 2018-11-29 Krystyna kill y d 11-16 10:15:00 [place] deficit: cg 15:15: [id number] 00 Integument knowledge/s Integument Active Krystyna kill 11-16 [place] deficit: cg 15:15: [id number] 00 Elimination knowledge/s Eliminatio Resolve 2018-12-08 Krystyna kill n d 11-16 14:00:00 [place] deficit: cg 15:15: [id number] 00 Safety knowledge/s Safety Resolve 2018-12-06 Krysytna kill d 11-16 13:05:00 [place] deficit: cg 15:15: [id number] 00 Cardio hypertensio Cardiovasc Resolve 2018-11-29 Lenny jarvis joseph d 11-17 10:15:00 [employer] 10:45: [id number] 00 Safety can be left Safety Resolve 2018-12-08 Shi alone for d 11-22 14:00:00 nancy Rowell short 11:00: [id number] periods 00 Sensory impaired Sensory Resolve 2018-12-08 Laura verbal d 11-24 14:00:00 Jean-Claude communicati 09:30: [id number] on 00 Sensory impaired Sensory Resolve 2018-12-08 Laura hearing d 11-24 14:00:00 Jean-Claude 09:30: [id number] 00 Respiratory knowledge/s Respirator Resolve 2018-12-08 Laura kill y d 12-01 14:00:00 Jean-Claude deficit: cg 09:30: [id number] 00 Sensory impaired Sensory Unknown Krystyna verbal 8 [place] communicati 15:00: [id number] on 00 Sensory impaired Sensory Unknown Krystyna hearing 12-08 [place] 15:00: [id number] 00 Respiratory knowledge/s Respirator Resolve 2018-12-13 Laura kill y d 12-11 11:10:00 Jean-Claude deficit: cg 09:30: [id number] 00 Endo/Edgard knowledge/s Endo/Edgard Resolve 2018-12-13 Laura kill d 12-11 11:10:00 [employer] deficit: pt 09:30: [id number] 00 Elimination urinary Eliminatio Resolve 2018-12-15 Laura incontinenc n d 12-11 13:10:00 Jean-Claude e 09:30: [id number] 00 Safety can be left Safety Resolve 2018-12-15 Laura alone for d 12-11 13:10:00 Jean-Claude only short 09:30: [id number] 00 Endo/Edgard knowledge/s Endo/Edgard Resolve 2019-01-05 Laura kill d 12-15 11:00:00 Jean-Claude deficit: pt 13:10: [id number] 00 Endo/Edgard anti-coagul Endo/Edgard Resolve 2019-01-05 Laura ation d 12-15 11:00:00 Jean-Claude therapy 13:10: [id number] 00 Elimination urinary Eliminatio Resolve 2018-12-27 Laura incontinenc n d 12-18 09:20:00 Jean-Claude e 12:10: [id number] 00 Safety can be left Safety Resolve 2019-01-05 Laura alone for d 12-18 11:00:00 Jean-Claude only short 12:10: [id number] periods 00 Elimination constipatio Eliminatio Resolve 2019-01-05 Laura n n d 12-20 11:00:00 Jean-Claude 12:15: [id number] 00 Pain frequent Pain Mgmt Resolve 2019-01-15 Laura pain d 12-27 12:30:00 Jean-Claude 09:20: [id number] 00 Respiratory dyspnea Respirator Resolve 2019-01-05 Laura present y d 12-27 11:00:00 Jean-Claude 09:20: [id number] 00 Endo/Edgard diabetic Endo/Edgard Resolve 2019-01-05 Laura foot care d 9 11:00:00 Jean-Claude 09:20: [id number] 00 Elimination diarrhea Eliminatio Resolve 2019-01-05 Laura n d 18 11:00:00 Jean-Claude 09:20: [id number] 00 Neuro confusion Neuro/Emot Resolve 2019-01-05 Laura present ion d 12-27 11:00:00 Jean-Claude 09:20: [id number] 00 Neuro anxiety Neuro/Emot Resolve 2019-01-05 Laura present ion d 12-27 11:00:00 Jean-Claude 09:20: [id number] 00 Activity ADL Activity Resolve 2019-01-05 Laura assistance d 12-27 11:00:00 [place] required 09:20: [id number] 00 Activity self-care Activity Resolve 2019-01-05 Laura deficit d 12-27 11:00:00 Jean-Claude 09:20: [id number] 00 Safety fall risk Safety Resolve 2019-01-05 Laura factor d 12-27 11:00:00 Jean-Claude present 09:20: [id number] 00 Medication potential Meds Resolve 2019-01-05 Laura clinically d 12-27 11:00:00 [place] significant 09:20: [id number] medication 00 issue Elimination urinary Eliminatio Resolve 2019-01-05 Laura incontinenc n d 12-29 11:00:00 Jean-Claude e 11:20: [id number] 00 Endo/Edgard knowledge/s Endo/Edgard Resolve 2019-01-10 Laura kill d 01-08 10:00:00 Jean-Claude deficit: pt 11:30: [id number] 00 Endo/Edgard anti-coagul Endo/Edgard Resolve 2019-01-10 Laura ation d 01-08 10:00:00 Jean-Claude therapy 11:30: [id number] 00 Elimination urinary Eliminatio Resolve 2019-01-15 Laura incontinenc n d 01-08 12:30:00 [place] e 11:30: [id number] 00 Safety can be left Safety Resolve 2019-02-16 Laura alone for d 9-30 12:00:00 Jean-Claude only short 11:30: [id number] periods 00 Respiratory dyspnea Respirator Resolve 2018-042019-01-26 Laura present y d 0-02 10:00:00 Jean-Claude 10:00: [id number] 00 Activity ADL Activity Resolve 2018-042019-01-12 Laura assistance d 0-02 11:30:00 [place] required 10:00: [id number] 00 Activity self-care Activity Resolve 2018-042019-01-12 Laura deficit d 0-02 11:30:00 [place] 10:00: [id number] 00 Safety fall risk Safety Resolve 2018-042019-01-12 Laura factor d 0-02 11:30:00 [place] present 10:00: [id number] 00 Medication injectable Meds Resolve 2018-042019-01-17 Laura med d 0-02 09:45:00 [place] assistance 10:00: [id number] required 00 Endo/Edgard knowledge/s Endo/Edgard Resolve 2018-042019-01-15 Laura kill d 0-04 12:30:00 Jean-Claude deficit: pt 11:30: [id number] 00 Endo/Edgard anti-coagul Endo/Edgard Resolve 2018-042019-01-15 Laura ation d 0-04 12:30:00 [place] therapy 11:30: [id number] 00 Elimination constipatio Eliminatio Resolve 2018-042019-01-15 Laura n n d 0-04 12:30:00 [place] 11:30: [id number] 00 Sensory impaired Sensory Resolve 2018-042019-01-15 Krystyna verbal d 0-04 12:30:00 Kathy communicati 15:30: [id number] on 00 Sensory impaired Sensory Resolve 2018-042019-01-15 Krystyna hearing d 0-04 12:30:00 [place] 15:30: [id number] 00 Infection s/s of Infection Resolve 2018-042019-03-09 Laura infection d 0-07 11:00:00 Jean-Claude 12:30: [id number] 00 Sensory impaired Sensory Resolve 2018-042019-01-22 Jonatan verbal d 0-08 11:00:00 ambrosio Pal 13:00: PT on 00 [id number] Sensory impaired Sensory Resolve 2018-042019-01-22 Jonatan hearing d 0-08 11:00:00 Demarco, 13:00: PT 00 [id number] Endo/Edgard knowledge/s Endo/Edgard Resolve 2018-042019-02-07 Laura kill d 0-09 11:20:00 Jean-Claude deficit: pt 09:45: [id number] 00 Endo/Edgard anti-coagul Endo/Edgard Resolve 2018-042019-02-07 Laura ation d 0-09 11:20:00 Jean-Claude therapy 09:45: [id number] 00 Elimination urinary Eliminatio Resolve 2018-042019-02-02 Laura incontinenc n d 0-09 11:30:00 Jean-Claude e 09:45: [id number] 00 Elimination constipatio Eliminatio Resolve 2018-042019-02-02 Laura n n d 0-16 11:30:00 [place] 10:00: [id number] 00 Sensory impaired Sensory Resolve 2018-042019-01-31 Jonatan verbal d 0-17 11:10:00 Demarco, communicflorentino 15:00: PT on 00 [id number] Sensory impaired Sensory Resolve 2018-042019-01-31 Jonatan hearing d 0-17 11:10:00 Demarco, 15:00: PT 00 [id number] Pain frequent Pain Mgmt Resolve 2018-042019-02-16 Jonatan pain d 0-23 12:00:00 Demarco, 13:00: PT 00 [id number] Sensory impaired Sensory Unknown 2018-04 Jonatan verbal 0-23 Demarco, communicati 13:00: PT on 00 [id number] Sensory impaired Sensory Unknown 2018-04 Jonatan hearing 0-23 Demarco, 13:00: PT 00 [id number] Respiratory dyspnea Respirator Resolve 2018-042019-02-07 Laura present y d 0-25 11:20:00 Jean-Claude 11:30: [id number] 00 Elimination urinary Eliminatio Resolve 2018-042019-02-07 Laura incontinenc n d 0-28 11:20:00 Jean-Claude e 12:40: [id number] 00 Endo/Edgard knowledge/s Endo/Edgard Resolve 2018-042019-02-19 Laura kill d 1 12:40:00 Jean-Claude deficit: pt 12:30: [id number] 00 Endo/Edgard anti-coagul Endo/Edgard Resolve 2018-042019-02-19 Laura ation d 04-11 12:40:00 Jean-Claude therapy 12:30: [id number] 00 Elimination urinary Eliminatio Resolve 2018-042019-02-16 Laura incontinenc n d 04-11 12:00:00 Jean-Claude e 12:30: [id number] 00 Medication potential Meds Resolve 2018-042019-02-24 Laura clinically d 04-14 09:45:00 [place] significant 12:20: [id number] medication 00 issue Elimination constipatio Eliminatio Resolve 2018-042019-02-16 Laura n n d 04-16 12:00:00 Jean-Claude 11:20: [id number] 00 Elimination urinary Eliminatio Resolve 2018-042019-02-24 Laura incontinenc n d 04-21 09:45:00 [place] e 12:40: [id number] 00 Safety can be left Safety Resolve 2018-042019-02-24 Laura alone for d 04-21 09:45:00 Jean-Claude only short 12:40: [id number] periods 00 Endo/Edgard knowledge/s Endo/Edgard Resolve 2018-042019-02-24 Laura kill d 04-23 09:45:00 Jean-Claude deficit: pt 12:05: [id number] 00 Endo/Edgard anti-coagul Endo/Edgard Resolve 2018-042019-02-24 Laura ation d 04-23 09:45:00 Jean-Claude therapy 12:05: [id number] 00 Sensory impaired Sensory Resolve 2018-042019-02-26 Laura verbal d 04-26 13:20:00 Jean-Claude communicati 09:45: [id number] on 00 Sensory impaired Sensory Resolve 2018-042019-02-26 Laura hearing d 04-26 13:20:00 Jean-Claude 09:45: [id number] 00 Endo/Edgard knowledge/s Endo/Edgard Resolve 2018-042019-02-28 Laura kill d 04-28 11:15:00 [place] deficit: pt 13:20: [id number] 00 Endo/Edgard anti-coagul Endo/Edgard Resolve 2018-042019-02-28 Laura ation d 04-28 11:15:00 Jean-Claude therapy 13:20: [id number] 00 Elimination urinary Eliminatio Resolve 2018-042019-03-09 Laura incontinenc n d 04-28 11:00:00 [place] e 13:20: [id number] 00 Safety can be left Safety Resolve 2018-042019-03-05 Laura alone for d 04-28 12:45:00 Jean-Claude only short 13:20: [id number] periods 00 Endo/Edgard knowledge/s Endo/Edgard Resolve 2018-042019-03-09 Laura kill d 05-05 11:00:00 [place] deficit: pt 12:45: [id number] 00 Endo/Edgard anti-coagul Endo/Edgard Resolve 2018-042019-03-09 Laura ation d 05-05 11:00:00 [place] therapy 12:45: [id number] 00 Safety can be left Safety Resolve 2018-042019-03-09 Laura alone for d 05-07 11:00:00 [place] only short 11:25: [id number] Sensory impaired Sensory Resolve 2018-042019-03-12 Krystyna verbal d 05-09 11:15:00 [place] communicati 12:00: [id number] on 00 Sensory impaired Sensory Resolve 2018-042019-03-12 Krystyna hearing d 05-09 11:15:00 [place] 12:00: [id number] 00 Social financial LILLIAN: Active 2018-04 Krystyna Services resource Social 05-09 [facility] deficit Services 12:00: [id number] 00 Respiratory dyspnea Respirator Resolve 2018-042019-03-14 Laura present y d 05-13 10:30:00 Jean-Claude 11:15: [id number] 00 Endo/Edgard knowledge/s Endo/Edgard Active 2018-04 Laura kill 05-13 [place] deficit: pt 11:15: [id number] 00 Endo/Edgard anti-coagul Endo/Edgard Active 2018-04 Laura ation 05-13 [place] therapy 11:15: [id number] 00 Elimination urinary Eliminatio Resolve 2018-042019-03-14 Laura incontinenc n d 05-13 10:30:00 [place] e 11:15: [id number] 00 Activity ADL Activity Resolve 2018-042019-03-14 Laura assistance d 05-13 10:30:00 [place] required 11:15: [id number] 00 Activity self-care Activity Resolve 2018-042019-03-14 Laura deficit d 2- 10:30:00 Jean-Claude 11:15: [id number] 00 Safety fall risk Safety Resolve 2018-042019-03-14 Laura factor d 2- 10:30:00 [place] present 11:15: [id number] 00 Safety can be left Safety Resolve 2018-042019-03-14 Laura alone for d 2 10:30:00 [place] only short 11:15: [id number] periods 00 Medication injectable Meds Resolve 2018-042019-03-12 Laura med d 05-13 11:15:00 [place] assistance 11:15: [id number] required 00 Safety can be left Safety Resolve 2018-042019-03-19 Laura alone for d 05-17 11:40:00 Jean-Claude only short 09:15: [id number] periods 00 Elimination urinary Eliminatio Active 2018-04 Laura incontinenc n 09 Jean-Claude e 11:40: [id number] 00 Allergies, Adverse Reactions, Alerts Allergy Name Allergy Status Severity Reaction(s) Onset Inactive Treating Comments Type Date Date Clinician bananas Unknown Active Unknown Reaction 2017-04 Roselyn Unknown 0-10 (Radha) Nithin [id number] keflex Unknown Active Unknown Reaction 2017-04 Roselyn Unknown 0-10 (Radha) Nithin [id number] nuts Unknown Active Unknown Reaction 2017-04 Roselyn Unknown 0-10 (Radha) Nithin [id number] Cipro Medication Active Unknown Reaction 2017-04 Sonia White Name ID Unknown 0-10 metronidazol Base Active Unknown Nausea and 2017-04 Roselyn e Ingredient vomiting 2-20 Jordan [id number] Medications Ordered Filled Start Stop Current Ordering Indication Dosage Frequency Signature Comments Components Medication Medication Date Date Medication? Clinician (SIG) Name Name folic acid folic acid 2017-04 No Shallish Unknown Unknown 1 mg tablet 1 mg tablet 0-10 MD,Jamie nystatin nystatin 2017-04 No Shallish Unknown Unknown (bulk) 100 (bulk) 100 0-10 MDJamie million million unit powder unit powder levothyroxi levothyroxi No Shallish 1 tab Unknown ne 175 mcg ne 175 mcg MDJamie tablet tablet levothyroxi levothyroxi No Shallish 0.5 [...] Lantus Lantus No Shallish 38 Unknown Aislinnostar Viviana DAVID,Jamie units U-100 U-100 Insulin 100 Insulin 100 [...] nded nded release release loperamide loperamide No Seagraves 1-2 Unknown 2 mg tablet 2 mg [...] 2017-04- No Shallish Unknown Unknown FlexTouch FlexTouch 004-05 MD,Jamie U-100 U-100 Insulin 100 Insulin 100 [...] Shallish Unknown Unknown Respimat 20 Respimat 20 - MD,Jamie mcg-100 mcg-100 mcg/actuati mcg/actuati on solution on solution for for inhalation inhalation Levemir Levemir 2017-04 2018- No Shallish Unknown Unknown FlexTouch FlexTouch 06-06- MD,Jamie U-100 U-100 Insulin 100 Insulin 100 unit/mL (3 unit/mL (3 mL) mL) subcutaneou subcutaneou s pen s pen testosteron testosteron 2017-04 No [place]ves Unknown Unknown e cypionate e cypionate 06-06 Latanya DAVID 200 mg/mL 200 mg/mL intramuscul intramuscul ar kit ar kit mometasone mometasone 2017-04 No [place] Unknown Unknown 0.1 % 0.1 % 06-06 Latanya DAVID topical topical cream cream finasteride finasteride 2017-04 No [place] Unknown Unknown 5 mg tablet 5 mg tablet 06-06 Latanya DAVID Levemir Levemir 2017-04- [place]agraves Unknown Unknown FlexTouch FlexTouch 06-06 Latanya DAVID U-100 U-100 Insulin 100 Insulin 100 unit/mL (3 unit/mL (3 mL) mL) subcutaneou subcutaneou s pen s pen Levemir Levemir 2018- Shallish Unknown Unknown FlexTouch FlexTouch 05-01 ,Jamie U-100 U-100 Insulin 100 Insulin 100 unit/mL (3 unit/mL (3 mL) mL) subcutaneou subcutaneou s pen s pen warfarin 5 warfarin 5 2018- Shallish Unknown Unknown mg tablet mg tablet 08-07 MD,Jamie warfarin 5 warfarin 5 2018- No Shallish Unknown Unknown mg tablet mg tablet 08-09 MD,Jamie warfarin 5 warfarin 5 2018- Shallish [...] Observation Time Observation Value Comments SYSTOLIC mm[Hg] 2019-03-19 18:09:16 134 mm[Hg] mm[Hg] Method: Sit SYSTOLIC mm[Hg] 2018-01-23 18:02:16 122 mm[Hg] mm[Hg] Method: Stand DIASTOLIC mm[Hg] 2019-03-19 18:09:16 70 mm[Hg] mm[Hg] Method: Sit DIASTOLIC mm[Hg] 2018-01-23 18:02:16 60 mm[Hg] mm[Hg] Method: Stand PULSE 2019-03-19 18:09:16 64 /min /min RESP RATE 2019-03-19 18:09:16 16 /min /min TEMP 2019-03-19 18:09:16 97.9 [degF] Procedures This patient has no known procedures. Results This patient has no known results.
--- OUTSIDE RECORDS SUMMARY | 2019-04-11 14:38 | XMS REPORT ---
:1940 Author Organization [facility] Care Team Providers Name Role Phone Unavailable Unavailable Unavailable Problems Condition Condition Condition Status Onset Resolution Last Treating Comments Name Details Category Date Date Treatment Clinician Date Pain frequent Pain Mgmt Resolve 2017-042018-05-08 Roselyn pain d 0-10 08:50:00 (Radha) 11:15: Weller 00 [id number] Cardio edema Cardiovasc Resolve 2017-042018-02-20 Roselyn ular d 0-10 09:50:00 (Radha) 11:15: Weller 00 [id number] Respiratory dyspnea Respirator Resolve 2017-042018-02-15 Roselyn present y d 0-10 10:20:00 (Radha) 11:15: Weller 00 [id number] Endo/Edgard glucose Endo/Edgard Resolve 2017-042018-03-20 Roselyn testing d 0-10 12:30:00 (Radha) dependence 11:15: Weller 00 [id number] Endo/Edgard knowledge/s Endo/Edgard Resolve 2017-042018-03-06 Roselyn kill d 0-10 09:30:00 (Radha) deficit: pt 11:15: Weller 00 [id number] Endo/Edgard anti-coagul Endo/Edgard Resolve 2017-042018-03-20 Roselyn ation d 0-10 12:30:00 (Radha) therapy 11:15: Weller 00 [id number] Endo/Edgard diabetic Endo/Edgard Resolve 2017-042018-03-06 Roselyn foot care d 0-10 09:30:00 (Radha) 11:15: Weller 00 [id number] Sensory impaired Sensory Resolve 2017-042018-03-22 Roselyn hearing d 0-10 09:55:00 (Radha) 11:15: Weller 00 [id number] Integument pressure Integument Resolve 2017-042018-08-21 Roselyn ulcer d 0-10 12:45:00 (Radha) present 11:15: Weller [id number] Integument skin Integument Resolve 2017-042018-03-03 Roselyn integrity d 0-10 09:19:00 (Radha) risk 11:15: Weller [id number] Integument surgical Integument Resolve 2017-042018-03-03 Quality wound d 0-10 09:19:00 Realtime7 present 11:15: 00 Integument other wound Integument Resolve 2017-042018-03-03 Quality present d 0-10 09:19:00 Realtime7 11:15: 00 Elimination urinary Eliminatio Resolve 2017-042018-03-20 Roselyn incontinenc n d 0-10 12:30:00 (Radha) e 11:15: Weller [id number] Neuro confusion Neuro/Emot Resolve 2017-042018-03-22 Roselyn present ion d 0-10 09:55:00 (Radha) 11:15: Weller [id number] Neuro anxiety Neuro/Emot Resolve 2017-042018-03-22 Roselyn present ion d 0-10 09:55:00 (Radha) 11:15: Weller [id number] Neuro impaired Neuro/Emot Resolve 2017-042018-03-22 Roselyn decision-ma ion d 0-10 09:55:00 (Radha) pj 11:15: Ewller [id number] Activity ADL Activity Resolve 2017-042018-03-22 Roselyn assistance d 0-10 09:55:00 (Radha) required 11:15: [id number] Safety structural Safety Resolve 2017-042018-03-22 Roselyn barriers d 0-10 09:55:00 (Radha) present 11:15: Weller [id number] Safety fall risk Safety Resolve 2017-042018-03-22 Roselyn factor d 0-10 09:55:00 (Radha) present 11:15: Weller [id number] Safety risk for Safety Resolve 2017-042018-03-22 Roselyn hospitaliza d 0-10 09:55:00 (Radha) tion 11:15: Weller [id number] Safety can be left Safety Resolve 2017-042018-03-22 Roselyn alone for d 0-10 09:55:00 (Radha) only short 11:15: Weller 00 [id number] Medication oral med Meds Resolve 2017-042018-02-06 Roselyn assistance d 0-10 09:15:00 (Radha) required 11:15: Weller [id number] Medication injectable Meds Resolve 2017-042018-02-06 Roselyn med d 0-10 09:15:00 (Radha) assistance 11:15: Weller required 00 [id number] Medication knowledge/s Meds Resolve 2017-042018-02-15 Roselyn kill d 0-10 10:20:00 (Radha) deficit: pt 11:15: Weller 00 [id number] Medication potential Meds Resolve 2017-042018-02-15 Roselyn clinically d 0-10 10:20:00 (Radha) significant 11:15: Weller medication 00 [id number] issue Musculoskel transfer Musculoske Resolve 2017-042018-03-20 Roselyn etal assistance letal d 0-10 12:30:00 (Radha) required 11:15: Weller [id number] Musculoskel requires Musculoske Resolve 2017-042018-03-20 Roselyn etal human letal d 0-10 12:30:00 (Radha) assist to 11:15: Weller leave home 00 [id number] Safety knowledge/s Safety Resolve 2017-042018-03-22 Laura kill d 0-12 09:55:00 Jean-Claude deficit: pt 10:00: [id number] 00 Respiratory knowledge/s Respirator Resolve 2017-042018-02-06 Laura kill y d 0-15 09:15:00 Jean-Claude deficit: cg 10:00: [id number] 00 Respiratory lung sounds Respirator Resolve 2017-042018-02-06 Laura deficit y d 0-15 09:15:00 [place] 10:00: [id number] 00 Sensory impaired Sensory Resolve 2017-042018-03-22 Quality verbal d 0-17 09:55:00 Realtime7 communicati 18:36: on 42 Musculoskel knowledge/s Musculoske Resolve 2017-042018-03-03 Laura etal kill letal d 0-24 09:19:00 Jean-Claude deficit: cg 09:45: [id number] 00 Nutrition knowledge/s Nutrition Resolve 2017-042018-03-03 Laura kill d 0-26 09:19:00 [place] deficit: pt 09:15: [id number] 00 Nutrition nutritional Nutrition Resolve 2017-042018-03-03 Laura restriction d 09:19:00 [place] s 09:15: [id number] 00 Elimination catheter Eliminatio Resolve 2017-042018-03-20 Laura present n d 0 12:30:00 Jean-Claude 09:15: [id number] 00 Elimination constipatio Eliminatio Resolve 2017-042018-03-20 Laura n n d 0 12:30:00 [place] 09:15: [id number] 00 Infection s/s of Infection Resolve 2017-042018-03-22 Laura infection d 0 09:55:00 Jean-Claude 09:30: [id number] 00 Endo/Edgard insulin Endo/Edgard Resolve 2017-042018-03-20 Laura admn d 04-22 12:30:00 Jean-Claude dependence 09:50: [id number] 00 Respiratory dyspnea Respirator Resolve 2017-042018-03-08 Laura present y d 04-24 09:20:00 Jean-Claude 10:07: [id number] 00 Safety cannot be Safety Resolve 2017-042018-03-22 Laura left alone d 04-24 09:55:00 Jean-Claude 10:07: [id number] 00 Cardio edema Cardiovasc Resolve 2017-042018-03-03 Laura ular d 04-26 09:19:00 Jean-Claude 09:51: [id number] 00 Respiratory Incentive Respirator Resolve 2017-042018-03-03 Laura Spirometer y d 04-26 09:19:00 Jean-Claude /Acapella 09:51: [id number] Device 00 treatments in home Endo/Edgard knowledge/s Endo/Edgard Resolve 2017-042018-03-20 Laura kill d 05-08 12:30:00 [place] deficit: pt 09:20: [id number] 00 Nutrition knowledge/s Nutrition Resolve 2017-042018-04-19 Laura kill d 05-08 09:45:00 Jean-Claude deficit: pt 09:20: [id number] 00 Nutrition nutritional Nutrition Resolve 2017-042018-04-19 Laura restriction d 05-08 09:45:00 Jean-Claude s 09:20: [id number] 00 Endo/Edgard diabetic Endo/Edgard Resolve 2017-042018-03-20 Laura foot care d 2- 12:30:00 Jean-Claude 09:20: [id number] 00 Pain frequent Pain Mgmt Unknown 2017-04 Laura pain 2- [place] 12:45: [id number] 00 Respiratory dyspnea Respirator Resolve 2017-042018-03-20 Laura present y d 2 12:30:00 [place] 12:45: [id number] 00 Integument pressure Integument Unknown 2017-04 Laura ulcer 2- Jean-Claude present 12:45: [id number] 00 Integument surgical Integument Resolve 2017-042018-03-24 Laura wound d 2 11:23:00 Jean-Claude present 12:45: [id number] 00 Endo/Edgard diabetic Endo/Edgard Resolve 2017-042018-03-24 Laura foot care d 05-23 11:23:00 Jean-Claude 09:55: [id number] 00 Elimination catheter Eliminatio Resolve 2017-042018-04-19 Laura present n d 05-23 09:45:00 Jean-Claude 09:55: [id number] 00 Safety risk for Safety Resolve 2017-042018-04-19 Laura hospitaliza d 2 09:45:00 Jean-Claude tion 11:23: [id number] 00 Safety can be left Safety Resolve 2017-042018-04-19 Laura alone for d 2- 09:45:00 Jean-Claude only short 11:23: [id number] periods 00 Musculoskel knowledge/s Musculoske Resolve 2017-042018-03-29 Laura etal kill letal d - 09:30:00 Jean-Claude deficit: cg 10:20: [id number] 00 Musculoskel requires Musculoske Resolve 2017-042018-04-12 Laura etal human letal d 2- 09:45:00 Jean-Claude assist to 10:20: [id number] leave home 00 Endo/Edgard diabetic Endo/Edgard Resolve 2017-042018-04-19 Laura foot care d 2- 09:45:00 Jean-Claude 09:30: [id number] 00 Elimination constipatio Eliminatio Resolve 2017-042018-04-12 Laura n n d 05-30 09:45:00 [place] 09:30: [id number] 00 Pain frequent Pain Mgmt Unknown 2017-04 Laura pain 06-06 Jean-Claude 09:45: [id number] 00 Endo/Edgard insulin Endo/Edgard Resolve 2017-042018-04-19 Laura admn d 06-06 09:45:00 [place] dependence 09:45: [id number] 00 Endo/Edgard anti-coagul Endo/Edgard Resolve 2017-042018-04-19 Laura ation d 06-06 09:45:00 [place] therapy 09:45: [id number] 00 Integument surgical Integument Resolve 2017-042018-04-05 Laura wound d 06-06 09:45:00 [place] present 09:45: [id number] 00 Integument skin Integument Resolve 2017-042018-04-05 Laura integrity d 06-06 09:45:00 Jean-Claude risk 09:45: [id number] 00 Integument pressure Integument Unknown 2017-04 Laura ulcer 06-06 Jean-Claude present 09:45: [id number] 00 Elimination UTI within Eliminatio Resolve 2017-042018-04-12 Laura past 14 n d 06-06 09:45:00 Jean-Claude days 09:45: [id number] 00 Activity ADL Activity Resolve 2017-042018-09-15 Laura assistance d 06-06 10:35:00 Jean-Claude required 09:45: [id number] 00 Safety fall risk Safety Resolve 2017-042018-04-19 Laura factor d 06-06 09:45:00 Jean-Claude present 09:45: [id number] 00 Medication potential Meds Resolve 2017-042018-04-19 Laura clinically d 06-06 09:45:00 Jean-Claude significant 09:45: [id number] medication 00 issue Medication oral med Meds Resolve 2017-042018-04-05 Shari assistance d 06-06 09:45:00 Regeczi required 09:45: [id number] 00 Medication injectable Meds Resolve 2017-042018-08-09 Shari med d 06-06 09:20:00 Regeczi assistance 09:45: [id number] required 00 Musculoskel transfer Musculoske Resolve 2017-042018-04-12 Shari etal assistance letal d 06-06 09:45:00 Regeczi required 09:45: [id number] 00 Medication oral med Meds Resolve 2017-042018-04-19 Laura assistance d 06-08 09:45:00 Jean-Claude required 10:00: [id number] 00 Medication injectable Meds Unknown 2017-04 Laura med 06-08 [place] assistance 10:00: [id number] required 00 Sensory impaired Sensory Resolve 2017-042018-04-19 Nima verbal d 06-08 09:45:00 Graves communicati 15:20: [id number] on 00 Sensory impaired Sensory Resolve 2017-042018-04-19 Nima hearing d 06-08 09:45:00 Graves 15:20: [id number] 00 Medication injectable Meds Unknown 2017-04 Nhung med Pérez assistance 14:56: [id number] required 00 Medication injectable Meds Unknown Nima med 04-13 Graves assistance 13:50: [id number] required 00 Elimination constipatio Eliminatio Resolve 2018-04-19 Laura n n d 04-14 09:45:00 Jean-Claude 09:28: [id number] 00 Medication injectable Meds Unknown Laura med 04-17 [place] assistance 10:00: [id number] required 00 Medication injectable Meds Resolve 2018-04-19 Laura med d 04-19 09:45:00 [place] assistance 09:45: [id number] required 00 Endo/Edgard anti-coagul Endo/Edgard Resolve 2018-04-26 Laura ation d 04-21 10:15:00 Jean-Claude therapy 09:45: [id number] 00 Nutrition knowledge/s Nutrition Resolve 2018-04-26 Laura kill d 04-21 10:15:00 [place] deficit: pt 09:45: [id number] 00 Nutrition nutritional Nutrition Resolve 2018-04-26 Laura restriction d 04-21 10:15:00 Jean-Claude s 09:45: [id number] 00 Elimination catheter Eliminatio Resolve 2018-04-26 Laura present n d 04-21 10:15:00 Jean-Claude 09:45: [id number] 00 Elimination constipatio Eliminatio Resolve 2018-04-26 Laura n n d 04-21 10:15:00 Jean-Claude 09:45: [id number] 00 Safety risk for Safety Resolve 2018-04-26 Laura hospitaliza d 1-11 10:15:00 Jean-Claude tion 09:45: [id number] 00 Safety can be left Safety Resolve 2018-04-26 Laura alone for d 1-11 10:15:00 Jean-Claude only short 09:45: [id number] periods 00 Sensory impaired Sensory Resolve 2018-04-26 Nima verbal d 1-11 10:15:00 Graves communicati 14:30: [id number] on 00 Sensory impaired Sensory Resolve 2018-04-26 Nima hearing d 1-11 10:15:00 [place] 14:30: [id number] 00 Sensory impaired Sensory Resolve 2018-04-28 Nima verbal d 1-17 10:20:00 Graves communicati 12:45: [id number] on 00 Sensory impaired Sensory Resolve 2018-04-28 Nima hearing d 1-17 10:20:00 [place] 12:45: [id number] 00 Endo/Edgard anti-coagul Endo/Edgard Resolve 2018-05-24 Laura ation d 1-18 12:30:00 Jean-Claude therapy 10:20: [id number] 00 Safety risk for Safety Active Laura hospitaliza - [place] tion 10:20: [id number] 00 Safety can be left Safety Resolve 2018-05-10 Laura alone for d 1- 13:45:00 Jean-Claude only short 10:10: [id number] Sensory impaired Sensory Resolve 2018-05-10 Jia hearing d 05-05 13:45:00 Hillebrand 13:30: t 00 [id number] Sensory impaired Sensory Resolve 2018-05-10 Jia verbal d 1 13:45:00 Hillebrand communicati 13:30: t on 00 [id number] Elimination catheter Eliminatio Resolve 2018-05-08 Wandy present n d 05-08 08:50:00 ,Kaylee 08:50: 00 Elimination constipatio Eliminatio Resolve 2018-06-28 Wandy n n d 05-08 09:45:00 ,Kaylee 08:50: 00 Safety cannot be Safety Resolve 2018-05-10 Lauar left alone d 1- 13:45:00 [place] 08:50: [id number] 00 Elimination catheter Eliminatio Resolve 2018-05-12 Shari present n d 2- 09:30:00 Regeczi 09:30: [id number] 00 Safety can be left Safety Resolve 2018-05-17 Laura alone for d - 10:00:00 Jean-Claude only short 09:30: [id number] periods 00 Elimination urinary Eliminatio Resolve 2018-05-15 Laura incontinenc n d 05-15 08:45:00 [place] e 08:45: [id number] 00 Pain frequent Pain Mgmt Resolve 2018-05-17 Laura pain d 2-06 10:00:00 [place] 10:00: [id number] 00 Respiratory lung sounds Respirator Resolve 2018-05-22 Laura deficit y d 2-06 10:44:00 Jean-Claude 10:00: [id number] 00 Integument pressure Integument Unknown Laura ulcer 2-06 Jean-Claude present 10:00: [id number] 00 Integument skin Integument Resolve 2018-05-17 Laura integrity d 2-06 10:00:00 [place] risk 10:00: [id number] 00 Integument surgical Integument Resolve 2018-05-17 Laura wound d 2-06 10:00:00 Jean-Claude present 10:00: [id number] 00 Activity ADL Activity Unknown 2018- Laura assistance 2-06 [place] required 10:00: [id number] 00 Activity self-care Activity Resolve 2018-05-19 Laura deficit d 2-06 11:15:00 Jean-Claude 10:00: [id number] 00 Safety fall risk Safety Resolve 2018-05-19 Laura factor d 2-06 11:15:00 [place] present 10:00: [id number] 00 Elimination urinary Eliminatio Resolve 2018-05-24 [place]berry incontinenc n d 2- 12:30:00 Kaylee 11:15: 00 Safety can be left Safety Resolve 2018-05-24 Laura alone for d 2-08 12:30:00 Jean-Claude only short 11:15: [id number] periods 00 Safety fall risk Safety Resolve 2018-05-24 Sonia White factor d 2-12 12:30:00 present 09:48: 41 Endo/Edgard glucose Endo/Edgard Resolve 2018-05-24 Laura tolerance d 2-13 12:30:00 [place] problem 12:30: [id number] 00 Respiratory Incentive Respirator Resolve 2018-06-07 Laura Spirometer y d 2-15 12:00:00 Jean-Claude /Acapella 13:40: [id number] Device 00 treatments in home Endo/Edgard anti-coagul Endo/Edgard Resolve 2018-06-12 Laura ation d 2-15 09:30:00 Jean-Claude therapy 13:40: [id number] 00 Elimination urinary Eliminatio Resolve 2018-05-26 Laura incontinenc n d 2-15 13:40:00 Jean-Claude e 13:40: [id number] 00 Safety can be left Safety Resolve 2018-06-07 Laura alone for d 2-15 12:00:00 Jean-Claude only short 13:40: [id number] periods 00 Endo/Edgard glucose Endo/Edgard Resolve 2018-06-07 Cherrise tolerance d 2-22 12:00:00 [place] problem 10:15: [id number] 00 Endo/Edgard insulin Endo/Edgard Resolve 2018-06-12 Cherrise admn d 2-22 09:30:00 [place] dependence 10:15: [id number] 00 Endo/Edgard glucose Endo/Edgard Resolve 2018-06-12 Cherrise testing d 2- 09:30:00 Trixie dependence 10:15: [id number] 00 Safety fall risk Safety Resolve 2018-06-07 Cherrise factor d 2-22 12:00:00 [place] present 10:15: [id number] 00 Musculoskel transfer Musculoske Active Cherrise etal assistance letal 06-02 Trixie required 10:15: [id number] 00 Musculoskel requires Musculoske Active Cherrise etal human letal 2 [place] assist to 10:15: [id number] leave home 00 Elimination urinary Eliminatio Resolve 2018-06-07 Laura incontinenc n d 06-05 12:00:00 Jean-Claude e 12:30: [id number] 00 Activity self-care Activity Resolve 2018-08-14 Laura deficit d 06-05 12:10:00 [place] 12:30: [id number] 00 Elimination urinary Eliminatio Resolve 2018-06-12 Laura incontinenc n d 06-09 09:30:00 Jean-Claude e 09:13: [id number] 00 Safety can be left Safety Resolve 2018-06-12 Laura alone for d 06-09 09:30:00 Jean-Claude only short 09:13: [id number] periods 00 Respiratory Incentive Respirator Resolve 2018-06-14 Laura Spirometer y d 06-12 09:30:00 Jean-Claude /Acapemiguel 09:30: [id number] Device 00 treatments in home Endo/Edgard anti-coagul Endo/Edgard Resolve 2018-06-30 Laura ation d 06-14 09:19:00 Jean-Claude therapy 09:30: [id number] 00 Safety can be left Safety Resolve 2018-06-30 Laura alone for d 06-14 09:19:00 Jean-Claude alejo 09:30: [id number] periods 00 Elimination urinary Eliminatio Resolve 2018-06-19 Laura incontinenc n d 06-16 13:45:00 Jean-Claude e 09:45: [id number] 00 Elimination urinary Eliminatio Resolve 2018-06-28 Laura incontinenc n d 06-23 09:45:00 Jean-Claude e 13:15: [id number] 00 Elimination constipatio Eliminatio Resolve 2018-07-14 Laura n n d 06-30 09:20:00 [place] 09:19: [id number] 00 Endo/Edgard anti-coagul Endo/Edgard Resolve 2018-07-14 Laura ation d 07-03 09:20:00 Jean-Claude therapy 12:49: [id number] 00 Elimination urinary Eliminatio Resolve 2018-07-14 Laura incontinenc n d 07-03 09:20:00 [place] e 12:49: [id number] 00 Safety can be left Safety Resolve 2018-08-18 Laura alone for d 07-07 12:05:00 Jean-Claude only short 12:50: [id number] periods 00 Endo/Edgard glucose Endo/Edgard Resolve 2018-07-14 Shi testing d 07-10 09:20:00 Sorin, dependence 12:30: [id number] 00 Pain frequent Pain Mgmt Resolve 2018-07-14 Laura pain d 07-14 09:20:00 Jean-Claude 09:20: [id number] 00 Integument surgical Integument Resolve 2018-08-13 Laura wound d 07-14 12:50:00 Jean-Claude present 09:20: [id number] 00 Integument skin Integument Resolve 2018-08-13 Laura integrity d 07-14 12:50:00 [place] risk 09:20: [id number] 00 Safety fall risk Safety Resolve 2018-08-18 Laura factor d 07-14 12:05:00 [place] present 09:20: [id number] 00 Endo/Edgard anti-coagul Endo/Edgard Resolve 2018-08-14 Laura ation d 07-17 12:10:00 Jean-Claude therapy 13:00: [id number] 00 Elimination urinary Eliminatio Resolve 2018-07-21 Laura incontinenc n d 07-17 09:25:00 Jean-Claude e 13:00: [id number] 00 Activity ADL Activity Unknown Laura assistance 07-17 [place] required 13:00: [id number] 00 Elimination urinary Eliminatio Resolve 2018-08-14 Laura incontinenc n d 07-24 12:10:00 [place] e 09:27: [id number] 00 Pain frequent Pain Mgmt Resolve 2018 Laura pain d 08-07 09:20:00 Jean-Claude 12:45: [id number] 00 Cardio edema Cardiovasc Resolve 2018 Laura ular d 08-07 09:20:00 Jean-Claude 12:45: [id number] 00 Respiratory dyspnea Respirator Resolve 2018 Laura present y d 08-07 09:20:00 Jean-Claude 12:45: [id number] 00 Endo/Edgard diabetic Endo/Edgard Resolve 2018-08-14 Laura foot care d 08-07 12:10:00 Jean-Claude 12:45: [id number] 00 Nutrition knowledge/s Nutrition Active Laura kill 08-07 Jean-Claude deficit: pt 12:45: [id number] 00 Nutrition nutritional Nutrition Active Laura restriction 08-07 Jean-Claude s 12:45: [id number] 00 Neuro confusion Neuro/Emot Resolve 2018-08-14 Laura present ion d 08-07 12:10:00 Jean-Claude 12:45: [id number] 00 Medication oral med Meds Resolve 2018 Laura assistance d 08-07 09:20:00 [place] required 12:45: [id number] 00 Medication injectable Meds Resolve 2018 Jia med d 08-07 09:20:00 Jerardo assistance 12:45: [id number] required 00 Cardio edema Cardiovasc Resolve 2018-08-23 Laura ular d 08-13 11:15:00 Jean-Claude 12:50: [id number] 00 Respiratory dyspnea Respirator Resolve 2018-08-14 Laura present y d 08-13 12:10:00 Jean-Claude 12:50: [id number] 00 Endo/Edgard anti-coagul Endo/Edgard Resolve 2018-08-28 Laura ation d 08-16 12:00:00 Jean-Claude therapy 12:15: [id number] 00 Elimination urinary Eliminatio Resolve 2018-08-21 Laura incontinenc n d 08-16 12:45:00 Jean-Claude e 12:15: [id number] 00 Sensory impaired Sensory Resolve 2018-08-21 Krystyna verbal d 08-17 12:45:00 [place] communicati 14:30: [id number] on 00 Sensory impaired Sensory Resolve 2018-08-21 Krystyna hearing d 08-17 12:45:00 [place] 14:30: [id number] 00 Social financial LILLIAN: Resolve 2019-02-16 Krystyna Services resource Social d 08-17 13:45:00 [place] deficit Services 14:30: [id number] 00 Social knowledge/s LILLIAN: Resolve 2018-08-17 Krystyna Services kill Social d 08-17 14:30:00 [place] deficit - Services 14:30: [id number] pt 00 Social knowledge/s LILLIAN: Resolve 2018-08-17 Krystyna Services kill Social d 08-17 14:30:00 [place] deficit - Services 14:30: [id number] cg 00 Safety can be left Safety Resolve 2018-09-07 Laura alone for d 5-15 10:00:00 Jean-Claude cruz short 11:15: [id number] periods 00 Social knowledge/s LILLIAN: Active Laura Services kill Social 08-23 [place] deficit - Services 11:15: [id number] pt 00 Elimination urinary Eliminatio Resolve 2018-09-07 Laura incontinenc n d 08-25 10:00:00 Jean-Claude e 11:45: [id number] 00 Sensory impaired Sensory Resolve 2018-09-07 Krystyna verbal d 09-01 [facility] 14[facility] [id number] on 00 Sensory impaired Sensory Resolve 2018-09-07 Krystyna hearing d 09-01 10:00:00 [facility] 14:45: [id number] 00 Social knowledge/s LILLIAN: Active Krystyna Services kill Social 09-01 [place] deficit - Services 14:45: [id number] cg 00 Respiratory dyspnea Respirator Resolve 2018-09-15 Laura present y d 09-07 10:35:00 Jean-Claude 10:00: [id number] 00 Pain frequent Pain Mgmt Resolve 2018-09-11 Laura pain d 09-11 11:50:00 Jean-Claude 11:50: [id number] 00 Cardio hypertensio Cardiovasc Resolve 2018-09-11 Laura n ular d 09-11 11:50:00 Jean-Claude 11:50: [id number] 00 Integument pressure Integument Resolve 2018-09-15 Laura ulcer d 6 10:35:00 Jean-Claude present 11:50: [id number] 00 Integument surgical Integument Resolve 2018-09-15 Laura wound d 6-03 10:35:00 [place] present 11:50: [id number] 00 Integument skin Integument Resolve 2018-09-15 Laura integrity d 09-11 10:35:00 [place] risk 11:50: [id number] 00 Elimination urinary Eliminatio Resolve 2018-09-11 Laura incontinenc n d 09-11 11:50:00 Jean-Claude e 11:50: [id number] 00 Activity ADL Activity Unknown Laura assistance 09-11 [place] required 11:50: [id number] 00 Activity self-care Activity Resolve 2018-09-15 Laura deficit d 09-11 10:35:00 Jean-Claude 11:50: [id number] 00 Safety fall risk Safety Resolve 2018-09-15 Laura factor d 09-11 10:35:00 [place] present 11:50: [id number] 00 Safety can be left Safety Resolve 2018-09-15 Laura alone for d 09-11 10:35:00 Jean-Claude only short 11:50: [id number] periods 00 Endo/Edgard anti-coagul Endo/Edgard Resolve 2018-09-18 Laura ation d 09-15 12:20:00 [place] therapy 10:35: [id number] 00 Elimination urinary Eliminatio Resolve 2018-09-18 Laura incontinenc n d 09-15 12:20:00 Jean-Claude e 10:35: [id number] 00 Elimination constipatio Eliminatio Resolve 2018-09-18 Laura n n d 09-15 12:20:00 Jean-Claude 10:35: [id number] 00 Safety can be left Safety Resolve 2018-09-25 Laura alone for d 610 11:45:00 Jean-Claude only short 12:20: [id number] periods 00 Cardio hypertensio Cardiovasc Resolve 2018-09-21 Laura n ular d 09-21 11:45:00 Jean-Claude 11:45: [id number] 00 Endo/Edgard anti-coagul Endo/Edgard Resolve 2018-09-25 Laura ation d 09-21 11:45:00 Jean-Claude therapy 11:45: [id number] 00 Cardio hypertensio Cardiovasc Resolve 2018-10-02 Laura n ular d 6- 12:05:00 Jean-Claude 11:45: [id number] 00 Elimination urinary Eliminatio Resolve 2018-10-02 Laura incontinenc n d 6 12:05:00 Jean-Claude e 11:45: [id number] 00 Endo/Edgard anti-coagul Endo/Edgard Resolve 2018-10-02 Laura ation d 09-29 12:05:00 [place] therapy 09:45: [id number] 00 Safety can be left Safety Resolve 2018-10-02 Laura alone for d 09-29 12:05:00 Jean-Claude only short 09:45: [id number] 00 Endo/Edgard anti-coagul Endo/Degard Resolve 2018-10-27 Laura ation d 10-04 11:30:00 [place] therapy 10:10: [id number] 00 Elimination urinary Eliminatio Resolve 2018-10-06 Laura incontinenc n d 10-04 09:10:00 Jean-Claude e 10:10: [id number] 00 Elimination constipatio Eliminatio Resolve 2018-10-06 Laura n n d 10-04 09:10:00 Jean-Claude 10:10: [id number] 00 Safety can be left Safety Resolve 2018-10-06 Laura alone for d 10-04 09:10:00 Jean-Claude only short 10:10: [id number] Sensory impaired Sensory Resolve 2018-10-23 Krystyna verbal d 10-05 11:56:00 [place] communicati 15:00: [id number] on 00 Sensory impaired Sensory Resolve 2018-10-23 Krystyna hearing d 10-05 11:56:00 [place] 15:00: [id number] 00 Elimination urinary Eliminatio Resolve 2018-10-27 Laura incontinenc n d 10-09 11:30:00 Jean-Claude butler 12:15: [id number] 00 Elimination bloody Eliminatio Resolve 2018-10-27 Laura urine n d 10-09 11:30:00 Jean-Claude 12:15: [id number] 00 Safety can be left Safety Resolve 2018-10-23 Laura alone for d 10-09 11:56:00 Jean-Claude only short 12:15: [id number] periods Elimination constipatio Eliminatio Resolve 2018-12-08 Laura n n d 10-16 14:00:00 Jean-Claude 12:35: [id number] 00 Cardio edema Cardiovasc Resolve 2018-10-27 Laura ular d 10-20 11:30:00 Jean-Claude 11:35: [id number] 00 Endo/Edgard knowledge/s Endo/Edgard Resolve 2018-10-27 Laura kill d 10-20 11:30:00 Jean-Claude deficit: pt 11:35: [id number] 00 Sensory impaired Sensory Unknown Jonatan verbal 7-15 Demarco, communicati 13:30: PT on [id number] Sensory impaired Sensory Unknown Jonatan hearing 15 Demarco, 13:30: PT [id number] Safety can be left Safety Resolve 2018-10-27 Laura alone for d 10-25 11:30:00 Jean-Claude cruz short 10:35: [id number] 00 Endo/Edgard glucose Endo/Edgard Resolve 2018-12-11 Cherrise tolerance d 10-30 09:30:00 [place] problem 11:55: [id number] 00 Endo/Edgard insulin Endo/Edgard Resolve 2018-12-13 Cherrise admn d 10-30 11:10:00 Trixie dependence 11:55: [id number] 00 Endo/Edgard glucose Endo/Edgard Resolve 2018-12-13 Cherrise testing d 10-30 11:10:00 [place] dependence 11:55: [id number] 00 Endo/Edgard knowledge/s Endo/Edgard Resolve 2018-12-08 Cherrise kill d 10-30 14:00:00 Trixie deficit: pt 11:55: [id number] 00 Elimination urinary Eliminatio Resolve 2018-12-08 Cherrise urgency n d 10-30 14:00:00 [place] 11:55: [id number] 00 Neuro depressive Neuro/Emot Resolve 2018-12-08 Cherrise feelings ion d 10-30 14:00:00 Trixie present 11:55: [id number] 00 Neuro impaired Neuro/Emot Resolve 2018-12-08 Cherrise decision-ma ion d 10-30 14:00:00 [place] pj 11:55: [id number] 00 Safety fall risk Safety Resolve 2018-12-06 Cherrise factor d 10-30 13:05:00 [place] present 11:55: [id number] 00 Endo/Edgard anti-coagul Endo/Edgard Resolve 2018-12-13 Shi ation d 11-01 11:10:00 Sorin, therapy 12:30: [id number] 00 Respiratory Incentive Respirator Resolve 2018-11-29 Cherrise Spirometer y d 11-03 10:15:00 [place] /Acapella 10:25: [id number] Device 00 treatments in home Elimination urinary Eliminatio Resolve 2018-12-08 Cherrise frequency n d 11-03 14:00:00 [place] 10:25: [id number] 00 Respiratory lung sounds Respirator Resolve 2018-11-29 Cherrise deficit y d 11-06 10:15:00 Trixie 12:05: [id number] 00 Neuro memory Neuro/Emot Resolve 2018-12-08 Cherrise deficit ion d 11-08 14:00:00 Trixie needing 10:30: [id number] supervision 00 Pain frequent Pain Mgmt Resolve 2018-12-06 Shi pain d 11-10 13:05:00 Sorin, 11:00: [id number] 00 Integument pressure Integument Active Shi ulcer 11-10 Sorin, present 11:00: [id number] 00 Integument surgical Integument Active 2018- Shi wound 11-10 Sorin, present 11:00: [id number] 00 Integument skin Integument Active 2018- Shi integrity 11-10 Sorin, risk 11:00: [id number] 00 Elimination urinary Eliminatio Resolve 2018-12-08 Shi incontinenc n d 11-10 14:00:00 Sorin, e 11:00: [id number] 00 Activity self-care Activity Resolve 2018-11-29 Shi deficit d 11-10 10:15:00 Sorin, 11:00: [id number] 00 Activity ADL Activity Resolve 2018-12-08 Shi assistance d 11-10 14:00:00 Sorin, required 11:00: [id number] 00 Pain knowledge/s Pain Mgmt Resolve 2018-12-06 Krystyna kill d 11-16 13:05:00 [place] deficit: cg 15:15: [id number] 00 Respiratory knowledge/s Respirator Resolve 2018-11-29 Krystyna kill y d 11-16 10:15:00 [place] deficit: cg 15:15: [id number] 00 Integument knowledge/s Integument Active Krystyna kill 11-16 [place] deficit: cg 15:15: [id number] 00 Elimination knowledge/s Eliminatio Resolve 2018-12-08 Krystyna kill n d 11-16 14:00:00 [place] deficit: cg 15:15: [id number] 00 Safety knowledge/s Safety Resolve 2018-12-06 Krystyna kill d 11-16 13:05:00 [place] deficit: cg 15:15: [id number] 00 Cardio hypertensio Cardiovasc Resolve 2018-11-29 Lenny jarvis joseph d 11-17 10:15:00 [place] 10:45: [id number] 00 Safety can be left Safety Resolve 2018-12-08 Shi alone for d 11-22 14:00:00 nancy Rowell short 11:00: [id number] periods 00 Sensory impaired Sensory Resolve 2018-12-08 Laura verbal d 11-24 14:00:00 Jean-Claude communicati 09:30: [id number] on 00 Sensory impaired Sensory Resolve 2018-12-08 Laura hearing d 11-24 14:00:00 Jean-Claude 09:30: [id number] 00 Respiratory knowledge/s Respirator Resolve 2018-12-08 Laura kill y d 12-01 14:00:00 Jean-Claude deficit: cg 09:30: [id number] 00 Sensory impaired Sensory Unknown Krystyna verbal 8 [place] communicati 15:00: [id number] on 00 Sensory impaired Sensory Unknown Krystyna hearing 12-08 [place] 15:00: [id number] 00 Respiratory knowledge/s Respirator Resolve 2018-12-13 Laura kill y d 12-11 11:10:00 Jean-Claude deficit: cg 09:30: [id number] 00 Endo/Edgard knowledge/s Endo/Edgard Resolve 2018-12-13 Laura kill d 12-11 11:10:00 [place] deficit: pt 09:30: [id number] 00 Elimination urinary Eliminatio Resolve 2018-12-15 Laura incontinenc n d 12-11 13:10:00 Jean-Claude e 09:30: [id number] 00 Safety can be left Safety Resolve 2018-12-15 Laura alone for d 12-11 13:10:00 Jean-Claude only short 09:30: [id number] 00 Endo/Edgard knowledge/s Endo/Edgard Resolve 2019-01-05 Laura kill d 12-15 11:00:00 Jean-Claude deficit: pt 13:10: [id number] 00 Endo/Edgard anti-coagul Endo/Edgard Resolve 2019-01-05 Laura ation d 12-15 11:00:00 Jean-Claude therapy 13:10: [id number] 00 Elimination urinary Eliminatio Resolve 2018-12-27 Laura incontinenc n d 12-18 09:20:00 Jean-Claude e 12:10: [id number] 00 Safety can be left Safety Resolve 2019-01-05 Laura alone for d 12-18 11:00:00 Jean-Claude only short 12:10: [id number] periods 00 Elimination constipatio Eliminatio Resolve 2019-01-05 Laura n n d 12-20 11:00:00 Jean-Claude 12:15: [id number] 00 Pain frequent Pain Mgmt Resolve 2019-01-15 Laura pain d 12-27 12:30:00 Jean-Claude 09:20: [id number] 00 Respiratory dyspnea Respirator Resolve 2019-01-05 Laura present y d 12-27 11:00:00 Jean-Claude 09:20: [id number] 00 Endo/Edgard diabetic Endo/Edgard Resolve 2019-01-05 Laura foot care d 9 11:00:00 Jean-Claude 09:20: [id number] 00 Elimination diarrhea Eliminatio Resolve 2019-01-05 Laura n d 18 11:00:00 Jean-Claude 09:20: [id number] 00 Neuro confusion Neuro/Emot Resolve 2019-01-05 Laura present ion d 12-27 11:00:00 Jean-Claude 09:20: [id number] 00 Neuro anxiety Neuro/Emot Resolve 2019-01-05 Laura present ion d 12-27 11:00:00 Jean-Claude 09:20: [id number] 00 Activity ADL Activity Resolve 2019-01-05 Laura assistance d 12-27 11:00:00 [place] required 09:20: [id number] 00 Activity self-care Activity Resolve 2019-01-05 Laura deficit d 12-27 11:00:00 Jean-Claude 09:20: [id number] 00 Safety fall risk Safety Resolve 2019-01-05 Laura factor d 12-27 11:00:00 Jean-Claude present 09:20: [id number] 00 Medication potential Meds Resolve 2019-01-05 Laura clinically d 12-27 11:00:00 [place] significant 09:20: [id number] medication 00 issue Elimination urinary Eliminatio Resolve 2019-01-05 Laura incontinenc n d 12-29 11:00:00 Jean-Claude e 11:20: [id number] 00 Endo/Edgard knowledge/s Endo/Edgard Resolve 2019-01-10 Laura kill d 01-08 10:00:00 Jean-Claude deficit: pt 11:30: [id number] 00 Endo/Edgard anti-coagul Endo/Edgard Resolve 2019-01-10 Laura ation d 01-08 10:00:00 Jean-Claude therapy 11:30: [id number] 00 Elimination urinary Eliminatio Resolve 2019-01-15 Laura incontinenc n d 01-08 12:30:00 [place] e 11:30: [id number] 00 Safety can be left Safety Resolve 2019-02-16 Laura alone for d 9-30 12:00:00 Jean-Claude only short 11:30: [id number] periods 00 Respiratory dyspnea Respirator Resolve 2018-042019-01-26 Laura present y d 0-02 10:00:00 Jean-Claude 10:00: [id number] 00 Activity ADL Activity Resolve 2018-042019-01-12 Laura assistance d 0-02 11:30:00 [place] required 10:00: [id number] 00 Activity self-care Activity Resolve 2018-042019-01-12 Laura deficit d 0-02 11:30:00 [place] 10:00: [id number] 00 Safety fall risk Safety Resolve 2018-042019-01-12 Laura factor d 0-02 11:30:00 [place] present 10:00: [id number] 00 Medication injectable Meds Resolve 2018-042019-01-17 Laura med d 0-02 09:45:00 [place] assistance 10:00: [id number] required 00 Endo/Edgard knowledge/s Endo/Edgard Resolve 2018-042019-01-15 Laura kill d 0-04 12:30:00 Jean-Claude deficit: pt 11:30: [id number] 00 Endo/Edgard anti-coagul Endo/Edgard Resolve 2018-042019-01-15 Laura ation d 0-04 12:30:00 [place] therapy 11:30: [id number] 00 Elimination constipatio Eliminatio Resolve 2018-042019-01-15 Laura n n d 0-04 12:30:00 [place] 11:30: [id number] 00 Sensory impaired Sensory Resolve 2018-042019-01-15 Krystyna verbal d 0-04 12:30:00 Kathy communicati 15:30: [id number] on 00 Sensory impaired Sensory Resolve 2018-042019-01-15 Krystyna hearing d 0-04 12:30:00 [place] 15:30: [id number] 00 Infection s/s of Infection Resolve 2018-042019-03-09 Laura infection d 0-07 11:00:00 Jean-Claude 12:30: [id number] 00 Sensory impaired Sensory Resolve 2018-042019-01-22 Jonatan verbal d 0-08 11:00:00 ambrosio Pal 13:00: PT on 00 [id number] Sensory impaired Sensory Resolve 2018-042019-01-22 Jonatan hearing d 0-08 11:00:00 Demarco, 13:00: PT 00 [id number] Endo/Edgard knowledge/s Endo/Edgard Resolve 2018-042019-02-07 Laura kill d 0-09 11:20:00 Jean-Claude deficit: pt 09:45: [id number] 00 Endo/Edgard anti-coagul Endo/Edgard Resolve 2018-042019-02-07 Laura ation d 0-09 11:20:00 Jean-Claude therapy 09:45: [id number] 00 Elimination urinary Eliminatio Resolve 2018-042019-02-02 Laura incontinenc n d 0-09 11:30:00 Jean-Claude e 09:45: [id number] 00 Elimination constipatio Eliminatio Resolve 2018-042019-02-02 Laura n n d 0-16 11:30:00 [place] 10:00: [id number] 00 Sensory impaired Sensory Resolve 2018-042019-01-31 Jonatan verbal d 0-17 11:10:00 Demarco, communicflorentino 15:00: PT on 00 [id number] Sensory impaired Sensory Resolve 2018-042019-01-31 Jonatan hearing d 0-17 11:10:00 Demarco, 15:00: PT 00 [id number] Pain frequent Pain Mgmt Resolve 2018-042019-02-16 Jonatan pain d 0-23 12:00:00 Deamrco, 13:00: PT 00 [id number] Sensory impaired Sensory Unknown 2018-04 Jonatan verbal 0-23 Demarco, communicati 13:00: PT on 00 [id number] Sensory impaired Sensory Unknown 2018-04 Jonatan hearing 0-23 Demarco, 13:00: PT 00 [id number] Respiratory dyspnea Respirator Resolve 2018-042019-02-07 Laura present y d 0-25 11:20:00 Jean-Claude 11:30: [id number] 00 Elimination urinary Eliminatio Resolve 2018-042019-02-07 Laura incontinenc n d 0-28 11:20:00 Jean-Claude e 12:40: [id number] 00 Endo/Edgard knowledge/s Endo/Edgard Resolve 2018-042019-02-19 Laura kill d 1 12:40:00 Jean-Claude deficit: pt 12:30: [id number] 00 Endo/Edgard anti-coagul Endo/Edgard Resolve 2018-042019-02-19 Laura ation d 04-11 12:40:00 Jean-Claude therapy 12:30: [id number] 00 Elimination urinary Eliminatio Resolve 2018-042019-02-16 Laura incontinenc n d 04-11 12:00:00 Jean-Claude e 12:30: [id number] 00 Medication potential Meds Resolve 2018-042019-02-24 Laura clinically d 04-14 09:45:00 [place] significant 12:20: [id number] medication 00 issue Elimination constipatio Eliminatio Resolve 2018-042019-02-16 Laura n n d 04-16 12:00:00 Jean-Claude 11:20: [id number] 00 Elimination urinary Eliminatio Resolve 2018-042019-02-24 Laura incontinenc n d 04-21 09:45:00 [place] e 12:40: [id number] 00 Safety can be left Safety Resolve 2018-042019-02-24 Laura alone for d 04-21 09:45:00 Jean-Claude only short 12:40: [id number] periods 00 Endo/Edgard knowledge/s Endo/Edgard Resolve 2018-042019-02-24 Laura kill d 04-23 09:45:00 Jean-Claude deficit: pt 12:05: [id number] 00 Endo/Edgard anti-coagul Endo/Edgard Resolve 2018-042019-02-24 Laura ation d 04-23 09:45:00 Jean-Claude therapy 12:05: [id number] 00 Sensory impaired Sensory Resolve 2018-042019-02-26 Laura verbal d 04-26 13:20:00 Jean-Claude communicati 09:45: [id number] on 00 Sensory impaired Sensory Resolve 2018-042019-02-26 Laura hearing d 04-26 13:20:00 Jean-Claude 09:45: [id number] 00 Endo/Edgard knowledge/s Endo/Edgard Resolve 2018-042019-02-28 Laura kill d 04-28 11:15:00 [place] deficit: pt 13:20: [id number] 00 Endo/Edgard anti-coagul Endo/Edgard Resolve 2018-042019-02-28 Laura ation d 04-28 11:15:00 Jean-Claude therapy 13:20: [id number] 00 Elimination urinary Eliminatio Resolve 2018-042019-03-09 Laura incontinenc n d 04-28 11:00:00 [place] e 13:20: [id number] 00 Safety can be left Safety Resolve 2018-042019-03-05 Laura alone for d 04-28 12:45:00 Jean-Claude only short 13:20: [id number] periods 00 Endo/Edgard knowledge/s Endo/Edgard Resolve 2018-042019-03-09 Laura kill d 05-05 11:00:00 [place] deficit: pt 12:45: [id number] 00 Endo/Edgard anti-coagul Endo/Edgard Resolve 2018-042019-03-09 Laura ation d 05-05 11:00:00 [place] therapy 12:45: [id number] 00 Safety can be left Safety Resolve 2018-042019-03-09 Laura alone for d 05-07 11:00:00 [place] only short 11:25: [id number] Sensory impaired Sensory Resolve 2018-042019-03-12 Krystyna verbal d 05-09 11:15:00 [place] communicati 12:00: [id number] on 00 Sensory impaired Sensory Resolve 2018-042019-03-12 Krystyna hearing d 05-09 11:15:00 [place] 12:00: [id number] 00 Social financial LILLIAN: Active 2018-04 Krystyna Services resource Social 05-09 [facility] deficit Services 12:00: [id number] 00 Respiratory dyspnea Respirator Resolve 2018-042019-03-14 Laura present y d 05-13 10:30:00 Jean-Claude 11:15: [id number] 00 Endo/Edgard knowledge/s Endo/Edgard Active 2018-04 Laura kill 05-13 [place] deficit: pt 11:15: [id number] 00 Endo/Edgard anti-coagul Endo/Edgard Active 2018-04 Laura ation 05-13 [place] therapy 11:15: [id number] 00 Elimination urinary Eliminatio Resolve 2018-042019-03-14 Laura incontinenc n d 05-13 10:30:00 [place] e 11:15: [id number] 00 Activity ADL Activity Resolve 2018-042019-03-14 Laura assistance d 05-13 10:30:00 [place] required 11:15: [id number] 00 Activity self-care Activity Resolve 2018-042019-03-14 Laura deficit d 2- 10:30:00 Jean-Claude 11:15: [id number] 00 Safety fall risk Safety Resolve 2018-042019-03-14 Laura factor d 2- 10:30:00 [place] present 11:15: [id number] 00 Safety can be left Safety Resolve 2018-042019-03-14 Laura alone for d 2 10:30:00 [place] only short 11:15: [id number] periods 00 Medication injectable Meds Resolve 2018-042019-03-12 Laura med d 05-13 11:15:00 [place] assistance 11:15: [id number] required 00 Safety can be left Safety Resolve 2018-042019-03-19 Laura alone for d 05-17 11:40:00 Jean-Claude only short 09:15: [id number] periods 00 Elimination urinary Eliminatio Active 2018-04 Laura incontinenc n 09 Jean-Claude e 11:40: [id number] 00 Allergies, Adverse Reactions, Alerts Allergy Name Allergy Status Severity Reaction(s) Onset Inactive Treating Comments Type Date Date Clinician bananas Unknown Active Unknown Reaction 2017-04 [place] Unknown 0-10 (Radha) Nithin [id number] keflex Unknown Active Unknown Reaction 2017-04 Roselyn Unknown 0-10 (Radha) Nithin [id number] nuts Unknown Active Unknown Reaction 2017-04 [place] Unknown 0-10 (Radha) Nithin [id number] Cipro Medication Active Unknown Reaction 2017-04 Sonia White Name ID Unknown 0-10 metronidazol Base Active Unknown Nausea and 2017-04 [place] e Ingredient vomiting 2-20 Jordan [id number] Medications Ordered Filled Start Stop Current Ordering [...] nded nded release release loperamide loperamide No [place] 1-2 Unknown 2 mg tablet 2 mg tablet Latanya DAVID T tabs ( 2 tabs after 1st loose stool, then 1 tab up to 4 tabs/da y) clotrimazol clotrimazol No Shallish 1 tab Unknown e 10 mg e 10 mg MD,Jamie dissolv dutch ducth e in mouth docusate docusate 2017-04 No [...] No [place]ish Unknown Unknown MultiDose MultiDose - MD,Jaime 0.05 % eye 0.05 % eye drops [...] pen s pen testosteron testosteron 2017-04 No [place] Unknown Unknown e cypionate e cypionate 06-06 Latanya DAVID 200 mg/mL 200 mg/mL intramuscul intramuscul ar kit ar kit mometasone mometasone 2017-04 No [place] Unknown Unknown 0.1 % 0.1 % 06-06 Latanya DAVID topical topical cream cream finasteride finasteride 2017-04 No [place] Unknown Unknown 5 mg tablet 5 mg tablet 06-06 Latanya DAVID Levemir Levemir 2017-04- [place] Unknown Unknown FlexTouch FlexTouch 06-06 Latanya [...] Unknown Unknown mg tablet mg tablet 08-07 MD,Ajmie warfarin 5 warfarin 5 2018- No Shallish [...]
--- OUTSIDE RECORDS SUMMARY | 2019-04-11 14:38 | XMS REPORT ---
:1940 Author Organization [facility] Care Team Providers Name Role Phone Unavailable Unavailable Unavailable Problems Condition Condition Condition Status Onset Resolution Last Treating Comments Name Details Category Date Date Treatment Clinician Date Pain frequent Pain Mgmt Resolve 2017-042018-05-08 Roselyn pain d 0-10 08:50:00 (Radha) 11:15: Weller 00 [id number] Cardio edema Cardiovasc Resolve 2017-042018-02-20 Roselyn ular d 0-10 09:50:00 (Radha) 11:15: Weller 00 [id number] Respiratory dyspnea Respirator Resolve 2017-042018-02-15 Roselyn present y d 0-10 10:20:00 (Radha) 11:15: Weller 00 [id number] Endo/Edgard glucose Endo/Edgard Resolve 2017-042018-03-20 Roselyn testing d 0-10 12:30:00 (Radha) dependence 11:15: Weller 00 [id number] Endo/Edgard knowledge/s Endo/Edgard Resolve 2017-042018-03-06 Roselyn kill d 0-10 09:30:00 (Radha) deficit: pt 11:15: Weller 00 [id number] Endo/Edgard anti-coagul Endo/Edgard Resolve 2017-042018-03-20 Roselyn ation d 0-10 12:30:00 (Radha) therapy 11:15: Weller 00 [id number] Endo/Edgard diabetic Endo/Edgard Resolve 2017-042018-03-06 Roselyn foot care d 0-10 09:30:00 (Radha) 11:15: Weller 00 [id number] Sensory impaired Sensory Resolve 2017-042018-03-22 Roselyn hearing d 0-10 09:55:00 (Radha) 11:15: Weller 00 [id number] Integument pressure Integument Resolve 2017-042018-08-21 Roselyn ulcer d 0-10 12:45:00 (Radha) present 11:15: Weller [id number] Integument skin Integument Resolve 2017-042018-03-03 Roselyn integrity d 0-10 09:19:00 (Radha) risk 11:15: Weller [id number] Integument surgical Integument Resolve 2017-042018-03-03 Quality wound d 0-10 09:19:00 Realtime7 present 11:15: 00 Integument other wound Integument Resolve 2017-042018-03-03 Quality present d 0-10 09:19:00 Realtime7 11:15: 00 Elimination urinary Eliminatio Resolve 2017-042018-03-20 Roselyn incontinenc n d 0-10 12:30:00 (Radha) e 11:15: Weller [id number] Neuro confusion Neuro/Emot Resolve 2017-042018-03-22 Roselyn present ion d 0-10 09:55:00 (Radha) 11:15: Weller [id number] Neuro anxiety Neuro/Emot Resolve 2017-042018-03-22 Roselyn present ion d 0-10 09:55:00 (Radha) 11:15: Weller [id number] Neuro impaired Neuro/Emot Resolve 2017-042018-03-22 Roselyn decision-ma ion d 0-10 09:55:00 (Radha) pj 11:15: Weller [id number] Activity ADL Activity Resolve 2017-042018-03-22 Roselyn assistance d 0-10 09:55:00 (Radha) required 11:15: [id number] Safety structural Safety Resolve 2017-042018-03-22 Roselyn barriers d 0-10 09:55:00 (Radha) present 11:15: Weller [id number] Safety fall risk Safety Resolve 2017-042018-03-22 Roselyn factor d 0-10 09:55:00 (Radha) present 11:15: Weller [id number] Safety risk for Safety Resolve 2017-042018-03-22 Roselyn hospitaliza d 0-10 09:55:00 (Radha) tion 11:15: Weller [id number] Safety can be left Safety Resolve 2017-042018-03-22 Roselyn alone for d 0-10 09:55:00 (Radha) only short 11:15: Weller 00 [id number] Medication oral med Meds Resolve 2017-042018-02-06 Roselyn assistance d 0-10 09:15:00 (Radha) required 11:15: Weller [id number] Medication injectable Meds Resolve 2017-042018-02-06 Roselyn med d 0-10 09:15:00 (Radha) assistance 11:15: Weller required 00 [id number] Medication knowledge/s Meds Resolve 2017-042018-02-15 Roselyn kill d 0-10 10:20:00 (Radha) deficit: pt 11:15: Weller 00 [id number] Medication potential Meds Resolve 2017-042018-02-15 Roselyn clinically d 0-10 10:20:00 (Radha) significant 11:15: Weller medication 00 [id number] issue Musculoskel transfer Musculoske Resolve 2017-042018-03-20 Roselyn etal assistance letal d 0-10 12:30:00 (Radha) required 11:15: Weller [id number] Musculoskel requires Musculoske Resolve 2017-042018-03-20 Roselyn etal human letal d 0-10 12:30:00 (Radha) assist to 11:15: Weller leave home 00 [id number] Safety knowledge/s Safety Resolve 2017-042018-03-22 Laura kill d 0-12 09:55:00 Jean-Claude deficit: pt 10:00: [id number] 00 Respiratory knowledge/s Respirator Resolve 2017-042018-02-06 Laura kill y d 0-15 09:15:00 Jean-Claude deficit: cg 10:00: [id number] 00 Respiratory lung sounds Respirator Resolve 2017-042018-02-06 Laura deficit y d 0-15 09:15:00 Julian 10:00: [id number] 00 Sensory impaired Sensory Resolve 2017-042018-03-22 Quality verbal d 0-17 09:55:00 Realtime7 communicati 18:36: on 42 Musculoskel knowledge/s Musculoske Resolve 2017-042018-03-03 Laura etal kill letal d 0-24 09:19:00 Jean-Claude deficit: cg 09:45: [id number] 00 Nutrition knowledge/s Nutrition Resolve 2017-042018-03-03 Laura kill d 0-26 09:19:00 Julian deficit: pt 09:15: [id number] 00 Nutrition nutritional Nutrition Resolve 2017-042018-03-03 Laura restriction d 09:19:00 Julian s 09:15: [id number] 00 Elimination catheter Eliminatio Resolve 2017-042018-03-20 Laura present n d 0 12:30:00 Jean-Claude 09:15: [id number] 00 Elimination constipatio Eliminatio Resolve 2017-042018-03-20 Laura n n d 0 12:30:00 Julian 09:15: [id number] 00 Infection s/s of Infection Resolve 2017-042018-03-22 Laura infection d 0 09:55:00 Jean-Claude 09:30: [id number] 00 Endo/Edgard insulin Endo/Edgard Resolve 2017-042018-03-20 Laura admn d 04-22 12:30:00 Jean-Claude dependence 09:50: [id number] 00 Respiratory dyspnea Respirator Resolve 2017-042018-03-08 Laura present y d 04-24 09:20:00 Jean-Claude 10:07: [id number] 00 Safety cannot be Safety Resolve 2017-042018-03-22 Laura left alone d 04-24 09:55:00 Jean-Claude 10:07: [id number] 00 Cardio edema Cardiovasc Resolve 2017-042018-03-03 Laura ular d 04-26 09:19:00 Jean-Claude 09:51: [id number] 00 Respiratory Incentive Respirator Resolve 2017-042018-03-03 Laura Spirometer y d 04-26 09:19:00 Jean-Claude /Acapella 09:51: [id number] Device 00 treatments in home Endo/Edgard knowledge/s Endo/Edgard Resolve 2017-042018-03-20 Laura kill d 05-08 12:30:00 Julian deficit: pt 09:20: [id number] 00 Nutrition knowledge/s Nutrition Resolve 2017-042018-04-19 Laura kill d 05-08 09:45:00 Jean-Claude deficit: pt 09:20: [id number] 00 Nutrition nutritional Nutrition Resolve 2017-042018-04-19 Laura restriction d 05-08 09:45:00 Jean-Claude s 09:20: [id number] 00 Endo/Edgard diabetic Endo/Edgard Resolve 2017-042018-03-20 Laura foot care d 2- 12:30:00 Jean-Claude 09:20: [id number] 00 Pain frequent Pain Mgmt Unknown 2017-04 Laura pain 2- Julian 12:45: [id number] 00 Respiratory dyspnea Respirator Resolve 2017-042018-03-20 Laura present y d 2 12:30:00 Julian 12:45: [id number] 00 Integument pressure Integument Unknown 2017-04 Laura ulcer 2- Jean-Claude present 12:45: [id number] 00 Integument surgical Integument Resolve 2017-042018-03-24 Laura wound d 2 11:23:00 Jean-Claude present 12:45: [id number] 00 Endo/Edgard diabetic Endo/Edgard Resolve 2017-042018-03-24 Laura foot care d 05-23 11:23:00 Jean-Claude 09:55: [id number] 00 Elimination catheter Eliminatio Resolve 2017-042018-04-19 Laura present n d 05-23 09:45:00 Jean-Claude 09:55: [id number] 00 Safety risk for Safety Resolve 2017-042018-04-19 Laura hospitaliza d 2 09:45:00 Jean-Claude tion 11:23: [id number] 00 Safety can be left Safety Resolve 2017-042018-04-19 Laura alone for d 2- 09:45:00 Jean-Claude only short 11:23: [id number] periods 00 Musculoskel knowledge/s Musculoske Resolve 2017-042018-03-29 Laura etal kill letal d - 09:30:00 Jean-Claude deficit: cg 10:20: [id number] 00 Musculoskel requires Musculoske Resolve 2017-042018-04-12 Laura etal human letal d 2- 09:45:00 Jean-Claude assist to 10:20: [id number] leave home 00 Endo/Edgard diabetic Endo/Edgard Resolve 2017-042018-04-19 Laura foot care d 2- 09:45:00 Jean-Claude 09:30: [id number] 00 Elimination constipatio Eliminatio Resolve 2017-042018-04-12 Laura n n d 05-30 09:45:00 Julian 09:30: [id number] 00 Pain frequent Pain Mgmt Unknown 2017-04 Laura pain 06-06 Jean-Claude 09:45: [id number] 00 Endo/Edgard insulin Endo/Edgard Resolve 2017-042018-04-19 Laura admn d 06-06 09:45:00 Julian dependence 09:45: [id number] 00 Endo/Edgard anti-coagul Endo/Edgard Resolve 2017-042018-04-19 Laura ation d 06-06 09:45:00 Julian therapy 09:45: [id number] 00 Integument surgical Integument Resolve 2017-042018-04-05 Laura wound d 06-06 09:45:00 Julian present 09:45: [id number] 00 Integument skin Integument Resolve 2017-042018-04-05 Laura integrity d 06-06 09:45:00 Jean-Claude risk 09:45: [id number] 00 Integument pressure Integument Unknown 2017-04 Laura ulcer 06-06 Jean-Claude present 09:45: [id number] 00 Elimination UTI within Eliminatio Resolve 2017-042018-04-12 Laura past 14 n d 06-06 09:45:00 Jean-Claude days 09:45: [id number] 00 Activity ADL Activity Resolve 2017-042018-09-15 Laura assistance d 06-06 10:35:00 Jean-Claude required 09:45: [id number] 00 Safety fall risk Safety Resolve 2017-042018-04-19 Laura factor d 06-06 09:45:00 Jean-Claude present 09:45: [id number] 00 Medication potential Meds Resolve 2017-042018-04-19 Laura clinically d 06-06 09:45:00 Jean-Claude significant 09:45: [id number] medication 00 issue Medication oral med Meds Resolve 2017-042018-04-05 Shari assistance d 06-06 09:45:00 Regeczi required 09:45: [id number] 00 Medication injectable Meds Resolve 2017-042018-08-09 Shari med d 06-06 09:20:00 Regeczi assistance 09:45: [id number] required 00 Musculoskel transfer Musculoske Resolve 2017-042018-04-12 Shari etal assistance letal d 06-06 09:45:00 Regeczi required 09:45: [id number] 00 Medication oral med Meds Resolve 2017-042018-04-19 Laura assistance d 06-08 09:45:00 Jean-Claude required 10:00: [id number] 00 Medication injectable Meds Unknown 2017-04 Laura med 06-08 Julian assistance 10:00: [id number] required 00 Sensory impaired Sensory Resolve 2017-042018-04-19 Nima verbal d 06-08 09:45:00 Graves communicati 15:20: [id number] on 00 Sensory impaired Sensory Resolve 2017-042018-04-19 Nima hearing d 06-08 09:45:00 Graves 15:20: [id number] 00 Medication injectable Meds Unknown 2017-04 Nhung med Pérez assistance 14:56: [id number] required 00 Medication injectable Meds Unknown Nima med 04-13 Graves assistance 13:50: [id number] required 00 Elimination constipatio Eliminatio Resolve 2018-04-19 Laura n n d 04-14 09:45:00 Jean-Claude 09:28: [id number] 00 Medication injectable Meds Unknown Laura med 04-17 Julian assistance 10:00: [id number] required 00 Medication injectable Meds Resolve 2018-04-19 Laura med d 04-19 09:45:00 Julian assistance 09:45: [id number] required 00 Endo/Edgard anti-coagul Endo/Edgard Resolve 2018-04-26 Laura ation d 04-21 10:15:00 Jean-Claude therapy 09:45: [id number] 00 Nutrition knowledge/s Nutrition Resolve 2018-04-26 Laura kill d 04-21 10:15:00 Julian deficit: pt 09:45: [id number] 00 Nutrition nutritional Nutrition Resolve 2018-04-26 Laura restriction d 04-21 10:15:00 Jean-Claude s 09:45: [id number] 00 Elimination catheter Eliminatio Resolve 2018-04-26 Laura present n d 04-21 10:15:00 Jean-Claude 09:45: [id number] 00 Elimination constipatio Eliminatio Resolve 2018-04-26 Laura n n d 04-21 10:15:00 Jean-Claude 09:45: [id number] 00 Safety risk for Safety Resolve 2018-04-26 Laura hospitaliza d 1-11 10:15:00 Jean-Claude tion 09:45: [id number] 00 Safety can be left Safety Resolve 2018-04-26 Laura alone for d 1-11 10:15:00 Jean-Claude only short 09:45: [id number] periods 00 Sensory impaired Sensory Resolve 2018-04-26 Nima verbal d 1-11 10:15:00 Graves communicati 14:30: [id number] on 00 Sensory impaired Sensory Resolve 2018-04-26 Nima hearing d 1-11 10:15:00 Graves 14:30: [id number] 00 Sensory impaired Sensory Resolve 2018-04-28 Nima verbal d 1-17 10:20:00 Graves communicati 12:45: [id number] on 00 Sensory impaired Sensory Resolve 2018-04-28 Nima hearing d 1-17 10:20:00 Graves 12:45: [id number] 00 Endo/Edgard anti-coagul Endo/Edgard Resolve 2018-05-24 Laura ation d 1-18 12:30:00 Jean-Claude therapy 10:20: [id number] 00 Safety risk for Safety Active Laura hospitaliza - Julian tion 10:20: [id number] 00 Safety can be left Safety Resolve 2018-05-10 Laura alone for d 1- 13:45:00 Jean-Claude only short 10:10: [id number] Sensory impaired Sensory Resolve 2018-05-10 Jia hearing d 05-05 13:45:00 Hillebrand 13:30: t 00 [id number] Sensory impaired Sensory Resolve 2018-05-10 Jia verbal d 1 13:45:00 Hillebrand communicati 13:30: t on 00 [id number] Elimination catheter Eliminatio Resolve 2018-05-08 Wandy present n d 05-08 08:50:00 ,Kaylee 08:50: 00 Elimination constipatio Eliminatio Resolve 2018-06-28 Wandy n n d 05-08 09:45:00 ,Kaylee 08:50: 00 Safety cannot be Safety Resolve 2018-05-10 Laura left alone d 1- 13:45:00 Julian 08:50: [id number] 00 Elimination catheter Eliminatio Resolve 2018-05-12 Shari present n d 2- 09:30:00 Regeczi 09:30: [id number] 00 Safety can be left Safety Resolve 2018-05-17 Laura alone for d - 10:00:00 Jean-Claude only short 09:30: [id number] periods 00 Elimination urinary Eliminatio Resolve 2018-05-15 Laura incontinenc n d 05-15 08:45:00 Julian e 08:45: [id number] 00 Pain frequent Pain Mgmt Resolve 2018-05-17 Laura pain d 2-06 10:00:00 Julian 10:00: [id number] 00 Respiratory lung sounds Respirator Resolve 2018-05-22 Laura deficit y d 2-06 10:44:00 Jean-Claude 10:00: [id number] 00 Integument pressure Integument Unknown Laura ulcer 2-06 Jean-Claude present 10:00: [id number] 00 Integument skin Integument Resolve 2018-05-17 Laura integrity d 2-06 10:00:00 Julian risk 10:00: [id number] 00 Integument surgical Integument Resolve 2018-05-17 Laura wound d 2-06 10:00:00 Jean-Claude present 10:00: [id number] 00 Activity ADL Activity Unknown 2018- Laura assistance 2-06 Julian required 10:00: [id number] 00 Activity self-care Activity Resolve 2018-05-19 Laura deficit d 2-06 11:15:00 Jean-Claude 10:00: [id number] 00 Safety fall risk Safety Resolve 2018-05-19 Laura factor d 2-06 11:15:00 Julian present 10:00: [id number] 00 Elimination urinary Eliminatio Resolve 2018-05-24 Thornberry incontinenc n d 2- 12:30:00 Kaylee 11:15: 00 Safety can be left Safety Resolve 2018-05-24 Laura alone for d 2-08 12:30:00 Jean-Claude only short 11:15: [id number] periods 00 Safety fall risk Safety Resolve 2018-05-24 Sonia White factor d 2-12 12:30:00 present 09:48: 41 Endo/Edgard glucose Endo/Edgard Resolve 2018-05-24 Laura tolerance d 2-13 12:30:00 Julian problem 12:30: [id number] 00 Respiratory Incentive Respirator Resolve 2018-06-07 Laura Spirometer y d 2-15 12:00:00 Jean-Claude /Acapella 13:40: [id number] Device 00 treatments in home Endo/Edgard anti-coagul Endo/Edgard Resolve 2018-06-12 Laura ation d 2-15 09:30:00 Jean-Claude therapy 13:40: [id number] 00 Elimination urinary Eliminatio Resolve 2018-05-26 Laura incontinenc n d 2-15 13:40:00 Jean-Claude e 13:40: [id number] 00 Safety can be left Safety Resolve 2018-06-07 Laura alone for d 2-15 12:00:00 Jean-Claude only short 13:40: [id number] periods 00 Endo/Edgard glucose Endo/Edgard Resolve 2018-06-07 Cherrise tolerance d 2-22 12:00:00 Alcolu problem 10:15: [id number] 00 Endo/Edgard insulin Endo/Edgard Resolve 2018-06-12 Cherrise admn d 2-22 09:30:00 Alcolu dependence 10:15: [id number] 00 Endo/Edgard glucose Endo/Edgard Resolve 2018-06-12 Cherrise testing d 2- 09:30:00 Trixie dependence 10:15: [id number] 00 Safety fall risk Safety Resolve 2018-06-07 Cherrise factor d 2-22 12:00:00 Alcolu present 10:15: [id number] 00 Musculoskel transfer Musculoske Active Cherrise etal assistance letal 06-02 Trixie required 10:15: [id number] 00 Musculoskel requires Musculoske Active Cherrise etal human letal 2 Alcolu assist to 10:15: [id number] leave home 00 Elimination urinary Eliminatio Resolve 2018-06-07 Laura incontinenc n d 06-05 12:00:00 Jean-Claude e 12:30: [id number] 00 Activity self-care Activity Resolve 2018-08-14 Laura deficit d 06-05 12:10:00 Julian 12:30: [id number] 00 Elimination urinary Eliminatio Resolve 2018-06-12 Laura incontinenc n d 06-09 09:30:00 Jean-Claude e 09:13: [id number] 00 Safety can be left Safety Resolve 2018-06-12 Laura alone for d 06-09 09:30:00 Jean-Claude only short 09:13: [id number] periods 00 Respiratory Incentive Respirator Resolve 2018-06-14 Laura Spirometer y d 06-12 09:30:00 Jean-Claude /Acapemiguel 09:30: [id number] Device 00 treatments in home Endo/Edgard anti-coagul Endo/Edgard Resolve 2018-06-30 Laura ation d 06-14 09:19:00 Jean-Claude therapy 09:30: [id number] 00 Safety can be left Safety Resolve 2018-06-30 Laura alone for d 06-14 09:19:00 Jean-Claude alejo 09:30: [id number] periods 00 Elimination urinary Eliminatio Resolve 2018-06-19 Laura incontinenc n d 06-16 13:45:00 Jean-Claude e 09:45: [id number] 00 Elimination urinary Eliminatio Resolve 2018-06-28 Laura incontinenc n d 06-23 09:45:00 Jean-Claude e 13:15: [id number] 00 Elimination constipatio Eliminatio Resolve 2018-07-14 Laura n n d 06-30 09:20:00 Julian 09:19: [id number] 00 Endo/Edgard anti-coagul Endo/Edgard Resolve 2018-07-14 Laura ation d 07-03 09:20:00 Jean-Claude therapy 12:49: [id number] 00 Elimination urinary Eliminatio Resolve 2018-07-14 Laura incontinenc n d 07-03 09:20:00 Julian e 12:49: [id number] 00 Safety can be left Safety Resolve 2018-08-18 Laura alone for d 07-07 12:05:00 Jean-Claude only short 12:50: [id number] periods 00 Endo/Edgard glucose Endo/Edgard Resolve 2018-07-14 Shi testing d 07-10 09:20:00 Sorin, dependence 12:30: [id number] 00 Pain frequent Pain Mgmt Resolve 2018-07-14 Laura pain d 07-14 09:20:00 Jean-Claude 09:20: [id number] 00 Integument surgical Integument Resolve 2018-08-13 Laura wound d 07-14 12:50:00 Jean-Claude present 09:20: [id number] 00 Integument skin Integument Resolve 2018-08-13 Laura integrity d 07-14 12:50:00 Julian risk 09:20: [id number] 00 Safety fall risk Safety Resolve 2018-08-18 Laura factor d 07-14 12:05:00 Julian present 09:20: [id number] 00 Endo/Edgard anti-coagul Endo/Edgard Resolve 2018-08-14 Laura ation d 07-17 12:10:00 Jean-Claude therapy 13:00: [id number] 00 Elimination urinary Eliminatio Resolve 2018-07-21 Laura incontinenc n d 07-17 09:25:00 Jean-Claude e 13:00: [id number] 00 Activity ADL Activity Unknown Laura assistance 07-17 Julian required 13:00: [id number] 00 Elimination urinary Eliminatio Resolve 2018-08-14 Laura incontinenc n d 07-24 12:10:00 Julian e 09:27: [id number] 00 Pain frequent Pain Mgmt Resolve 2018 Laura pain d 08-07 09:20:00 Jean-Claude 12:45: [id number] 00 Cardio edema Cardiovasc Resolve 2018 Laura ular d 08-07 09:20:00 Jean-Claude 12:45: [id number] 00 Respiratory dyspnea Respirator Resolve 2018 Laura present y d 08-07 09:20:00 Jean-Claude 12:45: [id number] 00 Endo/Edgard diabetic Endo/Edgard Resolve 2018-08-14 Laura foot care d 08-07 12:10:00 Jean-Claude 12:45: [id number] 00 Nutrition knowledge/s Nutrition Active Laura kill 08-07 Jean-Claude deficit: pt 12:45: [id number] 00 Nutrition nutritional Nutrition Active Laura restriction 08-07 Jean-Claude s 12:45: [id number] 00 Neuro confusion Neuro/Emot Resolve 2018-08-14 Laura present ion d 08-07 12:10:00 Jean-Claude 12:45: [id number] 00 Medication oral med Meds Resolve 2018 Laura assistance d 08-07 09:20:00 Julian required 12:45: [id number] 00 Medication injectable Meds Resolve 2018 Jia med d 08-07 09:20:00 Jerardo assistance 12:45: [id number] required 00 Cardio edema Cardiovasc Resolve 2018-08-23 Laura ular d 08-13 11:15:00 Jean-Claude 12:50: [id number] 00 Respiratory dyspnea Respirator Resolve 2018-08-14 Laura present y d 08-13 12:10:00 Jean-Claude 12:50: [id number] 00 Endo/Edgard anti-coagul Endo/Edgard Resolve 2018-08-28 Laura ation d 08-16 12:00:00 Jean-Claude therapy 12:15: [id number] 00 Elimination urinary Eliminatio Resolve 2018-08-21 Laura incontinenc n d 08-16 12:45:00 Jean-Claude e 12:15: [id number] 00 Sensory impaired Sensory Resolve 2018-08-21 Krystyna verbal d 08-17 12:45:00 Traunstein communicati 14:30: [id number] on 00 Sensory impaired Sensory Resolve 2018-08-21 Krystyna hearing d 08-17 12:45:00 Tra[place]stein 14:30: [id number] 00 Social financial LILLIAN: Resolve 2019-02-16 Krystyna Services resource Social d 08-17 13:45:00 Traunstein deficit Services 14:30: [id number] 00 Social knowledge/s LILLIAN: Resolve 2018-08-17 Krystyna Services kill Social d 08-17 14:30:00 Traunstein deficit - Services 14:30: [id number] pt 00 Social knowledge/s LILLIAN: Resolve 2018-08-17 Krystyna Services kill Social d 08-17 14:30:00 Traunstein deficit - Services 14:30: [id number] cg 00 Safety can be left Safety Resolve 2018-09-07 Laura alone for d 5-15 10:00:00 Jean-Claude cruz short 11:15: [id number] periods 00 Social knowledge/s LILLIAN: Active Laura Services kill Social 08-23 Julian deficit - Services 11:15: [id number] pt 00 Elimination urinary Eliminatio Resolve 2018-09-07 Laura incontinenc n d 08-25 10:00:00 Jean-Claude e 11:45: [id number] 00 Sensory impaired Sensory Resolve 2018-09-07 Krystyna verbal d 09-01 [facility] 14[facility]: [id number] on 00 Sensory impaired Sensory Resolve 2018-09-07 Krystyna hearing d 09-01 10:00:00 [facility] 14:45: [id number] 00 Social knowledge/s LILLIAN: Active Krystyna Services kill Social 09-01 Traunstein deficit - Services 14:45: [id number] cg 00 Respiratory dyspnea Respirator Resolve 2018-09-15 Laura present y d 09-07 10:35:00 Jean-Claude 10:00: [id number] 00 Pain frequent Pain Mgmt Resolve 2018-09-11 Laura pain d 09-11 11:50:00 Jean-Claude 11:50: [id number] 00 Cardio hypertensio Cardiovasc Resolve 2018-09-11 Laura n ular d 09-11 11:50:00 Jean-Claude 11:50: [id number] 00 Integument pressure Integument Resolve 2018-09-15 Laura ulcer d 6 10:35:00 Jean-Claude present 11:50: [id number] 00 Integument surgical Integument Resolve 2018-09-15 Laura wound d 6-03 10:35:00 Julian present 11:50: [id number] 00 Integument skin Integument Resolve 2018-09-15 Laura integrity d 09-11 10:35:00 Julian risk 11:50: [id number] 00 Elimination urinary Eliminatio Resolve 2018-09-11 Laura incontinenc n d 09-11 11:50:00 Jean-Claude e 11:50: [id number] 00 Activity ADL Activity Unknown Laura assistance 09-11 Julian required 11:50: [id number] 00 Activity self-care Activity Resolve 2018-09-15 Laura deficit d 09-11 10:35:00 Jean-Claude 11:50: [id number] 00 Safety fall risk Safety Resolve 2018-09-15 Laura factor d 09-11 10:35:00 Julian present 11:50: [id number] 00 Safety can be left Safety Resolve 2018-09-15 Laura alone for d 09-11 10:35:00 Jean-Claude only short 11:50: [id number] periods 00 Endo/Edgard anti-coagul Endo/Edgard Resolve 2018-09-18 Laura ation d 09-15 12:20:00 Julian therapy 10:35: [id number] 00 Elimination urinary Eliminatio Resolve 2018-09-18 Laura incontinenc n d 09-15 12:20:00 Jean-Claude e 10:35: [id number] 00 Elimination constipatio Eliminatio Resolve 2018-09-18 Laura n n d 09-15 12:20:00 Jean-Claude 10:35: [id number] 00 Safety can be left Safety Resolve 2018-09-25 Laura alone for d 610 11:45:00 Jean-Claude only short 12:20: [id number] periods 00 Cardio hypertensio Cardiovasc Resolve 2018-09-21 Laura n ular d 09-21 11:45:00 Jean-Claude 11:45: [id number] 00 Endo/Edgard anti-coagul Endo/Edgard Resolve 2018-09-25 Laura ation d 09-21 11:45:00 Jean-Claude therapy 11:45: [id number] 00 Cardio hypertensio Cardiovasc Resolve 2018-10-02 Laura n ular d 6- 12:05:00 Jean-Claude 11:45: [id number] 00 Elimination urinary Eliminatio Resolve 2018-10-02 Laura incontinenc n d 6 12:05:00 Jean-Claude e 11:45: [id number] 00 Endo/Edgard anti-coagul Endo/Edgard Resolve 2018-10-02 Laura ation d 09-29 12:05:00 Julian therapy 09:45: [id number] 00 Safety can be left Safety Resolve 2018-10-02 Laura alone for d 09-29 12:05:00 Jean-Claude only short 09:45: [id number] 00 Endo/Edgard anti-coagul Endo/Edgard Resolve 2018-10-27 Laura ation d 10-04 11:30:00 Julian therapy 10:10: [id number] 00 Elimination urinary Eliminatio Resolve 2018-10-06 Laura incontinenc n d 10-04 09:10:00 Jean-Claude e 10:10: [id number] 00 Elimination constipatio Eliminatio Resolve 2018-10-06 Laura n n d 10-04 09:10:00 Jean-Claude 10:10: [id number] 00 Safety can be left Safety Resolve 2018-10-06 Laura alone for d 10-04 09:10:00 Jean-Claude only short 10:10: [id number] Sensory impaired Sensory Resolve 2018-10-23 Krystyna verbal d 10-05 11:56:00 Tra[place]stein communicati 15:00: [id number] on 00 Sensory impaired Sensory Resolve 2018-10-23 Krystyna hearing d 10-05 11:56:00 Tra[place] 15:00: [id number] 00 Elimination urinary Eliminatio Resolve 2018-10-27 Laura incontinenc n d 10-09 11:30:00 Jean-Claude butler 12:15: [id number] 00 Elimination bloody Eliminatio Resolve 2018-10-27 Laura urine n d 10-09 11:30:00 Jean-Claude 12:15: [id number] 00 Safety can be left Safety Resolve 2018-10-23 Laura alone for d 10-09 11:56:00 Jean-Claude only short 12:15: [id number] periods Elimination constipatio Eliminatio Resolve 2018-12-08 Laura n n d 10-16 14:00:00 Jean-Claude 12:35: [id number] 00 Cardio edema Cardiovasc Resolve 2018-10-27 Laura ular d 10-20 11:30:00 Jean-Claude 11:35: [id number] 00 Endo/Edgard knowledge/s Endo/Edgard Resolve 2018-10-27 Laura kill d 10-20 11:30:00 Jean-Claude deficit: pt 11:35: [id number] 00 Sensory impaired Sensory Unknown Jonatan verbal 7-15 Demarco, communicati 13:30: PT on [id number] Sensory impaired Sensory Unknown Jonatan hearing 15 Demarco, 13:30: PT [id number] Safety can be left Safety Resolve 2018-10-27 Laura alone for d 10-25 11:30:00 Jean-Claude cruz short 10:35: [id number] 00 Endo/Edgard glucose Endo/Edgard Resolve 2018-12-11 Cherrise tolerance d 10-30 09:30:00 Alcolu problem 11:55: [id number] 00 Endo/Edgard insulin Endo/Edgard Resolve 2018-12-13 Cherrise admn d 10-30 11:10:00 Trixie dependence 11:55: [id number] 00 Endo/Edgard glucose Endo/Edgard Resolve 2018-12-13 Cherrise testing d 10-30 11:10:00 Alcolu dependence 11:55: [id number] 00 Endo/Edgard knowledge/s Endo/Edgard Resolve 2018-12-08 Cherrise kill d 10-30 14:00:00 Trixie deficit: pt 11:55: [id number] 00 Elimination urinary Eliminatio Resolve 2018-12-08 Cherrise urgency n d 10-30 14:00:00 [place] 11:55: [id number] 00 Neuro depressive Neuro/Emot Resolve 2018-12-08 Cherrise feelings ion d 10-30 14:00:00 Trixie present 11:55: [id number] 00 Neuro impaired Neuro/Emot Resolve 2018-12-08 Cherrise decision-ma ion d 10-30 14:00:00 Alcolu pj 11:55: [id number] 00 Safety fall risk Safety Resolve 2018-12-06 Cherrise factor d 10-30 13:05:00 Al[place]u present 11:55: [id number] 00 Endo/Edgard anti-coagul Endo/Edgard Resolve 2018-12-13 Shi ation d 11-01 11:10:00 Sorin, therapy 12:30: [id number] 00 Respiratory Incentive Respirator Resolve 2018-11-29 Cherrise Spirometer y d 11-03 10:15:00 [place]u /Acapella 10:25: [id number] Device 00 treatments in home Elimination urinary Eliminatio Resolve 2018-12-08 Cherrise frequency n d 11-03 14:00:00 [place]u 10:25: [id number] 00 Respiratory lung sounds Respirator Resolve 2018-11-29 Cherrise deficit y d 11-06 10:15:00 Trixie 12:05: [id number] 00 Neuro memory Neuro/Emot Resolve 2018-12-08 Cherrise deficit ion d 11-08 14:00:00 Trixie needing 10:30: [id number] supervision 00 Pain frequent Pain Mgmt Resolve 2018-12-06 Shi pain d 11-10 13:05:00 Sorin, 11:00: [id number] 00 Integument pressure Integument Active Shi ulcer 11-10 Sorin, present 11:00: [id number] 00 Integument surgical Integument Active 2018- Shi wound 11-10 Sorin, present 11:00: [id number] 00 Integument skin Integument Active 2018- Shi integrity 11-10 Sorin, risk 11:00: [id number] 00 Elimination urinary Eliminatio Resolve 2018-12-08 Shi incontinenc n d 11-10 14:00:00 Sorin, e 11:00: [id number] 00 Activity self-care Activity Resolve 2018-11-29 Shi deficit d 11-10 10:15:00 Sorin, 11:00: [id number] 00 Activity ADL Activity Resolve 2018-12-08 Shi assistance d 11-10 14:00:00 Sorin, required 11:00: [id number] 00 Pain knowledge/s Pain Mgmt Resolve 2018-12-06 Krysytna kill d 11-16 13:05:00 Traunstein deficit: cg 15:15: [id number] 00 Respiratory knowledge/s Respirator Resolve 2018-11-29 Krystyna kill y d 11-16 10:15:00 Traunstein deficit: cg 15:15: [id number] 00 Integument knowledge/s Integument Active Krystyna kill 11-16 Traunstein deficit: cg 15:15: [id number] 00 Elimination knowledge/s Eliminatio Resolve 2018-12-08 Krystyna kill n d 11-16 14:00:00 Traunstein deficit: cg 15:15: [id number] 00 Safety knowledge/s Safety Resolve 2018-12-06 Krystyna kill d 11-16 13:05:00 Traunstein deficit: cg 15:15: [id number] 00 Cardio hypertensio Cardiovasc Resolve 2018-11-29 Lenny jarvis joseph d 11-17 10:15:00 [place]u 10:45: [id number] 00 Safety can be left Safety Resolve 2018-12-08 Shi alone for d 11-22 14:00:00 nancy Rowell short 11:00: [id number] periods 00 Sensory impaired Sensory Resolve 2018-12-08 Laura verbal d 11-24 14:00:00 Jean-Claude communicati 09:30: [id number] on 00 Sensory impaired Sensory Resolve 2018-12-08 Laura hearing d 11-24 14:00:00 Jean-Claude 09:30: [id number] 00 Respiratory knowledge/s Respirator Resolve 2018-12-08 Laura kill y d 12-01 14:00:00 Jean-Claude deficit: cg 09:30: [id number] 00 Sensory impaired Sensory Unknown Krystyna verbal 8 Traunstein communicati 15:00: [id number] on 00 Sensory impaired Sensory Unknown Krystyna hearing 12-08 Traunstein 15:00: [id number] 00 Respiratory knowledge/s Respirator Resolve 2018-12-13 Laura kill y d 12-11 11:10:00 Jean-Claude deficit: cg 09:30: [id number] 00 Endo/Edgard knowledge/s Endo/Edgard Resolve 2018-12-13 Laura kill d 12-11 11:10:00 Julian deficit: pt 09:30: [id number] 00 Elimination urinary Eliminatio Resolve 2018-12-15 Laura incontinenc n d 12-11 13:10:00 Jean-Claude e 09:30: [id number] 00 Safety can be left Safety Resolve 2018-12-15 Laura alone for d 12-11 13:10:00 Jean-Claude only short 09:30: [id number] 00 Endo/Edgard knowledge/s Endo/Edgard Resolve 2019-01-05 Laura kill d 12-15 11:00:00 Jean-Claude deficit: pt 13:10: [id number] 00 Endo/Edgard anti-coagul Endo/Edgard Resolve 2019-01-05 Laura ation d 12-15 11:00:00 Jean-Claude therapy 13:10: [id number] 00 Elimination urinary Eliminatio Resolve 2018-12-27 Laura incontinenc n d 12-18 09:20:00 Jean-Claude e 12:10: [id number] 00 Safety can be left Safety Resolve 2019-01-05 Laura alone for d 12-18 11:00:00 Jean-Claude only short 12:10: [id number] periods 00 Elimination constipatio Eliminatio Resolve 2019-01-05 Laura n n d 12-20 11:00:00 Jean-Claude 12:15: [id number] 00 Pain frequent Pain Mgmt Resolve 2019-01-15 Laura pain d 12-27 12:30:00 Jean-Claude 09:20: [id number] 00 Respiratory dyspnea Respirator Resolve 2019-01-05 Laura present y d 12-27 11:00:00 Jean-Claude 09:20: [id number] 00 Endo/Edgard diabetic Endo/Edgard Resolve 2019-01-05 Luara foot care d 9 11:00:00 Jean-Claude 09:20: [id number] 00 Elimination diarrhea Eliminatio Resolve 2019-01-05 Laura n d 18 11:00:00 Jean-Claude 09:20: [id number] 00 Neuro confusion Neuro/Emot Resolve 2019-01-05 Laura present ion d 12-27 11:00:00 Jean-Claude 09:20: [id number] 00 Neuro anxiety Neuro/Emot Resolve 2019-01-05 Laura present ion d 12-27 11:00:00 Jean-lCaude 09:20: [id number] 00 Activity ADL Activity Resolve 2019-01-05 Laura assistance d 12-27 11:00:00 Julian required 09:20: [id number] 00 Activity self-care Activity Resolve 2019-01-05 Laura deficit d 12-27 11:00:00 Jean-Claude 09:20: [id number] 00 Safety fall risk Safety Resolve 2019-01-05 Laura factor d 12-27 11:00:00 Jean-Claude present 09:20: [id number] 00 Medication potential Meds Resolve 2019-01-05 Laura clinically d 12-27 11:00:00 Julian significant 09:20: [id number] medication 00 issue Elimination urinary Eliminatio Resolve 2019-01-05 Laura incontinenc n d 12-29 11:00:00 Jean-Claude e 11:20: [id number] 00 Endo/Edgard knowledge/s Endo/Edgard Resolve 2019-01-10 Laura kill d 01-08 10:00:00 Jean-Claude deficit: pt 11:30: [id number] 00 Endo/Edgard anti-coagul Endo/Edgard Resolve 2019-01-10 Laura ation d 01-08 10:00:00 Jean-Claude therapy 11:30: [id number] 00 Elimination urinary Eliminatio Resolve 2019-01-15 Laura incontinenc n d 01-08 12:30:00 Julian e 11:30: [id number] 00 Safety can be left Safety Resolve 2019-02-16 Laura alone for d 9-30 12:00:00 Jean-Claude only short 11:30: [id number] periods 00 Respiratory dyspnea Respirator Resolve 2018-042019-01-26 Laura present y d 0-02 10:00:00 Jean-Claude 10:00: [id number] 00 Activity ADL Activity Resolve 2018-042019-01-12 Lauar assistance d 0-02 11:30:00 Julian required 10:00: [id number] 00 Activity self-care Activity Resolve 2018-042019-01-12 Laura deficit d 0-02 11:30:00 Julian 10:00: [id number] 00 Safety fall risk Safety Resolve 2018-042019-01-12 Laura factor d 0-02 11:30:00 Julian present 10:00: [id number] 00 Medication injectable Meds Resolve 2018-042019-01-17 Laura med d 0-02 09:45:00 Julian assistance 10:00: [id number] required 00 Endo/Edgard knowledge/s Endo/Edgard Resolve 2018-042019-01-15 Laura kill d 0-04 12:30:00 Jean-Claude deficit: pt 11:30: [id number] 00 Endo/Edgard anti-coagul Endo/Edgard Resolve 2018-042019-01-15 Laura ation d 0-04 12:30:00 Julian therapy 11:30: [id number] 00 Elimination constipatio Eliminatio Resolve 2018-042019-01-15 Laura n n d 0-04 12:30:00 Julian 11:30: [id number] 00 Sensory impaired Sensory Resolve 2018-042019-01-15 Krystyna verbal d 0-04 12:30:00 Kathy communicati 15:30: [id number] on 00 Sensory impaired Sensory Resolve 2018-042019-01-15 Krystyna hearing d 0-04 12:30:00 Traunstein 15:30: [id number] 00 Infection s/s of Infection Resolve 2018-042019-03-09 Laura infection d 0-07 11:00:00 Jean-Claude 12:30: [id number] 00 Sensory impaired Sensory Resolve 2018-042019-01-22 Jonatan verbal d 0-08 11:00:00 ambrosio Pal 13:00: PT on 00 [id number] Sensory impaired Sensory Resolve 2018-042019-01-22 Jonatan hearing d 0-08 11:00:00 Demarco, 13:00: PT 00 [id number] Endo/Edgard knowledge/s Endo/Edgard Resolve 2018-042019-02-07 Laura kill d 0-09 11:20:00 Jean-Claude deficit: pt 09:45: [id number] 00 Endo/Edgard anti-coagul Endo/Edgard Resolve 2018-042019-02-07 Laura ation d 0-09 11:20:00 Jean-Claude therapy 09:45: [id number] 00 Elimination urinary Eliminatio Resolve 2018-042019-02-02 Laura incontinenc n d 0-09 11:30:00 Jean-Claude e 09:45: [id number] 00 Elimination constipatio Eliminatio Resolve 2018-042019-02-02 Laura n n d 0-16 11:30:00 Julian 10:00: [id number] 00 Sensory impaired Sensory Resolve 2018-042019-01-31 Jonatan verbal d 0-17 11:10:00 Demarco, communicflorentino 15:00: PT on 00 [id number] Sensory impaired Sensory Resolve 2018-042019-01-31 Jonatan hearing d 0-17 11:10:00 Demarco, 15:00: PT 00 [id number] Pain frequent Pain Mgmt Resolve 2018-042019-02-16 Jonatan pain d 0-23 12:00:00 Demarco, 13:00: PT 00 [id number] Sensory impaired Sensory Unknown 2018-04 Jonatan verbal 0-23 Demarco, communicati 13:00: PT on 00 [id number] Sensory impaired Sensory Unknown 2018-04 Jonatan hearing 0-23 Demarco, 13:00: PT 00 [id number] Respiratory dyspnea Respirator Resolve 2018-042019-02-07 Laura present y d 0-25 11:20:00 Jean-Claude 11:30: [id number] 00 Elimination urinary Eliminatio Resolve 2018-042019-02-07 Laura incontinenc n d 0-28 11:20:00 Jean-Claude e 12:40: [id number] 00 Endo/Edgard knowledge/s Endo/Edgard Resolve 2018-042019-02-19 Laura kill d 1 12:40:00 Jean-Claude deficit: pt 12:30: [id number] 00 Endo/Edgard anti-coagul Endo/Edgard Resolve 2018-042019-02-19 Laura ation d 04-11 12:40:00 Jean-Claude therapy 12:30: [id number] 00 Elimination urinary Eliminatio Resolve 2018-042019-02-16 Laura incontinenc n d 04-11 12:00:00 Jean-Claude e 12:30: [id number] 00 Medication potential Meds Resolve 2018-042019-02-24 Laura clinically d 04-14 09:45:00 Julian significant 12:20: [id number] medication 00 issue Elimination constipatio Eliminatio Resolve 2018-042019-02-16 Laura n n d 04-16 12:00:00 Jean-Claude 11:20: [id number] 00 Elimination urinary Eliminatio Resolve 2018-042019-02-24 Laura incontinenc n d 04-21 09:45:00 Julian e 12:40: [id number] 00 Safety can be left Safety Resolve 2018-042019-02-24 Laura alone for d 04-21 09:45:00 Jean-Claude only short 12:40: [id number] periods 00 Endo/Edgard knowledge/s Endo/Edgard Resolve 2018-042019-02-24 Laura kill d 04-23 09:45:00 Jean-Claude deficit: pt 12:05: [id number] 00 Endo/Edgard anti-coagul Endo/Edgard Resolve 2018-042019-02-24 Laura ation d 04-23 09:45:00 Jean-Claude therapy 12:05: [id number] 00 Sensory impaired Sensory Resolve 2018-042019-02-26 Laura verbal d 04-26 13:20:00 Jean-Claude communicati 09:45: [id number] on 00 Sensory impaired Sensory Resolve 2018-042019-02-26 Laura hearing d 04-26 13:20:00 Jean-Claude 09:45: [id number] 00 Endo/Edgard knowledge/s Endo/Edgard Resolve 2018-042019-02-28 Laura kill d 04-28 11:15:00 Julian deficit: pt 13:20: [id number] 00 Endo/Edgard anti-coagul Endo/Edgard Resolve 2018-042019-02-28 Laura ation d 04-28 11:15:00 Jean-Claude therapy 13:20: [id number] 00 Elimination urinary Eliminatio Resolve 2018-042019-03-09 Laura incontinenc n d 04-28 11:00:00 Julian e 13:20: [id number] 00 Safety can be left Safety Resolve 2018-042019-03-05 Laura alone for d 04-28 12:45:00 Jean-Claude only short 13:20: [id number] periods 00 Endo/Edgard knowledge/s Endo/Edgard Resolve 2018-042019-03-09 Laura kill d 05-05 11:00:00 Julian deficit: pt 12:45: [id number] 00 Endo/Edgard anti-coagul Endo/Edgard Resolve 2018-042019-03-09 Laura ation d 05-05 11:00:00 Julian therapy 12:45: [id number] 00 Safety can be left Safety Resolve 2018-042019-03-09 Laura alone for d 05-07 11:00:00 Julian only short 11:25: [id number] Sensory impaired Sensory Resolve 2018-042019-03-12 Krystyna verbal d 05-09 11:15:00 Traunstein communicati 12:00: [id number] on 00 Sensory impaired Sensory Resolve 2018-042019-03-12 Krystyna hearing d 05-09 11:15:00 [place] 12:00: [id number] 00 Social financial LILLIAN: Active 2018-04 Krystyna Services resource Social 05-09 [facility] deficit Services 12:00: [id number] 00 Respiratory dyspnea Respirator Resolve 2018-042019-03-14 Laura present y d 05-13 10:30:00 Jean-Claude 11:15: [id number] 00 Endo/Edgard knowledge/s Endo/Edgard Active 2018-04 Laura kill 05-13 Julian deficit: pt 11:15: [id number] 00 Endo/Edgard anti-coagul Endo/Edgard Active 2018-04 Laura ation 05-13 Julian therapy 11:15: [id number] 00 Elimination urinary Eliminatio Resolve 2018-042019-03-14 Laura incontinenc n d 05-13 10:30:00 Julian e 11:15: [id number] 00 Activity ADL Activity Resolve 2018-042019-03-14 Laura assistance d 05-13 10:30:00 Julian required 11:15: [id number] 00 Activity self-care Activity Resolve 2018-042019-03-14 Laura deficit d 2- 10:30:00 Jean-Claude 11:15: [id number] 00 Safety fall risk Safety Resolve 2018-042019-03-14 Laura factor d 2- 10:30:00 Julian present 11:15: [id number] 00 Safety can be left Safety Resolve 2018-042019-03-14 Laura alone for d 2 10:30:00 Julian only short 11:15: [id number] periods 00 Medication injectable Meds Resolve 2018-042019-03-12 Laura med d 05-13 11:15:00 Julian assistance 11:15: [id number] required 00 Safety can be left Safety Resolve 2018-042019-03-19 Laura alone for d 05-17 11:40:00 Julian only short 09:15: [id number] periods 00 Elimination urinary Eliminatio Active 2018-04 Laura incontinenc n 05-20 Jean-Claude e 11:40: [id number] 00 Safety can be left Safety Active 2018-04 Laura alone for 2 Jean-Claude only short 11:30: [id number] periods 00 Allergies, Adverse Reactions, Alerts Allergy Name Allergy Status Severity Reaction(s) Onset Inactive Treating Comments Type Date Date Clinician bananas Unknown Active Unknown Reaction 2017-04 Roselyn Unknown 0-10 (Radha) Nithin [id number] keflex Unknown Active Unknown Reaction 2017-04 Roselyn Unknown 0-10 (Radha) Nithin [id number] nuts Unknown Active Unknown Reaction 2017-04 Roselyn Unknown 0-10 (Radha) Nithin [id number] Cipro Medication Active Unknown Reaction 2017-04 Osnia White Name ID Unknown 0-10 metronidazol Base Active Unknown Nausea and 2017-04 Roselyn e Ingredient vomiting 2-20 Guidelli [id number] Medications Ordered Filled Start Stop Current Ordering [...] nded nded release release loperamide loperamide No [place] 1-2 Unknown 2 mg tablet 2 mg [...] pen s pen testosteron testosteron 2017-04 No [place] Unknown Unknown e cypionate e cypionate 06-06 Latanya DAVID 200 mg/mL 200 mg/mL intramuscul intramuscul ar kit ar kit mometasone mometasone 2017-04 No [place] Unknown Unknown 0.1 % 0.1 % 06-06 Latanya DAVID topical topical cream cream finasteride finasteride 2017-04 No [place] Unknown Unknown 5 mg tablet 5 mg tablet 06-06 Latanya DAVID Levemir Levemir 2017-04- No [place] Unknown Unknown FlexTouch FlexTouch 06-06 Latanya DAVID [...] Observation Time Observation Value Comments SYSTOLIC mm[Hg] 2019-03-21 18:09:18 142 mm[Hg] mm[Hg] Method: Sit SYSTOLIC mm[Hg] 2018-01-23 18:02:16 122 mm[Hg] mm[Hg] Method: Stand DIASTOLIC mm[Hg] 2019-03-21 18:09:18 76 mm[Hg] mm[Hg] Method: Sit DIASTOLIC mm[Hg] 2018-01-23 18:02:16 60 mm[Hg] mm[Hg] Method: Stand PULSE 2019-03-21 18:09:18 64 /min /min RESP RATE 2019-03-21 18:09:18 16 /min /min TEMP 2019-03-21 18:09:18 97.9 [degF] Procedures This patient has no known procedures. Results This patient has no known results.
--- OUTSIDE RECORDS SUMMARY | 2019-04-11 14:39 | XMS REPORT | Continuity of Care Document ---
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 Onset: 10/23/2013 Disorder of eyelid Keaton Laguerre O.D. Onset: 10/23/2013 Regular astigmatism Keaton Laguerre O.D. Onset: 10/23/2013 Presbyopia Keaton Laguerre O.D. Onset: 10/23/2013 Type 2 diabetes mellitus Keaton Laguerre O.D. Onset: 10/23/2013 Presence of intraocular lens Timothy Aguero M.D. Onset: 05/19/2015 Social History Type Date Description Comments Sex Unknown ETOH Use Rarely consumes alcohol Tobacco Use Start: Unknown End: Unknown Patient is a former smoker quit 2004 Smoking Status Reviewed: 03/19/19 Patient is a former smoker quit 2004 Allergies, Adverse Reactions, Alerts Active Allergies Reaction Severity Comments Date Dust 10/23/2013 Seasonal 10/23/2013 Bananas 10/23/2013 Walnuts 10/23/2013 Cipro 03/23/2018 Inactive Allergies NKDA 03/23/2018 Medications Active Medications SIG Qnty Indications Ordering Date Provider Restasis 1 drops both 180units Timothy Aguero, 10/27/2015 0.05% Emulsion eyes twice a M.D. day Eliquis Unknown 5mg Tablets Levemir Flexpen Unknown 100Unit/ML Sopn Zostavax Unknown 94579Eui/0.65ML Solution Rec Voltaren Unknown 1% Gel Gemfibrozil Unknown 600mg Tablets Furosemide Unknown 40mg Tablets Temazepam Unknown 15mg Capsules Doxycycline Hyclate Unknown 100mg Capsules Clobetasol Propionate Unknown 0.05% Cream Lidocaine Unknown 5% Patches Glipizide Unknown 10mg Tablets Testosterone Enanthate Unknown 200mg/ml Oil Amiodarone HCL Unknown 200mg Tablets Potassium Chloride Lexus Unknown ER 20Meq Tablets ER Pantoprazole Sodium Unknown 40mg Tablets DR Pentoxifylline ER Unknown 400mg Tablets ER Uftuc-0-Hzsf Ethyl Unknown Esters 1gm Capsules Jantoven Unknown 2.5mg Tablets Tamsulosin HCL Unknown 0.4mg Capsules Combivent Respimat Unknown 20-100mcg/Act Aerosol Enoxaparin Sodium Unknown 100mg/ml Solution Finasteride Unknown 5mg Tablets Clopidogrel Bisulfate Unknown 75mg Tablets Nitrostat Unknown 0.4mg Tablets Sub Oxycodone HCL Unknown 10mg Tablets Levothyroxine Sodium Unknown 175mcg Tablets Lorazepam Unknown 1mg Tablets Lantus Solostar Unknown 100Unit/ML Sopn Immunizations Description No Information Available Vital Signs Date Vital Result Comment 03/23/2018 2:09pm Intraocular Pressure Right Eye 14 mmHg Intraocular Pressure Left Eye 14 mmHg 05/19/2015 2:24pm Intraocular Pressure Right Eye 15 mmHg Intraocular Pressure Left Eye 15 mmHg Results Description No Information Available Procedures Description No Information Available Medical Devices Description No Information Available Encounters Description No Information Available Assessments Description No Information Available Plan of Treatment No Information Available Functional Status Description No Information Available Mental Status Description No Information Available Referrals Description No Information Available
--- OUTSIDE RECORDS SUMMARY | 2019-04-11 14:39 | XMS REPORT ---
:1940 Author Organization [facility] Care Team Providers Name Role Phone Unavailable Unavailable Unavailable Problems Condition Condition Condition Status Onset Resolution Last Treating Comments Name Details Category Date Date Treatment Clinician Date Pain frequent Pain Mgmt Resolve 2017-042018-05-08 Roselyn pain d 0-10 08:50:00 (Radha) 11:15: Weller 00 [id number] Cardio edema Cardiovasc Resolve 2017-042018-02-20 Roselyn ular d 0-10 09:50:00 (Radha) 11:15: Weller 00 [id number] Respiratory dyspnea Respirator Resolve 2017-042018-02-15 Roselyn present y d 0-10 10:20:00 (Radha) 11:15: Weller 00 [id number] Endo/Edgard glucose Endo/Edgard Resolve 2017-042018-03-20 Roselyn testing d 0-10 12:30:00 (Radha) dependence 11:15: Weller 00 [id number] Endo/Edgard knowledge/s Endo/Edgard Resolve 2017-042018-03-06 Roselyn kill d 0-10 09:30:00 (Radha) deficit: pt 11:15: Weller 00 [id number] Endo/Edgard anti-coagul Endo/Edgard Resolve 2017-042018-03-20 Roselyn ation d 0-10 12:30:00 (Radha) therapy 11:15: Weller 00 [id number] Endo/Edgard diabetic Endo/Edgard Resolve 2017-042018-03-06 Roselyn foot care d 0-10 09:30:00 (Radha) 11:15: Weller 00 [id number] Sensory impaired Sensory Resolve 2017-042018-03-22 Roselyn hearing d 0-10 09:55:00 (Radha) 11:15: Weller 00 [id number] Integument pressure Integument Resolve 2017-042018-08-21 Roselyn ulcer d 0-10 12:45:00 (Radha) present 11:15: Weller [id number] Integument skin Integument Resolve 2017-042018-03-03 Roselyn integrity d 0-10 09:19:00 (Radha) risk 11:15: Weller [id number] Integument surgical Integument Resolve 2017-042018-03-03 Quality wound d 0-10 09:19:00 Realtime7 present 11:15: 00 Integument other wound Integument Resolve 2017-042018-03-03 Quality present d 0-10 09:19:00 Realtime7 11:15: 00 Elimination urinary Eliminatio Resolve 2017-042018-03-20 Roselyn incontinenc n d 0-10 12:30:00 (Radha) e 11:15: Weller [id number] Neuro confusion Neuro/Emot Resolve 2017-042018-03-22 Roselyn present ion d 0-10 09:55:00 (Radha) 11:15: Weller [id number] Neuro anxiety Neuro/Emot Resolve 2017-042018-03-22 Roselyn present ion d 0-10 09:55:00 (Radha) 11:15: Weller [id number] Neuro impaired Neuro/Emot Resolve 2017-042018-03-22 Roselyn decision-ma ion d 0-10 09:55:00 (Radha) pj 11:15: Weller [id number] Activity ADL Activity Resolve 2017-042018-03-22 Roselyn assistance d 0-10 09:55:00 (Radha) required 11:15: [id number] Safety structural Safety Resolve 2017-042018-03-22 Roselyn barriers d 0-10 09:55:00 (Radha) present 11:15: Weller [id number] Safety fall risk Safety Resolve 2017-042018-03-22 Roselyn factor d 0-10 09:55:00 (Radha) present 11:15: Weller [id number] Safety risk for Safety Resolve 2017-042018-03-22 Roselyn hospitaliza d 0-10 09:55:00 (Radha) tion 11:15: Weller [id number] Safety can be left Safety Resolve 2017-042018-03-22 Roselyn alone for d 0-10 09:55:00 (Radha) only short 11:15: Weller 00 [id number] Medication oral med Meds Resolve 2017-042018-02-06 Roselyn assistance d 0-10 09:15:00 (Radha) required 11:15: Weller [id number] Medication injectable Meds Resolve 2017-042018-02-06 Roselyn med d 0-10 09:15:00 (Radha) assistance 11:15: Weller required 00 [id number] Medication knowledge/s Meds Resolve 2017-042018-02-15 Roselyn kill d 0-10 10:20:00 (Radha) deficit: pt 11:15: Weller 00 [id number] Medication potential Meds Resolve 2017-042018-02-15 Roselyn clinically d 0-10 10:20:00 (Radha) significant 11:15: Weller medication 00 [id number] issue Musculoskel transfer Musculoske Resolve 2017-042018-03-20 Roselyn etal assistance letal d 0-10 12:30:00 (Radha) required 11:15: Weller [id number] Musculoskel requires Musculoske Resolve 2017-042018-03-20 Roselyn etal human letal d 0-10 12:30:00 (Radha) assist to 11:15: Weller leave home 00 [id number] Safety knowledge/s Safety Resolve 2017-042018-03-22 Laura kill d 0-12 09:55:00 Jean-Claude deficit: pt 10:00: [id number] 00 Respiratory knowledge/s Respirator Resolve 2017-042018-02-06 Laura kill y d 0-15 09:15:00 Jean-Claude deficit: cg 10:00: [id number] 00 Respiratory lung sounds Respirator Resolve 2017-042018-02-06 Laura deficit y d 0-15 09:15:00 [place] 10:00: [id number] 00 Sensory impaired Sensory Resolve 2017-042018-03-22 Quality verbal d 0-17 09:55:00 Realtime7 communicati 18:36: on 42 Musculoskel knowledge/s Musculoske Resolve 2017-042018-03-03 Laura etal kill letal d 0-24 09:19:00 Jean-Claude deficit: cg 09:45: [id number] 00 Nutrition knowledge/s Nutrition Resolve 2017-042018-03-03 Laura kill d 0-26 09:19:00 [place] deficit: pt 09:15: [id number] 00 Nutrition nutritional Nutrition Resolve 2017-042018-03-03 Laura restriction d 09:19:00 [place] s 09:15: [id number] 00 Elimination catheter Eliminatio Resolve 2017-042018-03-20 Laura present n d 0 12:30:00 [place] 09:15: [id number] 00 Elimination constipatio Eliminatio Resolve 2017-042018-03-20 Laura n n d 0 12:30:00 Jean-Claude 09:15: [id number] 00 Infection s/s of Infection Resolve 2017-042018-03-22 Laura infection d 0 09:55:00 Jean-Claude 09:30: [id number] 00 Endo/Edgard insulin Endo/Edgard Resolve 2017-042018-03-20 Laura admn d 04-22 12:30:00 Jean-Claude dependence 09:50: [id number] 00 Respiratory dyspnea Respirator Resolve 2017-042018-03-08 Laura present y d 04-24 09:20:00 Jean-Claude 10:07: [id number] 00 Safety cannot be Safety Resolve 2017-042018-03-22 Laura left alone d 04-24 09:55:00 Jean-Claude 10:07: [id number] 00 Cardio edema Cardiovasc Resolve 2017-042018-03-03 Laura ular d 04-26 09:19:00 Jean-Claude 09:51: [id number] 00 Respiratory Incentive Respirator Resolve 2017-042018-03-03 Laura Spirometer y d 04-26 09:19:00 [place] /Acapella 09:51: [id number] Device 00 treatments in home Endo/Edgard knowledge/s Endo/Edgard Resolve 2017-042018-03-20 Laura kill d 05-08 12:30:00 [place] deficit: pt 09:20: [id number] 00 Nutrition knowledge/s Nutrition Resolve 2017-042018-04-19 Laura kill d 05-08 09:45:00 Jean-Claude deficit: pt 09:20: [id number] 00 Nutrition nutritional Nutrition Resolve 2017-042018-04-19 Laura restriction d 05-08 09:45:00 Jean-Claude s 09:20: [id number] 00 Endo/Edgard diabetic Endo/Edgard Resolve 2017-042018-03-20 Laura foot care d 2- 12:30:00 Jean[place]Claude 09:20: [id number] 00 Pain frequent Pain Mgmt Unknown 2017-04 Laura pain 2- Jean-Claude 12:45: [id number] 00 Respiratory dyspnea Respirator Resolve 2017-042018-03-20 Laura present y d 2 12:30:00 [place] 12:45: [id number] 00 Integument pressure Integument Unknown 2017-04 Laura ulcer 2- [place] present 12:45: [id number] 00 Integument surgical Integument Resolve 2017-042018-03-24 Laura wound d 2 11:23:00 Jean-Claude present 12:45: [id number] 00 Endo/Edgard diabetic Endo/Edgard Resolve 2017-042018-03-24 Laura foot care d 05-23 11:23:00 Jean[place]Claude 09:55: [id number] 00 Elimination catheter Eliminatio Resolve 2017-042018-04-19 Laura present n d 05-23 09:45:00 Jean[place]Claude 09:55: [id number] 00 Safety risk for Safety Resolve 2017-042018-04-19 Laura hospitaliza d 2 09:45:00 Jean-Claude tion 11:23: [id number] 00 Safety can be left Safety Resolve 2017-042018-04-19 Laura alone for d 2- 09:45:00 Jean-Claude only short 11:23: [id number] periods 00 Musculoskel knowledge/s Musculoske Resolve 2017-042018-03-29 Laura etal kill letal d - 09:30:00 Jean-Claude deficit: cg 10:20: [id number] 00 Musculoskel requires Musculoske Resolve 2017-042018-04-12 Laura etal human letal d 2- 09:45:00 Jean-Claude assist to 10:20: [id number] leave home 00 Endo/Edgard diabetic Endo/Edgard Resolve 2017-042018-04-19 Laura foot care d 2- 09:45:00 Jean-Claude 09:30: [id number] 00 Elimination constipatio Eliminatio Resolve 2017-042018-04-12 Laura n n d 05-30 09:45:00 [place] 09:30: [id number] 00 Pain frequent Pain Mgmt Unknown 2017-04 Laura pain 06-06 [place] 09:45: [id number] 00 Endo/Edgard insulin Endo/Edgard Resolve 2017-042018-04-19 Laura admn d 06-06 09:45:00 Jean-Claude dependence 09:45: [id number] 00 Endo/Edgard anti-coagul Endo/Edgard Resolve 2017-042018-04-19 Laura ation d 06-06 09:45:00 [place] therapy 09:45: [id number] 00 Integument surgical Integument Resolve 2017-042018-04-05 Laura wound d 06-06 09:45:00 [place] present 09:45: [id number] 00 Integument skin Integument Resolve 2017-042018-04-05 Laura integrity d 06-06 09:45:00 Jean-Claude risk 09:45: [id number] 00 Integument pressure Integument Unknown 2017-04 Laura ulcer 06-06 Jean-Claude present 09:45: [id number] 00 Elimination UTI within Eliminatio Resolve 2017-042018-04-12 Laura past 14 n d 06-06 09:45:00 Jean-Claude days 09:45: [id number] 00 Activity ADL Activity Resolve 2017-042018-09-15 Laura assistance d 06-06 10:35:00 Jean-Claude required 09:45: [id number] 00 Safety fall risk Safety Resolve 2017-042018-04-19 Laura factor d 06-06 09:45:00 [place] present 09:45: [id number] 00 Medication potential Meds Resolve 2017-042018-04-19 Laura clinically d 06-06 09:45:00 [place] significant 09:45: [id number] medication 00 issue Medication oral med Meds Resolve 2017-042018-04-05 Shari assistance d 06-06 09:45:00 Regeczi required 09:45: [id number] 00 Medication injectable Meds Resolve 2017-042018-08-09 Shari med d 06-06 09:20:00 [place] assistance 09:45: [id number] required 00 Musculoskel transfer Musculoske Resolve 2017-042018-04-12 Shari etal assistance letal d 06-06 09:45:00 [place] required 09:45: [id number] 00 Medication oral med Meds Resolve 2017-042018-04-19 Laura assistance d 06-08 09:45:00 [place] required 10:00: [id number] 00 Medication injectable Meds Unknown 2017-04 Laura med 06-08 Jean-Claude assistance 10:00: [id number] required 00 Sensory impaired Sensory Resolve 2017-042018-04-19 Nima verbal d 06-08 09:45:00 [place] communicati 15:20: [id number] on 00 Sensory impaired Sensory Resolve 2017-042018-04-19 Nima hearing d 06-08 09:45:00 Graves 15:20: [id number] 00 Medication injectable Meds Unknown 2017-04 Nhung med Pérez assistance 14:56: [id number] required 00 Medication injectable Meds Unknown Nima med 04-13 Graves assistance 13:50: [id number] required 00 Elimination constipatio Eliminatio Resolve 2018-04-19 Laura n n d 04-14 09:45:00 Jean-Claude 09:28: [id number] 00 Medication injectable Meds Unknown Laura med 04-17 Jean-Claude assistance 10:00: [id number] required 00 Medication injectable Meds Resolve 2018-04-19 Laura med d 04-19 09:45:00 Jean-Claude assistance 09:45: [id number] required 00 Endo/Edgard anti-coagul Endo/Edgard Resolve 2018-04-26 Laura ation d 04-21 10:15:00 Jean-Claude therapy 09:45: [id number] 00 Nutrition knowledge/s Nutrition Resolve 2018-04-26 Laura kill d 04-21 10:15:00 [place] deficit: pt 09:45: [id number] 00 Nutrition nutritional Nutrition Resolve 2018-04-26 Laura restriction d 04-21 10:15:00 Jean-Claude s 09:45: [id number] 00 Elimination catheter Eliminatio Resolve 2018-04-26 Laura present n d 04-21 10:15:00 Jean-Claude 09:45: [id number] 00 Elimination constipatio Eliminatio Resolve 2018-04-26 Laura n n d 04-21 10:15:00 Jean-Claude 09:45: [id number] 00 Safety risk for Safety Resolve 2018-04-26 Laura hospitaliza d 1-11 10:15:00 [place] tion 09:45: [id number] 00 Safety can be left Safety Resolve 2018-04-26 Laura alone for d 1-11 10:15:00 [place] only short 09:45: [id number] periods 00 Sensory impaired Sensory Resolve 2018-04-26 Nima verbal d 1-11 10:15:00 [place] communicati 14:30: [id number] on 00 Sensory impaired Sensory Resolve 2018-04-26 Nima hearing d 1-11 10:15:00 [place] 14:30: [id number] 00 Sensory impaired Sensory Resolve 2018-04-28 Nima verbal d 1-17 10:20:00 [place] communicati 12:45: [id number] on 00 Sensory impaired Sensory Resolve 2018-04-28 Nima hearing d 1-17 10:20:00 [place] 12:45: [id number] 00 Endo/Edgard anti-coagul Endo/Edgard Resolve 2018-05-24 Laura ation d 1-18 12:30:00 [place] therapy 10:20: [id number] 00 Safety risk for Safety Active Laura hospitaliza - [place] tion 10:20: [id number] 00 Safety can be left Safety Resolve 2018-05-10 Laura alone for d 1- 13:45:00 Jean-Claude only short 10:10: [id number] Sensory impaired Sensory Resolve 2018-05-10 Jia hearing d 05-05 13:45:00 [place] 13:30: t 00 [id number] Sensory impaired Sensory Resolve 2018-05-10 Jia verbal d 1 13:45:00 [place]illebrand communicati 13:30: t on 00 [id number] Elimination catheter Eliminatio Resolve 2018-05-08 Wandy present n d 05-08 08:50:00 ,Kaylee 08:50: 00 Elimination constipatio Eliminatio Resolve 2018-06-28 Wandy n n d 05-08 09:45:00 ,Kaylee 08:50: 00 Safety cannot be Safety Resolve 2018-05-10 Laura left alone d 1- 13:45:00 [place] 08:50: [id number] 00 Elimination catheter Eliminatio Resolve 2018-05-12 Shari present n d 2- 09:30:00 Regeczi 09:30: [id number] 00 Safety can be left Safety Resolve 2018-05-17 Laura alone for d - 10:00:00 Jean-Claude only short 09:30: [id number] periods 00 Elimination urinary Eliminatio Resolve 2018-05-15 Laura incontinenc n d 05-15 08:45:00 Jean-Claude e 08:45: [id number] 00 Pain frequent Pain Mgmt Resolve 2018-05-17 Laura pain d 2-06 10:00:00 [place] 10:00: [id number] 00 Respiratory lung sounds Respirator Resolve 2018-05-22 Laura deficit y d 2-06 10:44:00 Jean-Claude 10:00: [id number] 00 Integument pressure Integument Unknown Laura ulcer 2-06 [place] present 10:00: [id number] 00 Integument skin Integument Resolve 2018-05-17 Laura integrity d 2-06 10:00:00 Jean-Claude risk 10:00: [id number] 00 Integument surgical Integument Resolve 2018-05-17 Laura wound d 2-06 10:00:00 Jean-Claude present 10:00: [id number] 00 Activity ADL Activity Unknown 2018- Laura assistance 2-06 [place] required 10:00: [id number] 00 Activity self-care Activity Resolve 2018-05-19 Laura deficit d 2-06 11:15:00 [place] 10:00: [id number] 00 Safety fall risk Safety Resolve 2018-05-19 Laura factor d 2-06 11:15:00 [place] present 10:00: [id number] 00 Elimination urinary Eliminatio Resolve 2018-05-24 [place] incontinenc n d 2- 12:30:00 Kaylee 11:15: 00 Safety can be left Safety Resolve 2018-05-24 Laura alone for d 2-08 12:30:00 Jean-Claude only short 11:15: [id number] periods 00 Safety fall risk Safety Resolve 2018-05-24 Sonia White factor d 2-12 12:30:00 present 09:48: 41 Endo/Edgard glucose Endo/Edgard Resolve 2018-05-24 Laura tolerance d 2-13 12:30:00 Jean-Claude problem 12:30: [id number] 00 Respiratory Incentive Respirator Resolve 2018-06-07 Laura Spirometer y d 2-15 12:00:00 [place] /[place]capella 13:40: [id number] Device 00 treatments in home Endo/Edgard anti-coagul Endo/Edgard Resolve 2018-06-12 Laura ation d 2-15 09:30:00 [place] therapy 13:40: [id number] 00 Elimination urinary Eliminatio Resolve 2018-05-26 Laura incontinenc n d 2-15 13:40:00 Jean-Claude e 13:40: [id number] 00 Safety can be left Safety Resolve 2018-06-07 Laura alone for d 2-15 12:00:00 Jean-Claude only short 13:40: [id number] periods 00 Endo/Edgard glucose Endo/Edgard Resolve 2018-06-07 Cherrise tolerance d 2-22 12:00:00 Trixie problem 10:15: [id number] 00 Endo/Edgard insulin Endo/Edgard Resolve 2018-06-12 Cherrise admn d 2-22 09:30:00 [place] dependence 10:15: [id number] 00 Endo/Edgard glucose Endo/Edgard Resolve 2018-06-12 Cherrise testing d 2- 09:30:00 [place] dependence 10:15: [id number] 00 Safety fall risk Safety Resolve 2018-06-07 Cherrise factor d 2-22 12:00:00 [place] present 10:15: [id number] 00 Musculoskel transfer Musculoske Active Cherrise etal assistance letal 06-02 [place] required 10:15: [id number] 00 Musculoskel requires Musculoske Active Cherrise etal human letal 2 [place] assist to 10:15: [id number] leave home 00 Elimination urinary Eliminatio Resolve 2018-06-07 Laura incontinenc n d 06-05 12:00:00 Jean-Claude e 12:30: [id number] 00 Activity self-care Activity Resolve 2018-08-14 Laura deficit d 06-05 12:10:00 Jean-Claude 12:30: [id number] 00 Elimination urinary Eliminatio Resolve 2018-06-12 Laura incontinenc n d 06-09 09:30:00 Jean-Claude e 09:13: [id number] 00 Safety can be left Safety Resolve 2018-06-12 Laura alone for d 06-09 09:30:00 Jean-Claude only short 09:13: [id number] periods 00 Respiratory Incentive Respirator Resolve 2018-06-14 Laura Spirometer y d 06-12 09:30:00 eJan-Claude /Acapemiguel 09:30: [id number] Device 00 treatments in home Endo/Edgard anti-coagul Endo/Edgard Resolve 2018-06-30 Laura ation d 06-14 09:19:00 [place] therapy 09:30: [id number] 00 Safety can be left Safety Resolve 2018-06-30 Laura alone for d 06-14 09:19:00 Jean-Claude alejo 09:30: [id number] periods 00 Elimination urinary Eliminatio Resolve 2018-06-19 Laura incontinenc n d 06-16 13:45:00 Jean-Claude e 09:45: [id number] 00 Elimination urinary Eliminatio Resolve 2018-06-28 Laura incontinenc n d 06-23 09:45:00 Jean[place]Cla[place] e 13:15: [id number] 00 Elimination constipatio Eliminatio Resolve 2018-07-14 Laura n n d 06-30 09:20:00 Jean-Cla[place] 09:19: [id number] 00 Endo/Edgard anti-coagul Endo/Edgard Resolve 2018-07-14 Laura ation d 07-03 09:20:00 Jean-Claude therapy 12:49: [id number] 00 Elimination urinary Eliminatio Resolve 2018-07-14 Laura incontinenc n d 07-03 09:20:00 Jean-Claude e 12:49: [id number] 00 Safety can be left Safety Resolve 2018-08-18 Laura alone for d 07-07 12:05:00 Jean-Claude only short 12:50: [id number] periods 00 Endo/Edgard glucose Endo/Edgard Resolve 2018-07-14 Shi testing d 07-10 09:20:00 Sorin, dependence 12:30: [id number] 00 Pain frequent Pain Mgmt Resolve 2018-07-14 Laura pain d 07-14 09:20:00 [place] 09:20: [id number] 00 Integument surgical Integument Resolve 2018-08-13 Laura wound d 07-14 12:50:00 [place] present 09:20: [id number] 00 Integument skin Integument Resolve 2018-08-13 Laura integrity d 07-14 12:50:00 Jean-Claude risk 09:20: [id number] 00 Safety fall risk Safety Resolve 2018-08-18 Laura factor d 07-14 12:05:00 [place] present 09:20: [id number] 00 Endo/Edgard anti-coagul Endo/Edgard Resolve 2018-08-14 Laura ation d 07-17 12:10:00 Jean-Claude therapy 13:00: [id number] 00 Elimination urinary Eliminatio Resolve 2018-07-21 Laura incontinenc n d 07-17 09:25:00 Jean-Claude e 13:00: [id number] 00 Activity ADL Activity Unknown Laura assistance 07-17 Jean-Claude required 13:00: [id number] 00 Elimination urinary Eliminatio Resolve 2018-08-14 Laura incontinenc n d 07-24 12:10:00 [place] e 09:27: [id number] 00 Pain frequent Pain Mgmt Resolve 2018 Laura pain d 08-07 09:20:00 Jean-Claude 12:45: [id number] 00 Cardio edema Cardiovasc Resolve 2018 Laura ular d 08-07 09:20:00 Jean-Claude 12:45: [id number] 00 Respiratory dyspnea Respirator Resolve 2018 Laura present y d 08-07 09:20:00 Jean-Claude 12:45: [id number] 00 Endo/Edgard diabetic Endo/Edgard Resolve 2018-08-14 Laura foot care d 08-07 12:10:00 Jean-Claude 12:45: [id number] 00 Nutrition knowledge/s Nutrition Active Laura kill 08-07 Jean-Claude deficit: pt 12:45: [id number] 00 Nutrition nutritional Nutrition Active Laura restriction 08-07 Jean-Claude s 12:45: [id number] 00 Neuro confusion Neuro/Emot Resolve 2018-08-14 Laura present ion d 08-07 12:10:00 Jean-Claude 12:45: [id number] 00 Medication oral med Meds Resolve 2018 Laura assistance d 08-07 09:20:00 [place] required 12:45: [id number] 00 Medication injectable Meds Resolve 2018 Jia med d 08-07 09:20:00 Jerardo assistance 12:45: [id number] required 00 Cardio edema Cardiovasc Resolve 2018-08-23 Laura ular d 08-13 11:15:00 Jean-Claude 12:50: [id number] 00 Respiratory dyspnea Respirator Resolve 2018-08-14 Laura present y d 08-13 12:10:00 Jean-Claude 12:50: [id number] 00 Endo/Edgard anti-coagul Endo/Edgard Resolve 2018-08-28 Laura ation d 08-16 12:00:00 Jean-Claude therapy 12:15: [id number] 00 Elimination urinary Eliminatio Resolve 2018-08-21 Laura incontinenc n d 08-16 12:45:00 Jean-Claude e 12:15: [id number] 00 Sensory impaired Sensory Resolve 2018-08-21 Krystyna verbal d 08-17 12:45:00 [place] communicati 14:30: [id number] on 00 Sensory impaired Sensory Resolve 2018-08-21 Krystyna hearing d 08-17 12:45:00 [place] 14:30: [id number] 00 Social financial LILLIAN: Resolve 2019-02-16 Krystyna Services resource Social d 08-17 13:45:00 [place] deficit Services 14:30: [id number] 00 Social knowledge/s LILLIAN: Resolve 2018-08-17 Krystyna Services kill Social d 08-17 14:30:00 [place] deficit - Services 14:30: [id number] pt 00 Social knowledge/s LILLIAN: Resolve 2018-08-17 Krystyna Services kill Social d 08-17 14:30:00 [place] deficit - Services 14:30: [id number] cg 00 Safety can be left Safety Resolve 2018-09-07 Laura alone for d 5-15 10:00:00 Jean-Claude cruz short 11:15: [id number] periods 00 Social knowledge/s LILLIAN: Active Laura Services kill Social 08-23 Jean-Claude deficit - Services 11:15: [id number] pt 00 Elimination urinary Eliminatio Resolve 2018-09-07 Laura incontinenc n d 08-25 10:00:00 Jean-Claude e 11:45: [id number] 00 Sensory impaired Sensory Resolve 2018-09-07 Krystyna verbal d 09-01 10:00:00 Tr[place] communicati 14:45: [id number] on 00 Sensory impaired Sensory Resolve 2018-09-07 Krystyna hearing d 09-01 10:00:00 [facility] 14:45: [id number] 00 Social knowledge/s LILLIAN: Active Krystyna Services kill Social 09-01 [place] deficit - Services 14:45: [id number] cg 00 Respiratory dyspnea Respirator Resolve 2018-09-15 Laura present y d 09-07 10:35:00 Jean-Claude 10:00: [id number] 00 Pain frequent Pain Mgmt Resolve 2018-09-11 Laura pain d 09-11 11:50:00 Jean-Claude 11:50: [id number] 00 Cardio hypertensio Cardiovasc Resolve 2018-09-11 Laura n ular d 09-11 11:50:00 Jean-Claude 11:50: [id number] 00 Integument pressure Integument Resolve 2018-09-15 Laura ulcer d 6 10:35:00 Jean-Claude present 11:50: [id number] 00 Integument surgical Integument Resolve 2018-09-15 Laura wound d 6-03 10:35:00 Jean-Claude present 11:50: [id number] 00 Integument skin Integument Resolve 2018-09-15 Laura integrity d 09-11 10:35:00 Jean-Claude risk 11:50: [id number] 00 Elimination urinary Eliminatio Resolve 2018-09-11 Laura incontinenc n d 09-11 11:50:00 [place] e 11:50: [id number] 00 Activity ADL Activity Unknown Laura assistance 09-11 Jean-Claude required 11:50: [id number] 00 Activity self-care Activity Resolve 2018-09-15 Laura deficit d 09-11 10:35:00 Jean-Claude 11:50: [id number] 00 Safety fall risk Safety Resolve 2018-09-15 Laura factor d 09-11 10:35:00 Jean-Claude present 11:50: [id number] 00 Safety can be left Safety Resolve 2018-09-15 Laura alone for d 09-11 10:35:00 Jean-Claude only short 11:50: [id number] periods 00 Endo/Edgard anti-coagul Endo/Edgard Resolve 2018-09-18 Laura ation d 09-15 12:20:00 [place] therapy 10:35: [id number] 00 Elimination urinary Eliminatio Resolve 2018-09-18 Laura incontinenc n d 09-15 12:20:00 Jean-Claude e 10:35: [id number] 00 Elimination constipatio Eliminatio Resolve 2018-09-18 Laura n n d 09-15 12:20:00 Jean-Claude 10:35: [id number] 00 Safety can be left Safety Resolve 2018-09-25 Laura alone for d 610 11:45:00 Jean-Claude only short 12:20: [id number] periods 00 Cardio hypertensio Cardiovasc Resolve 2018-09-21 Laura n ular d 09-21 11:45:00 Jean-Claude 11:45: [id number] 00 Endo/Edgard anti-coagul Endo/Edgard Resolve 2018-09-25 Laura ation d 09-21 11:45:00 [place] therapy 11:45: [id number] 00 Cardio hypertensio Cardiovasc Resolve 2018-10-02 Laura n ular d 6- 12:05:00 Jean-Claude 11:45: [id number] 00 Elimination urinary Eliminatio Resolve 2018-10-02 Laura incontinenc n d 6 12:05:00 Jean-Claude e 11:45: [id number] 00 Endo/Edgard anti-coagul Endo/Edgard Resolve 2018-10-02 Laura ation d 09-29 12:05:00 Jean-Claude therapy 09:45: [id number] 00 Safety can be left Safety Resolve 2018-10-02 Laura alone for d 09-29 12:05:00 Jean-Cla[place] only short 09:45: [id number] 00 Endo/Edgard anti-coagul Endo/Edgard Resolve 2018-10-27 Laura ation d 10-04 11:30:00 Jean-Claude therapy 10:10: [id number] 00 Elimination urinary Eliminatio Resolve 2018-10-06 Laura incontinenc n d 10-04 09:10:00 Jean-Claude e 10:10: [id number] 00 Elimination constipatio Eliminatio Resolve 2018-10-06 Laura n n d 10-04 09:10:00 Jean-Claude 10:10: [id number] 00 Safety can be left Safety Resolve 2018-10-06 Laura alone for d 10-04 09:10:00 Jean-Cla[place] only short 10:10: [id number] Sensory impaired Sensory Resolve 2018-10-23 Krystyna verbal d 10-05 11:56:00 [place] communicati 15:00: [id number] on 00 Sensory impaired Sensory Resolve 2018-10-23 Krystyna hearing d 10-05 11:56:00 [place] 15:00: [id number] 00 Elimination urinary Eliminatio Resolve 2018-10-27 Laura incontinenc n d 10-09 11:30:00 Jean-Claude butler 12:15: [id number] 00 Elimination bloody Eliminatio Resolve 2018-10-27 Laura urine n d 10-09 11:30:00 Jean-Claude 12:15: [id number] 00 Safety can be left Safety Resolve 2018-10-23 Laura alone for d 10-09 11:56:00 Jean-Claude only short 12:15: [id number] periods Elimination constipatio Eliminatio Resolve 2018-12-08 Laura n n d 10-16 14:00:00 Jean-Claude 12:35: [id number] 00 Cardio edema Cardiovasc Resolve 2018-10-27 Laura ular d 10-20 11:30:00 Jean-Claude 11:35: [id number] 00 Endo/Edgard knowledge/s Endo/Edgard Resolve 2018-10-27 Laura kill d 10-20 11:30:00 Jean[place]Claude deficit: pt 11:35: [id number] 00 Sensory impaired Sensory Unknown Jonatan verbal 7-15 Demarco, communicati 13:30: PT on [id number] Sensory impaired Sensory Unknown Jonatan hearing 15 Demarco, 13:30: PT [id number] Safety can be left Safety Resolve 2018-10-27 Laura alone for d 10-25 11:30:00 Jean-Claude cruz short 10:35: [id number] 00 Endo/Edgard glucose Endo/Edgard Resolve 2018-12-11 Cherrise tolerance d 10-30 09:30:00 Trixie problem 11:55: [id number] 00 Endo/Edgard insulin Endo/Edgard Resolve 2018-12-13 Cherrise admn d 10-30 11:10:00 Trixie dependence 11:55: [id number] 00 Endo/Edgard glucose Endo/Edgard Resolve 2018-12-13 Cherrise testing d 10-30 11:10:00 Trixie dependence 11:55: [id number] 00 Endo/Edgard knowledge/s Endo/Edgard Resolve 2018-12-08 Cherrise kill d 10-30 14:00:00 [place] deficit: pt 11:55: [id number] 00 Elimination urinary Eliminatio Resolve 2018-12-08 Cherrise urgency n d 10-30 14:00:00 Trixie 11:55: [id number] 00 Neuro depressive Neuro/Emot Resolve 2018-12-08 Cherrise feelings ion d 10-30 14:00:00 Trixie present 11:55: [id number] 00 Neuro impaired Neuro/Emot Resolve 2018-12-08 Cherrise decision-ma ion d 10-30 14:00:00 [place] pj 11:55: [id number] 00 Safety fall risk Safety Resolve 2018-12-06 Cherrise factor d 10-30 13:05:00 [place] present 11:55: [id number] 00 Endo/Edgard anti-coagul Endo/Edgard Resolve 2018-12-13 Shi ation d 11-01 11:10:00 Sorin, therapy 12:30: [id number] 00 Respiratory Incentive Respirator Resolve 2018-11-29 Cherrise Spirometer y d 11-03 10:15:00 Trixie /Acapella 10:25: [id number] Device 00 treatments in home Elimination urinary Eliminatio Resolve 2018-12-08 Cherrise frequency n d 11-03 14:00:00 [place] 10:25: [id number] 00 Respiratory lung sounds Respirator Resolve 2018-11-29 Cherrise deficit y d 11-06 10:15:00 Trixie 12:05: [id number] 00 Neuro memory Neuro/Emot Resolve 2018-12-08 Cherrise deficit ion d 11-08 14:00:00 [place] needing 10:30: [id number] supervision 00 Pain frequent Pain Mgmt Resolve 2018-12-06 Shi pain d 11-10 13:05:00 Sorin, 11:00: [id number] 00 Integument pressure Integument Active Shi ulcer 11-10 Sorin, present 11:00: [id number] 00 Integument surgical Integument Active 2018- Shi wound 11-10 Sorin, present 11:00: [id number] 00 Integument skin Integument Active 2018- Shi integrity 11-10 Sorin, risk 11:00: [id number] 00 Elimination urinary Eliminatio Resolve 2018-12-08 Shi incontinenc n d 11-10 14:00:00 Sorin, e 11:00: [id number] 00 Activity self-care Activity Resolve 2018-11-29 Shi deficit d 11-10 10:15:00 Sorin, 11:00: [id number] 00 Activity ADL Activity Resolve 2018-12-08 Shi assistance d 11-10 14:00:00 Sorin, required 11:00: [id number] 00 Pain knowledge/s Pain Mgmt Resolve 2018-12-06 Krystyna kill d 11-16 13:05:00 [place] deficit: cg 15:15: [id number] 00 Respiratory knowledge/s Respirator Resolve 2018-11-29 Krystyna kill y d 11-16 10:15:00 [place] deficit: cg 15:15: [id number] 00 Integument knowledge/s Integument Active Krystyna kill 11-16 [place] deficit: cg 15:15: [id number] 00 Elimination knowledge/s Eliminatio Resolve 2018-12-08 Krystyna kill n d 11-16 14:00:00 [place] deficit: cg 15:15: [id number] 00 Safety knowledge/s Safety Resolve 2018-12-06 Krystyna kill d 11-16 13:05:00 [place] deficit: cg 15:15: [id number] 00 Cardio hypertensio Cardiovasc Resolve 2018-11-29 Lenny jarvis joseph d 11-17 10:15:00 [place] 10:45: [id number] 00 Safety can be left Safety Resolve 2018-12-08 Shi alone for d 11-22 14:00:00 nancy Rowell short 11:00: [id number] periods 00 Sensory impaired Sensory Resolve 2018-12-08 Laura verbal d 11-24 14:00:00 Jean-Claude communicati 09:30: [id number] on 00 Sensory impaired Sensory Resolve 2018-12-08 Laura hearing d 11-24 14:00:00 Jean-Claude 09:30: [id number] 00 Respiratory knowledge/s Respirator Resolve 2018-12-08 Laura kill y d 12-01 14:00:00 [place] deficit: cg 09:30: [id number] 00 Sensory impaired Sensory Unknown Krystyna verbal 8 [place] communicati 15:00: [id number] on 00 Sensory impaired Sensory Unknown Krystyna hearing 12-08 [place] 15:00: [id number] 00 Respiratory knowledge/s Respirator Resolve 2018-12-13 Laura kill y d 12-11 11:10:00 Jean[place]Cla[place] deficit: cg 09:30: [id number] 00 Endo/Edgard knowledge/s Endo/Edgard Resolve 2018-12-13 Laura kill d 12-11 11:10:00 [place] deficit: pt 09:30: [id number] 00 Elimination urinary Eliminatio Resolve 2018-12-15 Laura incontinenc n d 12-11 13:10:00 Jean-Claude e 09:30: [id number] 00 Safety can be left Safety Resolve 2018-12-15 Laura alone for d 12-11 13:10:00 Jean-Claude only short 09:30: [id number] 00 Endo/Edgard knowledge/s Endo/Edgard Resolve 2019-01-05 Laura kill d 12-15 11:00:00 Jean[place]Cla[place] deficit: pt 13:10: [id number] 00 Endo/Edgard anti-coagul Endo/Edgard Resolve 2019-01-05 Laura ation d 12-15 11:00:00 Jean-Claude therapy 13:10: [id number] 00 Elimination urinary Eliminatio Resolve 2018-12-27 Laura incontinenc n d 12-18 09:20:00 Jean-Claude e 12:10: [id number] 00 Safety can be left Safety Resolve 2019-01-05 Laura alone for d 12-18 11:00:00 Jean-Claude only short 12:10: [id number] periods 00 Elimination constipatio Eliminatio Resolve 2019-01-05 Laura n n d 12-20 11:00:00 Jean-Claude 12:15: [id number] 00 Pain frequent Pain Mgmt Resolve 2019-01-15 Laura pain d 12-27 12:30:00 Jean-Claude 09:20: [id number] 00 Respiratory dyspnea Respirator Resolve 2019-01-05 Laura present y d 12-27 11:00:00 Jean-Claude 09:20: [id number] 00 Endo/Edgard diabetic Endo/Edgard Resolve 2019-01-05 Laura foot care d 9 11:00:00 Jean-Claude 09:20: [id number] 00 Elimination diarrhea Eliminatio Resolve 2019-01-05 Laura n d 18 11:00:00 Jean-Claude 09:20: [id number] 00 Neuro confusion Neuro/Emot Resolve 2019-01-05 Laura present ion d 12-27 11:00:00 Jean-Claude 09:20: [id number] 00 Neuro anxiety Neuro/Emot Resolve 2019-01-05 Laura present ion d 12-27 11:00:00 Jean-Claude 09:20: [id number] 00 Activity ADL Activity Resolve 2019-01-05 Laura assistance d 12-27 11:00:00 Jean-Claude required 09:20: [id number] 00 Activity self-care Activity Resolve 2019-01-05 Laura deficit d 12-27 11:00:00 Jean-Claude 09:20: [id number] 00 Safety fall risk Safety Resolve 2019-01-05 Laura factor d 12-27 11:00:00 Jean-Claude present 09:20: [id number] 00 Medication potential Meds Resolve 2019-01-05 Laura clinically d 12-27 11:00:00 [place] significant 09:20: [id number] medication 00 issue Elimination urinary Eliminatio Resolve 2019-01-05 Laura incontinenc n d 12-29 11:00:00 Jean-Claude e 11:20: [id number] 00 Endo/Edgard knowledge/s Endo/Edgard Resolve 2019-01-10 Laura kill d 01-08 10:00:00 [place] deficit: pt 11:30: [id number] 00 Endo/Edgard anti-coagul Endo/Edgard Resolve 2019-01-10 Laura ation d 01-08 10:00:00 [place] therapy 11:30: [id number] 00 Elimination urinary Eliminatio Resolve 2019-01-15 Laura incontinenc n d 01-08 12:30:00 [place] e 11:30: [id number] 00 Safety can be left Safety Resolve 2019-02-16 Laura alone for d 9-30 12:00:00 [place] only short 11:30: [id number] periods 00 Respiratory dyspnea Respirator Resolve 2018-042019-01-26 Laura present y d 0-02 10:00:00 Jean-Claude 10:00: [id number] 00 Activity ADL Activity Resolve 2018-042019-01-12 Laura assistance d 0-02 11:30:00 [place] required 10:00: [id number] 00 Activity self-care Activity Resolve 2018-042019-01-12 Laura deficit d 0-02 11:30:00 [place] 10:00: [id number] 00 Safety fall risk Safety Resolve 2018-042019-01-12 Laura factor d 0-02 11:30:00 Jean-Claude present 10:00: [id number] 00 Medication injectable Meds Resolve 2018-042019-01-17 Lauar med d 0-02 09:45:00 Jean-Claude assistance 10:00: [id number] required 00 Endo/Edgard knowledge/s Endo/Edgard Resolve 2018-042019-01-15 Laura kill d 0-04 12:30:00 Jean[place] deficit: pt 11:30: [id number] 00 Endo/Edgard anti-coagul Endo/Edgard Resolve 2018-042019-01-15 Laura ation d 0-04 12:30:00 [place] therapy 11:30: [id number] 00 Elimination constipatio Eliminatio Resolve 2018-042019-01-15 Laura n n d 0-04 12:30:00 Jean-Claude 11:30: [id number] 00 Sensory impaired Sensory Resolve 2018-042019-01-15 Krystyna verbal d 0-04 12:30:00 Kathy communicati 15:30: [id number] on 00 Sensory impaired Sensory Resolve 2018-042019-01-15 Krystyna hearing d 0-04 12:30:00 [place] 15:30: [id number] 00 Infection s/s of Infection Resolve 2018-042019-03-09 Laura infection d 0-07 11:00:00 Jean-Claude 12:30: [id number] 00 Sensory impaired Sensory Resolve 2018-042019-01-22 Jonatan verbal d 0-08 11:00:00 ambrosio Pal 13:00: PT on 00 [id number] Sensory impaired Sensory Resolve 2018-042019-01-22 Jonatan hearing d 0-08 11:00:00 Demarco, 13:00: PT 00 [id number] Endo/Edgard knowledge/s Endo/Edgard Resolve 2018-042019-02-07 Laura kill d 0-09 11:20:00 [place] deficit: pt 09:45: [id number] 00 Endo/Edgard anti-coagul Endo/Edgard Resolve 2018-042019-02-07 Laura ation d 0-09 11:20:00 Jean-Claude therapy 09:45: [id number] 00 Elimination urinary Eliminatio Resolve 2018-042019-02-02 Laura incontinenc n d 0-09 11:30:00 Jean-Claude e 09:45: [id number] 00 Elimination constipatio Eliminatio Resolve 2018-042019-02-02 Laura n n d 0-16 11:30:00 Jean-Claude 10:00: [id number] 00 Sensory impaired Sensory Resolve 2018-042019-01-31 Jonatan verbal d 0-17 11:10:00 Demarco, communicflorentino 15:00: PT on 00 [id number] Sensory impaired Sensory Resolve 2018-042019-01-31 Jonatan hearing d 0-17 11:10:00 Demarco, 15:00: PT 00 [id number] Pain frequent Pain Mgmt Resolve 2018-042019-02-16 Jonatan pain d 0-23 12:00:00 Demarco, 13:00: PT 00 [id number] Sensory impaired Sensory Unknown 2018-04 Jonatan verbal 0-23 Demarco, communicati 13:00: PT on 00 [id number] Sensory impaired Sensory Unknown 2018-04 Jonatan hearing 0-23 Demarco, 13:00: PT 00 [id number] Respiratory dyspnea Respirator Resolve 2018-042019-02-07 Laura present y d 0-25 11:20:00 [place] 11:30: [id number] 00 Elimination urinary Eliminatio Resolve 2018-042019-02-07 Laura incontinenc n d 0-28 11:20:00 [place] e 12:40: [id number] 00 Endo/Edgard knowledge/s Endo/Edgard Resolve 2018-042019-02-19 Laura kill d 1 12:40:00 [place] deficit: pt 12:30: [id number] 00 Endo/Edgard anti-coagul Endo/Edgard Resolve 2018-042019-02-19 Laura ation d 04-11 12:40:00 [place] therapy 12:30: [id number] 00 Elimination urinary Eliminatio Resolve 2018-042019-02-16 Laura incontinenc n d 04-11 12:00:00 [place] e 12:30: [id number] 00 Medication potential Meds Resolve 2018-042019-02-24 Laura clinically d 04-14 09:45:00 [place] significant 12:20: [id number] medication 00 issue Elimination constipatio Eliminatio Resolve 2018-042019-02-16 Laura n n d 04-16 12:00:00 Jean-Claude 11:20: [id number] 00 Elimination urinary Eliminatio Resolve 2018-042019-02-24 Laura incontinenc n d 04-21 09:45:00 Jean-Claude e 12:40: [id number] 00 Safety can be left Safety Resolve 2018-042019-02-24 Laura alone for d 04-21 09:45:00 Jean-Claude only short 12:40: [id number] periods 00 Endo/Edgard knowledge/s Endo/Edgard Resolve 2018-042019-02-24 Laura kill d 04-23 09:45:00 Jean[place]Cla[place] deficit: pt 12:05: [id number] 00 Endo/Edgard anti-coagul Endo/Edgard Resolve 2018-042019-02-24 Laura ation d 04-23 09:45:00 Jean-Claude therapy 12:05: [id number] 00 Sensory impaired Sensory Resolve 2018-042019-02-26 Laura verbal d 04-26 13:20:00 Jean-Claude communicati 09:45: [id number] on 00 Sensory impaired Sensory Resolve 2018-042019-02-26 Laura hearing d 04-26 13:20:00 [place] 09:45: [id number] 00 Endo/Edgard knowledge/s Endo/Edgard Resolve 2018-042019-02-28 Laura kill d 04-28 11:15:00 Jean[place]Cla[place] deficit: pt 13:20: [id number] 00 Endo/Edgard anti-coagul Endo/Edgard Resolve 2018-042019-02-28 Laura ation d 04-28 11:15:00 [place] therapy 13:20: [id number] 00 Elimination urinary Eliminatio Resolve 2018-042019-03-09 Laura incontinenc n d 04-28 11:00:00 [place] e 13:20: [id number] 00 Safety can be left Safety Resolve 2018-042019-03-05 Laura alone for d 04-28 12:45:00 [place] only short 13:20: [id number] periods 00 Endo/Edgard knowledge/s Endo/Edgard Resolve 2018-042019-03-09 Laura kill d 05-05 11:00:00 [place] deficit: pt 12:45: [id number] 00 Endo/Edgard anti-coagul Endo/Edgard Resolve 2018-042019-03-09 Laura ation d 05-05 11:00:00 [place] therapy 12:45: [id number] 00 Safety can be left Safety Resolve 2018-042019-03-09 Laura alone for d 05-07 11:00:00 [place] only short 11:25: [id number] Sensory impaired Sensory Resolve 2018-042019-03-12 Krystyna verbal d 05-09 11:15:00 [place] communicati 12:00: [id number] on 00 Sensory impaired Sensory Resolve 2018-042019-03-12 Krystyna hearing d 05-09 11:15:00 [place] 12:00: [id number] 00 Social financial LILLIAN: Active 2018-04 Krystyna Services resource Social 05-09 [facility] deficit Services 12:00: [id number] 00 Respiratory dyspnea Respirator Resolve 2018-042019-03-14 Laura present y d 05-13 10:30:00 Jean-Claude 11:15: [id number] 00 Endo/Edgard knowledge/s Endo/Edgard Active 2018-04 Laura kill 05-13 [place] deficit: pt 11:15: [id number] 00 Endo/Edgard anti-coagul Endo/Edgard Active 2018-04 Laura ation 05-13 [place] therapy 11:15: [id number] 00 Elimination urinary Eliminatio Resolve 2018-042019-03-14 Laura incontinenc n d 05-13 10:30:00 [place] e 11:15: [id number] 00 Activity ADL Activity Resolve 2018-042019-03-14 Laura assistance d 05-13 10:30:00 [place] required 11:15: [id number] 00 Activity self-care Activity Resolve 2018-042019-03-14 Laura deficit d - 10:30:00 [place] 11:15: [id number] 00 Safety fall risk Safety Resolve 2018-042019-03-14 Laura factor d 2 10:30:00 [place] present 11:15: [id number] 00 Safety can be left Safety Resolve 2018-042019-03-14 Laura alone for d 05-13 10:30:00 Jean-Cla[place] only short 11:15: [id number] periods 00 Medication injectable Meds Resolve 2018-042019-03-12 Laura med d 05-13 11:15:00 [place] assistance 11:15: [id number] required 00 Safety can be left Safety Active 2018-04 Laura alone for 05-17 Jean-Claude only short 09:15: [id number] periods 00 Allergies, Adverse Reactions, Alerts Allergy Name Allergy Status Severity Reaction(s) Onset Inactive Treating Comments Type Date Date Clinician bananas Unknown Active Unknown Reaction 2017-04 Roselyn Unknown 0-10 (Radha) Nithin [id number] keflex Unknown Active Unknown Reaction 2017-04 Roselyn Unknown 0-10 (Radha) Nithin [id number] nuts Unknown Active Unknown Reaction 2017-04 Roselyn Unknown 0-10 (Radha) Nithin [id number] Cipro Medication Active Unknown Reaction 2017-04 Sonia Quinn Name ID Unknown 0-10 metronidazol Base Active Unknown Nausea and 2017-04 Roselyn e Ingredient vomiting 2-20 Jordan [id number] Medications Ordered Filled Start Stop Current Ordering [...] mg MD,Jamie capsule capsule capsule furosemide furosemide 2018-1 No Shallish Unknown Unknown 20 mg 20 [...] nded nded release release loperamide loperamide No [place] 1-2 Unknown 2 mg tablet 2 mg [...] No [place] Unknown Unknown MultiDose MultiDose 06-06 MD,Jamie 0.05 % eye 0.05 % eye drops drops Combivent Combivent 2017-04 No [place] Unknown Unknown Respimat 20 Respimat 20 2- MD,Jamie mcg-100 mcg-100 mcg/actuati mcg/actuati on solution on solution for for inhalation inhalation Levemir Levemir 2017-04 2018- No [place]ish Unknown Unknown FlexTouch FlexTouch 06-06- ,Jamie U-100 U-100 Insulin 100 Insulin 100 unit/mL (3 unit/mL (3 mL) mL) subcutaneou subcutaneou s pen s pen testosteron testosteron 2017-04 No [place] Unknown Unknown e cypionate e cypionate 06-06 ,Latanya T 200 mg/mL 200 mg/mL intramuscul intramuscul ar kit ar kit mometasone mometasone 2017-04 No [place] Unknown Unknown 0.1 % 0.1 % 06-06 ,Latanya Woods topical topical cream cream finasteride finasteride 2017-04 No [place] Unknown Unknown 5 mg tablet 5 mg tablet 06-06 Latanya DAVID Levemir Levemir 2017-04- No [place] Unknown Unknown FlexTouch FlexTouch 06-06 ,Latanya Woods [...] Unknown Unknown mg tablet mg tablet 08-13 MD,Jaime amoxicillin amoxicillin 2018- No [place] Unknown Unknown [...] Observation Time Observation Value Comments SYSTOLIC mm[Hg] 2019-03-16 18:09:13 130 mm[Hg] mm[Hg] Method: Sit SYSTOLIC mm[Hg] 2018-01-23 18:02:16 122 mm[Hg] mm[Hg] Method: Stand DIASTOLIC mm[Hg] 2019-03-16 18:09:13 74 mm[Hg] mm[Hg] Method: Sit DIASTOLIC mm[Hg] 2018-01-23 18:02:16 60 mm[Hg] mm[Hg] Method: Stand PULSE 2019-03-16 18:09:13 83 /min /min RESP RATE 2019-03-16 18:09:13 16 /min /min TEMP 2019-03-16 18:09:13 98.3 [degF] Procedures This patient has no known procedures. Results This patient has no known results.
--- OUTSIDE RECORDS SUMMARY | 2019-04-11 14:39 | XMS REPORT ---
:1940 Author Organization [facility] Care Team Providers Name Role Phone Unavailable Unavailable Unavailable Problems Condition Condition Condition Status Onset Resolution Last Treating Comments Name Details Category Date Date Treatment Clinician Date Pain frequent Pain Mgmt Resolve 2017-042018-05-08 Roselyn pain d 0-10 08:50:00 (Radha) 11:15: Weller 00 [id number] Cardio edema Cardiovasc Resolve 2017-042018-02-20 Roselyn ular d 0-10 09:50:00 (Radha) 11:15: Weller 00 [id number] Respiratory dyspnea Respirator Resolve 2017-042018-02-15 Roselyn present y d 0-10 10:20:00 (Radha) 11:15: Weller 00 [id number] Endo/Edgard glucose Endo/Edgard Resolve 2017-042018-03-20 Roselyn testing d 0-10 12:30:00 (Radha) dependence 11:15: Weller 00 [id number] Endo/Edgard knowledge/s Endo/Edgard Resolve 2017-042018-03-06 Roselyn kill d 0-10 09:30:00 (Radha) deficit: pt 11:15: Weller 00 [id number] Endo/Edgard anti-coagul Endo/Edgard Resolve 2017-042018-03-20 Roselyn ation d 0-10 12:30:00 (Radha) therapy 11:15: Weller 00 [id number] Endo/Edgard diabetic Endo/Edagrd Resolve 2017-042018-03-06 Roselyn foot care d 0-10 09:30:00 (Radha) 11:15: Weller 00 [id number] Sensory impaired Sensory Resolve 2017-042018-03-22 Roselyn hearing d 0-10 09:55:00 (Radha) 11:15: Weller 00 [id number] Integument pressure Integument Resolve 2017-042018-08-21 Roselyn ulcer d 0-10 12:45:00 (Radha) present 11:15: Weller [id number] Integument skin Integument Resolve 2017-042018-03-03 Roselyn integrity d 0-10 09:19:00 (Radha) risk 11:15: Weller [id number] Integument surgical Integument Resolve 2017-042018-03-03 Quality wound d 0-10 09:19:00 Realtime7 present 11:15: 00 Integument other wound Integument Resolve 2017-042018-03-03 Quality present d 0-10 09:19:00 Realtime7 11:15: 00 Elimination urinary Eliminatio Resolve 2017-042018-03-20 Roselyn incontinenc n d 0-10 12:30:00 (Radha) e 11:15: Weller [id number] Neuro confusion Neuro/Emot Resolve 2017-042018-03-22 Roselyn present ion d 0-10 09:55:00 (Radha) 11:15: Weller [id number] Neuro anxiety Neuro/Emot Resolve 2017-042018-03-22 Roselyn present ion d 0-10 09:55:00 (Radha) 11:15: Weller [id number] Neuro impaired Neuro/Emot Resolve 2017-042018-03-22 Roselyn decision-ma ion d 0-10 09:55:00 (Radha) pj 11:15: Wleler [id number] Activity ADL Activity Resolve 2017-042018-03-22 Roselyn assistance d 0-10 09:55:00 (Radha) required 11:15: [id number] Safety structural Safety Resolve 2017-042018-03-22 Roselyn barriers d 0-10 09:55:00 (Radha) present 11:15: Weller [id number] Safety fall risk Safety Resolve 2017-042018-03-22 Roselyn factor d 0-10 09:55:00 (Radha) present 11:15: Weller [id number] Safety risk for Safety Resolve 2017-042018-03-22 Roselyn hospitaliza d 0-10 09:55:00 (Radha) tion 11:15: Weller [id number] Safety can be left Safety Resolve 2017-042018-03-22 Roselyn alone for d 0-10 09:55:00 (Radha) only short 11:15: Weller 00 [id number] Medication oral med Meds Resolve 2017-042018-02-06 Roselyn assistance d 0-10 09:15:00 (Radha) required 11:15: Weller [id number] Medication injectable Meds Resolve 2017-042018-02-06 Roselyn med d 0-10 09:15:00 (Radha) assistance 11:15: Weller required 00 [id number] Medication knowledge/s Meds Resolve 2017-042018-02-15 Roselyn kill d 0-10 10:20:00 (Radha) deficit: pt 11:15: Weller 00 [id number] Medication potential Meds Resolve 2017-042018-02-15 Roselyn clinically d 0-10 10:20:00 (Radha) significant 11:15: Weller medication 00 [id number] issue Musculoskel transfer Musculoske Resolve 2017-042018-03-20 Roselyn etal assistance letal d 0-10 12:30:00 (Radha) required 11:15: Weller [id number] Musculoskel requires Musculoske Resolve 2017-042018-03-20 Roselyn etal human letal d 0-10 12:30:00 (Radha) assist to 11:15: Weller leave home 00 [id number] Safety knowledge/s Safety Resolve 2017-042018-03-22 Laura kill d 0-12 09:55:00 Jean-Claude deficit: pt 10:00: [id number] 00 Respiratory knowledge/s Respirator Resolve 2017-042018-02-06 Laura kill y d 0-15 09:15:00 Jean-Claude deficit: cg 10:00: [id number] 00 Respiratory lung sounds Respirator Resolve 2017-042018-02-06 Laura deficit y d 0-15 09:15:00 [place] 10:00: [id number] 00 Sensory impaired Sensory Resolve 2017-042018-03-22 Quality verbal d 0-17 09:55:00 Realtime7 communicati 18:36: on 42 Musculoskel knowledge/s Musculoske Resolve 2017-042018-03-03 Laura etal kill letal d 0-24 09:19:00 Jean-Claude deficit: cg 09:45: [id number] 00 Nutrition knowledge/s Nutrition Resolve 2017-042018-03-03 Laura kill d 0-26 09:19:00 [place] deficit: pt 09:15: [id number] 00 Nutrition nutritional Nutrition Resolve 2017-042018-03-03 Laura restriction d 09:19:00 [place] s 09:15: [id number] 00 Elimination catheter Eliminatio Resolve 2017-042018-03-20 Laura present n d 0 12:30:00 [place] 09:15: [id number] 00 Elimination constipatio Eliminatio Resolve 2017-042018-03-20 Laura n n d 0 12:30:00 Jean-Claude 09:15: [id number] 00 Infection s/s of Infection Resolve 2017-042018-03-22 Laura infection d 0 09:55:00 Jean-Claude 09:30: [id number] 00 Endo/Edgard insulin Endo/Edgard Resolve 2017-042018-03-20 Laura admn d 04-22 12:30:00 Jean-Claude dependence 09:50: [id number] 00 Respiratory dyspnea Respirator Resolve 2017-042018-03-08 Laura present y d 04-24 09:20:00 Jean-Claude 10:07: [id number] 00 Safety cannot be Safety Resolve 2017-042018-03-22 Laura left alone d 04-24 09:55:00 Jean-Claude 10:07: [id number] 00 Cardio edema Cardiovasc Resolve 2017-042018-03-03 Laura ular d 04-26 09:19:00 Jean-Claude 09:51: [id number] 00 Respiratory Incentive Respirator Resolve 2017-042018-03-03 Laura Spirometer y d 04-26 09:19:00 [place] /Acapella 09:51: [id number] Device 00 treatments in home Endo/Edgard knowledge/s Endo/Edgard Resolve 2017-042018-03-20 Laura kill d 05-08 12:30:00 [place] deficit: pt 09:20: [id number] 00 Nutrition knowledge/s Nutrition Resolve 2017-042018-04-19 Laura kill d 05-08 09:45:00 Jean-Claude deficit: pt 09:20: [id number] 00 Nutrition nutritional Nutrition Resolve 2017-042018-04-19 Laura restriction d 05-08 09:45:00 Jean-Claude s 09:20: [id number] 00 Endo/Edgard diabetic Endo/Edgard Resolve 2017-042018-03-20 Laura foot care d 2- 12:30:00 Jean[place]Claude 09:20: [id number] 00 Pain frequent Pain Mgmt Unknown 2017-04 Laura pain 2- Jean-Claude 12:45: [id number] 00 Respiratory dyspnea Respirator Resolve 2017-042018-03-20 Laura present y d 2 12:30:00 [place] 12:45: [id number] 00 Integument pressure Integument Unknown 2017-04 Laura ulcer 2- [place] present 12:45: [id number] 00 Integument surgical Integument Resolve 2017-042018-03-24 Laura wound d 2 11:23:00 Jean-Claude present 12:45: [id number] 00 Endo/Edgard diabetic Endo/Edgard Resolve 2017-042018-03-24 Laura foot care d 05-23 11:23:00 Jean[place]Claude 09:55: [id number] 00 Elimination catheter Eliminatio Resolve 2017-042018-04-19 Laura present n d 05-23 09:45:00 Jean-Claude 09:55: [id number] 00 Safety risk for Safety Resolve 2017-042018-04-19 Laura hospitaliza d 2 09:45:00 Jean-Claude tion 11:23: [id number] 00 Safety can be left Safety Resolve 2017-042018-04-19 Laura alone for d 2- 09:45:00 Jean-Claude only short 11:23: [id number] periods 00 Musculoskel knowledge/s Musculoske Resolve 2017-042018-03-29 Laura etal kill letal d - 09:30:00 Jean-Claude deficit: cg 10:20: [id number] 00 Musculoskel requires Musculoske Resolve 2017-042018-04-12 Laura etal human letal d 2- 09:45:00 Jean-Claude assist to 10:20: [id number] leave home 00 Endo/Edgard diabetic Endo/Edgard Resolve 2017-042018-04-19 Laura foot care d 2- 09:45:00 Jean-Claude 09:30: [id number] 00 Elimination constipatio Eliminatio Resolve 2017-042018-04-12 Laura n n d 05-30 09:45:00 [place] 09:30: [id number] 00 Pain frequent Pain Mgmt Unknown 2017-04 Laura pain 06-06 [place] 09:45: [id number] 00 Endo/Edgard insulin Endo/Edgard Resolve 2017-042018-04-19 Laura admn d 06-06 09:45:00 Jean-Claude dependence 09:45: [id number] 00 Endo/Edgadr anti-coagul Endo/Edgard Resolve 2017-042018-04-19 Laura ation d 06-06 09:45:00 [place] therapy 09:45: [id number] 00 Integument surgical Integument Resolve 2017-042018-04-05 Laura wound d 06-06 09:45:00 [place] present 09:45: [id number] 00 Integument skin Integument Resolve 2017-042018-04-05 Laura integrity d 06-06 09:45:00 Jean-Claude risk 09:45: [id number] 00 Integument pressure Integument Unknown 2017-04 Laura ulcer 06-06 Jean-Claude present 09:45: [id number] 00 Elimination UTI within Eliminatio Resolve 2017-042018-04-12 Laura past 14 n d 06-06 09:45:00 Jean-Claude days 09:45: [id number] 00 Activity ADL Activity Resolve 2017-042018-09-15 Laura assistance d 06-06 10:35:00 Jean-Claude required 09:45: [id number] 00 Safety fall risk Safety Resolve 2017-042018-04-19 Laura factor d 06-06 09:45:00 [place] present 09:45: [id number] 00 Medication potential Meds Resolve 2017-042018-04-19 Laura clinically d 06-06 09:45:00 [place] significant 09:45: [id number] medication 00 issue Medication oral med Meds Resolve 2017-042018-04-05 Shari assistance d 06-06 09:45:00 Regeczi required 09:45: [id number] 00 Medication injectable Meds Resolve 2017-042018-08-09 Shari med d 06-06 09:20:00 Regeczi assistance 09:45: [id number] required 00 Musculoskel transfer Musculoske Resolve 2017-042018-04-12 Shari etal assistance letal d 06-06 09:45:00 Regeczi required 09:45: [id number] 00 Medication oral med Meds Resolve 2017-042018-04-19 Larua assistance d 06-08 09:45:00 [place] required 10:00: [id number] 00 Medication injectable Meds Unknown 2017-04 Laura med 06-08 Jean-Claude assistance 10:00: [id number] required 00 Sensory impaired Sensory Resolve 2017-042018-04-19 Nima verbal d 06-08 09:45:00 [place] communicati 15:20: [id number] on 00 Sensory impaired Sensory Resolve 2017-042018-04-19 Nima hearing d 06-08 09:45:00 [place] 15:20: [id number] 00 Medication injectable Meds Unknown 2017-04 Nhung med Pérez assistance 14:56: [id number] required 00 Medication injectable Meds Unknown Nima med 04-13 Graves assistance 13:50: [id number] required 00 Elimination constipatio Eliminatio Resolve 2018-04-19 Laura n n d 04-14 09:45:00 Jean-Claude 09:28: [id number] 00 Medication injectable Meds Unknown Laura med 04-17 Jean-Claude assistance 10:00: [id number] required 00 Medication injectable Meds Resolve 2018-04-19 Laura med d 04-19 09:45:00 Jean-Claude assistance 09:45: [id number] required 00 Endo/Edgard anti-coagul Endo/Edgard Resolve 2018-04-26 Laura ation d 04-21 10:15:00 Jean-Claude therapy 09:45: [id number] 00 Nutrition knowledge/s Nutrition Resolve 2018-04-26 Laura kill d 04-21 10:15:00 [place] deficit: pt 09:45: [id number] 00 Nutrition nutritional Nutrition Resolve 2018-04-26 Laura restriction d 04-21 10:15:00 Jean-Claude s 09:45: [id number] 00 Elimination catheter Eliminatio Resolve 2018-04-26 Laura present n d 04-21 10:15:00 Jean-Claude 09:45: [id number] 00 Elimination constipatio Eliminatio Resolve 2018-04-26 Laura n n d 04-21 10:15:00 Jean-Claude 09:45: [id number] 00 Safety risk for Safety Resolve 2018-04-26 Laura hospitaliza d 1-11 10:15:00 [place] tion 09:45: [id number] 00 Safety can be left Safety Resolve 2018-04-26 Laura alone for d 1-11 10:15:00 [place] only short 09:45: [id number] periods 00 Sensory impaired Sensory Resolve 2018-04-26 Nima verbal d 1-11 10:15:00 [place] communicati 14:30: [id number] on 00 Sensory impaired Sensory Resolve 2018-04-26 Nima hearing d 1-11 10:15:00 [place] 14:30: [id number] 00 Sensory impaired Sensory Resolve 2018-04-28 Nima verbal d 1-17 10:20:00 [place] communicati 12:45: [id number] on 00 Sensory impaired Sensory Resolve 2018-04-28 Nima hearing d 1-17 10:20:00 [place] 12:45: [id number] 00 Endo/Edgard anti-coagul Endo/Edgard Resolve 2018-05-24 Laura ation d 1-18 12:30:00 [place] therapy 10:20: [id number] 00 Safety risk for Safety Active Laura hospitaliza - [place] tion 10:20: [id number] 00 Safety can be left Safety Resolve 2018-05-10 Laura alone for d 1- 13:45:00 Jean-Claude only short 10:10: [id number] Sensory impaired Sensory Resolve 2018-05-10 Jia hearing d 05-05 13:45:00 [place] 13:30: t 00 [id number] Sensory impaired Sensory Resolve 2018-05-10 Jia verbal d 1 13:45:00 Hillebrand communicati 13:30: t on 00 [id number] Elimination catheter Eliminatio Resolve 2018-05-08 Wandy present n d 05-08 08:50:00 ,Kaylee 08:50: 00 Elimination constipatio Eliminatio Resolve 2018-06-28 Wandy n n d 05-08 09:45:00 ,Kaylee 08:50: 00 Safety cannot be Safety Resolve 2018-05-10 Laura left alone d 1- 13:45:00 [place] 08:50: [id number] 00 Elimination catheter Eliminatio Resolve 2018-05-12 Shari present n d 2- 09:30:00 Regeczi 09:30: [id number] 00 Safety can be left Safety Resolve 2018-05-17 Laura alone for d - 10:00:00 Jean-Claude only short 09:30: [id number] periods 00 Elimination urinary Eliminatio Resolve 2018-05-15 Laura incontinenc n d 05-15 08:45:00 Jean-Claude e 08:45: [id number] 00 Pain frequent Pain Mgmt Resolve 2018-05-17 Laura pain d 2-06 10:00:00 [place] 10:00: [id number] 00 Respiratory lung sounds Respirator Resolve 2018-05-22 Laura deficit y d 2-06 10:44:00 Jean-Claude 10:00: [id number] 00 Integument pressure Integument Unknown Lauar ulcer 2-06 [place] present 10:00: [id number] 00 Integument skin Integument Resolve 2018-05-17 Laura integrity d 2-06 10:00:00 Jean-Claude risk 10:00: [id number] 00 Integument surgical Integument Resolve 2018-05-17 Laura wound d 2-06 10:00:00 Jean-Claude present 10:00: [id number] 00 Activity ADL Activity Unknown 2018- Laura assistance 2-06 [place] required 10:00: [id number] 00 Activity self-care Activity Resolve 2018-05-19 Laura deficit d 2-06 11:15:00 [place] 10:00: [id number] 00 Safety fall risk Safety Resolve 2018-05-19 Laura factor d 2-06 11:15:00 [place] present 10:00: [id number] 00 Elimination urinary Eliminatio Resolve 2018-05-24 [place] incontinenc n d 2- 12:30:00 Kaylee 11:15: 00 Safety can be left Safety Resolve 2018-05-24 Laura alone for d 2-08 12:30:00 Jean-Claude only short 11:15: [id number] periods 00 Safety fall risk Safety Resolve 2018-05-24 Sonia White factor d 2-12 12:30:00 present 09:48: 41 Endo/Edgard glucose Endo/Edgard Resolve 2018-05-24 Laura tolerance d 2-13 12:30:00 Jean-Claude problem 12:30: [id number] 00 Respiratory Incentive Respirator Resolve 2018-06-07 Laura Spirometer y d 2-15 12:00:00 [place] /Acapella 13:40: [id number] Device 00 treatments in home Endo/Edgard anti-coagul Endo/Edgard Resolve 2018-06-12 Laura ation d 2-15 09:30:00 [place] therapy 13:40: [id number] 00 Elimination urinary Eliminatio Resolve 2018-05-26 Laura incontinenc n d 2-15 13:40:00 Jean-Claude e 13:40: [id number] 00 Safety can be left Safety Resolve 2018-06-07 Laura alone for d 2-15 12:00:00 Jean-Claude only short 13:40: [id number] periods 00 Endo/Edgard glucose Endo/Edgard Resolve 2018-06-07 Cherrise tolerance d 2-22 12:00:00 Trixie problem 10:15: [id number] 00 Endo/Edgard insulin Endo/Edgard Resolve 2018-06-12 Cherrise admn d 2-22 09:30:00 [place] dependence 10:15: [id number] 00 Endo/Edgard glucose Endo/Edgard Resolve 2018-06-12 Cherrise testing d 2- 09:30:00 [place] dependence 10:15: [id number] 00 Safety fall risk Safety Resolve 2018-06-07 Cherrise factor d 2-22 12:00:00 [place] present 10:15: [id number] 00 Musculoskel transfer Musculoske Active Cherrise etal assistance letal 06-02 [place] required 10:15: [id number] 00 Musculoskel requires Musculoske Active Cherrise etal human letal 2 [place] assist to 10:15: [id number] leave home 00 Elimination urinary Eliminatio Resolve 2018-06-07 Laura incontinenc n d 06-05 12:00:00 Jean-Claude e 12:30: [id number] 00 Activity self-care Activity Resolve 2018-08-14 Laura deficit d 06-05 12:10:00 Jean-Claude 12:30: [id number] 00 Elimination urinary Eliminatio Resolve 2018-06-12 Laura incontinenc n d 06-09 09:30:00 Jean-Claude e 09:13: [id number] 00 Safety can be left Safety Resolve 2018-06-12 Laura alone for d 06-09 09:30:00 Jean-Claude only short 09:13: [id number] periods 00 Respiratory Incentive Respirator Resolve 2018-06-14 Laura Spirometer y d 06-12 09:30:00 Jean-Claude /Acapemiguel 09:30: [id number] Device 00 treatments in home Endo/Edgard anti-coagul Endo/Edgard Resolve 2018-06-30 Laura ation d 06-14 09:19:00 [place] therapy 09:30: [id number] 00 Safety can be left Safety Resolve 2018-06-30 Laura alone for d 06-14 09:19:00 Jean-Claude alejo 09:30: [id number] periods 00 Elimination urinary Eliminatio Resolve 2018-06-19 Alura incontinenc n d 06-16 13:45:00 Jean-Claude e 09:45: [id number] 00 Elimination urinary Eliminatio Resolve 2018-06-28 Laura incontinenc n d 06-23 09:45:00 Jean-Claude e 13:15: [id number] 00 Elimination constipatio Eliminatio Resolve 2018-07-14 Laura n n d 06-30 09:20:00 Jean-Claude 09:19: [id number] 00 Endo/Edgard anti-coagul Endo/Edgard Resolve 2018-07-14 Laura ation d 07-03 09:20:00 Jean-Claude therapy 12:49: [id number] 00 Elimination urinary Eliminatio Resolve 2018-07-14 Laura incontinenc n d 07-03 09:20:00 Jean-Claude e 12:49: [id number] 00 Safety can be left Safety Resolve 2018-08-18 Laura alone for d 07-07 12:05:00 Jean-Claude only short 12:50: [id number] periods 00 Endo/Edgard glucose Endo/Edgard Resolve 2018-07-14 Shi testing d 07-10 09:20:00 Sorin, dependence 12:30: [id number] 00 Pain frequent Pain Mgmt Resolve 2018-07-14 Laura pain d 07-14 09:20:00 [place] 09:20: [id number] 00 Integument surgical Integument Resolve 2018-08-13 Laura wound d 07-14 12:50:00 [place] present 09:20: [id number] 00 Integument skin Integument Resolve 2018-08-13 Laura integrity d 07-14 12:50:00 Jean-Claude risk 09:20: [id number] 00 Safety fall risk Safety Resolve 2018-08-18 Laura factor d 07-14 12:05:00 [place] present 09:20: [id number] 00 Endo/Edgard anti-coagul Endo/Edgard Resolve 2018-08-14 Laura ation d 07-17 12:10:00 Jean-Claude therapy 13:00: [id number] 00 Elimination urinary Eliminatio Resolve 2018-07-21 Laura incontinenc n d 07-17 09:25:00 Jean-Claude e 13:00: [id number] 00 Activity ADL Activity Unknown Laura assistance 07-17 Jean-Claude required 13:00: [id number] 00 Elimination urinary Eliminatio Resolve 2018-08-14 Laura incontinenc n d 07-24 12:10:00 [place] e 09:27: [id number] 00 Pain frequent Pain Mgmt Resolve 2018 Laura pain d 08-07 09:20:00 Jean-Claude 12:45: [id number] 00 Cardio edema Cardiovasc Resolve 2018 Laura ular d 08-07 09:20:00 Jean-Claude 12:45: [id number] 00 Respiratory dyspnea Respirator Resolve 2018 Laura present y d 08-07 09:20:00 Jean-Claude 12:45: [id number] 00 Endo/Edgard diabetic Endo/Edgard Resolve 2018-08-14 Laura foot care d 08-07 12:10:00 Jean-Claude 12:45: [id number] 00 Nutrition knowledge/s Nutrition Active Laura kill 08-07 Jean-Claude deficit: pt 12:45: [id number] 00 Nutrition nutritional Nutrition Active Laura restriction 08-07 Jean-Claude s 12:45: [id number] 00 Neuro confusion Neuro/Emot Resolve 2018-08-14 Laura present ion d 08-07 12:10:00 Jean-Claude 12:45: [id number] 00 Medication oral med Meds Resolve 2018 Laura assistance d 08-07 09:20:00 [place] required 12:45: [id number] 00 Medication injectable Meds Resolve 2018 Jia med d 08-07 09:20:00 Jerardo assistance 12:45: [id number] required 00 Cardio edema Cardiovasc Resolve 2018-08-23 Laura ular d 08-13 11:15:00 Jean-Claude 12:50: [id number] 00 Respiratory dyspnea Respirator Resolve 2018-08-14 Laura present y d 08-13 12:10:00 Jean-Claude 12:50: [id number] 00 Endo/Edgard anti-coagul Endo/Edgard Resolve 2018-08-28 Laura ation d 08-16 12:00:00 Jean-Claude therapy 12:15: [id number] 00 Elimination urinary Eliminatio Resolve 2018-08-21 Laura incontinenc n d 08-16 12:45:00 Jean-Claude e 12:15: [id number] 00 Sensory impaired Sensory Resolve 2018-08-21 Krystyna verbal d 08-17 12:45:00 [place] communicati 14:30: [id number] on 00 Sensory impaired Sensory Resolve 2018-08-21 Krystyna hearing d 08-17 12:45:00 [place] 14:30: [id number] 00 Social financial LILLIAN: Resolve 2019-02-16 Krystyna Services resource Social d 08-17 13:45:00 [place] deficit Services 14:30: [id number] 00 Social knowledge/s LILLIAN: Resolve 2018-08-17 Krystyna Services kill Social d 08-17 14:30:00 [place] deficit - Services 14:30: [id number] pt 00 Social knowledge/s LILLIAN: Resolve 2018-08-17 Krystyna Services kill Social d 08-17 14:30:00 [place] deficit - Services 14:30: [id number] cg 00 Safety can be left Safety Resolve 2018-09-07 Laura alone for d 5-15 10:00:00 Jean-Claude cruz short 11:15: [id number] periods 00 Social knowledge/s LILLIAN: Active Laura Services kill Social 08-23 Jean-Claude deficit - Services 11:15: [id number] pt 00 Elimination urinary Eliminatio Resolve 2018-09-07 Laura incontinenc n d 08-25 10:00:00 Jean-Claude e 11:45: [id number] 00 Sensory impaired Sensory Resolve 2018-09-07 Krystyna verbal d 09-01 [facility] 14[facility]: [id number] on 00 Sensory impaired Sensory Resolve 2018-09-07 Krystyna hearing d 09-01 10:00:00 [facility] 14:45: [id number] 00 Social knowledge/s LILLIAN: Active Krystyna Services kill Social 09-01 [place] deficit - Services 14:45: [id number] cg 00 Respiratory dyspnea Respirator Resolve 2018-09-15 Laura present y d 09-07 10:35:00 Jean-Claude 10:00: [id number] 00 Pain frequent Pain Mgmt Resolve 2018-09-11 Laura pain d 09-11 11:50:00 Jean-Claude 11:50: [id number] 00 Cardio hypertensio Cardiovasc Resolve 2018-09-11 Laura n ular d 09-11 11:50:00 Jean-Claude 11:50: [id number] 00 Integument pressure Integument Resolve 2018-09-15 Laura ulcer d 6 10:35:00 Jean-Claude present 11:50: [id number] 00 Integument surgical Integument Resolve 2018-09-15 Laura wound d 6-03 10:35:00 Jean-Claude present 11:50: [id number] 00 Integument skin Integument Resolve 2018-09-15 Laura integrity d 09-11 10:35:00 Jean-Claude risk 11:50: [id number] 00 Elimination urinary Eliminatio Resolve 2018-09-11 Laura incontinenc n d 09-11 11:50:00 [place] e 11:50: [id number] 00 Activity ADL Activity Unknown Laura assistance 09-11 Jean-Claude required 11:50: [id number] 00 Activity self-care Activity Resolve 2018-09-15 Laura deficit d 09-11 10:35:00 Jean-Claude 11:50: [id number] 00 Safety fall risk Safety Resolve 2018-09-15 Laura factor d 09-11 10:35:00 Jean-Claude present 11:50: [id number] 00 Safety can be left Safety Resolve 2018-09-15 Laura alone for d 09-11 10:35:00 Jean-Claude only short 11:50: [id number] periods 00 Endo/Edgard anti-coagul Endo/Edgard Resolve 2018-09-18 Laura ation d 09-15 12:20:00 [place] therapy 10:35: [id number] 00 Elimination urinary Eliminatio Resolve 2018-09-18 Laura incontinenc n d 09-15 12:20:00 Jean-Claude e 10:35: [id number] 00 Elimination constipatio Eliminatio Resolve 2018-09-18 Laura n n d 09-15 12:20:00 Jean-Claude 10:35: [id number] 00 Safety can be left Safety Resolve 2018-09-25 Laura alone for d 610 11:45:00 Jean-Claude only short 12:20: [id number] periods 00 Cardio hypertensio Cardiovasc Resolve 2018-09-21 Laura n ular d 09-21 11:45:00 Jean-Claude 11:45: [id number] 00 Endo/Edgard anti-coagul Endo/Edgard Resolve 2018-09-25 Laura ation d 09-21 11:45:00 [place] therapy 11:45: [id number] 00 Cardio hypertensio Cardiovasc Resolve 2018-10-02 Laura n ular d 6- 12:05:00 Jean-Claude 11:45: [id number] 00 Elimination urinary Eliminatio Resolve 2018-10-02 Laura incontinenc n d 6 12:05:00 Jean-Claude e 11:45: [id number] 00 Endo/Edgard anti-coagul Endo/Edgard Resolve 2018-10-02 Laura ation d 09-29 12:05:00 Jean-Claude therapy 09:45: [id number] 00 Safety can be left Safety Resolve 2018-10-02 Laura alone for d 09-29 12:05:00 Jean-Claude only short 09:45: [id number] 00 Endo/Edgard anti-coagul Endo/Edgard Resolve 2018-10-27 Laura ation d 10-04 11:30:00 Jean-Claude therapy 10:10: [id number] 00 Elimination urinary Eliminatio Resolve 2018-10-06 Laura incontinenc n d 10-04 09:10:00 Jean-Claude e 10:10: [id number] 00 Elimination constipatio Eliminatio Resolve 2018-10-06 Laura n n d 10-04 09:10:00 Jean-Claude 10:10: [id number] 00 Safety can be left Safety Resolve 2018-10-06 Lauar alone for d 10-04 09:10:00 Jean-Claude only short 10:10: [id number] Sensory impaired Sensory Resolve 2018-10-23 Krystyna verbal d 10-05 11:56:00 [place] communicati 15:00: [id number] on 00 Sensory impaired Sensory Resolve 2018-10-23 Krystyna hearing d 10-05 11:56:00 [place] 15:00: [id number] 00 Elimination urinary Eliminatio Resolve 2018-10-27 Laura incontinenc n d 10-09 11:30:00 Jean-Claude butler 12:15: [id number] 00 Elimination bloody Eliminatio Resolve 2018-10-27 Laura urine n d 10-09 11:30:00 Jean-Claude 12:15: [id number] 00 Safety can be left Safety Resolve 2018-10-23 Laura alone for d 10-09 11:56:00 Jean-Claude only short 12:15: [id number] periods Elimination constipatio Eliminatio Resolve 2018-12-08 Laura n n d 10-16 14:00:00 Jean-Claude 12:35: [id number] 00 Cardio edema Cardiovasc Resolve 2018-10-27 Laura ular d 10-20 11:30:00 Jean-Claude 11:35: [id number] 00 Endo/Edgard knowledge/s Endo/Edgard Resolve 2018-10-27 Laura kill d 10-20 11:30:00 Jean-Claude deficit: pt 11:35: [id number] 00 Sensory impaired Sensory Unknown Jonatan verbal 7-15 Demarco, communicati 13:30: PT on [id number] Sensory impaired Sensory Unknown Jonatan hearing 15 Demarco, 13:30: PT [id number] Safety can be left Safety Resolve 2018-10-27 Laura alone for d 10-25 11:30:00 Jean-Claude cruz short 10:35: [id number] 00 Endo/Edgard glucose Endo/Edgard Resolve 2018-12-11 Cherrise tolerance d 10-30 09:30:00 Trixie problem 11:55: [id number] 00 Endo/Edgard insulin Endo/Edgard Resolve 2018-12-13 Cherrise admn d 10-30 11:10:00 Trixie dependence 11:55: [id number] 00 Endo/Edgard glucose Endo/Edgard Resolve 2018-12-13 Cherrise testing d 10-30 11:10:00 Trixie dependence 11:55: [id number] 00 Endo/Edgard knowledge/s Endo/Edgard Resolve 2018-12-08 Cherrise kill d 10-30 14:00:00 [place] deficit: pt 11:55: [id number] 00 Elimination urinary Eliminatio Resolve 2018-12-08 Cherrise urgency n d 10-30 14:00:00 Trixie 11:55: [id number] 00 Neuro depressive Neuro/Emot Resolve 2018-12-08 Cherrise feelings ion d 10-30 14:00:00 Trixie present 11:55: [id number] 00 Neuro impaired Neuro/Emot Resolve 2018-12-08 Cherrise decision-ma ion d 10-30 14:00:00 [place] pj 11:55: [id number] 00 Safety fall risk Safety Resolve 2018-12-06 Cherrise factor d 10-30 13:05:00 [place] present 11:55: [id number] 00 Endo/Edgard anti-coagul Endo/Edgard Resolve 2018-12-13 Shi ation d 11-01 11:10:00 Sorin, therapy 12:30: [id number] 00 Respiratory Incentive Respirator Resolve 2018-11-29 Cherrise Spirometer y d 11-03 10:15:00 Trixie /Acapella 10:25: [id number] Device 00 treatments in home Elimination urinary Eliminatio Resolve 2018-12-08 Cherrise frequency n d 11-03 14:00:00 [place] 10:25: [id number] 00 Respiratory lung sounds Respirator Resolve 2018-11-29 Cherrise deficit y d 11-06 10:15:00 Trixie 12:05: [id number] 00 Neuro memory Neuro/Emot Resolve 2018-12-08 Cherrise deficit ion d 11-08 14:00:00 [place] needing 10:30: [id number] supervision 00 Pain frequent Pain Mgmt Resolve 2018-12-06 Shi pain d 11-10 13:05:00 Sorin, 11:00: [id number] 00 Integument pressure Integument Active Shi ulcer 11-10 Sorin, present 11:00: [id number] 00 Integument surgical Integument Active 2018- Shi wound 11-10 Sorin, present 11:00: [id number] 00 Integument skin Integument Active 2018- Shi integrity 11-10 Sorin, risk 11:00: [id number] 00 Elimination urinary Eliminatio Resolve 2018-12-08 Shi incontinenc n d 11-10 14:00:00 Sorin, e 11:00: [id number] 00 Activity self-care Activity Resolve 2018-11-29 Shi deficit d 11-10 10:15:00 Sorin, 11:00: [id number] 00 Activity ADL Activity Resolve 2018-12-08 Shi assistance d 11-10 14:00:00 Sorin, required 11:00: [id number] 00 Pain knowledge/s Pain Mgmt Resolve 2018-12-06 Krystyna kill d 11-16 13:05:00 [place] deficit: cg 15:15: [id number] 00 Respiratory knowledge/s Respirator Resolve 2018-11-29 Krystyna kill y d 11-16 10:15:00 [place] deficit: cg 15:15: [id number] 00 Integument knowledge/s Integument Active Krystyna kill 11-16 [place] deficit: cg 15:15: [id number] 00 Elimination knowledge/s Eliminatio Resolve 2018-12-08 Krystyna kill n d 11-16 14:00:00 [place] deficit: cg 15:15: [id number] 00 Safety knowledge/s Safety Resolve 2018-12-06 Krystyna kill d 11-16 13:05:00 [place] deficit: cg 15:15: [id number] 00 Cardio hypertensio Cardiovasc Resolve 2018-11-29 Lenny jarvis joseph d 11-17 10:15:00 [place] 10:45: [id number] 00 Safety can be left Safety Resolve 2018-12-08 Shi alone for d 11-22 14:00:00 nancy Rowell short 11:00: [id number] periods 00 Sensory impaired Sensory Resolve 2018-12-08 Laura verbal d 11-24 14:00:00 Jean-Claude communicati 09:30: [id number] on 00 Sensory impaired Sensory Resolve 2018-12-08 Laura hearing d 11-24 14:00:00 Jean-Claude 09:30: [id number] 00 Respiratory knowledge/s Respirator Resolve 2018-12-08 Laura kill y d 12-01 14:00:00 [place] deficit: cg 09:30: [id number] 00 Sensory impaired Sensory Unknown Krystyna verbal 8 [place] communicati 15:00: [id number] on 00 Sensory impaired Sensory Unknown Krystyna hearing 12-08 [place] 15:00: [id number] 00 Respiratory knowledge/s Respirator Resolve 2018-12-13 Laura kill y d 12-11 11:10:00 Jean-Claude deficit: cg 09:30: [id number] 00 Endo/Edgard knowledge/s Endo/Edgard Resolve 2018-12-13 Laura kill d 12-11 11:10:00 [place] deficit: pt 09:30: [id number] 00 Elimination urinary Eliminatio Resolve 2018-12-15 Laura incontinenc n d 12-11 13:10:00 Jean-Claude e 09:30: [id number] 00 Safety can be left Safety Resolve 2018-12-15 Laura alone for d 12-11 13:10:00 Jean-Claude only short 09:30: [id number] 00 Endo/Edgard knowledge/s Endo/Edgard Resolve 2019-01-05 Laura kill d 12-15 11:00:00 Jean-Claude deficit: pt 13:10: [id number] 00 Endo/Edgard anti-coagul Endo/Edgard Resolve 2019-01-05 Laura ation d 12-15 11:00:00 Jean-Cluade therapy 13:10: [id number] 00 Elimination urinary Eliminatio Resolve 2018-12-27 Laura incontinenc n d 12-18 09:20:00 Jean-Claude e 12:10: [id number] 00 Safety can be left Safety Resolve 2019-01-05 Laura alone for d 12-18 11:00:00 Jean-Claude only short 12:10: [id number] periods 00 Elimination constipatio Eliminatio Resolve 2019-01-05 Laura n n d 12-20 11:00:00 Jean-Claude 12:15: [id number] 00 Pain frequent Pain Mgmt Resolve 2019-01-15 Laura pain d 12-27 12:30:00 Jean-Claude 09:20: [id number] 00 Respiratory dyspnea Respirator Resolve 2019-01-05 Laura present y d 12-27 11:00:00 Jean-Claude 09:20: [id number] 00 Endo/Edgard diabetic Endo/Edgard Resolve 2019-01-05 Laura foot care d 9 11:00:00 Jean-Claude 09:20: [id number] 00 Elimination diarrhea Eliminatio Resolve 2019-01-05 Laura n d 18 11:00:00 Jean-Claude 09:20: [id number] 00 Neuro confusion Neuro/Emot Resolve 2019-01-05 Laura present ion d 12-27 11:00:00 Jean-Claude 09:20: [id number] 00 Neuro anxiety Neuro/Emot Resolve 2019-01-05 Laura present ion d 12-27 11:00:00 Jean-Claude 09:20: [id number] 00 Activity ADL Activity Resolve 2019-01-05 Laura assistance d 12-27 11:00:00 Jean-Claude required 09:20: [id number] 00 Activity self-care Activity Resolve 2019-01-05 Laura deficit d 12-27 11:00:00 Jean-Claude 09:20: [id number] 00 Safety fall risk Safety Resolve 2019-01-05 Laura factor d 12-27 11:00:00 Jean-Claude present 09:20: [id number] 00 Medication potential Meds Resolve 2019-01-05 Laura clinically d 12-27 11:00:00 [place] significant 09:20: [id number] medication 00 issue Elimination urinary Eliminatio Resolve 2019-01-05 Laura incontinenc n d 12-29 11:00:00 Jean-Claude e 11:20: [id number] 00 Endo/Edgard knowledge/s Endo/Edgard Resolve 2019-01-10 Laura kill d 01-08 10:00:00 Jean[place]Cla[place] deficit: pt 11:30: [id number] 00 Endo/Edgard anti-coagul Endo/Edgard Resolve 2019-01-10 Laura ation d 01-08 10:00:00 [place] therapy 11:30: [id number] 00 Elimination urinary Eliminatio Resolve 2019-01-15 Laura incontinenc n d 01-08 12:30:00 [place] e 11:30: [id number] 00 Safety can be left Safety Resolve 2019-02-16 Laura alone for d 9-30 12:00:00 [place] only short 11:30: [id number] periods 00 Respiratory dyspnea Respirator Resolve 2018-042019-01-26 Laura present y d 0-02 10:00:00 Jean-Claude 10:00: [id number] 00 Activity ADL Activity Resolve 2018-042019-01-12 Laura assistance d 0-02 11:30:00 [place] required 10:00: [id number] 00 Activity self-care Activity Resolve 2018-042019-01-12 Laura deficit d 0-02 11:30:00 [place] 10:00: [id number] 00 Safety fall risk Safety Resolve 2018-042019-01-12 Laura factor d 0-02 11:30:00 Jean-Claude present 10:00: [id number] 00 Medication injectable Meds Resolve 2018-042019-01-17 Laura med d 0-02 09:45:00 Jean-Claude assistance 10:00: [id number] required 00 Endo/Edgard knowledge/s Endo/Edgard Resolve 2018-042019-01-15 Laura kill d 0-04 12:30:00 Jean-Cla[place] deficit: pt 11:30: [id number] 00 Endo/Edgard anti-coagul Endo/Edgard Resolve 2018-042019-01-15 Laura ation d 0-04 12:30:00 [place] therapy 11:30: [id number] 00 Elimination constipatio Eliminatio Resolve 2018-042019-01-15 Laura n n d 0-04 12:30:00 Jean-Claude 11:30: [id number] 00 Sensory impaired Sensory Resolve 2018-042019-01-15 Krystyna verbal d 0-04 12:30:00 Kathy communicati 15:30: [id number] on 00 Sensory impaired Sensory Resolve 2018-042019-01-15 Krystyna hearing d 0-04 12:30:00 [place] 15:30: [id number] 00 Infection s/s of Infection Resolve 2018-042019-03-09 Laura infection d 0-07 11:00:00 Jean-Claude 12:30: [id number] 00 Sensory impaired Sensory Resolve 2018-042019-01-22 Jonatan verbal d 0-08 11:00:00 ambrosio Pal 13:00: PT on 00 [id number] Sensory impaired Sensory Resolve 2018-042019-01-22 Jonatan hearing d 0-08 11:00:00 Demarco, 13:00: PT 00 [id number] Endo/Edgard knowledge/s Endo/Edgard Resolve 2018-042019-02-07 Laura kill d 0-09 11:20:00 [place] deficit: pt 09:45: [id number] 00 Endo/Edgard anti-coagul Endo/Edgard Resolve 2018-042019-02-07 Laura ation d 0-09 11:20:00 Jean-Claude therapy 09:45: [id number] 00 Elimination urinary Eliminatio Resolve 2018-042019-02-02 Laura incontinenc n d 0-09 11:30:00 Jean-Claude e 09:45: [id number] 00 Elimination constipatio Eliminatio Resolve 2018-042019-02-02 Laura n n d 0-16 11:30:00 Jean-Claude 10:00: [id number] 00 Sensory impaired Sensory Resolve 2018-042019-01-31 Jonatan verbal d 0-17 11:10:00 Demarco, communicflorentino 15:00: PT on 00 [id number] Sensory impaired Sensory Resolve 2018-042019-01-31 Jonatan hearing d 0-17 11:10:00 Demarco, 15:00: PT 00 [id number] Pain frequent Pain Mgmt Resolve 2018-042019-02-16 Jonatan pain d 0-23 12:00:00 Demarco, 13:00: PT 00 [id number] Sensory impaired Sensory Unknown 2018-04 Jonatan verbal 0-23 Demarco, communicati 13:00: PT on 00 [id number] Sensory impaired Sensory Unknown 2018-04 Jonatan hearing 0-23 Demarco, 13:00: PT 00 [id number] Respiratory dyspnea Respirator Resolve 2018-042019-02-07 Laura present y d 0-25 11:20:00 [place] 11:30: [id number] 00 Elimination urinary Eliminatio Resolve 2018-042019-02-07 Laura incontinenc n d 0-28 11:20:00 [place] e 12:40: [id number] 00 Endo/Edgard knowledge/s Endo/Edgard Resolve 2018-042019-02-19 Laura kill d 1 12:40:00 [place] deficit: pt 12:30: [id number] 00 Endo/Edgard anti-coagul Endo/Edgard Resolve 2018-042019-02-19 Laura ation d 04-11 12:40:00 [place] therapy 12:30: [id number] 00 Elimination urinary Eliminatio Resolve 2018-042019-02-16 Laura incontinenc n d 04-11 12:00:00 [place] e 12:30: [id number] 00 Medication potential Meds Resolve 2018-042019-02-24 Laura clinically d 04-14 09:45:00 [place] significant 12:20: [id number] medication 00 issue Elimination constipatio Eliminatio Resolve 2018-042019-02-16 Laura n n d 04-16 12:00:00 Jean-Claude 11:20: [id number] 00 Elimination urinary Eliminatio Resolve 2018-042019-02-24 Laura incontinenc n d 04-21 09:45:00 Jean-Claude e 12:40: [id number] 00 Safety can be left Safety Resolve 2018-042019-02-24 Laura alone for d 04-21 09:45:00 Jean-Claude only short 12:40: [id number] periods 00 Endo/Edgard knowledge/s Endo/Edgard Resolve 2018-042019-02-24 Laura kill d 04-23 09:45:00 Jean-Claude deficit: pt 12:05: [id number] 00 Endo/Edgard anti-coagul Endo/Edgard Resolve 2018-042019-02-24 Laura ation d 04-23 09:45:00 Jean-Claude therapy 12:05: [id number] 00 Sensory impaired Sensory Resolve 2018-042019-02-26 Laura verbal d 04-26 13:20:00 Jean-Claude communicati 09:45: [id number] on 00 Sensory impaired Sensory Resolve 2018-042019-02-26 Laura hearing d 04-26 13:20:00 [place] 09:45: [id number] 00 Endo/Edgard knowledge/s Endo/Edgard Resolve 2018-042019-02-28 Laura kill d 04-28 11:15:00 Jean-Claude deficit: pt 13:20: [id number] 00 Endo/Edgard anti-coagul Endo/Edgard Resolve 2018-042019-02-28 Laura ation d 04-28 11:15:00 [place] therapy 13:20: [id number] 00 Elimination urinary Eliminatio Resolve 2018-042019-03-09 Laura incontinenc n d 04-28 11:00:00 [place] e 13:20: [id number] 00 Safety can be left Safety Resolve 2018-042019-03-05 Laura alone for d 04-28 12:45:00 [place] only short 13:20: [id number] periods 00 Endo/Edgard knowledge/s Endo/Edgard Resolve 2018-042019-03-09 Laura kill d 05-05 11:00:00 [place] deficit: pt 12:45: [id number] 00 Endo/Egdard anti-coagul Endo/Edgard Resolve 2018-042019-03-09 Laura ation d 05-05 11:00:00 [place] therapy 12:45: [id number] 00 Safety can be left Safety Resolve 2018-042019-03-09 Laura alone for d 05-07 11:00:00 [place] only short 11:25: [id number] Sensory impaired Sensory Resolve 2018-042019-03-12 Krystyna verbal d 05-09 11:15:00 [place] communicati 12:00: [id number] on 00 Sensory impaired Sensory Resolve 2018-042019-03-12 Krystyna hearing d 05-09 11:15:00 [place] 12:00: [id number] 00 Social financial LILLIAN: Active 2018-04 Krystyna Services resource Social 05-09 [facility] deficit Services 12:00: [id number] 00 Respiratory dyspnea Respirator Resolve 2018-042019-03-14 Laura present y d 05-13 10:30:00 Jean-Claude 11:15: [id number] 00 Endo/Edgard knowledge/s Endo/Edgard Active 2018-04 Laura kill 05-13 [place] deficit: pt 11:15: [id number] 00 Endo/Edgard anti-coagul Endo/Edgard Active 2018-04 Laura ation 05-13 [place] therapy 11:15: [id number] 00 Elimination urinary Eliminatio Resolve 2018-042019-03-14 Laura incontinenc n d 05-13 10:30:00 [place] e 11:15: [id number] 00 Activity ADL Activity Resolve 2018-042019-03-14 Laura assistance d 05-13 10:30:00 [place] required 11:15: [id number] 00 Activity self-care Activity Resolve 2018-042019-03-14 Laura deficit d 2- 10:30:00 [place] 11:15: [id number] 00 Safety fall risk Safety Resolve 2018-042019-03-14 Laura factor d 2- 10:30:00 [place] present 11:15: [id number] 00 Safety can be left Safety Resolve 2018-042019-03-14 Laura alone for d 05-13 10:30:00 Jean-Claude only short 11:15: [id number] periods 00 Medication injectable Meds Resolve 2018-042019-03-12 Laura med d 05-13 11:15:00 Jean-Claude assistance 11:15: [id number] required 00 Allergies, Adverse Reactions, Alerts Allergy Name Allergy Status Severity Reaction(s) Onset Inactive Treating Comments Type Date Date Clinician bananas Unknown Active Unknown Reaction 2017-04 Roselyn Unknown 0-10 (Radha) Nithin [id number] keflex Unknown Active Unknown Reaction 2017-04 Roselyn Unknown 0-10 (Radha) Nithin [id number] nuts Unknown Active Unknown Reaction 2017-04 Roselyn Unknown 0-10 (Radha) Nithin [id number] Cipro Medication Active Unknown Reaction 2017-04 Sonia White Name ID Unknown 0-10 metronidazol Base Active Unknown Nausea and 2017-04 Roselyn e Ingredient vomiting 2-20 Guidelli [id number] Medications Ordered Filled Start Stop Current Ordering [...] Unknown mg capsule mg capsule 0-10 06-28 MDJamie Klor-Con Klor-Con No Shallish 1 Unknown [...] nded nded release release loperamide loperamide No Follett 1-2 Unknown 2 mg tablet 2 mg tablet Latanya DAVID T tabs ( 2 tabs after 1st loose stool, then 1 tab up to 4 tabs/da y) clotrimazol clotrimazol No Shallish 1 tab Unknown e 10 mg e 10 mg Jamie DAVID dissolv dutch dutch e in mouth docusate docusate 2017-04 No Shallish Unknown Unknown sodium 100 sodium 100 0-10 Jamie DAVID mg capsule mg capsule cyclobenzap cyclobenzap 2017-04 [...] nded nded release release Levemir Levemir 2017-04 2018 No Shallish Unknown Unknown FlexTouch FlexTouch 0-10 12-26 MD,Ajmie U-100 U-100 Insulin 100 Insulin 100 unit/mL (3 unit/mL (3 mL) mL) subcutaneou subcutaneou s pen s pen ondansetron ondansetron 2017-04 No Shallish Unknown Unknown 4 mg 4 mg 0- ,Jamie disintegrat disintegrat ing tablet ing tablet celecoxib celecoxib 2017-04 No Shallish Unknown Unknown 200 mg 200 mg 0- ,Jamie capsule capsule Miralax 17 Miralax 17 2017-04 [...] pen s pen testosteron testosteron 2017-04 No Follett Unknown Unknown e cypionate e cypionate 06-06 Latanya DAVID 200 mg/mL 200 mg/mL intramuscul intramuscul ar kit ar kit mometasone mometasone 2017-04 No [place] Unknown Unknown 0.1 % 0.1 % 06-06 Latanya DAVID topical topical cream cream finasteride finasteride 2017-04 No [place] Unknown Unknown 5 mg tablet 5 mg tablet 06-06 MD,Latanya Peggy Levemir Levemir 2017-04- [place] Unknown Unknown FlexTouch FlexTouch 06-06 ,Latanya Woods [...] Shallish Unknown Unknown hyclate 100 hyclate 100 0- MD,Jamie mg capsule mg capsule clindamycin clindamycin 2018-04- Yes Shallish Unknown Unknown HCl 300 mg HCl 300 mg 01-31 MD,Jamie capsule capsule Vital Signs Vital Name Observation Time Observation Value Comments SYSTOLIC mm[Hg] 2019-03-14 18:09:11 140 mm[Hg] mm[Hg] Method: Sit SYSTOLIC mm[Hg] 2018-01-23 18:02:16 122 mm[Hg] mm[Hg] Method: Stand DIASTOLIC mm[Hg] 2019-03-14 18:09:11 76 mm[Hg] mm[Hg] Method: Sit DIASTOLIC mm[Hg] 2018-01-23 18:02:16 60 mm[Hg] mm[Hg] Method: Stand PULSE 2019-03-14 18:09:11 68 /min /min RESP RATE 2019-03-14 18:09:11 16 /min /min TEMP 2019-03-14 18:09:11 98.2 [degF] Procedures This patient has no known procedures. Results This patient has no known results.
--- OUTSIDE RECORDS SUMMARY | 2019-04-11 14:39 | XMS REPORT ---
:1940 Author Organization [facility] Care Team Providers Name Role Phone Unavailable Unavailable Unavailable Problems Condition Condition Condition Status Onset Resolution Last Treating Comments Name Details Category Date Date Treatment Clinician Date Pain frequent Pain Mgmt Resolve 2017-042018-05-08 Roselyn pain d 0-10 08:50:00 (Radha) 11:15: Weller 00 [id number] Cardio edema Cardiovasc Resolve 2017-042018-02-20 Roselyn ular d 0-10 09:50:00 (Radha) 11:15: Weller 00 [id number] Respiratory dyspnea Respirator Resolve 2017-042018-02-15 Roselyn present y d 0-10 10:20:00 (Radha) 11:15: Weller 00 [id number] Endo/Edgard glucose Endo/Edgard Resolve 2017-042018-03-20 Roselyn testing d 0-10 12:30:00 (Radha) dependence 11:15: Weller 00 [id number] Endo/Edgard knowledge/s Endo/Edgard Resolve 2017-042018-03-06 Roselyn kill d 0-10 09:30:00 (Radha) deficit: pt 11:15: Weller 00 [id number] Endo/Edgard anti-coagul Endo/Edgard Resolve 2017-042018-03-20 Roselyn ation d 0-10 12:30:00 (Radha) therapy 11:15: Weller 00 [id number] Endo/Edgard diabetic Endo/Edgard Resolve 2017-042018-03-06 Roselyn foot care d 0-10 09:30:00 (Radha) 11:15: Weller 00 [id number] Sensory impaired Sensory Resolve 2017-042018-03-22 Roselyn hearing d 0-10 09:55:00 (Radha) 11:15: Weller 00 [id number] Integument pressure Integument Resolve 2017-042018-08-21 Roselyn ulcer d 0-10 12:45:00 (Radha) present 11:15: Weller [id number] Integument skin Integument Resolve 2017-042018-03-03 Roselyn integrity d 0-10 09:19:00 (Radha) risk 11:15: Weller [id number] Integument surgical Integument Resolve 2017-042018-03-03 Quality wound d 0-10 09:19:00 Realtime7 present 11:15: 00 Integument other wound Integument Resolve 2017-042018-03-03 Quality present d 0-10 09:19:00 Realtime7 11:15: 00 Elimination urinary Eliminatio Resolve 2017-042018-03-20 Roselyn incontinenc n d 0-10 12:30:00 (Radha) e 11:15: Weller [id number] Neuro confusion Neuro/Emot Resolve 2017-042018-03-22 Roselyn present ion d 0-10 09:55:00 (Radha) 11:15: Weller [id number] Neuro anxiety Neuro/Emot Resolve 2017-042018-03-22 Roselyn present ion d 0-10 09:55:00 (Radha) 11:15: Weller [id number] Neuro impaired Neuro/Emot Resolve 2017-042018-03-22 Roselyn decision-ma ion d 0-10 09:55:00 (Radha) pj 11:15: Weller [id number] Activity ADL Activity Resolve 2017-042018-03-22 Roselyn assistance d 0-10 09:55:00 (Radha) required 11:15: [id number] Safety structural Safety Resolve 2017-042018-03-22 Roselyn barriers d 0-10 09:55:00 (Radha) present 11:15: Weller [id number] Safety fall risk Safety Resolve 2017-042018-03-22 Roselyn factor d 0-10 09:55:00 (Radha) present 11:15: Weller [id number] Safety risk for Safety Resolve 2017-042018-03-22 Roselyn hospitaliza d 0-10 09:55:00 (Radha) tion 11:15: Weller [id number] Safety can be left Safety Resolve 2017-042018-03-22 Roselyn alone for d 0-10 09:55:00 (Radha) only short 11:15: Weller 00 [id number] Medication oral med Meds Resolve 2017-042018-02-06 Roselyn assistance d 0-10 09:15:00 (Radha) required 11:15: Weller [id number] Medication injectable Meds Resolve 2017-042018-02-06 Roselyn med d 0-10 09:15:00 (Radha) assistance 11:15: Weller required 00 [id number] Medication knowledge/s Meds Resolve 2017-042018-02-15 Roselyn kill d 0-10 10:20:00 (Radha) deficit: pt 11:15: Weller 00 [id number] Medication potential Meds Resolve 2017-042018-02-15 Roselyn clinically d 0-10 10:20:00 (Radha) significant 11:15: Weller medication 00 [id number] issue Musculoskel transfer Musculoske Resolve 2017-042018-03-20 Roselyn etal assistance letal d 0-10 12:30:00 (Radha) required 11:15: Weller [id number] Musculoskel requires Musculoske Resolve 2017-042018-03-20 Roselyn etal human letal d 0-10 12:30:00 (Radha) assist to 11:15: Weller leave home 00 [id number] Safety knowledge/s Safety Resolve 2017-042018-03-22 Laura kill d 0-12 09:55:00 Jean-Claude deficit: pt 10:00: [id number] 00 Respiratory knowledge/s Respirator Resolve 2017-042018-02-06 Laura kill y d 0-15 09:15:00 Jean[place]Cla[place] deficit: cg 10:00: [id number] 00 Respiratory lung sounds Respirator Resolve 2017-042018-02-06 Laura deficit y d 0-15 09:15:00 [place] 10:00: [id number] 00 Sensory impaired Sensory Resolve 2017-042018-03-22 Quality verbal d 0-17 09:55:00 Realtime7 communicati 18:36: on 42 Musculoskel knowledge/s Musculoske Resolve 2017-042018-03-03 Laura etal kill letal d 0-24 09:19:00 Jean[place]Claude deficit: cg 09:45: [id number] 00 Nutrition knowledge/s Nutrition Resolve 2017-042018-03-03 Laura kill d 0-26 09:19:00 [place] deficit: pt 09:15: [id number] 00 Nutrition nutritional Nutrition Resolve 2017-042018-03-03 Laura restriction d 09:19:00 [place] s 09:15: [id number] 00 Elimination catheter Eliminatio Resolve 2017-042018-03-20 Laura present n d 0 12:30:00 [place] 09:15: [id number] 00 Elimination constipatio Eliminatio Resolve 2017-042018-03-20 Laura n n d 0 12:30:00 Jean[place]Cla[place] 09:15: [id number] 00 Infection s/s of Infection Resolve 2017-042018-03-22 Laura infection d 0 09:55:00 Jean[place]Cla[place] 09:30: [id number] 00 Endo/Edgard insulin Endo/Edgard Resolve 2017-042018-03-20 Laura admn d 04-22 12:30:00 Jean[place]Cla[place] dependence 09:50: [id number] 00 Respiratory dyspnea Respirator Resolve 2017-042018-03-08 Laura present y d 04-24 09:20:00 [place] 10:07: [id number] 00 Safety cannot be Safety Resolve 2017-042018-03-22 Laura left alone d 04-24 09:55:00 [place]Cla[place] 10:07: [id number] 00 Cardio edema Cardiovasc Resolve 2017-042018-03-03 Laura ular d 04-26 09:19:00 Jean[place]Cla[place] 09:51: [id number] 00 Respiratory Incentive Respirator Resolve 2017-042018-03-03 Laura Spirometer y d 04-26 09:19:00 [place] /Acapella 09:51: [id number] Device 00 treatments in home Endo/Edgard knowledge/s Endo/Edgard Resolve 2017-042018-03-20 Laura kill d 05-08 12:30:00 [place] deficit: pt 09:20: [id number] 00 Nutrition knowledge/s Nutrition Resolve 2017-042018-04-19 Laura kill d 05-08 09:45:00 Jean[place]Cla[place] deficit: pt 09:20: [id number] 00 Nutrition nutritional Nutrition Resolve 2017-042018-04-19 Laura restriction d 05-08 09:45:00 Jean[place]Cla[place] s 09:20: [id number] 00 Endo/Edgard diabetic Endo/Edgard Resolve 2017-042018-03-20 Laura foot care d 2- 12:30:00 [place] 09:20: [id number] 00 Pain frequent Pain Mgmt Unknown 2017-04 Laura pain 2- Jean-Claude 12:45: [id number] 00 Respiratory dyspnea Respirator Resolve 2017-042018-03-20 Laura present y d 2 12:30:00 [place] 12:45: [id number] 00 Integument pressure Integument Unknown 2017-04 Laura ulcer 2- [place] present 12:45: [id number] 00 Integument surgical Integument Resolve 2017-042018-03-24 Laura wound d 2 11:23:00 Jean[place]Cla[place] present 12:45: [id number] 00 Endo/Edgard diabetic Endo/Edgard Resolve 2017-042018-03-24 Laura foot care d 05-23 11:23:00 [place] 09:55: [id number] 00 Elimination catheter Eliminatio Resolve 2017-042018-04-19 Laura present n d 05-23 09:45:00 [place] 09:55: [id number] 00 Safety risk for Safety Resolve 2017-042018-04-19 Laura hospitaliza d 2 09:45:00 [place]Cla[place] tion 11:23: [id number] 00 Safety can be left Safety Resolve 2017-042018-04-19 Laura alone for d 2- 09:45:00 Jean[place]Cla[place] only short 11:23: [id number] periods 00 Musculoskel knowledge/s Musculoske Resolve 2017-042018-03-29 Laura etal kill letal d - 09:30:00 Jean[place]Cla[place] deficit: cg 10:20: [id number] 00 Musculoskel requires Musculoske Resolve 2017-042018-04-12 Laura etal human letal d 2- 09:45:00 Jean-Claude assist to 10:20: [id number] leave home 00 Endo/Edgard diabetic Endo/Edgard Resolve 2017-042018-04-19 Laura foot care d 2- 09:45:00 Jean[place]Claude 09:30: [id number] 00 Elimination constipatio Eliminatio Resolve 2017-042018-04-12 Laura n n d 05-30 09:45:00 [place] 09:30: [id number] 00 Pain frequent Pain Mgmt Unknown 2017-04 Laura pain 06-06 [place] 09:45: [id number] 00 Endo/Edgard insulin Endo/Edgard Resolve 2017-042018-04-19 Laura admn d 06-06 09:45:00 Jean-Claude dependence 09:45: [id number] 00 Endo/Edgard anti-coagul Endo/Edgard Resolve 2017-042018-04-19 Laura ation d 06-06 09:45:00 [place] therapy 09:45: [id number] 00 Integument surgical Integument Resolve 2017-042018-04-05 Laura wound d 06-06 09:45:00 [place] present 09:45: [id number] 00 Integument skin Integument Resolve 2017-042018-04-05 Laura integrity d 06-06 09:45:00 Jean[place]Claude risk 09:45: [id number] 00 Integument pressure Integument Unknown 2017-04 Laura ulcer 06-06 Jean-Claude present 09:45: [id number] 00 Elimination UTI within Eliminatio Resolve 2017-042018-04-12 Laura past 14 n d 06-06 09:45:00 Jean-Claude days 09:45: [id number] 00 Activity ADL Activity Resolve 2017-042018-09-15 Laura assistance d 06-06 10:35:00 Jean[place]Cla[place] required 09:45: [id number] 00 Safety fall risk Safety Resolve 2017-042018-04-19 Laura factor d 06-06 09:45:00 [place] present 09:45: [id number] 00 Medication potential Meds Resolve 2017-042018-04-19 Laura clinically d 06-06 09:45:00 [place] significant 09:45: [id number] medication 00 issue Medication oral med Meds Resolve 2017-042018-04-05 Shari assistance d 06-06 09:45:00 Regeczi required 09:45: [id number] 00 Medication injectable Meds Resolve 2017-042018-08-09 Shari med d 06-06 09:20:00 Regeczi assistance 09:45: [id number] required 00 Musculoskel transfer Musculoske Resolve 2017-042018-04-12 Shari etal assistance letal d 06-06 09:45:00 Regeczi required 09:45: [id number] 00 Medication oral med Meds Resolve 2017-042018-04-19 Laura assistance d 06-08 09:45:00 [place] required 10:00: [id number] 00 Medication injectable Meds Unknown 2017-04 Laura med 06-08 Jean-Claude assistance 10:00: [id number] required 00 Sensory impaired Sensory Resolve 2017-042018-04-19 Nima verbal d 06-08 09:45:00 [place] communicati 15:20: [id number] on 00 Sensory impaired Sensory Resolve 2017-042018-04-19 Nima hearing d 06-08 09:45:00 [place] 15:20: [id number] 00 Medication injectable Meds Unknown 2017-04 Nhung med Pérez assistance 14:56: [id number] required 00 Medication injectable Meds Unknown Nima med 04-13 Graves assistance 13:50: [id number] required 00 Elimination constipatio Eliminatio Resolve 2018-04-19 Laura n n d 04-14 09:45:00 Jean[place]Claude 09:28: [id number] 00 Medication injectable Meds Unknown Laura med 04-17 Jean-Claude assistance 10:00: [id number] required 00 Medication injectable Meds Resolve 2018-04-19 Laura med d 04-19 09:45:00 Jean[place] assistance 09:45: [id number] required 00 Endo/Edgard anti-coagul Endo/Edgard Resolve 2018-04-26 Laura ation d 04-21 10:15:00 Jean-Claude therapy 09:45: [id number] 00 Nutrition knowledge/s Nutrition Resolve 2018-04-26 Alura kill d 04-21 10:15:00 [place] deficit: pt 09:45: [id number] 00 Nutrition nutritional Nutrition Resolve 2018-04-26 Laura restriction d 04-21 10:15:00 Jean-Claude s 09:45: [id number] 00 Elimination catheter Eliminatio Resolve 2018-04-26 Laura present n d 04-21 10:15:00 Jean[place]Claude 09:45: [id number] 00 Elimination constipatio Eliminatio Resolve 2018-04-26 Laura n n d 04-21 10:15:00 Jean[place]Claude 09:45: [id number] 00 Safety risk for Safety Resolve 2018-04-26 Laura hospitaliza d 1-11 10:15:00 [place] tion 09:45: [id number] 00 Safety can be left Safety Resolve 2018-04-26 Laura alone for d 1-11 10:15:00 [place] only short 09:45: [id number] periods 00 Sensory impaired Sensory Resolve 2018-04-26 Nima verbal d 1-11 10:15:00 [place] communicati 14:30: [id number] on 00 Sensory impaired Sensory Resolve 2018-04-26 Nima hearing d 1-11 10:15:00 [place] 14:30: [id number] 00 Sensory impaired Sensory Resolve 2018-04-28 Nima verbal d 1-17 10:20:00 [place] communicati 12:45: [id number] on 00 Sensory impaired Sensory Resolve 2018-04-28 Nima hearing d 1-17 10:20:00 [place] 12:45: [id number] 00 Endo/Edgard anti-coagul Endo/Edgard Resolve 2018-05-24 Laura ation d 1-18 12:30:00 [place] therapy 10:20: [id number] 00 Safety risk for Safety Active Laura hospitaliza - [place] tion 10:20: [id number] 00 Safety can be left Safety Resolve 2018-05-10 Laura alone for d 1- 13:45:00 Jean-Claude only short 10:10: [id number] Sensory impaired Sensory Resolve 2018-05-10 Jia hearing d 05-05 13:45:00 [place] 13:30: t 00 [id number] Sensory impaired Sensory Resolve 2018-05-10 Jia verbal d 1 13:45:00 [place] communicati 13:30: t on 00 [id number] Elimination catheter Eliminatio Resolve 2018-05-08 Wandy present n d 05-08 08:50:00 ,Kaylee 08:50: 00 Elimination constipatio Eliminatio Resolve 2018-06-28 Wandy n n d 05-08 09:45:00 ,Kaylee 08:50: 00 Safety cannot be Safety Resolve 2018-05-10 Laura left alone d 1- 13:45:00 [place] 08:50: [id number] 00 Elimination catheter Eliminatio Resolve 2018-05-12 Shari present n d 2- 09:30:00 Regeczi 09:30: [id number] 00 Safety can be left Safety Resolve 2018-05-17 Laura alone for d - 10:00:00 Jean-Claude only short 09:30: [id number] periods 00 Elimination urinary Eliminatio Resolve 2018-05-15 Laura incontinenc n d 05-15 08:45:00 Jean[place]Claude e 08:45: [id number] 00 Pain frequent Pain Mgmt Resolve 2018-05-17 Alura pain d 2-06 10:00:00 [place] 10:00: [id number] 00 Respiratory lung sounds Respirator Resolve 2018-05-22 Laura deficit y d 2-06 10:44:00 Jean-Claude 10:00: [id number] 00 Integument pressure Integument Unknown Laura ulcer 2-06 [place] present 10:00: [id number] 00 Integument skin Integument Resolve 2018-05-17 Laura integrity d 2-06 10:00:00 Jean-Claude risk 10:00: [id number] 00 Integument surgical Integument Resolve 2018-05-17 Laura wound d 2-06 10:00:00 Jean[place]Claude present 10:00: [id number] 00 Activity ADL Activity Unknown 2018- Laura assistance 2-06 [place] required 10:00: [id number] 00 Activity self-care Activity Resolve 2018-05-19 Laura deficit d 2-06 11:15:00 [place] 10:00: [id number] 00 Safety fall risk Safety Resolve 2018-05-19 Laura factor d 2-06 11:15:00 [place] present 10:00: [id number] 00 Elimination urinary Eliminatio Resolve 2018-05-24 [place] incontinenc n d 2- 12:30:00 Kaylee 11:15: 00 Safety can be left Safety Resolve 2018-05-24 Laura alone for d 2-08 12:30:00 Jean-Claude only short 11:15: [id number] periods 00 Safety fall risk Safety Resolve 2018-05-24 Sonia White factor d 2-12 12:30:00 present 09:48: 41 Endo/Edgard glucose Endo/Edgard Resolve 2018-05-24 Laura tolerance d 2-13 12:30:00 Jean-Claude problem 12:30: [id number] 00 Respiratory Incentive Respirator Resolve 2018-06-07 Laura Spirometer y d 2-15 12:00:00 [place] /Acapella 13:40: [id number] Device 00 treatments in home Endo/Edgard anti-coagul Endo/Edgard Resolve 2018-06-12 Laura ation d 2-15 09:30:00 [place] therapy 13:40: [id number] 00 Elimination urinary Eliminatio Resolve 2018-05-26 Laura incontinenc n d 2-15 13:40:00 Jean[place]Claude e 13:40: [id number] 00 Safety can be left Safety Resolve 2018-06-07 Laura alone for d 2-15 12:00:00 Jean[place]Claude only short 13:40: [id number] periods 00 Endo/Edgard glucose Endo/Edgard Resolve 2018-06-07 Cherrise tolerance d 2-22 12:00:00 Trixie problem 10:15: [id number] 00 Endo/Edgard insulin Endo/Edgard Resolve 2018-06-12 Cherrise admn d 2-22 09:30:00 [place] dependence 10:15: [id number] 00 Endo/Edgard glucose Endo/Edgard Resolve 2018-06-12 Cherrise testing d 2- 09:30:00 [place] dependence 10:15: [id number] 00 Safety fall risk Safety Resolve 2018-06-07 Cherrise factor d 2-22 12:00:00 [place] present 10:15: [id number] 00 Musculoskel transfer Musculoske Active Cherrise etal assistance letal 06-02 [place] required 10:15: [id number] 00 Musculoskel requires Musculoske Active Cherrise etal human letal 2 [place] assist to 10:15: [id number] leave home 00 Elimination urinary Eliminatio Resolve 2018-06-07 Luara incontinenc n d 06-05 12:00:00 Jean-Claude e 12:30: [id number] 00 Activity self-care Activity Resolve 2018-08-14 Laura deficit d 06-05 12:10:00 Jean[place] 12:30: [id number] 00 Elimination urinary Eliminatio Resolve 2018-06-12 Laura incontinenc n d 06-09 09:30:00 Jean[place]Claude e 09:13: [id number] 00 Safety can be left Safety Resolve 2018-06-12 Laura alone for d 06-09 09:30:00 Jean-Claude only short 09:13: [id number] periods 00 Respiratory Incentive Respirator Resolve 2018-06-14 Laura Spirometer y d 06-12 09:30:00 Jean-Claude /Acapemiguel 09:30: [id number] Device 00 treatments in home Endo/Edgard anti-coagul Endo/Edgard Resolve 2018-06-30 Laura ation d 06-14 09:19:00 [place] therapy 09:30: [id number] 00 Safety can be left Safety Resolve 2018-06-30 Laura alone for d 06-14 09:19:00 Jean-Claude alejo 09:30: [id number] periods 00 Elimination urinary Eliminatio Resolve 2018-06-19 Laura incontinenc n d 06-16 13:45:00 [place] e 09:45: [id number] 00 Elimination urinary Eliminatio Resolve 2018-06-28 Laura incontinenc n d 06-23 09:45:00 [place] e 13:15: [id number] 00 Elimination constipatio Eliminatio Resolve 2018-07-14 Laura n n d 06-30 09:20:00 [place] 09:19: [id number] 00 Endo/Edgard anti-coagul Endo/Edgard Resolve 2018-07-14 Laura ation d 07-03 09:20:00 Jean[place] therapy 12:49: [id number] 00 Elimination urinary Eliminatio Resolve 2018-07-14 Laura incontinenc n d 07-03 09:20:00 [place] e 12:49: [id number] 00 Safety can be left Safety Resolve 2018-08-18 Laura alone for d 07-07 12:05:00 Jean[place] only short 12:50: [id number] periods 00 Endo/Edgard glucose Endo/Edgard Resolve 2018-07-14 Shi testing d 07-10 09:20:00 Sorin, dependence 12:30: [id number] 00 Pain frequent Pain Mgmt Resolve 2018-07-14 Laura pain d 07-14 09:20:00 [place] 09:20: [id number] 00 Integument surgical Integument Resolve 2018-08-13 Laura wound d 07-14 12:50:00 [place] present 09:20: [id number] 00 Integument skin Integument Resolve 2018-08-13 Laura integrity d 07-14 12:50:00 Jean-Cla[place] risk 09:20: [id number] 00 Safety fall risk Safety Resolve 2018-08-18 Laura factor d 07-14 12:05:00 [place] present 09:20: [id number] 00 Endo/Edgard anti-coagul Endo/Edgard Resolve 2018-08-14 Laura ation d 07-17 12:10:00 Jean[place] therapy 13:00: [id number] 00 Elimination urinary Eliminatio Resolve 2018-07-21 Laura incontinenc n d 07-17 09:25:00 [place] e 13:00: [id number] 00 Activity ADL Activity Unknown Laura assistance 07-17 Jean[place]Cla[place] required 13:00: [id number] 00 Elimination urinary Eliminatio Resolve 2018-08-14 Laura incontinenc n d 07-24 12:10:00 [place] e 09:27: [id number] 00 Pain frequent Pain Mgmt Resolve 2018 Laura pain d 08-07 09:20:00 Jean[place] 12:45: [id number] 00 Cardio edema Cardiovasc Resolve 2018 Laura ular d 08-07 09:20:00 [place] 12:45: [id number] 00 Respiratory dyspnea Respirator Resolve 2018 Laura present y d 08-07 09:20:00 Jean[place] 12:45: [id number] 00 Endo/Edgard diabetic Endo/Edgard Resolve 2018-08-14 Laura foot care d 08-07 12:10:00 Jean[place] 12:45: [id number] 00 Nutrition knowledge/s Nutrition Active Laura kill 08-07 Jean-Claude deficit: pt 12:45: [id number] 00 Nutrition nutritional Nutrition Active Laura restriction 08-07 Jean-Claude s 12:45: [id number] 00 Neuro confusion Neuro/Emot Resolve 2018-08-14 Laura present ion d 08-07 12:10:00 Jean[place] 12:45: [id number] 00 Medication oral med Meds Resolve 2018 Laura assistance d 08-07 09:20:00 [place] required 12:45: [id number] 00 Medication injectable Meds Resolve 2018 Jia med d 08-07 09:20:00 Jerardo assistance 12:45: [id number] required 00 Cardio edema Cardiovasc Resolve 2018-08-23 Laura ular d 08-13 11:15:00 Jean[place] 12:50: [id number] 00 Respiratory dyspnea Respirator Resolve 2018-08-14 Laura present y d 08-13 12:10:00 [place] 12:50: [id number] 00 Endo/Edgard anti-coagul Endo/Edgard Resolve 2018-08-28 Laura ation d 08-16 12:00:00 Jean[place]Cla[place] therapy 12:15: [id number] 00 Elimination urinary Eliminatio Resolve 2018-08-21 Laura incontinenc n d 08-16 12:45:00 Jean[place] e 12:15: [id number] 00 Sensory impaired Sensory Resolve 2018-08-21 Krystyna verbal d 08-17 12:45:00 [place] communicati 14:30: [id number] on 00 Sensory impaired Sensory Resolve 2018-08-21 Krystyna hearing d 08-17 12:45:00 [place] 14:30: [id number] 00 Social financial LILLIAN: Resolve 2019-02-16 Krystyna Services resource Social d 08-17 13:45:00 [place] deficit Services 14:30: [id number] 00 Social knowledge/s LILLIAN: Resolve 2018-08-17 Krystyna Services kill Social d 08-17 14:30:00 [place] deficit - Services 14:30: [id number] pt 00 Social knowledge/s LILLIAN: Resolve 2018-08-17 Krystyna Services kill Social d 08-17 14:30:00 [place] deficit - Services 14:30: [id number] cg 00 Safety can be left Safety Resolve 2018-09-07 Laura alone for d 5-15 10:00:00 Jean-Claude cruz short 11:15: [id number] periods 00 Social knowledge/s LILLIAN: Active Laura Services kill Social 08-23 Jean-Claude deficit - Services 11:15: [id number] pt 00 Elimination urinary Eliminatio Resolve 2018-09-07 Laura incontinenc n d 08-25 10:00:00 Jean-Claude e 11:45: [id number] 00 Sensory impaired Sensory Resolve 2018-09-07 Krystyna verbal d 09-01 [facility]:00[facility] 14[facility]: [id number] on 00 Sensory impaired Sensory Resolve 2018-09-07 Krystyna hearing d 09-01 10:00:00 [facility] 14:45: [id number] 00 Social knowledge/s LILLIAN: Active Krystyna Services kill Social 09-01 [place] deficit - Services 14:45: [id number] cg 00 Respiratory dyspnea Respirator Resolve 2018-09-15 Laura present y d 09-07 10:35:00 Jean-Claude 10:00: [id number] 00 Pain frequent Pain Mgmt Resolve 2018-09-11 Laura pain d 09-11 11:50:00 Jean[place]Cla[place] 11:50: [id number] 00 Cardio hypertensio Cardiovasc Resolve 2018-09-11 Laura n ular d 09-11 11:50:00 Jean[place] 11:50: [id number] 00 Integument pressure Integument Resolve 2018-09-15 Laura ulcer d 6 10:35:00 Jean[place]Cla[place] present 11:50: [id number] 00 Integument surgical Integument Resolve 2018-09-15 Laura wound d 6-03 10:35:00 Jean[place]Cla[place] present 11:50: [id number] 00 Integument skin Integument Resolve 2018-09-15 Laura integrity d 09-11 10:35:00 Jean[place] risk 11:50: [id number] 00 Elimination urinary Eliminatio Resolve 2018-09-11 Laura incontinenc n d 09-11 11:50:00 [place] e 11:50: [id number] 00 Activity ADL Activity Unknown Laura assistance 09-11 Jean-Cla[place] required 11:50: [id number] 00 Activity self-care Activity Resolve 2018-09-15 Laura deficit d 09-11 10:35:00 Jean[place] 11:50: [id number] 00 Safety fall risk Safety Resolve 2018-09-15 Laura factor d 09-11 10:35:00 Jean[place] present 11:50: [id number] 00 Safety can be left Safety Resolve 2018-09-15 Laura alone for d 09-11 10:35:00 Jean[place]Cla[place] only short 11:50: [id number] periods 00 Endo/Edgard anti-coagul Endo/Edgard Resolve 2018-09-18 Laura ation d 09-15 12:20:00 [place] therapy 10:35: [id number] 00 Elimination urinary Eliminatio Resolve 2018-09-18 Laura incontinenc n d 09-15 12:20:00 Jean[place] e 10:35: [id number] 00 Elimination constipatio Eliminatio Resolve 2018-09-18 Laura n n d 09-15 12:20:00 Jean[place] 10:35: [id number] 00 Safety can be left Safety Resolve 2018-09-25 Laura alone for d 610 11:45:00 Jean-Claude only short 12:20: [id number] periods 00 Cardio hypertensio Cardiovasc Resolve 2018-09-21 Laura n ular d 09-21 11:45:00 Jean[place]Claude 11:45: [id number] 00 Endo/Edgard anti-coagul Endo/Edgard Resolve 2018-09-25 Laura ation d 09-21 11:45:00 [place] therapy 11:45: [id number] 00 Cardio hypertensio Cardiovasc Resolve 2018-10-02 Laura n ular d 6- 12:05:00 Jean[place]ude 11:45: [id number] 00 Elimination urinary Eliminatio Resolve 2018-10-02 Laura incontinenc n d 6 12:05:00 Jean[place]Cla[place] e 11:45: [id number] 00 Endo/Edgard anti-coagul Endo/Edgard Resolve 2018-10-02 Laura ation d 09-29 12:05:00 Jean-Claude therapy 09:45: [id number] 00 Safety can be left Safety Resolve 2018-10-02 Laura alone for d 09-29 12:05:00 Jean[place]Cla[place] only short 09:45: [id number] 00 Endo/Edgard anti-coagul Endo/Edgard Resolve 2018-10-27 Laura ation d 10-04 11:30:00 Jean[place] therapy 10:10: [id number] 00 Elimination urinary Eliminatio Resolve 2018-10-06 Laura incontinenc n d 10-04 09:10:00 Jean[place] e 10:10: [id number] 00 Elimination constipatio Eliminatio Resolve 2018-10-06 Laura n n d 10-04 09:10:00 Jean[place] 10:10: [id number] 00 Safety can be left Safety Resolve 2018-10-06 Laura alone for d 10-04 09:10:00 [place] only short 10:10: [id number] Sensory impaired Sensory Resolve 2018-10-23 Krystyna verbal d 10-05 11:56:00 [place] communicati 15:00: [id number] on 00 Sensory impaired Sensory Resolve 2018-10-23 Krystyna hearing d 10-05 11:56:00 [place] 15:00: [id number] 00 Elimination urinary Eliminatio Resolve 2018-10-27 Laura incontinenc n d 10-09 11:30:00 Jean-Claude butler 12:15: [id number] 00 Elimination bloody Eliminatio Resolve 2018-10-27 Laura urine n d 10-09 11:30:00 Jean-Claude 12:15: [id number] 00 Safety can be left Safety Resolve 2018-10-23 Laura alone for d 10-09 11:56:00 Jean-Claude only short 12:15: [id number] periods Elimination constipatio Eliminatio Resolve 2018-12-08 Laura n n d 10-16 14:00:00 Jean-Claude 12:35: [id number] 00 Cardio edema Cardiovasc Resolve 2018-10-27 Laura ular d 10-20 11:30:00 Jean-Claude 11:35: [id number] 00 Endo/Edgard knowledge/s Endo/Edgard Resolve 2018-10-27 Laura kill d 10-20 11:30:00 Jean[place]Cla[place] deficit: pt 11:35: [id number] 00 Sensory impaired Sensory Unknown Jonatan verbal 7-15 Demarco, communicati 13:30: PT on [id number] Sensory impaired Sensory Unknown Jonatan hearing 15 Demarco, 13:30: PT [id number] Safety can be left Safety Resolve 2018-10-27 Laura alone for d 10-25 11:30:00 Jean-Claude cruz short 10:35: [id number] 00 Endo/Edgard glucose Endo/Edgard Resolve 2018-12-11 Cherrise tolerance d 10-30 09:30:00 Trixie problem 11:55: [id number] 00 Endo/Edgard insulin Endo/Edgard Resolve 2018-12-13 Cherrise admn d 10-30 11:10:00 Trixie dependence 11:55: [id number] 00 Endo/Edgard glucose Endo/Edgard Resolve 2018-12-13 Cherrise testing d 10-30 11:10:00 Trixie dependence 11:55: [id number] 00 Endo/Edgard knowledge/s Endo/Edgard Resolve 2018-12-08 Cherrise kill d 10-30 14:00:00 [place] deficit: pt 11:55: [id number] 00 Elimination urinary Eliminatio Resolve 2018-12-08 Cherrise urgency n d 10-30 14:00:00 Trixie 11:55: [id number] 00 Neuro depressive Neuro/Emot Resolve 2018-12-08 Cherrise feelings ion d 10-30 14:00:00 Trixie present 11:55: [id number] 00 Neuro impaired Neuro/Emot Resolve 2018-12-08 Cherrise decision-ma ion d 10-30 14:00:00 [place] pj 11:55: [id number] 00 Safety fall risk Safety Resolve 2018-12-06 Cherrise factor d 10-30 13:05:00 [place] present 11:55: [id number] 00 Endo/Edgard anti-coagul Endo/Edgard Resolve 2018-12-13 Shi ation d 11-01 11:10:00 Sorin, therapy 12:30: [id number] 00 Respiratory Incentive Respirator Resolve 2018-11-29 Cherrise Spirometer y d 11-03 10:15:00 Trixie /Acapella 10:25: [id number] Device 00 treatments in home Elimination urinary Eliminatio Resolve 2018-12-08 Cherrise frequency n d 11-03 14:00:00 [place] 10:25: [id number] 00 Respiratory lung sounds Respirator Resolve 2018-11-29 Cherrise deficit y d 11-06 10:15:00 Trixie 12:05: [id number] 00 Neuro memory Neuro/Emot Resolve 2018-12-08 Cherrise deficit ion d 11-08 14:00:00 [place] needing 10:30: [id number] supervision 00 Pain frequent Pain Mgmt Resolve 2018-12-06 Shi pain d 11-10 13:05:00 Sorin, 11:00: [id number] 00 Integument pressure Integument Active Shi ulcer 11-10 Sorin, present 11:00: [id number] 00 Integument surgical Integument Active 2018- Shi wound 11-10 Sorin, present 11:00: [id number] 00 Integument skin Integument Active 2018- Shi integrity 11-10 Sorin, risk 11:00: [id number] 00 Elimination urinary Eliminatio Resolve 2018-12-08 Shi incontinenc n d 11-10 14:00:00 Sorin, e 11:00: [id number] 00 Activity self-care Activity Resolve 2018-11-29 Shi deficit d 11-10 10:15:00 Sorin, 11:00: [id number] 00 Activity ADL Activity Resolve 2018-12-08 Shi assistance d 11-10 14:00:00 Sorin, required 11:00: [id number] 00 Pain knowledge/s Pain Mgmt Resolve 2018-12-06 Krystyna kill d 11-16 13:05:00 [place] deficit: cg 15:15: [id number] 00 Respiratory knowledge/s Respirator Resolve 2018-11-29 Krystyna kill y d 11-16 10:15:00 [place] deficit: cg 15:15: [id number] 00 Integument knowledge/s Integument Active Krystyna kill 11-16 [place] deficit: cg 15:15: [id number] 00 Elimination knowledge/s Eliminatio Resolve 2018-12-08 Krystyna kill n d 11-16 14:00:00 [place] deficit: cg 15:15: [id number] 00 Safety knowledge/s Safety Resolve 2018-12-06 Krystyna kill d 11-16 13:05:00 [place] deficit: cg 15:15: [id number] 00 Cardio hypertensio Cardiovasc Resolve 2018-11-29 Lenny jarvis joseph d 11-17 10:15:00 [place] 10:45: [id number] 00 Safety can be left Safety Resolve 2018-12-08 Shi alone for d 11-22 14:00:00 nancy Rowell short 11:00: [id number] periods 00 Sensory impaired Sensory Resolve 2018-12-08 Laura verbal d 11-24 14:00:00 Jean-Claude communicati 09:30: [id number] on 00 Sensory impaired Sensory Resolve 2018-12-08 Laura hearing d 11-24 14:00:00 Jean-Claude 09:30: [id number] 00 Respiratory knowledge/s Respirator Resolve 2018-12-08 Laura kill y d 12-01 14:00:00 [place] deficit: cg 09:30: [id number] 00 Sensory impaired Sensory Unknown Krystyna verbal 8 [place] communicati 15:00: [id number] on 00 Sensory impaired Sensory Unknown Krystyna hearing 12-08 [place] 15:00: [id number] 00 Respiratory knowledge/s Respirator Resolve 2018-12-13 Laura kill y d 12-11 11:10:00 Jean[place] deficit: cg 09:30: [id number] 00 Endo/Edgard knowledge/s Endo/Edgard Resolve 2018-12-13 Laura kill d 12-11 11:10:00 [place] deficit: pt 09:30: [id number] 00 Elimination urinary Eliminatio Resolve 2018-12-15 Laura incontinenc n d 12-11 13:10:00 Jean-Claude e 09:30: [id number] 00 Safety can be left Safety Resolve 2018-12-15 Laura alone for d 12-11 13:10:00 [place] only short 09:30: [id number] 00 Endo/Edgard knowledge/s Endo/Edgard Resolve 2019-01-05 Laura kill d 12-15 11:00:00 [place] deficit: pt 13:10: [id number] 00 Endo/Edgard anti-coagul Endo/Edgard Resolve 2019-01-05 Laura ation d 12-15 11:00:00 Jean-Claude therapy 13:10: [id number] 00 Elimination urinary Eliminatio Resolve 2018-12-27 Laura incontinenc n d 12-18 09:20:00 Jean-Claude e 12:10: [id number] 00 Safety can be left Safety Resolve 2019-01-05 Laura alone for d 12-18 11:00:00 Jean[place] only short 12:10: [id number] periods 00 Elimination constipatio Eliminatio Resolve 2019-01-05 Laura n n d 12-20 11:00:00 Jean[place]Claude 12:15: [id number] 00 Pain frequent Pain Mgmt Resolve 2019-01-15 Laura pain d 12-27 12:30:00 Jean-Claude 09:20: [id number] 00 Respiratory dyspnea Respirator Resolve 2019-01-05 Laura present y d 12-27 11:00:00 Jean-Claude 09:20: [id number] 00 Endo/Edgard diabetic Endo/Edgard Resolve 2019-01-05 Laura foot care d 9 11:00:00 Jean-Claude 09:20: [id number] 00 Elimination diarrhea Eliminatio Resolve 2019-01-05 Laura n d 18 11:00:00 Jean-Claude 09:20: [id number] 00 Neuro confusion Neuro/Emot Resolve 2019-01-05 Laura present ion d 12-27 11:00:00 Jean-Claude 09:20: [id number] 00 Neuro anxiety Neuro/Emot Resolve 2019-01-05 Laura present ion d 12-27 11:00:00 Jean-Claude 09:20: [id number] 00 Activity ADL Activity Resolve 2019-01-05 Laura assistance d 12-27 11:00:00 Jean-Cla[place] required 09:20: [id number] 00 Activity self-care Activity Resolve 2019-01-05 Laura deficit d 12-27 11:00:00 Jean-Claude 09:20: [id number] 00 Safety fall risk Safety Resolve 2019-01-05 Laura factor d 12-27 11:00:00 Jean[place]Cla[place] present 09:20: [id number] 00 Medication potential Meds Resolve 2019-01-05 Laura clinically d 12-27 11:00:00 [place] significant 09:20: [id number] medication 00 issue Elimination urinary Eliminatio Resolve 2019-01-05 Laura incontinenc n d 12-29 11:00:00 Jean-Claude e 11:20: [id number] 00 Endo/Edgard knowledge/s Endo/Edgard Resolve 2019-01-10 Laura kill d 01-08 10:00:00 [place] deficit: pt 11:30: [id number] 00 Endo/Edgard anti-coagul Endo/Edgard Resolve 2019-01-10 Laura ation d 01-08 10:00:00 [place] therapy 11:30: [id number] 00 Elimination urinary Eliminatio Resolve 2019-01-15 Laura incontinenc n d 01-08 12:30:00 [place] e 11:30: [id number] 00 Safety can be left Safety Resolve 2019-02-16 Laura alone for d 9-30 12:00:00 [place] only short 11:30: [id number] periods 00 Respiratory dyspnea Respirator Resolve 2018-042019-01-26 Laura present y d 0-02 10:00:00 Jean-Claude 10:00: [id number] 00 Activity ADL Activity Resolve 2018-042019-01-12 Laura assistance d 0-02 11:30:00 [place] required 10:00: [id number] 00 Activity self-care Activity Resolve 2018-042019-01-12 Laura deficit d 0-02 11:30:00 [place] 10:00: [id number] 00 Safety fall risk Safety Resolve 2018-042019-01-12 Laura factor d 0-02 11:30:00 Jean-Claude present 10:00: [id number] 00 Medication injectable Meds Resolve 2018-042019-01-17 Laura med d 0-02 09:45:00 Jean[place] assistance 10:00: [id number] required 00 Endo/Egdard knowledge/s Endo/Edgard Resolve 2018-042019-01-15 Laura kill d 0-04 12:30:00 Jean[place] deficit: pt 11:30: [id number] 00 Endo/Edgard anti-coagul Endo/Edgard Resolve 2018-042019-01-15 Laura ation d 0-04 12:30:00 [place] therapy 11:30: [id number] 00 Elimination constipatio Eliminatio Resolve 2018-042019-01-15 Laura n n d 0-04 12:30:00 Jean-Claude 11:30: [id number] 00 Sensory impaired Sensory Resolve 2018-042019-01-15 Krystyna verbal d 0-04 12:30:00 Kathy communicati 15:30: [id number] on 00 Sensory impaired Sensory Resolve 2018-042019-01-15 Krystyna hearing d 0-04 12:30:00 [place] 15:30: [id number] 00 Infection s/s of Infection Resolve 2018-042019-03-09 Laura infection d 0-07 11:00:00 Jean-Claude 12:30: [id number] 00 Sensory impaired Sensory Resolve 2018-042019-01-22 Jonatan verbal d 0-08 11:00:00 ambrosio Pal 13:00: PT on 00 [id number] Sensory impaired Sensory Resolve 2018-042019-01-22 Jonatan hearing d 0-08 11:00:00 Demarco, 13:00: PT 00 [id number] Endo/Edgard knowledge/s Endo/Edgard Resolve 2018-042019-02-07 Laura kill d 0-09 11:20:00 [place] deficit: pt 09:45: [id number] 00 Endo/Edgard anti-coagul Endo/Edgard Resolve 2018-042019-02-07 Laura ation d 0-09 11:20:00 Jean-Cla[place] therapy 09:45: [id number] 00 Elimination urinary Eliminatio Resolve 2018-042019-02-02 Laura incontinenc n d 0-09 11:30:00 Jean-Claude e 09:45: [id number] 00 Elimination constipatio Eliminatio Resolve 2018-042019-02-02 Laura n n d 0-16 11:30:00 Jean-Claude 10:00: [id number] 00 Sensory impaired Sensory Resolve 2018-042019-01-31 Jonatan verbal d 0-17 11:10:00 Demarco, communicflorentino 15:00: PT on 00 [id number] Sensory impaired Sensory Resolve 2018-042019-01-31 Jonatan hearing d 0-17 11:10:00 Demarco, 15:00: PT 00 [id number] Pain frequent Pain Mgmt Resolve 2018-042019-02-16 Jonatan pain d 0-23 12:00:00 Demarco, 13:00: PT 00 [id number] Sensory impaired Sensory Unknown 2018-04 Jonatan verbal 0-23 Demarco, communicati 13:00: PT on 00 [id number] Sensory impaired Sensory Unknown 2018-04 Jonatan hearing 0-23 Demarco, 13:00: PT 00 [id number] Respiratory dyspnea Respirator Resolve 2018-042019-02-07 Laura present y d 0-25 11:20:00 [place] 11:30: [id number] 00 Elimination urinary Eliminatio Resolve 2018-042019-02-07 Laura incontinenc n d 0-28 11:20:00 [place] e 12:40: [id number] 00 Endo/Edgard knowledge/s Endo/Edgard Resolve 2018-042019-02-19 Laura kill d 1 12:40:00 [place] deficit: pt 12:30: [id number] 00 Endo/Edgard anti-coagul Endo/Edgard Resolve 2018-042019-02-19 Laura ation d 04-11 12:40:00 [place] therapy 12:30: [id number] 00 Elimination urinary Eliminatio Resolve 2018-042019-02-16 Laura incontinenc n d 04-11 12:00:00 [place] e 12:30: [id number] 00 Medication potential Meds Resolve 2018-042019-02-24 Laura clinically d 04-14 09:45:00 [place] significant 12:20: [id number] medication 00 issue Elimination constipatio Eliminatio Resolve 2018-042019-02-16 Laura n n d 04-16 12:00:00 Jean-Claude 11:20: [id number] 00 Elimination urinary Eliminatio Resolve 2018-042019-02-24 Laura incontinenc n d 04-21 09:45:00 Jean-Claude e 12:40: [id number] 00 Safety can be left Safety Resolve 2018-042019-02-24 Laura alone for d 04-21 09:45:00 Jean-Claude only short 12:40: [id number] periods 00 Endo/Edgard knowledge/s Endo/Edgard Resolve 2018-042019-02-24 Laura kill d 04-23 09:45:00 Jean[place] deficit: pt 12:05: [id number] 00 Endo/Edgard anti-coagul Endo/Edgard Resolve 2018-042019-02-24 Laura ation d 04-23 09:45:00 Jean-Claude therapy 12:05: [id number] 00 Sensory impaired Sensory Resolve 2018-042019-02-26 Laura verbal d 04-26 13:20:00 Jean-Claude communicati 09:45: [id number] on 00 Sensory impaired Sensory Resolve 2018-042019-02-26 Laura hearing d 04-26 13:20:00 [place] 09:45: [id number] 00 Endo/Edgard knowledge/s Endo/Edgard Resolve 2018-042019-02-28 Laura kill d 04-28 11:15:00 Jean-Cla[place] deficit: pt 13:20: [id number] 00 Endo/Edgard anti-coagul Endo/Edgard Resolve 2018-042019-02-28 Laura ation d 04-28 11:15:00 [place] therapy 13:20: [id number] 00 Elimination urinary Eliminatio Resolve 2018-042019-03-09 Laura incontinenc n d 04-28 11:00:00 [place] e 13:20: [id number] 00 Safety can be left Safety Resolve 2018-042019-03-05 Laura alone for d 04-28 12:45:00 [place] only short 13:20: [id number] periods 00 Endo/Edgard knowledge/s Endo/Edgard Resolve 2018-042019-03-09 Laura kill d 05-05 11:00:00 [place] deficit: pt 12:45: [id number] 00 Endo/Edgard anti-coagul Endo/Edgard Resolve 2018-042019-03-09 Laura ation d 05-05 11:00:00 [place] therapy 12:45: [id number] 00 Safety can be left Safety Resolve 2018-042019-03-09 Laura alone for d 05-07 11:00:00 [place] only short 11:25: [id number] Sensory impaired Sensory Resolve 2018-042019-03-12 Krystyna verbal d 05-09 11:15:00 [place] communicati 12:00: [id number] on 00 Sensory impaired Sensory Resolve 2018-042019-03-12 Krystyna hearing d 05-09 11:15:00 [place] 12:00: [id number] 00 Social financial LILLIAN: Active 2018-04 Krystyna Services resource Social 05-09 [facility] deficit Services 12:00: [id number] 00 Respiratory dyspnea Respirator Resolve 2018-042019-03-14 Laura present y d 05-13 10:30:00 Jean-Claude 11:15: [id number] 00 Endo/Edgard knowledge/s Endo/Edgard Active 2018-04 Laura kill 05-13 [place] deficit: pt 11:15: [id number] 00 Endo/Edgard anti-coagul Endo/Edgard Active 2018-04 Laura ation 05-13 [place] therapy 11:15: [id number] 00 Elimination urinary Eliminatio Resolve 2018-042019-03-14 Laura incontinenc n d 05-13 10:30:00 [place] e 11:15: [id number] 00 Activity ADL Activity Resolve 2018-042019-03-14 Luara assistance d 05-13 10:30:00 [place] required 11:15: [id number] 00 Activity self-care Activity Resolve 2018-042019-03-14 Laura deficit d 2- 10:30:00 [place] 11:15: [id number] 00 Safety fall risk Safety Resolve 2018-042019-03-14 Laura factor d 2- 10:30:00 [place] present 11:15: [id number] 00 Safety can be left Safety Resolve 2018-042019-03-14 Laura alone for d 05-13 10:30:00 Jean-Claude only short 11:15: [id number] periods 00 Medication injectable Meds Resolve 2018-042019-03-12 Laura med d 05-13 11:15:00 Jean[place] assistance 11:15: [id number] required 00 Allergies, Adverse Reactions, Alerts Allergy Name Allergy Status Severity Reaction(s) Onset Inactive Treating Comments Type Date Date Clinician bananas Unknown Active Unknown Reaction 2017-04 Roselyn Unknown 0-10 (Radha) Nithin [id number] keflex Unknown Active Unknown Reaction 2017-04 Roselyn Unknown 0-10 (Radha) Nithin [id number] nuts Unknown Active Unknown Reaction 2017-04 Roselyn Unknown 0-10 (Radha) Nithin [id number] Cipro Medication Active Unknown Reaction 2017-04 Sonia White Name ID Unknown 0-10 metronidazol Base Active Unknown Nausea and 2017-04 Roselyn e Ingredient vomiting 2-20 Guidelli [id number] Medications Ordered Filled Start Stop Current Ordering [...] nded nded release release loperamide loperamide No [place] 1-2 Unknown 2 mg tablet 2 mg [...] Shallish Unknown Unknown Chondroitin Chondroitin 0-10 06-28 MD,Jamei PLUS 375 PLUS 375 mg-100 mg-100 mg-36 [...] Unknown Unknown 200 mg 200 mg 0- ,Ajmie capsule capsule Miralax 17 Miralax 17 2017-04 [...] pen s pen testosteron testosteron 2017-04 No [place] Unknown Unknown e cypionate e cypionate 06-06 Latanya DAVID 200 mg/mL 200 mg/mL intramuscul intramuscul ar kit ar kit mometasone mometasone 2017-04 No [place] Unknown Unknown 0.1 % 0.1 % 06-06 Latanya DAVID topical topical cream cream finasteride finasteride 2017-04 No [place] Unknown Unknown 5 mg tablet 5 mg tablet 06-06 MD,Latanya Peggy Levemir Levemir 2017-04- [place] Unknown Unknown FlexTouch FlexTouch 06-06 ,Latanya Woods [...]
--- OUTSIDE RECORDS SUMMARY | 2019-04-11 14:40 | XMS REPORT ---
:1940 Author Organization [facility] Care Team Providers Name Role Phone Unavailable Unavailable Unavailable Problems Condition Condition Condition Status Onset Resolution Last Treating Comments Name Details Category Date Date Treatment Clinician Date Pain frequent Pain Mgmt Resolve 2017-042018-05-08 Roselyn pain d 0-10 08:50:00 (Radha) 11:15: Weller 00 [id number] Cardio edema Cardiovasc Resolve 2017-042018-02-20 Roselyn ular d 0-10 09:50:00 (Radha) 11:15: Weller 00 [id number] Respiratory dyspnea Respirator Resolve 2017-042018-02-15 Roseyln present y d 0-10 10:20:00 (Radha) 11:15: Weller 00 [id number] Endo/Edgard glucose Endo/Edgard Resolve 2017-042018-03-20 Roselyn testing d 0-10 12:30:00 (Radha) dependence 11:15: Weller 00 [id number] Endo/Edgard knowledge/s Endo/Edgard Resolve 2017-042018-03-06 Roselyn kill d 0-10 09:30:00 (Radha) deficit: pt 11:15: Weller 00 [id number] Endo/Edgard anti-coagul Endo/Edgard Resolve 2017-042018-03-20 Roselyn ation d 0-10 12:30:00 (Radha) therapy 11:15: Weller 00 [id number] Endo/Edgard diabetic Endo/Edgard Resolve 2017-042018-03-06 Roselyn foot care d 0-10 09:30:00 (Radha) 11:15: Weller 00 [id number] Sensory impaired Sensory Resolve 2017-042018-03-22 Roselyn hearing d 0-10 09:55:00 (Radha) 11:15: Weller 00 [id number] Integument pressure Integument Resolve 2017-042018-08-21 Roselyn ulcer d 0-10 12:45:00 (Radha) present 11:15: Weller [id number] Integument skin Integument Resolve 2017-042018-03-03 Roselyn integrity d 0-10 09:19:00 (Radha) risk 11:15: Weller [id number] Integument surgical Integument Resolve 2017-042018-03-03 Quality wound d 0-10 09:19:00 Realtime7 present 11:15: 00 Integument other wound Integument Resolve 2017-042018-03-03 Quality present d 0-10 09:19:00 Realtime7 11:15: 00 Elimination urinary Eliminatio Resolve 2017-042018-03-20 Roselyn incontinenc n d 0-10 12:30:00 (Radha) e 11:15: Weller [id number] Neuro confusion Neuro/Emot Resolve 2017-042018-03-22 Roselyn present ion d 0-10 09:55:00 (Radha) 11:15: Weller [id number] Neuro anxiety Neuro/Emot Resolve 2017-042018-03-22 Roselyn present ion d 0-10 09:55:00 (Radha) 11:15: Weller [id number] Neuro impaired Neuro/Emot Resolve 2017-042018-03-22 Roselyn decision-ma ion d 0-10 09:55:00 (Radha) pj 11:15: Weller [id number] Activity ADL Activity Resolve 2017-042018-03-22 Roselyn assistance d 0-10 09:55:00 (Radha) required 11:15: [id number] Safety structural Safety Resolve 2017-042018-03-22 Roselyn barriers d 0-10 09:55:00 (Radha) present 11:15: Weller [id number] Safety fall risk Safety Resolve 2017-042018-03-22 Roselyn factor d 0-10 09:55:00 (Radha) present 11:15: Weller [id number] Safety risk for Safety Resolve 2017-042018-03-22 Roselyn hospitaliza d 0-10 09:55:00 (Radha) tion 11:15: Weller [id number] Safety can be left Safety Resolve 2017-042018-03-22 Roselyn alone for d 0-10 09:55:00 (Radha) only short 11:15: Weller 00 [id number] Medication oral med Meds Resolve 2017-042018-02-06 Roselyn assistance d 0-10 09:15:00 (Radha) required 11:15: Weller [id number] Medication injectable Meds Resolve 2017-042018-02-06 Roselyn med d 0-10 09:15:00 (Radha) assistance 11:15: Weller required 00 [id number] Medication knowledge/s Meds Resolve 2017-042018-02-15 Roselyn kill d 0-10 10:20:00 (Radha) deficit: pt 11:15: Weller 00 [id number] Medication potential Meds Resolve 2017-042018-02-15 Roselyn clinically d 0-10 10:20:00 (Radha) significant 11:15: Weller medication 00 [id number] issue Musculoskel transfer Musculoske Resolve 2017-042018-03-20 Roselyn etal assistance letal d 0-10 12:30:00 (Radha) required 11:15: Weller [id number] Musculoskel requires Musculoske Resolve 2017-042018-03-20 Roselyn etal human letal d 0-10 12:30:00 (Radha) assist to 11:15: Weller leave home 00 [id number] Safety knowledge/s Safety Resolve 2017-042018-03-22 Laura kill d 0-12 09:55:00 Jean-Claude deficit: pt 10:00: [id number] 00 Respiratory knowledge/s Respirator Resolve 2017-042018-02-06 Laura kill y d 0-15 09:15:00 Jean-Claude deficit: cg 10:00: [id number] 00 Respiratory lung sounds Respirator Resolve 2017-042018-02-06 Laura deficit y d 0-15 09:15:00 [place] 10:00: [id number] 00 Sensory impaired Sensory Resolve 2017-042018-03-22 Quality verbal d 0-17 09:55:00 Realtime7 communicati 18:36: on 42 Musculoskel knowledge/s Musculoske Resolve 2017-042018-03-03 Laura etal kill letal d 0-24 09:19:00 Jean-Claude deficit: cg 09:45: [id number] 00 Nutrition knowledge/s Nutrition Resolve 2017-042018-03-03 Laura kill d 0-26 09:19:00 [place] deficit: pt 09:15: [id number] 00 Nutrition nutritional Nutrition Resolve 2017-042018-03-03 Laura restriction d 09:19:00 [place] s 09:15: [id number] 00 Elimination catheter Eliminatio Resolve 2017-042018-03-20 Laura present n d 0 12:30:00 Jean-Claude 09:15: [id number] 00 Elimination constipatio Eliminatio Resolve 2017-042018-03-20 Laura n n d 0 12:30:00 [place] 09:15: [id number] 00 Infection s/s of Infection Resolve 2017-042018-03-22 Laura infection d 0 09:55:00 Jean-Claude 09:30: [id number] 00 Endo/Edgard insulin Endo/Edgard Resolve 2017-042018-03-20 Laura admn d 04-22 12:30:00 Jean-Claude dependence 09:50: [id number] 00 Respiratory dyspnea Respirator Resolve 2017-042018-03-08 Laura present y d 04-24 09:20:00 Jean-Claude 10:07: [id number] 00 Safety cannot be Safety Resolve 2017-042018-03-22 Laura left alone d 04-24 09:55:00 Jean-Claude 10:07: [id number] 00 Cardio edema Cardiovasc Resolve 2017-042018-03-03 Laura ular d 04-26 09:19:00 Jean-Claude 09:51: [id number] 00 Respiratory Incentive Respirator Resolve 2017-042018-03-03 Laura Spirometer y d 04-26 09:19:00 Ejan-Claude /Acapella 09:51: [id number] Device 00 treatments in home Endo/Edgard knowledge/s Endo/Edgard Resolve 2017-042018-03-20 Laura kill d 05-08 12:30:00 [place] deficit: pt 09:20: [id number] 00 Nutrition knowledge/s Nutrition Resolve 2017-042018-04-19 Laura kill d 05-08 09:45:00 Jean-Claude deficit: pt 09:20: [id number] 00 Nutrition nutritional Nutrition Resolve 2017-042018-04-19 Laura restriction d 05-08 09:45:00 Jean-Claude s 09:20: [id number] 00 Endo/Edgard diabetic Endo/Edgard Resolve 2017-042018-03-20 Laura foot care d 2- 12:30:00 Jean-Claude 09:20: [id number] 00 Pain frequent Pain Mgmt Unknown 2017-04 Laura pain 2- [place] 12:45: [id number] 00 Respiratory dyspnea Respirator Resolve 2017-042018-03-20 Laura present y d 2 12:30:00 [place] 12:45: [id number] 00 Integument pressure Integument Unknown 2017-04 Laura ulcer 2- Jean-Claude present 12:45: [id number] 00 Integument surgical Integument Resolve 2017-042018-03-24 Laura wound d 2 11:23:00 Jean-Claude present 12:45: [id number] 00 Endo/Edgard diabetic Endo/Edgard Resolve 2017-042018-03-24 Laura foot care d 05-23 11:23:00 Jean-Claude 09:55: [id number] 00 Elimination catheter Eliminatio Resolve 2017-042018-04-19 Laura present n d 05-23 09:45:00 Jean-Claude 09:55: [id number] 00 Safety risk for Safety Resolve 2017-042018-04-19 Laura hospitaliza d 2 09:45:00 Jean-Claude tion 11:23: [id number] 00 Safety can be left Safety Resolve 2017-042018-04-19 Laura alone for d 2- 09:45:00 Jean-Claude only short 11:23: [id number] periods 00 Musculoskel knowledge/s Musculoske Resolve 2017-042018-03-29 Laura etal kill letal d - 09:30:00 Jean-Claude deficit: cg 10:20: [id number] 00 Musculoskel requires Musculoske Resolve 2017-042018-04-12 Laura etal human letal d 2- 09:45:00 Jean-Claude assist to 10:20: [id number] leave home 00 Endo/Edgard diabetic Endo/Edgard Resolve 2017-042018-04-19 Laura foot care d 2- 09:45:00 Jean-Claude 09:30: [id number] 00 Elimination constipatio Eliminatio Resolve 2017-042018-04-12 Laura n n d 05-30 09:45:00 [place] 09:30: [id number] 00 Pain frequent Pain Mgmt Unknown 2017-04 Laura pain 06-06 Jean-Claude 09:45: [id number] 00 Endo/Edgard insulin Endo/Edgard Resolve 2017-042018-04-19 Laura admn d 06-06 09:45:00 [place] dependence 09:45: [id number] 00 Endo/Edgard anti-coagul Endo/Edgard Resolve 2017-042018-04-19 Laura ation d 06-06 09:45:00 [place] therapy 09:45: [id number] 00 Integument surgical Integument Resolve 2017-042018-04-05 Laura wound d 06-06 09:45:00 [place] present 09:45: [id number] 00 Integument skin Integument Resolve 2017-042018-04-05 Laura integrity d 06-06 09:45:00 Jean-Claude risk 09:45: [id number] 00 Integument pressure Integument Unknown 2017-04 Laura ulcer 06-06 Jean-Claude present 09:45: [id number] 00 Elimination UTI within Eliminatio Resolve 2017-042018-04-12 Laura past 14 n d 06-06 09:45:00 Jean-Claude days 09:45: [id number] 00 Activity ADL Activity Resolve 2017-042018-09-15 Laura assistance d 06-06 10:35:00 Jean-Claude required 09:45: [id number] 00 Safety fall risk Safety Resolve 2017-042018-04-19 Laura factor d 06-06 09:45:00 Jean-Claude present 09:45: [id number] 00 Medication potential Meds Resolve 2017-042018-04-19 Laura clinically d 06-06 09:45:00 Jean-Claude significant 09:45: [id number] medication 00 issue Medication oral med Meds Resolve 2017-042018-04-05 Shari assistance d 06-06 09:45:00 Rege[place] required 09:45: [id number] 00 Medication injectable Meds Resolve 2017-042018-08-09 Shari med d 06-06 09:20:00 Rege[place]zi assistance 09:45: [id number] required 00 Musculoskel transfer Musculoske Resolve 2017-042018-04-12 Shari etal assistance letal d 06-06 09:45:00 [place]ge[place] required 09:45: [id number] 00 Medication oral med Meds Resolve 2017-042018-04-19 Laura assistance d 06-08 09:45:00 Jean-Claude required 10:00: [id number] 00 Medication injectable Meds Unknown 2017-04 Laura med 06-08 [place] assistance 10:00: [id number] required 00 Sensory impaired Sensory Resolve 2017-042018-04-19 Nima verbal d 06-08 09:45:00 [place] communicati 15:20: [id number] on 00 Sensory impaired Sensory Resolve 2017-042018-04-19 Nima hearing d 06-08 09:45:00 Graves 15:20: [id number] 00 Medication injectable Meds Unknown 2017-04 Nhung med Pérez assistance 14:56: [id number] required 00 Medication injectable Meds Unknown Nima med 04-13 Graves assistance 13:50: [id number] required 00 Elimination constipatio Eliminatio Resolve 2018-04-19 Laura n n d 04-14 09:45:00 Jean-Claude 09:28: [id number] 00 Medication injectable Meds Unknown Laura med 04-17 [place] assistance 10:00: [id number] required 00 Medication injectable Meds Resolve 2018-04-19 Laura med d 04-19 09:45:00 [place] assistance 09:45: [id number] required 00 Endo/Edgard anti-coagul Endo/Edgard Resolve 2018-04-26 Laura ation d 04-21 10:15:00 Jean-Claude therapy 09:45: [id number] 00 Nutrition knowledge/s Nutrition Resolve 2018-04-26 Laura kill d 04-21 10:15:00 [place] deficit: pt 09:45: [id number] 00 Nutrition nutritional Nutrition Resolve 2018-04-26 Laura restriction d 04-21 10:15:00 Jean-Claude s 09:45: [id number] 00 Elimination catheter Eliminatio Resolve 2018-04-26 Laura present n d 04-21 10:15:00 Jean-Claude 09:45: [id number] 00 Elimination constipatio Eliminatio Resolve 2018-04-26 Laura n n d 04-21 10:15:00 Jean-Claude 09:45: [id number] 00 Safety risk for Safety Resolve 2018-04-26 Laura hospitaliza d 1-11 10:15:00 Jean-Claude tion 09:45: [id number] 00 Safety can be left Safety Resolve 2018-04-26 Laura alone for d 1-11 10:15:00 Jean-Claude only short 09:45: [id number] periods 00 Sensory impaired Sensory Resolve 2018-04-26 Nima verbal d 1-11 10:15:00 [place] communicati 14:30: [id number] on 00 Sensory impaired Sensory Resolve 2018-04-26 Nima hearing d 1-11 10:15:00 [place] 14:30: [id number] 00 Sensory impaired Sensory Resolve 2018-04-28 Nima verbal d 1-17 10:20:00 [place] communicati 12:45: [id number] on 00 Sensory impaired Sensory Resolve 2018-04-28 Nima hearing d 1-17 10:20:00 [place] 12:45: [id number] 00 Endo/Edgard anti-coagul Endo/Edgard Resolve 2018-05-24 Laura ation d 1-18 12:30:00 Jean-Claude therapy 10:20: [id number] 00 Safety risk for Safety Active Laura hospitaliza - [place] tion 10:20: [id number] 00 Safety can be left Safety Resolve 2018-05-10 Laura alone for d 1- 13:45:00 Jean-Claude only short 10:10: [id number] Sensory impaired Sensory Resolve 2018-05-10 Jia hearing d 05-05 13:45:00 [place] 13:30: t 00 [id number] Sensory impaired Sensory Resolve 2018-05-10 Jia verbal d 1 13:45:00 [place] communicati 13:30: t on 00 [id number] Elimination catheter Eliminatio Resolve 2018-05-08 Wandy present n d 05-08 08:50:00 ,Kaylee 08:50: 00 Elimination constipatio Eliminatio Resolve 2018-06-28 Wandy n n d 05-08 09:45:00 ,Kaylee 08:50: 00 Safety cannot be Safety Resolve 2018-05-10 Laura left alone d 1- 13:45:00 [place] 08:50: [id number] 00 Elimination catheter Eliminatio Resolve 2018-05-12 Shari present n d 2- 09:30:00 Regeczi 09:30: [id number] 00 Safety can be left Safety Resolve 2018-05-17 Laura alone for d - 10:00:00 Jean-Claude only short 09:30: [id number] periods 00 Elimination urinary Eliminatio Resolve 2018-05-15 Laura incontinenc n d 05-15 08:45:00 [place] e 08:45: [id number] 00 Pain frequent Pain Mgmt Resolve 2018-05-17 Laura pain d 2-06 10:00:00 [place] 10:00: [id number] 00 Respiratory lung sounds Respirator Resolve 2018-05-22 Laura deficit y d 2-06 10:44:00 Jean-Claude 10:00: [id number] 00 Integument pressure Integument Unknown Laura ulcer 2-06 Jean-Claude present 10:00: [id number] 00 Integument skin Integument Resolve 2018-05-17 Laura integrity d 2-06 10:00:00 [place] risk 10:00: [id number] 00 Integument surgical Integument Resolve 2018-05-17 Laura wound d 2-06 10:00:00 Jean-Claude present 10:00: [id number] 00 Activity ADL Activity Unknown 2018- Laura assistance 2-06 [place] required 10:00: [id number] 00 Activity self-care Activity Resolve 2018-05-19 Laura deficit d 2-06 11:15:00 Jean-Claude 10:00: [id number] 00 Safety fall risk Safety Resolve 2018-05-19 Laura factor d 2-06 11:15:00 [place] present 10:00: [id number] 00 Elimination urinary Eliminatio Resolve 2018-05-24 [place] incontinenc n d 2- 12:30:00 Kaylee 11:15: 00 Safety can be left Safety Resolve 2018-05-24 Laura alone for d 2-08 12:30:00 Jean-Claude only short 11:15: [id number] periods 00 Safety fall risk Safety Resolve 2018-05-24 Sonia White factor d 2-12 12:30:00 present 09:48: 41 Endo/Edgard glucose Endo/Edgard Resolve 2018-05-24 Laura tolerance d 2-13 12:30:00 [place] problem 12:30: [id number] 00 Respiratory Incentive Respirator Resolve 2018-06-07 Laura Spirometer y d 2-15 12:00:00 Jean-Claude /Acapella 13:40: [id number] Device 00 treatments in home Endo/Edgard anti-coagul Endo/Edgard Resolve 2018-06-12 Laura ation d 2-15 09:30:00 Jean-Claude therapy 13:40: [id number] 00 Elimination urinary Eliminatio Resolve 2018-05-26 Laura incontinenc n d 2-15 13:40:00 Jean-Claude e 13:40: [id number] 00 Safety can be left Safety Resolve 2018-06-07 Laura alone for d 2-15 12:00:00 Jean-Claude only short 13:40: [id number] periods 00 Endo/Edgard glucose Endo/Edgard Resolve 2018-06-07 Cherrise tolerance d 2-22 12:00:00 [place] problem 10:15: [id number] 00 Endo/Edgard insulin Endo/Edgard Resolve 2018-06-12 Cherrise admn d 2-22 09:30:00 [place] dependence 10:15: [id number] 00 Endo/Edgard glucose Endo/Edgard Resolve 2018-06-12 Cherrise testing d 2- 09:30:00 Trixie dependence 10:15: [id number] 00 Safety fall risk Safety Resolve 2018-06-07 Cherrise factor d 2-22 12:00:00 [place] present 10:15: [id number] 00 Musculoskel transfer Musculoske Active Cherrise etal assistance letal 06-02 Trixie required 10:15: [id number] 00 Musculoskel requires Musculoske Active Cherrise etal human letal 2 [place] assist to 10:15: [id number] leave home 00 Elimination urinary Eliminatio Resolve 2018-06-07 Laura incontinenc n d 06-05 12:00:00 Jean-Claude e 12:30: [id number] 00 Activity self-care Activity Resolve 2018-08-14 Laura deficit d 06-05 12:10:00 [place] 12:30: [id number] 00 Elimination urinary Eliminatio Resolve 2018-06-12 Laura incontinenc n d 06-09 09:30:00 Jean-Claude e 09:13: [id number] 00 Safety can be left Safety Resolve 2018-06-12 Laura alone for d 06-09 09:30:00 Jean-Claude only short 09:13: [id number] periods 00 Respiratory Incentive Respirator Resolve 2018-06-14 Laura Spirometer y d 06-12 09:30:00 Jean-Claude /Acapemiguel 09:30: [id number] Device 00 treatments in home Endo/Edgard anti-coagul Endo/Edgard Resolve 2018-06-30 Laura ation d 06-14 09:19:00 Jean-Claude therapy 09:30: [id number] 00 Safety can be left Safety Resolve 2018-06-30 Laura alone for d 06-14 09:19:00 Jean-Claude alejo 09:30: [id number] periods 00 Elimination urinary Eliminatio Resolve 2018-06-19 Laura incontinenc n d 06-16 13:45:00 Jean-Claude e 09:45: [id number] 00 Elimination urinary Eliminatio Resolve 2018-06-28 Laura incontinenc n d 06-23 09:45:00 Jean-Claude e 13:15: [id number] 00 Elimination constipatio Eliminatio Resolve 2018-07-14 Laura n n d 06-30 09:20:00 [place] 09:19: [id number] 00 Endo/Edgard anti-coagul Endo/Edgard Resolve 2018-07-14 Laura ation d 07-03 09:20:00 Jean-Claude therapy 12:49: [id number] 00 Elimination urinary Eliminatio Resolve 2018-07-14 Laura incontinenc n d 07-03 09:20:00 [place] e 12:49: [id number] 00 Safety can be left Safety Resolve 2018-08-18 Laura alone for d 07-07 12:05:00 Jean-Claude only short 12:50: [id number] periods 00 Endo/Edgard glucose Endo/Edgard Resolve 2018-07-14 Shi testing d 07-10 09:20:00 Sorin, dependence 12:30: [id number] 00 Pain frequent Pain Mgmt Resolve 2018-07-14 Laura pain d 07-14 09:20:00 Jean-Claude 09:20: [id number] 00 Integument surgical Integument Resolve 2018-08-13 Laura wound d 07-14 12:50:00 Jean-Claude present 09:20: [id number] 00 Integument skin Integument Resolve 2018-08-13 Laura integrity d 07-14 12:50:00 [place] risk 09:20: [id number] 00 Safety fall risk Safety Resolve 2018-08-18 Laura factor d 07-14 12:05:00 [place] present 09:20: [id number] 00 Endo/Edgard anti-coagul Endo/Edgard Resolve 2018-08-14 Laura ation d 07-17 12:10:00 Jean-Claude therapy 13:00: [id number] 00 Elimination urinary Eliminatio Resolve 2018-07-21 Laura incontinenc n d 07-17 09:25:00 Jean-Claude e 13:00: [id number] 00 Activity ADL Activity Unknown Laura assistance 07-17 [place] required 13:00: [id number] 00 Elimination urinary Eliminatio Resolve 2018-08-14 Laura incontinenc n d 07-24 12:10:00 [place] e 09:27: [id number] 00 Pain frequent Pain Mgmt Resolve 2018 Laura pain d 08-07 09:20:00 Jean-Claude 12:45: [id number] 00 Cardio edema Cardiovasc Resolve 2018 Laura ular d 08-07 09:20:00 Jean-Claude 12:45: [id number] 00 Respiratory dyspnea Respirator Resolve 2018 Laura present y d 08-07 09:20:00 Jean-Claude 12:45: [id number] 00 Endo/Edgard diabetic Endo/Edgard Resolve 2018-08-14 Laura foot care d 08-07 12:10:00 Jean-Claude 12:45: [id number] 00 Nutrition knowledge/s Nutrition Active Laura kill 08-07 Jean-Claude deficit: pt 12:45: [id number] 00 Nutrition nutritional Nutrition Active Laura restriction 08-07 Jean-Claude s 12:45: [id number] 00 Neuro confusion Neuro/Emot Resolve 2018-08-14 Laura present ion d 08-07 12:10:00 Jean-Claude 12:45: [id number] 00 Medication oral med Meds Resolve 2018 Laura assistance d 08-07 09:20:00 [place] required 12:45: [id number] 00 Medication injectable Meds Resolve 2018 Jia med d 08-07 09:20:00 Jerardo assistance 12:45: [id number] required 00 Cardio edema Cardiovasc Resolve 2018-08-23 Laura ular d 08-13 11:15:00 Jean-Claude 12:50: [id number] 00 Respiratory dyspnea Respirator Resolve 2018-08-14 Laura present y d 08-13 12:10:00 Jean-Claude 12:50: [id number] 00 Endo/Edgard anti-coagul Endo/Edgard Resolve 2018-08-28 Laura ation d 08-16 12:00:00 Jean-Claude therapy 12:15: [id number] 00 Elimination urinary Eliminatio Resolve 2018-08-21 Laura incontinenc n d 08-16 12:45:00 Jean-Claude e 12:15: [id number] 00 Sensory impaired Sensory Resolve 2018-08-21 Krystyna verbal d 08-17 12:45:00 [place] communicati 14:30: [id number] on 00 Sensory impaired Sensory Resolve 2018-08-21 Krystyna hearing d 08-17 12:45:00 [place] 14:30: [id number] 00 Social financial LILLIAN: Resolve 2019-02-16 Krystyna Services resource Social d 08-17 13:45:00 [place] deficit Services 14:30: [id number] 00 Social knowledge/s LILLIAN: Resolve 2018-08-17 Krystyna Services kill Social d 08-17 14:30:00 [place] deficit - Services 14:30: [id number] pt 00 Social knowledge/s LILLIAN: Resolve 2018-08-17 Krystyna Services kill Social d 08-17 14:30:00 [place] deficit - Services 14:30: [id number] cg 00 Safety can be left Safety Resolve 2018-09-07 Laura alone for d 5-15 10:00:00 Jean-Claude cruz short 11:15: [id number] periods 00 Social knowledge/s LILLIAN: Active Laura Services kill Social 08-23 [place] deficit - Services 11:15: [id number] pt 00 Elimination urinary Eliminatio Resolve 2018-09-07 Laura incontinenc n d 08-25 10:00:00 Jean-Claude e 11:45: [id number] 00 Sensory impaired Sensory Resolve 2018-09-07 Krystyna verbal d 09-01 10:00:00 [facility] 14:45: [id number] on 00 Sensory impaired Sensory Resolve 2018-09-07 Krystyna hearing d 09-01 10:00:00 [facility] 14:45: [id number] 00 Social knowledge/s LILLIAN: Active Krsytyna Services kill Social 09-01 [place] deficit - Services 14:45: [id number] cg 00 Respiratory dyspnea Respirator Resolve 2018-09-15 Laura present y d 09-07 10:35:00 Jean-Claude 10:00: [id number] 00 Pain frequent Pain Mgmt Resolve 2018-09-11 Laura pain d 09-11 11:50:00 Jean-Claude 11:50: [id number] 00 Cardio hypertensio Cardiovasc Resolve 2018-09-11 Laura n ular d 09-11 11:50:00 Jean-Claude 11:50: [id number] 00 Integument pressure Integument Resolve 2018-09-15 Laura ulcer d 6 10:35:00 Jean-Claude present 11:50: [id number] 00 Integument surgical Integument Resolve 2018-09-15 Laura wound d 6-03 10:35:00 [place] present 11:50: [id number] 00 Integument skin Integument Resolve 2018-09-15 Laura integrity d 09-11 10:35:00 [place] risk 11:50: [id number] 00 Elimination urinary Eliminatio Resolve 2018-09-11 Laura incontinenc n d 09-11 11:50:00 Jean-Claude e 11:50: [id number] 00 Activity ADL Activity Unknown Laura assistance 09-11 [place] required 11:50: [id number] 00 Activity self-care Activity Resolve 2018-09-15 Laura deficit d 09-11 10:35:00 Jean-Claude 11:50: [id number] 00 Safety fall risk Safety Resolve 2018-09-15 Laura factor d 09-11 10:35:00 [place] present 11:50: [id number] 00 Safety can be left Safety Resolve 2018-09-15 Laura alone for d 09-11 10:35:00 Jean-Claude only short 11:50: [id number] periods 00 Endo/Edgard anti-coagul Endo/Edgard Resolve 2018-09-18 Laura ation d 09-15 12:20:00 [place] therapy 10:35: [id number] 00 Elimination urinary Eliminatio Resolve 2018-09-18 Laura incontinenc n d 09-15 12:20:00 Jean-Claude e 10:35: [id number] 00 Elimination constipatio Eliminatio Resolve 2018-09-18 Laura n n d 09-15 12:20:00 Jean-Claude 10:35: [id number] 00 Safety can be left Safety Resolve 2018-09-25 Laura alone for d 610 11:45:00 Jean-Claude only short 12:20: [id number] periods 00 Cardio hypertensio Cardiovasc Resolve 2018-09-21 Laura n ular d 09-21 11:45:00 Jean-Claude 11:45: [id number] 00 Endo/Edgard anti-coagul Endo/Edgard Resolve 2018-09-25 Laura ation d 09-21 11:45:00 Jean-Claude therapy 11:45: [id number] 00 Cardio hypertensio Cardiovasc Resolve 2018-10-02 Laura n ular d 6- 12:05:00 Jean-Claude 11:45: [id number] 00 Elimination urinary Eliminatio Resolve 2018-10-02 Laura incontinenc n d 6 12:05:00 Jean-Claude e 11:45: [id number] 00 Endo/Edgard anti-coagul Endo/Edgard Resolve 2018-10-02 Laura ation d 09-29 12:05:00 [place] therapy 09:45: [id number] 00 Safety can be left Safety Resolve 2018-10-02 Laura alone for d 09-29 12:05:00 Jean-Claude only short 09:45: [id number] 00 Endo/Edgard anti-coagul Endo/Edgard Resolve 2018-10-27 Laura ation d 10-04 11:30:00 [place] therapy 10:10: [id number] 00 Elimination urinary Eliminatio Resolve 2018-10-06 Laura incontinenc n d 10-04 09:10:00 Jean-Claude e 10:10: [id number] 00 Elimination constipatio Eliminatio Resolve 2018-10-06 Laura n n d 10-04 09:10:00 Jean-Claude 10:10: [id number] 00 Safety can be left Safety Resolve 2018-10-06 Laura alone for d 10-04 09:10:00 Jean-Claude only short 10:10: [id number] Sensory impaired Sensory Resolve 2018-10-23 Krystyna verbal d 10-05 11:56:00 [place] communicati 15:00: [id number] on 00 Sensory impaired Sensory Resolve 2018-10-23 Krystyna hearing d 10-05 11:56:00 [place] 15:00: [id number] 00 Elimination urinary Eliminatio Resolve 2018-10-27 Laura incontinenc n d 10-09 11:30:00 Jean-Claude butler 12:15: [id number] 00 Elimination bloody Eliminatio Resolve 2018-10-27 Laura urine n d 10-09 11:30:00 Jean-Claude 12:15: [id number] 00 Safety can be left Safety Resolve 2018-10-23 Laura alone for d 10-09 11:56:00 Jean-Claude only short 12:15: [id number] periods Elimination constipatio Eliminatio Resolve 2018-12-08 Laura n n d 10-16 14:00:00 Jean-Claude 12:35: [id number] 00 Cardio edema Cardiovasc Resolve 2018-10-27 Laura ular d 10-20 11:30:00 Jean-Claude 11:35: [id number] 00 Endo/Edgard knowledge/s Endo/Edgard Resolve 2018-10-27 Laura kill d 10-20 11:30:00 Jean-Claude deficit: pt 11:35: [id number] 00 Sensory impaired Sensory Unknown Jonatan verbal 7-15 Demarco, communicati 13:30: PT on [id number] Sensory impaired Sensory Unknown Jonatan hearing 15 Demarco, 13:30: PT [id number] Safety can be left Safety Resolve 2018-10-27 Laura alone for d 10-25 11:30:00 Jean-Claude cruz short 10:35: [id number] 00 Endo/Edgard glucose Endo/Edgard Resolve 2018-12-11 Cherrise tolerance d 10-30 09:30:00 [place] problem 11:55: [id number] 00 Endo/Edgard insulin Endo/Edgard Resolve 2018-12-13 Cherrise admn d 10-30 11:10:00 Trixie dependence 11:55: [id number] 00 Endo/Edgard glucose Endo/Edgard Resolve 2018-12-13 Cherrise testing d 10-30 11:10:00 [place] dependence 11:55: [id number] 00 Endo/Edgard knowledge/s Endo/Edgard Resolve 2018-12-08 Cherrise kill d 10-30 14:00:00 Trixie deficit: pt 11:55: [id number] 00 Elimination urinary Eliminatio Resolve 2018-12-08 Cherrise urgency n d 10-30 14:00:00 [place] 11:55: [id number] 00 Neuro depressive Neuro/Emot Resolve 2018-12-08 Cherrise feelings ion d 10-30 14:00:00 Trixie present 11:55: [id number] 00 Neuro impaired Neuro/Emot Resolve 2018-12-08 Cherrise decision-ma ion d 10-30 14:00:00 [place] pj 11:55: [id number] 00 Safety fall risk Safety Resolve 2018-12-06 Cherrise factor d 10-30 13:05:00 [place] present 11:55: [id number] 00 Endo/Edgard anti-coagul Endo/Edgard Resolve 2018-12-13 Shi ation d 11-01 11:10:00 Sorin, therapy 12:30: [id number] 00 Respiratory Incentive Respirator Resolve 2018-11-29 Cherrise Spirometer y d 11-03 10:15:00 [place] /[place]ella 10:25: [id number] Device 00 treatments in home Elimination urinary Eliminatio Resolve 2018-12-08 Cherrise frequency n d 11-03 14:00:00 [place] 10:25: [id number] 00 Respiratory lung sounds Respirator Resolve 2018-11-29 Cherrise deficit y d 11-06 10:15:00 Trixie 12:05: [id number] 00 Neuro memory Neuro/Emot Resolve 2018-12-08 Cherrise deficit ion d 11-08 14:00:00 Trixie needing 10:30: [id number] supervision 00 Pain frequent Pain Mgmt Resolve 2018-12-06 Shi pain d 11-10 13:05:00 Sorin, 11:00: [id number] 00 Integument pressure Integument Active Shi ulcer 11-10 Sorin, present 11:00: [id number] 00 Integument surgical Integument Active 2018- Shi wound 11-10 Sorin, present 11:00: [id number] 00 Integument skin Integument Active 2018- Shi integrity 11-10 Sorin, risk 11:00: [id number] 00 Elimination urinary Eliminatio Resolve 2018-12-08 Shi incontinenc n d 11-10 14:00:00 Sorin, e 11:00: [id number] 00 Activity self-care Activity Resolve 2018-11-29 Shi deficit d 11-10 10:15:00 Sorin, 11:00: [id number] 00 Activity ADL Activity Resolve 2018-12-08 Shi assistance d 11-10 14:00:00 Sorin, required 11:00: [id number] 00 Pain knowledge/s Pain Mgmt Resolve 2018-12-06 Krystyna kill d 11-16 13:05:00 [place] deficit: cg 15:15: [id number] 00 Respiratory knowledge/s Respirator Resolve 2018-11-29 Krystyna kill y d 11-16 10:15:00 [place] deficit: cg 15:15: [id number] 00 Integument knowledge/s Integument Active Krystyna kill 11-16 [place] deficit: cg 15:15: [id number] 00 Elimination knowledge/s Eliminatio Resolve 2018-12-08 Krystyna kill n d 11-16 14:00:00 [place] deficit: cg 15:15: [id number] 00 Safety knowledge/s Safety Resolve 2018-12-06 Krystyna kill d 11-16 13:05:00 [place] deficit: cg 15:15: [id number] 00 Cardio hypertensio Cardiovasc Resolve 2018-11-29 Lenny jarvis joseph d 11-17 10:15:00 [place] 10:45: [id number] 00 Safety can be left Safety Resolve 2018-12-08 Shi alone for d 11-22 14:00:00 nancy Rowell short 11:00: [id number] periods 00 Sensory impaired Sensory Resolve 2018-12-08 Laura verbal d 11-24 14:00:00 Jean-Claude communicati 09:30: [id number] on 00 Sensory impaired Sensory Resolve 2018-12-08 Laura hearing d 11-24 14:00:00 Jean-Claude 09:30: [id number] 00 Respiratory knowledge/s Respirator Resolve 2018-12-08 Laura kill y d 12-01 14:00:00 Jean-Claude deficit: cg 09:30: [id number] 00 Sensory impaired Sensory Unknown Krystyna verbal 8 [place] communicati 15:00: [id number] on 00 Sensory impaired Sensory Unknown Krystyna hearing 12-08 [place] 15:00: [id number] 00 Respiratory knowledge/s Respirator Resolve 2018-12-13 Laura kill y d 12-11 11:10:00 Jean-Claude deficit: cg 09:30: [id number] 00 Endo/Edgard knowledge/s Endo/Edgard Resolve 2018-12-13 Laura kill d 12-11 11:10:00 [place] deficit: pt 09:30: [id number] 00 Elimination urinary Eliminatio Resolve 2018-12-15 Laura incontinenc n d 12-11 13:10:00 Jean-Claude e 09:30: [id number] 00 Safety can be left Safety Resolve 2018-12-15 Laura alone for d 12-11 13:10:00 Jean[place]Cla[place] only short 09:30: [id number] 00 Endo/Edgard knowledge/s Endo/Edgard Resolve 2019-01-05 Laura kill d 12-15 11:00:00 Jean-Claude deficit: pt 13:10: [id number] 00 Endo/Edgard anti-coagul Endo/Edgard Resolve 2019-01-05 Laura ation d 12-15 11:00:00 Jean-Claude therapy 13:10: [id number] 00 Elimination urinary Eliminatio Resolve 2018-12-27 Laura incontinenc n d 12-18 09:20:00 Jean-Claude e 12:10: [id number] 00 Safety can be left Safety Resolve 2019-01-05 Laura alone for d 12-18 11:00:00 Jean-Claude only short 12:10: [id number] periods 00 Elimination constipatio Eliminatio Resolve 2019-01-05 Laura n n d 12-20 11:00:00 Jean-Claude 12:15: [id number] 00 Pain frequent Pain Mgmt Resolve 2019-01-15 Laura pain d 12-27 12:30:00 Jean-Claude 09:20: [id number] 00 Respiratory dyspnea Respirator Resolve 2019-01-05 Laura present y d 12-27 11:00:00 Jean-Claude 09:20: [id number] 00 Endo/Edgard diabetic Endo/Edgard Resolve 2019-01-05 Laura foot care d 9 11:00:00 Jean-Claude 09:20: [id number] 00 Elimination diarrhea Eliminatio Resolve 2019-01-05 Laura n d 18 11:00:00 Jean-Claude 09:20: [id number] 00 Neuro confusion Neuro/Emot Resolve 2019-01-05 Laura present ion d 12-27 11:00:00 Jean-Claude 09:20: [id number] 00 Neuro anxiety Neuro/Emot Resolve 2019-01-05 Laura present ion d 12-27 11:00:00 Jean-Claude 09:20: [id number] 00 Activity ADL Activity Resolve 2019-01-05 Laura assistance d 12-27 11:00:00 [place] required 09:20: [id number] 00 Activity self-care Activity Resolve 2019-01-05 Laura deficit d 12-27 11:00:00 Jean-Claude 09:20: [id number] 00 Safety fall risk Safety Resolve 2019-01-05 Laura factor d 12-27 11:00:00 Jean-Claude present 09:20: [id number] 00 Medication potential Meds Resolve 2019-01-05 Laura clinically d 12-27 11:00:00 [place] significant 09:20: [id number] medication 00 issue Elimination urinary Eliminatio Resolve 2019-01-05 Laura incontinenc n d 12-29 11:00:00 Jean-Claude e 11:20: [id number] 00 Endo/Edgard knowledge/s Endo/Edgard Resolve 2019-01-10 Laura kill d 01-08 10:00:00 Jean-Claude deficit: pt 11:30: [id number] 00 Endo/Edgard anti-coagul Endo/Edgard Resolve 2019-01-10 Laura ation d 01-08 10:00:00 Jean-Claude therapy 11:30: [id number] 00 Elimination urinary Eliminatio Resolve 2019-01-15 Laura incontinenc n d 01-08 12:30:00 [place] e 11:30: [id number] 00 Safety can be left Safety Resolve 2019-02-16 Laura alone for d 9-30 12:00:00 Jean-Claude only short 11:30: [id number] periods 00 Respiratory dyspnea Respirator Resolve 2018-042019-01-26 Laura present y d 0-02 10:00:00 Jean-Claude 10:00: [id number] 00 Activity ADL Activity Resolve 2018-042019-01-12 Laura assistance d 0-02 11:30:00 [place] required 10:00: [id number] 00 Activity self-care Activity Resolve 2018-042019-01-12 Laura deficit d 0-02 11:30:00 [place] 10:00: [id number] 00 Safety fall risk Safety Resolve 2018-042019-01-12 Laura factor d 0-02 11:30:00 [place] present 10:00: [id number] 00 Medication injectable Meds Resolve 2018-042019-01-17 Laura med d 0-02 09:45:00 [place] assistance 10:00: [id number] required 00 Endo/Edgard knowledge/s Endo/Edgard Resolve 2018-042019-01-15 Laura kill d 0-04 12:30:00 Jean-Claude deficit: pt 11:30: [id number] 00 Endo/Edgard anti-coagul Endo/Edgard Resolve 2018-042019-01-15 Laura ation d 0-04 12:30:00 [place] therapy 11:30: [id number] 00 Elimination constipatio Eliminatio Resolve 2018-042019-01-15 Laura n n d 0-04 12:30:00 [place] 11:30: [id number] 00 Sensory impaired Sensory Resolve 2018-042019-01-15 Krystyna verbal d 0-04 12:30:00 Kathy communicati 15:30: [id number] on 00 Sensory impaired Sensory Resolve 2018-042019-01-15 Krystyna hearing d 0-04 12:30:00 [place] 15:30: [id number] 00 Infection s/s of Infection Resolve 2018-042019-03-09 Laura infection d 0-07 11:00:00 Jean-Claude 12:30: [id number] 00 Sensory impaired Sensory Resolve 2018-042019-01-22 Jonatan verbal d 0-08 11:00:00 ambrosio Pal 13:00: PT on 00 [id number] Sensory impaired Sensory Resolve 2018-042019-01-22 Jonatan hearing d 0-08 11:00:00 Demarco, 13:00: PT 00 [id number] Endo/Edgard knowledge/s Endo/Edgard Resolve 2018-042019-02-07 Laura kill d 0-09 11:20:00 Jean-Claude deficit: pt 09:45: [id number] 00 Endo/Edgard anti-coagul Endo/Edgard Resolve 2018-042019-02-07 Laura ation d 0-09 11:20:00 Jean-Claude therapy 09:45: [id number] 00 Elimination urinary Eliminatio Resolve 2018-042019-02-02 Laura incontinenc n d 0-09 11:30:00 Jean-Claude e 09:45: [id number] 00 Elimination constipatio Eliminatio Resolve 2018-042019-02-02 Laura n n d 0-16 11:30:00 [place] 10:00: [id number] 00 Sensory impaired Sensory Resolve 2018-042019-01-31 Jonatan verbal d 0-17 11:10:00 Demarco, communicflorentino 15:00: PT on 00 [id number] Sensory impaired Sensory Resolve 2018-042019-01-31 Jonatan hearing d 0-17 11:10:00 Demarco, 15:00: PT 00 [id number] Pain frequent Pain Mgmt Resolve 2018-042019-02-16 Jonatan pain d 0-23 12:00:00 Demarco, 13:00: PT 00 [id number] Sensory impaired Sensory Unknown 2018-04 Jonatan verbal 0-23 Demarco, communicati 13:00: PT on 00 [id number] Sensory impaired Sensory Unknown 2018-04 Jonatan hearing 0-23 Demarco, 13:00: PT 00 [id number] Respiratory dyspnea Respirator Resolve 2018-042019-02-07 Laura present y d 0-25 11:20:00 Jean-Claude 11:30: [id number] 00 Elimination urinary Eliminatio Resolve 2018-042019-02-07 Laura incontinenc n d 0-28 11:20:00 Jean-Claude e 12:40: [id number] 00 Endo/Edgard knowledge/s Endo/Edgard Resolve 2018-042019-02-19 Laura kill d 1 12:40:00 Jean-Claude deficit: pt 12:30: [id number] 00 Endo/Edgard anti-coagul Endo/Edgard Resolve 2018-042019-02-19 Laura ation d 04-11 12:40:00 Jean-Claude therapy 12:30: [id number] 00 Elimination urinary Eliminatio Resolve 2018-042019-02-16 Laura incontinenc n d 04-11 12:00:00 Jean-Claude e 12:30: [id number] 00 Medication potential Meds Resolve 2018-042019-02-24 Laura clinically d 04-14 09:45:00 [place] significant 12:20: [id number] medication 00 issue Elimination constipatio Eliminatio Resolve 2018-042019-02-16 Laura n n d 04-16 12:00:00 Jean-Claude 11:20: [id number] 00 Elimination urinary Eliminatio Resolve 2018-042019-02-24 Laura incontinenc n d 04-21 09:45:00 [place] e 12:40: [id number] 00 Safety can be left Safety Resolve 2018-042019-02-24 Laura alone for d 04-21 09:45:00 Jean-Claude only short 12:40: [id number] periods 00 Endo/Edgard knowledge/s Endo/Edgard Resolve 2018-042019-02-24 Laura kill d 04-23 09:45:00 Jean-Claude deficit: pt 12:05: [id number] 00 Endo/Edgard anti-coagul Endo/Edgard Resolve 2018-042019-02-24 Laura ation d 04-23 09:45:00 Jean-Claude therapy 12:05: [id number] 00 Sensory impaired Sensory Resolve 2018-042019-02-26 Laura verbal d 04-26 13:20:00 Jean-Claude communicati 09:45: [id number] on 00 Sensory impaired Sensory Resolve 2018-042019-02-26 Laura hearing d 04-26 13:20:00 Jean-Claude 09:45: [id number] 00 Endo/Edgard knowledge/s Endo/Edgard Resolve 2018-042019-02-28 Laura kill d 04-28 11:15:00 [place] deficit: pt 13:20: [id number] 00 Endo/Edgard anti-coagul Endo/Edgard Resolve 2018-042019-02-28 Laura ation d 04-28 11:15:00 Jean-Claude therapy 13:20: [id number] 00 Elimination urinary Eliminatio Resolve 2018-042019-03-09 Laura incontinenc n d 04-28 11:00:00 [place] e 13:20: [id number] 00 Safety can be left Safety Resolve 2018-042019-03-05 Laura alone for d 04-28 12:45:00 Jean-Claude only short 13:20: [id number] periods 00 Endo/Edgard knowledge/s Endo/Edgard Resolve 2018-042019-03-09 Laura kill d 05-05 11:00:00 [place] deficit: pt 12:45: [id number] Endo/Edgard anti-coagul Endo/Edgard Resolve 2018-042019-03-09 Laura ation d 05-05 11:00:00 [place] therapy 12:45: [id number] Safety can be left Safety Resolve 2018-042019-03-09 Laura alone for d 05-07 11:00:00 [place] only short 11:25: [id number] 00 Allergies, Adverse Reactions, Alerts Allergy Name Allergy Status Severity Reaction(s) Onset Inactive Treating Comments Type Date Date Clinician bananas Unknown Active Unknown Reaction 2017-04 Roselyn Unknown 0-10 (Radha) Nithin [id number] keflex Unknown Active Unknown Reaction 2017-04 Roselyn Unknown 0-10 (Radha) Nithin [id number] nuts Unknown Active Unknown Reaction 2017-04 Roselyn Unknown 0-10 (Radha) Nithin [id number] Cipro Medication Active Unknown Reaction 2017-04 Sonia White Name ID Unknown 0-10 metronidazol Base Active Unknown Nausea and 2017-04 Roselyn e Ingredient vomiting 2-20 Jordan [id number] Medications Ordered Filled Start Stop Current Ordering [...] inhalation Lantus Lantus No Shallish 38 Unknown Viviana Michelle MD,Jamie units U-100 U-100 Insulin 100 [...] nded nded release release loperamide loperamide No [place] 1-2 Unknown 2 mg tablet 2 mg [...] pen s pen testosteron testosteron 2017-04 No [place] Unknown Unknown e cypionate e cypionate 06-06 MD,Latanya Woods 200 mg/mL 200 mg/mL intramuscul intramuscul ar kit ar kit mometasone mometasone 2017-04 No [place] Unknown Unknown 0.1 % 0.1 % 06-06 Latanya DAVID topical topical cream cream finasteride finasteride 2017-04 No [place] Unknown Unknown 5 mg tablet 5 mg tablet 06-06 Latanya DAVID Levemir Levemir 2017-04- [place] Unknown Unknown FlexTouch FlexTouch 06-06 Latanya DAVID [...] mg tablet 08-13 ,Jamie amoxicillin amoxicillin 2018- Shallish Unknown Unknown 500 mg 500 mg 08-11 ,Jamie tablet tablet doxycycline doxycycline 2018- Shallish Unknown [...] Unknown Unknown 2.5 mg 2.5 mg 08-25 05-20 MD,Jamie tablet tablet Coumadin Coumadin 2018- [...] Observation Time Observation Value Comments SYSTOLIC mm[Hg] 2019-03-09 18:09:06 138 mm[Hg] mm[Hg] Method: Sit SYSTOLIC mm[Hg] 2018-01-23 18:02:16 122 mm[Hg] mm[Hg] Method: Stand DIASTOLIC mm[Hg] 2019-03-09 18:09:06 72 mm[Hg] mm[Hg] Method: Sit DIASTOLIC mm[Hg] 2018-01-23 18:02:16 60 mm[Hg] mm[Hg] Method: Stand PULSE 2019-03-09 18:09:06 64 /min /min RESP RATE 2019-03-09 18:09:06 16 /min /min TEMP 2019-03-09 18:09:06 97.9 [degF] Procedures This patient has no known procedures. Results This patient has no known results.
--- OUTSIDE RECORDS SUMMARY | 2019-04-11 14:40 | XMS REPORT ---
:1940 Author Organization [facility] Care Team Providers Name Role Phone Unavailable Unavailable Unavailable Problems Condition Condition Condition Status Onset Resolution Last Treating Comments Name Details Category Date Date Treatment Clinician Date Pain frequent Pain Mgmt Resolve 2017-042018-05-08 Roselyn pain d 0-10 08:50:00 (Radha) 11:15: Weller 00 [id number] Cardio edema Cardiovasc Resolve 2017-042018-02-20 Roselyn ular d 0-10 09:50:00 (Radha) 11:15: Weller 00 [id number] Respiratory dyspnea Respirator Resolve 2017-042018-02-15 Roselyn present y d 0-10 10:20:00 (Radha) 11:15: Weller 00 [id number] Endo/Edgard glucose Endo/Edgard Resolve 2017-042018-03-20 Roselyn testing d 0-10 12:30:00 (Radha) dependence 11:15: Weller 00 [id number] Endo/Edgard knowledge/s Endo/Edgard Resolve 2017-042018-03-06 Roselyn kill d 0-10 09:30:00 (Radha) deficit: pt 11:15: Weller 00 [id number] Endo/Edgard anti-coagul Endo/Edgard Resolve 2017-042018-03-20 Roselyn ation d 0-10 12:30:00 (Radha) therapy 11:15: Weller 00 [id number] Endo/Edgard diabetic Endo/Edgard Resolve 2017-042018-03-06 Roselyn foot care d 0-10 09:30:00 (Radha) 11:15: Weller 00 [id number] Sensory impaired Sensory Resolve 2017-042018-03-22 Roselyn hearing d 0-10 09:55:00 (Radha) 11:15: Weller 00 [id number] Integument pressure Integument Resolve 2017-042018-08-21 Roselyn ulcer d 0-10 12:45:00 (Radha) present 11:15: Weller [id number] Integument skin Integument Resolve 2017-042018-03-03 Roselyn integrity d 0-10 09:19:00 (Radha) risk 11:15: Weller [id number] Integument surgical Integument Resolve 2017-042018-03-03 Quality wound d 0-10 09:19:00 Realtime7 present 11:15: 00 Integument other wound Integument Resolve 2017-042018-03-03 Quality present d 0-10 09:19:00 Realtime7 11:15: 00 Elimination urinary Eliminatio Resolve 2017-042018-03-20 Roselyn incontinenc n d 0-10 12:30:00 (Radha) e 11:15: Weller [id number] Neuro confusion Neuro/Emot Resolve 2017-042018-03-22 Roselyn present ion d 0-10 09:55:00 (Radha) 11:15: Weller [id number] Neuro anxiety Neuro/Emot Resolve 2017-042018-03-22 Roselyn present ion d 0-10 09:55:00 (Radha) 11:15: Weller [id number] Neuro impaired Neuro/Emot Resolve 2017-042018-03-22 Roselyn decision-ma ion d 0-10 09:55:00 (Radha) pj 11:15: Weller [id number] Activity ADL Activity Resolve 2017-042018-03-22 Roselyn assistance d 0-10 09:55:00 (Radha) required 11:15: [id number] Safety structural Safety Resolve 2017-042018-03-22 Roselyn barriers d 0-10 09:55:00 (Radha) present 11:15: Weller [id number] Safety fall risk Safety Resolve 2017-042018-03-22 Roselyn factor d 0-10 09:55:00 (Radha) present 11:15: Weller [id number] Safety risk for Safety Resolve 2017-042018-03-22 Roselyn hospitaliza d 0-10 09:55:00 (Radha) tion 11:15: Weller [id number] Safety can be left Safety Resolve 2017-042018-03-22 Roselyn alone for d 0-10 09:55:00 (Radha) only short 11:15: Weller 00 [id number] Medication oral med Meds Resolve 2017-042018-02-06 Roselyn assistance d 0-10 09:15:00 (Radha) required 11:15: Weller [id number] Medication injectable Meds Resolve 2017-042018-02-06 Roselyn med d 0-10 09:15:00 (Radha) assistance 11:15: Weller required 00 [id number] Medication knowledge/s Meds Resolve 2017-042018-02-15 Roselyn kill d 0-10 10:20:00 (Radha) deficit: pt 11:15: Weller 00 [id number] Medication potential Meds Resolve 2017-042018-02-15 Roselyn clinically d 0-10 10:20:00 (Radha) significant 11:15: Weller medication 00 [id number] issue Musculoskel transfer Musculoske Resolve 2017-042018-03-20 Roselyn etal assistance letal d 0-10 12:30:00 (Radha) required 11:15: Weller [id number] Musculoskel requires Musculoske Resolve 2017-042018-03-20 Roselyn etal human letal d 0-10 12:30:00 (Radha) assist to 11:15: Weller leave home 00 [id number] Safety knowledge/s Safety Resolve 2017-042018-03-22 Laura kill d 0-12 09:55:00 Jean-Claude deficit: pt 10:00: [id number] 00 Respiratory knowledge/s Respirator Resolve 2017-042018-02-06 Laura kill y d 0-15 09:15:00 Jean-Claude deficit: cg 10:00: [id number] 00 Respiratory lung sounds Respirator Resolve 2017-042018-02-06 Laura deficit y d 0-15 09:15:00 [place] 10:00: [id number] 00 Sensory impaired Sensory Resolve 2017-042018-03-22 Quality verbal d 0-17 09:55:00 Realtime7 communicati 18:36: on 42 Musculoskel knowledge/s Musculoske Resolve 2017-042018-03-03 Laura etal kill letal d 0-24 09:19:00 Jean-Claude deficit: cg 09:45: [id number] 00 Nutrition knowledge/s Nutrition Resolve 2017-042018-03-03 Laura kill d 0-26 09:19:00 [place] deficit: pt 09:15: [id number] 00 Nutrition nutritional Nutrition Resolve 2017-042018-03-03 Laura restriction d 09:19:00 [place] s 09:15: [id number] 00 Elimination catheter Eliminatio Resolve 2017-042018-03-20 Laura present n d 0 12:30:00 [place] 09:15: [id number] 00 Elimination constipatio Eliminatio Resolve 2017-042018-03-20 Laura n n d 0 12:30:00 Jean-Claude 09:15: [id number] 00 Infection s/s of Infection Resolve 2017-042018-03-22 Laura infection d 0 09:55:00 Jean-Claude 09:30: [id number] 00 Endo/Edgard insulin Endo/Edgard Resolve 2017-042018-03-20 Laura admn d 04-22 12:30:00 Jean-Claude dependence 09:50: [id number] 00 Respiratory dyspnea Respirator Resolve 2017-042018-03-08 Laura present y d 04-24 09:20:00 Jean-Claude 10:07: [id number] 00 Safety cannot be Safety Resolve 2017-042018-03-22 Laura left alone d 04-24 09:55:00 Jean-Claude 10:07: [id number] 00 Cardio edema Cardiovasc Resolve 2017-042018-03-03 Laura ular d 04-26 09:19:00 Jean-Claude 09:51: [id number] 00 Respiratory Incentive Respirator Resolve 2017-042018-03-03 Laura Spirometer y d 04-26 09:19:00 [place] /Acapella 09:51: [id number] Device 00 treatments in home Endo/Edgard knowledge/s Endo/Edgard Resolve 2017-042018-03-20 Laura kill d 05-08 12:30:00 [place] deficit: pt 09:20: [id number] 00 Nutrition knowledge/s Nutrition Resolve 2017-042018-04-19 Laura kill d 05-08 09:45:00 Jean-Claude deficit: pt 09:20: [id number] 00 Nutrition nutritional Nutrition Resolve 2017-042018-04-19 Laura restriction d 05-08 09:45:00 Jean-Claude s 09:20: [id number] 00 Endo/Edgard diabetic Endo/Edgard Resolve 2017-042018-03-20 Laura foot care d 2- 12:30:00 Jean-Claude 09:20: [id number] 00 Pain frequent Pain Mgmt Unknown 2017-04 Laura pain 2- Jean-Claude 12:45: [id number] 00 Respiratory dyspnea Respirator Resolve 2017-042018-03-20 Laura present y d 2 12:30:00 [place] 12:45: [id number] 00 Integument pressure Integument Unknown 2017-04 Laura ulcer 2- [place] present 12:45: [id number] 00 Integument surgical Integument Resolve 2017-042018-03-24 Laura wound d 2 11:23:00 Jean-Claude present 12:45: [id number] 00 Endo/Edgard diabetic Endo/Edgard Resolve 2017-042018-03-24 Laura foot care d 05-23 11:23:00 Jean-Claude 09:55: [id number] 00 Elimination catheter Eliminatio Resolve 2017-042018-04-19 Laura present n d 05-23 09:45:00 Jean-Claude 09:55: [id number] 00 Safety risk for Safety Resolve 2017-042018-04-19 Laura hospitaliza d 2 09:45:00 Jean-Claude tion 11:23: [id number] 00 Safety can be left Safety Resolve 2017-042018-04-19 Laura alone for d 2- 09:45:00 Jean-Claude only short 11:23: [id number] periods 00 Musculoskel knowledge/s Musculoske Resolve 2017-042018-03-29 Laura etal kill letal d - 09:30:00 Jean-Claude deficit: cg 10:20: [id number] 00 Musculoskel requires Musculoske Resolve 2017-042018-04-12 Laura etal human letal d 2- 09:45:00 Jean-Claude assist to 10:20: [id number] leave home 00 Endo/Edgard diabetic Endo/Edgard Resolve 2017-042018-04-19 Laura foot care d 2- 09:45:00 Jean-Claude 09:30: [id number] 00 Elimination constipatio Eliminatio Resolve 2017-042018-04-12 Laura n n d 05-30 09:45:00 [place] 09:30: [id number] 00 Pain frequent Pain Mgmt Unknown 2017-04 Laura pain 06-06 [place] 09:45: [id number] 00 Endo/Edgard insulin Endo/Edgard Resolve 2017-042018-04-19 Laura admn d 06-06 09:45:00 Jean-Claude dependence 09:45: [id number] 00 Endo/Edgard anti-coagul Endo/Edgard Resolve 2017-042018-04-19 Laura ation d 06-06 09:45:00 [place] therapy 09:45: [id number] 00 Integument surgical Integument Resolve 2017-042018-04-05 Laura wound d 06-06 09:45:00 [place] present 09:45: [id number] 00 Integument skin Integument Resolve 2017-042018-04-05 Laura integrity d 06-06 09:45:00 Jean-Claude risk 09:45: [id number] 00 Integument pressure Integument Unknown 2017-04 Laura ulcer 06-06 Jean-Claude present 09:45: [id number] 00 Elimination UTI within Eliminatio Resolve 2017-042018-04-12 Laura past 14 n d 06-06 09:45:00 Jean-Claude days 09:45: [id number] 00 Activity ADL Activity Resolve 2017-042018-09-15 Laura assistance d 06-06 10:35:00 Jean-Claude required 09:45: [id number] 00 Safety fall risk Safety Resolve 2017-042018-04-19 Laura factor d 06-06 09:45:00 [place] present 09:45: [id number] 00 Medication potential Meds Resolve 2017-042018-04-19 Laura clinically d 06-06 09:45:00 [place] significant 09:45: [id number] medication 00 issue Medication oral med Meds Resolve 2017-042018-04-05 Shari assistance d 06-06 09:45:00 Regeczi required 09:45: [id number] 00 Medication injectable Meds Resolve 2017-042018-08-09 Shari med d 06-06 09:20:00 Regeczi assistance 09:45: [id number] required 00 Musculoskel transfer Musculoske Resolve 2017-042018-04-12 Shari etal assistance letal d 06-06 09:45:00 Regeczi required 09:45: [id number] 00 Medication oral med Meds Resolve 2017-042018-04-19 Laura assistance d 06-08 09:45:00 [place] required 10:00: [id number] 00 Medication injectable Meds Unknown 2017-04 Laura med 06-08 Jean-Claude assistance 10:00: [id number] required 00 Sensory impaired Sensory Resolve 2017-042018-04-19 Nima verbal d 06-08 09:45:00 Graves communicati 15:20: [id number] on 00 Sensory impaired Sensory Resolve 2017-042018-04-19 Nima hearing d 06-08 09:45:00 Graves 15:20: [id number] 00 Medication injectable Meds Unknown 2017-04 Nhung med Pérez assistance 14:56: [id number] required 00 Medication injectable Meds Unknown Nima med 04-13 Graves assistance 13:50: [id number] required 00 Elimination constipatio Eliminatio Resolve 2018-04-19 Laura n n d 04-14 09:45:00 Jean-Claude 09:28: [id number] 00 Medication injectable Meds Unknown Luara med 04-17 Jean-Claude assistance 10:00: [id number] required 00 Medication injectable Meds Resolve 2018-04-19 Laura med d 04-19 09:45:00 Jean-Claude assistance 09:45: [id number] required 00 Endo/Edgard anti-coagul Endo/Edgard Resolve 2018-04-26 Laura ation d 04-21 10:15:00 Jean-Claude therapy 09:45: [id number] 00 Nutrition knowledge/s Nutrition Resolve 2018-04-26 Laura kill d 04-21 10:15:00 [place] deficit: pt 09:45: [id number] 00 Nutrition nutritional Nutrition Resolve 2018-04-26 Laura restriction d 04-21 10:15:00 Jean-Claude s 09:45: [id number] 00 Elimination catheter Eliminatio Resolve 2018-04-26 Laura present n d 04-21 10:15:00 Jean-Claude 09:45: [id number] 00 Elimination constipatio Eliminatio Resolve 2018-04-26 Laura n n d 04-21 10:15:00 Jean-Claude 09:45: [id number] 00 Safety risk for Safety Resolve 2018-04-26 Laura hospitaliza d 1-11 10:15:00 [place] tion 09:45: [id number] 00 Safety can be left Safety Resolve 2018-04-26 Laura alone for d 1-11 10:15:00 [place] only short 09:45: [id number] periods 00 Sensory impaired Sensory Resolve 2018-04-26 Nima verbal d 1-11 10:15:00 Graves communicati 14:30: [id number] on 00 Sensory impaired Sensory Resolve 2018-04-26 Nima hearing d 1-11 10:15:00 Graves 14:30: [id number] 00 Sensory impaired Sensory Resolve 2018-04-28 Nima verbal d 1-17 10:20:00 Graves communicati 12:45: [id number] on 00 Sensory impaired Sensory Resolve 2018-04-28 Nima hearing d 1-17 10:20:00 Graves 12:45: [id number] 00 Endo/Edgard anti-coagul Endo/Edgard Resolve 2018-05-24 Laura ation d 1-18 12:30:00 [place] therapy 10:20: [id number] 00 Safety risk for Safety Active Laura hospitaliza - [place] tion 10:20: [id number] 00 Safety can be left Safety Resolve 2018-05-10 Laura alone for d 1- 13:45:00 Jean-Claude only short 10:10: [id number] Sensory impaired Sensory Resolve 2018-05-10 Jia hearing d 05-05 13:45:00 Hillebrand 13:30: t 00 [id number] Sensory impaired Sensory Resolve 2018-05-10 Jia verbal d 1 13:45:00 Hillebrand communicati 13:30: t on 00 [id number] Elimination catheter Eliminatio Resolve 2018-05-08 Wandy present n d 05-08 08:50:00 ,Kaylee 08:50: 00 Elimination constipatio Eliminatio Resolve 2018-06-28 Wandy n n d 05-08 09:45:00 ,Kaylee 08:50: 00 Safety cannot be Safety Resolve 2018-05-10 Laura left alone d 1- 13:45:00 [place] 08:50: [id number] 00 Elimination catheter Eliminatio Resolve 2018-05-12 Shari present n d 2- 09:30:00 Regeczi 09:30: [id number] 00 Safety can be left Safety Resolve 2018-05-17 Laura alone for d - 10:00:00 Jean-Claude only short 09:30: [id number] periods 00 Elimination urinary Eliminatio Resolve 2018-05-15 Laura incontinenc n d 05-15 08:45:00 Jean-Claude e 08:45: [id number] 00 Pain frequent Pain Mgmt Resolve 2018-05-17 Laura pain d 2-06 10:00:00 [place] 10:00: [id number] 00 Respiratory lung sounds Respirator Resolve 2018-05-22 Laura deficit y d 2-06 10:44:00 Jean-Claude 10:00: [id number] 00 Integument pressure Integument Unknown Laura ulcer 2-06 [place] present 10:00: [id number] 00 Integument skin Integument Resolve 2018-05-17 Laura integrity d 2-06 10:00:00 Jean-Claude risk 10:00: [id number] 00 Integument surgical Integument Resolve 2018-05-17 Laura wound d 2-06 10:00:00 Jean-Claude present 10:00: [id number] 00 Activity ADL Activity Unknown 2018- Laura assistance 2-06 [place] required 10:00: [id number] 00 Activity self-care Activity Resolve 2018-05-19 Laura deficit d 2-06 11:15:00 [place] 10:00: [id number] 00 Safety fall risk Safety Resolve 2018-05-19 Laura factor d 2-06 11:15:00 [place] present 10:00: [id number] 00 Elimination urinary Eliminatio Resolve 2018-05-24 Thornberry incontinenc n d 2- 12:30:00 Kaylee 11:15: 00 Safety can be left Safety Resolve 2018-05-24 Laura alone for d 2-08 12:30:00 Jean-Claude only short 11:15: [id number] periods 00 Safety fall risk Safety Resolve 2018-05-24 Sonia White factor d 2-12 12:30:00 present 09:48: 41 Endo/Edgard glucose Endo/Edgard Resolve 2018-05-24 Laura tolerance d 2-13 12:30:00 Jean-Claude problem 12:30: [id number] 00 Respiratory Incentive Respirator Resolve 2018-06-07 Laura Spirometer y d 2-15 12:00:00 [place] /Acapella 13:40: [id number] Device 00 treatments in home Endo/Edgard anti-coagul Endo/Edgard Resolve 2018-06-12 Laura ation d 2-15 09:30:00 [place] therapy 13:40: [id number] 00 Elimination urinary Eliminatio Resolve 2018-05-26 Laura incontinenc n d 2-15 13:40:00 Jean-Claude e 13:40: [id number] 00 Safety can be left Safety Resolve 2018-06-07 Laura alone for d 2-15 12:00:00 Jean-Claude only short 13:40: [id number] periods 00 Endo/Edgard glucose Endo/Edgard Resolve 2018-06-07 Cherrise tolerance d 2-22 12:00:00 Trixie problem 10:15: [id number] 00 Endo/Edgard insulin Endo/Edgard Resolve 2018-06-12 Cherrise admn d 2-22 09:30:00 [place] dependence 10:15: [id number] 00 Endo/Edgard glucose Endo/Edgard Resolve 2018-06-12 Cherrise testing d 2- 09:30:00 [place] dependence 10:15: [id number] 00 Safety fall risk Safety Resolve 2018-06-07 Cherrise factor d 2-22 12:00:00 [place] present 10:15: [id number] 00 Musculoskel transfer Musculoske Active Cherrise etal assistance letal 06-02 [place] required 10:15: [id number] 00 Musculoskel requires Musculoske Active Cherrise etal human letal 2 [place] assist to 10:15: [id number] leave home 00 Elimination urinary Eliminatio Resolve 2018-06-07 Laura incontinenc n d 06-05 12:00:00 Jean-Claude e 12:30: [id number] 00 Activity self-care Activity Resolve 2018-08-14 Laura deficit d 06-05 12:10:00 Jean-Claude 12:30: [id number] 00 Elimination urinary Eliminatio Resolve 2018-06-12 Laura incontinenc n d 06-09 09:30:00 Jean-Claude e 09:13: [id number] 00 Safety can be left Safety Resolve 2018-06-12 Laura alone for d 06-09 09:30:00 Jean-Claude only short 09:13: [id number] periods 00 Respiratory Incentive Respirator Resolve 2018-06-14 Laura Spirometer y d 06-12 09:30:00 Jean-Claude /Acapemiguel 09:30: [id number] Device 00 treatments in home Endo/Edgard anti-coagul Endo/Edgard Resolve 2018-06-30 Laura ation d 06-14 09:19:00 [place] therapy 09:30: [id number] 00 Safety can be left Safety Resolve 2018-06-30 Laura alone for d 06-14 09:19:00 Jean-Claude alejo 09:30: [id number] periods 00 Elimination urinary Eliminatio Resolve 2018-06-19 Laura incontinenc n d 06-16 13:45:00 Jean-Claude e 09:45: [id number] 00 Elimination urinary Eliminatio Resolve 2018-06-28 Laura incontinenc n d 06-23 09:45:00 Jean-Claude e 13:15: [id number] 00 Elimination constipatio Eliminatio Resolve 2018-07-14 Laura n n d 06-30 09:20:00 Jean-Claude 09:19: [id number] 00 Endo/Edgard anti-coagul Endo/Edgard Resolve 2018-07-14 Laura ation d 07-03 09:20:00 Jean-Claude therapy 12:49: [id number] 00 Elimination urinary Eliminatio Resolve 2018-07-14 Laura incontinenc n d 07-03 09:20:00 Jean-Claude e 12:49: [id number] 00 Safety can be left Safety Resolve 2018-08-18 Laura alone for d 07-07 12:05:00 Jean-Claude only short 12:50: [id number] periods 00 Endo/Edgard glucose Endo/Edgard Resolve 2018-07-14 Shi testing d 07-10 09:20:00 Sorin, dependence 12:30: [id number] 00 Pain frequent Pain Mgmt Resolve 2018-07-14 Laura pain d 07-14 09:20:00 [place] 09:20: [id number] 00 Integument surgical Integument Resolve 2018-08-13 Laura wound d 07-14 12:50:00 [place] present 09:20: [id number] 00 Integument skin Integument Resolve 2018-08-13 Laura integrity d 07-14 12:50:00 Jean-Lcaude risk 09:20: [id number] 00 Safety fall risk Safety Resolve 2018-08-18 Laura factor d 07-14 12:05:00 [place] present 09:20: [id number] 00 Endo/Edgard anti-coagul Endo/Edgard Resolve 2018-08-14 Laura ation d 07-17 12:10:00 Jean-Claude therapy 13:00: [id number] 00 Elimination urinary Eliminatio Resolve 2018-07-21 Laura incontinenc n d 07-17 09:25:00 Jean-Claude e 13:00: [id number] 00 Activity ADL Activity Unknown Laura assistance 07-17 Jean-Claude required 13:00: [id number] 00 Elimination urinary Eliminatio Resolve 2018-08-14 Laura incontinenc n d 07-24 12:10:00 [place] e 09:27: [id number] 00 Pain frequent Pain Mgmt Resolve 2018 Laura pain d 08-07 09:20:00 Jean-Claude 12:45: [id number] 00 Cardio edema Cardiovasc Resolve 2018 Laura ular d 08-07 09:20:00 Jean-Claude 12:45: [id number] 00 Respiratory dyspnea Respirator Resolve 2018 Laura present y d 08-07 09:20:00 Jean-Claude 12:45: [id number] 00 Endo/Edgard diabetic Endo/Edgard Resolve 2018-08-14 Laura foot care d 08-07 12:10:00 Jean-Claude 12:45: [id number] 00 Nutrition knowledge/s Nutrition Active Laura kill 08-07 Jean-Claude deficit: pt 12:45: [id number] 00 Nutrition nutritional Nutrition Active Laura restriction 08-07 Jean-Claude s 12:45: [id number] 00 Neuro confusion Neuro/Emot Resolve 2018-08-14 Laura present ion d 08-07 12:10:00 Jean-Claude 12:45: [id number] 00 Medication oral med Meds Resolve 2018 Laura assistance d 08-07 09:20:00 [place] required 12:45: [id number] 00 Medication injectable Meds Resolve 2018 Jia med d 08-07 09:20:00 Jerardo assistance 12:45: [id number] required 00 Cardio edema Cardiovasc Resolve 2018-08-23 Laura ular d 08-13 11:15:00 Jean-Claude 12:50: [id number] 00 Respiratory dyspnea Respirator Resolve 2018-08-14 Laura present y d 08-13 12:10:00 Jean-Claude 12:50: [id number] 00 Endo/Edgard anti-coagul Endo/Edgard Resolve 2018-08-28 Laura ation d 08-16 12:00:00 Jean-Claude therapy 12:15: [id number] 00 Elimination urinary Eliminatio Resolve 2018-08-21 Laura incontinenc n d 08-16 12:45:00 Jean-Claude e 12:15: [id number] 00 Sensory impaired Sensory Resolve 2018-08-21 Krystyna verbal d 08-17 12:45:00 [place] communicati 14:30: [id number] on 00 Sensory impaired Sensory Resolve 2018-08-21 Krystyna hearing d 08-17 12:45:00 [place] 14:30: [id number] 00 Social financial LILLIAN: Resolve 2019-02-16 Krystyna Services resource Social d 08-17 13:45:00 [place] deficit Services 14:30: [id number] 00 Social knowledge/s LILLIAN: Resolve 2018-08-17 Krystyna Services kill Social d 08-17 14:30:00 [place] deficit - Services 14:30: [id number] pt 00 Social knowledge/s LILLIAN: Resolve 2018-08-17 Krystyna Services kill Social d 08-17 14:30:00 [place] deficit - Services 14:30: [id number] cg 00 Safety can be left Safety Resolve 2018-09-07 Laura alone for d 5-15 10:00:00 Jean-Claude cruz short 11:15: [id number] periods 00 Social knowledge/s LILLIAN: Active Laura Services kill Social 08-23 Jean-Claude deficit - Services 11:15: [id number] pt 00 Elimination urinary Eliminatio Resolve 2018-09-07 Laura incontinenc n d 08-25 10:00:00 Jean-Claude e 11:45: [id number] 00 Sensory impaired Sensory Resolve 2018-09-07 Krystyna verbal d 09-01 [facility] 14[facility]: [id number] on 00 Sensory impaired Sensory Resolve 2018-09-07 Krystyna hearing d 09-01 10:00:00 [facility] 14:45: [id number] 00 Social knowledge/s LILLIAN: Active Krystyna Services kill Social 09-01 [place] deficit - Services 14:45: [id number] cg 00 Respiratory dyspnea Respirator Resolve 2018-09-15 Laura present y d 09-07 10:35:00 Jean-Claude 10:00: [id number] 00 Pain frequent Pain Mgmt Resolve 2018-09-11 Laura pain d 09-11 11:50:00 Jean-Claude 11:50: [id number] 00 Cardio hypertensio Cardiovasc Resolve 2018-09-11 Laura n ular d 09-11 11:50:00 Jean-Claude 11:50: [id number] 00 Integument pressure Integument Resolve 2018-09-15 Laura ulcer d 6 10:35:00 Jean-Claude present 11:50: [id number] 00 Integument surgical Integument Resolve 2018-09-15 Laura wound d 6-03 10:35:00 Jean-Claude present 11:50: [id number] 00 Integument skin Integument Resolve 2018-09-15 Laura integrity d 09-11 10:35:00 Jean-Claude risk 11:50: [id number] 00 Elimination urinary Eliminatio Resolve 2018-09-11 Laura incontinenc n d 09-11 11:50:00 [place] e 11:50: [id number] 00 Activity ADL Activity Unknown Laura assistance 09-11 Jean-Claude required 11:50: [id number] 00 Activity self-care Activity Resolve 2018-09-15 Laura deficit d 09-11 10:35:00 Jean-Claude 11:50: [id number] 00 Safety fall risk Safety Resolve 2018-09-15 Laura factor d 09-11 10:35:00 Jean-Claude present 11:50: [id number] 00 Safety can be left Safety Resolve 2018-09-15 Laura alone for d 09-11 10:35:00 Jean-Claude only short 11:50: [id number] periods 00 Endo/Edgard anti-coagul Endo/Edgard Resolve 2018-09-18 Laura ation d 09-15 12:20:00 [place] therapy 10:35: [id number] 00 Elimination urinary Eliminatio Resolve 2018-09-18 Laura incontinenc n d 09-15 12:20:00 Jean-Claude e 10:35: [id number] 00 Elimination constipatio Eliminatio Resolve 2018-09-18 Laura n n d 09-15 12:20:00 Jean-Claude 10:35: [id number] 00 Safety can be left Safety Resolve 2018-09-25 Laura alone for d 610 11:45:00 Jean-Claude only short 12:20: [id number] periods 00 Cardio hypertensio Cardiovasc Resolve 2018-09-21 Laura n ular d 09-21 11:45:00 Jean-Claude 11:45: [id number] 00 Endo/Edgard anti-coagul Endo/Edgard Resolve 2018-09-25 Laura ation d 09-21 11:45:00 [place] therapy 11:45: [id number] 00 Cardio hypertensio Cardiovasc Resolve 2018-10-02 Laura n ular d 6- 12:05:00 Jean-Claude 11:45: [id number] 00 Elimination urinary Eliminatio Resolve 2018-10-02 Laura incontinenc n d 6 12:05:00 Jean-Claude e 11:45: [id number] 00 Endo/Edgard anti-coagul Endo/Edgard Resolve 2018-10-02 Laura ation d 09-29 12:05:00 Jean-Claude therapy 09:45: [id number] 00 Safety can be left Safety Resolve 2018-10-02 Laura alone for d 09-29 12:05:00 Jean-Claude only short 09:45: [id number] 00 Endo/Edgard anti-coagul Endo/Edgard Resolve 2018-10-27 Laura ation d 10-04 11:30:00 Jean-Claude therapy 10:10: [id number] 00 Elimination urinary Eliminatio Resolve 2018-10-06 Laura incontinenc n d 10-04 09:10:00 Jean-Claude e 10:10: [id number] 00 Elimination constipatio Eliminatio Resolve 2018-10-06 Laura n n d 10-04 09:10:00 Jean-Claude 10:10: [id number] 00 Safety can be left Safety Resolve 2018-10-06 Laura alone for d 10-04 09:10:00 Jean-Claude only short 10:10: [id number] Sensory impaired Sensory Resolve 2018-10-23 Krystyna verbal d 10-05 11:56:00 [place] communicati 15:00: [id number] on 00 Sensory impaired Sensory Resolve 2018-10-23 Krystyna hearing d 10-05 11:56:00 [place] 15:00: [id number] 00 Elimination urinary Eliminatio Resolve 2018-10-27 Laura incontinenc n d 10-09 11:30:00 Jean-Claude butler 12:15: [id number] 00 Elimination bloody Eliminatio Resolve 2018-10-27 Laura urine n d 10-09 11:30:00 Jean-Claude 12:15: [id number] 00 Safety can be left Safety Resolve 2018-10-23 Laura alone for d 10-09 11:56:00 Jean-Claude only short 12:15: [id number] periods Elimination constipatio Eliminatio Resolve 2018-12-08 Laura n n d 10-16 14:00:00 Jean-Claude 12:35: [id number] 00 Cardio edema Cardiovasc Resolve 2018-10-27 Laura ular d 10-20 11:30:00 Jean-Claude 11:35: [id number] 00 Endo/Edgard knowledge/s Endo/Edgard Resolve 2018-10-27 Laura kill d 10-20 11:30:00 Jean-Claude deficit: pt 11:35: [id number] 00 Sensory impaired Sensory Unknown Jonatan verbal 7-15 Demarco, communicati 13:30: PT on [id number] Sensory impaired Sensory Unknown Jonatan hearing 15 Demarco, 13:30: PT [id number] Safety can be left Safety Resolve 2018-10-27 Laura alone for d 10-25 11:30:00 Jean-Claude cruz short 10:35: [id number] 00 Endo/Edgard glucose Endo/Edgard Resolve 2018-12-11 Cherrise tolerance d 10-30 09:30:00 Trixie problem 11:55: [id number] 00 Endo/Edgard insulin Endo/Edgard Resolve 2018-12-13 Cherrise admn d 10-30 11:10:00 Trixie dependence 11:55: [id number] 00 Endo/Edgard glucose Endo/Edgard Resolve 2018-12-13 Cherrise testing d 10-30 11:10:00 Trixie dependence 11:55: [id number] 00 Endo/Edgard knowledge/s Endo/Edgard Resolve 2018-12-08 Cherrise kill d 10-30 14:00:00 North deficit: pt 11:55: [id number] 00 Elimination urinary Eliminatio Resolve 2018-12-08 Cherrise urgency n d 10-30 14:00:00 Trixie 11:55: [id number] 00 Neuro depressive Neuro/Emot Resolve 2018-12-08 Cherrise feelings ion d 10-30 14:00:00 Trixie present 11:55: [id number] 00 Neuro impaired Neuro/Emot Resolve 2018-12-08 Cherrise decision-ma ion d 10-30 14:00:00 North pj 11:55: [id number] 00 Safety fall risk Safety Resolve 2018-12-06 Cherrise factor d 10-30 13:05:00 North present 11:55: [id number] 00 Endo/Edgard anti-coagul Endo/Edgard Resolve 2018-12-13 Shi ation d 11-01 11:10:00 Sorin, therapy 12:30: [id number] 00 Respiratory Incentive Respirator Resolve 2018-11-29 Cherrise Spirometer y d 11-03 10:15:00 Trixie /Acapella 10:25: [id number] Device 00 treatments in home Elimination urinary Eliminatio Resolve 2018-12-08 Cherrise frequency n d 11-03 14:00:00 North 10:25: [id number] 00 Respiratory lung sounds Respirator Resolve 2018-11-29 Cherrise deficit y d 11-06 10:15:00 Trixie 12:05: [id number] 00 Neuro memory Neuro/Emot Resolve 2018-12-08 Cherrise deficit ion d 11-08 14:00:00 North needing 10:30: [id number] supervision 00 Pain frequent Pain Mgmt Resolve 2018-12-06 Shi pain d 11-10 13:05:00 Sorin, 11:00: [id number] 00 Integument pressure Integument Active Shi ulcer 11-10 Sorin, present 11:00: [id number] 00 Integument surgical Integument Active 2018- Shi wound 11-10 Sorin, present 11:00: [id number] 00 Integument skin Integument Active 2018- Shi integrity 11-10 Sorin, risk 11:00: [id number] 00 Elimination urinary Eliminatio Resolve 2018-12-08 Shi incontinenc n d 11-10 14:00:00 Sorin, e 11:00: [id number] 00 Activity self-care Activity Resolve 2018-11-29 Shi deficit d 11-10 10:15:00 Sorin, 11:00: [id number] 00 Activity ADL Activity Resolve 2018-12-08 Shi assistance d 11-10 14:00:00 Sorin, required 11:00: [id number] 00 Pain knowledge/s Pain Mgmt Resolve 2018-12-06 Krystyna kill d 11-16 13:05:00 [place] deficit: cg 15:15: [id number] 00 Respiratory knowledge/s Respirator Resolve 2018-11-29 Krystyna kill y d 11-16 10:15:00 [place] deficit: cg 15:15: [id number] 00 Integument knowledge/s Integument Active Krystyna kill 11-16 [place] deficit: cg 15:15: [id number] 00 Elimination knowledge/s Eliminatio Resolve 2018-12-08 Krystyna kill n d 11-16 14:00:00 [place] deficit: cg 15:15: [id number] 00 Safety knowledge/s Safety Resolve 2018-12-06 Krystyna kill d 11-16 13:05:00 [place] deficit: cg 15:15: [id number] 00 Cardio hypertensio Cardiovasc Resolve 2018-11-29 Lenny jarvis joseph d 11-17 10:15:00 North 10:45: [id number] 00 Safety can be left Safety Resolve 2018-12-08 Shi alone for d 11-22 14:00:00 nancy Rowell short 11:00: [id number] periods 00 Sensory impaired Sensory Resolve 2018-12-08 Laura verbal d 11-24 14:00:00 Jean-Claude communicati 09:30: [id number] on 00 Sensory impaired Sensory Resolve 2018-12-08 Laura hearing d 11-24 14:00:00 Jean-Claude 09:30: [id number] 00 Respiratory knowledge/s Respirator Resolve 2018-12-08 Laura kill y d 12-01 14:00:00 [place] deficit: cg 09:30: [id number] 00 Sensory impaired Sensory Unknown Krystyna verbal 8 [place] communicati 15:00: [id number] on 00 Sensory impaired Sensory Unknown Krystnya hearing 12-08 [place] 15:00: [id number] 00 Respiratory knowledge/s Respirator Resolve 2018-12-13 Laura kill y d 12-11 11:10:00 Jean-Claude deficit: cg 09:30: [id number] 00 Endo/Edgard knowledge/s Endo/Edgard Resolve 2018-12-13 Laura kill d 12-11 11:10:00 [place] deficit: pt 09:30: [id number] 00 Elimination urinary Eliminatio Resolve 2018-12-15 Laura incontinenc n d 12-11 13:10:00 Jean-Claude e 09:30: [id number] 00 Safety can be left Safety Resolve 2018-12-15 Laura alone for d 12-11 13:10:00 Jean-Claude only short 09:30: [id number] 00 Endo/Edgard knowledge/s Endo/Edgard Resolve 2019-01-05 Laura kill d 12-15 11:00:00 Jean-Claude deficit: pt 13:10: [id number] 00 Endo/Edgard anti-coagul Endo/Edgard Resolve 2019-01-05 Laura ation d 12-15 11:00:00 Jean-Claude therapy 13:10: [id number] 00 Elimination urinary Eliminatio Resolve 2018-12-27 Laura incontinenc n d 12-18 09:20:00 Jean-Claude e 12:10: [id number] 00 Safety can be left Safety Resolve 2019-01-05 Laura alone for d 12-18 11:00:00 Jean-Claude only short 12:10: [id number] periods 00 Elimination constipatio Eliminatio Resolve 2019-01-05 Laura n n d 12-20 11:00:00 Jean-Claude 12:15: [id number] 00 Pain frequent Pain Mgmt Resolve 2019-01-15 Laura pain d 12-27 12:30:00 Jean-Claude 09:20: [id number] 00 Respiratory dyspnea Respirator Resolve 2019-01-05 Laura present y d 12-27 11:00:00 Jean-Claude 09:20: [id number] 00 Endo/Edgard diabetic Endo/Edgard Resolve 2019-01-05 Laura foot care d 9 11:00:00 Jean-Claude 09:20: [id number] 00 Elimination diarrhea Eliminatio Resolve 2019-01-05 Laura n d 18 11:00:00 Jean-Claude 09:20: [id number] 00 Neuro confusion Neuro/Emot Resolve 2019-01-05 Laura present ion d 12-27 11:00:00 Jean-Claude 09:20: [id number] 00 Neuro anxiety Neuro/Emot Resolve 2019-01-05 Laura present ion d 12-27 11:00:00 Jean-Claude 09:20: [id number] 00 Activity ADL Activity Resolve 2019-01-05 Laura assistance d 12-27 11:00:00 Jean-Claude required 09:20: [id number] 00 Activity self-care Activity Resolve 2019-01-05 Laura deficit d 12-27 11:00:00 Jean-Claude 09:20: [id number] 00 Safety fall risk Safety Resolve 2019-01-05 Laura factor d 12-27 11:00:00 Jean-Claude present 09:20: [id number] 00 Medication potential Meds Resolve 2019-01-05 Laura clinically d 12-27 11:00:00 [place] significant 09:20: [id number] medication 00 issue Elimination urinary Eliminatio Resolve 2019-01-05 Laura incontinenc n d 12-29 11:00:00 Jean-Claude e 11:20: [id number] 00 Endo/Edgard knowledge/s Endo/Edgard Resolve 2019-01-10 Laura kill d 01-08 10:00:00 Jean-Claude deficit: pt 11:30: [id number] 00 Endo/Edgard anti-coagul Endo/Edgard Resolve 2019-01-10 Laura ation d 01-08 10:00:00 [place] therapy 11:30: [id number] 00 Elimination urinary Eliminatio Resolve 2019-01-15 Laura incontinenc n d 01-08 12:30:00 [place] e 11:30: [id number] 00 Safety can be left Safety Resolve 2019-02-16 Laura alone for d 9-30 12:00:00 [place] only short 11:30: [id number] periods 00 Respiratory dyspnea Respirator Resolve 2018-042019-01-26 Laura present y d 0-02 10:00:00 Jean-Claude 10:00: [id number] 00 Activity ADL Activity Resolve 2018-042019-01-12 Laura assistance d 0-02 11:30:00 [place] required 10:00: [id number] 00 Activity self-care Activity Resolve 2018-042019-01-12 Laura deficit d 0-02 11:30:00 [place] 10:00: [id number] 00 Safety fall risk Safety Resolve 2018-042019-01-12 Laura factor d 0-02 11:30:00 Jean-Claude present 10:00: [id number] 00 Medication injectable Meds Resolve 2018-042019-01-17 Laura med d 0-02 09:45:00 Jean-Claude assistance 10:00: [id number] required 00 Endo/Edgard knowledge/s Endo/Edgard Resolve 2018-042019-01-15 Laura kill d 0-04 12:30:00 Jean-Claude deficit: pt 11:30: [id number] 00 Endo/Edgard anti-coagul Endo/Edgard Resolve 2018-042019-01-15 Laura ation d 0-04 12:30:00 [place] therapy 11:30: [id number] 00 Elimination constipatio Eliminatio Resolve 2018-042019-01-15 Laura n n d 0-04 12:30:00 Jean-Claude 11:30: [id number] 00 Sensory impaired Sensory Resolve 2018-042019-01-15 Krystyna verbal d 0-04 12:30:00 Kathy communicati 15:30: [id number] on 00 Sensory impaired Sensory Resolve 2018-042019-01-15 Krystyna hearing d 0-04 12:30:00 [place] 15:30: [id number] 00 Infection s/s of Infection Resolve 2018-042019-03-09 Laura infection d 0-07 11:00:00 Jean-Claude 12:30: [id number] 00 Sensory impaired Sensory Resolve 2018-042019-01-22 Jonatan verbal d 0-08 11:00:00 ambrosio Pal 13:00: PT on 00 535136-8 Sensory impaired Sensory Resolve 2018-042019-01-22 Jonatan hearing d 0-08 11:00:00 Demarco, 13:00: PT 00 [id number] Endo/Edgard knowledge/s Endo/Edgard Resolve 2018-042019-02-07 Laura kill d 0-09 11:20:00 [place] deficit: pt 09:45: [id number] 00 Endo/Edgard anti-coagul Endo/Edgard Resolve 2018-042019-02-07 Laura ation d 0-09 11:20:00 Jean-Claude therapy 09:45: [id number] 00 Elimination urinary Eliminatio Resolve 2018-042019-02-02 Laura incontinenc n d 0-09 11:30:00 Jean-Claude e 09:45: [id number] 00 Elimination constipatio Eliminatio Resolve 2018-042019-02-02 Laura n n d 0-16 11:30:00 Jean-Claude 10:00: [id number] 00 Sensory impaired Sensory Resolve 2018-042019-01-31 Jonatan verbal d 0-17 11:10:00 Demarco, communicfloerntino 15:00: PT on 00 [id number] Sensory impaired Sensory Resolve 2018-042019-01-31 Jonatan hearing d 0-17 11:10:00 Demarco, 15:00: PT 00 [id number] Pain frequent Pain Mgmt Resolve 2018-042019-02-16 Jonatan pain d 0-23 12:00:00 Demarco, 13:00: PT 00 [id number] Sensory impaired Sensory Unknown 2018-04 Jonatan verbal 0-23 Demarco, communicati 13:00: PT on 00 [id number] Sensory impaired Sensory Unknown 2018-04 Jonatan hearing 0-23 Demarco, 13:00: PT 00 [id number] Respiratory dyspnea Respirator Resolve 2018-042019-02-07 Laura present y d 0-25 11:20:00 [place] 11:30: [id number] 00 Elimination urinary Eliminatio Resolve 2018-042019-02-07 Laura incontinenc n d 0-28 11:20:00 [place] e 12:40: [id number] 00 Endo/Edgard knowledge/s Endo/Edgard Resolve 2018-042019-02-19 Laura kill d 1 12:40:00 [place] deficit: pt 12:30: [id number] 00 Endo/Edgard anti-coagul Endo/Edgard Resolve 2018-042019-02-19 Laura ation d 04-11 12:40:00 [place] therapy 12:30: [id number] 00 Elimination urinary Eliminatio Resolve 2018-042019-02-16 Laura incontinenc n d 04-11 12:00:00 [place] e 12:30: [id number] 00 Medication potential Meds Resolve 2018-042019-02-24 Laura clinically d 04-14 09:45:00 [place] significant 12:20: [id number] medication 00 issue Elimination constipatio Eliminatio Resolve 2018-042019-02-16 Laura n n d 04-16 12:00:00 Jean-Claude 11:20: [id number] 00 Elimination urinary Eliminatio Resolve 2018-042019-02-24 Laura incontinenc n d 04-21 09:45:00 Jean-Claude e 12:40: [id number] 00 Safety can be left Safety Resolve 2018-042019-02-24 Laura alone for d 04-21 09:45:00 Jean-Claude only short 12:40: [id number] periods 00 Endo/Edgard knowledge/s Endo/Edgard Resolve 2018-042019-02-24 Laura kill d 04-23 09:45:00 Jean-Claude deficit: pt 12:05: [id number] 00 Endo/Edgard anti-coagul Endo/Edgard Resolve 2018-042019-02-24 Laura ation d 04-23 09:45:00 Jean-Claude therapy 12:05: [id number] 00 Sensory impaired Sensory Resolve 2018-042019-02-26 Laura verbal d 04-26 13:20:00 Jean-Claude communicati 09:45: [id number] on 00 Sensory impaired Sensory Resolve 2018-042019-02-26 Laura hearing d 04-26 13:20:00 [place] 09:45: [id number] 00 Endo/Edgard knowledge/s Endo/Edgard Resolve 2018-042019-02-28 Laura kill d 04-28 11:15:00 Jean-Claude deficit: pt 13:20: [id number] 00 Endo/Edgard anti-coagul Endo/Edgard Resolve 2018-042019-02-28 Laura ation d 04-28 11:15:00 [place] therapy 13:20: [id number] 00 Elimination urinary Eliminatio Resolve 2018-042019-03-09 Larua incontinenc n d 04-28 11:00:00 [place] e 13:20: [id number] 00 Safety can be left Safety Resolve 2018-042019-03-05 Laura alone for d 04-28 12:45:00 [place] only short 13:20: [id number] periods 00 Endo/Edgard knowledge/s Endo/Edgard Resolve 2018-042019-03-09 Laura kill d 05-05 11:00:00 [place] deficit: pt 12:45: [id number] 00 Endo/Edgard anti-coagul Endo/Edgard Resolve 2018-042019-03-09 Laura ation d 05-05 11:00:00 [place] therapy 12:45: [id number] 00 Safety can be left Safety Resolve 2018-042019-03-09 Laura alone for d 05-07 11:00:00 [place] only short 11:25: [id number] 00 Sensory impaired Sensory Resolve 2018-042019-03-12 Krystyna verbal d 05-09 11:15:00 [place] communicati 12:00: [id number] on 00 Sensory impaired Sensory Resolve 2018-042019-03-12 Krystyna hearing d 05-09 11:15:00 [place] 12:00: [id number] 00 Social financial LILLIAN: Active 2018-04 Krystyna Services resource Social 05-09 [facility] deficit Services 12:00: [id number] 00 Respiratory dyspnea Respirator Active 2018-04 Laura present y 05-13 Jean-Claude 11:15: [id number] 00 Endo/Edgard knowledge/s Endo/Edgard Active 2018-04 Laura kill 05-13 Jean-Claude deficit: pt 11:15: [id number] 00 Endo/Edgard anti-coagul Endo/Edgard Active 2018-04 Laura ation 05-13 Jean-Claude therapy 11:15: [id number] 00 Elimination urinary Eliminatio Active 2018-04 Laura incontinenc n - [place] e 11:15: [id number] 00 Activity ADL Activity Active 2018-04 Laura assistance 05-13 Jean-Claude required 11:15: [id number] 00 Activity self-care Activity Active 2018-04 Laura deficit - Jean-Claude 11:15: [id number] 00 Safety fall risk Safety Active 2018-04 Laura factor 2-02 Jean-Claude present 11:15: [id number] 00 Medication injectable Meds Resolve 2018-042019-03-12 Laura med d 2- 11:15:00 Jean-Claude assistance 11:15: [id number] required 00 Allergies, Adverse Reactions, Alerts Allergy Name Allergy Status Severity Reaction(s) Onset Inactive Treating Comments Type Date Date Clinician bananas Unknown Active Unknown Reaction 2017-04 Roselyn Unknown 0-10 (Radha) Nithin [id number] keflex Unknown Active Unknown Reaction 2017-04 Roselyn Unknown 0-10 (Radha) Nithin [id number] nuts Unknown Active Unknown Reaction 2017-04 Roselyn Unknown 0-10 (Radha) Nithin [id number] Cipro Medication Active Unknown Reaction 2017-04 Sonia White Name ID Unknown 0-10 metronidazol Base Active Unknown Nausea and 2017-04 Roselyn e Ingredient vomiting 2-20 Guidelli [id number] Medications Ordered Filled Start Stop Current Ordering [...] 1 tab Unknown 200 mg 200 mg MD,Jaime tablet tablet cyclobenzap cyclobenzap No Shallish 1 [...] nded nded release release loperamide loperamide No Baker 1-2 Unknown 2 mg tablet 2 mg [...] pen s pen testosteron testosteron 2017-04 No Baker Unknown Unknown e cypionate e cypionate 06-06 Latanya DAVID 200 mg/mL 200 mg/mL intramuscul intramuscul ar kit ar kit mometasone mometasone 2017-04 No Baker Unknown Unknown 0.1 % 0.1 % 06-06 Latanya DAVID topical topical cream cream finasteride finasteride 2017-04 No Baker Unknown Unknown 5 mg tablet 5 mg tablet 06-06 Latanya DAVID Levemir Levemir 2017-04 2019- No Baker Unknown Unknown FlexTouch FlexTouch 06-06 Latanya DAVID U-100 U-100 Insulin 100 Insulin 100 unit/mL (3 unit/mL (3 mL) mL) subcutaneou subcutaneou s pen s pen Levemir Levemir Shallish Unknown Unknown FlexTouch FlexTouch 05-01 0610 [...] Shallish Unknown Unknown mg tablet mg tablet 08-2115 MD,Jamie warfarin 5 warfarin 5 Shallish Unknown Unknown mg tablet mg tablet 08-23 MD,Jamie Coumadin Coumadin Shallish Unknown Unknown 2.5 mg 2.5 mg 08-25 05-20 MD,Jamie tablet tablet Coumadin Coumadin Shallish Unknown Unknown 2.5 mg 2.5 mg 08-28 05-30 MD,Jamie tablet tablet Coumadin Coumadin Shallish Unknown Unknown 2.5 mg 2.5 mg 09-07 05-30 MD,Jamie tablet tablet Coumadin Coumadin Shallish Unknown Unknown 2.5 mg 2.5 mg 09-07 06-03 MD,Jamie tablet tablet Coumadin Coumadin 2018- No Shallish Unknown Unknown 2.5 mg 2.5 mg 6-03 06-07 MD,Jamie tablet tablet Coumadin Coumadin 2018- No [...] Observation Time Observation Value Comments SYSTOLIC mm[Hg] 2019-03-12 18:09:09 140 mm[Hg] mm[Hg] Method: Sit SYSTOLIC mm[Hg] 2018-01-23 18:02:16 122 mm[Hg] mm[Hg] Method: Stand DIASTOLIC mm[Hg] 2019-03-12 18:09:09 78 mm[Hg] mm[Hg] Method: Sit DIASTOLIC mm[Hg] 2018-01-23 18:02:16 60 mm[Hg] mm[Hg] Method: Stand PULSE 2019-03-12 18:09:09 70 /min /min RESP RATE 2019-03-12 18:09:09 18 /min /min TEMP 2019-03-12 18:09:09 98.2 [degF] Procedures This patient has no known procedures. Results This patient has no known results.
--- OUTSIDE RECORDS SUMMARY | 2019-04-11 14:40 | XMS REPORT ---
:1940 Author Organization [facility] Care Team Providers Name Role Phone Unavailable Unavailable Unavailable Problems Condition Condition Condition Status Onset Resolution Last Treating Comments Name Details Category Date Date Treatment Clinician Date Pain frequent Pain Mgmt Resolve 2017-042018-05-08 Roselyn pain d 0-10 08:50:00 (Radha) 11:15: Weller 00 [id number] Cardio edema Cardiovasc Resolve 2017-042018-02-20 Roselyn ular d 0-10 09:50:00 (Radha) 11:15: Weller 00 [id number] Respiratory dyspnea Respirator Resolve 2017-042018-02-15 Roselyn present y d 0-10 10:20:00 (Radha) 11:15: Weller 00 [id number] Endo/Edgard glucose Endo/Edgard Resolve 2017-042018-03-20 Roselyn testing d 0-10 12:30:00 (Radha) dependence 11:15: Weller 00 [id number] Endo/Edgard knowledge/s Endo/Edgard Resolve 2017-042018-03-06 Roselyn kill d 0-10 09:30:00 (Radha) deficit: pt 11:15: Weller 00 [id number] Endo/Edgard anti-coagul Endo/Edgard Resolve 2017-042018-03-20 Roselyn ation d 0-10 12:30:00 (Radha) therapy 11:15: Weller 00 [id number] Endo/Edgard diabetic Endo/Edgard Resolve 2017-042018-03-06 Roselyn foot care d 0-10 09:30:00 (Radha) 11:15: Weller 00 [id number] Sensory impaired Sensory Resolve 2017-042018-03-22 Roselyn hearing d 0-10 09:55:00 (Radha) 11:15: Weller 00 [id number] Integument pressure Integument Resolve 2017-042018-08-21 Roselyn ulcer d 0-10 12:45:00 (Radha) present 11:15: Weller [id number] Integument skin Integument Resolve 2017-042018-03-03 Roselyn integrity d 0-10 09:19:00 (Radha) risk 11:15: Weller [id number] Integument surgical Integument Resolve 2017-042018-03-03 Quality wound d 0-10 09:19:00 Realtime7 present 11:15: 00 Integument other wound Integument Resolve 2017-042018-03-03 Quality present d 0-10 09:19:00 Realtime7 11:15: 00 Elimination urinary Eliminatio Resolve 2017-042018-03-20 Roselyn incontinenc n d 0-10 12:30:00 (Radha) e 11:15: Weller [id number] Neuro confusion Neuro/Emot Resolve 2017-042018-03-22 Roselyn present ion d 0-10 09:55:00 (Radha) 11:15: Weller [id number] Neuro anxiety Neuro/Emot Resolve 2017-042018-03-22 Roselyn present ion d 0-10 09:55:00 (Radha) 11:15: Weller [id number] Neuro impaired Neuro/Emot Resolve 2017-042018-03-22 Roselyn decision-ma ion d 0-10 09:55:00 (Radha) pj 11:15: Weller [id number] Activity ADL Activity Resolve 2017-042018-03-22 Roselyn assistance d 0-10 09:55:00 (Radha) required 11:15: [id number] Safety structural Safety Resolve 2017-042018-03-22 Roselyn barriers d 0-10 09:55:00 (Radha) present 11:15: Weller [id number] Safety fall risk Safety Resolve 2017-042018-03-22 Roselyn factor d 0-10 09:55:00 (Radha) present 11:15: Weller [id number] Safety risk for Safety Resolve 2017-042018-03-22 Roselyn hospitaliza d 0-10 09:55:00 (Radha) tion 11:15: Weller [id number] Safety can be left Safety Resolve 2017-042018-03-22 Roselyn alone for d 0-10 09:55:00 (Radha) only short 11:15: Weller 00 [id number] Medication oral med Meds Resolve 2017-042018-02-06 Roselyn assistance d 0-10 09:15:00 (Radha) required 11:15: Weller [id number] Medication injectable Meds Resolve 2017-042018-02-06 Roselyn med d 0-10 09:15:00 (Radha) assistance 11:15: Weller required 00 [id number] Medication knowledge/s Meds Resolve 2017-042018-02-15 Roselyn kill d 0-10 10:20:00 (Radha) deficit: pt 11:15: Weller 00 [id number] Medication potential Meds Resolve 2017-042018-02-15 Roselyn clinically d 0-10 10:20:00 (Radha) significant 11:15: Weller medication 00 [id number] issue Musculoskel transfer Musculoske Resolve 2017-042018-03-20 Roselyn etal assistance letal d 0-10 12:30:00 (Radha) required 11:15: Weller [id number] Musculoskel requires Musculoske Resolve 2017-042018-03-20 Roselyn etal human letal d 0-10 12:30:00 (Radha) assist to 11:15: Weller leave home 00 [id number] Safety knowledge/s Safety Resolve 2017-042018-03-22 Laura kill d 0-12 09:55:00 Jean-Claude deficit: pt 10:00: [id number] 00 Respiratory knowledge/s Respirator Resolve 2017-042018-02-06 Laura kill y d 0-15 09:15:00 Jean-Claude deficit: cg 10:00: [id number] 00 Respiratory lung sounds Respirator Resolve 2017-042018-02-06 Laura deficit y d 0-15 09:15:00 [place] 10:00: [id number] 00 Sensory impaired Sensory Resolve 2017-042018-03-22 Quality verbal d 0-17 09:55:00 Realtime7 communicati 18:36: on 42 Musculoskel knowledge/s Musculoske Resolve 2017-042018-03-03 Laura etal kill letal d 0-24 09:19:00 Jean-Claude deficit: cg 09:45: [id number] 00 Nutrition knowledge/s Nutrition Resolve 2017-042018-03-03 Laura kill d 0-26 09:19:00 [place] deficit: pt 09:15: [id number] 00 Nutrition nutritional Nutrition Resolve 2017-042018-03-03 Laura restriction d 09:19:00 [place] s 09:15: [id number] 00 Elimination catheter Eliminatio Resolve 2017-042018-03-20 Laura present n d 0 12:30:00 [place] 09:15: [id number] 00 Elimination constipatio Eliminatio Resolve 2017-042018-03-20 Laura n n d 0 12:30:00 Jean-Claude 09:15: [id number] 00 Infection s/s of Infection Resolve 2017-042018-03-22 Laura infection d 0 09:55:00 Jean-Claude 09:30: [id number] 00 Endo/Edgard insulin Endo/Edgard Resolve 2017-042018-03-20 Laura admn d 04-22 12:30:00 Jean-Claude dependence 09:50: [id number] 00 Respiratory dyspnea Respirator Resolve 2017-042018-03-08 Laura present y d 04-24 09:20:00 Jean-Claude 10:07: [id number] 00 Safety cannot be Safety Resolve 2017-042018-03-22 Laura left alone d 04-24 09:55:00 Jean-Claude 10:07: [id number] 00 Cardio edema Cardiovasc Resolve 2017-042018-03-03 Laura ular d 04-26 09:19:00 Jean-Claude 09:51: [id number] 00 Respiratory Incentive Respirator Resolve 2017-042018-03-03 Laura Spirometer y d 04-26 09:19:00 [place] /Acapella 09:51: [id number] Device 00 treatments in home Endo/Edgard knowledge/s Endo/Edgard Resolve 2017-042018-03-20 Laura kill d 05-08 12:30:00 [place] deficit: pt 09:20: [id number] 00 Nutrition knowledge/s Nutrition Resolve 2017-042018-04-19 Laura kill d 05-08 09:45:00 Jean-Claude deficit: pt 09:20: [id number] 00 Nutrition nutritional Nutrition Resolve 2017-042018-04-19 Laura restriction d 05-08 09:45:00 Jean-Claude s 09:20: [id number] 00 Endo/Edgard diabetic Endo/Edgard Resolve 2017-042018-03-20 Laura foot care d 2- 12:30:00 Jean-Claude 09:20: [id number] 00 Pain frequent Pain Mgmt Unknown 2017-04 Laura pain 2- Jean-Claude 12:45: [id number] 00 Respiratory dyspnea Respirator Resolve 2017-042018-03-20 Laura present y d 2 12:30:00 [place] 12:45: [id number] 00 Integument pressure Integument Unknown 2017-04 Laura ulcer 2- [place] present 12:45: [id number] 00 Integument surgical Integument Resolve 2017-042018-03-24 Laura wound d 2 11:23:00 Jean-Claude present 12:45: [id number] 00 Endo/Edgard diabetic Endo/Edgard Resolve 2017-042018-03-24 Laura foot care d 05-23 11:23:00 Jean-Claude 09:55: [id number] 00 Elimination catheter Eliminatio Resolve 2017-042018-04-19 Laura present n d 05-23 09:45:00 Jean-Claude 09:55: [id number] 00 Safety risk for Safety Resolve 2017-042018-04-19 Laura hospitaliza d 2 09:45:00 Jean-Claude tion 11:23: [id number] 00 Safety can be left Safety Resolve 2017-042018-04-19 Laura alone for d 2- 09:45:00 Jean-Claude only short 11:23: [id number] periods 00 Musculoskel knowledge/s Musculoske Resolve 2017-042018-03-29 Laura etal kill letal d - 09:30:00 Jean-Claude deficit: cg 10:20: [id number] 00 Musculoskel requires Musculoske Resolve 2017-042018-04-12 Laura etal human letal d 2- 09:45:00 Jean-Claude assist to 10:20: [id number] leave home 00 Endo/Edgard diabetic Endo/Edgard Resolve 2017-042018-04-19 Laura foot care d 2- 09:45:00 Jean-Claude 09:30: [id number] 00 Elimination constipatio Eliminatio Resolve 2017-042018-04-12 Laura n n d 05-30 09:45:00 [place] 09:30: [id number] 00 Pain frequent Pain Mgmt Unknown 2017-04 Laura pain 06-06 [place] 09:45: [id number] 00 Endo/Edgard insulin Endo/Edgard Resolve 2017-042018-04-19 Laura admn d 06-06 09:45:00 Jean-Claude dependence 09:45: [id number] 00 Endo/Edgard anti-coagul Endo/Edgard Resolve 2017-042018-04-19 Laura ation d 06-06 09:45:00 [place] therapy 09:45: [id number] 00 Integument surgical Integument Resolve 2017-042018-04-05 Laura wound d 06-06 09:45:00 [place] present 09:45: [id number] 00 Integument skin Integument Resolve 2017-042018-04-05 Laura integrity d 06-06 09:45:00 Jean-Claude risk 09:45: [id number] 00 Integument pressure Integument Unknown 2017-04 Laura ulcer 06-06 Jean-Claude present 09:45: [id number] 00 Elimination UTI within Eliminatio Resolve 2017-042018-04-12 Laura past 14 n d 06-06 09:45:00 Jean-Claude days 09:45: [id number] 00 Activity ADL Activity Resolve 2017-042018-09-15 Laura assistance d 06-06 10:35:00 Jean-Claude required 09:45: [id number] 00 Safety fall risk Safety Resolve 2017-042018-04-19 Laura factor d 06-06 09:45:00 [place] present 09:45: [id number] 00 Medication potential Meds Resolve 2017-042018-04-19 Laura clinically d 06-06 09:45:00 [place] significant 09:45: [id number] medication 00 issue Medication oral med Meds Resolve 2017-042018-04-05 Shari assistance d 06-06 09:45:00 Regeczi required 09:45: [id number] 00 Medication injectable Meds Resolve 2017-042018-08-09 Shari med d 06-06 09:20:00 Regeczi assistance 09:45: [id number] required 00 Musculoskel transfer Musculoske Resolve 2017-042018-04-12 Shari etal assistance letal d 06-06 09:45:00 Regeczi required 09:45: [id number] 00 Medication oral med Meds Resolve 2017-042018-04-19 Laura assistance d 06-08 09:45:00 [place] required 10:00: [id number] 00 Medication injectable Meds Unknown 2017-04 Laura med 06-08 Jean-Claude assistance 10:00: [id number] required 00 Sensory impaired Sensory Resolve 2017-042018-04-19 Nima verbal d 06-08 09:45:00 Graves communicati 15:20: [id number] on 00 Sensory impaired Sensory Resolve 2017-042018-04-19 Nima hearing d 06-08 09:45:00 Graves 15:20: [id number] 00 Medication injectable Meds Unknown 2017-04 Nhung med Pérez assistance 14:56: [id number] required 00 Medication injectable Meds Unknown Nima med 04-13 Graves assistance 13:50: [id number] required 00 Elimination constipatio Eliminatio Resolve 2018-04-19 Laura n n d 04-14 09:45:00 Jean-Claude 09:28: [id number] 00 Medication injectable Meds Unknown Laura med 04-17 Jean-Claude assistance 10:00: [id number] required 00 Medication injectable Meds Resolve 2018-04-19 Laura med d 04-19 09:45:00 Jean-Claude assistance 09:45: [id number] required 00 Endo/Edgard anti-coagul Endo/Edgard Resolve 2018-04-26 Laura ation d 04-21 10:15:00 Jean-Claude therapy 09:45: [id number] 00 Nutrition knowledge/s Nutrition Resolve 2018-04-26 Laura kill d 04-21 10:15:00 [place] deficit: pt 09:45: [id number] 00 Nutrition nutritional Nutrition Resolve 2018-04-26 Laura restriction d 04-21 10:15:00 Jean-Claude s 09:45: [id number] 00 Elimination catheter Eliminatio Resolve 2018-04-26 Laura present n d 04-21 10:15:00 Jean-Claude 09:45: [id number] 00 Elimination constipatio Eliminatio Resolve 2018-04-26 Laura n n d 04-21 10:15:00 Jean-Claude 09:45: [id number] 00 Safety risk for Safety Resolve 2018-04-26 Laura hospitaliza d 1-11 10:15:00 [place] tion 09:45: [id number] 00 Safety can be left Safety Resolve 2018-04-26 Laura alone for d 1-11 10:15:00 [place] only short 09:45: [id number] periods 00 Sensory impaired Sensory Resolve 2018-04-26 Nima verbal d 1-11 10:15:00 Graves communicati 14:30: [id number] on 00 Sensory impaired Sensory Resolve 2018-04-26 Nima hearing d 1-11 10:15:00 Graves 14:30: [id number] 00 Sensory impaired Sensory Resolve 2018-04-28 Nima verbal d 1-17 10:20:00 Graves communicati 12:45: [id number] on 00 Sensory impaired Sensory Resolve 2018-04-28 Nima hearing d 1-17 10:20:00 Graves 12:45: [id number] 00 Endo/Edgard anti-coagul Endo/Edgard Resolve 2018-05-24 Laura ation d 1-18 12:30:00 [place] therapy 10:20: [id number] 00 Safety risk for Safety Active Laura hospitaliza - [place] tion 10:20: [id number] 00 Safety can be left Safety Resolve 2018-05-10 Laura alone for d 1- 13:45:00 Jean-Claude only short 10:10: [id number] Sensory impaired Sensory Resolve 2018-05-10 Jia hearing d 05-05 13:45:00 Hillebrand 13:30: t 00 [id number] Sensory impaired Sensory Resolve 2018-05-10 Jia verbal d 1 13:45:00 Hillebrand communicati 13:30: t on 00 [id number] Elimination catheter Eliminatio Resolve 2018-05-08 Wandy present n d 05-08 08:50:00 ,Kaylee 08:50: 00 Elimination constipatio Eliminatio Resolve 2018-06-28 Wandy n n d 05-08 09:45:00 ,Kaylee 08:50: 00 Safety cannot be Safety Resolve 2018-05-10 Laura left alone d 1- 13:45:00 [place] 08:50: [id number] 00 Elimination catheter Eliminatio Resolve 2018-05-12 Shari present n d 2- 09:30:00 Regeczi 09:30: [id number] 00 Safety can be left Safety Resolve 2018-05-17 Laura alone for d - 10:00:00 Jean-Claude only short 09:30: [id number] periods 00 Elimination urinary Eliminatio Resolve 2018-05-15 Laura incontinenc n d 05-15 08:45:00 Jean-Claude e 08:45: [id number] 00 Pain frequent Pain Mgmt Resolve 2018-05-17 Laura pain d 2-06 10:00:00 [place] 10:00: [id number] 00 Respiratory lung sounds Respirator Resolve 2018-05-22 Laura deficit y d 2-06 10:44:00 Jean-Claude 10:00: [id number] 00 Integument pressure Integument Unknown Laura ulcer 2-06 [place] present 10:00: [id number] 00 Integument skin Integument Resolve 2018-05-17 Laura integrity d 2-06 10:00:00 Jean-Claude risk 10:00: [id number] 00 Integument surgical Integument Resolve 2018-05-17 Laura wound d 2-06 10:00:00 Jean-Claude present 10:00: [id number] 00 Activity ADL Activity Unknown 2018- Laura assistance 2-06 [place] required 10:00: [id number] 00 Activity self-care Activity Resolve 2018-05-19 Laura deficit d 2-06 11:15:00 [place] 10:00: [id number] 00 Safety fall risk Safety Resolve 2018-05-19 Laura factor d 2-06 11:15:00 [place] present 10:00: [id number] 00 Elimination urinary Eliminatio Resolve 2018-05-24 [place]berry incontinenc n d 2- 12:30:00 Kaylee 11:15: 00 Safety can be left Safety Resolve 2018-05-24 Laura alone for d 2-08 12:30:00 Jean-Claude only short 11:15: [id number] periods 00 Safety fall risk Safety Resolve 2018-05-24 Sonia White factor d 2-12 12:30:00 present 09:48: 41 Endo/Edgard glucose Endo/Edgard Resolve 2018-05-24 Laura tolerance d 2-13 12:30:00 Jean-Claude problem 12:30: [id number] 00 Respiratory Incentive Respirator Resolve 2018-06-07 Laura Spirometer y d 2-15 12:00:00 [place] /Acapella 13:40: [id number] Device 00 treatments in home Endo/Edgard anti-coagul Endo/Edgard Resolve 2018-06-12 Laura ation d 2-15 09:30:00 [place] therapy 13:40: [id number] 00 Elimination urinary Eliminatio Resolve 2018-05-26 Laura incontinenc n d 2-15 13:40:00 Jean-Claude e 13:40: [id number] 00 Safety can be left Safety Resolve 2018-06-07 Laura alone for d 2-15 12:00:00 Jean-Claude only short 13:40: [id number] periods 00 Endo/Edgard glucose Endo/Edgard Resolve 2018-06-07 Cherrise tolerance d 2-22 12:00:00 Trixie problem 10:15: [id number] 00 Endo/Edgard insulin Endo/Edgard Resolve 2018-06-12 Cherrise admn d 2-22 09:30:00 [place] dependence 10:15: [id number] 00 Endo/Edgard glucose Endo/Edgard Resolve 2018-06-12 Cherrise testing d 2- 09:30:00 [place] dependence 10:15: [id number] 00 Safety fall risk Safety Resolve 2018-06-07 Cherrise factor d 2-22 12:00:00 [place] present 10:15: [id number] 00 Musculoskel transfer Musculoske Active Cherrise etal assistance letal 06-02 [place] required 10:15: [id number] 00 Musculoskel requires Musculoske Active Cherrise etal human letal 2 [place] assist to 10:15: [id number] leave home 00 Elimination urinary Eliminatio Resolve 2018-06-07 Laura incontinenc n d 06-05 12:00:00 Jean-Claude e 12:30: [id number] 00 Activity self-care Activity Resolve 2018-08-14 Laura deficit d 06-05 12:10:00 Jean-Claude 12:30: [id number] 00 Elimination urinary Eliminatio Resolve 2018-06-12 Laura incontinenc n d 06-09 09:30:00 Jean-Claude e 09:13: [id number] 00 Safety can be left Safety Resolve 2018-06-12 Laura alone for d 06-09 09:30:00 Jean-Claude only short 09:13: [id number] periods 00 Respiratory Incentive Respirator Resolve 2018-06-14 Laura Spirometer y d 06-12 09:30:00 Jean-Claude /Acapemiguel 09:30: [id number] Device 00 treatments in home Endo/Edgard anti-coagul Endo/Edgard Resolve 2018-06-30 Laura ation d 06-14 09:19:00 [place] therapy 09:30: [id number] 00 Safety can be left Safety Resolve 2018-06-30 Laura alone for d 06-14 09:19:00 Jean-Claude alejo 09:30: [id number] periods 00 Elimination urinary Eliminatio Resolve 2018-06-19 Laura incontinenc n d 06-16 13:45:00 Jean-Claude e 09:45: [id number] 00 Elimination urinary Eliminatio Resolve 2018-06-28 Laura incontinenc n d 06-23 09:45:00 Jean-Claude e 13:15: [id number] 00 Elimination constipatio Eliminatio Resolve 2018-07-14 Laura n n d 06-30 09:20:00 Jean-Claude 09:19: [id number] 00 Endo/Edgard anti-coagul Endo/Edgard Resolve 2018-07-14 Laura ation d 07-03 09:20:00 Jean-Claude therapy 12:49: [id number] 00 Elimination urinary Eliminatio Resolve 2018-07-14 Laura incontinenc n d 07-03 09:20:00 Jean-Claude e 12:49: [id number] 00 Safety can be left Safety Resolve 2018-08-18 Laura alone for d 07-07 12:05:00 Jean-Claude only short 12:50: [id number] periods 00 Endo/Edgard glucose Endo/Edgard Resolve 2018-07-14 Shi testing d 07-10 09:20:00 Sorin, dependence 12:30: [id number] 00 Pain frequent Pain Mgmt Resolve 2018-07-14 Laura pain d 07-14 09:20:00 [place] 09:20: [id number] 00 Integument surgical Integument Resolve 2018-08-13 Laura wound d 07-14 12:50:00 [place] present 09:20: [id number] 00 Integument skin Integument Resolve 2018-08-13 Laura integrity d 07-14 12:50:00 Jean-Claude risk 09:20: [id number] 00 Safety fall risk Safety Resolve 2018-08-18 Laura factor d 07-14 12:05:00 [place] present 09:20: [id number] 00 Endo/Edgard anti-coagul Endo/Edgard Resolve 2018-08-14 Laura ation d 07-17 12:10:00 Jean-Claude therapy 13:00: [id number] 00 Elimination urinary Eliminatio Resolve 2018-07-21 Laura incontinenc n d 07-17 09:25:00 Jean-Claude e 13:00: [id number] 00 Activity ADL Activity Unknown Laura assistance 07-17 Jean-Claude required 13:00: [id number] 00 Elimination urinary Eliminatio Resolve 2018-08-14 Laura incontinenc n d 07-24 12:10:00 [place] e 09:27: [id number] 00 Pain frequent Pain Mgmt Resolve 2018 Laura pain d 08-07 09:20:00 Jean-Claude 12:45: [id number] 00 Cardio edema Cardiovasc Resolve 2018 Laura ular d 08-07 09:20:00 Jean-Claude 12:45: [id number] 00 Respiratory dyspnea Respirator Resolve 2018 Laura present y d 08-07 09:20:00 Jean-Claude 12:45: [id number] 00 Endo/Edgard diabetic Endo/Edgard Resolve 2018-08-14 Laura foot care d 08-07 12:10:00 Jean-Claude 12:45: [id number] 00 Nutrition knowledge/s Nutrition Active Laura kill 08-07 Jean-Claude deficit: pt 12:45: [id number] 00 Nutrition nutritional Nutrition Active Laura restriction 08-07 Jean-Claude s 12:45: [id number] 00 Neuro confusion Neuro/Emot Resolve 2018-08-14 Laura present ion d 08-07 12:10:00 Jean-Claude 12:45: [id number] 00 Medication oral med Meds Resolve 2018 Laura assistance d 08-07 09:20:00 [place] required 12:45: [id number] 00 Medication injectable Meds Resolve 2018 Jia med d 08-07 09:20:00 Jerardo assistance 12:45: [id number] required 00 Cardio edema Cardiovasc Resolve 2018-08-23 Laura ular d 08-13 11:15:00 Jean-Claude 12:50: [id number] 00 Respiratory dyspnea Respirator Resolve 2018-08-14 Laura present y d 08-13 12:10:00 Jean-Claude 12:50: [id number] 00 Endo/Edgard anti-coagul Endo/Edgard Resolve 2018-08-28 Laura ation d 08-16 12:00:00 Jean-Claude therapy 12:15: [id number] 00 Elimination urinary Eliminatio Resolve 2018-08-21 Laura incontinenc n d 08-16 12:45:00 Jean-Claude e 12:15: [id number] 00 Sensory impaired Sensory Resolve 2018-08-21 Krystyna verbal d 08-17 12:45:00 [place] communicati 14:30: [id number] on 00 Sensory impaired Sensory Resolve 2018-08-21 Krystyna hearing d 08-17 12:45:00 [place] 14:30: [id number] 00 Social financial LILLIAN: Resolve 2019-02-16 Krystyna Services resource Social d 08-17 13:45:00 [place] deficit Services 14:30: [id number] 00 Social knowledge/s LILLIAN: Resolve 2018-08-17 Krystyna Services kill Social d 08-17 14:30:00 [place] deficit - Services 14:30: [id number] pt 00 Social knowledge/s LILLIAN: Resolve 2018-08-17 Krystyna Services kill Social d 08-17 14:30:00 [place] deficit - Services 14:30: [id number] cg 00 Safety can be left Safety Resolve 2018-09-07 Laura alone for d 5-15 10:00:00 Jean-Claude cruz short 11:15: [id number] periods 00 Social knowledge/s LILLIAN: Active Laura Services kill Social 08-23 Jean-Claude deficit - Services 11:15: [id number] pt 00 Elimination urinary Eliminatio Resolve 2018-09-07 Laura incontinenc n d 08-25 10:00:00 Jean-Claude e 11:45: [id number] 00 Sensory impaired Sensory Resolve 2018-09-07 Krystyna verbal d 09-01 10:00:00 [facility] 14[facility]45: [id number] on 00 Sensory impaired Sensory Resolve 2018-09-07 Krystyna hearing d 09-01 10:00:00 [facility] 14:45: [id number] 00 Social knowledge/s LILLIAN: Active Krystyna Services kill Social 09-01 [place] deficit - Services 14:45: [id number] cg 00 Respiratory dyspnea Respirator Resolve 2018-09-15 Laura present y d 09-07 10:35:00 Jean-Claude 10:00: [id number] 00 Pain frequent Pain Mgmt Resolve 2018-09-11 Laura pain d 09-11 11:50:00 Jean-Claude 11:50: [id number] 00 Cardio hypertensio Cardiovasc Resolve 2018-09-11 Laura n ular d 09-11 11:50:00 Jean-Claude 11:50: [id number] 00 Integument pressure Integument Resolve 2018-09-15 Laura ulcer d 6 10:35:00 Jean-Claude present 11:50: [id number] 00 Integument surgical Integument Resolve 2018-09-15 Laura wound d 6-03 10:35:00 Jean-Claude present 11:50: [id number] 00 Integument skin Integument Resolve 2018-09-15 Laura integrity d 09-11 10:35:00 Jean-Claude risk 11:50: [id number] 00 Elimination urinary Eliminatio Resolve 2018-09-11 Laura incontinenc n d 09-11 11:50:00 [place] e 11:50: [id number] 00 Activity ADL Activity Unknown Laura assistance 09-11 Jean-Claude required 11:50: [id number] 00 Activity self-care Activity Resolve 2018-09-15 Laura deficit d 09-11 10:35:00 Jean-Claude 11:50: [id number] 00 Safety fall risk Safety Resolve 2018-09-15 Laura factor d 09-11 10:35:00 Jean-Claude present 11:50: [id number] 00 Safety can be left Safety Resolve 2018-09-15 Laura alone for d 09-11 10:35:00 Jean-Claude only short 11:50: [id number] periods 00 Endo/Edgard anti-coagul Endo/Edgard Resolve 2018-09-18 Laura ation d 09-15 12:20:00 [place] therapy 10:35: [id number] 00 Elimination urinary Eliminatio Resolve 2018-09-18 Alura incontinenc n d 09-15 12:20:00 Jean-Claude e 10:35: [id number] 00 Elimination constipatio Eliminatio Resolve 2018-09-18 Laura n n d 09-15 12:20:00 Jean-Claude 10:35: [id number] 00 Safety can be left Safety Resolve 2018-09-25 Laura alone for d 610 11:45:00 Jean-Claude only short 12:20: [id number] periods 00 Cardio hypertensio Cardiovasc Resolve 2018-09-21 Laura n ular d 09-21 11:45:00 Jean-Claude 11:45: [id number] 00 Endo/Edgard anti-coagul Endo/Edgard Resolve 2018-09-25 Laura ation d 09-21 11:45:00 [place] therapy 11:45: [id number] 00 Cardio hypertensio Cardiovasc Resolve 2018-10-02 Laura n ular d 6- 12:05:00 Jean-Claude 11:45: [id number] 00 Elimination urinary Eliminatio Resolve 2018-10-02 Laura incontinenc n d 6 12:05:00 Jean-Claude e 11:45: [id number] 00 Endo/Edgard anti-coagul Endo/Edgard Resolve 2018-10-02 Laura ation d 09-29 12:05:00 Jean-Claude therapy 09:45: [id number] 00 Safety can be left Safety Resolve 2018-10-02 Laura alone for d 09-29 12:05:00 Jean-Claude only short 09:45: [id number] 00 Endo/Edgard anti-coagul Endo/Edgard Resolve 2018-10-27 Laura ation d 10-04 11:30:00 Jean-Claude therapy 10:10: [id number] 00 Elimination urinary Eliminatio Resolve 2018-10-06 Laura incontinenc n d 10-04 09:10:00 Jean-Claude e 10:10: [id number] 00 Elimination constipatio Eliminatio Resolve 2018-10-06 Laura n n d 10-04 09:10:00 Jean-Claude 10:10: [id number] 00 Safety can be left Safety Resolve 2018-10-06 Laura alone for d 10-04 09:10:00 Jean-Claude only short 10:10: [id number] Sensory impaired Sensory Resolve 2018-10-23 Krystyna verbal d 10-05 11:56:00 [place] communicati 15:00: [id number] on 00 Sensory impaired Sensory Resolve 2018-10-23 Krystyna hearing d 10-05 11:56:00 [place] 15:00: [id number] 00 Elimination urinary Eliminatio Resolve 2018-10-27 Laura incontinenc n d 10-09 11:30:00 Jean-Claude butler 12:15: [id number] 00 Elimination bloody Eliminatio Resolve 2018-10-27 Laura urine n d 10-09 11:30:00 Jean-Claude 12:15: [id number] 00 Safety can be left Safety Resolve 2018-10-23 Laura alone for d 10-09 11:56:00 Jean-Claude only short 12:15: [id number] periods Elimination constipatio Eliminatio Resolve 2018-12-08 Laura n n d 10-16 14:00:00 Jean-Claude 12:35: [id number] 00 Cardio edema Cardiovasc Resolve 2018-10-27 Laura ular d 10-20 11:30:00 Jean-Claude 11:35: [id number] 00 Endo/Edgard knowledge/s Endo/Edgard Resolve 2018-10-27 Laura kill d 10-20 11:30:00 Jean-Claude deficit: pt 11:35: [id number] 00 Sensory impaired Sensory Unknown Jonatan verbal 7-15 Demarco, communicati 13:30: PT on [id number] Sensory impaired Sensory Unknown Jonatan hearing 15 Demarco, 13:30: PT [id number] Safety can be left Safety Resolve 2018-10-27 Laura alone for d 10-25 11:30:00 Jean-Claude cruz short 10:35: [id number] 00 Endo/Edgard glucose Endo/Edgard Resolve 2018-12-11 Cherrise tolerance d 10-30 09:30:00 Trixie problem 11:55: [id number] 00 Endo/Edgard insulin Endo/Edgard Resolve 2018-12-13 Cherrise admn d 10-30 11:10:00 Trixie dependence 11:55: [id number] 00 Endo/Edgard glucose Endo/Edgard Resolve 2018-12-13 Cherrise testing d 10-30 11:10:00 Trixie dependence 11:55: [id number] 00 Endo/Edgard knowledge/s Endo/Edgard Resolve 2018-12-08 Cherrise kill d 10-30 14:00:00 [place] deficit: pt 11:55: [id number] 00 Elimination urinary Eliminatio Resolve 2018-12-08 Cherrise urgency n d 10-30 14:00:00 Trixie 11:55: [id number] 00 Neuro depressive Neuro/Emot Resolve 2018-12-08 Cherrise feelings ion d 10-30 14:00:00 Trixie present 11:55: [id number] 00 Neuro impaired Neuro/Emot Resolve 2018-12-08 Cherrise decision-ma ion d 10-30 14:00:00 [place] pj 11:55: [id number] 00 Safety fall risk Safety Resolve 2018-12-06 Cherrise factor d 10-30 13:05:00 [place] present 11:55: [id number] 00 Endo/Edgard anti-coagul Endo/Edgard Resolve 2018-12-13 Shi ation d 11-01 11:10:00 Sorin, therapy 12:30: [id number] 00 Respiratory Incentive Respirator Resolve 2018-11-29 Cherrise Spirometer y d 11-03 10:15:00 Trixie /Acapella 10:25: [id number] Device 00 treatments in home Elimination urinary Eliminatio Resolve 2018-12-08 Cherrise frequency n d 11-03 14:00:00 [place] 10:25: [id number] 00 Respiratory lung sounds Respirator Resolve 2018-11-29 Cherrise deficit y d 11-06 10:15:00 Trixie 12:05: [id number] 00 Neuro memory Neuro/Emot Resolve 2018-12-08 Cherrise deficit ion d 11-08 14:00:00 [place] needing 10:30: [id number] supervision 00 Pain frequent Pain Mgmt Resolve 2018-12-06 Shi pain d 11-10 13:05:00 Sorin, 11:00: [id number] 00 Integument pressure Integument Active Shi ulcer 11-10 Sorin, present 11:00: [id number] 00 Integument surgical Integument Active 2018- Shi wound 11-10 Sorin, present 11:00: [id number] 00 Integument skin Integument Active 2018- Shi integrity 11-10 Sorin, risk 11:00: [id number] 00 Elimination urinary Eliminatio Resolve 2018-12-08 Shi incontinenc n d 11-10 14:00:00 Sorin, e 11:00: [id number] 00 Activity self-care Activity Resolve 2018-11-29 Shi deficit d 11-10 10:15:00 Sorin, 11:00: [id number] 00 Activity ADL Activity Resolve 2018-12-08 Shi assistance d 11-10 14:00:00 Sorin, required 11:00: [id number] 00 Pain knowledge/s Pain Mgmt Resolve 2018-12-06 Krystyna kill d 11-16 13:05:00 [place] deficit: cg 15:15: [id number] 00 Respiratory knowledge/s Respirator Resolve 2018-11-29 Krystyna kill y d 11-16 10:15:00 [place] deficit: cg 15:15: [id number] 00 Integument knowledge/s Integument Active Krystyna kill 11-16 [place] deficit: cg 15:15: [id number] 00 Elimination knowledge/s Eliminatio Resolve 2018-12-08 Krystyna kill n d 11-16 14:00:00 [place] deficit: cg 15:15: [id number] 00 Safety knowledge/s Safety Resolve 2018-12-06 Krystyna kill d 11-16 13:05:00 [place] deficit: cg 15:15: [id number] 00 Cardio hypertensio Cardiovasc Resolve 2018-11-29 Lenny jarvis joseph d 11-17 10:15:00 [place] 10:45: [id number] 00 Safety can be left Safety Resolve 2018-12-08 Shi alone for d 11-22 14:00:00 nancy Rowell short 11:00: [id number] periods 00 Sensory impaired Sensory Resolve 2018-12-08 Laura verbal d 11-24 14:00:00 Jean-Claude communicati 09:30: [id number] on 00 Sensory impaired Sensory Resolve 2018-12-08 Laura hearing d 11-24 14:00:00 Jean-Claude 09:30: [id number] 00 Respiratory knowledge/s Respirator Resolve 2018-12-08 Laura kill y d 12-01 14:00:00 [place] deficit: cg 09:30: [id number] 00 Sensory impaired Sensory Unknown Krystyna verbal 8 [place] communicati 15:00: [id number] on 00 Sensory impaired Sensory Unknown Krystyna hearing 12-08 [place] 15:00: [id number] 00 Respiratory knowledge/s Respirator Resolve 2018-12-13 Laura kill y d 12-11 11:10:00 Jean[place] deficit: cg 09:30: [id number] 00 Endo/Edgard knowledge/s Endo/Edgard Resolve 2018-12-13 Laura kill d 12-11 11:10:00 [place] deficit: pt 09:30: [id number] 00 Elimination urinary Eliminatio Resolve 2018-12-15 Laura incontinenc n d 12-11 13:10:00 Jean-Claude e 09:30: [id number] 00 Safety can be left Safety Resolve 2018-12-15 Laura alone for d 12-11 13:10:00 Jean-Claude only short 09:30: [id number] 00 Endo/Edgard knowledge/s Endo/Edgard Resolve 2019-01-05 Laura kill d 12-15 11:00:00 [place] deficit: pt 13:10: [id number] 00 Endo/Edgard anti-coagul Endo/Edgard Resolve 2019-01-05 Laura ation d 12-15 11:00:00 Jean-Claude therapy 13:10: [id number] 00 Elimination urinary Eliminatio Resolve 2018-12-27 Laura incontinenc n d 12-18 09:20:00 Jean-Claude e 12:10: [id number] 00 Safety can be left Safety Resolve 2019-01-05 Laura alone for d 12-18 11:00:00 Jean-Claude only short 12:10: [id number] periods 00 Elimination constipatio Eliminatio Resolve 2019-01-05 Laura n n d 12-20 11:00:00 Jean-Claude 12:15: [id number] 00 Pain frequent Pain Mgmt Resolve 2019-01-15 Laura pain d 12-27 12:30:00 Jean-Claude 09:20: [id number] 00 Respiratory dyspnea Respirator Resolve 2019-01-05 Laura present y d 12-27 11:00:00 Jean-Claude 09:20: [id number] 00 Endo/Edgard diabetic Endo/Edgard Resolve 2019-01-05 Laura foot care d 9 11:00:00 Jean-Claude 09:20: [id number] 00 Elimination diarrhea Eliminatio Resolve 2019-01-05 Laura n d 18 11:00:00 Jean-Claude 09:20: [id number] 00 Neuro confusion Neuro/Emot Resolve 2019-01-05 Laura present ion d 12-27 11:00:00 Jean-Claude 09:20: [id number] 00 Neuro anxiety Neuro/Emot Resolve 2019-01-05 Laura present ion d 12-27 11:00:00 Jean[place]Claude 09:20: [id number] 00 Activity ADL Activity Resolve 2019-01-05 Laura assistance d 12-27 11:00:00 Jean-Claude required 09:20: [id number] 00 Activity self-care Activity Resolve 2019-01-05 Laura deficit d 12-27 11:00:00 Jean-Claude 09:20: [id number] 00 Safety fall risk Safety Resolve 2019-01-05 Laura factor d 12-27 11:00:00 Jean[place]Cla[place] present 09:20: [id number] 00 Medication potential Meds Resolve 2019-01-05 Laura clinically d 12-27 11:00:00 [place] significant 09:20: [id number] medication 00 issue Elimination urinary Eliminatio Resolve 2019-01-05 Laura incontinenc n d 12-29 11:00:00 Jean-Claude e 11:20: [id number] 00 Endo/Edgard knowledge/s Endo/Edgard Resolve 2019-01-10 Laura kill d 01-08 10:00:00 [place] deficit: pt 11:30: [id number] 00 Endo/Edgard anti-coagul Endo/Edgard Resolve 2019-01-10 Laura ation d 01-08 10:00:00 [place] therapy 11:30: [id number] 00 Elimination urinary Eliminatio Resolve 2019-01-15 Laura incontinenc n d 01-08 12:30:00 [place] e 11:30: [id number] 00 Safety can be left Safety Resolve 2019-02-16 Laura alone for d 9-30 12:00:00 [place] only short 11:30: [id number] periods 00 Respiratory dyspnea Respirator Resolve 2018-042019-01-26 Laura present y d 0-02 10:00:00 Jean-Claude 10:00: [id number] 00 Activity ADL Activity Resolve 2018-042019-01-12 Laura assistance d 0-02 11:30:00 [place] required 10:00: [id number] 00 Activity self-care Activity Resolve 2018-042019-01-12 Laura deficit d 0-02 11:30:00 [place] 10:00: [id number] 00 Safety fall risk Safety Resolve 2018-042019-01-12 Laura factor d 0-02 11:30:00 Jean-Cla[place] present 10:00: [id number] 00 Medication injectable Meds Resolve 2018-042019-01-17 Laura med d 0-02 09:45:00 Jean[place]Cla[place] assistance 10:00: [id number] required 00 Endo/Edgard knowledge/s Endo/Edgard Resolve 2018-042019-01-15 Laura kill d 0-04 12:30:00 [place] deficit: pt 11:30: [id number] 00 Endo/Edgard anti-coagul Endo/Edgard Resolve 2018-042019-01-15 Laura ation d 0-04 12:30:00 [place] therapy 11:30: [id number] 00 Elimination constipatio Eliminatio Resolve 2018-042019-01-15 Laura n n d 0-04 12:30:00 Jean-Claude 11:30: [id number] 00 Sensory impaired Sensory Resolve 2018-042019-01-15 Krystyna verbal d 0-04 12:30:00 Kathy communicati 15:30: [id number] on 00 Sensory impaired Sensory Resolve 2018-042019-01-15 Krystyna hearing d 0-04 12:30:00 [place] 15:30: [id number] 00 Infection s/s of Infection Resolve 2018-042019-03-09 Laura infection d 0-07 11:00:00 Jean-Claude 12:30: [id number] 00 Sensory impaired Sensory Resolve 2018-042019-01-22 Jonatan verbal d 0-08 11:00:00 ambrosio Pal 13:00: PT on 00 [id number] Sensory impaired Sensory Resolve 2018-042019-01-22 Jonatan hearing d 0-08 11:00:00 Demarco, 13:00: PT 00 [id number] Endo/Edgard knowledge/s Endo/Edgard Resolve 2018-042019-02-07 Laura kill d 0-09 11:20:00 [place] deficit: pt 09:45: [id number] 00 Endo/Edgard anti-coagul Endo/Edgard Resolve 2018-042019-02-07 Laura ation d 0-09 11:20:00 Jean-Claude therapy 09:45: [id number] 00 Elimination urinary Eliminatio Resolve 2018-042019-02-02 Laura incontinenc n d 0-09 11:30:00 Jean-Claude e 09:45: [id number] 00 Elimination constipatio Eliminatio Resolve 2018-042019-02-02 Laura n n d 0-16 11:30:00 Jean-Claude 10:00: [id number] 00 Sensory impaired Sensory Resolve 2018-042019-01-31 Jonatan verbal d 0-17 11:10:00 Demarco, communicflorentino 15:00: PT on 00 [id number] Sensory impaired Sensory Resolve 2018-042019-01-31 Jonatan hearing d 0-17 11:10:00 Demarco, 15:00: PT 00 [id number] Pain frequent Pain Mgmt Resolve 2018-042019-02-16 Jonatan pain d 0-23 12:00:00 Demarco, 13:00: PT 00 [id number] Sensory impaired Sensory Unknown 2018-04 Jonatan verbal 0-23 Demarco, communicati 13:00: PT on 00 [id number] Sensory impaired Sensory Unknown 2018-04 Jonatan hearing 0-23 Demarco, 13:00: PT 00 [id number] Respiratory dyspnea Respirator Resolve 2018-042019-02-07 Laura present y d 0-25 11:20:00 [place] 11:30: [id number] 00 Elimination urinary Eliminatio Resolve 2018-042019-02-07 Laura incontinenc n d 0-28 11:20:00 [place] e 12:40: [id number] 00 Endo/Edgard knowledge/s Endo/Edgard Resolve 2018-042019-02-19 Laura kill d 1 12:40:00 [place] deficit: pt 12:30: [id number] 00 Endo/Edgard anti-coagul Endo/Edgard Resolve 2018-042019-02-19 Laura ation d 04-11 12:40:00 [place] therapy 12:30: [id number] 00 Elimination urinary Eliminatio Resolve 2018-042019-02-16 Laura incontinenc n d 04-11 12:00:00 [place] e 12:30: [id number] 00 Medication potential Meds Resolve 2018-042019-02-24 Laura clinically d 04-14 09:45:00 [place] significant 12:20: [id number] medication 00 issue Elimination constipatio Eliminatio Resolve 2018-042019-02-16 Laura n n d 04-16 12:00:00 Jean-Claude 11:20: [id number] 00 Elimination urinary Eliminatio Resolve 2018-042019-02-24 Laura incontinenc n d 04-21 09:45:00 Jean-Claude e 12:40: [id number] 00 Safety can be left Safety Resolve 2018-042019-02-24 Laura alone for d 04-21 09:45:00 Jean-Claude only short 12:40: [id number] periods 00 Endo/Edgard knowledge/s Endo/Edgard Resolve 2018-042019-02-24 Laura kill d 04-23 09:45:00 Jean-Cla[place] deficit: pt 12:05: [id number] 00 Endo/Edgard anti-coagul Endo/Edgard Resolve 2018-042019-02-24 Laura ation d 04-23 09:45:00 Jean-Claude therapy 12:05: [id number] 00 Sensory impaired Sensory Resolve 2018-042019-02-26 Laura verbal d 04-26 13:20:00 Jean-Claude communicati 09:45: [id number] on 00 Sensory impaired Sensory Resolve 2018-042019-02-26 Laura hearing d 04-26 13:20:00 [place] 09:45: [id number] 00 Endo/Edgard knowledge/s Endo/Edgard Resolve 2018-042019-02-28 Laura kill d 04-28 11:15:00 Jean[place]Cla[place] deficit: pt 13:20: [id number] 00 Endo/Edgard anti-coagul Endo/Edgard Resolve 2018-042019-02-28 Laura ation d 04-28 11:15:00 [place] therapy 13:20: [id number] 00 Elimination urinary Eliminatio Resolve 2018-042019-03-09 Laura incontinenc n d 04-28 11:00:00 [place] e 13:20: [id number] 00 Safety can be left Safety Resolve 2018-042019-03-05 Laura alone for d 04-28 12:45:00 [place] only short 13:20: [id number] periods 00 Endo/Edgard knowledge/s Endo/Edgard Resolve 2018-042019-03-09 Laura kill d 05-05 11:00:00 [place] deficit: pt 12:45: [id number] 00 Endo/Edgard anti-coagul Endo/Edgard Resolve 2018-042019-03-09 Laura ation d 05-05 11:00:00 [place] therapy 12:45: [id number] 00 Safety can be left Safety Resolve 2018-042019-03-09 Laura alone for d 05-07 11:00:00 [place] only short 11:25: [id number] 00 Sensory impaired Sensory Resolve 2018-042019-03-12 Krystyna verbal d 05-09 11:15:00 [place] communicati 12:00: [id number] on 00 Sensory impaired Sensory Resolve 2018-042019-03-12 Krystyna hearing d 05-09 11:15:00 [place] 12:00: [id number] 00 Social financial LILLIAN: Active 2018-04 Krystyna Services resource Social 05-09 [facility] deficit Services 12:00: [id number] 00 Respiratory dyspnea Respirator Active 2018-04 Laura present y 05-13 Jean-Claude 11:15: [id number] 00 Endo/Edgard knowledge/s Endo/Edgard Active 2018-04 Laura kill 05-13 Jean-Claude deficit: pt 11:15: [id number] 00 Endo/Edgard anti-coagul Endo/Edgard Active 2018-04 Laura ation 05-13 Jean-Claude therapy 11:15: [id number] 00 Elimination urinary Eliminatio Active 2018-04 Laura incontinenc n - [place] e 11:15: [id number] 00 Activity ADL Activity Active 2018-04 Laura assistance 05-13 Jean-Claude required 11:15: [id number] 00 Activity self-care Activity Active 2018-04 Laura deficit - Jean-Claude 11:15: [id number] 00 Safety fall risk Safety Active 2018-04 Laura factor 2-02 Jean-Claude present 11:15: [id number] 00 Medication injectable Meds Resolve 2018-042019-03-12 Laura med d 2- 11:15:00 Jean[place]Cla[place] assistance 11:15: [id number] required 00 Allergies, Adverse Reactions, Alerts Allergy Name Allergy Status Severity Reaction(s) Onset Inactive Treating Comments Type Date Date Clinician bananas Unknown Active Unknown Reaction 2017-04 Roselyn Unknown 0-10 (Radha) Nithin [id number] keflex Unknown Active Unknown Reaction 2017-04 Roselyn Unknown 0-10 (Radha) Nithin [id number] nuts Unknown Active Unknown Reaction 2017-04 Roselyn Unknown 0-10 (Radha) Nithin [id number] Cipro Medication Active Unknown Reaction 2017-04 Sonia White Name ID Unknown 0-10 metronidazol Base Active Unknown Nausea and 2017-04 Roselyn e Ingredient vomiting 2-20 Guidelli [id number] Medications Ordered Filled Start Stop Current Ordering [...] nded nded release release loperamide loperamide No [place] 1-2 Unknown 2 mg tablet 2 mg [...] pen s pen testosteron testosteron 2017-04 No [place] Unknown Unknown e cypionate e cypionate 06-06 Latanya DAVID 200 mg/mL 200 mg/mL intramuscul intramuscul ar kit ar kit mometasone mometasone 2017-04 No [place] Unknown Unknown 0.1 % 0.1 % 06-06 Latanya DAIVD topical topical cream cream finasteride finasteride 2017-04 No [place] Unknown Unknown 5 mg tablet 5 mg tablet 06-06 Latanya DAVID Levemir Levemir 2017-04 2019- No [place] Unknown Unknown FlexTouch FlexTouch 06-06 Latanya DAVID [...]
--- OUTSIDE RECORDS SUMMARY | 2019-04-11 14:41 | XMS REPORT ---
:1940 Author Organization [facility] Pending sale to [facility] Care Team Providers Name Role Phone Unavailable Unavailable Unavailable Problems Condition Condition Condition Status Onset Resolution Last Treating Comments Name Details Category Date Date Treatment Clinician Date Pain frequent Pain Mgmt Resolve 2017-042018-05-08 Roselyn pain d 0-10 08:50:00 (Radha) 11:15: Weller 00 [id number] Cardio edema Cardiovasc Resolve 2017-042018-02-20 Roselyn ular d 0-10 09:50:00 (Radha) 11:15: Weller 00 [id number] Respiratory dyspnea Respirator Resolve 2017-042018-02-15 Roselyn present y d 0-10 10:20:00 (Radha) 11:15: Weller 00 [id number] Endo/Edgard glucose Endo/Edgard Resolve 2017-042018-03-20 Roselyn testing d 0-10 12:30:00 (Radha) dependence 11:15: Weller 00 [id number] Endo/Edgard knowledge/s Endo/Edgard Resolve 2017-042018-03-06 Roselyn kill d 0-10 09:30:00 (Radha) deficit: pt 11:15: Weller 00 [id number] Endo/Edgard anti-coagul Endo/Edgard Resolve 2017-042018-03-20 Roselyn ation d 0-10 12:30:00 (Radha) therapy 11:15: Weller 00 [id number] Endo/Edgard diabetic Endo/Edgard Resolve 2017-042018-03-06 Roselyn foot care d 0-10 09:30:00 (Radha) 11:15: Weller 00 [id number] Sensory impaired Sensory Resolve 2017-042018-03-22 Roselyn hearing d 0-10 09:55:00 (Radha) 11:15: Weller 00 [id number] Integument pressure Integument Resolve 2017-042018-08-21 Roselyn ulcer d 0-10 12:45:00 (Radha) present 11:15: Weller [id number] Integument skin Integument Resolve 2017-042018-03-03 Roselyn integrity d 0-10 09:19:00 (Radha) risk 11:15: Weller [id number] Integument surgical Integument Resolve 2017-042018-03-03 Quality wound d 0-10 09:19:00 Realtime7 present 11:15: 00 Integument other wound Integument Resolve 2017-042018-03-03 Quality present d 0-10 09:19:00 Realtime7 11:15: 00 Elimination urinary Eliminatio Resolve 2017-042018-03-20 Roselyn incontinenc n d 0-10 12:30:00 (Radha) e 11:15: Weller [id number] Neuro confusion Neuro/Emot Resolve 2017-042018-03-22 Roselyn present ion d 0-10 09:55:00 (Radha) 11:15: Weller [id number] Neuro anxiety Neuro/Emot Resolve 2017-042018-03-22 Roselyn present ion d 0-10 09:55:00 (Radha) 11:15: Weller [id number] Neuro impaired Neuro/Emot Resolve 2017-042018-03-22 Roselyn decision-ma ion d 0-10 09:55:00 (Radha) pj 11:15: Weller [id number] Activity ADL Activity Resolve 2017-042018-03-22 Roselyn assistance d 0-10 09:55:00 (Radha) required 11:15: [id number] Safety structural Safety Resolve 2017-042018-03-22 Roselyn barriers d 0-10 09:55:00 (Radha) present 11:15: Weller [id number] Safety fall risk Safety Resolve 2017-042018-03-22 Roselyn factor d 0-10 09:55:00 (Radha) present 11:15: Weller [id number] Safety risk for Safety Resolve 2017-042018-03-22 Roselyn hospitaliza d 0-10 09:55:00 (Radha) tion 11:15: Weller [id number] Safety can be left Safety Resolve 2017-042018-03-22 Roselyn alone for d 0-10 09:55:00 (Radha) only short 11:15: Weller 00 [id number] Medication oral med Meds Resolve 2017-042018-02-06 Roselyn assistance d 0-10 09:15:00 (Radha) required 11:15: Weller [id number] Medication injectable Meds Resolve 2017-042018-02-06 Roselyn med d 0-10 09:15:00 (Radha) assistance 11:15: Weller required 00 [id number] Medication knowledge/s Meds Resolve 2017-042018-02-15 Roselyn kill d 0-10 10:20:00 (Radha) deficit: pt 11:15: Weller 00 [id number] Medication potential Meds Resolve 2017-042018-02-15 Roselyn clinically d 0-10 10:20:00 (Radha) significant 11:15: Weller medication 00 [id number] issue Musculoskel transfer Musculoske Resolve 2017-042018-03-20 Roselyn etal assistance letal d 0-10 12:30:00 (Radha) required 11:15: Weller [id number] Musculoskel requires Musculoske Resolve 2017-042018-03-20 Roselyn etal human letal d 0-10 12:30:00 (Radha) assist to 11:15: Weller leave home 00 [id number] Safety knowledge/s Safety Resolve 2017-042018-03-22 Laura kill d 0-12 09:55:00 Jean-Claude deficit: pt 10:00: [id number] 00 Respiratory knowledge/s Respirator Resolve 2017-042018-02-06 Laura kill y d 0-15 09:15:00 Jean-Claude deficit: cg 10:00: [id number] 00 Respiratory lung sounds Respirator Resolve 2017-042018-02-06 Laura deficit y d 0-15 09:15:00 Mastic 10:00: [id number] 00 Sensory impaired Sensory Resolve 2017-042018-03-22 Quality verbal d 0-17 09:55:00 Realtime7 communicati 18:36: on 42 Musculoskel knowledge/s Musculoske Resolve 2017-042018-03-03 Laura etal kill letal d 0-24 09:19:00 Jean-Claude deficit: cg 09:45: [id number] 00 Nutrition knowledge/s Nutrition Resolve 2017-042018-03-03 Laura kill d 0-26 09:19:00 Mastic deficit: pt 09:15: [id number] 00 Nutrition nutritional Nutrition Resolve 2017-042018-03-03 Laura restriction d 09:19:00 Mastic s 09:15: [id number] 00 Elimination catheter Eliminatio Resolve 2017-042018-03-20 Laura present n d 0 12:30:00 Jean-Claude 09:15: [id number] 00 Elimination constipatio Eliminatio Resolve 2017-042018-03-20 Laura n n d 0 12:30:00 Mastic 09:15: [id number] 00 Infection s/s of Infection Resolve 2017-042018-03-22 Laura infection d 0 09:55:00 Jean-Claude 09:30: [id number] 00 Endo/Edgard insulin Endo/Edgard Resolve 2017-042018-03-20 Laura admn d 04-22 12:30:00 Jean-Claude dependence 09:50: [id number] 00 Respiratory dyspnea Respirator Resolve 2017-042018-03-08 Laura present y d 04-24 09:20:00 Jean-Claude 10:07: [id number] 00 Safety cannot be Safety Resolve 2017-042018-03-22 Laura left alone d 04-24 09:55:00 Jean-Claude 10:07: [id number] 00 Cardio edema Cardiovasc Resolve 2017-042018-03-03 Laura ular d 04-26 09:19:00 Jean-Claude 09:51: [id number] 00 Respiratory Incentive Respirator Resolve 2017-042018-03-03 Laura Spirometer y d 04-26 09:19:00 Jean-Claude /Acapella 09:51: [id number] Device 00 treatments in home Endo/Edgard knowledge/s Endo/Edgard Resolve 2017-042018-03-20 Laura kill d 05-08 12:30:00 Mastic deficit: pt 09:20: [id number] 00 Nutrition knowledge/s Nutrition Resolve 2017-042018-04-19 Laura kill d 05-08 09:45:00 Jean-Claude deficit: pt 09:20: [id number] 00 Nutrition nutritional Nutrition Resolve 2017-042018-04-19 Laura restriction d 05-08 09:45:00 Jean-Claude s 09:20: [id number] 00 Endo/Edgard diabetic Endo/Edgard Resolve 2017-042018-03-20 Laura foot care d 2- 12:30:00 Jean-Claude 09:20: [id number] 00 Pain frequent Pain Mgmt Unknown 2017-04 Laura pain 2- Mastic 12:45: [id number] 00 Respiratory dyspnea Respirator Resolve 2017-042018-03-20 Laura present y d 2 12:30:00 Mastic 12:45: [id number] 00 Integument pressure Integument Unknown 2017-04 Laura ulcer 2- Jean-Claude present 12:45: [id number] 00 Integument surgical Integument Resolve 2017-042018-03-24 Laura wound d 2 11:23:00 Jean-Claude present 12:45: [id number] 00 Endo/Edgard diabetic Endo/Edgard Resolve 2017-042018-03-24 Laura foot care d 05-23 11:23:00 Jean-Claude 09:55: [id number] 00 Elimination catheter Eliminatio Resolve 2017-042018-04-19 Laura present n d 05-23 09:45:00 Jean-Claude 09:55: [id number] 00 Safety risk for Safety Resolve 2017-042018-04-19 Laura hospitaliza d 2 09:45:00 Jean-Cladue tion 11:23: [id number] 00 Safety can be left Safety Resolve 2017-042018-04-19 Laura alone for d 2- 09:45:00 Jean-Claude only short 11:23: [id number] periods 00 Musculoskel knowledge/s Musculoske Resolve 2017-042018-03-29 Laura etal kill letal d - 09:30:00 Jean-Claude deficit: cg 10:20: [id number] 00 Musculoskel requires Musculoske Resolve 2017-042018-04-12 Laura etal human letal d 2- 09:45:00 Jean-Claude assist to 10:20: [id number] leave home 00 Endo/Edgard diabetic Endo/Edgard Resolve 2017-042018-04-19 Laura foot care d 2- 09:45:00 Jean-Claude 09:30: [id number] 00 Elimination constipatio Eliminatio Resolve 2017-042018-04-12 Laura n n d 05-30 09:45:00 Mastic 09:30: [id number] 00 Pain frequent Pain Mgmt Unknown 2017-04 Laura pain 06-06 Jean-Claude 09:45: [id number] 00 Endo/Edgard insulin Endo/Edgard Resolve 2017-042018-04-19 Laura admn d 06-06 09:45:00 Mastic dependence 09:45: [id number] 00 Endo/Edgard anti-coagul Endo/Edgard Resolve 2017-042018-04-19 Laura ation d 06-06 09:45:00 Mastic therapy 09:45: [id number] 00 Integument surgical Integument Resolve 2017-042018-04-05 Laura wound d 06-06 09:45:00 Mastic present 09:45: [id number] 00 Integument skin Integument Resolve 2017-042018-04-05 Laura integrity d 06-06 09:45:00 Jean-Claude risk 09:45: [id number] 00 Integument pressure Integument Unknown 2017-04 Laura ulcer 06-06 Jean-Claude present 09:45: [id number] 00 Elimination UTI within Eliminatio Resolve 2017-042018-04-12 Laura past 14 n d 06-06 09:45:00 Jean-Claude days 09:45: [id number] 00 Activity ADL Activity Resolve 2017-042018-09-15 Laura assistance d 06-06 10:35:00 Jean-Claude required 09:45: [id number] 00 Safety fall risk Safety Resolve 2017-042018-04-19 Laura factor d 06-06 09:45:00 Jean-Claude present 09:45: [id number] 00 Medication potential Meds Resolve 2017-042018-04-19 Laura clinically d 06-06 09:45:00 Jean-Claude significant 09:45: [id number] medication 00 issue Medication oral med Meds Resolve 2017-042018-04-05 Shari assistance d 06-06 09:45:00 Regeczi required 09:45: [id number] 00 Medication injectable Meds Resolve 2017-042018-08-09 Shari med d 06-06 09:20:00 Regeczi assistance 09:45: [id number] required 00 Musculoskel transfer Musculoske Resolve 2017-042018-04-12 Shari etal assistance letal d 06-06 09:45:00 Regeczi required 09:45: [id number] 00 Medication oral med Meds Resolve 2017-042018-04-19 Laura assistance d 06-08 09:45:00 Jean-Claude required 10:00: [id number] 00 Medication injectable Meds Unknown 2017-04 Laura med 06-08 Mastic assistance 10:00: [id number] required 00 Sensory impaired Sensory Resolve 2017-042018-04-19 Nima verbal d 06-08 09:45:00 Graves communicati 15:20: [id number] on 00 Sensory impaired Sensory Resolve 2017-042018-04-19 Nima hearing d 06-08 09:45:00 Graves 15:20: [id number] 00 Medication injectable Meds Unknown 2017-04 Nhung med Pérez assistance 14:56: [id number] required 00 Medication injectable Meds Unknown Nima med 04-13 Graves assistance 13:50: [id number] required 00 Elimination constipatio Eliminatio Resolve 2018-04-19 Laura n n d 04-14 09:45:00 Jean-Claude 09:28: [id number] 00 Medication injectable Meds Unknown Laura med 04-17 Mastic assistance 10:00: [id number] required 00 Medication injectable Meds Resolve 2018-04-19 Laura med d 04-19 09:45:00 Mastic assistance 09:45: [id number] required 00 Endo/Edgard anti-coagul Endo/Edgard Resolve 2018-04-26 Laura ation d 04-21 10:15:00 Jean-Claude therapy 09:45: [id number] 00 Nutrition knowledge/s Nutrition Resolve 2018-04-26 Laura kill d 04-21 10:15:00 Mastic deficit: pt 09:45: [id number] 00 Nutrition nutritional Nutrition Resolve 2018-04-26 Laura restriction d 04-21 10:15:00 Jean-Claude s 09:45: [id number] 00 Elimination catheter Eliminatio Resolve 2018-04-26 Laura present n d 04-21 10:15:00 Jean-Claude 09:45: [id number] 00 Elimination constipatio Eliminatio Resolve 2018-04-26 Laura n n d 04-21 10:15:00 Jean-Claude 09:45: [id number] 00 Safety risk for Safety Resolve 2018-04-26 Laura hospitaliza d 1-11 10:15:00 Jean-Claude tion 09:45: [id number] 00 Safety can be left Safety Resolve 2018-04-26 Laura alone for d 1-11 10:15:00 Jean-Claude only short 09:45: [id number] periods 00 Sensory impaired Sensory Resolve 2018-04-26 Nima verbal d 1-11 10:15:00 Graves communicati 14:30: [id number] on 00 Sensory impaired Sensory Resolve 2018-04-26 Nima hearing d 1-11 10:15:00 Graves 14:30: [id number] 00 Sensory impaired Sensory Resolve 2018-04-28 Nima verbal d 1-17 10:20:00 Graves communicati 12:45: [id number] on 00 Sensory impaired Sensory Resolve 2018-04-28 Nima hearing d 1-17 10:20:00 Graves 12:45: [id number] 00 Endo/Edgard anti-coagul Endo/Edgard Resolve 2018-05-24 Laura ation d 1-18 12:30:00 Jean-Claude therapy 10:20: [id number] 00 Safety risk for Safety Active Laura hospitaliza - Mastic tion 10:20: [id number] 00 Safety can be left Safety Resolve 2018-05-10 Laura alone for d 1- 13:45:00 Jean-Claude only short 10:10: [id number] Sensory impaired Sensory Resolve 2018-05-10 Jia hearing d 05-05 13:45:00 Hillebrand 13:30: t 00 [id number] Sensory impaired Sensory Resolve 2018-05-10 Jia verbal d 1 13:45:00 Hillebrand communicati 13:30: t on 00 [id number] Elimination catheter Eliminatio Resolve 2018-05-08 Wandy present n d 05-08 08:50:00 ,Kaylee 08:50: 00 Elimination constipatio Eliminatio Resolve 2018-06-28 Wandy n n d 05-08 09:45:00 ,Kaylee 08:50: 00 Safety cannot be Safety Resolve 2018-05-10 Laura left alone d 1- 13:45:00 Mastic 08:50: [id number] 00 Elimination catheter Eliminatio Resolve 2018-05-12 Shari present n d 2- 09:30:00 Regeczi 09:30: [id number] 00 Safety can be left Safety Resolve 2018-05-17 Laura alone for d - 10:00:00 Jea-Nclaude only short 09:30: [id number] periods 00 Elimination urinary Eliminatio Resolve 2018-05-15 Laura incontinenc n d 05-15 08:45:00 Mastic e 08:45: [id number] 00 Pain frequent Pain Mgmt Resolve 2018-05-17 Laura pain d 2-06 10:00:00 Mastic 10:00: [id number] 00 Respiratory lung sounds Respirator Resolve 2018-05-22 Laura deficit y d 2-06 10:44:00 Jean-Claude 10:00: [id number] 00 Integument pressure Integument Unknown Laura ulcer 2-06 Jean-Claude present 10:00: [id number] 00 Integument skin Integument Resolve 2018-05-17 Laura integrity d 2-06 10:00:00 Mastic risk 10:00: [id number] 00 Integument surgical Integument Resolve 2018-05-17 Laura wound d 2-06 10:00:00 Jean-Claude present 10:00: [id number] 00 Activity ADL Activity Unknown 2018- Laura assistance 2-06 Mastic required 10:00: [id number] 00 Activity self-care Activity Resolve 2018-05-19 Laura deficit d 2-06 11:15:00 Jean-Claude 10:00: [id number] 00 Safety fall risk Safety Resolve 2018-05-19 Laura factor d 2-06 11:15:00 Mastic present 10:00: [id number] 00 Elimination urinary Eliminatio Resolve 2018-05-24 Thornberry incontinenc n d 2- 12:30:00 Kaylee 11:15: 00 Safety can be left Safety Resolve 2018-05-24 Laura alone for d 2-08 12:30:00 Jean-Claude only short 11:15: [id number] periods 00 Safety fall risk Safety Resolve 2018-05-24 Sonia White factor d 2-12 12:30:00 present 09:48: 41 Endo/Edgard glucose Endo/Edgard Resolve 2018-05-24 Laura tolerance d 2-13 12:30:00 Mastic problem 12:30: [id number] 00 Respiratory Incentive Respirator Resolve 2018-06-07 Laura Spirometer y d 2-15 12:00:00 Jean-Claude /Acapella 13:40: [id number] Device 00 treatments in home Endo/Edgard anti-coagul Endo/Edgard Resolve 2018-06-12 Laura ation d 2-15 09:30:00 Jean-Claude therapy 13:40: [id number] 00 Elimination urinary Eliminatio Resolve 2018-05-26 Laura incontinenc n d 2-15 13:40:00 Jean-Claude e 13:40: [id number] 00 Safety can be left Safety Resolve 2018-06-07 Laura alone for d 2-15 12:00:00 Jean-Claude only short 13:40: [id number] periods 00 Endo/Edgard glucose Endo/Edgard Resolve 2018-06-07 Cherrise tolerance d 2-22 12:00:00 Ulm problem 10:15: [id number] 00 Endo/Edgard insulin Endo/Edgard Resolve 2018-06-12 Cherrise admn d 2-22 09:30:00 Ulm dependence 10:15: [id number] 00 Endo/Edgard glucose Endo/Edgard Resolve 2018-06-12 Cherrise testing d 2- 09:30:00 Trixie dependence 10:15: [id number] 00 Safety fall risk Safety Resolve 2018-06-07 Cherrise factor d 2-22 12:00:00 Ulm present 10:15: [id number] 00 Musculoskel transfer Musculoske Active Cherrise etal assistance letal 06-02 Trixie required 10:15: [id number] 00 Musculoskel requires Musculoske Active Cherrise etal human letal 2 Ulm assist to 10:15: [id number] leave home 00 Elimination urinary Eliminatio Resolve 2018-06-07 Laura incontinenc n d 06-05 12:00:00 Jean-Claude e 12:30: [id number] 00 Activity self-care Activity Resolve 2018-08-14 Laura deficit d 06-05 12:10:00 Mastic 12:30: [id number] 00 Elimination urinary Eliminatio Resolve 2018-06-12 Laura incontinenc n d 06-09 09:30:00 Jean-Claude e 09:13: [id number] 00 Safety can be left Safety Resolve 2018-06-12 Laura alone for d 06-09 09:30:00 Jean-Claude only short 09:13: [id number] periods 00 Respiratory Incentive Respirator Resolve 2018-06-14 Laura Spirometer y d 06-12 09:30:00 Jean-Claude /Acapemiguel 09:30: [id number] Device 00 treatments in home Endo/Edgard anti-coagul Endo/Edgard Resolve 2018-06-30 Laura ation d 06-14 09:19:00 Jean-Claude therapy 09:30: [id number] 00 Safety can be left Safety Resolve 2018-06-30 Laura alone for d 06-14 09:19:00 Jaen-Claude alejo 09:30: [id number] periods 00 Elimination urinary Eliminatio Resolve 2018-06-19 Laura incontinenc n d 06-16 13:45:00 Jean-Claude e 09:45: [id number] 00 Elimination urinary Eliminatio Resolve 2018-06-28 Laura incontinenc n d 06-23 09:45:00 Jean-Claude e 13:15: [id number] 00 Elimination constipatio Eliminatio Resolve 2018-07-14 Laura n n d 06-30 09:20:00 Mastic 09:19: [id number] 00 Endo/Edgard anti-coagul Endo/Edgard Resolve 2018-07-14 Laura ation d 07-03 09:20:00 Jean-Claude therapy 12:49: [id number] 00 Elimination urinary Eliminatio Resolve 2018-07-14 Laura incontinenc n d 07-03 09:20:00 Mastic e 12:49: [id number] 00 Safety can be left Safety Resolve 2018-08-18 Laura alone for d 07-07 12:05:00 Jean-Claude only short 12:50: [id number] periods 00 Endo/Edgard glucose Endo/Edgard Resolve 2018-07-14 Shi testing d 07-10 09:20:00 Sorin, dependence 12:30: [id number] 00 Pain frequent Pain Mgmt Resolve 2018-07-14 Laura pain d 07-14 09:20:00 Jean-Claude 09:20: [id number] 00 Integument surgical Integument Resolve 2018-08-13 Laura wound d 07-14 12:50:00 Jean-Claude present 09:20: [id number] 00 Integument skin Integument Resolve 2018-08-13 Laura integrity d 07-14 12:50:00 Mastic risk 09:20: [id number] 00 Safety fall risk Safety Resolve 2018-08-18 Laura factor d 07-14 12:05:00 Mastic present 09:20: [id number] 00 Endo/Edgard anti-coagul Endo/Edgard Resolve 2018-08-14 Laura ation d 07-17 12:10:00 Jean-Claude therapy 13:00: [id number] 00 Elimination urinary Eliminatio Resolve 2018-07-21 Laura incontinenc n d 07-17 09:25:00 Jean-Claude e 13:00: [id number] 00 Activity ADL Activity Unknown Laura assistance 07-17 Mastic required 13:00: [id number] 00 Elimination urinary Eliminatio Resolve 2018-08-14 Laura incontinenc n d 07-24 12:10:00 Mastic e 09:27: [id number] 00 Pain frequent Pain Mgmt Resolve 2018 Laura pain d 08-07 09:20:00 Jean-Claude 12:45: [id number] 00 Cardio edema Cardiovasc Resolve 2018 Laura ular d 08-07 09:20:00 Jean-Claude 12:45: [id number] 00 Respiratory dyspnea Respirator Resolve 2018 Laura present y d 08-07 09:20:00 Jean-Claude 12:45: [id number] 00 Endo/Edgard diabetic Endo/Edgard Resolve 2018-08-14 Laura foot care d 08-07 12:10:00 Jean-Claude 12:45: [id number] 00 Nutrition knowledge/s Nutrition Active Laura kill 08-07 Jean-Claude deficit: pt 12:45: [id number] 00 Nutrition nutritional Nutrition Active Laura restriction 08-07 Jean-Claude s 12:45: [id number] 00 Neuro confusion Neuro/Emot Resolve 2018-08-14 Laura present ion d 08-07 12:10:00 Jean-Claude 12:45: [id number] 00 Medication oral med Meds Resolve 2018 Laura assistance d 08-07 09:20:00 Mastic required 12:45: [id number] 00 Medication injectable Meds Resolve 2018 Jia med d 08-07 09:20:00 Jerardo assistance 12:45: [id number] required 00 Cardio edema Cardiovasc Resolve 2018-08-23 Laura ular d 08-13 11:15:00 Jean-Claude 12:50: [id number] 00 Respiratory dyspnea Respirator Resolve 2018-08-14 Laura present y d 08-13 12:10:00 Jean-Claude 12:50: [id number] 00 Endo/Edgard anti-coagul Endo/Edgard Resolve 2018-08-28 Laura ation d 08-16 12:00:00 Jean-Claude therapy 12:15: [id number] 00 Elimination urinary Eliminatio Resolve 2018-08-21 Laura incontinenc n d 08-16 12:45:00 Jean-Claude e 12:15: [id number] 00 Sensory impaired Sensory Resolve 2018-08-21 Krystyna verbal d 08-17 12:45:00 Traunstein communicati 14:30: [id number] on 00 Sensory impaired Sensory Resolve 2018-08-21 Krystyna hearing d 08-17 12:45:00 Tra[place] 14:30: [id number] 00 Social financial LILLIAN: Resolve 2019-02-16 Krystyna Services resource Social d 08-17 13:45:00 Tra[place] deficit Services 14:30: [id number] 00 Social knowledge/s LILLIAN: Resolve 2018-08-17 Krystyna Services kill Social d 08-17 14:30:00 Traunstein deficit - Services 14:30: [id number] pt 00 Social knowledge/s LILLIAN: Resolve 2018-08-17 Krystyna Services kill Social d 08-17 14:30:00 Traunstein deficit - Services 14:30: [id number] cg 00 Safety can be left Safety Resolve 2018-09-07 Laura alone for d 5-15 10:00:00 Jean-Claude cruz short 11:15: [id number] periods 00 Social knowledge/s LILLIAN: Active Laura Services kill Social 08-23 Mastic deficit - Services 11:15: [id number] pt 00 Elimination urinary Eliminatio Resolve 2018-09-07 Laura incontinenc n d 08-25 10:00:00 Jean-Claude e 11:45: [id number] 00 Sensory impaired Sensory Resolve 2018-09-07 Krystyna verbal d 09-01 10:00:00 [facility] 14[facility]45: [id number] on 00 Sensory impaired Sensory Resolve 2018-09-07 Krystyna hearing d 09-01 10:00:00 [facility] 14:45: [id number] 00 Social knowledge/s LILLIAN: Active Krystyna Services kill Social 09-01 Traunstein deficit - Services 14:45: [id number] cg 00 Respiratory dyspnea Respirator Resolve 2018-09-15 Laura present y d 09-07 10:35:00 Jean-Claude 10:00: [id number] 00 Pain frequent Pain Mgmt Resolve 2018-09-11 Laura pain d 09-11 11:50:00 Jean-Claude 11:50: [id number] 00 Cardio hypertensio Cardiovasc Resolve 2018-09-11 Laura n ular d 09-11 11:50:00 Jean-Claude 11:50: [id number] 00 Integument pressure Integument Resolve 2018-09-15 Laura ulcer d 6 10:35:00 Jean-Claude present 11:50: [id number] 00 Integument surgical Integument Resolve 2018-09-15 Laura wound d 6-03 10:35:00 Mastic present 11:50: [id number] 00 Integument skin Integument Resolve 2018-09-15 Laura integrity d 09-11 10:35:00 Mastic risk 11:50: [id number] 00 Elimination urinary Eliminatio Resolve 2018-09-11 Laura incontinenc n d 09-11 11:50:00 Jean-Claude e 11:50: [id number] 00 Activity ADL Activity Unknown Laura assistance 09-11 Mastic required 11:50: [id number] 00 Activity self-care Activity Resolve 2018-09-15 Laura deficit d 09-11 10:35:00 Jean-Claude 11:50: [id number] 00 Safety fall risk Safety Resolve 2018-09-15 Laura factor d 09-11 10:35:00 Mastic present 11:50: [id number] 00 Safety can be left Safety Resolve 2018-09-15 Laura alone for d 09-11 10:35:00 Jean-Claude only short 11:50: [id number] periods 00 Endo/Edgard anti-coagul Endo/Edgard Resolve 2018-09-18 Laura ation d 09-15 12:20:00 Mastic therapy 10:35: [id number] 00 Elimination urinary Eliminatio Resolve 2018-09-18 Laura incontinenc n d 09-15 12:20:00 Jean-Claude e 10:35: [id number] 00 Elimination constipatio Eliminatio Resolve 2018-09-18 Laura n n d 09-15 12:20:00 Jean-Claude 10:35: [id number] 00 Safety can be left Safety Resolve 2018-09-25 Laura alone for d 610 11:45:00 Jean-Claude only short 12:20: [id number] periods 00 Cardio hypertensio Cardiovasc Resolve 2018-09-21 Laura n ular d 09-21 11:45:00 Jean-Claude 11:45: [id number] 00 Endo/Edgard anti-coagul Endo/Edgard Resolve 2018-09-25 Laura ation d 09-21 11:45:00 Jean-Claude therapy 11:45: [id number] 00 Cardio hypertensio Cardiovasc Resolve 2018-10-02 Laura n ular d 6- 12:05:00 Jean-Claude 11:45: [id number] 00 Elimination urinary Eliminatio Resolve 2018-10-02 Laura incontinenc n d 6 12:05:00 Jean-Claude e 11:45: [id number] 00 Endo/Edgard anti-coagul Endo/Edgard Resolve 2018-10-02 Laura ation d 09-29 12:05:00 Mastic therapy 09:45: [id number] 00 Safety can be left Safety Resolve 2018-10-02 Laura alone for d 09-29 12:05:00 Jean-Claude only short 09:45: [id number] 00 Endo/Edgard anti-coagul Endo/Edgard Resolve 2018-10-27 Laura ation d 10-04 11:30:00 Mastic therapy 10:10: [id number] 00 Elimination urinary Eliminatio Resolve 2018-10-06 Laura incontinenc n d 10-04 09:10:00 Jean-Claude e 10:10: [id number] 00 Elimination constipatio Eliminatio Resolve 2018-10-06 Laura n n d 10-04 09:10:00 Jean-Claude 10:10: [id number] 00 Safety can be left Safety Resolve 2018-10-06 Laura alone for d 10-04 09:10:00 Jean-Claude only short 10:10: [id number] Sensory impaired Sensory Resolve 2018-10-23 Krystyna verbal d 10-05 11:56:00 Tra[place]stein communicati 15:00: [id number] on 00 Sensory impaired Sensory Resolve 2018-10-23 Krystyna hearing d 10-05 11:56:00 [place] 15:00: [id number] 00 Elimination urinary Eliminatio Resolve 2018-10-27 Laura incontinenc n d 10-09 11:30:00 Jean-Claude butler 12:15: [id number] 00 Elimination bloody Eliminatio Resolve 2018-10-27 Laura urine n d 10-09 11:30:00 Jean-Claude 12:15: [id number] 00 Safety can be left Safety Resolve 2018-10-23 Laura alone for d 10-09 11:56:00 Jean-Claude only short 12:15: [id number] periods Elimination constipatio Eliminatio Resolve 2018-12-08 Laura n n d 10-16 14:00:00 Jean-Claude 12:35: [id number] 00 Cardio edema Cardiovasc Resolve 2018-10-27 Laura ular d 10-20 11:30:00 Jean-Claude 11:35: [id number] 00 Endo/Edgard knowledge/s Endo/Edgard Resolve 2018-10-27 Laura kill d 10-20 11:30:00 Jean-Claude deficit: pt 11:35: [id number] 00 Sensory impaired Sensory Unknown Jonatan verbal 7-15 Demarco, communicati 13:30: PT on [id number] Sensory impaired Sensory Unknown Jonatan hearing 15 Demarco, 13:30: PT [id number] Safety can be left Safety Resolve 2018-10-27 Laura alone for d 10-25 11:30:00 Jean-Claude cruz short 10:35: [id number] 00 Endo/Edgard glucose Endo/Edgard Resolve 2018-12-11 Cherrise tolerance d 10-30 09:30:00 Ulm problem 11:55: [id number] 00 Endo/Edgard insulin Endo/Edgard Resolve 2018-12-13 Cherrise admn d 10-30 11:10:00 Trixie dependence 11:55: [id number] 00 Endo/Edgard glucose Endo/Edgard Resolve 2018-12-13 Cherrise testing d 10-30 11:10:00 [place] dependence 11:55: [id number] 00 Endo/Edgard knowledge/s Endo/Edgard Resolve 2018-12-08 Cherrise kill d 10-30 14:00:00 Trixie deficit: pt 11:55: [id number] 00 Elimination urinary Eliminatio Resolve 2018-12-08 Cherrise urgency n d 10-30 14:00:00 Ul[place] 11:55: [id number] 00 Neuro depressive Neuro/Emot Resolve 2018-12-08 Cherrise feelings ion d 10-30 14:00:00 Trixie present 11:55: [id number] 00 Neuro impaired Neuro/Emot Resolve 2018-12-08 Cherrise decision-ma ion d 10-30 14:00:00 Ulm pj 11:55: [id number] 00 Safety fall risk Safety Resolve 2018-12-06 Cherrise factor d 10-30 13:05:00 Ulm present 11:55: [id number] 00 Endo/Edgard anti-coagul Endo/Edgard Resolve 2018-12-13 Shi ation d 11-01 11:10:00 Sorin, therapy 12:30: [id number] 00 Respiratory Incentive Respirator Resolve 2018-11-29 Cherrise Spirometer y d 11-03 10:15:00 [place] /Acapella 10:25: [id number] Device 00 treatments in home Elimination urinary Eliminatio Resolve 2018-12-08 Cherrise frequency n d 11-03 14:00:00 Ulm 10:25: [id number] 00 Respiratory lung sounds Respirator Resolve 2018-11-29 Cherrise deficit y d 11-06 10:15:00 Trixie 12:05: [id number] 00 Neuro memory Neuro/Emot Resolve 2018-12-08 Cherrise deficit ion d 11-08 14:00:00 Trixie needing 10:30: [id number] supervision 00 Pain frequent Pain Mgmt Resolve 2018-12-06 Shi pain d 11-10 13:05:00 Sorin, 11:00: [id number] 00 Integument pressure Integument Active Shi ulcer 11-10 Sorin, present 11:00: [id number] 00 Integument surgical Integument Active 2018- Shi wound 11-10 Sorin, present 11:00: [id number] 00 Integument skin Integument Active 2018- Shi integrity 11-10 Sorin, risk 11:00: [id number] 00 Elimination urinary Eliminatio Resolve 2018-12-08 Shi incontinenc n d 11-10 14:00:00 Sorin, e 11:00: [id number] 00 Activity self-care Activity Resolve 2018-11-29 Shi deficit d 11-10 10:15:00 Sorin, 11:00: [id number] 00 Activity ADL Activity Resolve 2018-12-08 Shi assistance d 11-10 14:00:00 Sorin, required 11:00: [id number] 00 Pain knowledge/s Pain Mgmt Resolve 2018-12-06 Krystyna kill d 11-16 13:05:00 Traunstein deficit: cg 15:15: [id number] 00 Respiratory knowledge/s Respirator Resolve 2018-11-29 Krystyna kill y d 11-16 10:15:00 Traunstein deficit: cg 15:15: [id number] 00 Integument knowledge/s Integument Active Krystyna kill 11-16 Traunstein deficit: cg 15:15: [id number] 00 Elimination knowledge/s Eliminatio Resolve 2018-12-08 Krystyna kill n d 11-16 14:00:00 Traunstein deficit: cg 15:15: [id number] 00 Safety knowledge/s Safety Resolve 2018-12-06 Krystyna kill d 11-16 13:05:00 Traunstein deficit: cg 15:15: [id number] 00 Cardio hypertensio Cardiovasc Resolve 2018-11-29 Lenny jarvis joseph d 11-17 10:15:00 Ulm 10:45: [id number] 00 Safety can be left Safety Resolve 2018-12-08 Shi alone for d 11-22 14:00:00 nancy Rowell short 11:00: [id number] periods 00 Sensory impaired Sensory Resolve 2018-12-08 Laura verbal d 11-24 14:00:00 Jean-Claude communicati 09:30: [id number] on 00 Sensory impaired Sensory Resolve 2018-12-08 Laura hearing d 11-24 14:00:00 Jean-Claude 09:30: [id number] 00 Respiratory knowledge/s Respirator Resolve 2018-12-08 Laura kill y d 12-01 14:00:00 Jean-Claude deficit: cg 09:30: [id number] 00 Sensory impaired Sensory Unknown Krystyna verbal 8 Traunstein communicati 15:00: [id number] on 00 Sensory impaired Sensory Unknown Krystyna hearing 12-08 Traunstein 15:00: [id number] 00 Respiratory knowledge/s Respirator Resolve 2018-12-13 Laura kill y d 12-11 11:10:00 Jean-Claude deficit: cg 09:30: [id number] 00 Endo/Edgard knowledge/s Endo/Edgard Resolve 2018-12-13 Laura kill d 12-11 11:10:00 Mastic deficit: pt 09:30: [id number] 00 Elimination urinary Eliminatio Resolve 2018-12-15 Laura incontinenc n d 12-11 13:10:00 Jean-Claude e 09:30: [id number] 00 Safety can be left Safety Resolve 2018-12-15 Laura alone for d 12-11 13:10:00 Jean-Claude only short 09:30: [id number] 00 Endo/Edgard knowledge/s Endo/Edgard Resolve 2019-01-05 Laura kill d 12-15 11:00:00 Jean-Claude deficit: pt 13:10: [id number] 00 Endo/Edgard anti-coagul Endo/Edgard Resolve 2019-01-05 Laura ation d 12-15 11:00:00 Jean-Claude therapy 13:10: [id number] 00 Elimination urinary Eliminatio Resolve 2018-12-27 Laura incontinenc n d 12-18 09:20:00 Jean-Claude e 12:10: [id number] 00 Safety can be left Safety Resolve 2019-01-05 Laura alone for d 12-18 11:00:00 Jean-Claude only short 12:10: [id number] periods 00 Elimination constipatio Eliminatio Resolve 2019-01-05 Laura n n d 12-20 11:00:00 Jean-Claude 12:15: [id number] 00 Pain frequent Pain Mgmt Resolve 2019-01-15 Laura pain d 12-27 12:30:00 Jean-Claude 09:20: [id number] 00 Respiratory dyspnea Respirator Resolve 2019-01-05 Laura present y d 12-27 11:00:00 Jean-Claude 09:20: [id number] 00 Endo/Edgard diabetic Endo/Edgard Resolve 2019-01-05 Laura foot care d 9 11:00:00 Jean-Claude 09:20: [id number] 00 Elimination diarrhea Eliminatio Resolve 2019-01-05 Laura n d 18 11:00:00 Jean-Claude 09:20: [id number] 00 Neuro confusion Neuro/Emot Resolve 2019-01-05 Laura present ion d 12-27 11:00:00 Jean-Claude 09:20: [id number] 00 Neuro anxiety Neuro/Emot Resolve 2019-01-05 Laura present ion d 12-27 11:00:00 Jean-Claude 09:20: [id number] 00 Activity ADL Activity Resolve 2019-01-05 Laura assistance d 12-27 11:00:00 Mastic required 09:20: [id number] 00 Activity self-care Activity Resolve 2019-01-05 Laura deficit d 12-27 11:00:00 Jean-Claude 09:20: [id number] 00 Safety fall risk Safety Resolve 2019-01-05 Laura factor d 12-27 11:00:00 Jean-Claude present 09:20: [id number] 00 Medication potential Meds Resolve 2019-01-05 Laura clinically d 12-27 11:00:00 Mastic significant 09:20: [id number] medication 00 issue Elimination urinary Eliminatio Resolve 2019-01-05 Laura incontinenc n d 12-29 11:00:00 Jean-Claude e 11:20: [id number] 00 Endo/Edgard knowledge/s Endo/Edgard Resolve 2019-01-10 Laura kill d 01-08 10:00:00 Jean-Claude deficit: pt 11:30: [id number] 00 Endo/Edgard anti-coagul Endo/Edgard Resolve 2019-01-10 Laura ation d 01-08 10:00:00 Jean-Claude therapy 11:30: [id number] 00 Elimination urinary Eliminatio Resolve 2019-01-15 Laura incontinenc n d 01-08 12:30:00 Mastic e 11:30: [id number] 00 Safety can be left Safety Resolve 2019-02-16 Laura alone for d 9-30 12:00:00 Jean-Claude only short 11:30: [id number] periods 00 Respiratory dyspnea Respirator Resolve 2018-042019-01-26 Laura present y d 0-02 10:00:00 Jean-Claude 10:00: [id number] 00 Activity ADL Activity Resolve 2018-042019-01-12 Laura assistance d 0-02 11:30:00 Mastic required 10:00: [id number] 00 Activity self-care Activity Resolve 2018-042019-01-12 Laura deficit d 0-02 11:30:00 Mastic 10:00: [id number] 00 Safety fall risk Safety Resolve 2018-042019-01-12 Laura factor d 0-02 11:30:00 Mastic present 10:00: [id number] 00 Medication injectable Meds Resolve 2018-042019-01-17 Laura med d 0-02 09:45:00 Mastic assistance 10:00: [id number] required 00 Endo/Edgard knowledge/s Endo/Edgard Resolve 2018-042019-01-15 Laura kill d 0-04 12:30:00 Jean-Claude deficit: pt 11:30: [id number] 00 Endo/Edgard anti-coagul Endo/Edgard Resolve 2018-042019-01-15 Laura ation d 0-04 12:30:00 Mastic therapy 11:30: [id number] 00 Elimination constipatio Eliminatio Resolve 2018-042019-01-15 Laura n n d 0-04 12:30:00 Mastic 11:30: [id number] 00 Sensory impaired Sensory Resolve 2018-042019-01-15 Krystyna verbal d 0-04 12:30:00 Traunstein communicati 15:30: [id number] on 00 Sensory impaired Sensory Resolve 2018-042019-01-15 Krystyna hearing d 0-04 12:30:00 Traunstein 15:30: [id number] 00 Infection s/s of Infection Active 2018-04 Laura infection 0-07 Jean-Claude 12:30: [id number] 00 Sensory impaired Sensory Resolve 2018-042019-01-22 Jonatan verbal d 0-08 11:00:00 Demarco communicflorentino 13:00: PT on 00 [id number] Sensory impaired Sensory Resolve 2018-042019-01-22 Jonatan hearing d 0-08 11:00:00 Demarco, 13:00: PT 00 [id number] Endo/Edgard knowledge/s Endo/Edgard Resolve 2018-042019-02-07 Laura kill d 0-09 11:20:00 Jean-Claude deficit: pt 09:45: [id number] 00 Endo/Edgard anti-coagul Endo/Edgard Resolve 2018-042019-02-07 Laura ation d 0-09 11:20:00 Jeanc-Laude therapy 09:45: [id number] 00 Elimination urinary Eliminatio Resolve 2018-042019-02-02 Laura incontinenc n d 0-09 11:30:00 Mastic e 09:45: [id number] 00 Elimination constipatio Eliminatio Resolve 2018-042019-02-02 Laura n n d 0-16 11:30:00 Jean-Claude 10:00: [id number] 00 Sensory impaired Sensory Resolve 2018-042019-01-31 Jonatan verbal d 0-17 11:10:00 Demarco, communicati 15:00: PT on 00 [id number] Sensory impaired Sensory Resolve 2018-042019-01-31 Jonatan hearing d 0-17 11:10:00 Demarco, 15:00: PT 00 [id number] Pain frequent Pain Mgmt Resolve 2018-042019-02-16 Jonatan pain d 0-23 12:00:00 Demarco, 13:00: PT 00 [id number] Sensory impaired Sensory Unknown 2018-04 Jonatan verbal 0-23 Demarco, communicati 13:00: PT on 00 [id number] Sensory impaired Sensory Unknown 2018-04 Jonatan hearing 0-23 Demarco, 13:00: PT 00 [id number] Respiratory dyspnea Respirator Resolve 2018-042019-02-07 Laura present y d 0-25 11:20:00 Jean-Claude 11:30: [id number] 00 Elimination urinary Eliminatio Resolve 2018-042019-02-07 Laura incontinenc n d 0-28 11:20:00 Jean-Claude e 12:40: [id number] 00 Endo/Edgard knowledge/s Endo/Edgard Resolve 2018-042019-02-19 Laura kill d 1 12:40:00 Jean-Claude deficit: pt 12:30: [id number] 00 Endo/Edgard anti-coagul Endo/Edgard Resolve 2018-042019-02-19 Laura ation d 04-11 12:40:00 Jean-Claude therapy 12:30: [id number] 00 Elimination urinary Eliminatio Resolve 2018-042019-02-16 Laura incontinenc n d 04-11 12:00:00 Jean-Claude e 12:30: [id number] 00 Medication potential Meds Resolve 2018-042019-02-24 Laura clinically d 04-14 09:45:00 Mastic significant 12:20: [id number] medication 00 issue Elimination constipatio Eliminatio Resolve 2018-042019-02-16 Laura n n d 04-16 12:00:00 Jean-Claude 11:20: [id number] 00 Elimination urinary Eliminatio Resolve 2018-042019-02-24 Laura incontinenc n d 04-21 09:45:00 Mastic e 12:40: [id number] 00 Safety can be left Safety Resolve 2018-042019-02-24 Laura alone for d 04-21 09:45:00 Jean-Claude only short 12:40: [id number] periods 00 Endo/Edgard knowledge/s Endo/Edgard Resolve 2018-042019-02-24 Laura kill d 04-23 09:45:00 Jean-Claude deficit: pt 12:05: [id number] 00 Endo/Edgard anti-coagul Endo/Edgard Resolve 2018-042019-02-24 Laura ation d 04-23 09:45:00 Mastic therapy 12:05: [id number] 00 Sensory impaired Sensory Resolve 2018-042019-02-26 Laura verbal d 04-26 13:20:00 Jean-Claude communicati 09:45: [id number] on 00 Sensory impaired Sensory Resolve 2018-042019-02-26 Laura hearing d 04-26 13:20:00 Jean-Claude 09:45: [id number] 00 Endo/Edgard knowledge/s Endo/Edgard Resolve 2018-042019-02-28 Laura kill d 04-28 11:15:00 Jean-Claude deficit: pt 13:20: [id number] 00 Endo/Edgard anti-coagul Endo/Edgard Resolve 2018-042019-02-28 Laura ation d 04-28 11:15:00 Jean-Claude therapy 13:20: [id number] 00 Elimination urinary Eliminatio Active 2018-04 Laura incontinenc n 04-28 Mastic e 13:20: [id number] 00 Safety can be left Safety Resolve 2018-042019-03-05 Laura alone for d 04-28 12:45:00 Jean-Claude only short 13:20: [id number] periods 00 Endo/Edgard knowledge/s Endo/Edgard Active 2018-04 Laura kill 05-05 Mastic deficit: pt 12:45: [id number] 00 Endo/Edgard anti-coagul Endo/Edgard Active 2018-04 Laura ation 05-05 Jean-Claude therapy 12:45: [id number] 00 Safety can be left Safety Active 2018-04 Laura alone for 05-07 Mastic only short 11:25: [id number] 00 Allergies, Adverse Reactions, Alerts Allergy Name Allergy Status Severity Reaction(s) Onset Inactive Treating Comments Type Date Date Clinician bananas Unknown Active Unknown Reaction 2017-04 Roselyn Unknown 0-10 (Radha) Nithin [id number] keflex Unknown Active Unknown Reaction 2017-04 Roselyn Unknown 0-10 (Radha) Nithin [id number] nuts Unknown Active Unknown Reaction 2017-04 Roselyn Unknown 0-10 (Radha) Nithin [id number] Cipro Medication Active Unknown Reaction 2017-04 Sonia White Name ID Unknown 0-10 metronidazol Base Active Unknown Nausea and 2017-04 Roselyn e Ingredient vomiting 2-20 Guidelli [id number] Medications Ordered Filled Start Stop Current Ordering [...] No Shallish 1 puff Unknown 20 20 MD,Ajmie mcg-albuter mcg-albuter ol 100 ol 100 mcg/actuati [...] nded nded release release loperamide loperamide No Maroa 1-2 Unknown 2 mg tablet 2 mg [...] pen s pen testosteron testosteron 2017-04 No Maroa Unknown Unknown e cypionate e cypionate 06-06 Latanya DAVID 200 mg/mL 200 mg/mL intramuscul intramuscul ar kit ar kit mometasone mometasone 2017-04 No Maroa Unknown Unknown 0.1 % 0.1 % 06-06 Latanya DAVID topical topical cream cream finasteride finasteride 2017-04 No [place] Unknown Unknown 5 mg tablet 5 mg tablet 06-06 MD,Latanya Peggy Levemir Levemir 2017-04- Maroa Unknown Unknown FlexTouch FlexTouch 06-06 ,Latanya Woods [...] s syringe s syringe cephALEXin cephALEXin 2018- Yes Benitez Unknown Unknown 500 mg 500 mg 12-08 DPM,Thony capsule capsule doxycycline doxycycline 2018-04- Yes Shallish Unknown Unknown hyclate 100 hyclate 100 0- MD,Jamie mg capsule mg capsule clindamycin clindamycin 2018-04- Yes Shallish Unknown Unknown HCl 300 mg HCl 300 mg 01-31 MD,Jamie capsule capsule Vital Signs Vital Name Observation Time Observation Value Comments SYSTOLIC mm[Hg] 2019-03-07 18:09:04 140 mm[Hg] mm[Hg] Method: Sit SYSTOLIC mm[Hg] 2018-01-23 18:02:16 122 mm[Hg] mm[Hg] Method: Stand DIASTOLIC mm[Hg] 2019-03-07 18:09:04 70 mm[Hg] mm[Hg] Method: Sit DIASTOLIC mm[Hg] 2018-01-23 18:02:16 60 mm[Hg] mm[Hg] Method: Stand PULSE 2019-03-07 18:09:04 76 /min /min RESP RATE 2019-03-07 18:09:04 16 /min /min TEMP 2019-03-07 18:09:04 98.2 [degF] Procedures This patient has no known procedures. Results This patient has no known results.
--- OUTSIDE RECORDS SUMMARY | 2019-04-11 14:41 | XMS REPORT ---
:1940 Author Organization [facility] Care Team Providers Name Role Phone Unavailable Unavailable Unavailable Problems Condition Condition Condition Status Onset Resolution Last Treating Comments Name Details Category Date Date Treatment Clinician Date Pain frequent Pain Mgmt Resolve 2017-042018-05-08 Roselyn pain d 0-10 08:50:00 (Radha) 11:15: Weller 00 [id number] Cardio edema Cardiovasc Resolve 2017-042018-02-20 Roselyn ular d 0-10 09:50:00 (Radha) 11:15: Weller 00 [id number] Respiratory dyspnea Respirator Resolve 2017-042018-02-15 Roselyn present y d 0-10 10:20:00 (Radha) 11:15: Weller 00 [id number] Endo/Edgard glucose Endo/Edgard Resolve 2017-042018-03-20 Roselyn testing d 0-10 12:30:00 (Radha) dependence 11:15: Weller 00 [id number] Endo/Edgard knowledge/s Endo/Edgard Resolve 2017-042018-03-06 Roselyn kill d 0-10 09:30:00 (Radha) deficit: pt 11:15: Weller 00 [id number] Endo/Edgard anti-coagul Endo/Edgard Resolve 2017-042018-03-20 Roselyn ation d 0-10 12:30:00 (Radha) therapy 11:15: Weller 00 [id number] Endo/Edgard diabetic Endo/Edgard Resolve 2017-042018-03-06 Roselyn foot care d 0-10 09:30:00 (Radha) 11:15: Weller 00 [id number] Sensory impaired Sensory Resolve 2017-042018-03-22 Roselyn hearing d 0-10 09:55:00 (Radha) 11:15: Weller 00 [id number] Integument pressure Integument Resolve 2017-042018-08-21 Roselyn ulcer d 0-10 12:45:00 (Radha) present 11:15: Weller [id number] Integument skin Integument Resolve 2017-042018-03-03 Roselyn integrity d 0-10 09:19:00 (Radha) risk 11:15: Weller [id number] Integument surgical Integument Resolve 2017-042018-03-03 Quality wound d 0-10 09:19:00 Realtime7 present 11:15: 00 Integument other wound Integument Resolve 2017-042018-03-03 Quality present d 0-10 09:19:00 Realtime7 11:15: 00 Elimination urinary Eliminatio Resolve 2017-042018-03-20 Roselyn incontinenc n d 0-10 12:30:00 (Radha) e 11:15: Weller [id number] Neuro confusion Neuro/Emot Resolve 2017-042018-03-22 Roselyn present ion d 0-10 09:55:00 (Radha) 11:15: Weller [id number] Neuro anxiety Neuro/Emot Resolve 2017-042018-03-22 Roselyn present ion d 0-10 09:55:00 (Radha) 11:15: Weller [id number] Neuro impaired Neuro/Emot Resolve 2017-042018-03-22 Roselyn decision-ma ion d 0-10 09:55:00 (Radha) pj 11:15: Weller [id number] Activity ADL Activity Resolve 2017-042018-03-22 Roselyn assistance d 0-10 09:55:00 (Radha) required 11:15: [id number] Safety structural Safety Resolve 2017-042018-03-22 Roselyn barriers d 0-10 09:55:00 (Radha) present 11:15: Weller [id number] Safety fall risk Safety Resolve 2017-042018-03-22 Roselyn factor d 0-10 09:55:00 (Radha) present 11:15: Weller [id number] Safety risk for Safety Resolve 2017-042018-03-22 Roselyn hospitaliza d 0-10 09:55:00 (Radha) tion 11:15: Weller [id number] Safety can be left Safety Resolve 2017-042018-03-22 Roselyn alone for d 0-10 09:55:00 (Radha) only short 11:15: Weller 00 [id number] Medication oral med Meds Resolve 2017-042018-02-06 Roselyn assistance d 0-10 09:15:00 (Radha) required 11:15: Weller [id number] Medication injectable Meds Resolve 2017-042018-02-06 Roselyn med d 0-10 09:15:00 (Radha) assistance 11:15: Weller required 00 [id number] Medication knowledge/s Meds Resolve 2017-042018-02-15 Roselyn kill d 0-10 10:20:00 (Radha) deficit: pt 11:15: Weller 00 [id number] Medication potential Meds Resolve 2017-042018-02-15 Roselyn clinically d 0-10 10:20:00 (Radha) significant 11:15: Weller medication 00 [id number] issue Musculoskel transfer Musculoske Resolve 2017-042018-03-20 Roselyn etal assistance letal d 0-10 12:30:00 (Radha) required 11:15: Weller [id number] Musculoskel requires Musculoske Resolve 2017-042018-03-20 Roselyn etal human letal d 0-10 12:30:00 (Radha) assist to 11:15: Weller leave home 00 [id number] Safety knowledge/s Safety Resolve 2017-042018-03-22 Laura kill d 0-12 09:55:00 Jean-Claude deficit: pt 10:00: [id number] 00 Respiratory knowledge/s Respirator Resolve 2017-042018-02-06 Laura kill y d 0-15 09:15:00 Jean-Claude deficit: cg 10:00: [id number] 00 Respiratory lung sounds Respirator Resolve 2017-042018-02-06 Laura deficit y d 0-15 09:15:00 [place] 10:00: [id number] 00 Sensory impaired Sensory Resolve 2017-042018-03-22 Quality verbal d 0-17 09:55:00 Realtime7 communicati 18:36: on 42 Musculoskel knowledge/s Musculoske Resolve 2017-042018-03-03 Laura etal kill letal d 0-24 09:19:00 Jean-Claude deficit: cg 09:45: [id number] 00 Nutrition knowledge/s Nutrition Resolve 2017-042018-03-03 Laura kill d 0-26 09:19:00 [place] deficit: pt 09:15: [id number] 00 Nutrition nutritional Nutrition Resolve 2017-042018-03-03 Laura restriction d 09:19:00 [place] s 09:15: [id number] 00 Elimination catheter Eliminatio Resolve 2017-042018-03-20 Laura present n d 0 12:30:00 Jean-Claude 09:15: [id number] 00 Elimination constipatio Eliminatio Resolve 2017-042018-03-20 Laura n n d 0 12:30:00 [place] 09:15: [id number] 00 Infection s/s of Infection Resolve 2017-042018-03-22 Laura infection d 0 09:55:00 Jean-Claude 09:30: [id number] 00 Endo/Edgard insulin Endo/Edgard Resolve 2017-042018-03-20 Laura admn d 04-22 12:30:00 Jean-Claude dependence 09:50: [id number] 00 Respiratory dyspnea Respirator Resolve 2017-042018-03-08 Laura present y d 04-24 09:20:00 Jean-Claude 10:07: [id number] 00 Safety cannot be Safety Resolve 2017-042018-03-22 Laura left alone d 04-24 09:55:00 Jean-Claude 10:07: [id number] 00 Cardio edema Cardiovasc Resolve 2017-042018-03-03 Laura ular d 04-26 09:19:00 Jean-Claude 09:51: [id number] 00 Respiratory Incentive Respirator Resolve 2017-042018-03-03 Laura Spirometer y d 04-26 09:19:00 Jean-Claude /Acapella 09:51: [id number] Device 00 treatments in home Endo/Edgard knowledge/s Endo/Edgard Resolve 2017-042018-03-20 Laura kill d 05-08 12:30:00 [place] deficit: pt 09:20: [id number] 00 Nutrition knowledge/s Nutrition Resolve 2017-042018-04-19 Laura kill d 05-08 09:45:00 Jean-Claude deficit: pt 09:20: [id number] 00 Nutrition nutritional Nutrition Resolve 2017-042018-04-19 Laura restriction d 05-08 09:45:00 Jean-Claude s 09:20: [id number] 00 Endo/Edgard diabetic Endo/Edgard Resolve 2017-042018-03-20 Laura foot care d 2- 12:30:00 Jean-Claude 09:20: [id number] 00 Pain frequent Pain Mgmt Unknown 2017-04 Laura pain 2- [place] 12:45: [id number] 00 Respiratory dyspnea Respirator Resolve 2017-042018-03-20 Laura present y d 2 12:30:00 [place] 12:45: [id number] 00 Integument pressure Integument Unknown 2017-04 Laura ulcer 2- Jean-Claude present 12:45: [id number] 00 Integument surgical Integument Resolve 2017-042018-03-24 Laura wound d 2 11:23:00 Jean-Claude present 12:45: [id number] 00 Endo/Edgard diabetic Endo/Edgard Resolve 2017-042018-03-24 Laura foot care d 05-23 11:23:00 Jean-Claude 09:55: [id number] 00 Elimination catheter Eliminatio Resolve 2017-042018-04-19 Laura present n d 05-23 09:45:00 Jean-Claude 09:55: [id number] 00 Safety risk for Safety Resolve 2017-042018-04-19 Laura hospitaliza d 2 09:45:00 Jean-Claude tion 11:23: [id number] 00 Safety can be left Safety Resolve 2017-042018-04-19 Laura alone for d 2- 09:45:00 Jean-Claude only short 11:23: [id number] periods 00 Musculoskel knowledge/s Musculoske Resolve 2017-042018-03-29 Laura etal kill letal d - 09:30:00 Jean-Claude deficit: cg 10:20: [id number] 00 Musculoskel requires Musculoske Resolve 2017-042018-04-12 Laura etal human letal d 2- 09:45:00 Jean-Claude assist to 10:20: [id number] leave home 00 Endo/Edgard diabetic Endo/Edgard Resolve 2017-042018-04-19 Laura foot care d 2- 09:45:00 Jean-Claude 09:30: [id number] 00 Elimination constipatio Eliminatio Resolve 2017-042018-04-12 Laura n n d 05-30 09:45:00 [place] 09:30: [id number] 00 Pain frequent Pain Mgmt Unknown 2017-04 Laura pain 06-06 Jean-Claude 09:45: [id number] 00 Endo/Edgard insulin Endo/Edgard Resolve 2017-042018-04-19 Laura admn d 06-06 09:45:00 [place] dependence 09:45: [id number] 00 Endo/Edgard anti-coagul Endo/Edgard Resolve 2017-042018-04-19 Laura ation d 06-06 09:45:00 [place] therapy 09:45: [id number] 00 Integument surgical Integument Resolve 2017-042018-04-05 Laura wound d 06-06 09:45:00 [place] present 09:45: [id number] 00 Integument skin Integument Resolve 2017-042018-04-05 Laura integrity d 06-06 09:45:00 Jean-Claude risk 09:45: [id number] 00 Integument pressure Integument Unknown 2017-04 Laura ulcer 06-06 Jean-Claude present 09:45: [id number] 00 Elimination UTI within Eliminatio Resolve 2017-042018-04-12 Laura past 14 n d 06-06 09:45:00 Jean-Claude days 09:45: [id number] 00 Activity ADL Activity Resolve 2017-042018-09-15 Laura assistance d 06-06 10:35:00 Jean-Claude required 09:45: [id number] 00 Safety fall risk Safety Resolve 2017-042018-04-19 Laura factor d 06-06 09:45:00 Jean-Claude present 09:45: [id number] 00 Medication potential Meds Resolve 2017-042018-04-19 Laura clinically d 06-06 09:45:00 Jean-Claude significant 09:45: [id number] medication 00 issue Medication oral med Meds Resolve 2017-042018-04-05 Shari assistance d 06-06 09:45:00 Regeczi required 09:45: [id number] 00 Medication injectable Meds Resolve 2017-042018-08-09 Shari med d 06-06 09:20:00 Regeczi assistance 09:45: [id number] required 00 Musculoskel transfer Musculoske Resolve 2017-042018-04-12 Shari etal assistance letal d 06-06 09:45:00 Regeczi required 09:45: [id number] 00 Medication oral med Meds Resolve 2017-042018-04-19 Laura assistance d 06-08 09:45:00 Jean-Claude required 10:00: [id number] 00 Medication injectable Meds Unknown 2017-04 Laura med 06-08 [place] assistance 10:00: [id number] required 00 Sensory impaired Sensory Resolve 2017-042018-04-19 Nima verbal d 06-08 09:45:00 [place] communicati 15:20: [id number] on 00 Sensory impaired Sensory Resolve 2017-042018-04-19 Nima hearing d 06-08 09:45:00 [place] 15:20: [id number] 00 Medication injectable Meds Unknown 2017-04 Nhung med Pérez assistance 14:56: [id number] required 00 Medication injectable Meds Unknown Nima med 04-13 [place] assistance 13:50: [id number] required 00 Elimination constipatio Eliminatio Resolve 2018-04-19 Laura n n d 04-14 09:45:00 Jean-Claude 09:28: [id number] 00 Medication injectable Meds Unknown Laura med 04-17 [place] assistance 10:00: [id number] required 00 Medication injectable Meds Resolve 2018-04-19 Laura med d 04-19 09:45:00 [place] assistance 09:45: [id number] required 00 Endo/Edgard anti-coagul Endo/Edgard Resolve 2018-04-26 Laura ation d 04-21 10:15:00 Jean-Claude therapy 09:45: [id number] 00 Nutrition knowledge/s Nutrition Resolve 2018-04-26 Laura kill d 04-21 10:15:00 [place] deficit: pt 09:45: [id number] 00 Nutrition nutritional Nutrition Resolve 2018-04-26 Laura restriction d 04-21 10:15:00 Jean-Claude s 09:45: [id number] 00 Elimination catheter Eliminatio Resolve 2018-04-26 Laura present n d 04-21 10:15:00 Jean-Claude 09:45: [id number] 00 Elimination constipatio Eliminatio Resolve 2018-04-26 Laura n n d 04-21 10:15:00 Jean-Claude 09:45: [id number] 00 Safety risk for Safety Resolve 2018-04-26 Laura hospitaliza d 1-11 10:15:00 Jean-Claude tion 09:45: [id number] 00 Safety can be left Safety Resolve 2018-04-26 Laura alone for d 1-11 10:15:00 Jean-Claude only short 09:45: [id number] periods 00 Sensory impaired Sensory Resolve 2018-04-26 Nima verbal d 1-11 10:15:00 [place] communicati 14:30: [id number] on 00 Sensory impaired Sensory Resolve 2018-04-26 Nima hearing d 1-11 10:15:00 [place] 14:30: [id number] 00 Sensory impaired Sensory Resolve 2018-04-28 Nima verbal d 1-17 10:20:00 [place] communicati 12:45: [id number] on 00 Sensory impaired Sensory Resolve 2018-04-28 Nima hearing d 1-17 10:20:00 [place] 12:45: [id number] 00 Endo/Edgard anti-coagul Endo/Edgard Resolve 2018-05-24 Laura ation d 1-18 12:30:00 Jean-Claude therapy 10:20: [id number] 00 Safety risk for Safety Active Laura hospitaliza - [place] tion 10:20: [id number] 00 Safety can be left Safety Resolve 2018-05-10 Laura alone for d 1- 13:45:00 Jean-Claude only short 10:10: [id number] Sensory impaired Sensory Resolve 2018-05-10 Jia hearing d 05-05 13:45:00 [place] 13:30: t 00 [id number] Sensory impaired Sensory Resolve 2018-05-10 Jia verbal d 1 13:45:00 [place] communicati 13:30: t on 00 [id number] Elimination catheter Eliminatio Resolve 2018-05-08 Wandy present n d 05-08 08:50:00 ,Kaylee 08:50: 00 Elimination constipatio Eliminatio Resolve 2018-06-28 Wandy n n d 05-08 09:45:00 ,Kaylee 08:50: 00 Safety cannot be Safety Resolve 2018-05-10 Laura left alone d 1- 13:45:00 [place] 08:50: [id number] 00 Elimination catheter Eliminatio Resolve 2018-05-12 Shari present n d 2- 09:30:00 Regeczi 09:30: [id number] 00 Safety can be left Safety Resolve 2018-05-17 Laura alone for d - 10:00:00 Jean-Claude only short 09:30: [id number] periods 00 Elimination urinary Eliminatio Resolve 2018-05-15 Laura incontinenc n d 05-15 08:45:00 [place] e 08:45: [id number] 00 Pain frequent Pain Mgmt Resolve 2018-05-17 Laura pain d 2-06 10:00:00 [place] 10:00: [id number] 00 Respiratory lung sounds Respirator Resolve 2018-05-22 Laura deficit y d 2-06 10:44:00 Jean-Claude 10:00: [id number] 00 Integument pressure Integument Unknown Laura ulcer 2-06 Jean-Claude present 10:00: [id number] 00 Integument skin Integument Resolve 2018-05-17 Laura integrity d 2-06 10:00:00 [place] risk 10:00: [id number] 00 Integument surgical Integument Resolve 2018-05-17 Laura wound d 2-06 10:00:00 Jean-Claude present 10:00: [id number] 00 Activity ADL Activity Unknown 2018- Laura assistance 2-06 [place] required 10:00: [id number] 00 Activity self-care Activity Resolve 2018-05-19 Laura deficit d 2-06 11:15:00 Jean-Claude 10:00: [id number] 00 Safety fall risk Safety Resolve 2018-05-19 Laura factor d 2-06 11:15:00 [place] present 10:00: [id number] 00 Elimination urinary Eliminatio Resolve 2018-05-24 [place] incontinenc n d 2- 12:30:00 Kaylee 11:15: 00 Safety can be left Safety Resolve 2018-05-24 Laura alone for d 2-08 12:30:00 Jean-Claude only short 11:15: [id number] periods 00 Safety fall risk Safety Resolve 2018-05-24 Sonia White factor d 2-12 12:30:00 present 09:48: 41 Endo/Edgard glucose Endo/Edgard Resolve 2018-05-24 Laura tolerance d 2-13 12:30:00 [place] problem 12:30: [id number] 00 Respiratory Incentive Respirator Resolve 2018-06-07 Laura Spirometer y d 2-15 12:00:00 Jean-Claude /Acapella 13:40: [id number] Device 00 treatments in home Endo/Edgard anti-coagul Endo/Edgard Resolve 2018-06-12 Laura ation d 2-15 09:30:00 Jean-Claude therapy 13:40: [id number] 00 Elimination urinary Eliminatio Resolve 2018-05-26 Laura incontinenc n d 2-15 13:40:00 Jean-Claude e 13:40: [id number] 00 Safety can be left Safety Resolve 2018-06-07 Laura alone for d 2-15 12:00:00 Jean-Claude only short 13:40: [id number] periods 00 Endo/Edgard glucose Endo/Edgard Resolve 2018-06-07 Cherrise tolerance d 2-22 12:00:00 [place] problem 10:15: [id number] 00 Endo/Edgard insulin Endo/Edgard Resolve 2018-06-12 Cherrise admn d 2-22 09:30:00 [place] dependence 10:15: [id number] 00 Endo/Edgard glucose Endo/Edgard Resolve 2018-06-12 Cherrise testing d 2- 09:30:00 Trixie dependence 10:15: [id number] 00 Safety fall risk Safety Resolve 2018-06-07 Cherrise factor d 2-22 12:00:00 [place] present 10:15: [id number] 00 Musculoskel transfer Musculoske Active Cherrise etal assistance letal 06-02 Trixie required 10:15: [id number] 00 Musculoskel requires Musculoske Active Cherrise etal human letal 2 [place] assist to 10:15: [id number] leave home 00 Elimination urinary Eliminatio Resolve 2018-06-07 Laura incontinenc n d 06-05 12:00:00 Jean-Claude e 12:30: [id number] 00 Activity self-care Activity Resolve 2018-08-14 Laura deficit d 06-05 12:10:00 [place] 12:30: [id number] 00 Elimination urinary Eliminatio Resolve 2018-06-12 Laura incontinenc n d 06-09 09:30:00 Jean-Claude e 09:13: [id number] 00 Safety can be left Safety Resolve 2018-06-12 Laura alone for d 06-09 09:30:00 Jean-Claude only short 09:13: [id number] periods 00 Respiratory Incentive Respirator Resolve 2018-06-14 Laura Spirometer y d 06-12 09:30:00 Jean-Claude /Acapemiguel 09:30: [id number] Device 00 treatments in home Endo/Edgard anti-coagul Endo/Edgard Resolve 2018-06-30 Laura ation d 06-14 09:19:00 Jean-Claude therapy 09:30: [id number] 00 Safety can be left Safety Resolve 2018-06-30 Laura alone for d 06-14 09:19:00 Jean-Claude alejo 09:30: [id number] periods 00 Elimination urinary Eliminatio Resolve 2018-06-19 Laura incontinenc n d 06-16 13:45:00 eJan-Claude e 09:45: [id number] 00 Elimination urinary Eliminatio Resolve 2018-06-28 Laura incontinenc n d 06-23 09:45:00 Jean-Claude e 13:15: [id number] 00 Elimination constipatio Eliminatio Resolve 2018-07-14 Laura n n d 06-30 09:20:00 [place] 09:19: [id number] 00 Endo/Edgard anti-coagul Endo/Edgard Resolve 2018-07-14 Laura ation d 07-03 09:20:00 Jean-Claude therapy 12:49: [id number] 00 Elimination urinary Eliminatio Resolve 2018-07-14 Laura incontinenc n d 07-03 09:20:00 [place] e 12:49: [id number] 00 Safety can be left Safety Resolve 2018-08-18 Laura alone for d 07-07 12:05:00 Jean-Claude only short 12:50: [id number] periods 00 Endo/Edgard glucose Endo/Edgard Resolve 2018-07-14 Shi testing d 07-10 09:20:00 Sorin, dependence 12:30: [id number] 00 Pain frequent Pain Mgmt Resolve 2018-07-14 Laura pain d 07-14 09:20:00 Jean-Claude 09:20: [id number] 00 Integument surgical Integument Resolve 2018-08-13 Laura wound d 07-14 12:50:00 Jean-Claude present 09:20: [id number] 00 Integument skin Integument Resolve 2018-08-13 Laura integrity d 07-14 12:50:00 [place] risk 09:20: [id number] 00 Safety fall risk Safety Resolve 2018-08-18 Laura factor d 07-14 12:05:00 [place] present 09:20: [id number] 00 Endo/Edgard anti-coagul Endo/Edgard Resolve 2018-08-14 Laura ation d 07-17 12:10:00 Jean-Claude therapy 13:00: [id number] 00 Elimination urinary Eliminatio Resolve 2018-07-21 Laura incontinenc n d 07-17 09:25:00 Jean-Claude e 13:00: [id number] 00 Activity ADL Activity Unknown Laura assistance 07-17 [place] required 13:00: [id number] 00 Elimination urinary Eliminatio Resolve 2018-08-14 Laura incontinenc n d 07-24 12:10:00 [place] e 09:27: [id number] 00 Pain frequent Pain Mgmt Resolve 2018 Laura pain d 08-07 09:20:00 Jean-Claude 12:45: [id number] 00 Cardio edema Cardiovasc Resolve 2018 Laura ular d 08-07 09:20:00 Jean-Claude 12:45: [id number] 00 Respiratory dyspnea Respirator Resolve 2018 Laura present y d 08-07 09:20:00 Jean-Claude 12:45: [id number] 00 Endo/Edgard diabetic Endo/Edgard Resolve 2018-08-14 Laura foot care d 08-07 12:10:00 Jean-Claude 12:45: [id number] 00 Nutrition knowledge/s Nutrition Active Laura kill 08-07 Jean-Claude deficit: pt 12:45: [id number] 00 Nutrition nutritional Nutrition Active Laura restriction 08-07 Jean-Claude s 12:45: [id number] 00 Neuro confusion Neuro/Emot Resolve 2018-08-14 Laura present ion d 08-07 12:10:00 Jean-Claude 12:45: [id number] 00 Medication oral med Meds Resolve 2018 Laura assistance d 08-07 09:20:00 [place] required 12:45: [id number] 00 Medication injectable Meds Resolve 2018 Jia med d 08-07 09:20:00 Jerardo assistance 12:45: [id number] required 00 Cardio edema Cardiovasc Resolve 2018-08-23 Laura ular d 08-13 11:15:00 Jean-Claude 12:50: [id number] 00 Respiratory dyspnea Respirator Resolve 2018-08-14 Laura present y d 08-13 12:10:00 Jean-Claude 12:50: [id number] 00 Endo/Edgard anti-coagul Endo/Edgard Resolve 2018-08-28 Laura ation d 08-16 12:00:00 Jean-Claude therapy 12:15: [id number] 00 Elimination urinary Eliminatio Resolve 2018-08-21 Laura incontinenc n d 08-16 12:45:00 Jean-Claude e 12:15: [id number] 00 Sensory impaired Sensory Resolve 2018-08-21 Krystyna verbal d 08-17 12:45:00 [place] communicati 14:30: [id number] on 00 Sensory impaired Sensory Resolve 2018-08-21 Krystyna hearing d 08-17 12:45:00 [place] 14:30: [id number] 00 Social financial LILLIAN: Resolve 2019-02-16 Krystyna Services resource Social d 08-17 13:45:00 [place] deficit Services 14:30: [id number] 00 Social knowledge/s LILLIAN: Resolve 2018-08-17 Krystyna Services kill Social d 08-17 14:30:00 [place] deficit - Services 14:30: [id number] pt 00 Social knowledge/s LILLIAN: Resolve 2018-08-17 Krystyna Services kill Social d 08-17 14:30:00 [place] deficit - Services 14:30: [id number] cg 00 Safety can be left Safety Resolve 2018-09-07 Laura alone for d 5-15 10:00:00 Jean-Claude cruz short 11:15: [id number] periods 00 Social knowledge/s LILLIAN: Active Laura Services kill Social 08-23 [place] deficit - Services 11:15: [id number] pt 00 Elimination urinary Eliminatio Resolve 2018-09-07 Laura incontinenc n d 08-25 10:00:00 Jean-Claude e 11:45: [id number] 00 Sensory impaired Sensory Resolve 2018-09-07 Krystyna verbal d 09-01 10:00:00 [facility] 14:45: [id number] on 00 Sensory impaired Sensory Resolve 2018-09-07 Krystyna hearing d 09-01 10:00:00 [facility] 14:45: [id number] 00 Social knowledge/s LILLIAN: Active Krystyna Services kill Social 09-01 [place] deficit - Services 14:45: [id number] cg 00 Respiratory dyspnea Respirator Resolve 2018-09-15 Laura present y d 09-07 10:35:00 Jean-Claude 10:00: [id number] 00 Pain frequent Pain Mgmt Resolve 2018-09-11 Laura pain d 09-11 11:50:00 Jean-Claude 11:50: [id number] 00 Cardio hypertensio Cardiovasc Resolve 2018-09-11 Laura n ular d 09-11 11:50:00 Jean-Claude 11:50: [id number] 00 Integument pressure Integument Resolve 2018-09-15 Laura ulcer d 6 10:35:00 Jean-Claude present 11:50: [id number] 00 Integument surgical Integument Resolve 2018-09-15 Laura wound d 6-03 10:35:00 [place] present 11:50: [id number] 00 Integument skin Integument Resolve 2018-09-15 Laura integrity d 09-11 10:35:00 [place] risk 11:50: [id number] 00 Elimination urinary Eliminatio Resolve 2018-09-11 Laura incontinenc n d 09-11 11:50:00 Jean-Claude e 11:50: [id number] 00 Activity ADL Activity Unknown Laura assistance 09-11 [place] required 11:50: [id number] 00 Activity self-care Activity Resolve 2018-09-15 Laura deficit d 09-11 10:35:00 Jean-Claude 11:50: [id number] 00 Safety fall risk Safety Resolve 2018-09-15 Laura factor d 09-11 10:35:00 [place] present 11:50: [id number] 00 Safety can be left Safety Resolve 2018-09-15 Laura alone for d 09-11 10:35:00 Jean-Claude only short 11:50: [id number] periods 00 Endo/Edgard anti-coagul Endo/Edgard Resolve 2018-09-18 Laura ation d 09-15 12:20:00 [place] therapy 10:35: [id number] 00 Elimination urinary Eliminatio Resolve 2018-09-18 Laura incontinenc n d 09-15 12:20:00 Jean-Claude e 10:35: [id number] 00 Elimination constipatio Eliminatio Resolve 2018-09-18 Laura n n d 09-15 12:20:00 Jean-Claude 10:35: [id number] 00 Safety can be left Safety Resolve 2018-09-25 Laura alone for d 610 11:45:00 Jean-Claude only short 12:20: [id number] periods 00 Cardio hypertensio Cardiovasc Resolve 2018-09-21 Laura n ular d 09-21 11:45:00 Jean-Claude 11:45: [id number] 00 Endo/Edgard anti-coagul Endo/Edgard Resolve 2018-09-25 Laura ation d 09-21 11:45:00 Jean-Claude therapy 11:45: [id number] 00 Cardio hypertensio Cardiovasc Resolve 2018-10-02 Laura n ular d 6- 12:05:00 Jean-Claude 11:45: [id number] 00 Elimination urinary Eliminatio Resolve 2018-10-02 Laura incontinenc n d 6 12:05:00 Jean-Claude e 11:45: [id number] 00 Endo/Edgard anti-coagul Endo/Edgard Resolve 2018-10-02 Laura ation d 09-29 12:05:00 [place] therapy 09:45: [id number] 00 Safety can be left Safety Resolve 2018-10-02 Laura alone for d 09-29 12:05:00 Jean-Claude only short 09:45: [id number] 00 Endo/Edgard anti-coagul Endo/Edgard Resolve 2018-10-27 Laura ation d 10-04 11:30:00 [place] therapy 10:10: [id number] 00 Elimination urinary Eliminatio Resolve 2018-10-06 Laura incontinenc n d 10-04 09:10:00 Jean-Claude e 10:10: [id number] 00 Elimination constipatio Eliminatio Resolve 2018-10-06 Laura n n d 10-04 09:10:00 Jean-Claude 10:10: [id number] 00 Safety can be left Safety Resolve 2018-10-06 Laura alone for d 10-04 09:10:00 Jean-Claude only short 10:10: [id number] Sensory impaired Sensory Resolve 2018-10-23 Krystyna verbal d 10-05 11:56:00 [place] communicati 15:00: [id number] on 00 Sensory impaired Sensory Resolve 2018-10-23 Krystyna hearing d 10-05 11:56:00 [place] 15:00: [id number] 00 Elimination urinary Eliminatio Resolve 2018-10-27 Laura incontinenc n d 10-09 11:30:00 Jean-Claude butler 12:15: [id number] 00 Elimination bloody Eliminatio Resolve 2018-10-27 Laura urine n d 10-09 11:30:00 Jean-Claude 12:15: [id number] 00 Safety can be left Safety Resolve 2018-10-23 Laura alone for d 10-09 11:56:00 Jean-Claude only short 12:15: [id number] periods Elimination constipatio Eliminatio Resolve 2018-12-08 Laura n n d 10-16 14:00:00 Jean-Claude 12:35: [id number] 00 Cardio edema Cardiovasc Resolve 2018-10-27 Laura ular d 10-20 11:30:00 Jean-Claude 11:35: [id number] 00 Endo/Edgard knowledge/s Endo/Edgard Resolve 2018-10-27 Laura kill d 10-20 11:30:00 Jean-Claude deficit: pt 11:35: [id number] 00 Sensory impaired Sensory Unknown Jonatan verbal 7-15 Demarco, communicati 13:30: PT on [id number] Sensory impaired Sensory Unknown Jonatan hearing 15 Demarco, 13:30: PT [id number] Safety can be left Safety Resolve 2018-10-27 Laura alone for d 10-25 11:30:00 Jean-Claude cruz short 10:35: [id number] 00 Endo/Edgard glucose Endo/Edgard Resolve 2018-12-11 Cherrise tolerance d 10-30 09:30:00 [place] problem 11:55: [id number] 00 Endo/Edgard insulin Endo/Edgard Resolve 2018-12-13 Cherrise admn d 10-30 11:10:00 Trixie dependence 11:55: [id number] 00 Endo/Edgard glucose Endo/Edgard Resolve 2018-12-13 Cherrise testing d 10-30 11:10:00 [place] dependence 11:55: [id number] 00 Endo/Edgard knowledge/s Endo/Edgard Resolve 2018-12-08 Cherrise kill d 10-30 14:00:00 Trixie deficit: pt 11:55: [id number] 00 Elimination urinary Eliminatio Resolve 2018-12-08 Cherrise urgency n d 10-30 14:00:00 [place] 11:55: [id number] 00 Neuro depressive Neuro/Emot Resolve 2018-12-08 Cherrise feelings ion d 10-30 14:00:00 Trixie present 11:55: [id number] 00 Neuro impaired Neuro/Emot Resolve 2018-12-08 Cherrise decision-ma ion d 10-30 14:00:00 [place] pj 11:55: [id number] 00 Safety fall risk Safety Resolve 2018-12-06 Cherrise factor d 10-30 13:05:00 [place] present 11:55: [id number] 00 Endo/Edgard anti-coagul Endo/Edgard Resolve 2018-12-13 Shi ation d 11-01 11:10:00 Sorin, therapy 12:30: [id number] 00 Respiratory Incentive Respirator Resolve 2018-11-29 Cherrise Spirometer y d 11-03 10:15:00 [place] /Acapella 10:25: [id number] Device 00 treatments in home Elimination urinary Eliminatio Resolve 2018-12-08 Cherrise frequency n d 11-03 14:00:00 [place] 10:25: [id number] 00 Respiratory lung sounds Respirator Resolve 2018-11-29 Cherrise deficit y d 11-06 10:15:00 Trixie 12:05: [id number] 00 Neuro memory Neuro/Emot Resolve 2018-12-08 Cherrise deficit ion d 11-08 14:00:00 Trixie needing 10:30: [id number] supervision 00 Pain frequent Pain Mgmt Resolve 2018-12-06 Shi pain d 11-10 13:05:00 Sorin, 11:00: [id number] 00 Integument pressure Integument Active Shi ulcer 11-10 Sorin, present 11:00: [id number] 00 Integument surgical Integument Active 2018- Shi wound 11-10 Sorin, present 11:00: [id number] 00 Integument skin Integument Active 2018- Shi integrity 11-10 Sorin, risk 11:00: [id number] 00 Elimination urinary Eliminatio Resolve 2018-12-08 Shi incontinenc n d 11-10 14:00:00 Sorin, e 11:00: [id number] 00 Activity self-care Activity Resolve 2018-11-29 Shi deficit d 11-10 10:15:00 Sorin, 11:00: [id number] 00 Activity ADL Activity Resolve 2018-12-08 Shi assistance d 11-10 14:00:00 Sorin, required 11:00: [id number] 00 Pain knowledge/s Pain Mgmt Resolve 2018-12-06 Krystyna kill d 11-16 13:05:00 [place] deficit: cg 15:15: [id number] 00 Respiratory knowledge/s Respirator Resolve 2018-11-29 Krystyna kill y d 11-16 10:15:00 [place] deficit: cg 15:15: [id number] 00 Integument knowledge/s Integument Active Krystyna kill 11-16 [place] deficit: cg 15:15: [id number] 00 Elimination knowledge/s Eliminatio Resolve 2018-12-08 Krystyna kill n d 11-16 14:00:00 [place] deficit: cg 15:15: [id number] 00 Safety knowledge/s Safety Resolve 2018-12-06 Krystyna kill d 11-16 13:05:00 [place] deficit: cg 15:15: [id number] 00 Cardio hypertensio Cardiovasc Resolve 2018-11-29 Lenny jarvis joseph d 11-17 10:15:00 [place] 10:45: [id number] 00 Safety can be left Safety Resolve 2018-12-08 Shi alone for d 11-22 14:00:00 nancy Rowell short 11:00: [id number] periods 00 Sensory impaired Sensory Resolve 2018-12-08 Laura verbal d 11-24 14:00:00 Jean-Claude communicati 09:30: [id number] on 00 Sensory impaired Sensory Resolve 2018-12-08 Laura hearing d 11-24 14:00:00 Jean-Claude 09:30: [id number] 00 Respiratory knowledge/s Respirator Resolve 2018-12-08 Laura kill y d 12-01 14:00:00 Jean-Claude deficit: cg 09:30: [id number] 00 Sensory impaired Sensory Unknown Krystyna verbal 8 [place] communicati 15:00: [id number] on 00 Sensory impaired Sensory Unknown Krystyna hearing 12-08 [place] 15:00: [id number] 00 Respiratory knowledge/s Respirator Resolve 2018-12-13 Laura kill y d 12-11 11:10:00 Jean-Claude deficit: cg 09:30: [id number] 00 Endo/Edgard knowledge/s Endo/Edgard Resolve 2018-12-13 Laura kill d 12-11 11:10:00 [place] deficit: pt 09:30: [id number] 00 Elimination urinary Eliminatio Resolve 2018-12-15 Laura incontinenc n d 12-11 13:10:00 Jean-Claude e 09:30: [id number] 00 Safety can be left Safety Resolve 2018-12-15 Laura alone for d 12-11 13:10:00 Jean-Claude only short 09:30: [id number] 00 Endo/Edgard knowledge/s Endo/Edgard Resolve 2019-01-05 Laura kill d 12-15 11:00:00 Jean-Claude deficit: pt 13:10: [id number] 00 Endo/Edgard anti-coagul Endo/Edgard Resolve 2019-01-05 Laura ation d 12-15 11:00:00 Jean-Claude therapy 13:10: [id number] 00 Elimination urinary Eliminatio Resolve 2018-12-27 Laura incontinenc n d 12-18 09:20:00 Jean-Claude e 12:10: [id number] 00 Safety can be left Safety Resolve 2019-01-05 Laura alone for d 12-18 11:00:00 Jean-Claude only short 12:10: [id number] periods 00 Elimination constipatio Eliminatio Resolve 2019-01-05 Laura n n d 12-20 11:00:00 Jean-Claude 12:15: [id number] 00 Pain frequent Pain Mgmt Resolve 2019-01-15 Laura pain d 12-27 12:30:00 Jean-Claude 09:20: [id number] 00 Respiratory dyspnea Respirator Resolve 2019-01-05 Laura present y d 12-27 11:00:00 Jean-Claude 09:20: [id number] 00 Endo/Edgard diabetic Endo/Edgard Resolve 2019-01-05 Laura foot care d 9 11:00:00 Jean-Claude 09:20: [id number] 00 Elimination diarrhea Eliminatio Resolve 2019-01-05 Laura n d 18 11:00:00 Jean-Claude 09:20: [id number] 00 Neuro confusion Neuro/Emot Resolve 2019-01-05 Laura present ion d 12-27 11:00:00 Jean-Claude 09:20: [id number] 00 Neuro anxiety Neuro/Emot Resolve 2019-01-05 Laura present ion d 12-27 11:00:00 Jean-Claude 09:20: [id number] 00 Activity ADL Activity Resolve 2019-01-05 Laura assistance d 12-27 11:00:00 [place] required 09:20: [id number] 00 Activity self-care Activity Resolve 2019-01-05 Laura deficit d 12-27 11:00:00 Jean-Claude 09:20: [id number] 00 Safety fall risk Safety Resolve 2019-01-05 Laura factor d 12-27 11:00:00 Jean-Claude present 09:20: [id number] 00 Medication potential Meds Resolve 2019-01-05 Laura clinically d 12-27 11:00:00 [place] significant 09:20: [id number] medication 00 issue Elimination urinary Eliminatio Resolve 2019-01-05 Laura incontinenc n d 12-29 11:00:00 Jean-Claude e 11:20: [id number] 00 Endo/Edgard knowledge/s Endo/Edgard Resolve 2019-01-10 Laura kill d 01-08 10:00:00 Jean-Claude deficit: pt 11:30: [id number] 00 Endo/Edgard anti-coagul Endo/Edgard Resolve 2019-01-10 Laura ation d 01-08 10:00:00 Jean-Claude therapy 11:30: [id number] 00 Elimination urinary Eliminatio Resolve 2019-01-15 Laura incontinenc n d 01-08 12:30:00 [place] e 11:30: [id number] 00 Safety can be left Safety Resolve 2019-02-16 Laura alone for d 9-30 12:00:00 Jean-Claude only short 11:30: [id number] periods 00 Respiratory dyspnea Respirator Resolve 2018-042019-01-26 Laura present y d 0-02 10:00:00 Jean-Claude 10:00: [id number] 00 Activity ADL Activity Resolve 2018-042019-01-12 Laura assistance d 0-02 11:30:00 [place] required 10:00: [id number] 00 Activity self-care Activity Resolve 2018-042019-01-12 Laura deficit d 0-02 11:30:00 [place] 10:00: [id number] 00 Safety fall risk Safety Resolve 2018-042019-01-12 Laura factor d 0-02 11:30:00 [place] present 10:00: [id number] 00 Medication injectable Meds Resolve 2018-042019-01-17 Laura med d 0-02 09:45:00 [place] assistance 10:00: [id number] required 00 Endo/Edgard knowledge/s Endo/Edgard Resolve 2018-042019-01-15 Laura kill d 0-04 12:30:00 Jean-Claude deficit: pt 11:30: [id number] 00 Endo/Edgard anti-coagul Endo/Edgard Resolve 2018-042019-01-15 Laura ation d 0-04 12:30:00 [place] therapy 11:30: [id number] 00 Elimination constipatio Eliminatio Resolve 2018-042019-01-15 Laura n n d 0-04 12:30:00 [place] 11:30: [id number] 00 Sensory impaired Sensory Resolve 2018-042019-01-15 Krystyna verbal d 0-04 12:30:00 [place] communicati 15:30: [id number] on 00 Sensory impaired Sensory Resolve 2018-042019-01-15 Krystyna hearing d 0-04 12:30:00 [place] 15:30: [id number] 00 Infection s/s of Infection Active 2018-04 Laura infection 0-07 Jean-Claude 12:30: [id number] 00 Sensory impaired Sensory Resolve 2018-042019-01-22 Jonatan verbal d 0-08 11:00:00 Demarco communicflorentino 13:00: PT on 00 [id number] Sensory impaired Sensory Resolve 2018-042019-01-22 Jonatan hearing d 0-08 11:00:00 Demarco, 13:00: PT 00 [id number] Endo/Edgard knowledge/s Endo/Edgard Resolve 2018-042019-02-07 Laura kill d 0-09 11:20:00 Jean-Claude deficit: pt 09:45: [id number] 00 Endo/Edgard anti-coagul Endo/Edgard Resolve 2018-042019-02-07 Laura ation d 0-09 11:20:00 Jean-Claude therapy 09:45: [id number] 00 Elimination urinary Eliminatio Resolve 2018-042019-02-02 Laura incontinenc n d 0-09 11:30:00 [place] e 09:45: [id number] 00 Elimination constipatio Eliminatio Resolve 2018-042019-02-02 Laura n n d 0-16 11:30:00 Jean-Claude 10:00: [id number] 00 Sensory impaired Sensory Resolve 2018-042019-01-31 Jonatan verbal d 0-17 11:10:00 Demarco, communicati 15:00: PT on 00 [id number] Sensory impaired Sensory Resolve 2018-042019-01-31 Jonatan hearing d 0-17 11:10:00 Demarco, 15:00: PT 00 [id number] Pain frequent Pain Mgmt Resolve 2018-042019-02-16 Jonatan pain d 0-23 12:00:00 Demarco, 13:00: PT 00 [id number] Sensory impaired Sensory Unknown 2018-04 Jonatan verbal 0-23 Demarco, communicati 13:00: PT on 00 [id number] Sensory impaired Sensory Unknown 2018-04 Jonatan hearing 0-23 Demarco, 13:00: PT 00 [id number] Respiratory dyspnea Respirator Resolve 2018-042019-02-07 Laura present y d 0-25 11:20:00 Jean-Claude 11:30: [id number] 00 Elimination urinary Eliminatio Resolve 2018-042019-02-07 Laura incontinenc n d 0-28 11:20:00 Jean-Claude e 12:40: [id number] 00 Endo/Edgard knowledge/s Endo/Edgard Resolve 2018-042019-02-19 Laura kill d 1 12:40:00 Jean-Claude deficit: pt 12:30: [id number] 00 Endo/Edgard anti-coagul Endo/Edgard Resolve 2018-042019-02-19 Laura ation d 04-11 12:40:00 Jean-Claude therapy 12:30: [id number] 00 Elimination urinary Eliminatio Resolve 2018-042019-02-16 Laura incontinenc n d 04-11 12:00:00 Jean-Claude e 12:30: [id number] 00 Medication potential Meds Resolve 2018-042019-02-24 Laura clinically d 04-14 09:45:00 [place] significant 12:20: [id number] medication 00 issue Elimination constipatio Eliminatio Resolve 2018-042019-02-16 Laura n n d 04-16 12:00:00 Jean-Claude 11:20: [id number] 00 Elimination urinary Eliminatio Resolve 2018-042019-02-24 Laura incontinenc n d 04-21 09:45:00 [place] e 12:40: [id number] 00 Safety can be left Safety Resolve 2018-042019-02-24 Laura alone for d 04-21 09:45:00 Jean-Claude only short 12:40: [id number] periods 00 Endo/Edgard knowledge/s Endo/Edgard Resolve 2018-042019-02-24 Laura kill d 04-23 09:45:00 Ejan-Claude deficit: pt 12:05: [id number] 00 Endo/Edgard anti-coagul Endo/Edgard Resolve 2018-042019-02-24 Laura ation d 04-23 09:45:00 [place] therapy 12:05: [id number] 00 Sensory impaired Sensory Resolve 2018-042019-02-26 Laura verbal d 04-26 13:20:00 Jean-Claude communicati 09:45: [id number] on 00 Sensory impaired Sensory Resolve 2018-042019-02-26 Laura hearing d 04-26 13:20:00 Jean-Claude 09:45: [id number] 00 Endo/Edgard knowledge/s Endo/Edgard Resolve 2018-042019-02-28 Laura kill d 04-28 11:15:00 Jean-Claude deficit: pt 13:20: [id number] 00 Endo/Edgard anti-coagul Endo/Edgard Resolve 2018-042019-02-28 Laura ation d 04-28 11:15:00 Jean-Claude therapy 13:20: [id number] 00 Elimination urinary Eliminatio Active 2018-04 Laura incontinenc n 04-28 [place] e 13:20: [id number] 00 Safety can be left Safety Resolve 2018-042019-03-05 Laura alone for d 04-28 12:45:00 Jean-Claude only short 13:20: [id number] periods 00 Endo/Edgard knowledge/s Endo/Edgard Active 2018-04 Laura kill 05-05 [place] deficit: pt 12:45: [id number] 00 Endo/Edgard anti-coagul Endo/Edgard Active 2018-04 Laura ation 05-05 Jean-Claude therapy 12:45: [id number] 00 Allergies, Adverse Reactions, Alerts Allergy Name Allergy Status Severity Reaction(s) Onset Inactive Treating Comments Type Date Date Clinician bananas Unknown Active Unknown Reaction 2017-04 Roselyn Unknown 0-10 (Radha) Nithin [id number] keflex Unknown Active Unknown Reaction 2017-04 Roselyn Unknown 0-10 (Radha) Nithin [id number] nuts Unknown Active Unknown Reaction 2017-04 Roselyn Unknown 0-10 (Radha) Nithin [id number] Cipro Medication Active Unknown Reaction 2017-04 Sonia White Name ID Unknown 0-10 metronidazol Base Active Unknown Nausea and 2017-04 Roselyn e Ingredient vomiting 2-20 Guidesylvain [id number] Medications Ordered Filled Start Stop Current Ordering [...] Shallish 1 Unknown (algal oil) (algal oil) MD,Jamie capsule 3 mg-35 3 mg-35 mg-2 mg-2 mg-90.314 mg-90.314 mg capsule mg capsule ipratropium ipratropium No Shallish 1 puff Unknown 20 20 MD,Jamie mcg-albuter mcg-albuter ol 100 ol 100 mcg/actuati mcg/actuati on mist for on mist for inhalation inhalation Lantus Lantus No Shallish 38 Unknown Solostar Solkevyn DAVIDJamie units U-100 U-100 Insulin 100 Insulin 100 unit/mL (3 unit/mL (3 mL) mL) subcutaneou subcutaneou s pen s pen acetaminoph acetaminoph No Shallish 2 tabs Unknown en 325 mg en 325 mg MD,Jamie tablet tablet Rapaflo 8 Rapaflo 8 2017-04 2019- No Shallish Unknown Unknown mg capsule mg capsule 0-10 -28 MD,Jamie Klor-Con Klor-Con No Shallish 1 Unknown [...] nded nded release release loperamide loperamide No [place] 1-2 Unknown 2 mg tablet 2 mg [...] Unknown Unknown 4 mg 4 mg 0-10 ,Jamie disintegrat disintegrat ing tablet ing tablet celecoxib celecoxib 2017-04 No Shallish Unknown Unknown 200 mg 200 mg 0-10 ,Jamie capsule capsule Miralax 17 Miralax 17 [...] pen s pen testosteron testosteron 2017-04 No [place] Unknown Unknown e cypionate e cypionate 06-06 Latanya DAVID 200 mg/mL 200 mg/mL intramuscul intramuscul ar kit ar kit mometasone mometasone 2017-04 No [place] Unknown Unknown 0.1 % 0.1 % 06-06 Latanya DAVID topical topical cream cream finasteride finasteride 2017-04 No [place] Unknown Unknown 5 mg tablet 5 mg tablet 06-06 Latanya DAVID Levemir Levemir 2018-1 2019- No [place] Unknown Unknown FlexTouch FlexTouch 06-06 MD,Latanya Woods U-100 U-100 Insulin 100 Insulin 100 unit/mL (3 unit/mL (3 mL) mL) subcutaneou subcutaneou s pen s pen Levemir Levemir 2018- Shallish Unknown Unknown FlexTouch FlexTouch 05-01 06-10 [...] Shallish Unknown Unknown mg tablet mg tablet 08-18- MD,Jamie warfarin 5 warfarin 5 2018- No Shallish Unknown Unknown mg tablet mg tablet 08-21 MD,Jmaie warfarin 5 warfarin 5 2018- No Shallish Unknown Unknown mg tablet mg tablet 08-23 MD,Jamie Coumadin Coumadin 2018- No Shallish Unknown Unknown 2.5 mg 2.5 mg 08-25-20 MD,Jamie tablet tablet Coumadin Coumadin 2018- No Shallish Unknown Unknown 2.5 mg 2.5 mg 08-28 05-30 MD,Jamie tablet tablet Coumadin Coumadin 2018- No Shallish Unknown Unknown 2.5 mg 2.5 mg 5-30 05-30 MD,Jamie tablet tablet Coumadin Coumadin 2018- No [...] s syringe s syringe cephALEXin cephALEXin 2019- Yes Benitez Unknown Unknown 500 mg 500 mg 12-08 DPM,Thony capsule capsule doxycycline doxycycline 2018-04- Yes Shallish Unknown Unknown hyclate 100 hyclate 100 001-25 MD,Jamie mg capsule mg capsule clindamycin clindamycin 2018-04- Yes Shallish Unknown Unknown HCl 300 mg HCl 300 mg 001-31 MD,Jamie capsule capsule Vital Signs Vital Name Observation Time Observation Value Comments SYSTOLIC mm[Hg] 2019-03-05 18:09:02 132 mm[Hg] mm[Hg] Method: Sit SYSTOLIC mm[Hg] 2018-01-23 18:02:16 122 mm[Hg] mm[Hg] Method: Stand DIASTOLIC mm[Hg] 2019-03-05 18:09:02 68 mm[Hg] mm[Hg] Method: Sit DIASTOLIC mm[Hg] 2018-01-23 18:02:16 60 mm[Hg] mm[Hg] Method: Stand PULSE 2019-03-05 18:09:02 64 /min /min RESP RATE 2019-03-05 18:09:02 16 /min /min TEMP 2019-03-05 18:09:02 97.8 [degF] Procedures This patient has no known procedures. Results This patient has no known results.
--- OUTSIDE RECORDS SUMMARY | 2019-04-11 14:41 | XMS REPORT ---
:1940 Author Organization [facility] Care Team Providers Name Role Phone Unavailable Unavailable Unavailable Problems Condition Condition Condition Status Onset Resolution Last Treating Comments Name Details Category Date Date Treatment Clinician Date Pain frequent Pain Mgmt Resolve 2017-042018-05-08 Roselyn pain d 0-10 08:50:00 (Radha) 11:15: Weller 00 [id number] Cardio edema Cardiovasc Resolve 2017-042018-02-20 Roselyn ular d 0-10 09:50:00 (Radha) 11:15: Weller 00 [id number] Respiratory dyspnea Respirator Resolve 2017-042018-02-15 Roselyn present y d 0-10 10:20:00 (Radha) 11:15: Weller 00 [id number] Endo/Edgard glucose Endo/Edgard Resolve 2017-042018-03-20 Roselyn testing d 0-10 12:30:00 (Radha) dependence 11:15: Weller 00 [id number] Endo/Edgard knowledge/s Endo/Edgard Resolve 2017-042018-03-06 Roselyn kill d 0-10 09:30:00 (Radha) deficit: pt 11:15: Weller 00 [id number] Endo/Edgard anti-coagul Endo/Edgard Resolve 2017-042018-03-20 Roselyn ation d 0-10 12:30:00 (Radha) therapy 11:15: Weller 00 [id number] Endo/Edgard diabetic Endo/Edgard Resolve 2017-042018-03-06 Roselyn foot care d 0-10 09:30:00 (Radha) 11:15: Weller 00 [id number] Sensory impaired Sensory Resolve 2017-042018-03-22 Roselyn hearing d 0-10 09:55:00 (Radha) 11:15: Weller 00 [id number] Integument pressure Integument Resolve 2017-042018-08-21 Roselyn ulcer d 0-10 12:45:00 (Radha) present 11:15: Weller [id number] Integument skin Integument Resolve 2017-042018-03-03 Roselyn integrity d 0-10 09:19:00 (Radha) risk 11:15: Weller [id number] Integument surgical Integument Resolve 2017-042018-03-03 Quality wound d 0-10 09:19:00 Realtime7 present 11:15: 00 Integument other wound Integument Resolve 2017-042018-03-03 Quality present d 0-10 09:19:00 Realtime7 11:15: 00 Elimination urinary Eliminatio Resolve 2017-042018-03-20 Roselyn incontinenc n d 0-10 12:30:00 (Radha) e 11:15: Weller [id number] Neuro confusion Neuro/Emot Resolve 2017-042018-03-22 Roselyn present ion d 0-10 09:55:00 (Radha) 11:15: Weller [id number] Neuro anxiety Neuro/Emot Resolve 2017-042018-03-22 Roselyn present ion d 0-10 09:55:00 (Radha) 11:15: Weller [id number] Neuro impaired Neuro/Emot Resolve 2017-042018-03-22 Roselyn decision-ma ion d 0-10 09:55:00 (Radha) pj 11:15: Weller [id number] Activity ADL Activity Resolve 2017-042018-03-22 Roselyn assistance d 0-10 09:55:00 (Radha) required 11:15: [id number] Safety structural Safety Resolve 2017-042018-03-22 Roselyn barriers d 0-10 09:55:00 (Radha) present 11:15: Weller [id number] Safety fall risk Safety Resolve 2017-042018-03-22 Roselyn factor d 0-10 09:55:00 (Radha) present 11:15: Weller [id number] Safety risk for Safety Resolve 2017-042018-03-22 Roselyn hospitaliza d 0-10 09:55:00 (Radha) tion 11:15: Weller [id number] Safety can be left Safety Resolve 2017-042018-03-22 Roselyn alone for d 0-10 09:55:00 (Radha) only short 11:15: Weller 00 [id number] Medication oral med Meds Resolve 2017-042018-02-06 Roselyn assistance d 0-10 09:15:00 (Radha) required 11:15: Weller [id number] Medication injectable Meds Resolve 2017-042018-02-06 Roselyn med d 0-10 09:15:00 (Radha) assistance 11:15: Weller required 00 [id number] Medication knowledge/s Meds Resolve 2017-042018-02-15 Roselyn kill d 0-10 10:20:00 (Radha) deficit: pt 11:15: Weller 00 [id number] Medication potential Meds Resolve 2017-042018-02-15 Roselyn clinically d 0-10 10:20:00 (Radha) significant 11:15: Weller medication 00 [id number] issue Musculoskel transfer Musculoske Resolve 2017-042018-03-20 Roselyn etal assistance letal d 0-10 12:30:00 (Radha) required 11:15: Weller [id number] Musculoskel requires Musculoske Resolve 2017-042018-03-20 Roselyn etal human letal d 0-10 12:30:00 (Radha) assist to 11:15: Weller leave home 00 [id number] Safety knowledge/s Safety Resolve 2017-042018-03-22 Laura kill d 0-12 09:55:00 Jean-Claude deficit: pt 10:00: [id number] 00 Respiratory knowledge/s Respirator Resolve 2017-042018-02-06 Laura kill y d 0-15 09:15:00 Jean-Claude deficit: cg 10:00: [id number] 00 Respiratory lung sounds Respirator Resolve 2017-042018-02-06 Laura deficit y d 0-15 09:15:00 [place] 10:00: [id number] 00 Sensory impaired Sensory Resolve 2017-042018-03-22 Quality verbal d 0-17 09:55:00 Realtime7 communicati 18:36: on 42 Musculoskel knowledge/s Musculoske Resolve 2017-042018-03-03 Laura etal kill letal d 0-24 09:19:00 Jean-Claude deficit: cg 09:45: [id number] 00 Nutrition knowledge/s Nutrition Resolve 2017-042018-03-03 Laura kill d 0-26 09:19:00 [place] deficit: pt 09:15: [id number] 00 Nutrition nutritional Nutrition Resolve 2017-042018-03-03 Laura restriction d 09:19:00 [place] s 09:15: [id number] 00 Elimination catheter Eliminatio Resolve 2017-042018-03-20 Laura present n d 0 12:30:00 Jean-Claude 09:15: [id number] 00 Elimination constipatio Eliminatio Resolve 2017-042018-03-20 Laura n n d 0 12:30:00 [place] 09:15: [id number] 00 Infection s/s of Infection Resolve 2017-042018-03-22 Laura infection d 0 09:55:00 Jean-Claude 09:30: [id number] 00 Endo/Edgard insulin Endo/Edgard Resolve 2017-042018-03-20 Laura admn d 04-22 12:30:00 Jean-Claude dependence 09:50: [id number] 00 Respiratory dyspnea Respirator Resolve 2017-042018-03-08 Laura present y d 04-24 09:20:00 Jean-Claude 10:07: [id number] 00 Safety cannot be Safety Resolve 2017-042018-03-22 Laura left alone d 04-24 09:55:00 Jean-Claude 10:07: [id number] 00 Cardio edema Cardiovasc Resolve 2017-042018-03-03 Laura ular d 04-26 09:19:00 Jean-Claude 09:51: [id number] 00 Respiratory Incentive Respirator Resolve 2017-042018-03-03 Laura Spirometer y d 04-26 09:19:00 Jean-Claude /Acapella 09:51: [id number] Device 00 treatments in home Endo/Edgard knowledge/s Endo/Edgard Resolve 2017-042018-03-20 Laura kill d 05-08 12:30:00 [place] deficit: pt 09:20: [id number] 00 Nutrition knowledge/s Nutrition Resolve 2017-042018-04-19 Laura kill d 05-08 09:45:00 Jean-Claude deficit: pt 09:20: [id number] 00 Nutrition nutritional Nutrition Resolve 2017-042018-04-19 Laura restriction d 05-08 09:45:00 Jean-Claude s 09:20: [id number] 00 Endo/Edgard diabetic Endo/Edgard Resolve 2017-042018-03-20 Laura foot care d 2- 12:30:00 Jean-Claude 09:20: [id number] 00 Pain frequent Pain Mgmt Unknown 2017-04 Laura pain 2- [place] 12:45: [id number] 00 Respiratory dyspnea Respirator Resolve 2017-042018-03-20 Laura present y d 2 12:30:00 [place] 12:45: [id number] 00 Integument pressure Integument Unknown 2017-04 Laura ulcer 2- Jean-Claude present 12:45: [id number] 00 Integument surgical Integument Resolve 2017-042018-03-24 Laura wound d 2 11:23:00 Jean-Claude present 12:45: [id number] 00 Endo/Edgard diabetic Endo/Edgard Resolve 2017-042018-03-24 Laura foot care d 05-23 11:23:00 Jean-Claude 09:55: [id number] 00 Elimination catheter Eliminatio Resolve 2017-042018-04-19 Laura present n d 05-23 09:45:00 Jean-Claude 09:55: [id number] 00 Safety risk for Safety Resolve 2017-042018-04-19 Laura hospitaliza d 2 09:45:00 Jean-Claude tion 11:23: [id number] 00 Safety can be left Safety Resolve 2017-042018-04-19 Laura alone for d 2- 09:45:00 Jean-Claude only short 11:23: [id number] periods 00 Musculoskel knowledge/s Musculoske Resolve 2017-042018-03-29 Laura etal kill letal d - 09:30:00 Jean-Claude deficit: cg 10:20: [id number] 00 Musculoskel requires Musculoske Resolve 2017-042018-04-12 Laura etal human letal d 2- 09:45:00 Jean-Claude assist to 10:20: [id number] leave home 00 Endo/Edgard diabetic Endo/Edgard Resolve 2017-042018-04-19 Laura foot care d 2- 09:45:00 Jean-Claude 09:30: [id number] 00 Elimination constipatio Eliminatio Resolve 2017-042018-04-12 Laura n n d 05-30 09:45:00 [place] 09:30: [id number] 00 Pain frequent Pain Mgmt Unknown 2017-04 Laura pain 06-06 Jean-Claude 09:45: [id number] 00 Endo/Edgard insulin Endo/Edgard Resolve 2017-042018-04-19 Laura admn d 06-06 09:45:00 [place] dependence 09:45: [id number] 00 Endo/Edgard anti-coagul Endo/Edgard Resolve 2017-042018-04-19 Laura ation d 06-06 09:45:00 [place] therapy 09:45: [id number] 00 Integument surgical Integument Resolve 2017-042018-04-05 Laura wound d 06-06 09:45:00 [place] present 09:45: [id number] 00 Integument skin Integument Resolve 2017-042018-04-05 Laura integrity d 06-06 09:45:00 Jean-Claude risk 09:45: [id number] 00 Integument pressure Integument Unknown 2017-04 Laura ulcer 06-06 Jean-Claude present 09:45: [id number] 00 Elimination UTI within Eliminatio Resolve 2017-042018-04-12 Laura past 14 n d 06-06 09:45:00 Jean-Claude days 09:45: [id number] 00 Activity ADL Activity Resolve 2017-042018-09-15 Laura assistance d 06-06 10:35:00 Jean-Claude required 09:45: [id number] 00 Safety fall risk Safety Resolve 2017-042018-04-19 Laura factor d 06-06 09:45:00 Jean-Claude present 09:45: [id number] 00 Medication potential Meds Resolve 2017-042018-04-19 Laura clinically d 06-06 09:45:00 Jean-Claude significant 09:45: [id number] medication 00 issue Medication oral med Meds Resolve 2017-042018-04-05 Shari assistance d 06-06 09:45:00 Regeczi required 09:45: [id number] 00 Medication injectable Meds Resolve 2017-042018-08-09 Shari med d 06-06 09:20:00 Regeczi assistance 09:45: [id number] required 00 Musculoskel transfer Musculoske Resolve 2017-042018-04-12 Shari etal assistance letal d 06-06 09:45:00 [place] required 09:45: [id number] 00 Medication oral med Meds Resolve 2017-042018-04-19 Laura assistance d 06-08 09:45:00 Jean-Claude required 10:00: [id number] 00 Medication injectable Meds Unknown 2017-04 Laura med 06-08 [place] assistance 10:00: [id number] required 00 Sensory impaired Sensory Resolve 2017-042018-04-19 Nima verbal d 06-08 09:45:00 [place] communicati 15:20: [id number] on 00 Sensory impaired Sensory Resolve 2017-042018-04-19 Nima hearing d 06-08 09:45:00 [place] 15:20: [id number] 00 Medication injectable Meds Unknown 2017-04 Nhung med Pérez assistance 14:56: [id number] required 00 Medication injectable Meds Unknown Nima med 04-13 [place] assistance 13:50: [id number] required 00 Elimination constipatio Eliminatio Resolve 2018-04-19 Laura n n d 04-14 09:45:00 Jean-Claude 09:28: [id number] 00 Medication injectable Meds Unknown Laura med 04-17 [place] assistance 10:00: [id number] required 00 Medication injectable Meds Resolve 2018-04-19 Laura med d 04-19 09:45:00 [place] assistance 09:45: [id number] required 00 Endo/Edgard anti-coagul Endo/Edgard Resolve 2018-04-26 Laura ation d 04-21 10:15:00 Jean-Claude therapy 09:45: [id number] 00 Nutrition knowledge/s Nutrition Resolve 2018-04-26 Laura kill d 04-21 10:15:00 [place] deficit: pt 09:45: [id number] 00 Nutrition nutritional Nutrition Resolve 2018-04-26 Laura restriction d 04-21 10:15:00 Jean-Claude s 09:45: [id number] 00 Elimination catheter Eliminatio Resolve 2018-04-26 Laura present n d 04-21 10:15:00 Jean-Claude 09:45: [id number] 00 Elimination constipatio Eliminatio Resolve 2018-04-26 Laura n n d 04-21 10:15:00 Jean-Claude 09:45: [id number] 00 Safety risk for Safety Resolve 2018-04-26 Laura hospitaliza d 1-11 10:15:00 Jean-Claude tion 09:45: [id number] 00 Safety can be left Safety Resolve 2018-04-26 Laura alone for d 1-11 10:15:00 Jean-Claude only short 09:45: [id number] periods 00 Sensory impaired Sensory Resolve 2018-04-26 Nima verbal d 1-11 10:15:00 [place] communicati 14:30: [id number] on 00 Sensory impaired Sensory Resolve 2018-04-26 Nima hearing d 1-11 10:15:00 [place] 14:30: [id number] 00 Sensory impaired Sensory Resolve 2018-04-28 Nima verbal d 1-17 10:20:00 [place] communicati 12:45: [id number] on 00 Sensory impaired Sensory Resolve 2018-04-28 Nima hearing d 1-17 10:20:00 [place] 12:45: [id number] 00 Endo/Edgard anti-coagul Endo/Edgard Resolve 2018-05-24 Laura ation d 1-18 12:30:00 Jean-Claude therapy 10:20: [id number] 00 Safety risk for Safety Active Laura hospitaliza - [place] tion 10:20: [id number] 00 Safety can be left Safety Resolve 2018-05-10 Laura alone for d 1- 13:45:00 eJan-Claude only short 10:10: [id number] Sensory impaired Sensory Resolve 2018-05-10 Jia hearing d 05-05 13:45:00 [place] 13:30: t 00 [id number] Sensory impaired Sensory Resolve 2018-05-10 Jia verbal d 1 13:45:00 [place] communicati 13:30: t on 00 [id number] Elimination catheter Eliminatio Resolve 2018-05-08 Wandy present n d 05-08 08:50:00 ,Kaylee 08:50: 00 Elimination constipatio Eliminatio Resolve 2018-06-28 Wandy n n d 05-08 09:45:00 ,Kaylee 08:50: 00 Safety cannot be Safety Resolve 2018-05-10 Laura left alone d 1- 13:45:00 [place] 08:50: [id number] 00 Elimination catheter Eliminatio Resolve 2018-05-12 Shari present n d 2- 09:30:00 Regeczi 09:30: [id number] 00 Safety can be left Safety Resolve 2018-05-17 Laura alone for d - 10:00:00 Jean-Claude only short 09:30: [id number] periods 00 Elimination urinary Eliminatio Resolve 2018-05-15 Laura incontinenc n d 05-15 08:45:00 [place] e 08:45: [id number] 00 Pain frequent Pain Mgmt Resolve 2018-05-17 Laura pain d 2-06 10:00:00 [place] 10:00: [id number] 00 Respiratory lung sounds Respirator Resolve 2018-05-22 Laura deficit y d 2-06 10:44:00 Jean-Claude 10:00: [id number] 00 Integument pressure Integument Unknown Laura ulcer 2-06 Jean-Claude present 10:00: [id number] 00 Integument skin Integument Resolve 2018-05-17 Laura integrity d 2-06 10:00:00 [place] risk 10:00: [id number] 00 Integument surgical Integument Resolve 2018-05-17 Laura wound d 2-06 10:00:00 Jean-Claude present 10:00: [id number] 00 Activity ADL Activity Unknown 2018- Laura assistance 2-06 [place] required 10:00: [id number] 00 Activity self-care Activity Resolve 2018-05-19 Laura deficit d 2-06 11:15:00 Jean-Claude 10:00: [id number] 00 Safety fall risk Safety Resolve 2018-05-19 Laura factor d 2-06 11:15:00 [place] present 10:00: [id number] 00 Elimination urinary Eliminatio Resolve 2018-05-24 [place] incontinenc n d 2- 12:30:00 Kaylee 11:15: 00 Safety can be left Safety Resolve 2018-05-24 Laura alone for d 2-08 12:30:00 Jean-Claude only short 11:15: [id number] periods 00 Safety fall risk Safety Resolve 2018-05-24 Sonia White factor d 2-12 12:30:00 present 09:48: 41 Endo/Edgard glucose Endo/Edgard Resolve 2018-05-24 Laura tolerance d 2-13 12:30:00 [place] problem 12:30: [id number] 00 Respiratory Incentive Respirator Resolve 2018-06-07 Laura Spirometer y d 2-15 12:00:00 Jean-Claude /Acapella 13:40: [id number] Device 00 treatments in home Endo/Edgard anti-coagul Endo/Edgard Resolve 2018-06-12 Laura ation d 2-15 09:30:00 Jean-Claude therapy 13:40: [id number] 00 Elimination urinary Eliminatio Resolve 2018-05-26 Laura incontinenc n d 2-15 13:40:00 Jean-Claude e 13:40: [id number] 00 Safety can be left Safety Resolve 2018-06-07 Laura alone for d 2-15 12:00:00 Jean-Claude only short 13:40: [id number] periods 00 Endo/Edgard glucose Endo/Edgard Resolve 2018-06-07 Cherrise tolerance d 2-22 12:00:00 [place] problem 10:15: [id number] 00 Endo/Edgard insulin Endo/Edgard Resolve 2018-06-12 Cherrise admn d 2-22 09:30:00 [place] dependence 10:15: [id number] 00 Endo/Edgard glucose Endo/Edgard Resolve 2018-06-12 Cherrise testing d 2- 09:30:00 Trixie dependence 10:15: [id number] 00 Safety fall risk Safety Resolve 2018-06-07 Cherrise factor d 2-22 12:00:00 [place] present 10:15: [id number] 00 Musculoskel transfer Musculoske Active Cherrise etal assistance letal 06-02 Trixie required 10:15: [id number] 00 Musculoskel requires Musculoske Active Cherrise etal human letal 2 [place] assist to 10:15: [id number] leave home 00 Elimination urinary Eliminatio Resolve 2018-06-07 Laura incontinenc n d 06-05 12:00:00 Jean-Claude e 12:30: [id number] 00 Activity self-care Activity Resolve 2018-08-14 Laura deficit d 06-05 12:10:00 [place] 12:30: [id number] 00 Elimination urinary Eliminatio Resolve 2018-06-12 Laura incontinenc n d 06-09 09:30:00 Jean-Claude e 09:13: [id number] 00 Safety can be left Safety Resolve 2018-06-12 Laura alone for d 06-09 09:30:00 Jean-Claude only short 09:13: [id number] periods 00 Respiratory Incentive Respirator Resolve 2018-06-14 Laura Spirometer y d 06-12 09:30:00 Jean-Claude /Acapemiguel 09:30: [id number] Device 00 treatments in home Endo/Edgard anti-coagul Endo/Edgard Resolve 2018-06-30 Laura ation d 06-14 09:19:00 Jean-Claude therapy 09:30: [id number] 00 Safety can be left Safety Resolve 2018-06-30 Laura alone for d 06-14 09:19:00 Jean-Calude alejo 09:30: [id number] periods 00 Elimination urinary Eliminatio Resolve 2018-06-19 Laura incontinenc n d 06-16 13:45:00 Jean-Claude e 09:45: [id number] 00 Elimination urinary Eliminatio Resolve 2018-06-28 Laura incontinenc n d 06-23 09:45:00 Jean-Claude e 13:15: [id number] 00 Elimination constipatio Eliminatio Resolve 2018-07-14 Laura n n d 06-30 09:20:00 [place] 09:19: [id number] 00 Endo/Edgard anti-coagul Endo/Edgard Resolve 2018-07-14 Laura ation d 07-03 09:20:00 Jean-Claude therapy 12:49: [id number] 00 Elimination urinary Eliminatio Resolve 2018-07-14 Laura incontinenc n d 07-03 09:20:00 [place] e 12:49: [id number] 00 Safety can be left Safety Resolve 2018-08-18 Laura alone for d 07-07 12:05:00 Jean-Claude only short 12:50: [id number] periods 00 Endo/Edgard glucose Endo/Edgard Resolve 2018-07-14 Shi testing d 07-10 09:20:00 Sorin, dependence 12:30: [id number] 00 Pain frequent Pain Mgmt Resolve 2018-07-14 Laura pain d 07-14 09:20:00 Jean-Claude 09:20: [id number] 00 Integument surgical Integument Resolve 2018-08-13 Laura wound d 07-14 12:50:00 Jean-Claude present 09:20: [id number] 00 Integument skin Integument Resolve 2018-08-13 Laura integrity d 07-14 12:50:00 [place] risk 09:20: [id number] 00 Safety fall risk Safety Resolve 2018-08-18 Laura factor d 07-14 12:05:00 [place] present 09:20: [id number] 00 Endo/Edgard anti-coagul Endo/Edgard Resolve 2018-08-14 Laura ation d 07-17 12:10:00 Jean-Claude therapy 13:00: [id number] 00 Elimination urinary Eliminatio Resolve 2018-07-21 Laura incontinenc n d 07-17 09:25:00 Jean-Claude e 13:00: [id number] 00 Activity ADL Activity Unknown Laura assistance 07-17 [place] required 13:00: [id number] 00 Elimination urinary Eliminatio Resolve 2018-08-14 Laura incontinenc n d 07-24 12:10:00 [place] e 09:27: [id number] 00 Pain frequent Pain Mgmt Resolve 2018 Laura pain d 08-07 09:20:00 Jean-Claude 12:45: [id number] 00 Cardio edema Cardiovasc Resolve 2018 Laura ular d 08-07 09:20:00 Jean-Claude 12:45: [id number] 00 Respiratory dyspnea Respirator Resolve 2018 Laura present y d 08-07 09:20:00 Jean-Claude 12:45: [id number] 00 Endo/Edgard diabetic Endo/Edgard Resolve 2018-08-14 Laura foot care d 08-07 12:10:00 Jean-Claude 12:45: [id number] 00 Nutrition knowledge/s Nutrition Active Laura kill 08-07 Jean-Claude deficit: pt 12:45: [id number] 00 Nutrition nutritional Nutrition Active Laura restriction 08-07 Jean-Claude s 12:45: [id number] 00 Neuro confusion Neuro/Emot Resolve 2018-08-14 Laura present ion d 08-07 12:10:00 Jean-Claude 12:45: [id number] 00 Medication oral med Meds Resolve 2018 Laura assistance d 08-07 09:20:00 [place] required 12:45: [id number] 00 Medication injectable Meds Resolve 2018 Jia med d 08-07 09:20:00 Jerardo assistance 12:45: [id number] required 00 Cardio edema Cardiovasc Resolve 2018-08-23 Laura ular d 08-13 11:15:00 Jean-Claude 12:50: [id number] 00 Respiratory dyspnea Respirator Resolve 2018-08-14 Laura present y d 08-13 12:10:00 Jean-Claude 12:50: [id number] 00 Endo/Edgard anti-coagul Endo/Edgard Resolve 2018-08-28 Laura ation d 08-16 12:00:00 Jean-Claude therapy 12:15: [id number] 00 Elimination urinary Eliminatio Resolve 2018-08-21 Laura incontinenc n d 08-16 12:45:00 Jean-Claude e 12:15: [id number] 00 Sensory impaired Sensory Resolve 2018-08-21 Krystyna verbal d 08-17 12:45:00 [place] communicati 14:30: [id number] on 00 Sensory impaired Sensory Resolve 2018-08-21 Krystyna hearing d 08-17 12:45:00 [place] 14:30: [id number] 00 Social financial LILLIAN: Resolve 2019-02-16 Krystyna Services resource Social d 08-17 13:45:00 [place] deficit Services 14:30: [id number] 00 Social knowledge/s LILLIAN: Resolve 2018-08-17 Krystyna Services kill Social d 08-17 14:30:00 [place] deficit - Services 14:30: [id number] pt 00 Social knowledge/s LILLIAN: Resolve 2018-08-17 Krystyna Services kill Social d 08-17 14:30:00 [place] deficit - Services 14:30: [id number] cg 00 Safety can be left Safety Resolve 2018-09-07 Laura alone for d 5-15 10:00:00 Jean-Claude cruz short 11:15: [id number] periods 00 Social knowledge/s LILLIAN: Active Laura Services kill Social 08-23 [place] deficit - Services 11:15: [id number] pt 00 Elimination urinary Eliminatio Resolve 2018-09-07 Laura incontinenc n d 08-25 10:00:00 Jean-Claude e 11:45: [id number] 00 Sensory impaired Sensory Resolve 2018-09-07 Krystyna verbal d 09-01 10:00:[facility] 14[facility]45: [id number] on 00 Sensory impaired Sensory Resolve 2018-09-07 Krystyna hearing d 09-01 10:00:00 [facility] 14:45: [id number] 00 Social knowledge/s LILLIAN: Active Krystyna Services kill Social 09-01 [place] deficit - Services 14:45: [id number] cg 00 Respiratory dyspnea Respirator Resolve 2018-09-15 Laura present y d 09-07 10:35:00 Jean-Claude 10:00: [id number] 00 Pain frequent Pain Mgmt Resolve 2018-09-11 Laura pain d 09-11 11:50:00 Jean-Claude 11:50: [id number] 00 Cardio hypertensio Cardiovasc Resolve 2018-09-11 Laura n ular d 09-11 11:50:00 Jean-Claude 11:50: [id number] 00 Integument pressure Integument Resolve 2018-09-15 Laura ulcer d 6 10:35:00 Jean-Claude present 11:50: [id number] 00 Integument surgical Integument Resolve 2018-09-15 Laura wound d 6-03 10:35:00 [place] present 11:50: [id number] 00 Integument skin Integument Resolve 2018-09-15 Laura integrity d 09-11 10:35:00 [place] risk 11:50: [id number] 00 Elimination urinary Eliminatio Resolve 2018-09-11 Laura incontinenc n d 09-11 11:50:00 Jean-Claude e 11:50: [id number] 00 Activity ADL Activity Unknown Laura assistance 09-11 [place] required 11:50: [id number] 00 Activity self-care Activity Resolve 2018-09-15 Laura deficit d 09-11 10:35:00 Jean-Claude 11:50: [id number] 00 Safety fall risk Safety Resolve 2018-09-15 Laura factor d 09-11 10:35:00 [place] present 11:50: [id number] 00 Safety can be left Safety Resolve 2018-09-15 Laura alone for d 09-11 10:35:00 Jean-Claude only short 11:50: [id number] periods 00 Endo/Edgard anti-coagul Endo/Edgard Resolve 2018-09-18 Laura ation d 09-15 12:20:00 [place] therapy 10:35: [id number] 00 Elimination urinary Eliminatio Resolve 2018-09-18 Laura incontinenc n d 09-15 12:20:00 Jean-Claude e 10:35: [id number] 00 Elimination constipatio Eliminatio Resolve 2018-09-18 Laura n n d 09-15 12:20:00 Jean-Claude 10:35: [id number] 00 Safety can be left Safety Resolve 2018-09-25 Laura alone for d 610 11:45:00 Jean-Claude only short 12:20: [id number] periods 00 Cardio hypertensio Cardiovasc Resolve 2018-09-21 Laura n ular d 09-21 11:45:00 Jean-Claude 11:45: [id number] 00 Endo/Edgard anti-coagul Endo/Edgard Resolve 2018-09-25 Laura ation d 09-21 11:45:00 Jean-Claude therapy 11:45: [id number] 00 Cardio hypertensio Cardiovasc Resolve 2018-10-02 Laura n ular d 6- 12:05:00 Jean-Claude 11:45: [id number] 00 Elimination urinary Eliminatio Resolve 2018-10-02 Laura incontinenc n d 6 12:05:00 Jean-Claude e 11:45: [id number] 00 Endo/Edgard anti-coagul Endo/Edgard Resolve 2018-10-02 Laura ation d 09-29 12:05:00 [place] therapy 09:45: [id number] 00 Safety can be left Safety Resolve 2018-10-02 Laura alone for d 09-29 12:05:00 Jean-Claude only short 09:45: [id number] 00 Endo/Edgard anti-coagul Endo/Edgard Resolve 2018-10-27 Laura ation d 10-04 11:30:00 [place] therapy 10:10: [id number] 00 Elimination urinary Eliminatio Resolve 2018-10-06 Laura incontinenc n d 10-04 09:10:00 Jean-Claude e 10:10: [id number] 00 Elimination constipatio Eliminatio Resolve 2018-10-06 Laura n n d 10-04 09:10:00 Jean-Claude 10:10: [id number] 00 Safety can be left Safety Resolve 2018-10-06 Laura alone for d 10-04 09:10:00 Jean-Claude only short 10:10: [id number] Sensory impaired Sensory Resolve 2018-10-23 Krystnya verbal d 10-05 11:56:00 [place] communicati 15:00: [id number] on 00 Sensory impaired Sensory Resolve 2018-10-23 Krystyna hearing d 10-05 11:56:00 [place] 15:00: [id number] 00 Elimination urinary Eliminatio Resolve 2018-10-27 Laura incontinenc n d 10-09 11:30:00 Jean-Claude butler 12:15: [id number] 00 Elimination bloody Eliminatio Resolve 2018-10-27 Laura urine n d 10-09 11:30:00 Jean-Claude 12:15: [id number] 00 Safety can be left Safety Resolve 2018-10-23 Laura alone for d 10-09 11:56:00 Jean-Claude only short 12:15: [id number] periods Elimination constipatio Eliminatio Resolve 2018-12-08 Laura n n d 10-16 14:00:00 Jean-Claude 12:35: [id number] 00 Cardio edema Cardiovasc Resolve 2018-10-27 Laura ular d 10-20 11:30:00 Jean-Claude 11:35: [id number] 00 Endo/Edgard knowledge/s Endo/Edgard Resolve 2018-10-27 Laura kill d 10-20 11:30:00 Jean-Claude deficit: pt 11:35: [id number] 00 Sensory impaired Sensory Unknown Jonatan verbal 7-15 Demarco, communicati 13:30: PT on [id number] Sensory impaired Sensory Unknown Jonatan hearing 15 Demarco, 13:30: PT [id number] Safety can be left Safety Resolve 2018-10-27 Laura alone for d 10-25 11:30:00 Jean-Claude cruz short 10:35: [id number] 00 Endo/Edgard glucose Endo/Edgard Resolve 2018-12-11 Cherrise tolerance d 10-30 09:30:00 [place] problem 11:55: [id number] 00 Endo/Edgard insulin Endo/Edgard Resolve 2018-12-13 Cherrise admn d 10-30 11:10:00 Trixie dependence 11:55: [id number] 00 Endo/Edgard glucose Endo/Edgard Resolve 2018-12-13 Cherrise testing d 10-30 11:10:00 [place] dependence 11:55: [id number] 00 Endo/Edgard knowledge/s Endo/Edgard Resolve 2018-12-08 Cherrise kill d 10-30 14:00:00 Trixie deficit: pt 11:55: [id number] 00 Elimination urinary Eliminatio Resolve 2018-12-08 Cherrise urgency n d 10-30 14:00:00 [place] 11:55: [id number] 00 Neuro depressive Neuro/Emot Resolve 2018-12-08 Cherrise feelings ion d 10-30 14:00:00 Trixie present 11:55: [id number] 00 Neuro impaired Neuro/Emot Resolve 2018-12-08 Cherrise decision-ma ion d 10-30 14:00:00 [place] pj 11:55: [id number] 00 Safety fall risk Safety Resolve 2018-12-06 Cherrise factor d 10-30 13:05:00 [place] present 11:55: [id number] 00 Endo/Edgard anti-coagul Endo/Edgard Resolve 2018-12-13 Shi ation d 11-01 11:10:00 Sorin, therapy 12:30: [id number] 00 Respiratory Incentive Respirator Resolve 2018-11-29 Cherrise Spirometer y d 11-03 10:15:00 [place] /[place] 10:25: [id number] Device 00 treatments in home Elimination urinary Eliminatio Resolve 2018-12-08 Cherrise frequency n d 11-03 14:00:00 [place] 10:25: [id number] 00 Respiratory lung sounds Respirator Resolve 2018-11-29 Cherrise deficit y d 11-06 10:15:00 Trixie 12:05: [id number] 00 Neuro memory Neuro/Emot Resolve 2018-12-08 Cherrise deficit ion d 11-08 14:00:00 Trixie needing 10:30: [id number] supervision 00 Pain frequent Pain Mgmt Resolve 2018-12-06 Shi pain d 11-10 13:05:00 Sorin, 11:00: [id number] 00 Integument pressure Integument Active Shi ulcer 11-10 Sorin, present 11:00: [id number] 00 Integument surgical Integument Active 2018- Shi wound 11-10 Sorin, present 11:00: [id number] 00 Integument skin Integument Active 2018- Shi integrity 11-10 Sorin, risk 11:00: [id number] 00 Elimination urinary Eliminatio Resolve 2018-12-08 Shi incontinenc n d 11-10 14:00:00 Sorin, e 11:00: [id number] 00 Activity self-care Activity Resolve 2018-11-29 Shi deficit d 11-10 10:15:00 Sorin, 11:00: [id number] 00 Activity ADL Activity Resolve 2018-12-08 Shi assistance d 11-10 14:00:00 Sorin, required 11:00: [id number] 00 Pain knowledge/s Pain Mgmt Resolve 2018-12-06 Krystyna kill d 11-16 13:05:00 [place] deficit: cg 15:15: [id number] 00 Respiratory knowledge/s Respirator Resolve 2018-11-29 Krystyna kill y d 11-16 10:15:00 [place] deficit: cg 15:15: [id number] 00 Integument knowledge/s Integument Active Krystyna kill 11-16 [place] deficit: cg 15:15: [id number] 00 Elimination knowledge/s Eliminatio Resolve 2018-12-08 Krystyna kill n d 11-16 14:00:00 [place] deficit: cg 15:15: [id number] 00 Safety knowledge/s Safety Resolve 2018-12-06 Krystyna kill d 11-16 13:05:00 [place] deficit: cg 15:15: [id number] 00 Cardio hypertensio Cardiovasc Resolve 2018-11-29 Lenny jarvis joseph d 11-17 10:15:00 [place] 10:45: [id number] 00 Safety can be left Safety Resolve 2018-12-08 Shi alone for d 11-22 14:00:00 nancy Rowell short 11:00: [id number] periods 00 Sensory impaired Sensory Resolve 2018-12-08 Laura verbal d 11-24 14:00:00 Jean-Claude communicati 09:30: [id number] on 00 Sensory impaired Sensory Resolve 2018-12-08 Laura hearing d 11-24 14:00:00 Jean-Claude 09:30: [id number] 00 Respiratory knowledge/s Respirator Resolve 2018-12-08 Laura kill y d 12-01 14:00:00 Jean-Claude deficit: cg 09:30: [id number] 00 Sensory impaired Sensory Unknown Krystyna verbal 8 [place] communicati 15:00: [id number] on 00 Sensory impaired Sensory Unknown Krystyna hearing 12-08 [place] 15:00: [id number] 00 Respiratory knowledge/s Respirator Resolve 2018-12-13 Laura kill y d 12-11 11:10:00 Jean-Claude deficit: cg 09:30: [id number] 00 Endo/Edgard knowledge/s Endo/Edgard Resolve 2018-12-13 Laura kill d 12-11 11:10:00 [place] deficit: pt 09:30: [id number] 00 Elimination urinary Eliminatio Resolve 2018-12-15 Laura incontinenc n d 12-11 13:10:00 Jean-Claude e 09:30: [id number] 00 Safety can be left Safety Resolve 2018-12-15 Laura alone for d 12-11 13:10:00 Jean-Claude only short 09:30: [id number] 00 Endo/Edgard knowledge/s Endo/Edgard Resolve 2019-01-05 Laura kill d 12-15 11:00:00 Jean-Claude deficit: pt 13:10: [id number] 00 Endo/Edgard anti-coagul Endo/Edgard Resolve 2019-01-05 Laura ation d 12-15 11:00:00 Jean-Claude therapy 13:10: [id number] 00 Elimination urinary Eliminatio Resolve 2018-12-27 Laura incontinenc n d 12-18 09:20:00 Jean-Claude e 12:10: [id number] 00 Safety can be left Safety Resolve 2019-01-05 Laura alone for d 12-18 11:00:00 Jean-Claude only short 12:10: [id number] periods 00 Elimination constipatio Eliminatio Resolve 2019-01-05 Laura n n d 12-20 11:00:00 Jean-Claude 12:15: [id number] 00 Pain frequent Pain Mgmt Resolve 2019-01-15 Laura pain d 12-27 12:30:00 Jean-Claude 09:20: [id number] 00 Respiratory dyspnea Respirator Resolve 2019-01-05 Laura present y d 12-27 11:00:00 Jean-Claude 09:20: [id number] 00 Endo/Edgard diabetic Endo/Edgard Resolve 2019-01-05 Laura foot care d 9 11:00:00 Jean-Claude 09:20: [id number] 00 Elimination diarrhea Eliminatio Resolve 2019-01-05 Laura n d 18 11:00:00 Jean-Claude 09:20: [id number] 00 Neuro confusion Neuro/Emot Resolve 2019-01-05 Laura present ion d 12-27 11:00:00 Jean-Claude 09:20: [id number] 00 Neuro anxiety Neuro/Emot Resolve 2019-01-05 Laura present ion d 12-27 11:00:00 Jean-Claude 09:20: [id number] 00 Activity ADL Activity Resolve 2019-01-05 Laura assistance d 12-27 11:00:00 [place] required 09:20: [id number] 00 Activity self-care Activity Resolve 2019-01-05 Laura deficit d 12-27 11:00:00 Jean-Claude 09:20: [id number] 00 Safety fall risk Safety Resolve 2019-01-05 Laura factor d 12-27 11:00:00 Jean-Claude present 09:20: [id number] 00 Medication potential Meds Resolve 2019-01-05 Laura clinically d 12-27 11:00:00 [place] significant 09:20: [id number] medication 00 issue Elimination urinary Eliminatio Resolve 2019-01-05 Laura incontinenc n d 12-29 11:00:00 Jean-Claude e 11:20: [id number] 00 Endo/Edgard knowledge/s Endo/Edgard Resolve 2019-01-10 Laura kill d 01-08 10:00:00 Jean-Claude deficit: pt 11:30: [id number] 00 Endo/Edgard anti-coagul Endo/Edgard Resolve 2019-01-10 Laura ation d 01-08 10:00:00 Jean-Claude therapy 11:30: [id number] 00 Elimination urinary Eliminatio Resolve 2019-01-15 Laura incontinenc n d 01-08 12:30:00 [place] e 11:30: [id number] 00 Safety can be left Safety Resolve 2019-02-16 Laura alone for d 9-30 12:00:00 Jean-Claude only short 11:30: [id number] periods 00 Respiratory dyspnea Respirator Resolve 2018-042019-01-26 Laura present y d 0-02 10:00:00 Jean-Claude 10:00: [id number] 00 Activity ADL Activity Resolve 2018-042019-01-12 Laura assistance d 0-02 11:30:00 [place] required 10:00: [id number] 00 Activity self-care Activity Resolve 2018-042019-01-12 Laura deficit d 0-02 11:30:00 [place] 10:00: [id number] 00 Safety fall risk Safety Resolve 2018-042019-01-12 Laura factor d 0-02 11:30:00 [place] present 10:00: [id number] 00 Medication injectable Meds Resolve 2018-042019-01-17 Laura med d 0-02 09:45:00 [place] assistance 10:00: [id number] required 00 Endo/Edgard knowledge/s Endo/Edgard Resolve 2018-042019-01-15 Laura kill d 0-04 12:30:00 Jean-Claude deficit: pt 11:30: [id number] 00 Endo/Edgard anti-coagul Endo/Edgard Resolve 2018-042019-01-15 Laura ation d 0-04 12:30:00 [place] therapy 11:30: [id number] 00 Elimination constipatio Eliminatio Resolve 2018-042019-01-15 Laura n n d 0-04 12:30:00 [place] 11:30: [id number] 00 Sensory impaired Sensory Resolve 2018-042019-01-15 Krystyna verbal d 0-04 12:30:00 [place] communicati 15:30: [id number] on 00 Sensory impaired Sensory Resolve 2018-042019-01-15 Krystyna hearing d 0-04 12:30:00 [place] 15:30: [id number] 00 Infection s/s of Infection Active 2018-04 Laura infection 0-07 Jean-Claude 12:30: [id number] 00 Sensory impaired Sensory Resolve 2018-042019-01-22 Jonatan verbal d 0-08 11:00:00 Demarco communicflorentino 13:00: PT on 00 [id number] Sensory impaired Sensory Resolve 2018-042019-01-22 Jonatan hearing d 0-08 11:00:00 Demarco, 13:00: PT 00 [id number] Endo/Edgard knowledge/s Endo/Edgard Resolve 2018-042019-02-07 Laura kill d 0-09 11:20:00 Jean-Claude deficit: pt 09:45: [id number] 00 Endo/Edgard anti-coagul Endo/Edgard Resolve 2018-042019-02-07 Laura ation d 0-09 11:20:00 Jean-Claude therapy 09:45: [id number] 00 Elimination urinary Eliminatio Resolve 2018-042019-02-02 Laura incontinenc n d 0-09 11:30:00 [place] e 09:45: [id number] 00 Elimination constipatio Eliminatio Resolve 2018-042019-02-02 Laura n n d 0-16 11:30:00 Jean-Claude 10:00: [id number] 00 Sensory impaired Sensory Resolve 2018-042019-01-31 Jonatan verbal d 0-17 11:10:00 Demarco, communicati 15:00: PT on 00 [id number] Sensory impaired Sensory Resolve 2018-042019-01-31 Jonatan hearing d 0-17 11:10:00 Demarco, 15:00: PT 00 [id number] Pain frequent Pain Mgmt Resolve 2018-042019-02-16 Jonatan pain d 0-23 12:00:00 Demarco, 13:00: PT 00 [id number] Sensory impaired Sensory Unknown 2018-04 Jonatan verbal 0-23 Demarco, communicati 13:00: PT on 00 [id number] Sensory impaired Sensory Unknown 2018-04 Jonatan hearing 0-23 Demarco, 13:00: PT 00 [id number] Respiratory dyspnea Respirator Resolve 2018-042019-02-07 Laura present y d 0-25 11:20:00 Jean-Claude 11:30: [id number] 00 Elimination urinary Eliminatio Resolve 2018-042019-02-07 Laura incontinenc n d 0-28 11:20:00 Jean-Claude e 12:40: [id number] 00 Endo/Edgard knowledge/s Endo/Edgard Resolve 2018-042019-02-19 Laura kill d 1 12:40:00 Jean-Claude deficit: pt 12:30: [id number] 00 Endo/Edgard anti-coagul Endo/Edgard Resolve 2018-042019-02-19 Laura ation d 04-11 12:40:00 Jean-Claude therapy 12:30: [id number] 00 Elimination urinary Eliminatio Resolve 2018-042019-02-16 Laura incontinenc n d 04-11 12:00:00 Jean-Claude e 12:30: [id number] 00 Medication potential Meds Resolve 2018-042019-02-24 Laura clinically d 04-14 09:45:00 [place] significant 12:20: [id number] medication 00 issue Elimination constipatio Eliminatio Resolve 2018-042019-02-16 Laura n n d 04-16 12:00:00 Jean-Claude 11:20: [id number] 00 Elimination urinary Eliminatio Resolve 2018-042019-02-24 Laura incontinenc n d 04-21 09:45:00 [place] e 12:40: [id number] 00 Safety can be left Safety Resolve 2018-042019-02-24 Laura alone for d 04-21 09:45:00 Jean-Claude only short 12:40: [id number] periods 00 Endo/Edgard knowledge/s Endo/Edgard Resolve 2018-042019-02-24 Laura kill d 04-23 09:45:00 Jean-Claude deficit: pt 12:05: [id number] 00 Endo/Edgard anti-coagul Endo/Edgard Resolve 2018-042019-02-24 Laura ation d 04-23 09:45:00 [place] therapy 12:05: [id number] 00 Sensory impaired Sensory Resolve 2018-042019-02-26 Laura verbal d 04-26 13:20:00 Jean-Claude communicati 09:45: [id number] on 00 Sensory impaired Sensory Resolve 2018-042019-02-26 Laura hearing d 04-26 13:20:00 Jean-Claude 09:45: [id number] 00 Endo/Edgard knowledge/s Endo/Edgard Resolve 2018-042019-02-28 Laura kill d 04-28 11:15:00 Jean-Claude deficit: pt 13:20: [id number] 00 Endo/Edgard anti-coagul Endo/Edgard Resolve 2018-042019-02-28 Laura ation d 04-28 11:15:00 Jean-Claude therapy 13:20: [id number] 00 Elimination urinary Eliminatio Active 2018-04 Laura incontinenc n 04-28 [place] e 13:20: [id number] 00 Safety can be left Safety Resolve 2018-042019-03-05 Laura alone for d 04-28 12:45:00 Jean-Claude only short 13:20: [id number] periods 00 Endo/Edgard knowledge/s Endo/Edgard Active 2018-04 Laura kill 05-05 [place] deficit: pt 12:45: [id number] 00 Endo/Edgard anti-coagul Endo/Edgard Active 2018-04 Laura ation 05-05 Jean-Claude therapy 12:45: [id number] 00 Allergies, Adverse Reactions, Alerts Allergy Name Allergy Status Severity Reaction(s) Onset Inactive Treating Comments Type Date Date Clinician bananas Unknown Active Unknown Reaction 2017-04 Roselyn Unknown 0-10 (Radha) Nithin [id number] keflex Unknown Active Unknown Reaction 2017-04 Roselyn Unknown 0-10 (Radha) Nithin [id number] nuts Unknown Active Unknown Reaction 2017-04 Roselyn Unknown 0-10 (Radha) Nithin [id number] Cipro Medication Active Unknown Reaction 2017-04 Sonia White Name ID Unknown 0-10 metronidazol Base Active Unknown Nausea and 2017-04 Roselyn e Ingredient vomiting 2-20 Guidesylvain [id number] Medications Ordered Filled Start Stop Current Ordering [...] nded nded release release loperamide loperamide No [place] 1-2 Unknown 2 mg tablet 2 mg [...] pen s pen testosteron testosteron 2017-04 No [place] Unknown Unknown e cypionate e cypionate 06-06 Latanya DAVID 200 mg/mL 200 mg/mL intramuscul intramuscul ar kit ar kit mometasone mometasone 2017-04 No [place] Unknown Unknown 0.1 % 0.1 % 06-06 Latanya DAVID topical topical cream cream finasteride finasteride 2017-04 No [place] Unknown Unknown 5 mg tablet 5 mg tablet 06-06 Latanya DAVID Levemir Levemir 2018-1 2019- No [place] Unknown Unknown FlexTouch FlexTouch 06-06 MD,Latanya Woods [...]
--- OUTSIDE RECORDS SUMMARY | 2019-04-11 14:42 | XMS REPORT ---
:1940 Author Organization [facility] Care Team Providers Name Role Phone Unavailable Unavailable Unavailable Problems Condition Condition Condition Status Onset Resolution Last Treating Comments Name Details Category Date Date Treatment Clinician Date Pain frequent Pain Mgmt Resolve 2017-042018-05-08 Roselyn pain d 0-10 08:50:00 (Radha) 11:15: Weller 00 [id number] Cardio edema Cardiovasc Resolve 2017-042018-02-20 Roselyn ular d 0-10 09:50:00 (Radha) 11:15: Weller 00 [id number] Respiratory dyspnea Respirator Resolve 2017-042018-02-15 Roselyn present y d 0-10 10:20:00 (Radha) 11:15: Weller 00 [id number] Endo/Edgard glucose Endo/Edgard Resolve 2017-042018-03-20 Roselyn testing d 0-10 12:30:00 (Radha) dependence 11:15: Weller 00 [id number] Endo/Edgard knowledge/s Endo/Edgard Resolve 2017-042018-03-06 Roselyn kill d 0-10 09:30:00 (Radha) deficit: pt 11:15: Weller 00 [id number] Endo/Edgard anti-coagul Endo/Edgard Resolve 2017-042018-03-20 Roselyn ation d 0-10 12:30:00 (Radha) therapy 11:15: Weller 00 [id number] Endo/Edgard diabetic Endo/Edgard Resolve 2017-042018-03-06 Roselyn foot care d 0-10 09:30:00 (Radha) 11:15: Weller 00 [id number] Sensory impaired Sensory Resolve 2017-042018-03-22 Roselyn hearing d 0-10 09:55:00 (Radha) 11:15: Weller 00 [id number] Integument pressure Integument Resolve 2017-042018-08-21 Roselyn ulcer d 0-10 12:45:00 (Radha) present 11:15: Weller [id number] Integument skin Integument Resolve 2017-042018-03-03 Roselyn integrity d 0-10 09:19:00 (Radha) risk 11:15: Weller [id number] Integument surgical Integument Resolve 2017-042018-03-03 Quality wound d 0-10 09:19:00 Realtime7 present 11:15: 00 Integument other wound Integument Resolve 2017-042018-03-03 Quality present d 0-10 09:19:00 Realtime7 11:15: 00 Elimination urinary Eliminatio Resolve 2017-042018-03-20 Roselyn incontinenc n d 0-10 12:30:00 (Radha) e 11:15: Weller [id number] Neuro confusion Neuro/Emot Resolve 2017-042018-03-22 Roselyn present ion d 0-10 09:55:00 (Radha) 11:15: Weller [id number] Neuro anxiety Neuro/Emot Resolve 2017-042018-03-22 Roselyn present ion d 0-10 09:55:00 (Radha) 11:15: Weller [id number] Neuro impaired Neuro/Emot Resolve 2017-042018-03-22 Roselyn decision-ma ion d 0-10 09:55:00 (Radha) pj 11:15: Weller [id number] Activity ADL Activity Resolve 2017-042018-03-22 Roselyn assistance d 0-10 09:55:00 (Radha) required 11:15: [id number] Safety structural Safety Resolve 2017-042018-03-22 Roselyn barriers d 0-10 09:55:00 (Radha) present 11:15: Weller [id number] Safety fall risk Safety Resolve 2017-042018-03-22 Roselyn factor d 0-10 09:55:00 (Radha) present 11:15: Weller [id number] Safety risk for Safety Resolve 2017-042018-03-22 Roselyn hospitaliza d 0-10 09:55:00 (Radha) tion 11:15: Weller [id number] Safety can be left Safety Resolve 2017-042018-03-22 Roselyn alone for d 0-10 09:55:00 (Radha) only short 11:15: Weller 00 [id number] Medication oral med Meds Resolve 2017-042018-02-06 Roselyn assistance d 0-10 09:15:00 (Radha) required 11:15: Weller [id number] Medication injectable Meds Resolve 2017-042018-02-06 Roselyn med d 0-10 09:15:00 (Radha) assistance 11:15: Weller required 00 [id number] Medication knowledge/s Meds Resolve 2017-042018-02-15 Roselyn kill d 0-10 10:20:00 (Radha) deficit: pt 11:15: Weller 00 [id number] Medication potential Meds Resolve 2017-042018-02-15 Roselyn clinically d 0-10 10:20:00 (Radha) significant 11:15: Weller medication 00 [id number] issue Musculoskel transfer Musculoske Resolve 2017-042018-03-20 Roselyn etal assistance letal d 0-10 12:30:00 (Radha) required 11:15: Weller [id number] Musculoskel requires Musculoske Resolve 2017-042018-03-20 Roselyn etal human letal d 0-10 12:30:00 (Radha) assist to 11:15: Weller leave home 00 [id number] Safety knowledge/s Safety Resolve 2017-042018-03-22 Laura kill d 0-12 09:55:00 Jean-Claude deficit: pt 10:00: [id number] 00 Respiratory knowledge/s Respirator Resolve 2017-042018-02-06 Laura kill y d 0-15 09:15:00 Jean[place]Claude deficit: cg 10:00: [id number] 00 Respiratory lung sounds Respirator Resolve 2017-042018-02-06 Laura deficit y d 0-15 09:15:00 [place] 10:00: [id number] 00 Sensory impaired Sensory Resolve 2017-042018-03-22 Quality verbal d 0-17 09:55:00 Realtime7 communicati 18:36: on 42 Musculoskel knowledge/s Musculoske Resolve 2017-042018-03-03 Laura etal kill letal d 0-24 09:19:00 Jean-Claude deficit: cg 09:45: [id number] 00 Nutrition knowledge/s Nutrition Resolve 2017-042018-03-03 Laura kill d 0-26 09:19:00 [place] deficit: pt 09:15: [id number] 00 Nutrition nutritional Nutrition Resolve 2017-042018-03-03 Laura restriction d 09:19:00 [place] s 09:15: [id number] 00 Elimination catheter Eliminatio Resolve 2017-042018-03-20 Laura present n d 0 12:30:00 Jean-Claude 09:15: [id number] 00 Elimination constipatio Eliminatio Resolve 2017-042018-03-20 Laura n n d 0 12:30:00 [place] 09:15: [id number] 00 Infection s/s of Infection Resolve 2017-042018-03-22 Laura infection d 0 09:55:00 Jean-Claude 09:30: [id number] 00 Endo/Edgard insulin Endo/Edgard Resolve 2017-042018-03-20 Laura admn d 04-22 12:30:00 Jean-Claude dependence 09:50: [id number] 00 Respiratory dyspnea Respirator Resolve 2017-042018-03-08 Laura present y d 04-24 09:20:00 Jean[place]Claude 10:07: [id number] 00 Safety cannot be Safety Resolve 2017-042018-03-22 Laura left alone d 04-24 09:55:00 Jean[place]Claude 10:07: [id number] 00 Cardio edema Cardiovasc Resolve 2017-042018-03-03 Laura ular d 04-26 09:19:00 Jean[place]Claude 09:51: [id number] 00 Respiratory Incentive Respirator Resolve 2017-042018-03-03 Laura Spirometer y d 04-26 09:19:00 Jean-Claude /Acapella 09:51: [id number] Device 00 treatments in home Endo/Edgard knowledge/s Endo/Edgard Resolve 2017-042018-03-20 Laura kill d 05-08 12:30:00 [place] deficit: pt 09:20: [id number] 00 Nutrition knowledge/s Nutrition Resolve 2017-042018-04-19 Laura kill d 05-08 09:45:00 Jean[place]Claude deficit: pt 09:20: [id number] 00 Nutrition nutritional Nutrition Resolve 2017-042018-04-19 Laura restriction d 05-08 09:45:00 Jean[place]Claude s 09:20: [id number] 00 Endo/Edgard diabetic Endo/Edgard Resolve 2017-042018-03-20 Laura foot care d 2- 12:30:00 Jean-Claude 09:20: [id number] 00 Pain frequent Pain Mgmt Unknown 2017-04 Laura pain 2- [place] 12:45: [id number] 00 Respiratory dyspnea Respirator Resolve 2017-042018-03-20 Laura present y d 2 12:30:00 [place] 12:45: [id number] 00 Integument pressure Integument Unknown 2017-04 Laura ulcer 2- Jean-Claude present 12:45: [id number] 00 Integument surgical Integument Resolve 2017-042018-03-24 Laura wound d 2 11:23:00 Jean[place]Claude present 12:45: [id number] 00 Endo/Edgard diabetic Endo/Edgard Resolve 2017-042018-03-24 Laura foot care d 05-23 11:23:00 Jean[place] 09:55: [id number] 00 Elimination catheter Eliminatio Resolve 2017-042018-04-19 Laura present n d 05-23 09:45:00 Jean[place]Claude 09:55: [id number] 00 Safety risk for Safety Resolve 2017-042018-04-19 Laura hospitaliza d 2 09:45:00 Jean-Claude tion 11:23: [id number] 00 Safety can be left Safety Resolve 2017-042018-04-19 Laura alone for d 2- 09:45:00 Jean-Claude only short 11:23: [id number] periods 00 Musculoskel knowledge/s Musculoske Resolve 2017-042018-03-29 Laura etal kill letal d - 09:30:00 Jean[place]Claude deficit: cg 10:20: [id number] 00 Musculoskel requires Musculoske Resolve 2017-042018-04-12 Laura etal human letal d 2- 09:45:00 Jean-Claude assist to 10:20: [id number] leave home 00 Endo/Edgard diabetic Endo/Edgard Resolve 2017-042018-04-19 Laura foot care d 2- 09:45:00 Jean[place]Claude 09:30: [id number] 00 Elimination constipatio Eliminatio Resolve 2017-042018-04-12 Laura n n d 05-30 09:45:00 [place] 09:30: [id number] 00 Pain frequent Pain Mgmt Unknown 2017-04 Laura pain 06-06 Jean-Claude 09:45: [id number] 00 Endo/Edgard insulin Endo/Edgard Resolve 2017-042018-04-19 Laura admn d 06-06 09:45:00 [place] dependence 09:45: [id number] 00 Endo/Edgard anti-coagul Endo/Edgard Resolve 2017-042018-04-19 Laura ation d 06-06 09:45:00 [place] therapy 09:45: [id number] 00 Integument surgical Integument Resolve 2017-042018-04-05 Laura wound d 06-06 09:45:00 [place] present 09:45: [id number] 00 Integument skin Integument Resolve 2017-042018-04-05 Laura integrity d 06-06 09:45:00 Jean-Claude risk 09:45: [id number] 00 Integument pressure Integument Unknown 2017-04 Laura ulcer 06-06 Jean-Claude present 09:45: [id number] 00 Elimination UTI within Eliminatio Resolve 2017-042018-04-12 Laura past 14 n d 06-06 09:45:00 Jean-Claude days 09:45: [id number] 00 Activity ADL Activity Resolve 2017-042018-09-15 Laura assistance d 06-06 10:35:00 Jean[place]Claude required 09:45: [id number] 00 Safety fall risk Safety Resolve 2017-042018-04-19 Laura factor d 06-06 09:45:00 Jean[place]Claude present 09:45: [id number] 00 Medication potential Meds Resolve 2017-042018-04-19 Laura clinically d 06-06 09:45:00 Jean-Claude significant 09:45: [id number] medication 00 issue Medication oral med Meds Resolve 2017-042018-04-05 Shari assistance d 06-06 09:45:00 [place] required 09:45: [id number] 00 Medication injectable Meds Resolve 2017-042018-08-09 Shari med d 06-06 09:20:00 [place] assistance 09:45: [id number] required 00 Musculoskel transfer Musculoske Resolve 2017-042018-04-12 Shari etal assistance letal d 06-06 09:45:00 [place] required 09:45: [id number] 00 Medication oral med Meds Resolve 2017-042018-04-19 Laura assistance d 06-08 09:45:00 Jean[place]Claude required 10:00: [id number] 00 Medication injectable Meds Unknown 2017-04 Laura med 06-08 [place] assistance 10:00: [id number] required 00 Sensory impaired Sensory Resolve 2017-042018-04-19 Nima verbal d 06-08 09:45:00 [place] communicati 15:20: [id number] on 00 Sensory impaired Sensory Resolve 2017-042018-04-19 Nima hearing d 06-08 09:45:00 [place] 15:20: [id number] 00 Medication injectable Meds Unknown 2017-04 Nhung med Pérez assistance 14:56: [id number] required 00 Medication injectable Meds Unknown Nima med 04-13 [place] assistance 13:50: [id number] required 00 Elimination constipatio Eliminatio Resolve 2018-04-19 Laura n n d 04-14 09:45:00 Jean[place]Claude 09:28: [id number] 00 Medication injectable Meds Unknown Laura med 04-17 [place] assistance 10:00: [id number] required 00 Medication injectable Meds Resolve 2018-04-19 Laura med d 04-19 09:45:00 [place] assistance 09:45: [id number] required 00 Endo/Edgard anti-coagul Endo/Edgard Resolve 2018-04-26 Laura ation d 04-21 10:15:00 Jean-Claude therapy 09:45: [id number] 00 Nutrition knowledge/s Nutrition Resolve 2018-04-26 Laura kill d 04-21 10:15:00 [place] deficit: pt 09:45: [id number] 00 Nutrition nutritional Nutrition Resolve 2018-04-26 Laura restriction d 04-21 10:15:00 Jean-Claude s 09:45: [id number] 00 Elimination catheter Eliminatio Resolve 2018-04-26 Laura present n d 04-21 10:15:00 Jean[place]Claude 09:45: [id number] 00 Elimination constipatio Eliminatio Resolve 2018-04-26 Laura n n d 04-21 10:15:00 Jean[place] 09:45: [id number] 00 Safety risk for Safety Resolve 2018-04-26 Laura hospitaliza d 1-11 10:15:00 Jean-Claude tion 09:45: [id number] 00 Safety can be left Safety Resolve 2018-04-26 Laura alone for d 1-11 10:15:00 Jean-Claude only short 09:45: [id number] periods 00 Sensory impaired Sensory Resolve 2018-04-26 Nima verbal d 1-11 10:15:00 [place] communicati 14:30: [id number] on 00 Sensory impaired Sensory Resolve 2018-04-26 Nima hearing d 1-11 10:15:00 [place] 14:30: [id number] 00 Sensory impaired Sensory Resolve 2018-04-28 Nima verbal d 1-17 10:20:00 [place] communicati 12:45: [id number] on 00 Sensory impaired Sensory Resolve 2018-04-28 Nima hearing d 1-17 10:20:00 [place] 12:45: [id number] 00 Endo/Edgard anti-coagul Endo/Edgard Resolve 2018-05-24 Laura ation d 1-18 12:30:00 Jean-Claude therapy 10:20: [id number] 00 Safety risk for Safety Active Laura hospitaliza - [place] tion 10:20: [id number] 00 Safety can be left Safety Resolve 2018-05-10 Laura alone for d 1- 13:45:00 Jean-Claude only short 10:10: [id number] Sensory impaired Sensory Resolve 2018-05-10 Jia hearing d 05-05 13:45:00 [place] 13:30: t 00 [id number] Sensory impaired Sensory Resolve 2018-05-10 Jia verbal d 1 13:45:00 [place] communicati 13:30: t on 00 [id number] Elimination catheter Eliminatio Resolve 2018-05-08 Wandy present n d 05-08 08:50:00 ,Kaylee 08:50: 00 Elimination constipatio Eliminatio Resolve 2018-06-28 Wandy n n d 05-08 09:45:00 ,Kaylee 08:50: 00 Safety cannot be Safety Resolve 2018-05-10 Laura left alone d 1- 13:45:00 [place] 08:50: [id number] 00 Elimination catheter Eliminatio Resolve 2018-05-12 Shari present n d 2- 09:30:00 [place] 09:30: [id number] 00 Safety can be left Safety Resolve 2018-05-17 Laura alone for d - 10:00:00 Jean-Claude only short 09:30: [id number] periods 00 Elimination urinary Eliminatio Resolve 2018-05-15 Laura incontinenc n d 05-15 08:45:00 [place] e 08:45: [id number] 00 Pain frequent Pain Mgmt Resolve 2018-05-17 Laura pain d 2-06 10:00:00 [place] 10:00: [id number] 00 Respiratory lung sounds Respirator Resolve 2018-05-22 Laura deficit y d 2-06 10:44:00 Jean[place] 10:00: [id number] 00 Integument pressure Integument Unknown Laura ulcer 2-06 Jean-Claude present 10:00: [id number] 00 Integument skin Integument Resolve 2018-05-17 Laura integrity d 2-06 10:00:00 [place] risk 10:00: [id number] 00 Integument surgical Integument Resolve 2018-05-17 Laura wound d 2-06 10:00:00 Jean-Claude present 10:00: [id number] 00 Activity ADL Activity Unknown 2018- Laura assistance 2-06 [place] required 10:00: [id number] 00 Activity self-care Activity Resolve 2018-05-19 Laura deficit d 2-06 11:15:00 Jean[place]Claude 10:00: [id number] 00 Safety fall risk Safety Resolve 2018-05-19 Laura factor d 2-06 11:15:00 [place] present 10:00: [id number] 00 Elimination urinary Eliminatio Resolve 2018-05-24 [place] incontinenc n d 2- 12:30:00 Kaylee 11:15: 00 Safety can be left Safety Resolve 2018-05-24 Laura alone for d 2-08 12:30:00 Jean-Claude only short 11:15: [id number] periods 00 Safety fall risk Safety Resolve 2018-05-24 Sonia White factor d 2-12 12:30:00 present 09:48: 41 Endo/Edgard glucose Endo/Edgard Resolve 2018-05-24 Luara tolerance d 2-13 12:30:00 [place] problem 12:30: [id number] 00 Respiratory Incentive Respirator Resolve 2018-06-07 Laura Spirometer y d 2-15 12:00:00 Jean-Claude /Acapella 13:40: [id number] Device 00 treatments in home Endo/Edgard anti-coagul Endo/Edgard Resolve 2018-06-12 Lauar ation d 2-15 09:30:00 Jean-Claude therapy 13:40: [id number] 00 Elimination urinary Eliminatio Resolve 2018-05-26 Laura incontinenc n d 2-15 13:40:00 Jean-Claude e 13:40: [id number] 00 Safety can be left Safety Resolve 2018-06-07 Laura alone for d 2-15 12:00:00 Jean-Claude only short 13:40: [id number] periods 00 Endo/Edgard glucose Endo/Edgard Resolve 2018-06-07 Cherrise tolerance d 2-22 12:00:00 [place] problem 10:15: [id number] 00 Endo/Edgard insulin Endo/Edgard Resolve 2018-06-12 Cherrise admn d 2-22 09:30:00 [place] dependence 10:15: [id number] 00 Endo/Edgard glucose Endo/Edgard Resolve 2018-06-12 Cherrise testing d 2- 09:30:00 Trixie dependence 10:15: [id number] 00 Safety fall risk Safety Resolve 2018-06-07 Cherrise factor d 2-22 12:00:00 [place] present 10:15: [id number] 00 Musculoskel transfer Musculoske Active Cherrise etal assistance letal 06-02 Trixie required 10:15: [id number] 00 Musculoskel requires Musculoske Active Cherrise etal human letal 2 [place] assist to 10:15: [id number] leave home 00 Elimination urinary Eliminatio Resolve 2018-06-07 Laura incontinenc n d 06-05 12:00:00 Jean-Claude e 12:30: [id number] 00 Activity self-care Activity Resolve 2018-08-14 Laura deficit d 06-05 12:10:00 [place] 12:30: [id number] 00 Elimination urinary Eliminatio Resolve 2018-06-12 Laura incontinenc n d 06-09 09:30:00 Jean-Claude e 09:13: [id number] 00 Safety can be left Safety Resolve 2018-06-12 Laura alone for d 06-09 09:30:00 Jean-Claude only short 09:13: [id number] periods 00 Respiratory Incentive Respirator Resolve 2018-06-14 Laura Spirometer y d 06-12 09:30:00 Jean-Claude /Acapemiguel 09:30: [id number] Device 00 treatments in home Endo/Edgard anti-coagul Endo/Edgard Resolve 2018-06-30 Laura ation d 06-14 09:19:00 Jean-Claude therapy 09:30: [id number] 00 Safety can be left Safety Resolve 2018-06-30 Laura alone for d 06-14 09:19:00 Jean-Claude alejo 09:30: [id number] periods 00 Elimination urinary Eliminatio Resolve 2018-06-19 Laura incontinenc n d 06-16 13:45:00 Jean[place]Cla[place] e 09:45: [id number] 00 Elimination urinary Eliminatio Resolve 2018-06-28 Laura incontinenc n d 06-23 09:45:00 Jean[place]Cla[place] e 13:15: [id number] 00 Elimination constipatio Eliminatio Resolve 2018-07-14 Laura n n d 06-30 09:20:00 [place] 09:19: [id number] 00 Endo/Edgard anti-coagul Endo/Edgard Resolve 2018-07-14 Laura ation d 07-03 09:20:00 Jean-Claude therapy 12:49: [id number] 00 Elimination urinary Eliminatio Resolve 2018-07-14 Laura incontinenc n d 07-03 09:20:00 [place] e 12:49: [id number] 00 Safety can be left Safety Resolve 2018-08-18 Laura alone for d 07-07 12:05:00 Jean-Claude only short 12:50: [id number] periods 00 Endo/Edgard glucose Endo/Edgard Resolve 2018-07-14 Shi testing d 07-10 09:20:00 Sorin, dependence 12:30: [id number] 00 Pain frequent Pain Mgmt Resolve 2018-07-14 Laura pain d 07-14 09:20:00 Jean-Claude 09:20: [id number] 00 Integument surgical Integument Resolve 2018-08-13 Laura wound d 07-14 12:50:00 Jean-Claude present 09:20: [id number] 00 Integument skin Integument Resolve 2018-08-13 Laura integrity d 07-14 12:50:00 [place] risk 09:20: [id number] 00 Safety fall risk Safety Resolve 2018-08-18 Laura factor d 07-14 12:05:00 [place] present 09:20: [id number] 00 Endo/Edgard anti-coagul Endo/Edgard Resolve 2018-08-14 Laura ation d 07-17 12:10:00 Jean[place]Cla[place] therapy 13:00: [id number] 00 Elimination urinary Eliminatio Resolve 2018-07-21 Laura incontinenc n d 07-17 09:25:00 Jean-Claude e 13:00: [id number] 00 Activity ADL Activity Unknown Laura assistance 07-17 [place] required 13:00: [id number] 00 Elimination urinary Eliminatio Resolve 2018-08-14 Laura incontinenc n d 07-24 12:10:00 [place] e 09:27: [id number] 00 Pain frequent Pain Mgmt Resolve 2018 Laura pain d 08-07 09:20:00 Jean[place]Claude 12:45: [id number] 00 Cardio edema Cardiovasc Resolve 2018 Laura ular d 08-07 09:20:00 Jean[place]Cla[place] 12:45: [id number] 00 Respiratory dyspnea Respirator Resolve 2018 Laura present y d 08-07 09:20:00 Jean[place]Cla[place] 12:45: [id number] 00 Endo/Edgard diabetic Endo/Edgard Resolve 2018-08-14 Laura foot care d 08-07 12:10:00 Jean[place]Cla[place] 12:45: [id number] 00 Nutrition knowledge/s Nutrition Active Laura kill 08-07 Jean-Claude deficit: pt 12:45: [id number] 00 Nutrition nutritional Nutrition Active Laura restriction 08-07 Jean-Claude s 12:45: [id number] 00 Neuro confusion Neuro/Emot Resolve 2018-08-14 Laura present ion d 08-07 12:10:00 Jean-Claude 12:45: [id number] 00 Medication oral med Meds Resolve 2018 Laura assistance d 08-07 09:20:00 [place] required 12:45: [id number] 00 Medication injectable Meds Resolve 2018 Jia med d 08-07 09:20:00 Jerardo assistance 12:45: [id number] required 00 Cardio edema Cardiovasc Resolve 2018-08-23 Laura ular d 08-13 11:15:00 Jean[place]Cla[place] 12:50: [id number] 00 Respiratory dyspnea Respirator Resolve 2018-08-14 Laura present y d 08-13 12:10:00 [place] 12:50: [id number] 00 Endo/Edgard anti-coagul Endo/Edgard Resolve 2018-08-28 Laura ation d 08-16 12:00:00 Jean[place]Cla[place] therapy 12:15: [id number] 00 Elimination urinary Eliminatio Resolve 2018-08-21 Laura incontinenc n d 08-16 12:45:00 Jean-Cla[place] e 12:15: [id number] 00 Sensory impaired Sensory Resolve 2018-08-21 Krystyna verbal d 08-17 12:45:00 [place] communicati 14:30: [id number] on 00 Sensory impaired Sensory Resolve 2018-08-21 Krystyna hearing d 08-17 12:45:00 [place] 14:30: [id number] 00 Social financial LILLIAN: Resolve 2019-02-16 Krystyna Services resource Social d 08-17 13:45:00 [place] deficit Services 14:30: [id number] 00 Social knowledge/s LILLIAN: Resolve 2018-08-17 Krystyna Services kill Social d 08-17 14:30:00 [place] deficit - Services 14:30: [id number] pt 00 Social knowledge/s LILLIAN: Resolve 2018-08-17 Krystyna Services kill Social d 08-17 14:30:00 [place] deficit - Services 14:30: [id number] cg 00 Safety can be left Safety Resolve 2018-09-07 Laura alone for d 5-15 10:00:00 Jean-Claude cruz short 11:15: [id number] periods 00 Social knowledge/s LILLIAN: Active Laura Services kill Social 08-23 [place] deficit - Services 11:15: [id number] pt 00 Elimination urinary Eliminatio Resolve 2018-09-07 Laura incontinenc n d 08-25 10:00:00 Jean-Claude e 11:45: [id number] 00 Sensory impaired Sensory Resolve 2018-09-07 Krystyna verbal d 09-01 10:00:00 [facility] 14:45: [id number] on 00 Sensory impaired Sensory Resolve 2018-09-07 Krystyna hearing d 09-01 10:00:00 [facility] 14:45: [id number] 00 Social knowledge/s LILLIAN: Active Krystyna Services kill Social 09-01 [place] deficit - Services 14:45: [id number] cg 00 Respiratory dyspnea Respirator Resolve 2018-09-15 Laura present y d 09-07 10:35:00 Jean-Claude 10:00: [id number] 00 Pain frequent Pain Mgmt Resolve 2018-09-11 Laura pain d 09-11 11:50:00 Jean[place]Cla[place] 11:50: [id number] 00 Cardio hypertensio Cardiovasc Resolve 2018-09-11 Laura n ular d 09-11 11:50:00 [place]Cla[place] 11:50: [id number] 00 Integument pressure Integument Resolve 2018-09-15 Laura ulcer d 6 10:35:00 Jean[place]Claude present 11:50: [id number] 00 Integument surgical Integument Resolve 2018-09-15 Laura wound d 6-03 10:35:00 [place] present 11:50: [id number] 00 Integument skin Integument Resolve 2018-09-15 Laura integrity d 09-11 10:35:00 [place] risk 11:50: [id number] 00 Elimination urinary Eliminatio Resolve 2018-09-11 Laura incontinenc n d 09-11 11:50:00 Jean[place]Cla[place] e 11:50: [id number] 00 Activity ADL Activity Unknown Laura assistance 09-11 [place] required 11:50: [id number] 00 Activity self-care Activity Resolve 2018-09-15 Laura deficit d 09-11 10:35:00 Jean-Claude 11:50: [id number] 00 Safety fall risk Safety Resolve 2018-09-15 Laura factor d 09-11 10:35:00 [place] present 11:50: [id number] 00 Safety can be left Safety Resolve 2018-09-15 Laura alone for d 09-11 10:35:00 Jean-Claude only short 11:50: [id number] periods 00 Endo/Edgard anti-coagul Endo/Edgard Resolve 2018-09-18 Laura ation d 09-15 12:20:00 [place] therapy 10:35: [id number] 00 Elimination urinary Eliminatio Resolve 2018-09-18 Laura incontinenc n d 09-15 12:20:00 Jean[place]Cla[place] e 10:35: [id number] 00 Elimination constipatio Eliminatio Resolve 2018-09-18 Laura n n d 09-15 12:20:00 [place] 10:35: [id number] 00 Safety can be left Safety Resolve 2018-09-25 Laura alone for d 610 11:45:00 Jean-Claude only short 12:20: [id number] periods 00 Cardio hypertensio Cardiovasc Resolve 2018-09-21 Laura n ular d 09-21 11:45:00 Jean[place]Cla[place] 11:45: [id number] 00 Endo/Edgard anti-coagul Endo/Edgard Resolve 2018-09-25 Laura ation d 09-21 11:45:00 Jean-Claude therapy 11:45: [id number] 00 Cardio hypertensio Cardiovasc Resolve 2018-10-02 Laura n ular d 6- 12:05:00 Jean[place]Cla[place] 11:45: [id number] 00 Elimination urinary Eliminatio Resolve 2018-10-02 Laura incontinenc n d 6 12:05:00 Jean-Claude e 11:45: [id number] 00 Endo/Edgard anti-coagul Endo/Edgard Resolve 2018-10-02 Laura ation d 09-29 12:05:00 [place] therapy 09:45: [id number] 00 Safety can be left Safety Resolve 2018-10-02 Laura alone for d 09-29 12:05:00 Jean-Claude only short 09:45: [id number] 00 Endo/Edgard anti-coagul Endo/Edgard Resolve 2018-10-27 Laura ation d 10-04 11:30:00 [place] therapy 10:10: [id number] 00 Elimination urinary Eliminatio Resolve 2018-10-06 Laura incontinenc n d 10-04 09:10:00 Jean[place]Cla[place] e 10:10: [id number] 00 Elimination constipatio Eliminatio Resolve 2018-10-06 Laura n n d 10-04 09:10:00 Jean[place] 10:10: [id number] 00 Safety can be left Safety Resolve 2018-10-06 Laura alone for d 10-04 09:10:00 Jean[place]Cla[place] only short 10:10: [id number] Sensory impaired Sensory Resolve 2018-10-23 Krystyna verbal d 10-05 11:56:00 [place] communicati 15:00: [id number] on 00 Sensory impaired Sensory Resolve 2018-10-23 Krystyna hearing d 10-05 11:56:00 [place] 15:00: [id number] 00 Elimination urinary Eliminatio Resolve 2018-10-27 Laura incontinenc n d 10-09 11:30:00 Jean-Claude butler 12:15: [id number] 00 Elimination bloody Eliminatio Resolve 2018-10-27 Laura urine n d 10-09 11:30:00 Jean-Claude 12:15: [id number] 00 Safety can be left Safety Resolve 2018-10-23 Laura alone for d 10-09 11:56:00 Jean-Claude only short 12:15: [id number] periods Elimination constipatio Eliminatio Resolve 2018-12-08 Laura n n d 10-16 14:00:00 Jean-Claude 12:35: [id number] 00 Cardio edema Cardiovasc Resolve 2018-10-27 Laura ular d 10-20 11:30:00 Jean-Claude 11:35: [id number] 00 Endo/Edgard knowledge/s Endo/Edgard Resolve 2018-10-27 Laura kill d 10-20 11:30:00 Jean-Claude deficit: pt 11:35: [id number] 00 Sensory impaired Sensory Unknown Jonatan verbal 7-15 Demarco, communicati 13:30: PT on [id number] Sensory impaired Sensory Unknown Jonatan hearing 15 Demarco, 13:30: PT [id number] Safety can be left Safety Resolve 2018-10-27 Laura alone for d 10-25 11:30:00 Jean-Claude cruz short 10:35: [id number] 00 Endo/Edgard glucose Endo/Edgard Resolve 2018-12-11 Cherrise tolerance d 10-30 09:30:00 [place] problem 11:55: [id number] 00 Endo/Edgard insulin Endo/Edgard Resolve 2018-12-13 Cherrise admn d 10-30 11:10:00 Trixie dependence 11:55: [id number] 00 Endo/Edgard glucose Endo/Edgard Resolve 2018-12-13 Cherrise testing d 10-30 11:10:00 [place] dependence 11:55: [id number] 00 Endo/Edgard knowledge/s Endo/Edgard Resolve 2018-12-08 Cherrise kill d 10-30 14:00:00 Trixie deficit: pt 11:55: [id number] 00 Elimination urinary Eliminatio Resolve 2018-12-08 Cherrise urgency n d 10-30 14:00:00 [place] 11:55: [id number] 00 Neuro depressive Neuro/Emot Resolve 2018-12-08 Cherrise feelings ion d 10-30 14:00:00 Trixie present 11:55: [id number] 00 Neuro impaired Neuro/Emot Resolve 2018-12-08 Cherrise decision-ma ion d 10-30 14:00:00 [place] pj 11:55: [id number] 00 Safety fall risk Safety Resolve 2018-12-06 Cherrise factor d 10-30 13:05:00 [place] present 11:55: [id number] 00 Endo/Edgard anti-coagul Endo/Edgard Resolve 2018-12-13 Shi ation d 11-01 11:10:00 Sorin, therapy 12:30: [id number] 00 Respiratory Incentive Respirator Resolve 2018-11-29 Cherrise Spirometer y d 11-03 10:15:00 [place] /[place] 10:25: [id number] Device 00 treatments in home Elimination urinary Eliminatio Resolve 2018-12-08 Cherrise frequency n d 11-03 14:00:00 [place] 10:25: [id number] 00 Respiratory lung sounds Respirator Resolve 2018-11-29 Cherrise deficit y d 11-06 10:15:00 Trixie 12:05: [id number] 00 Neuro memory Neuro/Emot Resolve 2018-12-08 Cherrise deficit ion d 11-08 14:00:00 Trixie needing 10:30: [id number] supervision 00 Pain frequent Pain Mgmt Resolve 2018-12-06 Shi pain d 11-10 13:05:00 Sorin, 11:00: [id number] 00 Integument pressure Integument Active Shi ulcer 11-10 Sorin, present 11:00: [id number] 00 Integument surgical Integument Active 2018- Shi wound 11-10 Sorin, present 11:00: [id number] 00 Integument skin Integument Active 2018- Shi integrity 11-10 Sorin, risk 11:00: [id number] 00 Elimination urinary Eliminatio Resolve 2018-12-08 Shi incontinenc n d 11-10 14:00:00 Sorin, e 11:00: [id number] 00 Activity self-care Activity Resolve 2018-11-29 Shi deficit d 11-10 10:15:00 Sorin, 11:00: [id number] 00 Activity ADL Activity Resolve 2018-12-08 Shi assistance d 11-10 14:00:00 Sorin, required 11:00: [id number] 00 Pain knowledge/s Pain Mgmt Resolve 2018-12-06 Krystyna kill d 11-16 13:05:00 [place] deficit: cg 15:15: [id number] 00 Respiratory knowledge/s Respirator Resolve 2018-11-29 Krystyna kill y d 11-16 10:15:00 [place] deficit: cg 15:15: [id number] 00 Integument knowledge/s Integument Active Krystyna kill 11-16 [place] deficit: cg 15:15: [id number] 00 Elimination knowledge/s Eliminatio Resolve 2018-12-08 Rkystyna kill n d 11-16 14:00:00 [place] deficit: cg 15:15: [id number] 00 Safety knowledge/s Safety Resolve 2018-12-06 Krystyna kill d 11-16 13:05:00 [place] deficit: cg 15:15: [id number] 00 Cardio hypertensio Cardiovasc Resolve 2018-11-29 Lenny jarvis joseph d 11-17 10:15:00 [place] 10:45: [id number] 00 Safety can be left Safety Resolve 2018-12-08 Shi alone for d 11-22 14:00:00 nancy Rowell short 11:00: [id number] periods 00 Sensory impaired Sensory Resolve 2018-12-08 Laura verbal d 11-24 14:00:00 Jean-Claude communicati 09:30: [id number] on 00 Sensory impaired Sensory Resolve 2018-12-08 Laura hearing d 11-24 14:00:00 Jean-Claude 09:30: [id number] 00 Respiratory knowledge/s Respirator Resolve 2018-12-08 Laura kill y d 12-01 14:00:00 Jean-Claude deficit: cg 09:30: [id number] 00 Sensory impaired Sensory Unknown Krystyna verbal 8 [place] communicati 15:00: [id number] on 00 Sensory impaired Sensory Unknown Krystyna hearing 12-08 [place] 15:00: [id number] 00 Respiratory knowledge/s Respirator Resolve 2018-12-13 Laura kill y d 12-11 11:10:00 Jean-Claude deficit: cg 09:30: [id number] 00 Endo/Edgard knowledge/s Endo/Edgard Resolve 2018-12-13 Laura kill d 12-11 11:10:00 [place] deficit: pt 09:30: [id number] 00 Elimination urinary Eliminatio Resolve 2018-12-15 Laura incontinenc n d 12-11 13:10:00 Jean-Claude e 09:30: [id number] 00 Safety can be left Safety Resolve 2018-12-15 Laura alone for d 12-11 13:10:00 Jean-Claude only short 09:30: [id number] 00 Endo/Edgard knowledge/s Endo/Edgard Resolve 2019-01-05 Laura kill d 12-15 11:00:00 Jean-Claude deficit: pt 13:10: [id number] 00 Endo/Edgard anti-coagul Endo/Edgard Resolve 2019-01-05 Laura ation d 12-15 11:00:00 Jean-Claude therapy 13:10: [id number] 00 Elimination urinary Eliminatio Resolve 2018-12-27 Laura incontinenc n d 12-18 09:20:00 Jean-Claude e 12:10: [id number] 00 Safety can be left Safety Resolve 2019-01-05 Laura alone for d 12-18 11:00:00 Jean-Claude only short 12:10: [id number] periods 00 Elimination constipatio Eliminatio Resolve 2019-01-05 Laura n n d 12-20 11:00:00 Jean-Claude 12:15: [id number] 00 Pain frequent Pain Mgmt Resolve 2019-01-15 Laura pain d 12-27 12:30:00 Jean-Claude 09:20: [id number] 00 Respiratory dyspnea Respirator Resolve 2019-01-05 Laura present y d 12-27 11:00:00 Jean-Claude 09:20: [id number] 00 Endo/Edgard diabetic Endo/Edgard Resolve 2019-01-05 Laura foot care d 9 11:00:00 Jean-Claude 09:20: [id number] 00 Elimination diarrhea Eliminatio Resolve 2019-01-05 Laura n d 18 11:00:00 Jean-Claude 09:20: [id number] 00 Neuro confusion Neuro/Emot Resolve 2019-01-05 Laura present ion d 12-27 11:00:00 Jean-Claude 09:20: [id number] 00 Neuro anxiety Neuro/Emot Resolve 2019-01-05 Laura present ion d 12-27 11:00:00 Jean-Claude 09:20: [id number] 00 Activity ADL Activity Resolve 2019-01-05 Laura assistance d 12-27 11:00:00 [place] required 09:20: [id number] 00 Activity self-care Activity Resolve 2019-01-05 Lauar deficit d 12-27 11:00:00 Jean-Claude 09:20: [id number] 00 Safety fall risk Safety Resolve 2019-01-05 Laura factor d 12-27 11:00:00 Jean-Claude present 09:20: [id number] 00 Medication potential Meds Resolve 2019-01-05 Laura clinically d 12-27 11:00:00 [place] significant 09:20: [id number] medication 00 issue Elimination urinary Eliminatio Resolve 2019-01-05 Laura incontinenc n d 12-29 11:00:00 Jean-Claude e 11:20: [id number] 00 Endo/Edgard knowledge/s Endo/Edgard Resolve 2019-01-10 Laura kill d 01-08 10:00:00 Jean-Claude deficit: pt 11:30: [id number] 00 Endo/Edgard anti-coagul Endo/Edgard Resolve 2019-01-10 Laura ation d 01-08 10:00:00 Jean-Claude therapy 11:30: [id number] 00 Elimination urinary Eliminatio Resolve 2019-01-15 Laura incontinenc n d 01-08 12:30:00 [place] e 11:30: [id number] 00 Safety can be left Safety Resolve 2019-02-16 Laura alone for d 9-30 12:00:00 Jean-Claude only short 11:30: [id number] periods 00 Respiratory dyspnea Respirator Resolve 2018-042019-01-26 Laura present y d 0-02 10:00:00 Jean-Claude 10:00: [id number] 00 Activity ADL Activity Resolve 2018-042019-01-12 Laura assistance d 0-02 11:30:00 [place] required 10:00: [id number] 00 Activity self-care Activity Resolve 2018-042019-01-12 Laura deficit d 0-02 11:30:00 [place] 10:00: [id number] 00 Safety fall risk Safety Resolve 2018-042019-01-12 Laura factor d 0-02 11:30:00 [place] present 10:00: [id number] 00 Medication injectable Meds Resolve 2018-042019-01-17 Laura med d 0-02 09:45:00 [place] assistance 10:00: [id number] required 00 Endo/Edgard knowledge/s Endo/Edgard Resolve 2018-042019-01-15 Laura kill d 0-04 12:30:00 Jean-Claude deficit: pt 11:30: [id number] 00 Endo/Edgard anti-coagul Endo/Edgard Resolve 2018-042019-01-15 Laura ation d 0-04 12:30:00 [place] therapy 11:30: [id number] 00 Elimination constipatio Eliminatio Resolve 2018-042019-01-15 Laura n n d 0-04 12:30:00 [place] 11:30: [id number] 00 Sensory impaired Sensory Resolve 2018-042019-01-15 Krystyna verbal d 0-04 12:30:00 [place] communicati 15:30: [id number] on 00 Sensory impaired Sensory Resolve 2018-042019-01-15 Krystyna hearing d 0-04 12:30:00 [place] 15:30: [id number] 00 Infection s/s of Infection Active 2018-04 Laura infection 0-07 Jean-Claude 12:30: [id number] 00 Sensory impaired Sensory Resolve 2018-042019-01-22 Jonatan verbal d 0-08 11:00:00 Demarco communicflorentino 13:00: PT on 00 [id number] Sensory impaired Sensory Resolve 2018-042019-01-22 Jonatan hearing d 0-08 11:00:00 Demarco, 13:00: PT 00 [id number] Endo/Edgard knowledge/s Endo/Edgard Resolve 2018-042019-02-07 Laura kill d 0-09 11:20:00 Jean-Claude deficit: pt 09:45: [id number] 00 Endo/Edgard anti-coagul Endo/Edgard Resolve 2018-042019-02-07 Laura ation d 0-09 11:20:00 Jean-Claude therapy 09:45: [id number] 00 Elimination urinary Eliminatio Resolve 2018-042019-02-02 Laura incontinenc n d 0-09 11:30:00 [place] e 09:45: [id number] 00 Elimination constipatio Eliminatio Resolve 2018-042019-02-02 Laura n n d 0-16 11:30:00 Jean-Claude 10:00: [id number] 00 Sensory impaired Sensory Resolve 2018-042019-01-31 Jonatan verbal d 0-17 11:10:00 Demarco, communicati 15:00: PT on 00 [id number] Sensory impaired Sensory Resolve 2018-042019-01-31 Jonatan hearing d 0-17 11:10:00 Demarco, 15:00: PT 00 [id number] Pain frequent Pain Mgmt Resolve 2018-042019-02-16 Jonatan pain d 0-23 12:00:00 Demarco, 13:00: PT 00 [id number] Sensory impaired Sensory Unknown 2018-04 Jonatan verbal 0-23 Demarco, communicati 13:00: PT on 00 [id number] Sensory impaired Sensory Unknown 2018-04 Jonatan hearing 0-23 Demarco, 13:00: PT 00 [id number] Respiratory dyspnea Respirator Resolve 2018-042019-02-07 Laura present y d 0-25 11:20:00 Jean-Claude 11:30: [id number] 00 Elimination urinary Eliminatio Resolve 2018-042019-02-07 Laura incontinenc n d 0-28 11:20:00 Jean-Claude e 12:40: [id number] 00 Endo/Edgard knowledge/s Endo/Edgard Resolve 2018-042019-02-19 Laura kill d 1 12:40:00 Jean-Claude deficit: pt 12:30: [id number] 00 Endo/Edgard anti-coagul Endo/Edgard Resolve 2018-042019-02-19 Laura ation d 04-11 12:40:00 Jean-Claude therapy 12:30: [id number] 00 Elimination urinary Eliminatio Resolve 2018-042019-02-16 Laura incontinenc n d 04-11 12:00:00 Jean-Claude e 12:30: [id number] 00 Medication potential Meds Resolve 2018-042019-02-24 Laura clinically d 04-14 09:45:00 [place] significant 12:20: [id number] medication 00 issue Elimination constipatio Eliminatio Resolve 2018-042019-02-16 Laura n n d 04-16 12:00:00 Jean-Claude 11:20: [id number] 00 Elimination urinary Eliminatio Resolve 2018-042019-02-24 Laura incontinenc n d 04-21 09:45:00 [place] e 12:40: [id number] 00 Safety can be left Safety Resolve 2018-042019-02-24 Laura alone for d 04-21 09:45:00 Jean-Claude only short 12:40: [id number] periods 00 Endo/Edgard knowledge/s Endo/Edgard Resolve 2018-042019-02-24 Laura kill d 04-23 09:45:00 Jean-Claude deficit: pt 12:05: [id number] 00 Endo/Edgard anti-coagul Endo/Edgard Resolve 2018-042019-02-24 Laura ation d 04-23 09:45:00 [place] therapy 12:05: [id number] 00 Sensory impaired Sensory Resolve 2018-042019-02-26 Laura verbal d 04-26 13:20:00 Jean-Claude communicati 09:45: [id number] on 00 Sensory impaired Sensory Resolve 2018-042019-02-26 Laura hearing d 04-26 13:20:00 Jean-Claude 09:45: [id number] 00 Endo/Edgard knowledge/s Endo/Edgard Resolve 2018-042019-02-28 Laura kill d 04-28 11:15:00 Jean-Claude deficit: pt 13:20: [id number] 00 Endo/Edgard anti-coagul Endo/Edgard Resolve 2018-042019-02-28 Laura ation d 04-28 11:15:00 Jean-Claude therapy 13:20: [id number] 00 Elimination urinary Eliminatio Active 2018-04 Laura incontinenc n -18 [place] e 13:20: [id number] 00 Safety can be left Safety Active 2018-04 Laura alone for -18 [place] only short 13:20: [id number] periods 00 Allergies, Adverse Reactions, Alerts Allergy Name Allergy Status Severity Reaction(s) Onset Inactive Treating Comments Type Date Date Clinician bananas Unknown Active Unknown Reaction 2017-04 Roselyn Unknown 0-10 (Radha) Nithin [id number] keflex Unknown Active Unknown Reaction 2017-04 Roselyn Unknown 0-10 (Radha) Nithin [id number] nuts Unknown Active Unknown Reaction 2017-04 Roselyn Unknown 0-10 (Radha) Nithin [id number] Cipro Medication Active Unknown Reaction 2017-04 Sonia Quinn Name ID Unknown 0-10 metronidazol Base Active Unknown Nausea and 2017-04 Roselyn e Ingredient vomiting 2-20 Jordan [id number] Medications Ordered Filled Start Stop Current Ordering [...] Unknown mg capsule mg capsule 0-10 - MDJamie Klor-Con Klor-Con No Shallish 1 Unknown [...] nded nded release release loperamide loperamide No [place] 1-2 Unknown 2 mg tablet 2 mg [...] nded nded release release Levemir Levemir 2017-04 No Shallish Unknown Unknown FlexTouch FlexTouch 0-10 [...] pen s pen testosteron testosteron 2017-04 No [place] Unknown Unknown e cypionate e cypionate 06-06 Latanya DAVID 200 mg/mL 200 mg/mL intramuscul intramuscul ar kit ar kit mometasone mometasone 2017-04 No [place] Unknown Unknown 0.1 % 0.1 % 06-06 Latanya DAVID topical topical cream cream finasteride finasteride 2017-04 No [place] Unknown Unknown 5 mg tablet 5 mg tablet 06-06 Latanya DAVID Levemir Levemir 2017-04- No [place] Unknown Unknown FlexTouch FlexTouch 06-06 Latanya DAVID U-100 U-100 Insulin 100 Insulin 100 unit/mL (3 unit/mL (3 mL) mL) subcutaneou subcutaneou s pen s pen Levemir Levemir 2018- No Shallish Unknown Unknown FlexTouch FlexTouch 05-01 MD,Jamie U-100 U-100 Insulin 100 Insulin 100 [...] Shallish Unknown Unknown 2.5 mg 2.5 mg 09-11-07 MD,Jamie tablet tablet Coumadin Coumadin 2018- No [...] Unknown Unknown hyclate 100 hyclate 100 001-25 ,Jamie mg capsule mg capsule clindamycin clindamycin 2018-04- Yes Shallish Unknown Unknown HCl 300 mg HCl 300 mg 01-31 MD,Jamie capsule capsule Vital Signs Vital Name Observation Time Observation Value Comments SYSTOLIC mm[Hg] 2019-03-02 18:08:59 136 mm[Hg] mm[Hg] Method: Sit SYSTOLIC mm[Hg] 2018-01-23 18:02:16 122 mm[Hg] mm[Hg] Method: Stand DIASTOLIC mm[Hg] 2019-03-02 18:08:59 76 mm[Hg] mm[Hg] Method: Sit DIASTOLIC mm[Hg] 2018-01-23 18:02:16 60 mm[Hg] mm[Hg] Method: Stand PULSE 2019-03-02 18:08:59 64 /min /min RESP RATE 2019-03-02 18:08:59 16 /min /min TEMP 2019-03-02 18:08:59 97.9 [degF] Procedures This patient has no known procedures. Results This patient has no known results.
--- OUTSIDE RECORDS SUMMARY | 2019-04-11 14:42 | XMS REPORT ---
:1940 Author Organization [facility] Care Team Providers Name Role Phone Unavailable Unavailable Unavailable Problems Condition Condition Condition Status Onset Resolution Last Treating Comments Name Details Category Date Date Treatment Clinician Date Pain frequent Pain Mgmt Resolve 2017-042018-05-08 Roselyn pain d 0-10 08:50:00 (Radha) 11:15: Weller 00 [id number] Cardio edema Cardiovasc Resolve 2017-042018-02-20 Roselyn ular d 0-10 09:50:00 (Radha) 11:15: Weller 00 [id number] Respiratory dyspnea Respirator Resolve 2017-042018-02-15 Roselyn present y d 0-10 10:20:00 (Radha) 11:15: Weller 00 [id number] Endo/Edgard glucose Endo/Edgard Resolve 2017-042018-03-20 Roselyn testing d 0-10 12:30:00 (Radha) dependence 11:15: Weller 00 [id number] Endo/Edgard knowledge/s Endo/Edgard Resolve 2017-042018-03-06 Roselyn kill d 0-10 09:30:00 (Radha) deficit: pt 11:15: Weller 00 [id number] Endo/Edgard anti-coagul Endo/Edgard Resolve 2017-042018-03-20 Roselyn ation d 0-10 12:30:00 (Radha) therapy 11:15: Weller 00 [id number] Endo/Edgard diabetic Endo/Edgard Resolve 2017-042018-03-06 Roselyn foot care d 0-10 09:30:00 (Radha) 11:15: Weller 00 [id number] Sensory impaired Sensory Resolve 2017-042018-03-22 Roselyn hearing d 0-10 09:55:00 (Radha) 11:15: Weller 00 [id number] Integument pressure Integument Resolve 2017-042018-08-21 Roselyn ulcer d 0-10 12:45:00 (Radha) present 11:15: Weller [id number] Integument skin Integument Resolve 2017-042018-03-03 Roselyn integrity d 0-10 09:19:00 (Radha) risk 11:15: Weller [id number] Integument surgical Integument Resolve 2017-042018-03-03 Quality wound d 0-10 09:19:00 Realtime7 present 11:15: 00 Integument other wound Integument Resolve 2017-042018-03-03 Quality present d 0-10 09:19:00 Realtime7 11:15: 00 Elimination urinary Eliminatio Resolve 2017-042018-03-20 Roselyn incontinenc n d 0-10 12:30:00 (Radha) e 11:15: Weller [id number] Neuro confusion Neuro/Emot Resolve 2017-042018-03-22 Roselyn present ion d 0-10 09:55:00 (Radha) 11:15: Weller [id number] Neuro anxiety Neuro/Emot Resolve 2017-042018-03-22 Roselyn present ion d 0-10 09:55:00 (Radha) 11:15: Weller [id number] Neuro impaired Neuro/Emot Resolve 2017-042018-03-22 Roselyn decision-ma ion d 0-10 09:55:00 (Radha) pj 11:15: Weller [id number] Activity ADL Activity Resolve 2017-042018-03-22 Roselyn assistance d 0-10 09:55:00 (Radha) required 11:15: [id number] Safety structural Safety Resolve 2017-042018-03-22 Roselyn barriers d 0-10 09:55:00 (Radha) present 11:15: Weller [id number] Safety fall risk Safety Resolve 2017-042018-03-22 Roselyn factor d 0-10 09:55:00 (Radha) present 11:15: Weller [id number] Safety risk for Safety Resolve 2017-042018-03-22 Roselyn hospitaliza d 0-10 09:55:00 (Radha) tion 11:15: Weller [id number] Safety can be left Safety Resolve 2017-042018-03-22 Roselyn alone for d 0-10 09:55:00 (Radha) only short 11:15: Weller 00 [id number] Medication oral med Meds Resolve 2017-042018-02-06 Roselyn assistance d 0-10 09:15:00 (Radha) required 11:15: Weller [id number] Medication injectable Meds Resolve 2017-042018-02-06 Roselyn med d 0-10 09:15:00 (Radha) assistance 11:15: Weller required 00 [id number] Medication knowledge/s Meds Resolve 2017-042018-02-15 Roselyn kill d 0-10 10:20:00 (Radha) deficit: pt 11:15: Weller 00 [id number] Medication potential Meds Resolve 2017-042018-02-15 Roselyn clinically d 0-10 10:20:00 (Radha) significant 11:15: Weller medication 00 [id number] issue Musculoskel transfer Musculoske Resolve 2017-042018-03-20 Roselyn etal assistance letal d 0-10 12:30:00 (Radha) required 11:15: Weller [id number] Musculoskel requires Musculoske Resolve 2017-042018-03-20 Roselyn etal human letal d 0-10 12:30:00 (Radha) assist to 11:15: Weller leave home 00 [id number] Safety knowledge/s Safety Resolve 2017-042018-03-22 Laura kill d 0-12 09:55:00 Jean-Claude deficit: pt 10:00: [id number] 00 Respiratory knowledge/s Respirator Resolve 2017-042018-02-06 Laura kill y d 0-15 09:15:00 Jean-Claude deficit: cg 10:00: [id number] 00 Respiratory lung sounds Respirator Resolve 2017-042018-02-06 Laura deficit y d 0-15 09:15:00 [place] 10:00: [id number] 00 Sensory impaired Sensory Resolve 2017-042018-03-22 Quality verbal d 0-17 09:55:00 Realtime7 communicati 18:36: on 42 Musculoskel knowledge/s Musculoske Resolve 2017-042018-03-03 Laura etal kill letal d 0-24 09:19:00 Jean-Claude deficit: cg 09:45: [id number] 00 Nutrition knowledge/s Nutrition Resolve 2017-042018-03-03 Laura kill d 0-26 09:19:00 [place] deficit: pt 09:15: [id number] 00 Nutrition nutritional Nutrition Resolve 2017-042018-03-03 Laura restriction d 09:19:00 [place] s 09:15: [id number] 00 Elimination catheter Eliminatio Resolve 2017-042018-03-20 Laura present n d 0 12:30:00 Jean-Claude 09:15: [id number] 00 Elimination constipatio Eliminatio Resolve 2017-042018-03-20 Laura n n d 0 12:30:00 [place] 09:15: [id number] 00 Infection s/s of Infection Resolve 2017-042018-03-22 Laura infection d 0 09:55:00 Jean-Claude 09:30: [id number] 00 Endo/Edgard insulin Endo/Edgard Resolve 2017-042018-03-20 Laura admn d 04-22 12:30:00 Jean-Claude dependence 09:50: [id number] 00 Respiratory dyspnea Respirator Resolve 2017-042018-03-08 Laura present y d 04-24 09:20:00 Jean-Claude 10:07: [id number] 00 Safety cannot be Safety Resolve 2017-042018-03-22 Laura left alone d 04-24 09:55:00 Jean-Claude 10:07: [id number] 00 Cardio edema Cardiovasc Resolve 2017-042018-03-03 Laura ular d 04-26 09:19:00 Jean-Claude 09:51: [id number] 00 Respiratory Incentive Respirator Resolve 2017-042018-03-03 Laura Spirometer y d 04-26 09:19:00 Jean-Claude /Acapella 09:51: [id number] Device 00 treatments in home Endo/Edgard knowledge/s Endo/Edgard Resolve 2017-042018-03-20 Laura kill d 05-08 12:30:00 [place] deficit: pt 09:20: [id number] 00 Nutrition knowledge/s Nutrition Resolve 2017-042018-04-19 Laura kill d 05-08 09:45:00 Jean-Claude deficit: pt 09:20: [id number] 00 Nutrition nutritional Nutrition Resolve 2017-042018-04-19 Laura restriction d 05-08 09:45:00 Jean-Claude s 09:20: [id number] 00 Endo/Edgard diabetic Endo/Edgard Resolve 2017-042018-03-20 Laura foot care d 2- 12:30:00 Jean-Claude 09:20: [id number] 00 Pain frequent Pain Mgmt Unknown 2017-04 Laura pain 2- [place] 12:45: [id number] 00 Respiratory dyspnea Respirator Resolve 2017-042018-03-20 Laura present y d 2 12:30:00 [place] 12:45: [id number] 00 Integument pressure Integument Unknown 2017-04 Laura ulcer 2- Jean-Claude present 12:45: [id number] 00 Integument surgical Integument Resolve 2017-042018-03-24 Laura wound d 2 11:23:00 Jean-Claude present 12:45: [id number] 00 Endo/Edgard diabetic Endo/Edgard Resolve 2017-042018-03-24 Laura foot care d 05-23 11:23:00 Jean-Claude 09:55: [id number] 00 Elimination catheter Eliminatio Resolve 2017-042018-04-19 Laura present n d 05-23 09:45:00 Jean-Claude 09:55: [id number] 00 Safety risk for Safety Resolve 2017-042018-04-19 Laura hospitaliza d 2 09:45:00 Jean-Claude tion 11:23: [id number] 00 Safety can be left Safety Resolve 2017-042018-04-19 Laura alone for d 2- 09:45:00 Jean-Claude only short 11:23: [id number] periods 00 Musculoskel knowledge/s Musculoske Resolve 2017-042018-03-29 Laura etal kill letal d - 09:30:00 Jean-Claude deficit: cg 10:20: [id number] 00 Musculoskel requires Musculoske Resolve 2017-042018-04-12 Laura etal human letal d 2- 09:45:00 Jean-Claude assist to 10:20: [id number] leave home 00 Endo/Edgard diabetic Endo/Edgard Resolve 2017-042018-04-19 Laura foot care d 2- 09:45:00 Jean-Claude 09:30: [id number] 00 Elimination constipatio Eliminatio Resolve 2017-042018-04-12 Laura n n d 05-30 09:45:00 [place] 09:30: [id number] 00 Pain frequent Pain Mgmt Unknown 2017-04 Laura pain 06-06 Jean-Claude 09:45: [id number] 00 Endo/Edgard insulin Endo/Edgard Resolve 2017-042018-04-19 Laura admn d 06-06 09:45:00 [place] dependence 09:45: [id number] 00 Endo/Edgard anti-coagul Endo/Edgard Resolve 2017-042018-04-19 Laura ation d 06-06 09:45:00 [place] therapy 09:45: [id number] 00 Integument surgical Integument Resolve 2017-042018-04-05 Laura wound d 06-06 09:45:00 [place] present 09:45: [id number] 00 Integument skin Integument Resolve 2017-042018-04-05 Laura integrity d 06-06 09:45:00 Jean-Claude risk 09:45: [id number] 00 Integument pressure Integument Unknown 2017-04 Laura ulcer 06-06 Jean-Claude present 09:45: [id number] 00 Elimination UTI within Eliminatio Resolve 2017-042018-04-12 Laura past 14 n d 06-06 09:45:00 Jean-Claude days 09:45: [id number] 00 Activity ADL Activity Resolve 2017-042018-09-15 Laura assistance d 06-06 10:35:00 Jean-Claude required 09:45: [id number] 00 Safety fall risk Safety Resolve 2017-042018-04-19 Laura factor d 06-06 09:45:00 Jean-Claude present 09:45: [id number] 00 Medication potential Meds Resolve 2017-042018-04-19 Laura clinically d 06-06 09:45:00 Jean-Claude significant 09:45: [id number] medication 00 issue Medication oral med Meds Resolve 2017-042018-04-05 Shari assistance d 06-06 09:45:00 [place] required 09:45: [id number] 00 Medication injectable Meds Resolve 2017-042018-08-09 Shari med d 06-06 09:20:00 [place] assistance 09:45: [id number] required 00 Musculoskel transfer Musculoske Resolve 2017-042018-04-12 Shari etal assistance letal d 06-06 09:45:00 [place]zi required 09:45: [id number] 00 Medication oral med Meds Resolve 2017-042018-04-19 Laura assistance d 06-08 09:45:00 Jean-Claude required 10:00: [id number] 00 Medication injectable Meds Unknown 2017-04 Laura med 06-08 [place] assistance 10:00: [id number] required 00 Sensory impaired Sensory Resolve 2017-042018-04-19 Nima verbal d 06-08 09:45:00 [place] communicati 15:20: [id number] on 00 Sensory impaired Sensory Resolve 2017-042018-04-19 Nima hearing d 06-08 09:45:00 [place] 15:20: [id number] 00 Medication injectable Meds Unknown 2017-04 Nhung med Pérez assistance 14:56: [id number] required 00 Medication injectable Meds Unknown Nima med 04-13 [place] assistance 13:50: [id number] required 00 Elimination constipatio Eliminatio Resolve 2018-04-19 Laura n n d 04-14 09:45:00 Jean-Claude 09:28: [id number] 00 Medication injectable Meds Unknown Laura med 04-17 [place] assistance 10:00: [id number] required 00 Medication injectable Meds Resolve 2018-04-19 Laura med d 04-19 09:45:00 [place] assistance 09:45: [id number] required 00 Endo/Edgard anti-coagul Endo/Edgard Resolve 2018-04-26 Laura ation d 04-21 10:15:00 Jean-Claude therapy 09:45: [id number] 00 Nutrition knowledge/s Nutrition Resolve 2018-04-26 Laura kill d 04-21 10:15:00 [place] deficit: pt 09:45: [id number] 00 Nutrition nutritional Nutrition Resolve 2018-04-26 Laura restriction d 04-21 10:15:00 Jean-Claude s 09:45: [id number] 00 Elimination catheter Eliminatio Resolve 2018-04-26 Laura present n d 04-21 10:15:00 Jean-Claude 09:45: [id number] 00 Elimination constipatio Eliminatio Resolve 2018-04-26 Laura n n d 04-21 10:15:00 Jean-Claude 09:45: [id number] 00 Safety risk for Safety Resolve 2018-04-26 Laura hospitaliza d 1-11 10:15:00 Jean-Claude tion 09:45: [id number] 00 Safety can be left Safety Resolve 2018-04-26 Laura alone for d 1-11 10:15:00 Jean-Claude only short 09:45: [id number] periods 00 Sensory impaired Sensory Resolve 2018-04-26 Nima verbal d 1-11 10:15:00 [place] communicati 14:30: [id number] on 00 Sensory impaired Sensory Resolve 2018-04-26 Nima hearing d 1-11 10:15:00 [place] 14:30: [id number] 00 Sensory impaired Sensory Resolve 2018-04-28 Nima verbal d 1-17 10:20:00 [place] communicati 12:45: [id number] on 00 Sensory impaired Sensory Resolve 2018-04-28 Nima hearing d 1-17 10:20:00 [place] 12:45: [id number] 00 Endo/Edgard anti-coagul Endo/Edgard Resolve 2018-05-24 Laura ation d 1-18 12:30:00 Jean-Claude therapy 10:20: [id number] 00 Safety risk for Safety Active Laura hospitaliza - [place] tion 10:20: [id number] 00 Safety can be left Safety Resolve 2018-05-10 Laura alone for d 1- 13:45:00 Jean-Claude only short 10:10: [id number] Sensory impaired Sensory Resolve 2018-05-10 Jia hearing d 05-05 13:45:00 [place] 13:30: t 00 [id number] Sensory impaired Sensory Resolve 2018-05-10 Jia verbal d 1 13:45:00 [place] communicati 13:30: t on 00 [id number] Elimination catheter Eliminatio Resolve 2018-05-08 Wandy present n d 05-08 08:50:00 ,Kaylee 08:50: 00 Elimination constipatio Eliminatio Resolve 2018-06-28 Wandy n n d 05-08 09:45:00 ,Kaylee 08:50: 00 Safety cannot be Safety Resolve 2018-05-10 Laura left alone d 1- 13:45:00 [place] 08:50: [id number] 00 Elimination catheter Eliminatio Resolve 2018-05-12 Shari present n d 2- 09:30:00 Regeczi 09:30: [id number] 00 Safety can be left Safety Resolve 2018-05-17 Laura alone for d - 10:00:00 Jean-Claude only short 09:30: [id number] periods 00 Elimination urinary Eliminatio Resolve 2018-05-15 Laura incontinenc n d 05-15 08:45:00 [place] e 08:45: [id number] 00 Pain frequent Pain Mgmt Resolve 2018-05-17 Laura pain d 2-06 10:00:00 [place] 10:00: [id number] 00 Respiratory lung sounds Respirator Resolve 2018-05-22 Laura deficit y d 2-06 10:44:00 Jean-Claude 10:00: [id number] 00 Integument pressure Integument Unknown Laura ulcer 2-06 Jean-Claude present 10:00: [id number] 00 Integument skin Integument Resolve 2018-05-17 Laura integrity d 2-06 10:00:00 [place] risk 10:00: [id number] 00 Integument surgical Integument Resolve 2018-05-17 Laura wound d 2-06 10:00:00 Jean-Claude present 10:00: [id number] 00 Activity ADL Activity Unknown 2018- Laura assistance 2-06 [place] required 10:00: [id number] 00 Activity self-care Activity Resolve 2018-05-19 Laura deficit d 2-06 11:15:00 Jean-Claude 10:00: [id number] 00 Safety fall risk Safety Resolve 2018-05-19 Laura factor d 2-06 11:15:00 [place] present 10:00: [id number] 00 Elimination urinary Eliminatio Resolve 2018-05-24 [place] incontinenc n d 2- 12:30:00 Kaylee 11:15: 00 Safety can be left Safety Resolve 2018-05-24 Larua alone for d 2-08 12:30:00 Jean-Claude only short 11:15: [id number] periods 00 Safety fall risk Safety Resolve 2018-05-24 Sonia White factor d 2-12 12:30:00 present 09:48: 41 Endo/Edgard glucose Endo/Edgard Resolve 2018-05-24 Laura tolerance d 2-13 12:30:00 [place] problem 12:30: [id number] 00 Respiratory Incentive Respirator Resolve 2018-06-07 Laura Spirometer y d 2-15 12:00:00 Jean-Claude /Acapella 13:40: [id number] Device 00 treatments in home Endo/Edgard anti-coagul Endo/Edgard Resolve 2018-06-12 Laura ation d 2-15 09:30:00 Jean-Claude therapy 13:40: [id number] 00 Elimination urinary Eliminatio Resolve 2018-05-26 Laura incontinenc n d 2-15 13:40:00 Jean-Claude e 13:40: [id number] 00 Safety can be left Safety Resolve 2018-06-07 Laura alone for d 2-15 12:00:00 Jean-Claude only short 13:40: [id number] periods 00 Endo/Edgard glucose Endo/Edgard Resolve 2018-06-07 Cherrise tolerance d 2-22 12:00:00 [place] problem 10:15: [id number] 00 Endo/Edgard insulin Endo/Edgard Resolve 2018-06-12 Cherrise admn d 2-22 09:30:00 [place] dependence 10:15: [id number] 00 Endo/Edgard glucose Endo/Edgard Resolve 2018-06-12 Cherrise testing d 2- 09:30:00 Trixie dependence 10:15: [id number] 00 Safety fall risk Safety Resolve 2018-06-07 Cherrise factor d 2-22 12:00:00 [place] present 10:15: [id number] 00 Musculoskel transfer Musculoske Active Cherrise etal assistance letal 06-02 Trixie required 10:15: [id number] 00 Musculoskel requires Musculoske Active Cherrise etal human letal 2 [place] assist to 10:15: [id number] leave home 00 Elimination urinary Eliminatio Resolve 2018-06-07 Laura incontinenc n d 06-05 12:00:00 Jean-Claude e 12:30: [id number] 00 Activity self-care Activity Resolve 2018-08-14 Laura deficit d 06-05 12:10:00 [place] 12:30: [id number] 00 Elimination urinary Eliminatio Resolve 2018-06-12 Laura incontinenc n d 06-09 09:30:00 Jean-Claude e 09:13: [id number] 00 Safety can be left Safety Resolve 2018-06-12 Laura alone for d 06-09 09:30:00 Jean-Claude only short 09:13: [id number] periods 00 Respiratory Incentive Respirator Resolve 2018-06-14 Laura Spirometer y d 06-12 09:30:00 Jean-Claude /Acapemiguel 09:30: [id number] Device 00 treatments in home Endo/Edgard anti-coagul Endo/Edgard Resolve 2018-06-30 Laura ation d 06-14 09:19:00 Jean-Claude therapy 09:30: [id number] 00 Safety can be left Safety Resolve 2018-06-30 Laura alone for d 06-14 09:19:00 Jean-Claude alejo 09:30: [id number] periods 00 Elimination urinary Eliminatio Resolve 2018-06-19 Laura incontinenc n d 06-16 13:45:00 Jean-Claude e 09:45: [id number] 00 Elimination urinary Eliminatio Resolve 2018-06-28 Laura incontinenc n d 06-23 09:45:00 Jean-Claude e 13:15: [id number] 00 Elimination constipatio Eliminatio Resolve 2018-07-14 Laura n n d 06-30 09:20:00 [place] 09:19: [id number] 00 Endo/Edgard anti-coagul Endo/Edgard Resolve 2018-07-14 Laura ation d 07-03 09:20:00 Jean-Claude therapy 12:49: [id number] 00 Elimination urinary Eliminatio Resolve 2018-07-14 Laura incontinenc n d 07-03 09:20:00 [place] e 12:49: [id number] 00 Safety can be left Safety Resolve 2018-08-18 Laura alone for d 07-07 12:05:00 Jean-Claude only short 12:50: [id number] periods 00 Endo/Edgard glucose Endo/Edgard Resolve 2018-07-14 Shi testing d 07-10 09:20:00 Sorin, dependence 12:30: [id number] 00 Pain frequent Pain Mgmt Resolve 2018-07-14 Laura pain d 07-14 09:20:00 Jean-Claude 09:20: [id number] 00 Integument surgical Integument Resolve 2018-08-13 Laura wound d 07-14 12:50:00 Jean-Claude present 09:20: [id number] 00 Integument skin Integument Resolve 2018-08-13 Laura integrity d 07-14 12:50:00 [place] risk 09:20: [id number] 00 Safety fall risk Safety Resolve 2018-08-18 Laura factor d 07-14 12:05:00 [place] present 09:20: [id number] 00 Endo/Edgard anti-coagul Endo/Edgard Resolve 2018-08-14 Laura ation d 07-17 12:10:00 Jean-Claude therapy 13:00: [id number] 00 Elimination urinary Eliminatio Resolve 2018-07-21 Laura incontinenc n d 07-17 09:25:00 Jean-Claude e 13:00: [id number] 00 Activity ADL Activity Unknown Laura assistance 07-17 [place] required 13:00: [id number] 00 Elimination urinary Eliminatio Resolve 2018-08-14 Laura incontinenc n d 07-24 12:10:00 [place] e 09:27: [id number] 00 Pain frequent Pain Mgmt Resolve 2018 Laura pain d 08-07 09:20:00 Jean-Claude 12:45: [id number] 00 Cardio edema Cardiovasc Resolve 2018 Laura ular d 08-07 09:20:00 Jean-Claude 12:45: [id number] 00 Respiratory dyspnea Respirator Resolve 2018 Laura present y d 08-07 09:20:00 Jean-Claude 12:45: [id number] 00 Endo/Edgard diabetic Endo/Edgard Resolve 2018-08-14 Laura foot care d 08-07 12:10:00 Jean-Claude 12:45: [id number] 00 Nutrition knowledge/s Nutrition Active Laura kill 08-07 Jean-Claude deficit: pt 12:45: [id number] 00 Nutrition nutritional Nutrition Active Laura restriction 08-07 Jean-Claude s 12:45: [id number] 00 Neuro confusion Neuro/Emot Resolve 2018-08-14 Laura present ion d 08-07 12:10:00 Jean-Claude 12:45: [id number] 00 Medication oral med Meds Resolve 2018 Laura assistance d 08-07 09:20:00 [place] required 12:45: [id number] 00 Medication injectable Meds Resolve 2018 Jia med d 08-07 09:20:00 Jerardo assistance 12:45: [id number] required 00 Cardio edema Cardiovasc Resolve 2018-08-23 Laura ular d 08-13 11:15:00 Jean-Claude 12:50: [id number] 00 Respiratory dyspnea Respirator Resolve 2018-08-14 Laura present y d 08-13 12:10:00 Jean-Claude 12:50: [id number] 00 Endo/Edgard anti-coagul Endo/Edgard Resolve 2018-08-28 Laura ation d 08-16 12:00:00 Jean-Claude therapy 12:15: [id number] 00 Elimination urinary Eliminatio Resolve 2018-08-21 Laura incontinenc n d 08-16 12:45:00 Jean-Claude e 12:15: [id number] 00 Sensory impaired Sensory Resolve 2018-08-21 Krystyna verbal d 08-17 12:45:00 [place] communicati 14:30: [id number] on 00 Sensory impaired Sensory Resolve 2018-08-21 Krystyna hearing d 08-17 12:45:00 [place] 14:30: [id number] 00 Social financial LILLIAN: Resolve 2019-02-16 Krystyna Services resource Social d 08-17 13:45:00 [place] deficit Services 14:30: [id number] 00 Social knowledge/s LILLIAN: Resolve 2018-08-17 Krystyna Services kill Social d 08-17 14:30:00 [place] deficit - Services 14:30: [id number] pt 00 Social knowledge/s LILLIAN: Resolve 2018-08-17 Krystyna Services kill Social d 08-17 14:30:00 [place] deficit - Services 14:30: [id number] cg 00 Safety can be left Safety Resolve 2018-09-07 Laura alone for d 5-15 10:00:00 Jean-Claude cruz short 11:15: [id number] periods 00 Social knowledge/s LILLIAN: Active Laura Services kill Social 08-23 [place] deficit - Services 11:15: [id number] pt 00 Elimination urinary Eliminatio Resolve 2018-09-07 Laura incontinenc n d 08-25 10:00:00 Jean-Claude e 11:45: [id number] 00 Sensory impaired Sensory Resolve 2018-09-07 Krystyna verbal d 09-01 [facility] 14[facility]: [id number] on 00 Sensory impaired Sensory Resolve 2018-09-07 Krystyna hearing d 09-01 10:00:00 [facility] 14:45: [id number] 00 Social knowledge/s LILLIAN: Active Krystyna Services kill Social 09-01 [place] deficit - Services 14:45: [id number] cg 00 Respiratory dyspnea Respirator Resolve 2018-09-15 Laura present y d 09-07 10:35:00 Jean-Claude 10:00: [id number] 00 Pain frequent Pain Mgmt Resolve 2018-09-11 Laura pain d 09-11 11:50:00 Jean-Claude 11:50: [id number] 00 Cardio hypertensio Cardiovasc Resolve 2018-09-11 Laura n ular d 09-11 11:50:00 Jean-Claude 11:50: [id number] 00 Integument pressure Integument Resolve 2018-09-15 Laura ulcer d 6 10:35:00 Jean-Claude present 11:50: [id number] 00 Integument surgical Integument Resolve 2018-09-15 Laura wound d 6-03 10:35:00 [place] present 11:50: [id number] 00 Integument skin Integument Resolve 2018-09-15 Laura integrity d 09-11 10:35:00 [place] risk 11:50: [id number] 00 Elimination urinary Eliminatio Resolve 2018-09-11 Laura incontinenc n d 09-11 11:50:00 Jean-Claude e 11:50: [id number] 00 Activity ADL Activity Unknown Laura assistance 09-11 [place] required 11:50: [id number] 00 Activity self-care Activity Resolve 2018-09-15 Laura deficit d 09-11 10:35:00 Jean-Claude 11:50: [id number] 00 Safety fall risk Safety Resolve 2018-09-15 Laura factor d 09-11 10:35:00 [place] present 11:50: [id number] 00 Safety can be left Safety Resolve 2018-09-15 Laura alone for d 09-11 10:35:00 Jean-Claude only short 11:50: [id number] periods 00 Endo/Edgadr anti-coagul Endo/Edgard Resolve 2018-09-18 Laura ation d 09-15 12:20:00 [place] therapy 10:35: [id number] 00 Elimination urinary Eliminatio Resolve 2018-09-18 Laura incontinenc n d 09-15 12:20:00 Jean-Claude e 10:35: [id number] 00 Elimination constipatio Eliminatio Resolve 2018-09-18 Laura n n d 09-15 12:20:00 Jean-Claude 10:35: [id number] 00 Safety can be left Safety Resolve 2018-09-25 Laura alone for d 610 11:45:00 Jean-Claude only short 12:20: [id number] periods 00 Cardio hypertensio Cardiovasc Resolve 2018-09-21 Laura n ular d 09-21 11:45:00 Jean-Claude 11:45: [id number] 00 Endo/Edgard anti-coagul Endo/Edgard Resolve 2018-09-25 Laura ation d 09-21 11:45:00 Jean-Claude therapy 11:45: [id number] 00 Cardio hypertensio Cardiovasc Resolve 2018-10-02 Laura n ular d 6- 12:05:00 Jean-Claude 11:45: [id number] 00 Elimination urinary Eliminatio Resolve 2018-10-02 Laura incontinenc n d 6 12:05:00 Jean-Claude e 11:45: [id number] 00 Endo/Edgard anti-coagul Endo/Edgard Resolve 2018-10-02 Laura ation d 09-29 12:05:00 [place] therapy 09:45: [id number] 00 Safety can be left Safety Resolve 2018-10-02 Laura alone for d 09-29 12:05:00 Jean-Claude only short 09:45: [id number] 00 Endo/Edgard anti-coagul Endo/Edgard Resolve 2018-10-27 Laura ation d 10-04 11:30:00 [place] therapy 10:10: [id number] 00 Elimination urinary Eliminatio Resolve 2018-10-06 Laura incontinenc n d 10-04 09:10:00 Jean-Claude e 10:10: [id number] 00 Elimination constipatio Eliminatio Resolve 2018-10-06 Laura n n d 10-04 09:10:00 Jean-Claude 10:10: [id number] 00 Safety can be left Safety Resolve 2018-10-06 Laura alone for d 10-04 09:10:00 Jean-Claude only short 10:10: [id number] Sensory impaired Sensory Resolve 2018-10-23 Krystyna verbal d 10-05 11:56:00 [place] communicati 15:00: [id number] on 00 Sensory impaired Sensory Resolve 2018-10-23 Krystyna hearing d 10-05 11:56:00 [place] 15:00: [id number] 00 Elimination urinary Eliminatio Resolve 2018-10-27 Laura incontinenc n d 10-09 11:30:00 Jean-Claude butler 12:15: [id number] 00 Elimination bloody Eliminatio Resolve 2018-10-27 Laura urine n d 10-09 11:30:00 Jean-Claude 12:15: [id number] 00 Safety can be left Safety Resolve 2018-10-23 Laura alone for d 10-09 11:56:00 Jean-Claude only short 12:15: [id number] periods Elimination constipatio Eliminatio Resolve 2018-12-08 Laura n n d 10-16 14:00:00 Jean-Claude 12:35: [id number] 00 Cardio edema Cardiovasc Resolve 2018-10-27 Laura ular d 10-20 11:30:00 Jean-Claude 11:35: [id number] 00 Endo/Edgard knowledge/s Endo/Edgard Resolve 2018-10-27 Laura kill d 10-20 11:30:00 Jean-Claude deficit: pt 11:35: [id number] 00 Sensory impaired Sensory Unknown Jonatan verbal 7-15 Demarco, communicati 13:30: PT on [id number] Sensory impaired Sensory Unknown Jonatan hearing 15 Demarco, 13:30: PT [id number] Safety can be left Safety Resolve 2018-10-27 Laura alone for d 10-25 11:30:00 Jean-Claude cruz short 10:35: [id number] 00 Endo/Edgard glucose Endo/Edgard Resolve 2018-12-11 Cherrise tolerance d 10-30 09:30:00 [place] problem 11:55: [id number] 00 Endo/Edgard insulin Endo/Edgard Resolve 2018-12-13 Cherrise admn d 10-30 11:10:00 Trixie dependence 11:55: [id number] 00 Endo/Edgard glucose Endo/Edgard Resolve 2018-12-13 Cherrise testing d 10-30 11:10:00 [place] dependence 11:55: [id number] 00 Endo/Edgard knowledge/s Endo/Edgard Resolve 2018-12-08 Cherrise kill d 10-30 14:00:00 Trixie deficit: pt 11:55: [id number] 00 Elimination urinary Eliminatio Resolve 2018-12-08 Cherrise urgency n d 10-30 14:00:00 [place] 11:55: [id number] 00 Neuro depressive Neuro/Emot Resolve 2018-12-08 Cherrise feelings ion d 10-30 14:00:00 Trixie present 11:55: [id number] 00 Neuro impaired Neuro/Emot Resolve 2018-12-08 Cherrise decision-ma ion d 10-30 14:00:00 [place] pj 11:55: [id number] 00 Safety fall risk Safety Resolve 2018-12-06 Cherrise factor d 10-30 13:05:00 [place] present 11:55: [id number] 00 Endo/Edgard anti-coagul Endo/Edgard Resolve 2018-12-13 Shi ation d 11-01 11:10:00 Sorin, therapy 12:30: [id number] 00 Respiratory Incentive Respirator Resolve 2018-11-29 Cherrise Spirometer y d 11-03 10:15:00 [place] /[place]capella 10:25: [id number] Device 00 treatments in home Elimination urinary Eliminatio Resolve 2018-12-08 Cherrise frequency n d 11-03 14:00:00 [place] 10:25: [id number] 00 Respiratory lung sounds Respirator Resolve 2018-11-29 Cherrise deficit y d 11-06 10:15:00 Trixie 12:05: [id number] 00 Neuro memory Neuro/Emot Resolve 2018-12-08 Cherrise deficit ion d 11-08 14:00:00 Trixie needing 10:30: [id number] supervision 00 Pain frequent Pain Mgmt Resolve 2018-12-06 Shi pain d 11-10 13:05:00 Sorin, 11:00: [id number] 00 Integument pressure Integument Active Shi ulcer 11-10 Sorin, present 11:00: [id number] 00 Integument surgical Integument Active 2018- Shi wound 11-10 Sorin, present 11:00: [id number] 00 Integument skin Integument Active 2018- Shi integrity 11-10 Sorin, risk 11:00: [id number] 00 Elimination urinary Eliminatio Resolve 2018-12-08 Shi incontinenc n d 11-10 14:00:00 Sorin, e 11:00: [id number] 00 Activity self-care Activity Resolve 2018-11-29 Shi deficit d 11-10 10:15:00 Sorin, 11:00: [id number] 00 Activity ADL Activity Resolve 2018-12-08 Shi assistance d 11-10 14:00:00 Sorin, required 11:00: [id number] 00 Pain knowledge/s Pain Mgmt Resolve 2018-12-06 Krystyna kill d 11-16 13:05:00 [place] deficit: cg 15:15: [id number] 00 Respiratory knowledge/s Respirator Resolve 2018-11-29 Krystyna kill y d 11-16 10:15:00 [place] deficit: cg 15:15: [id number] 00 Integument knowledge/s Integument Active Krystyna kill 11-16 [place] deficit: cg 15:15: [id number] 00 Elimination knowledge/s Eliminatio Resolve 2018-12-08 Krystyna kill n d 11-16 14:00:00 [place] deficit: cg 15:15: [id number] 00 Safety knowledge/s Safety Resolve 2018-12-06 Krystyna kill d 11-16 13:05:00 [place] deficit: cg 15:15: [id number] 00 Cardio hypertensio Cardiovasc Resolve 2018-11-29 Lenny jarvis joseph d 11-17 10:15:00 [place] 10:45: [id number] 00 Safety can be left Safety Resolve 2018-12-08 Shi alone for d 11-22 14:00:00 nancy Rowell short 11:00: [id number] periods 00 Sensory impaired Sensory Resolve 2018-12-08 Laura verbal d 11-24 14:00:00 Jean-Claude communicati 09:30: [id number] on 00 Sensory impaired Sensory Resolve 2018-12-08 Laura hearing d 11-24 14:00:00 Jean-Claude 09:30: [id number] 00 Respiratory knowledge/s Respirator Resolve 2018-12-08 Laura kill y d 12-01 14:00:00 Jean[place]Cla[place] deficit: cg 09:30: [id number] 00 Sensory impaired Sensory Unknown Krystyna verbal 8 [place] communicati 15:00: [id number] on 00 Sensory impaired Sensory Unknown Krystyna hearing 12-08 [place] 15:00: [id number] 00 Respiratory knowledge/s Respirator Resolve 2018-12-13 Laura kill y d 12-11 11:10:00 Jean-Claude deficit: cg 09:30: [id number] 00 Endo/Edgard knowledge/s Endo/Edgard Resolve 2018-12-13 Laura kill d 12-11 11:10:00 [place] deficit: pt 09:30: [id number] 00 Elimination urinary Eliminatio Resolve 2018-12-15 Laura incontinenc n d 12-11 13:10:00 Jean-Claude e 09:30: [id number] 00 Safety can be left Safety Resolve 2018-12-15 Laura alone for d 12-11 13:10:00 Jean[place]Claude only short 09:30: [id number] 00 Endo/Edgard knowledge/s Endo/Edgard Resolve 2019-01-05 Laura kill d 12-15 11:00:00 Jean-Claude deficit: pt 13:10: [id number] 00 Endo/Edgard anti-coagul Endo/Edgard Resolve 2019-01-05 Laura ation d 12-15 11:00:00 Jean-Claude therapy 13:10: [id number] 00 Elimination urinary Eliminatio Resolve 2018-12-27 Laura incontinenc n d 12-18 09:20:00 Jean-Claude e 12:10: [id number] 00 Safety can be left Safety Resolve 2019-01-05 Laura alone for d 12-18 11:00:00 Jean-Claude only short 12:10: [id number] periods 00 Elimination constipatio Eliminatio Resolve 2019-01-05 Larua n n d 12-20 11:00:00 Jean-Claude 12:15: [id number] 00 Pain frequent Pain Mgmt Resolve 2019-01-15 Laura pain d 12-27 12:30:00 Jean-Claude 09:20: [id number] 00 Respiratory dyspnea Respirator Resolve 2019-01-05 Laura present y d 12-27 11:00:00 Jean-Claude 09:20: [id number] 00 Endo/Edgard diabetic Endo/Edgard Resolve 2019-01-05 Laura foot care d 9 11:00:00 Jean-Claude 09:20: [id number] 00 Elimination diarrhea Eliminatio Resolve 2019-01-05 Laura n d 18 11:00:00 Jean-Claude 09:20: [id number] 00 Neuro confusion Neuro/Emot Resolve 2019-01-05 Laura present ion d 12-27 11:00:00 Jean-Claude 09:20: [id number] 00 Neuro anxiety Neuro/Emot Resolve 2019-01-05 Laura present ion d 12-27 11:00:00 Jean-Claude 09:20: [id number] 00 Activity ADL Activity Resolve 2019-01-05 Laura assistance d 12-27 11:00:00 [place] required 09:20: [id number] 00 Activity self-care Activity Resolve 2019-01-05 Laura deficit d 12-27 11:00:00 Jean-Claude 09:20: [id number] 00 Safety fall risk Safety Resolve 2019-01-05 Laura factor d 12-27 11:00:00 Jean-Claude present 09:20: [id number] 00 Medication potential Meds Resolve 2019-01-05 Laura clinically d 12-27 11:00:00 [place] significant 09:20: [id number] medication 00 issue Elimination urinary Eliminatio Resolve 2019-01-05 Laura incontinenc n d 12-29 11:00:00 Jean-Claude e 11:20: [id number] 00 Endo/Edgard knowledge/s Endo/Edgard Resolve 2019-01-10 Laura kill d 01-08 10:00:00 Jean-Claude deficit: pt 11:30: [id number] 00 Endo/Edgard anti-coagul Endo/Edgard Resolve 2019-01-10 Laura ation d 01-08 10:00:00 Jean-Claude therapy 11:30: [id number] 00 Elimination urinary Eliminatio Resolve 2019-01-15 Laura incontinenc n d 01-08 12:30:00 [place] e 11:30: [id number] 00 Safety can be left Safety Resolve 2019-02-16 Laura alone for d 9-30 12:00:00 Jean-Claude only short 11:30: [id number] periods 00 Respiratory dyspnea Respirator Resolve 2018-042019-01-26 Laura present y d 0-02 10:00:00 Jean-Claude 10:00: [id number] 00 Activity ADL Activity Resolve 2018-042019-01-12 Laura assistance d 0-02 11:30:00 [place] required 10:00: [id number] 00 Activity self-care Activity Resolve 2018-042019-01-12 Laura deficit d 0-02 11:30:00 [place] 10:00: [id number] 00 Safety fall risk Safety Resolve 2018-042019-01-12 Laura factor d 0-02 11:30:00 [place] present 10:00: [id number] 00 Medication injectable Meds Resolve 2018-042019-01-17 Laura med d 0-02 09:45:00 [place] assistance 10:00: [id number] required 00 Endo/Edgard knowledge/s Endo/Edgard Resolve 2018-042019-01-15 Laura kill d 0-04 12:30:00 Jean-Claude deficit: pt 11:30: [id number] 00 Endo/Edgard anti-coagul Endo/Edgard Resolve 2018-042019-01-15 Laura ation d 0-04 12:30:00 [place] therapy 11:30: [id number] 00 Elimination constipatio Eliminatio Resolve 2018-042019-01-15 Laura n n d 0-04 12:30:00 [place] 11:30: [id number] 00 Sensory impaired Sensory Resolve 2018-042019-01-15 Krystyna verbal d 0-04 12:30:00 [place] communicati 15:30: [id number] on 00 Sensory impaired Sensory Resolve 2018-042019-01-15 Krystyna hearing d 0-04 12:30:00 [place] 15:30: [id number] 00 Infection s/s of Infection Active 2018-04 Laura infection 0-07 Jean-Claude 12:30: [id number] 00 Sensory impaired Sensory Resolve 2018-042019-01-22 Jonatan verbal d 0-08 11:00:00 Demarco communicflorentino 13:00: PT on 00 [id number] Sensory impaired Sensory Resolve 2018-042019-01-22 Jonatan hearing d 0-08 11:00:00 Demarco, 13:00: PT 00 [id number] Endo/Edgard knowledge/s Endo/Edgard Resolve 2018-042019-02-07 Laura kill d 0-09 11:20:00 Jean-Claude deficit: pt 09:45: [id number] 00 Endo/Edgard anti-coagul Endo/Edgard Resolve 2018-042019-02-07 Laura ation d 0-09 11:20:00 Jean-Claude therapy 09:45: [id number] 00 Elimination urinary Eliminatio Resolve 2018-042019-02-02 Laura incontinenc n d 0-09 11:30:00 [place] e 09:45: [id number] 00 Elimination constipatio Eliminatio Resolve 2018-042019-02-02 Laura n n d 0-16 11:30:00 Jean-Claude 10:00: [id number] 00 Sensory impaired Sensory Resolve 2018-042019-01-31 Jonatan verbal d 0-17 11:10:00 Demarco, communicati 15:00: PT on 00 [id number] Sensory impaired Sensory Resolve 2018-042019-01-31 Jonatan hearing d 0-17 11:10:00 Demarco, 15:00: PT 00 [id number] Pain frequent Pain Mgmt Resolve 2018-042019-02-16 Jonatan pain d 0-23 12:00:00 Demarco, 13:00: PT 00 [id number] Sensory impaired Sensory Unknown 2018-04 Jonatan verbal 0-23 Demarco, communicati 13:00: PT on 00 [id number] Sensory impaired Sensory Unknown 2018-04 Jonatan hearing 0-23 Demarco, 13:00: PT 00 [id number] Respiratory dyspnea Respirator Resolve 2018-042019-02-07 Laura present y d 0-25 11:20:00 Jean-Claude 11:30: [id number] 00 Elimination urinary Eliminatio Resolve 2018-042019-02-07 Laura incontinenc n d 0-28 11:20:00 Jean-Claude e 12:40: [id number] 00 Endo/Edgard knowledge/s Endo/Edgard Resolve 2018-042019-02-19 Laura kill d 1 12:40:00 Jean-Claude deficit: pt 12:30: [id number] 00 Endo/Edgard anti-coagul Endo/Edgard Resolve 2018-042019-02-19 Laura ation d 04-11 12:40:00 Jean-Claude therapy 12:30: [id number] 00 Elimination urinary Eliminatio Resolve 2018-042019-02-16 Laura incontinenc n d 04-11 12:00:00 Jean-Claude e 12:30: [id number] 00 Medication potential Meds Resolve 2018-042019-02-24 Laura clinically d 04-14 09:45:00 [place] significant 12:20: [id number] medication 00 issue Elimination constipatio Eliminatio Resolve 2018-042019-02-16 Laura n n d 04-16 12:00:00 Jean-Claude 11:20: [id number] 00 Elimination urinary Eliminatio Resolve 2018-042019-02-24 Laura incontinenc n d 04-21 09:45:00 [place] e 12:40: [id number] 00 Safety can be left Safety Resolve 2018-042019-02-24 Laura alone for d 04-21 09:45:00 Jean-Claude only short 12:40: [id number] periods 00 Endo/Edgard knowledge/s Endo/Edgard Resolve 2018-042019-02-24 Laura kill d 04-23 09:45:00 Jean-Claude deficit: pt 12:05: [id number] 00 Endo/Edgard anti-coagul Endo/Edgard Resolve 2018-042019-02-24 Laura ation d 04-23 09:45:00 [place] therapy 12:05: [id number] 00 Sensory impaired Sensory Resolve 2018-042019-02-26 Laura verbal d 04-26 13:20:00 Jean-Claude communicati 09:45: [id number] on 00 Sensory impaired Sensory Resolve 2018-042019-02-26 Laura hearing d 04-26 13:20:00 Jean-Claude 09:45: [id number] 00 Endo/Edgard knowledge/s Endo/Edgard Active 2018-04 Laura kill 04-28 [place] deficit: pt 13:20: [id number] 00 Endo/Edgard anti-coagul Endo/Edgard Active 2018-04 Laura ation 04-28 Jean-Claude therapy 13:20: [id number] 00 Elimination urinary Eliminatio Active 2018-04 Laura incontinenc n 04-28 [place] e 13:20: [id number] 00 Safety can be left Safety Active 2018-04 Laura alone for 1-18 [place] only short 13:20: [id number] periods 00 Allergies, Adverse Reactions, Alerts Allergy Name Allergy Status Severity Reaction(s) Onset Inactive Treating Comments Type Date Date Clinician bananas Unknown Active Unknown Reaction 2017-04 Roselyn Unknown 0-10 (Radha) Nithin [id number] keflex Unknown Active Unknown Reaction 2017-04 Roselyn Unknown 0-10 (Radha) Nithin [id number] nuts Unknown Active Unknown Reaction 2017-04 Roselyn Unknown 0-10 (Radha) Nithin [id number] Cipro Medication Active Unknown Reaction 2017-04 Sonia White Name ID Unknown 0-10 metronidazol Base Active Unknown Nausea and 2017-04 Roselyn e Ingredient vomiting 2-20 Guidesylvain [id number] Medications Ordered Filled Start Stop Current Ordering [...] No Shallish 1 puff Unknown 20 20 Jamie DAVID mcg-albuter mcg-albuter ol 100 ol 100 mcg/actuati [...] Unknown mg capsule mg capsule 0-10 06-28 Jamie DAVID Klor-Con Klor-Con No Shallish 1 [...] nded nded release release loperamide loperamide No [place] 1-2 Unknown 2 mg tablet 2 mg [...] pen s pen testosteron testosteron 2017-04 No [place] Unknown Unknown e cypionate e cypionate 06-06 Latanya DAVID 200 mg/mL 200 mg/mL intramuscul intramuscul ar kit ar kit mometasone mometasone 2017-04 No [place] Unknown Unknown 0.1 % 0.1 % 06-06 Latanya DAVID topical topical cream cream finasteride finasteride 2017-04 No [place] Unknown Unknown 5 mg tablet 5 mg tablet 06-06 Latanya DAVID Levemir Levemir 2017-04 2019- No [place] Unknown Unknown FlexTouch FlexTouch 06-06 Latanya DAVID U-100 U-100 Insulin 100 Insulin 100 unit/mL (3 unit/mL (3 mL) mL) subcutaneou subcutaneou s pen s pen Levemir Levemir 2019- No Shallish Unknown Unknown FlexTouch FlexTouch 05-01 [...] Observation Time Observation Value Comments SYSTOLIC mm[Hg] 2019-02-26 18:08:55 132 mm[Hg] mm[Hg] Method: Sit SYSTOLIC mm[Hg] 2018-01-23 18:02:16 122 mm[Hg] mm[Hg] Method: Stand DIASTOLIC mm[Hg] 2019-02-26 18:08:55 76 mm[Hg] mm[Hg] Method: Sit DIASTOLIC mm[Hg] 2018-01-23 18:02:16 60 mm[Hg] mm[Hg] Method: Stand PULSE 2019-02-26 18:08:55 70 /min /min RESP RATE 2019-02-26 18:08:55 18 /min /min TEMP 2019-02-26 18:08:55 98.2 [degF] Procedures This patient has no known procedures. Results This patient has no known results.
--- OUTSIDE RECORDS SUMMARY | 2019-04-11 14:42 | XMS REPORT ---
:1940 Author Organization [facility] Care Team Providers Name Role Phone Unavailable Unavailable Unavailable Problems Condition Condition Condition Status Onset Resolution Last Treating Comments Name Details Category Date Date Treatment Clinician Date Pain frequent Pain Mgmt Resolve 2017-042018-05-08 Roselyn pain d 0-10 08:50:00 (Radha) 11:15: Weller 00 [id number] Cardio edema Cardiovasc Resolve 2017-042018-02-20 Roselyn ular d 0-10 09:50:00 (Radha) 11:15: Weller 00 [id number] Respiratory dyspnea Respirator Resolve 2017-042018-02-15 Roselyn present y d 0-10 10:20:00 (Radha) 11:15: Weller 00 [id number] Endo/Edgard glucose Endo/Edgard Resolve 2017-042018-03-20 Roselyn testing d 0-10 12:30:00 (Radha) dependence 11:15: Weller 00 [id number] Endo/Edgard knowledge/s Endo/Edgard Resolve 2017-042018-03-06 Roselyn kill d 0-10 09:30:00 (Radha) deficit: pt 11:15: Weller 00 [id number] Endo/Edgard anti-coagul Endo/Edgard Resolve 2017-042018-03-20 Roselyn ation d 0-10 12:30:00 (Radha) therapy 11:15: Weller 00 [id number] Endo/Edgard diabetic Endo/Edgard Resolve 2017-042018-03-06 Roselyn foot care d 0-10 09:30:00 (Radha) 11:15: Weller 00 [id number] Sensory impaired Sensory Resolve 2017-042018-03-22 Roselyn hearing d 0-10 09:55:00 (Radha) 11:15: Weller 00 [id number] Integument pressure Integument Resolve 2017-042018-08-21 Roselyn ulcer d 0-10 12:45:00 (Radha) present 11:15: Weller [id number] Integument skin Integument Resolve 2017-042018-03-03 Roselyn integrity d 0-10 09:19:00 (Radha) risk 11:15: Weller [id number] Integument surgical Integument Resolve 2017-042018-03-03 Quality wound d 0-10 09:19:00 Realtime7 present 11:15: 00 Integument other wound Integument Resolve 2017-042018-03-03 Quality present d 0-10 09:19:00 Realtime7 11:15: 00 Elimination urinary Eliminatio Resolve 2017-042018-03-20 Roselyn incontinenc n d 0-10 12:30:00 (Radha) e 11:15: Weller [id number] Neuro confusion Neuro/Emot Resolve 2017-042018-03-22 Roselyn present ion d 0-10 09:55:00 (Radha) 11:15: Weller [id number] Neuro anxiety Neuro/Emot Resolve 2017-042018-03-22 Roselyn present ion d 0-10 09:55:00 (Radha) 11:15: Weller [id number] Neuro impaired Neuro/Emot Resolve 2017-042018-03-22 Roselyn decision-ma ion d 0-10 09:55:00 (Radha) pj 11:15: Weller [id number] Activity ADL Activity Resolve 2017-042018-03-22 Roselyn assistance d 0-10 09:55:00 (Radha) required 11:15: [id number] Safety structural Safety Resolve 2017-042018-03-22 Roselyn barriers d 0-10 09:55:00 (Radha) present 11:15: Weller [id number] Safety fall risk Safety Resolve 2017-042018-03-22 Roselyn factor d 0-10 09:55:00 (Radha) present 11:15: Weller [id number] Safety risk for Safety Resolve 2017-042018-03-22 Roselyn hospitaliza d 0-10 09:55:00 (Radha) tion 11:15: Weller [id number] Safety can be left Safety Resolve 2017-042018-03-22 Roselyn alone for d 0-10 09:55:00 (Radha) only short 11:15: Weller 00 [id number] Medication oral med Meds Resolve 2017-042018-02-06 Roselyn assistance d 0-10 09:15:00 (Radha) required 11:15: Weller [id number] Medication injectable Meds Resolve 2017-042018-02-06 Roselyn med d 0-10 09:15:00 (Radha) assistance 11:15: Weller required 00 [id number] Medication knowledge/s Meds Resolve 2017-042018-02-15 Roselyn kill d 0-10 10:20:00 (Radha) deficit: pt 11:15: Weller 00 [id number] Medication potential Meds Resolve 2017-042018-02-15 Roselyn clinically d 0-10 10:20:00 (Radha) significant 11:15: Weller medication 00 [id number] issue Musculoskel transfer Musculoske Resolve 2017-042018-03-20 Roselyn etal assistance letal d 0-10 12:30:00 (Radha) required 11:15: Weller [id number] Musculoskel requires Musculoske Resolve 2017-042018-03-20 Roselyn etal human letal d 0-10 12:30:00 (Radha) assist to 11:15: Weller leave home 00 [id number] Safety knowledge/s Safety Resolve 2017-042018-03-22 Laura kill d 0-12 09:55:00 Jean-Claude deficit: pt 10:00: [id number] 00 Respiratory knowledge/s Respirator Resolve 2017-042018-02-06 Laura kill y d 0-15 09:15:00 Jean-Claude deficit: cg 10:00: [id number] 00 Respiratory lung sounds Respirator Resolve 2017-042018-02-06 Laura deficit y d 0-15 09:15:00 Suring 10:00: [id number] 00 Sensory impaired Sensory Resolve 2017-042018-03-22 Quality verbal d 0-17 09:55:00 Realtime7 communicati 18:36: on 42 Musculoskel knowledge/s Musculoske Resolve 2017-042018-03-03 Laura etal kill letal d 0-24 09:19:00 Jean-Claude deficit: cg 09:45: [id number] 00 Nutrition knowledge/s Nutrition Resolve 2017-042018-03-03 Laura kill d 0-26 09:19:00 Suring deficit: pt 09:15: [id number] 00 Nutrition nutritional Nutrition Resolve 2017-042018-03-03 Laura restriction d 09:19:00 Suring s 09:15: [id number] 00 Elimination catheter Eliminatio Resolve 2017-042018-03-20 Laura present n d 0 12:30:00 Jean-Claude 09:15: [id number] 00 Elimination constipatio Eliminatio Resolve 2017-042018-03-20 Laura n n d 0 12:30:00 Suring 09:15: [id number] 00 Infection s/s of Infection Resolve 2017-042018-03-22 Laura infection d 0 09:55:00 Jean-Claude 09:30: [id number] 00 Endo/Edgard insulin Endo/Edgard Resolve 2017-042018-03-20 Laura admn d 04-22 12:30:00 Jean-Claude dependence 09:50: [id number] 00 Respiratory dyspnea Respirator Resolve 2017-042018-03-08 Laura present y d 04-24 09:20:00 Jean-Claude 10:07: [id number] 00 Safety cannot be Safety Resolve 2017-042018-03-22 Laura left alone d 04-24 09:55:00 Jean-Claude 10:07: [id number] 00 Cardio edema Cardiovasc Resolve 2017-042018-03-03 Laura ular d 04-26 09:19:00 Jean-Claude 09:51: [id number] 00 Respiratory Incentive Respirator Resolve 2017-042018-03-03 Laura Spirometer y d 04-26 09:19:00 Jean-Claude /Acapella 09:51: [id number] Device 00 treatments in home Endo/Edgard knowledge/s Endo/Edgard Resolve 2017-042018-03-20 Laura kill d 05-08 12:30:00 Suring deficit: pt 09:20: [id number] 00 Nutrition knowledge/s Nutrition Resolve 2017-042018-04-19 Laura kill d 05-08 09:45:00 Jean-Claude deficit: pt 09:20: [id number] 00 Nutrition nutritional Nutrition Resolve 2017-042018-04-19 Laura restriction d 05-08 09:45:00 Jean-Claude s 09:20: [id number] 00 Endo/Edgard diabetic Endo/Edgard Resolve 2017-042018-03-20 Laura foot care d 2- 12:30:00 Jean-Claude 09:20: [id number] 00 Pain frequent Pain Mgmt Unknown 2017-04 Laura pain 2- Suring 12:45: [id number] 00 Respiratory dyspnea Respirator Resolve 2017-042018-03-20 Laura present y d 2 12:30:00 Suring 12:45: [id number] 00 Integument pressure Integument Unknown 2017-04 Laura ulcer 2- Jean-Claude present 12:45: [id number] 00 Integument surgical Integument Resolve 2017-042018-03-24 Laura wound d 2 11:23:00 Jean-Claude present 12:45: [id number] 00 Endo/Edgard diabetic Endo/Edgard Resolve 2017-042018-03-24 Laura foot care d 05-23 11:23:00 Jean-Claude 09:55: [id number] 00 Elimination catheter Eliminatio Resolve 2017-042018-04-19 Laura present n d 05-23 09:45:00 Jean-Claude 09:55: [id number] 00 Safety risk for Safety Resolve 2017-042018-04-19 Laura hospitaliza d 2 09:45:00 Jean-Claude tion 11:23: [id number] 00 Safety can be left Safety Resolve 2017-042018-04-19 Laura alone for d 2- 09:45:00 Jean-Claude only short 11:23: [id number] periods 00 Musculoskel knowledge/s Musculoske Resolve 2017-042018-03-29 Laura etal kill letal d - 09:30:00 Jean-Claude deficit: cg 10:20: [id number] 00 Musculoskel requires Musculoske Resolve 2017-042018-04-12 Laura etal human letal d 2- 09:45:00 Jean-Claude assist to 10:20: [id number] leave home 00 Endo/Edgard diabetic Endo/Edgard Resolve 2017-042018-04-19 Laura foot care d 2- 09:45:00 Jean-Claude 09:30: [id number] 00 Elimination constipatio Eliminatio Resolve 2017-042018-04-12 Laura n n d 05-30 09:45:00 Suring 09:30: [id number] 00 Pain frequent Pain Mgmt Unknown 2017-04 Laura pain 06-06 Jean-Claude 09:45: [id number] 00 Endo/Edgard insulin Endo/Edgard Resolve 2017-042018-04-19 Laura admn d 06-06 09:45:00 Suring dependence 09:45: [id number] 00 Endo/Edgard anti-coagul Endo/Edgard Resolve 2017-042018-04-19 Laura ation d 06-06 09:45:00 Suring therapy 09:45: [id number] 00 Integument surgical Integument Resolve 2017-042018-04-05 Laura wound d 06-06 09:45:00 Suring present 09:45: [id number] 00 Integument skin Integument Resolve 2017-042018-04-05 Laura integrity d 06-06 09:45:00 Jean-Claude risk 09:45: [id number] 00 Integument pressure Integument Unknown 2017-04 Laura ulcer 06-06 Jean-Claude present 09:45: [id number] 00 Elimination UTI within Eliminatio Resolve 2017-042018-04-12 Laura past 14 n d 06-06 09:45:00 Jean-Claude days 09:45: [id number] 00 Activity ADL Activity Resolve 2017-042018-09-15 Laura assistance d 06-06 10:35:00 Jean-Claude required 09:45: [id number] 00 Safety fall risk Safety Resolve 2017-042018-04-19 Laura factor d 06-06 09:45:00 Jean-Claude present 09:45: [id number] 00 Medication potential Meds Resolve 2017-042018-04-19 Laura clinically d 06-06 09:45:00 Jean-Claude significant 09:45: [id number] medication 00 issue Medication oral med Meds Resolve 2017-042018-04-05 Shari assistance d 06-06 09:45:00 Regeczi required 09:45: [id number] 00 Medication injectable Meds Resolve 2017-042018-08-09 Shari med d 06-06 09:20:00 Regeczi assistance 09:45: [id number] required 00 Musculoskel transfer Musculoske Resolve 2017-042018-04-12 Shari etal assistance letal d 06-06 09:45:00 Regeczi required 09:45: [id number] 00 Medication oral med Meds Resolve 2017-042018-04-19 Laura assistance d 06-08 09:45:00 Jean-Claude required 10:00: [id number] 00 Medication injectable Meds Unknown 2017-04 Laura med 06-08 Suring assistance 10:00: [id number] required 00 Sensory impaired Sensory Resolve 2017-042018-04-19 Nima verbal d 06-08 09:45:00 Graves communicati 15:20: [id number] on 00 Sensory impaired Sensory Resolve 2017-042018-04-19 Nima hearing d 06-08 09:45:00 Graves 15:20: [id number] 00 Medication injectable Meds Unknown 2017-04 Nhung med Pérez assistance 14:56: [id number] required 00 Medication injectable Meds Unknown Nima med 04-13 Graves assistance 13:50: [id number] required 00 Elimination constipatio Eliminatio Resolve 2018-04-19 Laura n n d 04-14 09:45:00 Jean-Claude 09:28: [id number] 00 Medication injectable Meds Unknown Laura med 04-17 Suring assistance 10:00: [id number] required 00 Medication injectable Meds Resolve 2018-04-19 Laura med d 04-19 09:45:00 Suring assistance 09:45: [id number] required 00 Endo/Edgard anti-coagul Endo/Edgard Resolve 2018-04-26 Laura ation d 04-21 10:15:00 Jean-Claude therapy 09:45: [id number] 00 Nutrition knowledge/s Nutrition Resolve 2018-04-26 Laura kill d 04-21 10:15:00 Suring deficit: pt 09:45: [id number] 00 Nutrition nutritional Nutrition Resolve 2018-04-26 Laura restriction d 04-21 10:15:00 Jean-Claude s 09:45: [id number] 00 Elimination catheter Eliminatio Resolve 2018-04-26 Laura present n d 04-21 10:15:00 Jean-Claude 09:45: [id number] 00 Elimination constipatio Eliminatio Resolve 2018-04-26 Laura n n d 04-21 10:15:00 Jean-Claude 09:45: [id number] 00 Safety risk for Safety Resolve 2018-04-26 Laura hospitaliza d 1-11 10:15:00 Jean-Claude tion 09:45: [id number] 00 Safety can be left Safety Resolve 2018-04-26 Laura alone for d 1-11 10:15:00 Jean-Claude only short 09:45: [id number] periods 00 Sensory impaired Sensory Resolve 2018-04-26 Nima verbal d 1-11 10:15:00 Graves communicati 14:30: [id number] on 00 Sensory impaired Sensory Resolve 2018-04-26 Nima hearing d 1-11 10:15:00 Graves 14:30: [id number] 00 Sensory impaired Sensory Resolve 2018-04-28 Nima verbal d 1-17 10:20:00 Graves communicati 12:45: [id number] on 00 Sensory impaired Sensory Resolve 2018-04-28 Nima hearing d 1-17 10:20:00 Graves 12:45: [id number] 00 Endo/Edgard anti-coagul Endo/Edgard Resolve 2018-05-24 Laura ation d 1-18 12:30:00 Jean-Claude therapy 10:20: [id number] 00 Safety risk for Safety Active Laura hospitaliza - Suring tion 10:20: [id number] 00 Safety can be left Safety Resolve 2018-05-10 Laura alone for d 1- 13:45:00 Jean-Claude only short 10:10: [id number] Sensory impaired Sensory Resolve 2018-05-10 Jia hearing d 05-05 13:45:00 Hillebrand 13:30: t 00 [id number] Sensory impaired Sensory Resolve 2018-05-10 Jia verbal d 1 13:45:00 Hillebrand communicati 13:30: t on 00 [id number] Elimination catheter Eliminatio Resolve 2018-05-08 Wandy present n d 05-08 08:50:00 ,Kaylee 08:50: 00 Elimination constipatio Eliminatio Resolve 2018-06-28 Wandy n n d 05-08 09:45:00 ,Kaylee 08:50: 00 Safety cannot be Safety Resolve 2018-05-10 Laura left alone d 1- 13:45:00 Suring 08:50: [id number] 00 Elimination catheter Eliminatio Resolve 2018-05-12 Shari present n d 2- 09:30:00 Regeczi 09:30: [id number] 00 Safety can be left Safety Resolve 2018-05-17 Laura alone for d - 10:00:00 Jean-Claude only short 09:30: [id number] periods 00 Elimination urinary Eliminatio Resolve 2018-05-15 Laura incontinenc n d 05-15 08:45:00 Suring e 08:45: [id number] 00 Pain frequent Pain Mgmt Resolve 2018-05-17 Laura pain d 2-06 10:00:00 Suring 10:00: [id number] 00 Respiratory lung sounds Respirator Resolve 2018-05-22 Laura deficit y d 2-06 10:44:00 Jean-Claude 10:00: [id number] 00 Integument pressure Integument Unknown Laura ulcer 2-06 Jean-Claude present 10:00: [id number] 00 Integument skin Integument Resolve 2018-05-17 Laura integrity d 2-06 10:00:00 Suring risk 10:00: [id number] 00 Integument surgical Integument Resolve 2018-05-17 Laura wound d 2-06 10:00:00 Jean-Claude present 10:00: [id number] 00 Activity ADL Activity Unknown 2018- Laura assistance 2-06 Suring required 10:00: [id number] 00 Activity self-care Activity Resolve 2018-05-19 Laura deficit d 2-06 11:15:00 Jean-Claude 10:00: [id number] 00 Safety fall risk Safety Resolve 2018-05-19 Laura factor d 2-06 11:15:00 Suring present 10:00: [id number] 00 Elimination urinary Eliminatio Resolve 2018-05-24 Thornberry incontinenc n d 2- 12:30:00 Kaylee 11:15: 00 Safety can be left Safety Resolve 2018-05-24 Laura alone for d 2-08 12:30:00 Jean-Claude only short 11:15: [id number] periods 00 Safety fall risk Safety Resolve 2018-05-24 Sonia White factor d 2-12 12:30:00 present 09:48: 41 Endo/Edgard glucose Endo/Edgard Resolve 2018-05-24 Laura tolerance d 2-13 12:30:00 Suring problem 12:30: [id number] 00 Respiratory Incentive Respirator Resolve 2018-06-07 Laura Spirometer y d 2-15 12:00:00 Jean-Claude /Acapella 13:40: [id number] Device 00 treatments in home Endo/Edgard anti-coagul Endo/Edgard Resolve 2018-06-12 Laura ation d 2-15 09:30:00 Jean-Claude therapy 13:40: [id number] 00 Elimination urinary Eliminatio Resolve 2018-05-26 Laura incontinenc n d 2-15 13:40:00 Jean-Claude e 13:40: [id number] 00 Safety can be left Safety Resolve 2018-06-07 Laura alone for d 2-15 12:00:00 Jean-Claude only short 13:40: [id number] periods 00 Endo/Edgard glucose Endo/Edgard Resolve 2018-06-07 Cherrise tolerance d 2-22 12:00:00 [place] problem 10:15: [id number] 00 Endo/Edgard insulin Endo/Edgard Resolve 2018-06-12 Cherrise admn d 2-22 09:30:00 [place] dependence 10:15: [id number] 00 Endo/Edgard glucose Endo/Edgard Resolve 2018-06-12 Cherrise testing d 2- 09:30:00 Trixie dependence 10:15: [id number] 00 Safety fall risk Safety Resolve 2018-06-07 Cherrise factor d 2-22 12:00:00 [place] present 10:15: [id number] 00 Musculoskel transfer Musculoske Active Cherrise etal assistance letal 06-02 Trixie required 10:15: [id number] 00 Musculoskel requires Musculoske Active Cherrise etal human letal 2 [place] assist to 10:15: [id number] leave home 00 Elimination urinary Eliminatio Resolve 2018-06-07 Laura incontinenc n d 06-05 12:00:00 Jean-Claude e 12:30: [id number] 00 Activity self-care Activity Resolve 2018-08-14 Laura deficit d 06-05 12:10:00 Suring 12:30: [id number] 00 Elimination urinary Eliminatio Resolve 2018-06-12 Laura incontinenc n d 06-09 09:30:00 Jean-Claude e 09:13: [id number] 00 Safety can be left Safety Resolve 2018-06-12 Laura alone for d 06-09 09:30:00 Jena-Claude only short 09:13: [id number] periods 00 Respiratory Incentive Respirator Resolve 2018-06-14 Laura Spirometer y d 06-12 09:30:00 Jean-Claude /Acapemiguel 09:30: [id number] Device 00 treatments in home Endo/Edgard anti-coagul Endo/Edgard Resolve 2018-06-30 Laura ation d 06-14 09:19:00 Jean-Claude therapy 09:30: [id number] 00 Safety can be left Safety Resolve 2018-06-30 Laura alone for d 06-14 09:19:00 Jean-Claude alejo 09:30: [id number] periods 00 Elimination urinary Eliminatio Resolve 2018-06-19 Laura incontinenc n d 06-16 13:45:00 Jean-Claude e 09:45: [id number] 00 Elimination urinary Eliminatio Resolve 2018-06-28 Laura incontinenc n d 06-23 09:45:00 Jean-Claude e 13:15: [id number] 00 Elimination constipatio Eliminatio Resolve 2018-07-14 Laura n n d 06-30 09:20:00 Suring 09:19: [id number] 00 Endo/Edgard anti-coagul Endo/Edgard Resolve 2018-07-14 Laura ation d 07-03 09:20:00 Jean-Claude therapy 12:49: [id number] 00 Elimination urinary Eliminatio Resolve 2018-07-14 Laura incontinenc n d 07-03 09:20:00 Suring e 12:49: [id number] 00 Safety can be left Safety Resolve 2018-08-18 Laura alone for d 07-07 12:05:00 Jean-Claude only short 12:50: [id number] periods 00 Endo/Edgard glucose Endo/Edgard Resolve 2018-07-14 Shi testing d 07-10 09:20:00 Sorin, dependence 12:30: [id number] 00 Pain frequent Pain Mgmt Resolve 2018-07-14 Laura pain d 07-14 09:20:00 Jean-Claude 09:20: [id number] 00 Integument surgical Integument Resolve 2018-08-13 Laura wound d 07-14 12:50:00 Jean-Claude present 09:20: [id number] 00 Integument skin Integument Resolve 2018-08-13 Laura integrity d 07-14 12:50:00 Suring risk 09:20: [id number] 00 Safety fall risk Safety Resolve 2018-08-18 Laura factor d 07-14 12:05:00 Suring present 09:20: [id number] 00 Endo/Edgard anti-coagul Endo/Edgard Resolve 2018-08-14 Laura ation d 07-17 12:10:00 Jean-Claude therapy 13:00: [id number] 00 Elimination urinary Eliminatio Resolve 2018-07-21 Laura incontinenc n d 07-17 09:25:00 Jean-Claude e 13:00: [id number] 00 Activity ADL Activity Unknown Laura assistance 07-17 Suring required 13:00: [id number] 00 Elimination urinary Eliminatio Resolve 2018-08-14 Laura incontinenc n d 07-24 12:10:00 Suring e 09:27: [id number] 00 Pain frequent Pain Mgmt Resolve 2018 Laura pain d 08-07 09:20:00 Jean-Claude 12:45: [id number] 00 Cardio edema Cardiovasc Resolve 2018 Laura ular d 08-07 09:20:00 Jean-Claude 12:45: [id number] 00 Respiratory dyspnea Respirator Resolve 2018 Laura present y d 08-07 09:20:00 Jean-Claude 12:45: [id number] 00 Endo/Edgard diabetic Endo/Edgard Resolve 2018-08-14 Laura foot care d 08-07 12:10:00 Jean-Claude 12:45: [id number] 00 Nutrition knowledge/s Nutrition Active Laura kill 08-07 Jean-Claude deficit: pt 12:45: [id number] 00 Nutrition nutritional Nutrition Active Laura restriction 08-07 Jean-Claude s 12:45: [id number] 00 Neuro confusion Neuro/Emot Resolve 2018-08-14 Laura present ion d 08-07 12:10:00 Jean-Claude 12:45: [id number] 00 Medication oral med Meds Resolve 2018 Laura assistance d 08-07 09:20:00 Suring required 12:45: [id number] 00 Medication injectable Meds Resolve 2018 Jia med d 08-07 09:20:00 Jerardo assistance 12:45: [id number] required 00 Cardio edema Cardiovasc Resolve 2018-08-23 Laura ular d 08-13 11:15:00 Jean-Claude 12:50: [id number] 00 Respiratory dyspnea Respirator Resolve 2018-08-14 Laura present y d 08-13 12:10:00 Jean-Claude 12:50: [id number] 00 Endo/Edgard anti-coagul Endo/Edgard Resolve 2018-08-28 Luara ation d 08-16 12:00:00 Jean-Claude therapy 12:15: [id number] 00 Elimination urinary Eliminatio Resolve 2018-08-21 Laura incontinenc n d 08-16 12:45:00 Jean-Claude e 12:15: [id number] 00 Sensory impaired Sensory Resolve 2018-08-21 Krystyna verbal d 08-17 12:45:00 Traunstein communicati 14:30: [id number] on 00 Sensory impaired Sensory Resolve 2018-08-21 Krystyna hearing d 08-17 12:45:00 [place] 14:30: [id number] 00 Social financial LILLIAN: Resolve 2019-02-16 Krystyna Services resource Social d 08-17 13:45:00 Tra[place] deficit Services 14:30: [id number] 00 Social knowledge/s LILLIAN: Resolve 2018-08-17 Krystyna Services kill Social d 08-17 14:30:00 Traunstein deficit - Services 14:30: [id number] pt 00 Social knowledge/s LILLIAN: Resolve 2018-08-17 Krystyna Services kill Social d 08-17 14:30:00 Traunstein deficit - Services 14:30: [id number] cg 00 Safety can be left Safety Resolve 2018-09-07 Laura alone for d 5-15 10:00:00 Jean-Claude cruz short 11:15: [id number] periods 00 Social knowledge/s LILLIAN: Active Laura Services kill Social 08-23 Suring deficit - Services 11:15: [id number] pt 00 Elimination urinary Eliminatio Resolve 2018-09-07 Laura incontinenc n d 08-25 10:00:00 Jean-Claude e 11:45: [id number] 00 Sensory impaired Sensory Resolve 2018-09-07 Krystyna verbal d 09-01 [facility] 14[facility]: [id number] on 00 Sensory impaired Sensory Resolve 2018-09-07 Krystyna hearing d 09-01 10:00:00 [facility] 14:45: [id number] 00 Social knowledge/s LILLIAN: Active Krystyna Services kill Social 09-01 Traunstein deficit - Services 14:45: [id number] cg 00 Respiratory dyspnea Respirator Resolve 2018-09-15 Laura present y d 09-07 10:35:00 Jean-Claude 10:00: [id number] 00 Pain frequent Pain Mgmt Resolve 2018-09-11 Laura pain d 09-11 11:50:00 Jean-Claude 11:50: [id number] 00 Cardio hypertensio Cardiovasc Resolve 2018-09-11 Laura n ular d 09-11 11:50:00 Jean-Claude 11:50: [id number] 00 Integument pressure Integument Resolve 2018-09-15 Laura ulcer d 6 10:35:00 Jean-Claude present 11:50: [id number] 00 Integument surgical Integument Resolve 2018-09-15 Laura wound d 6-03 10:35:00 Suring present 11:50: [id number] 00 Integument skin Integument Resolve 2018-09-15 Laura integrity d 09-11 10:35:00 Suring risk 11:50: [id number] 00 Elimination urinary Eliminatio Resolve 2018-09-11 Laura incontinenc n d 09-11 11:50:00 Jean-Claude e 11:50: [id number] 00 Activity ADL Activity Unknown Laura assistance 09-11 Suring required 11:50: [id number] 00 Activity self-care Activity Resolve 2018-09-15 Laura deficit d 09-11 10:35:00 Jean-Claude 11:50: [id number] 00 Safety fall risk Safety Resolve 2018-09-15 Laura factor d 09-11 10:35:00 Suring present 11:50: [id number] 00 Safety can be left Safety Resolve 2018-09-15 Laura alone for d 09-11 10:35:00 Jean-Claude only short 11:50: [id number] periods 00 Endo/Edgard anti-coagul Endo/Edgard Resolve 2018-09-18 Laura ation d 09-15 12:20:00 Suring therapy 10:35: [id number] 00 Elimination urinary Eliminatio Resolve 2018-09-18 Laura incontinenc n d 09-15 12:20:00 Jean-Claude e 10:35: [id number] 00 Elimination constipatio Eliminatio Resolve 2018-09-18 Laura n n d 09-15 12:20:00 Jean-Claude 10:35: [id number] 00 Safety can be left Safety Resolve 2018-09-25 Laura alone for d 610 11:45:00 Jean-Claude only short 12:20: [id number] periods 00 Cardio hypertensio Cardiovasc Resolve 2018-09-21 Laura n ular d 09-21 11:45:00 Jean-Claude 11:45: [id number] 00 Endo/Edgard anti-coagul Endo/Edgard Resolve 2018-09-25 Laura ation d 09-21 11:45:00 Jean-Claude therapy 11:45: [id number] 00 Cardio hypertensio Cardiovasc Resolve 2018-10-02 Laura n ular d 6- 12:05:00 Jean-Claude 11:45: [id number] 00 Elimination urinary Eliminatio Resolve 2018-10-02 Laura incontinenc n d 6 12:05:00 Jean-Claude e 11:45: [id number] 00 Endo/Edgard anti-coagul Endo/Edgard Resolve 2018-10-02 Laura ation d 09-29 12:05:00 Suring therapy 09:45: [id number] 00 Safety can be left Safety Resolve 2018-10-02 Laura alone for d 09-29 12:05:00 Jean-Claude only short 09:45: [id number] 00 Endo/Edgard anti-coagul Endo/Edgard Resolve 2018-10-27 Laura ation d 10-04 11:30:00 Suring therapy 10:10: [id number] 00 Elimination urinary Eliminatio Resolve 2018-10-06 Laura incontinenc n d 10-04 09:10:00 Jean-Claude e 10:10: [id number] 00 Elimination constipatio Eliminatio Resolve 2018-10-06 Laura n n d 10-04 09:10:00 Jean-Claude 10:10: [id number] 00 Safety can be left Safety Resolve 2018-10-06 Laura alone for d 10-04 09:10:00 Jean-Claude only short 10:10: [id number] Sensory impaired Sensory Resolve 2018-10-23 Krystyna verbal d 10-05 11:56:00 [place] communicati 15:00: [id number] on 00 Sensory impaired Sensory Resolve 2018-10-23 Krystyna hearing d 10-05 11:56:00 [place] 15:00: [id number] 00 Elimination urinary Eliminatio Resolve 2018-10-27 Laura incontinenc n d 10-09 11:30:00 Jean-Claude butler 12:15: [id number] 00 Elimination bloody Eliminatio Resolve 2018-10-27 Laura urine n d 10-09 11:30:00 Jean-Claude 12:15: [id number] 00 Safety can be left Safety Resolve 2018-10-23 Laura alone for d 10-09 11:56:00 Jean-Claude only short 12:15: [id number] periods Elimination constipatio Eliminatio Resolve 2018-12-08 Laura n n d 10-16 14:00:00 Jean-Claude 12:35: [id number] 00 Cardio edema Cardiovasc Resolve 2018-10-27 Laura ular d 10-20 11:30:00 Jean-Claude 11:35: [id number] 00 Endo/Edgard knowledge/s Endo/Edgard Resolve 2018-10-27 Laura kill d 10-20 11:30:00 Jean-Claude deficit: pt 11:35: [id number] 00 Sensory impaired Sensory Unknown Jonatan verbal 7-15 Demarco, communicati 13:30: PT on [id number] Sensory impaired Sensory Unknown Jonatan hearing 15 Demarco, 13:30: PT [id number] Safety can be left Safety Resolve 2018-10-27 Laura alone for d 10-25 11:30:00 Jean-Claude cruz short 10:35: [id number] 00 Endo/Edgard glucose Endo/Edgard Resolve 2018-12-11 Cherrise tolerance d 10-30 09:30:00 [place] problem 11:55: [id number] 00 Endo/Edgard insulin Endo/Edgard Resolve 2018-12-13 Cherrise admn d 10-30 11:10:00 Trixie dependence 11:55: [id number] 00 Endo/Edgard glucose Endo/Edgard Resolve 2018-12-13 Cherrise testing d 10-30 11:10:00 [place] dependence 11:55: [id number] 00 Endo/Edgard knowledge/s Endo/Edgard Resolve 2018-12-08 Cherrise kill d 10-30 14:00:00 Trixie deficit: pt 11:55: [id number] 00 Elimination urinary Eliminatio Resolve 2018-12-08 Cherrise urgency n d 10-30 14:00:00 [place] 11:55: [id number] 00 Neuro depressive Neuro/Emot Resolve 2018-12-08 Cherrise feelings ion d 10-30 14:00:00 Trixie present 11:55: [id number] 00 Neuro impaired Neuro/Emot Resolve 2018-12-08 Cherrise decision-ma ion d 10-30 14:00:00 [place] pj 11:55: [id number] 00 Safety fall risk Safety Resolve 2018-12-06 Cherrise factor d 10-30 13:05:00 [place] present 11:55: [id number] 00 Endo/Edgard anti-coagul Endo/Edgard Resolve 2018-12-13 Shi ation d 11-01 11:10:00 Sorin, therapy 12:30: [id number] 00 Respiratory Incentive Respirator Resolve 2018-11-29 Cherrise Spirometer y d 11-03 10:15:00 [place] /Acapella 10:25: [id number] Device 00 treatments in home Elimination urinary Eliminatio Resolve 2018-12-08 Cherrise frequency n d 11-03 14:00:00 [place] 10:25: [id number] 00 Respiratory lung sounds Respirator Resolve 2018-11-29 Cherrise deficit y d 11-06 10:15:00 Trixie 12:05: [id number] 00 Neuro memory Neuro/Emot Resolve 2018-12-08 Cherrise deficit ion d 11-08 14:00:00 Trixie needing 10:30: [id number] supervision 00 Pain frequent Pain Mgmt Resolve 2018-12-06 Shi pain d 11-10 13:05:00 Sorin, 11:00: [id number] 00 Integument pressure Integument Active Shi ulcer 11-10 Sorin, present 11:00: [id number] 00 Integument surgical Integument Active 2018- Shi wound 11-10 Sorin, present 11:00: [id number] 00 Integument skin Integument Active 2018- Shi integrity 11-10 Sorin, risk 11:00: [id number] 00 Elimination urinary Eliminatio Resolve 2018-12-08 Shi incontinenc n d 11-10 14:00:00 Sorin, e 11:00: [id number] 00 Activity self-care Activity Resolve 2018-11-29 Shi deficit d 11-10 10:15:00 Sorin, 11:00: [id number] 00 Activity ADL Activity Resolve 2018-12-08 Shi assistance d 11-10 14:00:00 Sorin, required 11:00: [id number] 00 Pain knowledge/s Pain Mgmt Resolve 2018-12-06 Krystyna kill d 11-16 13:05:00 [place] deficit: cg 15:15: [id number] 00 Respiratory knowledge/s Respirator Resolve 2018-11-29 Krystyna kill y d 11-16 10:15:00 [place] deficit: cg 15:15: [id number] 00 Integument knowledge/s Integument Active Krystyna kill 11-16 [place] deficit: cg 15:15: [id number] 00 Elimination knowledge/s Eliminatio Resolve 2018-12-08 Krystyna kill n d 11-16 14:00:00 [place] deficit: cg 15:15: [id number] 00 Safety knowledge/s Safety Resolve 2018-12-06 Krystyna kill d 11-16 13:05:00 [place] deficit: cg 15:15: [id number] 00 Cardio hypertensio Cardiovasc Resolve 2018-11-29 Lenny jarvis joseph d 11-17 10:15:00 [place] 10:45: [id number] 00 Safety can be left Safety Resolve 2018-12-08 Shi alone for d 11-22 14:00:00 nancy Rowell short 11:00: [id number] periods 00 Sensory impaired Sensory Resolve 2018-12-08 Laura verbal d 11-24 14:00:00 Jean-Claude communicati 09:30: [id number] on 00 Sensory impaired Sensory Resolve 2018-12-08 Laura hearing d 11-24 14:00:00 Jean-Claude 09:30: [id number] 00 Respiratory knowledge/s Respirator Resolve 2018-12-08 Laura kill y d 12-01 14:00:00 Jean-Claude deficit: cg 09:30: [id number] 00 Sensory impaired Sensory Unknown Krystyna verbal 8 [place] communicati 15:00: [id number] on 00 Sensory impaired Sensory Unknown Krystyna hearing 12-08 [place] 15:00: [id number] 00 Respiratory knowledge/s Respirator Resolve 2018-12-13 Laura kill y d 12-11 11:10:00 Jean-Claude deficit: cg 09:30: [id number] 00 Endo/Edgard knowledge/s Endo/Edgard Resolve 2018-12-13 Laura kill d 12-11 11:10:00 [place] deficit: pt 09:30: [id number] 00 Elimination urinary Eliminatio Resolve 2018-12-15 Laura incontinenc n d 12-11 13:10:00 Jean-Claude e 09:30: [id number] 00 Safety can be left Safety Resolve 2018-12-15 Laura alone for d 12-11 13:10:00 Jean-Claude only short 09:30: [id number] 00 Endo/Edgard knowledge/s Endo/Edgard Resolve 2019-01-05 Laura kill d 12-15 11:00:00 Jean-Claude deficit: pt 13:10: [id number] 00 Endo/Edgard anti-coagul Endo/Edgard Resolve 2019-01-05 Laura ation d 12-15 11:00:00 Jean-Claude therapy 13:10: [id number] 00 Elimination urinary Eliminatio Resolve 2018-12-27 Laura incontinenc n d 12-18 09:20:00 Jean-Claude e 12:10: [id number] 00 Safety can be left Safety Resolve 2019-01-05 Laura alone for d 12-18 11:00:00 Jean-Claude only short 12:10: [id number] periods 00 Elimination constipatio Eliminatio Resolve 2019-01-05 Laura n n d 12-20 11:00:00 Jean-Claude 12:15: [id number] 00 Pain frequent Pain Mgmt Resolve 2019-01-15 Laura pain d 12-27 12:30:00 Jean-Claude 09:20: [id number] 00 Respiratory dyspnea Respirator Resolve 2019-01-05 Laura present y d 12-27 11:00:00 Jean-Claude 09:20: [id number] 00 Endo/Edgard diabetic Endo/Edgard Resolve 2019-01-05 Laura foot care d 9 11:00:00 Jean-Claude 09:20: [id number] 00 Elimination diarrhea Eliminatio Resolve 2019-01-05 Laura n d 18 11:00:00 Jean-Claude 09:20: [id number] 00 Neuro confusion Neuro/Emot Resolve 2019-01-05 Laura present ion d 12-27 11:00:00 Jean-Claude 09:20: [id number] 00 Neuro anxiety Neuro/Emot Resolve 2019-01-05 Laura present ion d 12-27 11:00:00 Jean-Claude 09:20: [id number] 00 Activity ADL Activity Resolve 2019-01-05 Laura assistance d 12-27 11:00:00 Suring required 09:20: [id number] 00 Activity self-care Activity Resolve 2019-01-05 Laura deficit d 12-27 11:00:00 Jean-Claude 09:20: [id number] 00 Safety fall risk Safety Resolve 2019-01-05 Laura factor d 12-27 11:00:00 Jean-Claude present 09:20: [id number] 00 Medication potential Meds Resolve 2019-01-05 Laura clinically d 12-27 11:00:00 Suring significant 09:20: [id number] medication 00 issue Elimination urinary Eliminatio Resolve 2019-01-05 Laura incontinenc n d 12-29 11:00:00 Jean-Claude e 11:20: [id number] 00 Endo/Edgard knowledge/s Endo/Edgard Resolve 2019-01-10 Laura kill d 01-08 10:00:00 Jean-Claude deficit: pt 11:30: [id number] 00 Endo/Edgard anti-coagul Endo/Edgard Resolve 2019-01-10 Laura ation d 01-08 10:00:00 Jean-Claude therapy 11:30: [id number] 00 Elimination urinary Eliminatio Resolve 2019-01-15 Laura incontinenc n d 01-08 12:30:00 Suring e 11:30: [id number] 00 Safety can be left Safety Resolve 2019-02-16 Laura alone for d 9-30 12:00:00 Jean-Claude only short 11:30: [id number] periods 00 Respiratory dyspnea Respirator Resolve 2018-042019-01-26 Laura present y d 0-02 10:00:00 Jean-Claude 10:00: [id number] 00 Activity ADL Activity Resolve 2018-042019-01-12 Laura assistance d 0-02 11:30:00 Suring required 10:00: [id number] 00 Activity self-care Activity Resolve 2018-042019-01-12 Laura deficit d 0-02 11:30:00 Suring 10:00: [id number] 00 Safety fall risk Safety Resolve 2018-042019-01-12 Laura factor d 0-02 11:30:00 Suring present 10:00: [id number] 00 Medication injectable Meds Resolve 2018-042019-01-17 Laura med d 0-02 09:45:00 Suring assistance 10:00: [id number] required 00 Endo/Edgard knowledge/s Endo/Edgard Resolve 2018-042019-01-15 Laura kill d 0-04 12:30:00 Jean-Claude deficit: pt 11:30: [id number] 00 Endo/Edgard anti-coagul Endo/Edgard Resolve 2018-042019-01-15 Laura ation d 0-04 12:30:00 Suring therapy 11:30: [id number] 00 Elimination constipatio Eliminatio Resolve 2018-042019-01-15 Laura n n d 0-04 12:30:00 [place]uring 11:30: [id number] 00 Sensory impaired Sensory Resolve 2018-042019-01-15 Krystyna verbal d 0-04 12:30:00 [place] communicati 15:30: [id number] on 00 Sensory impaired Sensory Resolve 2018-042019-01-15 Krystyna hearing d 0-04 12:30:00 [place] 15:30: [id number] 00 Infection s/s of Infection Active 2018-04 Laura infection 0-07 Jean-Claude 12:30: [id number] 00 Sensory impaired Sensory Resolve 2018-042019-01-22 Jonatan verbal d 0-08 11:00:00 Demarco communicflorentino 13:00: PT on 00 [id number] Sensory impaired Sensory Resolve 2018-042019-01-22 Jonatan hearing d 0-08 11:00:00 Demarco, 13:00: PT 00 [id number] Endo/Edgard knowledge/s Endo/Edgard Resolve 2018-042019-02-07 Laura kill d 0-09 11:20:00 Jean-Claude deficit: pt 09:45: [id number] 00 Endo/Edgard anti-coagul Endo/Edgard Resolve 2018-042019-02-07 Laura ation d 0-09 11:20:00 Jean-Claude therapy 09:45: [id number] 00 Elimination urinary Eliminatio Resolve 2018-042019-02-02 Laura incontinenc n d 0-09 11:30:00 Suring e 09:45: [id number] 00 Elimination constipatio Eliminatio Resolve 2018-042019-02-02 Laura n n d 0-16 11:30:00 Jean-Claude 10:00: [id number] 00 Sensory impaired Sensory Resolve 2018-042019-01-31 Jonatan verbal d 0-17 11:10:00 Demarco, communicati 15:00: PT on 00 [id number] Sensory impaired Sensory Resolve 2018-042019-01-31 Jonatan hearing d 0-17 11:10:00 Demarco, 15:00: PT 00 [id number] Pain frequent Pain Mgmt Resolve 2018-042019-02-16 Jonatan pain d 0-23 12:00:00 Demarco, 13:00: PT 00 [id number] Sensory impaired Sensory Unknown 2018-04 Jonatan verbal 0-23 Demarco, communicati 13:00: PT on 00 [id number] Sensory impaired Sensory Unknown 2018-04 Jonatan hearing 0-23 Demarco, 13:00: PT 00 [id number] Respiratory dyspnea Respirator Resolve 2018-042019-02-07 Laura present y d 0-25 11:20:00 Jean-Claude 11:30: [id number] 00 Elimination urinary Eliminatio Resolve 2018-042019-02-07 Laura incontinenc n d 0-28 11:20:00 Jean-Claude e 12:40: [id number] 00 Endo/Edgard knowledge/s Endo/Edgard Resolve 2018-042019-02-19 Laura kill d 1 12:40:00 Jean-Claude deficit: pt 12:30: [id number] 00 Endo/Edgard anti-coagul Endo/Edgard Resolve 2018-042019-02-19 Laura ation d 04-11 12:40:00 Jean-Claude therapy 12:30: [id number] 00 Elimination urinary Eliminatio Resolve 2018-042019-02-16 Laura incontinenc n d 04-11 12:00:00 Jean-Claude e 12:30: [id number] 00 Medication potential Meds Resolve 2018-042019-02-24 Laura clinically d 04-14 09:45:00 Suring significant 12:20: [id number] medication 00 issue Elimination constipatio Eliminatio Resolve 2018-042019-02-16 Laura n n d 04-16 12:00:00 Jean-Claude 11:20: [id number] 00 Elimination urinary Eliminatio Resolve 2018-042019-02-24 Laura incontinenc n d 04-21 09:45:00 Suring e 12:40: [id number] 00 Safety can be left Safety Resolve 2018-042019-02-24 Laura alone for d 04-21 09:45:00 Jean-Claude only short 12:40: [id number] periods 00 Endo/Edgard knowledge/s Endo/Edgard Resolve 2018-042019-02-24 Laura kill d 04-23 09:45:00 Jean-Claude deficit: pt 12:05: [id number] 00 Endo/Edgard anti-coagul Endo/Edgard Resolve 2018-042019-02-24 Laura ation d 04-23 09:45:00 Suring therapy 12:05: [id number] 00 Sensory impaired Sensory Resolve 2018-042019-02-26 Laura verbal d 04-26 13:20:00 Jean-Claude communicati 09:45: [id number] on 00 Sensory impaired Sensory Resolve 2018-042019-02-26 Laura hearing d 04-26 13:20:00 Jean-Claude 09:45: [id number] 00 Endo/Edgard knowledge/s Endo/Edgard Resolve 2018-042019-02-28 Laura kill d 04-28 11:15:00 Jean-Claude deficit: pt 13:20: [id number] 00 Endo/Edgard anti-coagul Endo/Edgard Resolve 2018-042019-02-28 Laura ation d 04-28 11:15:00 Jean-Claude therapy 13:20: [id number] 00 Elimination urinary Eliminatio Active 2018-04 Laura incontinenc n -18 Suring e 13:20: [id number] 00 Safety can be left Safety Active 2018-04 Laura alone for -18 Suring only short 13:20: [id number] periods 00 Allergies, Adverse Reactions, Alerts Allergy Name Allergy Status Severity Reaction(s) Onset Inactive Treating Comments Type Date Date Clinician bananas Unknown Active Unknown Reaction 2017-04 Roselyn Unknown 0-10 (Radha) Nithin [id number] keflex Unknown Active Unknown Reaction 2017-04 Roselyn Unknown 0-10 (Radha) Nithin [id number] nuts Unknown Active Unknown Reaction 2017-04 Roselyn Unknown 0-10 (Radha) Nithin [id number] Cipro Medication Active Unknown Reaction 2017-04 Sonia Quinn Name ID Unknown 0-10 metronidazol Base Active Unknown Nausea and 2017-04 Roselyn e Ingredient vomiting 2-20 Jordan [id number] Medications Ordered Filled Start Stop Current Ordering [...] nded nded release release loperamide loperamide No [place] 1-2 Unknown 2 mg tablet 2 mg [...] pen s pen testosteron testosteron 2017-04 No [place] Unknown Unknown e cypionate e cypionate 06-06 Latanya DAVID 200 mg/mL 200 mg/mL intramuscul intramuscul ar kit ar kit mometasone mometasone 2017-04 No [place] Unknown Unknown 0.1 % 0.1 % 06-06 Latanya DAVID topical topical cream cream finasteride finasteride 2017-04 No [place] Unknown Unknown 5 mg tablet 5 mg tablet 06-06 Latanya DAVID Levemir Levemir 2017-04- No [place] Unknown Unknown FlexTouch FlexTouch 06-06 Latanya DAVID [...] Observation Time Observation Value Comments SYSTOLIC mm[Hg] 2019-02-28 18:08:57 128 mm[Hg] mm[Hg] Method: Sit SYSTOLIC mm[Hg] 2018-01-23 18:02:16 122 mm[Hg] mm[Hg] Method: Stand DIASTOLIC mm[Hg] 2019-02-28 18:08:57 78 mm[Hg] mm[Hg] Method: Sit DIASTOLIC mm[Hg] 2018-01-23 18:02:16 60 mm[Hg] mm[Hg] Method: Stand PULSE 2019-02-28 18:08:57 64 /min /min RESP RATE 2019-02-28 18:08:57 16 /min /min TEMP 2019-02-28 18:08:57 98.2 [degF] Procedures This patient has no known procedures. Results This patient has no known results.
[2019-04-11 15:50] VITALS: BP 161/78
== END 2019-04-11 15:49 | disposition home or self-care (01) ==
LOC: ED 12:51
DX: L97.319 Non-pressure chronic ulcer of right ankle with unspecified severity (principal); L97.419 Non-pressure chronic ulcer of right heel and midfoot with unspecified severity; L97.919 Non-pressure chronic ulcer of unspecified part of right lower leg with unspecified severity; B95.62 Methicillin resistant Staphylococcus aureus infection as the cause of diseases classified elsewhere; Z87.891 Personal history of nicotine dependence; Z79.01 Long term (current) use of anticoagulants; E03.9 Hypothyroidism, unspecified; I25.10 Atherosclerotic heart disease of native coronary artery without angina pectoris; I10 Essential (primary) hypertension; E78.00 Pure hypercholesterolemia, unspecified; J44.9 Chronic obstructive pulmonary disease, unspecified
CPT/HCPCS: 36415; 80053; 85025; 86141; 96361; 96365; 99283

== ENCOUNTER 2020-03-09 19:35 | Inpatient (IN) ==
[2020-03-09 22:59] LABS: ABS Basophils 0.1 10^3/ul (0-0.2); ABS Eosinophils 0.1 10^3/ul (0-0.6); ABS Lymphocytes 0.5 10^3/ul (1.0-4.8); ABS Monocytes 0.6 10^3/ul (0-0.8); ABS Neutrophils 5.9 10^3/ul (1.5-7.7); Eosinophil % 0.9 %; Hematocrit 35 % (42-52); Hemoglobin 11.2 g/dL (14.0-18.0); Lymphocyte % 6.6 %; Mean Corpuscular HGB Conc 32 g/dL (31-36); Mean Corpuscular Hemoglobin 28 pg (27-31); Mean Corpuscular Volume 88 fL (80-94); Mean Platelet Volume 6.9 fL (7.4-10.4); Platelet Count 221 10^3/uL (150-450); Red Blood Count 4.03 10^6 /uL (4.18-5.48); Red Cell Distribution Width 18 % (10-15); White Blood Count 7.1 10^3/uL (3.5-10.8)
[2020-03-09 23:25] LABS: Albumin 3.5 g/dL (3.2-5.2); Albumin/Globulin Ratio 1.5 (1-3); BUN/Creatinine Ratio 14.2 (8-20); C Reactive Protein 28.9 mg/L (<8.01); Calcium 8.7 mg/dL (8.6-10.3); EGFR African American 75.9 (>60); EGFR Non-African American 62.8 (>60); Globulin 2.4 g/dL (2-4); Potassium 3.7 mmol/L (3.5-5.0); Total Bilirubin 0.7 mg/dL (0.2-1.0); Total Protein 5.9 g/dL (6.4-8.9)
[2020-03-09] MEDS ORDERED: Sulfamethox/Trimethoprim DS TAB 800/160 mg PO ONE (23:46)
[2020-03-09] MEDS ORDERED: Bacitracin OINTMENT TUBE TOPICAL ONE (23:53)
[2020-03-10] MEDS ORDERED: Polyethylene Glycol 3350 17 GM PACKET PO PRN (01:13)
[2020-03-10] MEDS ORDERED: Ammonium Lactate 12% 1 APPLIC TUBE TOPICAL PRN (01:13)
[2020-03-10] MEDS ORDERED: Dextrose 50% Syringe 50 ml 25 GM/50 ML SYRINGE IV PUSH PRN (01:13)
[2020-03-10] MEDS ORDERED: Vancomycin per Pharmacy 1 EA NOTE FOLLOW UP PRN (03:12)
[2020-03-10] MEDS: cefTRIAXone 1 gm/50 mL NS BAG 1 GM/50 ML BAG IVPB SCH (03:42)
[2020-03-10] MEDS: metroNIDAZOLE IV 500 MG/100ML 500 MG/100 ML BAG IVPB SCH ×2 (04:29→12:00)
[2020-03-10] MEDS ORDERED: Vancomycin 1,750 MG in NS 0.9% 500 ml BAG 500 ML IVPB ONE (05:00)
[2020-03-10 07:02] LABS: Urine Appearance Cloudy; Urine Bilirubin Negative (Negative); Urine Blood 3+ (Negative); Urine Color Yellow; Urine Glucose Negative (Negative); Urine Ketones Negative (Negative); Urine Nitrite Negative (Negative); Urine Protein 1+(30 mg/dL) (Negative); Urine Specific Gravity 1.017 (1.010-1.030); Urine Urobilinogen Positive (Negative)
[2020-03-10 07:23] LABS: Urine Bacteria Absent (Absent); Urine Red Blood Cell 3+(>10/hpf) (Absent); Urine White Blood Cell 3+(>20/hpf) (Absent)
[2020-03-10] MEDS: CMC:Rosuvastatin 20 mg TAB (NF) PO SCH (09:24)
[2020-03-10] MEDS: Morphine ER 30 mg TAB ** extended release PO SCH ×2 (09:25→20:28)
[2020-03-10] MEDS: Pentoxifylline CR 400 mg TAB 400 MG PO SCH ×3 (09:25→20:27)
[2020-03-10] MEDS: Nystatin TOP POWDER 15 GM BTL TOPICAL SCH ×2 (09:26→20:26)
[2020-03-10] MEDS: Triamcinolone 0.025% OINT 15 GM TUBE TOPICAL SCH ×2 (09:26→20:28)
[2020-03-10] MEDS: Sucralfate 1 gm SUSP 1 GM/10 ML UDC PO SCH ×2 (16:27→20:26)
[2020-03-11] MEDS: cefTRIAXone 1 gm/50 mL NS BAG 1 GM/50 ML BAG IVPB SCH (03:23)
[2020-03-11] MEDS ORDERED: Vancomycin 1,500 MG in NS 0.9% 250 ml 250 ML IVPB ONE (04:30)
[2020-03-11 06:18] LABS: ABS Basophils 0.1 10^3/ul (0-0.2); ABS Eosinophils 0.2 10^3/ul (0-0.6); ABS Lymphocytes 0.8 10^3/ul (1.0-4.8); ABS Monocytes 0.5 10^3/ul (0-0.8); ABS Neutrophils 2.8 10^3/ul (1.5-7.7); Eosinophil % 4.7 %; Hematocrit 31 % (42-52); Hemoglobin 9.9 g/dL (14.0-18.0); Lymphocyte % 17.7 %; Mean Corpuscular HGB Conc 32 g/dL (31-36); Mean Corpuscular Hemoglobin 28 pg (27-31); Mean Corpuscular Volume 87 fL (80-94); Mean Platelet Volume 6.9 fL (7.4-10.4); Nucleated Red Blood Cells % 0.1; Platelet Count 187 10^3/uL (150-450); Red Blood Count 3.58 10^6 /uL (4.18-5.48); Red Cell Distribution Width 17 % (10-15); White Blood Count 4.3 10^3/uL (3.5-10.8)
[2020-03-11 06:28] LABS: BUN/Creatinine Ratio 11.4 (8-20); Calcium 7.7 mg/dL (8.6-10.3); EGFR African American 75.2 (>60); EGFR Non-African American 62.1 (>60); Potassium 3.5 mmol/L (3.5-5.0)
[2020-03-11] MEDS: Sucralfate 1 gm SUSP 1 GM/10 ML UDC PO SCH ×4 (08:21→21:52)
[2020-03-11] MEDS: CMC:Rosuvastatin 20 mg TAB (NF) PO SCH (08:22)
[2020-03-11] MEDS: Pentoxifylline CR 400 mg TAB 400 MG PO SCH ×3 (08:23→21:38)
[2020-03-11] MEDS: Morphine ER 30 mg TAB ** extended release PO SCH ×2 (08:24→21:38)
[2020-03-11] MEDS: Nystatin TOP POWDER 15 GM BTL TOPICAL SCH ×2 (10:26→21:47)
[2020-03-11] MEDS: Triamcinolone 0.025% OINT 15 GM TUBE TOPICAL SCH ×2 (10:27→21:40)
[2020-03-12] MEDS: cefTRIAXone 1 gm/50 mL NS BAG 1 GM/50 ML BAG IVPB SCH (03:37)
[2020-03-12] MEDS: Sucralfate 1 gm SUSP 1 GM/10 ML UDC PO SCH ×2 (07:28→11:54)
[2020-03-12 08:12] VITALS: BP 124/56
[2020-03-12] MEDS: Pentoxifylline CR 400 mg TAB 400 MG PO SCH (09:16)
[2020-03-12] MEDS: Morphine ER 30 mg TAB ** extended release PO SCH (09:17)
[2020-03-12] MEDS: CMC:Rosuvastatin 20 mg TAB (NF) PO SCH (09:22)
[2020-03-12] MEDS: Nystatin TOP POWDER 15 GM BTL TOPICAL SCH (09:24)
[2020-03-12] MEDS: Triamcinolone 0.025% OINT 15 GM TUBE TOPICAL SCH (09:25)
== END 2020-03-12 11:45 | DRG 603 ==
LOC: SSU 19:35 → ED 19:35 → SSU 03-10 09:17
PROVIDERS: ADMIT Hospitalist; ATTEND Student in an Organized Health Care Education/Training Program

== ENCOUNTER 2020-05-04 08:45 | Inpatient (IN) ==
[2020-05-04 09:52] LABS: ABS Basophils 0.1 10^3/ul (0-0.2); ABS Eosinophils 0.1 10^3/ul (0-0.6); ABS Lymphocytes 0.3 10^3/ul (1.0-4.8); ABS Monocytes 0.6 10^3/ul (0-0.8); ABS Neutrophils 7.8 10^3/ul (1.5-7.7); Eosinophil % 1.1 %; Hematocrit 34 % (42-52); Hemoglobin 10.6 g/dL (14.0-18.0); Lymphocyte % 3.8 %; Mean Corpuscular HGB Conc 32 g/dL (31-36); Mean Corpuscular Hemoglobin 28 pg (27-31); Mean Corpuscular Volume 87 fL (80-94); Mean Platelet Volume 6.7 fL (7.4-10.4); Platelet Count 413 10^3/uL (150-450); Red Blood Count 3.87 10^6 /uL (4.18-5.48); Red Cell Distribution Width 16 % (10-15); White Blood Count 8.9 10^3/uL (3.5-10.8)
[2020-05-04 09:58] LABS: Activated Partial Thrombo Time 29.1 seconds (26.0-38.0); INR 1.28 (0.82-1.09)
[2020-05-04 10:05] LABS: ALT 27 U/L (7-52); AST 40 U/L (13-39); Albumin 3.1 g/dL (3.2-5.2); Albumin/Globulin Ratio 0.9 (1-3); Alkaline Phosphatase 80 U/L (34-104); Ammonia 44 mcmol/L (16-53); Anion Gap 8 mmol/L (2-11); BUN/Creatinine Ratio 15.5 (8-20); Blood Urea Nitrogen 17 mg/dL (6-24); CO2 Carbon Dioxide 27 mmol/L (22-32); Calcium 9.1 mg/dL (8.6-10.3); Chloride 100 mmol/L (101-111); EGFR African American 78.3 (>60); EGFR Non-African American 64.7 (>60); Globulin 3.4 g/dL (2-4); Glucose 121 mg/dL (70-100); Potassium 4.4 mmol/L (3.5-5.0); Sodium 135 mmol/L (135-145); Total Protein 6.5 g/dL (6.4-8.9)
[2020-05-04 10:10] LABS: BNP 157 pg/mL (<=100)
[2020-05-04] MEDS ORDERED: Piperacillin/Tazobac ADVAN 4.5 GM in NS 0.9% 100 ml BAG 100 ML IV ONE (10:16)
[2020-05-04 10:26] LABS: Troponin I 0.03 ng/mL (<0.03)
[2020-05-04] MEDS ORDERED: Zosyn 3.375 GM IV - ED ONCE IV ONE (10:30)
[2020-05-04 11:05] LABS: Influenza A Molecular Negative (Negative); Influenza B Molecular Negative (Negative)
[2020-05-04 11:10] LABS: TSH Ultra Thyroid Stim Horm 24.99 mcIU/mL (0.34-5.60)
[2020-05-04 11:12] LABS: Free T4 1.05 ng/dL (0.61-1.12)
[2020-05-04] MEDS ORDERED: NS 0.9% 500 ml BAG 500 ML IV ONE (12:00)
[2020-05-04] MEDS ORDERED: Naloxone 0.4 mg VIAL 0.4 mg/ml 1 ml VIAL IV PUSH ONE (12:10)
[2020-05-04] MEDS ORDERED: Ondansetron 4 mg VIAL 2 MG/ML 2 ml VIAL IV ONE (12:23)
[2020-05-04] MEDS ORDERED: NS 0.9% 1000 ml BAG 1,000 ML IV ONE ×2 (13:08→15:22)
[2020-05-04] MEDS ORDERED: Azithromycin 500 mg/250 ml NS 500 MG/250 ML BAG IVPB ONE (13:13)
[2020-05-04] MEDS ORDERED: Linezolid 600 MG IVPREMIX(*) 600 MG/300 ML BAG IVPB ONE (13:14)
[2020-05-04 13:22] LABS: Troponin I 0.04 ng/mL (<0.03)
[2020-05-04 14:24] LABS: Urine Appearance Clear; Urine Bilirubin Negative (Negative); Urine Blood Negative (Negative); Urine Color Yellow; Urine Glucose Negative (Negative); Urine Ketones Negative (Negative); Urine Nitrite Negative (Negative); Urine Protein Negative (Negative); Urine Specific Gravity 1.015 (1.010-1.030); Urine Urobilinogen Positive (Negative)
[2020-05-04] MEDS ORDERED: Zosyn per Pharmacy NOTE FOLLOW UP SCH (15:00)
[2020-05-04] MEDS ORDERED: Dextrose 50% Syringe 50 ml 25 GM/50 ML SYRINGE IV PUSH PRN (15:05)
[2020-05-04] MEDS ORDERED: ZOSYN 3.375 GM Q8H per EXTENDED INFUSION IV SCH (17:00)
[2020-05-04] MEDS ORDERED: methylPREDNISolone 125 mg 2 ML VIAL IV ONE (18:15)
[2020-05-04] MEDS ORDERED: Albuterol/Ipratropium NEB.SOL (2.5/0.5 MG) 3 ML NEB.SOLN INH PRN (18:44)
[2020-05-04 19:31] LABS: Troponin I 0.03 ng/mL (<0.03)
[2020-05-04] MEDS: DOXYcycline 100 MG in NS 0.9% 250 ml 250 ML IVPB SCH (21:25)
[2020-05-04] MEDS: ZOSYN 3.375 GM Q8H per EXTENDED INFUSION IV SCH (22:30)
[2020-05-05 04:28] LABS: ABS Lymphocytes 0.1 10^3/ul (1.0-4.8); ABS Monocytes 0.1 10^3/ul (0-0.8); ABS Neutrophils 5.5 10^3/ul (1.5-7.7); Hematocrit 28 % (42-52); Lymphocyte % 2.4 %; Mean Corpuscular HGB Conc 32 g/dL (31-36); Mean Corpuscular Hemoglobin 28 pg (27-31); Mean Corpuscular Volume 87 fL (80-94); Mean Platelet Volume 6.7 fL (7.4-10.4); Nucleated Red Blood Cells % 0.2; Platelet Count 320 10^3/uL (150-450); Red Blood Count 3.26 10^6 /uL (4.18-5.48); Red Cell Distribution Width 16 % (10-15); White Blood Count 5.7 10^3/uL (3.5-10.8)
[2020-05-05 04:43] LABS: BUN/Creatinine Ratio 18.6 (8-20); Calcium 8.6 mg/dL (8.6-10.3); EGFR African American 85.5 (>60); EGFR Non-African American 70.6 (>60); Potassium 4.4 mmol/L (3.5-5.0)
[2020-05-05] MEDS ORDERED: Levothyroxine 100 MCG/5 ML VIAL IV SCH (06:00)
[2020-05-05] MEDS ORDERED: Linezolid 600 MG IVPREMIX(*) 600 MG/300 ML BAG IVPB SCH (06:00)
[2020-05-05] MEDS: ZOSYN 3.375 GM Q8H per EXTENDED INFUSION IV SCH ×3 (06:24→21:50)
[2020-05-05] MEDS ORDERED: methylPREDNISolone SOD 40 mg/ml 1 ml VIAL IV SCH (08:00)
[2020-05-05] MEDS ORDERED: Pantoprazole VIAL 40 MG VIAL IV SCH (09:00)
[2020-05-05] MEDS ORDERED: NS 0.9% 250 ml 250 ML ONE (09:36)
[2020-05-05] MEDS: DOXYcycline 100 MG in NS 0.9% 250 ml 250 ML IVPB SCH ×2 (09:37→20:13)
[2020-05-05] MEDS: Morphine ER 15 mg TAB ** extended release PO SCH (21:47)
[2020-05-06] MEDS ORDERED: Dextran 70/Hypromellose Tears Eye Drops 15 ml BTL (for Artificials Tears) BOTH EYES PRN (03:10)
[2020-05-06] MEDS: ZOSYN 3.375 GM Q8H per EXTENDED INFUSION IV SCH ×2 (05:22→14:05)
[2020-05-06 07:53] LABS: ABS Eosinophils 0.1 10^3/ul (0-0.6); ABS Lymphocytes 0.6 10^3/ul (1.0-4.8); ABS Monocytes 0.6 10^3/ul (0-0.8); ABS Neutrophils 6.7 10^3/ul (1.5-7.7); Eosinophil % 0.7 %; Hematocrit 28 % (42-52); Hemoglobin 8.8 g/dL (14.0-18.0); Lymphocyte % 7.2 %; Mean Corpuscular HGB Conc 32 g/dL (31-36); Mean Corpuscular Hemoglobin 28 pg (27-31); Mean Corpuscular Volume 86 fL (80-94); Mean Platelet Volume 6.7 fL (7.4-10.4); Platelet Count 386 10^3/uL (150-450); Red Blood Count 3.21 10^6 /uL (4.18-5.48); Red Cell Distribution Width 15 % (10-15); White Blood Count 7.9 10^3/uL (3.5-10.8)
[2020-05-06 08:07] LABS: BUN/Creatinine Ratio 22.6 (8-20); Calcium 8.6 mg/dL (8.6-10.3); EGFR African American 81.8 (>60); EGFR Non-African American 67.6 (>60)
[2020-05-06] MEDS: Morphine ER 15 mg TAB ** extended release PO SCH ×2 (08:07→22:22)
[2020-05-06] MEDS: DOXYcycline 100 MG in NS 0.9% 250 ml 250 ML IVPB SCH ×2 (10:56→22:17)
[2020-05-06 11:53] LABS: TSH Ultra Thyroid Stim Horm 18.3 mcIU/mL (0.34-5.60)
[2020-05-06 11:59] LABS: C Reactive Protein 41.6 mg/L (<8.01)
[2020-05-06] MEDS: cefTRIAXone 1 gm/50 mL NS BAG 1 GM/50 ML BAG IVPB SCH (22:11)
[2020-05-07] MEDS ORDERED: Albuterol HFA INHALER 8 gm MDI INH SCH (03:00)
[2020-05-07] MEDS: Albuterol HFA INHALER 8 gm MDI INH PRN (03:16)
[2020-05-07 06:31] LABS: Hematocrit 27 % (42-52); Hemoglobin 8.5 g/dL (14.0-18.0); Mean Corpuscular HGB Conc 32 g/dL (31-36); Mean Corpuscular Hemoglobin 27 pg (27-31); Mean Corpuscular Volume 86 fL (80-94); Mean Platelet Volume 6.7 fL (7.4-10.4); Platelet Count 353 10^3/uL (150-450); Red Blood Count 3.13 10^6 /uL (4.18-5.48); Red Cell Distribution Width 15 % (10-15); White Blood Count 5.5 10^3/uL (3.5-10.8)
[2020-05-07 06:50] LABS: BUN/Creatinine Ratio 19.2 (8-20); Calcium 8.3 mg/dL (8.6-10.3); EGFR African American 88.5 (>60); EGFR Non-African American 73.1 (>60); Potassium 3.9 mmol/L (3.5-5.0)
[2020-05-07] MEDS: Morphine ER 15 mg TAB ** extended release PO SCH ×2 (09:26→20:08)
[2020-05-07] MEDS: CMC:Rosuvastatin 20 mg TAB (NF) PO SCH (09:26)
[2020-05-07] MEDS: DOXYcycline 100 MG in NS 0.9% 250 ml 250 ML IVPB SCH ×2 (09:27→20:09)
[2020-05-07] MEDS: Sucralfate 1 gm SUSP 1 GM/10 ML UDC PO SCH ×2 (17:19→20:07)
[2020-05-07] MEDS ORDERED: Insulin GLARGINE 100 un/ml 10 ml VIAL SUBCUT SCH (21:00)
[2020-05-07] MEDS: Metoclopramide 5 MG/ML VIAL (10 mg) IV PRN (21:51)
[2020-05-07] MEDS: cefTRIAXone 1 gm/50 mL NS BAG 1 GM/50 ML BAG IVPB SCH (21:52)
[2020-05-08] MEDS: Albuterol HFA INHALER 8 gm MDI INH PRN (00:14)
[2020-05-08 05:52] LABS: Hematocrit 28 % (42-52); Hemoglobin 8.8 g/dL (14.0-18.0); Mean Corpuscular HGB Conc 32 g/dL (31-36); Mean Corpuscular Hemoglobin 27 pg (27-31); Mean Corpuscular Volume 85 fL (80-94); Mean Platelet Volume 6.4 fL (7.4-10.4); Platelet Count 347 10^3/uL (150-450); Red Blood Count 3.24 10^6 /uL (4.18-5.48); Red Cell Distribution Width 15 % (10-15); White Blood Count 5.6 10^3/uL (3.5-10.8)
[2020-05-08] MEDS: Sucralfate 1 gm SUSP 1 GM/10 ML UDC PO SCH ×2 (08:10→12:47)
[2020-05-08] MEDS: Metoclopramide 5 MG/ML VIAL (10 mg) IV PRN (08:11)
[2020-05-08 08:12] LABS: BUN/Creatinine Ratio 16.1 (8-20); Calcium 8.4 mg/dL (8.6-10.3); EGFR African American 102.7 (>60); EGFR Non-African American 84.9 (>60); Magnesium 1.8 mg/dL (1.9-2.7); Potassium 3.8 mmol/L (3.5-5.0)
[2020-05-08] MEDS ORDERED: Magnesium Sulfate 2 gm BAG 2 GM/50 ML BAG IVPB ONE (08:51)
[2020-05-08] MEDS: DOXYcycline 100 MG in NS 0.9% 250 ml 250 ML IVPB SCH (10:05)
[2020-05-08] MEDS: Morphine ER 15 mg TAB ** extended release PO SCH (10:13)
[2020-05-08] MEDS: CMC:Rosuvastatin 20 mg TAB (NF) PO SCH (10:13)
[2020-05-08 12:40] VITALS: BP 136/66
[2020-05-08] MEDS ORDERED: Mometasone/Formoter 100/5 MDI INH SCH (21:00)
== END 2020-05-08 17:53 | DRG 193 ==
LOC: ED 08:45 → ICU 13:42 → MEDTELE 05-05 15:41
PROVIDERS: ADMIT Internal Medicine; ATTEND Internal Medicine

== ENCOUNTER 2020-09-10 11:01 | Inpatient (IN) ==
[2020-09-10 11:55] LABS: ABS Eosinophils 0.1 10^3/ul (0-0.6); ABS Lymphocytes 0.6 10^3/ul (1.0-4.8); ABS Monocytes 0.7 10^3/ul (0-0.8); Eosinophil % 1.4 %; Hematocrit 39 % (42-52); Lymphocyte % 6.2 %; Mean Corpuscular HGB Conc 33 g/dL (31-36); Mean Corpuscular Hemoglobin 29 pg (27-31); Mean Corpuscular Volume 88 fL (80-94); Mean Platelet Volume 7.6 fL (7.4-10.4); Platelet Count 195 10^3/uL (150-450); Red Blood Count 4.47 10^6 /uL (4.18-5.48); Red Cell Distribution Width 16 % (10-15); White Blood Count 9.5 10^3/uL (3.5-10.8)
[2020-09-10 12:12] LABS: ALT 23 U/L (7-52); Albumin/Globulin Ratio 1.2 (1-3); Alkaline Phosphatase 44 U/L (35-149); Blood Urea Nitrogen 31 mg/dL (6-24); CO2 Carbon Dioxide 28 mmol/L (22-32); Calcium 9.3 mg/dL (8.6-10.3); Chloride 102 mmol/L (101-111); EGFR African American 58.2 (>60); EGFR Non-African American 48.1 (>60); Globulin 3.3 g/dL (2-4); Glucose 219 mg/dL (70-100); Sodium 137 mmol/L (135-145); Total Protein 7.3 g/dL (6.4-8.9)
[2020-09-10 12:13] LABS: Troponin I 0.01 ng/mL (<0.03)
[2020-09-10 12:22] LABS: Urine Appearance Clear; Urine Bilirubin Negative (Negative); Urine Blood Negative (Negative); Urine Color Yellow; Urine Glucose 1+(50 mg/dL) (Negative); Urine Ketones Negative (Negative); Urine Nitrite Negative (Negative); Urine Protein 1+(30 mg/dL) (Negative); Urine Specific Gravity 1.018 (1.002-1.030); Urine Urobilinogen Negative (Negative)
[2020-09-10 12:26] LABS: Urine Bacteria Absent (Absent); Urine Red Blood Cell Trace(0-2/hpf) (Absent); Urine White Blood Cell Trace(0-5/hpf) (Absent)
[2020-09-10 12:53] LABS: TSH Ultra Thyroid Stim Horm 31.13 mcIU/mL (0.34-5.60)
[2020-09-10 13:23] LABS: Anion Gap 7 mmol/L (2-11)
[2020-09-10 14:28] LABS: Free T4 1.13 ng/dL (0.61-1.12)
[2020-09-10 14:36] LABS: Potassium Redraw 4.3 mmol/L (3.5-5.0)
[2020-09-10] MEDS ORDERED: Magnesium Hydroxide LIQ 30 ML UDC PO PRN (14:42)
[2020-09-10] MEDS ORDERED: Ondansetron 4 mg VIAL 2 MG/ML 2 ml VIAL IV PRN (14:42)
[2020-09-10] MEDS ORDERED: Polyethylene Glycol 3350 17 GM PACKET PO PRN (14:46)
[2020-09-10 15:16] LABS: % Iron Saturation 8 % (15-55); Iron 36 ug/dL (50-212); Total Iron Binding Capacity 444 mcg/dL (250-450); Transferrin 317 mg/dL (203-362); Unsaturated Iron Binding < 429 ug/dL
[2020-09-10 15:26] LABS: Total T3 43 ng/dL (87-178)
[2020-09-10 15:27] LABS: Thyroid Peroxidase Antibodies 69.97 IU/mL (<9)
[2020-09-10] MEDS ORDERED: Dextrose 50% Syringe 50 ml 25 GM/50 ML SYRINGE IV PUSH PRN (15:27)
[2020-09-10 15:37] LABS: Ferritin 60.1 ng/mL (24-336)
[2020-09-10 15:40] LABS: Vitamin B12 328 pg/mL (180-914)
[2020-09-10 15:41] LABS: Folate > 20.00 ng/mL (5.90-24.80)
[2020-09-10 16:02] LABS: Thyroglobulin Antibody II > 200.0 IU/mL (<4.0)
[2020-09-10] MEDS ORDERED: Albuterol HFA INHALER 8 gm MDI INH PRN (16:23)
[2020-09-10] MEDS: Enoxaparin 40 MG/0.4 ML SYR SUBCUT SCH (17:52)
[2020-09-10] MEDS: Mometasone/Formoter 100/5 MDI INH SCH (19:32)
[2020-09-10] MEDS: NS 0.9% 1000 ml BAG 1,000 ML IV SCH (19:45)
[2020-09-10] MEDS ORDERED: Morphine ER 15 mg TAB ** extended release PO SCH (21:00)
[2020-09-10] MEDS: Pentoxifylline CR 400 mg TAB 400 MG PO SCH (21:51)
[2020-09-10] MEDS: Sucralfate 1 gm SUSP 1 GM/10 ML UDC PO SCH (21:53)
[2020-09-10] MEDS: Insulin GLARGINE 100 un/ml 10 ml VIAL SUBCUT SCH (21:53)
[2020-09-11] MEDS: NS 0.9% 1000 ml BAG 1,000 ML IV SCH (05:09)
[2020-09-11 06:29] LABS: ABS Basophils 0.1 10^3/ul (0-0.2); ABS Eosinophils 0.2 10^3/ul (0-0.6); ABS Lymphocytes 0.7 10^3/ul (1.0-4.8); ABS Monocytes 0.6 10^3/ul (0-0.8); Hematocrit 36 % (42-52); Lymphocyte % 9.8 %; Mean Corpuscular HGB Conc 33 g/dL (31-36); Mean Corpuscular Hemoglobin 29 pg (27-31); Mean Corpuscular Volume 87 fL (80-94); Mean Platelet Volume 7.7 fL (7.4-10.4); Nucleated Red Blood Cells % 0.1; Platelet Count 186 10^3/uL (150-450); Red Blood Count 4.15 10^6 /uL (4.18-5.48); Red Cell Distribution Width 16 % (10-15); White Blood Count 7.6 10^3/uL (3.5-10.8)
[2020-09-11 06:55] LABS: Calcium 8.8 mg/dL (8.6-10.3); EGFR African American 74.2 (>60); EGFR Non-African American 61.3 (>60); Potassium 3.8 mmol/L (3.5-5.0)
[2020-09-11] MEDS: Pentoxifylline CR 400 mg TAB 400 MG PO SCH ×3 (08:14→23:03)
[2020-09-11] MEDS: Sucralfate 1 gm SUSP 1 GM/10 ML UDC PO SCH ×4 (08:18→22:51)
[2020-09-11] MEDS: Mometasone/Formoter 100/5 MDI INH SCH ×2 (09:08→19:31)
[2020-09-11] MEDS ORDERED: Cyanocobalamin INJ 1,000 MCG/ML VIAL 1 ML VIAL IM SCH (10:00)
[2020-09-11] MEDS: Enoxaparin 40 MG/0.4 ML SYR SUBCUT SCH (13:13)
[2020-09-11] MEDS: Insulin GLARGINE 100 un/ml 10 ml VIAL SUBCUT SCH (22:51)
[2020-09-12] MEDS: Morphine ER 15 mg TAB ** extended release PO PRN ×2 (01:37→22:57)
[2020-09-12] MEDS: Mometasone/Formoter 100/5 MDI INH SCH ×2 (07:18→19:41)
[2020-09-12 07:19] LABS: ABS Eosinophils 0.2 10^3/ul (0-0.6); ABS Monocytes 0.5 10^3/ul (0-0.8); ABS Neutrophils 3.3 10^3/ul (1.5-7.7); Eosinophil % 3.8 %; Hematocrit 34 % (42-52); Hemoglobin 11.5 g/dL (14.0-18.0); Lymphocyte % 20.7 %; Mean Corpuscular HGB Conc 34 g/dL (31-36); Mean Corpuscular Hemoglobin 29 pg (27-31); Mean Corpuscular Volume 87 fL (80-94); Mean Platelet Volume 7.4 fL (7.4-10.4); Platelet Count 181 10^3/uL (150-450); Red Blood Count 3.93 10^6 /uL (4.18-5.48); Red Cell Distribution Width 16 % (10-15)
[2020-09-12] MEDS: Sucralfate 1 gm SUSP 1 GM/10 ML UDC PO SCH ×4 (07:26→22:39)
[2020-09-12] MEDS: Carbidopa/Levodop 25/100 MG TAB PO SCH ×3 (10:08→22:37)
[2020-09-12] MEDS: Pentoxifylline CR 400 mg TAB 400 MG PO SCH ×3 (10:08→22:39)
[2020-09-12] MEDS: Enoxaparin 40 MG/0.4 ML SYR SUBCUT SCH ×2 (15:10→15:16)
[2020-09-12] MEDS: Insulin GLARGINE 100 un/ml 10 ml VIAL SUBCUT SCH (22:36)
[2020-09-13] MEDS: Mometasone/Formoter 100/5 MDI INH SCH ×2 (08:29→19:30)
[2020-09-13] MEDS: Sucralfate 1 gm SUSP 1 GM/10 ML UDC PO SCH ×4 (09:16→22:32)
[2020-09-13] MEDS: Pentoxifylline CR 400 mg TAB 400 MG PO SCH ×3 (09:16→22:27)
[2020-09-13] MEDS: Carbidopa/Levodop 25/100 MG TAB PO SCH ×2 (09:18→12:52)
[2020-09-13] MEDS: Morphine ER 15 mg TAB ** extended release PO PRN ×2 (10:01→22:31)
[2020-09-13] MEDS: Enoxaparin 40 MG/0.4 ML SYR SUBCUT SCH (15:17)
[2020-09-13] MEDS: Insulin GLARGINE 100 un/ml 10 ml VIAL SUBCUT SCH (22:12)
[2020-09-14] MEDS: Sucralfate 1 gm SUSP 1 GM/10 ML UDC PO SCH ×4 (08:10→21:37)
[2020-09-14] MEDS: Pentoxifylline CR 400 mg TAB 400 MG PO SCH ×3 (08:10→21:37)
[2020-09-14] MEDS: Morphine ER 15 mg TAB ** extended release PO PRN ×2 (08:16→21:36)
[2020-09-14] MEDS: Mometasone/Formoter 100/5 MDI INH SCH ×2 (09:32→19:40)
[2020-09-14] MEDS: Enoxaparin 40 MG/0.4 ML SYR SUBCUT SCH (13:17)
[2020-09-14] MEDS ORDERED: Senna TAB 8.6 mg TAB PO PRN (15:35)
[2020-09-14] MEDS ORDERED: Sodium Phosphate ADULT ENEMA 133 ML BTL PR ONE (16:42)
[2020-09-14] MEDS: Insulin GLARGINE 100 un/ml 10 ml VIAL SUBCUT SCH (21:40)
[2020-09-15] MEDS: Mometasone/Formoter 100/5 MDI INH SCH (07:50)
[2020-09-15] MEDS: Sucralfate 1 gm SUSP 1 GM/10 ML UDC PO SCH (09:13)
[2020-09-15] MEDS: Pentoxifylline CR 400 mg TAB 400 MG PO SCH ×2 (09:20→12:54)
[2020-09-15] MEDS: Morphine ER 15 mg TAB ** extended release PO PRN (09:20)
[2020-09-15 11:11] VITALS: BP 118/55
[2020-09-15 14:50] LABS: Kappa Free Light Chain 4.74 mg/dL; Lambda Free Light Chain, S 2.98 mg/dL
[2020-09-16 16:54] LABS: Albumin 2.6 g/dL (3.4-4.7); Albumin/Globulin Ratio 0.85; Gamma Globulin 0.7 g/dL (0.6-1.6); Total Protein(PEP) 5.6 g/dL (6.3 - 7.9)
[2020-09-16 16:56] LABS: Urine Kappa Total Light Chain 4.62 mg/dL (<0.9000); Urine Kappa/Lambda Light Chain 3.92
[2020-09-18 12:49] LABS: Albumin/Globulin Ratio 0.43; Gamma Globulin 64.6 mg/24 h; Total Protein Urine 380 mg/24 h (<229); Urine Volume 950 mL
== END 2020-09-15 15:45 ==
LOC: MED 11:01 → ED 11:01 → INTOOBSV 14:42 → OBSVTOIN 14:42 → MED 16:13
PROVIDERS: ADMIT Internal Medicine; ATTEND Hospitalist